=== PATIENT | male | born 1965 | race Hispanic/Latino ===

== ENCOUNTER 2023-09-02 11:42 | Inpatient (IN) | payer OTHER, SELFPAY ==
--- NOTE | 2023-09-02 12:24 | RAD REPORT ---
EXAM DESCRIPTION: Db Single View09/02/2023 12:08 pm CLINICAL HISTORY: Chest pain COMPARISON: none FINDINGS: The lungs appear clear of acute infiltrate. The heart is normal size IMPRESSION: No acute abnormalities displayed
[2023-09-02 12:51] LABS: Absolute Basophils 0.1 K/uL (0-0.5); Absolute Lymphocytes (CBC) 0.9 K/uL (0.7-4.9); Absolute Neutrophil 15.2 K/uL (1.8-8.0); Basophils % 0.3 % (0-1.3); Hematocrit 36.8 % (39.6-49.0); Lymphocytes % 5.1 % (15.3-44.8); MCH 29.4 pg (27.0-35.0); MCHC 32.7 g/dL (32.0-36.0); MCV 90.1 fL (80-100); MPV 7.3 fL (7.6-11.3); Monocytes % 5.7 % (3.3-12.3); Neutrophils % 88.9 % (41.7-73.7); Platelets 372 thou/uL (152-406); RBC Red Blood Cell Count 4.08 M/uL (4.33-5.43); Red Cell Distribution Width 12.5 % (12.1-15.2)
[2023-09-02 12:57] LABS: PT Prothrombin Time 12.7 SECONDS (9.5-12.5); Protime INR 1.16
[2023-09-02 13:14] LABS: ALT/SGPT 16 U/L (16-61); Albumin 3.5 g/dL (3.4-5.0); Albumin/Globulin Ratio 0.7 (1.1-1.8); Alkaline Phosphatase 98 U/L (45-117); Anion Gap 10.2 mEq/L (5.0-15.0); BUN Blood Urea Nitrogen 28 mg/dL (7-18); Bicarbonate 28 mEq/L (21-32); Bilirubin Direct 0.2 mg/dL (0-0.2); Bilirubin Indirect, Calculated 0.6 mg/dL (0.2-0.8); Bilirubin Total 0.8 mg/dL (0.2-1.0); Globulin 4.8 g/dL (2.3-3.5); Glomerular Filtration Rate 48 ml/min (=/>90); Glucose Level 191 mg/dL (74-106); Lipase 37 U/L (13-75); Magnesium 1.9 mg/dL (1.6-2.4); NT PRO-BNP 1099 pg/mL (<125); Potassium 4.2 mEq/L (3.5-5.1); Protein, Total 8.3 g/dL (6.4-8.2); Sodium Level 134 mEq/L (136-145); Troponin High Sensitivity 19.1 pg/mL (<58.9)
[2023-09-02 13:20] LABS: Blood Morphology Comment NOT SEEN (NOT SEEN); Platelet Estimate ADEQ; White Blood Cell Scan OK (OK)
[2023-09-02 13:22] LABS: AST/SGOT < 10 U/L (15-37)
[2023-09-02] MEDS ORDERED: NA CHLORIDE 0.9% 1,000 ML ONE (14:11)
[2023-09-02] MEDS ORDERED: NA CHLORIDE 0.9% 100 ML ONE (14:11)
[2023-09-02] MEDS ORDERED: FAMOTIDINE 20 MG/2 ML VIAL IV ONE (14:11)
[2023-09-02] MEDS ORDERED: PIPERACIL/TAZO 3.375 GM VIAL IV ONE (14:12)
--- NOTE | 2023-09-02 14:50 | EDPHYS ---
Physician Documentation [facility] Name: Johnnie Maldonado Age: 58 yrs Sex: Male : 1965 Arrival Date: 09/02/2023 Time: 11:42 Bed 13 Private MD: ED Physician Salvatore Doherty HPI: 09/01 14:31 This 58 yrs old Male presents to ER via EMS with complaints of Abdominal Pain. maria a 14:31 This 58 yrs old Male presents to ER via EMS with complaints of Abdominal Pain. maria a 14:31 The patient presents with abdominal pain in the upper abdomen, in the lower abdomen, maria a abdominal distention in the upper abdomen, in the lower abdomen. Onset: The symptoms/episode began/occurred 3 day(s) ago. The symptoms do not radiate. Associated signs and symptoms: Pertinent positives: dysuria, nausea. Modifying factors: The symptoms are alleviated by nothing, the symptoms are aggravated by movement, pressure. Severity of pain: At its worst the pain was moderate in the emergency department the pain is unchanged. Historical: - Allergies: 11:54 No Known Allergies; aa5 - PMHx: 11:54 Diabetes mellitus; aa5 11:55 Urinary Incontinence; aa5 - Immunization history:: Adult Immunizations unknown. - Infectious Disease History:: Denies. - Social history:: Smoking status: Patient denies any tobacco usage or history of. - Family history:: not pertinent. ROS: 14:31 Constitutional: Negative for fever, chills, and weight loss, Eyes: Negative for injury, maria a pain, redness, and discharge, ENT: Negative for injury, pain, and discharge, Neck: Negative for injury, pain, and swelling, Cardiovascular: Negative for chest pain, palpitations, and edema, Respiratory: Negative for shortness of breath, cough, wheezing, and pleuritic chest pain, Back: Negative for injury and pain, MS/Extremity: Negative for injury and deformity, Skin: Negative for injury, rash, and discoloration, Neuro: Negative for headache, weakness, numbness, tingling, and seizure, Psych: Negative for depression, anxiety, suicide ideation, homicidal ideation, and hallucinations, Allergy/Immunology: Negative for hives, rash, and allergies, Endocrine: Negative for neck swelling, polydipsia, polyuria, polyphagia, and marked weight changes, Hematologic/Lymphatic: Negative for swollen nodes, abnormal bleeding, and unusual bruising, 14:31 Abdomen/GI: Positive for abdominal pain, of the suprapubic area, right lower quadrant and left lower quadrant, 14:31 : Positive for urinary symptoms, urinary frequency, small amounts, difficulty urinating, Exam: 14:31 Constitutional: This is a well developed, well nourished patient who is awake, alert, maria a and in no acute distress. Head/Face: Normocephalic, atraumatic. Eyes: Pupils equal round and reactive to light, extra-ocular motions intact. Lids and lashes normal. Conjunctiva and sclera are non-icteric and not injected. Cornea within normal limits. Periorbital areas with no swelling, redness, or edema. ENT: Nares patent. No nasal discharge, no septal abnormalities noted. Tympanic membranes are normal and external auditory canals are clear. Oropharynx with no redness, swelling, or masses, exudates, or evidence of obstruction, uvula midline. Mucous membranes moist. Neck: Trachea midline, no thyromegaly or masses palpated, and no cervical lymphadenopathy. Supple, full range of motion without nuchal rigidity, or vertebral point tenderness. No Meningismus. Chest/axilla: Normal chest wall appearance and motion. Nontender with no deformity. No lesions are appreciated. Cardiovascular: Regular rate and rhythm with a normal S1 and S2. No gallops, murmurs, or rubs. Normal PMI, no JVD. No pulse deficits. Respiratory: Lungs have equal breath sounds bilaterally, clear to auscultation and percussion. No rales, rhonchi or wheezes noted. No increased work of breathing, no retractions or nasal flaring. Back: No spinal tenderness. No costovertebral tenderness. Full range of motion. Male : Normal genitalia with no discharge or lesions. Skin: Warm, dry with normal turgor. Normal color with no rashes, no lesions, and no evidence of cellulitis. MS/ Extremity: Pulses equal, no cyanosis. Neurovascular intact. Full, normal range of motion. Neuro: Awake and alert, GCS 15, oriented to person, place, time, and situation. Cranial nerves II-XII grossly intact. Motor strength 5/5 in all extremities. Sensory grossly intact. Cerebellar exam normal. Normal gait. Psych: Awake, alert, with orientation to person, place and time. Behavior, mood, and affect are within normal limits. Vital Signs: 11:53 BP 174 / 109; Pulse 102; Resp 19 S; Temp 99.7(O); Pulse Ox 96% on R/A; Weight 53.98 kg aa5 (R); Height 5 ft. 3 in. (R); 13:00 BP 174 / 109; Pulse 116; Resp 18; Pulse Ox 100% ; cp4 14:00 BP 188 / 109; Pulse 121; Resp 18; Pulse Ox 100% ; cp4 15:00 BP 188 / 114; Pulse 115; Resp 18; Pulse Ox 100% ; cp4 16:00 BP 184 / 109; Pulse 114; Resp 18; Pulse Ox 99% ; cp4 11:53 Body Mass Index 21.08 (53.98 kg, 160.02 cm) aa5 MDM: 11:55 Patient medically screened. maria a 14:41 Differential diagnosis: bowel obstruction, Cholelithiasis, diverticulitis, gastritis, maria a non-specific abd pain, pancreatitis, Peptic Ulcer Disease, Prostatitis, Pyelonephritis, Ureterolithiasis. Data reviewed: vital signs, nurses notes, EMS record, lab test result(s), EKG, radiologic studies, CT scan, plain films. Consideration of Admission/Observation Patient was admitted/placed on observation. Escalation of care including admission/observation considered. I considered the following discharge prescriptions or medication management in the emergency department Medications were administered in the Emergency Department. See MAR. Independent interpretation of the following test(s) in the Emergency Department EKG: See my EKG interpretation above. Test considered but Not performed: Ultrasound no abd usg. Historians other than the Patient: pt well informed. Care significantly affected by the following chronic conditions: Diabetes, urinary retention. Counseling: I had a detailed discussion with the patient and/or guardian regarding the historical points, exam findings, and any diagnostic results supporting the discharge/admit diagnosis, lab results, radiology results, the need for further work-up and treatment in the hospital. 09/01 11:57 Order name: Basic Metabolic Panel; Complete Time: 13:42 [facility] 09/01 11:57 Order name: CBC with Diff; Complete Time: 13:42 [facility] 09/01 11:57 Order name: LFT's; Complete Time: 13:42 [facility] 09/01 11:57 Order name: Magnesium; Complete Time: 13:42 [facility] 09/01 11:57 Order name: NT PRO-BNP; Complete Time: 13:42 [facility] 09/01 11:57 Order name: PT-INR; Complete Time: 13:42 [facility] 09/01 11:57 Order name: Troponin HS; Complete Time: 13:42 [facility] 09/01 11:57 Order name: Lipase; Complete Time: 13:42 [facility] 09/01 11:57 Order name: Urinalysis w/ reflexes [facility] 09/01 12:57 Order name: CBC Smear Scan; Complete Time: 13:42 [facility] 09/01 15:32 Order name: Urine Culture [facility] 09/01 15:42 Order name: Urinalysis w/ reflexes [facility] 09/01 11:57 Order name: XRAY Chest (1 view); Complete Time: 13:42 [facility] 09/01 11:57 Order name: CT Abd/Pelvis - IV Contrast Only [facility] 09/01 11:57 Order name: EKG; Complete Time: 11:57 [facility] 09/01 11:57 Order name: Cardiac monitoring; Complete Time: 12:28 [facility] 09/01 11:57 Order name: EKG - Nurse/Tech; Complete Time: 12:28 [facility] 09/01 11:57 Order name: IV Saline Lock; Complete Time: 13:48 [facility] 09/01 11:57 Order name: Labs collected and sent; Complete Time: 13:48 [facility] 09/01 11:57 Order name: O2 Per Protocol; Complete Time: 12:28 [facility] 09/01 11:57 Order name: O2 Sat Monitoring; Complete Time: 12:28 [facility] Administered Medications: 14:00 Drug: Piperacillin-Tazobactam IVPB 3.375 grams IVPB once over 60 mins; (mix in NS 100 cp4 mL) Route: IVPB; Infused Over: 60 mins; Site: left forearm; 15:10 Follow up: Response: No adverse reaction; IV Status: Completed infusion cp4 14:15 Drug: NS 0.9% IV 1000 ml IV at 1 bolus Per protocol; 1000 mL bolus Route: IV; Rate: 1 cp4 bolus; Site: left forearm; 15:09 Follow up: Response: No adverse reaction; IV Status: Completed infusion cp4 14:15 Drug: Famotidine IVP 20 mg IVP once; dilute with 10 mL 0.9% NaCl; give over 2 minutes cp4 Route: IVP; Site: left forearm; 15:22 Follow up: Response: No adverse reaction cp4 14:15 Drug: NS 0.9% IV 1000 ml IV at 125 ml/hr continuous Route: IV; Rate: 125 ml/hr; Site: cp4 left forearm; 15:24 Drug: Rocephin IV 1 grams IV at per protocol once; Given slow IV push per pharmacy cp4 instructions Route: IV; Rate: per protocol; Site: left forearm; 15:52 Follow up: Response: No adverse reaction; IV Status: Completed infusion cp4 15:24 Drug: Flomax PO 0.4 mg PO Per protocol Route: PO; cp4 15:52 Follow up: Response: No adverse reaction cp4 Disposition Summary: 09/02/23 14:50 Hospitalization Ordered Notes: Hospitalization Status: Observation maria a Provider: Abelino Taylor cha Location: Telemetry/MedSurg (observation) maria a Condition: Fair maria a Problem: new maria a Symptoms: have improved maria a Bed/Room Type: Standard [facility] Room Assignment: 208(09/02/23 16:07) aa5 Diagnosis - Abdominal pain, Generalized maria a - Other retention of urine maria a - Fever, unspecified maria a - Weakness maria a - Elevated white blood cell count maria a Forms: - Medication Reconciliation Form maria a - SBAR form maria a - Leadership Thank You Letter maria a Signatures: Dispatcher [employer] Salvatore Garcia MD MD cha Calderon, Audri, RN RN aa5 Veronica Gonzalez cp4 Corrections: (The following items were deleted from the chart) 11:57 11:57 Abdomen Pelvis W Con+CT.RAD.BRZ ordered. MARGARETAR EDAR 16:01 14:50 maria a aa5 16:07 16:01 [facility] aa5 aa5
--- NOTE | 2023-09-02 14:50 | ER ---
Nurse's Notes [facility] Name: Johnnie Maldonado Age: 58 yrs Sex: Male : 1965 Arrival Date: 09/02/2023 Time: 11:42 Bed 13 Private MD: Diagnosis: Abdominal pain, Generalized;Other retention of urine;Fever, unspecified;Weakness;Elevated white blood cell count Presentation: 09/01 11:53 Chief complaint: Patient states: abd pain, seen in [place] ER recently. [facility] aa5 reports FSBG 176. 11:53 Acuity: DONTE 3 aa5 11:53 Method Of Arrival: EMS: [facility] aa5 11:53 Coronavirus screen: At this time, the client does not indicate any symptoms associated aa5 with coronavirus-19. Ebola Screen: Patient denies travel to an Ebola-affected area in the 21 days before illness onset. Initial Sepsis Screen: Does the patient meet any 2 criteria? HR > 90 bpm. Does the patient have a suspected source of infection? No. Patient's initial sepsis screen is negative. Risk Assessment: Do you want to hurt yourself or someone else? Patient reports no desire to harm self or others. Onset of symptoms was 2023. Historical: - Allergies: 11:54 No Known Allergies; aa5 - PMHx: 11:54 Diabetes mellitus; aa5 11:55 Urinary Incontinence; aa5 - Immunization history:: Adult Immunizations unknown. - Infectious Disease History:: Denies. - Social history:: Smoking status: Patient denies any tobacco usage or history of. - Family history:: not pertinent. Screenin:00 [facility] ED Fall Risk Assessment (Adult) History of falling in the last 3 months, cp4 including since admission No falls in past 3 months (0 pts) Confusion or Disorientation No (0 pts) Intoxicated or Sedated No (0 pts) Impaired Gait No (0 pts) Mobility Assist Device Used No (0 pt) Altered Elimination No (0 pt) Score/Fall Risk Level 0 - 2 = Low Risk Oriented to surroundings, Maintained a safe environment, Assessed \T\ reinforced patient's understanding of fall precautions, Hourly rounding (assess needs \T\ fall precautionary measures) done. Abuse screen: Denies threats or abuse. Nutritional screening: No deficits noted. Tuberculosis screening: No symptoms or risk factors identified. Assessment: 14:00 General: Appears distressed, Behavior is appropriate for age, agitated, anxious. Pain: cp4 Pain currently is 10 out of 10 on a pain scale. 14:00 GI: Bowel sounds present X 4 quads. Abd is rigid in right lower quadrant and left lower cp4 quadrant. : Last void was September 01, 2023. Bladder is distended. Vital Signs: 11:53 BP 174 / 109; Pulse 102; Resp 19 S; Temp 99.7(O); Pulse Ox 96% on R/A; Weight 53.98 kg aa5 (R); Height 5 ft. 3 in. (R); 13:00 BP 174 / 109; Pulse 116; Resp 18; Pulse Ox 100% ; cp4 14:00 BP 188 / 109; Pulse 121; Resp 18; Pulse Ox 100% ; cp4 15:00 BP 188 / 114; Pulse 115; Resp 18; Pulse Ox 100% ; cp4 16:00 BP 184 / 109; Pulse 114; Resp 18; Pulse Ox 99% ; cp4 11:53 Body Mass Index 21.08 (53.98 kg, 160.02 cm) aa5 ED Course: 11:53 Patient arrived in ED. aa5 11:53 Arm band placed on Patient placed in an exam room, on a stretcher. aa5 11:55 Salvatore Doherty MD is Attending Physician. [facility] 11:56 Triage completed. aa5 11:58 Veronica Gonzalez is Primary Nurse. cp4 12:10 XRAY Chest (1 view) In Process Unspecified. EDMS 13:53 CT Abd/Pelvis - IV Contrast Only In Process Unspecified. EDMS 14:00 Placed in gown. Bed in low position. Call light in reach. Side rails up X2. Provided cp4 Education on: bladder distention and jensen catheter.. 14:00 No provider procedures requiring assistance completed. Inserted saline lock: 22 gauge cp4 in left forearm, using aseptic technique. Missed attempt(s): 20 gauge in right antecubital area. 14:00 Initial lab(s) drawn, by al, sent to lab. Urine collected: Jensen catheter specimen. cp4 Jensen cath inserted, using sterile technique, 16 Fr., by me, balloon inflated, urine specimen collected. 14:49 Abelino Taylor MD is Hospitalizing Provider. maria a 17:16 Patient admitted, IV remains in place. cp4 Administered Medications: 14:00 Drug: Piperacillin-Tazobactam IVPB 3.375 grams IVPB once over 60 mins; (mix in NS 100 cp4 mL) Route: IVPB; Infused Over: 60 mins; Site: left forearm; 15:10 Follow up: Response: No adverse reaction; IV Status: Completed infusion cp4 14:15 Drug: NS 0.9% IV 1000 ml IV at 1 bolus Per protocol; 1000 mL bolus Route: IV; Rate: 1 cp4 bolus; Site: left forearm; 15:09 Follow up: Response: No adverse reaction; IV Status: Completed infusion cp4 14:15 Drug: Famotidine IVP 20 mg IVP once; dilute with 10 mL 0.9% NaCl; give over 2 minutes cp4 Route: IVP; Site: left forearm; 15:22 Follow up: Response: No adverse reaction cp4 14:15 Drug: NS 0.9% IV 1000 ml IV at 125 ml/hr continuous Route: IV; Rate: 125 ml/hr; Site: cp4 left forearm; 15:24 Drug: Rocephin IV 1 grams IV at per protocol once; Given slow IV push per pharmacy cp4 instructions Route: IV; Rate: per protocol; Site: left forearm; 15:52 Follow up: Response: No adverse reaction; IV Status: Completed infusion cp4 15:24 Drug: Flomax PO 0.4 mg PO Per protocol Route: PO; cp4 15:52 Follow up: Response: No adverse reaction cp4 Medication: 14:00 VIS not applicable for this client. cp4 Output: 15:00 Urine: 1000ml (Jensen); Total: 1000ml. cp4 15:00 Urine: 1000ml (Jensen); Total: 2000ml. cp4 15:00 Urine: 1000ml (Jensen); Total: 3000ml. cp4 17:07 Urine: 2000ml (Jensen); Total: 5000ml. cp4 Outcome: 14:50 Decision to Hospitalize by Provider. maria a 17:16 Admitted to Med/surg accompanied by tech, via wheelchair, with chart, cp4 17:16 Condition: stable 17:16 Instructed on the need for admit, Demonstrated understanding of instructions, follow-up care, 17:17 Patient left the ED. cp4 Signatures: Dispatcher [employer] Salvatore Garcia MD MD cha Calderon, Audri, RN RN aa5 Veronica Gonzalez cp4 Corrections: (The following items were deleted from the chart) 11:56 11:53 Chief complaint: Patient states: abd pain, seen in [facility] recently. aa5 aa5
--- NOTE | 2023-09-02 15:11 | RAD REPORT ---
EXAM DESCRIPTION: CT - Abdomen Pelvis W Contrast - 09/02/2023 1:51 pm CLINICAL HISTORY: ABD PAIN COMPARISON: No comparisons TECHNIQUE: Thin cut axial CT imaging of the abdomen and pelvis was performed following intravenous a dministration of 75 mL Isovue 300. Multiplanar reformats were generated and reviewed. All CT scans are performed using dose optimization technique as appropriate and may include automated exposure control or mA/KV adjustment according to patient size. FINDINGS: No suspicious findings in the lung bases. The liver, spleen, adrenal glands, and pancreas show no suspicious findings. Gallbladder and biliary tree are also without suspicious finding. Moderate left and severe right hydroureteronephrosis. Moderately pronounced urothelial enhancement al halle the right renal pelvis and right more than left proximal ureter. Perinephric edema along the lowe r poles of both kidneys. Mildly heterogeneous enhancement of the cortex at the left lower pole. Left lower pole 4.8 x 4.7 cm cystic lesion with thin septal enhancement. Simple appearing right lower pole 1.5 cm cyst. No radiopaque calculi No dilated bowel loops or bowel wall thickening. No free air, free fluid or inflammatory stranding. N o hernia, mass or bulky lymphadenopathy. The urinary bladder is markedly distended, without focal wal l abnormalities. Healing lateral left tenth rib fracture. No other suspicious bony findings. IMPRESSION: Bilateral hydroureteronephrosis and markedly distended urinary bladder, findings which m ay relate to retrograde ureteral reflux. No evidence of obstructing calculi. Bilateral perinephric edema along the lower poles. Moderately pronounced urothelial enhancement along the right renal pelvis and right more than left proximal ureter. Subtle heterogeneous enhancement of the left lower pole renal cortex. Findings raise concern for pyelonephritis in the appropriate clini breanne setting. Other incidental findings as above.
[2023-09-02] MEDS ORDERED: TAMSULOSIN 0.4 MG SR CAP ONE (15:13)
[2023-09-02] MEDS ORDERED: CEFTRIAXONE 1000 MG/VIAL ONE (15:13)
[2023-09-02 15:29] LABS: Specific Gravity 1.009 (1.005-1.030); Sqamous Epithelial None Seen /HPF (None Seen); Urine Bacteria <20 /HPF (<20); Urine Bilirubin NEGATIVE (Negative); Urine Blood 3+ (Negative); Urine Clarity Turbid (Clear); Urine Color Colorless (Yellow); Urine Crystals Unidentified Few /HPF (None Seen); Urine Culture Reflex Order REFLEXED; Urine Glucose TRACE (Negative); Urine Ketones NEGATIVE (Negative); Urine Microscopic Reflex YN ORDER UMIC; Urine Nitrite NEGATIVE (Negative); Urine Protein NEGATIVE (Negative); Urine RBC 21-50 /HPF (None Seen); Urine Urobilinogen Normal (Normal); Urine WBC 20-50 /HPF (<5); Urine pH 7.5 (5.0-7.0)
[2023-09-02] MEDS ORDERED: METOPROLOL TARTRATE 5 MG/5 ML INJ IV PRN (16:20)
[2023-09-02] MEDS ORDERED: ONDANSETRON 4 MG/2 ML VIAL IV PRN (16:20)
--- NOTE | 2023-09-02 16:27 | P.HP ---
Certification for Inpatient With expected LOS: <2 Midnights Patient will require the following post-hospital care: None Practitioner: I am a practitioner with admitting privileges, knowledge of patient current condition, hospital course, and medical plan of care. Services: Services provided to patient in accordance with Admission requirements found in Title 42 Section 412.3 of the Code of Federal Regulations <Audrey Cheung - Last Filed: 09/02/23 19:05> Patient History Date of Service: 09/02/23 Reason for admission: urinary retention History of Present Illness: Johnnie Maldonado is a 58 year old male with Pmhx Diabetes mellitus- NIDDM, urinary incontinence/retention who presents to the ED with chief complaint of abdominal pain and not being able to urinate for three days. He reports going to the [facility] ED on Wednesday (08/22) and being discharged home with a jensen catheter and flomax. He was then in half-way on (08/25) at which time the jensen catheter was "urinated out" per patient's statement. He has been a week without the catheter and now presents with abdominal pain and bladder distention. CT abd/pelvis reports "Moderate left and severe right hydroureteronephrosis. Moderately pronounced urothelial enhancement along the right renal pelvis and right more than left proximal ureter. Perinephric edema along the lower poles of both kidneys. Mildly heterogeneous enhancement of the cortex at the left lower pole. Left lower pole 4.8 x 4.7 cm cystic lesion with thin septal enhancement. Simple appearing right lower pole 1.5 cm cyst. No radiopaque calculi. Bilateral hydroureteronephrosis and markedly distended urinary bladder, findings which may relate to retrograde ureteral reflux. No evidence of obstructing calculi. Bilateral perinephric edema along the lower poles. Moderately pronounced urothelial enhancement along the right renal pelvis and right more than left proximal ureter. Subtle heterogeneous enhancement of the left lower pole renal cortex. Findings raise concern for pyelonephritis in the appropriate clinical setting." Initial vitals: BP 174 / 109; Pulse 102; Resp 19 S; Temp 99.7(O); Pulse Ox 96% on R/A; Laboratory evaluation Na 134, K 4.2, BUN/creatinine 28/1.66, GFR 48, serum glucose 191, BNP 1099 Johnnie will be admitted to hospitalist service for further evaluation and treatment of bilateral hydroureteronephrosis and UTI. - Past Medical/Surgical History -: Diabetes mellitusNIDDM -: Urinary incontinence -: Urinary retention Past Surgical History: Reviewed- Non-Contributory - Family History Family History: Reviewed- Non-Contributory - Social History Smoking Status: Never smoker Alcohol use: No CD- Drugs: No <Audrey Cheung - Last Filed: 09/02/23 19:05> Date of Service: 09/02/23 <Abelino Taylor - Last Filed: 09/02/23 22:25> Allergies No Known Allergies Allergy (Unverified 09/02/23 16:25) Home Medications: NK [No Home Meds] 09/02/23 Review of Systems Gastrointestinal: Abdominal Pain, Distention Genitourinary: Dysuria, Retention <Audrey Cheung - Last Filed: 09/02/23 19:05> Physical Examination - Physical Exam General: Alert, Oriented x3, Mild distress HEENT: Atraumatic, Normocephalic, PERRLA Neck: Supple, 2+ carotid pulse no bruit, JVD not distended Respiratory: Clear to auscultation bilaterally, Normal air movement Cardiovascular: No edema, Normal S1 S2, Irregular heart rate/rhythm (tachycardic) Capillary refill: <2 Seconds Gastrointestinal: Hypoactive Musculoskeletal: No swelling Integumentary: No rashes Neurological: Normal speech, Normal tone Urinary: Jensen catheter - Studies Laboratory Data (last 24 hrs) 09/02/23 09/02/23 09/02/23 12:40 12:40 12:40 WBC 17.10 H Hgb 12.0 L Hct 36.8 L Plt Count 372 PT 12.7 H INR 1.16 Sodium 134 L Potassium 4.2 BUN 28 H Creatinine 1.66 H Glucose 191 H Magnesium 1.9 Total Bilirubin 0.8 AST < 10 L ALT 16 Alkaline Phosphatase 98 Lipase 37 <Audrey Cheung - Last Filed: 09/02/23 19:05> - Studies Laboratory Data (last 24 hrs) 09/02/23 09/02/23 09/02/23 12:40 12:40 12:40 WBC 17.10 H Hgb 12.0 L Hct 36.8 L Plt Count 372 PT 12.7 H INR 1.16 Sodium 134 L Potassium 4.2 BUN 28 H Creatinine 1.66 H Glucose 191 H Magnesium 1.9 Total Bilirubin 0.8 AST < 10 L ALT 16 Alkaline Phosphatase 98 Lipase 37 <Abelino Taylor - Last Filed: 09/02/23 22:25> Assessment and Plan - Plan Assessment and Plan Bilateral hydroureteronephrosis Severe urinary retention Urinary tract infection ELIEZER Leukocytosis CT abd/pelvis reports "Moderate left and severe right hydroureteronephrosis" Tamulosin Rocephin Q 12 hr zosyn given in the ED Gentle IVF Jensen catheter in place- UOP > 5000, clear urine Pain control-[place], morphine follow urine cultures Recheck BMP at 1999 BNP 1099, BUN/creatinine 28/1.66, GFR 48, WBC 17.1 Hypertensive Initial BP 174/109 Hydralazine PRN Tachycardic likely secondary to fever Continuous telemetry Temp 99.9/99.7 Diabetes Mellitus Accucheck with SSI Serum glucose 191 DVT ppx heparin Full code LOS 2 days Discharge Plan: Home Plan to discharge in: 48 Hours - Advance Directives Does patient have a Living Will: No Does patient have a Durable POA for Healthcare: No <Audrey Cheung - Last Filed: 09/02/23 19:05> - Plan Patient seen in ED with TANK CAR MECHANIC Jonatan. Agree with plan of care as noted above with following additions/corrections: Pt with leukocytosis, tachycardia, and concern for UTI; no lactate drawn unclear / unlikely sepsis. tachycardia, leukocytosis, eliezer secondary to significant urinary retention. pt already noted to have nearly 3L UOP within 3hrs of jensen placement repeat bmp in evening, monitor for post-obstructive uropathy/diuresis continue IVF pain control empiric antibiotic Pt reports long history of urinary retention, dating back to at least 2013 - saw urology for prostate biopsy unable to answer besides "i don't know" when asked about what workup/treatment has been done in the past, and when asked what is the root cause eventually does agree that he has been told he has an enlarged prostate. Prescribed medications at [facility] last week when seen for similar issue and dc'd with meds and jensen. For unclear reasons, patient removed jensen last week never followed up states he was kicked out of wherever he was living and was unable to get his meds - unable to tell me any of names f/u urine culture anticipate dc home in ~2-3 days <Abelino Taylor - Last Filed: 09/02/23 22:25>
[2023-09-02] MEDS ORDERED: MORPHINE 4 MG/ML SYR IV PRN (16:28)
[2023-09-02] MEDS: INSULIN REGULAR (HUMAN) 100 UNIT/ML SQ SCH ×2 (16:30→22:24)
[2023-09-02] MEDS: HEPARIN 5000 UNIT/ML 1 ML VIAL SQ SCH (17:00)
[2023-09-02 17:38] VITALS: BMI 21.0
[2023-09-02] MEDS: NA CHLORIDE 0.9% 1,000 ML IV SCH (17:49)
[2023-09-02] MEDS: HYDRALAZINE HCL 20 MG/ML VIAL IV PRN (18:04)
[2023-09-02] MEDS: INSULIN REGULAR (HUMAN) 100 UNIT/ML ONE (18:09)
[2023-09-02] MEDS: ACETAMINOPHEN 325 MG TABLET PO PRN (18:12)
[2023-09-02] MEDS: CEFTRIAXONE 1,000 MG in NA CHLORIDE 0.9% 50 ML IVPB SCH (20:28)
[2023-09-02 20:47] LABS: Anion Gap 8.8 mEq/L (5.0-15.0); Magnesium 1.5 mg/dL (1.6-2.4); Potassium 3.8 mEq/L (3.5-5.1)
[2023-09-03 08:16] LABS: Absolute Basophils 0.1 K/uL (0-0.5); Absolute Lymphocytes (CBC) 1.2 K/uL (0.7-4.9); Absolute Monocytes 1.2 K/uL (0.1-1.3); Absolute Neutrophil 14.1 K/uL (1.8-8.0); Basophils % 0.3 % (0-1.3); Eosinophils % 0.1 % (0-4.4); Hematocrit 28.8 % (39.6-49.0); Hemoglobin 10.1 g/dL (13.6-17.9); Lymphocytes % 7.1 % (15.3-44.8); MCH 30.9 pg (27.0-35.0); MCHC 34.9 g/dL (32.0-36.0); MCV 88.4 fL (80-100); Monocytes % 7.2 % (3.3-12.3); Neutrophils % 85.3 % (41.7-73.7); Platelets 295 thou/uL (152-406); RBC Red Blood Cell Count 3.26 M/uL (4.33-5.43); Red Cell Distribution Width 12.4 % (12.1-15.2)
[2023-09-03] MEDS: TAMSULOSIN 0.4 MG SR CAP PO SCH (08:19)
[2023-09-03 08:37] LABS: Albumin 2.4 g/dL (3.4-5.0); Albumin/Globulin Ratio 0.6 (1.1-1.8); Alkaline Phosphatase 69 U/L (45-117); Anion Gap 6.3 mEq/L (5.0-15.0); BUN Blood Urea Nitrogen 15 mg/dL (7-18); Bicarbonate 29 mEq/L (21-32); Bilirubin Total 0.7 mg/dL (0.2-1.0); Globulin 3.9 g/dL (2.3-3.5); Glomerular Filtration Rate 102 ml/min (=/>90); Glucose Level 134 mg/dL (74-106); Magnesium 1.2 mg/dL (1.6-2.4); Potassium 3.3 mEq/L (3.5-5.1); Protein, Total 6.3 g/dL (6.4-8.2); Sodium Level 132 mEq/L (136-145)
[2023-09-03 08:41] LABS: ALT/SGPT < 14 U/L (16-61); AST/SGOT < 10 U/L (15-37)
[2023-09-03] MEDS: POTASSIUM CL SA 10 MEQ TAB PO ONE (10:51)
[2023-09-03] MEDS: Magnesium Sulfate 2gm IVPB 2 G/50 ML BAG IV ONE (10:51)
--- NOTE | 2023-09-03 17:05 | P.PN ---
Date of Service: 09/03/23 Subjective Awake and feeling better this morning This afternoon became febrile and tachycardic Continue IV antibiotics and IV fluids ROS 10 point ROS as noted above, otherwise negative Physical Exam General: AAOx3, NAD HEENT: Atraumatic, Normocephalic, PERRLA Neck: Supple, 2+ carotid pulse no bruit, JVD not distended Respiratory: Clear to auscultation bilaterally, symmetric chest wall movement Cardiovascular: No edema, S1 S2 present, Irregular heart rate/rhythm (tachycardic) Capillary refill: <2 Seconds Gastrointestinal: Bowel sounds present, soft and benign on palpation Musculoskeletal: No swelling, 2+ peripheral pulses present Integumentary: No rashes Neurological: Normal speech, Normal tone Urinary: Bae catheter Vitals Reviewed Problem list Bilateral hydroureteronephrosis Severe urinary retention Urinary tract infection ELIEZER Leukocytosis Hypomagnesemia Hypokalemia Hypertensive Tachycardic likely secondary to fever Diabetes Mellitus Assessment and Plan Bilateral hydroureteronephrosis Severe urinary retention Urinary tract infection ELIEZER- resolved Leukocytosis Hypomagnesemia CT abd/pelvis reports "Moderate left and severe right hydroureteronephrosis" Tamulosin Rocephin Q12 hr zosyn given in the ED Continue Gentle IVF Bae catheter in place- UOP 850 Pain control-[place], morphine Follow urine cultures- NGTD Recheck BMP at 1999 Initial BNP 1099, BUN/creatinine 28/1.66, GFR 48, WBC 17.1 WBC 16.6-slight improvement Magnesium 1.2 Hypokalemia Potassium 3.3 Replace as needed Hypertensive Initial BP 174/109 Hydralazine PRN Tachycardic likely secondary to fever Continuous telemetry Temp 101.3 Tylenol PRN Diabetes Mellitus Accucheck with SSI Serum glucose 134 DVT ppx heparin Full code LOS 2 days Discharge Plan: Home
[2023-09-03 17:20] LABS: Magnesium 1.7 mg/dL (1.6-2.4); Potassium 4.1 mEq/L (3.5-5.1)
[2023-09-03] MEDS: NA CHLORIDE 0.9% 1,000 ML IV SCH (17:33)
[2023-09-03 19:42] LABS: Absolute Eosinophils 0.1 K/uL (0-0.5); Absolute Lymphocytes (CBC) 0.9 K/uL (0.7-4.9); Absolute Monocytes 1.3 K/uL (0.1-1.3); Absolute Neutrophil 12.4 K/uL (1.8-8.0); Basophils % 0.2 % (0-1.3); Eosinophils % 0.5 % (0-4.4); Hematocrit 27.1 % (39.6-49.0); Hemoglobin 9.5 g/dL (13.6-17.9); Lymphocytes % 6.1 % (15.3-44.8); MCH 30.9 pg (27.0-35.0); MCHC 34.9 g/dL (32.0-36.0); MCV 88.6 fL (80-100); MPV 7.2 fL (7.6-11.3); Monocytes % 8.6 % (3.3-12.3); Neutrophils % 84.6 % (41.7-73.7); Platelets 284 thou/uL (152-406); RBC Red Blood Cell Count 3.06 M/uL (4.33-5.43); Red Cell Distribution Width 12.3 % (12.1-15.2)
[2023-09-04] MEDS: HYDROCODONE/APAP 5/325 MG TAB PO PRN (00:26)
--- NOTE | 2023-09-04 07:51 | P.PN ---
Date of Service: 09/04/23 Subjective Awake in breakfast this morning Reports having no insurance or income to support follow-up visit to urology or flower buncher or picker medications medications Afebrile tonight, hemodynamically stable ROS 10 point ROS as noted above, otherwise negative Physical Exam General: AAOx3, NAD, conversing well HEENT: Atraumatic, Normocephalic, PERRLA Neck: Supple, 2+ carotid pulse no bruit, JVD not distended Respiratory: Clear to auscultation bilaterally, symmetric chest wall movement, on RA Cardiovascular: No edema, S1 S2 present, Irregular heart rate/rhythm (mild tachycardia) Capillary refill: <2 Seconds Gastrointestinal: normal active Bowel sounds, soft and benign on palpation Musculoskeletal: No swelling, 2+ peripheral pulses present Integumentary: No rashes Neurological: Normal speech, Normal tone Urinary: Jensen catheter Vitals Reviewed Problem list Bilateral hydroureteronephrosis Severe urinary retention Urinary tract infection ELIEZER Leukocytosis Hypomagnesemia Hypokalemia Hypertensive Tachycardic likely secondary to fever Diabetes Mellitus Assessment and Plan Bilateral hydroureteronephrosis Severe urinary retention Urinary tract infection ELIEZER- resolved Leukocytosis- improved Hypomagnesemia CT abd/pelvis reports "Moderate left and severe right hydroureteronephrosis" Tamulosin Rocephin Q12 hr zosyn given in the ED Continue Gentle IVF Jensen catheter in place- UOP 850 Pain control-[place], morphine Follow urine cultures- mixed pawan Initial BNP 1099, BUN/creatinine 28/1.66, GFR 48, WBC 17.1 WBC 13.3- improving will need to discharge with jensen catheter Electrolyte imbalance Hypokalemia Hypomagnesemia Hyponatremia Potassium 3.6 Magnesium 1.5- replete Sodium 131-gentle IV fluids Replace as needed Hypertensive Initial BP 174/109 stable Hydralazine PRN Tachycardic likely secondary to fever Continuous telemetry afebrile OVN Tylenol PRN Diabetes Mellitus Accucheck with SSI Serum glucose 248 Semglee added DVT ppx heparin Full code Dispo: likely dc tomorrow Discharge Plan: Home
[2023-09-04 08:36] LABS: Absolute Eosinophils 0.3 K/uL (0-0.5); Absolute Lymphocytes (CBC) 0.9 K/uL (0.7-4.9); Absolute Monocytes 0.9 K/uL (0.1-1.3); Absolute Neutrophil 11.1 K/uL (1.8-8.0); Basophils % 0.3 % (0-1.3); Eosinophils % 2.3 % (0-4.4); Hematocrit 29.8 % (39.6-49.0); MCH 30.2 pg (27.0-35.0); MCHC 33.7 g/dL (32.0-36.0); MCV 89.6 fL (80-100); MPV 7.1 fL (7.6-11.3); Monocytes % 6.7 % (3.3-12.3); Neutrophils % 83.7 % (41.7-73.7); Platelets 314 thou/uL (152-406); RBC Red Blood Cell Count 3.32 M/uL (4.33-5.43); Red Cell Distribution Width 12.4 % (12.1-15.2)
[2023-09-04 08:49] LABS: Anion Gap 6.6 mEq/L (5.0-15.0); Magnesium 1.5 mg/dL (1.6-2.4); Potassium 3.6 mEq/L (3.5-5.1)
[2023-09-04] MEDS: INSULIN GLARGINE 100 UNIT/ML SQ SCH (20:46)
[2023-09-05] MEDS: MORPHINE 2 MG/ML SYR IV PRN (03:24)
[2023-09-05 03:42] LABS: Absolute Basophils 0.1 K/uL (0-0.5); Absolute Eosinophils 0.4 K/uL (0-0.5); Absolute Lymphocytes (CBC) 0.7 K/uL (0.7-4.9); Absolute Monocytes 0.9 K/uL (0.1-1.3); Absolute Neutrophil 7.8 K/uL (1.8-8.0); Basophils % 0.7 % (0-1.3); Eosinophils % 3.9 % (0-4.4); Hematocrit 27.1 % (39.6-49.0); Hemoglobin 9.6 g/dL (13.6-17.9); Lymphocytes % 7.2 % (15.3-44.8); MCH 31.1 pg (27.0-35.0); MCHC 35.3 g/dL (32.0-36.0); MCV 88.2 fL (80-100); MPV 7.9 fL (7.6-11.3); Monocytes % 9.1 % (3.3-12.3); Neutrophils % 79.1 % (41.7-73.7); Nucleated Red Blood Cells % 0.1 % (0-0); Platelets 315 thou/uL (152-406); RBC Red Blood Cell Count 3.08 M/uL (4.33-5.43); Red Cell Distribution Width 12.4 % (12.1-15.2)
[2023-09-05 03:48] LABS: Anion Gap 5.8 mEq/L (5.0-15.0); Magnesium 1.2 mg/dL (1.6-2.4); Phosphorus 2.4 mg/dL (2.5-4.9); Potassium 3.8 mEq/L (3.5-5.1)
[2023-09-05] MEDS: Magnesium Sulfate 2gm IVPB 2 G/50 ML BAG IV ONE (04:26)
[2023-09-05] MEDS: POTASS/SODIUM PHOSPHATE 1 PKT POWD.PACK PO SCH (08:38)
[2023-09-05] MEDS: INSULIN REGULAR (HUMAN) 100 UNIT/ML SQ SCH (12:13)
--- NOTE | 2023-09-05 15:51 | P.PN ---
Date of Service: 09/05/23 Subjective Awake and feeling well No new complaints Monitoring electrolytes imbalance ROS 10 point ROS as noted above, otherwise negative Physical Exam General: No acute distress, alert and oriented x 3, comfortable HEENT: Atraumatic, Normocephalic, PERRLA Neck: Supple, 2+ carotid pulse no bruit, JVD not distended Respiratory: symmetric chest wall movement, bilaterally clear breath sounds on RA Cardiovascular: normal S1 S2 present, regular rate and rhythm Capillary refill: <2 Seconds Gastrointestinal: normal active Bowel sounds, soft and benign on palpation Musculoskeletal: No swelling, 2+ peripheral pulses present Integumentary: No rashes Neurological: Normal speech, Normal tone Urinary: Jensen catheter Vitals Reviewed Problem list Bilateral hydroureteronephrosis Severe urinary retention Urinary tract infection ELIEZER Leukocytosis Hypomagnesemia Hypokalemia Hypertensive Tachycardic likely secondary to fever Diabetes Mellitus Assessment and Plan Bilateral hydroureteronephrosis Severe urinary retention Urinary tract infection ELIEZER- resolved Leukocytosis- Resolved Hypomagnesemia CT abd/pelvis reports "Moderate left and severe right hydroureteronephrosis" Tamulosin Rocephin Q12 hr zosyn given in the ED Continue Gentle IVF Jensen catheter in place- UOP 1650 09/03 Pain control-[place], morphine Follow urine cultures- mixed pawan Initial BNP 1099, BUN/creatinine 28/1.66, GFR 48, WBC 17.1 WBC 9.9- improved will need to discharge with jensen catheter Electrolyte imbalance Hypokalemia Hypomagnesemia Hyponatremia Potassium 3.8 Magnesium 1.2- replete Sodium 131 Replace as needed Stopped IVF Hypertensive Initial BP 174/109 stable Hydralazine PRN Tachycardic likely secondary to fever Continuous telemetry afebrile OVN Tylenol PRN Diabetes Mellitus Accucheck with SSI Serum glucose 286 A1C pending Semglee added DVT ppx heparin Full code Discharge Plan: discharge in the AM
[2023-09-05] MEDS: INSULIN GLARGINE 100 UNIT/ML SQ SCH (21:52)
[2023-09-06 03:44] LABS: Absolute Eosinophils 0.3 K/uL (0-0.5); Absolute Lymphocytes (CBC) 1.2 K/uL (0.7-4.9); Absolute Monocytes 0.9 K/uL (0.1-1.3); Absolute Neutrophil 6.2 K/uL (1.8-8.0); Basophils % 0.5 % (0-1.3); Eosinophils % 3.2 % (0-4.4); Hematocrit 28.7 % (39.6-49.0); Hemoglobin 10.1 g/dL (13.6-17.9); Lymphocytes % 13.6 % (15.3-44.8); MCH 31.2 pg (27.0-35.0); MCHC 35.4 g/dL (32.0-36.0); MCV 88.2 fL (80-100); Monocytes % 10.5 % (3.3-12.3); Neutrophils % 72.2 % (41.7-73.7); Platelets 389 thou/uL (152-406); RBC Red Blood Cell Count 3.25 M/uL (4.33-5.43); Red Cell Distribution Width 12.6 % (12.1-15.2)
[2023-09-06 04:02] LABS: Anion Gap 5.8 mEq/L (5.0-15.0); Magnesium 1.5 mg/dL (1.6-2.4); Phosphorus 2.7 mg/dL (2.5-4.9); Potassium 3.8 mEq/L (3.5-5.1)
[2023-09-06] MEDS: Magnesium Sulfate 2gm IVPB 2 G/50 ML BAG IV ONE (05:18)
[2023-09-06 08:13] VITALS: BP 153/83; TEMP 97.6
[2023-09-06] MEDS: POTASSIUM CL SA 10 MEQ TAB PO ONE (08:31)
[2023-09-06 09:34] VITALS: O2SAT 96
--- NOTE | 2023-09-06 13:31 | EKG ---
Test Date: 2023-09-02 Test Time: 12:26:31 Business Leader: NADIRA MEASUREMENT RESULTS: Intervals: Rate: 111 MI: 154 QRSD: 80 QT: 330 QTc: 448 [place]: P: 89 MI: 154 QRS: 86 T: 77 INTERPRETIVE STATEMENTS: Sinus tachycardia Cannot rule out Inferior infarct, age undetermined Abnormal ECG Compared to ECG 03/08/2009 09:07:19 Myocardial infarct finding now present Sinus rhythm no longer present Electronically Signed On 09-06-23 13:20:25 CDT by Jatin Durham
--- NOTE | 2023-09-06 20:07 | P.DS ---
Admission Date: 09/03/23 Discharge Date: 09/06/23 Disposition: ROUTINE DISCHARGE Discharge Condition: GOOD Reason for Admission: urinary retention Brief History of Present Illness: Diagnosis Bilateral hydroureteronephrosis Severe urinary retention Hx of BPH Urinary tract infection ELIEZER Leukocytosis Hypomagnesemia Hypokalemia Hypertensive Tachycardic likely secondary to fever Diabetes Mellitus HPI 09/03/23 Johnnie Maldonado is a 58 year old male with Pmhx Diabetes mellitus- NIDDM, urinary incontinence/retention who presents to the ED with chief complaint of abdominal pain and not being able to urinate for three days. He reports going to the [facility] ED on Wednesday (08/22) and being discharged home with a jensen catheter and flomax. He was then in long term on (08/25) at which time the jensen catheter was "urinated out" per patient's statement. He has been a week without the catheter and now presents with abdominal pain and bladder distention. CT abd/pelvis reports "Moderate left and severe right hydroureteronephrosis. Moderately pronounced urothelial enhancement along the right renal pelvis and right more than left proximal ureter. Perinephric edema along the lower poles of both kidneys. Mildly heterogeneous enhancement of the cortex at the left lower pole. Left lower pole 4.8 x 4.7 cm cystic lesion with thin septal enhancement. Simple appearing right lower pole 1.5 cm cyst. No radiopaque calculi. Bilateral hydroureteronephrosis and markedly distended urinary bladder, findings which may relate to retrograde ureteral reflux. No evidence of obstructing calculi. Bilateral perinephric edema along the lower poles. Moderately pronounced urothelial enhancement along the right renal pelvis and right more than left proximal ureter. Subtle heterogeneous enhancement of the left lower pole renal cortex. Findings raise concern for pyelonephritis in the appropriate clinical setting." Initial vitals: BP 174 / 109; Pulse 102; Resp 19 S; Temp 99.7(O); Pulse Ox 96% on R/A; Laboratory evaluation Na 134, K 4.2, BUN/creatinine 28/1.66, GFR 48, serum glucose 191, BNP 1099 Johnnie will be admitted to hospitalist service for further evaluation and treatment of bilateral hydroureteronephrosis and UTI. Hospital Course: Johnnie Maldonado is a pleasant 58 year old male with a past medical history significant for Diabetes mellitus- NIDDM, urinary incontinence/retention who wa s admitted to the [facility] on 09/03/23 for Urinary retention. Johnnie Maldonado presented to the ED with chief complaint of severe abdominal pain and unable to urinate. His bladder was severely distended and a jensen catheter was placed with >3500 Urine output. He was diagnosed with a UTI and has tolerated IV antibiotics. His blood sugar has stablized with insulin therapy and will continue outpatient with metformin with expectations of following up with his PCP for further management. He will be discharged with a jensen catheter to allow continued drainage d/t his BPH obstruction. Jensen catheter care as described on print out. instructions given to follow up with Dr. Mendoza for continued BPH management. On 09/06/23, Johnnie was seen on morning rounds and deemed medically stable for discharge. Johnnie was discharged with instructions to schedule follow-up appointments with Dr. Mendoza and PCP. Johnnie was provided prescriptions for flomax, Keflex, and metformin. The patient was given the opportunity to ask questions and reported no further questions. Furthermore, all questions were answered to the best of my ability. A copy of this discharge summary will be sent to the above providers to facilitate continuity of care. Physical Exam General: alert and oriented x 3, NAD, comfortable HEENT: Atraumatic, Normocephalic, PERRLA Neck: Supple, 2+ carotid pulse no bruit, JVD not distended Respiratory: symmetric chest wall movement, bilaterally clear breath sounds, on Room air Cardiovascular: normal S1 S2 present, regular rate and rhythm, no murmur noted Capillary refill: <2 Seconds Gastrointestinal: normal Bowel sounds present, soft and benign on palpation Musculoskeletal: No swelling, 2+ peripheral pulses present Integumentary: No rashes Neurological: Normal speech, Normal tone Urinary: Jensen catheter Vital Signs/Physical Exam: Temp Pulse Resp BP Pulse Ox 97.6 F 76 16 153/83 H 96 09/06/23 08:00 09/06/23 08:00 09/06/23 08:00 09/06/23 08:00 09/06/23 08:00 Laboratory Data at Discharge: WBC 8.50 thou/uL (4.3-10.9) 09/06/23 02:39 Hgb 10.1 g/dL (13.6-17.9) L 09/06/23 02:39 Hct 28.7 % (39.6-49.0) L 09/06/23 02:39 Plt Count 389 thou/uL (152-406) 09/06/23 02:39 PT 12.7 SECONDS (9.5-12.5) H 09/02/23 12:40 INR 1.16 09/02/23 12:40 Sodium 134 mEq/L (136-145) L 09/06/23 02:39 Potassium 3.8 mEq/L (3.5-5.1) 09/06/23 02:39 BUN 13 mg/dL (7-18) 09/06/23 02:39 Creatinine 0.65 mg/dL (0.70-1.30) L 09/06/23 02:39 Glucose 233 mg/dL (74-106) H 09/06/23 02:39 Phosphorus 2.7 mg/dL (2.5-4.9) 09/06/23 02:39 Magnesium Cancelled 09/06/23 12:00 Total Bilirubin 0.7 mg/dL (0.2-1.0) 09/03/23 07:55 AST < 10 U/L (15-37) L 09/03/23 07:55 ALT < 14 U/L (16-61) L 09/03/23 07:55 Alkaline Phosphatase 69 U/L (45-117) D 09/03/23 07:55 Lipase 37 U/L (13-75) 09/02/23 12:40 Home Medications: Cephalexin [Keflex] 500 mg PO Q6HR 10 Days #40 cap 09/06/23 Metformin ER [Glucophage ER*] 1,000 mg PO DAILY 30 Days #30 tab.sa 09/06/23 Tamsulosin [Flomax*] 0.4 mg PO DAILY 30 Days #30 cap 09/06/23 New Medications: Cephalexin [Keflex] 500 mg PO Q6HR 10 Days #40 cap Tamsulosin [Flomax*] 0.4 mg PO DAILY 30 Days #30 cap Metformin ER [Glucophage ER*] 1,000 mg PO DAILY 30 Days #30 tab.sa Physician Discharge Instructions: Johnnie Maldonado presented to the ED with chief complaint of severe abdominal pain and unable to urinate. His bladder was severely distended and a jensen catheter was placed with >3500 Urine output. He was diagnosed with a UTI and has tolerated IV antibiotics. His blood sugar has stablized with insulin therapy and will continue outpatient with metformin with expectations of following up with his PCP for further management. He will be discharged with a jensen catheter to allow continued drainage d/t his BPH obstruction. Jensen catheter care as described on print out. 1. Please call and schedule a follow-up appointment with your PCP in 3-5 days - Please follow-up with your PCP for medication refills/adjustments 2. Please call and schedule a follow-up appointment with Dr. Mendoza in 3-5 days for jensen catheter management and prostate care 3. Continue ADA diet 4. No activity restrictions 5. Return to the ED if symptoms worsen New medications- sent to [facility] in [place] Flomax 0.4 mg PO daily x 30 days keflex 500mg PO four times daily x 10 days metformin 1000 mg PO daily x 30 days Diet: ADA Activity: Ad ismael Followup: NONE,NONE [Primary Care Provider] - Markos Mendoza [ACTIVE - CAN ADMIT] -
== END 2023-09-06 11:27 | disposition home or self-care (01) | DRG 690 ==
LOC: ER 11:42 → ERHOLD 15:29 → 2ND 17:11 → OBSVTOIN 09-03 15:05
PROVIDERS: ADMIT Hospitalist; ATTEND Hospitalist
PROC: 0T9B70Z Drainage of Bladder with Drainage Device, Via Natural or Artificial Opening (ICD-10-PCS; principal; 2023-09-03)
DX: N13.6 Pyonephrosis (principal); E87.1 Hypo-osmolality and hyponatremia; N17.9 Acute kidney failure, unspecified; E87.6 Hypokalemia; E11.9 Type 2 diabetes mellitus without complications; I10 Essential (primary) hypertension; E83.42 Hypomagnesemia; D72.829 Elevated white blood cell count, unspecified; R33.9 Retention of urine, unspecified; R00.0 Tachycardia, unspecified; Z79.84 Long term (current) use of oral hypoglycemic drugs; Z79.899 Other long term (current) drug therapy
CPT/HCPCS: 36415; 51702; 71045; 74177; 80048; 80053; 80076; 81001; 82947; 83036; 83605; 83690; 83735; 83880; 84100; 84132; 84484; 85025; 85610; 87086; 87088; 93005; 96365; 96367; 96375; 99285; G0378; J0360; J0696; J1644; J1815; J2270; J2543; J3475; J7030; Q9967

== ENCOUNTER 2023-10-11 11:23 | Emergency (ER) | payer SELFPAY ==
--- OUTSIDE RECORDS SUMMARY | 2023-10-11 11:28 | XMS REPORT | Continuity of Care Document ---
Author Name Unknown Address [address] [place] [address] [facility] Address [address] [place] [address] Care Team Providers Care Migrant Leader Name Role Phone Erik Louie Jr. Primary Care Physician + [phone] Cosme Spring DO Attending Clinician [phone] Solo CHONG, Lyubov Hilton Attending Clinician [phone] Rosalie Irizarry RN Attending Clinician [phone] Miguel CHONG, Ricky KLakishaHLakisha Attending Clinician + [phone] Umang Botello MD Attending Clinician [phone] Jerry Fields DO Attending Clinician [phone] Vimal Quiñones MD Attending Clinician [phone] Jeannette Dawn LVN Attending Clinician + [phone] PARVEZ MONROE Attending Clinician Unavailable Sergio Aponte MD Attending Clinician [phone] Bret Banda MD Attending Clinician [phone] Parvez Monroe MD Attending Clinician [phone] Lyubov Banda MD Admitting Clinician [phone] Jerry Fields DO Admitting Clinician [phone] PARVEZ MONROE Admitting Clinician Unavailable Parvez Monroe MD M Admitting Clinician Problems Condition Name Condition Details Condition Category Status Onset Date Resolution Date Last Treatment Date Treating Clinician Comments Source Elevated troponin I level Elevated troponin I level Disease Active 08-14 00:00: 00 [facility] Elevated brain natriureti c peptide (BNP) level Elevated brain natriureti c peptide (BNP) level Disease Active 08-14 00:00: 00 [facility] Essential hypertensi on Essential hypertensi on Disease Active 08-14 00:00: 00 [facility] ELIEZER (acute kidney injury) ELIEZER (acute kidney injury) Disease Active 08-14 00:00: 00 [facility] Type 2 diabetes mellitus with other specified complicati on Type 2 diabetes mellitus with other specified complicati on Disease Active 08-14 00:00: 00 [facility] Hypertensi on, unspecifie d type Hypertensi on, unspecifie d type Disease Active 08-13 00:00: 00 [facility] NSTEMI (non-ST elevated myocardial infarction ) NSTEMI (non-ST elevated myocardial infarction ) Disease Active 2022-04 00:00: 00 [facility] Allergies, Adverse Reactions, Alerts Allergy Name Allergy Type Status Severity Reaction(s) Onset Date Inactive Date Treating Clinician Comments Source NO KNOWN ALLERGIE S Drug Class Active [facility] Social History Social Habit Start Date Stop Date Quantity Comments Source [facility] 2023-08-23 00:00:00 2023-08-23 00:00:00 [facility] Alcohol intake 2023-08-22 00:00:00 2023-08-22 00:00:00 Lifetime non-drinker (finding) [facility] Tobacco use and exposure 2023-04-21 00:00:00 2023-04-21 00:00:00 Smokeless tobacco non-user [facility] Sex Assigned At 1965 00:00:00 1965 00:00:00 [facility] Smoking Status Start Date Stop Date Source Never smoked tobacco [facility] Medications Ordered Medication Name Filled Medication Name Start Date Stop Date Current Medication? Ordering Clinician Indication Dosage Frequency Signature (SIG) Comments Components Source acarbose 25 mg tablet 08-23 00:00: 00 Yes [id number] 25mg Take 1 tablet by mouth in the morning and 1 tablet at noon and 1 tablet in the evening. Take with meals. [facility] metFORMIN 500 mg 24 hr tablet 08-23 00:00: 09-23 04:59 :00 Yes [id number] 500mg Take 1 tablet by mouth in the morning and 1 tablet in the evening. Take with meals. Do all this for 30 days. [facility] amLODIPine 10 mg tablet 08-23 00:00: 00 09-23 04:59 :00 Yes [id number] 10mg Take 1 tablet by mouth in the morning for 30 days. [facility] tamsulosin 0.4 mg 24 hr capsule 08-23 00:00: 00 09-23 04:59 :00 Yes [id number] .4mg Take 1 capsule by mouth in the morning for 30 days. [facility] levoFLOXaci n 500 mg tablet 08-23 00:00: 00 08-26 04:59 :00 Yes [id number] 500mg Take 1 tablet by mouth every 24 (twenty-fo ur) hours for 2 days. [facility] cefTRIAXone (ROCEPHIN) 1,000 mg in NaCl 0.9% (NS) 100 mL MINI-BAG 08-22 19:30: 00 08-26 19:29 :00 Yes 1000mg 1,000 mg, IV Piggyback, Q24H ABX, 4 doses, First dose on 08/23/23 at 1430, Last dose on Naa 08/26/23 at 1430, Administer over 30 Minutes, 100 mL
Reas on for Anti-Infec tive: Empiric Therapy for Suspected Infection< br>Empiric Therapy Site: Urine
D uration of therapy: Once (ED) [facility] D5W IV infusion 1,000 mL 08-22 15:00: 00 08-22 16:53 :22 No 1000mL at 50 mL/hr, IV Infusion, ONCE, 1 dose, On Wed08/23/23 at 1000, Routine [facility] amLODIPine (NORVASC) tablet 5 mg 08-22 14:00: 00 Yes 5mg 5 mg, Oral, DAILY, First dose on Wed08/23/23 at 0900, Until Discontinu ed, Routine [facility] D5W 0.45% NaCl (1/2NS) IV infusion 1,000 mL 08-22 02:29: 00 08-23 17:53 :57 No 1000mL at 75 mL/hr, 1,000 mL, IV Infusion, CONTINUOUS , Starting on Wed08/22/23 at 2130, Until Wed08/24/23 at 1253, Routine [facility] D5W IV infusion 1,000 mL 08-21 21:30: 00 08-22 02:27 :22 No 1000mL at 100 mL/hr, IV Infusion, CONTINUOUS , Starting on Wed08/22/23 at 1630, Until Wed08/22/23 at 2127, Routine [facility] Sliding Scale Insulin - Lispro (HumaLOG) 08-21 21:00: 00 Yes Subcutaneo us, Q4H, First dose on Wed08/22/23 at 1600, Until Discontinu ed, Routine [facility] glucagon (GLUCAGEN DIAGNOSTIC KIT) injection 1 mg 08-21 20:17: 12 Yes 1mg 1 mg, Intramuscu lar, PRN, Starting on Wed08/22/23 at 1517, Until Discontinu ed, HAO, Blood Glucose < or = 70 mg/dL and patient is NPO, unable to swallow or has mental changes. [facility] dextrose 50 % in water (D50W) injection 25 mL 08-21 20:17: 12 Yes 25mL 25 mL, Slow IV Push, PRN, Starting on Wed08/22/23 at 1517, Until Discontinu ed, HAO, Blood Glucose < or = 70 mg/dL and patient is NPO, unable to swallow or has mental status changes. [facility] D5W IV infusion 1,000 mL 08-21 17:45: 00 08-21 20:16 :11 No 1000mL at 100 mL/hr, IV Infusion, CONTINUOUS , Starting on Wed08/22/23 at 1245, Until Wed08/22/23 at 1516, Routine [facility] tamsulosin (FLOMAX) capsule 0.4 mg 08-21 14:00: 00 Yes .4mg 0.4 mg, Oral, DAILY, First dose on Wed08/22/23 at 0900, Until Discontinu ed, Routine [facility] docusate (COLACE) capsule 100 mg 08-21 13:00: 00 Yes 100mg 100 mg, Oral, BID, First dose on Wed08/22/23 at 0800, Until Discontinu ed, Routine [facility] heparin (porcine) injection 5,000 Units 08-21 13:00: 00 Yes 5000U 5,000 Units, Subcutaneo us, Q12H, First dose on Wed08/22/23 at 0800, Until Discontinu ed, Routine [facility] D5W 0.45% NaCl (1/2NS) IV infusion 1,000 mL 08-21 06:15: 00 08-21 16:44 :38 No 1000mL at 100 mL/hr, 1,000 mL, IV Infusion, CONTINUOUS , Starting on Wed08/22/23 at 0115, Until Wed08/22/23 at 1144, Routine [facility] D5W 0.45% NaCl (1/2NS) Bolus infusion 1,000 mL 08-21 06:00: 00 08-21 06:21 :00 No 1000mL at 999 mL/hr, 1,000 mL, IV Infusion, ONCE, 1 dose, On Wed08/22/23 at 0100, Routine [facility] NaCl 0.9% (NS) bolus infusion 1,000 mL 08-21 04:15: 00 08-21 05:05 :00 No 1000mL at 999 mL/hr, 1,000 mL, IV Infusion, ONCE, 1 dose, On 08/21/23 at 2315, STAT [facility] bisacodyL (DULCOLAX) tablet 10 mg 08-21 04:02: 51 Yes 10mg 10 mg, Oral, QDAILYPRN, Starting on 08/21/23 at 2302, Until Discontinu ed, Routine, Constipati on [facility] ondansetron (ZOFRAN (PF)) injection 4 mg 08-21 04:02: 17 Yes 4mg 4 mg, Slow IV Push, Q6HPRN, Starting on 08/21/23 at 2302, Until Discontinu ed, Routine, Nausea and Vomiting (N/V) [facility] FENTanyl PF (SUBLIMAZE (PF)) injection 12.5 mcg 08-21 04:02: 09 08-22 04:01 :09 No 12.5ug 12.5 mcg, Slow IV Push, Q6HPRN, Starting on 08/21/23 at 2302, Until 08/22/23 at 2301, Routine, Pain (scale 7-10), Pain (scale 4-6) [facility] acetaminoph en (TYLENOL) tablet 650 mg 08-21 04:01: 56 Yes 650mg 650 mg, Oral, Q6HPRN, Starting on 08/21/23 at 2301, Until Discontinu ed, Routine, Pain (scale 1-3) [facility] magnesium citrate solution 296 mL 08-21 01:45: 00 08-21 01:25 :00 No 296mL 296 mL, Oral, ONCE, 1 dose, On 08/21/23 at 2045, Routine [facility] amLODIPine 5 mg tablet 08-16 00:00: 00 08-23 00:00 :00 No [id number] 5mg Take 1 tablet by mouth in the morning for 30 days. [facility] lactulose (CEPHULAC) solution 45 mL 08-15 15:45: 00 08-15 15:21 :00 No 45mL 45 mL, Oral, ONCE, 1 dose, On Wed08/16/23 at 1045, Routine [facility] amLODIPine (NORVASC) tablet 5 mg 08-15 14:00: 00 Yes 5mg 5 mg, Oral, DAILY, First dose on Wed08/16/23 at 0900, Until Discontinu ed, Routine [facility] sennosides (SENOKOT) tablet 8.6 mg 08-15 14:00: 00 Yes 8.6mg 8.6 mg, Oral, DAILY, First dose on Wed08/16/23 at 0900, Until Discontinu ed, Routine [facility] losartan (COZAAR) tablet 25 mg 08-15 14:00: 00 Yes 25mg 25 mg, Oral, DAILY, First dose (after last modificati on) on Wed08/16/23 at 0900, Until Discontinu ed, Routine [facility] docusate (COLACE) capsule 100 mg 08-15 13:00: 00 Yes 100mg 100 mg, Oral, BID, First dose on Wed08/16/23 at 0800, Until Discontinu ed, Routine [facility] lactulose (CEPHULAC) solution 30 mL 08-15 10:00: 00 08-15 09:33 :00 No 30mL 30 mL, Oral, ONCE, 1 dose, On Wed08/16/23 at 0500, Routine [facility] metFORMIN 500 mg 24 hr tablet 08-15 00:00: 00 08-23 00:00 :00 No [id number] 500mg Take 1 tablet by mouth in the morning and 1 tablet in the evening. Take with meals. Do all this for 30 days. [facility] acarbose 25 mg tablet 08-15 00:00: 00 08-23 00:00 :00 No [id number] 25mg Take 1 tablet by mouth in the morning and 1 tablet at noon and 1 tablet in the evening. Take with meals. Do all this for 30 days. [facility] pioglitazon e 15 mg tablet 08-15 00:00: 00 08-23 00:00 :00 No [id number] 15mg Take 1 tablet by mouth in the morning for 30 days. [facility] tamsulosin 0.4 mg 24 hr capsule 08-15 00:00: 00 08-23 00:00 :00 No [id number] .4mg Take 1 capsule by mouth in the morning for 30 days. [facility] losartan 25 mg tablet 08-15 00:00: 00 08-23 00:00 :00 No [id number] 25mg Take 1 tablet by mouth in the morning for 30 days. [facility] glipiZIDE (GLUCOTROL) tablet 5 mg 08-14 21:30: 00 Yes 5mg 5 mg, Oral, BIDAC, First dose on 08/15/23 at 1630, Until Discontinu ed, [facility]ine [facility] KCL (KLOR-CON M20) tablet 40 mEq 08-14 21:30: 00 08-14 21:21 :00 No 40meq 40 mEq, Oral, ONCE, 1 dose, On 08/15/23 at 1630, Routine [facility] pioglitazon e (ACTOS) tablet 7.5 mg 08-14 17:00: 00 08-15 12:47 :51 No 7.5mg 7.5 mg, Oral, DAILY, First dose on 08/15/23 at 1200, Until Discontinu ed, Routine [facility] tamsulosin (FLOMAX) capsule 0.4 mg 08-14 15:49: 00 Yes .4mg 0.4 mg, Oral, DAILY, First dose on 08/15/23 at 1100, Until Discontinu ed, Routine [facility] amLODIPine (NORVASC) tablet 10 mg 08-14 14:00: 00 08-14 15:51 :30 No 10mg 10 mg, Oral, DAILY, First dose on 08/15/23 at 0900, Until Discontinu ed, Routine [facility] heparin (porcine) injection 5,000 Units 08-14 03:00: 00 08-14 06:07 :44 No 5000U 5,000 Units, Subcutaneo us, Q8H, First dose on 08/14/23 at 2200, Until Discontinu ed, Routine [facility] Sliding Scale Insulin - Lispro (HumaLOG) 08-14 02:00: 00 08-14 18:06 :14 No Subcutaneo us, TID MEALS+HS, First dose on 08/14/23 at 2100, Until Discontinu ed, Routine [facility] glucagon (GLUCAGEN DIAGNOSTIC KIT) injection 1 mg 08-14 00:36: 37 Yes 1mg 1 mg, Intramuscu lar, PRN, Starting on 08/14/23 at 1936, Until Discontinu ed, HAO, Blood Glucose < or = 70 mg/dL and patient is NPO, unable to swallow or has mental changes. [facility] dextrose 50 % in water (D50W) injection 25 mL 08-14 00:36: 37 Yes 25mL 25 mL, Slow IV Push, PRN, Starting on 08/14/23 at 1936, Until Discontinu ed, HAO, Blood Glucose < or = 70 mg/dL and patient is NPO, unable to swallow or has mental status changes. [facility] acetaminoph en (TYLENOL) tablet 650 mg 08-14 00:36: 24 Yes 650mg 650 mg, Oral, Q6HPRN, Starting on 08/14/23 at 1936, Until Discontinu ed, Routine, Pain (scale 1-3) [facility] aspirin chewable tablet 324 mg 08-13 23:15: 00 08-13 22:56 :00 No [id number] 324mg 324 mg, Oral, ONCE, 1 dose, On 08/14/23 at 1815, HAO [facility] lidocaine 2% viscous (LIDOCAINE VISCOUS) 2 % solution 15 mL 08-13 23:00: 00 08-13 22:10 :00 No [id number] 15mL 15 mL, Oral, ONCE, 1 dose, On 08/14/23 at 1800, Routine [facility] KCL (KLOR-CON M20) tablet 20 mEq 08-13 22:30: 00 08-13 22:59 :00 No [id number] 20meq 20 mEq, Oral, ONCE, 1 dose, On 08/14/23 at 1730, [facility] metoprolol tartrate (LOPRESSOR) tablet 50 mg 08-13 22:00: 00 08-13 22:58 :00 No [id number] 50mg 50 mg, Oral, ONCE, 1 dose, On 08/14/23 at 1700, [facility] iopamidol (ISOVUE 370-500 mL) injection 80 mL 08-13 21:30: 00 08-13 21:45 :00 No [id number] 80mL 80 mL, Intravenou s, ONCE, 1 dose, On 08/14/23 at 1645, Routine [facility] acetaminoph en (TYLENOL) tablet 650 mg 08-13 21:15: 00 08-13 22:57 :00 No [id number] 650mg 650 mg, Oral, ONCE, 1 dose, On 08/14/23 at 1615, [facility] amLODIPine (NORVASC) tablet 5 mg 08-13 21:15: 00 08-13 22:58 :00 No [id number] 5mg 5 mg, Oral, ONCE, 1 dose, On 08/14/23 at 1615, [facility] NaCl 0.9% (NS) bolus infusion 1,000 mL 08-13 21:15: 00 08-13 21:50 :00 No [id number] 1000mL at 999 mL/hr, 1,000 mL, IV Infusion, ONCE, 1 dose, On 08/14/23 at 1615, [facility] insulin NPH (HUMULIN N) injection 9 Units 2022-04 2-30 14:00: 00 Yes 9U 9 Units, Subcutaneo us, QAM WITH BREAKFAST, First dose (after last modificati on) on Wed04/24/23 at 0800, Until Discontinu ed, Routine [facility] losartan 25 mg tablet 2022-04 00:00: 00 08-15 00:00 :00 No [id number] 25mg Take 1 tablet by mouth in the morning. [facility] tamsulosin (FLOMAX) 0.4 mg 24 hr capsule 2022-04 00:00: 00 08-15 00:00 :00 No [id number] .4mg Take 1 capsule by mouth in the morning. [facility] metFORMIN 500 mg tablet 2022-04 00:00: 00 05-23 05:59 :00 No [id number] Take 1 tablet by mouth 2 (two) times daily with meals for 7 days, THEN 2 tablets 2 (two) times daily with meals for 21 days. [facility] insulin lispro (human) (HumaLOG U-100) injection 3 Units 2022-04 23:00: 00 Yes 3U 3 Units, Subcutaneo us, TID MEALS, First dose (after last modificati on) on Wed04/23/23 at 1700, Until Discontinu ed, Routine [facility] insulin NPH (HUMULIN N) injection 5 Units 2022-04 23:00: 00 Yes 5U 5 Units, Subcutaneo us, QPM, First dose (after last modificati on) on Wed04/23/23 at 1700, Until Discontinu ed, Routine [facility] losartan (COZAAR) tablet 25 mg 2022-04 15:00: 00 Yes 25mg 25 mg, Oral, DAILY, First dose on Wed04/23/23 at 0900, Until Discontinu ed, Routine [facility] Potassium Bicarb-Citr ic Acid (EFFER-K) effervescen t tablet 40 mEq 2022-04 13:00: 00 04-23 13:33 :00 No 40meq 40 mEq, Oral, ONCE, 1 dose, On Wed04/23/23 at 0700, Routine [facility] ramelteon (ROZEREM) tablet 8 mg 2022-04 10:45: 00 04-23 10:51 :00 No 8mg 8 mg, Oral, ONCE NOW, 1 dose, On Wed04/23/23 at 0500, Routine [facility] Blood-Gluco se Meter (ACCU-CHEK GUIDE GLUCOSE METER) [facility] 2022-04 00:00: 00 Yes [id number] Use as directed [facility] lancets 33 gauge [facility] 2022-04 00:00: 00 Yes [id number] Use as directed [facility] blood sugar diagnostic (ACCU-CHEK GUIDE TEST STRIPS) strip 2022-04 00:00: 00 Yes [id number] Use as directed [facility] pioglitazon e 15 mg tablet 2022-04 00:00: 00 08-15 00:00 :00 No [id number] 7.5mg Take 0.5 tablets by mouth in the morning. [facility] acarbose 25 mg tablet 2022-04 00:00: 00 08-15 00:00 :00 No [id number] 25mg Take 1 tablet by mouth in the morning and 1 tablet at noon and 1 tablet in the evening. Take with meals. [facility] atorvastati n 80 mg tablet 2022-04 00:00: 00 05-24 05:59 :00 No [id number] 80mg Take 1 tablet by mouth at bedtime for 30 days. [facility] glipiZIDE 5 mg tablet 2022-04 00:00: 00 05-24 05:59 :00 No [id number] 5mg Take 1 tablet by mouth 2 (two) times daily before breakfast and dinner for 30 days. [facility] enoxaparin (LOVENOX) injection 40 mg 2022-04 15:00: 00 Yes 40mg 40 mg, Subcutaneo us, DAILY, First dose on Naa 04/22/23 at 0900, Until Discontinu ed, Routine [facility] insulin NPH (HUMULIN N) injection 8 Units 2022-04 14:00: 00 04-23 19:10 :37 No 8U 8 Units, Subcutaneo us, QAM WITH BREAKFAST, First dose on Wed04/22/23 at 0800, Until Discontinu ed, Routine [facility] insulin NPH (HUMULIN N) injection 4 Units 2022-04 23:00: 00 04-23 19:10 :37 No 4U 4 Units, Subcutaneo us, QPM, First dose on Wed04/21/23 at 1700, Until Discontinu ed, Routine [facility] insulin lispro (human) (HumaLOG U-100) injection 2 Units 2022-04 23:00: 00 04-23 19:10 :37 No 2U 2 Units, Subcutaneo us, TID MEALS, First dose (after last modificati on) on Wed04/21/23 at 1700, Until Discontinu ed, Routine [facility] NaCl 0.9% (NS) IV infusion 250 mL 2022-04 21:15: 00 04-22 20:03 :10 No [id number] 250mL at 20 mL/hr, IV Infusion, CONTINUOUS , Starting on Wed04/21/23 at 1515, Until Wed04/22/23 at 1403, Routine
To keep vein open
[facility] perflutren lipid microsphere s (DEFINITY) injection 2 mL 2022-04 21:00: 00 04-21 20:15 :00 No [id number] 2mL 2 mL, IV Push, ONCE, 1 dose, On Wed04/21/23 at 1500, Routine [facility] atropine injection 1 mg 2022-04 21:00: 00 04-21 20:44 :00 No [id number] 1mg 1 mg, Slow IV Push, ONCE, 1 dose, On Wed04/21/23 at 1500, Routine [facility] DOBUTamine (DOBUTREX) 250 mg/250 mL RTU infusion 2022-04 20:13: 51 04-22 20:03 :10 No [id number] 5ug/kg/ min 5 mcg/kg/min ?59 kg (17.7 mL/hr), IV Infusion, TITRATE, MAP Goal > or = 65 mmHg, Titrate per admin instructio ns, Starting on Wed04/21/23 at 1413
No te and document the precise time that this is 3. ac complished . Begin the count with the EKG system's DSE applicatio n program. This is time zero.&nbsp ; At 2 minutes and 30 seconds after beginning the initial dosing, acquire parasterna l long axis and parasterna l short axis view at papillary level, apical 4 chamber, 2 chamber and apical long axis view, and BP At the 3 minute interval, simultaneo usly obtain a 12 lead EKG, heart rate and 02 saturation and increase the Dobutamine infusion to 10 mcg/kg/min . At the 5 minutes and 30 second interval, acquire parasterna l long axis and parasterna l short&nbsp ;axis view at papillary level, apical 4 chamber, 2 chamber and apical long axis view and measure BP. At the 6 minute interval, simultaneo usly obtain a 12 lead EKG, heart rate and 02saturati on an d increase the Dobutamine infusion to 20 mcg/kg/min . At the 8 minutes and 30 second interval, acquire parasterna l long axis and parasterna l short&nbsp ;axis view at papillary level, apical 4 chamber, 2 chamber and apical long axis view and measure BP. At the 9 minute interval, simultaneo usly obtain a 12 lead EKG, heart rate and 02 saturation and increase the Dobutamine infusion to 30 mcg/kg/min . (see Adjunctive Therapy)&n bsp; At the 11 minutes and 30 second interval, acquire parasterna l long axis and parasterna l short&nbsp ;axis view at papillary level, apical 4 chamber, 2 chamber and apical long axis view and m easure BP. At the 12 minute interval, simultaneo usly obtain a 12 lead EKG, heart rate and 02 saturation and increase the Dobutamine infusion to 40 mcg/kg/min . (see Adjunctive Therapy&nb sp; At the 14 minutes and 30 second interval, acquire parasterna l long axis and parasterna l short&nbsp ;axis view at papillary level, apical 4 chamber, 2 chamber and apical long axis view and m easure BP. At the 15 minute interval, simultaneo usly obtain a 12 lead EKG, heart rate and 02 saturation and terminate the Dobutamine infusion. (see Adjunctive Therapy)<b r> [facility] perflutren protein-A microsphr (OPTISON) injection 3 mL 2022-04 17:15: 00 04-21 15:22 :00 No [id number] 3mL 3 mL, IV Push, ONCE, 1 dose, On Wed04/21/23 at 1115, Routine [facility] potassium chloride in water 10 mEq/100 mL RTU 10 mEq 2022-04 17:00: 00 04-21 20:59 :00 No 10meq 10 mEq, IV Piggyback, Q1H, 4 doses, First dose (after last reorder) on Wed04/21/23 at 1100, Last dose on Wed04/21/23 at 1400, Administer over 60 Minutes, 100 mL [facility] tamsulosin (FLOMAX) capsule 0.4 mg 2022-04 15:00: 00 Yes .4mg 0.4 mg, Oral, DAILY, First dose on Wed04/21/23 at 0900, Until Discontinu ed, Routine [facility] aspirin chewable tablet 81 mg 2022-04 15:00: 00 04-22 16:28 :38 No 81mg 81 mg, Oral, DAILY, First dose on Wed04/21/23 at 0900, Until Discontinu ed, Routine [facility] aspirin tablet 325 mg 2022-04 15:00: 00 04-21 06:21 :21 No 325mg 325 mg, Oral, DAILY, First dose on Wed04/21/23 at 0900, Until Discontinu ed, Routine [facility] Sliding Scale Insulin - Lispro (HumaLOG) 2022-04 14:00: 00 Yes Subcutaneo us, TID MEALS+HS, First dose on Wed04/21/23 at 0800, Until Discontinu ed, Routine [facility] magnesium sulfate in water 2 gram/50 mL (4 %) infusion 2 g 2022-04 12:30: 00 04-21 15:11 :00 No 2g 2 g, IV Piggyback, Administer over 60 Minutes, ONCE, 1 dose, On Wed04/21/23 at 0630, Routine [facility] Potassium Bicarb-Citr ic Acid (EFFER-K) effervescen t tablet 40 mEq 2022-04 12:30: 00 04-21 12:36 :00 No 40meq 40 mEq, Oral, ONCE, 1 dose, On Wed04/21/23 at 0630, Routine [facility] insulin glargine (LANTUS U-100) injection 9 Units 2022-04 07:45: 00 04-21 21:08 :08 No .15U/kg /d 9 Units (rounded from 8.745 Units = 0.15 Units/kg/d ay ?58.3 kg), Subcutaneo us, QHS, First dose (after last modificati on) on Wed04/21/23 at 0145, Until Discontinu ed, Routine [facility] atorvastati n (LIPITOR) tablet 80 mg 2022-04 06:30: 00 Yes 80mg 80 mg, Oral, QHS, First dose on Wed04/21/23 at 0030, Until Discontinu ed, Routine [facility] dextrose 50 % in water (D50W) injection 25 mL 2022-04 06:24: 50 Yes 25mL 25 mL, Slow IV Push, PRN, Starting on Wed04/21/23 at 0024, Until Discontinu ed, HAO, Blood Glucose < or = 70 mg/dL and patient is NPO, unable to swallow or has mental status changes. [facility] acetaminoph en (TYLENOL) tablet 650 mg 2022-04 05:53: 21 Yes 650mg 650 mg, Oral, Q6HPRN, Starting on Wed04/20/23 at 2353, Until Discontinu ed, Routine, Pain (scale 1-3) [facility] NaCl 0.9% (NS) bolus infusion 1,000 mL 2022-04 04:00: 00 04-21 03:45 :00 No 1000mL at 999 mL/hr, 1,000 mL, IV Infusion, ONCE, 1 dose, On Wed04/20/23 at 2200, STAT [facility] clopidogreL (PLAVIX) 300 mg tablet 300 mg 2022-04 03:30: 00 04-21 02:50 :00 No 300mg 300 mg, Oral, ONCE, 1 dose, On Wed04/20/23 at 2130, HAO [facility] HEPARIN SODIUM (PORCINE) 1,000 UNIT/ML BOLUS ACS ORDER SET 2022-04 02:45: 00 04-21 02:53 :00 No 60U/kg 3,540 Units (60 Units/kg ?59 kg), IV Push, ONCE, 1 dose, On Wed04/20/23 at 2044, HAO [facility] heparin 25,000 Units/250 mL (Premixed Bag) in 0.45 % NS 2022-04 02:42: 33 04-21 20:32 :05 No 700U/h 700 Units/hr (7 mL/hr), IV Infusion, TITRATE, Parameters in Admin. Instr., Starting on Wed04/20/23 at 2041
In itiate dosing:&nb sp; & nbsp;&nbsp ; -Patient 83 kg or under: 700 Units/hr (Calculate d dose at 12 units/kg/h r) &n bsp; &nbs p; -Patient over 83 k,000 units/hr&n bsp;DO NOT Exceed the MAXIMUM 1,000 units/hr for initiation of heparin drip.&nbsp ; CAU TION - If LMWH given in ER, AVOID bolus and start next dose/drip 12 hrs after ER dosage.&nb sp; M ust program rate using programmab le infusion pump.&nbsp ; Nevaeh ck with the ordering provider first prior to any administra tion should the patient be on existing/a dditional anticoagul ant therapy. Rang e, Dosing and Testing: &nbs p;FOR [place] ONLY &nbs p; - aPTT < 35: & nbsp;Bolus 5000 units, increase rate 300 units/hr&n bsp; - aPTT 35-44:&nbs p; Gagan tony 3000 units, increase rate 200 units/hr&n bsp; - aPTT 45-54:&nbs p; In crease rate 100 units/hr&n bsp; - aPTT 55-85:&nbs p; NO CHANGE&nbs p; - aPTT 86-95:&nbs p; De crease rate 100 units/hr&n bsp; - aPTT 96-120:&nb sp; H old 30 minutes, decrease rate 150 units/hr&n bsp; - aPTT > 120: Hold 60 minutes, decrease rate 200 units/hr&a mp;nbsp;&n bsp;Check aPTT 6 hours after initiation , then Q6H after every change, aPTT Q12H once therapeuti c levels are reached.&n bsp; &nbs p; __ &n bsp;FOR [facility] ONLY - aPTT < 40: & nbsp;Bolus 5000 units, increase rate 300 units/hr&n bsp; - aPTT 40-49:&nbs p; Gagan tony 3000 units, increase rate 200 units/hr&n bsp; - aPTT 50-59:&nbs p; In crease rate 100 units/hr&n bsp; - aPTT 60-85:&nbs p; NO CHANGE&nbs p; - aPTT 86-95:&nbs p; De crease rate 100 units/hr&n bsp; - aPTT 96-120:&nb sp; H old 30 minutes, decrease rate 150 units/hr&n bsp; - aPTT > 120: Hold 60 minutes, decrease rate 200 units/hr&n bsp; Check aPTT 6 hours after initiation , then Q6H after every change, aPTT Q12H once therapeuti c levels are reached.&n bsp; DO NOT ADJUST INITIAL BOLUS OR INITIAL INFUSION RATE.
[facility] Vital Signs Vital Name Observation Time Observation Value Comments S ource Systolic blood pressure 2023-08-24 13:02:00 150 mm[Hg] [facility] Diastolic blood pressure 2023-08-24 13:02:00 88 mm[Hg] [facility] Heart rate 2023-08-24 13:02:00 79 /min [facility] Body temperature 2023-08-24 13:02:00 36.44 Deya [facility] Respiratory rate 2023-08-24 13:02:00 14 /min [facility] Oxygen saturation in Arterial blood by Pulse oximetry 2023-08-24 13:02:00 98 /min [facility] Body weight 2023-08-24 08:43:00 58.469 kg [facility] BMI 2023-08-24 08:43:00 22.83 kg/m2 [facility] Body height 2023-08-22 04:52:00 160 cm [facility] Systolic blood pressure 2023-08-16 16:53:00 154 mm[Hg] [facility] Diastolic blood pressure 2023-08-16 16:53:00 94 mm[Hg] [facility] Heart rate 2023-08-16 16:53:00 82 /min Un[facility] Body temperature 2023-08-16 16:53:00 36.61 Deya [facility] Respiratory rate 2023-08-16 16:53:00 16 /min [facility] Oxygen saturation in Arterial blood by Pulse oximetry 2023-08-16 16:53:00 99 /min [facility] Body weight 2023-08-16 09:56:00 56.473 kg [facility] BMI 2023-08-16 09:56:00 22.05 kg/m2 [facility] Body height 2023-08-15 04:07:00 160 cm [facility] Systolic blood pressure 2023-04-23 18:11:00 141 mm[Hg] [facility] Diastolic blood pressure 2023-04-23 18:11:00 80 mm[Hg] [facility] Heart rate 2023-04-23 18:11:00 101 /min [facility] Body temperature 2023-04-23 18:11:00 35.89 Deya [facility] Respiratory rate 2023-04-23 18:11:00 18 /min [facility] Oxygen saturation in Arterial blood by Pulse oximetry 2023-04-23 18:11:00 98 /min [facility] Body weight 2023-04-22 09:57:00 57.561 kg [facility] BMI 2023-04-22 09:57:00 22.48 kg/m2 [facility] Body height 2023-04-21 20:00:00 160 cm [facility] Procedures Procedure Date / Time Performed Performing Clinician Source POCT GLUCOSE (AUTOMATED) 2023-08-24 16:13:00 Jami Banda [facility] POCT GLUCOSE (AUTOMATED) 2023-08-24 12:34:00 Jami Banda [facility] BASIC METABOLIC PANEL (NA, K, CL, CO2, GLUCOSE, BUN, CREATININE, CA) 2023-08-24 08:42:00 Jerry Fields [facility] CBC WITH DIFF 2023-08-24 08:42:00 Jerry Fields [facility] POCT GLUCOSE (AUTOMATED) 2023-08-24 05:46:00 Jami Banda [facility] BASIC METABOLIC PANEL (NA, K, CL, CO2, GLUCOSE, BUN, CREATININE, CA) 2023-08-24 01:37:00 Jerry Fields [facility] POCT GLUCOSE (AUTOMATED) 2023-08-24 01:27:00 Jami Banda [facility] POCT GLUCOSE (AUTOMATED) 2023-08-23 21:29:00 Jami Banda [facility] BASIC METABOLIC PANEL (NA, K, CL, CO2, GLUCOSE, BUN, CREATININE, CA) 2023-08-23 17:41:00 Jerry Fields [facility] POCT GLUCOSE (AUTOMATED) 2023-08-23 16:42:00 Jami Banda [facility] POCT GLUCOSE (AUTOMATED) 2023-08-23 12:36:00 Jami Banda [facility] POCT GLUCOSE (AUTOMATED) 2023-08-23 09:09:00 Jami Banda [facility] MAGNESIUM 2023-08-23 08:23:00 Jerry Fields [facility] BASIC METABOLIC PANEL (NA, K, CL, CO2, GLUCOSE, BUN, CREATININE, CA) 2023-08-23 08:23:00 Jerry Fields [facility] CBC WITH DIFF 2023-08-23 08:23:00 Jerry Fields [facility] POCT GLUCOSE (AUTOMATED) 2023-08-23 04:52:00 Jami Banda [facility] POCT GLUCOSE (AUTOMATED) 2023-08-23 00:42:00 Jami Banda [facility] BASIC METABOLIC PANEL (NA, K, CL, CO2, GLUCOSE, BUN, CREATININE, CA) 2023-08-23 00:38:00 Jerry Fields [facility] POCT GLUCOSE (AUTOMATED) 2023-08-22 21:18:00 Jami Banda [facility] URIC ACID 2023-08-22 19:21:00 Alyssa Cain [facility] PROTEIN CREAT RATIO URINE RANDOM 2023-08-22 19:21:00 Alyssa Cain [facility] CORTISOL AM 2023-08-22 19:20:00 Alyssa Cain Uni [facility] BASIC METABOLIC PANEL (NA, K, CL, CO2, GLUCOSE, BUN, CREATININE, CA) 2023-08-22 13:21:00 Lyubov Banda [facility] LACTIC ACID WHOLE BLOOD 2023-08-22 09:16:00 Loreta Banda mmad [facility] MAGNESIUM 2023-08-22 08:30:00 Lyubov Banda [facility] TROPONIN I 2023-08-22 08:30:00 Lyubov Banda [facility] CBC WITH DIFF 2023-08-22 08:30:00 [facility] 2023-08-22 08:30:00 Lyubov Banda [facility] PHOSPHORUS 2023-08-22 04:01:00 Lyubov Banda [facility] BASIC METABOLIC PANEL (NA, K, CL, CO2, GLUCOSE, BUN, CREATININE, CA) 2023-08-22 04:01:00 [place] [facility] URINALYSIS 2023-08-22 01:52:00 [place] [facility] CT ABDOMEN PELVIS WO CONTRAST 2023-08-22 01:26:17 Cosme [place] [facility] CREATINE KINASE 2023-08-22 01:24:00 Lyubov Banda [facility] LIPASE 2023-08-22 01:24:00 Cosme [place] [facility] COMP. METABOLIC PANEL (61110) 2023-08-22 01:24:00 Singer [facility] CBC WITH DIFF 2023-08-22 01:24:00 Singer [facility] POCT GLUCOSE (AUTOMATED) 2023-08-16 21:51:00 Yue Fields [facility] POCT GLUCOSE (AUTOMATED) 2023-08-16 16:54:00 Yue Fields [facility] POCT GLUCOSE (AUTOMATED) 2023-08-16 12:45:00 Yue Fields [facility] POCT GLUCOSE (AUTOMATED) 2023-08-16 02:06:00 Yue Fields [facility] POCT GLUCOSE (AUTOMATED) 2023-08-15 21:29:00 Yue Fields [facility] POCT GLUCOSE (AUTOMATED) 2023-08-15 16:39:00 Yue Fields [facility] POCT GLUCOSE (AUTOMATED) 2023-08-15 13:08:00 Yue Fields [facility] TROPONIN I 2023-08-15 10:41:00 [facility] (NA, K, CL, CO2, GLUCOSE, BUN, CREATININE, CA) 2023-08-15 10:41[facility] 2023-08-15 10:[facility]TIGEN 2023-08-15 05:32:00 Juventino [facility] TROPONIN I 2023-08-15 05:32:00 [facility]SE (AUTOMATED) 2023-08-15 04:03:00 Yue Fields [facility] URINALYSIS 2023 22:15:00 Umang Botello [facility] XR CHEST 1 VW 2023 21:46:00 Umang Botello [facility] CT ABDOMEN PELVIS W CONTRAST 2023 21:34:55 [facility] CT TRAUMA HEAD WO CONTRAST 2023 21:33:20 [facility] HB ECG ROUTINE & RHYTHM STRIP 2023 21:10:12 [facility] PHOSPHORUS 2023 20:47:00 Rosmery [facility] CREATINE KINASE 2023 20:47:00 [facility] LIP[facility] 2023 20:47:00 Rosmery [facility] MAGNESIUM 2023 20:47:00 Rosmery [facility] BETA HYDROXY-BUTYRATE 2023 20:47:00 Farida Botello [facility] TROPONIN I 2023 20:47:00 [facility] COMP. METABOLIC PANEL (26523) 2023 20:47:00 [facility] CBC WITH DIFF 2023 20:47:00 Umang Botello [facility] GLYCOSYLATED HEMOGLOBIN (A1C) 2023 20:47:00 Jerry Fields [facility] N-TERMINAL PRO-BNP 2023 20:47:00 Michael Botello [facility] ACUTE CARE VENOUS BLOOD GAS 2023 20:46:00 [facility] LACTIC ACID WHOLE BLOOD 2023 20:46:00 Kian Botello [facility] POCT GLUCOSE(AGE >30DAYS) 2023 20:26:00 [facility] POCT GLUCOSE (AUTOMATED) 2023 20:23:00 [facility] POCT GLUCOSE (AUTOMATED) 2023-04-23 18:09:00 Brien Banda [facility] POCT GLUCOSE (AUTOMATED) 2023-04-23 15:32:00 Brien Banda [facility] MAGNESIUM 2023-04-23 09:09:00 Chet Echavarria [facility] BASIC METABOLIC PANEL (NA, K, CL, CO2, GLUCOSE, BUN, CREATININE, CA) 2023-04-23 09:09:00 Chet Echavarria [facility] POCT GLUCOSE (AUTOMATED) 2023-04-23 02:56:00 Brien Banda [facility] POCT GLUCOSE (AUTOMATED) 2023-04-23 00:32:00 Solo [facility] POCT GLUCOSE (AUTOMATED) 2023-04-22 22:43:00 Solo [facility] POCT GLUCOSE (AUTOMATED) 2023-04-22 20:36:00 Solo [facility] POCT GLUCOSE (AUTOMATED) 2023-04-22 17:44:00 Solo [facility] POCT GLUCOSE (AUTOMATED) 2023-04-22 13:41:00 Solo [facility] MAGNESIUM 2023-04-22 10:37:00 Aaliyah Farnsworth [facility] BASIC METABOLIC PANEL (NA, K, CL, CO2, GLUCOSE, BUN, CREATININE, CA) 2023-04-22 10:37:00 Daja Aaliyah [facility] CBC WITH DIFF 2023-04-22 10:37:00 Daja Aaliyah [facility] POCT GLUCOSE (AUTOMATED) 2023-04-22 03:32:00 Solo [facility] POCT GLUCOSE (AUTOMATED) 2023-04-22 01:34:00 Brien Banda [facility] COMPLETE ECHOCARDIOGRAM DOBUTAMINE STRESS TEST W CONTRAST 2023-04-21 21:15:00 Jeanine Montana [facility] POCT GLUCOSE (AUTOMATED) 2023-04-21 17:36:00 Solo [facility] ACTIVATED PARTIAL THRMPLAS JERMAINE 2023-04-21 16:47:00 Sergio Aponte [facility] TRANSTHORACIC ECHO (TTE) COMPLETE W/ CONTRAST 2023-04-21 15:26:00 Kylie Fuchs [facility] TROPONIN I 2023-04-21 12:39:00 Víctor Fuchs [facility] POCT GLUCOSE (AUTOMATED) 2023-04-21 09:39:00 Banda Brienrey crocker [facility] MAGNESIUM 2023-04-21 09:10:00 Víctor Fuchs Noel [facility] BASIC METABOLIC PANEL (NA, K, CL, CO2, GLUCOSE, BUN, CREATININE, CA) 2023-04-21 09:10:00 Kylie Fuchs Noel [facility] LIPID PANEL (26618)(TOTAL CHOLESTEROL, TRIGLYCERIDES, HDL) 2023-04-21 09:10:00 Kylie Fuchs Noel [facility] CBC WITH DIFF 2023-04-21 09:10:00 Víctor Fuchs amnjyue [facility] ACTIVATED PARTIAL THRMPLAS JERMAINE 2023-04-21 09:10:00 Sergio Aponte [facility] XR CHEST 1 VW 2023-04-21 06:53:47 Víctor Fuchs nicevilleyue [facility] TROPONIN I 2023-04-21 06:32:00 Víctor Fuchs nicevilleyue [facility] IRON PANEL 2023-04-21 06:32:00 Víctor Fuchs nicevilleyue [facility] N-TERMINAL PRO-BNP 2023-04-21 06:32:00 Kylie Fuchs [facility] CRITICAL CARE 2023-04-21 02:54:15 Sergio Aponte [facility] PROTHROMBIN TIME / INR 2023-04-21 02:44:00 Enrique Aponte [facility] ACTIVATED PARTIAL THRMPLAS JERMAINE 2023-04-21 02:44:00 Sergio Aponte [facility] URINALYSIS 2023-04-21 02:33:00 Sergio Aponte [facility] PROTEIN CREAT RATIO URINE RANDOM 2023-04-21 02:33:00 Tavia Fuchsmad [facility] URINE DRUG (IMMUNOASSAY) - COMPREHENSIVE DRUG SCREEN W/O REFLEX 2023-04-21 02:33:00 Sergio Aponte [facility] PHOSPHORUS 2023-04-21 01:55:00 Víctor Fuchs [facility] FERRITIN SERUM 2023-04-21 01:55:00 Víctor Fuchs Noel [facility] TROPONIN I 2023-04-21 01:55:00 [facility] THYROID STIMULATING HORMONE 2023-04-21 01:55:00 Kylie Fuchs Noel [facility] COMP. METABOLIC PANEL (63956) 2023-04-21 01:55:00 Sergio Aponte [facility] ETHANOL 2023-04-21 01:55:00 [facility] CBC WITH DIFF 2023-04-21 01:55:00 Sergio Aponte [facility] GLYCOSYLATED HEMOGLOBIN (A1C) 2023-04-21 01:55:00 Kylie Fuchs Noel [facility] POCT GLUCOSE (AUTOMATED) 2023-04-21 01:54:00 Yue Aponte [facility] EKG-12 LEAD 2023-04-21 01:51:41 Bret Banda [facility] Encounters Start Date/Time End Date/Time Encounter Type Admission Type Attending Clinicians Care Facility Care Department Encounter ID Source 2023-08-21 19:47:00 2023-08-24 16:32:00 Hospital Encounter [place] Mohammad A. [facility] 1..840.114 350.1.13.10 4.2.7.2.686 [id number] [facility] 2023-08-20 00:00:00 2023-08-20 00:00:00 Patient Outreach Rosalie Irizarry 1..840.114 350.1.13.10 4.2.7.2.686 [id number] [facility] 2023-08-17 00:00:00 2023-08-17 00:00:00 Telephone Ricky Rivera [facility] 1..114 350.1.13.10 4.2.7.2.686 [id number] [facility] 2023 14:42:00 2023-08-16 18:40:00 Hospital Encounter Umang Botello, Vlad Vegalani [facility] 1.2840.114 350.1.13.10 4.2.7.2.686 [id number] [facility] 2023-04-27 00:00:00 2023-04-27 00:00:00 Transition of Care Jeannette DawnCj JANIS BAEZ 1.2.114 350.1.13.10 4.2.7.2.686 [id number] [facility] 2023-04-20 19:48:00 2023-04-23 19:54:00 Inpatient X [facility] [id number] [facility] 2023-04-20 19:48:00 2023-04-23 19:54:00 Hospital Encounter Sergio Aponte Rizwan Dacso, Matthew M [facility] 1.114 350.1.13.10 4.2.7.2.686 [id number] [facility] Results Test Description Test Time Test Comments Results Result Co mments Source [facility]2023-08-24 12:35:27* Test Item Value Reference Range Interpretation Comme nts POCT GLU (test code = 1958610280) 204 mg/dL 70-110 H Lab Interpretation (test cod e = 52700-3) [facility] (NA, K, CL, CO2, GLUCOSE, BUN, CREATININE, CA)2023-08-24 09:45:39* Test Item Value Reference Range Interpretation Comme nts NA (test code = 8851827502) 133 mmol/L 135-145 L K (test code = 7479431808) 3.7 mmol/L 3.5-5.0 CL (test code = 6775376804) 98 mmol/L 98-108 CO2 TOTAL (test code = 9207910151) 27 mmol/L 23-31 AGAP (test code = 5195179176) 8 2-16 BUN (test code = 3463176515) 13 mg/dL 7-23 GLUCOSE (test code = 6956675542) 188 mg/dL 70-110 H CREATININE (test code = 2160-0) 0.63 mg/dL 0.60-1.25 CALCIUM (test code = 7083661273) 9.4 mg/dL 8.6-10.6 eGFR (test code = 35788-8) 111.6 mL/min/1.73m2 CKD-EPI eGFR (2020). Assuming creatinine has been stable day-to-day for at least three months, the eGFR indicates Category G1 (>= 90 mL/min/1.73 m2) Lab Interpretation (test code = 46583-8) Abnormal [facility] [id number] 09:21:26* Test Item Value Reference Range Interpretation Comme nts WBC (test code = 6690-2) 5.88 4.20-10.70 RBC (test code = 789-8) 3.90 4.26-5.52 L HGB (test code = 718-7) 12.0 g/dL 12.2-16.4 L HCT (test code = 4544-3) 34.1 % 38.4-49.3 L MCV (test code = 787-2) 87.4 fL 81.7-95.6 MCH (test code = 785-6) 30.8 pg 26.1-32.7 MCHC (test code = 786-4) 35.2 g/dL 31.2-35.0 H RDW-SD (test code = 30863-9) 36.9 fL 38.5-51.6 L RDW-CV (test code = 788-0) 11.6 % 12.1-15.4 L PLT (test code = 777-3) 407 150-328 H MPV (test code = 09010-4) 9.5 fL 9.8-13.0 L NRBC/100 WBC (test code = 6314356459) 0.0 0.0-10.0 NRBC x10^3 (test code = 3335968112) See_Comment [Automated messa ge] The system which generated this result transmitted reference range: 10*3/?L. The reference range was not used to interpret this result as normal/abnormal. GRAN MAT (NEUT) % (test code = 770-8) 63.1 % IMM GRAN % (test code = 7239349094) 0.30 % LYMPH % (test code = 736-9) 21.1 % MONO % (test code = 5905-5) 8.3 % EOS % (test code = 713-8) 6.5 % BASO % (test code = 706-2) 0.7 % GRAN MAT x10^3(ANC) (test code = 0235339037) 3.71 10*3/uL 1.99-6.95 IMM GRAN x10^3 (test code = 4307703583) 0.00-0.06 LYMPH x10^3 (test code = 731-0) 1.24 10*3/uL 1.09-3.23 MONO x10^3 (test code = 742-7) 0.49 10*3/uL 0.36-1.02 EOS x10^3 (test code = 711-2) 0.38 10*3/uL 0.06-0.53 BASO x10^3 (test code = 704-7) 0.04 10*3/uL 0.01-0.09 Lab Interpretation (test code = 45821-9) [facility]normal [facility]2023-08-24 05:47:46* Test Item Value Reference Range Interpretation Comme nts POCT GLU (test code = 1967473368) 126 mg/dL 70-110 H Lab Interpretation (test cod e = 01314-1) Abnormal [facility] Metabolic Panel (NA, K, CL, CO2, GLUCOSE, BUN, CREATININE, CA)2023-08-24 02:27:27* Test Item Value Reference Range Interpretation Comme nts NA (test code = 4069116527) 129 mmol/L 135-145 L K (test code = 7709552306) 3.9 mmol/L 3.5-5.0 CL (test code = 5322863951) 96 mmol/L 98-108 L CO2 TOTAL (test code = 7653729345) 29 mmol/L 23-31 AGAP (test code = 1184628882) 4 2-16 BUN (test code = 4668519032) 14 mg/dL 7-23 GLUCOSE (test code = 8833242085) 185 mg/dL 70-110 H CREATININE (test code = 2160-0) 0.56 mg/dL 0.60-1.25 L CALCIUM (test code = 3181670971) 9.2 mg/dL 8.6-10.6 eGFR (test code = 90091-1) 115.7 mL/min/1.73m2 CKD-EPI eGFR (2020). Assuming creatinine has been stable day-to-day for at least three months, the eGFR indicates Category G1 (>= 90 mL/min/1.73 m2) Lab Interpretation (test code = 46006-0) Abnormal [facility] GLUCOSE (AUTOMATED)2023-08-24 01:28:28* Test Item Value Reference Range Interpretation Comme nts POCT GLU (test code = 9379750103) 210 mg/dL 70-110 H Lab Interpretation (test cod e = 50931-0) Abnormal [facility] GLUCOSE (AUTOMATED)2023-08-23 21:30:04* Test Item Value Reference Range Interpretation Comme nts POCT GLU (test code = 5729195740) 149 mg/dL 70-110 H Lab Interpretation (test cod e = 22964-7) Abnormal [facility] GLUCOSE (AUTOMATED)2023-08-23 16:45:20* Test Item Value Reference Range Interpretation Comme nts POCT GLU (test code = 0493854753) 147 mg/dL 70-110 H Lab Interpretation (test cod e = 06762-9) Abnormal [facility] GLUCOSE (AUTOMATED)2023-08-23 12:36:56* Test Item Value Reference Range Interpretation Comme nts POCT GLU (test code = 0775710620) 131 mg/dL 70-110 H Lab Interpretation (test cod e = 51668-9) Abnormal [facility] GLUCOSE (AUTOMATED)2023-08-23 09:17:23* Test Item Value Reference Range Interpretation Comme nts POCT GLU (test code = 7961999320) 154 mg/dL 70-110 H Lab Interpretation (test cod e = 49319-0) Abnormal [facility] GLUCOSE (AUTOMATED)2023-08-23 05:03:01* Test Item Value Reference Range Interpretation Comme nts POCT GLU (test code = 2013398046) 183 mg/dL 70-110 H Lab Interpretation (test cod e = 26163-1) Abnormal [facility] Metabolic Panel (NA, K, CL, CO2, GLUCOSE, BUN, CREATININE, CA)2023-08-23 01:49:58* Test Item Value Reference Range Interpretation Comme nts NA (test code = 6601551201) 132 mmol/L 135-145 L K (test code = 2836574158) 4.1 mmol/L 3.5-5.0 CL (test code = 0208918030) 101 mmol/L 98-108 CO2 TOTAL (test code = 1120388405) 28 mmol/L 23-31 AGAP (test code = 6484830915) 3 2-16 BUN (test code = 2057095176) 17 mg/dL 7-23 GLUCOSE (test code = 8373959348) 149 mg/dL 70-110 H CREATININE (test code = 2160-0) 0.97 mg/dL 0.60-1.25 CALCIUM (test code = 9464229150) 8.4 mg/dL 8.6-10.6 L eGFR (test code = 56963-3) 91.6 mL/min/1.73m2 CKD-EPI eGFR (2020). Assuming creatinine has been stable day-to-day for at least three months, the eGFR indicates Category G1 (>= 90 mL/min/1.73 m2) Lab Interpretation (test code = 98065-4) Abnormal [facility] GLUCOSE (AUTOMATED)2023-08-23 00:43:06* Test Item Value Reference Range Interpretation Comme nts POCT GLU (test code = 3335785778) 126 mg/dL 70-110 H Lab Interpretation (test cod e = 68856-5) [facility]normal [facility] [id number] 22:59:03* Test Item Value Reference Range Interpretation Comme nts IBRAHIMA AM (test code = 0458945107) 24.7 ug/dL 4.5-23.0 H GINA (test code = GINA) Biotin has been reported to cause a positive bias, interpret results relative to patient's use of biotin. Lab Interpretation (test code = 32443-4) [facility]2023-08-22 21:29:10* Test Item Value Reference Range Interpretation Comme [facility] POCT GLU (test code = 9081707456) 341 mg/dL 70-110 H Lab Interpretation (test cod e = 50047-9) [facility] [id number] 19:53:59* Test Item Value Reference Range Interpretation Comme [facility] URIC ACID (test code = 5507007630) 6.4 mg/dL 3.6-8.0 Lab Interpretation (test cod e = 01464-6) Normal [facility] (NA, K, CL, CO2, GLUCOSE, BUN, CREATININE, CA)2023-08-22 14:43:15* Test Item Value Reference Range Interpretation Comme [facility] NA (test code = 1286073950) 138 mmol/L 135-145 K (test code = 6089938480) 4.6 mmol/L 3.5-5.0 CL (test code = 7647486717) 102 mmol/L 98-108 CO2 TOTAL (test code = 5413556232) 28 mmol/L 23-31 AGAP (test code = 1756673174) 8 2-16 BUN (test code = 7452064698) 34 mg/dL 7-23 H GLUCOSE (test code = 7006238558) 224 mg/dL 70-110 H CREATININE (test code = 2160-0) 1.89 mg/dL 0.60-1.25 H CALCIUM (test code = 1163668965) 9.4 mg/dL 8.6-10.6 eGFR (test code = 65745-4) 41.1 mL/min/1.73m2 CKD-EPI eGFR (2020). Assuming creatinine has been stable day-to-day for at least three months, the eGFR indicates Category G3b (30 - 44 mL/min/1.73 m2) Lab Interpretation (test code = 95277-0) [facility] Etmmic3799-70-26 14:42:45* Test Item Value Reference Range Interpretation Comme nts CK (test code = 0855785338) 224 U/L 33-194 H Lab Interpretation (test cod e = 30628-0) Abnormal [facility]intePhosphorus Hicof1205-15-15 12:10:01* Test Item Value Reference Range Interpretation Comme nts PHOSPHORUS (test code = 7805471423) 5.8 mg/dL 2.5-5.0 H Lab Interpretation (test cod e = 38729-1) [facility]normal [facility] (NA, K, CL, CO2, GLUCOSE, BUN, CREATININE, CA)2023-08-22 04:41:19* Test Item Value Reference Range Interpretation Comme nts NA (test code = 6417403868) 124 mmol/L 135-145 L K (test code = 7541238201) 4.7 mmol/L 3.5-5.0 CL (test code = 7963662554) 93 mmol/L 98-108 L CO2 TOTAL (test code = 6766331275) 18 mmol/L 23-31 L AGAP (test code = 4103484934) 13 2-16 BUN (test code = 3351333526) 68 mg/dL 7-23 H GLUCOSE (test code = 2734936633) 116 mg/dL 70-110 H CREATININE (test code = 2160-0) 6.60 mg/dL 0.60-1.25 H CALCIUM (test code = 5577534859) 9.0 mg/dL 8.6-10.6 eGFR (test code = 38684-7) 9.2 mL/min/1.73m2 CKD-EPI eGFR (2020). Assuming creatinine has been stable day-to-day for at least three months, the eGFR indicates Category G5 (<= 14mL/min/1.73 m2) Lab Interpretation (test code = 49609-7) [facility]normal [facility]BD[facility] PELVIS WO [id number] 02:22:05Exam: CT Abdomen and Pelvis without Contrast, 08/21/2023 8:00 PM. Ordering Physician: COSME SPRING. History: Bowel obstruction suspected Stone suspected. Comparison: CT abdomen pelvis 2023. Technique: CT abdomen and pelvis was obtained without intravenous contrast.CT was performed according to ALARA (As Low As Reasonably Achievable). Technical Quality: Adequate. Findings: Lack of intravenous contrast limits evaluation of the abdomen and pelvis. LOWER CHEST:Mild bibasilar atelectasis. ABDOMEN/PELVIS:Liver: Normal.Gallbladder/biliary: Normal gallbladder. No biliary ductal dilation.Pancreas: Normal.Spleen: Normal. Adrenal glands: Normal.Kidneys and ureters: Persistent moderate bilateral hydroureteronephrosiswith significant perinephric stranding. Bilateral hypodensities which areseen to a better degree on prior reflect renal cyst. No obstructive stone.Bladder: Markedly distended urinary bladder without stones or wallthickening.Reproductive organs: Prostatomegaly. Partially imaged scrotal edema. Stomach/bowel: No bowel obstruction. No bowel wall thickening. Normalappendix. Lymph nodes: No lymphadenopathy.Peritoneum: No intraperitoneal free air. No intraperitoneal free fluid.Vessels: Atherosclerosis without aneurysm. MUSCULOSKELETAL:Bones: No acute osseous finding. Subacute/chronic left-sided rib fractures.Soft tissues: Unremarkable.[facility]. Metabolic Panel (55035) 2023-08-22 02:21:33* Test Item Value Reference Range Interpretation Comme nts NA (test code = 6437817164) 120 mmol/L 135-145 L K (test code = 6014135197) 4.8 mmol/L 3.5-5.0 CL (test code = 9685500148) 85 mmol/L 98-108 L CO2 TOTAL (test code = 3183805127) 21 mmol/L 23-31 L AGAP (test code = 7851296915) 14 2-16 BUN (test code = 4218423800) 70 mg/dL 7-23 H GLUCOSE (test code = 6027322550) 97 mg/dL 70-110 CREATININE (test code = 2160-0) 8.39 mg/dL 0.60-1.25 H TOTAL BILI (test code = 7581792938) 0.7 mg/dL 0.1-1.1 CALCIUM (test code = 1625571482) 8.8 mg/dL 8.6-10.6 T PROTEIN (test code = 9811040829) 7.2 g/dL 6.3-8.2 ALBUMIN (test code = 5603422848) 4.1 g/dL 3.5-5.0 ALK PHOS (test code = 6850644318) 95 U/L 34-122 ALTv (test code = 1742-6) 12 U/L 5-50 AST(SGOT) (test code = 9850285204) 24 U/L 13-40 eGFR (test code = 31488-2) 6.9 mL/min/1.73m2 CKD-EPI eGFR (2020). Assuming creatinine has been stable day-to-day for at least three months, the eGFR indicates Category G5 (<= 14mL/min/1.73 m2) Lab Interpretation (test code = 83143-8) Abnormal [facility]inteLipase2024-04-28 02:15:32* Test Item Value Reference Range Interpretation Comme nts LIPASE (test code = 5793740944) 758 U/L 0-220 H Lab Interpretation (test cod e = 47683-6) Abnormal [facility] PointeCbc with Erfn5046-33-28 01:58:31* Test Item Value Reference Range Interpretation Comme nts WBC (test code = 6690-2) 14.75 4.20-10.70 H RBC (test code = 789-8) 4.10 4.26-5.52 L HGB (test code = 718-7) 12.6 g/dL 12.2-16.4 HCT (test code = 4544-3) 35.3 % 38.4-49.3 L MCV (test code = 787-2) 86.1 fL 81.7-95.6 MCH (test code = 785-6) 30.7 pg 26.1-32.7 MCHC (test code = 786-4) 35.7 g/dL 31.2-35.0 H RDW-SD (test code = 35851-6) 36.0 fL 38.5-51.6 L RDW-CV (test code = 788-0) 11.5 % 12.1-15.4 L PLT (test code = 777-3) 312 150-328 MPV (test code = 04529-1) 9.4 fL 9.8-13.0 L NRBC/100 WBC (test code = 9578158518) 0.0 0.0-10.0 NRBC x10^3 (test code = 8582971980) See_Comment [Automated message] The system which generated this result transmitted reference range: 10*3/?L. The reference range was not used to interpret this result as normal/abnormal. GRAN MAT (NEUT) % (test code = 770-8) 82.7 % IMM GRAN % (test code = 5670550750) 0.50 % LYMPH % (test code = 736-9) 6.7 % MONO % (test code = 5905-5) 9.8 % EOS % (test code = 713-8) 0.2 % BASO % (test code = 706-2) 0.1 % GRAN MAT x10^3(ANC) (test code = 8860098568) 12.19 10*3/uL 1.99-6.95 H IMM GRAN x10^3 (test code = 0620854695) 0.08 10*3/uL 0.00-0.06 H LYMPH x10^3 (test code = 731-0) 0.99 10*3/uL 1.09-3.23 L MONO x10^3 (test code = 742-7) 1.44 10*3/uL 0.36-1.02 H EOS x10^3 (test code = 711-2) 0.03 10*3/uL 0.06-0.53 L BASO x10^3 (test code = 704-7) 0.01-0.09 Lab Interpretation (test code = 26993-7) Abnormal [facility] GLUCOSE (AUTOMATED)2023-08-16 22:02:57* Test Item Value Reference Range Interpretation Comme nts POCT GLU (test code = 3631362430) 112 mg/dL 70-110 H Lab Interpretation (test cod e = 88827-6) Abnormal [facility] GLUCOSE (AUTOMATED)2023-08-16 16:59:58* Test Item Value Reference Range Interpretation Comme nts POCT GLU (test code = 4477108975) 127 mg/dL 70-110 H Lab Interpretation (test cod e = 60182-3) Abnormal [facility] GLUCOSE (AUTOMATED)2023-08-16 12:48:23* Test Item Value Reference Range Interpretation Comme nts POCT GLU (test code = 7263765495) 175 mg/dL 70-110 H Lab Interpretation (test cod e = 46316-1) Abnormal [facility] GLUCOSE (AUTOMATED)2023-08-16 02:07:02* Test Item Value Reference Range Interpretation Comme nts POCT GLU (test code = 2880587427) 195 mg/dL 70-110 H Notified Provide r Lab Interpretation (test code = 93323-0) Abnormal [facility] GLUCOSE (AUTOMATED)2023-08-15 21:36:15* Test Item Value Reference Range Interpretation Comme nts POCT GLU (test code = 3833374043) 284 mg/dL 70-110 H Lab Interpretation (test cod e = 04014-5) Abnormal [facility] GLUCOSE (AUTOMATED)2023-08-15 16:56:02* Test Item Value Reference Range Interpretation Comme nts POCT GLU (test code = 3618991391) 74 mg/dL 70-110 Lab Interpretation (test cod e = 47177-2) Normal [facility] GLUCOSE (AUTOMATED)2023-08-15 13:12:34* Test Item Value Reference Range Interpretation Comme nts POCT GLU (test code = 7553272445) 258 mg/dL 70-110 H Lab Interpretation (test cod e = 01175-8) Abnormal [facility] GLUCOSE (AUTOMATED)2023-08-15 04:04:43* Test Item Value Reference Range Interpretation Comme nts POCT GLU (test code = 6913837931) 120 mg/dL 70-110 H Lab Interpretation (test cod e = 43724-9) Abnormal [facility] PointeGlycosylated Hemoglobin (A1C)2023-08-15 01:17:32* Test Item Value Reference Range Interpretation Comme nts HGB A1C (test code = 4548-4) 8.9 % 4.0-5.7 H GINA (test code = GINA) Reference RangesNormal: <5.7%Prediabetes: 5.7 - 6.4%Diabetes: > 6.5% Lab Interpretation (test code = 36090-2) [facility]normal [facility]inteBeta Ejjhbtp-Bjirepqv3843-16-21 01:00:45* Test Item Value Reference Range Interpretation Comme nts BOH (test code = 8709917072) 0.5 mmol/L GINA (test code = GINA) Normal Ranges: ? ? Nonfasting ? Less than 0.1 mmol/L ? ? Overnight Fast ? ? ? Less than 0.4 mmol/L ? ? Fasting (1-2 weeks) ?6-8 mmol/L Test developed and characteristics determined by [facility] Laboratory Services. [facility]inteCreatine Xgpmgy3835-62-75 23:07:16* Test Item Value Reference Range Interpretation Comme nts CK (test code = 6270312269) 148 U/L 33-194 Lab Interpretation (test cod e = 14365-3) Normal [facility] PointeTROPONIN [id number] 22:18:16* Test Item Value Reference Range Interpretation Comme nts TROPONIN I (test code = 4959303183) 0.081 ng/mL <=0.034 H GINA (test code = GINA) Reference (Normal) Range (defined by the 99th percentile reference limit): <= 0.034 ng/mL Note: Cardiac troponin begins to rise 3-4 hours after the onset of ischemia. Repeat in 4-6 hours if the sample was drawn within 3-4 hours of the onset of the symptom and found normal. Diagnosis of myocardial injury is made with acute changes in cTn concentrations with at least one serial sample above the 99th percentile upper reference limit (URL), taken together with the patient's clinical presentation. Biotin has been reported to cause a negative bias, interpret results relative to patient's use of biotin. Lab Interpretation (test code = 55263-8) Abnormal [facility] PointeN-TERMINAL [id number]-[id number] 22:15:55* Test Item Value Reference Range Interpretation Comme [facility] NT-proBNP (test code = 17765-9) 999 pg/mL <=125 H GINA (test code = GINA) Positive: Heart Failure Likely Lab Interpretation (test code = 23408-1) Abnormal [facility] PointeMagnesium2024-04-20 22:07:17* Test Item Value Reference Range Interpretation Comme nts MAGNESIUM (test code = 6380423860) 1.8 mg/dL 1.7-2.4 Lab Interpretation (test cod e = 33271-2) Normal [facility]inteCOMP. METABOLIC PANEL (62208)2023 22:06:57* Test Item Value Reference Range Interpretation Comme nts NA (test code = 0956983623) 130 mmol/L 135-145 L K (test code = 9594811857) 3.4 mmol/L 3.5-5.0 L CL (test code = 0404761980) 93 mmol/L 98-108 L CO2 TOTAL (test code = 4964533895) 26 mmol/L 23-31 AGAP (test code = 3335826937) 11 2-16 BUN (test code = 2695092837) 39 mg/dL 7-23 H GLUCOSE (test code = 3579857169) 142 mg/dL 70-110 H CREATININE (test code = 2160-0) 2.40 mg/dL 0.60-1.25 H TOTAL BILI (test code = 9681080285) 1.2 mg/dL 0.1-1.1 H CALCIUM (test code = 5028597016) 9.1 mg/dL 8.6-10.6 T PROTEIN (test code = 7347513047) 7.7 g/dL 6.3-8.2 ALBUMIN (test code = 0669381940) 4.2 g/dL 3.5-5.0 ALK PHOS (test code = 0721647977) 102 U/L 34-122 ALTv (test code = 1742-6) 16 U/L 5-50 AST(SGOT) (test code = 5116381783) 26 U/L 13-40 eGFR (test code = 88298-8) 30.9 mL/min/1.73m2 CKD-EPI eGFR (2020). Assuming creatinine has been stable day-to-day for at least three months, the eGFR indicates Category G3b (30 - 44 mL/min/1.73 m2) Lab Interpretation (test code = 16037-4) Abnormal [facility]intePhosphorus2024-04-20 22:06:37* Test Item Value Reference Range Interpretation Comme nts PHOSPHORUS (test code = 9508146694) 4.9 mg/dL 2.5-5.0 Lab Interpretation (test cod e = 55660-4) Normal [facility]inteLIPASE2024-04-20 22:06:17* Test Item Value Reference Range Interpretation Comme nts LIPASE (test code = 3196469046) 204 U/L 0-220 Lab Interpretation (test cod e = 75468-7) Normal [facility] PointeCBC WITH [id number] 21:54:56* Test Item Value Reference Range Interpretation Comme nts WBC (test code = 6690-2) 12.69 4.20-10.70 H RBC (test code = 789-8) 4.29 4.26-5.52 HGB (test code = 718-7) 13.4 g/dL 12.2-16.4 HCT (test code = 4544-3) 38.0 % 38.4-49.3 L MCV (test code = 787-2) 88.6 fL 81.7-95.6 MCH (test code = 785-6) 31.2 pg 26.1-32.7 MCHC (test code = 786-4) 35.3 g/dL 31.2-35.0 H RDW-SD (test code = 99998-3) 38.1 fL 38.5-51.6 L RDW-CV (test code = 788-0) 11.8 % 12.1-15.4 L PLT (test code = 777-3) 235 150-328 MPV (test code = 99989-4) 11.1 fL 9.8-13.0 NRBC/100 WBC (test code = 6280853414) 0.0 0.0-10.0 NRBC x10^3 (test code = 5740487403) See_Comment [Automated message] The system which generated this result transmitted reference range: 10*3/?L. The reference range was not used to interpret this result as normal/abnormal. GRAN MAT (NEUT) % (test code = 770-8) 80.3 % IMM GRAN % (test code = 8482338166) 0.60 % LYMPH % (test code = 736-9) 8.7 % MONO % (test code = 5905-5) 10.0 % EOS % (test code = 713-8) 0.2 % BASO % (test code = 706-2) 0.2 % GRAN MAT x10^3(ANC) (test code = 6910735478) 10.18 10*3/uL 1.99-6.95 H IMM GRAN x10^3 (test code = 5473441779) 0.07 10*3/uL 0.00-0.06 H LYMPH x10^3 (test code = 731-0) 1.11 10*3/uL 1.09-3.23 MONO x10^3 (test code = 742-7) 1.27 10*3/uL 0.36-1.02 H EOS x10^3 (test code = 711-2) 0.03 10*3/uL 0.06-0.53 L BASO x10^3 (test code = 704-7) 0.03 10*3/uL 0.01-0.09 Lab Interpretation (test code = 30869-4) Abnormal [facility] PointeXR CHEST 1 [id number] 21:49:58EXAM: XR CHEST 1 2023 4:38 PM HISTORY: 58 years-old Male with r/o infilrate . TECHNIQUE: Portable AP view of the chest. COMPARISON: 04/21/2023 FINDINGS: Lines and tubes: None. Cardiomediastinal: The cardiomediastinal silhouette is unremarkable. Lungs and pleura: The lungs are clear. No focal consolidation,pneumothorax, or pleural effusion is seen. Included osseous structures show no acuteabnormality.[facility]inteCT ABDOMEN PELVIS W [id number] 21:45:03EXAM: CT ABDOMEN AND PELVIS WITH CONTRAST HISTORY: Abdominal abscess/infection suspected COMPARISON: None. TECHNIQUE: Contiguous axial imaging was performed following administrationof intravenous contrast. Coronal and sagittal reconstructions wereobtained. FINDINGS: Visualized lung bases are clear.Coronary artery calcification is noted. Hypodensity adjacent to the falciform ligament may be focalfattyinfiltration. Subcentimeter hypodensity in the left hepatic lobe is toosmall to characterize. The gallbladder, spleen, pancreas and adrenal glandsare normal. There is a 3.5 cm cyst at the lower pole of the left kidney and a 1.5 cmcyst at the lower pole the right kidney. There is bilateral perinephric andperiureteral stranding. There is moderate hydroureteronephrosis. The prostate gland is not significantly enlarged. The bladder isprominently distended extending above the umbilicus. The aorta and iliac arteries are normal in caliber. Atherosclerotic changeis present within the internal iliac arteries. Minimal atherosclerosis ofthe aorta and its branches. There is moderate fecal materialin the colon.There is no bowel wall thickening or obstruction. Scattered diverticula inthe colon The appendix is normal. There is trace free fluid/edema in theabdomen and pelvis. No free air or drainable fluid collection. Nolymphadenopathy. Degenerative change involving the spine, sacroiliac jointsand hips ispresent.[facility] TRAUMA HEAD WO [id number] 21:38:37FULL RESULT: Examination: CT TRAUMA HEAD WO CONTRAST on 2023 4:16 PM Clinical Indication: Headache, hypertensive Comparison: None Technique: Noncontrast imaging was obtained from base to vertex.Findings: The sulci and ventricles were unremarkable. There may be subtlewhite matter microvascularischemic changes, notably in the anteriorperiventricular region, but there is no evidence for hemorrhage or otherclearly acute intracranial process.[facility] PointeLanmic Acid Whole Qldim5987-26-35 21:30:25* Test Item Value Reference Range Interpretation Comme [facility] LACTIC ACID (test code = 7455282715) 1.58 mmol/L 0.50-2.20 Lab Interpretation (test cod e = 07205-9) Normal [facility] Venous Blood Pju6273-02-06 21:30:25 * Test Item Value Reference Range Interpretation Comme nts PH (test code = 7713095322) 7.34 7.32-7.42 PCO2 NOY (test code = 6588544292) 45 41-51 PO2 NOY (test code = 6688701862) 24 25-40 L HCO3 NOY (test code = 6360923788) 24 24-28 AC VBE(BEAKER) (test code = 1689927105) -1.9 mEq/L Lab Interpretation (test cod e = 36495-8) Abnormal [facility] GLUCOSE (AUTOMATED)2023 20:26:17* Test Item Value Reference Range Interpretation Comme nts POCT GLU (test code = 0896083460) 165 mg/dL 70-110 H Lab Interpretation (test cod e = 91352-3) Abnormal [facility] GLUCOSE(AGE >30DAYS)2023 20:26:00* Test Item Value Reference Range Interpretation Comme nts POCT Glu (age>30days) (test code = 3342) 165 mg/dL 70-110 A Lab Interpretation (test cod e = 65743-1) Abnormal [facility] GLUCOSE (AUTOMATED)2023-04-23 18:15:28* Test Item Value Reference Range Interpretation Comme nts POCT GLU (test code = 2761606978) 218 mg/dL 70-110 H Lab Interpretation (test cod e = 63771-5) [facility]normal [facility]23-[facility]23 15:35:23* Test Item Value Reference Range Interpretation Comme nts POCT GLU (test code = 9999935268) 186 mg/dL 70-110 H Lab Interpretation (test cod e = 80284-6) Abnormal [facility] GLUCOSE (AUTOMATED)2023-04-23 02:57:57* Test Item Value Reference Range Interpretation Comme nts POCT GLU (test code = 0555638294) 82 mg/dL 70-110 Lab Interpretation (test cod e = 94746-4) Normal [facility] GLUCOSE (AUTOMATED)2023-04-23 00:33:51* Test Item Value Reference Range Interpretation Comme nts POCT GLU (test code = 0067827579) 181 mg/dL 70-110 H Lab Interpretation (test cod e = 22080-7) Abnormal [facility] GLUCOSE (AUTOMATED)2023-04-22 22:54:22* Test Item Value Reference Range Interpretation Comme nts POCT GLU (test code = 3031017798) 127 mg/dL 70-110 H Lab Interpretation (test cod e = 37175-3) Abnormal [facility] GLUCOSE (AUTOMATED)2023-04-22 20:37:54* Test Item Value Reference Range Interpretation Comme nts POCT GLU (test code = 9279333901) 230 mg/dL 70-110 H Lab Interpretation (test cod e = 39517-6) [facility]normal [facility]2023-04-22 17:46:23* Test Item Value Reference Range Interpretation Comme nts POCT GLU (test code = 6632871812) 144 mg/dL 70-110 H Lab Interpretation (test cod e = 87500-3) Abnormal [facility] GLUCOSE (AUTOMATED)2023-04-22 13:42:26* Test Item Value Reference Range Interpretation Comme nts POCT GLU (test code = 9397160616) 229 mg/dL 70-110 H Lab Interpretation (test cod e = 77586-6) Abnormal [facility] GLUCOSE (AUTOMATED)2023-04-22 03:33:49* Test Item Value Reference Range Interpretation Comme nts POCT GLU (test code = 7514399196) 222 mg/dL 70-110 H Lab Interpretation (test cod e = 94034-8) Abnormal [facility] GLUCOSE (AUTOMATED)2023-04-22 01:36:03* Test Item Value Reference Range Interpretation Comme nts POCT GLU (test code = 9818833731) 282 mg/dL 70-110 H Lab Interpretation (test cod e = 74264-9) [facility]normal [facility]Echocardiogram dobutamine stress test 2023-04-21 22:26:30* Test Item Value Reference Range Interpretation Comme nts Height (test code = 6060814846) 63 in Weight (test code = 7599416921) 130 lbs Systolic BP (test code = 0574827209) 122 mmHg Diastolic BP (test code = 5386961260) 81 mmHg Heart Rate (test code = 0379468853) 105 bpm BSA (test code = 9206412312) 1.[address] Depresion (mm) (test code = 8992776153) [address] Depression (mm) (test code = 6355695997) 0 mm Radiology Study observation (narrative) (test code = 83003-0) GINA (test code = GINA) Table formatting from the original result was not included. ?Stress: A pharmacological stress test was performed using dobutamine. The patient reported no symptoms during the stress test. Blood pressure demonstrated a normal response and heart rate demonstrated a normal response to stress. ?Resting?ECG: Normal sinus rhythm. Resting ECG shows no ST-segment deviation. The ECG shows normal sinus rhythm. ?Stress?ECG: No ST deviation was noted. The ECG was negative for ischemia. ?Post-stress: The post-stress echo shows appropriate increased thickness to all myocardial segments. Left ventricle cavity appears normal post-stress. The left ventricle systolic function is normal post-stress. The post-stress echo showed normal wall motion. ?Post-stress?Impression: Adequate inotropic response, adequate chronotropic response and negative stress echocardiography study for inducible ischemia. The ECG and Echo portions of the stress study are concordant with no evidence of inducible myocardial ischemia. ?Pre-Stress TTE in a seperate report. Stress ResultsProtocol: DSE Maximum Predicted HR: 165 Target HR: 140 % Maximum Predicted HR: 87 Stage Duration (mm:ss) Heart Rate (bpm) BP Dose Comment Baseline ?97 122/81 ?Definity Peak 15:00 146 117/84 40 Medication stopped due to THR achieved Recovery 4 4:00 130 126/86 ? ?Recovery 10 10:00 116 121/86 ? ?Add'l Recovery 12:50 107 125/86 ?Heart rate not back to base line Stress Duration: 15:00 Recovery Time: 22:50 Maximum Stress HR: 146 ? Study DetailsA Dobutamine stress echocardiogram was performed using 2D, color flow Doppler and spectral Doppler. 2 mL of Definity ultrasound enhancing agent used. rcResting ECGNormal sinus rhythm. Resting ECG shows no ST-segment deviation. The ECG shows normal sinus rhythm.Stress FindingsA pharmacological stress test was performed using dobutamine. The patient reported no symptoms during the stress test. Blood pressure demonstrated a normal response and heart rate demonstrated a normal response to stress.Stress ECGNo ST deviation was noted. The ECG was negative for ischemia.Echo Post StressThe post-stress echo shows appropriate increased thickness to all myocardial segments. Left ventricle cavity appears normal post-stress. The left ventricle systolic function is normal post-stress. The post-stress echo showed normal wall motion.Study ImpressionAdequate inotropic response, adequate chronotropic response and negative stress echocardiography study for inducible ischemia. The ECG and Echo portions of the stress study are concordant with no evidence of inducible myocardial ischemia.Wall Scoring BaselineScore Index: 1.00The left ventricular wall motion is normal.Wall Scoring Peak DoseScore Index: 1.00The left ventricular wall motion is globally hyperkinetic. [facility]inteTransthoracic echo (TTE)2023-04-21 18:05:03* Test Item Value Reference Range Interpretation Comme nts Height (test code = 4909734656) 63 in Weight (test code = 2541354328) 130 lbs Systolic BP (test code = 2060144259) 114 mmHg Diastolic BP (test code = 0570128852) 75 mmHg Heart Rate (test code = 1118749160) 98 bpm BSA (test code = 8932281140) 1.61 m2 LVIDD (test code = 5423783988) 4.00 cm Left Ventricular End Diastolic Volume by Teichholz Method (test code = 2298598) 70.0 mL IVS (test code = 2152911549) 1.07 cm Interventricular Septum Diastolic Thickness by 2D (test code = 1155747) 1.07 cm LVPWD (test code = 8688315747) 1.05 cm PW (test code = 1773934010) 1.05 cm 0.6-1.1 EF(Teich) (test code = 0759570525) 62.60 % LVIDS (test code = 7230370493) 2.70 cm Left Ventricular End Systolic Volume by Teichholz Method (test code = 2798631) 26.2 mL FS (test code = 7328921603) 33 % EF - 2D (test code = 78834377) 62.60 % Ao root diam (test code = 9589816885) 3.70 cm Aortic root (test code = 5192170830) 3.7 cm Ao root annulus (test code = 4266140311) 3.7 cm LA size (test code = 3294754083) 3.2 cm LVOT diameter (test code = 7331843650) 2.08 cm LVOT area (test code = 9540193065) 3.40 cm2 MV Peak E Nima (test code = 1142338916) 48.3 cm/s E wave decelartion time (test code = 9858497671) 0.15 s MV Peak A Nima (test code = 6867241700) 74.4 cm/s E/A ratio (test code = 7788551608) 0.65 ratio MV Prop V (test code = 1121839085) 21.20 cm/s LAV(MOD-sp4) (test code = 7151765691) 35.30 mL Tapse (test code = 8867950741) 1.73 cm LVOT stroke volume (test code = 7029644860) 45.20 cm3 LVOT peak nima (test code = 4805497622) 79.0 cm/s LVOT mn grad (test code = 4593048824) 1.3 mmHg AV LVOT peak gradient (test code = 9018352111) 2.50 mmHg LVOT peak VTI (test code = 2961125747) 13.2 cm LV V1 mean (test code = 5159999896) 52.90 cm/s Ao peak nima (test code = 5388041232) 83.8 cm/s AV area peak nima (test code = 7351943103) 3.2 cm2 Ao max PG (test code = 5758917765) 2.80 mm[Hg] AV peak gradient (test code = 6748176476) 2.8 mmHg LA Volume Index (BP) (test code = 6674320430) 25.9 mL/m2 LA volume (BP) (test code = 3778265031) 41.8 mL LAV(MOD-sp2) (test code = 4010649023) 40.90 mL A4C EF (test code = 7822372406) 54.40 % EF(sp4-el) (test code = 7338288679) 55.00 % SV(MOD-sp4) (test code = 4803110343) 53.10 mL SV(sp4-el) (test code = 0570226820) 55.60 mL Radiology Study observation (narrative) (test code = 51797-7) GINA (test code = GINA) ?Left?Ventricle: Left ventricle size is normal. Mild septal thickening. Ventricular mass is normal. Normal wall motion. No regional wall motion abnormalities. Normal systolic function with a visually estimated EF of 55 - 60%. There is grade 1 diastolic dysfunction. Indeterminate left ventricular filling pressure. ?Right?Ventricle: Right ventricle size is normal. Normal systolic function. ?Aorta: Mildly enlarged sinus of Valsalva (measuring 3.4-3.6 cm with indexed values of 2.1-2.2 cm/m2). ?Tricuspid?Valve: Trace transvalvular regurgitation. Insufficient tricuspid regurgitation jet to estimate RVSP . ?IVC/SVC: IVC diameter is less than or equal to 21 mm and decreases greater than 50% during inspiration; therefore the estimated right atrial pressure is normal (~0-5 mmHg). ?Pericardium: No pericardial effusion. Left VentricleLeft ventricle size is normal. Mild septal thickening. Ventricular mass is normal. Normal wall motion. No regional wall motion abnormalities. Normal systolic function with a visually estimated EF of 55 - 60%. There is grade 1 diastolic dysfunction. Indeterminate left ventricular filling pressure.Right VentricleRight ventricle size is normal. Normal systolic function.Left AtriumNot well visualized. Left atrium visually appears dilated.Right AtriumRight atrium size is normal.IVC/SVCIVC diameter is less than or equal to 21 mm and decreases greater than 50% during inspiration; therefore the estimated right atrial pressure is normal (~0-5 mmHg).Mitral ValveMitral valve structure is normal. Mild mitral annular calcification. Trace transvalvular regurgitation. No stenosis.Tricuspid ValveTricuspid valve structure is normal. Trace transvalvular regurgitation. Insufficient tricuspid regurgitation jet to estimate RVSP . No stenosis.Aortic ValveTricuspid. Trace transvalvular regurgitation. No evidence of aortic stenosis.Pulmonic ValveNot well visualized. Trace transvalvular regurgitation. No stenosis.Ascending AortaMildly enlarged sinus of Valsalva (measuring 3.4-3.6 cm with indexed values of 2.1-2.2 cm/m2).PericardiumThe pericardium is normal. No pericardial effusion.Study DetailsStudy quality was adequate. A complete echocardiogram was performed using 2D, color flow Doppler and spectral Doppler. 3 mL of Optison ultrasound enhancing agent used. Patient exhibited sinus rhythm. [facility] GLUCOSE (AUTOMATED)2023-04-21 17:48:26* Test Item Value Reference Range Interpretation Comme nts POCT GLU (test code = 5712667659) 198 mg/dL 70-110 H Lab Interpretation (test cod e = 14715-9) [facility] 1 [id number] 15:12:07EXAM: XR CHEST 1 VW HISTORY: NSTEMI COMPARISON: None. FINDINGS: Small bandlike densities in the left midlung have more the appearance ofatelectasis than pneumonia. The lungs are well expanded and clearotherwise. The heart and great vessels are normal except for calcium in thearch of the aorta.[facility] GLUCOSE (AUTOMATED)2023-04-21 09:39:57* Test Item Value Reference Range Interpretation Comme nts POCT GLU (test code = 8239365419) 243 mg/dL 70-110 H Lab Interpretation (test cod e = 47306-4) [facility]normal [facility] PointeFerritin [id number] 07:28:27* Test Item Value Reference Range Interpretation Comme nts FERRITIN (test code = 8532989458) 76.3 ng/mL 18.0-464.0 GINA (test code = GINA) Biotin has been reported to cause a negative bias, interpret results relative to patient's use of biotin. Lab Interpretation (test code = 51604-0) Normal [facility]inteGlycosylated Hemoglobin (A1C)2023-04-21 07:25:47* Test Item Value Reference Range Interpretation Comme nts HGB A1C (test code = 4548-4) 12.6 % 4.0-5.7 H GINA (test code = GINA) Reference RangesNormal: <5.7%Prediabetes: 5.7 - 6.4%Diabetes: > 6.5% Lab Interpretation (test code = 72014-7) [facility]normal [facility] PointeThyroid Stimulating Mqvmfuz7510-76-63 07:24:07 * Test Item Value Reference Range Interpretation Comme nts TSH (test code = 2297880090) 2.56 See_Comment [Automated [employer] ge] The system which generated this result transmitted reference range: 0.45 - 4.70 mIU/L. The reference range was not used to interpret this result as normal/abnormal. Lab Interpretation (test code = 28867-8) Normal [facility] PointePhosphorus2023-12-27 06:52:06* Test Item Value Reference Range Interpretation Comme nts PHOSPHORUS (test code = 2763590732) 3.2 mg/dL 2.5-5.0 Lab Interpretation (test cod e = 33087-7) Normal [facility]inteCritical [id number] 02:54:15NSergio chin MD ? ? 04/20/2023 ?8:54 PMCritical Care Performed by: Sergio Aponte [facility]ITALuthorized by: Sergio Aponte MD ?Critical care provider statement: ?Critical care time (minutes): ?45 ?Critical care time was exclusive of: ?Separately billable procedures and treating other patients and teaching time ?Critical care was necessary to treat or prevent imminent or life-threatening deterioration of the following conditions: ?Cardiac failure ?Critical care was time spent personally by me on the following activities: ?Development of treatment plan with patient or surrogate, evaluation of patient's response to treatment, examination of patient, obtaining history from patient or surrogate, ordering and performing treatments and interventions, ordering and review of laboratory studies, ordering and review of radiographic studies, pulse oximetry, re-evaluation of patient's condition and review of old charts ?Care discussed with: admitting provider ?Comments: ? Due to a high probability of clinically significant, life threatening deterioration, the patient required my highest level of preparedness to intervene emergently and I personally spent this critical care time directly and personally managing the patient. This critical care time included obtaining a history; examining the patient; pulse oximetry; ordering and review of studies; arranging urgent treatment with development of a management plan; evaluation of patient's response to treatment; frequent reassessment; and, discussions with other providers.This critical care time was performed to assess and manage the high probability of imminent, life- threatening deterioration that could result in multi-organ failure. It was exclusive of separately billable procedures and treating other patients. [facility] PointeTroponin [id number] 02:30:18* Test Item Value Reference Range Interpretation Comme nts TROPONIN I (test code = 4322021381) 0.154 ng/mL <=0.034 H GINA (test code = GINA) Reference (Normal) Range (defined by the 99th percentile reference limit): <= 0.034 ng/mL Note: Cardiac troponin begins to rise 3-4 hours after the onset of ischemia. Repeat in 4-6 hours if the sample was drawn within 3-4 hours of the onset of the symptom and found normal. Diagnosis of myocardial injury is made with acute changes in cTn concentrations with at least one serial sample above the 99th percentile upper reference limit (URL), taken together with the patient's clinical presentation. Biotin has been reported to cause a negative bias, interpret results relative to patient's use of biotin. Lab Interpretation (test code = 25848-8) Abnormal [facility] PointeETHANOL2023-12-27 02:24:46 ALCOHOL<10mg/dL04/20/2023 8:24 PM [facility]<10 Kuconsdw58-404 Toxic>100 Depression of MANUFACTURING MAINTENANCE MANAGER>400 Fatalities ReportedUnHouston Methodist Willowbrook HospitalCOMP. METABOLIC PANEL (56756)2023-04-21 02:19:15* Test Item Value Reference Range Interpretation Comme nts NA (test code = 8730004679) 129 mmol/L 135-145 L K (test code = 0365856249) 3.5 mmol/L 3.5-5.0 CL (test code = 0251268599) 94 mmol/L 98-108 L CO2 TOTAL (test code = 9363577335) 28 mmol/L 23-31 AGAP (test code = 6615534524) 7 2-16 BUN (test code = 0211988498) 26 mg/dL 7-23 H GLUCOSE (test code = 1965211463) 314 mg/dL 70-110 H CREATININE (test code = 8937012934) 0.92 mg/dL 0.60-1.25 TOTAL BILI (test code = 9820727820) 0.8 mg/dL 0.1-1.1 CALCIUM (test code = 7501415057) 8.5 mg/dL 8.6-10.6 L T PROTEIN (test code = 7573408906) 6.0 g/dL 6.3-8.2 L ALBUMIN (test code = 1128011069) 3.3 g/dL 3.5-5.0 L ALK PHOS (test code = 7468034008) 95 U/L 34-122 ALTv (test code = 1742-6) 23 U/L 5-50 AST(SGOT) (test code = 4612489365) 30 U/L 13-40 eGFR (test code = 26320-2) 98.2 mL/min/1.73m2 CKD-EPI eGFR (2020). Assuming creatinine has been stable day-to-day for at least three months, the eGFR indicates Category G1 (>= 90 mL/min/1.73 m2) Lab Interpretation (test code = 78968-7) Abnormal [facility] WITH [id number] 02:03:54* Test Item Value Reference Range Interpretation Comme nts WBC (test code = 6690-2) 11.74 See_Comment H [Automated messa ge] The system which generated this result transmitted reference range: 4.20 - 10.70 10*3/?L. The reference range was not used to interpret this result as normal/abnormal. RBC (test code = 789-8) 3.94 See_Comment L [Automated messa ge] The system which generated this result transmitted reference range: 4.26 - 5.52 10*6/?L. The reference range was not used to interpret this result as normal/abnormal. HGB (test code = 718-7) 12.3 g/dL 12.2-16.4 HCT (test code = 4544-3) 33.8 % 38.4-49.3 L MCV (test code = 787-2) 85.8 fL 81.7-95.6 MCH (test code = 785-6) 31.2 pg 26.1-32.7 MCHC (test code = 786-4) 36.4 g/dL 31.2-35.0 H RDW-SD (test code = 86755-3) 36.2 fL 38.5-51.6 L RDW-CV (test code = 788-0) 11.6 % 12.1-15.4 L PLT (test code = 777-3) 178 See_Comment [Automated [employer]] The system which generated this result transmitted reference range: 150 - 328 10*3/?L. The reference range was not used to interpret this result as normal/abnormal. MPV (test code = 78344-7) 10.9 fL 9.8-13.0 NRBC/100 WBC (test code = 9796186275) 0.0 See_Comment [Automated [employer] ssage] The system which generated this result transmitted reference range: 0.0 - 10.0 /100 WBCs. The reference range was not used to interpret this result as normal/abnormal. NRBC x10^3 (test code = 5588639740) See_Comment [Automated [employer]] The system which generated this result transmitted reference range: 10*3/?L. The reference range was not used to interpret this result as normal/abnormal. GRAN MAT (NEUT) % (test code = 770-8) 81.3 % IMM GRAN % (test code = 5392045855) 0.30 % LYMPH % (test code = 736-9) 10.5 % MONO % (test code = 5905-5) 7.6 % EOS % (test code = 713-8) 0.1 % BASO % (test code = 706-2) 0.2 % GRAN MAT x10^3(ANC) (test code = 0973454005) 9.55 10*3/uL 1.99-6.95 H IMM GRAN x10^3 (test code = 0487047850) 0.04 10*3/uL 0.00-0.06 LYMPH x10^3 (test code = 731-0) 1.23 10*3/uL 1.09-3.23 MONO x10^3 (test code = 742-7) 0.89 10*3/uL 0.36-1.02 EOS x10^3 (test code = 711-2) 0.06-0.53 L BASO x10^3 (test code = 704-7) 0.01-0.09 Lab Interpretation (test code = 27919-3) [facility]normal [facility]PO[facility] GLU[facility]SE (AUTOMATED)2023-04-21 01:55:51* Test Item Value Reference Range Interpretation Comme [facility] POCT GLU (test code = 6496965430) 408 mg/dL 70-110 H Lab Interpretation (test cod e = 54453-7) Abnormal [facility] PointeCOMPREHENSIVE METABOLIC [id number] 05:07:51* Test Item Value Reference Range Interpretation Comme [facility] GLUCOSE (test code = 2217) 224 MG/DL 70-99 H BUN (test code = 2208) 22 MG/DL 6-20 H CREATININE (test code = 2214) 0.71 MG/DL 0.80-1.40 L eGFR (2020 CKD-EPI) (test code = 18520) 109 ML/MIN/1.73 >60 CALC BUN/CREAT (test code = 2235) 31 RATIO 6-28 H SODIUM (test code = 2231) 136 MEQ/L 133-146 POTASSIUM (test code = 2228) 4.8 MEQ/L 3.5-5.4 CHLORIDE (test code = 2215) 98 MEQ/L 95-107 CARBON DIOXIDE (test code = 2206) 29 MEQ/L 19-31 CALCIUM (test code = 2209) 9.6 MG/DL 8.5-10.5 PROTEIN, TOTAL (test code = 2229) 7.4 G/DL 6.1-8.3 ALBUMIN (test code = 2201) 4.7 G/DL 3.5-5.2 CALC GLOBULIN (test code = 2240) 2.7 G/DL 1.9-3.7 CALC A/G RATIO (test code = 2234) 1.7 RATIO 1.0-2.6 BILIRUBIN, TOTAL (test code = 2207) 0.2 MG/DL See_Comment [Automated me ssage] The system which generated this result transmitted reference range: <=1.2. The reference range was not used to interpret this result as normal/abnormal. ALKALINE PHOSPHATASE (test code = 2204) 138 U/L 40-121 H AST (test code = 2218) 41 U/L 9-50 ALT (test code = 2219) 24 U/L 5-50 LIPID [id number] 05:07:51* Test Item Value Reference Range Interpretation Comme nts CHOLESTEROL (test code = 2210) 174 MG/DL <200 TRIGLYCERIDES (test code = 2232) 99 MG/DL <150 HDL CHOLESTEROL (test code = 2220) 57 MG/DL >39 CALC LDL CHOL (test code = 2237) 98 MG/DL <100 NOTE: CALCULATED LDL IS BASED ON SIMI-OLMSTEAD METHOD WHICHINCLUDES ADJUSTABLE TRIGLYCERIDE:VLDL CHOLESTEROL RATIO.THIS FACTOR VARIES BY MEASURED TRIGLYCERIDE AND NON-HDLCHOLESTEROL CONCENTRATIONS WITH INCREASED CALCULATED LDL SEENIN HIGHER TRIGLYCERIDE OR LOWER NON-HDL SPECIMENS. FOR MOREINFORMATION, SEE CLIENT ANNOUNCEMENT AT [email or web address]-[email or web address] RISK RATIO LDL/HDL (test code = 2238) 1.72 RATIO <3.55 PSA, [id number] 05:07:10* Test Item Value Reference Range Interpretation Comme [facility] PSA, TOTAL (test code = 2606) 19.70 NG/ML See_Comment H NOTE: Methodolog y is Ashley Jasmina Electrochemiluminescence Immunoassay traceable to WHO reference standard 96/760. UNLESS OTHERWISE INDICATED, ALL TESTING PERFORMED [facility] [address] [place] [address] EXTRUSION MANAGER: DUSTIN COLMENARES M.D. CLIA NUMBER [id number] [facility]. [id number] [Automated message] The system which generated this result transmitted reference range: <=4.00. The reference range was not used to interpret this result as normal/abnormal. HEMOGLOBIN [id number] 02:46:58* Test Item Value Reference Range Interpretation Comme nts HEMOGLOBIN A1c (test code = 77962) 11.0 % 4.2-5.6 H [employer] GUIDELINES FOR HGB A1C: PREDIABETES/INCREASED RISK . . . . . . . 5.7-6.4% DIAGNOSIS OF DIABETES . . . . . . . . . >=6.5% WITH CONFIRMATION OR APPROPRIATE SYMPTOMS NOTE: ASSAY MAY BE AFFECTED BY HEMOGLOBINOPATHIES (SICKLE CELL ANEMIA, S-C DISEASE, OTHERS) OR ARTIFICIALLY LOWERED BY DECREASED RED CELL SURVIVAL (HEMOLYTIC ANEMIAS, BLOOD LOSS, ETC.). CONSIDER ALTERNATE TESTING OR LABORATORY CONSULTATION. CBC W/AUTO DIFF WITH [id number] 02:32:39* Test Item Value Reference Range Interpretation Comme nts WBC (test code = 1001) 7.3 K/UL 3.5-11.0 RBC (test code = 1002) 4.32 M/UL 4.50-6.10 L HEMOGLOBIN (test code = 1003) 12.5 G/DL 13.5-17.0 L HEMATOCRIT (test code = 1004) 36.7 % 40.0-51.0 L MCV (test code = 1005) 85.0 fL 80.0-99.0 MCH (test code = 1006) 28.9 PG 25.0-33.0 MCHC (test code = 1007) 34.1 G/DL 31.0-36.0 RDW (test code = 1038) 13.2 % 11.5-15.0 NEUTROPHILS (test code = 1008) 67.5 % LYMPHOCYTES (test code = 1010) 21.3 % MONOCYTES (test code = 1011) 7.2 % EOSINOPHILS (test code = 1012) 3.0 % BASOPHILS (test code = 1013) 0.7 % IMMATURE GRANULOCYTES (test code = 1036) 0.3 % NUCLEATED RBCS (test code = 1065) 0.0 /100 WBC'S See_Comment [Automated [employer]] The system which generated this result transmitted reference range: 0.0. The reference range was not used to interpret this result as normal/abnormal. PLATELET COUNT (test code = 1015) 270 K/UL 130-400 ABSOLUTE NEUTROPHILS (test code = 1066) 4.91 K/UL 1.50-7.50 ABSOLUTE LYMPHOCYTES (test code = 1067) 1.55 K/UL 1.00-4.00 ABSOLUTE MONOCYTES (test code = 1068) 0.52 K/UL 0.20-1.00 ABSOLUTE EOSINOPHILS (test code = 1040) 0.22 K/UL 0.00-0.50 ABSOLUTE BASOPHILS (test code = 1069) 0.05 K/UL 0.00-0.20 ABS IMMATURE GRANULOCYTES (test code = 1020) 0.02 K/UL 0.00-0.10 ABS NUCLEATED RBCS (test code = 78459) 0.00 K/UL 0.00-0.11 Consult Notes Date/Time Note Provider Source 2023-08-23 11:10:50 [id number]:10:50Associated Order(s): CONSULT ADULT PHYSICAL THERAPY Patient agreeable to working with physical therapy. Patient met semi reclined in bed.Recommend nursing staff utilize Min A to safely assist patient with mobility out of the bed or chair.PHYSICAL THERAPY EVALUATIONConsult received, chart reviewed and evaluation complete this date. Patient is referred to PT for evaluation and treatment. Patient is a 58 year old male who presents to hospital for ELIEZER (acute kidney injury) [N17.9] .Discharge Recommendations:Therapy Needs and Potential:Patient demonstrates good potential to improve and meet therapy goals with further physical therapy services.Challenges to Home Transition:increased risk of fallsdecreased safety awarenessEquipment recommendations:rolling walkerCurrent Functional Status and/or Treatment:AM-PAC 6 Clicks (Raw Score 0=Dependent, 24=Independent; Low function Raw Score 0= Dependent, 32=Independent):Raw Score - Basic Mobility : 17T-Scale Score - Basic Mobility : 39.67Bed Mobility:Rolling: SupervisionCued on hand and feet placementDizziness NoTransfers:Sit to stand: Supervision using rolling Walker.Stand to sit: Supervision using rolling Walker.Verbal cueing provided for correct hand placement and correct use of ADCued on hand and feet placementDizziness NoAmbulation:Assisted patient with ambulation as follows: 24 feet using rolling Walker. and Minimal Assistance.Cued on proper hand and feet placementDizziness NoTherapeutic exercise:patient/caregiver verbalizes understanding of instructions.After session, patient semi reclined in bed. Call button provided. Patient nurse was notified on patient's current condition.PLAN OF CARE:While in the hospital, PT will follow patient at least 2 times per week,once or twice a day, per patient's tolerance and needs.See below for complete details.Admit Date: 08/21/2023Hospital Diagnosis:ELIEZER (acute kidney injury) [N17.9]PT Diagnosis: Difficulty walking and WeaknessWeight Bearing Precaution: NAGeneral Precautions: General, Fall,Bae catheterBracing/Cast present or required:N/APMH:Past Medical History:Diagnosis DateHTN (hypertension)Uncontrolled diabetes mellitus with hyperglycemiaPSH: History reviewed. No pertinent surgical history.Prior Living Situation: Per patient he lives at his friends.DME: No devicePrior level of Mobility: community ambulationSuspected ischemic or hemorraghic stroke:NoSubjective: Patient agreed to participate with PT. Patient reported that his bae hurts.Nurse was notified.Patient/Family Goals: To get better and go home.Patient/Family verbalizes understanding of condition: YesPAIN:Pain when bae is moved.COMMUNICATIONPrimary Language: EnglishAble to Verbalize needs: YesVision:good; no issues reported Hearing:good; no issues reportedORIENTATION/COGNITION:Oriente d to: person and placeAwake: Yes Alert: Yes Dizzy: NoFollows Commands: Yes1-Step Yes Multi-Step YesInconsistent: NoNEUROLOGICALLight Touch: within functional limits bilateral LEHeel to raygoza: NTTone: NormalBALANCE:Sitting: Static: Good Dynamic: GoodStanding: Static: Good Dynamic: Fair+RANGE OF MOTION: within functional limits bilateral LE,STRENGTH: 4-/5 (G-), bilateral LEENDURANCE: NTSKIN INTEGRITY: intactPROBLEM LIST: Decline in bed mobility, Decline in gait, Decline in transfers, Decreased strength, Decreased balance, and Safety awareness deficitsASSESSMENT: Patient is a 58 year old male seen secondary to the above listed diagnosis. Patient would benefit from continued PT to address the above listed deficits to maximize independence and safety with functional mobility.Rehabilitation Potential: goodGoals: The following goals are to maximize independence and safety with functional mobility to eventually return to prior living situation and prior functional status.Upon discharge, patient and/or family will demonstrate the followin. Sit to supine: IndependentSupine to sit: IndependentScooting to edge of bed: Independent2. Sit to stand: Independent using rolling Walker.Stand to sit: Independent using rolling Walker.3. Independent with ambulation, Feet: 150 using least assistive device.Treatment Plan: Gait training, Therapeutic exercise, Transfer training, Bed mobility training, and Safety education, patient/caregiver educationPATIENT EDUCATION: Patient provided with preferred teaching of verbal information on role of PT, plan of care. Shows readiness to learn. Verbal instruction teaching provided. Individual is able to read and verbalizes understanding of teaching provided.Total Time Tx Codes in Minutes: 15 minTotal Treatment Time in Minutes: 20 minJesica Murphy,PTTx License: [id number] Components in Determining Evaluation LevelHistory:No personal factors or comorbidities: No (12212)1-2 personal factors and/or comorbidities: Yes (58339)3 or more personal factors and/ or comorbidities: No (28995)Examination of Body System(s)Addressing 1-2 elements: Yes (74574)Addressing a total of 3 or more elements: No (97482)Addressing a total of 4 or more elements: No (67846)Clinical PresentationStable: Yes (14917)Evolving: No (42471)Unstable: No (81352)Clinical Decision Making (Complexity)Low: No (51338)Moderate: Yes (61359)High: No (23371) 78997-9Ijqlpqc drbaQO6999-68-59P95:45:58Consult noteTXT1.2.840.467251.1.13.104.2.7.2. 386187|[id number] for patient ivok71321-3Prrclut noteLNNARRATIVEFormatted C-CDA narrative [id number] G Castro PT[address] Ye[id number] WPUDGBUPUMZQVNLKSGHRZ0376-44-42A99:45 :581.2.840.993807.1.72.3.15|1.2.840.1 [id number] 7 Jesica Murphy PT [facility] 2023-08-15 10:01:34 7150-74-98V48:01:34Associated Order(s): CONSULT CARDIOLOGY [facility] Cardiology Consult NotePatient: Saturnino Shelley of : 1965MRN: [id number] of service: [facility] Physician: Erik Garcia COMPLAINT:Chief ComplaintPatient presents withNauseaHypertensionHISTORY OF PRESENT ILLNESS:Saturnino Maldonado is a 58 year old male presented to the ER for evaluation for elevated blood pressure, fatigue.History from patient.Patient seen and examined in the room.Pertinent cardiac related history reviewed from chartPresented to the ED secondary to elevated blood pressure and fatigue that started hours prior to arrival. Additional symptoms: nausea, generalized weakness, intermittent abdominal pain, constipation (had to do self disimpaction 4 days ago), malaise, urinary frequency.Due to the increased urinary frequency and hesitancy, he came to the ED.Cardiology consulted due to mildly elevated troponins.No history of exertional chest pain. No chest pain at rest. No PND or orthopnea. No pedal edema. No exertional palpitations or palpitations at rest. No syncopal attacks.PMH of HTN, DM, noncompliance (could not afford medications)PAST MEDICAL HISTORYPast Medical History:Diagnosis DateHTN (hypertension)Uncontrolled diabetes mellitus with hyperglycemiaHistory reviewed. No pertinent surgical history.Family HistoryProblem Relation Age of OnsetNo Significant Medical Problems MotherMI (myocardial infarction) FatherSOCIAL HISTORYSocial HistorySocioeconomic HistoryMarital status: SingleTobacco UseSmoking status: NeverPassive exposure: NeverSmokeless tobacco: NeverSubstance and Sexual ActivityAlcohol use: NeverDrug use: NeverSocial Determinants of HealthFinancial Resource Strain: Low Risk (04/21/2023)Overall Financial Resource Strain (CARDIA)Difficulty of Paying Living Expenses: Not hard at allFood Insecurity: No Food Insecurity (04/21/2023)Hunger Vital SignWorried About Running Out of Food in the Last Year: Never trueRan Out of Food in the Last Year: Never trueTransportation Needs: No Transportation Needs (04/21/2023)PRAPARE - TransportationLack of Transportation (Medical): NoLack of Transportation (Non-Medical): NoPhysical Activity: Sufficiently Active (04/21/2023)Exercise Vital SignDays of Exercise per Week: 7 daysMinutes of Exercise per Session: 30 minSocial Connections: Unknown (04/21/2023)Social Connection and Isolation Panel [NHANES]Frequency of Communication with Friends and Family: More than three times a weekMarital Status: Never marriedHousing Stability: High Risk (04/21/2023)Housing Stability Vital SignUnable to Pay for Housing in the Last Year: NoNumber of Places Lived in the Last Year: 1Unstable Housing in the Last Year: YesALLERGIESNo Known AllergiesMEDICATIONSCurrent Discharge Medication ListSTOP taking these medicationsacarbose 25 mg tablet Comments:Reason for Stopping:blood sugar diagnostic (ACCU-CHEK GUIDE TEST STRIPS) strip Comments:Reason for Stopping:Blood-Glucose Meter (ACCU-CHEK GUIDE GLUCOSE METER) Misc Comments:Reason for Stopping:lancets 33 gauge Misc Comments:Reason for Stopping:Current Facility-Administered Medications:amLODIPine (NORVASC) tablet 10 mg, 10 mg, Oral, DAILY, Jesica Prasad MD, 10 mg at 08/15/23 0938acetaminophen (TYLENOL) tablet 650 mg, 650 mg, Oral, Q6HPRN, Jerry Fields, DOdextrose 50 % in water (D50W) injection 25 mL, 25 mL, Slow IV Push, PRN, Jerry Fields, DOglucagon (GLUCAGEN DIAGNOSTIC KIT) injection 1 mg, 1 mg, Intramuscular, PRN, Jerry Fields, DOSliding Scale Insulin - Lispro (HumaLOG), , Subcutaneous, TID MEALS+HS, Jerry Fields, DO, 4 Units at 08/15/23 0938REVIEW OF SYSTEMS:Comprehensive 10-system review was conducted and were negative except for what's noted in the HPI. The following systems were reviewed: Constitutional, cardiovascular, respiratory, gastrointestinal, genitourinary, musculoskeletal, neurologic, psychiatric, endocrinological, and hematological.PHYSICAL EXAMINATION:Vitals:08/14/23 2302 08/14/23 2307 08/15/23 0257 08/15/23 0713BP: (!) 152/88 118/75 129/78Pulse: 81 84 80Resp: 18 20 16Temp: 36.5 ?C (97.7 ?F) 36.9 ?C (98.5 ?F) 36.2 ?C (97.1 ?F)TempSrc: Temporal ArterySpO2: 99% 97% 95%Weight: 54 kg (119 lb) 54 kg (119 lb) 56 kg (123 lb 6.4 oz)Height: 1.6 m (5' 3")General: no apparent distressHEENT: normocephalic atraumaticNeck: supple, no lymphadenopathy, no bruits, no JVDLungs: clear to auscultation bilaterally. No wheezes or rhonchi. No increased work of breathing.Cardio: Regular rate and rhythm, S1&S2 normal, no murmurs, rubs or gallopsAbdomen: soft; non-tender; non-distended; normoactive bowel sounds.: not examinedRectal: not examinedExtremities: no clubbing, cyanosis, or edema.Skin: no rashes, no visible lesions.Neuro: no gross focal deficitsLABS - Reviewed pertinent labs as below:CBC BMP PT/INRWBC (10*3/?L)Date Value08/15/2023 8.84NA (mmol/L)Date Value08/15/2023 134 (L)No results found for: "PT"PLT (10*3/?L)Date Value08/15/2023 211K (mmol/L)Date Value08/15/2023 3.2 (L)INR (no units)Date Value04/20/2023 1.0HGB (g/dL)Date Value08/15/2023 12.2BUN (mg/dL)Date Value08/15/2023 23HCT (%)Date Value08/15/2023 34.0 (L)CREATININE (mg/dL)Date Value08/15/2023 0.88LIPID PROFILEGLUCOSE (mg/dL)Date Value08/15/2023 90CHOL (mg/dL)Date Value04/21/2023 112 (L)TSH LDL CHOL (mg/dL)Date Value04/21/2023 50TSH (mIU/L)Date Value04/20/2023 2.56CARDIAC ENZYMES HDL (mg/dL)Date Value04/21/2023 49CK (U/L)Date Value2023 148TRIG (mg/dL)Date Value04/21/2023 64LFTs No results found for: "CKMB"AST(SGOT) (U/L)Date Value2023 26TROPONIN I (ng/mL)Date Value08/15/2023 0.059 (H)ALTv (U/L)Date Value2023 16No results found for: "BNP"LDL CHOL (mg/dL)Date Value04/21/2023 50Recent LabsTROPNI 0.059*Recent Labs0TRIG 64LDL CHOL (mg/dL)Date Value04/21/2023 50NT-proBNP (pg/mL)Date Value2023 999 (H)ASSESSMENT/PLANPrincipal Problem:Hypertension, unspecified typeActive Problems:Elevated troponin I levelElevated brain natriuretic peptide (BNP) levelEssential hypertensionAKI (acute kidney injury)Type 2 diabetes mellitus with other specified complicationElevated troponins: Likely type II AR in the setting of underlying ELIEZER/elevated blood pressureStable troponins noted.Recommend aspirin 81 daily.Recommend telemetry monitoring.DSE 04/21/2023 images reviewed shows negative for inducible ischemia by EKG. Echocardiogram shows no inducible ischemia.Echocardiogram dated 04/21/2023 images reviewed shows preserved LV systolic function, no significant valve normalities noted.Recent Labs2404TROPNI 0.063* 0.059*Elevated NT BNP: In the setting of uncontrolled hypertension/ELIEZER.No clinical signs of volume overload noted.Will avoid diuretics.NT-proBNP (pg/mL)Date Value2023 999 (H)Acute renal failure: Rx as per primary team.Hypertension: Presented with elevated blood pressure. Currently blood pressure well-controlled.Continue with amlodipine 5 mg daily.Dyslipidemia: Recommended goal LDL less than 70.LDL CHOL (mg/dL)Date Value04/21/2023 50T2DM: Uncontrolled: Rx/workup as per primary team.Last Two A1C Results (UTMB/LC, POCT, QUEST)Recent Labs08/13/2414HGBA1C 12.6* 8.9*My diagnostic impression and treatment plans were discussed at length with the patient. Ample opportunity was offered and encouraged to ask questions during this visit and patient appreciated the answers given by me and kaykaysed statisfcation in the answers given.Thank you for allowing us to participate in the care of Saturnino Maldonado.If you have any questions or concerns please feel free to call our office at [phone]. I would be happy to be of further assistance for Saturnino Maldonado wellbeing.Voice recognition software has been used to create portions of this document. An attempt to proofread has been made to minimize errors. Please do not hesitate to call with any questions.Nerissa Ronquillo Professor, Division of CardiologyUnHouston Methodist [facility] 13[address]-0Zuqpfeo wvveXX8547-75-95B59:32:50Consult [id number]. [id number] for patient [id number] noteLNNARRATIVEFormatted C-CDA narrative text[address] Y[id number] AEUHONEJSXSVNCJYBUKIY9879-85-45Q33:32 :501.2.840.979639.1.72.3.15|1.2.840.1 [id number] [facility] 2023-04-21 08:46:48 2142-91-23N54:46:48Associated Order(s): CONSULT ENDOCRINOLOGY Endocrinology Consult NoteConsultation requested by: Service: William Lemus for Consultation: DiabetesDate of Service: 04/21/23HPI57 year old male with a PMH of HTN, T2DM, Fmhx premature CAD who presented with complaints of polyuria and weakness at [facility] ER. Patient transferred to [place] for further work up.Endocrinology consulted for diabetes managementDiabetes Type and year diagnosed: 2011, type 2Diabetes complications: noneHx of DM regimen: no meds for 3 yearsCompliance: -BG monitoring? -Hypoglycemia hx: noHypoglycemia unawareness? noSymptoms of hyperglycemia: polyuriaLiving situation and support: homeless, lives with different relativesDiabetes doctor: [place], has not seen for few yearsFamily hx of diabetes: noHX of glucocorticoid use: noHX of transfusions or EPO in last 6 months: noPAST MEDICAL HISTORYPast Medical History:Diagnosis DateHTN (hypertension)Uncontrolled diabetes mellitus with hyperglycemiaHistory reviewed. No pertinent surgical history.Family HistoryProblem Relation Age of OnsetNo Significant Medical Problems MotherMI (myocardial infarction) FatherSocial HistoryTobacco UseSmoking status: NeverPassive exposure: NeverSmokeless tobacco: NeverSubstance Use TopicsAlcohol use: NeverDrug use: NeverALLERGIESPatient has no known allergies.REVIEW OF SYSTEMSConstitutional: Negative for appetite change, fatigue and unexpected weight change.HENT: Negative for trouble swallowing.Eyes: Negative for visual disturbance.Respiratory: Negative for chest tightness and shortness of breath.Cardiovascular: Negative for CP, palpitations and leg swelling.Gastrointestinal: Negative for abd pain, constipation, diarrhea, nausea and vomiting.Genitourinary: +for difficulty urinating.Musculoskeletal: Negative.Skin: Negative for rash.Neurological: Negative for tremors and numbness.Psychiatric/Behavioral: Negative for sleep disturbance.Endocrine: + for polydipsia, polyphagia and polyuria. Negative for heat/cold intolerance.PHYSICALEXAMBP 114/75 (BP Location: Left arm, Patient Position: Supine) | Pulse 98 | Temp 36.3 ?C (97.4 ?F) | Resp 18 | Ht 1.6 m (5' 3") | Wt 58.3 kg (128 lb 9 oz) | SpO2 99% | BMI 22.77 kg/m?General: Patient in no apparent distressHEENT: no icterusNeck: no thyroid enlargementLungs: no accessory muscle use, clear to auscultationCardiovascular: RRRAbdomen: soft, non tenderNeuro: AAOx3, no tremors, no focal deficitsPsych: coperativeFoot exam: Sensation in feet grossly intact, DP pulses are 2+ bilaterally, no lesions, no ulcers, skin is warm, small healed ulcers on the dorsal aspect, + onychomycosis.LABORATORYRecent Labs12/TSH 2.56Recent LabsHGBA1C 12.6*BMPRecent Labs04/21/2303NA 129* 130*K 3.5 3.2*CA 8.5* 8.3*CL 94* 100BUN 26* 21CREAT 0.92 0.63GLU 314* 226*TCO2 28 26ALB 3.3* --Lab ResultsComponent Value Date/TimeGLU 226 (H) 04/21/2023 03:10 AMGLU 314 (H) 04/20/2023 07:55 PMPOC GLU 243 (H) 04/21/2023 03:39 AMPOC GLU 408 (H) 04/20/2023 07:54 PMHOSPITAL MEDICATIONSScheduled meds:aspirin, 81 mg, DAILYatorvastatin, 80 mg, QHSinsulin glargine, 0.15 Units/kg/day, QHSinsulin lispro (human), 0.15 Units/kg/day, TIDACmagnesium sulfate in water, 2 g, ONCEpotassium chloride in water, 10 mEq, N5Zsbrvzua lispro (human), , TID MEALS+HStamsulosin, 0.4 mg, DAILYIV meds:heparin 25,000 Units/250 mL IV infusion for ACS, Last Rate: 800 Units/hr (04/21/23 0350)PRN meds:dextrose 50 % in water (D50W), 25 mL, PRNdextrose 50 % in water (D50W), 25 mL, PRNglucagon, 1 mg, PRNglucagon, 1 mg, PRNacetaminophen, 650 mg, N5DRVEslmqcnf 1000 unit/mL, 3,000 Units, FOR REBOLUSINGheparin 25,000 Units/250 mL IV infusion for ACS, 700 Units/hr, TITRATEASSESSMENT and PLANProblem List:DM type 2, A1c 12.6, not on insulin at homeStress hyperglycemiaNSTEMIHTNUrinary retentionComments: 57 year old male with a PMH of HTN, T2DM, Fmhx premature CAD who presented with complaints of polyuria and weakness at [facility] ER. Patient transferred to [place] for further work up.Endocrinology consulted for diabetes managementBG & Insulin Data:BG trend: 226 - 418 mg/dLTDD of insulin: 4,5 unitsScheduled Insulin: 18 unitsDiet: Npo for Julio start with 0.3 u/kg/day since he is insulin naive, 17 unitsNew TDD: 17 units60% basal and 40% bolusThiago do 20% increase when changing to NPH since he does not have insuranceRECOMMENDATIONS:NPH 8 units in Am and 4 units in PM- Give half dose if patient NPO or if BG 80 - 120 mg/dL.- Hold dose if BG <80 mg/dL.Lispro 2 units TID meals, to be changed to regular insulin at discharge- Give half dose if patient eats less than half meal OR if BG 80 - 120 mg/dL.- HOLD DOSE if NPO or BG < 80 mg/dL. Please give at end of meal if not sure if patient will eat.Sliding scale, SSI 1:50 - Give lispro sliding scale Qtid meals Hs; may give even if NPO.Blood sugar 170 to 220, give 1 unit.Blood sugar 221 to 270, give 2 units.Blood sugar 271 to 300, give 3 units.Blood sugar greater than 300, give 4 units, recheck in 3 hours and cover again with sliding scale.Discharge planning: Currently patient is not safe to be discharged, until the below is done-Talked to RN, he will start educating insulin administration-Since he is self pay, need NPH and Regular insulin to [facility] ([employer] [facility])-Need insulin vials, syringe needles, glucometer, test strips, lancets-Need meds to bed before discharge-Please contact Endocrine before discharge- Case discussed with Dr. Cabrera..Austin Amaro. Endocrinology Fellow, PGY 5 ssociated attestation - Rita Cabrera MD - 04/22/2023 2:11 PM CST Endocrinology Faculty Attestation:I evaluated this patient's progress on 04/21/[address] Amaro note as written and revised. I actively participated in the decision-making process. Please see the resident's note for additional details that includes pertinent addendums I made directly in the note during revision.Nerissa Aldridge ProfessorDivision of Yrtuzwwlqvrok18210-3Antmlof [id number], Reba1.2.840.721073.1.13.104.2.7.2.836 579ClcuikemvNrueNQ2862-49-17W08:11:24 Consult [id number].2. [id number] for patient cczr79849-1Tvbmext noteLNNARRATIVEFormatted C-CDA narrative textIM-ENDOCRINOLOGY,DIABETES & METABOLISMIM-ENDOCRINOLOGY,DIABETES & METABOLISM[address] Md[id number] PHGAZGWNVLXJIEPOQAABN1994-34-83S51:11 :241.2.840.118064.1.72.3.15|1.2.840.1 [id number] IM-ENDOCRINOLOGY,D IABETES & METABOLISM [facility] History and Physical Notes Date/Time Note Provider Source 2023-08-21 22:53:53 2410-58-02Y64:53:53 [facility] Hospitalist Admission H&PDate of Service: 4CHIEF COMPLAINT: Postobstructive renal failureHISTORY OF PRESENT ILLNESSSaturnino Maldonado is a 58 year old male who presents with postobstructive renal failure. Patient was recently in the hospital few days ago with acute renal insufficiency. Patient was found to have bladder retention. Patient had a Bae catheter placed at that time and renal function improved. Patient was discharged on Flomax. Patient states that Bae catheter was removed prior to discharge. Since discharge he has voided but not a significant amount. He has noticed that his abdomen has become more distended and he was clinically feeling like he had a few days ago. He was staying with a friend but his friend is leaving so he had to move out. He is currently homeless. Patient came into the emergency room and patient's GFR was less than 10. Patient was found to have bladder retention once again with obstructive uropathy. Bae catheter was placed and patient immediately had 2 L of urine output. Patient had an additional 2 L of urine output in his Bae catheter was clamped. Patient was given 2 L of IV fluid boluses. Patient was also found to have hyponatremia. Patient will be admitted to the hospital for close monitoring of urine output and renal function. Nephrology will be consulted. Patient was given the application for [employer] on last admission and will need to get this filled so he can see urology. Continue with Flomax at this time.PAST MEDICAL HISTORYPast Medical History:Diagnosis DateHTN (hypertension)Uncontrolled diabetes mellitus with hyperglycemiaBladder retentionPAST SURGICAL HISTORYCircumcision in [facility] CenterLLERGIESNo Known AllergiesMEDICATIONSCurrent home medication list reviewed:Patient's MedicationsSTART taking these medicationsNo medications on fileCONTINUE taking these medications which have NOT CHANGEDACARBOSE 25 MG TABLET Take 1 tablet by mouth in the morning and 1 tablet at noon and 1 tablet in the evening. Take with meals. Do all this for 30 days.AMLODIPINE 5 MG TABLET Take 1 tablet by mouth in the morning for 30 days.BLOOD SUGAR DIAGNOSTIC (ACCU-CHEK GUIDE TEST STRIPS) STRIP Use as directedBLOOD-GLUCOSE METER (ACCU-CHEK GUIDE GLUCOSE METER) MISC Use as directedLANCETS 33 GAUGE MISC Use as directedLOSARTAN 25 MG TABLET Take 1 tablet by mouth in the morning for 30 days.METFORMIN 500 MG 24 HR TABLET Take 1 tablet by mouth in the morning and 1 tablet in the evening. Take with meals. Do all this for 30 days.PIOGLITAZONE 15 MG TABLET Take 1 tablet by mouth in the morning for 30 days.TAMSULOSIN 0.4 MG 24 HR CAPSULE Take 1 capsule by mouth in the morning for 30 days.START taking Modified Medications as PrescribedNo medications on fileSTOP taking these medicationsNo medications on fileFAMILY HISTORYFamily HistoryProblem Relation Age of OnsetNo Significant Medical Problems MotherMI (myocardial infarction) FatherSOCIAL HISTORYSocial HistorySocioeconomic HistoryMarital status: SingleTobacco UseSmoking status: NeverPassive exposure: NeverSmokeless tobacco: NeverSubstance and Sexual ActivityAlcohol use: NeverDrug use: NeverSocial Determinants of HealthFinancial Resource Strain: Low Risk (08/16/2023)Overall Financial Resource Strain (CARDIA)Difficulty of Paying Living Expenses: Not very hardFood Insecurity: No Food Insecurity (08/16/2023)Hunger Vital SignWorried About Running Out of Food in the Last Year: Never trueRan Out of Food in the Last Year: Never trueTransportation Needs: No Transportation Needs (08/16/2023)PRAPARE - TransportationLack of Transportation (Medical): NoLack of Transportation (Non-Medical): NoPhysical Activity: Sufficiently Active (08/16/2023)Exercise Vital SignDays of Exercise per Week: 6 daysMinutes of Exercise per Session: 30 minSocial Connections: Unknown (08/16/2023)Social Connection and Isolation Panel [NHANES]Frequency of Communication with Friends and Family: More than three times a weekMarital Status: Never marriedHousing Stability: Low Risk (08/16/2023)Housing Stability Vital SignUnable to Pay for Housing in the Last Year: NoNumber of Places Lived in the Last Year: 1Unstable Housing in the Last Year: NoREVIEW OF UNYXSWW64 systems negative except per HPIPHYSICAL EXAMINATIONBP (!) 176/98 | Pulse 104 | Temp 36.7 ?C (98 ?F) (Oral) | Resp 17 | Ht 1.6 m (5' 3") | Wt 54 kg (119 lb) | SpO2 99% | BMI 21.08 kg/m?General: No acute distressHEENT: Normal oral mucosa, anicteric sclerae, NCATCardiovascular: RRRLungs: Symmetric expansion, clear bilaterallyAbdomen: Soft, slightly distended and nontender.Musculoskeletal: No synovitis, normal muscle massGenitourinary: NormalSkin: No rash, no skin lesionsExtremities: No clubbing, no cyanosis, no lower extremity edemaNeuro: AAOx3, no focal deficitsPsych: Normal affectLABS - reviewed pertinent labs as below:CBC BMP PT/INRWBC (10*3/?L)Date Value08/21/2023 14.75 (H)NA (mmol/L)Date Value08/21/2023 120 (L)No results found for: "PT"RBC (10*6/?L)Date Value08/21/2023 4.10 (L)K (mmol/L)Date Value08/21/2023 4.8INR (no units)Date Value04/20/2023 1.0PLT (10*3/?L)Date Value08/21/2023 312CALCIUM (mg/dL)Date Value08/21/2023 8.8HGB (g/dL)Date Value08/21/2023 12.6CL (mmol/L)Date Value08/21/2023 85 (L)aPTTHCT (%)Date Value08/21/2023 35.3 (L)BUN (mg/dL)Date Value08/21/2023 70 (H)APTT Patient (Seconds)Date Value04/21/2023 66 (H)CREATININE (mg/dL)Date Value08/21/2023 8.39 (H)IMAGING - reviewed, pertinent results as below:Hospital Encounter on 08/21/23CT ABDOMEN PELVIS WO CONTRASTNarrativeExam: CT Abdomen and Pelvis without Contrast, 08/21/2023 8:00 PM.Ordering Physician: COSME SPRING.History: Bowel obstruction suspected Stone suspected.Comparison: CT abdomen pelvis 2023.Technique: CT abdomen and pelvis was obtained without intravenous contrast.CT was performed according to ALARA (As Low As Reasonably Achievable).Technical Quality: Adequate.Findings:Lack of intravenous contrast limits evaluation of the abdomen and pelvis.LOWER CHEST:Mild bibasilar atelectasis.ABDOMEN/PELVIS:Liver: Normal.Gallbladder/biliary: Normal gallbladder. No biliary ductal dilation.Pancreas: Normal.Spleen: Normal.Adrenal glands: Normal.Kidneys and ureters: Persistent moderate bilateral hydroureteronephrosiswith significant perinephric stranding. Bilateral hypodensities which areseen to a better degree on prior reflect renal cyst. No obstructive stone.Bladder: Markedly distended urinary bladder without stones or wallthickening.Reproductive organs: Prostatomegaly. Partially imaged scrotal edema.Stomach/bowel: No bowel obstruction. No bowel wall thickening. Normalappendix.Lymph nodes: No lymphadenopathy.Peritoneum: No intraperitoneal free air. No intraperitoneal free fluid.Vessels: Atherosclerosis without aneurysm.MUSCULOSKELETAL:Bones: No acute osseous finding. Subacute/chronic left-sided rib fractures.Soft tissues: Unremarkable.ImpressionImpression:1. Markedly distended urinary bladder with moderate bilateralhydroureteronephrosis suggestive of bladder outlet obstruction. Overall, nosignificant change from prior CT.2. No obstructive stone.3. No bowel obstruction.RL: [id number] of Report ASSESSMENT:1. Obstructive uropathy2. Acute renal insufficiency3. Hyponatremia4. UTI5. Elevated lipase6. Recent admission with elevated troponin with renal insufficiencyPLAN:1. Obstructive uropathy with acute renal insufficiency; patient also with a urinary tract infection. Patient will continue with IV hydration, and will monitor renal function closely. Monitor urine output closely and try to continue with hydration try and closely match patient's urine output. Continue monitoring sodium level closely. Patient with acute hyponatremia as a week ago it was within normal limits. Nephrology has been consulted as well.2. UTI; continue with IV antibiotics3. Elevated lipase level; continue to monitor4. During last admission a week ago patient had elevated troponin; echo from 2022 was reviewed. Cardiology has also seen the patient. No aggressive measures at this time.DVT prophylaxis: enoxaparinStress ulcer prophylaxis: pantoprazoleCode status: FULLAdvanced Care Planning (Z71.89)Above assessment and plan discussed at length with patient, patient expressed full understanding. Questions and concerned addressed.Surrogate decision maker: NOLevel of care expected after discharge: HOMETime spent: 3 minutes discussing the advanced care planSmoking Cessation: (Z71.6)Tobacco user?: NOPatient will require observationTexas REHAB SPECIALIST [place] [address]-9Szjndye and physical nngdOD8393-43-14D97:14:43History and physical [id number] 04614|[id number] for patient sqzz62740-6Hjdupbo and physical noteLNNARRATIVEFormatted C-CDA narrative textUT[address] He[id number] HSWSIVNUBWXGCSWANGLM4550-07-96O79:14:4 31.2.840.436041.1.72.3.15|1.2.840.1143 [id number] [facility] 2023 22:58:21 4218-41-52S28:58:21 [facility] ADMIT H&PDate of Service: 4CHIEF COMPLAINT: elevated blood pressure, fatigueSubjectiveHistory of Present Hgyoqzh40 yo male with pmh of HTN, DM, noncompliance (could not afford medications) who presents to the ED secondary to elevated blood pressure and fatigue that started hours prior to arrival. Additional symptoms: nausea, generalized weakness, intermittent abdominal pain, constipation (had to do self disimpaction 4 days ago), malaise, urinary frequency. Due to the increased urinary frequency and hesitancy, he came to the ED.PAST MEDICAL HISTORYPast Medical History:Diagnosis DateHTN (hypertension)Uncontrolled diabetes mellitus with hyperglycemiaPast Surgical [id number] Right Humerus RepairLeft eye surgeryFamily HistoryProblem Relation Age of OnsetNo Significant Medical Problems MotherMI (myocardial infarction) FatherALLERGIESNo Known AllergiesMEDICATIONSNo current facility-administered medications on file prior to encounter.Current Outpatient Medications on File Prior to EncounterMedication Sig Dispense Refillacarbose 25 mg tablet Take 1 tablet by mouth in the morning and 1 tablet at noon and 1 tablet in the evening. Take with meals. 90 tablet 0blood sugar diagnostic (ACCU-CHEK GUIDE TEST STRIPS) strip Use as directed 100 Each 0Blood-Glucose Meter (ACCU-CHEK GUIDE GLUCOSE METER) Misc Use as directed 1 Each 0lancets 33 gauge Misc Use as directed 100 Each 0I attest that the foregoing medication list in the medical record is true, accurate and complete to the best of my knowledge.SOCIAL HISTORYSocial HistorySocioeconomic HistoryMarital status: SingleTobacco UseSmoking status: NeverPassive exposure: NeverSmokeless tobacco: NeverSubstance and Sexual ActivityAlcohol use: NeverDrug use: NeverSocial Determinants of HealthFinancial Resource Strain: Low Risk (04/21/2023)Overall Financial Resource Strain (CARDIA)Difficulty of Paying Living Expenses: Not hard at allFood Insecurity: No Food Insecurity (04/21/2023)Hunger Vital SignWorried About Running Out of Food in the Last Year: Never trueRan Out of Food in the Last Year: Never trueTransportation Needs: No Transportation Needs (04/21/2023)PRAPARE - TransportationLack of Transportation (Medical): NoLack of Transportation (Non-Medical): NoPhysical Activity: Sufficiently Active (04/21/2023)Exercise Vital SignDays of Exercise per Week: 7 daysMinutes of Exercise per Session: 30 minSocial Connections: Unknown (04/21/2023)Social Connection and Isolation Panel [NHANES]Frequency of Communication with Friends and Family: More than three times a weekMarital Status: Never marriedHousing Stability: High Risk (04/21/2023)Housing Stability Vital SignUnable to Pay for Housing in the Last Year: NoNumber of Places Lived in the Last Year: 1Unstable Housing in the Last Year: YesREVIEW OF SYSTEMSReview of SystemsConstitutional: Positive for fatigue. Negative for activity change, appetite change, chills, diaphoresis, fever and unexpected weight change.HENT: Negative.Eyes: Negative.Respiratory: Negative.Breasts: Negative.Cardiovascular: Negative.Gastrointestinal: Positive for abdominal pain and nausea. Negative for abdominal distention, anal bleeding, blood in stool, constipation, diarrhea, rectal pain and vomiting.Genitourinary: Positive for urgency and frequency (increased). Negative for bladder incontinence, dysuria, hematuria, flank pain, discharge, penile swelling, scrotal swelling, enuresis, difficulty urinating, genital sores, penile pain, testicular pain and nocturia.Musculoskeletal: Negative.Skin: Negative.Neurological: Positive for weakness. Negative for dizziness, tremors, seizures, syncope, facial asymmetry, speech difficulty, light-headedness, numbness and headaches.Psychiatric/Behavioral: Negative.Endocrine: Endocrine negativeObjectivePHYSICAL EXAMINATIONVitals:08/14/23 1800 08/14/23 2200 08/14/23 2302 08/14/23 2307BP: (!) 173/109 133/87 (!) 152/88Pulse: 107 80 81Resp: 12 21 18Temp: 36.5 ?C (97.7 ?F)TempSrc:SpO2: 100% 98% 99%Weight: 54 kg (119 lb) 54 kg (119 lb)Height: 1.6 m (5' 3")Physical ExamVitals and nursing note reviewed.Constitutional:General: He is not in acute distress.Appearance: Normal appearance. He is not ill-appearing, toxic-appearing or diaphoretic.HENT:Head: Normocephalic and atraumatic.Right Ear: External ear normal.Left Ear: External ear normal.Nose: Nose normal. No congestion.Mouth/Throat:Mouth: Mucous membranes are moist.Pharynx: No oropharyngeal exudate or posterior oropharyngeal erythema.Eyes:General: No scleral icterus.Extraocular Movements: Extraocular movements intact.Conjunctiva/sclera: Conjunctivae normal.Pupils: Pupils are equal, round, and reactive to light.Cardiovascular:Rate and Rhythm: Normal rate and regular rhythm.Heart sounds: No murmur heard.No friction rub. No gallop.Pulmonary:Effort: Pulmonary effort is normal. No respiratory distress.Breath sounds: Normal breath sounds. No wheezing or rales.Chest:Chest wall: No tenderness.Abdominal:General: Abdomen is flat. Bowel sounds are normal. There is no distension.Palpations: Abdomen is soft.Tenderness: There is no abdominal tenderness. There is no guarding.Musculoskeletal:General: Normal range of motion.Cervical back: Normal range of motion and neck supple.Right lower leg: No edema.Left lower leg: No edema.Skin:General: Skin is warm and dry.Neurological:Mental Status: He is alert.Psychiatric:Mood and Affect: Mood normal.Behavior: Behavior normal.Thought Content: Thought content normal.Judgment: Judgment normal.LABS/IMAGING - reviewedFULL RESULT:Examination: CT TRAUMA HEAD WO CONTRAST on 2023 4:16 PMClinical Indication: Headache, hypertensiveComparison: NoneTechnique: Noncontrast imaging was obtained from base to vertex.Findings: The sulci and ventricles were unremarkable. There may be subtlewhite matter microvascular ischemic changes, notably in the anteriorperiventricular region, but there is no evidence for hemorrhage or otherclearly acute intracranial process.IMPRESSIONNo acute intracranial lesion. EX AM: CT ABDOMEN AND PELVIS WITH CONTRASTHISTORY: Abdominal abscess/infection suspectedCOMPARISON: None.TECHNIQUE: Contiguous axial imaging was performed following administrationof intravenous contrast. Coronal and sagittal reconstructions wereobtained.FINDINGS:Visualized lung bases are clear. Coronary artery calcification is noted.Hypodensity adjacent to the falciform ligament may be focal fattyinfiltration. Subcentimeter hypodensity in the left hepatic lobe is toosmall to characterize. The gallbladder, spleen, pancreas and adrenal glandsare normal.There is a 3.5 cm cyst at the lower pole of the left kidney and a 1.5 cmcyst at the lower pole the right kidney. There is bilateral perinephric andperiureteral stranding. There is moderate hydroureteronephrosis.The prostate gland is not significantly enlarged. The bladder isprominently distended extending above the umbilicus.The aorta and iliac arteries are normal in caliber. Atherosclerotic changeis present within the internal iliac arteries. Minimal atherosclerosis ofthe aorta and its branches. There is moderate fecal material in the colon.There is no bowel wall thickening or obstruction. Scattered diverticula inthe colon The appendix is normal. There is trace free fluid/edema in theabdomen and pelvis. No free air or drainable fluid collection. Nolymphadenopathy.Degenerative change involving the spine, sacroiliac joints and hips ispresent.IMPRESSIONFindings suggest bladder outlet obstruction/urinary retention with moderatehydroureteronephrosis with perinephric and periureteral stranding,prostatomegaly, and prominently distended bladder extending above theumbilicus.Assessment & PlanOscar Joel is a 58 year old male with PMH as listed above, admitted to the hospital with:Hypertensive urgency:-- Will continue with amlodipineAcute renal failure: post-obstructive cause-- s/p foleyUrinary obstruction: s/p bae. Noted to have an enlarged prostate-- PSA is pendingNSTEMI-- Will continue to trend troponin levelHypokalemia:-- Will replace potassium supplementProphylaxis: DVT- Contraindicated: Cranial/GI Bleeding or other Hemorrhage presentCode Status: Presumed Full Code 69617-8Wqsnosg and physical ackvGZ8950-23-92B62:25:09History and physical noteTXT1.2.840.074182.1.13.104.2.7.2.7 29697|[id number] for patient qikr64493-7Vmpzlcq and physical noteLNNARRATIVEFormatted C-CDA narrative textEMCARE EMERGENCY PHYSICIAN STAFFEMCARE EMERGENCY PHYSICIAN STAFF[address] Sq[id number] OWOOMEBFCEFNPJTJOCHP9366-90-48Y03:25:0 91.2.840.200638.1.72.3.15|1.2.840.1143 50.1.13.104.2.7.2.727879_[id number] [facility] 2023-04-21 00:39:12 3114-21-73C25:39:12 MCAWHITE Admit H&PPCP: Erik Willoughby of Service: 3CHIEF COMPLAINT: PolyuriaHISTORY OF PRESENT ILLNESSSaturnino Maldonado is a 57 year old male with a PMH of HTN, T2DM, Fmhx premature CAD who presented with complaints of polyuria and weakness at [facility] ER. Patient transferred to [place] for further work up.Patient reports that his uncle told him to go to ER as his nephew has lupus and he can't stay like this in his uncle house. He is currently houseless, lives with at times with different family members and friends. Last time he was able to see PCP was 3 years ago. He reports that he has not been able to take care of himself as he doesn't have job or financial means. He reports polyuria which is chronic, and urinary accidents. He reports that when he is not able to find bathroom, he relieve himself, sometimes on bed and sometimes while walking. He denies any fever, chills, cough, SOB, Chest pain, abdominal pain, N/V/C/D, dysuria. At baseline, he walks about 12 miles/day. He denies tobacco, alcohol or drug use. Family history significant for AR in father in his 40s. Currently not taking any medications.In the ED, he was tachycardiac, labs significant for troponin 0.154, WBC 11.74, Glucose 408. EKG wit sinus tach without TWI or REINALDO.Past medical history: has a past medical history of HTN (hypertension) and Uncontrolled diabetes mellitus with hyperglycemia.Past surgical history: has no past surgical history on file.Social history: reports that he does not have a smoking history on file. He has never used smokeless tobacco. He reports that he does not drink alcohol and does not use drugs.Family history: family history includes AR (myocardial infarction) in his father; No Significant Medical Problems in his mother.Allergies: No Known AllergiesMEDICATIONSNo current facility-administered medications on file prior to encounter.No current outpatient medications on file prior to encounter.REVIEW OF SYSTEMSSee HPIPHYSICAL EXAMINATIONVitals:04/20/23 2030 04/20/23 2100 04/20/23 2130 04/20/23 2328BP: 139/90 107/89 115/79 116/80BP Location: Left armPatient Position: SupinePulse: 107 111 117 99Resp: 18 14 15 18Temp: 36.9 ?C (98.4 ?F) 36.7 ?C (98 ?F)TempSrc: Temporal ArterySpO2: 98% 97% 98% 98%Weight: 58.3 kg (128 lb 9 oz)Height: 1.6 m (5' 3")General: alert and oriented, no apparent distress, tangential on exam, suspect intellectual disabilityHEENT: white sclera, eye movements grossly intact, hearing is normalNeck: supple, no massesLungs: clear to auscultation in all sutton bilaterally, unlabored breathingCardio: tachycardiac, no murmurs or rubs, no carotid bruitAbdomen: soft, non-tender, no masses palpated, positive bowel soundsExtremities: no clubbing, cyanosis, or edemaSkin: no rashes or lesions, good turgorNeuro: grossly intactLABS - reviewedIMAGING - reviewed, pertinent results as below:No results found for this visit on 04/20/23.EKG: see mediaCHART REVIEWED: Limited historyNo previous cardiac workupASSESSMENT/PLANOscar Joel is a 57 year old male with PMH as listed above, admitted to the hospital with:NSTEMI (type I vs II)HTNFmhx premature CADPatient with cardiac risk factor (HTN, uncontrolled T2DM, Fmhx of premature CAD) presenting with polyuria incidentally found to have elevated troponin. EKG without REINALDO or TWI. Currently chest pain free. Patient started on heparin, received ASA and Plavix load. Patient will need CM to help with resources.Plan:- Ad[facility] to [facility]- Trend Troponin to peak- Heparin gtt- Asa 81 mg po daily- start Lipitor 80 mg po QHS- CXR- TTE, primary team to consider additional cardiac studies- Consider EP consult for ICD placement if HFrEF- Cardiac diet, EKG qAM and PRN chest pain, Telemetry, O2 per protocol, Electrolytes: Keep K >4, Mg>2- Admit labs: Phos, A1c, NT-proBNP, Iron panel/ Ferritin, fasting Lipid panel in AM- NPO past midnight for possible procedureUncontrolled T2DM with hyperglycemiaPolyuria with urinary retention?BPHPatient haven't seen physician in 3 years and off meds. A1c 12.6. Endo consulted. Urinary retention chronic with overflow incontinence. Patient able to urinate, 300 ml voided but ~500 PVR, RN tried straight cath but failed due to significant pain. Patient currently not amendable, shared decision to wait till morning as he feel that he can urinate more, if PVR continues to be > 300, plan for coude bae placement. Reported BPH per patient, with weak stream and inability to completely void.- Weight base Basal, bolus insulin with SSI- Endo consult for diabetic education- Repeat PVR in am, if >300, plan for bae placement, if failed, consult urology help for coude placement.- Start FlomaxPain ControlledTylenolProphylaxis: DVT- heparinStress Ulcer: no indication for prophylaxisCode Status: addressed: Full Vladimir Fuchs DOInternal Medicine DepartmentSAINT ELIZABETH FORT THOM[facility] Catrachito Alvarez Team ssociated attestation - Bret Banda MD - 04/21/2023 2:47 PM CST I reviewed patient's chart, vitals, lab work, current medications and other diagnostic studies. I saw and examined the patient today and agree with the detailed note. I actively participated in the decision-making process.Nerissa Ronquillo ProfessorDivision of Ybstomrrlz25976-0Uptnebz and physical [id number], Rizwan1.2.840.180704.1.13.104.2.7.2.83 5996JqelBpktzmOM6386-39-55Q06:47:54His tory and physical noteTXT1.2.840.260474.1.13.104.2.7.2.7 75818|[id number] for patient itau38044-7Ukdckjn and physical noteLNNARRATIVEFormatted C-CDA narrative text[address] Qy[id number] GNWLLAJPNLYMFVURHNQP2750-88-58X99:47:5 41.2.840.843929.1.72.3.15|1.2.840.1143 50.1.13.104.2.7.2.727879_[id number] [facility] Notes Date/Time Note Provider Source 2023-08-24 16:07:54 4804-06-41A76:07:54Formatting of this no te might be different from the original.Problem: PainGoal: Control of pain at or below patient's documented comfort goal08/24/2023 1607 by Kalina Georges RNOutcome: Resolved08/24/2023 1313 by Kalina Georges RNOutcome: Adequate for dischargeGoal: Reduction in pain sensation08/24/2023 1607 by Kalina Georges RNOutcome: Resolved08/24/2023 1313 by Kalina Georges RNOutcome: Adequate for dischargeProblem: Activity IntoleranceGoal: Improved activity tolerance08/24/2023 1607 by Kalina Georges RNOutcome: Resolved08/24/2023 1313 by Kalina Georges RNOutcome: Adequate for dischargeProblem: Discharge PlanningGoal: Adequate for discharge08/24/2023 1607 by Kalina Georges RNOutcome: Resolved08/24/2023 1313 by Kalina Georges RNOutcome: Adequate for dischargeGoal: Effective communication08/24/2023 1607 by Kalina Georges RNOutcome: Resolved08/24/2023 1313 by Kalina Georges RNOutcome: Adequate for dischargeProblem: Glucose Control - Initiated in Adult CCGoal: Glucose level within specified parameters08/24/2023 1607 by Kalina Georges RNOutcome: Resolved08/24/2023 1313 by Kalina Georges RNOutcome: Adequate for dischargeProblem: Nutrition DeficitGoal: Adequate nutritional intake08/24/2023 1607 by Kalina Georges RNOutcome: Resolved08/24/2023 1313 by Kalina Georges RNOutcome: Adequate for dischargeProblem: Venous Thromboembolism, (actual or risk of)Goal: Absence of venous thromboembolism (Risk)08/24/2023 1607 by Kalina Georges RNOutcome: Resolved08/24/2023 1313 by Kalina Georges RNOutcome: Adequate for dischargeProblem: Falls, Risk ofGoal: Absence of falls08/24/2023 1607 by Kalina Georges RNOutcome: Resolved08/24/2023 1313 by Kalina Georges RNOutcome: Adequate for discharge 15414-9Gnxq of care tapdUC7337-61-25X83:08:02Plan of care noteTXT1.2.840.781920.1.13.104.2.7.2.889381|20 [id number] for patient gioh12861-7RguzUXPHOAQIXKYMvvuvlsja C-CDA narrative [id number] Georges RN[address] Bd[id number] ESGDXNRWOHRI3842-17-27Q09:08:021.2.840.007720. 1.72.3.15|1.2.840.921087.1.13.104.2.7.2.424997 _[id number] Kalina Georges RN [facility] 2023-08-24 13:14:04 7067-41-47O36:14:04Formatting of this no te might be different from the original.Problem: PainGoal: Control of pain at or below patient's documented comfort goalOutcome: Adequate for dischargeGoal: Reduction in pain sensationOutcome: Adequate for dischargeProblem: Activity IntoleranceGoal: Improved activity toleranceOutcome: Adequate for dischargeProblem: Discharge PlanningGoal: Adequate for dischargeOutcome: Adequate for dischargeGoal: Effective communicationOutcome: Adequate for dischargeProblem: Fluid Volume - ImbalancedGoal: Absence of signs and symptoms of imbalanced fluid volumeOutcome: Adequate for dischargeProblem: Glucose Control - Initiated in Adult CCGoal: Glucose level within specified parametersOutcome: Adequate for dischargeProblem: Nutrition DeficitGoal: Adequate nutritional intakeOutcome: Adequate for dischargeProblem: Venous Thromboembolism, (actual or risk of)Goal: Absence of venous thromboembolism (Risk)Outcome: Adequate for dischargeProblem: Falls, Risk ofGoal: Absence of fallsOutcome: Adequate for discharge 52925-2Ykpb of care gjteTN9580-61-45Q27:14:16Plan of care noteTXT1.2.840.693834.1.13.104.2.7.2.884490|20 [id number] for patient jgdh31652-2WxodLQNYHEJNMQOVvrdwbuff C-CDA narrative text[address] [id number] BARNESAJEYABCZAVDX4186-66-27E75:14:161.2.840.800898. 1.72.3.15|1.2.840.152996.1.13.104.2.7.2.419476 _[id number] [facility] 2023-08-23 07:12:12 1196-72-09D66:12:12Formatting of this no te might be different from the original.Problem: PainGoal: Control of pain at or below patient's documented comfort goalOutcome: Progressing as expectedGoal: Reduction in pain sensationOutcome: Progressing as expectedProblem: Activity IntoleranceGoal: Improved activity toleranceOutcome: Progressing as expectedProblem: Discharge PlanningGoal: Adequate for dischargeOutcome: Progressing as expectedGoal: Effective communicationOutcome: Progressing as expectedProblem: Fluid Volume - ImbalancedGoal: Absence of signs and symptoms of imbalanced fluid volumeOutcome: Progressing as expectedProblem: Glucose Control - Initiated in Adult CCGoal: Glucose level within specified parametersOutcome: Progressing as expectedProblem: Nutrition DeficitGoal: Adequate nutritional intakeOutcome: Progressing as expectedProblem: Venous Thromboembolism, (actual or risk of)Goal: Absence of venous thromboembolism (Risk)Outcome: Progressing as expectedProblem: Falls, Risk ofGoal: Absence of fallsOutcome: Progressing as expected 39939-0Rzyg of care bbhwKF8864-49-27Y94:12:15Plan of care noteTXT1.2.840.661851.1.13.104.2.7.2.746630|20 [id number] for patient brut71059-5UqxfPUYRCQWGYNBHecrcgwqs C-CDA narrative [id number] G Cantu RNUTMBUT[address] Rodriguez [id number] TINOCOCACEZRZCLRYB2442-72-46G61:12:151.2.840.677173. 1.72.3.15|1.2.840.619227.1.13.104.2.7.2.273881 _[id number] Abi Lowery RN [facility] 2023-08-22 22:07:54 7696-78-00C02:07:54Formatting of this no te might be different from the original.Problem: PainGoal: Control of pain at or below patient's documented comfort goalOutcome: Progressing as expectedGoal: Reduction in pain sensationOutcome: Progressing as expectedProblem: Activity IntoleranceGoal: Improved activity toleranceOutcome: Progressing as expectedProblem: Discharge PlanningGoal: Adequate for dischargeOutcome: Progressing as expectedGoal: Effective communicationOutcome: Progressing as expectedProblem: Fluid Volume - ImbalancedGoal: Absence of signs and symptoms of imbalanced fluid volumeOutcome: Progressing as expectedProblem: Glucose Control - Initiated in Adult CCGoal: Glucose level within specified parametersOutcome: Progressing as expectedProblem: Nutrition DeficitGoal: Adequate nutritional intakeOutcome: Progressing as expectedProblem: Venous Thromboembolism, (actual or risk of)Goal: Absence of venous thromboembolism (Risk)Outcome: Progressing as expectedProblem: Falls, Risk ofGoal: Absence of fallsOutcome: Progressing as expected 46104-3Mqbj of care nlnkFL3178-57-61P46:08:05Plan of care noteTXT1.2.840.844093.1.13.104.2.7.2.672695|20 [id number] for patient gwle87948-7GycnFUAAYYKWNLILfrvygoyn C-CDA narrative [id number] Sweeney RNUT[address] [id number] TINOCOSIZJCYOOKNDB7694-00-89N01:08:051.2.840.188270. 1.72.3.15|1.2.840.366686.1.13.104.2.7.2.615431 _[id number] Tammy Sweeney RN [facility] 2023-08-22 08:41:53 6540-33-93Z40:41:53Formatting of this no te might be different from the original.Problem: PainGoal: Control of pain at or below patient's documented comfort goalOutcome: Progressing as expectedGoal: Reduction in pain sensationOutcome: Progressing as expectedProblem: Activity IntoleranceGoal: Improved activity toleranceOutcome: Progressing as expectedProblem: Discharge PlanningGoal: Adequate for dischargeOutcome: Progressing as expectedGoal: Effective communicationOutcome: Progressing as expectedProblem: Fluid Volume - ImbalancedGoal: Absence of signs and symptoms of imbalanced fluid volumeOutcome: Progressing as expectedProblem: Glucose Control - Initiated in Adult CCGoal: Glucose level within specified parametersOutcome: Progressing as expectedProblem: Nutrition DeficitGoal: Adequate nutritional intakeOutcome: Progressing as expected 56013-5Wdkc of care ogdmDZ8084-95-94E27:42:03Plan of care noteTXT1.2.840.715947.1.13.104.2.7.2.437558|20 [id number] for patient laga15132-1LfiaWFYLZQKOLIBUtqggcotp C-CDA narrative [id number] A Webb RNUT[address] Fj[id number] AGHWVTAFTUZZ0758-53-55L07:42:031.2.840.720303. 1.72.3.15|1.2.840.757238.1.13.104.2.7.2.345474 _[id number] Mihaela Lopez RN [facility] 2023-08-22 03:26:01 8605-14-44F78:26:01Formatting of this no te might be different from the original.Problem: PainGoal: Control of pain at or below patient's documented comfort goalOutcome: Progressing as expectedGoal: Reduction in pain sensationOutcome: Progressing as expectedProblem: Activity IntoleranceGoal: Improved activity toleranceOutcome: Progressing as expectedProblem: Discharge PlanningGoal: Adequate for dischargeOutcome: Progressing as expectedGoal: Effective communicationOutcome: Progressing as expectedProblem: Fluid Volume - ImbalancedGoal: Absence of signs and symptoms of imbalanced fluid volumeOutcome: Progressing as expectedProblem: Glucose Control - Initiated in Adult CCGoal: Glucose level within specified parametersOutcome: Progressing as expectedProblem: Nutrition DeficitGoal: Adequate nutritional intakeOutcome: Progressing as expected 58218-3Wpjy of care gdeuOZ3602-77-33I06:26:03Plan of care noteTXT1.2.840.726150.1.13.104.2.7.2.374501|20 [id number] for patient oguq48242-2VvkqKACGFXODKSJPipzurtls C-CDA narrative [id number] S Bland RNUT[address] [id number] EPHRATA COMMUNITY HOSPITALRWZUSZKDFEOT6779-03-22A09:26:031.2.840.132523. 1.72.3.15|1.2.840.198474.1.13.104.2.7.2.999728 _[id number] Angeline Claudio RN [facility] 2023-08-21 23:32:26 1741-03-66V91:32:26Formatting of this no te might be different from the original.Patient admitted to [facility] 2101 for diagnosis of ELIEZER, urinary obstructionPatient agrees to admission, discussed plan of care with patient and family.Patient is awake, alert, oriented, resp reg unlabored, color appropriate for race, PIV intactNo adverse reaction to medications administered while in EDBelongings with patient to unitReport to Xu VILLAGRAN 86732-5Vwbbcvzhk department UhvuNX1683-19-25P23:33:05Emerrivendell behavioral health services department NoteTXT1.2.840.109642.1.13.104.2.7.2.179226|20 [id number] for patient ebco49167-2GrlsROXYJLCKDYFXeuoxdkbv C-CDA narrative [id number] E Linkes RN[id number] RITOSHEQKKOR5908-96-49E77:33:051.2.840.209112. 1.72.3.15|1.2.840.003576.1.13.104.2.7.2.964710 _[id number] Chela Reyes [facility] 2023-08-21 19:43:36 7692-50-81W08:43:36Formatting of this no te might be different from the original.Pt C/O RLQ pain that started yesterday, pt states last BM 08/16/2023. Pt denies any urinary, nausea or vomiting 89[address]-1Rachijvcy department Triage mmxxTW3913-87-37B55:45:01[facility] Triage noteTXT1.2.840.454412.1.13.104.2.7.2.740713|20 [id number] for patient xikl14161-1Cgirtliwr department NoteLNNARRATIVEFormatted C-CDA narrative [id number] J Hoot RN[address] [id number] OETDNNKCWGUW3389-06-54M38:45:011.2.840.053388. 1.72.3.15|1.2.840.733989.1.13.104.2.7.2.653316 _[id number] Sydney Duff RN [facility] - Health 2023-08-21 19:39:00 8710-85-12G53:39:00Formatting of this no te is different from the original.[facility] Emergency Department NotePatient Name: Saturnino Shelley of : 1965 58 year old maleTreatment Room: [place] [id number] Record Number: [id number] Care Physician: Erik Louie JrPatient Escorted by: Self [9]Mode of Arrival: EMS - [place] [46]EMS Treatment Prior to ED Arrival:CIGARETTE EXAMINER treatment: NoneTravel and Exposure Screening:SymptomsDoes patient have any of these symptoms?: (not recorded)Exposure ScreeningHas patient had contact with someone with a communicable disease in the last month?: (not recorded)Diseases exposed to:: (not recorded)Is Patient ?: (not recorded)Exposure Date: (not recorded)Chief Complaint:Chief ComplaintPatient presents withAbdominal PainHistory of Present Illness:58-year-old male presenting for evaluation of abdominal pain. Additionally believes that he has constipation. He states that he has not been able to urinate today. Denies fever. Has hypertension and diabetes. Recent admission has not been able to fill his prescriptions secondary to lack of funding. He was placed on the indigent care program as well as given Toradol prescription benefits. He states that he only has 12 stents to his name secondary to not being able to get a [facility] identification card over the last 4 years. He states this is secondary to not having the appropriate information every time he goes down there.Past Medical History/Immunizations:Past Medical History:Diagnosis DateHTN (hypertension)Uncontrolled diabetes mellitus with hyperglycemiaTetanus received in last 5 years: UnknownAllergies:No Known AllergiesPast Social History:Tobacco UseNever smoked or used smokeless tobacco.Passive Exposure: NeverAlcohol UseNever.Drug UseNever.Past Surgical History:No past surgical history on file.Review of Systems:Review of SystemsConstitutional: Negative for activity change, appetite change, chills, diaphoresis and fever.HENT: Negative for sore throat and voice change.Eyes: Negative for pain and visual disturbance.Respiratory: Negative for cough, chest tightness and shortness of breath.Cardiovascular: Negative for chest pain and leg swelling.Gastrointestinal: Positive for abdominal pain. Negative for blood in stool, constipation and diarrhea.Genitourinary: Positive for difficulty urinating. Negative for dysuria and urgency.Musculoskeletal: Negative for back pain.Skin: Negative for color change, rash and wound.Neurological: Negative for dizziness and headaches.Hematological: Does not bruise/bleed easily.Physical Exam:ED Triage Vitals [08/21/235]Weight 54 kg (119 lb)Actual or estimatedHeight 1.6 m (5' 3")BP (!) 167/99Pulse 94Resp 18Temp 36.7 ?C (98 ?F)Temp source OralSpO2 100 %Measured on Room airPhysical ExamVitals and nursing note reviewed.Constitutional:Appearance: He is well-developed.HENT:Head: Normocephalic and atraumatic.Eyes:General: No scleral icterus.Conjunctiva/sclera: Conjunctivae normal.Pupils: Pupils are equal, round, and reactive to light.Neck:Vascular: No JVD.Cardiovascular:Rate and Rhythm: Normal rate and regular rhythm.Heart sounds: Normal heart sounds.Pulmonary:Effort: Pulmonary effort is normal.Breath sounds: Normal breath sounds. No stridor.Abdominal:General: Bowel sounds are normal.Palpations: Abdomen is soft.Musculoskeletal:General: Normal range of motion.Cervical back: Normal range of motion and neck supple.Skin:General: Skin is warm and dry.Neurological:Mental Status: He is alert and oriented to person, place, and time.Psychiatric:Behavior: Behavior normal.Thought Content: Thought content normal.Radiology:CT ABDOMEN PELVIS WO CONTRASTFinal ResultExam: CT Abdomen and Pelvis without Contrast, 08/21/2023 8:00 PM.Ordering Physician: COSME SPRING.History: Bowel obstruction suspected Stone suspected.Comparison: CT abdomen pelvis 2023.Technique: CT abdomen and pelvis was obtained without intravenouscontrast.CT was performed according to ALARA (As Low As Reasonably Achievable).Technical Quality: Adequate.Findings:Lack of intravenous contrast limits evaluation of the abdomen and pelvis.LOWER CHEST:Mild bibasilar atelectasis.ABDOMEN/PELVIS:Liver: Normal.Gallbladder/biliary: Normal gallbladder. No biliary ductal dilation.Pancreas: Normal.Spleen: Normal.Adrenal glands: Normal.Kidneys and ureters: Persistent moderate bilateral hydroureteronephrosiswith significant perinephric stranding. Bilateral hypodensities which areseen to a better degree on prior reflect renal cyst. No obstructive stone.Bladder: Markedly distended urinary bladder without stones or wallthickening.Reproductive organs: Prostatomegaly. Partially imaged scrotal edema.Stomach/bowel: No bowel obstruction. No bowel wall thickening. Normalappendix.Lymph nodes: No lymphadenopathy.Peritoneum: No intraperitoneal free air. No intraperitoneal free fluid.Vessels: Atherosclerosis without aneurysm.MUSCULOSKELETAL:Bones: No acute osseous finding. Subacute/chronic left-sided ribfractures.Soft tissues: Unremarkable.IMPRESSIONImpression:1. Markedly distended urinary bladder with moderate bilateralhydroureteronephrosis suggestive of bladder outlet obstruction. Overall,nosignificant change from prior CT.2. No obstructive stone.3. No bowel obstruction.RL: 6526End of Report Lab Results:Lab ResultsCBC WITH DIFF - AbnormalResult Value Ref RangeWBC 14.75 (*) 4.20 - 10.70 10*3/?LRBC 4.10 (*) 4.26 - 5.52 10*6/?LHGB 12.6 12.2 - 16.4 g/dLHCT 35.3 (*) 38.4 - 49.3 %MCV 86.1 81.7 - 95.6 fLMCH 30.7 26.1 - 32.7 pgMCHC 35.7 (*) 31.2 - 35.0 g/dLRDW-SD 36.0 (*) 38.5 - 51.6 fLRDW-CV 11.5 (*) 12.1 - 15.4 %PLT 312 150 - 328 10*3/?LMPV 9.4 (*) 9.8 - 13.0 fLNRBC/100 WBC 0.0 0.0 - 10.0 /100 WBCsNRBC x10^3 <0.01 10*3/?LGRAN MAT (NEUT) % 82.7 %IMM GRAN % 0.50 %LYMPH % 6.7 %MONO % 9.8 %EOS % 0.2 %BASO % 0.1 %GRAN MAT x10^3(ANC) 12.19 (*) 1.99 - 6.95 10*3/uLIMM GRAN x10^3 0.08 (*) 0.00 - 0.06 10*3/uLLYMPH x10^3 0.99 (*) 1.09 - 3.23 10*3/uLMONO x10^3 1.44 (*) 0.36 - 1.02 10*3/uLEOS x10^3 0.03 (*) 0.06 - 0.53 10*3/uLBASO x10^3 <0.03 0.01 - 0.09 10*3/uLCOMP. METABOLIC PANEL (71101) - AbnormalNA 120 (*) 135 - 145 mmol/LK 4.8 3.5 - 5.0 mmol/LCL 85 (*) 98 - 108 mmol/LCO2 TOTAL 21 (*) 23 - 31 mmol/LAGAP 14 2 - 16BUN 70 (*) 7 - 23 mg/dLGLUCOSE 97 70 - 110 mg/dLCREATININE 8.39 (*) 0.60 - 1.25 mg/dLTOTAL BILI 0.7 0.1 - 1.1 mg/dLCALCIUM 8.8 8.6 - 10.6 mg/Maulik PROTEIN 7.2 6.3 - 8.2 g/dLALBUMIN 4.1 3.5 - 5.0 g/dLALK PHOS 95 34 - 122 U/LALTv 12 5 - 50 U/LAST(SGOT) 24 13 - 40 U/LeGFR 6.9 mL/min/1.26w9KOCNMP - AbnormalLIPASE 758 (*) 0 - 220 U/LURINALYSIS - AbnormalAPPEARANCE Hazy (*) ClearCOLOR Yellow YellowPH 5.0 4.8 - 8.0SP GRAVITY 1.004 1.003 - 1.030GLU U QUAL Normal NormalBLOOD 2+ (*) NegativeKETONES Negative NegativePROTEIN Negative NegativeUROBILIN Normal NormalBILIRUBIN Negative NegativeNITRITE Negative NegativeLEUK MANAS 250/uL (*) NegativeRBC/HPF 1 0 - 3 HPFWBC/HPF 31 (*) 0 - 5 HPFBACTERIA Few (*) NegativeSQ EPITH <1 HPFWBC CLUMPS 4 (*) <=1 HPFBASIC METABOLIC PANEL (NA, K, CL, CO2, GLUCOSE, BUN, CREATININE, CA)EKG:If EKG completed, see Procedure Note.Orders and Treatments:Orders Placed This EncounterProceduresCT ABDOMEN PELVIS WO CONTRASTCbc with DiffComp. Metabolic Panel (66013)LipaseUrinalysisBasic Metabolic Panel (NA, K, CL, CO2, GLUCOSE, BUN, CREATININE, CA)Orders Placed This EncounterMedicationsmagnesium citrate solution 296 mLFirst Provider Eval:ED EventsDate/Time Event User Kekjzmdn98/27/241949 Medical Screening Begins COSME SPRING --08/21/231949 First Provider Evaluation COSME SPRING --AdmissionCareGuideline: Urologic Disease, InpatientBased on the indications selected for the patient, the bed status of Inpatient was determined to be METThe following indications were selected as present at the time of evaluation of the patient:- Acute urinary retention requiring inpatient care, as indicated by 1 or more of the following:- Acute kidney injury (stage 2) with significant clinical findings, as indicated by ALL of the following:- Acute kidney injury (stage 2), as indicated by 1 or more of the following:- Rise in creatinine to 2 times its baseline value or higher- Reduction of more than 50% in estimated glomerular filtration rate from baseline eGFR - Adult CalculatoreGFR - Pediatric Calculator- Urine output less than 0.5 mL/kg/hr for 12 hours despite adequate volume status- Significant clinical findings, as indicated by 1 or more of the following:- Clinically significant electrolyte abnormality that is severe (eg, hyperkalemia with severe ECG findings) or persists despite appropriate treatmentAdmissionCare documentation entered by: Cosme Football [employer], 27th edition, Copyright ? 2022 [facility] [employer] All Rights Reserved.1908-86-50V98:26:32-05:00ED COURSEED Course as of 08/21/232254Sat Aug 20 CREATININE(!): 8.39 [PS]2224 NA(!): 120 [PS]222 WBC x10^3(!): 14.75 [PS]222 WBC/HPF(!): 31 [PS]2224 LEUK MANAS(!): 250/uL [PS]ED Course User Index[PS] Cosme Spring, DODiagnosis/Impression as of 08/21/23 2255Constipation, unspecified constipation typeAcute urinary retentionHyponatremiaAKI (acute kidney injury)Obstructive uropathyProcedures:ProceduresMDM:Medical Decision Detqci39-tmwy-wso male with obstructive uropathy secondary to urinary retention. Multiple metabolic derangements secondary to his urinary retention. Bae placed and greater than 2 L of output. Patient will need to be admitted for further evaluation and management as well as metabolic trending. Patient stable for admission. Discussed with hospitalist Dr. Banda.Problems Addressed:Acute urinary retention: acute illness or injuryAKI (acute kidney injury): acute illness or injuryHyponatremia: acute illness or injury that poses a threat to life or bodily functionsObstructive uropathy: acute illness or injury with systemic symptomsAmount and/or Complexity of Data ReviewedLabs: ordered. Decision-making details documented in ED Course.Radiology: ordered.RiskOTC drugs.Flowsheet Documentation:Scoring Tools:No data recordedDisposition/Condition:ED DispositionNoneDischarge Medications:Patient's MedicationsSTART taking these medicationsNo medications on fileCONTINUE taking these medications which have NOT CHANGEDACARBOSE 25 MG TABLET Take 1 tablet by mouth in the morning and 1 tablet at noon and 1 tablet in the evening. Take with meals. Do all this for 30 days.AMLODIPINE 5 MG TABLET Take 1 tablet by mouth in the morning for 30 days.BLOOD SUGAR DIAGNOSTIC (ACCU-CHEK GUIDE TEST STRIPS) STRIP Use as directedBLOOD-GLUCOSE METER (ACCU-CHEK GUIDE GLUCOSE METER) MISC Use as directedLANCETS 33 GAUGE MISC Use as directedLOSARTAN 25 MG TABLET Take 1 tablet by mouth in the morning for 30 days.METFORMIN 500 MG 24 HR TABLET Take 1 tablet by mouth in the morning and 1 tablet in the evening. Take with meals. Do all this for 30 days.PIOGLITAZONE 15 MG TABLET Take 1 tablet by mouth in the morning for 30 days.TAMSULOSIN 0.4 MG 24 HR CAPSULE Take 1 capsule by mouth in the morning for 30 days.START taking Modified Medications as PrescribedNo medications on fileSTOP taking these medicationsNo medications on fileFollow-up:Electronically signed by:Cosme Spring DO08/21/23 2255 47292-5Dfrfwumod Emergency department VnkiNJ1119-40-61N29:55:31Physician Emergency department NoteTXT1.2.840.241259.1.13.104.2.7.2.222122|20 [id number] for patient woet44388-7Lpttgkcks department NoteLNNARRATIVEFormatted C-CDA narrative text[address] Gy[id number] NCMBJTPIBRUB8934-43-26V35:55:311.2.840.236142. 1.72.3.15|1.2.840.220995.1.13.104.2.7.2.061803 _[id number] [facility] 2023-08-21 19:39:00 7404-28-58E90:39:00Formatting of this no te might be different from the original.AdmissionCareGuideline: Urologic Disease, InpatientBased on the indications selected for the patient, the bed status of Inpatient was determined to be METThe following indications were selected as present at the time of evaluation of the patient:- Acute urinary retention requiring inpatient care, as indicated by 1 or more of the following:- Acute kidney injury (stage 2) with significant clinical findings, as indicated by ALL of the following:- Acute kidney injury (stage 2), as indicated by 1 or more of the following:- Rise in creatinine to 2 times its baseline value or higher- Reduction of more than 50% in estimated glomerular filtration rate from baseline eGFR - Adult CalculatoreGFR - Pediatric Calculator- Urine output less than 0.5 mL/kg/hr for 12 hours despite adequate volume status- Significant clinical findings, as indicated by 1 or more of the following:- Clinically significant electrolyte abnormality that is severe (eg, hyperkalemia with severe ECG findings) or persists despite appropriate treatmentAdmissionCare documentation entered by: Cosme ClearMyMailS[facility] [employer], edition, Copyright ? 2022 [facility] [employer]* [facility] All Rights Reserved.8770-52-61A44:26:32-05:00Electronical ly signed by Cosme Spring DO at 08/21/2023 10:26 PM [id number] Admission Criteria1.2.840.694746.1.13.104.2.7.4.487424.5 6839878-24-52I47:26:33EC Admission CriteriaTXT1.2.840.246104.1.13.104.2.7.2.91435 9|[id number] for patient syqh21339-0VhvzFPORCGKSUDXZcdghuevm C-CDA narrative Synacor[address] [id number] BARNESWIRXJFTXJURS3326-55-04O38:26:331.2.840.674155. 1.72.3.15|1.2.840.819514.1.13.104.2.7.2.212049 _[id number] [facility] 2023-08-17 08:32:29 1943-39-46W60:32:29Formatting of this no te might be different from the original.----- Message from Yary Renner sent at 08/17/2023 8:24 AM CDT -----Regarding: RE: Follow up apptPatients brother answered the line and stated his brother doesn't have a phone at this time and will try and call us back to schedule this appt. Thank you Dr Rivera.----- Message -----From: Ricky Rivera MDSent: 08/16/2023 8:23 PM CDTTo: [facility] PssSubject: Follow up apptNeeds follow up with one of us in 3-4 weeks. 97434-2Htrpsbipm encounter RkbySP8319-09-81S19:32:29Telephone encounter NoteTXT1.2.840.165107.1.13.104.2.7.2.041873|20 [id number] for patient uzmx27309-7JacmLEUIILCDCXVDcpuopssj C-CDA narrative Synacor[id number] TINOCOODVLGARGABCI4340-49-25P85:32:291.2.840.808397. 1.72.3.15|1.2.840.950687.1.13.104.2.7.2.646180 _[id number] [facility] 2023-08-16 17:56:55 5039-73-30Z35:56:55Summary: discharge transportation Discharge paperwork provided, patient stated he does not have a ride.Transportation was arranged with voucher.Discharge location: [address] [place] [address]Aotdsmz verbalized understanding. 98895-6Duonp RecvYU4376-49-85C96:58:12Nurse NoteTXT1.2.840.761119.1.13.104.2.7.2.625418|20 [id number] for patient yvxy74275-7Iguhj NoteLNNARRATIVEFormatted C-CDA narrative [id number] Hernandez RNUT[id number] TINOCOWIOVREETINPU4741-68-21X67:58:121.2.840.595712. 1.72.3.15|1.2.840.591138.1.13.104.2.7.2.171128 _[id number] Hilary Quinones RN [facility] 2023-08-16 17:19:16 5507-15-52D31:19:16Formatting of this no te might be different from the original.Problem: PainGoal: Control of pain at or below patient's documented comfort goalOutcome: ResolvedGoal: Reduction in pain sensationOutcome: ResolvedProblem: Skin integrity Impaired (Risk or Actual)Goal: Prevention of new skin breakdownOutcome: ResolvedProblem: Venous Thromboembolism, (actual or risk of)Goal: Absence of venous thromboembolism (Risk)Outcome: Resolved 42511-4Ejbo of care grtjZC6508-27-16E34:19:21Plan of care noteTXT1.2.840.225562.1.13.104.2.7.2.756782|20 [id number] for patient xbly18087-5DfjjEFKKQKSLZHTFzbtolbnl C-CDA narrative [id number] TINOCOZYHZYKAVDZCE2194-83-61E33:19:211.2.840.700981. 1.72.3.15|1.2.840.341043.1.13.104.2.7.2.002818 _[id number] [facility] 2023-08-16 10:33:18 3225-55-66E69:33:18Summary: foleyFormatt ing of this note might be different from the original.Bae discontinued without complications. Patient given lactulose PO. Patient notified to notify nurse and to leave urine/stool before flushing for nursing staff to assess. Patient verbalized understanding. 97712-3Orndm KrxkCU0414-82-71B18:34:47Nurse NoteTXT1.2.840.470133.1.13.104.2.7.2.017516|20 [id number] for patient mzkw15027-0Qyiyn NoteLNNARRATIVEFormatted C-CDA narrative [id number] TINOCORBHXGNBVRHYC1594-21-55E13:34:471.2.840.607728. 1.72.3.15|1.2.840.930110.1.13.104.2.7.2.416558 _[id number] [facility] 2023-08-16 00:51:24 3521-24-76B13:51:24Formatting of this no te might be different from the original.Problem: PainGoal: Control of pain at or below patient's documented comfort goalOutcome: Progressing as expectedGoal: Reduction in pain sensationOutcome: Progressing as expectedProblem: Skin integrity Impaired (Risk or Actual)Goal: Prevention of new skin breakdownOutcome: Progressing as expectedProblem: Venous Thromboembolism, (actual or risk of)Goal: Absence of venous thromboembolism (Risk)Outcome: Progressing as expected 67161-3Jnqd of care vrfhDG8982-88-76B60:51:26Plan of care noteTXT1.2.840.262042.1.13.104.2.7.2.528140|20 [id number] for patient fdqd37343-7PjfdYTQGGEAVHRGQqqqujwql C-CDA narrative textUT[address] RjdoEx[id number] PQZMIJWMFPHH9082-09-28N59:51:261.2.840.758182. 1.72.3.15|1.2.840.361416.1.13.104.2.7.2.775427 _[id number] [facility] 2023-08-15 19:27:06 6372-96-39Y41:27:06Formatting of this no te might be different from the original.Problem: PainGoal: Control of pain at or below patient's documented comfort goalOutcome: Progressing as expectedGoal: Reduction in pain sensationOutcome: Progressing as expectedProblem: Skin integrity Impaired (Risk or Actual)Goal: Prevention of new skin breakdownOutcome: Progressing as expectedProblem: Venous Thromboembolism, (actual or risk of)Goal: Absence of venous thromboembolism (Risk)Outcome: Progressing as expected 85593-2Simi of care mutvUI3169-32-02X65:27:11Plan of care noteTXT1.2.840.253145.1.13.104.2.7.2.529125|20 [id number] for patient wqcj09443-2OxktEQVJUBETRYQXjpthhaam C-CDA narrative [id number] Elizabeth VILLAGRAN[id number] TINOCOBAGVLULDBSKW3021-62-20J62:27:111.2.840.847656. 1.72.3.15|1.2.840.931530.1.13.104.2.7.2.420572 _[id number] Libia Johnson RN [facility] 2023 23:43:36 7128-67-99H22:43:36Formatting of this no te might be different from the original.Problem: PainGoal: Control of pain at or below patient's documented comfort goalOutcome: Progressing as expectedGoal: Reduction in pain sensationOutcome: Progressing as expectedProblem: Skin integrity Impaired (Risk or Actual)Goal: Prevention of new skin breakdownOutcome: Progressing as expectedProblem: Venous Thromboembolism, (actual or risk of)Goal: Absence of venous thromboembolism (Risk)Outcome: Progressing as expected 30144-7Enfc of care ndqrPM1927-43-89A82:43:45Plan of care noteTXT1.2.840.090304.1.13.104.2.7.2.745953|20 [id number] for patient esxo94518-2OornEWTAEHKRAFHKooixarco C-CDA narrative text[address] [id number] TINOCOYKAQRMEBJVVM3481-92-63H71:43:451.2.840.130381. 1.72.3.15|1.2.840.901319.1.13.104.2.7.2.403424 _[id number] [facility] 2023 23:01:15 6099-69-93X25:01:15Formatting of this no te might be different from the original.Patient admitted to [facility] for diagnosis of Hypertension, elevated troponin, urine retention, ELIEZER, hypokalemia.Patient agrees to admission, discussed plan of care with patient and family.Patient is awake, alert, oriented, resp reg unlabored, color appropriate for race, PIV intactNo adverse reaction to medications administered while in EDBelongings with patient to unitReport to [facility] [place] [address]-9Efuuzukvi department LfltEH3095-71-59Q93:04:23[facility] department NoteTXT1.2.840.500510.1.13.104.2.7.2.646810|20 [id number] for patient zogb31149-9RtzbBJRMUJIDIRYKugqhnsyo C-CDA narrative [id number] E Tyler RNUT74 Pope StreetZp[id number] LQZHPBLRTPIE0982-42-64S06:04:231.2.840.124247. 1.72.3.15|1.2.840.548194.1.13.104.2.7.2.866367 _[id number] Josi Miller RN [facility] 2023 18:56:57 5142-38-53Q66:56:57Formatting of this no te might be different from the original.Handoff report given to Josi VILLAGRAN 64985-9Tweacgiti department HpjbSU1378-43-93M82:57:07[facility] department NoteTXT1.2.840.882144.1.13.104.2.7.2.692607|20 [id number] for patient ufrc39857-4YykgIXMEQOUXFLSWljutmwaa C-CDA narrative [id number] E Leoncio LY[id number] FREGOSOPIAZWOMTGCKR4440-63-36J37:57:071.2.840.201470. 1.72.3.15|1.2.840.058198.1.13.104.2.7.2.841395 _[id number] Nunu Mayer Leoncio VILLAGRAN [facility] 2023 14:42:29 3634-55-20I91:42:29Formatting of this no te might be different from the original.Has been out of diabetic, BP meds since April. States he can't "afford it". Struggling with constipation for "several days". He called EMS today for excessive fatigue and worsening hypertension. He is A&Ox4 and able to ambulate. 38957-3Qvrknknsy department Triage kuekME2960-85-54Q12:44:03[facility] Triage noteTXT1.2.840.732634.1.13.104.2.7.2.234500|20 [id number] for patient qujg87104-0Ewfplsjmz department NoteLNNARRATIVEFormatted C-CDA narrative [id number] Fief RN[address] [id number] AMWGTMVNCSPE4860-19-49M61:44:031.2.840.839014. 1.72.3.15|1.2.840.685919.1.13.104.2.7.2.282837 _[id number] Alba Hernandez RN [facility] 2023 14:38:00 2360-23-14O71:38:00Associated Order(s): EKG-12 Lead ROUTINE ONCEPre-Procedure Diagnose(s): Hypertension, unspecified typePost-Procedure Diagnose(s): Hypertension, unspecified type; Elevated troponin I level; Urine retention [facility] Emergency Department NotePatient Name: Saturnino Shelley of : 1965 58 year old maleTreatment Room: [address] Record Number: [id number] Care Physician: Erik Louie JrPatient Escorted by: Self [9]Mode of Arrival: EMS - [place] [46]EMS Treatment Prior to ED Arrival:Travel and Exposure Screening:SymptomsDoes patient have any of these symptoms?: (not recorded)Exposure ScreeningHas patient had contact with someone with a communicable disease in the last month?: (not recorded)Diseases exposed to:: (not recorded)Is Patient ?: (not recorded)Exposure Date: (not recorded)Chief Complaint:Chief ComplaintPatient presents withNauseaHypertensionHistory of Present Illness:58 year old male with hx of DM, HTN, currently noncompliant with meds due to financial issues comes in with feelings of shakiness, generalized weakness, abdominal pain, constipation, and generalized feeling of unwell. Denies any fever no nausea vomiting. Denies smoking drinking or drugs. Does not check his blood sugar at home, patient is currently homeless. 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 No pertinent surgical history.Review of Systems:Review of SystemsConstitutional: Positive for fatigue. Negative for fever.HENT: Negative.Eyes: Negative.Respiratory: Negative.Cardiovascular: Negative.Gastrointestinal: Positive for abdominal pain, constipation and nausea. Negative for diarrhea and vomiting.Genitourinary: Negative.Musculoskeletal: Negative.Skin: Negative.Neurological: Positive for weakness. Negative for dizziness, syncope, speech difficulty and numbness.Psychiatric/Behavioral: Negative for confusion.All other systems reviewed and are negative.Physical Exam:ED Triage Vitals [08/14/23 1444]Weight 57.2 kg (126 lb)Actual or estimated Estimated by patient/family reportHeight 1.6 m (5' 3")BP (!) 187/115Pulse 93Resp 14Temp 36.2 ?C (97.2 ?F)Temp source OralSpO2 99 %Measured on Room airPhysical ExamVitals and nursing note reviewed.Constitutional:General: He is not in acute distress.Appearance: He is not ill-appearing or toxic-appearing.Comments: Appears mildly uncomfortable but nontoxic, oriented x 3, alert and interactiveHENT:Head: Normocephalic and atraumatic.Right Ear: External ear normal.Left Ear: External ear normal.Nose: Nose normal.Mouth/Throat:Mouth: Mucous membranes are dry.Pharynx: Oropharynx is clear.Comments: Mildly dry mucous membranesEyes:General: No scleral icterus.Extraocular Movements: Extraocular movements intact.Comments: CN II to XII intact, no facial asymmetryCardiovascular:Rate and Rhythm: Normal rate and regular rhythm.Heart sounds: Normal heart sounds.Pulmonary:Breath sounds: Normal breath sounds.Abdominal:Palpations: Abdomen is soft.Tenderness: There is abdominal tenderness. There is no right CVA tenderness or left CVA tenderness.Comments: Diffuse lower abdominal discomfort to palpation no guarding or reboundMusculoskeletal:General: Normal range of motion.Cervical back: Normal range of motion. No rigidity or tenderness.Right lower leg: No edema.Left lower leg: No edema.Skin:General: Skin is warm.Capillary Refill: Capillary refill takes less than 2 seconds.Neurological:General: No focal deficit present.Mental Status: He is alert and oriented to person, place, and time.Psychiatric:Thought Content: Thought content normal.Radiology:No orders to displayLab Results:Lab Results - No data to displayEKG:If EKG completed, see Procedure Note.Orders and Treatments:No orders of the defined types were placed in this encounter.No orders of the defined types were placed in this encounter.First Provider Eval:ED EventsDate/Time Event User Deewqncf53/20/24 6625 Medical Screening Begins UMANG BOTELLO MD --08/14/23 1504 First Provider Evaluation UMANG BOTELLO MD --ED COURSEED Course as of 08/14/23 184at Aug 13 Discussed all the results with the patient, understands my recommendation for observation for ELIEZER, dehydration, urine retention, hypertensive urgency and elevated troponin. Patient understands and agrees with plan [CD]183 URINALYSIS(!)No UTI [CD]181 CK: 148No Rhabdo [CD]172 AGAP: 11DKA less likely [CD]172 WBC x10^3(!): 12.69Assessing for infection [CD]1724 K(!): 3.4Replaced with PO postassium [CD]172 TROPONIN I(!): 0.081Aspirin given [CD]172 CREATININE(!): 2.40Was .63 - 3 months ago [CD]1722 IMPRESSIONNo acute cardiopulmonary abnormality.[CD]1652 IMPRESSIONFindings suggest bladder outlet obstruction/urinary retention with moderatehydroureteronephrosis with perinephric and periureteral stranding,prostatomegaly, and prominently distended bladder extending above theumbilicus.Bae ordered [CD]1648 CXR interpreted by myself no acute cardiopulmonary pathology [CD]1647 LACTIC ACID WHOLE BLOOD: 1.58Severe systemic infection less likely [CD]1647 PH NOY: 7.34No acidosis [CD]1529 POCT GLU(!): 165 [CD]1457 58 year old male with hx of DM, HTN, currently noncompliant with meds due to financial issues comes in with feelings of shakiness, generalized weakness, abdominal pain, constipation, and generalized feeling of unwell. Denies any fever no nausea vomiting. Denies smoking drinking or drugs. Does not check his blood sugar at home, patient is currently homeless. Denies chest pain or shortness of breath, denies UTI symptomsDifferential includes but not limited to dehydration, ELIEZER, electrolyte abnormality, intra-abdominal infection, UTI, DKA, hyperglycemia, hypertensive urgency, hypertension, intracranial hemorrhage, less likely infectionPlan is symptom control, labs, x-rays, CT scan monitor and reassessment. Patient understands and agrees with plan [CD]ED Course User Index[CD] Umang Botello MDDiagnosis/Impression as of 04/20/24 1841Hypertension, unspecified typeElevated troponin I levelUrine retentionAKI (acute kidney injury)HypokalemiaProcedures:EKG-12 Lead ROUTINE ONCEDate/Time: 2023 5:55 PMPerformed by: Umang Botello MDAuthorized by: Umang Botello MDECG interpreted by ED Physician in the absence of a photographer news: yesPrevious ECG:Previous ECG: Compared to currentSimilarity: No changeComparison ECG info: 04/20/23Interpretation:Interpretation: abnormalRate:ECG rate: 101ECG rate assessment: tachycardicRhythm:Rhythm: sinus tachycardiaEctopy:Ectopy: noneQRS:QRS axis: NormalQRS intervals: NormalQRS conduction: normalST segments:ST segments: NormalT waves:T waves: normalQ waves:Abnormal Q-waves: presentQ waves: II, III and aVFMDM:Medical Decision MakingSee ED course for MDMProblems Addressed:ELIEZER (acute kidney injury): complicated acute illness or injuryElevated troponin I level: acute illness or injuryHypertension, unspecified type: chronic illness or injuryHypokalemia: acute illness or injuryUrine retention: complicated acute illness or injuryAmount and/or Complexity of Data ReviewedExternal Data Reviewed: ECG and notes.Labs: ordered. Decision-making details documented in ED Course.Radiology: ordered and independent interpretation performed. Decision-making details documented in ED Course.ECG/medicine tests: ordered and independent interpretation performed. Decision-making details documented in ED Course.Details: See procedure noteRiskOTC drugs.Prescription drug management.Decision regarding hospitalization.Diagnosis or treatment significantly limited by social determinants of health.Risk Details: Financial, homelessFlowsheet Documentation:Scoring Tools:No data recordedDisposition/Condition:ED DispositionNoneDischarge Medications:Patient's MedicationsSTART taking these medicationsNo medications on fileCONTINUE taking these medications which have NOT CHANGEDACARBOSE 25 MG TABLET Take 1 tablet by mouth in the morning and 1 tablet at noon and 1 tablet in the evening. Take with meals.BLOOD SUGAR DIAGNOSTIC (ACCU-CHEK GUIDE TEST STRIPS) STRIP Use as directedBLOOD-GLUCOSE METER (ACCU-CHEK GUIDE GLUCOSE METER) MISC Use as directedLANCETS 33 GAUGE MISC Use as directedSTART taking Modified Medications as PrescribedNo medications on fileSTOP taking these medicationsNo medications on fileFollow-up:Electronically signed by:Umang Botello MD08/14/231851 06526-1Nzbvwpzjj Emergency department LjmfWH0192-18-39R36:52:17Physician Emergency department NoteTXT1.2.840.610024.1.13.104.2.7.2.700445|20 [id number] for patient vbam84668-8Xvcrnvvai department NoteLNNARRATIVEFormatted C-CDA narrative text[address]SuabDivimatciWtufrwwesZKXM7163825898XLHZYSTAIJ RWZIYRASFTZW7178-95-17E84:52:171.2.840.892935. 1.72.3.15|1.2.840.243692.1.13.104.2.7.2.027045 _[id number] [facility] 2023 14:38:00 2870-05-22X92:38:00Formatting of this no te might be different from the original.AdmissionCareGuideline: Renal Failure (Acute), ObservationBased on the indications selected for the patient, the bed status of Observation was determined to be METThe following indications were selected as present at the time of evaluation of the patient:- Acute kidney injury (eg, rise in serum creatinine, reduction in estimated glomerular filtration rate from baseline)- Clinical concern necessitating monitoring or treatment beyond emergency department care, as indicated by 1 or more of the following:- Vital sign findings not as expected for chronic patient condition or baseline (eg, intentionally low blood pressure in heart failure)- Stability of renal function not clear (eg, concern that serum creatinine has not plateaued, and will rise over serial assessments)AdmissionCare documentation entered by: Umang ConteCornerstone Special[facility] [employer], 27th edition, Copyright ? 2022 [facility] [employer]* [facility] All Rights Reserved.1714-44-35V90:45:18-05:00Electronical ly signed by Umang Botello MD at 2023 6:45 PM [id number] Admission Criteria1.2.840.489175.1.13.104.2.7.4.483817.5 0911255-97-69O12:45:20EC Admission CriteriaTXT1.2.840.492268.1.13.104.2.7.2.21463 9|1004846415YQFfzffwvej for patient cbai69630-5TwsxNICVOISCSRLAvqjiyojn C-CDA narrative text[address] Rk[id number] GZWPYZWUBIMA6288-79-03R63:45:201.2.840.582241. 1.72.3.15|1.2.840.625214.1.13.104.2.7.2.133998 _[id number] [facility] 2023 14:38:00 0313-27-42Y83:38:00Formatting of this no te might be different from the original.AdmissionCareGuideline: Renal Failure (Acute) - INPT, InpatientBased on the indications selected for the patient, the bed status of Inpatient was determined to be METThe following indications were selected as present at the time of evaluation of the patient:- Acute renal failure (stage 3 acute kidney injury), as indicated by 1 or more of the following:- Rise in creatinine to 3 times its baseline value or higher- Acute kidney injury (eg, rise in serum creatinine, reduction in estimated glomerular filtration rate from baseline) requiring inpatient care, as indicated by 1 or more of the following:- Severe hypertension (SBP greater than 180 mm Hg or DBP greater than 120 mm Hg in adults or greater than the 95th percentile for age, gender, and height plus 30 mm Hg in pediatric patients)AdmissionCare documentation entered by: Umang HernandezEssentia Health [employer], 27 edition, Copyright ? 2022 [facility] [employer]* [facility] All Rights Reserved.0348-21-68M12:00:25-05:00Electronical ly signed by Umang Botello MD at 2023 7:00 PM [id number] Admission Criteria1.2.840.665950.1.13.104.2.7.4.256894.5 8602393-01-50Z46:00:26EC Admission CriteriaTXT1.2.840.041180.1.13.104.2.7.2.91497 9|[id number] for patient iyob87233-4NbojHLVPJTDHATHUxcyecvkq C-CDA narrative text[address] Mu[id number] QKEUQVCSZWRF7561-92-58H44:00:261.2.840.161913. 1.72.3.15|1.2.840.611824.1.13.104.2.7.2.986139 _[id number] [facility] 2023-04-27 15:56:14 6096-40-48I32:56:14Formatting of this no te might be different from the original.TRANSITIONAL CARE MANAGEMENT ASSESSMENT04/27/2023Saturnino MaldonadoUaazrty741265HVmvvr Ramirez is a 57 year old /White male was admitted on 04/20/[address] He was discharged on 04/23/23 with discharge disposition of HR- Routine Discharge.Admitting Physician: Parvez Monroe MDischarge Diagnosis: NSTEMI (non-ST elevated myocardial infarction) [I21.4]Niece is going to give message to pt. Aware of f/u appt. At [place]. He voiced he had a ride to her. If he needs anything she will pass my message to him. She hears from him if he needs something or to check in.No linked episodesTCM Rjz-lcap-tb-face outreach documentation:Future Appointments: 65124-9Apmscfvpj encounter PuebRW7093-23-08L69:58:59Telephone encounter NoteTXT1.2.840.030970.1.13.104.2.7.2.483331|19 [id number] for patient syek97450-2BojoBANIHANZBJDKyziukscw C-CDA narrative [id number] Rivas [address] [id number] TINOCOLVQSSGITNPDB3984-39-44N39:58:591.2.840.589545. 1.72.3.15|1.2.840.215683.1.13.104.2.7.2.882076 _[id number] Jeannette Dawn [facility] 2023-04-23 18:39:42 1908-58-50D25:39:42Formatting of this no te might be different from the original.Patient refuses to take taxi voucher which takes him directly to [facility] stating, "My brother is on his way to pick me up. I don't want to upset him as it is anymore." When asked if his brother is going to take him to [facility], patient stated, "I don't know. That will be between me and my brother." Transportation in room, wheeled patient downstairs to [facility]. 66513-2Klyyn PzxkLZ2917-30-08L84:42:34Nurse NoteTXT1.2.840.036669.1.13.104.2.7.2.738379|19 [id number] for patient daeb56948-6JfbzWJKIGDQSQGLJlzdsmtki C-CDA narrative [id number] Feliciano RN[address] [id number] SPFYVCOXOMRV4402-17-65O99:42:341.2.840.140064. 1.72.3.15|1.2.840.402810.1.13.104.2.7.2.982759 _[id number] Meme Sparks RN [facility] 2023-04-23 17:33:42 5039-37-15G79:33:42Formatting of this no te might be different from the original.Problem: Glucose controlGoal: Glucose level within specified bwcjlogmgz56/29/20231732 by Valentino Whiting, RNOutcome: Adequate for dybabcgnq90/29/2023 173 by Valentino Whiting, RNOutcome: Adequate for uirxlbluc56/29/2023 105 by Valentino Whiting, RNOutcome: Progressing as expectedProblem: Discharge PlanningGoal: Adequate for detgviqik15/29/2023 173 by Valentino Whiting, RNOutcome: Adequate for eouvckoni10/29/2023 173 by Valentino Whiting, RNOutcome: Adequate for ykzjayxzm56/29/2023 105 by Valentino Whiting, RNOutcome: Progressing as expectedGoal: Adequate to move to next level of care04/23/20231732 by Valentino Whiting, RNOutcome: Adequate for lpzhusoac72/29/2023 173 by Valentino Whiting RNOutcome: Adequate for /29/2023 105 by Valentino Whiting, RNOutcome: Progressing as expectedProblem: PainGoal: Control of pain at or below patient's documented comfort goal04/23/20231732 by Valentino Whiting, RNOutcome: Adequate for rgiahkoto90/29/2023 173 by Valentino Whiting, RNOutcome: Adequate for /29/2023 105 by Valentino Whiting, RNOutcome: Progressing as expectedGoal: Reduction in pain lwuwltpvn99/29/20231732 by Valentino Whiting, RNOutcome: Adequate for pswazlsdp55/29/2023 173 by Valentino Whiting, RNOutcome: Adequate for ewsyetdva18/29/2023 105 by Valentino Whiting, RNOutcome: Progressing as expectedProblem: Tissue Perfusion, Cardiopulmonary - AlteredGoal: Circulatory function within specified yieunaunva71/29/20231732 by Valentino Whiting, RNOutcome: Adequate for gcswicuiv67/29/2023 1732 by Valentino Whiting, RNOutcome: Adequate for snlkanjgc88/29/2023 1051 by Valentino Whiting RNOutcome: Progressing as expectedProblem: Mental Status - ImpairedGoal: Able to achieve maximum level of cognitive xkrlcpz9104/23/2023 173 by Valentino Whiting RNOutcome: Adequate for vpdkajpum08/29/2023 173 by Valentino Whiting RNOutcome: Adequate for tvxndhrce83/29/2023 1051 by Valentino Whiting RNOutcome: Progressing as expected 89770-6Irut of care jxjkON2553-85-30B94:33:50Plan of care noteTXT1.2.840.905557.1.13.104.2.7.2.783327|19 [id number] for patient lcxq11972-4KkmgFVGYUCCFXJNMxihxtmgx C-CDA narrative fcqe148323123Dupvxq C Eaves RN[address] [id number] VIPIUFEKWOVG3728-80-78H52:33:501.2.840.433347. 1.72.3.15|1.2.840.835155.1.13.104.2.7.2.694013 _[id number] Valentino Whiting [facility] 2023-04-23 17:33:03 4885-85-91Y51:33:03Formatting of this no te might be different from the original.Problem: Glucose controlGoal: Glucose level within specified pwavlxrttr18/29/2023 173 by Valentino Whiting RNOutcome: Adequate for jnbpotcny20/29/2023 1051 by Valentino Whiting RNOutcome: Progressing as expectedProblem: Discharge PlanningGoal: Adequate for ybunujkze08/29/2023 173 by Valentino Whiting RNOutcome: Adequate for xbgakzdhr47/29/2023 1051 by Valentino Whiting RNOutcome: Progressing as expectedGoal: Adequate to move to next level of care04/23/2023 1732 by Eaves, Valentino C, RNOutcome: Adequate for /29/2023 1051 by Valentino Whiting RNOutcome: Progressing as expectedProblem: PainGoal: Control of pain at or below patient's documented comfort goal04/23/2023 1732 by Valentino Whiting RNOutcome: Adequate for /29/2023 1051 by Valentino Whiting RNOutcome: Progressing as expectedGoal: Reduction in pain cvaqhbhcd61/29/2023 1732 by Valentino Whiting RNOutcome: Adequate for epdksbamw45/29/2023 1051 by Valentino Whiting RNOutcome: Progressing as expectedProblem: Tissue Perfusion, Cardiopulmonary - AlteredGoal: Circulatory function within specified cowunbkgmb49/29/2023 1732 by Valentino Whiting RNOutcome: Adequate for ggtebonxe93/29/2023 1051 by Valentino Whiting RNOutcome: Progressing as expectedProblem: Mental Status - ImpairedGoal: Able to achieve maximum level of cognitive hzrjvja8704/23/2023 1732 by Valentino Whiting RNOutcome: Adequate for tbpuyumlz53/29/2023 1051 by Valentino Whiting RNOutcome: Progressing as expected 09420-4Cdhi of care phuqAQ8597-86-58J82:33:13Plan of care noteTXT1.2.840.356525.1.13.104.2.7.2.243546|19 [id number] for patient evoj09355-5ToddMSEWJVHXQNWNglnwrtfs C-CDA narrative text[address] Ia[id number] MIILJTQPJISI7747-97-01U49:33:131.2.840.774525. 1.72.3.15|1.2.840.192902.1.13.104.2.7.2.636834 _[id number] [facility] 2023-04-23 10:51:50 5499-63-42M91:51:50Formatting of this no te might be different from the original.Problem: Glucose controlGoal: Glucose level within specified parametersOutcome: Progressing as expectedProblem: Discharge PlanningGoal: Adequate for dischargeOutcome: Progressing as expectedGoal: Adequate to move to next level of careOutcome: Progressing as expectedProblem: PainGoal: Control of pain at or below patient's documented comfort goalOutcome: Progressing as expectedGoal: Reduction in pain sensationOutcome: Progressing as expectedProblem: Tissue Perfusion, Cardiopulmonary - AlteredGoal: Circulatory function within specified parametersOutcome: Progressing as expectedProblem: Mental Status - ImpairedGoal: Able to achieve maximum level of cognitive abilityOutcome: Progressing as expected 22427-3Jjkp of care lpmrYC2246-39-09G95:52:01Plan of care noteTXT1.2.840.754204.1.13.104.2.7.2.762122|19 [id number] for patient ooeh84077-2XefsBDURJZOOQTPWyrdsfngp C-CDA narrative text[address] PxfjWwuvwmtnrMqqzpebgjRLSG8310316311PFDVFTTNAM TMTINHGQEAGV6566-24-28K86:52:011.2.840.393889. 1.72.3.15|1.2.840.842310.1.13.104.2.7.2.348962 _[id number] [facility] 2023-04-23 00:56:44 9998-20-00F86:56:44Formatting of this no te might be different from the original.Problem: Mental Status - ImpairedGoal: Able to achieve maximum level of cognitive abilityOutcome: Progressing as expected 42482-5Bydd of care rojgIE9684-53-58L55:56:51Plan of care noteTXT1.2.840.842688.1.13.104.2.7.2.536152|19 [id number] for patient bhju88947-5XonzGEBOTMLKEGIQtcnlrtwc C-CDA narrative text[id number] BARNESTRSSRAYWNBXY1577-27-72L83:56:511.2.840.230935. 1.72.3.15|1.2.840.964753.1.13.104.2.7.2.571019 _[id number] [facility] 2023-04-23 00:52:07 8743-97-35O18:52:07Formatting of this no te might be different from the original.Problem: Glucose controlGoal: Glucose level within specified parametersOutcome: Progressing as expectedProblem: Discharge PlanningGoal: Adequate for dischargeOutcome: Progressing as expectedGoal: Adequate to move to next level of careOutcome: Progressing as expectedProblem: PainGoal: Control of pain at or below patient's documented comfort goalOutcome: Progressing as expectedGoal: Reduction in pain sensationOutcome: Progressing as expectedProblem: Tissue Perfusion, Cardiopulmonary - AlteredGoal: Circulatory function within specified parametersOutcome: Progressing as expected 16921-2Jlsp of care ywheKM1138-14-70R20:52:10Plan of care noteTXT1.2.840.135404.1.13.104.2.7.2.596746|19 [id number] for patient cnam64309-3UngqYXADBORPKPHByijqkeuk C-CDA narrative [id number] BARNESQMYGWYXVTYER0575-47-11K74:52:101.2.840.498002. 1.72.3.15|1.2.840.311598.1.13.104.2.7.2.019174 _[id number] [facility] 2023-04-22 08:03:00 4206-92-52I93:03:00Formatting of this no te might be different from the original.Problem: Glucose controlGoal: Glucose level within specified parametersOutcome: Progressing as expectedProblem: Discharge PlanningGoal: Adequate for dischargeOutcome: Progressing as expectedGoal: Adequate to move to next level of careOutcome: Progressing as expectedProblem: PainGoal: Control of pain at or below patient's documented comfort goalOutcome: Progressing as expectedGoal: Reduction in pain sensationOutcome: Progressing as expectedProblem: Tissue Perfusion, Cardiopulmonary - AlteredGoal: Circulatory function within specified parametersOutcome: Progressing as expected 73452-6Dmyo of care grujAI6467-43-31B83:25:35Plan of care noteTXT1.2.840.374453.1.13.104.2.7.2.845805|19 76442889CWWecqdzegk for patient wmhw25448-4YnsuNEVESCOCACVPheveswma C-CDA narrative textUT[address] RiztZjssnjcarHyjgtufnqMGJG3447385981JIWNVQLNED QSRVSKDUSEVZ7281-45-14X57:25:351.2.840.838590. 1.72.3.15|1.2.840.489035.1.13.104.2.7.2.343323 _[id number] [facility] 2023-04-20 23:38:56 4353-03-52Y89:38:56Formatting of this no te might be different from the original.Problem: Glucose controlGoal: Glucose level within specified parametersOutcome: Progressing as expectedProblem: Discharge PlanningGoal: Adequate for dischargeOutcome: Progressing as expectedGoal: Adequate to move to next level of careOutcome: Progressing as expectedProblem: PainGoal: Control of pain at or below patient's documented comfort goalOutcome: Progressing as expectedGoal: Reduction in pain sensationOutcome: Progressing as expectedProblem: Tissue Perfusion, Cardiopulmonary - AlteredGoal: Circulatory function within specified parametersOutcome: Progressing as expected 14175-9Bhrh of care elkbIG7584-46-89M00:38:59Plan of care noteTXT1.2.840.634942.1.13.104.2.7.2.436038|19 [id number] for patient ueyl58866-5XezdIQJIXYBEUPNYhlpydizi C-CDA narrative textUT[address] [id number] XKPCMXIREATT1742-93-35Q49:38:591.2.840.264823. 1.72.3.15|1.2.840.809593.1.13.104.2.7.2.374267 _[id number] [facility] 2023-04-20 21:49:51 8328-30-49P38:49:51Formatting of this no te might be different from the original.Patient admitted to [facility] ROOM 923 for diagnosis of WEAKNESS, NSTEMI, HYPERGLYCEMIAPatient agrees to admission, discussed plan of care with patient.Patient is awake, alert, oriented, resp reg unlabored, color appropriate for race, PIV intactNo adverse reaction to medications administered while in EDBelongings with patient to unitReport to MARIE RNREPORT GIVEN TO [facility], PT LOADED TO BE TRANSFERRED. HEPARIN INFUSING AT 700 UNITS/ HOUR. 77229-6Pblnshchy department RgegDY3190-21-70A66:51:39Emergen department NoteTXT1.2.840.879009.1.13.104.2.7.2.380295|19 [id number] for patient jubz73689-6AgqpELOOZOPNIHRMqqkmgpya C-CDA narrative [id number] Vargas RNUT[id number] SWQFQEIEJRCQ2074-99-71C82:51:391.2.840.320972. 1.72.3.15|1.2.840.552329.1.13.104.2.7.2.743685 _[id number] Jaelyn Vargas RN [facility] 2023-04-20 21:38:11 7921-82-30U12:38:11Formatting of this no te might be different from the original.Report called to [facility], spoke with Marie VILLAGRAN.Pt awaiting EMS transfer. 80794-6Garkcuuco department RcwwRF6753-12-25E39:38:44Emerrivendell behavioral health services department NoteTXT1.2.840.945808.1.13.104.2.7.2.454718|19 [id number] for patient srqz57323-4PumiZVZZQUZPOKHOddbdflpt C-CDA narrative text[id number] KBEVFUWHCPKZ8048-66-66O57:38:441.2.840.655536. 1.72.3.15|1.2.840.585492.1.13.104.2.7.2.888768 _[id number] [facility] [facility] 2023-04-20 20:59:06 1085-46-56D23:59:06Formatting of this no te might be different from the original.[facility] E[facility] 45 MIN per [place] 70419-5Yhgjzpsbv department DyouXK4508-86-84R06:04:08[facility] [id number]|19 [id number] for patient mmmw15336-6SfpmZSCFACHAKMOIvcvtvjmm C-CDA narrative [id number] [place] [address] Wo[id number] YMWCCCKOWDKN3708-97-29N83:04:081.2.840.901581. 1.72.3.15|1.2.840.230873.1.13.104.2.7.2.609020 _[id number] Yoon Shukla Magan [facility] 2023-04-20 20:54:15 1928-12-30M33:54:15Associated Order(s): Critical Care Critical CarePerformed by: Sergio Aponte MDAuthorized by: Sergio Aponte [facility] OKLAHOMA CITYritical care provider statement:Critical care time (minutes): 45Critical care time was exclusive of: Separately billable procedures and treating other patients and teaching timeCritical care was necessary to treat or prevent imminent or life-threatening deterioration of the following conditions: Cardiac failureCritical care was time spent personally by me on the following activities: Development of treatment plan with patient or surrogate, evaluation of patient's response to treatment, examination of patient, obtaining history from patient or surrogate, ordering and performing treatments and interventions, ordering and review of laboratory studies, ordering and review of radiographic studies, pulse oximetry, re-evaluation of patient's condition and review of old chartsCare discussed with: admitting providerComments:Due to a high probability of clinically significant, life threatening deterioration, the patient required my highest level of preparedness to intervene emergently and I personally spent this critical care time directly and personally managing the patient. This critical care time included obtaining a history; examining the patient; pulse oximetry; ordering and review of studies; arranging urgent treatment with development of a management plan; evaluation of patient's response to treatment; frequent reassessment; and, discussions with other providers.This critical care time was performed to assess and manage the high probability of imminent, life-threatening deterioration that could result in multi-organ failure. It was exclusive of separately billable procedures and treating other patients. 31269-3Phzzscjzu department ImygGS1660-34-35R05:54:15[facility] NoteTXT1.2.840.877149.1.13.104.2.7.2.610899|19 [id number] for patient uqsr93235-4WkraKHWMCUQPPIGXkrqnokgb C-CDA narrative Synacor[address] Stewart [id number] TINOCONDOOJGNDZCPG6723-05-15U71:54:151.2.840.936340. 1.72.3.15|1.2.840.133641.1.13.104.2.7.2.849765 _[id number] [facility] 2023-04-20 20:00:00 3703-89-66X45:00:00Formatting of this no te might be different from the original.Patient aware of UA sample needed. Unable to provide sample at this moment. Urinal at bedside. Call light within reach. 55409-8Vgwmxrwld department LkamUK8330-44-59J30:03:40[facility] NoteTXT1.2.840.334273.1.13.104.2.7.2.470604|19 [id number] for patient otzz62822-4QxboLXZKGCFYHCSNycrmdtwc C-CDA narrative Syn[facility] [id number] LIONWSQNVMDKWTHP7589-11-30Q76:03:401.2.840.754566. 1.72.3.15|1.2.840.919176.1.13.104.2.7.2.894962 _[id number] [facility] 2023-04-20 19:50:08 3778-10-69X70:50:08Formatting of this no te might be different from the original.Patient arrived to ED via [facility] c/o "not feeling well." FSBG 386 [employer]. Per patient he was diagnosed with DM five years ago and stopped taking home meds-Metformin about three years ago. Patient c/o of being weak and increased UOP. Patient was nauseous CIGARETTE EXAMINER but has resolved since. 21823-2Uvmlimrci department Triage hkplKS9931-72-99E32:52:56[facility] Triage noteTXT1.2.840.159991.1.13.104.2.7.2.505034|19 [id number] for patient ixrr50912-7Lncygspfo department NoteLNNARRATIVEFormatted C-CDA narrative [address] Ff[id number] MRFWQMYYFZII6440-37-68G24:52:561.2.840.081262. 1.72.3.15|1.2.840.381011.1.13.104.2.7.2.586780 _[id number] [facility] 2023-04-20 19:43:00 2733-50-78W28:43:00Formatting of this no te is different from the original.[facility] Shel[facility] of : 1965 57 year oldMRN: [id number] Room:Room/bed info not foundPrimary Care Physician: No primary care provider on file.Pre- HospitalPatient Escorted by: Self [9]Mode of Arrival: EMS - [facility] [43]EMS Treatment Prior to ED Arrival:CIGARETTE EXAMINER treatment: Saline lock;IVFED EventsDate/Time Event User Okfqijht03/26/231943 Medical Screening Begins SERGIO APONTE MD --04/20/231943 First Provider Evaluation SERGIO APONTE MD --Chief ComplaintChief ComplaintPatient presents withHigh Blood SugarED Triage Megan Dc RN 04/20/2023 19:52Patient arrived to ED via [facility] c/o "not feeling well." FSBG 386 [employer]ER. Per patient he was diagnosed with DM five years ago and stopped taking home meds-Metformin about three years ago. Patient c/o of being weak and increased UOP. Patient was nauseous CIGARETTE EXAMINER but has resolved since.HPIHistory provided by: PatientWeaknessLocation: GeneralizedSeverity: ModerateOnset quality: GradualTiming: ConstantChronicity: NewRelieved by: NothingWorsened by: NothingAssociated symptoms: no abdominal pain, no chest pain, no cough, no fatigue, no fever, no headaches, no nausea, no shortness of breath, no vomiting and no wheezingPast Medical History / ImmunizationsPast Medical History:Diagnosis DateHTN (hypertension)Uncontrolled diabetes mellitus with hyperglycemiaTetanus received in last 5 years: UnknownPast Surgical HistoryHistory reviewed. No pertinent surgical history.AllergiesNo Known AllergiesSocial HistoryTobacco UseSmokeless Tobacco: Never used smokeless tobacco.Alcohol UseNever.Drug UseNever.Review of SystemsReview of SystemsConstitutional: Negative. Negative for chills, fatigue, fever and unexpected weight change.HENT: Negative.Eyes: Negative. Negative for discharge and itching.Respiratory: Negative. Negative for cough, chest tightness, shortness of breath and wheezing.Cardiovascular: Negative. Negative for chest pain and palpitations.Gastrointestinal: Negative. Negative for abdominal distention, abdominal pain, nausea and vomiting.Genitourinary: Negative. Negative for dysuria, urgency, frequency and flank pain.Musculoskeletal: Negative.Skin: Negative. Negative for color change, pallor and wound.Neurological: Negative for dizziness, syncope, light-headedness and headaches.Psychiatric/Behavioral: Negative. Negative for agitation and behavioral problems.All other systems reviewed and are negative.Endocrine: Endocrine negativePhysical ExamED Triage Vitals [04/20/231952]Weight 59 kg (130 lb)Actual or estimated Estimated by patient/family reportHeight 1.6 m (5' 3")BP 106/69Pulse 102Resp 23Temp 37.3 ?C (99.1 ?F)Temp source OralSpO2 99 %Measured on Room airPhysical ExamVitals reviewed.Constitutional:Appearance: He is well-developed.HENT:Head: Normocephalic and atraumatic.Nose: Nose normal.Eyes:Conjunctiva/sclera: Conjunctivae normal.Neck:Trachea: No tracheal deviation.Cardiovascular:Rate and Rhythm: Normal rate and regular rhythm.Heart sounds: Normal heart sounds. No murmur heard.No friction rub.Pulmonary:Effort: Pulmonary effort is normal. No respiratory distress.Breath sounds: Normal breath sounds. No stridor. No wheezing or rales.Abdominal:General: Bowel sounds are normal. There is no distension.Palpations: Abdomen is soft.Tenderness: There is no abdominal tenderness. There is no guarding or rebound.Musculoskeletal:General: Normal range of motion.Cervical back: Normal range of motion and neck supple.Skin:General: Skin is warm and dry.Neurological:Mental Status: He is alert and oriented to person, place, and time.Cranial Nerves: No cranial nerve deficit.Sensory: No sensory deficit.Psychiatric:Behavior: Behavior normal.LabsLab ResultsCBC WITH DIFF - AbnormalResult Value Ref RangeWBC 11.74 (*) 4.20 - 10.70 10*3/?LRBC 3.94 (*) 4.26 - 5.52 10*6/?LHGB 12.3 12.2 - 16.4 g/dLHCT 33.8 (*) 38.4 - 49.3 %MCV 85.8 81.7 - 95.6 fLMCH 31.2 26.1 - 32.7 pgMCHC 36.4 (*) 31.2 - 35.0 g/dLRDW-SD 36.2 (*) 38.5 - 51.6 fLRDW-CV 11.6 (*) 12.1 - 15.4 %PLT 178 150 - 328 10*3/?LMPV 10.9 9.8 - 13.0 fLNRBC/100 WBC 0.0 0.0 - 10.0 /100 WBCsNRBC x10^3 <0.01 10*3/?LGRAN MAT (NEUT) % 81.3 %IMM GRAN % 0.30 %LYMPH % 10.5 %MONO % 7.6 %EOS % 0.1 %BASO % 0.2 %GRAN MAT x10^3(ANC) 9.55 (*) 1.99 - 6.95 10*3/uLIMM GRAN x10^3 0.04 0.00 - 0.06 10*3/uLLYMPH x10^3 1.23 1.09 - 3.23 10*3/uLMONO x10^3 0.89 0.36 - 1.02 10*3/uLEOS x10^3 <0.03 (*) 0.06 - 0.53 10*3/uLBASO x10^3 <0.03 0.01 - 0.09 10*3/uLCOMP. METABOLIC PANEL (15186) - AbnormalNA 129 (*) 135 - 145 mmol/LK 3.5 3.5 - 5.0 mmol/LCL 94 (*) 98 - 108 mmol/LCO2 TOTAL 28 23 - 31 mmol/LAGAP 7 2 - 16BUN 26 (*) 7 - 23 mg/dLGLUCOSE 314 (*) 70 - 110 mg/dLCREATININE 0.92 0.60 - 1.25 mg/dLTOTAL BILI 0.8 0.1 - 1.1 mg/dLCALCIUM 8.5 (*) 8.6 - 10.6 mg/Maulik PROTEIN 6.0 (*) 6.3 - 8.2 g/dLALBUMIN 3.3 (*) 3.5 - 5.0 g/dLALK PHOS 95 34 - 122 U/LALTv 23 5 - 50 U/LAST(SGOT) 30 13 - 40 U/LeGFR 98.2 mL/min/1.03o9VZBLOZOSLX - AbnormalAPPEARANCE Clear ClearCOLOR Yellow YellowPH 6.0 4.8 - 8.0SP GRAVITY 1.013 1.003 - 1.030GLU U QUAL 500 mg/dL (*) NormalBLOOD Negative NegativeKETONES 5 mg/dL (*) NegativePROTEIN 30 mg/dL (*) NegativeUROBILIN Normal NormalBILIRUBIN Negative NegativeNITRITE Negative NegativeLEUK MANAS Negative NegativeRBC/HPF <1 0 - 3 HPFWBC/HPF 1 0 - 5 HPFBACTERIA Negative NegativePOCT GLUCOSE (AUTOMATED) - AbnormalPOCT GLU 408 (*) 70 - 110 mg/dLTROPONIN I - AbnormalTROPONIN I 0.154 (*) <=0.034 ng/mLURINE DRUG (IMMUNOASSAY) - COMPREHENSIVE DRUG SCREEN W/O REFLEX - NormalAMPHET Negative NegativeBARB U Negative NegativeBENZO U Negative NegativeCocaine Metabolite Negative NegativeMETHADONE Negative NegativeOPIATES Negative NegativePCP Negative NegativeTHC Negative NegativePROTHROMBIN TIME / INR - NormalPROTIME PATIENT 13.0 12.0 - 14.7 SecondsINR 1.0ACTIVATED PARTIAL THRMPLAS JERMAINE - NormalAPTT Patient 31 23 - 38 SecondsETHANOLALCOHOL <10 mg/dLImagingNo orders to displayOrders and TreatmentsOrders Placed This EncounterProceduresCritical CareXR CHEST 1 VWCBC WITH DIFFCOMP. METABOLIC PANEL (13298)URINALYSISURINE DRUG (IMMUNOASSAY) - COMPREHENSIVE DRUG SCREEN W/O REFLEXETHANOLPOCT GLUCOSE (AUTOMATED)Troponin IProthrombin Time / INRaPTTaPTT (for use with Heparin Infusion)Ferritin SerumIron PanelTroponin IThyroid Stimulating HormoneGlycosylated Hemoglobin (A1C)PhosphorusCbc with DiffBasic Metabolic Panel (NA, K, CL, CO2, GLUCOSE, BUN, CREATININE, CA)MagnesiumLipid Panel (22482)(Total Cholesterol, Triglycerides, HDL)O2 Per ProtocolOrders Placed This EncounterMedicationsDISCONTD: aspirin tablet 325 mgHEPARIN SODIUM (PORCINE) 1,000 UNIT/ML BOLUS ACS ORDER SETheparin (1,000 unit/mL, 10 mL vial) for Rebolusingheparin 25,000 Units/250 mL (Premixed Bag) in 0.45 % NSclopidogreL (PLAVIX) 300 mg tablet 300 mgNaCl 0.9% (NS) bolus infusion 1,000 mLacetaminophen (TYLENOL) tablet 650 mgaspirin tablet 325 mgatorvastatin (LIPITOR) tablet 80 mgProceduresEKGTime 1951Sinus tachAxis normalIntervals normalNo acute ischemiaNotes & MDMPatient was evaluated for an emergency medical condition related to High Blood SugarDDXHyperglycemiaDehydrationSubstance useDiagnosis/Impression as of 04/21/23 0024WeaknessNSTEMI (non-ST elevated myocardial infarction)HyperglycemiaMedical Decision MakingProblems Addressed:Hyperglycemia: acute illness or injuryNSTEMI (non-ST elevated myocardial infarction): acute illness or injuryWeakness: acute illness or injuryAmount and/or Complexity of Data ReviewedLabs: ordered. Decision-making details documented in ED Course.Radiology: ordered and independent interpretation performed. Decision-making details documented in ED Course.ECG/medicine tests: ordered and independent interpretation performed. Decision-making details documented in ED Course.RiskPrescription drug management.Limitations to patient care and compliance: none.Assessment/Summary:The patient is a 57-year-old male with a history of diabetes who has been noncompliant with the medication presents with generalized weakness. He has no other symptoms. Workup demonstrates that he is having a silent AR. He has elevated troponin of 0.154. Please note he does not have any chest pain or shortness of breath. EKG does not demonstrate a STEMI. He was started on heparin, Plavix, and aspirin. The patient may require cardiac catheterization. The patient was transferred to [place] for further evaluation.History, physical exam findings, results of visit, differential diagnosis, medication regimens and plan of future care have been considered. Additional MDM may be found in the ED course. Differential diagnosis considered and final disposition made based on information gathered during evaluation and may not be completely ruled out or specifically listed. Vital signs were rechecked before final disposition.DiagnosisFinal diagnoses:[R53.1] Weakness (Primary)[I21.4] NSTEMI (non-ST elevated myocardial infarction)[R73.9] HyperglycemiaDisposition & Follow UpED DispositionED DispositionTransfer - [facility] to IP/ObsCondition--Comment--There are no discharge medications for this patient.Sergio Aponte Jr. MDClinical Electrical Line Worker [facility] Emergency DepartmentDragon Dictation Software is used frequently and may produce errors. Promptly contact for obvious discrepancies.Sergio Aponte MD04/21/23 0025 23435-8Tpmjrgpkq Emergency department ScwjMJ0902-95-92Y73:25:46[facility] Emergency department NoteTXT1.2.840.[id number]|19 [id number] for patient lqyt57998-0Aynqrywro department NoteLNNARRATIVEFormatted C-CDA narrative textEMCARE EMERGENCY PHYSICIAN STAFFEMCARE EMERGENCY PHYSICIAN STAFFUT[address] Ts[id number] ECUAQSDPJCFR5956-86-69G14:25:461.2.840.291521. 1.72.3.15|1.2.840.823269.1.13.104.2.7.2.505762 _[id number] [facility] EMERGENCY PHYSICIAN STAFF [facility]
--- NOTE | 2023-10-11 11:39 | ER ---
Nurse's Notes [facility] Name: Johnnie Maldonado Age: 58 yrs Sex: Male : 1965 Arrival Date: 10/11/2023 Time: 11:23 Bed 12 Private MD: Diagnosis: Other retention of urine Presentation: 10/10 11:32 Chief complaint: Patient states: "I was in here a few weeks ago and I got a catheter aa5 and I was hoping I can get it out today". 11:32 Coronavirus screen: At this time, the client does not indicate any symptoms associated aa5 with coronavirus-19. Ebola Screen: Patient denies travel to an Ebola-affected area in the 21 days before illness onset. Initial Sepsis Screen: Does the patient meet any 2 criteria? No. Patient's initial sepsis screen is negative. Does the patient have a suspected source of infection? No. Patient's initial sepsis screen is negative. Risk Assessment: Do you want to hurt yourself or someone else? Patient reports no desire to harm self or others. Onset of symptoms was October 11, 2023. 11:32 Method Of Arrival: Ambulatory aa5 11:32 Acuity: DONTE 4 aa5 Historical: - Allergies: 11:35 No Known Allergies; aa5 - PMHx: 11:34 diabetes mellitus; Urinary incontinence; aa5 - Immunization history:: Adult Immunizations unknown. - Infectious Disease History:: Denies. - Social history:: Smoking status: Patient denies any tobacco usage or history of. Screenin:40 [facility] ED Fall Risk Assessment (Adult) History of falling in the last 3 months, aa5 including since admission No falls in past 3 months (0 pts) Confusion or Disorientation No (0 pts) Intoxicated or Sedated No (0 pts) Impaired Gait No (0 pts) Mobility Assist Device Used No (0 pt) Altered Elimination No (0 pt) Score/Fall Risk Level 0 - 2 = Low Risk Oriented to surroundings, Maintained a safe environment, Educated pt \\T\\ family on fall prevention, incl call for assistance when getting out of bed. Abuse screen: Denies threats or abuse. Nutritional screening: No deficits noted. Tuberculosis screening: No symptoms or risk factors identified. Assessment: 11:32 General: Appears comfortable, Behavior is calm, cooperative. Pain: Denies pain. Neuro: aa5 Level of Consciousness is awake, alert, obeys commands, Oriented to person, place, time, situation. Cardiovascular: Patient's skin is warm and dry. Respiratory: Airway is patent Respiratory effort is even, unlabored, Respiratory pattern is regular, symmetrical. GI: No signs and/or symptoms were reported involving the gastrointestinal system. Patient currently denies abdominal pain, diarrhea, nausea, vomiting. : Bae in place to gravity drainage. EENT: No signs and/or symptoms were reported regarding the EENT system. Derm: Skin is pink, warm \\T\\ dry. Musculoskeletal: Range of motion: intact in all extremities. Vital Signs: 11:32 BP 126 / 88; Pulse 87; Resp 18 S; Temp 97.5(TE); Pulse Ox 98% on R/A; Weight 54.43 kg aa5 (R); Height 5 ft. 3 in. (R); 11:32 Body Mass Index 21.26 (54.43 kg, 160.02 cm) aa5 ED Course: 11:25 Patient arrived in ED. mr 11:25 Adolfo Ford MD is Attending Physician. ec2 11:32 Arm band placed on. aa5 11:32 Patient has correct armband on for positive identification. Bed in low position. Call aa5 light in reach. Side rails up X 1. 11:34 Triage completed. aa5 11:39 Markos Mendoza MD is Referral Physician. ec2 11:39 Idalmis Fisher, TYSHAWN is Primary Nurse. aa5 11:39 Bae cath removed intact, balloon deflated. aa5 11:44 Provided Education on: follow up with urology . as6 11:44 No provider procedures requiring assistance completed. Patient did not have IV access as6 during this emergency room visit. Administered Medications: No medications were administered Medication: 11:40 VIS not applicable for this client. aa5 Outcome: 11:39 Discharge ordered by . ec2 11:44 Discharged to home ambulatory, as6 11:44 Condition: stable 11:44 Discharge instructions given to patient, Instructed on discharge instructions, follow up and referral plans. Demonstrated understanding of instructions, follow-up care, 11:44 Patient left the ED. as6 Signatures: Rosalie Renner, Reg Reg mr Idalmis Fisher, RN RN aa5 Avi Lowe RN RN as6 Adolfo Ford MD MD ec2 Corrections: (The following items were deleted from the chart) 11:35 11:34 Arm band placed on aa5 aa5
--- NOTE | 2023-10-11 11:40 | EDPHYS ---
Physician Documentation [facility] Name: Johnnie Maldonado Age: 58 yrs Sex: Male : 1965 Arrival Date: 10/11/2023 Time: 11:23 Bed 12 Private MD: ED Physician Adolfo Ford HPI: 10/10 11:36 This 58 yrs old Male presents to ER via Ambulatory with complaints of Problem ec2 With Urinary Catheter. 11:36 Patient arrives today for evaluation of a Jensen catheter. States that he was recently ec2 hospitalized, had a Jensen catheter in place, instructed to follow-up with urology to have this removed however he has been unable to and cannot follow-up with urology. Reports no issues with the catheter otherwise. Denies any fevers or chills, no nausea or vomiting. Denies abdominal pain. Reports catheters been draining adequately.. Historical: - Allergies: 11:35 No Known Allergies; aa5 - PMHx: 11:34 diabetes mellitus; Urinary incontinence; aa5 - Immunization history:: Adult Immunizations unknown. - Infectious Disease History:: Denies. - Social history:: Smoking status: Patient denies any tobacco usage or history of. ROS: 11:36 Constitutional: as per hpi ec2 Exam: 11:36 Constitutional: GEN: NAD Head: atraumatic Eyes: EOMI Ears: External ears are ec2 normal. CV: regular rate LUNGS: no respiratory distress ABD: non-distended SKIN: no evidence of rashes MSK: no evidence of trauma NEURO: moves all extremities equally Vital Signs: 11:32 BP 126 / 88; Pulse 87; Resp 18 S; Temp 97.5(TE); Pulse Ox 98% on R/A; Weight 54.43 kg aa5 (R); Height 5 ft. 3 in. (R); 11:32 Body Mass Index 21.26 (54.43 kg, 160.02 cm) aa5 MDM: 11:35 Patient medically screened. ec2 11:36 Data reviewed: vital signs. ED course: Patient arrives today for evaluation of his ec2 Jensen catheter. Examination remarkable well-appearing nontoxic in which was otherwise in no acute distress. I discussed the risk and benefits of removal of the Jensen catheter, including return of patient's urinary retention. I instructed him there is a high likelihood that he becomes obstructed again and needs another catheter. He expressed understanding, I agree that we can trial removal of the catheter. I instructed him this would best be done with urology however we can trial this in the ED. . 10/10 11:36 Order name: Alma. Order: remove jensen catheter; Complete Time: 11:38 ec2 Administered Medications: No medications were administered Disposition Summary: 10/11/23 11:39 Discharge Ordered Notes: Location: Home ec2 Condition: Stable ec2 Diagnosis - Other retention of urine ec2 Followup: ec2 - With: Private Physician - When: - Reason: Re-evaluation by your physician Followup: ec2 - With: Markos Mendoza MD - When: - Reason: Recheck today's complaints Forms: - Medication Reconciliation Form ec2 - Antibiotic Education ec2 - Prescription Opioid Use ec2 - Patient Portal Instructions ec2 - Leadership Thank You Letter ec2 Signatures: Idalmis Fisher RN RN aa5 Adolfo Ford MD MD ec2
[2023-10-11 11:53] VITALS: BP 126/88; TEMP 97.5; O2SAT 98
== END 2023-10-11 11:44 | disposition home or self-care (01) ==
LOC: ER 11:23
DX: R33.8 Other retention of urine (principal)
CPT/HCPCS: 99282

== ENCOUNTER 2023-10-14 10:04 | Inpatient (IN) | payer MEDICAID, SELFPAY ==
--- OUTSIDE RECORDS SUMMARY | 2023-10-14 10:11 | XMS REPORT | Continuity of Care Document ---
Author Name Unknown Address [address] [facility] [address] [place] [address] [facility] thconnect Address [address] [facility]. [address] [place] [address] Care Team Providers Care Vice President Process Name Role Phone Erik Louie Jr. Primary Care Physician + [phone] Cosme Cardona DO Attending Clinician [phone] Solo CHONG, Lyubov Hilton Attending Clinician [phone] Rosalie Irizarry RN Attending Clinician [phone] Miguel CHONG, Ricky K.H. Attending Clinician + [phone] Umang Reynaga MD Attending Clinician [phone] Jerry Fields DO Attending Clinician [phone] Vimal Quiñones MD Attending Clinician [phone] Jeannette Dawn LVN Attending Clinician + [phone] PARVEZ MONROE Attending Clinician Unavailable Sergio Aponte MD Attending Clinician [phone] Bret Banda MD Attending Clinician [phone] Parvez Monroe MD Attending Clinician [phone] Solo CHONG, Lyubov Hilton Admitting Clinician [phone] Jerry Fields DO Admitting Clinician [phone] PARVEZ MONROE Admitting Clinician Unavailable Parvez Monroe MD Admitting Clinician Problems Condition Name Condition Details Condition Category Status Onset Date Resolution Date Last Treatment Date Treating Clinician Comments Source Elevated troponin I level Elevated troponin I level Disease Active 08-14 00:00: 00 [facility] Elevated brain natriureti c peptide (BNP) level Elevated brain natriureti c peptide (BNP) level Disease Active 08-14 00:00: 00 [facility] Essential hypertensi on Essential hypertensi on Disease Active 08-14 00:00: 00 [facility] ELIEZER (acute kidney injury) ELIEZER (acute kidney injury) Disease Active 08-14 00:00: 00 [facility] Type 2 diabetes mellitus with other specified complicati on Type 2 diabetes mellitus with other specified complicati on Disease Active 08-14 00:00: 00 [facility] Hypertensi on, unspecifie d type Hypertensi on, unspecifie d type Disease Active 08-13 00:00: 00 [facility] NSTEMI (non-ST elevated myocardial infarction ) NSTEMI (non-ST elevated myocardial infarction ) Disease Active 2022-04 00:00: 00 [facility] Allergies, Adverse Reactions, Alerts Allergy Name Allergy Type Status Severity Reaction(s) Onset Date Inactive Date Treating Clinician Comments Source NO KNOWN ALLERGIE S Drug Class Active [facility] Social History Social Habit Start Date Stop Date Quantity Comments [facility] 2023-08-23 00:00:00 2023-08-23 00:00:00 [facility] Alcohol intake 2023-08-22 00:00:00 2023-08-22 00:00:00 Lifetime non-drinker (finding) [facility] Tobacco use and exposure 2023-04-21 00:00:00 2023-04-21 00:00:00 Smokeless tobacco non-user [facility] Sex Assigned At 1965 00:00:00 1965 00:00:00 [facility] Smoking Status Start Date Stop Date Source Never smoked tobacco [facility] Medications Ordered Medication Name Filled Medication Name Start Date Stop Date Current Medication? Ordering Clinician Indication Dosage Frequency Signature (SIG) Comments Components Source acarbose 25 mg tablet 08-23 00:00: 00 Yes [id number] 25mg Take 1 tablet by mouth in the morning and 1 tablet at noon and 1 tablet in the evening. Take with meals. [facility] metFORMIN 500 mg 24 hr tablet 08-23 00:00: 09-23 04:59 :00 Yes [id number] 500mg Take 1 tablet by mouth in the morning and 1 tablet in the evening. Take with meals. Do all this for 30 days. [facility] amLODIPine 10 mg tablet 08-23 00:00: 09-23 04:59 :00 Yes [id number] 10mg Take 1 tablet by mouth in the morning for 30 days. [facility] tamsulosin 0.4 mg 24 hr capsule 08-23 00:00: 00 09-23 04:59 :00 Yes [id number] .4mg Take 1 capsule by mouth in the morning for 30 days. [facility] levoFLOXaci n 500 mg tablet 08-23 00:00: 00 08-26 04:59 :00 Yes [id number] 500mg Take 1 tablet by mouth every 24 (twenty-fo ur) hours for 2 days. [facility] cefTRIAXone (ROCEPHIN) 1,000 mg in NaCl 0.9% [...] Urine
D uration of therapy: Once (ED) [facility] D5W IV infusion 1,000 mL 08-22 15:00: 00 08-22 16:53 :22 No 1000mL at 50 mL/hr, IV Infusion, ONCE, 1 dose, On Wed08/23/23 at 1000, Routine [facility] amLODIPine (NORVASC) tablet 5 mg 08-22 14:00: 00 Yes 5mg 5 mg, Oral, DAILY, First dose on Wed08/23/23 at 0900, Until Discontinu ed, Routine [facility] D5W 0.45% NaCl (1/2NS) IV infusion 1,000 mL 08-22 02:29: 00 08-23 17:53 :57 No 1000mL at 75 mL/hr, 1,000 mL, IV Infusion, CONTINUOUS , Starting on Wed08/22/23 at 2130, Until Wed08/24/23 at 1253, Routine [facility] D5W IV infusion 1,000 mL 08-21 21:30: 00 08-22 02:27 :22 No 1000mL at 100 mL/hr, IV Infusion, CONTINUOUS , Starting on Wed08/22/23 at 1630, Until Wed08/22/23 at 2127, Routine [facility] Sliding Scale Insulin - Lispro (HumaLOG) 08-21 21:00: 00 Yes Subcutaneo us, Q4H, First dose on Wed08/22/23 at 1600, Until Discontinu ed, Routine [facility] glucagon (GLUCAGEN DIAGNOSTIC KIT) injection 1 mg 08-21 20:17: 12 Yes 1mg 1 mg, Intramuscu lar, PRN, Starting on Wed08/22/23 at 1517, Until Discontinu ed, HAO, Blood Glucose < or = 70 mg/dL and patient is NPO, unable to swallow or has mental changes. [facility] dextrose 50 % in water (D50W) injection 25 mL 08-21 20:17: 12 Yes 25mL 25 mL, Slow IV Push, PRN, Starting on Wed08/22/23 at 1517, Until Discontinu ed, HAO, Blood Glucose < or = 70 mg/dL and patient is NPO, unable to swallow or has mental status changes. [facility] D5W IV infusion 1,000 mL 08-21 17:45: 00 08-21 20:16 :11 No 1000mL at 100 mL/hr, IV Infusion, CONTINUOUS , Starting on Wed08/22/23 at 1245, Until Wed08/22/23 at 1516, Routine [facility] tamsulosin (FLOMAX) capsule 0.4 mg 08-21 14:00: 00 Yes .4mg 0.4 mg, Oral, DAILY, First dose on Wed08/22/23 at 0900, Until Discontinu ed, Routine [facility] docusate (COLACE) capsule 100 mg 08-21 13:00: 00 Yes 100mg 100 mg, Oral, BID, First dose on Wed08/22/23 at 0800, Until Discontinu ed, Routine [facility] heparin (porcine) injection 5,000 Units 08-21 13:00: 00 Yes 5000U 5,000 Units, Subcutaneo us, Q12H, First dose on Wed08/22/23 at 0800, Until Discontinu ed, Routine [facility] D5W 0.45% NaCl (1/2NS) IV infusion 1,000 mL 08-21 06:15: 00 08-21 16:44 :38 No 1000mL at 100 mL/hr, 1,000 mL, IV Infusion, CONTINUOUS , Starting on Wed08/22/23 at 0115, Until Wed08/22/23 at 1144, Routine [facility] D5W 0.45% NaCl (1/2NS) Bolus infusion 1,000 mL 08-21 06:00: 00 08-21 06:21 :00 No 1000mL at 999 mL/hr, 1,000 mL, IV Infusion, ONCE, 1 dose, On Wed08/22/23 at 0100, Routine [facility] NaCl 0.9% (NS) bolus infusion 1,000 mL 08-21 04:15: 00 08-21 05:05 :00 No 1000mL at 999 mL/hr, 1,000 mL, IV Infusion, ONCE, 1 dose, On 08/21/23 at 2315, STAT [facility] bisacodyL (DULCOLAX) tablet 10 mg 08-21 04:02: 51 Yes 10mg 10 mg, Oral, QDAILYPRN, Starting on 08/21/23 at 2302, Until Discontinu ed, Routine, Constipati on [facility] ondansetron (ZOFRAN (PF)) injection 4 mg 08-21 04:02: 17 Yes 4mg 4 mg, Slow IV Push, Q6HPRN, Starting on 08/21/23 at 2302, Until Discontinu ed, Routine, Nausea and Vomiting (N/V) [facility] FENTanyl PF (SUBLIMAZE (PF)) injection 12.5 mcg 08-21 04:02: 09 08-22 04:01 :09 No 12.5ug 12.5 mcg, Slow IV Push, Q6HPRN, Starting on 08/21/23 at 2302, Until 08/22/23 at 2301, Routine, Pain (scale 7-10), Pain (scale 4-6) [facility] acetaminoph en (TYLENOL) tablet 650 mg 08-21 04:01: 56 Yes 650mg 650 mg, Oral, Q6HPRN, Starting on 08/21/23 at 2301, Until Discontinu ed, Routine, Pain (scale 1-3) [facility] magnesium citrate solution 296 mL 08-21 01:45: 00 08-21 01:25 :00 No 296mL 296 mL, Oral, ONCE, 1 dose, On 08/21/23 at 2045, Routine [facility] amLODIPine 5 mg tablet 08-16 00:00: 00 08-23 00:00 :00 No [id number] 5mg Take 1 tablet by mouth in the morning for 30 days. [facility] lactulose (CEPHULAC) solution 45 mL 08-15 15:45: 00 08-15 15:21 :00 No 45mL 45 mL, Oral, ONCE, 1 dose, On Wed08/16/23 at 1045, Routine [facility] amLODIPine (NORVASC) tablet 5 mg 08-15 14:00: 00 Yes 5mg 5 mg, Oral, DAILY, First dose on Wed08/16/23 at 0900, Until Discontinu ed, Routine [facility] sennosides (SENOKOT) tablet 8.6 mg 08-15 14:00: 00 Yes 8.6mg 8.6 mg, Oral, DAILY, First dose on Wed08/16/23 at 0900, Until Discontinu ed, Routine [facility] losartan (COZAAR) tablet 25 mg 08-15 14:00: 00 Yes 25mg 25 mg, Oral, DAILY, First dose (after last modificati on) on Wed08/16/23 at 0900, Until Discontinu ed, Routine [facility] docusate (COLACE) capsule 100 mg 08-15 13:00: 00 Yes 100mg 100 mg, Oral, BID, First dose on Wed08/16/23 at 0800, Until Discontinu ed, Routine [facility] lactulose (CEPHULAC) solution 30 mL 08-15 10:00: 00 08-15 09:33 :00 No 30mL 30 mL, Oral, ONCE, 1 dose, On Wed08/16/23 at 0500, Routine [facility] metFORMIN 500 mg 24 hr tablet 08-15 00:00: 00 08-23 00:00 :00 No [id number] 500mg Take 1 tablet by mouth in the morning and 1 tablet in the evening. Take with meals. Do all this for 30 days. [facility] acarbose 25 mg tablet 08-15 00:00: 00 08-23 00:00 :00 No [id number] 25mg Take 1 tablet by mouth in the morning and 1 tablet at noon and 1 tablet in the evening. Take with meals. Do all this for 30 days. [facility] pioglitazon e 15 mg tablet 08-15 00:00: 00 08-23 00:00 :00 No [id number] 15mg Take 1 tablet by mouth in the morning for 30 days. [facility] tamsulosin 0.4 mg 24 hr capsule 08-15 00:00: 00 08-23 00:00 :00 No [id number] .4mg Take 1 capsule by mouth in the morning for 30 days. [facility] losartan 25 mg tablet 08-15 00:00: 00 08-23 00:00 :00 No [id number] 25mg Take 1 tablet by mouth in the morning for 30 days. [facility] glipiZIDE (GLUCOTROL) tablet 5 mg 08-14 21:30: 00 Yes 5mg 5 mg, Oral, BIDAC, First dose on 08/15/23 at 1630, Until Discontinu ed, Routine [facility] KCL (KLOR-CON M20) tablet 40 mEq 08-14 21:30: 00 08-14 21:21 :00 No 40meq 40 mEq, Oral, ONCE, 1 dose, On 08/15/23 at 1630, Routine [facility] pioglitazon e (ACTOS) tablet 7.5 mg 08-14 17:00: 00 08-15 12:47 :51 No 7.5mg 7.5 mg, Oral, DAILY, First dose on 08/15/23 at 1200, Until Discontinu ed, Routine [facility] tamsulosin (FLOMAX) capsule 0.4 mg 08-14 15:49: 00 Yes .4mg 0.4 mg, Oral, DAILY, First dose on 08/15/23 at 1100, Until Discontinu ed, Routine [facility] amLODIPine (NORVASC) tablet 10 mg 08-14 14:00: 00 08-14 15:51 :30 No 10mg 10 mg, Oral, DAILY, First dose on 08/15/23 at 0900, Until Discontinu ed, Routine [facility] heparin (porcine) injection 5,000 Units 08-14 03:00: 00 08-14 06:07 :44 No 5000U 5,000 Units, Subcutaneo us, Q8H, First dose on 08/14/23 at 2200, Until Discontinu ed, Routine [facility] Sliding Scale Insulin - Lispro (HumaLOG) 08-14 02:00: 00 08-14 18:06 :14 No Subcutaneo us, TID MEALS+HS, First dose on 08/14/23 at 2100, Until Discontinu ed, Routine [facility] glucagon (GLUCAGEN DIAGNOSTIC KIT) injection 1 mg 08-14 00:36: 37 Yes 1mg 1 mg, Intramuscu lar, PRN, Starting on 08/14/23 at 1936, Until Discontinu ed, HAO, Blood Glucose < or = 70 mg/dL and patient is NPO, unable to swallow or has mental changes. [facility] dextrose 50 % in water (D50W) injection 25 mL 08-14 00:36: 37 Yes 25mL 25 mL, Slow IV Push, PRN, Starting on 08/14/23 at 1936, Until Discontinu ed, HAO, Blood Glucose < or = 70 mg/dL and patient is NPO, unable to swallow or has mental status changes. [facility] acetaminoph en (TYLENOL) tablet 650 mg 08-14 00:36: 24 Yes 650mg 650 mg, Oral, Q6HPRN, Starting on 08/14/23 at 1936, Until Discontinu ed, Routine, Pain (scale 1-3) [facility] aspirin chewable tablet 324 mg 08-13 23:15: 00 08-13 22:56 :00 No [id number] 324mg 324 mg, Oral, ONCE, 1 dose, On 08/14/23 at 1815, HAO [facility] lidocaine 2% viscous (LIDOCAINE VISCOUS) 2 % solution 15 mL 08-13 23:00: 00 08-13 22:10 :00 No [id number] 15mL 15 mL, Oral, ONCE, 1 dose, On 08/14/23 at 1800, Routine [facility] KCL (KLOR-CON M20) tablet 20 mEq 08-13 22:30: 00 08-13 22:59 :00 No [id number] 20meq 20 mEq, Oral, ONCE, 1 dose, On 08/14/23 at 1730, [facility] metoprolol tartrate (LOPRESSOR) tablet 50 mg 08-13 22:00: 00 08-13 22:58 :00 No [id number] 50mg 50 mg, Oral, ONCE, 1 dose, On 08/14/23 at 1700, [facility] iopamidol (ISOVUE 370-500 mL) injection 80 mL 08-13 21:30: 00 08-13 21:45 :00 No [id number] 80mL 80 mL, Intravenou s, ONCE, 1 dose, On 08/14/23 at 1645, Routine [facility] acetaminoph en (TYLENOL) tablet 650 mg 08-13 21:15: 00 08-13 22:57 :00 No [id number] 650mg 650 mg, Oral, ONCE, 1 dose, On 08/14/23 at 1615, [facility] amLODIPine (NORVASC) tablet 5 mg 08-13 21:15: 00 08-13 22:58 :00 No [id number] 5mg 5 mg, Oral, ONCE, 1 dose, On 08/14/23 at 1615, [facility] NaCl 0.9% (NS) bolus infusion 1,000 mL 08-13 21:15: 00 08-13 21:50 :00 No [id number] 1000mL at 999 mL/hr, 1,000 mL, IV Infusion, ONCE, 1 dose, On 08/14/23 at 1615, [facility] insulin NPH (HUMULIN N) injection 9 Units 2022-04 14:00: 00 Yes 9U 9 Units, Subcutaneo us, QAM WITH BREAKFAST, First dose (after last modificati on) on Wed04/24/23 at 0800, Until Discontinu ed, Routine [facility] losartan 25 mg tablet 2022-04 00:00: 00 08-15 00:00 :00 No [id number] 25mg Take 1 tablet by mouth in the morning. [facility] tamsulosin (FLOMAX) 0.4 mg 24 hr capsule 2022-04 00:00: 00 08-15 00:00 :00 No [id number] .4mg Take 1 capsule by mouth in the morning. [facility] metFORMIN 500 mg tablet 2022-04 00:00: 00 05-23 05:59 :00 No [id number] Take 1 tablet by mouth 2 (two) times daily with meals for 7 days, THEN 2 tablets 2 (two) times daily with meals for 21 days. [facility] insulin lispro (human) (HumaLOG U-100) injection 3 Units 2022-04 23:00: 00 Yes 3U 3 Units, Subcutaneo us, TID MEALS, First dose (after last modificati on) on Wed04/23/23 at 1700, Until Discontinu ed, Routine [facility] insulin NPH (HUMULIN N) injection 5 Units 2022-04 23:00: 00 Yes 5U 5 Units, Subcutaneo us, QPM, First dose (after last modificati on) on Wed04/23/23 at 1700, Until Discontinu ed, Routine [facility] losartan (COZAAR) tablet 25 mg 2022-04 15:00: 00 Yes 25mg 25 mg, Oral, DAILY, First dose on Wed04/23/23 at 0900, Until Discontinu ed, Routine [facility] Potassium Bicarb-Citr ic Acid (EFFER-K) effervescen t tablet 40 mEq 2022-04 13:00: 00 04-23 13:33 :00 No 40meq 40 mEq, Oral, ONCE, 1 dose, On Wed04/23/23 at 0700, Routine [facility] ramelteon (ROZEREM) tablet 8 mg 2022-04 10:45: 00 04-23 10:51 :00 No 8mg 8 mg, Oral, ONCE NOW, 1 dose, On Wed04/23/23 at 0500, Routine [facility] Blood-Gluco se Meter (ACCU-CHEK GUIDE GLUCOSE METER) [facility] 2022-04 00:00: 00 Yes [id number] Use as directed [facility] lancets 33 gauge [facility] 2022-04 00:00: 00 Yes [id number] Use as directed [facility] blood sugar diagnostic (ACCU-CHEK GUIDE TEST STRIPS) strip 2022-04 00:00: 00 Yes [id number] Use as directed [facility] pioglitazon e 15 mg tablet 2022-04 00:00: 00 08-15 00:00 :00 No [id number] 7.5mg Take 0.5 tablets by mouth in the morning. [facility] acarbose 25 mg tablet 2022-04 00:00: 00 08-15 00:00 :00 No [id number] 25mg Take 1 tablet by mouth in the morning and 1 tablet at noon and 1 tablet in the evening. Take with meals. [facility] atorvastati n 80 mg tablet 2022-04 00:00: 00 05-24 05:59 :00 No [id number] 80mg Take 1 tablet by mouth at bedtime for 30 days. [facility] glipiZIDE 5 mg tablet 2022-04 00:00: 00 05-24 05:59 :00 No [id number] 5mg Take 1 tablet by mouth 2 (two) times daily before breakfast and dinner for 30 days. [facility] enoxaparin (LOVENOX) injection 40 mg 2022-04 15:00: 00 Yes 40mg 40 mg, Subcutaneo us, DAILY, First dose on Wed04/22/23 at 0900, Until Discontinu ed, Routine [facility] insulin NPH (HUMULIN N) injection 8 Units 2022-04 14:00: 00 04-23 19:10 :37 No 8U 8 Units, Subcutaneo us, QAM WITH BREAKFAST, First dose on Wed04/22/23 at 0800, Until Discontinu ed, Routine [facility] insulin NPH (HUMULIN N) injection 4 Units 2022-04 23:00: 00 04-23 19:10 :37 No 4U 4 Units, Subcutaneo us, QPM, First dose on Wed04/21/23 at 1700, Until Discontinu ed, [facility] lispro (human) (HumaLOG U-100) injection 2 Units 2022-04 23:00: 00 04-23 19:10 :37 No 2U 2 Units, Subcutaneo us, TID MEALS, First dose (after last modificati on) on Wed04/21/23 at 1700, Until Discontinu ed, Routine [facility] NaCl 0.9% (NS) IV infusion 250 mL 2022-04 21:15: 00 04-22 20:03 :10 No [id number] 250mL at 20 mL/hr, IV Infusion, CONTINUOUS , Starting on Wed04/21/23 at 1515, Until Wed04/22/23 at 1403, Routine
To keep vein open
[facility] perflutren lipid microsphere s (DEFINITY) injection 2 mL 2022-04 21:00: 00 04-21 20:15 :00 No [id number] 2mL 2 mL, IV Push, ONCE, 1 dose, On Wed04/21/23 at 1500, Routine [facility] atropine injection 1 mg 2022-04 21:00: 00 04-21 20:44 :00 No [id number] 1mg 1 mg, Slow IV Push, ONCE, 1 dose, On Wed04/21/23 at 1500, Routine [facility] DOBUTamine (DOBUTREX) 250 mg/250 mL RTU infusion 2022-04 20:13: 51 04-22 20:03 :10 No [id number] 5ug/kg/ min 5 mcg/kg/min ?59 kg (17.7 [...] the Dobutamine infusion. (see Adjunctive Therapy)<b r> [facility] perflutren protein-A microsphr (OPTISON) injection 3 mL 2022-04 17:15: 00 04-21 15:22 :00 No [id number] 3mL 3 mL, IV Push, ONCE, 1 dose, On Wed04/21/23 at 1115, Routine [facility] potassium chloride in water 10 mEq/100 mL RTU 10 mEq 2022-04 17:00: 00 04-21 20:59 :00 No 10meq 10 mEq, IV Piggyback, Q1H, 4 doses, First dose (after last reorder) on Wed04/21/23 at 1100, Last dose on Wed04/21/23 at 1400, Administer over 60 Minutes, 100 mL [facility] tamsulosin (FLOMAX) capsule 0.4 mg 2022-04 15:00: 00 Yes .4mg 0.4 mg, Oral, DAILY, First dose on Wed04/21/23 at 0900, Until Discontinu ed, Routine [facility] aspirin chewable tablet 81 mg 2022-04 15:00: 00 04-22 16:28 :38 No 81mg 81 mg, Oral, DAILY, First dose on Wed04/21/23 at 0900, Until Discontinu ed, Routine [facility] aspirin tablet 325 mg 2022-04 15:00: 00 04-21 06:21 :21 No 325mg 325 mg, Oral, DAILY, First dose on Wed04/21/23 at 0900, Until Discontinu ed, Routine [facility] Sliding Scale Insulin - Lispro (HumaLOG) 2022-04 14:00: 00 Yes Subcutaneo us, TID MEALS+HS, First dose on Wed04/21/23 at 0800, Until Discontinu ed, Routine [facility] magnesium sulfate in water 2 gram/50 mL (4 %) infusion 2 g 2022-04 12:30: 00 04-21 15:11 :00 No 2g 2 g, IV Piggyback, Administer over 60 Minutes, ONCE, 1 dose, On Wed04/21/23 at 0630, Routine [facility] Potassium Bicarb-Citr ic Acid (EFFER-K) effervescen t tablet 40 mEq 2022-04 12:30: 00 04-21 12:36 :00 No 40meq 40 mEq, Oral, ONCE, 1 dose, On Wed04/21/23 at 0630, Routine [facility] glargine (LANTUS U-100) injection 9 Units 2022-04 07:45: 00 04-21 21:08 :08 No .15U/kg /d 9 Units (rounded from 8.745 Units = 0.15 Units/kg/d ay ?58.3 kg), Subcutaneo us, QHS, First dose (after last modificati on) on Wed04/21/23 at 0145, Until Discontinu ed, Routine [facility] atorvastati n (LIPITOR) tablet 80 mg 2022-04 06:30: 00 Yes 80mg 80 mg, Oral, QHS, First dose on Wed04/21/23 at 0030, Until Discontinu ed, Routine [facility] dextrose 50 % in water (D50W) injection 25 mL 2022-04 06:24: 50 Yes 25mL 25 mL, Slow IV Push, PRN, Starting on Wed04/21/23 at 0024, Until Discontinu ed, HAO, Blood Glucose < or = 70 mg/dL and patient is NPO, unable to swallow or has mental status changes. [facility] acetaminoph en (TYLENOL) tablet 650 mg 2022-04 05:53: 21 Yes 650mg 650 mg, Oral, Q6HPRN, Starting on Wed04/20/23 at 2353, Until Discontinu ed, Routine, Pain (scale 1-3) [facility] NaCl 0.9% (NS) bolus infusion 1,000 mL 2022-04 04:00: 00 04-21 03:45 :00 No 1000mL at 999 mL/hr, 1,000 mL, IV Infusion, ONCE, 1 dose, On Wed04/20/23 at 2200, STAT [facility] clopidogreL (PLAVIX) 300 mg tablet 300 mg 2022-04 03:30: 00 04-21 02:50 :00 No 300mg 300 mg, Oral, ONCE, 1 dose, On Wed04/20/23 at 2130, HAO [facility] HEPARIN SODIUM (PORCINE) 1,000 UNIT/ML BOLUS ACS ORDER SET 2022-04 02:45: 00 04-21 02:53 :00 No 60U/kg 3,540 Units (60 Units/kg ?59 kg), IV Push, ONCE, 1 dose, On Wed04/20/23 at 2044, HAO [facility] heparin 25,000 Units/250 mL (Premixed Bag) in [...] Rang e, Dosing and Testing: &nbs p;FOR [facility], [facility], AND [facility] ONLY &nbs p; - aPTT < [...] units/hr&n bsp; - aPTT 40-49:&nbs p; Gagan otny 3000 units, increase rate 200 units/hr&n bsp; [...] ADJUST INITIAL BOLUS OR INITIAL INFUSION RATE.
[facility] Vital Signs Vital Name Observation Time Observation Value Comments S ource Systolic blood pressure 2023-08-24 13:02:00 150 mm[Hg] [facility] Diastolic blood pressure 2023-08-24 13:02:00 88 mm[Hg] [facility] Heart rate 2023-08-24 13:02:00 79 /min [facility] Body temperature 2023-08-24 13:02:00 36.44 Deya [facility] Respiratory rate 2023-08-24 13:02:00 14 /min [facility] Oxygen saturation in Arterial blood by Pulse oximetry 2023-08-24 13:02:00 98 /min [facility] Body weight 2023-08-24 08:43:00 58.469 kg [facility] BMI 2023-08-24 08:43:00 22.83 kg/m2 [facility] Body height 2023-08-22 04:52:00 160 cm [facility] Systolic blood pressure 2023-08-16 16:53:00 154 mm[Hg] [facility] Diastolic blood pressure 2023-08-16 16:53:00 94 mm[Hg] [facility] Heart rate 2023-08-16 16:53:00 82 /min [facility] Body temperature 2023-08-16 16:53:00 36.61 Deya [facility] Respiratory rate 2023-08-16 16:53:00 16 /min [facility] Oxygen saturation in Arterial blood by Pulse oximetry 2023-08-16 16:53:00 99 /min [facility] Body weight 2023-08-16 09:56:00 56.473 kg [facility] BMI 2023-08-16 09:56:00 22.05 kg/m2 [facility] Body height 2023-08-15 04:07:00 160 cm [facility] Systolic blood pressure 2023-04-23 18:11:00 141 mm[Hg] [facility] Diastolic blood pressure 2023-04-23 18:11:00 80 mm[Hg] [facility] Heart rate 2023-04-23 18:11:00 101 /min [facility] Body temperature 2023-04-23 18:11:00 35.89 Deya [facility] Respiratory rate 2023-04-23 18:11:00 18 /min [facility] Oxygen saturation in Arterial blood by Pulse oximetry 2023-04-23 18:11:00 98 /min [facility] Body weight 2023-04-22 09:57:00 57.561 kg [facility] BMI 2023-04-22 09:57:00 22.48 kg/m2 [facility] Body height 2023-04-21 20:00:00 160 cm [facility] Procedures Procedure Date / Time Performed Performing Clinician Source POCT GLUCOSE (AUTOMATED) 2023-08-24 16:13:00 Jami Banda [facility] POCT GLUCOSE (AUTOMATED) 2023-08-24 12:34:00 Jami Banda [facility] BASIC METABOLIC PANEL (NA, K, CL, CO2, GLUCOSE, BUN, CREATININE, CA) 2023-08-24 08:42:00 Jerry Fields [facility] CBC WITH DIFF 2023-08-24 08:42:00 Jerry Fields [facility] POCT GLUCOSE (AUTOMATED) 2023-08-24 05:46:00 Jami Banda [facility] BASIC METABOLIC PANEL (NA, K, CL, CO2, GLUCOSE, BUN, CREATININE, CA) 2023-08-24 01:37:00 Jerry Fields [facility] POCT GLUCOSE (AUTOMATED) 2023-08-24 01:27:00 Jami Banda [facility] POCT GLUCOSE (AUTOMATED) 2023-08-23 21:29:00 Jami Banda [facility] BASIC METABOLIC PANEL (NA, K, CL, CO2, GLUCOSE, BUN, CREATININE, CA) 2023-08-23 17:41:00 Jerry Fields [facility] POCT GLUCOSE (AUTOMATED) 2023-08-23 16:42:00 Jami Banda [facility] POCT GLUCOSE (AUTOMATED) 2023-08-23 12:36:00 Jami Banda [facility] POCT GLUCOSE (AUTOMATED) 2023-08-23 09:09:00 Jami Banda [facility] MAGNESIUM 2023-08-23 08:23:00 Jerry Fields [facility] BASIC METABOLIC PANEL (NA, K, CL, CO2, GLUCOSE, BUN, CREATININE, CA) 2023-08-23 08:23:00 Jerry Fields [facility] CBC WITH DIFF 2023-08-23 08:23:00 Jerry Fields [facility] POCT GLUCOSE (AUTOMATED) 2023-08-23 04:52:00 Jami Banda [facility] POCT GLUCOSE (AUTOMATED) 2023-08-23 00:42:00 Jami Banda [facility] BASIC METABOLIC PANEL (NA, K, CL, CO2, GLUCOSE, BUN, CREATININE, CA) 2023-08-23 00:38:00 Jerry Fields [facility] POCT GLUCOSE (AUTOMATED) 2023-08-22 21:18:00 Jami Banda [facility] URIC ACID 2023-08-22 19:21:00 Alyssa Cain [facility] PROTEIN CREAT RATIO URINE RANDOM 2023-08-22 19:21:00 Alyssa Cain [facility] CORTISOL AM 2023-08-22 19:20:00 Alyssa Cain [facility] BASIC METABOLIC PANEL (NA, K, CL, CO2, GLUCOSE, BUN, CREATININE, CA) 2023-08-22 13:21:00 Lyubov Banda [facility] LACTIC ACID WHOLE BLOOD 2023-08-22 09:16:00 Loreta Banda mmad [facility] MAGNESIUM 2023-08-22 08:30:00 Lyubov Banda [facility] TROPONIN I 2023-08-22 08:30:00 Lyubov Banda [facility] CBC WITH DIFF 2023-08-22 08:30:00 [facility]MIN[facility] PRO-BNP 2023-08-22 08:30:00 Lyubov Banda [facility] PHOSPHORUS 2023-08-22 04:01:00 Lyubov Banda [facility] BASIC METABOLIC PANEL (NA, K, CL, CO2, GLUCOSE, BUN, CREATININE, CA) 2023-08-22 04:01:00 Cosme Cardona [facility] URINALYSIS 2023-08-22 01:52:00 Cosme [facility] CT ABDOMEN PELVIS WO CONTRAST 2023-08-22 01:26:17 Cosme Cardona [facility] CREATINE KINASE 2023-08-22 01:24:00 Lyubov Banda [facility] LIPASE 2023-08-22 01:24:00 [facility]. METABOLIC PANEL ([id number]) 2023-08-22 01:24:00 [facility] CBC WITH DIFF 2023-08-22 01:24:00 Singer [facility] POCT GLUCOSE (AUTOMATED) 2023-08-16 21:51:00 Yue Fields [facility] POCT GLUCOSE (AUTOMATED) 2023-08-16 16:54:00 Yue Fields [facility] POCT GLUCOSE (AUTOMATED) 2023-08-16 12:45:00 Yue Fields [facility] POCT GLUCOSE (AUTOMATED) 2023-08-16 02:06:00 Yue Fields [facility] POCT GLUCOSE (AUTOMATED) 2023-08-15 21:29:00 Yue Fields [facility] POCT GLUCOSE (AUTOMATED) 2023-08-15 16:39:00 Yue Fields [facility] POCT GLUCOSE (AUTOMATED) 2023-08-15 13:08:00 Yue Fields [facility] TROPONIN I 2023-08-15 10:41:00 Juventino [facility] BASIC METABOLIC PANEL (NA, K, CL, CO2, GLUCOSE, BUN, CREATININE, CA) 2023-08-15 10:41:00 Shanice [facility] CBC WITH DIFF 2023-08-15 10:41:[address] [facility] PROSTATIC SPECIFIC ANTIGEN 2023-08-15 05:32:00 [facility] 2023-08-15 05:32:00 [facility] 2023-08-15 04:03:00 Yue Fields [facility] URINALYSIS 2023 22:15:00 Umang Reynaga [facility] XR CHEST 1 VW 2023 21:46:00 Umang Reynaga [facility] CT ABDOMEN PELVIS W CONTRAST 2023 21:34:[address] [facility] CT TRAUMA HEAD WO CONTRAST 2023 21:33:20 Rosmery [facility] HB ECG ROUTINE & RHYTHM STRIP 2023 21:10:12 Rosmery [facility] PHOSPHORUS 2023 20:47:00 Rosmery [facility] CREATINE KINASE 2023 20:47:00 [facility]ang [facility] LIPASE 2023 20:47:00 Rosmery [facility] MAGNESIUM 2023 20:47:00 Rosmery [facility] BETA HYDROXY-BUTYRATE 2023 20:47:00 Farida Reynaga [facility] TROPONIN I 2023 20:47:00 [facility] COMP. METABOLIC PANEL ([id number]) 2023 20:47:00 Rosmery [facility] CBC WITH DIFF 2023 20:47:00 Umang Reynaga [facility] GLYCOSYLATED HEMOGLOBIN (A1C) 2023 20:47:00 Jerry Fields [facility] N-TERMINAL PRO-BNP 2023 20:47:00 Michael Reynaga [facility] ACUTE CARE VENOUS BLOOD GAS 2023 20:46:00 Rosmery [facility] LACTIC ACID WHOLE BLOOD 2023 20:46:00 Kina Reynaga [facility] POCT GLUCOSE(AGE >30DAYS) 2023 20:26:00 Rosmery [facility] POCT GLUCOSE (AUTOMATED) 2023 20:23:00 Rosmery [facility] POCT GLUCOSE (AUTOMATED) 2023-04-23 18:09:00 Brien Banda [facility] POCT GLUCOSE (AUTOMATED) 2023-04-23 15:32:00 Brien Banda [facility] MAGNESIUM 2023-04-23 09:09:00 Loghin, [facility] BASIC METABOLIC PANEL (NA, K, CL, CO2, GLUCOSE, BUN, CREATININE, CA) 2023-04-23 09:09:00 Chet Echavarria [facility] POCT GLUCOSE (AUTOMATED) 2023-04-23 02:56:00 Brien Banda [facility] POCT GLUCOSE (AUTOMATED) 2023-04-23 00:32:00 Solo [facility] POCT GLUCOSE (AUTOMATED) 2023-04-22 22:43:00 Solo [facility] POCT GLUCOSE (AUTOMATED) 2023-04-22 20:36:00 Solo [facility] POCT GLUCOSE (AUTOMATED) 2023-04-22 17:44:00 Solo [facility] POCT GLUCOSE (AUTOMATED) 2023-04-22 13:41:00 Solo [facility] MAGNESIUM 2023-04-22 10:37:00 Daja Aaliyah [facility] BASIC METABOLIC PANEL (NA, K, CL, CO2, GLUCOSE, BUN, CREATININE, CA) 2023-04-22 10:37:00 Daja Aaliyah [facility] CBC WITH DIFF 2023-04-22 10:37:00 Daja Aaliyah [facility] POCT GLUCOSE (AUTOMATED) 2023-04-22 03:32:00 Solo [facility] POCT GLUCOSE (AUTOMATED) 2023-04-22 01:34:00 Solo [facility] COMPLETE ECHOCARDIOGRAM DOBUTAMINE STRESS TEST W CONTRAST 2023-04-21 21:15:00 Jeanine Montana [facility] POCT GLUCOSE (AUTOMATED) 2023-04-21 17:36:00 Solo [facility] ACTIVATED PARTIAL THRMPLAS JERMAINE 2023-04-21 16:47:00 Sergio Aponte [facility] TRANSTHORACIC ECHO (TTE) COMPLETE W/ CONTRAST 2023-04-21 15:26:00 Kylie Fuchs [facility] TROPONIN I 2023-04-21 12:39:00 Víctor Fuchs Noel [facility] POCT GLUCOSE (AUTOMATED) 2023-04-21 09:39:00 Brien Banda [facility] MAGNESIUM 2023-04-21 09:10:00 Víctor Fuchs Noel [facility] BASIC METABOLIC PANEL (NA, K, CL, CO2, GLUCOSE, BUN, CREATININE, CA) 2023-04-21 09:10:00 Kylie Fuchs Noel [facility] LIPID PANEL ([id number])(TOTAL CHOLESTEROL, TRIGLYCERIDES, HDL) 2023-04-21 09:10:00 Kylie Fuchs Noel [facility] CBC WITH DIFF 2023-04-21 09:10:00 Víctor Fuchs [facility] ACTIVATED PARTIAL THRMPLAS JERMAINE 2023-04-21 09:10:00 Sergio Aponte [facility] XR CHEST 1 VW 2023-04-21 06:53:47 Víctor Fuchs haleyue [facility] TROPONIN I 2023-04-21 06:32:00 Víctor Fuchs haleyue Noel [facility] IRON PANEL 2023-04-21 06:32:00 Víctor Fuchs haleyue [facility] N-TERMINAL PRO-BNP 2023-04-21 06:32:00 Kylie Fuchs Noel [facility] CRITICAL CARE 2023-04-21 02:54:15 Sergio Aponte [facility] PROTHROMBIN TIME / INR 2023-04-21 02:44:00 Enrique Aponte [facility] ACTIVATED PARTIAL THRMPLAS JERMAINE 2023-04-21 02:44:00 Sergio Aponte [facility] URINALYSIS 2023-04-21 02:33:00 Sergio Aponte [facility] PROTEIN CREAT RATIO URINE RANDOM 2023-04-21 02:33:00 Tavia Fuchsmad Noel [facility] URINE DRUG (IMMUNOASSAY) - COMPREHENSIVE DRUG SCREEN W/O REFLEX 2023-04-21 02:33:00 Sergio Aponte [facility] PHOSPHORUS 2023-04-21 01:55:00 Víctor Fuchs Noel [facility] FERRITIN SERUM 2023-04-21 01:55:00 Víctor Fuchs Noel [facility] TROPONIN I 2023-04-21 01:55:00 [facility] THYROID STIMULATING HORMONE 2023-04-21 01:55:00 Kylie Fuchs Noel [facility] COMP. METABOLIC PANEL ([id number]) 2023-04-21 01:55:00 Sergio Aponte [facility] ETHANOL 2023-04-21 01:55:00 [facility] CBC WITH DIFF 2023-04-21 01:55:00 Sergio Aponte [facility] GLYCOSYLATED HEMOGLOBIN (A1C) 2023-04-21 01:55:00 Kylie Fuchs [facility] POCT GLUCOSE (AUTOMATED) 2023-04-21 01:54:00 Yue Aponte [facility] EKG-12 LEAD 2023-04-21 01:51:41 [facility] Start Date/Time End Date/Time Encounter Type Admission Type Attending Clinicians Care Facility Care Department Encounter ID Source 2023-08-21 19:47:00 2023-08-24 16:32:00 Hospital Encounter Cosme Cardona Mohammad [facility]. [facility] 1..840.114 350.1.13.10 4.2.7.2.686 [id number] [facility] 2023-08-20 00:00:00 2023-08-20 00:00:00 Patient Outreach Rosalie Irizarry [id number] 350.1.13.10 4.2.7.2.686 [id number] [facility] 2023-08-17 00:00:00 2023-08-17 00:00:[address] [facility] [id number] 350.1.13.10 4.2.7.2.686 [id number] [facility] 2023 14:42:00 2023-08-16 18:40:00 Hospital Encounter Umang Reynaga [place], Jelani [facility] [id number] 350.1.13.10 4.2.7.2.686 [id number] [facility] 2023-04-27 00:00:00 2023-04-27 00:00:00 Transition of Care Jeannette Dawn JANIS BAEZ [id number] 350.1.13.10 4.2.7.2.686 [id number] [facility] 2023-04-20 19:48:00 2023-04-23 19:54:00 Inpatient X PARVEZ MON[facility] [id number] [facility] 2023-04-20 19:48:00 2023-04-23 19:54:00 Hospital Encounter Sergio Aponte Rizwan Dacso, Matthew M [facility] [id number] [id number] 4.2.7.2.686 [id number] [facility] Results Test Description Test Time Test Comments Results Result Co mments Source [facility] 12:35:27* Test Item Value Reference Range Interpretation Comme nts POCT GLU (test code = 1129041858) 204 mg/dL 70-110 H Lab Interpretation (test cod e = 58520-2) Abnormal [facility] (NA, K, CL, CO2, GLUCOSE, BUN, CREATININE, CA)2023-08-24 09:45:39* Test Item Value Reference Range Interpretation Comme nts NA (test code = 0158625410) 133 mmol/L 135-145 L K (test code = 3010117854) 3.7 mmol/L 3.5-5.0 CL (test code = 1604465731) 98 mmol/L 98-108 CO2 TOTAL (test code = 0947529534) 27 mmol/L 23-31 AGAP (test code = 7626011548) 8 2-16 BUN (test code = 1941698505) 13 mg/dL 7-23 GLUCOSE (test code = 2735153435) 188 mg/dL 70-110 H CREATININE (test code = 2160-0) 0.63 mg/dL 0.60-1.25 CALCIUM (test code = 1169360458) 9.4 mg/dL 8.6-10.6 eGFR (test code = 61462-5) 111.6 mL/min/1.73m2 CKD-EPI eGFR (2020). Assuming creatinine has been stable day-to-day for at least three months, the eGFR indicates Category G1 (>= 90 mL/min/1.73 m2) Lab Interpretation (test code = 24681-9) Abnormal [facility] with [id number] 09:21:26* Test Item Value Reference Range Interpretation [...] g/dL 31.2-35.0 H RDW-SD (test code = 82281-9) 36.9 fL 38.5-51.6 L RDW-CV (test code = 788-0) 11.6 % 12.1-15.4 L PLT (test code = 777-3) 407 150-328 H MPV (test code = 15424-8) 9.5 fL 9.8-13.0 L NRBC/100 WBC (test code = 1932174373) 0.0 0.0-10.0 NRBC x10^3 (test code = 1766931756) See_Comment [Automated messa ge] The system which generated this result transmitted reference range: 10*3/?L. The reference range was not used to interpret this result as normal/abnormal. GRAN MAT (NEUT) % (test code = 770-8) 63.1 % IMM GRAN % (test code = 0709858115) 0.30 % LYMPH % (test code = 736-9) 21.1 % MONO % (test code = 5905-5) 8.3 % EOS % (test code = 713-8) 6.5 % BASO % (test code = 706-2) 0.7 % GRAN MAT x10^3(ANC) (test code = 4876440991) 3.71 10*3/uL 1.99-6.95 IMM GRAN x10^3 (test code = 4577644098) 0.00-0.06 LYMPH x10^3 (test code = 731-0) 1.24 10*3/uL 1.09-3.23 MONO x10^3 (test code = 742-7) 0.49 10*3/uL 0.36-1.02 EOS x10^3 (test code = 711-2) 0.38 10*3/uL 0.06-0.53 BASO x10^3 (test code = 704-7) 0.04 10*3/uL 0.01-0.09 Lab Interpretation (test code = 08358-1) Abnormal [facility]2023-08-24 05:47:46* Test Item Value Reference Range Interpretation Comme nts POCT GLU (test code = 7531053864) 126 mg/dL 70-110 H Lab Interpretation (test cod e = 31433-1) Abnormal [facility] Metabolic Panel (NA, K, CL, CO2, GLUCOSE, BUN, CREATININE, CA)2023-08-24 02:27:27* Test Item Value Reference Range Interpretation Comme nts NA (test code = 9328606510) 129 mmol/L 135-145 L K (test code = 5155179013) 3.9 mmol/L 3.5-5.0 CL (test code = 9432565773) 96 mmol/L 98-108 L CO2 TOTAL (test code = 2782550443) 29 mmol/L 23-31 AGAP (test code = 0624474529) 4 2-16 BUN (test code = 4264823160) 14 mg/dL 7-23 GLUCOSE (test code = 9065196610) 185 mg/dL 70-110 H CREATININE (test code = 2160-0) 0.56 mg/dL 0.60-1.25 L CALCIUM (test code = 2178421900) 9.2 mg/dL 8.6-10.6 eGFR (test code = 74678-5) 115.7 mL/min/1.73m2 CKD-EPI eGFR (2020). Assuming creatinine has been stable day-to-day for at least three months, the eGFR indicates Category G1 (>= 90 mL/min/1.73 m2) Lab Interpretation (test code = 67813-7) Abnormal [facility] GLUCOSE (AUTOMATED)2023-08-24 01:28:28* Test Item Value Reference Range Interpretation Comme nts POCT GLU (test code = 4935573791) 210 mg/dL 70-110 H Lab Interpretation (test cod e = 48452-3) Abnormal [facility] GLUCOSE (AUTOMATED)2023-08-23 21:30:04* Test Item Value Reference Range Interpretation Comme nts POCT GLU (test code = 7981420770) 149 mg/dL 70-110 H Lab Interpretation (test cod e = 05949-5) Abnormal [facility] GLUCOSE (AUTOMATED)2023-08-23 16:45:20* Test Item Value Reference Range Interpretation Comme nts POCT GLU (test code = 5229059596) 147 mg/dL 70-110 H Lab Interpretation (test cod e = 83643-1) Abnormal [facility] GLUCOSE (AUTOMATED)2023-08-23 12:36:56* Test Item Value Reference Range Interpretation Comme nts POCT GLU (test code = 7594465749) 131 mg/dL 70-110 H Lab Interpretation (test cod e = 45518-7) Abnormal [facility] GLUCOSE (AUTOMATED)2023-08-23 09:17:23* Test Item Value Reference Range Interpretation Comme nts POCT GLU (test code = 6939642969) 154 mg/dL 70-110 H Lab Interpretation (test cod e = 17781-3) Abnormal [facility] GLUCOSE (AUTOMATED)2023-08-23 05:03:01* Test Item Value Reference Range Interpretation Comme nts POCT GLU (test code = 4598966942) 183 mg/dL 70-110 H Lab Interpretation (test cod e = 80715-8) Abnormal [facility] Metabolic Panel (NA, K, CL, CO2, GLUCOSE, BUN, CREATININE, CA)2023-08-23 01:49:58* Test Item Value Reference Range Interpretation Comme nts NA (test code = 7005323470) 132 mmol/L 135-145 L K (test code = 8130834948) 4.1 mmol/L 3.5-5.0 CL (test code = 0469885143) 101 mmol/L 98-108 CO2 TOTAL (test code = 6108590914) 28 mmol/L 23-31 AGAP (test code = 3686013621) 3 2-16 BUN (test code = 0014949216) 17 mg/dL 7-23 GLUCOSE (test code = 6251972807) 149 mg/dL 70-110 H CREATININE (test code = 2160-0) 0.97 mg/dL 0.60-1.25 CALCIUM (test code = 8287342534) 8.4 mg/dL 8.6-10.6 L eGFR (test code = 65636-6) 91.6 mL/min/1.73m2 CKD-EPI eGFR (2020). Assuming creatinine has been stable day-to-day for at least three months, the eGFR indicates Category G1 (>= 90 mL/min/1.73 m2) Lab Interpretation (test code = 08117-9) Abnormal [facility] GLUCOSE (AUTOMATED)2023-08-23 00:43:06* Test Item Value Reference Range Interpretation Comme nts POCT GLU (test code = 5761555151) 126 mg/dL 70-110 H Lab Interpretation (test cod e = 89125-8) Abnormal [facility] [id number] 22:59:03* Test Item Value Reference Range Interpretation Comme nts IBRAHIMA AM (test code = 2291269053) 24.7 ug/dL 4.5-23.0 H GINA (test code = GINA) Biotin has been reported to cause a positive bias, interpret results relative to patient's use of biotin. Lab Interpretation (test code = 58032-4) Abnormal [facility])2023-08-22 21:29:10* Test Item Value Reference Range Interpretation Comme [facility] POCT GLU (test code = 2583828958) 341 mg/dL 70-110 H Lab Interpretation (test cod e = 70573-9) Abnormal [facility] Northwest[facility]ric [id number] 19:53:59* Test Item Value Reference Range Interpretation Comme [facility] URIC ACID (test code = 4382020729) 6.4 mg/dL 3.6-8.0 Lab Interpretation (test cod e = 56814-4) Normal [facility] Metabolic Panel (NA, K, CL, CO2, GLUCOSE, BUN, CREATININE, CA)2023-08-22 14:43:15* Test Item Value Reference Range Interpretation Comme nts NA (test code = 0496665341) 138 mmol/L 135-145 K (test code = 7381664383) 4.6 mmol/L 3.5-5.0 CL (test code = 9034777542) 102 mmol/L 98-108 CO2 TOTAL (test code = 5408615605) 28 mmol/L 23-31 AGAP (test code = 8454752705) 8 2-16 BUN (test code = 7018360197) 34 mg/dL 7-23 H GLUCOSE (test code = 4990665233) 224 mg/dL 70-110 H CREATININE (test code = 2160-0) 1.89 mg/dL 0.60-1.25 H CALCIUM (test code = 3769758563) 9.4 mg/dL 8.6-10.6 eGFR (test code = 47618-2) 41.1 mL/min/1.73m2 CKD-EPI eGFR (2020). Assuming creatinine has been stable day-to-day for at least three months, the eGFR indicates Category G3b (30 - 44 mL/min/1.73 m2) Lab Interpretation (test code = 22688-0) Abnormal [facility] Northwest[facility] [id number] 14:42:45* Test Item Value Reference Range Interpretation Comme nts CK (test code = 7970096537) 224 U/L 33-194 H Lab Interpretation (test cod e = 77564-3) Abnormal [facility] NorthwestPhosphorus [id number] 12:10:01* Test Item Value Reference Range Interpretation Comme nts PHOSPHORUS (test code = 6660283087) 5.8 mg/dL 2.5-5.0 H Lab Interpretation (test cod e = 39548-8) Abnormal [facility] Met[facility] (NA, K, CL, CO2, GLUCOSE, BUN, CREATININE, CA)2023-08-22 04:41:19* Test Item Value Reference Range Interpretation Comme nts NA (test code = 9344736090) 124 mmol/L 135-145 L K (test code = 2255560305) 4.7 mmol/L 3.5-5.0 CL (test code = 0146142925) 93 mmol/L 98-108 L CO2 TOTAL (test code = 7602040445) 18 mmol/L 23-31 L AGAP (test code = 5387111981) 13 2-16 BUN (test code = 4933598437) 68 mg/dL 7-23 H GLUCOSE (test code = 0529067430) 116 mg/dL 70-110 H CREATININE (test code = 2160-0) 6.60 mg/dL 0.60-1.25 H CALCIUM (test code = 6365123518) 9.0 mg/dL 8.6-10.6 eGFR (test code = 20600-6) 9.2 mL/min/1.73m2 CKD-EPI eGFR (2020). Assuming creatinine has been stable day-to-day for at least three months, the eGFR indicates Category G5 (<= 14mL/min/1.73 m2) Lab Interpretation (test code = 90564-9) Abnormal [facility] WO [id number] 02:22:05Exam: CT Abdomen and Pelvis without Contrast, 08/21/2023 8:00 PM. Ordering Physician: COSME CARDONA. History: Bowel obstruction suspected Stone suspected. Comparison: [...] osseous finding. Subacute/chronic left-sided rib fractures.Soft tissues: Unremarkable.[facility]. Metabolic Panel (90720) 2023-08-22 02:21:33* Test Item Value Reference Range Interpretation Comme nts NA (test code = 9251509055) 120 mmol/L 135-145 L K (test code = 8311481930) 4.8 mmol/L 3.5-5.0 CL (test code = 3565804908) 85 mmol/L 98-108 L CO2 TOTAL (test code = 8203217243) 21 mmol/L 23-31 L AGAP (test code = 9060171449) 14 2-16 BUN (test code = 8904359823) 70 mg/dL 7-23 H GLUCOSE (test code = 2131879367) 97 mg/dL 70-110 CREATININE (test code = 2160-0) 8.39 mg/dL 0.60-1.25 H TOTAL BILI (test code = 4065873218) 0.7 mg/dL 0.1-1.1 CALCIUM (test code = 6155818858) 8.8 mg/dL 8.6-10.6 T PROTEIN (test code = 3458334633) 7.2 g/dL 6.3-8.2 ALBUMIN (test code = 3009658601) 4.1 g/dL 3.5-5.0 ALK PHOS (test code = 0069590768) 95 U/L 34-122 ALTv (test code = 1742-6) 12 U/L 5-50 AST(SGOT) (test code = 7476170495) 24 U/L 13-40 eGFR (test code = 75882-7) 6.9 mL/min/1.73m2 CKD-EPI eGFR (2020). Assuming creatinine has been stable day-to-day for at least three months, the eGFR indicates Category G5 (<= 14mL/min/1.73 m2) Lab Interpretation (test code = 83675-8) [facility]32* Test Item Value Reference Range Interpretation Comme nts LIPASE (test code = 5078794059) 758 U/L 0-220 H Lab Interpretation (test cod e = 39940-3) Abnormal General acute hospital[facility] with [facility]6921-83-54 01:58:31* Test Item Value Reference Range Interpretation [...] g/dL 31.2-35.0 H RDW-SD (test code = 53998-2) 36.0 fL 38.5-51.6 L RDW-CV (test code = 788-0) 11.5 % 12.1-15.4 L PLT (test code = 777-3) 312 150-328 MPV (test code = 55011-6) 9.4 fL 9.8-13.0 L NRBC/100 WBC (test code = 8775324509) 0.0 0.0-10.0 NRBC x10^3 (test code = 9731114463) See_Comment [Automated message] The system which generated this result transmitted reference range: 10*3/?L. The reference range was not used to interpret this result as normal/abnormal. GRAN MAT (NEUT) % (test code = 770-8) 82.7 % IMM GRAN % (test code = 2212090484) 0.50 % LYMPH % (test code = 736-9) 6.7 % MONO % (test code = 5905-5) 9.8 % EOS % (test code = 713-8) 0.2 % BASO % (test code = 706-2) 0.1 % GRAN MAT x10^3(ANC) (test code = 7168342006) 12.19 10*3/uL 1.99-6.95 H IMM GRAN x10^3 (test code = 7732982149) 0.08 10*3/uL 0.00-0.06 H LYMPH x10^3 (test code = 731-0) 0.99 10*3/uL 1.09-3.23 L MONO x10^3 (test code = 742-7) 1.44 10*3/uL 0.36-1.02 H EOS x10^3 (test code = 711-2) 0.03 10*3/uL 0.06-0.53 L BASO x10^3 (test code = 704-7) 0.01-0.09 Lab Interpretation (test code = 46874-4) Abnormal [facility] GLUCOSE (AUTOMATED)2023-08-16 22:02:57* Test Item Value Reference Range Interpretation Comme nts POCT GLU (test code = 8608292583) 112 mg/dL 70-110 H Lab Interpretation (test cod e = 71409-1) Abnormal [facility] GLUCOSE (AUTOMATED)2023-08-16 16:59:58* Test Item Value Reference Range Interpretation Comme nts POCT GLU (test code = 6797187425) 127 mg/dL 70-110 H Lab Interpretation (test cod e = 39220-3) Abnormal [facility] GLUCOSE (AUTOMATED)2023-08-16 12:48:23* Test Item Value Reference Range Interpretation Comme nts POCT GLU (test code = 9651954262) 175 mg/dL 70-110 H Lab Interpretation (test cod e = 91994-2) Abnormal [facility] GLUCOSE (AUTOMATED)2023-08-16 02:07:02* Test Item Value Reference Range Interpretation Comme nts POCT GLU (test code = 2078798857) 195 mg/dL 70-110 H Notified Provide r Lab Interpretation (test code = 04272-4) Abnormal [facility] GLUCOSE (AUTOMATED)2023-08-15 21:36:15* Test Item Value Reference Range Interpretation Comme nts POCT GLU (test code = 0271065815) 284 mg/dL 70-110 H Lab Interpretation (test cod e = 76913-4) Abnormal [facility] GLUCOSE (AUTOMATED)2023-08-15 16:56:02* Test Item Value Reference Range Interpretation Comme nts POCT GLU (test code = 5557915488) 74 mg/dL 70-110 Lab Interpretation (test cod e = 16489-0) Normal [facility] GLUCOSE (AUTOMATED)2023-08-15 13:12:34* Test Item Value Reference Range Interpretation Comme nts POCT GLU (test code = 6665950120) 258 mg/dL 70-110 H Lab Interpretation (test cod e = 47468-9) Abnormal [facility] GLUCOSE (AUTOMATED)2023-08-15 04:04:43* Test Item Value Reference Range Interpretation Comme nts POCT GLU (test code = 1560047305) 120 mg/dL 70-110 H Lab Interpretation (test cod e = 68213-1) [facility] NorthwestGlycosylated Hemoglobin (A1C)2023-08-15 01:17:32* Test Item Value Reference Range Interpretation Comme nts HGB A1C (test code = 4548-4) 8.9 % 4.0-5.7 H GINA (test code = GINA) Reference RangesNormal: <5.7%Prediabetes: 5.7 - 6.4%Diabetes: > 6.5% Lab Interpretation (test code = 34900-5) [facility]normal [facility] NorthwestBeta Jzlzjlk-Exwkfipr3738-94-21 01:00:45* Test Item Value Reference Range Interpretation Comme nts BOH (test code = 8577006385) 0.5 mmol/L GINA (test code = GINA) Normal Ranges: ? ? Nonfasting ? Less than 0.1 mmol/L ? ? Overnight Fast ? ? ? Less than 0.4 mmol/L ? ? Fasting (1-2 weeks) ?6-8 mmol/L Test developed and characteristics determined by [facility] Laboratory Services. [facility] NorthwestCreatine Zrecdo2710-62-04 23:07:16* Test Item Value Reference Range Interpretation Comme nts CK (test code = 7074164334) 148 U/L 33-194 Lab Interpretation (test cod e = 55239-4) Normal [facility] NorthwestTROPONIN [id number] 22:18:16* Test Item Value Reference Range Interpretation Comme nts TROPONIN I (test code = 0060387128) 0.081 ng/mL <=0.034 H GINA (test code [...] of biotin. Lab Interpretation (test code = 22286-0) Abnormal [facility] NorthwestN-TERMINAL VER-[id number] 22:15:55* Test Item Value Reference Range Interpretation Comme [facility] NT-proBNP (test code = 30736-9) 999 pg/mL <=125 H GINA (test code = GINA) Positive: Heart Failure Likely Lab Interpretation (test code = 98248-7) Abnormal [facility] NorthwestMagnesium2024-04-20 22:07:17* Test Item Value Reference Range Interpretation Comme nts MAGNESIUM (test code = 5270274745) 1.8 mg/dL 1.7-2.4 Lab Interpretation (test cod e = 43104-6) Normal [facility] NorthwestCOMP. METABOLIC PANEL (01699)2023 22:06:57* Test Item Value Reference Range Interpretation Comme nts NA (test code = 2420394615) 130 mmol/L 135-145 L K (test code = 6259078382) 3.4 mmol/L 3.5-5.0 L CL (test code = 5795898340) 93 mmol/L 98-108 L CO2 TOTAL (test code = 9764505705) 26 mmol/L 23-31 AGAP (test code = 1341557787) 11 2-16 BUN (test code = 9525129034) 39 mg/dL 7-23 H GLUCOSE (test code = 9218809081) 142 mg/dL 70-110 H CREATININE (test code = 2160-0) 2.40 mg/dL 0.60-1.25 H TOTAL BILI (test code = 4940024263) 1.2 mg/dL 0.1-1.1 H CALCIUM (test code = 8644299996) 9.1 mg/dL 8.6-10.6 T PROTEIN (test code = 6780970935) 7.7 g/dL 6.3-8.2 ALBUMIN (test code = 3253275144) 4.2 g/dL 3.5-5.0 ALK PHOS (test code = 8025160482) 102 U/L 34-122 ALTv (test code = 1742-6) 16 U/L 5-50 AST(SGOT) (test code = 1461706743) 26 U/L 13-40 eGFR (test code = 75391-1) 30.9 mL/min/1.73m2 CKD-EPI eGFR (2020). Assuming creatinine has been stable day-to-day for at least three months, the eGFR indicates Category G3b (30 - 44 mL/min/1.73 m2) Lab Interpretation (test code = 22319-0) Abnormal [facility] NorthwestPhosphorus2024-04-20 22:06:37* Test Item Value Reference Range Interpretation Comme nts PHOSPHORUS (test code = 1456675890) 4.9 mg/dL 2.5-5.0 Lab Interpretation (test cod e = 77019-5) Normal [facility] NorthwestLIPASE2024-04-20 22:06:17* Test Item Value Reference Range Interpretation Comme nts LIPASE (test code = 2319058704) 204 U/L 0-220 Lab Interpretation (test cod e = 92970-7) Normal [facility] WITH [id number] 21:54:56* Test Item Value Reference Range Interpretation [...] g/dL 31.2-35.0 H RDW-SD (test code = 53247-9) 38.1 fL 38.5-51.6 L RDW-CV (test code = 788-0) 11.8 % 12.1-15.4 L PLT (test code = 777-3) 235 150-328 MPV (test code = 93092-1) 11.1 fL 9.8-13.0 NRBC/100 WBC (test code = 1729349978) 0.0 0.0-10.0 NRBC x10^3 (test code = 4400562325) See_Comment [Automated message] The system which generated this result transmitted reference range: 10*3/?L. The reference range was not used to interpret this result as normal/abnormal. GRAN MAT (NEUT) % (test code = 770-8) 80.3 % IMM GRAN % (test code = 9264315158) 0.60 % LYMPH % (test code = 736-9) 8.7 % MONO % (test code = 5905-5) 10.0 % EOS % (test code = 713-8) 0.2 % BASO % (test code = 706-2) 0.2 % GRAN MAT x10^3(ANC) (test code = 5995790951) 10.18 10*3/uL 1.99-6.95 H IMM GRAN x10^3 (test code = 9966258293) 0.07 10*3/uL 0.00-0.06 H LYMPH x10^3 (test code = 731-0) 1.11 10*3/uL 1.09-3.23 MONO x10^3 (test code = 742-7) 1.27 10*3/uL 0.36-1.02 H EOS x10^3 (test code = 711-2) 0.03 10*3/uL 0.06-0.53 L BASO x10^3 (test code = 704-7) 0.03 10*3/uL 0.01-0.09 Lab Interpretation (test code = 00898-1) Abnormal [facility] NorthwestXR CHEST 1 [id number] 21:49:58EXAM: XR CHEST 1 2023 4:38 PM HISTORY: 58 years-old Male with r/o infilrate . TECHNIQUE: Portable AP view of the chest. COMPARISON: 04/21/2023 FINDINGS: Lines and tubes: None. Cardiomediastinal: The cardiomediastinal silhouette is unremarkable. Lungs and pleura: The lungs are clear. No focal consolidation,pneumothorax, or pleural effusion is seen. Included osseous structures show no acuteabnormality.[facility] NorthwestCT ABDOMEN PELVIS W [id number] 21:45:03EXAM: CT ABDOMEN AND PELVIS WITH CONTRAST [...] change involving the spine, sacroiliac jointsand hips ispresent.[facility] NorthwestCT TRAUMA HEAD WO [id number] 21:38:37FULL RESULT: Examination: CT TRAUMA HEAD WO CONTRAST on 2023 4:16 PM Clinical Indication: Headache, hypertensive Comparison: None Technique: Noncontrast imaging was obtained from base to vertex.Findings: The sulci and ventricles were unremarkable. There may be subtlewhite matter microvascularischemic changes, notably in the anteriorperiventricular region, but there is no evidence for hemorrhage or otherclearly acute intracranial process.[facility] NorthwestLaiaic Acid Whole Rnbbu9750-46-79 21:30:25* Test Item Value Reference Range Interpretation Comme [facility] LACTIC ACID (test code = 9865075438) 1.58 mmol/L 0.50-2.20 Lab Interpretation (test cod e = 54558-5) Normal [facility] Care Venous Blood [id number] 21:30:25 * Test Item Value Reference Range Interpretation Comme nts PH (test code = 8237904816) 7.34 7.32-7.42 PCO2 NOY (test code = 9151063596) 45 41-51 PO2 NOY (test code = 8251705673) 24 25-40 L HCO3 NOY (test code = 0167520574) 24 24-28 AC VBE(BEAKER) (test code = 3311147521) -1.9 mEq/L Lab Interpretation (test cod e = 64884-7) Abnormal [facility] GLUCOSE (AUTOMATED)2023 20:26:17* Test Item Value Reference Range Interpretation Comme nts POCT GLU (test code = 5597867407) 165 mg/dL 70-110 H Lab Interpretation (test cod e = 82291-1) Abnormal [facility] GLUCOSE(AGE >30DAYS)2023 20:26:00* Test Item Value Reference Range Interpretation Comme nts POCT Glu (age>30days) (test code = 3342) 165 mg/dL 70-110 A Lab Interpretation (test cod e = 49662-5) [facility] 18:15:28* Test Item Value Reference Range Interpretation Comme nts POCT GLU (test code = 5187738486) 218 mg/dL 70-110 H Lab Interpretation (test cod e = 64022-5) [facility] 15:35:23* Test Item Value Reference Range Interpretation Comme nts POCT GLU (test code = 3509507795) 186 mg/dL 70-110 H Lab Interpretation (test cod e = 17099-8) [facility]23 02:57:57* Test Item Value Reference Range Interpretation Comme nts POCT GLU (test code = 3998196097) 82 mg/dL 70-110 Lab Interpretation (test cod e = 44107-2) Normal [facility] GLUCOSE (AUTOMATED)2023-04-23 00:33:51* Test Item Value Reference Range Interpretation Comme nts POCT GLU (test code = 1824665874) 181 mg/dL 70-110 H Lab Interpretation (test cod e = 43474-5) [facility]23-04-22 22:54:22* Test Item Value Reference Range Interpretation Comme nts POCT GLU (test code = 8326042196) 127 mg/dL 70-110 H Lab Interpretation (test cod e = 20306-8) [facility]23-04-22 20:37:54* Test Item Value Reference Range Interpretation Comme nts POCT GLU (test code = 7673880672) 230 mg/dL 70-110 H Lab Interpretation (test cod e = 42783-0) [facility]2023-04-22 17:46:23* Test Item Value Reference Range Interpretation Comme nts POCT GLU (test code = 0631108492) 144 mg/dL 70-110 H Lab Interpretation (test cod e = 71597-4) [facility]23-[facility]-22 13:42:26* Test Item Value Reference Range Interpretation Comme nts POCT GLU (test code = 6839807721) 229 mg/dL 70-110 H Lab Interpretation (test cod e = 36778-4) Abnormal [facility] GLUCOSE (AUTOMATED)2023-04-22 03:33:49* Test Item Value Reference Range Interpretation Lianet garcía POCT GLU (test code = 9875598309) 222 mg/dL 70-110 H Lab Interpretation (test cod e = 42836-8) Abnormal [facility] GLUCOSE (AUTOMATED)2023-04-22 01:36:03* Test Item Value Reference Range Interpretation Lianet garcía POCT GLU (test code = 6142679473) 282 mg/dL 70-110 H Lab Interpretation (test cod e = 76374-4) Abnormal [facility] NorthwestEchocardiogram dobutamine stress test 2023-04-21 22:26:30* Test Item Value Reference Range Interpretation Lianet garcía Height (test code = 0376399585) 63 in Weight (test code = 4984165052) 130 lbs Systolic BP (test code = 0554641138) 122 mmHg Diastolic BP (test code = 6315493205) 81 mmHg Heart Rate (test code = 9080717390) 105 bpm BSA (test code = 7201454899) 1.[address] Depresion (mm) (test code = 3258359683) [address] Depression (mm) (test code = 2402252043) 0 mm Radiology Study observation (narrative) (test code = 29404-8) GINA (test code = GINA) Table formatting [...] left ventricular wall motion is globally hyperkinetic. [facility] NorthwestTransthoracic echo (TTE)2023-04-21 18:05:03* Test Item Value Reference Range Interpretation Comme nts Height (test code = 5990498634) 63 in Weight (test code = 1159778141) 130 lbs Systolic BP (test code = 5584691403) 114 mmHg Diastolic BP (test code = 1614335412) 75 mmHg Heart Rate (test code = 9245946910) 98 bpm BSA (test code = 9059566532) 1.61 m2 LVIDD (test code = 7322561596) 4.00 cm Left Ventricular End Diastolic Volume by Teichholz Method (test code = 1981755) 70.0 mL IVS (test code = 6257675481) 1.07 cm Interventricular Septum Diastolic Thickness by 2D (test code = 5656738) 1.07 cm LVPWD (test code = 6516847398) 1.05 cm PW (test code = 2499913901) 1.05 cm 0.6-1.1 EF(Teich) (test code = 2218819220) 62.60 % LVIDS (test code = 4809103557) 2.70 cm Left Ventricular End Systolic Volume by Teichholz Method (test code = 5132040) 26.2 mL FS (test code = 2128997949) 33 % EF - 2D (test code = 03415984) 62.60 % Ao root diam (test code = 1017349586) 3.70 cm Aortic root (test code = 4180642257) 3.7 cm Ao root annulus (test code = 8293065951) 3.7 cm LA size (test code = 3157275458) 3.2 cm LVOT diameter (test code = 9487490686) 2.08 cm LVOT area (test code = 9836195713) 3.40 cm2 MV Peak E Nima (test code = 4922138260) 48.3 cm/s E wave decelartion time (test code = 0568547884) 0.15 s MV Peak A Nima (test code = 7516396939) 74.4 cm/s E/A ratio (test code = 6060676923) 0.65 ratio MV Prop V (test code = 2911815678) 21.20 cm/s LAV(MOD-sp4) (test code = 1336491476) 35.30 mL Tapse (test code = 4824890583) 1.73 cm LVOT stroke volume (test code = 7124796468) 45.20 cm3 LVOT peak nima (test code = 5669449724) 79.0 cm/s LVOT mn grad (test code = 1175430782) 1.3 mmHg AV LVOT peak gradient (test code = 9630100974) 2.50 mmHg LVOT peak VTI (test code = 9922483095) 13.2 cm LV V1 mean (test code = 4996147185) 52.90 cm/s Ao peak nima (test code = 3416781021) 83.8 cm/s AV area peak nima (test code = 6466391576) 3.2 cm2 Ao max PG (test code = 8390061251) 2.80 mm[Hg] AV peak gradient (test code = 4426498268) 2.8 mmHg LA Volume Index (BP) (test code = 6072126504) 25.9 mL/m2 LA volume (BP) (test code = 2951920394) 41.8 mL LAV(MOD-sp2) (test code = 4471372367) 40.90 mL A4C EF (test code = 9223999448) 54.40 % EF(sp4-el) (test code = 2647649920) 55.00 % SV(MOD-sp4) (test code = 8690114290) 53.10 mL SV(sp4-el) (test code = 5762355656) 55.60 mL Radiology Study observation (narrative) (test code = 43530-8) GINA (test code = GINA) ?Left?Ventricle: Left [...] enhancing agent used. Patient exhibited sinus rhythm. [facility] GLUCOSE (AUTOMATED)2023-04-21 17:48:26* Test Item Value Reference Range Interpretation Comme nts POCT GLU (test code = 2155702450) 198 mg/dL 70-110 H Lab Interpretation (test cod e = 74638-9) [facility]normal [facility] NorthwestXR CHEST 1 [id number] 15:12:07EXAM: XR CHEST 1 VW HISTORY: NSTEMI COMPARISON: None. FINDINGS: Small bandlike densities in the left midlung have more the appearance ofatelectasis than pneumonia. The lungs are well expanded and clearotherwise. The heart and great vessels are normal except for calcium in thearch of the aorta.[facility] GLUCOSE (AUTOMATED)2023-04-21 09:39:57* Test Item Value Reference Range Interpretation Comme nts POCT GLU (test code = 7833641223) 243 mg/dL 70-110 H Lab Interpretation (test cod e = 03837-1) Abnormal [facility] NorthwestFerritin Dtsit9508-09-35 07:28:27* Test Item Value Reference Range Interpretation Comme nts FERRITIN (test code = 4005781522) 76.3 ng/mL 18.0-464.0 GINA (test code = GINA) Biotin has been reported to cause a negative bias, interpret results relative to patient's use of biotin. Lab Interpretation (test code = 00911-9) Normal [facility] NorthwestGlycosylated Hemoglobin (A1C)2023-04-21 07:25:47* Test Item Value Reference Range Interpretation Comme nts HGB A1C (test code = 4548-4) 12.6 % 4.0-5.7 H GINA (test code = GINA) Reference RangesNormal: <5.7%Prediabetes: 5.7 - 6.4%Diabetes: > 6.5% Lab Interpretation (test code = 86344-7) Abnormal [facility] NorthwestThyroid Stimulating Xnhmlat5039-39-82 07:24:07 * Test Item Value Reference Range Interpretation Comme nts TSH (test code = 6693545424) 2.56 See_Comment [Automated messa ge] The system which generated this result transmitted reference range: 0.45 - 4.70 mIU/L. The reference range was not used to interpret this result as normal/abnormal. Lab Interpretation (test code = 44375-2) Normal [facility] NorthwestPhosphorus2023-12-27 06:52:06* Test Item Value Reference Range Interpretation Comme nts PHOSPHORUS (test code = 0601667427) 3.2 mg/dL 2.5-5.0 Lab Interpretation (test cod e = 12350-6) Normal [facility] NorthwestCritical Nmwe6343-89-58 02:54:15NSergio chin MD ? ? 04/20/2023 ?8:54 PMCritical Care Performed by: Sergio Aponte MDAuthorized by: Sergio Aponte MD ?Critical care provider [...] separately billable procedures and treating other patients. [facility] NorthwestTrhendersonville medical centerdian [id number] 02:30:18* Test Item Value Reference Range Interpretation Comme nts TROPONIN I (test code = 1730804112) 0.154 ng/mL <=0.034 H GINA (test code [...] of biotin. Lab Interpretation (test code = 84154-5) Abnormal [facility] NorthwestETHANOL2023-12-27 02:24:46 ALCOHOL<10mg/dL04/20/2023 8:24 PM [facility]<10 Lqnzhprq97-302 Toxic>100 Depression of KIER TENDER>400 Fatalities ReportedUnCHRISTUS [facility] – Medical CenterCOMP. METABOLIC PANEL (53726)2023-04-21 02:19:15* Test Item Value Reference Range Interpretation Comme nts NA (test code = 4714475682) 129 mmol/L 135-145 L K (test code = 2355791147) 3.5 mmol/L 3.5-5.0 CL (test code = 2357046647) 94 mmol/L 98-108 L CO2 TOTAL (test code = 0392693500) 28 mmol/L 23-31 AGAP (test code = 0257797795) 7 2-16 BUN (test code = 8103179957) 26 mg/dL 7-23 H GLUCOSE (test code = 1367096424) 314 mg/dL 70-110 H CREATININE (test code = 6627124031) 0.92 mg/dL 0.60-1.25 TOTAL BILI (test code = 2103316856) 0.8 mg/dL 0.1-1.1 CALCIUM (test code = 8391189373) 8.5 mg/dL 8.6-10.6 L T PROTEIN (test code = 3255884276) 6.0 g/dL 6.3-8.2 L ALBUMIN (test code = 3014632691) 3.3 g/dL 3.5-5.0 L ALK PHOS (test code = 8659330679) 95 U/L 34-122 ALTv (test code = 1742-6) 23 U/L 5-50 AST(SGOT) (test code = 8090320486) 30 U/L 13-40 eGFR (test code = 25314-5) 98.2 mL/min/1.73m2 CKD-EPI eGFR (2020). Assuming creatinine has been stable day-to-day for at least three months, the eGFR indicates Category G1 (>= 90 mL/min/1.73 m2) Lab Interpretation (test code = 94466-8) Abnormal [facility] WITH [id number] 02:03:54* Test Item Value Reference Range Interpretation [...] g/dL 31.2-35.0 H RDW-SD (test code = 12474-7) 36.2 fL 38.5-51.6 L RDW-CV (test code = 788-0) 11.6 % 12.1-15.4 L PLT (test code = 777-3) 178 See_Comment [Automated Writer's Bloqa ge] The system which generated this result transmitted reference range: 150 - 328 10*3/?L. The reference range was not used to interpret this result as normal/abnormal. MPV (test code = 34993-3) 10.9 fL 9.8-13.0 NRBC/100 WBC (test code = 9116664779) 0.0 See_Comment [Automated Dedi[employer] ssage] The system which generated this result transmitted reference range: 0.0 - 10.0 /100 WBCs. The reference range was not used to interpret this result as normal/abnormal. NRBC x10^3 (test code = 2205593950) See_Comment [Automated Writer's Bloqa ge] The system which generated this result transmitted reference range: 10*3/?L. The reference range was not used to interpret this result as normal/abnormal. GRAN MAT (NEUT) % (test code = 770-8) 81.3 % IMM GRAN % (test code = 0271588218) 0.30 % LYMPH % (test code = 736-9) 10.5 % MONO % (test code = 5905-5) 7.6 % EOS % (test code = 713-8) 0.1 % BASO % (test code = 706-2) 0.2 % GRAN MAT x10^3(ANC) (test code = 9606724080) 9.55 10*3/uL 1.99-6.95 H IMM GRAN x10^3 (test code = 4631310210) 0.04 10*3/uL 0.00-0.06 LYMPH x10^3 (test code = 731-0) 1.23 10*3/uL 1.09-3.23 MONO x10^3 (test code = 742-7) 0.89 10*3/uL 0.36-1.02 EOS x10^3 (test code = 711-2) 0.06-0.53 L BASO x10^3 (test code = 704-7) 0.01-0.09 Lab Interpretation (test code = 78181-5) Abnormal [facility] NorthwestPOCT GLUCOSE (AUTOMATED)2023-04-21 01:55:51* Test Item Value Reference Range Interpretation Comme [facility] POCT GLU (test code = 2321848863) 408 mg/dL 70-110 H Lab Interpretation (test cod e = 53790-3) Abnormal [facility] NorthwestCOMPREHENSIVE METABOLIC [id number] 05:07:51* Test Item Value Reference Range Interpretation Comme [facility] GLUCOSE (test code = 2217) 224 MG/DL 70-99 H BUN (test code = 2208) 22 MG/DL 6-20 H CREATININE (test code = 2214) 0.71 MG/DL 0.80-1.40 L eGFR (2020 CKD-EPI) (test code = 42086) 109 ML/MIN/1.73 >60 CALC BUN/CREAT (test code [...] code = 2219) 24 U/L 5-50 LIPID [id number] 05:07:51* Test Item Value Reference Range Interpretation [...] SPECIMENS. FOR MOREINFORMATION, SEE CLIENT ANNOUNCEMENT AT [email or web address] [email or web address] RATIO LDL/HDL (test code = 2238) 1.72 RATIO <3.55 PSA, [id number] 05:07:10* Test Item Value Reference Range Interpretation Comme nts PSA, TOTAL (test code = 2606) 19.70 NG/ML See_Comment H NOTE: Methodolog y is Ashley Jasmina Electrochemiluminescence Immunoassay traceable to WHO reference standard 96/760. UNLESS OTHERWISE INDICATED, ALL TESTING PERFORMED [facility] CENTERLINTalento al [facility] [address] [place] [address] CREDIT CHARGE AUTHORIZER: DUSTIN COLMENARES M.D. CLIA NUMBER [id number] [place]. [id number] [Automated message] The system which generated this result transmitted reference range: <=4.00. The reference range was not used to interpret this result as normal/abnormal. HEMOGLOBIN [id number] 02:46:58* Test Item Value Reference Range Interpretation Comme nts HEMOGLOBIN A1c (test code = 98272) 11.0 % 4.2-5.6 H [employer] GUIDELINES FOR HGB A1C: [...] OR LABORATORY CONSULTATION. CBC W/AUTO DIFF WITH TNKYUPDPM8585-05-80 02:32:39* Test Item Value Reference Range Interpretation [...] = 1065) 0.0 /100 WBC'S See_Comment [Automated messa ge] The system which [...] 0.00-0.10 ABS NUCLEATED RBCS (test code = 79092) 0.00 K/UL 0.00-0.11 Consult Notes Date/Time Note Provider Source 2023-08-23 11:10:50 6634-79-33S52:10:50Associated Order(s): CONSULT ADULT PHYSICAL THERAPY Patient agreeable [...] and WeaknessWeight Bearing Precaution: NAGeneral Precautions: General, Fall,Jensen catheterBracing/Cast present or required:N/APMH:Past Medical History:Diagnosis DateHTN (hypertension)Uncontrolled diabetes mellitus with hyperglycemiaPSH: History reviewed. No pertinent surgical history.Prior Living Situation: Per patient he lives at his friends.DME: No devicePrior level of Mobility: community ambulationSuspected ischemic or hemorraghic stroke:NoSubjective: Patient agreed to participate with PT. Patient reported that his jensen hurts.Nurse was notified.Patient/Family Goals: To get better and go home.Patient/Family verbalizes understanding of condition: YesPAIN:Pain when jensen is moved.COMMUNICATIONPrimary Language: EnglishAble to Verbalize needs: [...] Time in Minutes: 20 minJesica Murphy,PTTx License: [id number] Components in Determining Evaluation LevelHistory:No personal factors or comorbidities: No (11338)1-2 personal factors and/or comorbidities: Yes (86531)3 or more personal factors and/ or comorbidities: No (50441)Examination of Body System(s)Addressing 1-2 elements: Yes (29123)Addressing a total of 3 or more elements: No (61817)Addressing a total of 4 or more elements: No (39534)Clinical PresentationStable: Yes (68954)Evolving: No (01553)Unstable: No (98210)Clinical Decision Making (Complexity)Low: No (22490)Moderate: Yes (11315)High: No (80559) 81381-0Hdhljcv wlwsSW6093-25-32G29:45:58Consult noteTXT1.2.840.449985.1.13.104.2.7.2. 728381|[id number] for patient rvdv03999-7Agdxtve noteLNNARRATIVEFormatted C-CDA narrative [id number] G Castro PT[address] MiubTisfpzxubOddpuiiygXAMY9535674998H ZTLGFWDDEIDDPUUPRIFRB5665-67-36M20:45 :581.2.840.263325.1.72.3.15|1.2.840.1 65466.1.13.104.2.7.2.727879_[id number] 7 Jesica Murphy PT [facility] 2023-08-15 10:01:34 5076-24-02D58:01:34Associated Order(s): CONSULT CARDIOLOGY [facility] Cardiology Consult NotePatient: Saturnino Shelley of : 1965MRN: [id number] of service: 4[facility] Care Physician: Erik Garcia COMPLAINT:Chief ComplaintPatient [...] 25 mL, Slow IV Push, PRN, Jerry Fields DOglucagon (GLUCAGEN DIAGNOSTIC KIT) injection 1 mg, [...] other specified complicationElevated troponins: 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 Ample opportunity was offered and encouraged to ask questions during this visit and patient appreciated the answers given by me and verbzalised statisfcation in the answers given.Thank you for allowing us to participate in the care of Saturnino Maldonado.If you have any questions or concerns please feel free to call our office at [phone]. I would be happy to be of further assistance for Saturnino Maldonado wellbeing.Voice recognition software has been used to create portions of this document. An attempt to proofread has been made to minimize errors. Please do not hesitate to call with any questions.Nerissa Ronquillo Professor, Division of CardiologyCorp[facility]i [facility] 29794-8Rbitnsy hhuxYY8902-81-48U66:32:50Consult noteTXT1.2.840.922770.1.13.104.2.7.2. 051895|[id number] for patient ahvk34960-0Jmshuht noteLNNARRATIVEFormatted C-CDA narrative text[address] WwmxVcmomesnhCrfezxssaGLLI4100041901H DRCVWSHTLSRCUXQLRJYNE5495-58-14I88:32 :501.2.840.981515.1.72.3.15|1.2.840.1 33095.1.13.104.2.7.2.727879_[id number] 9 [facility] 2023-04-21 08:46:48 6609-84-73G36:46:48Associated Order(s): CONSULT ENDOCRINOLOGY Endocrinology Consult NoteConsultation requested by: Service: William Lemus for Consultation: DiabetesDate of Service: 04/21/23HPI57 year old male with a PMH of HTN, T2DM, Fmhx premature CAD who presented with complaints of polyuria and weakness at [facility] ER. Patient transferred to [facility] for further work up.Endocrinology consulted for diabetes managementDiabetes Type and year diagnosed: 2011, type 2Diabetes complications: noneHx of DM regimen: no meds for 3 yearsCompliance: -BG monitoring? -Hypoglycemia hx: noHypoglycemia unawareness? noSymptoms of hyperglycemia: polyuriaLiving situation and support: homeless, lives with different relativesDiabetes doctor: [place] in [place], has not seen for few yearsFamily hx [...] ulcers on the dorsal aspect, + onychomycosis.LABORATORYRecent Labs12/26/065472PFY 2.56Recent LabsHGBA1C 12.6*BMPRecent Labs04/21/2303NA 129* 130*K 3.5 [...] g, ONCEpotassium chloride in water, 10 mEq, M7Ozbioyjm lispro (human), , TID MEALS+HStamsulosin, 0.4 mg, DAILYIV meds:heparin 25,000 Units/250 mL IV infusion for ACS, Last Rate: 800 Units/hr (04/21/23 0350)PRN meds:dextrose 50 % in water (D50W), 25 mL, PRNdextrose 50 % in water (D50W), 25 mL, PRNglucagon, 1 mg, PRNglucagon, 1 mg, PRNacetaminophen, 650 mg, F0NGICutcfzyw 1000 unit/mL, 3,000 Units, FOR REBOLUSINGheparin 25,000 Units/250 mL IV infusion for ACS, 700 Units/hr, TITRATEASSESSMENT and PLANProblem List:DM type 2, A1c 12.6, not on insulin at homeStress hyperglycemiaNSTEMIHTNUrinary retentionComments: 57 year old male with a PMH of HTN, T2DM, Fmhx premature CAD who presented with complaints of polyuria and weakness at [facility] ER. Patient transferred to [facility] for further work up.Endocrinology consulted for diabetes [...] pay, need NPH and Regular insulin to [facility] ([employer])-Need insulin vials, syringe needles, [...] I made directly in the note during revision.Rita Cabrera MDAabbie ProfessorDivision of Ftgwayrrkpozf88497-5Txuwkvv [id number], Reba1.2.840.171639.1.13.104.2.7.2.836 186DjqzurtjnKyxhDT6303-78-36H21:11:24 Consult noteTXT1.2.840.238918.1.13.104.2.7.2. 146288|[id number] for patient qodq74710-5Ttfthsk noteLNNARRATIVEFormatted C-CDA narrative textIM-ENDOCRINOLOGY,DIABETES & METABOLISMIM-ENDOCRINOLOGY,DIABETES & METABOLISMKAISER PERMANENT[facility] - [address] FqiiVkjtqpbaoFyeoshdepEVCN2655712475U NRFHRABSXJIDGUXPEYBGY8864-05-53W13:11 :241.2.840.599368.1.72.3.15|1.2.840.1 48683.1.13.104.2.7.2.727879_[id number] 0 IM-ENDOCRINOLOGY,D IABETES & METABOLISM [facility] - [facility] History and Physical Notes Date/Time Note Provider Source 2023-08-21 22:53:53 5892-84-30K25:53:53 [facility] Hospitalist Admission H&PDate of Service: 4CHIEF COMPLAINT: Postobstructive renal failureHISTORY OF PRESENT ILLNESSSaturnino Maldonado is a 58 year old male who presents with postobstructive renal failure. Patient was recently in the hospital few days ago with acute renal insufficiency. Patient was found to have bladder retention. Patient had a Jensen catheter placed at that time and renal function improved. Patient was discharged on Flomax. Patient states that Jensen catheter was removed prior to discharge. Since [...] bladder retention once again with obstructive uropathy. Jensen catheter was placed and patient immediately had 2 L of urine output. Patient had an additional 2 L of urine output in his Jensen catheter was clamped. Patient was given 2 L of IV fluid boluses. Patient was also found to have hyponatremia. Patient will be admitted to the hospital for close monitoring of urine output and renal function. Nephrology will be consulted. Patient was given the application for [facility] on last admission and will need to get this filled so he can see urology. Continue with Flomax at this time.PAST MEDICAL HISTORYPast Medical History:Diagnosis DateHTN (hypertension)Uncontrolled diabetes mellitus with hyperglycemiaBladder retentionPAST SURGICAL HISTORYCircumcision in [facility] CenterLLERGIESNo Known AllergiesMEDICATIONSCurrent home medication list [...] Year: 1Unstable Housing in the Last Year: [employer]10 systems negative except per HPIPHYSICAL EXAMINATIONBP (!) [...] without Contrast, 08/21/2023 8:00 PM.Ordering Physician: COSME CARDONA.History: Bowel obstruction suspected Stone suspected.Comparison: CT abdomen [...] Cessation: (Z71.6)Tobacco user?: NOPatient will require observationTexas COMPUTATIONAL SCIENCES PROFESSOR [place] [address]-1Qwevsdz and physical tevwNU7386-22-26I27:14:43History and physical noteTXT1.2.840.533539.1.13.104.2.7.2.7 22650|[id number] for patient njoi33807-0Klufnpb and physical noteLNNARRATIVEFormatted C-CDA narrative textUT32 [address] StreetAikeZckykvsuzOkkwarlhhXFUN1260180778GD HDJMFNLPXCLVRDXNZMRS0221-55-23J28:14:4 31.2.840.645651.1.72.3.15|1.2.840.1143 50.1.13.104.2.7.2.727879_[id number] [facility] 2023 22:58:21 0591-95-77V95:58:21 MEDICINE MEGADC ADMIT H&PDate of Service: 4CHIEF COMPLAINT: elevated blood pressure, fatigueSubjectiveHistory of Present Sweernk17 yo male with pmh of HTN, DM, [...] DateHTN (hypertension)Uncontrolled diabetes mellitus with hyperglycemiaPast Surgical Snksjlr0315 Right Humerus RepairLeft eye surgeryFamily HistoryProblem Relation [...] failure: post-obstructive cause-- s/p foleyUrinary obstruction: s/p jensen. Noted to have an enlarged prostate-- PSA is pendingNSTEMI-- Will continue to trend troponin levelHypokalemia:-- Will replace potassium supplementProphylaxis: DVT- Contraindicated: Cranial/GI Bleeding or other Hemorrhage presentCode Status: Presumed Full Code 36368-0Duihyhs and physical xlpbFZ2463-95-29U39:25:09History and physical noteTXT1.2.840.370827.1.13.104.2.7.2.7 10292|[id number] for patient zjyp02977-3Nglzneb and physical noteLNNARRATIVEFormatted C-CDA narrative textEMCARE EMERGENCY PHYSICIAN STAFFEMCARE EMERGENCY PHYSICIAN STAFF[address] [id number] MCKECGKRXDOBLLJMTZER1567-04-90T76:25:0 91.2.840.173484.1.72.3.15|1.2.840.1143 50.1.13.104.2.7.2.727879_[id number] [facility] EM[facility] PH[facility]IC[facility] STAFF [facility] 2023-04-21 00:39:12 9323-24-79F98:39:12 MCAWHITE Admit H&PPCP: Erik Willoughby of Service: 3CHIEF COMPLAINT: PolyuriaHISTORY OF PRESENT ILLNESSOscgabino Maldonado is a 57 year old male with a PMH of HTN, T2DM, Fmhx premature CAD who presented with complaints of polyuria and weakness at [facility] ER. Patient transferred to [facility] for further work up.Patient reports that his [...] or drug use. Family history significant for KS in father in his 40s. Currently not [...] not use drugs.Family history: family history includes KS (myocardial infarction) in his father; No Significant [...] CM to help with resources.Plan:- [facility] to [facility]- Trend Troponin to peak- Heparin gtt- [...] to be > 300, plan for coude jensen placement. Reported BPH per patient, with weak stream and inability to completely void.- Weight base Basal, bolus insulin with SSI- Endo consult for diabetic education- Repeat PVR in am, if >300, plan for jensen placement, if failed, consult urology help for coude placement.- Start FlomaxPain ControlledTylenolProphylaxis: DVT- heparinStress Ulcer: no indication for prophylaxisCode Status: addressed: Full Vladimir Fuchs DOInternal Medicine DepartmentY Catrachito Alvarez Team ssociated attestation - Bret Banda MD - 04/21/2023 2:47 PM CST I reviewed patient's chart, vitals, lab work, current medications and other diagnostic studies. I saw and examined the patient today and agree with the detailed note. I actively participated in the decision-making process.Nerissa Ronquillo ProfessorDivision of Tajjlbwcvx65965-4Tpgedjv and physical cmcyUQ5753022Quoz, Rizwan1.2.840.456460.1.13.104.2.7.2.83 8053PpskXgfsjkYB4837-78-73H66:47:54His tory and physical noteTXT1.2.840.858780.1.13.104.2.7.2.7 78573|3211171600OWCyxystaxe for patient fqlg34240-8Oefvrmk and physical noteLNNARRATIVEFormatted C-CDA narrative text[address] IcucMqnvhzwztYsdpsetwyIBYU6367602966HQ JGSSCDHQCCFEAWWDKCSO0734-50-27C67:47:5 41.2.840.080872.1.72.3.15|1.2.840.1143 50.1.13.104.2.7.2.727879_[id number] [facility] Notes Date/Time Note Provider Source 2023-08-24 16:07:54 6626-11-74R57:07:54Formatting of this no te might be different from the original.Problem: PainGoal: Control of pain at or below patient's documented comfort goal08/24/2023 1607 by Kalina Georges RNOutcome: Resolved08/24/2023 1313 by Kalina Georges RNOutcome: Adequate for dischargeGoal: Reduction in pain sensation08/24/2023 1607 by Kalina Georges RNOutcome: Resolved08/24/2023 1313 by Wierzbicki, Kalina J, RNOutcome: Adequate for dischargeProblem: Activity IntoleranceGoal: Improved [...] by Kalina Georges RNOutcome: Adequate for discharge 96534-7Gkhj of care zlzgFU3560-42-06D23:08:02Plan of care noteTXT1.2.840.130285.1.13.104.2.7.2.492340|20 85174672QRHzcvlzxgy for patient svyq62132-4UyhdHJKBANGXXFFNfhbfpvfr C-CDA narrative mgmy971406021OxxyrKalina Georges RN[address] PxeuJmpgfazfzPkztblfgsAUGT5668643804ZPMOOJMMYT XAFJOZXRPTBF1712-26-63E62:08:021.2.840.804226. 1.72.3.15|1.2.840.396877.1.13.104.2.7.2.672024 _[id number] Kalina Georges RN [facility] 2023-08-24 13:14:04 2352-80-05X05:14:04Formatting of this no te might be different [...] ofGoal: Absence of fallsOutcome: Adequate for discharge 02515-2Tiou of care qeyvFH6034-16-18F86:14:16Plan of care noteTXT1.2.840.272350.1.13.104.2.7.2.202911|20 11128252QISmspzxyxz for patient fqve82079-6CjuuRUEBULRJWPZTyazzlnai C-CDA narrative textUT[address] MryxOqoibobjzDgqguyvtzMKCY1129787935LOVJQQMPLI RSQBBOVONACD3025-87-18G36:14:161.2.840.742936. 1.72.3.15|1.2.840.417050.1.13.104.2.7.2.446040 _[id number] [facility] 2023-08-23 07:12:12 9429-89-32I34:12:12Formatting of this no te might be different [...] ofGoal: Absence of fallsOutcome: Progressing as expected 71223-3Qoof of care gvajNG3716-19-34Q30:12:15Plan of care noteTXT1.2.840.175095.1.13.104.2.7.2.284111|20 76973384REPixgagkwd for patient fxml66176-1BsjhTAPPEKYQAQNDckoxyzav C-CDA narrative nxdg965591079Vctocdp G Cantu RNUT[address] [id number] TINOCOFRWGJYINAQLJ1643-18-39C21:12:151.2.840.151326. 1.72.3.15|1.2.840.855229.1.13.104.2.7.2.555139 _[id number] Abi Dominic Beverley [facility] 2023-08-22 22:07:54 0506-31-18A81:07:54Formatting of this no te might be different [...] ofGoal: Absence of fallsOutcome: Progressing as expected 18553-0Stil of care fcsmDA9241-15-03G34:08:05Plan of care noteTXT1.2.840.043380.1.13.104.2.7.2.742625|20 89527571GTKiooxqtaz for patient sufb52720-4TcruTJJWMCVEQQLLoxyrfbxl C-CDA narrative ayla193185343FltyvqzvTammy Sweeney RN[address]TXTX7755577555USMOHINDER TINOCOBVCTJGRJJHIB5597-62-32Y75:08:051.2.840.221309. 1.72.3.15|1.2.840.053342.1.13.104.2.7.2.722877 _[id number] Tammy Sweeney RN [facility] 2023-08-22 08:41:53 7427-51-94W01:41:53Formatting of this no te might be different [...] DeficitGoal: Adequate nutritional intakeOutcome: Progressing as expected 54753-4Roup of care wqxuYC7181-78-66A38:42:03Plan of care noteTXT1.2.840.636250.1.13.104.2.7.2.860022|20 34553701QNQyefqqrpt for patient knxx05859-3VemnKZQGNCNZWQQXztmawquj C-CDA narrative owto023647863Nnejwt A Webb RN[address] SluuRglonhamtFwgojslhoPBOP9255387774KYFRQWUSJU EFDDFFAJQXMD3127-60-78Z97:42:031.2.840.565347. 1.72.3.15|1.2.840.899034.1.13.104.2.7.2.544363 _[id number] Mihaela Lopez RN [facility] 2023-08-22 03:26:01 5306-18-05Y75:26:01Formatting of this no te might be different [...] DeficitGoal: Adequate nutritional intakeOutcome: Progressing as expected 73000-8Seju of care wnmpIY5271-50-75I36:26:03Plan of care noteTXT1.2.840.423397.1.13.104.2.7.2.612176|20 34452563CZYtjwaqoni for patient cuaw87951-4SenkXRFXCNYHCZTVfmsydlse C-CDA narrative reda169654070Suu S Bland RNUT[address] StreetPzdfXuflqqxsaIvsnbuaswWLWY0016002964YXFIRNOSPP JAZERVRZPDDM6556-66-16Z82:26:031.2.840.880109. 1.72.3.15|1.2.840.004919.1.13.104.2.7.2.909975 _[id number] Angeline Claudio RN [facility] 2023-08-21 23:32:26 7473-61-19U93:32:26Formatting of this no te might be different from the original.Patient admitted to [facility] 2101 for diagnosis of ELIEZER, urinary obstructionPatient agrees to admission, discussed plan of care with patient and family.Patient is awake, alert, oriented, resp reg unlabored, color appropriate for race, PIV intactNo adverse reaction to medications administered while in EDBelongings [place] [address]-0Fylqtpnnx department SpufLE2369-74-51N56:33:05[facility] NoteTXT1.2.840.078453.1.13.104.2.7.2.561784|20 22790909LFRaztefcre for patient gkhf72232-9PiriUHLUKZVUYZAAdalxwuia C-CDA narrative rchb460223522Cgnf E Linkes RN[id number] RFELMJZCWUUH1168-45-55Y72:33:051.2.840.016823. 1.72.3.15|1.2.840.131767.1.13.104.2.7.2.017614 _[id number] Chela Reyes [facility] 2023-08-21 19:43:36 7190-15-52J56:43:36Formatting of this no te might be different from the original.Pt C/O RLQ pain that started yesterday, pt states last BM 08/16/2023. Pt denies any urinary, nausea or vomiting 14399-8Cbycpvppe department Triage ugzfOE6446-23-59P99:45:01[facility] Triage noteTXT1.2.840.690388.1.13.104.2.7.2.463359|20 17212572XNCrnaktkes for patient gvvo61503-7Iscozeogv department NoteLNNARRATIVEFormatted C-CDA narrative tsgg943928146Plmijq J Hoot RN[id number] IMREKQHFWOTX8452-92-23B26:45:011.2.840.494699. 1.72.3.15|1.2.840.558947.1.13.104.2.7.2.636079 _[id number] Sydney Duff RN [facility] - [facility] 2023-08-21 19:39:00 2062-84-56Q30:39:00Formatting of this no te is different from the original.[facility] Emergency Department NotePatient Name: Saturnino Shelley of : 1965 58 year old maleTreatment Room: [facility]/WL5Yyvzbaf Record Number: [id number] Care Physician: Erik Louie JrPatient Escorted by: Self [9]Mode of Arrival: EMS - [place] [46]EMS Treatment Prior to ED Arrival:DATA ENTRY OPERATOR treatment: NoneTravel and Exposure Screening:SymptomsDoes patient have [...] to not being able to get a [place] identification card over the last 4 years. [...] without Contrast, 08/21/2023 8:00 PM.Ordering Physician: COSME CARDONA.History: Bowel obstruction suspected Stone suspected.Comparison: CT abdomen [...] <0.03 0.01 - 0.09 10*3/uLCOMP. METABOLIC PANEL (58390) - AbnormalNA 120 (*) 135 - 145 [...] U/LAST(SGOT) 24 13 - 40 U/LeGFR 6.9 mL/min/1.28n3IPMZBK - AbnormalLIPASE 758 (*) 0 - 220 [...] PELVIS WO CONTRASTCbc with DiffComp. Metabolic Panel (94831)LipaseUrinalysisBasic Metabolic Panel (NA, K, CL, CO2, GLUCOSE, BUN, CREATININE, CA)Orders Placed This EncounterMedicationsmagnesium citrate solution 296 mLFirst Provider Eval:ED EventsDate/Time Event User Zrkeuajy11/27/241949 Medical Screening Begins COSME CARDONA --08/21/231949 First Provider Evaluation COSME CARDONA --AdmissionCareGuideline: Urologic Disease, InpatientBased on the indications [...] despite appropriate treatmentAdmissionCare documentation entered by: Cosme [employer] [facility] [email or web address], 27th edition, Copyright ? 2022 [facility] [employer] [facility] All Rights Reserved.5913-99-66X52:26:32-05:00ED COURSEED Course as of 08/21/235Sat Aug [id number] CREATININE(!): 8.39 [PS]222 NA(!): 120 [PS]2225 WBC x10^3(!): 14.75 [PS]2225 WBC/HPF(!): 31 [PS]2225 LEUK AMNAS(!): 250/uL [PS]ED Course User Index[PS] Cosme Cardona, DODiagnosis/Impression as of 08/21/23 2255Constipation, unspecified constipation typeAcute urinary retentionHyponatremiaAKI (acute kidney injury)Obstructive uropathyProcedures:ProceduresMDM:Medical Decision Mlbjnd64-fimw-qwj male with obstructive uropathy secondary to urinary retention. Multiple metabolic derangements secondary to his urinary retention. Jensen placed and greater than 2 L of [...] these medicationsNo medications on fileFollow-up:Electronically signed by:Cosme Cardona DO08/21/23 1782 59875-8Dbowsodmk Emergency department UntqFE5642-36-55H11:55:31Physician Emergency department NoteTXT1.2.840.989100.1.13.104.2.7.2.343288|20 81746671VXPsrnpaikc for patient nnhf98544-1Bdsrsxhll department NoteLNNARRATIVEFormatted C-CDA narrative textUT[address] QpfpXdcbsuawcDhxndgfrsPGEC7285237898TZQUOMAZFF PTQPAITSQQAC6194-87-37R01:55:311.2.840.371488. 1.72.3.15|1.2.840.564953.1.13.104.2.7.2.074359 _[id number] [facility] 2023-08-21 19:39:00 8637-34-06C45:39:00Formatting of this no te might be different [...] despite appropriate treatmentAdmissionCare documentation entered by: Cosme [facility] [email or web address], edition, Copyright ? 2022 [facility] [employer] [facility] All Rights Reserved.7661-94-12V60:26:32-05:00Electronical ly signed by Cosme Cardona DO at 08/21/2023 10:26 PM [id number] Admission Criteria1.2.840.106220.1.13.104.2.7.4.385035.5 8028334-56-07F90:26:33EC Admission CriteriaTXT1.2.840.282428.1.13.104.2.7.2.39188 9|5266104912KSAzanaosbe for patient tiqp46755-5ZgbwKPDIMNYYBWHGzceeeggq C-CDA narrative Mill[address] WaknBsigdswvlZrevasjvjLQJO7659610867VXVELSYLJB GDBKBQPBHMZH7008-50-32C22:26:331.2.840.307819. 1.72.3.15|1.2.840.833741.1.13.104.2.7.2.323075 _[id number] [facility] 2023-08-17 08:32:29 1969-59-70I35:32:29Formatting of this no te might be different [...] with one of us in 3-4 weeks. 78495-9Menbokvzd encounter LvsqZZ7646-62-80W61:32:29Telephone encounter NoteTXT1.2.840.130760.1.13.104.2.7.2.523015|20 65446002UMOxgzfvpki for patient rzdn45097-5SlhvQPODDZKENPBKyprpwdoa C-CDA narrative text[id number] TINOCOCLKLVNPFHHYF3684-93-21D50:32:291.2.840.500653. 1.72.3.15|1.2.840.129886.1.13.104.2.7.2.742283 _[id number] [facility] 2023-08-16 17:56:55 0421-62-54S64:56:55Summary: discharge transportation Discharge paperwork provided, patient stated he does not have a ride.Transportation was arranged with voucher.Discharge location: [address] [place], [place] [address]atient verbalized understanding. 87382-1Kadoi IwwkVD3753-32-87H22:58:12Nurse NoteTXT1.2.840.257944.1.13.104.2.7.2.582056|20 08897023VUHbklgazeb for patient njvc74020-2Yrdeb NoteLNNARRATIVEFormatted C-CDA narrative egxy374652406Ubgaywb Hernandez RNUT[address] [id number] TINOCOZQPZUULGIQUK8679-51-12S22:58:121.2.840.757130. 1.72.3.15|1.2.840.753263.1.13.104.2.7.2.552649 _[id number] Hilary Quinones RN [facility] 2023-08-16 17:19:16 3901-46-89F73:19:16Formatting of this no te might be different from the original.Problem: PainGoal: Control of pain at or below patient's documented comfort goalOutcome: ResolvedGoal: Reduction in pain sensationOutcome: ResolvedProblem: Skin integrity Impaired (Risk or Actual)Goal: Prevention of new skin breakdownOutcome: ResolvedProblem: Venous Thromboembolism, (actual or risk of)Goal: Absence of venous thromboembolism (Risk)Outcome: Resolved 01711-7Nteg of care ingvKB1293-86-30B58:19:21Plan of care noteTXT1.2.840.123078.1.13.104.2.7.2.496553|20 45774285DCAcshyqcmd for patient uybe21776-0AleyYDQOCFSAVPUMuruvxttz C-CDA narrative Millican[id number] FREGOSOZAGHJBNJUVSA2297-37-95K57:19:211.2.840.628509. 1.72.3.15|1.2.840.887237.1.13.104.2.7.2.557003 _[id number] [facility] 2023-08-16 10:33:18 1736-68-64A64:33:18Summary: foleyFormatt ing of this note might be different from the original.Jensen discontinued without complications. Patient given lactulose PO. Patient notified to notify nurse and to leave urine/stool before flushing for nursing staff to assess. Patient verbalized understanding. 70004-1Jbujb BygcVW1634-17-83F25:34:47Nurse NoteTXT1.2.840.283441.1.13.104.2.7.2.061400|20 86387061JOMidjcdpnx for patient lrzt05348-0Mnaem NoteLNNARRATIVEFormatted C-CDA narrative [id number] FREGOSOYTVNBHMFTXPF5458-65-98Y29:34:471.2.840.141664. 1.72.3.15|1.2.840.912717.1.13.104.2.7.2.389186 _[id number] [facility] 2023-08-16 00:51:24 3558-08-04L15:51:24Formatting of this no te might be different from the original.Problem: PainGoal: Control of pain at or below patient's documented comfort goalOutcome: Progressing as expectedGoal: Reduction in pain sensationOutcome: Progressing as expectedProblem: Skin integrity Impaired (Risk or Actual)Goal: Prevention of new skin breakdownOutcome: Progressing as expectedProblem: Venous Thromboembolism, (actual or risk of)Goal: Absence of venous thromboembolism (Risk)Outcome: Progressing as expected 51176-2Cbjs of care anebQY4966-43-44C38:51:26Plan of care noteTXT1.2.840.483298.1.13.104.2.7.2.574913|20 [id number] for patient nkft45441-0WxogOPTXPPHFNEHYwkpxjime C-CDA narrative [address] Kkq[id number] CQSYTGLGRECP9031-41-10H16:51:261.2.840.933341. 1.72.3.15|1.2.840.747027.1.13.104.2.7.2.557713 _[id number] [facility] 2023-08-15 19:27:06 3092-12-67Q30:27:06Formatting of this no te might be different from the original.Problem: PainGoal: Control of pain at or below patient's documented comfort goalOutcome: Progressing as expectedGoal: Reduction in pain sensationOutcome: Progressing as expectedProblem: Skin integrity Impaired (Risk or Actual)Goal: Prevention of new skin breakdownOutcome: Progressing as expectedProblem: Venous Thromboembolism, (actual or risk of)Goal: Absence of venous thromboembolism (Risk)Outcome: Progressing as expected 12229-3Ufmc of care goorWG0501-04-72V50:27:11Plan of care noteTXT1.2.840.382034.1.13.104.2.7.2.376008|20 [id number] for patient zref05949-0SwzxKTVQHAMNOARTvxuoicym C-CDA narrative khnp307127177Uddpqkbqa Landin RNUT[address] [id number] TINOCOVKWYSUJALWOG2904-41-90X94:27:111.2.840.453459. 1.72.3.15|1.2.840.631128.1.13.104.2.7.2.181656 _[id number] Libia Johnson RN [facility] 2023 23:43:36 8727-85-40B05:43:36Formatting of this no te might be different from the original.Problem: PainGoal: Control of pain at or below patient's documented comfort goalOutcome: Progressing as expectedGoal: Reduction in pain sensationOutcome: Progressing as expectedProblem: Skin integrity Impaired (Risk or Actual)Goal: Prevention of new skin breakdownOutcome: Progressing as expectedProblem: Venous Thromboembolism, (actual or risk of)Goal: Absence of venous thromboembolism (Risk)Outcome: Progressing as expected 05178-4Qywb of care bbegGM8612-16-98Z11:43:45Plan of care noteTXT1.2.840.088112.1.13.104.2.7.2.990331|20 85293458NQBclnnbksh for patient sgld26079-9PraeSMSXZLHHRUYQgxlvqphd C-CDA narrative text[id number] FREGOSOCZPZEXRJFRQL0243-48-30W47:43:451.2.840.364087. 1.72.3.15|1.2.840.710042.1.13.104.2.7.2.322573 _[id number] [facility] 2023 23:01:15 7499-49-32W26:01:15Formatting of this no te might be different from the original.Patient admitted to [facility] for diagnosis of Hypertension, elevated troponin, urine retention, ELIEZER, hypokalemia.Patient agrees to admission, discussed plan of care with patient and family.Patient is awake, alert, oriented, resp reg unlabored, color appropriate for race, PIV intactNo adverse reaction to medications administered while in EDBelongings with patient to unitReport to [facility] [place] [address]-5Fdcneyoob department WmjiZV2635-27-43Z72:04:23[facility] department NoteTXT1.2.840.082648.1.13.104.2.7.2.238032|20 [id number] for patient syxq15064-0QodsHUTOBVSKWATEynzvodbw C-CDA narrative rjjv938642913Pydmieo E Tyler RN[address] FmqoR[id number] KRXZGFZXPYFI3640-00-96T17:04:231.2.840.287699. 1.72.3.15|1.2.840.585270.1.13.104.2.7.2.753806 _[id number] Josi Miller RN [facility] 2023 18:56:57 5004-82-15Z74:56:57Formatting of this no te might be different from the original.Handoff report given to Josi VILLAGRAN [address]74-9Fimfvaeof[address] [place] [address] CodaBH2933-89-82H36:57:07[facility] NoteTXT1.2.840.118615.1.13.104.2.7.2.167795|20 47374062AEObrjldbhf for patient qkyk90042-7UetsPLWSAWPSMCMKhspqsecd C-CDA narrative lshk817511020Vjfvc E Leoncio VILLAGRAN[id number] BARNESHAYVUVHERTYB2383-32-22A71:57:071.2.840.096231. 1.72.3.15|1.2.840.054286.1.13.104.2.7.2.285836 _[id number] Nunu Mayer Leoncio VILLAGRAN [facility] 2023 14:42:29 3363-91-79H13:42:29Formatting of this no te might be different from the original.Has been out of diabetic, BP meds since April. States he can't "afford it". Struggling with constipation for "several days". He called EMS today for excessive fatigue and worsening hypertension. He is A&Ox4 and able to ambulate. 26928-7Scptlikbc department Triage wcdmCF2877-25-29T27:44:03[facility] Triage noteTXT1.2.840.259228.1.13.104.2.7.2.091785|20 [id number] for patient yhmg08203-0Lywqvzzum department NoteLNNARRATIVEFormatted C-CDA narrative [id number] Fief RN[id number] TINOCOAWMGUITPGEFP8098-72-69U46:44:031.2.840.239746. 1.72.3.15|1.2.840.826438.1.13.104.2.7.2.227697 _[id number] Alba Hernandez RN [facility] 2023 14:38:00 1936-01-07Q05:38:00Associated Order(s): EKG-12 Lead ROUTINE ONCEPre-Procedure Diagnose(s): Hypertension, unspecified typePost-Procedure Diagnose(s): Hypertension, unspecified type; Elevated troponin I level; Urine retention [facility] Emergency Department NotePatient Name: Saturnino Shelley of : 1965 58 year old maleTreatment Room: LA6/HM1Xpyvemg Record Number: [id number] Care Physician: Erik Louie JrPatient Escorted by: Self [9]Mode of Arrival: EMS - [place] [46]EMS Treatment Prior to ED Arrival:Travel and [...] symptomsHistory provided by: Patient and medical recordsLanguage sports management professor used: NoPast Medical History/Immunizations:Past Medical History:Diagnosis DateHTN [...] this encounter.First Provider Eval:ED EventsDate/Time Event User Tidjimtw70/20/24 8370 Medical Screening Begins UMANG REYNAGA MD --08/14/23 1457 First Provider Evaluation UMANG REYNAGA MD --ED COURSEED Course as of 08/14/23 1841Sat Aug 13 Discussed all the results with the patient, understands my recommendation for observation for ELIEZER, dehydration, urine retention, hypertensive urgency and elevated troponin. Patient understands and agrees with plan [CD]1835 URINALYSIS(!)No UTI [CD]181 CK: 148No Rhabdo [CD]1725 AGAP: 11DKA less likely [CD]172 WBC x10^3(!): 12.69Assessing for infection [CD]172 K(!): 3.4Replaced with PO postassium [CD]172 TROPONIN I(!): 0.081Aspirin given [CD]172 CREATININE(!): 2.40Was .63 - 3 months ago [CD]1722 IMPRESSIONNo acute cardiopulmonary abnormality.[CD]1652 IMPRESSIONFindings suggest bladder outlet obstruction/urinary retention with moderatehydroureteronephrosis with perinephric and periureteral stranding,prostatomegaly, and prominently distended bladder extending above theumbilicus.Jensen ordered [CD]1648 CXR interpreted by myself no [...] with plan [CD]ED Course User Index[CD] Umang Reynaga MDDiagnosis/Impression as of 08/14/23 1841Hypertension, unspecified typeElevated troponin I levelUrine retentionAKI (acute kidney injury)HypokalemiaProcedures:EKG-12 Lead ROUTINE ONCEDate/Time: 2023 5:55 PMPerformed by: Umang Reynaga MDAuthorized by: Umang Reynaga MDECG interpreted by ED Physician in the absence of a home extension agent: yesPrevious ECG:Previous ECG: Compared to currentSimilarity: No [...] these medicationsNo medications on fileFollow-up:Electronically signed by:Umang Reynaga MD08/14/231851 69910-5Wfcnznjga Emergency department BauyPZ4523-59-46Q65:52:17Physician Emergency department NoteTXT1.2.840.513256.1.13.104.2.7.2.221849|20 [id number] for patient yqet58000-5Erwmicwnv department NoteLNNARRATIVEFormatted C-CDA narrative textUT[address] BkwbW[id number] HQERHDCRZCPO0810-05-79M00:52:171.2.840.283777. 1.72.3.15|1.2.840.684318.1.13.104.2.7.2.521436 _[id number] [facility] 2023 14:38:00 5101-73-95R43:38:00Formatting of this no te might be different [...] over serial assessments)AdmissionCare documentation entered by: Umang [facility] [email or web address], 27th edition, Copyright ? 2022 [facility] [employer] All Rights Reserved.4958-33-47M20:45:18-05:00Electronical ly signed by Umang Reynaga MD at 2023 6:45 PM [id number] Admission Criteria1.2.840.923928.1.13.104.2.7.4.777148.5 7323446-77-38Z92:45:20EC Admission CriteriaTXT1.2.840.792705.1.13.104.2.7.2.71145 9|[id number] for patient xbzj62851-8DwolHJYBINZCATFXlgxvuezg C-CDA narrative textUT[address] FkrlEkgwemaojKahaxqnobQTWJ3776502051YCTVYGLNCW BUHNQFOARLSH8901-46-34B07:45:201.2.840.501449. 1.72.3.15|1.2.840.363833.1.13.104.2.7.2.784683 _[id number] [facility] 2023 14:38:00 9242-12-12B26:38:00Formatting of this no te might be different [...] in pediatric patients)AdmissionCare documentation entered by: Umang [facility]Still[facility] [email or web address], edition, Copyright ? 2022 [facility] [employer] [facility] All Rights Reserved.8817-08-84V24:00:25-05:00Electronical ly signed by Umang Reynaga MD at 2023 7:00 PM [id number] Admission Criteria1.2.840.033987.1.13.104.2.7.4.386879.5 7785505-61-66W67:00:26EC Admission CriteriaTXT1.2.840.346027.1.13.104.2.7.2.67553 9|[id number] for patient surc34482-2TsoyEZPHGWBYPMHRbfrxfwfb C-CDA narrative textUT[address] AymtXopqqoeenWhynqvyboNNFN0807044011YHRHNRZTFQ DMEQSXHUDMKY2881-48-69C93:00:261.2.840.568628. 1.72.3.15|1.2.840.953823.1.13.104.2.7.2.921396 _[id number] [facility] 2023-04-27 15:56:14 8454-87-29S15:56:14Formatting of this no te might be different from the original.TRANSITIONAL CARE MANAGEMENT ASSESSMENT04/27/2023Saturnino MaldonadoBvxpdmh510820BQmuqh Ramirez is a 57 year old /White male was admitted on 04/20/[address] He was discharged on 04/23/23 with [...] something or to check in.No linked episodesTCM Ubp-bfsy-dr-face outreach documentation:Future Appointments: 62533-3Bvykavniw encounter UxprMR9903-95-02H71:58:59Telephone encounter NoteTXT1.2.840.157029.1.13.104.2.7.2.635748|19 52852770YOUvyloumwz for patient ezji23867-7PfdfVZIPRXBNLQBMuzwpeexg C-CDA narrative uamf073152119Wopqfshliq Rivas [id number] TINOCOOFHHVBPYUJIW4860-99-09U93:58:591.2.840.057496. 1.72.3.15|1.2.840.032771.1.13.104.2.7.2.556688 _[id number] Jeannette Dawn [facility] 2023-04-23 18:39:42 5158-93-77U40:39:42Formatting of this no te might be different from the original.Patient refuses to take taxi voucher which takes him directly to [employer] stating, "My brother is on his way to pick me up. I don't want to upset him as it is anymore." When asked if his brother is going to take him to [place], patient stated, "I don't know. That will be between me and my brother." Transportation in room, wheeled patient [facility]. 65059-0Mbkwn VsbeZH2175-43-80N05:42:34Nurse NoteTXT1.2.840.351679.1.13.104.2.7.2.477838|19 85674206OVHqkxojsmm for patient fnct49722-8UjjkUMEONGLGRGRZwwdgxoub C-CDA narrative yduy666619481Rbmjt Feliciano RN[id number] FREGOSOIDWEFKWWOJWE6625-90-72C11:42:341.2.840.634524. 1.72.3.15|1.2.840.219194.1.13.104.2.7.2.213458 _[id number] Meme Sparks RN [facility] 2023-04-23 17:33:42 2690-07-22U62:33:42Formatting of this no te might be different from the original.Problem: Glucose controlGoal: Glucose level within specified iiwvholheo95/29/2023 173 by Valentino Whiting, RNOutcome: Adequate for /29/2023 1732 by Valentino Whiting, RNOutcome: Adequate for sbyaifpcz22/29/2023 105 by Valentino Whiting, RNOutcome: Progressing as expectedProblem: Discharge PlanningGoal: Adequate for wqopllzez04/29/2023 173 by Valentino Whiting RNOutcome: Adequate for zzcodclez53/29/2023 173 by Valentino Whiting, RNOutcome: Adequate for iwnizwvxk84/29/2023 105 by Valentino Whiting, RNOutcome: Progressing as expectedGoal: Adequate to move to next level of care04/23/2023 173 by Valentino Whiting, RNOutcome: Adequate for nyxzixqlr48/29/2023 173 by Valentino Whiting RNOutcome: Adequate for evrvzdhug73/29/2023 1051 by Valentino Whiting, RNOutcome: Progressing as expectedProblem: PainGoal: Control of pain at or below patient's documented comfort goal04/23/20231732 by Valentino Whiting, RNOutcome: Adequate for zocgqvllj03/29/2023 173 by Valentino Whiting RNOutcome: Adequate for /29/2023 105 by Valentino Whiting, RNOutcome: Progressing as expectedGoal: Reduction in pain halkdwjod03/29/20231732 by Valentino Whiting, RNOutcome: Adequate for ktakdkosv37/29/2023 1732 by Valentino Whiting RNOutcome: Adequate for /29/2023 1051 by Valentino Whiting, RNOutcome: Progressing as expectedProblem: Tissue Perfusion, Cardiopulmonary - AlteredGoal: Circulatory function within specified cbtegctwag50/29/2023 173 by Valentino Whiting, RNOutcome: Adequate for paghwxycp03/29/2023 1732 by Valentino Whiting, RNOutcome: Adequate for slswtxcje04/29/2023 1051 by Valentino Whiting RNOutcome: Progressing as expectedProblem: Mental Status - ImpairedGoal: Able to achieve maximum level of cognitive gvrtmfl1104/23/2023 1733 by Valentino Whiting RNOutcome: Adequate for zfuuugwre27/29/2023 1732 by Valentino Whiting RNOutcome: Adequate for tchkuboop09/29/2023 1051 by Valentino Whiting RNOutcome: Progressing as expected 71757-3Ifep of care gpfqKT3428-60-78R27:33:50Plan of care noteTXT1.2.840.069081.1.13.104.2.7.2.672835|19 95106242ZYHsikgewuz for patient okvb70194-8JrezIBFRQAYMWZUOtwbfoahv C-CDA narrative qxkw413990464Ihxudg C Eaves RN[address] StreetThvyGzvagozquInircaaieBVIN7954813839ZJECFNSXWO LKEBDJAXOJHR1556-08-39H35:33:501.2.840.989113. 1.72.3.15|1.2.840.686202.1.13.104.2.7.2.969776 _[id number] Valentino Whiting [facility] 2023-04-23 17:33:03 5857-34-90F43:33:03Formatting of this no te might be different from the original.Problem: Glucose controlGoal: Glucose level within specified dprvzpjnuv52/29/2023 1732 by Valentino Whiting RNOutcome: Adequate for dwzfjloqi75/29/2023 1051 by Valentino Whiting RNOutcome: Progressing as expectedProblem: Discharge PlanningGoal: Adequate for /29/2023 1732 by Valentino Whiting RNOutcome: Adequate for surxyhltx89/29/2023 1051 by Valentino Whiting RNOutcome: Progressing as expectedGoal: Adequate to move to next level of care04/23/2023 1732 by Valentino Whiting RNOutcome: Adequate for iwhiubcpw15/29/2023 1051 by Valentino Whiting RNOutcome: Progressing as expectedProblem: PainGoal: Control of pain at or below patient's documented comfort goal04/23/2023 1732 by Valentino Whiting RNOutcome: Adequate for huaujkgst92/29/2023 1051 by Valentino Whiting RNOutcome: Progressing as expectedGoal: Reduction in pain pfoktdiov19/29/2023 1732 by Valentino Whiting RNOutcome: Adequate for lhpaicapj08/29/2023 1051 by Valentino Whiting RNOutcome: Progressing as expectedProblem: Tissue Perfusion, Cardiopulmonary - AlteredGoal: Circulatory function within specified ukltbixybz50/29/2023 1732 by Valentino Whiting RNOutcome: Adequate for biipylojg03/29/2023 1051 by Valentino Whiting RNOutcome: Progressing as expectedProblem: Mental Status - ImpairedGoal: Able to achieve maximum level of cognitive awgnbzl9804/23/2023 1732 by Valentino Whiting RNOutcome: Adequate for ulcqbdzwd78/29/2023 1051 by Valentino Whiting RNOutcome: Progressing as expected 17636-1Hhye of care rjdjJZ7636-91-90Z79:33:13Plan of care noteTXT1.2.840.880799.1.13.104.2.7.2.924009|19 06472698JUFdrmeumjy for patient jdbg70769-8OrydBKDKOHYKUZSCpupszxlp C-CDA narrative text[address] Mv[id number] HMVLSTRYWHDM7837-91-03M87:33:131.2.840.598209. 1.72.3.15|1.2.840.212885.1.13.104.2.7.2.622860 _[id number] [facility] 2023-04-23 10:51:50 8045-60-21E69:51:50Formatting of this no te might be different [...] level of cognitive abilityOutcome: Progressing as expected 03087-7Qphl of care pdkmRF3795-89-99O34:52:01Plan of care noteTXT1.2.840.776633.1.13.104.2.7.2.530163|19 24304254ZJZbbyxmgdw for patient jesg62045-6EyzhLKPXXEJLENMRznssjaow C-CDA narrative [address] YgvnLqtommakcFbnsegjteRPKC7790424008EOPJFYZVUO NJHTGVYDOFLC0348-43-51T44:52:011.2.840.031674. 1.72.3.15|1.2.840.457298.1.13.104.2.7.2.425930 _[id number] [facility] 2023-04-23 00:56:44 8378-33-64D25:56:44Formatting of this no te might be different from the original.Problem: Mental Status - ImpairedGoal: Able to achieve maximum level of cognitive abilityOutcome: Progressing as expected 57000-4Psto of care eqvoQB1776-04-88G53:56:51Plan of care noteTXT1.2.840.557302.1.13.104.2.7.2.660641|19 22464537YJFamcqrpfm for patient vgkc33052-7VftvXNHHSEIVYMURhobocyrg C-CDA narrative text[id number] BARNESLZFEOKAQVXWB2045-29-71H72:56:511.2.840.516955. 1.72.3.15|1.2.840.265688.1.13.104.2.7.2.210366 _[id number] [facility] 2023-04-23 00:52:07 2607-30-36B77:52:07Formatting of this no te might be different [...] function within specified parametersOutcome: Progressing as expected 82733-2Ywrt of care xidkLR3763-56-42S42:52:10Plan of care noteTXT1.2.840.229478.1.13.104.2.7.2.660533|19 38277437RUTimwnizsu for patient lcct72672-4ViztKEDDAOMRQIUPdgrjeyji C-CDA narrative [id number] TINOCOBZFBOZDPWKXI3833-05-27T73:52:101.2.840.199101. 1.72.3.15|1.2.840.299779.1.13.104.2.7.2.944030 _[id number] [facility] 2023-04-22 08:03:00 7915-30-39B53:03:00Formatting of this no te might be different [...] function within specified parametersOutcome: Progressing as expected 72961-8Ryci of care zwnfLK1084-77-37P25:25:35Plan of care noteTXT1.2.840.031102.1.13.104.2.7.2.945375|19 36616490XPGyeinavex for patient havx75197-0OethPLGBPPDYBLFOapqdvqfd C-CDA narrative text[address] EwjhPvraygpuaMykrbtkpmOIPK1684579600BLLLSDQCSH NRLTPCILWFBM0213-94-60I86:25:351.2.840.663687. 1.72.3.15|1.2.840.845516.1.13.104.2.7.2.057338 _[id number] [facility] 2023-04-20 23:38:56 3083-51-86A43:38:56Formatting of this no te might be different [...] function within specified parametersOutcome: Progressing as expected 15993-6Xapf of care mhppGW4806-81-32D42:38:59Plan of care noteTXT1.2.840.168574.1.13.104.2.7.2.083851|19 89999246AWGviqvitvn for patient tagv04978-3LvohIJQYHMCGLLVWjhzhjkst C-CDA narrative text[id number] YNOEKZZBSTZV3992-23-33J34:38:591.2.840.492217. 1.72.3.15|1.2.840.993649.1.13.104.2.7.2.631101 _[id number] [facility] 2023-04-20 21:49:51 0188-42-83V86:49:51Formatting of this no te might be different from the original.Patient admitted to [facility] ROOM 923 for diagnosis of WEAKNESS, NSTEMI, HYPERGLYCEMIAPatient agrees to admission, discussed plan of care with patient.Patient is awake, alert, oriented, resp reg unlabored, color appropriate for race, PIV intactNo adverse reaction to medications administered while in EDBelongings with patient to unitReport to MARIE RNREPORT GIVEN TO [facility], PT LOADED TO BE TRANSFERRED. HEPARIN INFUSING AT 700 UNITS/ HOUR. 70902-4Tqzcsbxhi department JsjiQW4147-95-45S21:51:39Emergency department NoteTXT1.2.840.044114.1.13.104.2.7.2.882417|19 56951033VEAghebvvgu for patient jwwb39329-5MwnbEZJVECEJPGYTzkcqtqlr C-CDA narrative vwcy001245164NiteaJaelyn Vargas RNUT[id number] IDVURJKEBPPI2171-61-04Q62:51:391.2.840.074214. 1.72.3.15|1.2.840.627280.1.13.104.2.7.2.605775 _[id number] Jaelyn Vargas RN [facility] 2023-04-20 21:38:11 5350-99-40U80:38:11Formatting of this no te might be different from the original.Report called to [facility], spoke with Marie VILLAGRAN.Pt awaiting EMS transfer. 88025-1Swrkkztte department KkmoDN0519-56-91J22:38:44[facility] NoteTXT1.2.840.792007.1.13.104.2.7.2.070530|19 34291640CUZmozvnykv for patient gkps82475-6LzuqMFHPXBJXNHHLgtxflmpr C-CDA narrative text[address] Dag[id number] CUJGVBGJBLCP8446-86-37T30:38:441.2.840.136607. 1.72.3.15|1.2.840.660863.1.13.104.2.7.2.936985 _[id number] [facility] 2023-04-20 20:59:06 8958-00-54Y09:59:06Formatting of this no te might be different from the original.[facility] ETA 45 MIN per Bree 01116-7Wbwwfukmh department HfsgSX7283-66-79C80:04:08[facility] NoteTXT1.2.840.023185.1.13.104.2.7.2.603755|19 20507924KPPntsutqse for patient zffa93007-0JbkxMFWBARJJZGBPzotrfuok C-CDA narrative ectq105462142Jvaqi S [place] [address] UxarChoficdheXhozdkzyaYZIK6383444550WISIEZOUAB UEGCFWZBYQBD0478-74-97M04:04:081.2.840.152015. 1.72.3.15|1.2.840.770241.1.13.104.2.7.2.154875 _[id number] Yoon Shukla Carrero [facility] 2023-04-20 20:54:15 8009-02-18N09:54:15Associated Order(s): Critical Care Critical CarePerformed by: Sergio Aponte MDAuthorized by: Sergio Aponte [facility]MANritical care provider statement:Critical care time (minutes): 45Critical [...] separately billable procedures and treating other patients. 49539-3Fqtpqbqph department RrnnQM4119-94-35V39:54:15[facility] NoteTXT1.2.840.214292.1.13.104.2.7.2.049289|19 12421254NVLxtomiszf for patient aefz76330-5ZasiAPLPOXMZBKMOyzuxalbf C-CDA narrative [id number] DMDZWEHYJXQL4780-70-75P47:54:151.2.840.786908. 1.72.3.15|1.2.840.160158.1.13.104.2.7.2.053833 _[id number] [facility] 2023-04-20 20:00:00 0645-84-13C72:00:00Formatting of this no te might be different from the original.Patient aware of UA sample needed. Unable to provide sample at this moment. Urinal at bedside. Call light within reach. 55604-0Nehazdngd department HrddZW3437-83-67Q99:03:40[facility] NoteTXT1.2.840.603454.1.13.104.2.7.2.560991|19 32340188RPVnxlcvqzm for patient gihb19857-1UjjdODKTSETVLCSRgtrmeesj C-CDA narrative [id number] KRHTEZSYXLBR6094-83-57F32:03:401.2.840.265761. 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 Per patient he was diagnosed with DM five years ago and stopped taking home meds-Metformin about three years ago. Patient c/o of being weak and increased UOP. Patient was nauseous DATA ENTRY OPERATOR but has resolved since. 07159-5Ywvgcxzrk department Triage [id number]:52:56[facility] Triage [id number]|19 [id number] for patient [id number] department NoteLNNARRATIVEFormatted C-CDA narrative [address] Oo[id number] AHGGGCAPVAIS9807-44-78H96:52:561.2.840.461678. 1.72.3.15|1.2.84[id number] _[id number] [facility] 2023-04-20 19:43:00 [id number]:43:00Formatting of this no te is different from the original.[facility] Name[facility] Saturnino Shelley of : 1965 57 year oldMRN: [id number] Room:Room/bed info not foundPrimary Care Physician: No primary care provider on file.Pre- HospitalPatient Escorted by: Self [9]Mode of Arrival: EMS - [facility] [43]EMS Treatment Prior to ED Arrival:DATA ENTRY OPERATOR treatment: Saline lock;IVFED EventsDate/Time Event User Cjzqjgnz28/26/231943 Medical Screening Begins SERGIO APONTE MD --04/20/231943 First Provider Evaluation SERGIO APONTE MD --Chief ComplaintChief ComplaintPatient presents withHigh Blood SugarED Triage Megan Dc RN 04/20/2023 19:52Patient arrived to ED via [facility] c/o "not feeling well." 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 Per patient he was diagnosed with DM five years ago and stopped taking home meds-Metformin about three years ago. Patient c/o of being weak and increased UOP. Patient was nauseous DATA ENTRY OPERATOR but has resolved since.HPIHistory provided by: LeanneWealexanessLocation: GeneralizedSeverity: ModerateOnset quality: GradualTiming: ConstantChronicity: NewRelieved by: [...] <0.03 0.01 - 0.09 10*3/uLCOMP. METABOLIC PANEL (58548) - AbnormalNA 129 (*) 135 - 145 [...] U/LAST(SGOT) 30 13 - 40 U/LeGFR 98.2 mL/min/1.49b8RYEEJMMLPL - AbnormalAPPEARANCE Clear ClearCOLOR Yellow YellowPH 6.0 [...] CHEST 1 VWCBC WITH DIFFCOMP. 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 He has elevated troponin of 0.154. Please note he does not have any chest pain or shortness of breath. EKG does not demonstrate a STEMI. He was started on heparin, Plavix, and aspirin. The patient may require cardiac catheterization. The patient was transferred to [facility] for further evaluation.History, physical exam findings, results [...] medications for this patient.Sergio Aponte Jr. MDClinical Turret Lathe Tender [facility] Emergency DepartmentDragon Dictation Software is used frequently and may produce errors. Promptly contact for obvious discrepancies.Sergio Aponte MD04/21/23 0025 [id number] Emergency department [id number] Emergency department [id number] for patient [id number] department NoteLNNARRATIVEFormatted C-CDA narrative textEMCARE EMERGENCY PHYSICIAN STAFFEMCARE EMERGENCY PHYSICIAN STAFFUT[address] [id number] [id number] _[id number] [facility] EMERGENCY PHYSICIAN STAFF [facility]
[2023-10-14 10:50] LABS: Absolute Lymphocytes (CBC) 0.3 K/uL (0.7-4.9); Absolute Monocytes 0.6 K/uL (0.1-1.3); Absolute Neutrophil 18.3 K/uL (1.8-8.0); Basophils % 0.2 % (0-1.3); Hemoglobin 11.1 g/dL (13.6-17.9); Lymphocytes % 1.8 % (15.3-44.8); MCH 29.5 pg (27.0-35.0); MCHC 33.7 g/dL (32.0-36.0); MCV 87.5 fL (80-100); MPV 8.1 fL (7.6-11.3); Monocytes % 2.9 % (3.3-12.3); Neutrophils % 95.1 % (41.7-73.7); Platelets 211 thou/uL (152-406); RBC Red Blood Cell Count 3.78 M/uL (4.33-5.43); Red Cell Distribution Width 13.8 % (12.1-15.2)
[2023-10-14 11:09] LABS: Albumin 2.8 g/dL (3.4-5.0); Albumin/Globulin Ratio 0.7 (1.1-1.8); Anion Gap 16.1 mEq/L (5.0-15.0); Bilirubin Total 0.5 mg/dL (0.2-1.0); Globulin 4.2 g/dL (2.3-3.5); Potassium 4.1 mEq/L (3.5-5.1)
[2023-10-14] MEDS ORDERED: NA CHLORIDE 0.9% 500 ML ONE ×2 (11:16→12:04)
[2023-10-14] MEDS ORDERED: TAMSULOSIN 0.4 MG SR CAP ONE (11:16)
[2023-10-14] MEDS ORDERED: CEFTRIAXONE 1000 MG/VIAL ONE (11:16)
[2023-10-14 11:25] LABS: Sqamous Epithelial None Seen /HPF (None Seen); Urine Bacteria <20 /HPF (<20); Urine Bilirubin NEGATIVE (Negative); Urine Blood 2+ (Negative); Urine Clarity Extremely Turbid (Clear); Urine Color Light-Orange (Yellow); Urine Culture Reflex Order REFLEXED; Urine Glucose 4+ (Negative); Urine Ketones NEGATIVE (Negative); Urine Microscopic Reflex YN ORDER UMIC; Urine Nitrite NEGATIVE (Negative); Urine Protein 1+ (Negative); Urine RBC 21-50 /HPF (None Seen); Urine Urobilinogen Normal (Normal); Urine WBC >50 /HPF (<5)
[2023-10-14 11:34] LABS: Band Neutrophils 18 % (0-1); Blood Morphology Comment NOT SEEN (NOT SEEN); Differential Total Cells Count 100; Dohle Bodies PRESENT; Lymphocytes 1 % (15-42); Metamyelocytes 1 % (0-0); Monocytes 0 % (0-10); Platelet Estimate ADEQ; Segmented Neutrophils 80 % (40-80); Toxic Granulation 1+
[2023-10-14] MEDS ORDERED: CEFDINIR 300 MG CAP PO ONE (12:03)
[2023-10-14] MEDS ORDERED: CIPROFLOXACIN HCL 500 MG TAB ONE (12:03)
--- NOTE | 2023-10-14 12:39 | RAD REPORT ---
EXAM DESCRIPTION: CT - Stone Protocol - 10/14/2023 12:19 pm CLINICAL HISTORY: FLANK PAIN COMPARISON: Abdomen Pelvis W Contrast dated 09/02/2023 TECHNIQUE: Thin cut axial CT imaging of the abdomen and pelvis was performed without IV contrast. Mu ltiplanar reformats were generated and reviewed. All CT scans are performed using dose optimization technique as appropriate and may include automated exposure control or mA/KV adjustment according to patient size. FINDINGS: No suspicious findings in the lung bases. Mild left basilar atelectatic changes. The liver, spleen, adrenal glands, and pancreas show no suspicious findings. Gallbladder and biliary tree are also without suspicious finding. Interval improvement of the left lower pole parenchymal fluid collection, with a residual triangular focus of hypoattenuation measures 2.8 x 1.5 cm. A subcapsular element of collection is adjacent to th is, measuring 3.1 cm in greatest axial dimension and 12 mm in thickness. Mtip-oj-bmlvcviv bilateral h ydronephrosis and hydroureter again seen. Mild perinephric fluid again seen more apparent on the righ t with some left periureteric fat stranding and improvement of right proximal periureteric fluid and fat stranding. No other suspicious parenchymal findings within limits of noncontrast technique. No ev idence of radiopaque calculi. No dilated bowel loops or bowel wall thickening. No free air, free fluid or inflammatory stranding. N o hernia, mass or bulky lymphadenopathy. The urinary bladder is markedly distended with Bae cathete r placed. No suspicious bony findings. IMPRESSION: Interval decrease in size of the left lower pole renal parenchymal collection with a res idual triangular probable collection measuring 2.8 x 1.5 cm, and an adjacent subcapsular element of c ollection measuring 3.1 x 1.2 cm. Improvement of right proximal periureteric fat stranding. Persistent bilateral perinephric edema with some left periureteric fat stranding seen. Findings favor interval improvement of pyelonephritis, al though evaluation is limited given absence of the benefit of intravenous contrast.
--- NOTE | 2023-10-14 13:02 | EDPHYS ---
Physician Documentation [facility] Name: Johnnie Maldonado Age: 58 yrs Sex: Male : 1965 Arrival Date: 10/14/2023 Time: 10:04 Bed 16 Private MD: ED Physician Salvatore Doherty HPI: 10/13 10:35 This 58 yrs old Male presents to ER via EMS with complaints of Abdominal Pain. maria a 10:35 The patient presents with urinary symptoms, dribbling of urine, hesitancy to initiate maria a urine stream, retention, unable to void. Onset: The symptoms/episode began/occurred 2 day(s) ago. Modifying factors: The symptoms are alleviated by nothing, the symptoms are aggravated by nothing. Associated signs and symptoms: The patient has no apparent associated signs or symptoms. Severity of symptoms: At their worst the symptoms were moderate, severe, in the emergency department the symptoms are unchanged. The patient has experienced similar episodes in the past, a few times. Historical: - Allergies: 10:10 No Known Allergies; mb9 - Home Meds: 10:10 None [Active]; mb9 - PMHx: 10:10 diabetes mellitus; Urinary incontinence; Hypertensive disorder; raynaud's; mb9 - PSHx: 10:10 None; mb9 - Immunization history:: Adult Immunizations up to date. - Infectious Disease History:: Denies. - Social history:: Smoking status: Patient denies any tobacco usage or history of. ROS: 10:35 Constitutional: Negative for fever, chills, and weight loss, Eyes: Negative for injury, maria a pain, redness, and discharge, ENT: Negative for injury, pain, and discharge, Neck: Negative for injury, pain, and swelling, Cardiovascular: Negative for chest pain, palpitations, and edema, Respiratory: Negative for shortness of breath, cough, wheezing, and pleuritic chest pain, Back: Negative for injury and pain, MS/Extremity: Negative for injury and deformity, Skin: Negative for injury, rash, and discoloration, Neuro: Negative for headache, weakness, numbness, tingling, and seizure, Psych: Negative for depression, anxiety, suicide ideation, homicidal ideation, and hallucinations, Allergy/Immunology: Negative for hives, rash, and allergies, Endocrine: Negative for neck swelling, polydipsia, polyuria, polyphagia, and marked weight changes, Hematologic/Lymphatic: Negative for swollen nodes, abnormal bleeding, and unusual bruising, 10:35 Abdomen/GI: Positive for abdominal pain, of the suprapubic area, Exam: 10:35 Constitutional: This is a well developed, well nourished patient who is awake, alert, maria a and in no acute distress. Head/Face: Normocephalic, atraumatic. Eyes: Pupils equal round and reactive to light, extra-ocular motions intact. Lids and lashes normal. Conjunctiva and sclera are non-icteric and not injected. Cornea within normal limits. Periorbital areas with no swelling, redness, or edema. ENT: Nares patent. No nasal discharge, no septal abnormalities noted. Tympanic membranes are normal and external auditory canals are clear. Oropharynx with no redness, swelling, or masses, exudates, or evidence of obstruction, uvula midline. Mucous membranes moist. Neck: Trachea midline, no thyromegaly or masses palpated, and no cervical lymphadenopathy. Supple, full range of motion without nuchal rigidity, or vertebral point tenderness. No Meningismus. Chest/axilla: Normal chest wall appearance and motion. Nontender with no deformity. No lesions are appreciated. Cardiovascular: Regular rate and rhythm with a normal S1 and S2. No gallops, murmurs, or rubs. Normal PMI, no JVD. No pulse deficits. Respiratory: Lungs have equal breath sounds bilaterally, clear to auscultation and percussion. No rales, rhonchi or wheezes noted. No increased work of breathing, no retractions or nasal flaring. Back: No spinal tenderness. No costovertebral tenderness. Full range of motion. Skin: Warm, dry with normal turgor. Normal color with no rashes, no lesions, and no evidence of cellulitis. MS/ Extremity: Pulses equal, no cyanosis. Neurovascular intact. Full, normal range of motion. Neuro: Awake and alert, GCS 15, oriented to person, place, time, and situation. Cranial nerves II-XII grossly intact. Motor strength 5/5 in all extremities. Sensory grossly intact. Cerebellar exam normal. Normal gait. Psych: Awake, alert, with orientation to person, place and time. Behavior, mood, and affect are within normal limits. 10:35 Abdomen/GI: Inspection: distension, that is moderate, in the suprapubic area, Bowel sounds: normal, Palpation: moderate abdominal tenderness, in the suprapubic area, Liver: no appreciated palpable abnormalities, Hernia: not appreciated, 10:35 : CVA tenderness, is absent, Male external genitalia: normal, Bladder: distension, that is severe, Rectal exam: is not applicable, 13:47 ECG was reviewed by the Attending Physician. [facility] Vital Signs: 10:08 BP 104 / 65; Pulse 125; Resp 16; Temp 98.2; Pulse Ox 98% on R/A; Weight 57.15 kg; mb9 Height 5 ft. 3 in. ; Pain 0/10; 11:53 BP 124 / 83; Pulse 125; Resp 18; Temp 99.9(O); Pulse Ox 100% ; mb9 13:52 BP 111 / 76 LA Supine (auto/reg); Pulse 138 MON; Resp 23 S; Temp 99(O); Pulse Ox 95% on le1 R/A; 17:00 BP 108 / 58; Pulse 115; Resp 18; Pulse Ox 100% on R/A; mb9 10:08 Body Mass Index 22.32 (57.15 kg, 160.02 cm) mb9 13:52 Sinus tachycardia le1 10:08 Pain Scale: Adult mb9 MDM: 10:09 Patient medically screened. maria a 13:02 Differential diagnosis: nonspecific abdominal pain, UTI, urinary retention, maria a prostatitis, urethritis. Data reviewed: vital signs, nurses notes, EMS record, lab test result(s), radiologic studies, CT scan. Consideration of Admission/Observation Patient was admitted/placed on observation. Escalation of care including admission/observation considered. I considered the following discharge prescriptions or medication management in the emergency department Medications were administered in the Emergency Department. See MAR. Independent interpretation of the following test(s) in the Emergency Department CT Scan: My interpretation is ct stone. Test considered but Not performed: Ultrasound no renal usg. Historians other than the Patient: EMS: ems well informed. Care significantly affected by the following chronic conditions: Diabetes, Hypertension. Counseling: I had a detailed discussion with the patient and/or guardian regarding the historical points, exam findings, and any diagnostic results supporting the discharge/admit diagnosis, lab results, radiology results, the need for further work-up and treatment in the hospital. 10/13 10:34 Order name: CBC with Diff; Complete Time: 11:48 maria a 10/13 10:34 Order name: Comprehensive Metabolic Panel; Complete Time: 11:22 maria a 10/13 10:34 Order name: Urinalysis w/ reflexes; Complete Time: 11:48 maria a 10/13 10:55 Order name: Manual Differential; Complete Time: 11:48 EDMS 10/13 11:31 Order name: Urine Culture EDMS 10/13 13:23 Order name: Lactate w/ 2H reflex if indic.; Complete Time: 17:21 EDMS 10/13 13:23 Order name: Blood Culture EDMS 10/13 13:27 Order name: PSA Screen; Complete Time: 17:21 EDMS 10/13 14:10 Order name: Acute Hepatitis Panel; Complete Time: 17:21 EDMS 10/13 14:10 Order name: HIV Ag/Ab Combo; Complete Time: 17:21 EDMS 10/13 14:10 Order name: NT PRO-BNP; Complete Time: 17:21 EDMS 10/13 14:10 Order name: UR SODIUM EDMS 10/13 14:10 Order name: Urinalysis w/ reflexes EDMS 10/13 14:10 Order name: Urine Drug Screen; Complete Time: 17:21 EDMS 10/13 14:10 Order name: CBC with Automated Diff EDMS 10/13 14:10 Order name: CBC with Automated Diff EDMS 10/13 14:10 Order name: CBC with Automated Diff EDMS 10/13 14:10 Order name: CBC with Automated Diff EDMS 10/13 14:10 Order name: CBC with Automated Diff EDMS 10/13 14:10 Order name: Comprehensive Metabolic Panel EDMS 10/13 14:10 Order name: Comprehensive Metabolic Panel EDMS 10/13 14:10 Order name: Comprehensive Metabolic Panel EDMS 10/13 14:10 Order name: Comprehensive Metabolic Panel EDMS 10/13 14:10 Order name: Comprehensive Metabolic Panel EDMS 10/13 14:10 Order name: Lipid Profile EDMS 10/13 14:10 Order name: Lipid Profile EDMS 10/13 14:10 Order name: Magnesium EDMS 10/13 14:10 Order name: Magnesium EDMS 10/13 14:10 Order name: Magnesium EDMS 10/13 14:10 Order name: Magnesium EDMS 10/13 14:10 Order name: Magnesium EDMS 10/13 14:10 Order name: Phosphorus EDMS 10/13 14:10 Order name: Phosphorus EDMS 10/13 14:10 Order name: Phosphorus EDMS 10/13 14:10 Order name: Phosphorus EDMS 10/13 14:10 Order name: Phosphorus EDMS 10/13 17:19 Order name: Ghost Lactate-NO COLLECT Timer; Complete Time: 17:21 EDMS 10/13 17:21 Order name: Glucose, Ancillary Testing EDAL 10/13 11:52 Order name: CT Stone Protocol; Complete Time: 12:[address] [facility] 10/13 13:21 Order name: Lumbar Spine Wo Con EDAL 10/13 17:01 Order name: MRI; Complete Time: 17:21 EDAL 10/13 13:09 Order name: EKG; Complete Time: 13:[address] [facility] 10/13 10:34 Order name: Bae: note pvr; Complete Time: 11:[address] [facility] 10/13 10:34 Order name: Bae Leg Bag; Complete Time: 11:[address] [facility] 10/13 11:52 Order name: PO challenge; Complete Time: 11:[address] [facility] 10/13 13:09 Order name: EKG - Nurse/Tech; Complete Time: 13:[address] [facility] EC:47 Rate is 145 beats/min. Rhythm is regular. QRS [place] is Normal. OR interval is normal. maria a QRS interval is normal. QT interval is normal. No Q waves. T waves are Normal. No ST changes noted. Clinical impression: Sinus tachycardia and No evidence of ischemia. Interpreted by me. Reviewed by me. Administered Medications: 11:25 Drug: NS 0.9% IV 500 ml IV at bolus once Route: IV; Rate: bolus; Site: right [facility] antecubital; 13:49 Follow up: Response: No adverse reaction; IV Status: Completed infusion; IV Intake: le1 500ml 11:25 Drug: Rocephin IV 1 grams IV at per protocol once; Given slow IV push per pharmacy [facility] instructions Route: IV; Rate: per protocol; Site: right antecubital; 13:48 Follow up: Response: No adverse reaction le1 13:49 Follow up: Response: No adverse reaction; IV Status: Completed infusion le1 11:25 Drug: Flomax PO 0.4 mg PO once Route: PO; [facility] 13:47 Follow up: Response: No adverse reaction le1 12:11 Drug: Cefdinir PO 300 mg PO once Route: PO; le1 13:46 Follow up: Response: No adverse reaction le1 12:12 Drug: NS 0.9% IV 500 ml IV at bolus once Route: IV; Rate: bolus; Site: right le1 antecubital; 13:47 Follow up: Response: No adverse reaction; IV Intake: 500ml le1 13:49 Follow up: Response: No adverse reaction; IV Status: Completed infusion le1 12:12 Drug: Ciprofloxacin PO 500 mg PO once Route: PO; le1 13:46 Follow up: Response: No adverse reaction le1 13:30 Drug: morphine IVP or IV 2 mg IVP once over 4 mins Route: IVP; Infused Over: 4 mins; le1 Site: right antecubital; 13:45 Follow up: Response: No adverse reaction; Pain is decreased le1 13:30 Drug: morphine IVP or IV 2 mg IVP once over 4 mins Route: IVP; Infused Over: 4 mins; le1 Site: right antecubital; 13:46 Follow up: Response: No adverse reaction; Pain is decreased le1 13:30 Drug: Ondansetron IVP 4 mg IVP once; over 2 minutes Route: IVP; Site: right antecubital;le1 13:45 Follow up: Response: No adverse reaction; Nausea is decreased le1 13:30 Drug: Acetaminophen PO 1000 mg PO once Route: PO; le1 13:45 Follow up: Response: No adverse reaction; Pain is decreased le1 13:46 Drug: NS 0.9% IV 1000 ml IV at 1 bolus Per protocol; 1000 mL bolus Route: IV; Rate: 1 le1 bolus; Site: right antecubital; 18:14 Follow up: Response: No adverse reaction; IV Status: Completed infusion mb9 Disposition Summary: 10/14/23 13:02 Hospitalization Ordered Notes: Hospitalization Status: Inpatient Admission maria a Provider: Juwan Abarca maria a Condition: Fair(10/14/23 13:02) maria a Problem: new(10/14/23 13:02) maria a Symptoms: have improved(10/14/23 13:02) maria a Bed/Room Type: Standard maria a Location: Telemetry/MedSurg (Inpatient)(10/14/23 16:54) em1 Room Assignment: 413(10/14/23 17:28) em1 Diagnosis - Pyelonephritis acute maria a - Other retention of urine - 1000 cc(10/14/23 13:02) maria a - Acute kidney failure, unspecified - on chronic(10/14/23 13:02) maria a - Elevated white blood cell count(10/14/23 13:02) maria a - Type 2 diabetes mellitus with hyperglycemia maria a - Fever, unspecified maria a - Tachycardia, unspecified maria a Forms: - Medication Reconciliation Form maria a - SBAR form maria a - Leadership Thank You Letter maria a Signatures: Dispatcher [employer] EDMS Salvatore Doherty MD MD cha Martinez, Jaun em1 Idalmis Fisher, RN RN aa5 Rosalie Astudillo, RN RN mb9 Shanel El RN RN le1 Corrections: (The following items were deleted from the chart) 13:00 12:59 Home maria a maria a 13:00 12:59 new maria a maria a 13:00 12:59 have improved maria a maria a 13:00 12:59 Stable maria a maria a 13:00 12:59 Other retention of urine - BPH, PVR 1000 maria a maria a 13:00 12:59 Acute kidney failure, unspecified - ON CHRONIC maria a maria a 13:00 12:59 UTI/ Urinary tract infection, site not specified maria a maria a 13:00 12:59 Elevated white blood cell count maria a maria a 13:42 13:36 Hemoglobin A1c ordered. EDAL EDAL 14:19 13:02 Telemetry/MedSurg (Inpatient) maria a em1 14:19 13:02 maria a em1 16:54 14:19 [facility] ER HOLD em1 em1 16:54 14:19 ERHOLD- em1 em1 17:28 16:54 417 em1 em1
--- NOTE | 2023-10-14 13:02 | ER ---
Nurse's Notes [facility] Name: Johnnie Maldonado Age: 58 yrs Sex: Male : 1965 Arrival Date: 10/14/2023 Time: 10:04 Bed 16 Private MD: Diagnosis: Pyelonephritis acute;Other retention of urine-1000 cc;Acute kidney failure, unspecified-on chronic;Elevated white blood cell count;Type 2 diabetes mellitus with hyperglycemia;Fever, unspecified;Tachycardia, unspecified Presentation: 10/13 10:08 Chief complaint: EMS states: "toned out for difficulty urinating since catheter removed mb9 on Wednesday. Pt states lower abdominal hurts.". Coronavirus screen: Vaccine status: Patient reports receiving the 2nd dose of the covid vaccine. Ebola Screen: No symptoms or risks identified at this time. Initial Sepsis Screen: Does the patient meet any 2 criteria? HR > 90 bpm. Does the patient have a suspected source of infection? No. Patient's initial sepsis screen is negative. Risk Assessment: Do you want to hurt yourself or someone else? Patient reports no desire to harm self or others. Onset of symptoms was 2023. 10:08 Method Of Arrival: EMS: [facility] mb9 10:08 Acuity: DONTE 3 mb9 Triage Assessment: 10:08 General: Appears in no apparent distress. Behavior is calm, cooperative. Pain: mb9 Complains of pain in abdomen Pain does not radiate. Pain currently is 8 out of 10 on a pain scale. EENT: No signs and/or symptoms were reported regarding the EENT system. Neuro: Millan Agitation-Sedation Scale (RASS): 0 - Alert and Calm Level of Consciousness is awake, alert, obeys commands, Oriented to person, place, time, situation, Appropriate for age. Cardiovascular: Patient's skin is warm and dry. Rhythm is sinus tachycardia. Respiratory: Airway is patent Respiratory effort is even, unlabored, Respiratory pattern is regular, symmetrical. GI: Abdomen is round distended. : Reports incontinence. 10:08 Derm: Skin is pink, warm \\T\\ dry. Musculoskeletal: Range of motion: intact in all mb9 extremities. Historical: - Allergies: 10:10 No Known Allergies; mb9 - Home Meds: 10:10 None [Active]; mb9 - PMHx: 10:10 diabetes mellitus; Urinary incontinence; Hypertensive disorder; raynaud's; mb9 - PSHx: 10:10 None; mb9 - Immunization history:: Adult Immunizations up to date. - Infectious Disease History:: Denies. - Social history:: Smoking status: Patient denies any tobacco usage or history of. Screenin:13 [facility] ED Fall Risk Assessment (Adult) History of falling in the last 3 months, mb9 including since admission No falls in past 3 months (0 pts) Confusion or Disorientation No (0 pts) Intoxicated or Sedated No (0 pts) Impaired Gait No (0 pts) Mobility Assist Device Used No (0 pt) Altered Elimination Yes (1 pt) Score/Fall Risk Level 0 - 2 = Low Risk Oriented to surroundings, Maintained a safe environment, Educated pt \\T\\ family on fall prevention, incl call for assistance when getting out of bed. Abuse screen: Denies threats or abuse. Nutritional screening: No deficits noted. Tuberculosis screening: No symptoms or risk factors identified. Assessment: 10:13 Reassessment: see triage assessment. mb9 12:00 Reassessment: No changes from previously documented assessment. Patient and/or family mb9 updated on plan of care and expected duration. Pain level reassessed. Patient is alert, oriented x 3, equal unlabored respirations, skin warm/dry/pink. 14:00 Reassessment: No changes from previously documented assessment. Patient and/or family mb9 updated on plan of care and expected duration. Pain level reassessed. Patient is alert, oriented x 3, equal unlabored respirations, skin warm/dry/pink. 15:30 Reassessment: No changes from previously documented assessment. Patient and/or family mb9 updated on plan of care and expected duration. Pain level reassessed. Patient is alert, oriented x 3, equal unlabored respirations, skin warm/dry/pink. 17:00 Reassessment: No changes from previously documented assessment. Patient and/or family mb9 updated on plan of care and expected duration. Pain level reassessed. Patient is alert, oriented x 3, equal unlabored respirations, skin warm/dry/pink. 17:10 Reassessment: see [facility] for further charting. mb9 Vital Signs: 10:08 BP 104 / 65; Pulse 125; Resp 16; Temp 98.2; Pulse Ox 98% on R/A; Weight 57.15 kg; mb9 Height 5 ft. 3 in. ; Pain 0/10; 11:53 BP 124 / 83; Pulse 125; Resp 18; Temp 99.9(O); Pulse Ox 100% ; mb9 13:52 BP 111 / 76 LA Supine (auto/reg); Pulse 138 MON; Resp 23 S; Temp 99(O); Pulse Ox 95% on le1 R/A; 17:00 BP 108 / 58; Pulse 115; Resp 18; Pulse Ox 100% on R/A; mb9 10:08 Body Mass Index 22.32 (57.15 kg, 160.02 cm) mb9 13:52 Sinus tachycardia le1 10:08 Pain Scale: Adult mb9 ED Course: 10:08 Patient arrived in ED. mb9 10:09 Salvatore Doherty MD is Attending Physician. [facility] 10:10 Triage completed. mb9 10:10 Arm band placed on. mb9 10:12 Placed in gown. Bed in low position. Call light in reach. Side rails up X 1. Provided mb9 Education on: press call light if needing anything. Client placed on continuous cardiac and pulse oximetry monitoring. NIBP monitoring applied. 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 Door closed. Noise minimized. Warm blanket given. Pillow given. 10:22 Rosalie Astudillo, TYSHAWN is Primary Nurse. mb9 10:43 Initial lab(s) drawn, by me, sent to lab. Inserted saline lock: 20 gauge in right le1 antecubital area, using aseptic technique. Blood collected. 11:00 Bae cath inserted, using sterile technique, 12 Fr., by ms, balloon inflated, to le1 gravity drainage, urine specimen collected. returned cloudy urine. Patient tolerated well. 11:26 Urinalysis w/ reflexes Sent. mb9 11:26 Urine collected: Bae catheter specimen, cloudy. mb9 11:26 No provider procedures requiring assistance completed. mb9 12:[address] via stretcher. le1 12:21 CT Stone Protocol In Process Unspecified. EDMS 12:31 Primary Nurse role handed off by Rosalie Astudillo, TYSHAWN le1 12:31 Shanel El RN is Primary Nurse. le1 12:59 Markos Mendoza MD is Referral Physician. maria a 13:01 Juwan Abarca MD is Hospitalizing Provider. maria a 13:51 EKG done, by ED staff, reviewed by Salvatore Doherty MD. le1 18:15 Patient admitted, IV remains in place. mb9 Administered Medications: 11:25 Drug: NS 0.9% IV 500 ml IV at bolus once Route: IV; Rate: bolus; Site: right mb9 antecubital; 13:49 Follow up: Response: No adverse reaction; IV Status: Completed infusion; IV Intake: le1 500ml 11:25 Drug: Rocephin IV 1 grams IV at per protocol once; Given slow IV push per pharmacy mb9 instructions Route: IV; Rate: per protocol; Site: right antecubital; 13:48 Follow up: Response: No adverse reaction le1 13:49 Follow up: Response: No adverse reaction; IV Status: Completed infusion le1 11:25 Drug: Flomax PO 0.4 mg PO once Route: PO; mb9 13:47 Follow up: Response: No adverse reaction le1 12:11 Drug: Cefdinir PO 300 mg PO once Route: PO; le1 13:46 Follow up: Response: No adverse reaction le1 12:12 Drug: NS 0.9% IV 500 ml IV at bolus once Route: IV; Rate: bolus; Site: right le1 antecubital; 13:47 Follow up: Response: No adverse reaction; IV Intake: 500ml le1 13:49 Follow up: Response: No adverse reaction; IV Status: Completed infusion le1 12:12 Drug: Ciprofloxacin PO 500 mg PO once Route: PO; le1 13:46 Follow up: Response: No adverse reaction le1 13:30 Drug: morphine IVP or IV 2 mg IVP once over 4 mins Route: IVP; Infused Over: 4 mins; le1 Site: right antecubital; 13:45 Follow up: Response: No adverse reaction; Pain is decreased le1 13:30 Drug: morphine IVP or IV 2 mg IVP once over 4 mins Route: IVP; Infused Over: 4 mins; le1 Site: right antecubital; 13:46 Follow up: Response: No adverse reaction; Pain is decreased le1 13:30 Drug: Ondansetron IVP 4 mg IVP once; over 2 minutes Route: IVP; Site: right antecubital;le1 13:45 Follow up: Response: No adverse reaction; Nausea is decreased le1 13:30 Drug: Acetaminophen PO 1000 mg PO once Route: PO; le1 13:45 Follow up: Response: No adverse reaction; Pain is decreased le1 13:46 Drug: NS 0.9% IV 1000 ml IV at 1 bolus Per protocol; 1000 mL bolus Route: IV; Rate: 1 le1 bolus; Site: right antecubital; 18:14 Follow up: Response: No adverse reaction; IV Status: Completed infusion mb9 Medication: 10:13 VIS not applicable for this client. mb9 Intake: 13:47 IV: 500ml; Total: 500ml. le1 13:49 IV: 500ml; Total: 1000ml. le1 Output: 11:26 Urine: 1000ml (Bae); Total: 1000ml. mb9 13:20 Urine: 4575ml (Bae); Total: 5575ml. le1 Outcome: 12:59 Discharge ordered by . maria a 13:02 Decision to Hospitalize by Provider. maria a 18:15 Admitted to Tele accompanied by [facility], via stretcher, room 417, mb9 18:15 Condition: stable 18:15 Instructed on the need for admit, 18:16 Patient left the ED. mb9 Signatures: Dispatcher [employer] EDMS Salvatore Doherty MD MD cha Breneman, Mary Beth, RN RN mb9 Shanel El, RN RN le1 Corrections: (The following items were deleted from the chart) 10:22 10:08 BP 104 / 65; Pulse 125bpm; Resp 16bpm; Pulse Ox 98% RA; 57.15 kg; Height 5 ft. 3 mb9 in.; BMI: 22.3; Pain 0/10, Adult; mb9 11:26 10:08 GI: Abdomen is flat, non-distended, mb9 mb9 11:59 11:25 NS 0.9% IV 500 ml IV at bolus in right antecubital mb9 mb9 13:49 13:47 Response: No adverse reaction le1 le1 13:49 13:48 Response: No adverse reaction; IV Intake: 500ml le1 le1 17:19 11:53 BP 124 / 83; Pulse 125bpm; Resp 18bpm; Pulse Ox 100%; le1 mb9
[2023-10-14] MEDS ORDERED: ONDANSETRON 4 MG/2 ML VIAL ONE (13:16)
[2023-10-14] MEDS ORDERED: NA CHLORIDE 0.9% 1,000 ML ONE ×2 (13:17→16:58)
[2023-10-14] MEDS ORDERED: ACETAMINOPHEN 500 MG TAB ONE (13:17)
[2023-10-14] MEDS ORDERED: MORPHINE 4 MG/ML SYR ONE (13:17)
--- NOTE | 2023-10-14 13:17 | P.HP ---
Certification for Inpatient Patient admitted to: Inpatient With expected LOS: >2 Midnights <Jacqueline Hunt - Last Filed: 10/14/23 14:21> Patient History Date of Service: 10/14/23 Reason for admission: post obs renal failure, pyelonephritis History of Present Illness: Mr. Maldonado is a 58-year-old with a past medical history of [id number] diabetes, recurrent urinary retention, and noncompliance. He is currently homeless. He was apparently seen at another facility and a Jensen was placed last week. 3 days ago he removed the Jensen but has been unable to void since. He arrived in the emergency department with a complaint of abdominal pain. A Jensen was placed, with 1000 output, he was given 800 of ibuprofen, 7.5 mg Eden, and 1 L bolus; however, he did not feel significantly better so lab work and a CT stone protocol was performed. Laboratory evaluation reveals WBC 19.2 with a 95.1% neutrophils with 18% bands, H/H11.1/33, platelets 211. Sodium 127, potassium 4.1, chloride 94, glucose 235, BUN 54, creatinine 2.52 with a GFR of 29, liver enzymes within normal limits, urine shows extremely turbid appearance with 4+ glucose, 2+ blood, 1+ protein, 500 urine esterase, greater than 50 urine white blood cells, 21-50 urine red blood cells, less than 20 urine bacteria. Imaging, comparing to 09/02/2023 study, shows impression: "interval decrease in the size of the left lower pole renal parenchymal collection with a residual triangular probable collection measuring 2.8 x 1.5 cm, and an adjacent subcapsular element of collection measuring 3.1 x 1.2 cm. Improvement of right proximal periureteric fat stranding. Persistent bilateral perinephric edema with some left periureteric fat stranding seen. Findings favor interval improvement of pyelonephritis, although evaluation is limited given the absence of the benefit of intravenous contrast." Mr. Maldonado will be admitted for further evaluation and treatment with consultation to urology and nephrology. Home medications list reviewed: Yes - Past Medical/Surgical History Has patient received pneumonia vaccine in the past: No Diabetic: Yes -: Diabetes mellitusNIDDM -: Urinary incontinence -: Urinary retention Psychosocial/ Personal History: Pt has been seen at this facility and a nearby facility for the same recurrent issue but is non compliant, removes jensen and does not follow up with specialists as recommended. Currently homeless - Social History Smoking Status: Never smoker Alcohol use: No CD- Drugs: No Caffeine use: Yes Place of Residence: Home <Anneliese Huntlamin Finney - Last Filed: 10/14/23 14:21> Date of Service: 10/14/23 <Juwan Abarca - Last Filed: 10/14/23 15:42> Allergies No Known Allergies Allergy (Unverified 09/02/23 16:25) Home Medications: Cephalexin [Keflex] 500 mg PO Q6HR 10 Days #40 cap 09/06/23 Metformin ER [Glucophage ER*] 1,000 mg PO DAILY 30 Days #30 tab.sa 09/06/23 Tamsulosin [Flomax*] 0.4 mg PO DAILY 30 Days #30 cap 09/06/23 Review of Systems 10-point ROS is otherwise unremarkable Genitourinary: As per HPI <Jacqueline Hunt - Last Filed: 10/14/23 14:21> Physical Examination - Studies Laboratory Data (last 24 hrs) 10/14/23 10/14/23 10:40 10:40 WBC 19.20 H Hgb 11.1 L Hct 33.0 L Plt Count 211 Sodium 127 L Potassium 4.1 BUN 54 H Creatinine 2.52 H Glucose 235 H Total Bilirubin 0.5 AST 25 ALT 18 Alkaline Phosphatase 82 <Jacqueline Hunt - Last Filed: 10/14/23 14:21> - Studies Laboratory Data (last 24 hrs) 10/14/23 10/14/23 10:40 10:40 WBC 19.20 H Hgb 11.1 L Hct 33.0 L Plt Count 211 Sodium 127 L Potassium 4.1 BUN 54 H Creatinine 2.52 H Glucose 235 H Total Bilirubin 0.5 AST 25 ALT 18 Alkaline Phosphatase 82 <Juwan Abarca - Last Filed: 10/14/23 15:42> Assessment and Plan - Plan Urinary retention PSA MRI Lumbar spine r/o cauda equina Consult Dr. Reji Jensen I&O no NSAIDS renal diet Pyelonephritis with acute renal failure Blood cultures urine cultures lactate Cefepime 1gm IV BID (pending sensitivities) unable to r/o spinal epi abscess 2nd to creatinine level (will obtain MRI lumbar spine as above) monitor and trend WBC gentle hydration consult Dr. Noriega HTN monitor and trend home meds as appropriate ECHO DM fsbs monitoring with SSI hemoglobin A1c drawn 09/05/23 - greater than 8 Noncompliance recurrent issue, pt removes jensen, does not follow up states he sees Dr. Louie currently homeless HIV, UDS vre/gi prophylaxis scds protonix code status full - Advance Directives Does patient have a Living Will: No Does patient have a Durable POA for Healthcare: No - Code Status/Comfort Care Code Status Assessed: Yes (Full) <Jacqueline Hunt - Last Filed: 10/14/23 14:21> - Plan Pt seen and examined. I agree with the note by the BED TEACHER. Pt is a 58 yo male with past medical history of DM II, Urinary incontinence, Raynauds and htn who pre sents with abd pain and urinary symptoms ( dribbling, hesitancy and retention of urine). The symptoms progressively worsened and p t came to the ER for evaluation. On admission, lab studies show WBC 19.2, hgb 11.1, Na 127, Cr 2.52, BUN 54,CT abd shows evidence of bilateral pyelonephritis. At bedside, pt complains of fecal incontinence. A/P: Acute Pyelonephritis: Will continue cefepime and f/u urine cx. Hyponatremia: Na is 127. Will continue IVF and trend NA level. DM II: Continue accuchek, SSI and ADA diet. Urinary retention: Will place jensen catheter and continue Flomax. Fecal incontinence: Will f/u MRI of lumbar spine. ELIEZER: cr is 2.52. Will continue IVF, avoid nephrotoxins and monitor renal function. Will continue home med for other chronic medical problems. DVT ppx: SCD Code: full <Juwan Abarca - Last Filed: 10/14/23 15:42>
[2023-10-14] MEDS: NA CHLORIDE 0.9% 1,000 ML IV SCH ×2 (14:00→22:11)
[2023-10-14 15:07] LABS: Barbiturates NEGATIVE (NEGATIVE); Benzodiazepines NEGATIVE (NEGATIVE); Cocaine NEGATIVE (NEGATIVE); METHAMPHETAM NEGATIVE (NEGATIVE); Methadone NEGATIVE (NEGATIVE); Opiates NEGATIVE (NEGATIVE); Phencyclidine NEGATIVE (NEGATIVE); THC Cannibis NEGATIVE (NEGATIVE)
[2023-10-14 16:09] LABS: HBsAG Nonreactive Report Report; Hepatitis B Core IgM Nonreactive (Nonreactive); Hepatitis B surface AG Interp. Nonreactive (Nonreactive); Hepatitis C Virus Ab Nonreactive (Nonreactive)
[2023-10-14] MEDS: INSULIN REGULAR (HUMAN) 100 UNIT/ML SQ SCH (16:30)
[2023-10-14 16:52] VITALS: BMI 22.1
--- NOTE | 2023-10-14 17:00 | RAD REPORT ---
EXAM DESCRIPTION: MRI - Lumbar Spine Wo Con- 10/14/2023 4:49 pm CLINICAL HISTORY: URINARY RETENTION, CUADA EQUINA Radiculopathy COMPARISON: Stone Protocol dated 10/14/2023 FINDINGS: Vertebral body heights are within normal limits. No aggressive marrow pattern is observed. No fracture is suspected. The conus medullaris terminates at a normal level. No thickening of the cauda equina or clumping of n erve roots seen. L1-2 level: No significant findings. L2-3 level: Mild to moderate posterior disc bulge with mild central canal narrowing. Mild exit forami nal narrowing. L3-4 level: Mild posterior disc bulge with a small annular fissure. Mild central canal narrowing. L4-5 level: Posterior disc bulge with a 4 mm central disc protrusion with large posterior annular tea r. Mild bilateral facet hypertrophy. L5-S1 level: No significant findings. Moderate hydronephrosis bilaterally, partially visualized. IMPRESSION: Mild to moderate mid lumbar spondylosis, most severe at L4-5 as detailed.
[2023-10-14 17:20] LABS: Sqamous Epithelial None Seen /HPF (None Seen); Urine Bacteria <20 /HPF (<20); Urine Bilirubin NEGATIVE (Negative); Urine Blood 2+ (Negative); Urine Clarity Extremely Turbid (Clear); Urine Color Light-Orange (Yellow); Urine Crystals Unidentified Few /HPF (None Seen); Urine Culture Reflex Order REFLEXED; Urine Glucose 4+ (Over) (Negative); Urine Ketones NEGATIVE (Negative); Urine Microscopic Reflex YN ORDER UMIC; Urine Nitrite NEGATIVE (Negative); Urine Protein 1+ (Negative); Urine RBC 21-50 /HPF (None Seen); Urine Urobilinogen Normal (Normal); Urine WBC >50 /HPF (<5); Urine WBC Clump Many /HPF (None Seen)
[2023-10-14] MEDS: NA CHLORIDE 0.9% 1,000 ML IV ONE (20:38)
[2023-10-14] MEDS: TAMSULOSIN 0.4 MG SR CAP PO SCH (20:57)
[2023-10-14] MEDS: CEFEPIME 1 GM in NA CHLORIDE 0.9% 100 ML IV SCH (20:57)
--- NOTE | 2023-10-14 21:04 | P.CNS ---
Date of Consult: 10/14/23 Chief Complaint: post obs renal failure, pyelonephritis History of Present Illness: 58-year-old gentleman with NIDDM 2, who is reportedly homeless, was seen in an emergency department over 2 weeks ago with inability to void and had a urethral Jensen catheter placed. He was apparently given Flomax, which he said he took until he ran out of the medication. On the day he ran out of the Flomax, he came into our emergency department requesting to have the catheter removed. Apparently this occurred 3 days ago, and he was unable to void with a good stream, only dribbling. He also had significant obstructive urinary symptoms. He denied any dysuria, gross hematuria, or history of urinary tract infection. In the emergency department, a urethral Jensen catheter was replaced with 1 L of urine output. He was given ibuprofen and narcotic pain medication as well as a 1 L bolus however he did not improve so a CT scan was performed. I saw the patient at bedside who seemingly reluctantly verified the information above and provided additional details as described. He describes prior history of urinary retention. He acknowledged having financial difficulty and ability to purchase the Flomax medication. Past medical history and surgical history as above No known drug allergies Social history: Never smoker Examination: Patient seemingly uncomfortable appearing but in no acute distress complaining of back pain No dyspnea or sign of respiratory distress Poorly communicative, lying with his arms over his forehead and slow to respond to questions 12 Welsh urethral Jensen catheter in place draining clear yellow urine. 10/14/2023 WBC 19.2, hemoglobin 11.1, platelets 211, sodium 127, creatinine 2.52 with EGFR 29, glucose 235, anion gap 16.1 UA micro 1+ leukocyte Estrace, negative nitrites, greater than 50 WBCs per hpf, 21-50 RBCs per hpf My review of the CT scan performed 10/14/2023: Moderate bilateral hydronephrosis with parenchymal hypoattenuation areas in the left kidney as well as some perinephric fluid around the left kidney. Massive bladder distention noted with significantly enlarged prostate. CT stone protocol radiologist impression: Interval decrease in size of the left lower pole renal parenchymal collection with a residual triangular probable collection measuring 2.8 x 1.5 cm, and an adjacent subcapsular element of collection measuring 3.1 x 1.2 cm. Improvement of right proximal periureteric fat stranding. Persistent bilateral perinephric edema with some left periureteric fat stranding seen. Favor interval improvement of pyelonephritis although evaluation limited given the absence of intravenous contrast Assessment and recommendation: 58-year-old homeless gentleman with NIDDM 2 with BPH with obstructive LUTS complicated by acute urinary retention requiring Jensen catheter placement, failed voiding trial despite use of Flomax 0.4 mg daily, now with bilateral hydronephrosis, hypotension, tachycardia, and hyponatremia, potentially secondary to postobstructive diuresis, with hypoattenuating patches of his kidneys suspicious for pyelonephritis/nephric abscess in the setting of leukocytosis and ELIEZER. -I gave the nurses a verbal order to bolus the patient 1 L NS over 1 hour stat, then continue with 100 cc/h NS IV fluid replacement. I cautioned on the potential for postobstructive diuresis, where patient diurese his large quantities of urine despite relatively less fluid intake, which may explain his hypotension and tachycardia. -Given the potential for pyelonephritis and a nephric abscess, in the setting of prior Jensen catheterization for 10 days where the catheter was removed and voiding trial given, likely without antimicrobials being provided, he is at high risk of complicating infection and sepsis, which potentially explains his leukocytosis. -Recommend cultures of his urine, if not have been sent, and if patient becomes febrile at all (T>/=100.4), obtain blood cultures. -After urine cultures taken, initiate antimicrobial therapy targeting nosocomial organisms, given his multiple ER presentations. He likely would benefit from cefepime or Zosyn as initial therapy pending cultures. -If patient fails to clinically improve over the course of the next 3 to 5 days, recommend repeat anatomic imaging via CT scan to assess for progression of a nephric abscess. -If clinical improvement noted, recommend repeat renal ultrasound after 4 or 5 days to ensure resolution of the hydronephrosis. -Patient will require outpatient urologic follow-up. -Social work consultation to assist patient with financially obtaining an extended course of tamsulosin/Flomax 0.8 mg daily (2 capsules a day) -Social work also to assist with patient financially being eligible for outpatient urologic follow-up where cystoscopic evaluation will be required at minimum, in addition to other diagnostic testing like PSA and potentially a transrectal ultrasonography. Allergies No Known Allergies Allergy (Unverified 09/02/23 16:25) Home medications list reviewed: Yes Home Medications: Cephalexin [Keflex] 500 mg PO Q6HR 10 Days #40 cap 09/06/23 Metformin ER [Glucophage ER*] 1,000 mg PO DAILY 30 Days #30 tab.sa 09/06/23 Tamsulosin [Flomax*] 0.4 mg PO DAILY 30 Days #30 cap 09/06/23 - Past Medical/Surgical History Diabetic: Yes -: Diabetes mellitusNIDDM -: Urinary incontinence -: Urinary retention Psychosocial/ Personal History: Pt has been seen at this facility and a nearby facility for the same recurrent issue but is non compliant, removes jensen and does not follow up with specialists as recommended. Currently homeless - Social History Alcohol use: No CD- Drugs: No Caffeine use: Yes Place of Residence: Home Physical Examination Temp Pulse Resp BP Pulse Ox 99 F 115 H 18 108/58 L 10/14/23 13:52 10/14/23 17:00 10/14/23 17:00 10/14/23 17:00 Laboratory Data (last 24 hrs) 10/14/23 10/14/23 10:40 10:40 WBC 19.20 H Hgb 11.1 L Hct 33.0 L Plt Count 211 Sodium 127 L Potassium 4.1 BUN 54 H Creatinine 2.52 H Glucose 235 H Total Bilirubin 0.5 AST 25 ALT 18 Alkaline Phosphatase 82 - Problems (1) Acute urinary retention Current Visit: Yes Status: Acute (2) BPH loc w urin obs/LUTS Current Visit: Yes Status: Acute (3) Hypotension Current Visit: Yes Status: Acute Qualifiers: Hypotension type: hypotension due to hypovolemia Qualified Code(s): E86.1 - Hypovolemia (4) Tachycardia Current Visit: Yes Status: Acute (5) Postobstructive diuresis Current Visit: Yes Status: Acute (6) Hyponatremia Current Visit: Yes Status: Acute (7) Pyelonephritis Current Visit: Yes Status: Acute (8) ELIEZER (acute kidney injury) Current Visit: Yes Status: Acute (9) Bilateral hydronephrosis Current Visit: Yes Status: Acute Conclusions/Impression: see A&P in HPI Critical Care: No Time Spent Managing Pts care (In Minutes): 45
[2023-10-14 21:42] LABS: PT Prothrombin Time 14.6 SECONDS (9.4-12.5); PTT, Activated Partial Thromb 35.2 SECONDS (24.3-36.9); Protime INR 1.34
[2023-10-14 22:00] LABS: Albumin/Globulin Ratio 0.6 (1.1-1.8); Bilirubin Direct 0.3 mg/dL (0-0.2); Bilirubin Indirect, Calculated 0.2 mg/dL (0.2-0.8); Bilirubin Total 0.5 mg/dL (0.2-1.0); Globulin 3.3 g/dL (2.3-3.5); Protein, Total 5.3 g/dL (6.4-8.2)
[2023-10-15] MEDS: Oxycodone HCl/Acetaminophen 5/325 MG TAB PO PRN (05:23)
[2023-10-15 06:19] LABS: Absolute Eosinophils 0.1 K/uL (0-0.5); Absolute Lymphocytes (CBC) 0.3 K/uL (0.7-4.9); Absolute Monocytes 0.3 K/uL (0.1-1.3); Absolute Neutrophil 12.7 K/uL (1.8-8.0); Basophils % 0.1 % (0-1.3); Eosinophils % 0.9 % (0-4.4); Hematocrit 27.9 % (39.6-49.0); Hemoglobin 9.5 g/dL (13.6-17.9); Lymphocytes % 2.1 % (15.3-44.8); MCV 88.2 fL (80-100); MPV 8.7 fL (7.6-11.3); Monocytes % 2.5 % (3.3-12.3); Neutrophils % 94.4 % (41.7-73.7); Platelets 128 thou/uL (152-406); RBC Red Blood Cell Count 3.17 M/uL (4.33-5.43); Red Cell Distribution Width 13.9 % (12.1-15.2)
[2023-10-15 06:51] LABS: Albumin 2.1 g/dL (3.4-5.0); Albumin/Globulin Ratio 0.6 (1.1-1.8); Anion Gap 12.2 mEq/L (5.0-15.0); Bilirubin Total 0.9 mg/dL (0.2-1.0); Globulin 3.7 g/dL (2.3-3.5); Magnesium 1.4 mg/dL (1.6-2.4); Phosphorus 3.8 mg/dL (2.5-4.9); Potassium 4.2 mEq/L (3.5-5.1); Protein, Total 5.8 g/dL (6.4-8.2)
--- NOTE | 2023-10-15 10:32 | P.PN ---
Subjective Date of Service: 10/15/23 Chief Complaint: post obs renal failure, pyelonephritis Subjective: Improving (less tachycardia, lactate trending down, pt is nauseated) <Jacqueline Hunt - Last Filed: 10/15/23 10:27> Date of Service: 10/15/23 <Juwan Abarca - Last Filed: 10/15/23 14:00> Review of Systems 10-point ROS is otherwise unremarkable General: Weakness, Malaise Gastrointestinal: Nausea Genitourinary: As per HPI Integumentary: Unremarkable <Jacqueline Hunt - Last Filed: 10/15/23 10:27> Physical Examination - Vital Signs Temperature: 97.6 F Blood Pressure: 119/83 Pulse: 104 Respirations: 18 Pulse Ox (%): 94 - Physical Exam General: Alert, Oriented x3, Other (nausea, heaving on assessment) HEENT: Atraumatic Neck: Supple Respiratory: Normal air movement Cardiovascular: Normal pulses, Regular rate/rhythm, Other (HR down to about 100bpm) Capillary refill: <2 Seconds Gastrointestinal: Soft and benign Musculoskeletal: No clubbing, No swelling Integumentary: No breakdown Neurological: Normal tone Lymphatics: No axilla or inguinal lymphadenopathy Urinary: Jensen catheter, Other (draining clear yellow urine) External genitalia: Deferred Rectal: Deferred - Studies Laboratory Data (last 24 hrs) 10/14/23 10/14/23 10:40 10:40 WBC 19.20 H Hgb 11.1 L Hct 33.0 L Plt Count 211 Sodium 127 L Potassium 4.1 BUN 54 H Creatinine 2.52 H Glucose 235 H Total Bilirubin 0.5 AST 25 ALT 18 Alkaline Phosphatase 82 <Jacqueline Hunt - Last Filed: 10/15/23 10:27> Assessment And Plan - Plan Urinary retention PSA MRI Lumbar spine r/o cauda equina Dr. Mendoza following Jensen I&O no NSAIDS renal diet 10/14 creatinine improving minimally Pyelonephritis with acute renal failure Blood cultures urine cultures lactate 10/14 trending down Cefepime 1gm IV BID (pending sensitivities) unable to r/o spinal epi abscess 2nd to creatinine level (will obtain MRI lumbar spine as above) monitor and trend WBC gentle hydration consult Dr. Noriega HTN monitor and trend home meds as appropriate ECHO DM fsbs monitoring with SSI hemoglobin A1c drawn 09/05/23 - greater than 8 Noncompliance recurrent issue, pt removes jensen, does not follow up states he sees Dr. Louie currently homeless HIV, UDS vre/gi prophylaxis scds protonix code status full <Jacqueline Hunt - Last Filed: 10/15/23 10:27> - Plan Pt seen and examined. I agree with the note by the FASHION DESIGNER. Continue iv cefepime. MRI lumbar spine shows spondylosis of the L4 - %. No mass or abscess. CT abd shows improvement of the pyelonephritis. <Juwan Abarca - Last Filed: 10/15/23 14:00>
--- NOTE | 2023-10-15 11:10 | P.CNS ---
Date of Consult: 10/15/23 Reason for Consult: ELIEZER, acute pyelonephritis, hydro Requesting Physician: Jacqueline Hunt Chief Complaint: post obs renal failure, pyelonephritis History of Present Illness: Mr. Maldonado is a [id number] old with a past medical history of aqw-orboucl-wpzwjrzty diabetes, recurrent urinary retention, and lack of OP care. He has had a hx of recent jensen placement and removal and had been unable to void since. He arrived in the emergency department with a complaint of abdominal pain. A Jensen was placed. Laboratory evaluation revealed leukocytosis and imaging revealed b/l hydro and evidence of pyelonephritis, renal abscess. He feels a bit better this AM, he denies current abd pain or back pain, he has had some nausea. Allergies No Known Allergies Allergy (Unverified 09/02/23 16:25) Home Medications: Cephalexin [Keflex] 500 mg PO Q6HR 10 Days #40 cap 09/06/23 Metformin ER [Glucophage ER*] 1,000 mg PO DAILY 30 Days #30 tab.sa 09/06/23 Tamsulosin [Flomax*] 0.4 mg PO DAILY 30 Days #30 cap 09/06/23 - Past Medical/Surgical History Diabetic: Yes -: Diabetes mellitusNIDDM -: Urinary incontinence -: Urinary retention Psychosocial/ Personal History: Pt has been seen at this facility and a nearby facility for the same recurrent issue but is non compliant, removes jensen and does not follow up with specialists as recommended. Currently homeless - Social History Alcohol use: No CD- Drugs: No Caffeine use: Yes Place of Residence: Home Review of Systems General: Fever, Weakness, Malaise Gastrointestinal: Nausea, Abdominal Pain Genitourinary: As per HPI Physical Examination Temp Pulse Resp BP Pulse Ox 97.6 F 104 H 18 119/83 94 10/15/23 10:35 10/15/23 10:35 10/15/23 10:35 10/15/23 10:35 10/15/23 10:35 General: In no apparent distress, Cooperative HEENT: Atraumatic, Normocephalic Neck: Supple Respiratory: Clear to auscultation bilaterally, Normal air movement Cardiovascular: No edema, Other (Mild tachy) Gastrointestinal: Soft and benign, Non-distended, No guarding Musculoskeletal: No swelling, No contractures Integumentary: No rashes Neurological: Normal speech, Normal tone Urinary: Jensen catheter Laboratory Data (last 24 hrs) 10/14/23 10:40 Sodium 127 L Potassium 4.1 BUN 54 H Creatinine 2.52 H Glucose 235 H Total Bilirubin 0.5 AST 25 ALT 18 Alkaline Phosphatase 82 Conclusions/Impression: A/P) 1. Stage II ELIEZER, recurrent, in the setting of obstructive uropathy, b/l hydro, acute pyelonephritis/renal abscess, other. 2. Cr level lower post hydration, cont isotonic IVF, avoid any NSAIDs 3. B/l hydro 2nd to presumed bladder neck obstruction, maintain jensen, monitor post obstructive diuresis and adjust IVF accordingly. 4. Complicated UTI, acute pyelonephritis, renal abscess. Temp curve improved, WBC lower, LA improved, cont IV Abx, will need extended course. F/u final cultures 5. Hyponatremia, mild metab acidosis -IVF changed to 1/2 NS + bicarb added to prevent further hyperchloremic metab acidosis from developing. Na level rising
--- NOTE | 2023-10-15 12:34 | EKG ---
Test Date: 2023-10-14 Test Time: 13:35:31 Home Service Advisor: MB MEASUREMENT RESULTS: Intervals: Rate: 145 WA: 158 QRSD: 80 QT: 288 QTc: 447 [place]: P: 42 WA: 158 QRS: 83 T: -4 INTERPRETIVE STATEMENTS: Sinus tachycardia Otherwise normal ECG Compared to ECG 09/02/2023 12:26:31 Myocardial infarct finding no longer present Electronically Signed On 10-15-23 12:32:02 CDT by Jatin Durham
[2023-10-15] MEDS: NACHLORIDE 0.45% 1,000 ML with NA BICARB 8.4% 75 MEQ IV SCH (12:46)
[2023-10-15] MEDS: Magnesium Sulfate 2gm IVPB 2 G/50 ML BAG IV ONE (12:48)
--- NOTE | 2023-10-15 13:48 | ECHO ---
HEIGHT: 5 ft 3 in WEIGHT: 125 lb 0 oz DATE OF STUDY: 10/15/[address]: Jacqueline Hunt STORAGE CENTER MANAGER-BC 2-DIMENSIONAL: YES M.MODE: YES DOPPLER: YES COLOR FLOW: YES TDS: PORTABLE: YES DEFINITY: BUBBLE STUDY: DIAGNOSIS: TACHYCARDIA, SEPSIS, MURMUR CARDIAC HISTORY: CATHERIZATION: YES SURGERY: NO PROSTHETIC VALVE: NO PACEMAKER: NO MEASUREMENTS (cm) DIASTOLIC (NORMALS) SYSTOLIC (NORMALS) IVSd 0.9 (0.6-1.2) LA Diam 2.8 (1.9-4.0) LVEF 50% LVIDd 4.2 (3.5-5.7) LVIDs 2.8 (2.0-3.5) %FS 33% LVPWd 1.9 (0.6-1.2) Ao Diam 2.8 (2.0-3.7) 2 DIMENSIONAL ASSESSMENT: RIGHT ATRIUM: NORMAL LEFT ATRIUM: NORMAL RIGHT VENTRICLE: NORMAL LEFT VENTRICLE: NORMAL TRICUSPID VALVE: TRACE TRICUSPID REGURGITATION MITRAL VALVE: TRACE MITRAL REGURGITATION PULMONIC VALVE: NORMAL AORTIC VALVE: NORMAL PERICARDIAL EFFUSION: NONE AORTIC ROOT: NORMAL LEFT VENTRICULAR WALL MOTION: NORMAL DOPPLER/COLOR FLOW: SEE BELOW COMMENTS: 1. LOW NORMAL LEFT VENTRICULAR EJECTION FRACTION - 50% 2. TRACE MITRAL REGURGITATION 3. TRACE TRICUSPID REGURGITATION TECHNOLOGIST: SP VAUGHN
[2023-10-16 06:39] LABS: Absolute Eosinophils 0.1 K/uL (0-0.5); Absolute Lymphocytes (CBC) 0.3 K/uL (0.7-4.9); Absolute Monocytes 0.4 K/uL (0.1-1.3); Absolute Neutrophil 10.8 K/uL (1.8-8.0); Eosinophils % 0.7 % (0-4.4); Hematocrit 28.3 % (39.6-49.0); Hemoglobin 9.8 g/dL (13.6-17.9); Lymphocytes % 2.6 % (15.3-44.8); MCH 30.3 pg (27.0-35.0); MCHC 34.6 g/dL (32.0-36.0); MCV 87.4 fL (80-100); MPV 8.8 fL (7.6-11.3); Monocytes % 3.7 % (3.3-12.3); Platelets 102 thou/uL (152-406); RBC Red Blood Cell Count 3.23 M/uL (4.33-5.43); Red Cell Distribution Width 13.8 % (12.1-15.2)
[2023-10-16 06:48] LABS: Albumin 1.7 g/dL (3.4-5.0); Albumin/Globulin Ratio 0.5 (1.1-1.8); Bilirubin Total 0.6 mg/dL (0.2-1.0); Globulin 3.6 g/dL (2.3-3.5); Magnesium 1.8 mg/dL (1.6-2.4); Phosphorus 2.4 mg/dL (2.5-4.9); Protein, Total 5.3 g/dL (6.4-8.2)
[2023-10-16] MEDS: POTASSIUM PHOS 30 MM in NA CHLORIDE 0.9% 500 ML IV ONE (09:33)
--- NOTE | 2023-10-16 11:25 | P.PN ---
Subjective Date of Service: 10/16/23 Chief Complaint: post obs renal failure, pyelonephritis Subjective: Improving (no vomiting, continued hicoughs. No c/o) <Jacqueline Hunt - Last Filed: 10/16/23 11:21> Date of Service: 10/16/23 <GuillerminapbwilmerCarltoncosta C - Last Filed: 10/16/23 13:09> Review of Systems 10-point ROS is otherwise unremarkable General: As per HPI Gastrointestinal: As per HPI Genitourinary: As per HPI <Jacqueline Hunt - Last Filed: 10/16/23 11:21> Physical Examination - Vital Signs Temperature: 97.5 F Blood Pressure: 107/65 Pulse: 113 Respirations: 22 Pulse Ox (%): 93 - Physical Exam General: Alert, In no apparent distress, Oriented x3 HEENT: Atraumatic, Normocephalic Neck: Supple Respiratory: Clear to auscultation bilaterally, Normal air movement Cardiovascular: Normal pulses, Regular rate/rhythm, Normal S1 S2 Capillary refill: <2 Seconds Gastrointestinal: Soft and benign Musculoskeletal: No clubbing Integumentary: No rashes Neurological: Normal speech, Normal tone, Normal affect Lymphatics: No axilla or inguinal lymphadenopathy Urinary: Jensen catheter External genitalia: Deferred Rectal: Deferred - Studies Microbiology Data (last 24 hrs): 10/14/23 11:08 Clean Catch Urine [place] Count - Final >100,000 CFU/ML. 10/14/23 11:08 Clean Catch Urine - Final Escherichia Coli <Jacqueline Hunt - Last Filed: 10/16/23 11:21> - Studies Microbiology Data (last 24 hrs): 10/14/23 11:08 Clean Catch Urine [place] Count - Final >100,000 CFU/ML. 10/14/23 11:08 Clean Catch Urine - Final Escherichia Coli <GuillerminaJuwan davis C - Last Filed: 10/16/23 13:09> Assessment And Plan - Plan Urinary retention PSA - 59.4 MRI Lumbar spine r/o cauda equina Dr. Mendoza following Jensen I&O no NSAIDS renal diet 10/14 creatinine improving minimally 10/15 creatinine 1.46 from 2.13 yest Pyelonephritis with acute renal failure/renal abcess Blood cultures urine cultures lactate 10/14 trending down Cefepime 1gm IV BID (pending sensitivities) unable to r/o spinal epi abscess 2nd to creatinine level (will obtain MRI lumbar spine as above) monitor and trend WBC gentle hydration consult Dr. Noriega HTN monitor and trend home meds as appropriate ECHO DM fsbs monitoring with SSI hemoglobin A1c drawn 09/05/23 - greater than 8 Noncompliance recurrent issue, pt removes jensen, does not follow up states he sees Dr. Louie currently homeless HIV, UDS negative vre/gi prophylaxis scds protonix code status full <Jacqueline Hunt - Last Filed: 10/16/23 11:21> - Plan Pt seen and examined. I agree with the note by the SOLAR SALES REP. Continue iv abx. ELIEZER is improving with IVF. Dr. Rogers is following. Continue home meds for DM and Htn. Pt was encouraged to be compliant. <Juwan Abarca - Last Filed: 10/16/23 13:09>
[2023-10-16] MEDS: NA CHLORIDE 0.9% 1,000 ML IV SCH (15:00)
--- NOTE | 2023-10-16 16:23 | PN ---
Date of Progress Note: 10/16/2023 Subjective: The patient is seen and examined at bedside. He is doing okay. Denies any complaint, u rinating well. Objective: Vital Signs: Reviewed and are stable. General: He appears in no acute distress. Lungs: Clear to auscultation. Abdomen: Soft and nontender. Extremities: Shows no evidence of edema. Laboratory Data: Showing sodium of 130, potassium of 3, BUN of 35, and creatinine of 1.46. CBC show ing WBC count of 11.6, improving. Hemoglobin, hematocrit, and platelet counts are low at 102. Current Medications: Include cefepime 1 g every 12 hours. Magnesium replacement. Potassium, phosph orus replacement. 1/2 NS with bicarbonate replacement. Impression: 1.Acute renal failure secondary to obstructive uropathy. Currently with improving renal function. 2.Hypokalemia, hyponatremia, and hypophosphatemia. The patient is currently being repleted. I will change IV fluids to normal saline and continue the potassium supplementation and follow up closely. Overall, patient has obstructive uropathy and we will continue Bae catheter drainage and further m anagement per Urology. VV/MODL Voice ID: [id number] Report ID: [id number]
[2023-10-16 17:58] LABS: Magnesium 1.8 mg/dL (1.6-2.4); Phosphorus 3.1 mg/dL (2.5-4.9); Potassium 3.7 mEq/L (3.5-5.1)
[2023-10-17] MEDS: PROMETHAZINE 25 MG TABLET PO PRN (00:57)
[2023-10-17 06:07] LABS: Absolute Eosinophils 0.1 K/uL (0-0.5); Absolute Lymphocytes (CBC) 0.5 K/uL (0.7-4.9); Absolute Monocytes 0.7 K/uL (0.1-1.3); Absolute Neutrophil 8.2 K/uL (1.8-8.0); Basophils % 0.1 % (0-1.3); Eosinophils % 0.9 % (0-4.4); Hemoglobin 10.8 g/dL (13.6-17.9); Lymphocytes % 5.5 % (15.3-44.8); MCH 30.2 pg (27.0-35.0); MCHC 34.7 g/dL (32.0-36.0); MCV 87.2 fL (80-100); MPV 8.4 fL (7.6-11.3); Monocytes % 7.2 % (3.3-12.3); Neutrophils % 86.3 % (41.7-73.7); Nucleated Red Blood Cells % 0.1 % (0-0); Platelets 100 thou/uL (152-406); RBC Red Blood Cell Count 3.56 M/uL (4.33-5.43); Red Cell Distribution Width 14.5 % (12.1-15.2)
--- NOTE | 2023-10-17 08:16 | P.PN ---
Subjective Date of Service: 10/17/23 Chief Complaint: post obs renal failure, pyelonephritis Subjective: Improving (sleeping in no distress at the time of assessment) <Jacqueline Hunt - Last Filed: 10/17/23 08:12> Date of Service: 10/17/23 <Galen Abarcacharlene Langston - Last Filed: 10/17/23 13:06> Review of Systems 10-point ROS is otherwise unremarkable Genitourinary: As per HPI <Jacqueline Hunt - Last Filed: 10/17/23 08:12> Physical Examination - Vital Signs Temperature: 97.2 F Blood Pressure: 145/78 Pulse: 98 Respirations: 18 Pulse Ox (%): 96 - Physical Exam General: In no apparent distress HEENT: Atraumatic, Normocephalic Neck: Supple Respiratory: Normal air movement Cardiovascular: Regular rate/rhythm Capillary refill: <2 Seconds Gastrointestinal: Soft and benign Musculoskeletal: No clubbing Integumentary: No rashes Neurological: Normal tone Lymphatics: No axilla or inguinal lymphadenopathy Urinary: Jensen catheter, Other (1100ml clear yellow in bag) External genitalia: Deferred Rectal: Deferred - Studies Microbiology Data (last 24 hrs): 10/14/23 11:08 Clean Catch Urine [place] Count - Final >100,000 CFU/ML. 10/14/23 11:08 Clean Catch Urine - Final Escherichia Coli <Jacqueline Hunt - Last Filed: 10/17/23 08:12> - Studies Microbiology Data (last 24 hrs): 10/14/23 11:08 Clean Catch Urine [place] Count - Final >100,000 CFU/ML. 10/14/23 11:08 Clean Catch Urine - Final Escherichia Coli <GuillerminapbCarlton guillencosta Langston - Last Filed: 10/17/23 13:06> Assessment And Plan - Plan Urinary retention PSA - 59.4 MRI Lumbar spine r/o cauda equina - multiple areas of disc pathology, no cauda equina Dr. Mendoza following Jensen I&O no NSAIDS renal diet 10/14 creatinine improving minimally 10/15 creatinine 1.46 from 2.13 yest 10/16 creatinine pending this am (potassium normalized) Pyelonephritis with acute renal failure/renal abcess Blood cultures + E. coli urine cultures + E. coli lactate 10/14 trending down Cefepime 1gm IV BID sensitive E. coli unable to r/o spinal epi abscess 2nd to creatinine level (will obtain MRI lumbar spine as above) monitor and trend WBC gentle hydration consult Dr. Noriega HTN monitor and trend home meds as appropriate ECHO DM fsbs monitoring with SSI hemoglobin A1c drawn 09/05/23 - greater than 8 Noncompliance recurrent issue, pt removes jensen, does not follow up states he sees Dr. Louie currently homeless HIV, UDS negative vre/gi prophylaxis scds protonix code status full <Jacqueline Hunt - Last Filed: 10/17/23 08:12> - Plan Pt seen and examined. I agree with the note by the SHINGLE CARRIER. Continue iv abx. ELIEZER is improving with IVF. Cr is 1.26. Dr. Mendoza is following. Continue home meds for DM and Htn. Pt was encouraged to be compliant. <Juwan Abarca - Last Filed: 10/17/23 13:06>
[2023-10-17 08:35] LABS: Albumin 1.7 g/dL (3.4-5.0); Albumin/Globulin Ratio 0.4 (1.1-1.8); Anion Gap 17.2 mEq/L (5.0-15.0); Bilirubin Total 0.7 mg/dL (0.2-1.0); Globulin 3.9 g/dL (2.3-3.5); Magnesium 1.7 mg/dL (1.6-2.4); Phosphorus 2.3 mg/dL (2.5-4.9); Potassium 3.2 mEq/L (3.5-5.1); Protein, Total 5.6 g/dL (6.4-8.2)
[2023-10-17] MEDS: POTASSIUM CL SA 10 MEQ TAB PO ONE (09:57)
[2023-10-17] MEDS: Mupirocin NASAL 2 APPL/1 GM TUBE NAS SCH (09:57)
[2023-10-17] MEDS: POTASS/SODIUM PHOSPHATE 1 PKT POWD.PACK PO SCH (09:57)
[2023-10-17] MEDS: MAGNESIUM SULFATE 1 gm IVPB 1 GM/100 ML BAG IV ONE (09:57)
--- NOTE | 2023-10-17 12:50 | RAD REPORT ---
EXAM DESCRIPTION: RAD - Chest Single View - 10/17/2023 12:43 pm CLINICAL HISTORY: PICC line insertion COMPARISON: <Comparisons> FINDINGS: Lines: Right subclavian approach PICC with tip overlying the superior cavoatrial junction. Lungs: Worsened aeration of the lung bases bilaterally. Patchy opacities are present. Pleural: Both left costophrenic angle. Cardiac: The heart size is within normal limits. Mediastinum: Within normal limits. Bones: No acute fractures. Other: None IMPRESSION: 1. PICC tip in satisfactory position overlying the superior cavoatrial junction. 2. Worsened aeration of the lung bases which may represent a combination of pleural fluid, atelectasi s, and/or pneumonia/pneumonitis.
--- NOTE | 2023-10-17 18:08 | PN ---
Date of Progress Note: 10/17/2023 Subjective: The patient was seen and examined at bedside. He is doing okay. Denies any complaints. Objective: Vital Signs: Reviewed and are stable. General: He appears in no acute distress. Lungs: Clear to auscultation. : Bae catheter in place. Laboratory Data: Showing creatinine improving to 1.26, potassium of 3.2. CBC showing stable hemoglo bin, hematocrit, and platelet count. Urine cultures are showing evidence of ESBL E coli, which is se nsitive to Levaquin. Current Medications: Reviewed. Impression: 1.Acute renal failure secondary to obstructive etiology, improving at this time. Continue Bae dra justice. 2.Urinary tract infection secondary to obstruction. The patient is on cefepime can possibly be swit ched over to p.o. Levaquin once more stable. 3.Hypokalemia. Continue replacement per protocol. Plan: Overall, patient is clinically doing better in terms of his renal status. Continue Bae cath eter drainage and follow up with Dr. Mendoza. VV/MODL Voice ID: [id number] Report ID: [id number]
[2023-10-18 06:17] LABS: Absolute Eosinophils 0.1 K/uL (0-0.5); Absolute Lymphocytes (CBC) 0.7 K/uL (0.7-4.9); Absolute Monocytes 1.4 K/uL (0.1-1.3); Absolute Neutrophil 10.5 K/uL (1.8-8.0); Basophils % 0.3 % (0-1.3); Eosinophils % 1.1 % (0-4.4); Hematocrit 29.7 % (39.6-49.0); Hemoglobin 10.2 g/dL (13.6-17.9); Lymphocytes % 5.5 % (15.3-44.8); MCH 30.2 pg (27.0-35.0); MCHC 34.5 g/dL (32.0-36.0); MCV 87.4 fL (80-100); MPV 8.9 fL (7.6-11.3); Monocytes % 10.6 % (3.3-12.3); Neutrophils % 82.5 % (41.7-73.7); Platelets 92 thou/uL (152-406); Red Cell Distribution Width 14.2 % (12.1-15.2)
[2023-10-18 06:34] LABS: Albumin 1.7 g/dL (3.4-5.0); Albumin/Globulin Ratio 0.5 (1.1-1.8); Anion Gap 8.3 mEq/L (5.0-15.0); Bilirubin Total 0.8 mg/dL (0.2-1.0); Globulin 3.7 g/dL (2.3-3.5); Magnesium 1.6 mg/dL (1.6-2.4); Phosphorus 2.1 mg/dL (2.5-4.9); Potassium 3.3 mEq/L (3.5-5.1); Protein, Total 5.4 g/dL (6.4-8.2)
[2023-10-18 08:06] LABS: Anisocytosis 2+; Blood Morphology Comment NOTED (NOT SEEN); Hypochromasia 2+; Platelet Estimate DECR; White Blood Cell Scan OK (OK)
--- NOTE | 2023-10-18 08:36 | P.PN ---
Date of Service: 10/18/23 Subjective no acute complaints, jensen to BSD Review of Systems 10-point ROS is otherwise unremarkable Physical Examination - Vital Signs reviewed - Physical Exam General: In no apparent distress HEENT: Atraumatic, Normocephalic Respiratory: Normal air movement Cardiovascular: Regular rate/rhythm Gastrointestinal: Soft and benign Musculoskeletal: No clubbing Neurological: Normal tone Urinary: Jensen BSD ssessment And Plan - Plan Urinary retention Obstructive uropathy PSA - 59.4 MRI Lumbar spine r/o cauda equina - multiple areas of disc pathology, no cauda equina Dr. Mendoza, Flomax, no NSAIDS Jensen to bsd- to remain after discharge I&O renal diet 10/14 creatinine improving minimally 10/15 creatinine 1.46 from 2.13 yest 10/16 creatinine pending this am (potassium normalized) Pyelonephritis with acute renal failure/renal abcess Leukocytosis improving Blood cultures + E. coli IV Cefepime 1gm IV Q12 urine cultures + E. coli lactate 10/14 trending down Cefepime 1gm IV BID sensitive E. coli unable to r/o spinal epi abscess 2nd to creatinine level (will obtain MRI lumbar spine as above) monitor and trend WBC gentle hydration consult Dr. Noriega Hypokalemia Hyponatremia Trend electrolytes replace. HTN monitor and trend home meds as appropriate Anemia of chronic disease Trend H&H DM fsbs monitoring with SSI hemoglobin A1c drawn 09/05/23 - greater than 8 Noncompliance recurrent issue, pt removes jensen, does not follow up states he sees Dr. Louie currently homeless HIV, UDS negative vre/gi prophylaxis scds protonix code status full
[2023-10-18] MEDS: POTASSIUM 25 MEQ EFFERV TAB PO ONE (09:01)
[2023-10-18] MEDS: MAGNESIUM SULFATE 1 gm IVPB 1 GM/100 ML BAG IV ONE (09:01)
[2023-10-18] MEDS: POTASS/SODIUM PHOSPHATE 1 PKT POWD.PACK PO SCH (09:02)
[2023-10-18] MEDS ORDERED: METOPROLOL TARTRATE 5 MG/5 ML INJ IV PRN (13:43)
--- NOTE | 2023-10-18 21:08 | P.PN ---
Date of Service: 10/18/23 Vital Signs Temp Pulse Resp BP Pulse Ox 98.6 F 97 H 15 142/84 H 95 10/18/23 16:00 10/18/23 16:00 10/18/23 17:43 10/18/23 16:00 10/18/23 17:43 Medications Cefepime HCl 1 gm/ Sodium (Chloride) 100 mls @ 200 mls/hr IV Q12HR [facility]; Protocol Last Admin: 10/18/23 08:01 Dose: 100 mls Sodium Chloride (Ns 1000 Ml Ivbag) 1,000 mls @ 50 mls/hr IV .Q20H [facility] Last Admin: 10/18/23 09:00 Dose: 1,000 mls Insulin Human Regular (Insulin Regular (Human) 100 Unit/Ml) 0 unit SQ ACHS [facility]; Protocol Last Admin: 10/18/23 16:44 Dose: 3 unit Metoprolol Tartrate (Metoprolol Tartrate 5 Mg/5 Ml Inj) 5 mg IV Q6H PRN PRN Reason: Goal to achieve SBP in comment Mupirocin (Mupirocin Nasal 2 Appl/1 Gm Tube) 1 appl [place] BID [facility] Stop: 10/21/23 21:01 Last Admin: 10/18/23 08:01 Dose: 1 appl Oxycodone/Acetaminophen (Oxycodone Hcl/Acetaminophen 5/325 Mg Tab) 1 tab PO Q6H PRN PRN Reason: Pain scale 5-7 (Moderate) Last Admin: 10/18/23 16:43 Dose: 1 tab Promethazine HCl (Promethazine 25 Mg Tablet) 25 mg PO Q6HP PRN PRN Reason: NAUSEA / VOMITING Last Admin: 10/17/23 00:57 Dose: 25 mg Tamsulosin HCl (Tamsulosin 0.4 Mg Sr Cap) 0.4 mg PO BEDTIME [facility] Last Admin: 10/17/23 20:58 Dose: 0.4 mg Microbiology Results 10/14/23 11:08 Clean Catch Urine [place] Count - Final >100,000 CFU/ML. 10/14/23 11:08 Clean Catch Urine - Final Escherichia Coli Assessment/ Plan: Nephrology No dyspnea No chest pain Back pain No acute events overnight Vitals, medications, blood work and imaging reviewed in the chart NAD. MMM. NCAT. Normal Respiratory Effort. S1S2. ND Abd. No C/C/E. No rash. AAO. Normal speech. Jensen light Stage II ELIEZER likely due to obstructive uropathy CKD II with Proteinuria -No NSAIDs -Continue jensen Hyponatremia -Encourage nutrition -Continue IVF with NS Hypokalemia -Replete as ordered Hypophosphatemia -Encourage nutrition DM II with CKD -RISS Hypoalbuminemia -Encourage nutrition Anemia in chronic illness Thrombocytopenia -Monitor H&H Enlarged Prostate with Obstruction Elevated PSA -Continue Jensen Acute E.coli Cystitis with Hematuria -Follow up cx -Continue Abx
--- NOTE | 2023-10-19 11:16 | P.PN ---
Date of Service: 10/19/23 Subjective No events overnight, homeless Pending discharge placement Review of Systems 10-point ROS is otherwise unremarkable Physical Examination - Vital Signs reviewed - Physical Exam General: Oriented x 3, afebrile Respiratory:equal unlabored Cardiovascular: Regular rate/rhythm, Gastrointestinal: Soft and benign Musculoskeletal: No clubbing Neurological: Normal tone Urinary: Jensen BSD ssessment And Plan - Plan Urinary retention Obstructive uropathy PSA - 59.4 MRI Lumbar spine r/o cauda equina - multiple areas of disc pathology, no cauda equina Dr. Mendoza, Flomax, no NSAIDS Jensen to bsd- to remain after discharge I&O renal diet reurrent urinary retention Pyelonephritis with acute renal failure/renal abcess Leukocytosis improving Blood cultures + E. coli IV Cefepime 1gm IV Q12 urine cultures + E. coli lactate 10/14 trending down Cefepime 1gm IV BID sensitive E. coli unable to r/o spinal epi abscess 2nd to creatinine level (will obtain MRI lumbar spine as above) monitor and trend WBC gentle hydration consult Dr. Noriega following Hypokalemia Hyponatremia Trend electrolytes replace. HTN monitor and trend home meds as appropriate Anemia of chronic disease Trend H&H HIV DM uncontrolled fsbs monitoring with SSI hemoglobin A1c drawn 09/05/23 - greater than 8 Noncompliance recurrent issue, pt removes jensen, does not follow up states he sees Dr. Louie currently homeless HIV, UDS negative vre/gi prophylaxis scds protonix code status full Dispo, pending discharge pending bed availability at [facility] [email or web address]
--- NOTE | 2023-10-19 19:36 | P.PN ---
Date of Service: 10/19/23 Vital Signs Temp Pulse Resp BP Pulse Ox 99 F 91 H 16 156/86 H 96 10/19/23 16:00 10/19/23 16:00 10/19/23 16:00 10/19/23 16:00 10/19/23 16:00 Medications Cefepime HCl 1 gm/ Sodium (Chloride) 100 mls @ 200 mls/hr IV Q12HR [facility]; Protocol Last Admin: 10/19/23 09:15 Dose: 100 mls Sodium Chloride (Ns 1000 Ml Ivbag) 1,000 mls @ 50 mls/hr IV .Q20H [facility] Last Admin: 10/19/23 05:21 Dose: 1,000 mls Insulin Human Regular (Insulin Regular (Human) 100 Unit/Ml) 0 unit SQ ACHS [facility]; Protocol Last Admin: 10/19/23 16:30 Dose: 7 unit Metoprolol Tartrate (Metoprolol Tartrate 5 Mg/5 Ml Inj) 5 mg IV Q6H PRN PRN Reason: Goal to achieve SBP in comment Mupirocin (Mupirocin Nasal 2 Appl/1 Gm Tube) 1 appl [place] BID [facility] Stop: 10/21/23 21:01 Last Admin: 10/19/23 09:16 Dose: 1 appl Oxycodone/Acetaminophen (Oxycodone Hcl/Acetaminophen 5/325 Mg Tab) 1 tab PO Q6H PRN PRN Reason: Pain scale 5-7 (Moderate) Last Admin: 10/18/23 16:43 Dose: 1 tab Promethazine HCl (Promethazine 25 Mg Tablet) 25 mg PO Q6HP PRN PRN Reason: NAUSEA / VOMITING Last Admin: 10/17/23 00:57 Dose: 25 mg Tamsulosin HCl (Tamsulosin 0.4 Mg Sr Cap) 0.4 mg PO BEDTIME [facility] Last Admin: 10/18/23 21:03 Dose: 0.4 mg Microbiology Results 10/14/23 11:08 Clean Catch Urine [place] Count - Final >100,000 CFU/ML. 10/14/23 11:08 Clean Catch Urine - Final Escherichia Coli Assessment/ Plan: Nephrology No dyspnea No chest pain No acute events overnight Vitals, medications, blood work and imaging reviewed in the chart NAD. MMM. NCAT. Normal Respiratory Effort. S1S2. ND Abd. No C/C/E. No rash. AAO. Normal speech. Jensen light Stage II ELIEZER likely due to obstructive uropathy CKD II with Proteinuria -No NSAIDs -Continue jensen Hyponatremia -Encourage nutrition -Continue IVF with NS Hypokalemia -Replete as ordered Hypophosphatemia -Encourage nutrition -Replete prn HTN with CKD -Start Metoprolol DM II with CKD -RISS Hypoalbuminemia -Encourage nutrition Anemia in chronic illness Thrombocytopenia -Monitor H&H Enlarged Prostate with Obstruction Elevated PSA -Continue Jensen Acute E.coli Cystitis with Hematuria -Follow up cx -Continue Abx
[2023-10-20] MEDS: METOPROLOL TAR 25 MG TAB PO SCH (06:00)
--- NOTE | 2023-10-20 09:30 | P.PN ---
Date of Service: 10/20/23 Subjective Afebrile tolerating diet homeless Pending discharge placement Review of Systems 10-point ROS is otherwise unremarkable Physical Examination - Vital Signs reviewed - Physical Exam General: Oriented x 3, no acute distress Respiratory:equal unlabored, Cardiovascular: Regular rate/rhythm, Gastrointestinal: Positive bowel sound Neurological: Oriented x 3, Urinary: Jensen BSD ssessment And Plan - Plan Urinary retention Obstructive uropathy PSA - 59.4 MRI Lumbar spine r/o cauda equina - multiple areas of disc pathology, no cauda equina Dr. Mendoza, Flomax, no NSAIDS Jensen to bsd- to remain after discharge I&O renal diet reurrent urinary retention acute on chronic Pyelonephritis with acute renal failure/renal abcess Leukocytosis improving Blood cultures + E. coli IV Cefepime 1gm IV Q12 urine cultures + E. coli lactate 10/14 trending down Cefepime 1gm IV BID sensitive E. coli unable to r/o spinal epi abscess 2nd to creatinine level (will obtain MRI lumbar spine as above) monitor and trend WBC gentle hydration consult Dr. Noriega following Hypokalemia Hyponatremia Trend electrolytes replace. HTN monitor and trend home meds as appropriate Anemia of chronic disease Trend H&H HIV DM uncontrolled fsbs monitoring with SSI hemoglobin A1c drawn 09/05/23 - greater than 8 Resume home meds Noncompliance History of HIV recurrent issue, pt removes jensen, does not follow up states he sees Dr. Louie currently homeless UDS negative vre/gi prophylaxis scds protonix code status full Dispo, pending discharge pending bed availability at [facility] [employer]
--- NOTE | 2023-10-20 21:14 | P.PN ---
Date of Service: 10/20/23 Vital Signs Temp Pulse Resp BP Pulse Ox 97.0 F 88 17 177/88 H 96 10/20/23 20:00 10/20/23 20:00 10/20/23 20:00 10/20/23 20:00 10/20/23 20:00 Medications Cefepime HCl 1 gm/ Sodium (Chloride) 100 mls @ 200 mls/hr IV Q12HR COUNT INCLUDES THE [facility]; Protocol Last Admin: 10/20/23 09:09 Dose: 100 mls Sodium Chloride (Ns 1000 Ml Ivbag) 1,000 mls @ 50 mls/hr IV .Q20H COUNT INCLUDES THE [facility] Last Admin: 10/20/23 09:21 Dose: 1,000 mls Insulin Human Regular (Insulin Regular (Human) 100 Unit/Ml) 0 unit SQ ACHS COUNT INCLUDES THE [facility]; Protocol Last Admin: 10/20/23 19:39 Dose: 7 unit Metoprolol Tartrate (Metoprolol Tartrate 5 Mg/5 Ml Inj) 5 mg IV Q6H PRN PRN Reason: Goal to achieve SBP in comment Metoprolol Tartrate (Metoprolol Tar 25 Mg Tab) 25 mg PO BID 6AM 6PM COUNT INCLUDES THE [facility] Last Admin: 10/20/23 19:37 Dose: 25 mg Mupirocin (Mupirocin Nasal 2 Appl/1 Gm Tube) 1 appl [place] BID COUNT INCLUDES THE [facility] Stop: 10/21/23 21:01 Last Admin: 10/20/23 09:19 Dose: 1 appl Oxycodone/Acetaminophen (Oxycodone Hcl/Acetaminophen 5/325 Mg Tab) 1 tab PO Q6H PRN PRN Reason: Pain scale 5-7 (Moderate) Last Admin: 10/18/23 16:43 Dose: 1 tab Promethazine HCl (Promethazine 25 Mg Tablet) 25 mg PO Q6HP PRN PRN Reason: NAUSEA / VOMITING Last Admin: 10/17/23 00:57 Dose: 25 mg Tamsulosin HCl (Tamsulosin 0.4 Mg Sr Cap) 0.4 mg PO BEDTIME COUNT INCLUDES THE [facility] Last Admin: 10/19/23 20:57 Dose: 0.4 mg Microbiology Results 10/14/23 11:08 Clean Catch Urine [place] Count - Final >100,000 CFU/ML. 10/14/23 11:08 Clean Catch Urine - Final Escherichia Coli Assessment/ Plan: Nephrology No dyspnea No chest pain No acute events overnight Vitals, medications, blood work and imaging reviewed in the chart NAD. MMM. NCAT. Normal Respiratory Effort. S1S2. ND Abd. No C/C/E. No rash. AAO. Normal speech. Jensen light Stage II ELIEZER likely due to obstructive uropathy CKD II with Proteinuria -No NSAIDs -Continue jensen Hyponatremia -Encourage nutrition -Continue IVF with NS Hypokalemia -Replete as ordered Hypophosphatemia -Encourage nutrition -Replete prn HTN with CKD -Increase Metoprolol 50mg BID DM II with CKD -RISS Hypoalbuminemia -Encourage nutrition Anemia in chronic illness Thrombocytopenia -Monitor H&H Enlarged Prostate with Obstruction Elevated PSA -Continue Jensen Acute E.coli Cystitis with Hematuria -Follow up cx -Continue Abx
[2023-10-21] MEDS: METOPROLOL TAR 25 MG TAB PO SCH (06:21)
[2023-10-21 06:30] VITALS: O2SAT 97
[2023-10-21 09:23] LABS: Hematocrit 27.8 % (39.6-49.0); Hemoglobin 9.4 g/dL (13.6-17.9); MCH 29.8 pg (27.0-35.0); MCHC 33.8 g/dL (32.0-36.0); MCV 88.2 fL (80-100); Platelets 309 thou/uL (152-406); RBC Red Blood Cell Count 3.16 M/uL (4.33-5.43); Red Cell Distribution Width 13.8 % (12.1-15.2)
[2023-10-21 09:50] LABS: Anion Gap 5.9 mEq/L (5.0-15.0); Potassium 3.9 mEq/L (3.5-5.1)
[2023-10-21 11:23] VITALS: BP 163/77; TEMP 96.9
--- NOTE | 2023-10-21 16:01 | P.DS ---
Admission Date: 10/14/23 Discharge Date: 10/21/23 Disposition: ROUTINE DISCHARGE Discharge Condition: GOOD Reason for Admission: post obs renal failure, pyelonephritis Brief History of Present Illness: Mr. Maldonado is a 58-year-old with a past medical history of [id number] diabetes, recurrent urinary retention, and noncompliance. He is currently homeless. He was apparently seen at another facility and a Bae was placed last week. 3 days ago he removed the Bae but has been unable to void since. General: Alert, In no apparent distress, Oriented x3 HEENT: Atraumatic, Normocephalic, PERRLA Neck: Supple, 2+ carotid pulse no bruit, JVD not distended Respiratory: Clear to auscultation bilaterally, Normal air movement Cardiovascular: No edema, Normal pulses, Regular rate/rhythm, Capillary refill: <2 Seconds Gastrointestinal: Hypoactive, Soft and benign, Non-distended Musculoskeletal: No clubbing, No swelling Integumentary: No rashes, No breakdown, No significant lesion Neurological: Normal speech, Sensation intact Lymphatics: No axilla or inguinal lymphadenopathy Hospital Course: Mr. Maldonado is a 58-year-old with a past medical history of [id number] diabetes, recurrent urinary retention, and noncompliance. Was noted to have urinary retention, Condition improved with insertion of Bae catheter, antispasmodics. IV antibiotics. Patient tolerating diet, stable for discharge to home with follow-up appointment with primary care physician. Needs to follow-up with urology after discharge. PROBLEM: Urinary retention evaluated by urology, placement of indwelling catheter. Will discharge with catheter. But the, Bae catheter placed will need to discharge home Bae catheter Pyelonephritis, with acute renal failure treated with IV fluids, IV antibiotics. Homeless, was evaluated by social work nurse, Noncompliance, Diabetes, discharged home with Glucophage Acute renal failure improved with IV hydration Hyponatremia improved with IV fluid Continue home medicines as previously prescribed GOAL: Clear understanding of disease process INSTRUCTIONS: Physician Discharge Instructions: -Follow-up with PCP in 1 to 2 weeks -Please call Dr. Banda at [phone] if any questions regarding hospital stay -Please call nursing station at [phone] if any nursing or medication questions -Return to the emergency room if symptoms worsen Diet: ADA, low sodium Activity: Fall precautions Vital Signs/Physical Exam: Temp Pulse Resp BP Pulse Ox 96.9 F 76 19 163/77 H 95 10/21/23 12:00 10/21/23 12:00 10/21/23 12:00 10/21/23 12:00 10/21/23 12:00 Laboratory Data at Discharge: WBC 17.40 thou/uL (4.3-10.9) H 10/21/23 09:05 Hgb 9.4 g/dL (13.6-17.9) L 10/21/23 09:05 Hct 27.8 % (39.6-49.0) L 10/21/23 09:05 Plt Count 309 thou/uL (152-406) 10/21/23 09:05 PT 14.6 SECONDS (9.4-12.5) H 10/14/23 21:14 INR 1.34 10/14/23 21:14 APTT 35.2 SECONDS (24.3-36.9) 10/14/23 21:14 Sodium 133 mEq/L (136-145) L 10/21/23 09:05 Potassium 3.9 mEq/L (3.5-5.1) 10/21/23 09:05 BUN 20 mg/dL (7-18) H 10/21/23 09:05 Creatinine 1.24 mg/dL (0.70-1.30) 10/21/23 09:05 Glucose 302 mg/dL (74-106) H 10/21/23 09:05 Phosphorus 2.1 mg/dL (2.5-4.9) L 10/18/23 05:20 Magnesium 1.6 mg/dL (1.6-2.4) 10/18/23 05:20 Total Bilirubin 0.8 mg/dL (0.2-1.0) 10/18/23 05:20 AST 16 U/L (15-37) 10/18/23 05:20 ALT 19 U/L (16-61) 10/18/23 05:20 Alkaline Phosphatase 135 U/L (45-117) H 10/18/23 05:20 Triglycerides 107 mg/dL (<150) 10/15/23 05:25 Cholesterol 67 mg/dL (<200) 10/15/23 05:25 HDL Cholesterol 13 mg/dL (40-60) L 10/15/23 05:25 Cholesterol/HDL Ratio 5.15 10/15/23 05:25 Lipase 13 U/L (13-75) 10/14/23 21:14 Home Medications: Metformin ER [Glucophage ER*] 1,000 mg PO DAILY 30 Days #30 tab.sa 10/21/23 Tamsulosin [Flomax*] 0.4 mg PO DAILY 30 Days #30 cap 10/21/23 New Medications: Tamsulosin [Flomax*] 0.4 mg PO DAILY 30 Days #30 cap Metformin ER [Glucophage ER*] 1,000 mg PO DAILY 30 Days #30 tab.sa Physician Discharge Instructions: -DC IV and DC home -Follow-up with PCP in 1 to 2 weeks -Please call Dr. Banda at [phone] if any questions regarding hospital stay -Please call nursing station at [phone] if any nursing or medication questions -Return to the emergency room if symptoms worsen Diet: AHA Activity: Fall precautions Followup: NONE,NONE [Primary Care Provider] - Markos Mendoza [ACTIVE - CAN ADMIT] - Time spent managing pt's care (in minutes): 55
--- NOTE | 2023-10-21 20:50 | P.PN ---
Date of Service: 10/21/23 Vital Signs Temp Pulse Resp BP Pulse Ox 96.9 F 76 19 163/77 H 95 10/21/23 12:00 10/21/23 12:00 10/21/23 12:00 10/21/23 12:00 10/21/23 12:00 Microbiology Results 10/14/23 11:08 Clean Catch Urine [place] Count - Final >100,000 CFU/ML. 10/14/23 11:08 Clean Catch Urine - Final Escherichia Coli Assessment/ Plan: Nephrology No dyspnea No chest pain No acute events overnight Vitals, medications, blood work and imaging reviewed in the chart NAD. MMM. NCAT. Normal Respiratory Effort. S1S2. ND Abd. No C/C/E. No rash. AAO. Normal speech. Jensen light Stage II ELIEZER likely due to obstructive uropathy CKD II with Proteinuria -No NSAIDs -Continue jensen Hyponatremia -Encourage nutrition -Continue IVF with NS Hypokalemia -Replete as ordered Hypophosphatemia -Encourage nutrition -Replete prn HTN with CKD -Increase Metoprolol 50mg BID DM II with CKD -RISS Hypoalbuminemia -Encourage nutrition Anemia in chronic illness Thrombocytopenia -Monitor H&H Enlarged Prostate with Obstruction Elevated PSA -Continue Jensen Acute E.coli Cystitis with Hematuria -Follow up cx -Continue Abx
== END 2023-10-21 13:30 | disposition home or self-care (01) | DRG 871 ==
LOC: ER 10:04 → ERHOLD 14:04 → 4TH 17:19
PROVIDERS: ADMIT Hospitalist; ATTEND Hospitalist
PROC: 0T9B70Z Drainage of Bladder with Drainage Device, Via Natural or Artificial Opening (ICD-10-PCS; 2023-10-14)
PROC: 02HV33Z Insertion of Infusion Device into Superior Vena Cava, Percutaneous Approach (ICD-10-PCS; principal; 2023-10-17)
DX: A41.51 Sepsis due to Escherichia coli [E. coli] (principal); J96.01 Acute respiratory failure with hypoxia; N15.1 Renal and perinephric abscess; N17.9 Acute kidney failure, unspecified; E87.20 Acidosis, unspecified; N10 Acute pyelonephritis; Z59.00 Homelessness unspecified; E87.1 Hypo-osmolality and hyponatremia; N13.8 Other obstructive and reflux uropathy; Z16.12 Extended spectrum beta lactamase (ESBL) resistance; R65.20 Severe sepsis without septic shock; E86.1 Hypovolemia; E87.6 Hypokalemia; I12.9 Hypertensive chronic kidney disease with stage 1 through stage 4 chronic kidney disease, or unspecified chronic kidney disease; N18.2 Chronic kidney disease, stage 2 (mild); E11.22 Type 2 diabetes mellitus with diabetic chronic kidney disease; E11.65 Type 2 diabetes mellitus with hyperglycemia; D63.1 Anemia in chronic kidney disease; D63.8 Anemia in other chronic diseases classified elsewhere; D69.6 Thrombocytopenia, unspecified; E83.39 Other disorders of phosphorus metabolism; E88.09 Other disorders of plasma-protein metabolism, not elsewhere classified; N40.1 Benign prostatic hyperplasia with lower urinary tract symptoms; R33.8 Other retention of urine; R31.9 Hematuria, unspecified; R15.9 Full incontinence of feces; Z21 Asymptomatic human immunodeficiency virus [HIV] infection status; Z79.84 Long term (current) use of oral hypoglycemic drugs; Z79.899 Other long term (current) drug therapy; Z91.199 Patient's noncompliance with other medical treatment and regimen due to unspecified reason
CPT/HCPCS: 36415; 51702; 71045; 72148; 74176; 76377; 80048; 80053; 80061; 80074; 80076; 80307; 81001; 82947; 83605; 83690; 83735; 83880; 84100; 84132; 84300; 85025; 85027; 85610; 85730; 87040; 87077; 87086; 87088; 87186; 87205; 87389; 93005; 93306; 96361; 96365; 96366; 96375; 99285; G0103; J0692; J0696; J2405; J3475; J7030; J7040; Q0169

== ENCOUNTER 2023-10-26 23:34 | Emergency (ER) | payer SELFPAY ==
--- OUTSIDE RECORDS SUMMARY | 2023-10-26 23:40 | XMS REPORT | Continuity of Care Document ---
Author Name Unknown Address [address] [facility] [address] [place] [address] [facility] thconnect Address [address] [facility] [place] [address] Care Team Providers Care Roll Table Operator Name Role Phone Erik Louie Jr. Primary Care Physician + [phone] Cosme Spring DO Attending Clinician [phone] Solo CHONG, Lyubov Hilton Attending Clinician [phone] Rosalie Irizarry RN Attending Clinician [phone] Miguel CHONG, Ricky K.H. Attending Clinician + [phone] Umang Botello MD Attending Clinician [phone] Jerry Fields DO Attending Clinician [phone] Vimal Quiñones MD Attending Clinician [phone] Jeannette Dawn LVN Attending Clinician + [phone] PARVEZ MONROE Attending Clinician Unavailable Sergio Aponte MD Attending Clinician [phone] Bret Banda MD Attending Clinician [phone] Parvez Monroe MD Attending Clinician [phone] Solo CHONG, Lyubov Hilton Admitting Clinician [phone] Jerry Fields DO Admitting Clinician [phone] PARVEZ MONROE Admitting Clinician Unavailable Parvez Monroe MD Admitting Clinician Problems Condition Name Condition Details Condition Category Status Onset Date Resolution Date Last Treatment Date Treating Clinician Comments Source Elevated troponin I level Elevated troponin I level Disease Active 08-14 00:00: 00 [facility] Elevated brain natriureti c peptide (BNP) level Elevated brain natriureti c peptide (BNP) level Disease Active 08-14 00:00: 00 [facility] Essential hypertensi on Essential hypertensi on Disease Active 08-14 00:00: 00 [facility] ELIEZER (acute kidney injury) ELIEZER (acute kidney injury) Disease Active 08-14 00:00: 00 [facility] Type 2 diabetes mellitus with other specified complicati on Type 2 diabetes mellitus with other specified complicati on Disease Active 08-14 00:00: 00 [facility] Hypertensi on, unspecifie d type Hypertensi on, unspecifie d type Disease Active 08-13 00:00: 00 [facility] NSTEMI (non-ST elevated myocardial infarction ) NSTEMI (non-ST elevated myocardial infarction ) Disease Active 2022-04 00:00: 00 [facility] Allergies, Adverse Reactions, Alerts Allergy Name Allergy Type Status Severity Reaction(s) Onset Date Inactive Date Treating Clinician Comments Source NO KNOWN ALLERGIE S Drug Class Active [facility] Social History Social Habit Start Date Stop Date Quantity Comments Source [facility] 2023-08-23 00:00:00 2023-08-23 00:00:00 [facility] Alcohol intake 2023-08-22 00:00:00 2023-08-22 00:00:00 Lifetime non-drinker (finding) [facility] Tobacco use and exposure 2023-04-21 00:00:00 2023-04-21 00:00:00 Smokeless tobacco non-user [facility] Sex Assigned At 1965 00:00:00 1965 00:00:00 [facility] Smoking Status Start Date Stop Date Source Never smoked tobacco [facility] Medications Ordered Medication Name Filled Medication Name Start Date Stop Date Current Medication? Ordering Clinician Indication Dosage Frequency Signature (SIG) Comments Components Source acarbose 25 mg tablet 08-23 00:00: 00 Yes [id number] 25mg Take 1 tablet by mouth in the morning and 1 tablet at noon and 1 tablet in the evening. Take with meals. [facility] metFORMIN 500 mg 24 hr tablet 08-23 00:00: 09-23 04:59 :00 Yes [id number] 500mg Take 1 tablet by mouth in the morning and 1 tablet in the evening. Take with meals. Do all this for 30 days. [facility] amLODIPine 10 mg tablet 08-23 00:00: 09-23 04:59 :00 Yes [id number] 10mg Take 1 tablet by mouth in the morning for 30 days. [facility] tamsulosin 0.4 mg 24 hr capsule 08-23 00:00: 00 09-23 04:59 :00 Yes [id number] .4mg Take 1 capsule by mouth in the morning for 30 days. [facility] levoFLOXaci n 500 mg tablet 08-23 00:00: 00 08-26 04:59 :00 Yes [id number] 500mg Take 1 tablet by mouth every 24 (twenty-fo ur) hours for 2 days. [facility] cefTRIAXone (ROCEPHIN) 1,000 mg in NaCl [...] Urine
D uration of therapy: Once (ED) [facility] D5W IV infusion 1,000 mL 08-22 15:00: 00 08-22 16:53 :22 No 1000mL at 50 mL/hr, IV Infusion, ONCE, 1 dose, On Wed08/23/23 at 1000, Routine [facility] amLODIPine (NORVASC) tablet 5 mg 08-22 14:00: 00 Yes 5mg 5 mg, Oral, DAILY, First dose on Wed08/23/23 at 0900, Until Discontinu ed, Routine [facility] D5W 0.45% NaCl (1/2NS) IV infusion 1,000 mL 08-22 02:29: 00 08-23 17:53 :57 No 1000mL at 75 mL/hr, 1,000 mL, IV Infusion, CONTINUOUS , Starting on Wed08/22/23 at 2130, Until Wed08/24/23 at 1253, Routine [facility] D5W IV infusion 1,000 mL 08-21 21:30: 00 08-22 02:27 :22 No 1000mL at 100 mL/hr, IV Infusion, CONTINUOUS , Starting on Wed08/22/23 at 1630, Until Wed08/22/23 at 2127, Routine [facility] Sliding Scale Insulin - Lispro (HumaLOG) 08-21 21:00: 00 Yes Subcutaneo us, Q4H, First dose on Wed08/22/23 at 1600, Until Discontinu ed, Routine [facility] glucagon (GLUCAGEN DIAGNOSTIC KIT) injection 1 mg 08-21 20:17: 12 Yes 1mg 1 mg, Intramuscu lar, PRN, Starting on Wed08/22/23 at 1517, Until Discontinu ed, HAO, Blood Glucose < or = 70 mg/dL and patient is NPO, unable to swallow or has mental changes. [facility] dextrose 50 % in water (D50W) injection 25 mL 08-21 20:17: 12 Yes 25mL 25 mL, Slow IV Push, PRN, Starting on Wed08/22/23 at 1517, Until Discontinu ed, HAO, Blood Glucose < or = 70 mg/dL and patient is NPO, unable to swallow or has mental status changes. [facility] D5W IV infusion 1,000 mL 08-21 17:45: 00 08-21 20:16 :11 No 1000mL at 100 mL/hr, IV Infusion, CONTINUOUS , Starting on Wed08/22/23 at 1245, Until Wed08/22/23 at 1516, Routine [facility] tamsulosin (FLOMAX) capsule 0.4 mg 08-21 14:00: 00 Yes .4mg 0.4 mg, Oral, DAILY, First dose on Wed08/22/23 at 0900, Until Discontinu ed, Routine [facility] docusate (COLACE) capsule 100 mg 08-21 13:00: 00 Yes 100mg 100 mg, Oral, BID, First dose on Wed08/22/23 at 0800, Until Discontinu ed, Routine [facility] heparin (porcine) injection 5,000 Units 08-21 13:00: 00 Yes 5000U 5,000 Units, Subcutaneo us, Q12H, First dose on Wed08/22/23 at 0800, Until Discontinu ed, Routine [facility] D5W 0.45% NaCl (1/2NS) IV infusion 1,000 mL 08-21 06:15: 00 08-21 16:44 :38 No 1000mL at 100 mL/hr, 1,000 mL, IV Infusion, CONTINUOUS , Starting on Wed08/22/23 at 0115, Until Wed08/22/23 at 1144, Routine [facility] D5W 0.45% NaCl (1/2NS) Bolus infusion 1,000 mL 08-21 06:00: 00 08-21 06:21 :00 No 1000mL at 999 mL/hr, 1,000 mL, IV Infusion, ONCE, 1 dose, On Wed08/22/23 at 0100, Routine [facility] NaCl 0.9% (NS) bolus infusion 1,000 mL 08-21 04:15: 00 08-21 05:05 :00 No 1000mL at 999 mL/hr, 1,000 mL, IV Infusion, ONCE, 1 dose, On 08/21/23 at 2315, STAT [facility] bisacodyL (DULCOLAX) tablet 10 mg 08-21 04:02: 51 Yes 10mg 10 mg, Oral, QDAILYPRN, Starting on 08/21/23 at 2302, Until Discontinu ed, Routine, Constipati on [facility] ondansetron (ZOFRAN (PF)) injection 4 mg 08-21 04:02: 17 Yes 4mg 4 mg, Slow IV Push, Q6HPRN, Starting on 08/21/23 at 2302, Until Discontinu ed, Routine, Nausea and Vomiting (N/V) [facility] FENTanyl PF (SUBLIMAZE (PF)) injection 12.5 mcg 08-21 04:02: 09 08-22 04:01 :09 No 12.5ug 12.5 mcg, Slow IV Push, Q6HPRN, Starting on 08/21/23 at 2302, Until 08/22/23 at 2301, Routine, Pain (scale 7-10), Pain (scale 4-6) [facility] acetaminoph en (TYLENOL) tablet 650 mg 08-21 04:01: 56 Yes 650mg 650 mg, Oral, Q6HPRN, Starting on 08/21/23 at 2301, Until Discontinu ed, Routine, Pain (scale 1-3) [facility] magnesium citrate solution 296 mL 08-21 01:45: 00 08-21 01:25 :00 No 296mL 296 mL, Oral, ONCE, 1 dose, On 08/21/23 at 2045, Routine [facility] amLODIPine 5 mg tablet 08-16 00:00: 00 08-23 00:00 :00 No [id number] 5mg Take 1 tablet by mouth in the morning for 30 days. [facility] lactulose (CEPHULAC) solution 45 mL 08-15 15:45: 00 08-15 15:21 :00 No 45mL 45 mL, Oral, ONCE, 1 dose, On Wed08/16/23 at 1045, Routine [facility] amLODIPine (NORVASC) tablet 5 mg 08-15 14:00: 00 Yes 5mg 5 mg, Oral, DAILY, First dose on Wed08/16/23 at 0900, Until Discontinu ed, Routine [facility] sennosides (SENOKOT) tablet 8.6 mg 08-15 14:00: 00 Yes 8.6mg 8.6 mg, Oral, DAILY, First dose on Wed08/16/23 at 0900, Until Discontinu ed, Routine [facility] losartan (COZAAR) tablet 25 mg 08-15 14:00: 00 Yes 25mg 25 mg, Oral, DAILY, First dose (after last modificati on) on Wed08/16/23 at 0900, Until Discontinu ed, Routine [facility] docusate (COLACE) capsule 100 mg 08-15 13:00: 00 Yes 100mg 100 mg, Oral, BID, First dose on Wed08/16/23 at 0800, Until Discontinu ed, Routine [facility] lactulose (CEPHULAC) solution 30 mL 08-15 10:00: 00 08-15 09:33 :00 No 30mL 30 mL, Oral, ONCE, 1 dose, On Wed08/16/23 at 0500, Routine [facility] metFORMIN 500 mg 24 hr tablet 08-15 00:00: 00 08-23 00:00 :00 No [id number] 500mg Take 1 tablet by mouth in the morning and 1 tablet in the evening. Take with meals. Do all this for 30 days. [facility] acarbose 25 mg tablet 08-15 00:00: 00 08-23 00:00 :00 No [id number] 25mg Take 1 tablet by mouth in the morning and 1 tablet at noon and 1 tablet in the evening. Take with meals. Do all this for 30 days. [facility] pioglitazon e 15 mg tablet 08-15 00:00: 00 08-23 00:00 :00 No [id number] 15mg Take 1 tablet by mouth in the morning for 30 days. [facility] tamsulosin 0.4 mg 24 hr capsule 08-15 00:00: 00 08-23 00:00 :00 No [id number] .4mg Take 1 capsule by mouth in the morning for 30 days. [facility] losartan 25 mg tablet 08-15 00:00: 00 08-23 00:00 :00 No [id number] 25mg Take 1 tablet by mouth in the morning for 30 days. [facility] glipiZIDE (GLUCOTROL) tablet 5 mg 08-14 21:30: 00 Yes 5mg 5 mg, Oral, BIDAC, First dose on 08/15/23 at 1630, Until Discontinu ed, Routine [facility] KCL (KLOR-CON M20) tablet 40 mEq 08-14 21:30: 00 08-14 21:21 :00 No 40meq 40 mEq, Oral, ONCE, 1 dose, On 08/15/23 at 1630, Routine [facility] pioglitazon e (ACTOS) tablet 7.5 mg 08-14 17:00: 00 08-15 12:47 :51 No 7.5mg 7.5 mg, Oral, DAILY, First dose on 08/15/23 at 1200, Until Discontinu ed, Routine [facility] tamsulosin (FLOMAX) capsule 0.4 mg 08-14 15:49: 00 Yes .4mg 0.4 mg, Oral, DAILY, First dose on 08/15/23 at 1100, Until Discontinu ed, Routine [facility] amLODIPine (NORVASC) tablet 10 mg 08-14 14:00: 00 08-14 15:51 :30 No 10mg 10 mg, Oral, DAILY, First dose on 08/15/23 at 0900, Until Discontinu ed, Routine [facility] heparin (porcine) injection 5,000 Units 08-14 03:00: 00 08-14 06:07 :44 No 5000U 5,000 Units, Subcutaneo us, Q8H, First dose on 08/14/23 at 2200, Until Discontinu ed, Routine [facility] Sliding Scale Insulin - Lispro (HumaLOG) 08-14 02:00: 00 08-14 18:06 :14 No Subcutaneo us, TID MEALS+HS, First dose on 08/14/23 at 2100, Until Discontinu ed, Routine [facility] glucagon (GLUCAGEN DIAGNOSTIC KIT) injection 1 mg 08-14 00:36: 37 Yes 1mg 1 mg, Intramuscu lar, PRN, Starting on 08/14/23 at 1936, Until Discontinu ed, HAO, Blood Glucose < or = 70 mg/dL and patient is NPO, unable to swallow or has mental changes. [facility] dextrose 50 % in water (D50W) injection 25 mL 08-14 00:36: 37 Yes 25mL 25 mL, Slow IV Push, PRN, Starting on 08/14/23 at 1936, Until Discontinu ed, HAO, Blood Glucose < or = 70 mg/dL and patient is NPO, unable to swallow or has mental status changes. [facility] acetaminoph en (TYLENOL) tablet 650 mg 08-14 00:36: 24 Yes 650mg 650 mg, Oral, Q6HPRN, Starting on 08/14/23 at 1936, Until Discontinu ed, Routine, Pain (scale 1-3) [facility] aspirin chewable tablet 324 mg 08-13 23:15: 00 08-13 22:56 :00 No [id number] 324mg 324 mg, Oral, ONCE, 1 dose, On 08/14/23 at 1815, HAO [facility] lidocaine 2% viscous (LIDOCAINE VISCOUS) 2 % solution 15 mL 08-13 23:00: 00 08-13 22:10 :00 No [id number] 15mL 15 mL, Oral, ONCE, 1 dose, On 08/14/23 at 1800, Routine [facility] KCL (KLOR-CON M20) tablet 20 mEq 08-13 22:30: 00 08-13 22:59 :00 No [id number] 20meq 20 mEq, Oral, ONCE, 1 dose, On 08/14/23 at 1730, [facility] metoprolol tartrate (LOPRESSOR) tablet 50 mg 08-13 22:00: 00 08-13 22:58 :00 No [id number] 50mg 50 mg, Oral, ONCE, 1 dose, On 08/14/23 at 1700, [facility] iopamidol (ISOVUE 370-500 mL) injection 80 mL 08-13 21:30: 00 08-13 21:45 :00 No [id number] 80mL 80 mL, Intravenou s, ONCE, 1 dose, On 08/14/23 at 1645, Routine [facility] acetaminoph en (TYLENOL) tablet 650 mg 08-13 21:15: 00 08-13 22:57 :00 No [id number] 650mg 650 mg, Oral, ONCE, 1 dose, On 08/14/23 at 1615, [facility] amLODIPine (NORVASC) tablet 5 mg 08-13 21:15: 00 08-13 22:58 :00 No [id number] 5mg 5 mg, Oral, ONCE, 1 dose, On 08/14/23 at 1615, [facility] NaCl 0.9% (NS) bolus infusion 1,000 mL 08-13 21:15: 00 08-13 21:50 :00 No [id number] 1000mL at 999 mL/hr, 1,000 mL, IV Infusion, ONCE, 1 dose, On 08/14/23 at 1615, [facility] insulin NPH (HUMULIN N) injection 9 Units 2022-04 14:00: 00 Yes 9U 9 Units, Subcutaneo us, QAM WITH BREAKFAST, First dose (after last modificati on) on Wed04/24/23 at 0800, Until Discontinu ed, Routine [facility] losartan 25 mg tablet 2022-04 00:00: 00 08-15 00:00 :00 No [id number] 25mg Take 1 tablet by mouth in the morning. [facility] tamsulosin (FLOMAX) 0.4 mg 24 hr capsule 2022-04 00:00: 00 08-15 00:00 :00 No [id number] .4mg Take 1 capsule by mouth in the morning. [facility] metFORMIN 500 mg tablet 2022-04 00:00: 00 05-23 05:59 :00 No [id number] Take 1 tablet by mouth 2 (two) times daily with meals for 7 days, THEN 2 tablets 2 (two) times daily with meals for 21 days. [facility] insulin lispro (human) (HumaLOG U-100) injection 3 Units 2022-04 23:00: 00 Yes 3U 3 Units, Subcutaneo us, TID MEALS, First dose (after last modificati on) on Wed04/23/23 at 1700, Until Discontinu ed, Routine [facility] insulin NPH (HUMULIN N) injection 5 Units 2022-04 23:00: 00 Yes 5U 5 Units, Subcutaneo us, QPM, First dose (after last modificati on) on Wed04/23/23 at 1700, Until Discontinu ed, Routine [facility] losartan (COZAAR) tablet 25 mg 2022-04 15:00: 00 Yes 25mg 25 mg, Oral, DAILY, First dose on Wed04/23/23 at 0900, Until Discontinu ed, Routine [facility] Potassium Bicarb-Citr ic Acid (EFFER-K) effervescen t tablet 40 mEq 2022-04 13:00: 00 04-23 13:33 :00 No 40meq 40 mEq, Oral, ONCE, 1 dose, On Wed04/23/23 at 0700, Routine [facility] ramelteon (ROZEREM) tablet 8 mg 2022-04 10:45: 00 04-23 10:51 :00 No 8mg 8 mg, Oral, ONCE NOW, 1 dose, On Wed04/23/23 at 0500, Routine [facility] Blood-Gluco se Meter (ACCU-CHEK GUIDE GLUCOSE METER) [facility] [place] 00:00: 00 Yes [id number] Use as directed [facility] lancets 33 gauge [facility] [place]-04 00:00: 00 Yes [id number] Use as directed [facility] blood sugar diagnostic (ACCU-CHEK GUIDE TEST STRIPS) strip 2022-04 00:00: 00 Yes [id number] Use as directed [facility] pioglitazon e 15 mg tablet 2022-04 00:00: 00 08-15 00:00 :00 No [id number] 7.5mg Take 0.5 tablets by mouth in the morning. [facility] acarbose 25 mg tablet 2022-04 00:00: 00 08-15 00:00 :00 No [id number] 25mg Take 1 tablet by mouth in the morning and 1 tablet at noon and 1 tablet in the evening. Take with meals. [facility] atorvastati n 80 mg tablet 2022-04 00:00: 00 05-24 05:59 :00 No [id number] 80mg Take 1 tablet by mouth at bedtime for 30 days. [facility] glipiZIDE 5 mg tablet 2022-04 00:00: 00 05-24 05:59 :00 No [id number] 5mg Take 1 tablet by mouth 2 (two) times daily before breakfast and dinner for 30 days. [facility] enoxaparin (LOVENOX) injection 40 mg 2022-04 15:00: 00 Yes 40mg 40 mg, Subcutaneo us, DAILY, First dose on Wed04/22/23 at 0900, Until Discontinu ed, Routine [facility] insulin NPH (HUMULIN N) injection 8 Units 2022-04 14:00: 00 04-23 19:10 :37 No 8U 8 Units, Subcutaneo us, QAM WITH BREAKFAST, First dose on Wed04/22/23 at 0800, Until Discontinu ed, Routine [facility] insulin NPH (HUMULIN N) injection 4 Units 2022-04 23:00: 00 04-23 19:10 :37 No 4U 4 Units, Subcutaneo us, QPM, First dose on Wed04/21/23 at 1700, Until Discontinu ed, [facility] lispro (human[facility] (HumaLOG U-100) injection 2 Units 2022-04 23:00: 00 04-23 19:10 :37 No 2U 2 Units, Subcutaneo us, TID MEALS, First dose (after last modificati on) on Wed04/21/23 at 1700, Until Discontinu ed, Routine [facility] NaCl 0.9% (NS) IV infusion 250 mL 2022-04 21:15: 00 04-22 20:03 :10 No [id number] 250mL at 20 mL/hr, IV Infusion, CONTINUOUS , Starting on Wed04/21/23 at 1515, Until Wed04/22/23 at 1403, Routine
To keep vein open
[facility] perflutren lipid microsphere s (DEFINITY) injection 2 mL 2022-04 21:00: 00 04-21 20:15 :00 No [id number] 2mL 2 mL, IV Push, ONCE, 1 dose, On Wed04/21/23 at 1500, Routine [facility] atropine injection 1 mg 2022-04 21:00: 00 04-21 20:44 :00 No [id number] 1mg 1 mg, Slow IV Push, ONCE, 1 dose, On Wed04/21/23 at 1500, Routine [facility] DOBUTamine (DOBUTREX) 250 mg/250 mL RTU infusion 2022-04 20:13: 51 04-22 20:03 :10 No [id number] 5ug/kg/ min 5 mcg/kg/min ?59 kg (17.7 [...] the Dobutamine infusion. (see Adjunctive Therapy)<b r> [facility] perflutren protein-A microsphr (OPTISON) injection 3 mL 2022-04 17:15: 00 04-21 15:22 :00 No [id number] 3mL 3 mL, IV Push, ONCE, 1 dose, On Wed04/21/23 at 1115, Routine [facility] potassium chloride in water 10 mEq/100 mL RTU 10 mEq 2022-04 17:00: 00 04-21 20:59 :00 No 10meq 10 mEq, IV Piggyback, Q1H, 4 doses, First dose (after last reorder) on Wed04/21/23 at 1100, Last dose on Wed04/21/23 at 1400, Administer over 60 Minutes, 100 mL [facility] tamsulosin (FLOMAX) capsule 0.4 mg 2022-04 15:00: 00 Yes .4mg 0.4 mg, Oral, DAILY, First dose on Wed04/21/23 at 0900, Until Discontinu ed, Routine [facility] aspirin chewable tablet 81 mg 2022-04 15:00: 00 04-22 16:28 :38 No 81mg 81 mg, Oral, DAILY, First dose on Wed04/21/23 at 0900, Until Discontinu ed, Routine [facility] aspirin tablet 325 mg 2022-04 15:00: 00 04-21 06:21 :21 No 325mg 325 mg, Oral, DAILY, First dose on Wed04/21/23 at 0900, Until Discontinu ed, Routine [facility] Sliding Scale Insulin - Lispro (HumaLOG) 2022-04 14:00: 00 Yes Subcutaneo us, TID MEALS+HS, First dose on Wed04/21/23 at 0800, Until Discontinu ed, Routine [facility] magnesium sulfate in water 2 gram/50 mL (4 %) infusion 2 g 2022-04 12:30: 00 04-21 15:11 :00 No 2g 2 g, IV Piggyback, Administer over 60 Minutes, ONCE, 1 dose, On Wed04/21/23 at 0630, Routine [facility] Potassium Bicarb-Citr ic Acid (EFFER-K) effervescen t tablet 40 mEq 2022-04 12:30: 00 04-21 12:36 :00 No 40meq 40 mEq, Oral, ONCE, 1 dose, On Wed04/21/23 at 0630, [facility] glargine (LANTUS U-100) injection 9 Units 2022-04 07:45: 00 04-21 21:08 :08 No .15U/kg /d 9 Units (rounded from 8.745 Units = 0.15 Units/kg/d ay ?58.3 kg), Subcutaneo us, QHS, First dose (after last modificati on) on Wed04/21/23 at 0145, Until Discontinu ed, Routine [facility] atorvastati n (LIPITOR) tablet 80 mg 2022-04 06:30: 00 Yes 80mg 80 mg, Oral, QHS, First dose on Wed04/21/23 at 0030, Until Discontinu ed, Routine [facility] dextrose 50 % in water (D50W) injection 25 mL 2022-04 06:24: 50 Yes 25mL 25 mL, Slow IV Push, PRN, Starting on Wed04/21/23 at 0024, Until Discontinu ed, HAO, Blood Glucose < or = 70 mg/dL and patient is NPO, unable to swallow or has mental status changes. [facility] acetaminoph en (TYLENOL) tablet 650 mg 2022-04 05:53: 21 Yes 650mg 650 mg, Oral, Q6HPRN, Starting on Wed04/20/23 at 2353, Until Discontinu ed, Routine, Pain (scale 1-3) [facility] NaCl 0.9% (NS) bolus infusion 1,000 mL 2022-04 04:00: 00 04-21 03:45 :00 No 1000mL at 999 mL/hr, 1,000 mL, IV Infusion, ONCE, 1 dose, On Wed04/20/23 at 2200, STAT [facility] clopidogreL (PLAVIX) 300 mg tablet 300 mg 2022-04 03:30: 00 04-21 02:50 :00 No 300mg 300 mg, Oral, ONCE, 1 dose, On Wed04/20/23 at 2130, HAO [facility] HEPARIN SODIUM (PORCINE) 1,000 UNIT/ML BOLUS ACS ORDER SET 2022-04 02:45: 00 04-21 02:53 :00 No 60U/kg 3,540 Units (60 Units/kg ?59 kg), IV Push, ONCE, 1 dose, On Wed04/20/23 at 2044, HAO [facility] heparin 25,000 Units/250 mL (Premixed Bag) [...] INITIAL BOLUS OR INITIAL INFUSION RATE.
[facility] Vital Signs Vital Name Observation Time Observation Value Comments S ource Systolic blood pressure 2023-08-24 13:02:00 150 mm[Hg] [facility] Diastolic blood pressure 2023-08-24 13:02:00 88 mm[Hg] [facility] Heart rate 2023-08-24 13:02:00 79 /min [facility] Body temperature 2023-08-24 13:02:00 36.44 Deya [facility] Respiratory rate 2023-08-24 13:02:00 14 /min [facility] Oxygen saturation in Arterial blood by Pulse oximetry 2023-08-24 13:02:00 98 /min [facility] Body weight 2023-08-24 08:43:00 58.469 kg [facility] BMI 2023-08-24 08:43:00 22.83 kg/m2 [facility] Body height 2023-08-22 04:52:00 160 cm [facility] Systolic blood pressure 2023-08-16 16:53:00 154 mm[Hg] [facility] Diastolic blood pressure 2023-08-16 16:53:00 94 mm[Hg] [facility] Heart rate 2023-08-16 16:53:00 82 /min [facility] Body temperature 2023-08-16 16:53:00 36.61 Deya [facility] Respiratory rate 2023-08-16 16:53:00 16 /min [facility] Oxygen saturation in Arterial blood by Pulse oximetry 2023-08-16 16:53:00 99 /min [facility] Body weight 2023-08-16 09:56:00 56.473 kg [facility] BMI 2023-08-16 09:56:00 22.05 kg/m2 [facility] Body height 2023-08-15 04:07:00 160 cm [facility] Systolic blood pressure 2023-04-23 18:11:00 141 mm[Hg] [facility] Diastolic blood pressure 2023-04-23 18:11:00 80 mm[Hg] [facility] Heart rate 2023-04-23 18:11:00 101 /min [facility] Body temperature 2023-04-23 18:11:00 35.89 Deya [facility] Respiratory rate 2023-04-23 18:11:00 18 /min [facility] Oxygen saturation in Arterial blood by Pulse oximetry 2023-04-23 18:11:00 98 /min [facility] Body weight 2023-04-22 09:57:00 57.561 kg [facility] BMI 2023-04-22 09:57:00 22.48 kg/m2 [facility] Body height 2023-04-21 20:00:00 160 cm [facility] Procedures Procedure Date / Time Performed Performing Clinician Source POCT GLUCOSE (AUTOMATED) 2023-08-24 16:13:00 Jami Banda [facility] POCT GLUCOSE (AUTOMATED) 2023-08-24 12:34:00 Jami Banda [facility] BASIC METABOLIC PANEL (NA, K, CL, CO2, GLUCOSE, BUN, CREATININE, CA) 2023-08-24 08:42:00 Jerry Fields [facility] [facility] WITH DIFF 2023-08-24 08:42:00 Jerry Fields [facility] POCT GLUCOSE (AUTOMATED) 2023-08-24 05:46:00 Jami Banda [facility] BASIC METABOLIC PANEL (NA, K, CL, CO2, GLUCOSE, BUN, CREATININE, CA) 2023-08-24 01:37:00 Jerry Fields [facility] POCT GLUCOSE (AUTOMATED) 2023-08-24 01:27:00 Jami Banda [facility] POCT GLUCOSE (AUTOMATED) 2023-08-23 21:29:00 Jami Banda [facility] BASIC METABOLIC PANEL (NA, K, CL, CO2, GLUCOSE, BUN, CREATININE, CA) 2023-08-23 17:41:00 Jerry Fields [facility] POCT GLUCOSE (AUTOMATED) 2023-08-23 16:42:00 Jami Banda [facility] POCT GLUCOSE (AUTOMATED) 2023-08-23 12:36:00 Jami Banda [facility] POCT GLUCOSE (AUTOMATED) 2023-08-23 09:09:00 Jami Banda [facility] MAGNESIUM 2023-08-23 08:23:00 Jerry Fields [facility] BASIC METABOLIC PANEL (NA, K, CL, CO2, GLUCOSE, BUN, CREATININE, CA) 2023-08-23 08:23:00 Jerry Fields [facility] CBC WITH DIFF 2023-08-23 08:23:00 Jerry Fields [facility] POCT GLUCOSE (AUTOMATED) 2023-08-23 04:52:00 Jami Banda [facility] POCT GLUCOSE (AUTOMATED) 2023-08-23 00:42:00 Jami Banda [facility] BASIC METABOLIC PANEL (NA, K, CL, CO2, GLUCOSE, BUN, CREATININE, CA) 2023-08-23 00:38:00 Jerry Fields [facility] POCT GLUCOSE (AUTOMATED) 2023-08-22 21:18:00 Jami Banda [facility] URIC ACID 2023-08-22 19:21:00 Alyssa Cain [facility] PROTEIN CREAT RATIO URINE RANDOM 2023-08-22 19:21:00 Alyssa Cain [facility] CORTISOL AM 2023-08-22 19:20:00 Alyssa Cain [facility] BASIC METABOLIC PANEL (NA, K, CL, CO2, GLUCOSE, BUN, CREATININE, CA) 2023-08-22 13:21:00 Lyubov Banda [facility] LACTIC ACID WHOLE BLOOD 2023-08-22 09:16:00 Loreta Banda mmad [facility] MAGNESIUM 2023-08-22 08:30:00 Lyubov Banda [facility] TROPONIN I 2023-08-22 08:30:00 Lyubov Banda [facility] CBC WITH DIFF 2023-08-22 08:30:00 [facility] 2023-08-22 08:30:00 Lyubov Banda [facility] PHOSPHORUS 2023-08-22 04:01:00 Lyubov Banda [facility] BASIC METABOLIC PANEL (NA, K, CL, CO2, GLUCOSE, BUN, CREATININE, CA) 2023-08-22 04:01:00 Cosme Spring [facility] URINALYSIS 2023-08-22 01:52:00 Cosme Spring [facility] CT ABDOMEN PELVIS WO CONTRAST 2023-08-22 01:26:17 Cosme Spring [facility] CREATINE KINASE 2023-08-22 01:24:00 Lyubov Banda [facility] LIPASE 2023-08-22 01:24:00 [facility] METABOLIC PANEL ([id number]) 2023-08-22 01:24:00 Singer [facility] CBC WITH DIFF 2023-08-22 01:24:00 Singer [facility] POCT GLUCOSE (AUTOMATED) 2023-08-16 21:51:00 Yue Fields [facility] POCT GLUCOSE (AUTOMATED) 2023-08-16 16:54:00 Yue Fields [facility] POCT GLUCOSE (AUTOMATED) 2023-08-16 12:45:00 Yue Fields [facility] POCT GLUCOSE (AUTOMATED) 2023-08-16 02:06:00 Yue Fields [facility] POCT GLUCOSE (AUTOMATED) 2023-08-15 21:29:00 Yue Fields [facility] POCT GLUCOSE (AUTOMATED) 2023-08-15 16:39:00 Yue Fields [facility] POCT GLUCOSE (AUTOMATED) 2023-08-15 13:08:00 Yue Fields [facility] TROPONIN I 2023-08-15 10:41:00 Juventino [facility] BASIC METABOLIC PANEL (NA, K, CL, CO2, GLUCOSE, BUN, CREATININE, CA) 2023-08-15 10:41:00 Shanice [facility] CBC WITH DIFF 2023-08-15 10:41:00 Juventino [facility] PROSTATIC SPECIFIC ANTIGEN 2023-08-15 05:32[facility]23-08-15 05:32[facility]00 [facility]ATED[facility] 2023-08-15 04:03:00 Yue Fields [facility] URINALYSIS 2023 22:15:00 Umang Botello [facility] XR CHEST 1 VW 2023 21:46:00 Umang Botello [facility] CT ABDOMEN PELVIS W CONTRAST 2023 21:34:55 [facility] CT TRAUMA HEAD WO CONTRAST 2023 21:33:20 [facility] HB ECG ROUTINE & RHYTHM STRIP 2023 21:10:12 [facility] PHOSPHORUS 2023 20:47:00 [facility] CREATINE KINASE 2023 20:47:00 [facility] LIP[facility] 2023 20:47:00 [facility] MAGNESIUM 2023 20:47:00 [facility] BETA HYDROXY-BUTYRATE 2023 20:47:00 Farida Botello [facility] TROPONIN I 2023 20:47:00 [facility] COMP. METABOLIC PANEL ([id number]) 2023 20:47:00 [facility] CBC WITH DIFF 2023 20:47:00 Umang Botello [facility] GLYCOSYLATED HEMOGLOBIN (A1C) 2023 20:47:00 Jerry Fields [facility] N-TERMINAL PRO-BNP 2023 20:47:00 Michael Botello [facility] ACUTE CARE VENOUS BLOOD GAS 2023 20:46:00 [facility] LACTIC ACID WHOLE BLOOD 2023 20:46:00 Kian Botello [facility] POCT GLUCOSE(AGE >30DAYS) 2023 20:26:00 [facility] POCT GLUCOSE (AUTOMATED) 2023 20:23:00 [facility] POCT GLUCOSE (AUTOMATED) 2023-04-23 18:09:00 Brien Banda [facility] POCT GLUCOSE (AUTOMATED) 2023-04-23 15:32:00 Brien Banda [facility] MAGNESIUM 2023-04-23 09:09:00 Loghin, Chet Univer [facility] BASIC METABOLIC PANEL (NA, K, CL, CO2, GLUCOSE, BUN, CREATININE, CA) 2023-04-23 09:09:00 Chet Echavarria [facility] POCT GLUCOSE (AUTOMATED) 2023-04-23 02:56:00 Brien Banda [facility] POCT GLUCOSE (AUTOMATED) 2023-04-23 00:32:00 Solo [facility] POCT GLUCOSE (AUTOMATED) 2023-04-22 22:43:00 Solo [facility] POCT GLUCOSE (AUTOMATED) 2023-04-22 20:36:00 Solo [facility] POCT GLUCOSE (AUTOMATED) 2023-04-22 17:44:00 Solo [facility] POCT GLUCOSE (AUTOMATED) 2023-04-22 13:41:00 Solo [facility] MAGNESIUM 2023-04-22 10:37:00 Daja Aaliyah [facility] BASIC METABOLIC PANEL (NA, K, CL, CO2, GLUCOSE, BUN, CREATININE, CA) 2023-04-22 10:37:00 Daja Aaliyah [facility] CBC WITH DIFF 2023-04-22 10:37:00 Daja Aaliyah [facility] POCT GLUCOSE (AUTOMATED) 2023-04-22 03:32:00 Solo [facility] POCT GLUCOSE (AUTOMATED) 2023-04-22 01:34:00 Solo [facility] COMPLETE ECHOCARDIOGRAM DOBUTAMINE STRESS TEST W CONTRAST 2023-04-21 21:15:00 Jeanine Montana [facility] POCT GLUCOSE (AUTOMATED) 2023-04-21 17:36:00 Solo [facility] ACTIVATED PARTIAL THRMPLAS JERMAINE 2023-04-21 16:47:00 Sergio Aponte [facility] TRANSTHORACIC ECHO (TTE) COMPLETE W/ CONTRAST 2023-04-21 15:26:00 Kylie Fuchs [facility] TROPONIN I 2023-04-21 12:39:00 Víctor Fuchs Noel [facility] POCT GLUCOSE (AUTOMATED) 2023-04-21 09:39:00 Brein Banda [facility] MAGNESIUM 2023-04-21 09:10:00 Víctor Fuchs Noel [facility] BASIC METABOLIC PANEL (NA, K, CL, CO2, GLUCOSE, BUN, CREATININE, CA) 2023-04-21 09:10:00 Kylie Fuchs Noel [facility] LIPID PANEL ([id number])(TOTAL CHOLESTEROL, TRIGLYCERIDES, HDL) 2023-04-21 09:10:00 Kylie Fuchs Noel [facility] CBC WITH DIFF 2023-04-21 09:10:00 Víctor Fuchs [facility] ACTIVATED PARTIAL THRMPLAS JERMAINE 2023-04-21 09:10:00 Sergio Aponte [facility] XR CHEST 1 VW 2023-04-21 06:53:47 Víctor Fuchs reddingyue [facility] TROPONIN I 2023-04-21 06:32:00 Víctor Fuchs reddingyue Noel [facility] IRON PANEL 2023-04-21 06:32:00 Víctor Fuchs reddingyue [facility] N-TERMINAL PRO-BNP 2023-04-21 06:32:00 Kylie Fuchs Noel [facility] CRITICAL CARE 2023-04-21 02:54:15 Sergio Aponte [facility] PROTHROMBIN TIME / INR 2023-04-21 02:44:00 Enrique Aponte [facility] ACTIVATED PARTIAL THRMPLAS JERMAINE 2023-04-21 02:44:00 Sergio Aponte [facility] URINALYSIS 2023-04-21 02:33:00 Sergio Aponte [facility] PROTEIN CREAT RATIO URINE RANDOM 2023-04-21 02:33:00 Tavia Fuchsmad Noel [facility] URINE DRUG (IMMUNOASSAY) - COMPREHENSIVE DRUG SCREEN W/O REFLEX 2023-04-21 02:33:00 Sergio Aponet [facility] PHOSPHORUS 2023-04-21 01:55:00 Víctor Fuchs Noel [facility] FERRITIN SERUM 2023-04-21 01:55:00 Víctor Fuchs Noel [facility] TROPONIN I 2023-04-21 01:55:00 [facility] THYROID STIMULATING HORMONE 2023-04-21 01:55:00 Kylie Fuchs Noel [facility] COMP. METABOLIC PANEL ([id number]) 2023-04-21 01:55:00 Sergio Aponte [facility] ETHANOL 2023-04-21 01:55:00 [facility] CBC WITH DIFF 2023-04-21 01:55:00 Sergio Aponte [facility] GLYCOSYLATED HEMOGLOBIN (A1C) 2023-04-21 01:55:00 Kylie Fuchs [facility] POCT GLUCOSE (AUTOMATED) 2023-04-21 01:54:00 Yue Aponte [facility] EKG-12 LEAD 2023-04-21 01:51:41 [facility] Start Date/Time End Date/Time Encounter Type Admission Type Attending Clinicians Care Facility Care Department Encounter ID Source 2023-08-21 19:47:00 2023-08-24 16:32:00 Hospital Encounter Cosme Spring Mohammad A. [facility] 1..840.114 350.1.13.10 4.2.7.2.686 [id number] [facility] 2023-08-20 00:00:00 2023-08-20 00:00:00 Patient Outreach Rosalie Irizarry [id number] 350.1.13.10 4.2.7.2.686 [id number] [facility] 2023-08-17 00:00:00 2023-08-17 00:00:00 Telephone Ricky Rivera [facility] 1.2840.114 350.1.13.10 4.2.7.2.686 [id number] [facility] 2023 14:42:00 2023-08-16 18:40:00 Hospital Encounter Umang Botello [place], Jelani [facility] [id number] 350.1.13.10 4.2.7.2.686 [id number] [facility] 2023-04-27 00:00:00 2023-04-27 00:00:00 Transition of Care Jeannette Dawn JANIS BAEZ 1.2840.114 350.1.13.10 4.2.7.2.686 [id number] [facility] 2023-04-20 19:48:00 2023-04-23 19:54:00 Inpatient X PARVEZ [facility] [id number] [facility] 2023-04-20 19:48:00 2023-04-23 19:54:00 Hospital Encounter Sergio Aponte Rizwan Dacso, Matthew M [facility] 1.2840.114 350.1.13.10 4.2.7.2.686 [id number] [facility] Results Test Description Test Time Test Comments Results Result Co mments Source [facility]24 12:35:27* Test Item Value Reference Range Interpretation Comme nts POCT GLU (test code = 3563254755) 204 mg/dL 70-110 H Lab Interpretation (test cod e = 28282-5) [facility] (NA, K, CL, CO2, GLUCOSE, BUN, CREATININE, CA)2023-08-24 09:45:39* Test Item Value Reference Range Interpretation Comme nts NA (test code = 6921868396) 133 mmol/L 135-145 L K (test code = 4333990780) 3.7 mmol/L 3.5-5.0 CL (test code = 8785923538) 98 mmol/L 98-108 CO2 TOTAL (test code = 9946725178) 27 mmol/L 23-31 AGAP (test code = 9069306784) 8 2-16 BUN (test code = 0425189188) 13 mg/dL 7-23 GLUCOSE (test code = 3453642167) 188 mg/dL 70-110 H CREATININE (test code = 2160-0) 0.63 mg/dL 0.60-1.25 CALCIUM (test code = 2700036820) 9.4 mg/dL 8.6-10.6 eGFR (test code = 77606-3) 111.6 mL/min/1.73m2 CKD-EPI eGFR (2020). Assuming creatinine has been stable day-to-day for at least three months, the eGFR indicates Category G1 (>= 90 mL/min/1.73 m2) Lab Interpretation (test code = 10788-6) Abnormal [facility] with [id number] 09:21:26* Test Item Value Reference Range Interpretation [...] g/dL 31.2-35.0 H RDW-SD (test code = 08746-7) 36.9 fL 38.5-51.6 L RDW-CV (test code = 788-0) 11.6 % 12.1-15.4 L PLT (test code = 777-3) 407 150-328 H MPV (test code = 41381-2) 9.5 fL 9.8-13.0 L NRBC/100 WBC (test code = 0059148506) 0.0 0.0-10.0 NRBC x10^3 (test code = 4975058227) See_Comment [Automated messa ge] The system which generated this result transmitted reference range: 10*3/?L. The reference range was not used to interpret this result as normal/abnormal. GRAN MAT (NEUT) % (test code = 770-8) 63.1 % IMM GRAN % (test code = 3291845500) 0.30 % LYMPH % (test code = 736-9) 21.1 % MONO % (test code = 5905-5) 8.3 % EOS % (test code = 713-8) 6.5 % BASO % (test code = 706-2) 0.7 % GRAN MAT x10^3(ANC) (test code = 5570179239) 3.71 10*3/uL 1.99-6.95 IMM GRAN x10^3 (test code = 6553168226) 0.00-0.06 LYMPH x10^3 (test code = 731-0) 1.24 10*3/uL 1.09-3.23 MONO x10^3 (test code = 742-7) 0.49 10*3/uL 0.36-1.02 EOS x10^3 (test code = 711-2) 0.38 10*3/uL 0.06-0.53 BASO x10^3 (test code = 704-7) 0.04 10*3/uL 0.01-0.09 Lab Interpretation (test code = 08096-1) [facility]2023-08-24 05:47:46* Test Item Value Reference Range Interpretation Comme nts POCT GLU (test code = 1970422758) 126 mg/dL 70-110 H Lab Interpretation (test cod e = 17359-0) Abnormal [facility] Metabolic Panel (NA, K, CL, CO2, GLUCOSE, BUN, CREATININE, CA)2023-08-24 02:27:27* Test Item Value Reference Range Interpretation Comme nts NA (test code = 3133298250) 129 mmol/L 135-145 L K (test code = 7291126089) 3.9 mmol/L 3.5-5.0 CL (test code = 2748982084) 96 mmol/L 98-108 L CO2 TOTAL (test code = 9893570412) 29 mmol/L 23-31 AGAP (test code = 8565635838) 4 2-16 BUN (test code = 5660158022) 14 mg/dL 7-23 GLUCOSE (test code = 3170439891) 185 mg/dL 70-110 H CREATININE (test code = 2160-0) 0.56 mg/dL 0.60-1.25 L CALCIUM (test code = 9608186313) 9.2 mg/dL 8.6-10.6 eGFR (test code = 98463-2) 115.7 mL/min/1.73m2 CKD-EPI eGFR (2020). Assuming creatinine has been stable day-to-day for at least three months, the eGFR indicates Category G1 (>= 90 mL/min/1.73 m2) Lab Interpretation (test code = 61583-9) Abnormal [facility] GLUCOSE (AUTOMATED)2023-08-24 01:28:28* Test Item Value Reference Range Interpretation Comme nts POCT GLU (test code = 4100010464) 210 mg/dL 70-110 H Lab Interpretation (test cod e = 27988-2) Abnormal [facility] GLUCOSE (AUTOMATED)2023-08-23 21:30:04* Test Item Value Reference Range Interpretation Comme nts POCT GLU (test code = 4574950225) 149 mg/dL 70-110 H Lab Interpretation (test cod e = 32354-4) Abnormal [facility] GLUCOSE (AUTOMATED)2023-08-23 16:45:20* Test Item Value Reference Range Interpretation Comme nts POCT GLU (test code = 8337595054) 147 mg/dL 70-110 H Lab Interpretation (test cod e = 21305-0) Abnormal [facility] GLUCOSE (AUTOMATED)2023-08-23 12:36:56* Test Item Value Reference Range Interpretation Comme nts POCT GLU (test code = 4515615729) 131 mg/dL 70-110 H Lab Interpretation (test cod e = 07359-2) Abnormal [facility] GLUCOSE (AUTOMATED)2023-08-23 09:17:23* Test Item Value Reference Range Interpretation Comme nts POCT GLU (test code = 4915829831) 154 mg/dL 70-110 H Lab Interpretation (test cod e = 18744-8) Abnormal [facility] GLUCOSE (AUTOMATED)2023-08-23 05:03:01* Test Item Value Reference Range Interpretation Comme nts POCT GLU (test code = 4244988349) 183 mg/dL 70-110 H Lab Interpretation (test cod e = 61430-2) Abnormal [facility] Metabolic Panel (NA, K, CL, CO2, GLUCOSE, BUN, CREATININE, CA)2023-08-23 01:49:58* Test Item Value Reference Range Interpretation Comme nts NA (test code = 1426305989) 132 mmol/L 135-145 L K (test code = 8631188909) 4.1 mmol/L 3.5-5.0 CL (test code = 7773773973) 101 mmol/L 98-108 CO2 TOTAL (test code = 6851749065) 28 mmol/L 23-31 AGAP (test code = 8459320364) 3 2-16 BUN (test code = 4557046555) 17 mg/dL 7-23 GLUCOSE (test code = 4976071961) 149 mg/dL 70-110 H CREATININE (test code = 2160-0) 0.97 mg/dL 0.60-1.25 CALCIUM (test code = 9684058562) 8.4 mg/dL 8.6-10.6 L eGFR (test code = 12094-2) 91.6 mL/min/1.73m2 CKD-EPI eGFR (2020). Assuming creatinine has been stable day-to-day for at least three months, the eGFR indicates Category G1 (>= 90 mL/min/1.73 m2) Lab Interpretation (test code = 30276-2) Abnormal [facility] GLUCOSE (AUTOMATED)2023-08-23 00:43:06* Test Item Value Reference Range Interpretation Comme nts POCT GLU (test code = 6354789128) 126 mg/dL 70-110 H Lab Interpretation (test cod e = 31873-8) Abnormal [facility] [id number] 22:59:03* Test Item Value Reference Range Interpretation Comme nts IBRAHIMA AM (test code = 6225076975) 24.7 ug/dL 4.5-23.0 H GINA (test code = GINA) Biotin has been reported to cause a positive bias, interpret results relative to patient's use of biotin. Lab Interpretation (test code = 64700-9) [facility]normal [facility])2023-08-22 21:29:10* Test Item Value Reference Range Interpretation Comme [facility] POCT GLU (test code = 2229283857) 341 mg/dL 70-110 H Lab Interpretation (test cod e = 71775-3) Abnormal [facility] Hospital[facility] [id number] 19:53:59* Test Item Value Reference Range Interpretation Comme [facility] URIC ACID (test code = 6607711370) 6.4 mg/dL 3.6-8.0 Lab Interpretation (test cod e = 28613-6) Normal [facility] Metabolic Panel (NA, K, CL, CO2, GLUCOSE, BUN, CREATININE, CA)2023-08-22 14:43:15* Test Item Value Reference Range Interpretation Comme nts NA (test code = 9088879785) 138 mmol/L 135-145 K (test code = 3014962221) 4.6 mmol/L 3.5-5.0 CL (test code = 9158362215) 102 mmol/L 98-108 CO2 TOTAL (test code = 2208272685) 28 mmol/L 23-31 AGAP (test code = 3995522066) 8 2-16 BUN (test code = 9350903429) 34 mg/dL 7-23 H GLUCOSE (test code = 6069819188) 224 mg/dL 70-110 H CREATININE (test code = 2160-0) 1.89 mg/dL 0.60-1.25 H CALCIUM (test code = 8686207252) 9.4 mg/dL 8.6-10.6 eGFR (test code = 83248-6) 41.1 mL/min/1.73m2 CKD-EPI eGFR (2020). Assuming creatinine has been stable day-to-day for at least three months, the eGFR indicates Category G3b (30 - 44 mL/min/1.73 m2) Lab Interpretation (test code = 66470-5) Abnormal [facility] [id number] 14:42:45* Test Item Value Reference Range Interpretation Comme nts CK (test code = 2574203326) 224 U/L 33-194 H Lab Interpretation (test cod e = 50756-0) Abnormal [facility] Hospital[facility] [id number] 12:10:01* Test Item Value Reference Range Interpretation Comme nts PHOSPHORUS (test code = 9344122060) 5.8 mg/dL 2.5-5.0 H Lab Interpretation (test cod e = 42633-6) Abnormal [facility] Hospital[facility] Metabolic Panel (NA, K, CL, CO2, GLUCOSE, BUN, CREATININE, CA)2023-08-22 04:41:19* Test Item Value Reference Range Interpretation Comme nts NA (test code = 3903901770) 124 mmol/L 135-145 L K (test code = 8996587633) 4.7 mmol/L 3.5-5.0 CL (test code = 0946686937) 93 mmol/L 98-108 L CO2 TOTAL (test code = 9196545665) 18 mmol/L 23-31 L AGAP (test code = 8213669468) 13 2-16 BUN (test code = 0599515998) 68 mg/dL 7-23 H GLUCOSE (test code = 6923263402) 116 mg/dL 70-110 H CREATININE (test code = 2160-0) 6.60 mg/dL 0.60-1.25 H CALCIUM (test code = 1599270637) 9.0 mg/dL 8.6-10.6 eGFR (test code = 05962-3) 9.2 mL/min/1.73m2 CKD-EPI eGFR (2020). Assuming creatinine has been stable day-to-day for at least three months, the eGFR indicates Category G5 (<= 14mL/min/1.73 m2) Lab Interpretation (test code = 15395-2) [facility] WO [id number] 02:22:05Exam: CT Abdomen and Pelvis without Contrast, [...] osseous finding. Subacute/chronic left-sided rib fractures.Soft tissues: Unremarkable.[facility]. Metabolic Panel (81107) 2023-08-22 02:21:33* Test Item Value Reference Range Interpretation Comme nts NA (test code = 5665378031) 120 mmol/L 135-145 L K (test code = 0467815306) 4.8 mmol/L 3.5-5.0 CL (test code = 8302354273) 85 mmol/L 98-108 L CO2 TOTAL (test code = 4318672031) 21 mmol/L 23-31 L AGAP (test code = 5671586378) 14 2-16 BUN (test code = 3005612179) 70 mg/dL 7-23 H GLUCOSE (test code = 7693215940) 97 mg/dL 70-110 CREATININE (test code = 2160-0) 8.39 mg/dL 0.60-1.25 H TOTAL BILI (test code = 3945172246) 0.7 mg/dL 0.1-1.1 CALCIUM (test code = 4866524484) 8.8 mg/dL 8.6-10.6 T PROTEIN (test code = 0964936388) 7.2 g/dL 6.3-8.2 ALBUMIN (test code = 5159909294) 4.1 g/dL 3.5-5.0 ALK PHOS (test code = 3676767063) 95 U/L 34-122 ALTv (test code = 1742-6) 12 U/L 5-50 AST(SGOT) (test code = 0319643050) 24 U/L 13-40 eGFR (test code = 58676-1) 6.9 mL/min/1.73m2 CKD-EPI eGFR (2020). Assuming creatinine has been stable day-to-day for at least three months, the eGFR indicates Category G5 (<= 14mL/min/1.73 m2) Lab Interpretation (test code = 36595-8) Abnormal [facility]2024-[facility]-28 02:15:32* Test Item Value Reference Range Interpretation Comme nts LIPASE (test code = 7683139358) 758 U/L 0-220 H Lab Interpretation (test cod e = 73698-1) [facility] [id number] 01:58:31* Test Item Value Reference Range Interpretation [...] g/dL 31.2-35.0 H RDW-SD (test code = 84717-9) 36.0 fL 38.5-51.6 L RDW-CV (test code = 788-0) 11.5 % 12.1-15.4 L PLT (test code = 777-3) 312 150-328 MPV (test code = 85208-4) 9.4 fL 9.8-13.0 L NRBC/100 WBC (test code = 0667531208) 0.0 0.0-10.0 NRBC x10^3 (test code = 2312017543) See_Comment [Automated message] The system which generated this result transmitted reference range: 10*3/?L. The reference range was not used to interpret this result as normal/abnormal. GRAN MAT (NEUT) % (test code = 770-8) 82.7 % IMM GRAN % (test code = 2769441576) 0.50 % LYMPH % (test code = 736-9) 6.7 % MONO % (test code = 5905-5) 9.8 % EOS % (test code = 713-8) 0.2 % BASO % (test code = 706-2) 0.1 % GRAN MAT x10^3(ANC) (test code = 1626814809) 12.19 10*3/uL 1.99-6.95 H IMM GRAN x10^3 (test code = 9376463225) 0.08 10*3/uL 0.00-0.06 H LYMPH x10^3 (test code = 731-0) 0.99 10*3/uL 1.09-3.23 L MONO x10^3 (test code = 742-7) 1.44 10*3/uL 0.36-1.02 H EOS x10^3 (test code = 711-2) 0.03 10*3/uL 0.06-0.53 L BASO x10^3 (test code = 704-7) 0.01-0.09 Lab Interpretation (test code = 82251-5) Abnormal [facility] GLUCOSE (AUTOMATED)2023-08-16 22:02:57* Test Item Value Reference Range Interpretation Comme nts POCT GLU (test code = 1138669565) 112 mg/dL 70-110 H Lab Interpretation (test cod e = 50282-3) Abnormal [facility] GLUCOSE (AUTOMATED)2023-08-16 16:59:58* Test Item Value Reference Range Interpretation Comme nts POCT GLU (test code = 4990295428) 127 mg/dL 70-110 H Lab Interpretation (test cod e = 39556-1) Abnormal [facility] GLUCOSE (AUTOMATED)2023-08-16 12:48:23* Test Item Value Reference Range Interpretation Comme nts POCT GLU (test code = 7728456292) 175 mg/dL 70-110 H Lab Interpretation (test cod e = 50368-4) Abnormal [facility] GLUCOSE (AUTOMATED)2023-08-16 02:07:02* Test Item Value Reference Range Interpretation Comme nts POCT GLU (test code = 9692133683) 195 mg/dL 70-110 H Notified Provide r Lab Interpretation (test code = 38048-9) Abnormal [facility] GLUCOSE (AUTOMATED)2023-08-15 21:36:15* Test Item Value Reference Range Interpretation Comme nts POCT GLU (test code = 0313442300) 284 mg/dL 70-110 H Lab Interpretation (test cod e = 81507-5) Abnormal [facility] GLUCOSE (AUTOMATED)2023-08-15 16:56:02* Test Item Value Reference Range Interpretation Comme nts POCT GLU (test code = 6974745224) 74 mg/dL 70-110 Lab Interpretation (test cod e = 65974-4) Normal [facility] GLUCOSE (AUTOMATED)2023-08-15 13:12:34* Test Item Value Reference Range Interpretation Comme nts POCT GLU (test code = 7249058422) 258 mg/dL 70-110 H Lab Interpretation (test cod e = 03551-0) Abnormal [facility] GLUCOSE (AUTOMATED)2023-08-15 04:04:43* Test Item Value Reference Range Interpretation Comme nts POCT GLU (test code = 1171360641) 120 mg/dL 70-110 H Lab Interpretation (test cod e = 06091-7) [facility]normal [facility] HospitalGlycosylated Hemoglobin (A1C)2023-08-15 01:17:32* Test Item Value Reference Range Interpretation Comme nts HGB A1C (test code = 4548-4) 8.9 % 4.0-5.7 H GINA (test code = GINA) Reference RangesNormal: <5.7%Prediabetes: 5.7 - 6.4%Diabetes: > 6.5% Lab Interpretation (test code = 42935-8) Abnormal [facility] HospitalBeta Lskdzal-Avmzrzwk9643-32-21 01:00:45* Test Item Value Reference Range Interpretation Comme nts BOH (test code = 2641675276) 0.5 mmol/L GINA (test code = GINA) Normal Ranges: ? ? Nonfasting ? Less than 0.1 mmol/L ? ? Overnight Fast ? ? ? Less than 0.4 mmol/L ? ? Fasting (1-2 weeks) ?6-8 mmol/L Test developed and characteristics determined by [facility] Laboratory Services. [facility] HospitalCreatine Vzyvoh2358-67-77 23:07:16* Test Item Value Reference Range Interpretation Comme nts CK (test code = 5864690963) 148 U/L 33-194 Lab Interpretation (test cod e = 49072-4) Normal [facility] HospitalTROPONIN [id number] 22:18:16* Test Item Value Reference Range Interpretation Comme nts TROPONIN I (test code = 5296008503) 0.081 ng/mL <=0.034 H GINA (test code [...] of biotin. Lab Interpretation (test code = 79047-1) Abnormal [facility] HospitalN-TERMINAL MIT-UHY1546-11-20 22:15:55* Test Item Value Reference Range Interpretation Comme [facility] NT-proBNP (test code = 64488-7) 999 pg/mL <=125 H GINA (test code = GINA) Positive: Heart Failure Likely Lab Interpretation (test code = 91177-5) Abnormal [facility] HospitalMagnesium2024-04-20 22:07:17* Test Item Value Reference Range Interpretation Comme nts MAGNESIUM (test code = 4101878094) 1.8 mg/dL 1.7-2.4 Lab Interpretation (test cod e = 07292-3) Normal [facility] HospitalCOMP. METABOLIC PANEL (53396)2023 22:06:57* Test Item Value Reference Range Interpretation Comme nts NA (test code = 5172032903) 130 mmol/L 135-145 L K (test code = 6932326855) 3.4 mmol/L 3.5-5.0 L CL (test code = 9658479630) 93 mmol/L 98-108 L CO2 TOTAL (test code = 3721761236) 26 mmol/L 23-31 AGAP (test code = 4587352754) 11 2-16 BUN (test code = 5269775934) 39 mg/dL 7-23 H GLUCOSE (test code = 4040485971) 142 mg/dL 70-110 H CREATININE (test code = 2160-0) 2.40 mg/dL 0.60-1.25 H TOTAL BILI (test code = 0025212105) 1.2 mg/dL 0.1-1.1 H CALCIUM (test code = 9841999476) 9.1 mg/dL 8.6-10.6 T PROTEIN (test code = 4152644331) 7.7 g/dL 6.3-8.2 ALBUMIN (test code = 1810734616) 4.2 g/dL 3.5-5.0 ALK PHOS (test code = 5549549634) 102 U/L 34-122 ALTv (test code = 1742-6) 16 U/L 5-50 AST(SGOT) (test code = 9060648075) 26 U/L 13-40 eGFR (test code = 14526-9) 30.9 mL/min/1.73m2 CKD-EPI eGFR (2020). Assuming creatinine has been stable day-to-day for at least three months, the eGFR indicates Category G3b (30 - 44 mL/min/1.73 m2) Lab Interpretation (test code = 80938-6) Abnormal [facility] HospitalPhosphorus2024-04-20 22:06:37* Test Item Value Reference Range Interpretation Comme nts PHOSPHORUS (test code = 5174803625) 4.9 mg/dL 2.5-5.0 Lab Interpretation (test cod e = 05812-5) Normal [facility] HospitalLIPASE2024-04-20 22:06:17* Test Item Value Reference Range Interpretation Comme nts LIPASE (test code = 3665777865) 204 U/L 0-220 Lab Interpretation (test cod e = 83678-6) Normal [facility] WITH LQJQ0982-03-29 21:54:56* Test Item Value Reference Range Interpretation [...] g/dL 31.2-35.0 H RDW-SD (test code = 11313-0) 38.1 fL 38.5-51.6 L RDW-CV (test code = 788-0) 11.8 % 12.1-15.4 L PLT (test code = 777-3) 235 150-328 MPV (test code = 68665-9) 11.1 fL 9.8-13.0 NRBC/100 WBC (test code = 8052037502) 0.0 0.0-10.0 NRBC x10^3 (test code = 7189498733) See_Comment [Automated message] The system which generated this result transmitted reference range: 10*3/?L. The reference range was not used to interpret this result as normal/abnormal. GRAN MAT (NEUT) % (test code = 770-8) 80.3 % IMM GRAN % (test code = 6737577369) 0.60 % LYMPH % (test code = 736-9) 8.7 % MONO % (test code = 5905-5) 10.0 % EOS % (test code = 713-8) 0.2 % BASO % (test code = 706-2) 0.2 % GRAN MAT x10^3(ANC) (test code = 6804960050) 10.18 10*3/uL 1.99-6.95 H IMM GRAN x10^3 (test code = 4671553619) 0.07 10*3/uL 0.00-0.06 H LYMPH x10^3 (test code = 731-0) 1.11 10*3/uL 1.09-3.23 MONO x10^3 (test code = 742-7) 1.27 10*3/uL 0.36-1.02 H EOS x10^3 (test code = 711-2) 0.03 10*3/uL 0.06-0.53 L BASO x10^3 (test code = 704-7) 0.03 10*3/uL 0.01-0.09 Lab Interpretation (test code = 65690-4) Abnormal [facility] HospitalXR CHEST 1 [id number] 21:49:58EXAM: XR CHEST 1 2023 4:38 PM HISTORY: 58 years-old Male with r/o infilrate . TECHNIQUE: Portable AP view of the chest. COMPARISON: 04/21/2023 FINDINGS: Lines and tubes: None. Cardiomediastinal: The cardiomediastinal silhouette is unremarkable. Lungs and pleura: The lungs are clear. No focal consolidation,pneumothorax, or pleural effusion is seen. Included osseous structures show no acuteabnormality.[facility] HospitalCT ABDOMEN PELVIS W PBBLZEOJ4730-63-40 21:45:03EXAM: CT ABDOMEN AND PELVIS WITH CONTRAST [...] change involving the spine, sacroiliac jointsand hips ispresent.[facility] HospitalCT TRAUMA HEAD WO JVXSFPZW7552-78-64 21:38:37FULL RESULT: Examination: CT TRAUMA HEAD WO CONTRAST on 2023 4:16 PM Clinical Indication: Headache, hypertensive Comparison: None Technique: Noncontrast imaging was obtained from base to vertex.Findings: The sulci and ventricles were unremarkable. There may be subtlewhite matter microvascularischemic changes, notably in the anteriorperiventricular region, but there is no evidence for hemorrhage or otherclearly acute intracranial process.[facility] HospitalLaokic Acid Whole Qysqp6555-77-47 21:30:25* Test Item Value Reference Range Interpretation Comme [facility] LACTIC ACID (test code = 2034965027) 1.58 mmol/L 0.50-2.20 Lab Interpretation (test cod e = 52848-8) Normal [facility] Care Venous Blood Pxz0971-84-31 21:30:25 * Test Item Value Reference Range Interpretation Comme nts PH (test code = 9186607789) 7.34 7.32-7.42 PCO2 NOY (test code = 9949424200) 45 41-51 PO2 NOY (test code = 5306342087) 24 25-40 L HCO3 NOY (test code = 0183110546) 24 24-28 AC VBE(BEAKER) (test code = 3215952657) -1.9 mEq/L Lab Interpretation (test cod e = 33127-8) Abnormal [facility] GLUCOSE (AUTOMATED)2023 20:26:17* Test Item Value Reference Range Interpretation Comme nts POCT GLU (test code = 7684679071) 165 mg/dL 70-110 H Lab Interpretation (test cod e = 36656-6) Abnormal [facility] GLUCOSE(AGE >30DAYS)2023 20:26:00* Test Item Value Reference Range Interpretation Comme nts POCT Glu (age>30days) (test code = 3342) 165 mg/dL 70-110 A Lab Interpretation (test cod e = 01132-7) [facility] 18:15:28* Test Item Value Reference Range Interpretation Comme nts POCT GLU (test code = 3741404303) 218 mg/dL 70-110 H Lab Interpretation (test cod e = 38260-5) [facility]23 15:35:23* Test Item Value Reference Range Interpretation Comme nts POCT GLU (test code = 1083035828) 186 mg/dL 70-110 H Lab Interpretation (test cod e = 51351-1) [facility]2023-04-23 02:57:57* Test Item Value Reference Range Interpretation Comme nts POCT GLU (test code = 2858613911) 82 mg/dL 70-110 Lab Interpretation (test cod e = 62884-3) Normal [facility] GLUCOSE (AUTOMATED)2023-04-23 00:33:51* Test Item Value Reference Range Interpretation Comme nts POCT GLU (test code = 8532948755) 181 mg/dL 70-110 H Lab Interpretation (test cod e = 42277-9) [facility]2023-04-22 22:54:22* Test Item Value Reference Range Interpretation Comme nts POCT GLU (test code = 2359301505) 127 mg/dL 70-110 H Lab Interpretation (test cod e = 48992-8) [facility]2023-04-22 20:37:54* Test Item Value Reference Range Interpretation Comme nts POCT GLU (test code = 2697343459) 230 mg/dL 70-110 H Lab Interpretation (test cod e = 00390-3) [facility]2023-04-22 17:46:23* Test Item Value Reference Range Interpretation Comme nts POCT GLU (test code = 0995852025) 144 mg/dL 70-110 H Lab Interpretation (test cod e = 97305-2) [facility]2023-04-22 13:42:26* Test Item Value Reference Range Interpretation Comme nts POCT GLU (test code = 4288631180) 229 mg/dL 70-110 H Lab Interpretation (test cod e = 20730-8) Abnormal [facility] GLUCOSE (AUTOMATED)2023-04-22 03:33:49* Test Item Value Reference Range Interpretation Lianet garcía POCT GLU (test code = 5679451235) 222 mg/dL 70-110 H Lab Interpretation (test cod e = 44894-5) Abnormal [facility] GLUCOSE (AUTOMATED)2023-04-22 01:36:03* Test Item Value Reference Range Interpretation Lianet garcía POCT GLU (test code = 5237302288) 282 mg/dL 70-110 H Lab Interpretation (test cod e = 10040-6) Abnormal [facility] HospitalEchocardiogram dobutamine stress test 2023-04-21 22:26:30* Test Item Value Reference Range Interpretation Lianet garcía Height (test code = 2114943897) 63 in Weight (test code = 4619956682) 130 lbs Systolic BP (test code = 7114750841) 122 mmHg Diastolic BP (test code = 3573390855) 81 mmHg Heart Rate (test code = 2405034480) 105 bpm BSA (test code = 5044558217) 1.[address] Depresion (mm) (test code = 5494044533) [address] Depression (mm) (test code = 3983438175) 0 mm Radiology Study observation (narrative) (test code = 91111-2) GINA (test code = GINA) Table formatting [...] left ventricular wall motion is globally hyperkinetic. [facility] HospitalTransthoracic echo (TTE)2023-04-21 18:05:03* Test Item Value Reference Range Interpretation Comme nts Height (test code = 3565473419) 63 in Weight (test code = 5789059709) 130 lbs Systolic BP (test code = 0222768859) 114 mmHg Diastolic BP (test code = 0966774968) 75 mmHg Heart Rate (test code = 9909224499) 98 bpm BSA (test code = 8094553180) 1.61 m2 LVIDD (test code = 2873708903) 4.00 cm Left Ventricular End Diastolic Volume by Teichholz Method (test code = 8475212) 70.0 mL IVS (test code = 8444395146) 1.07 cm Interventricular Septum Diastolic Thickness by 2D (test code = 8330202) 1.07 cm LVPWD (test code = 7770686214) 1.05 cm PW (test code = 4120408435) 1.05 cm 0.6-1.1 EF(Teich) (test code = 0204743305) 62.60 % LVIDS (test code = 6099389716) 2.70 cm Left Ventricular End Systolic Volume by Teichholz Method (test code = 5180137) 26.2 mL FS (test code = 1614897211) 33 % EF - 2D (test code = 86494738) 62.60 % Ao root diam (test code = 9210328849) 3.70 cm Aortic root (test code = 3121170979) 3.7 cm Ao root annulus (test code = 6685771558) 3.7 cm LA size (test code = 0098057669) 3.2 cm LVOT diameter (test code = 9343972579) 2.08 cm LVOT area (test code = 2251938838) 3.40 cm2 MV Peak E Nima (test code = 2467842573) 48.3 cm/s E wave decelartion time (test code = 0703863687) 0.15 s MV Peak A Nima (test code = 7933230902) 74.4 cm/s E/A ratio (test code = 7785420477) 0.65 ratio MV Prop V (test code = 4032342477) 21.20 cm/s LAV(MOD-sp4) (test code = 6540521743) 35.30 mL Tapse (test code = 9411560723) 1.73 cm LVOT stroke volume (test code = 4755276285) 45.20 cm3 LVOT peak nima (test code = 4754492007) 79.0 cm/s LVOT mn grad (test code = 9355520674) 1.3 mmHg AV LVOT peak gradient (test code = 4471471869) 2.50 mmHg LVOT peak VTI (test code = 0972963208) 13.2 cm LV V1 mean (test code = 0375838156) 52.90 cm/s Ao peak nima (test code = 5451868658) 83.8 cm/s AV area peak nima (test code = 9549974180) 3.2 cm2 Ao max PG (test code = 1306556228) 2.80 mm[Hg] AV peak gradient (test code = 0773028911) 2.8 mmHg LA Volume Index (BP) (test code = 6932040011) 25.9 mL/m2 LA volume (BP) (test code = 5842098813) 41.8 mL LAV(MOD-sp2) (test code = 0509431949) 40.90 mL A4C EF (test code = 2411526745) 54.40 % EF(sp4-el) (test code = 2925466749) 55.00 % SV(MOD-sp4) (test code = 7793867245) 53.10 mL SV(sp4-el) (test code = 7266647641) 55.60 mL Radiology Study observation (narrative) (test code = 47447-5) GINA (test code = GINA) ?Left?Ventricle: Left [...] enhancing agent used. Patient exhibited sinus rhythm. [facility] GLUCOSE (AUTOMATED)2023-04-21 17:48:26* Test Item Value Reference Range Interpretation Comme nts POCT GLU (test code = 1454408372) 198 mg/dL 70-110 H Lab Interpretation (test cod e = 58777-0) Abnormal [facility] HospitalXR CHEST 1 [id number] 15:12:07EXAM: XR CHEST 1 VW HISTORY: NSTEMI COMPARISON: None. FINDINGS: Small bandlike densities in the left midlung have more the appearance ofatelectasis than pneumonia. The lungs are well expanded and clearotherwise. The heart and great vessels are normal except for calcium in thearch of the aorta.[facility] GLUCOSE (AUTOMATED)2023-04-21 09:39:57* Test Item Value Reference Range Interpretation Comme nts POCT GLU (test code = 8759445853) 243 mg/dL 70-110 H Lab Interpretation (test cod e = 75918-8) Abnormal [facility] HospitalFerritin Yjxyt6758-52-34 07:28:27* Test Item Value Reference Range Interpretation Comme nts FERRITIN (test code = 4786023088) 76.3 ng/mL 18.0-464.0 GINA (test code = GINA) Biotin has been reported to cause a negative bias, interpret results relative to patient's use of biotin. Lab Interpretation (test code = 24004-8) Normal [facility] HospitalGlycosylated Hemoglobin (A1C)2023-04-21 07:25:47* Test Item Value Reference Range Interpretation Comme nts HGB A1C (test code = 4548-4) 12.6 % 4.0-5.7 H GINA (test code = GINA) Reference RangesNormal: <5.7%Prediabetes: 5.7 - 6.4%Diabetes: > 6.5% Lab Interpretation (test code = 74233-1) Abnormal [facility] HospitalThyroid Stimulating Kkbvxwv8939-48-20 07:24:07 * Test Item Value Reference Range Interpretation Comme nts TSH (test code = 7219812855) 2.56 See_Comment [Automated messa ge] The system which generated this result transmitted reference range: 0.45 - 4.70 mIU/L. The reference range was not used to interpret this result as normal/abnormal. Lab Interpretation (test code = 23921-2) Normal [facility] HospitalPhosphorus2023-12-27 06:52:06* Test Item Value Reference Range Interpretation Comme nts PHOSPHORUS (test code = 9622125398) 3.2 mg/dL 2.5-5.0 Lab Interpretation (test cod e = 24632-5) Normal [facility] HospitalCritical Vjxr4503-23-67 02:54:15NSergio chin MD ? ? 04/20/2023 ?8:54 [...] separately billable procedures and treating other patients. [facility] HospitalTrvanderbilt rehabilitation hospitaldian [id number] 02:30:18* Test Item Value Reference Range Interpretation Comme nts TROPONIN I (test code = 0710787953) 0.154 ng/mL <=0.034 H GINA (test code [...] of biotin. Lab Interpretation (test code = 17666-0) Abnormal [facility] HospitalETHANOL2023-12-27 02:24:46 ALCOHOL<10mg/dL04/20/2023 8:24 PM [facility]<10 Krzirhlj69-637 Toxic>100 Depression of COLORECTAL SURGEON>400 Fatalities ReportedUnCovenant Children's HospitalCOMP. METABOLIC PANEL (46172)2023-04-21 02:19:15* Test Item Value Reference Range Interpretation Comme nts NA (test code = 7252321521) 129 mmol/L 135-145 L K (test code = 2518012526) 3.5 mmol/L 3.5-5.0 CL (test code = 8629002351) 94 mmol/L 98-108 L CO2 TOTAL (test code = 8412915509) 28 mmol/L 23-31 AGAP (test code = 6107274376) 7 2-16 BUN (test code = 3613775241) 26 mg/dL 7-23 H GLUCOSE (test code = 8587632076) 314 mg/dL 70-110 H CREATININE (test code = 7113558745) 0.92 mg/dL 0.60-1.25 TOTAL BILI (test code = 3543271229) 0.8 mg/dL 0.1-1.1 CALCIUM (test code = 7973805482) 8.5 mg/dL 8.6-10.6 L T PROTEIN (test code = 7569458133) 6.0 g/dL 6.3-8.2 L ALBUMIN (test code = 6901519479) 3.3 g/dL 3.5-5.0 L ALK PHOS (test code = 8082076516) 95 U/L 34-122 ALTv (test code = 1742-6) 23 U/L 5-50 AST(SGOT) (test code = 6940956443) 30 U/L 13-40 eGFR (test code = 53657-8) 98.2 mL/min/1.73m2 CKD-EPI eGFR (2020). Assuming creatinine has been stable day-to-day for at least three months, the eGFR indicates Category G1 (>= 90 mL/min/1.73 m2) Lab Interpretation (test code = 34607-0) Abnormal [facility] WITH [id number] 02:03:54* Test Item Value Reference Range Interpretation [...] g/dL 31.2-35.0 H RDW-SD (test code = 42063-5) 36.2 fL 38.5-51.6 L RDW-CV (test code = 788-0) 11.6 % 12.1-15.4 L PLT (test code = 777-3) 178 See_Comment [Automated [employer] ge] The system which generated this result transmitted reference range: 150 - 328 10*3/?L. The reference range was not used to interpret this result as normal/abnormal. MPV (test code = 37870-3) 10.9 fL 9.8-13.0 NRBC/100 WBC (test code = 1222038538) 0.0 See_Comment [Automated [employer] ssage] The system which generated this result transmitted reference range: 0.0 - 10.0 /100 WBCs. The reference range was not used to interpret this result as normal/abnormal. NRBC x10^3 (test code = 5170320440) See_Comment [Automated [employer] ge] The system which generated this result transmitted reference range: 10*3/?L. The reference range was not used to interpret this result as normal/abnormal. GRAN MAT (NEUT) % (test code = 770-8) 81.3 % IMM GRAN % (test code = 0523539736) 0.30 % LYMPH % (test code = 736-9) 10.5 % MONO % (test code = 5905-5) 7.6 % EOS % (test code = 713-8) 0.1 % BASO % (test code = 706-2) 0.2 % GRAN MAT x10^3(ANC) (test code = 1367357837) 9.55 10*3/uL 1.99-6.95 H IMM GRAN x10^3 (test code = 8207832467) 0.04 10*3/uL 0.00-0.06 LYMPH x10^3 (test code = 731-0) 1.23 10*3/uL 1.09-3.23 MONO x10^3 (test code = 742-7) 0.89 10*3/uL 0.36-1.02 EOS x10^3 (test code = 711-2) 0.06-0.53 L BASO x10^3 (test code = 704-7) 0.01-0.09 Lab Interpretation (test code = 43332-5) Abnormal [facility] HospitalPOCT GLUCOSE (AUTOMATED)2023-04-21 01:55:51* Test Item Value Reference Range Interpretation Comme [facility] POCT GLU (test code = 6894535590) 408 mg/dL 70-110 H Lab Interpretation (test cod e = 57653-2) Abnormal [facility] HospitalCOMPREHENSIVE METABOLIC WDDZE8208-85-09 05:07:51* Test Item Value Reference Range Interpretation Comme [facility] GLUCOSE (test code = 2217) 224 MG/DL 70-99 H BUN (test code = 2208) 22 MG/DL 6-20 H CREATININE (test code = 2214) 0.71 MG/DL 0.80-1.40 L eGFR (2020 CKD-EPI) (test code = 16944) 109 ML/MIN/1.73 >60 CALC BUN/CREAT (test code [...] code = 2219) 24 U/L 5-50 LIPID BIBPI4704-37-64 05:07:51* Test Item Value Reference Range Interpretation [...] SPECIMENS. FOR MOREINFORMATION, SEE CLIENT ANNOUNCEMENT AT [email or web address] RISK RATIO LDL/HDL (test code = 2238) 1.72 RATIO <3.55 PSA, BISPM6778-36-00 05:07:10* Test Item Value Reference Range Interpretation Comme nts PSA, TOTAL (test code = 2606) 19.70 NG/ML See_Comment H NOTE: Methodolog y is Ashley Jasmina Electrochemiluminescence Immunoassay traceable to WHO reference standard 96/760. UNLESS OTHERWISE INDICATED, ALL TESTING PERFORMED [facility] [address] [place] [address] [employer] PROFESSOR: DUSTIN COLMENARES M.D. CLIA NUMBER [id number] [place]. [id number] [Automated message] The system which generated this result transmitted reference range: <=4.00. The reference range was not used to interpret this result as normal/abnormal. HEMOGLOBIN R5s1747-18-83 02:46:58* Test Item Value Reference Range Interpretation Comme nts HEMOGLOBIN A1c (test code = 74259) 11.0 % 4.2-5.6 H [employer] GUIDELINES FOR HGB A1C: [...] OR LABORATORY CONSULTATION. CBC W/AUTO DIFF WITH DZKTSHUJV8468-44-78 02:32:39* Test Item Value Reference Range Interpretation [...] 0.00-0.10 ABS NUCLEATED RBCS (test code = 06328) 0.00 K/UL 0.00-0.11 Consult Notes Date/Time Note Provider Source 2023-08-23 11:10:50 9460-71-76Z86:10:50Associated Order(s): CONSULT ADULT PHYSICAL THERAPY Patient agreeable [...] Time in Minutes: 20 minJesica Murphy,PTTx License: [id number] Components in Determining Evaluation LevelHistory:No personal factors or comorbidities: No (94266)1-2 personal factors and/or comorbidities: Yes (37735)3 or more personal factors and/ or comorbidities: No (32473)Examination of Body System(s)Addressing 1-2 elements: Yes (66039)Addressing a total of 3 or more elements: No (40923)Addressing a total of 4 or more elements: No (24439)Clinical PresentationStable: Yes (05986)Evolving: No (96769)Unstable: No (14817)Clinical Decision Making (Complexity)Low: No (58507)Moderate: Yes (18444)High: No (30454) 47026-2Cxazztw jcmnRL0990-02-67P65:45:58Consult noteTXT1.2.840.775778.1.13.104.2.7.2. 642056|[id number] for patient awzv46286-1Wayybkw noteLNNARRATIVEFormatted C-CDA narrative [id number] G Castro [address] La[id number] NXUJRJNJFSLSDBFKIPTCK8088-17-68X06:45 :581.2.840.385505.1.72.3.15|1.2.840.1 58804.1.13.104.2.7.2.727879_208594730 7 Jesica Murphy PT [facility] 2023-08-15 10:01:34 7078-52-98Q89:01:34Associated Order(s): CONSULT CARDIOLOGY [facility] Cardiology Consult NotePatient: Saturnino Shelley of : 1965MRN: [id number] [facility] 4[facility] Physician: Erik Garcia COMPLAINT:Chief ComplaintPatient [...] other specified complicationElevated troponins: Likely type II IN in the setting of underlying ELIEZER/elevated blood [...] feel free to call our office at [phone]. I would be happy to be of further assistance for Saturnino Maldonado wellbeing.Voice recognition software has been used to create portions of this document. An attempt to proofread has been made to minimize errors. Please do not hesitate to call with any questions.Nerissa Ronquillo Professor, Division of CardiologyResolute Health Hospital 71786-2Gubvmgq hdnrDP0506-64-78M13:32:50Consult noteTXT1.2.840.379330.1.13.104.2.7.2. 426896|[id number] for patient cwao91752-5Orunmco noteLNNARRATIVEFormatted C-CDA narrative text[address] Lul[id number] WNGXZFDCUEGJMTNSFQTNH4325-35-58H10:32 :501.2.840.889086.1.72.3.15|1.2.840.1 91184.1.13.104.2.7.2.727879_[id number] 9 [facility] 2023-04-21 08:46:48 1092-77-83R08:46:48Associated Order(s): CONSULT ENDOCRINOLOGY Endocrinology Consult NoteConsultation requested by: Service: William Lemus for Consultation: DiabetesDate of Service: 04/21/23HPI57 year old male with a PMH of HTN, T2DM, Fmhx premature CAD who presented with complaints of polyuria and weakness at [facility] ER. Patient transferred to [place] for further work up.Endocrinology consulted for diabetes managementDiabetes Type and year diagnosed: 2011, type 2Diabetes complications: noneHx of DM regimen: no meds for 3 yearsCompliance: -BG monitoring? -Hypoglycemia hx: noHypoglycemia unawareness? noSymptoms of hyperglycemia: polyuriaLiving situation and support: homeless, lives with different relativesDiabetes doctor: PCP in [place], has not seen for few yearsFamily hx [...] ulcers on the dorsal aspect, + onychomycosis.LABORATORYRecent Labs12/26/834815CKC 2.56Recent LabsHGBA1C 12.6*BMPRecent Labs04/21/2303NA 129* 130*K 3.5 [...] g, ONCEpotassium chloride in water, 10 mEq, [id number] lispro (human), , TID MEALS+HStamsulosin, 0.4 mg, DAILYIV meds:heparin 25,000 Units/250 mL IV infusion for ACS, Last Rate: 800 Units/hr (04/21/23 0350)PRN meds:dextrose 50 % in water (D50W), 25 mL, PRNdextrose 50 % in water (D50W), 25 mL, PRNglucagon, 1 mg, PRNglucagon, 1 mg, PRNacetaminophen, 650 mg, [id number] 1000 unit/mL, 3,000 Units, FOR REBOLUSINGheparin 25,000 Units/250 mL IV infusion for ACS, 700 Units/hr, TITRATEASSESSMENT and PLANProblem List:DM type 2, A1c 12.6, not on insulin at homeStress hyperglycemiaNSTEMIHTNUrinary retentionComments: 57 year old male with a PMH of HTN, T2DM, Fmhx premature CAD who presented with complaints of polyuria and weakness at [facility] ER. Patient transferred to [place] for further work up.Endocrinology consulted for diabetes [...] pay, need NPH and Regular insulin to [facility] ([employer] [facility])-Need insulin vials, syringe needles, [...] note during revision.Rita Cabrera MDAabbie ProfessorDivision of Drncjspaqikzc67655-9Meewoyv oqrtRH3925213Ezheozfzu, Reba1.2.840.066165.1.13.104.2.7.2.836 329LybbeikdcMypfWH2392-88-26P27:11:24 Consult noteTXT1.2.840.171903.1.13.104.2.7.2. 379881|[id number] for patient zqvx19807-7Npheyde noteLNNARRATIVEFormatted C-CDA narrative textIM-ENDOCRINOLOGY,DIABETES & METABOLISMIM-ENDOCRINOLOGY,DIABETES & METABOLISM[facility] - [address] Fo[id number] ZMXXVBJKIFXPCUDJEMUFF3637-55-78S32:11 :241.2.840.520875.1.72.3.15|1.2.840.1 37368.1.13.104.2.7.2.727879_[id number] IM-ENDOCRINOLOGY,D IABETES & METABOLISM [facility] [place] History and Physical Notes Date/Time Note Provider Source 2023-08-21 22:53:53 2028-57-48A17:53:53 [facility] Hospitalist Admission H&PDate of Service: 4CHIEF COMPLAINT: [...] consulted. Patient was given the application for Distra on last admission and will need to get this filled so he can see urology. Continue with Flomax at this time.PAST MEDICAL HISTORYPast Medical History:Diagnosis DateHTN (hypertension)Uncontrolled diabetes mellitus with hyperglycemiaBladder retentionPAST SURGICAL HISTORYCircumcision in [facility] CenterLLERGIESNo Known AllergiesMEDICATIONSCurrent home medication list reviewed:Patient's [...] Year: 1Unstable Housing in the Last Year: Hyperoptic10 systems negative except per HPIPHYSICAL EXAMINATIONBP (!) [...] Cessation: (Z71.6)Tobacco user?: NOPatient will require observationTexas ALARM OPERATOR [place] [address]-1Gkqukpj and physical egmnHA1507-92-70I14:14:43History and physical noteTXT1.2.840.676938.1.13.104.2.7.2.7 91324|[id number] for patient rtnp06030-8Sssynwi and physical noteLNNARRATIVEFormatted C-CDA narrative textUT08 Weaver StreetMnawWclkgdtjmUgvsqhdviLZXA6486903712AW CNBQKFPBQIWQWRSIXZVB9452-90-00T00:14:4 31.2.840.415689.1.72.3.15|1.2.840.1143 50.1.13.104.2.7.2.727879_[id number] [facility] 2023 22:58:21 8346-26-45M96:58:21 MEDICINE MEGADC ADMIT H&PDate of Service: 4CHIEF COMPLAINT: elevated blood pressure, fatigueSubjectiveHistory of Present Bzyunzx75 yo male with pmh of HTN, DM, [...] DateHTN (hypertension)Uncontrolled diabetes mellitus with hyperglycemiaPast Surgical Yjgtqys1862 Right Humerus RepairLeft eye surgeryFamily HistoryProblem Relation [...] other Hemorrhage presentCode Status: Presumed Full Code 01354-5Ninnkwb and physical xnaaJX0863-56-95A25:25:09History and physical noteTXT1.2.840.484043.1.13.104.2.7.2.7 91405|[id number] for patient tgbs27368-8Ygpqmvw and physical noteLNNARRATIVEFormatted C-CDA narrative textEMCARE EMERGENCY PHYSICIAN STAFFEMCARE EMERGENCY PHYSICIAN STAFF[address] [id number] NYWBTWNAQXTTYJLCCIVG4394-98-69H46:25:0 91.2.840.713506.1.72.3.15|1.2.840.1143 50.1.13.104.2.7.2.727879_[id number] [facility] STAFF [facility] 2023-04-21 00:39:12 1541-04-66S20:39:12 MCAWHITE Admit H&PPCP: Erik Willoughby of Service: 3CHIEF COMPLAINT: PolyuriaHISTORY OF PRESENT ILLNESSOscgabino Maldonado is a 57 year old male with a PMH of HTN, T2DM, Fmhx premature CAD who presented with complaints of polyuria and weakness at [facility] ER. Patient transferred to [place] for further work up.Patient reports that his [...] or drug use. Family history significant for IN in father in his 40s. Currently not [...] not use drugs.Family history: family history includes IN (myocardial infarction) in his father; No Significant [...] CM to help with resources.Plan:- [facility]mit to [facility]- Trend Troponin to peak- Heparin gtt- Asa [...] in the decision-making process.Nerissa Ronquillo ProfessorDivision of Abcjudowbt85168-4Ofvkbtc and physical ozuzZT1108457Srkc, Rizwan1.2.840.078034.1.13.104.2.7.2.83 7951HqjlWcijlvJW4546-00-19L00:47:54His tory and physical noteTXT1.2.840.649431.1.13.104.2.7.2.7 87751|1107592046VVHmwgwsndv for patient ryhj37684-0Jbdckzv and physical noteLNNARRATIVEFormatted C-CDA narrative textUT[address] NirvQzwjkkwccLpeyerdchYFSZ2430058399XE FLAGGJEQREBJBJGDJXEQ5359-27-12C87:47:5 41.2.840.296785.1.72.3.15|1.2.840.1143 50.1.13.104.2.7.2.727879_[id number] [facility] Notes Date/Time Note Provider Source 2023-08-24 16:07:54 9117-29-15J31:07:54Formatting of this no te might be different [...] by Kalina Georges RNOutcome: Adequate for discharge 23724-2Etru of care glujOC1723-88-90V09:08:02Plan of care noteTXT1.2.840.099287.1.13.104.2.7.2.295266|20 64336080OUOlxfqpywy for patient dqma77797-1XpmoMGEUDHIIOVNUpgptaouw C-CDA narrative ckoc407721441EabnkKalina Georges RN[address] OwioLsgcjhbuoGojqfozvbLDNF9154898796XOXHYTIMHC EDGYJUQWDHDE6957-83-90Y24:08:021.2.840.555202. 1.72.3.15|1.2.840.973609.1.13.104.2.7.2.873905 _[id number] Kalina Georges RN [facility] 2023-08-24 13:14:04 8555-81-34F12:14:04Formatting of this no te might be different [...] ofGoal: Absence of fallsOutcome: Adequate for discharge 21340-4Kqfs of care roizVZ6449-81-60N11:14:16Plan of care noteTXT1.2.840.296707.1.13.104.2.7.2.230380|20 65752827QXBexvdfmia for patient mqmw57088-5VznpGXQUPKWYDRVSlxomnqyt C-CDA narrative textUT[address] PstkJibzarogiIynjiawvzRSJQ2412460137RPFXOCBORB MEQLTQIRGDZI8955-02-72O83:14:161.2.840.279511. 1.72.3.15|1.2.840.641432.1.13.104.2.7.2.022168 _[id number] [facility] 2023-08-23 07:12:12 8597-77-66X02:12:12Formatting of this no te might be different [...] ofGoal: Absence of fallsOutcome: Progressing as expected 49211-1Zrgu of care jqmcWH2214-83-81E17:12:15Plan of care noteTXT1.2.840.102676.1.13.104.2.7.2.362087|20 32400698XJEzmmgkpji for patient ambx49495-4DkxiWFGPWFJFDQDVlhfefmke C-CDA narrative ozcb214996004Knomwty G Cantu RNUT[address] [id number] TINOCOMREQGMOFTQWM2399-11-60D10:12:151.2.840.340484. 1.72.3.15|1.2.840.447103.1.13.104.2.7.2.428742 _[id number] Abi Dominic Beverley [facility] 2023-08-22 22:07:54 8658-39-54Y62:07:54Formatting of this no te might be different [...] ofGoal: Absence of fallsOutcome: Progressing as expected 56401-5Rrie of care grczGC4658-84-54F43:08:05Plan of care noteTXT1.2.840.723559.1.13.104.2.7.2.572903|20 13739414JTIovrfhizj for patient sgwi61417-1UrasYRVHXQRDWEGCvwtuewwc C-CDA narrative vxoa913469819KxgajbgaTammy Sweeney RN[id number] TINOCOBLDWSZONAYND3133-12-19K38:08:051.2.840.301785. 1.72.3.15|1.2.840.569485.1.13.104.2.7.2.392719 _[id number] Tammy Sweeney RN [facility] 2023-08-22 08:41:53 0592-63-35G40:41:53Formatting of this no te might be different [...] DeficitGoal: Adequate nutritional intakeOutcome: Progressing as expected 74282-4Bvwz of care bgdeNY1981-50-84I35:42:03Plan of care noteTXT1.2.840.102576.1.13.104.2.7.2.741737|20 25655467STWrwvbrvbf for patient hkhd07420-5FrblPMGPROUFNMJJlbnxznis C-CDA narrative lgzf256194811Vaihcz A Webb RN[address] AevzEmsljkatxQkpsbnshrGIZL6499303325SGVSDOASIP FDPFJIFANFDN1963-62-69C15:42:031.2.840.334960. 1.72.3.15|1.2.840.304152.1.13.104.2.7.2.731242 _[id number] Mihaela Lopez RN [facility] 2023-08-22 03:26:01 2320-49-06R11:26:01Formatting of this no te might be different [...] DeficitGoal: Adequate nutritional intakeOutcome: Progressing as expected 81604-2Vjpc of care einwMN8188-40-15L05:26:03Plan of care noteTXT1.2.840.682160.1.13.104.2.7.2.766464|20 71317118MPOlpcyxozl for patient nsbp08271-9SgieGCDOYVVZROQQdjwpupvw C-CDA narrative lxoe382344707Rmv S Bland RNUT[address] StreetCskfAriwfxrosFgiiviefwTOJV0856781615DOENEGHCTR YIMXYSOQZWNA7585-40-54H71:26:031.2.840.596900. 1.72.3.15|1.2.840.361315.1.13.104.2.7.2.936696 _[id number] Angeline Claudio RN [facility] 2023-08-21 23:32:26 7935-00-48F65:32:26Formatting of this no te might be different from the original.Patient admitted to [facility] for diagnosis of ELIEZER, urinary obstructionPatient agrees to admission, discussed plan of care with patient and family.Patient is awake, alert, oriented, resp reg unlabored, color appropriate for race, PIV intactNo adverse reaction to medications administered while in EDBelongings [place] [address]-6Chmkskpwr department EtocXM4538-44-86T76:33:05[facility] department NoteTXT1.2.840.961430.1.13.104.2.7.2.125326|20 79029037OBNdjpcevuq for patient ibbd88886-6GlrfOAMNSSYGMQFQfpaipvnu C-CDA narrative gltk905825582Avgy E Linkes RN[id number] EIDFDCINBQWF8209-21-18F35:33:051.2.840.887218. 1.72.3.15|1.2.840.551423.1.13.104.2.7.2.045184 _[id number] Chela Reyes [facility] 2023-08-21 19:43:36 6724-39-71U85:43:36Formatting of this no te might be different from the original.Pt C/O RLQ pain that started yesterday, pt states last BM 08/16/2023. Pt denies any urinary, nausea or vomiting 80081-2Tjrwamfie department Triage zeshXJ7206-87-03D18:45:01[facility] Triage noteTXT1.2.840.166875.1.13.104.2.7.2.654059|20 25060886FKNvthmrouw for patient qusn67697-2Buadbrthk department NoteLNNARRATIVEFormatted C-CDA narrative elhr170580875Zpjhan J Hoot RN[id number] CBBOYATZTBSU3902-05-97X28:45:011.2.840.258035. 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 METABOLIC PANEL (33121) - AbnormalNA 120 (*) 135 - 145 [...] U/LAST(SGOT) 24 13 - 40 U/LeGFR 6.9 mL/min/1.30e5VXLFXF - AbnormalLIPASE 758 (*) 0 - 220 [...] PELVIS WO CONTRASTCbc with DiffComp. Metabolic Panel (78856)LipaseUrinalysisBasic Metabolic Panel (NA, K, CL, CO2, GLUCOSE, BUN, CREATININE, CA)Orders Placed This EncounterMedicationsmagnesium citrate solution 296 mLFirst Provider Eval:ED EventsDate/Time Event User Aswbtnaq78/27/241949 Medical Screening Begins COSME SPRING --08/21/231949 First [...] despite appropriate treatmentAdmissionCare documentation entered by: Cosme IntelliworksOU [facility] [place] [employer] Class[employer], 27th edition, Copyright ? 2022 [facility] [employer] [facility] All Rights Reserved.2397-11-17E31:26:32-05:00ED COURSEED Course as of 08/21/235Sat Aug [id number] CREATININE(!): 8.39 [PS]222 NA(!): 120 [PS]2225 WBC x10^3(!): 14.75 [PS]2225 WBC/HPF(!): 31 [PS]2225 LEUK MANAS(!): 250/uL [PS]ED Course User Index[PS] Cosme Spring, DODiagnosis/Impression as of 08/21/23 2255Constipation, unspecified constipation typeAcute urinary retentionHyponatremiaAKI (acute kidney injury)Obstructive uropathyProcedures:ProceduresMDM:Medical Decision Pgzlqv59-dafz-aya male with obstructive uropathy secondary to urinary [...] medications on fileFollow-up:Electronically signed by:Cosme Spring DO08/21/23 4823 31946-0Rtqmcnuee Emergency department VtlgBV7761-09-51Y81:55:31Physician Emergency department NoteTXT1.2.840.946002.1.13.104.2.7.2.899021|20 65048387JGPalrxygnd for patient icxv82398-3Uxdmomrxb department NoteLNNARRATIVEFormatted C-CDA narrative textUT[address] XcybQnrigibfwUrojrfdsiDCGQ0928126387ONEUCWGOXR EJCCARJWHHGK0806-33-04M97:55:311.2.840.031291. 1.72.3.15|1.2.840.961940.1.13.104.2.7.2.763495 _[id number] [facility] 2023-08-21 19:39:00 4395-24-72P65:39:00Formatting of this no te might be different [...] despite appropriate treatmentAdmissionCare documentation entered by: Cosme HuffmanOU [facility] [place] [employer] Class[employer], edition, Copyright ? 2022 [facility] [employer] [facility] All Rights Reserved.8523-61-00Z93:26:32-05:00Electronical ly signed by Cosme Spring DO at 08/21/2023 10:26 PM [id number] Admission Criteria1.2.840.823042.1.13.104.2.7.4.974900.5 1722073-01-72R85:26:33EC Admission CriteriaTXT1.2.840.231753.1.13.104.2.7.2.35741 9|2477344421MESbpjvbgoq for patient xmrl33367-7HakxVKFNNHRNADMUzxotdqer C-CDA narrative Rise Art[address] FnuvTtiiruygtSwuuxcmkhHTKL7425269733GQRVWRBSAP RIMUVOIMSSNM3915-92-89C30:26:331.2.840.674328. 1.72.3.15|1.2.840.287190.1.13.104.2.7.2.957478 _[id number] [facility] 2023-08-17 08:32:29 3167-78-95W09:32:29Formatting of this no te might be different [...] with one of us in 3-4 weeks. 23381-0Izyifivry encounter KctiLW5222-72-68E54:32:29Telephone encounter NoteTXT1.2.840.587486.1.13.104.2.7.2.883764|20 73976614WFOiqapqvai for patient qcji74283-4IqmvOCCBEHSTUZERyelzxuyq C-CDA narrative text[address] [id number] TINOCOICLFJEMYKTQY4887-54-23N23:32:291.2.840.078525. 1.72.3.15|1.2.840.684996.1.13.104.2.7.2.153052 _[id number] [facility] 2023-08-16 17:56:55 6732-20-55A22:56:55Summary: discharge transportation Discharge paperwork provided, patient stated he does not have a ride.Transportation was arranged with voucher.Discharge location: [address] [place], [place] [address]atient verbalized understanding. 29658-2Bwxvs IyokHU8413-36-08H29:58:12Nurse NoteTXT1.2.840.141237.1.13.104.2.7.2.696658|20 57616148VZIprlgcyub for patient myqz59586-0Wfkjm NoteLNNARRATIVEFormatted C-CDA narrative zxzz282569814Avggxiv Hernandez RNUT[id number] TINOCOUWJHSSPTEQVS6077-61-38H91:58:121.2.840.901331. 1.72.3.15|1.2.840.800320.1.13.104.2.7.2.528167 _[id number] Hilary Quinones RN [facility] 2023-08-16 17:19:16 8112-70-28H51:19:16Formatting of this no te might be different from the original.Problem: PainGoal: Control of pain at or below patient's documented comfort goalOutcome: ResolvedGoal: Reduction in pain sensationOutcome: ResolvedProblem: Skin integrity Impaired (Risk or Actual)Goal: Prevention of new skin breakdownOutcome: ResolvedProblem: Venous Thromboembolism, (actual or risk of)Goal: Absence of venous thromboembolism (Risk)Outcome: Resolved 09664-2Zolj of care xslvOR5673-62-87X79:19:21Plan of care noteTXT1.2.840.199180.1.13.104.2.7.2.510749|20 20873735OMUjjbvoikv for patient eavt92163-4NfddNHMUWYBRTXHDhqatcjhm C-CDA narrative Rise Art[address] [id number] FREGOSODQUINFHXBQQT6304-51-91R59:19:211.2.840.190520. 1.72.3.15|1.2.840.503426.1.13.104.2.7.2.565531 _[id number] [facility] 2023-08-16 10:33:18 0861-18-84Y36:33:18Summary: foleyFormatt ing of this note might be different from the original.Bae discontinued without complications. Patient given lactulose PO. Patient notified to notify nurse and to leave urine/stool before flushing for nursing staff to assess. Patient verbalized understanding. 59448-3Gnunh WzorTX2986-37-33H20:34:47Nurse NoteTXT1.2.840.102554.1.13.104.2.7.2.482419|20 95662992PLVyflxbogg for patient iicf09441-2Vuxqn NoteLNNARRATIVEFormatted C-CDA narrative Rise Art[address] [id number] FREGOSOZEMIQEPMXEDH5985-45-75H03:34:471.2.840.431491. 1.72.3.15|1.2.840.528567.1.13.104.2.7.2.751779 _[id number] [facility] 2023-08-16 00:51:24 0627-62-71J86:51:24Formatting of this no te might be different from the original.Problem: PainGoal: Control of pain at or below patient's documented comfort goalOutcome: Progressing as expectedGoal: Reduction in pain sensationOutcome: Progressing as expectedProblem: Skin integrity Impaired (Risk or Actual)Goal: Prevention of new skin breakdownOutcome: Progressing as expectedProblem: Venous Thromboembolism, (actual or risk of)Goal: Absence of venous thromboembolism (Risk)Outcome: Progressing as expected 56411-2Sbkp of care lfqbWZ0888-14-78O38:51:26Plan of care noteTXT1.2.840.090272.1.13.104.2.7.2.363753|20 83402891QWFuvawujip for patient bzui14988-5KodzZVFFKWYIMFFYqncsyudy C-CDA narrative textUT[address] JbwbZtwrhsucbFekfrwllkVUED1443030787OIUNSEPQQD MVKFFIFTQEVL7450-90-97R34:51:261.2.840.770631. 1.72.3.15|1.2.840.188829.1.13.104.2.7.2.436978 _[id number] [facility] 2023-08-15 19:27:06 1454-18-85V40:27:06Formatting of this no te might be different from the original.Problem: PainGoal: Control of pain at or below patient's documented comfort goalOutcome: Progressing as expectedGoal: Reduction in pain sensationOutcome: Progressing as expectedProblem: Skin integrity Impaired (Risk or Actual)Goal: Prevention of new skin breakdownOutcome: Progressing as expectedProblem: Venous Thromboembolism, (actual or risk of)Goal: Absence of venous thromboembolism (Risk)Outcome: Progressing as expected 98937-8Ldrg of care ubmqXF2824-65-70M13:27:11Plan of care noteTXT1.2.840.087022.1.13.104.2.7.2.392317|20 22696328BLCztnnappg for patient hsxb43080-9OycoBNAZNLNWGHOFpymtbfzl C-CDA narrative bbah536880303Cseipnfwv Landin RNUT[address] [id number] TINOCOKNZKIMCGFKIR3252-12-18W94:27:111.2.840.771230. 1.72.3.15|1.2.840.131837.1.13.104.2.7.2.502366 _[id number] Libia Johnson RN [facility] 2023 23:43:36 7663-68-40K38:43:36Formatting of this no te might be different from the original.Problem: PainGoal: Control of pain at or below patient's documented comfort goalOutcome: Progressing as expectedGoal: Reduction in pain sensationOutcome: Progressing as expectedProblem: Skin integrity Impaired (Risk or Actual)Goal: Prevention of new skin breakdownOutcome: Progressing as expectedProblem: Venous Thromboembolism, (actual or risk of)Goal: Absence of venous thromboembolism (Risk)Outcome: Progressing as expected 10288-0Ooqv of care vqhzMJ9410-17-83D77:43:45Plan of care noteTXT1.2.840.652648.1.13.104.2.7.2.010104|20 94375600CTLadnfyfcs for patient tueh04650-4ClqhXKXGNRQAXTKPxcjuokpz C-CDA narrative text[id number] FREGOSOEZJTGPAZBMTD4347-48-19Z09:43:451.2.840.088383. 1.72.3.15|1.2.840.152913.1.13.104.2.7.2.880771 _[id number] [facility] 2023 23:01:15 3970-67-28J38:01:15Formatting of this no te might be different from the original.Patient admitted to [facility] for diagnosis of Hypertension, elevated troponin, urine retention, ELIEZER, hypokalemia.Patient agrees to admission, discussed plan of care with patient and family.Patient is awake, alert, oriented, resp reg unlabored, color appropriate for race, PIV intactNo adverse reaction to medications administered while in EDBelongings with patient to unitReport to [facility] [place] [address]-6Wnfzcmete department SbehWJ6527-83-88O75:04:23[facility] department NoteTXT1.2.840.374963.1.13.104.2.7.2.863393|20 62653017YJIpyzkabte for patient qjra61752-6VmdkZHINFZTIZLSLoeciazno C-CDA narrative sbdw897731432Mrllims E Tyler RN[address] TonmZgefggwfaQblxlzrepPWUR8333384292UJXHZYVYFJ EGSDVQMKAHIO4804-78-93C97:04:231.2.840.413600. 1.72.3.15|1.2.840.839101.1.13.104.2.7.2.750481 _[id number] Josi Miller RN [facility] 2023 18:56:57 3021-38-23O91:56:57Formatting of this no te might be different from the original.Handoff report given to Josi VILLAGRAN [address]1212-2Ifeuwvxog[address] [place] [address] PrsnBI9151-24-85B56:57:07[facility] NoteTXT1.2.840.083200.1.13.104.2.7.2.976729|20 59435057LBEamokrqbo for patient uobt94643-0NsvvTKTGAVIKIREXcddxjtrs C-CDA narrative usoj889415321Gqkgr E Leoncio VILLAGRAN[id number] BARNESXEIRAIRWFNTP5710-03-74V30:57:071.2.840.478616. 1.72.3.15|1.2.840.063464.1.13.104.2.7.2.721624 _[id number] Nunu Mayer Leoncio VILLAGRAN [facility] 2023 14:42:29 5597-12-29Y78:42:29Formatting of this no te might be different from the original.Has been out of diabetic, BP meds since April. States he can't "afford it". Struggling with constipation for "several days". He called EMS today for excessive fatigue and worsening hypertension. He is A&Ox4 and able to ambulate. 62740-0Bzfpkniax department Triage kuhcAS1447-87-56D57:44:03[facility] department Triage noteTXT1.2.840.953048.1.13.104.2.7.2.205768|20 09460702XHMrwjqblib for patient mdzu72681-6Fhzmagaqw department NoteLNNARRATIVEFormatted C-CDA narrative ytta313897254Oolkpkd Fief RN[id number] TINOCOOJEKEROEVAGP2556-19-37T13:44:031.2.840.543308. 1.72.3.15|1.2.840.517591.1.13.104.2.7.2.224140 _[id number] Alba Hernandez RN [facility] 2023 14:38:00 8614-38-65V83:38:00Associated Order(s): EKG-12 Lead ROUTINE ONCEPre-Procedure Diagnose(s): Hypertension, unspecified typePost-Procedure Diagnose(s): Hypertension, unspecified type; Elevated troponin I level; Urine retention [facility] Emergency Department NotePatient Name: Saturnino Shelley of : 1965 58 year old maleTreatment Room: CO6/BE5[place] Record Number: [id number] Care Physician: Erik Louie JrPatient Escorted by: Self [9]Mode of Arrival: EMS - [place] [46]EMS Treatment Prior to ED Arrival:Travel and [...] symptomsHistory provided by: Patient and medical recordsLanguage real estate operations manager used: NoPast Medical History/Immunizations:Past Medical History:Diagnosis DateHTN [...] this encounter.First Provider Eval:ED EventsDate/Time Event User Nsygtbxt79/20/24 0373 Medical Screening Begins UMANG BOTELLO MD --08/14/23 1457 First Provider Evaluation UMANG BOTELLO MD --ED [...] User Index[CD] Umang Botello MDDiagnosis/Impression as of 08/14/23 1841Hypertension, unspecified typeElevated troponin I levelUrine retentionAKI (acute kidney injury)HypokalemiaProcedures:EKG-12 Lead ROUTINE ONCEDate/Time: 2023 5:55 PMPerformed by: Umang Botello MDAuthorized by: Umang Botello MDECG interpreted by ED Physician in the absence of a directional driller: yesPrevious ECG:Previous ECG: Compared to currentSimilarity: No [...] medications on fileFollow-up:Electronically signed by:Umang Botello MD08/14/231851 29651-9Cvftrtiov Emergency department FzeuIW2345-30-26T31:52:17Physician Emergency department NoteTXT1.2.840.916118.1.13.104.2.7.2.288398|20 [id number] for patient beef63573-5Swljmswai department NoteLNNARRATIVEFormatted C-CDA narrative textUT[address] Yn[id number] WOGCRGZVSLDO7514-77-50Z40:52:171.2.840.974720. 1.72.3.15|1.2.840.741342.1.13.104.2.7.2.449198 _[id number] [facility] 2023 14:38:00 4346-62-32S77:38:00Formatting of this no te might be different [...] over serial assessments)AdmissionCare documentation entered by: Umang [facility] [employer] [employer], 27th edition, Copyright ? 2022 [facility] [employer] All Rights Reserved.9886-13-64B49:45:18-05:00Electronical ly signed by Umang Botello MD at 2023 6:45 PM [id number] Admission Criteria1.2.840.579920.1.13.104.2.7.4.012633.5 3041770-77-51H91:45:20EC Admission CriteriaTXT1.2.840.765675.1.13.104.2.7.2.32474 9|[id number] for patient gfte79991-5JdphEWKLAVXRVKYXapgghyaj C-CDA narrative textUT[address] Kt[id number] CMCVLQDDRCHC6105-01-19J85:45:201.2.840.432735. 1.72.3.15|1.2.840.855016.1.13.104.2.7.2.487510 _[id number] [facility] 2023 14:38:00 7040-08-23D20:38:00Formatting of this no te might be different [...] in pediatric patients)AdmissionCare documentation entered by: Umang [facility] [employer], edition, Copyright ? 2022 [facility] [employer] [facility] All Rights Reserved.4121-85-69V60:00:25-05:00Electronical ly signed by Umang Botello MD at 2023 7:00 PM [id number] Admission Criteria1.2.840.886260.1.13.104.2.7.4.808542.5 0023751-04-87D15:00:26EC Admission CriteriaTXT1.2.840.125919.1.13.104.2.7.2.67162 9|[id number] for patient cldk03289-7HgqfCUILNZLPHBVYlfiiskhb C-CDA narrative textUT[address] Rjui[id number] LXEADTBJOPMB3556-50-32Z30:00:261.2.840.868629. 1.72.3.15|1.2.840.907736.1.13.104.2.7.2.481177 _[id number] [facility] 2023-04-27 15:56:14 2983-43-65G59:56:14Formatting of this no te might be different from the original.TRANSITIONAL CARE MANAGEMENT ASSESSMENT04/27/2023Saturnino MaldonadoFozbzih974760CZssld Ramirez is a 57 year old /White male was admitted on 04/20/[address] He was discharged on 04/23/23 with [...] something or to check in.No linked episodesTCM Wbw-dgyt-wf-face outreach documentation:Future Appointments: 42672-1Ricubzrus encounter TijnOX7453-70-07J26:58:59Telephone encounter NoteTXT1.2.840.156858.1.13.104.2.7.2.939653|19 [id number] for patient zsae54713-8SwoyXYBRFZQZZYKYlklixmdm C-CDA narrative [id number] Rivas [id number] TINOCOLKVBPZUPBLRG8704-11-30I01:58:591.2.840.706650. 1.72.3.15|1.2.840.741891.1.13.104.2.7.2.276744 _[id number] Jeannette Dawn [facility] 2023-04-23 18:39:42 1514-24-87N12:39:42Formatting of this no te might be different from the original.Patient refuses to take taxi voucher which takes him directly to [employer] stating, "My brother is on his way to pick me up. I don't want to upset him as it is anymore." When asked if his brother is going to take him to [employer], patient stated, "I don't know. That will be between me and my brother." Transportation in room, wheeled patient downstairs to [facility]. 71745-1Xreog HoyoRF2029-79-22K61:42:34Nurse NoteTXT1.2.840.068934.1.13.104.2.7.2.400611|19 [id number] for patient larw16291-7CvjgBZFMUXVYSIEVvadxcthg C-CDA narrative [id number] Feliciano RN[id number] FREGOSOKBSUURNLFHIQ9039-65-26T13:42:341.2.840.184275. 1.72.3.15|1.2.840.280430.1.13.104.2.7.2.975321 _[id number] Meme Sparks RN [facility] 2023-04-23 17:33:42 1993-54-59W75:33:42Formatting of this no te might be different from the original.Problem: Glucose controlGoal: Glucose level within specified cgwsxrlavb53/29/2023 173 by Valentino Whiting, RNOutcome: Adequate for roujcncjk34/29/2023 1732 by Valentino Whiting, RNOutcome: Adequate for bmaluxedp14/29/2023 105 by Valentino Whiting, RNOutcome: Progressing as expectedProblem: Discharge PlanningGoal: Adequate for uknmddedi32/29/2023 173 by Valentino Whiting RNOutcome: Adequate for banucgyke37/29/2023 173 by Valentino Whiting, RNOutcome: Adequate for rmdxavtpg80/29/2023 105 by Valentino Whiting, RNOutcome: Progressing as expectedGoal: Adequate to move to next level of care04/23/2023 173 by Valentino Whiting, RNOutcome: Adequate for rmbstpdyc37/29/2023 173 by Valentino Whiting RNOutcome: Adequate for vuxtsjkxm53/29/2023 1051 by Valentino Whiting, RNOutcome: Progressing as expectedProblem: PainGoal: Control of pain at or below patient's documented comfort goal04/23/20231732 by Valentino Whiting, RNOutcome: Adequate for djjvvygea91/29/2023 173 by Valentino Whiting RNOutcome: Adequate for yzvelwlfe90/29/2023 105 by Valentino Whiting, RNOutcome: Progressing as expectedGoal: Reduction in pain irbqivpid06/29/20231732 by Valentino Whiting, RNOutcome: Adequate for flowrfltb62/29/2023 1732 by Valentino Whiting RNOutcome: Adequate for jppujsknk35/29/2023 1051 by Valentino Whiting, RNOutcome: Progressing as expectedProblem: Tissue Perfusion, Cardiopulmonary - AlteredGoal: Circulatory function within specified vyphqhdxlx27/29/2023 173 by Valentino Whiting, RNOutcome: Adequate for dwlruzubi38/29/2023 1732 by Valentino Whiting, RNOutcome: Adequate for jiasajbfd08/29/2023 1051 by Valentino Whiting RNOutcome: Progressing as expectedProblem: Mental Status - ImpairedGoal: Able to achieve maximum level of cognitive bzfaqgx1804/23/2023 1733 by Valentino Whiting RNOutcome: Adequate for wuigptuwl58/29/2023 1732 by Valentino Whiting RNOutcome: Adequate for upjuhxmxn95/29/2023 1051 by Valentino Whiting RNOutcome: Progressing as expected 60832-5Xawf of care fiirYE1240-08-18H02:33:50Plan of care noteTXT1.2.840.754099.1.13.104.2.7.2.514671|19 [id number] for patient ugfi60044-2YdnpKZDGZRHWSSGAzgggxjth C-CDA narrative ccrk969096337Lblmgl C Eaves RN[address] StreetNbijGcfxzhvgjAnwolgjtrZMOX9532386751XWNHQNSTWP ITTTUJRMFQSJ6081-85-87D32:33:501.2.840.793579. 1.72.3.15|1.2.840.049566.1.13.104.2.7.2.210255 _[id number] Valentino Whiting [facility] 2023-04-23 17:33:03 9353-00-59K94:33:03Formatting of this no te might be different from the original.Problem: Glucose controlGoal: Glucose level within specified zgdxkdzhij12/29/2023 1732 by Valentino Whiting RNOutcome: Adequate for rwsxuqzpa21/29/2023 1051 by Valentino Whiting RNOutcome: Progressing as expectedProblem: Discharge PlanningGoal: Adequate for avkvrfgzl84/29/2023 1732 by Valentino Whiting RNOutcome: Adequate for qeekoktls95/29/2023 1051 by Valentino Whiting RNOutcome: Progressing as expectedGoal: Adequate to move to next level of care04/23/2023 1732 by Valentino Whiting RNOutcome: Adequate for crkuhqklw70/29/2023 1051 by Valentino Whiting RNOutcome: Progressing as expectedProblem: PainGoal: Control of pain at or below patient's documented comfort goal04/23/2023 1732 by Valentino Whiting RNOutcome: Adequate for adrkxbbjy64/29/2023 1051 by Valentino Whiting RNOutcome: Progressing as expectedGoal: Reduction in pain gjjuadjsu99/29/2023 1732 by Valentino Whiting RNOutcome: Adequate for vszinoxnc43/29/2023 1051 by Valentino Whiting RNOutcome: Progressing as expectedProblem: Tissue Perfusion, Cardiopulmonary - AlteredGoal: Circulatory function within specified giringnozn64/29/2023 1732 by Valentino Whiting RNOutcome: Adequate for sukfsyfxt13/29/2023 1051 by Valentino Whiting RNOutcome: Progressing as expectedProblem: Mental Status - ImpairedGoal: Able to achieve maximum level of cognitive sytnbnq3404/23/2023 1732 by Valentino Whiting RNOutcome: Adequate for yzcitaing77/29/2023 1051 by Valentino Whiting RNOutcome: Progressing as expected 16804-4Ybjh of care flpdMI8870-69-92E35:33:13Plan of care noteTXT1.2.840.455478.1.13.104.2.7.2.618023|19 [id number] for patient vpml11733-6ImqzPULLKPEVEASYkioyphsu C-CDA narrative text[address] Oc[id number] CYIIWLLHOLHC3634-03-77Z02:33:131.2.840.961626. 1.72.3.15|1.2.840.338071.1.13.104.2.7.2.078307 _[id number] [facility] 2023-04-23 10:51:50 8799-22-56V93:51:50Formatting of this no te might be different [...] level of cognitive abilityOutcome: Progressing as expected 06390-8Oepd of care fhpfLZ3851-18-79T47:52:01Plan of care noteTXT1.2.840.317896.1.13.104.2.7.2.080579|19 [id number] for patient hocd51650-8UkphZYUWQQQLNVGJsstpwxvt C-CDA narrative [address] WqiwKuqmixfupJemigawelEUNJ2274392786EBDGRHTPGP BTOKIOWVEXXG3486-07-49A43:52:011.2.840.778448. 1.72.3.15|1.2.840.799106.1.13.104.2.7.2.399684 _[id number] [facility] 2023-04-23 00:56:44 1839-44-55E50:56:44Formatting of this no te might be different from the original.Problem: Mental Status - ImpairedGoal: Able to achieve maximum level of cognitive abilityOutcome: Progressing as expected 95098-6Ckmt of care czcnEK5885-89-19H49:56:51Plan of care noteTXT1.2.840.262881.1.13.104.2.7.2.603382|19 95213996KZPiqnmautg for patient akqj13398-6CmhiUCYESKCCPESMpytshhni C-CDA narrative text[id number] BARNESZEKMIOPPSWKT2450-90-48B84:56:511.2.840.852199. 1.72.3.15|1.2.840.001144.1.13.104.2.7.2.089712 _[id number] [facility] 2023-04-23 00:52:07 5681-77-57M12:52:07Formatting of this no te might be different [...] function within specified parametersOutcome: Progressing as expected 11693-5Mbmw of care eibuSY1081-19-96E20:52:10Plan of care noteTXT1.2.840.703209.1.13.104.2.7.2.924911|19 51145761YJWyqmlcfho for patient zalh26155-8EuzsXBJHGVHSHOKSspuoboyp C-CDA narrative [id number] TINOCOCJGKJBICZRBY2151-78-39P68:52:101.2.840.955698. 1.72.3.15|1.2.840.154828.1.13.104.2.7.2.033570 _[id number] [facility] 2023-04-22 08:03:00 4603-87-39M30:03:00Formatting of this no te might be different [...] function within specified parametersOutcome: Progressing as expected 06896-6Qhux of care qkubNZ6853-74-51O93:25:35Plan of care noteTXT1.2.840.750611.1.13.104.2.7.2.491713|19 76076807FURkavandcy for patient typo96328-4CpnfNLERFQLLFBGArynvrdul C-CDA narrative text[address] Rrl[id number] DIFOSXTBQMYK6378-64-54K07:25:351.2.840.930365. 1.72.3.15|1.2.840.440586.1.13.104.2.7.2.754233 _[id number] [facility] 2023-04-20 23:38:56 5908-56-20G66:38:56Formatting of this no te might be different [...] function within specified parametersOutcome: Progressing as expected 45355-7Bgwf of care fhwiMF0888-96-77R97:38:59Plan of care noteTXT1.2.840.937540.1.13.104.2.7.2.773825|19 74202352BVMjegcxoim for patient wnsq57556-7RsyaYNIQWESYJASXtuxxkfad C-CDA narrative text[id number] ZTILZALTNRKS8699-48-96K99:38:591.2.840.417629. 1.72.3.15|1.2.840.530715.1.13.104.2.7.2.628107 _[id number] [facility] 2023-04-20 21:49:51 5137-55-72A79:49:51Formatting of this no te might be different from the original.Patient admitted to [facility] ROOM 923 for diagnosis of WEAKNESS, NSTEMI, HYPERGLYCEMIAPatient agrees to admission, discussed plan of care with patient.Patient is awake, alert, oriented, resp reg unlabored, color appropriate for race, PIV intactNo adverse reaction to medications administered while in EDBelongings with patient to unitReport to MARIE RNREPORT GIVEN TO MEDIC [facility], PT LOADED TO BE TRANSFERRED. HEPARIN INFUSING AT 700 UNITS/ HOUR. 50446-8Pupnujknv department QypiOA3496-41-98T86:51:39Emergency department NoteTXT1.2.840.970102.1.13.104.2.7.2.728564|19 [id number] for patient gswt60706-6BjglZXLMCBUZWSGZqajozrfj C-CDA narrative [id number] Vargas RNUT[id number] HHMMATDHTQXX1305-17-95A45:51:391.2.840.276334. 1.72.3.15|1.2.840.635382.1.13.104.2.7.2.092259 _[id number] Jaelyn Vargas RN [facility] 2023-04-20 21:38:11 8948-56-77Z62:38:11Formatting of this no te might be different from the original.Report called to [facility], spoke with Marie VILLAGRAN.Pt awaiting EMS transfer. 47370-2Eboftwvwo department SkwkAH6419-89-05Y81:38:44[facility] department NoteTXT1.2.840.982113.1.13.104.2.7.2.793067|19 [id number] for patient mmfj37645-9KynvRYHANEJHMRLFdapwmirh C-CDA narrative textUT[address] Ghk[id number] SLPULZLENJFA1886-01-11P97:38:441.2.840.285878. 1.72.3.15|1.2.840.968997.1.13.104.2.7.2.634847 _[id number] [facility] 2023-04-20 20:59:06 7767-27-53B30:59:06Formatting of this no te might be different from the original.[facility] ETA 45 MIN per Bree 19156-9Vdpzjzrjs department XtjdRX3342-73-63M34:04:08Emer[facility] department NoteTXT1.2.840.000097.1.13.104.2.7.2.296350|19 [id number] for patient tyyg98171-2AeubRHVITFEFDXNYdcjtncpg C-CDA narrative yqec125815845Sqcux [place] [address] VpnyJgqbrevcsChtnbkksrCAEF2256836130EULBDMBOCS SRTINNZTNSYI0630-90-18N36:04:081.2.840.716405. 1.72.3.15|1.2.840.796829.1.13.104.2.7.2.909089 _[id number] Yoon Shukla Carrero Counts include 234 beds at the [facility] 2023-04-20 20:54:15 2955-67-84O17:54:15Associated Order(s): Critical Care Critical CarePerformed by: Sergio Aponte MDAuthorized by: Sergio Aponte [facility] provider statement:Critical care time (minutes): 45Critical [...] separately billable procedures and treating other patients. 61246-5Kjvwqswfn department DvdwZU9036-43-23C02:54:15[facility] NoteTXT1.2.840.561469.1.13.104.2.7.2.279838|19 [id number] for patient tdrr08652-3McocIKBPVLUODXIWzcyytjsr C-CDA narrative [id number] CXSTQJNRXFTP6100-93-94F87:54:151.2.840.409292. 1.72.3.15|1.2.840.242641.1.13.104.2.7.2.277734 _[id number] [facility] 2023-04-20 20:00:00 7504-27-93C86:00:00Formatting of this no te might be different from the original.Patient aware of UA sample needed. Unable to provide sample at this moment. Urinal at bedside. Call light within reach. 65051-4Xudxtipcd department EcfvKI9096-30-77A84:03:40[facility] NoteTXT1.2.840.002659.1.13.104.2.7.2.488111|19 [id number] for patient ktwh74529-5FnqzWLIVDJCCMNMWqrmnxpzt C-CDA narrative [id number] NCSDQUUOXTSR3808-30-99G01:03:401.2.840.334418. 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 Per patient he was diagnosed with DM five years ago and stopped taking home meds-Metformin about three years ago. Patient c/o of being weak and increased UOP. Patient was nauseous GIS PROFESSOR but has resolved since. 27262-4Zvlmmigpm department Triage sayqRO6374-83-03W01:52:56[facility] Triage noteTXT1.2.840.323170.1.13.104.2.7.2.549214|19 [id number] for patient gzum59922-3Hpcwqolek department NoteLNNARRATIVEFormatted C-CDA narrative [address] Yu[id number] GEJWLVUURSDW2611-60-97B80:52:561.2.840.935128. 1.72.3.15|1.2.840.305399.1.13.104.2.7.2.419066 _[id number] [facility] 2023-04-20 19:43:00 1577-53-56B60:43:00Formatting of this no te is different from the original.EMERGENCY DEPARTMENT [facility] Name: Saturnino Shelley of : 1965 57 year oldMRN: [id number] Room:Room/bed info not foundPrimary Care Physician: No primary care provider on file.Pre- HospitalPatient Escorted by: Self [9]Mode of Arrival: EMS - [facility] ([facility]) [43]EMS Treatment Prior to ED Arrival:GIS PROFESSOR treatment: Saline lock;IVFED EventsDate/Time Event User Gxlrchbk74/26/231943 Medical Screening Begins SERGIO APONTE MD --04/20/231943 First Provider Evaluation SERGIO APONTE MD --Chief ComplaintChief ComplaintPatient presents withHigh Blood SugarED Triage Megan Dc RN 04/20/2023 19:52Patient arrived to ED via [facility] c/o "not feeling well." 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 Per patient he was diagnosed with DM five years ago and stopped taking home meds-Metformin about three years ago. Patient c/o of being weak and increased UOP. Patient was nauseous GIS PROFESSOR but has resolved since.HPIHistory provided by: LeanneWealexanessLocation: [...] <0.03 0.01 - 0.09 10*3/uLCOMP. METABOLIC PANEL (51483) - AbnormalNA 129 (*) 135 - 145 [...] U/LAST(SGOT) 30 13 - 40 U/LeGFR 98.2 mL/min/1.71i6YAEZOBERCZ - AbnormalAPPEARANCE Clear ClearCOLOR Yellow YellowPH 6.0 [...] CHEST 1 VWCBC WITH DIFFCOMP. METABOLIC PANEL (80351)URINALYSISURINE DRUG (IMMUNOASSAY) - COMPREHENSIVE DRUG SCREEN W/O REFLEXETHANOLPOCT GLUCOSE (AUTOMATED)Troponin IProthrombin Time / INRaPTTaPTT (for use with Heparin Infusion)Ferritin SerumIron PanelTroponin IThyroid Stimulating HormoneGlycosylated Hemoglobin (A1C)PhosphorusCbc with DiffBasic Metabolic Panel (NA, K, CL, CO2, GLUCOSE, BUN, CREATININE, CA)MagnesiumLipid Panel (74048)(Total Cholesterol, Triglycerides, HDL)O2 Per ProtocolOrders Placed This [...] demonstrates that he is having a silent IN. He has elevated troponin of 0.154. Please note he does not have any chest pain or shortness of breath. EKG does not demonstrate a STEMI. He was started on heparin, Plavix, and aspirin. The patient may require cardiac catheterization. The patient was transferred to [place] for further evaluation.History, physical exam findings, results [...] medications for this patient.Sergio Aponte Jr. MDClinical Pre Sales Network Engineer [facility] Emergency DepartmentDragon Dictation Software is used frequently and may produce errors. Promptly contact for obvious discrepancies.Sergio Aponte MD04/21/23 0025 11291-3Dezsufuna Emergency department FpdqAB9166-20-28S82:25:46Physician Emergency department NoteTXT1.2.840.581164.1.13.104.2.7.2.281245|19 [id number] for patient yosh37107-8Vkmetojpe department NoteLNNARRATIVEFormatted C-CDA narrative textEMCARE EMERGENCY PHYSICIAN STAFFEMCARE EMERGENCY PHYSICIAN STAFFUT[address] Us[id number] ZFQEFNKRCLQM2413-15-07Y85:25:461.2.840.931048. 1.72.3.15|1.2.840.472220.1.13.104.2.7.2.209367 _[id number] [facility] EMERGENCY PHYSICIAN STAFF [facility]
--- NOTE | 2023-10-27 00:55 | ER ---
Nurse's Notes [facility] Name: Johnnie Maldonado Age: 58 yrs Sex: Male : 1965 Arrival Date: 10/26/2023 Time: 23:34 Bed 16 Private MD: Diagnosis: Mechanical complication of urinary (indwelling) catheter Presentation: 10/26 00:07 Chief complaint: EMS states: Pt is homeless and he cut his Bae bag off. Pt has no kd3 other complaints. Coronavirus screen: unknown. Ebola Screen: No symptoms or risks identified at this time. Initial Sepsis Screen: Does the patient meet any 2 criteria? No. Patient's initial sepsis screen is negative. Does the patient have a suspected source of infection? No. Patient's initial sepsis screen is negative. Risk Assessment: Do you want to hurt yourself or someone else? Patient reports no desire to harm self or others. Onset of symptoms was October 27, 2023. 00:07 Method Of Arrival: EMS: [facility] kd3 00:07 Acuity: DONTE 4 kd3 Triage Assessment: 00:08 General: Appears in no apparent distress. Behavior is calm, cooperative. Pain: Denies kd3 pain. Historical: - PMHx: 00:08 diabetes mellitus; Hypertensive disorder; raynaud's; Urinary incontinence; kd3 - Immunization history:: Adult Immunizations up to date. - Infectious Disease History:: Denies. - Social history:: Smoking status: unknown. Screenin:32 [facility] ED Fall Risk Assessment (Adult) History of falling in the last 3 months, kd3 including since admission No falls in past 3 months (0 pts) Confusion or Disorientation No (0 pts) Intoxicated or Sedated No (0 pts) Impaired Gait No (0 pts) Mobility Assist Device Used No (0 pt) Altered Elimination No (0 pt) Score/Fall Risk Level 0 - 2 = Low Risk Oriented to surroundings. Abuse screen: Denies threats or abuse. Denies injuries from another. Nutritional screening: No deficits noted. Tuberculosis screening: No symptoms or risk factors identified. Assessment: 00:30 General: Appears in no apparent distress. Behavior is calm, cooperative, PT cleaned of kd3 incontinence. Bae leg bag attached. Pt provided with a dry, clean brief, paper scrub pants, and socks. PT provided a meal and oral fluids. Pt has no further requests at this time. . Pain: Denies pain. Neuro: Level of Consciousness is awake, alert, obeys commands, Oriented to person, place, time, situation. Cardiovascular: Patient's skin is warm and dry. Respiratory: Airway is patent Trachea midline Respiratory effort is even, unlabored, Respiratory pattern is regular, symmetrical. 01:10 General: PT discharged with his belongings. . kd3 Vital Signs: 00:29 BP 141 / 79; Pulse 79; Resp 19; Temp 98.2(O); Pulse Ox 98% on R/A; kd3 ED Course: 10/25 23:56 Patient arrived in ED. 10/26 00:00 Salvatore Camp PA is PHCP. cp 00:00 Kolby Parham MD is Attending Physician. cp 00:06 Radha Fernandez, TYSHAWN is Primary Nurse. kd3 00:08 Triage completed. kd3 00:08 Arm band placed on right wrist. kd3 01:09 Patient has correct armband on for positive identification. Provided Education on: kd3 Bae care . 01:09 No provider procedures requiring assistance completed. Patient did not have IV access kd3 during this emergency room visit. Administered Medications: No medications were administered Medication: 00:32 VIS not applicable for this client. kd3 Outcome: 00:54 Discharge ordered by . cp 01:09 Discharged to home ambulatory, kd3 01:09 Condition: stable 01:09 Discharge instructions given to patient, Instructed on discharge instructions, follow up and referral plans. Demonstrated understanding of instructions, follow-up care, 01:10 Patient left the ED. kd3 Signatures: Nory Grove, RN RN Salvatore Camp PA PA cp Doucette, Kyli, TYSHAWN RN kd3
--- NOTE | 2023-10-27 00:55 | EDPHYS ---
Physician Documentation [facility] Name: Johnnie Maldonado Age: 58 yrs Sex: Male : 1965 Arrival Date: 10/26/2023 Time: 23:34 Bed 16 Private MD: ED Physician Kolby Parham HPI: 10/26 00:20 This 58 yrs old Male presents to ER via EMS with complaints of Replacement of cp Jensen Catheter Bag. 00:20 The patient presents with Patient reports he was having difficulty draining bag of cp Jensen catheter so he cut bag of of catheter and presents to ED requesting replacement of large bag with a smaller bag. Historical: - PMHx: 00:08 diabetes mellitus; Hypertensive disorder; raynaud's; Urinary incontinence; kd3 - Immunization history:: Adult Immunizations up to date. - Infectious Disease History:: Denies. - Social history:: Smoking status: unknown. ROS: 00:25 Constitutional: HX per HPI cp Exam: 00:30 Constitutional: The patient appears in no acute distress, alert, awake, comfortable, cp non-toxic, well developed, well nourished, 00:30 Abdomen/GI: Inspection: abdomen appears normal, Palpation: abdomen is soft and cp non-tender, in all quadrants, 00:30 : jensen in place with bag missing, Vital Signs: 00:29 BP 141 / 79; Pulse 79; Resp 19; Temp 98.2(O); Pulse Ox 98% on R/A; kd3 MDM: 00:00 Patient medically screened. cp 00:53 Data reviewed: vital signs, nurses notes, and as a result, I will discharge patient. cp 00:53 Counseling: I had a detailed discussion with the patient and/or guardian regarding the cp historical points, exam findings, and any diagnostic results supporting the discharge/admit diagnosis, to return to the emergency department if symptoms worsen or persist or if there are any questions or concerns that arise at home. 10/26 00:04 Order name: Jensen Leg Bag; Complete Time: 00:29 cp Administered Medications: No medications were administered Disposition: 20:50 Co-signature as Attending Physician, Kolby Parham MD I agree with the assessment sp4 and plan of care. I reviewed the patient's care provided by the Advanced Practice Provider and agree with the diagnosis and treatment plan. Disposition Summary: 10/27/23 00:54 Discharge Ordered Notes: Location: Home cp Problem: new cp Symptoms: have improved cp Condition: Stable cp Diagnosis - Mechanical complication of urinary (indwelling) catheter cp Followup: cp - With: Private Physician - When: 2 - 3 days - Reason: Worsening of condition Discharge Instructions: - Discharge Summary Sheet cp - Indwelling Urinary Catheter Care, Adult cp Forms: - Medication Reconciliation Form cp - Antibiotic Education cp - Prescription Opioid Use cp - Patient Portal Instructions cp - Leadership Thank You Letter cp Signatures: Salvatore Camp PA PA cp Doucette, Kyli, RN RN kd3 Kolby Parham MD MD sp4
[2023-10-27 01:58] VITALS: BP 141/79; TEMP 98.2; O2SAT 98
== END 2023-10-27 01:10 | disposition home or self-care (01) ==
LOC: ER 23:34
DX: T83.098A Other mechanical complication of other urinary catheter, initial encounter (principal)
CPT/HCPCS: 99283

== ENCOUNTER 2023-11-30 17:32 | Emergency (ER) | payer SELFPAY ==
--- OUTSIDE RECORDS SUMMARY | 2023-11-30 17:37 | XMS REPORT | Continuity of Care Document ---
Author Name Unknown Address [address] [facility] [address] [place] [address] [facility] thconnect Address [address] 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 Primary Care Physician + [phone] Cosme Cardona DO Attending Clinician [phone] Solo CHONG, Lyubov Hilton Attending Clinician [phone] Rosalie Irizarry RN Attending Clinician [phone] Miguel CHONG, Ricky K.H. Attending Clinician + [phone] Umang Reynaga MD Attending Clinician [phone] Jerry Fields DO Attending Clinician [phone] Vimal Quiñones MD Attending Clinician [phone] Jeannette Dawn LVN Attending Clinician + [phone] PARVEZ MONROE Attending Clinician Unavailable Sergio Aponte MD Attending Clinician [phone] Bret Banda MD Attending Clinician [phone] Parvez Monroe MD Attending Clinician [phone] Solo CHONG, Lyubov Hilton Admitting Clinician [phone] Jerry Fields DO Admitting Clinician [phone] PARVEZ MONROE Admitting Clinician Unavailable Parvez Monroe MD Admitting Clinician Problems Condition Name Condition Details Condition Category Status Onset Date Resolution Date Last Treatment Date Treating Clinician Comments Source Elevated troponin I level Elevated troponin I level Disease Active 08-14 00:00: 00 [facility] Elevated brain natriureti c peptide (BNP) level Elevated brain natriureti c peptide (BNP) level Disease Active 08-14 00:00: 00 [facility] Essential hypertensi on Essential hypertensi on Disease Active 08-14 00:00: 00 [facility] ELIEZER (acute kidney injury) ELIEZER (acute kidney injury) Disease Active 08-14 00:00: 00 [facility] Type 2 diabetes mellitus with other specified complicati on Type 2 diabetes mellitus with other specified complicati on Disease Active 08-14 00:00: 00 [facility] Hypertensi on, unspecifie d type Hypertensi on, unspecifie d type Disease Active 08-13 00:00: 00 [facility] NSTEMI (non-ST elevated myocardial infarction ) NSTEMI (non-ST elevated myocardial infarction ) Disease Active 2022-04 00:00: 00 [facility] Allergies, Adverse Reactions, Alerts Allergy Name Allergy Type Status Severity Reaction(s) Onset Date Inactive Date Treating Clinician Comments Source NO KNOWN ALLERGIE S Drug Class Active [facility] Social History Social Habit Start Date Stop Date Quantity Comments Source [facility] function 2023-08-23 00:00:00 2023-08-23 00:00:00 [facility] Alcohol intake 2023-08-22 00:00:00 2023-08-22 00:00:00 Lifetime non-drinker (finding) [facility] Tobacco use and exposure 2023-04-21 00:00:00 2023-04-21 00:00:00 Smokeless tobacco non-user [facility] Sex Assigned At 1965 00:00:00 1965 00:00:00 [facility] Smoking Status Start Date Stop Date Source Never smoked tobacco [facility] Medications Ordered Medication Name Filled Medication Name Start Date Stop Date Current Medication? Ordering Clinician Indication Dosage Frequency Signature (SIG) Comments Components Source acarbose 25 mg tablet 08-23 00:00: 00 Yes [id number] 25mg Take 1 tablet by mouth in the morning and 1 tablet at noon and 1 tablet in the evening. Take with meals. [facility] metFORMIN 500 mg 24 hr tablet 08-23 00:00: 09-23 04:59 :00 No [id number] 500mg Take 1 tablet by mouth in the morning and 1 tablet in the evening. Take with meals. Do all this for 30 days. [facility] amLODIPine 10 mg tablet 08-23 00:00: 09-23 04:59 :00 No [id number] 10mg Take 1 tablet by mouth in the morning for 30 days. [facility] tamsulosin 0.4 mg 24 hr capsule 08-23 00:00: 09-23 04:59 :00 No [id number] .4mg Take 1 capsule by mouth in the morning for 30 days. [facility] levoFLOXaci n 500 mg tablet 08-23 00:00: 00 08-26 04:59 :00 No [id number] 500mg Take 1 tablet by mouth every 24 (twenty-fo ur) hours for 2 days. [facility] cefTRIAXone (ROCEPHIN) 1,000 mg in NaCl 0.9% (NS) 100 mL MINI-BAG 08-22 19:30: 00 08-26 19:29 :00 No 1000mg 1,000 mg, IV Piggyback, Q24H ABX, 4 doses, First dose on 08/23/23 at 1430, Last dose on Naa 08/26/23 at 1430, Administer over 30 Minutes, 100 mL
Reas on for Anti-Infec tive: Empiric Therapy for Suspected Infection< br>Empiric Therapy Site: Urine
D uration of therapy: Once (ED) [facility] D5W IV infusion 1,000 mL 08-22 15:00: 00 08-22 16:53 :22 No 1000mL at 50 mL/hr, IV Infusion, ONCE, 1 dose, On Wed08/23/23 at 1000, Routine [facility] amLODIPine (NORVASC) tablet 5 mg 08-22 14:00: 00 Yes 5mg 5 mg, Oral, DAILY, First dose on Wed08/23/23 at 0900, Until Discontinu ed, Routine [facility] D5W 0.45% NaCl (1/2NS) IV infusion 1,000 mL 08-22 02:29: 00 08-23 17:53 :57 No 1000mL at 75 mL/hr, 1,000 mL, IV Infusion, CONTINUOUS , Starting on Wed08/22/23 at 2130, Until Wed08/24/23 at 1253, Routine [facility] D5W IV infusion 1,000 mL 08-21 21:30: 00 08-22 02:27 :22 No 1000mL at 100 mL/hr, IV Infusion, CONTINUOUS , Starting on Wed08/22/23 at 1630, Until Wed08/22/23 at 2127, Routine [facility] Sliding Scale Insulin - Lispro (HumaLOG) 08-21 21:00: 00 Yes Subcutaneo us, Q4H, First dose on Wed08/22/23 at 1600, Until Discontinu ed, Routine [facility] glucagon (GLUCAGEN DIAGNOSTIC KIT) injection 1 mg 08-21 20:17: 12 Yes 1mg 1 mg, Intramuscu lar, PRN, Starting on Wed08/22/23 at 1517, Until Discontinu ed, HAO, Blood Glucose < or = 70 mg/dL and patient is NPO, unable to swallow or has mental changes. [facility] dextrose 50 % in water (D50W) injection 25 mL 08-21 20:17: 12 Yes 25mL 25 mL, Slow IV Push, PRN, Starting on Wed08/22/23 at 1517, Until Discontinu ed, HAO, Blood Glucose < or = 70 mg/dL and patient is NPO, unable to swallow or has mental status changes. [facility] D5W IV infusion 1,000 mL 08-21 17:45: 00 08-21 20:16 :11 No 1000mL at 100 mL/hr, IV Infusion, CONTINUOUS , Starting on Wed08/22/23 at 1245, Until Wed08/22/23 at 1516, Routine [facility] tamsulosin (FLOMAX) capsule 0.4 mg 08-21 14:00: 00 Yes .4mg 0.4 mg, Oral, DAILY, First dose on Wed08/22/23 at 0900, Until Discontinu ed, Routine [facility] docusate (COLACE) capsule 100 mg 08-21 13:00: 00 Yes 100mg 100 mg, Oral, BID, First dose on Wed08/22/23 at 0800, Until Discontinu ed, Routine [facility] heparin (porcine) injection 5,000 Units 08-21 13:00: 00 Yes 5000U 5,000 Units, Subcutaneo us, Q12H, First dose on Wed08/22/23 at 0800, Until Discontinu ed, Routine [facility] D5W 0.45% NaCl (1/2NS) IV infusion 1,000 mL 08-21 06:15: 00 08-21 16:44 :38 No 1000mL at 100 mL/hr, 1,000 mL, IV Infusion, CONTINUOUS , Starting on Wed08/22/23 at 0115, Until Wed08/22/23 at 1144, Routine [facility] D5W 0.45% NaCl (1/2NS) Bolus infusion 1,000 mL 08-21 06:00: 00 08-21 06:21 :00 No 1000mL at 999 mL/hr, 1,000 mL, IV Infusion, ONCE, 1 dose, On Wed08/22/23 at 0100, Routine [facility] NaCl 0.9% (NS) bolus infusion 1,000 mL 08-21 04:15: 00 08-21 05:05 :00 No 1000mL at 999 mL/hr, 1,000 mL, IV Infusion, ONCE, 1 dose, On 08/21/23 at 2315, STAT [facility] bisacodyL (DULCOLAX) tablet 10 mg 08-21 04:02: 51 Yes 10mg 10 mg, Oral, QDAILYPRN, Starting on 08/21/23 at 2302, Until Discontinu ed, Routine, Constipati on [facility] ondansetron (ZOFRAN (PF)) injection 4 mg 08-21 04:02: 17 Yes 4mg 4 mg, Slow IV Push, Q6HPRN, Starting on 08/21/23 at 2302, Until Discontinu ed, Routine, Nausea and Vomiting (N/V) [facility] FENTanyl PF (SUBLIMAZE (PF)) injection 12.5 mcg 08-21 04:02: 09 08-22 04:01 :09 No 12.5ug 12.5 mcg, Slow IV Push, Q6HPRN, Starting on 08/21/23 at 2302, Until 08/22/23 at 2301, Routine, Pain (scale 7-10), Pain (scale 4-6) [facility] acetaminoph en (TYLENOL) tablet 650 mg 08-21 04:01: 56 Yes 650mg 650 mg, Oral, Q6HPRN, Starting on 08/21/23 at 2301, Until Discontinu ed, Routine, Pain (scale 1-3) [facility] magnesium citrate solution 296 mL 08-21 01:45: 00 08-21 01:25 :00 No 296mL 296 mL, Oral, ONCE, 1 dose, On 08/21/23 at 2045, Routine [facility] amLODIPine 5 mg tablet 08-16 00:00: 00 08-23 00:00 :00 No [id number] 5mg Take 1 tablet by mouth in the morning for 30 days. [facility] lactulose (CEPHULAC) solution 45 mL 08-15 15:45: 00 08-15 15:21 :00 No 45mL 45 mL, Oral, ONCE, 1 dose, On Wed08/16/23 at 1045, Routine [facility] amLODIPine (NORVASC) tablet 5 mg 08-15 14:00: 00 Yes 5mg 5 mg, Oral, DAILY, First dose on Wed08/16/23 at 0900, Until Discontinu ed, Routine [facility] sennosides (SENOKOT) tablet 8.6 mg 08-15 14:00: 00 Yes 8.6mg 8.6 mg, Oral, DAILY, First dose on Wed08/16/23 at 0900, Until Discontinu ed, Routine [facility] losartan (COZAAR) tablet 25 mg 08-15 14:00: 00 Yes 25mg 25 mg, Oral, DAILY, First dose (after last modificati on) on Wed08/16/23 at 0900, Until Discontinu ed, Routine [facility] docusate (COLACE) capsule 100 mg 08-15 13:00: 00 Yes 100mg 100 mg, Oral, BID, First dose on Wed08/16/23 at 0800, Until Discontinu ed, Routine [facility] lactulose (CEPHULAC) solution 30 mL 08-15 10:00: 00 08-15 09:33 :00 No 30mL 30 mL, Oral, ONCE, 1 dose, On Wed08/16/23 at 0500, Routine [facility] metFORMIN 500 mg 24 hr tablet 08-15 00:00: 00 08-23 00:00 :00 No [id number] 500mg Take 1 tablet by mouth in the morning and 1 tablet in the evening. Take with meals. Do all this for 30 days. [facility] acarbose 25 mg tablet 08-15 00:00: 00 08-23 00:00 :00 No [id number] 25mg Take 1 tablet by mouth in the morning and 1 tablet at noon and 1 tablet in the evening. Take with meals. Do all this for 30 days. [facility] pioglitazon e 15 mg tablet 08-15 00:00: 00 08-23 00:00 :00 No [id number] 15mg Take 1 tablet by mouth in the morning for 30 days. [facility] tamsulosin 0.4 mg 24 hr capsule 08-15 00:00: 00 08-23 00:00 :00 No [id number] .4mg Take 1 capsule by mouth in the morning for 30 days. [facility] losartan 25 mg tablet 08-15 00:00: 00 08-23 00:00 :00 No [id number] 25mg Take 1 tablet by mouth in the morning for 30 days. [facility] glipiZIDE (GLUCOTROL) tablet 5 mg 08-14 21:30: 00 Yes 5mg 5 mg, Oral, BIDAC, First dose on 08/15/23 at 1630, Until Discontinu ed, Routine [facility] KCL (KLOR-CON M20) tablet 40 mEq 08-14 21:30: 00 08-14 21:21 :00 No 40meq 40 mEq, Oral, ONCE, 1 dose, On 08/15/23 at 1630, Routine [facility] pioglitazon e (ACTOS) tablet 7.5 mg 08-14 17:00: 00 08-15 12:47 :51 No 7.5mg 7.5 mg, Oral, DAILY, First dose on 08/15/23 at 1200, Until Discontinu ed, Routine [facility] tamsulosin (FLOMAX) capsule 0.4 mg 08-14 15:49: 00 Yes .4mg 0.4 mg, Oral, DAILY, First dose on 08/15/23 at 1100, Until Discontinu ed, Routine [facility] amLODIPine (NORVASC) tablet 10 mg 08-14 14:00: 00 08-14 15:51 :30 No 10mg 10 mg, Oral, DAILY, First dose on 08/15/23 at 0900, Until Discontinu ed, Routine [facility] heparin (porcine) injection 5,000 Units 08-14 03:00: 00 08-14 06:07 :44 No 5000U 5,000 Units, Subcutaneo us, Q8H, First dose on 08/14/23 at 2200, Until Discontinu ed, Routine [facility] Sliding Scale Insulin - Lispro (HumaLOG) 08-14 02:00: 00 08-14 18:06 :14 No Subcutaneo us, TID MEALS+HS, First dose on 08/14/23 at 2100, Until Discontinu ed, Routine [facility] glucagon (GLUCAGEN DIAGNOSTIC KIT) injection 1 mg 08-14 00:36: 37 Yes 1mg 1 mg, Intramuscu lar, PRN, Starting on 08/14/23 at 1936, Until Discontinu ed, HAO, Blood Glucose < or = 70 mg/dL and patient is NPO, unable to swallow or has mental changes. [facility] dextrose 50 % in water (D50W) injection 25 mL 08-14 00:36: 37 Yes 25mL 25 mL, Slow IV Push, PRN, Starting on 08/14/23 at 1936, Until Discontinu ed, HAO, Blood Glucose < or = 70 mg/dL and patient is NPO, unable to swallow or has mental status changes. [facility] acetaminoph en (TYLENOL) tablet 650 mg 08-14 00:36: 24 Yes 650mg 650 mg, Oral, Q6HPRN, Starting on 08/14/23 at 1936, Until Discontinu ed, Routine, Pain (scale 1-3) [facility] aspirin chewable tablet 324 mg 08-13 23:15: 00 08-13 22:56 :00 No [id number] 324mg 324 mg, Oral, ONCE, 1 dose, On 08/14/23 at 1815, HAO [facility] lidocaine 2% viscous (LIDOCAINE VISCOUS) 2 % solution 15 mL 08-13 23:00: 00 08-13 22:10 :00 No [id number] 15mL 15 mL, Oral, ONCE, 1 dose, On 08/14/23 at 1800, Routine [facility] KCL (KLOR-CON M20) tablet 20 mEq 08-13 22:30: 00 08-13 22:59 :00 No [id number] 20meq 20 mEq, Oral, ONCE, 1 dose, On 08/14/23 at 1730, [facility] metoprolol tartrate (LOPRESSOR) tablet 50 mg 08-13 22:00: 00 08-13 22:58 :00 No [id number] 50mg 50 mg, Oral, ONCE, 1 dose, On 08/14/23 at 1700, [facility] iopamidol (ISOVUE 370-500 mL) injection 80 mL 08-13 21:30: 00 08-13 21:45 :00 No [id number] 80mL 80 mL, Intravenou s, ONCE, 1 dose, On 08/14/23 at 1645, Routine [facility] acetaminoph en (TYLENOL) tablet 650 mg 08-13 21:15: 00 08-13 22:57 :00 No [id number] 650mg 650 mg, Oral, ONCE, 1 dose, On 08/14/23 at 1615, [facility] amLODIPine (NORVASC) tablet 5 mg 08-13 21:15: 00 08-13 22:58 :00 No [id number] 5mg 5 mg, Oral, ONCE, 1 dose, On 08/14/23 at 1615, [facility] NaCl 0.9% (NS) bolus infusion 1,000 mL 08-13 21:15: 00 08-13 21:50 :00 No [id number] 1000mL at 999 mL/hr, 1,000 mL, IV Infusion, ONCE, 1 dose, On 08/14/23 at 1615, [facility] insulin NPH (HUMULIN N) injection 9 Units 2022-04 14:00: 00 Yes 9U 9 Units, Subcutaneo us, QAM WITH BREAKFAST, First dose (after last modificati on) on Wed04/24/23 at 0800, Until Discontinu ed, Routine [facility] losartan 25 mg tablet 2022-04 00:00: 00 08-15 00:00 :00 No [id number] 25mg Take 1 tablet by mouth in the morning. [facility] tamsulosin (FLOMAX) 0.4 mg 24 hr capsule 2022-04 00:00: 00 08-15 00:00 :00 No [id number] .4mg Take 1 capsule by mouth in the morning. [facility] metFORMIN 500 mg tablet 2022-04 00:00: 00 05-23 05:59 :00 No [id number] Take 1 tablet by mouth 2 (two) times daily with meals for 7 days, THEN 2 tablets 2 (two) times daily with meals for 21 days. [facility] insulin lispro (human) (HumaLOG U-100) injection 3 Units 2022-04 23:00: 00 Yes 3U 3 Units, Subcutaneo us, TID MEALS, First dose (after last modificati on) on Wed04/23/23 at 1700, Until Discontinu ed, Routine [facility] insulin NPH (HUMULIN N) injection 5 Units 2022-04 23:00: 00 Yes 5U 5 Units, Subcutaneo us, QPM, First dose (after last modificati on) on Wed04/23/23 at 1700, Until Discontinu ed, Routine [facility] losartan (COZAAR) tablet 25 mg 2022-04 15:00: 00 Yes 25mg 25 mg, Oral, DAILY, First dose on Wed04/23/23 at 0900, Until Discontinu ed, Routine [facility] Potassium Bicarb-Citr ic Acid (EFFER-K) effervescen t tablet 40 mEq 2022-04 13:00: 00 04-23 13:33 :00 No 40meq 40 mEq, Oral, ONCE, 1 dose, On Wed04/23/23 at 0700, Routine [facility] ramelteon (ROZEREM) tablet 8 mg 2022-04 10:45: 00 04-23 10:51 :00 No 8mg 8 mg, Oral, ONCE NOW, 1 dose, On Wed04/23/23 at 0500, Routine [facility] Blood-Gluco se Meter (ACCU-CHEK GUIDE GLUCOSE METER) [facility] 2022-04 00:00: 00 Yes [id number] Use as directed [facility] lancets 33 gauge [facility] 2022-04 00:00: 00 Yes [id number] Use as directed [facility] blood sugar diagnostic (ACCU-CHEK GUIDE TEST STRIPS) strip 2022-04 00:00: 00 Yes [id number] Use as directed [facility] pioglitazon e 15 mg tablet 2022-04 00:00: 00 08-15 00:00 :00 No [id number] 7.5mg Take 0.5 tablets by mouth in the morning. [facility] acarbose 25 mg tablet 2022-04 00:00: 00 08-15 00:00 :00 No [id number] 25mg Take 1 tablet by mouth in the morning and 1 tablet at noon and 1 tablet in the evening. Take with meals. [facility] atorvastati n 80 mg tablet 2022-04 00:00: 00 05-24 05:59 :00 No [id number] 80mg Take 1 tablet by mouth at bedtime for 30 days. [facility] glipiZIDE 5 mg tablet 2022-04 00:00: 00 05-24 05:59 :00 No [id number] 5mg Take 1 tablet by mouth 2 (two) times daily before breakfast and dinner for 30 days. [facility] enoxaparin (LOVENOX) injection 40 mg 2022-04 15:00: 00 Yes 40mg 40 mg, Subcutaneo us, DAILY, First dose on Wed04/22/23 at 0900, Until Discontinu ed, Routine [facility] insulin NPH (HUMULIN N) injection 8 Units 2022-04 14:00: 00 04-23 19:10 :37 No 8U 8 Units, Subcutaneo us, QAM WITH BREAKFAST, First dose on Wed04/22/23 at 0800, Until Discontinu ed, Routine [facility] insulin NPH (HUMULIN N) injection 4 Units 2022-04 23:00: 00 04-23 19:10 :37 No 4U 4 Units, Subcutaneo us, QPM, First dose on Wed04/21/23 at 1700, Until Discontinu ed, [facility] lispro (human[facility] (HumaLOG U-100) injection 2 Units 2022-04 23:00: 00 04-23 19:10 :37 No 2U 2 Units, Subcutaneo us, TID MEALS, First dose (after last modificati on) on Wed04/21/23 at 1700, Until Discontinu ed, Routine [facility] NaCl 0.9% (NS) IV infusion 250 mL 2022-04 21:15: 00 04-22 20:03 :10 No [id number] 250mL at 20 mL/hr, IV Infusion, CONTINUOUS , Starting on Wed04/21/23 at 1515, Until Wed04/22/23 at 1403, Routine
To keep vein open
[facility] perflutren lipid microsphere s (DEFINITY) injection 2 mL 2022-04 21:00: 00 04-21 20:15 :00 No [id number] 2mL 2 mL, IV Push, ONCE, 1 dose, On Wed04/21/23 at 1500, Routine [facility] atropine injection 1 mg 2022-04 21:00: 00 04-21 20:44 :00 No [id number] 1mg 1 mg, Slow IV Push, ONCE, 1 dose, On Wed04/21/23 at 1500, Routine [facility] DOBUTamine (DOBUTREX) 250 mg/250 mL RTU infusion 2022-04 20:13: 51 04-22 20:03 :10 No [id number] 5ug/kg/ min 5 mcg/kg/min ?59 kg (17.7 [...] the Dobutamine infusion. (see Adjunctive Therapy)<b r> [facility] perflutren protein-A microsphr (OPTISON) injection 3 mL 2022-04 17:15: 00 04-21 15:22 :00 No [id number] 3mL 3 mL, IV Push, ONCE, 1 dose, On Wed04/21/23 at 1115, Routine [facility] potassium chloride in water 10 mEq/100 mL RTU 10 mEq 2022-04 17:00: 00 04-21 20:59 :00 No 10meq 10 mEq, IV Piggyback, Q1H, 4 doses, First dose (after last reorder) on Wed04/21/23 at 1100, Last dose on Wed04/21/23 at 1400, Administer over 60 Minutes, 100 mL [facility] tamsulosin (FLOMAX) capsule 0.4 mg 2022-04 15:00: 00 Yes .4mg 0.4 mg, Oral, DAILY, First dose on Wed04/21/23 at 0900, Until Discontinu ed, Routine [facility] aspirin chewable tablet 81 mg 2022-04 15:00: 00 04-22 16:28 :38 No 81mg 81 mg, Oral, DAILY, First dose on Wed04/21/23 at 0900, Until Discontinu ed, Routine [facility] aspirin tablet 325 mg 2022-04 15:00: 00 04-21 06:21 :21 No 325mg 325 mg, Oral, DAILY, First dose on Wed04/21/23 at 0900, Until Discontinu ed, Routine [facility] Sliding Scale Insulin - Lispro (HumaLOG) 2022-04 14:00: 00 Yes Subcutaneo us, TID MEALS+HS, First dose on Wed04/21/23 at 0800, Until Discontinu ed, Routine [facility] magnesium sulfate in water 2 gram/50 mL (4 %) infusion 2 g 2022-04 12:30: 00 04-21 15:11 :00 No 2g 2 g, IV Piggyback, Administer over 60 Minutes, ONCE, 1 dose, On Wed04/21/23 at 0630, Routine [facility] Potassium Bicarb-Citr ic Acid (EFFER-K) effervescen t tablet 40 mEq 2022-04 12:30: 00 04-21 12:36 :00 No 40meq 40 mEq, Oral, ONCE, 1 dose, On Wed04/21/23 at 0630, [facility] glargine (LANTUS U-100) injection 9 Units 2022-04 07:45: 00 04-21 21:08 :08 No .15U/kg /d 9 Units (rounded from 8.745 Units = 0.15 Units/kg/d ay ?58.3 kg), Subcutaneo us, QHS, First dose (after last modificati on) on Wed04/21/23 at 0145, Until Discontinu ed, Routine [facility] atorvastati n (LIPITOR) tablet 80 mg 2022-04 06:30: 00 Yes 80mg 80 mg, Oral, QHS, First dose on Wed04/21/23 at 0030, Until Discontinu ed, Routine [facility] dextrose 50 % in water (D50W) injection 25 mL 2022-04 06:24: 50 Yes 25mL 25 mL, Slow IV Push, PRN, Starting on Wed04/21/23 at 0024, Until Discontinu ed, HAO, Blood Glucose < or = 70 mg/dL and patient is NPO, unable to swallow or has mental status changes. [facility] acetaminoph en (TYLENOL) tablet 650 mg 2022-04 05:53: 21 Yes 650mg 650 mg, Oral, Q6HPRN, Starting on Wed04/20/23 at 2353, Until Discontinu ed, Routine, Pain (scale 1-3) [facility] NaCl 0.9% (NS) bolus infusion 1,000 mL 2022-04 04:00: 00 04-21 03:45 :00 No 1000mL at 999 mL/hr, 1,000 mL, IV Infusion, ONCE, 1 dose, On Wed04/20/23 at 2200, STAT [facility] clopidogreL (PLAVIX) 300 mg tablet 300 mg 2022-04 03:30: 00 04-21 02:50 :00 No 300mg 300 mg, Oral, ONCE, 1 dose, On Wed04/20/23 at 2130, HAO [facility] HEPARIN SODIUM (PORCINE) 1,000 UNIT/ML BOLUS ACS ORDER SET 2022-04 02:45: 00 04-21 02:53 :00 No 60U/kg 3,540 Units (60 Units/kg ?59 kg), IV Push, ONCE, 1 dose, On Wed04/20/23 at 2044, HAO [facility] heparin 25,000 Units/250 mL (Premixed Bag) [...] INITIAL BOLUS OR INITIAL INFUSION RATE.
[facility] Vital Signs Vital Name Observation Time Observation Value Comments S ource Systolic blood pressure 2023-08-24 13:02:00 150 mm[Hg] [facility] Diastolic blood pressure 2023-08-24 13:02:00 88 mm[Hg] [facility] Heart rate 2023-08-24 13:02:00 79 /min [facility] Body temperature 2023-08-24 13:02:00 36.44 Deya [facility] Respiratory rate 2023-08-24 13:02:00 14 /min [facility] Oxygen saturation in Arterial blood by Pulse oximetry 2023-08-24 13:02:00 98 /min [facility] Body weight 2023-08-24 08:43:00 58.469 kg [facility] BMI 2023-08-24 08:43:00 22.83 kg/m2 [facility] Body height 2023-08-22 04:52:00 160 cm [facility] Systolic blood pressure 2023-08-16 16:53:00 154 mm[Hg] [facility] Diastolic blood pressure 2023-08-16 16:53:00 94 mm[Hg] [facility] Heart rate 2023-08-16 16:53:00 82 /min [facility] Body temperature 2023-08-16 16:53:00 36.61 Deya [facility] Respiratory rate 2023-08-16 16:53:00 16 /min [facility] Oxygen saturation in Arterial blood by Pulse oximetry 2023-08-16 16:53:00 99 /min [facility] Body weight 2023-08-16 09:56:00 56.473 kg [facility] BMI 2023-08-16 09:56:00 22.05 kg/m2 [facility] Body height 2023-08-15 04:07:00 160 cm [facility] Systolic blood pressure 2023-04-23 18:11:00 141 mm[Hg] [facility] Diastolic blood pressure 2023-04-23 18:11:00 80 mm[Hg] [facility] Heart rate 2023-04-23 18:11:00 101 /min [facility] Body temperature 2023-04-23 18:11:00 35.89 Deya [facility] Respiratory rate 2023-04-23 18:11:00 18 /min [facility] Oxygen saturation in Arterial blood by Pulse oximetry 2023-04-23 18:11:00 98 /min [facility] Body weight 2023-04-22 09:57:00 57.561 kg [facility] BMI 2023-04-22 09:57:00 22.48 kg/m2 [facility] Body height 2023-04-21 20:00:00 160 cm [facility] Procedures Procedure Date / Time Performed Performing Clinician Source POCT GLUCOSE (AUTOMATED) 2023-08-24 16:13:00 Jami Banda [facility] POCT GLUCOSE (AUTOMATED) 2023-08-24 12:34:00 Jami Banda [facility] BASIC METABOLIC PANEL (NA, K, CL, CO2, GLUCOSE, BUN, CREATININE, CA) 2023-08-24 08:42:00 Jerry Fields [facility] CBC WITH DIFF 2023-08-24 08:42:00 Jerry Fields [facility] POCT GLUCOSE (AUTOMATED) 2023-08-24 05:46:00 Jami Banda [facility] BASIC METABOLIC PANEL (NA, K, CL, CO2, GLUCOSE, BUN, CREATININE, CA) 2023-08-24 01:37:00 Jerry Fields [facility] POCT GLUCOSE (AUTOMATED) 2023-08-24 01:27:00 Jami Banda [facility] POCT GLUCOSE (AUTOMATED) 2023-08-23 21:29:00 Jami Banda [facility] BASIC METABOLIC PANEL (NA, K, CL, CO2, GLUCOSE, BUN, CREATININE, CA) 2023-08-23 17:41:00 Jerry Fields [facility] POCT GLUCOSE (AUTOMATED) 2023-08-23 16:42:00 Jami Banda [facility] POCT GLUCOSE (AUTOMATED) 2023-08-23 12:36:00 Jami Banda [facility] POCT GLUCOSE (AUTOMATED) 2023-08-23 09:09:00 Jami Banda [facility] MAGNESIUM 2023-08-23 08:23:00 Jerry Fields [facility] BASIC METABOLIC PANEL (NA, K, CL, CO2, GLUCOSE, BUN, CREATININE, CA) 2023-08-23 08:23:00 Jerry Fields [facility] CBC WITH DIFF 2023-08-23 08:23:00 Jerry Fields [facility] POCT GLUCOSE (AUTOMATED) 2023-08-23 04:52:00 Jami Banda [facility] POCT GLUCOSE (AUTOMATED) 2023-08-23 00:42:00 Jami Banda [facility] BASIC METABOLIC PANEL (NA, K, CL, CO2, GLUCOSE, BUN, CREATININE, CA) 2023-08-23 00:38:00 Jerry Fields [facility] POCT GLUCOSE (AUTOMATED) 2023-08-22 21:18:00 Jami Banda [facility] URIC ACID 2023-08-22 19:21:00 Alyssa Cain [facility] PROTEIN CREAT RATIO URINE RANDOM 2023-08-22 19:21:00 Alyssa Cain [facility] CORTISOL AM 2023-08-22 19:20:00 Alyssa Cain [facility] BASIC METABOLIC PANEL (NA, K, CL, CO2, GLUCOSE, BUN, CREATININE, CA) 2023-08-22 13:21:00 Lyubov Banda [facility] LACTIC ACID WHOLE BLOOD 2023-08-22 09:16:00 Loreta Banda mmad [facility] MAGNESIUM 2023-08-22 08:30:00 Lyubov Banda [facility] TROPONIN I 2023-08-22 08:30:00 Lyubov Banda [facility] CBC WITH DIFF 2023-08-22 08:30:00 [facility] PRO-BNP 2023-08-22 08:30:00 Lyubov Banda [facility] PHOSPHORUS 2023-08-22 04:01:00 Lyubov Banda [facility] BASIC METABOLIC PANEL (NA, K, CL, CO2, GLUCOSE, BUN, CREATININE, CA) 2023-08-22 04:01:00 Cosme Cardona [facility] URINALYSIS 2023-08-22 01:52:00 Cosme Cardona [facility] CT ABDOMEN PELVIS WO CONTRAST 2023-08-22 01:26:17 Cosme Cardona [facility] CREATINE KINASE 2023-08-22 01:24:00 Lyubov Banda [facility] LIPASE 2023-08-22 01:24:00 [facility]. METABOLIC PANEL ([id number]) 2023-08-22 01:24:00 Singer [facility] CBC WITH DIFF 2023-08-22 01:24:00 Singer [facility] POCT GLUCOSE (AUTOMATED) 2023-08-16 21:51:00 Yue Fields [facility] POCT GLUCOSE (AUTOMATED) 2023-08-16 16:54:00 Yue Fields [facility] POCT GLUCOSE (AUTOMATED) 2023-08-16 12:45:00 Yue Fields [facility] POCT GLUCOSE (AUTOMATED) 2023-08-16 02:06:00 Yue Fields [facility] POCT GLUCOSE (AUTOMATED) 2023-08-15 21:29:00 Yue Fields [facility] POCT GLUCOSE (AUTOMATED) 2023-08-15 16:39:00 Yue Fields [facility] POCT GLUCOSE (AUTOMATED) 2023-08-15 13:08:00 Yue Fields [facility] TROPONIN I 2023-08-15 10:41:[address] [facility] BASIC METABOLIC PANEL (NA, K, CL, CO2, GLUCOSE, BUN, CREATININE, CA) 2023-08-15 10:41:00 Shanice [facility] CBC WITH DIFF 2023-08-15 10:41:00 Juventino [facility] PROSTATIC SPECIFIC ANTIGEN 2023-08-15 05:32:00 [facility]-08-15 05:32[facility]00 [facility] 2023-08-15 04:03:00 Yue Fields [facility] URINALYSIS 2023 22:15:00 Umang Reynaga [facility] XR CHEST 1 VW 2023 21:46:00 Umang Reynaga [facility] CT ABDOMEN PELVIS W CONTRAST 2023 21:34:[address] [facility] CT TRAUMA HEAD WO CONTRAST 2023 21:33:[address] [facility] HB ECG ROUTINE & RHYTHM STRIP 2023 21:10:[address] [facility] PHOSPHORUS 2023 20:47:00 Rosmery [facility] CREATINE KINASE 2023 20:47:00 [facility]IP[facility] 2023 20:47:00 Rosmery [facility] MAGNESIUM 2023 20:47:00 Rosmery [facility] BETA HYDROXY-BUTYRATE 2023 20:47:00 Farida Reynaga [facility] TROPONIN I 2023 20:47:00 [facility] COMP. METABOLIC PANEL ([id number]) 2023 20:47:[address] [facility] CBC WITH DIFF 2023 20:47:00 Umang Reynaga [facility] GLYCOSYLATED HEMOGLOBIN (A1C) 2023 20:47:00 Jerry Fields [facility] N-TERMINAL PRO-BNP 2023 20:47:00 Michael Reynaga [facility] ACUTE CARE VENOUS BLOOD GAS 2023 20:46:[address] [facility] LACTIC ACID WHOLE BLOOD 2023 20:46:00 Kian Reynaga [facility] POCT GLUCOSE(AGE >30DAYS) 2023 20:26:[address] [facility] POCT GLUCOSE (AUTOMATED) 2023 20:23:[address] [facility] POCT GLUCOSE (AUTOMATED) 2023-04-23 18:09:00 Brien Banda [facility] POCT GLUCOSE (AUTOMATED) 2023-04-23 15:32:00 Brien Banda [facility] MAGNESIUM 2023-04-23 09:09:00 Loghin, Chet Un[facility] BASIC METABOLIC PANEL (NA, K, CL, CO2, GLUCOSE, BUN, CREATININE, CA) 2023-04-23 09:09:00 Chet Echavarria [facility] POCT GLUCOSE (AUTOMATED) 2023-04-23 02:56:[address] [facility] POCT GLUCOSE (AUTOMATED) 2023-04-23 00:32:00 [facility] POCT GLUCOSE (AUTOMATED) 2023-04-22 22:43:00 Solo [facility] POCT GLUCOSE (AUTOMATED) 2023-04-22 20:36:00 Solo [facility] POCT GLUCOSE (AUTOMATED) 2023-04-22 17:44:00 Solo [facility] POCT GLUCOSE (AUTOMATED) 2023-04-22 13:41:00 Solo [facility] MAGNESIUM 2023-04-22 10:37:00 Daja Aaliyah [facility] BASIC METABOLIC PANEL (NA, K, CL, CO2, GLUCOSE, BUN, CREATININE, CA) 2023-04-22 10:37:00 Daja Aaliyah [facility] CBC WITH DIFF 2023-04-22 10:37:00 Daja Aaliyah [facility] POCT GLUCOSE (AUTOMATED) 2023-04-22 03:32:00 Solo [facility] POCT GLUCOSE (AUTOMATED) 2023-04-22 01:34:00 Solo [facility] COMPLETE ECHOCARDIOGRAM DOBUTAMINE STRESS TEST W CONTRAST 2023-04-21 21:15:00 Jeanine Montana [facility] POCT GLUCOSE (AUTOMATED) 2023-04-21 17:36:00 Solo [facility] ACTIVATED PARTIAL THRMPLAS JERMAINE 2023-04-21 16:47:00 Sergio Aponte [facility] TRANSTHORACIC ECHO (TTE) COMPLETE W/ CONTRAST 2023-04-21 15:26:00 Kylie Fuchs [facility] TROPONIN I 2023-04-21 12:39:00 Víctor Fuchs Noel [facility] POCT GLUCOSE (AUTOMATED) 2023-04-21 09:39:00 Brien Banda [facility] MAGNESIUM 2023-04-21 09:10:00 Víctor Fuchs Noel [facility] BASIC METABOLIC PANEL (NA, K, CL, CO2, GLUCOSE, BUN, CREATININE, CA) 2023-04-21 09:10:00 Kylie Fuchs Noel [facility] LIPID PANEL ([id number])(TOTAL CHOLESTEROL, TRIGLYCERIDES, HDL) 2023-04-21 09:10:00 Kylie Fuchs Noel [facility] CBC WITH DIFF 2023-04-21 09:10:00 Víctor Fuchs [facility] ACTIVATED PARTIAL THRMPLAS JERMAINE 2023-04-21 09:10:00 Sergio Aponte [facility] XR CHEST 1 VW 2023-04-21 06:53:47 [place]íctor [place]uchs [place] [facility] TROPONIN I 2023-04-21 06:32:00 Víctor Fuchs [place] Noel [facility] IRON PANEL 2023-04-21 06:32:00 Víctor Fuchs [place] [facility] N-TERMINAL PRO-BNP 2023-04-21 06:32:00 Kylie Fuchs Noel [facility] CRITICAL CARE 2023-04-21 02:54:15 Sergio Aponte [facility] PROTHROMBIN TIME / INR 2023-04-21 02:44:00 Enrique Aponte [facility] ACTIVATED PARTIAL THRMPLAS JERMAINE 2023-04-21 02:44:00 Sergio Aponte [facility] URINALYSIS 2023-04-21 02:33:00 Sergio Aponte [facility] PROTEIN CREAT RATIO URINE RANDOM 2023-04-21 02:33:00 Tavia Fuchsmad Noel [facility] URINE DRUG (IMMUNOASSAY) - COMPREHENSIVE DRUG SCREEN W/O REFLEX 2023-04-21 02:33:00 Sergio Aponte [facility] PHOSPHORUS 2023-04-21 01:55:00 Víctor Fuchs Noel [facility] FERRITIN SERUM 2023-04-21 01:55:00 Víctor Fuchs Noel [facility] TROPONIN I 2023-04-21 01:55:00 [facility] THYROID STIMULATING HORMONE 2023-04-21 01:55:00 Kylie Fuchs Noel [facility] COMP. METABOLIC PANEL ([id number]) 2023-04-21 01:55:00 Sergio Aponte [facility] ETHANOL 2023-04-21 01:55:00 [facility] CBC WITH DIFF 2023-04-21 01:55:00 Sergio Aponte [facility] GLYCOSYLATED HEMOGLOBIN (A1C) 2023-04-21 01:55:00 Kylie Fuchs [facility] POCT GLUCOSE (AUTOMATED) 2023-04-21 01:54:00 Yue Aponte [facility] EKG-12 LEAD 2023-04-21 01:51:41 [facility] Start Date/Time End Date/Time Encounter Type Admission Type Attending Clinicians Care Facility Care Department Encounter ID Source 2023-08-21 19:47:00 2023-08-24 16:32:00 Hospital Encounter Cosme Cardona [facility] 1..840.114 350.1.13.10 4.2.7.2.686 [id number] [facility] 2023-08-20 00:00:00 2023-08-20 00:00:00 Patient Outreach Rosalie Irizarry [id number] 350.1.13.10 4.2.7.2.686 [id number] [facility] 2023-08-17 00:00:00 2023-08-17 00:00:00 Telephone Ricky Rivera [facility] [id number] 350.1.13.10 4.2.7.2.686 [id number] [facility] 2023 14:42:00 2023-08-16 18:40:00 Hospital Encounter Umang Reynaga David Oville, Jelani [facility] [id number] 350.1.13.10 4.2.7.2.686 [id number] [facility] 2023-04-27 00:00:00 2023-04-27 00:00:00 Transition of Care Jeannette Dawn JANIS BAEZ 1.2840.114 350.1.13.10 4.2.7.2.686 [id number] [facility] 2023-04-20 19:48:00 2023-04-23 19:54:00 Inpatient X [facility] [id number] [facility] 2023-04-20 19:48:00 2023-04-23 19:54:00 Hospital Encounter Sergio Aponte Rizwan Dacso, Matthew M [facility] [id number] 350.1.13.10 4.2.7.2.686 [id number] [facility] Results Test Description Test Time Test Comments Results Result Co mments Source [facility] 12:35:27* Test Item Value Reference Range Interpretation Comme nts POCT GLU (test code = 5464804279) 204 mg/dL 70-110 H Lab Interpretation (test cod e = 52727-6) [facility]normal [facility] (NA, K, CL, CO2, GLUCOSE, BUN, CREATININE, CA)2023-08-24 09:45:39* Test Item Value Reference Range Interpretation Comme nts NA (test code = 3107154690) 133 mmol/L 135-145 L K (test code = 5299040577) 3.7 mmol/L 3.5-5.0 CL (test code = 9873597285) 98 mmol/L 98-108 CO2 TOTAL (test code = 0480340480) 27 mmol/L 23-31 AGAP (test code = 5910695042) 8 2-16 BUN (test code = 6095627053) 13 mg/dL 7-23 GLUCOSE (test code = 5574615416) 188 mg/dL 70-110 H CREATININE (test code = 2160-0) 0.63 mg/dL 0.60-1.25 CALCIUM (test code = 6685592712) 9.4 mg/dL 8.6-10.6 eGFR (test code = 15790-9) 111.6 mL/min/1.73m2 CKD-EPI eGFR (2020). Assuming creatinine has been stable day-to-day for at least three months, the eGFR indicates Category G1 (>= 90 mL/min/1.73 m2) Lab Interpretation (test code = 50282-7) Abnormal [facility] with [id number] 09:21:26* Test Item Value Reference Range Interpretation [...] g/dL 31.2-35.0 H RDW-SD (test code = 00618-6) 36.9 fL 38.5-51.6 L RDW-CV (test code = 788-0) 11.6 % 12.1-15.4 L PLT (test code = 777-3) 407 150-328 H MPV (test code = 26808-2) 9.5 fL 9.8-13.0 L NRBC/100 WBC (test code = 0464719150) 0.0 0.0-10.0 NRBC x10^3 (test code = 9836449638) See_Comment [Automated messa ge] The system which generated this result transmitted reference range: 10*3/?L. The reference range was not used to interpret this result as normal/abnormal. GRAN MAT (NEUT) % (test code = 770-8) 63.1 % IMM GRAN % (test code = 1953196767) 0.30 % LYMPH % (test code = 736-9) 21.1 % MONO % (test code = 5905-5) 8.3 % EOS % (test code = 713-8) 6.5 % BASO % (test code = 706-2) 0.7 % GRAN MAT x10^3(ANC) (test code = 9786299951) 3.71 10*3/uL 1.99-6.95 IMM GRAN x10^3 (test code = 6971445698) 0.00-0.06 LYMPH x10^3 (test code = 731-0) 1.24 10*3/uL 1.09-3.23 MONO x10^3 (test code = 742-7) 0.49 10*3/uL 0.36-1.02 EOS x10^3 (test code = 711-2) 0.38 10*3/uL 0.06-0.53 BASO x10^3 (test code = 704-7) 0.04 10*3/uL 0.01-0.09 Lab Interpretation (test code = 17621-1) [facility]2023-08-24 05:47:46* Test Item Value Reference Range Interpretation Comme nts POCT GLU (test code = 3251388171) 126 mg/dL 70-110 H Lab Interpretation (test cod e = 68669-0) Abnormal [facility] Metabolic Panel (NA, K, CL, CO2, GLUCOSE, BUN, CREATININE, CA)2023-08-24 02:27:27* Test Item Value Reference Range Interpretation Comme nts NA (test code = 9436025981) 129 mmol/L 135-145 L K (test code = 7401676105) 3.9 mmol/L 3.5-5.0 CL (test code = 8847480568) 96 mmol/L 98-108 L CO2 TOTAL (test code = 4454769450) 29 mmol/L 23-31 AGAP (test code = 7221329871) 4 2-16 BUN (test code = 5654827980) 14 mg/dL 7-23 GLUCOSE (test code = 6385753461) 185 mg/dL 70-110 H CREATININE (test code = 2160-0) 0.56 mg/dL 0.60-1.25 L CALCIUM (test code = 3843782855) 9.2 mg/dL 8.6-10.6 eGFR (test code = 52055-6) 115.7 mL/min/1.73m2 CKD-EPI eGFR (2020). Assuming creatinine has been stable day-to-day for at least three months, the eGFR indicates Category G1 (>= 90 mL/min/1.73 m2) Lab Interpretation (test code = 35764-0) Abnormal [facility] GLUCOSE (AUTOMATED)2023-08-24 01:28:28* Test Item Value Reference Range Interpretation Comme nts POCT GLU (test code = 8086782336) 210 mg/dL 70-110 H Lab Interpretation (test cod e = 05736-5) Abnormal [facility] GLUCOSE (AUTOMATED)2023-08-23 21:30:04* Test Item Value Reference Range Interpretation Comme nts POCT GLU (test code = 7938173651) 149 mg/dL 70-110 H Lab Interpretation (test cod e = 32640-0) Abnormal [facility] GLUCOSE (AUTOMATED)2023-08-23 16:45:20* Test Item Value Reference Range Interpretation Comme nts POCT GLU (test code = 2427308205) 147 mg/dL 70-110 H Lab Interpretation (test cod e = 04047-1) Abnormal [facility] GLUCOSE (AUTOMATED)2023-08-23 12:36:56* Test Item Value Reference Range Interpretation Comme nts POCT GLU (test code = 0567663466) 131 mg/dL 70-110 H Lab Interpretation (test cod e = 30766-2) Abnormal [facility] GLUCOSE (AUTOMATED)2023-08-23 09:17:23* Test Item Value Reference Range Interpretation Comme nts POCT GLU (test code = 3629761782) 154 mg/dL 70-110 H Lab Interpretation (test cod e = 93974-9) Abnormal [facility] GLUCOSE (AUTOMATED)2023-08-23 05:03:01* Test Item Value Reference Range Interpretation Comme nts POCT GLU (test code = 3477207918) 183 mg/dL 70-110 H Lab Interpretation (test cod e = 31981-6) Abnormal [facility] Metabolic Panel (NA, K, CL, CO2, GLUCOSE, BUN, CREATININE, CA)2023-08-23 01:49:58* Test Item Value Reference Range Interpretation Comme nts NA (test code = 5517525492) 132 mmol/L 135-145 L K (test code = 3456465634) 4.1 mmol/L 3.5-5.0 CL (test code = 3353997451) 101 mmol/L 98-108 CO2 TOTAL (test code = 7337891502) 28 mmol/L 23-31 AGAP (test code = 0766684547) 3 2-16 BUN (test code = 1201148341) 17 mg/dL 7-23 GLUCOSE (test code = 9540543396) 149 mg/dL 70-110 H CREATININE (test code = 2160-0) 0.97 mg/dL 0.60-1.25 CALCIUM (test code = 9282944899) 8.4 mg/dL 8.6-10.6 L eGFR (test code = 35268-5) 91.6 mL/min/1.73m2 CKD-EPI eGFR (2020). Assuming creatinine has been stable day-to-day for at least three months, the eGFR indicates Category G1 (>= 90 mL/min/1.73 m2) Lab Interpretation (test code = 41820-4) Abnormal [facility] GLUCOSE (AUTOMATED)2023-08-23 00:43:06* Test Item Value Reference Range Interpretation Comme nts POCT GLU (test code = 5291845342) 126 mg/dL 70-110 H Lab Interpretation (test cod e = 54584-6) [facility]normal [facility] [id number] 22:59:03* Test Item Value Reference Range Interpretation Comme nts IBRAHIMA AM (test code = 7926360232) 24.7 ug/dL 4.5-23.0 H GINA (test code = GINA) Biotin has been reported to cause a positive bias, interpret results relative to patient's use of biotin. Lab Interpretation (test code = 98249-2) [facility]normal [facility]2023-08-22 21:29:10* Test Item Value Reference Range Interpretation Comme [facility] POCT GLU (test code = 7569869015) 341 mg/dL 70-110 H Lab Interpretation (test cod e = 90167-8) Abnormal [facility] Dallas[facility] [id number] 19:53:59* Test Item Value Reference Range Interpretation Comme [facility] URIC ACID (test code = 7038406825) 6.4 mg/dL 3.6-8.0 Lab Interpretation (test cod e = 12856-6) Normal [facility] Metabolic Panel (NA, K, CL, CO2, GLUCOSE, BUN, CREATININE, CA)2023-08-22 14:43:15* Test Item Value Reference Range Interpretation Comme nts NA (test code = 1885052118) 138 mmol/L 135-145 K (test code = 3507812201) 4.6 mmol/L 3.5-5.0 CL (test code = 3856800772) 102 mmol/L 98-108 CO2 TOTAL (test code = 3804087356) 28 mmol/L 23-31 AGAP (test code = 8200353864) 8 2-16 BUN (test code = 9949752266) 34 mg/dL 7-23 H GLUCOSE (test code = 6793638388) 224 mg/dL 70-110 H CREATININE (test code = 2160-0) 1.89 mg/dL 0.60-1.25 H CALCIUM (test code = 1785932230) 9.4 mg/dL 8.6-10.6 eGFR (test code = 05725-6) 41.1 mL/min/1.73m2 CKD-EPI eGFR (2020). Assuming creatinine has been stable day-to-day for at least three months, the eGFR indicates Category G3b (30 - 44 mL/min/1.73 m2) Lab Interpretation (test code = 18091-6) [facility]normal [facility] [id number] 14:42:45* Test Item Value Reference Range Interpretation Comme nts CK (test code = 0203766576) 224 U/L 33-194 H Lab Interpretation (test cod e = 58060-2) Abnormal [facility] Dallas[facility] [id number] 12:10:01* Test Item Value Reference Range Interpretation Comme nts PHOSPHORUS (test code = 0679095511) 5.8 mg/dL 2.5-5.0 H Lab Interpretation (test cod e = 96907-0) Abnormal [facility] Metabolic Panel (NA, K, CL, CO2, GLUCOSE, BUN, CREATININE, CA)2023-08-22 04:41:19* Test Item Value Reference Range Interpretation Comme nts NA (test code = 6139941159) 124 mmol/L 135-145 L K (test code = 8349650149) 4.7 mmol/L 3.5-5.0 CL (test code = 0605350013) 93 mmol/L 98-108 L CO2 TOTAL (test code = 8644917183) 18 mmol/L 23-31 L AGAP (test code = 4682439762) 13 2-16 BUN (test code = 0327198717) 68 mg/dL 7-23 H GLUCOSE (test code = 8476750594) 116 mg/dL 70-110 H CREATININE (test code = 2160-0) 6.60 mg/dL 0.60-1.25 H CALCIUM (test code = 1535014661) 9.0 mg/dL 8.6-10.6 eGFR (test code = 98002-6) 9.2 mL/min/1.73m2 CKD-EPI eGFR (2020). Assuming creatinine has been stable day-to-day for at least three months, the eGFR indicates Category G5 (<= 14mL/min/1.73 m2) Lab Interpretation (test code = 83085-2) [facility]normal [facility] WO [id number] 02:22:05Exam: CT Abdomen and Pelvis without Contrast, [...] osseous finding. Subacute/chronic left-sided rib fractures.Soft tissues: Unremarkable.[facility]. Metabolic Panel (40676) 2023-08-22 02:21:33* Test Item Value Reference Range Interpretation Comme nts NA (test code = 2815438695) 120 mmol/L 135-145 L K (test code = 5250722370) 4.8 mmol/L 3.5-5.0 CL (test code = 5533251498) 85 mmol/L 98-108 L CO2 TOTAL (test code = 7084124173) 21 mmol/L 23-31 L AGAP (test code = 5762054243) 14 2-16 BUN (test code = 8644335308) 70 mg/dL 7-23 H GLUCOSE (test code = 1318492989) 97 mg/dL 70-110 CREATININE (test code = 2160-0) 8.39 mg/dL 0.60-1.25 H TOTAL BILI (test code = 9738242982) 0.7 mg/dL 0.1-1.1 CALCIUM (test code = 6167567621) 8.8 mg/dL 8.6-10.6 T PROTEIN (test code = 2936641500) 7.2 g/dL 6.3-8.2 ALBUMIN (test code = 5943460820) 4.1 g/dL 3.5-5.0 ALK PHOS (test code = 1005966559) 95 U/L 34-122 ALTv (test code = 1742-6) 12 U/L 5-50 AST(SGOT) (test code = 6986890269) 24 U/L 13-40 eGFR (test code = 60878-8) 6.9 mL/min/1.73m2 CKD-EPI eGFR (2020). Assuming creatinine has been stable day-to-day for at least three months, the eGFR indicates Category G5 (<= 14mL/min/1.73 m2) Lab Interpretation (test code = 57368-8) [facility] Test Item Value Reference Range Interpretation Comme nts LIPASE (test code = 5541997561) 758 U/L 0-220 H Lab Interpretation (test cod e = 81845-6) [id number] 01:58:31* Test Item Value Reference Range Interpretation [...] g/dL 31.2-35.0 H RDW-SD (test code = 77367-2) 36.0 fL 38.5-51.6 L RDW-CV (test code = 788-0) 11.5 % 12.1-15.4 L PLT (test code = 777-3) 312 150-328 MPV (test code = 09108-6) 9.4 fL 9.8-13.0 L NRBC/100 WBC (test code = 4866409862) 0.0 0.0-10.0 NRBC x10^3 (test code = 4795769134) See_Comment [Automated message] The system which generated this result transmitted reference range: 10*3/?L. The reference range was not used to interpret this result as normal/abnormal. GRAN MAT (NEUT) % (test code = 770-8) 82.7 % IMM GRAN % (test code = 9221318803) 0.50 % LYMPH % (test code = 736-9) 6.7 % MONO % (test code = 5905-5) 9.8 % EOS % (test code = 713-8) 0.2 % BASO % (test code = 706-2) 0.1 % GRAN MAT x10^3(ANC) (test code = 3707069115) 12.19 10*3/uL 1.99-6.95 H IMM GRAN x10^3 (test code = 4732609860) 0.08 10*3/uL 0.00-0.06 H LYMPH x10^3 (test code = 731-0) 0.99 10*3/uL 1.09-3.23 L MONO x10^3 (test code = 742-7) 1.44 10*3/uL 0.36-1.02 H EOS x10^3 (test code = 711-2) 0.03 10*3/uL 0.06-0.53 L BASO x10^3 (test code = 704-7) 0.01-0.09 Lab Interpretation (test code = 92651-5) Abnormal [facility] GLUCOSE (AUTOMATED)2023-08-16 22:02:57* Test Item Value Reference Range Interpretation Comme nts POCT GLU (test code = 8748546090) 112 mg/dL 70-110 H Lab Interpretation (test cod e = 12158-5) Abnormal [facility] GLUCOSE (AUTOMATED)2023-08-16 16:59:58* Test Item Value Reference Range Interpretation Comme nts POCT GLU (test code = 4774090959) 127 mg/dL 70-110 H Lab Interpretation (test cod e = 78080-1) Abnormal [facility] GLUCOSE (AUTOMATED)2023-08-16 12:48:23* Test Item Value Reference Range Interpretation Comme nts POCT GLU (test code = 8625401981) 175 mg/dL 70-110 H Lab Interpretation (test cod e = 70147-0) Abnormal [facility] GLUCOSE (AUTOMATED)2023-08-16 02:07:02* Test Item Value Reference Range Interpretation Comme nts POCT GLU (test code = 0977341126) 195 mg/dL 70-110 H Notified Provide r Lab Interpretation (test code = 46224-7) Abnormal [facility] GLUCOSE (AUTOMATED)2023-08-15 21:36:15* Test Item Value Reference Range Interpretation Comme nts POCT GLU (test code = 3347833766) 284 mg/dL 70-110 H Lab Interpretation (test cod e = 58250-2) Abnormal [facility] GLUCOSE (AUTOMATED)2023-08-15 16:56:02* Test Item Value Reference Range Interpretation Comme nts POCT GLU (test code = 1470688602) 74 mg/dL 70-110 Lab Interpretation (test cod e = 07167-8) Normal [facility] GLUCOSE (AUTOMATED)2023-08-15 13:12:34* Test Item Value Reference Range Interpretation Comme nts POCT GLU (test code = 1457331347) 258 mg/dL 70-110 H Lab Interpretation (test cod e = 64487-6) Abnormal [facility] GLUCOSE (AUTOMATED)2023-08-15 04:04:43* Test Item Value Reference Range Interpretation Comme nts POCT GLU (test code = 9043432709) 120 mg/dL 70-110 H Lab Interpretation (test cod e = 54524-3) [facility] Hem[facility] (A1C)2023-08-15 01:17:32* Test Item Value Reference Range Interpretation Comme nts HGB A1C (test code = 4548-4) 8.9 % 4.0-5.7 H GINA (test code = GINA) Reference RangesNormal: <5.7%Prediabetes: 5.7 - 6.4%Diabetes: > 6.5% Lab Interpretation (test code = 06432-3) [facility]normal [facility] DallasBeta Ohieymv-Fmyrpjct2750-88-21 01:00:45* Test Item Value Reference Range Interpretation Comme nts BOH (test code = 4267185287) 0.5 mmol/L GINA (test code = GINA) Normal Ranges: ? ? Nonfasting ? Less than 0.1 mmol/L ? ? Overnight Fast ? ? ? Less than 0.4 mmol/L ? ? Fasting (1-2 weeks) ?6-8 mmol/L Test developed and characteristics determined by [facility] Laboratory Services. [facility] DallasCreatine Iilkef3486-87-27 23:07:16* Test Item Value Reference Range Interpretation Comme nts CK (test code = 1675557836) 148 U/L 33-194 Lab Interpretation (test cod e = 31767-2) Normal [facility] DallasTROPONIN [id number] 22:18:16* Test Item Value Reference Range Interpretation Comme nts TROPONIN I (test code = 5942937508) 0.081 ng/mL <=0.034 H GINA (test code [...] of biotin. Lab Interpretation (test code = 05006-7) Abnormal [facility] DallasN-TERMINAL TTT-[id number] 22:15:55* Test Item Value Reference Range Interpretation Comme [facility] NT-proBNP (test code = 37631-2) 999 pg/mL <=125 H GINA (test code = GINA) Positive: Heart Failure Likely Lab Interpretation (test code = 62650-6) Abnormal [facility] DallasMagnesium2024-04-20 22:07:17* Test Item Value Reference Range Interpretation Comme nts MAGNESIUM (test code = 1962481846) 1.8 mg/dL 1.7-2.4 Lab Interpretation (test cod e = 31091-0) Normal [facility] DallasCOMP. METABOLIC PANEL (11486)2023 22:06:57* Test Item Value Reference Range Interpretation Comme nts NA (test code = 4248597307) 130 mmol/L 135-145 L K (test code = 0178951078) 3.4 mmol/L 3.5-5.0 L CL (test code = 9585735978) 93 mmol/L 98-108 L CO2 TOTAL (test code = 6776120652) 26 mmol/L 23-31 AGAP (test code = 7186478477) 11 2-16 BUN (test code = 6793235205) 39 mg/dL 7-23 H GLUCOSE (test code = 4944632989) 142 mg/dL 70-110 H CREATININE (test code = 2160-0) 2.40 mg/dL 0.60-1.25 H TOTAL BILI (test code = 3162225100) 1.2 mg/dL 0.1-1.1 H CALCIUM (test code = 5760063127) 9.1 mg/dL 8.6-10.6 T PROTEIN (test code = 2331805346) 7.7 g/dL 6.3-8.2 ALBUMIN (test code = 6711519325) 4.2 g/dL 3.5-5.0 ALK PHOS (test code = 0009049415) 102 U/L 34-122 ALTv (test code = 1742-6) 16 U/L 5-50 AST(SGOT) (test code = 1055735642) 26 U/L 13-40 eGFR (test code = 24926-0) 30.9 mL/min/1.73m2 CKD-EPI eGFR (2020). Assuming creatinine has been stable day-to-day for at least three months, the eGFR indicates Category G3b (30 - 44 mL/min/1.73 m2) Lab Interpretation (test code = 06323-0) [facility]normal [facility] DallasPhosphorus2024-04-20 22:06:37* Test Item Value Reference Range Interpretation Comme nts PHOSPHORUS (test code = 8527385385) 4.9 mg/dL 2.5-5.0 Lab Interpretation (test cod e = 53433-4) Normal [facility] DallasLIPASE2024-04-20 22:06:17* Test Item Value Reference Range Interpretation Comme nts LIPASE (test code = 0655579202) 204 U/L 0-220 Lab Interpretation (test cod e = 02230-4) Normal [facility] WITH [id number] 21:54:56* Test Item Value Reference Range Interpretation [...] g/dL 31.2-35.0 H RDW-SD (test code = 97051-8) 38.1 fL 38.5-51.6 L RDW-CV (test code = 788-0) 11.8 % 12.1-15.4 L PLT (test code = 777-3) 235 150-328 MPV (test code = 40486-2) 11.1 fL 9.8-13.0 NRBC/100 WBC (test code = 6012053277) 0.0 0.0-10.0 NRBC x10^3 (test code = 0372945176) See_Comment [Automated message] The system which generated this result transmitted reference range: 10*3/?L. The reference range was not used to interpret this result as normal/abnormal. GRAN MAT (NEUT) % (test code = 770-8) 80.3 % IMM GRAN % (test code = 5788484882) 0.60 % LYMPH % (test code = 736-9) 8.7 % MONO % (test code = 5905-5) 10.0 % EOS % (test code = 713-8) 0.2 % BASO % (test code = 706-2) 0.2 % GRAN MAT x10^3(ANC) (test code = 7887510962) 10.18 10*3/uL 1.99-6.95 H IMM GRAN x10^3 (test code = 9462116501) 0.07 10*3/uL 0.00-0.06 H LYMPH x10^3 (test code = 731-0) 1.11 10*3/uL 1.09-3.23 MONO x10^3 (test code = 742-7) 1.27 10*3/uL 0.36-1.02 H EOS x10^3 (test code = 711-2) 0.03 10*3/uL 0.06-0.53 L BASO x10^3 (test code = 704-7) 0.03 10*3/uL 0.01-0.09 Lab Interpretation (test code = 46683-0) Abnormal [facility] DallasXR CHEST 1 [id number] 21:49:58EXAM: XR CHEST 1 2023 4:38 PM HISTORY: 58 years-old Male with r/o infilrate . TECHNIQUE: Portable AP view of the chest. COMPARISON: 04/21/2023 FINDINGS: Lines and tubes: None. Cardiomediastinal: The cardiomediastinal silhouette is unremarkable. Lungs and pleura: The lungs are clear. No focal consolidation,pneumothorax, or pleural effusion is seen. Included osseous structures show no acuteabnormality.[facility] DallasCT ABDOMEN PELVIS W [id number] 21:45:03EXAM: CT ABDOMEN AND PELVIS WITH CONTRAST [...] change involving the spine, sacroiliac jointsand hips ispresent.[facility] DallasCT TRAUMA HEAD WO [id number] 21:38:37FULL RESULT: Examination: CT TRAUMA HEAD WO CONTRAST on 2023 4:16 PM Clinical Indication: Headache, hypertensive Comparison: None Technique: Noncontrast imaging was obtained from base to vertex.Findings: The sulci and ventricles were unremarkable. There may be subtlewhite matter microvascularischemic changes, notably in the anteriorperiventricular region, but there is no evidence for hemorrhage or otherclearly acute intracranial process.[facility] DallasLamdic Acid Whole Kvnie0145-52-46 21:30:25* Test Item Value Reference Range Interpretation Comme [facility] LACTIC ACID (test code = 9019715993) 1.58 mmol/L 0.50-2.20 Lab Interpretation (test cod e = 92538-0) Normal [facility] Care Venous Blood [id number] 21:30:25 * Test Item Value Reference Range Interpretation Comme nts PH (test code = 4662808305) 7.34 7.32-7.42 PCO2 NOY (test code = 0360550962) 45 41-51 PO2 NOY (test code = 6625268994) 24 25-40 L HCO3 NOY (test code = 2172134992) 24 24-28 AC VBE(BEAKER) (test code = 7151110696) -1.9 mEq/L Lab Interpretation (test cod e = 99678-1) Abnormal [facility] GLUCOSE (AUTOMATED)2023 20:26:17* Test Item Value Reference Range Interpretation Comme nts POCT GLU (test code = 2989748811) 165 mg/dL 70-110 H Lab Interpretation (test cod e = 25883-8) Abnormal [facility] GLUCOSE(AGE >30DAYS)2023 20:26:00* Test Item Value Reference Range Interpretation Comme nts POCT Glu (age>30days) (test code = 3342) 165 mg/dL 70-110 A Lab Interpretation (test cod e = 15614-1) [facility] 18:15:28* Test Item Value Reference Range Interpretation Comme nts POCT GLU (test code = 4158927250) 218 mg/dL 70-110 H Lab Interpretation (test cod e = 25283-3) [facility]23 15:35:23* Test Item Value Reference Range Interpretation Comme nts POCT GLU (test code = 7460672482) 186 mg/dL 70-110 H Lab Interpretation (test cod e = 68873-4) [facility]23 02:57:57* Test Item Value Reference Range Interpretation Comme nts POCT GLU (test code = 0868767835) 82 mg/dL 70-110 Lab Interpretation (test cod e = 76576-6) Normal [facility] GLUCOSE (AUTOMATED)2023-04-23 00:33:51* Test Item Value Reference Range Interpretation Comme nts POCT GLU (test code = 0818866071) 181 mg/dL 70-110 H Lab Interpretation (test cod e = 28899-0) [facility]23-[facility]-22 22:54:22* Test Item Value Reference Range Interpretation Comme nts POCT GLU (test code = 5921688541) 127 mg/dL 70-110 H Lab Interpretation (test cod e = 46550-9) [facility]23-[facility]-22 20:37:54* Test Item Value Reference Range Interpretation Comme nts POCT GLU (test code = 8062747699) 230 mg/dL 70-110 H Lab Interpretation (test cod e = 99557-9) [facility]23-04-22 17:46:23* Test Item Value Reference Range Interpretation Comme nts POCT GLU (test code = 6666801242) 144 mg/dL 70-110 H Lab Interpretation (test cod e = 20927-4) [facility]23-[facility]22 13:42:26* Test Item Value Reference Range Interpretation Comme nts POCT GLU (test code = 4091964856) 229 mg/dL 70-110 H Lab Interpretation (test cod e = 39031-3) Abnormal [facility] GLUCOSE (AUTOMATED)2023-04-22 03:33:49* Test Item Value Reference Range Interpretation Lianet garcía POCT GLU (test code = 5275106119) 222 mg/dL 70-110 H Lab Interpretation (test cod e = 10306-5) Abnormal [facility] GLUCOSE (AUTOMATED)2023-04-22 01:36:03* Test Item Value Reference Range Interpretation Lianet garcía POCT GLU (test code = 0994608064) 282 mg/dL 70-110 H Lab Interpretation (test cod e = 40451-3) [facility]normal [facility] DallasEchocardiogram dobutamine stress test 2023-04-21 22:26:30* Test Item Value Reference Range Interpretation Lianet garcía Height (test code = 0145706083) 63 in Weight (test code = 1981571536) 130 lbs Systolic BP (test code = 4235726042) 122 mmHg Diastolic BP (test code = 1022753796) 81 mmHg Heart Rate (test code = 2312728123) 105 bpm BSA (test code = 9477422643) 1.[address] Depresion (mm) (test code = 2124784641) [address] Depression (mm) (test code = 9781029340) 0 mm Radiology Study observation (narrative) (test code = 01182-9) GINA (test code = GINA) Table formatting [...] left ventricular wall motion is globally hyperkinetic. [facility] DallasTransthoracic echo (TTE)2023-04-21 18:05:03* Test Item Value Reference Range Interpretation Comme nts Height (test code = 2835073456) 63 in Weight (test code = 5824805861) 130 lbs Systolic BP (test code = 1616357446) 114 mmHg Diastolic BP (test code = 8524348871) 75 mmHg Heart Rate (test code = 6480704327) 98 bpm BSA (test code = 4278773722) 1.61 m2 LVIDD (test code = 3305376831) 4.00 cm Left Ventricular End Diastolic Volume by Teichholz Method (test code = 9311138) 70.0 mL IVS (test code = 4120149966) 1.07 cm Interventricular Septum Diastolic Thickness by 2D (test code = 6854963) 1.07 cm LVPWD (test code = 9206364390) 1.05 cm PW (test code = 4132015174) 1.05 cm 0.6-1.1 EF(Teich) (test code = 3873194091) 62.60 % LVIDS (test code = 6370809004) 2.70 cm Left Ventricular End Systolic Volume by Teichholz Method (test code = 3064613) 26.2 mL FS (test code = 3446920083) 33 % EF - 2D (test code = 91549961) 62.60 % Ao root diam (test code = 3665658385) 3.70 cm Aortic root (test code = 9125688607) 3.7 cm Ao root annulus (test code = 8100089737) 3.7 cm LA size (test code = 7386517973) 3.2 cm LVOT diameter (test code = 7603401893) 2.08 cm LVOT area (test code = 9361315199) 3.40 cm2 MV Peak E Nima (test code = 3698838977) 48.3 cm/s E wave decelartion time (test code = 8203396080) 0.15 s MV Peak A Nima (test code = 0894867390) 74.4 cm/s E/A ratio (test code = 6752134385) 0.65 ratio MV Prop V (test code = 7691683565) 21.20 cm/s LAV(MOD-sp4) (test code = 2285476889) 35.30 mL Tapse (test code = 6346421971) 1.73 cm LVOT stroke volume (test code = 6192054814) 45.20 cm3 LVOT peak nima (test code = 1199812374) 79.0 cm/s LVOT mn grad (test code = 7778508665) 1.3 mmHg AV LVOT peak gradient (test code = 0123216137) 2.50 mmHg LVOT peak VTI (test code = 8048766481) 13.2 cm LV V1 mean (test code = 9029913246) 52.90 cm/s Ao peak nima (test code = 9260230187) 83.8 cm/s AV area peak nima (test code = 2998978680) 3.2 cm2 Ao max PG (test code = 6322435371) 2.80 mm[Hg] AV peak gradient (test code = 3813811456) 2.8 mmHg LA Volume Index (BP) (test code = 7940121270) 25.9 mL/m2 LA volume (BP) (test code = 8005176027) 41.8 mL LAV(MOD-sp2) (test code = 1481016071) 40.90 mL A4C EF (test code = 6981324423) 54.40 % EF(sp4-el) (test code = 4052868997) 55.00 % SV(MOD-sp4) (test code = 9157261359) 53.10 mL SV(sp4-el) (test code = 3304559182) 55.60 mL Radiology Study observation (narrative) (test code = 96858-9) GINA (test code = GINA) ?Left?Ventricle: Left [...] enhancing agent used. Patient exhibited sinus rhythm. [facility] GLUCOSE (AUTOMATED)2023-04-21 17:48:26* Test Item Value Reference Range Interpretation Comme nts POCT GLU (test code = 6031188641) 198 mg/dL 70-110 H Lab Interpretation (test cod e = 08868-2) [facility]normal [facility] CHEST 1 [id number] 15:12:07EXAM: XR CHEST 1 VW HISTORY: NSTEMI COMPARISON: None. FINDINGS: Small bandlike densities in the left midlung have more the appearance ofatelectasis than pneumonia. The lungs are well expanded and clearotherwise. The heart and great vessels are normal except for calcium in thearch of the aorta.[facility] GLUCOSE (AUTOMATED)2023-04-21 09:39:57* Test Item Value Reference Range Interpretation Comme nts POCT GLU (test code = 1587677298) 243 mg/dL 70-110 H Lab Interpretation (test cod e = 52003-4) Abnormal [facility] DallasFerritin [id number] 07:28:27* Test Item Value Reference Range Interpretation Comme nts FERRITIN (test code = 8255306350) 76.3 ng/mL 18.0-464.0 GINA (test code = GINA) Biotin has been reported to cause a negative bias, interpret results relative to patient's use of biotin. Lab Interpretation (test code = 59480-8) Normal [facility] DallasGlycosylated Hemoglobin (A1C)2023-04-21 07:25:47* Test Item Value Reference Range Interpretation Comme nts HGB A1C (test code = 4548-4) 12.6 % 4.0-5.7 H GINA (test code = GINA) Reference RangesNormal: <5.7%Prediabetes: 5.7 - 6.4%Diabetes: > 6.5% Lab Interpretation (test code = 78029-9) Abnormal [facility] DallasThyroid Stimulating Yvluzfd0574-07-26 07:24:07 * Test Item Value Reference Range Interpretation Comme nts TSH (test code = 7621597037) 2.56 See_Comment [Automated messa ge] The system which generated this result transmitted reference range: 0.45 - 4.70 mIU/L. The reference range was not used to interpret this result as normal/abnormal. Lab Interpretation (test code = 86598-9) Normal [facility] DallasPhosphorus2023-12-27 06:52:06* Test Item Value Reference Range Interpretation Comme nts PHOSPHORUS (test code = 2399255606) 3.2 mg/dL 2.5-5.0 Lab Interpretation (test cod e = 93202-5) Normal [facility] DallasCritical Hswu5484-78-12 02:54:15NSergio chin MD ? ? 04/20/2023 ?8:54 [...] separately billable procedures and treating other patients. [facility] DallasTrblount memorial hospitaldian [id number] 02:30:18* Test Item Value Reference Range Interpretation Comme nts TROPONIN I (test code = 1922867206) 0.154 ng/mL <=0.034 H GINA (test code [...] of biotin. Lab Interpretation (test code = 50190-5) Abnormal [facility] DallasETHANOL2023-12-27 02:24:46 ALCOHOL<10mg/dL04/20/2023 8:24 PM [facility]10 Cjjaeyjd53-393 Toxic>100 Depression of [employer]LE[employer] COACH>400 Fatalities ReportedUnEnnis Regional Medical CenterCOMP. METABOLIC PANEL (40182)2023-04-21 02:19:15* Test Item Value Reference Range Interpretation Comme nts NA (test code = 3230284838) 129 mmol/L 135-145 L K (test code = 2736847747) 3.5 mmol/L 3.5-5.0 CL (test code = 9517488889) 94 mmol/L 98-108 L CO2 TOTAL (test code = 8401607242) 28 mmol/L 23-31 AGAP (test code = 0114990167) 7 2-16 BUN (test code = 7503276806) 26 mg/dL 7-23 H GLUCOSE (test code = 1473637440) 314 mg/dL 70-110 H CREATININE (test code = 0448714125) 0.92 mg/dL 0.60-1.25 TOTAL BILI (test code = 8835797952) 0.8 mg/dL 0.1-1.1 CALCIUM (test code = 1927852827) 8.5 mg/dL 8.6-10.6 L T PROTEIN (test code = 5091113108) 6.0 g/dL 6.3-8.2 L ALBUMIN (test code = 7209531803) 3.3 g/dL 3.5-5.0 L ALK PHOS (test code = 9600039945) 95 U/L 34-122 ALTv (test code = 1742-6) 23 U/L 5-50 AST(SGOT) (test code = 3353343033) 30 U/L 13-40 eGFR (test code = 45771-1) 98.2 mL/min/1.73m2 CKD-EPI eGFR (2020). Assuming creatinine has been stable day-to-day for at least three months, the eGFR indicates Category G1 (>= 90 mL/min/1.73 m2) Lab Interpretation (test code = 76007-2) Abnormal [facility] WITH [id number] 02:03:54* Test Item Value Reference Range Interpretation [...] g/dL 31.2-35.0 H RDW-SD (test code = 12144-3) 36.2 fL 38.5-51.6 L RDW-CV (test code = 788-0) 11.6 % 12.1-15.4 L PLT (test code = 777-3) 178 See_Comment [Automated [employer] ge] The system which generated this result transmitted reference range: 150 - 328 10*3/?L. The reference range was not used to interpret this result as normal/abnormal. MPV (test code = 35686-1) 10.9 fL 9.8-13.0 NRBC/100 WBC (test code = 5906754202) 0.0 See_Comment [Automated [employer] ssage] The system which generated this result transmitted reference range: 0.0 - 10.0 /100 WBCs. The reference range was not used to interpret this result as normal/abnormal. NRBC x10^3 (test code = 1109748952) See_Comment [Automated [employer] ge] The system which generated this result transmitted reference range: 10*3/?L. The reference range was not used to interpret this result as normal/abnormal. GRAN MAT (NEUT) % (test code = 770-8) 81.3 % IMM GRAN % (test code = 0071551371) 0.30 % LYMPH % (test code = 736-9) 10.5 % MONO % (test code = 5905-5) 7.6 % EOS % (test code = 713-8) 0.1 % BASO % (test code = 706-2) 0.2 % GRAN MAT x10^3(ANC) (test code = 2735508993) 9.55 10*3/uL 1.99-6.95 H IMM GRAN x10^3 (test code = 9526055801) 0.04 10*3/uL 0.00-0.06 LYMPH x10^3 (test code = 731-0) 1.23 10*3/uL 1.09-3.23 MONO x10^3 (test code = 742-7) 0.89 10*3/uL 0.36-1.02 EOS x10^3 (test code = 711-2) 0.06-0.53 L BASO x10^3 (test code = 704-7) 0.01-0.09 Lab Interpretation (test code = 11954-7) [facility]normal [facility] DallasPO[facility]2023-04-21 01:55:51* Test Item Value Reference Range Interpretation Comme [facility] POCT GLU (test code = 6684090513) 408 mg/dL 70-110 H Lab Interpretation (test cod e = 42395-6) Abnormal [facility] DallasCOMPREHENSIVE METABOLIC [id number] 05:07:51* Test Item Value Reference Range Interpretation Comme [facility] GLUCOSE (test code = 2217) 224 MG/DL 70-99 H BUN (test code = 2208) 22 MG/DL 6-20 H CREATININE (test code = 2214) 0.71 MG/DL 0.80-1.40 L eGFR (2020 CKD-EPI) (test code = 61759) 109 ML/MIN/1.73 >60 CALC BUN/CREAT (test code [...] code = 2219) 24 U/L 5-50 LIPID [id number] 05:07:51* Test Item Value Reference Range Interpretation [...] SPECIMENS. FOR MOREINFORMATION, SEE CLIENT ANNOUNCEMENT AT [email or web address] [email or web address] RATIO LDL/HDL (test code = 2238) 1.72 RATIO <3.55 PSA, [id number] 05:07:10* Test Item Value Reference Range Interpretation Comme nts PSA, TOTAL (test code = 2606) 19.70 NG/ML See_Comment H NOTE: Methodolog y is Ashley Jasmina Electrochemiluminescence Immunoassay traceable to WHO reference standard 96/760. UNLESS OTHERWISE INDICATED, ALL TESTING PERFORMED [facility] [address] [place] [address] LOTTERIES AGENT: DUSTIN COLMENARES M.D. CLIA NUMBER [id number] [place]. [id number] [Automated message] The system which generated this result transmitted reference range: <=4.00. The reference range was not used to interpret this result as normal/abnormal. HEMOGLOBIN [id number] 02:46:58* Test Item Value Reference Range Interpretation Comme nts HEMOGLOBIN A1c (test code = 72673) 11.0 % 4.2-5.6 H [employer] GUIDELINES FOR HGB A1C: [...] OR LABORATORY CONSULTATION. CBC W/AUTO DIFF WITH [id number] 02:32:39* Test Item Value Reference Range Interpretation [...] 0.00-0.10 ABS NUCLEATED RBCS (test code = 58578) 0.00 K/UL 0.00-0.11 Consult Notes Date/Time Note Provider Source 2023-08-23 11:10:50 Associated Order(s): CONSULT ADULT PHYSICAL THERAPY Patient agreeable to working with physical therapy. Patient met semi reclined in bed. Recommend nursing staff utilize Min A to safely assist patient with mobility out of the bed or chair. PHYSICAL THERAPY EVALUATION Consult received, chart reviewed and evaluation complete this date. Patient is referred to PT for evaluation and treatment. Patient is a 58 year old male who presents to hospital for ELIEZER (acute kidney injury) [N17.9] . Discharge Recommendations: Therapy Needs and Potential: Patient demonstrates good potential to improve and meet therapy goals with further physical therapy services. Challenges to Home Transition: increased risk of falls decreased safety awareness Equipment recommendations: rolling walker Current Functional Status and/or Treatment: AM-PAC 6 Clicks (Raw Score 0=Dependent, 24=Independent; Low function Raw Score 0= Dependent, 32=Independent): Raw Score - Basic Mobility : 17 T-Scale Score - Basic Mobility : 39.67 Bed Mobility: Rolling: Supervision Cued on hand and feet placement Dizziness No Transfers: Sit to stand: Supervision using rolling Walker. Stand to sit: Supervision using rolling Walker. Verbal cueing provided for correct hand placement and correct use of AD Cued on hand and feet placement Dizziness No Ambulation: Assisted patient with ambulation as follows: 24 feet using rolling Walker. and Minimal Assistance. Cued on proper hand and feet placement Dizziness No Therapeutic exercise: patient/caregiver verbalizes understanding of instructions. After session, patient semi reclined in bed. Call button provided. Patient nurse was notified on patient's current condition. PLAN OF CARE: While in the hospital, PT will follow patient at least 2 times per week,once or twice a day, per patient's tolerance and needs. See below for complete details. Admit Date: 08/21/2023 Hospital Diagnosis:ELIEZER (acute kidney injury) [N17.9] PT Diagnosis: Difficulty walking and Weakness Weight Bearing Precaution: NA General Precautions: General, Fall,Jensen catheter Bracing/Cast present or required:N/A PMH: Past Medical History: Diagnosis Date HTN (hypertension) Uncontrolled diabetes mellitus with hyperglycemia PSH: History reviewed. No pertinent surgical history. Prior Living Situation: Per patient he lives at his friends. DME: No device Prior level of Mobility: community ambulation Suspected ischemic or hemorraghic stroke:No Subjective: Patient agreed to participate with PT. Patient reported that his jensen hurts.Nurse was notified. Patient/Family Goals: To get better and go home. Patient/Family verbalizes understanding of condition: Yes PAIN: Pain when jensen is moved. COMMUNICATION Primary Language: Bruneian Able to Verbalize needs: Yes Vision:good; no issues reported Hearing:good; no issues reported ORIENTATION/COGNITION: Oriented to: person and place Awake: Yes Alert: Yes Dizzy: No Follows Commands: Yes 1-Step Yes Multi-Step Yes Inconsistent: No NEUROLOGICAL Light Touch: within functional limits bilateral LE Heel to raygoza: NT Tone: Normal BALANCE: Sitting: Static: Good Dynamic: Good Standing: Static: Good Dynamic: Fair+ RANGE OF MOTION: within functional limits bilateral LE, STRENGTH: 4-/5 (G-), bilateral LE ENDURANCE: NT SKIN INTEGRITY: intact PROBLEM LIST: Decline in bed mobility, Decline in gait, Decline in transfers, Decreased strength, Decreased balance, and Safety awareness deficits ASSESSMENT: Patient is a 58 year old male seen secondary to the above listed diagnosis. Patient would benefit from continued PT to address the above listed deficits to maximize independence and safety with functional mobility. Rehabilitation Potential: good Goals: The following goals are to maximize independence and safety with functional mobility to eventually return to prior living situation and prior functional status. Upon discharge, patient and/or family will demonstrate the followin. Sit to supine: Independent Supine to sit: Independent Scooting to edge of bed: Independent 2. Sit to stand: Independent using rolling Walker. Stand to sit: Independent using rolling Walker. 3. Independent with ambulation, Feet: 150 using least assistive device. Treatment Plan: Gait training, Therapeutic exercise, Transfer training, Bed mobility training, and Safety education, patient/caregiver education PATIENT EDUCATION: Patient provided with preferred teaching of verbal information on role of PT, plan of care. Shows readiness to learn. Verbal instruction teaching provided. Individual is able to read and verbalizes understanding of teaching provided. Total Time Tx Codes in Minutes: 15 min Total Treatment Time in Minutes: 20 min Jesica Murphy,PT Tx License: [id number] Required Components in Determining Evaluation Level History: No personal factors or comorbidities: No (06554) 1-2 personal factors and/or comorbidities: Yes (53965) 3 or more personal factors and/ or comorbidities: No (67004) Examination of Body System(s) Addressing 1-2 elements: Yes (98368) Addressing a total of 3 or more elements: No (76100) Addressing a total of 4 or more elements: No (30304) Clinical Presentation Stable: Yes (36626) Evolving: No (60244) Unstable: No (45211) Clinical Decision Making (Complexity) Low: No (98297) Moderate: Yes (22325) High: No (87240) Jesica Murphy PT [facility] [id number] 2023-08-15 10:01:34 Associated Order(s): CONSULT CARDIOLOGY [facility] Cardiology Consult Note Patient: Saturnino Maldonado Date of : 1965 Date of service: 08/15/2023 Primary Care Physician: Erik Louie Jr CHIEF COMPLAINT: Chief Complaint Patient presents with Nausea Hypertension HISTORY OF PRESENT ILLNESS: Saturnino Maldonado is a 58 year old male presented to the ER for evaluation for elevated blood pressure, fatigue. History from patient. Patient seen and examined in the room. Pertinent cardiac related history reviewed from chart Presented to the ED secondary to elevated blood pressure and fatigue that started hours prior to arrival. Additional symptoms: nausea, generalized weakness, intermittent abdominal pain, constipation (had to do self disimpaction 4 days ago), malaise, urinary frequency. Due to the increased urinary frequency and hesitancy, he came to the ED. Cardiology consulted due to mildly elevated troponins. No history of exertional chest pain. No chest pain at rest. No PND or orthopnea. No pedal edema. No exertional palpitations or palpitations at rest. No syncopal attacks. PMH of HTN, DM, noncompliance (could not afford medications) PAST MEDICAL HISTORY Past Medical History: Diagnosis Date HTN (hypertension) Uncontrolled diabetes mellitus with hyperglycemia History reviewed. No pertinent surgical history. Family History Problem Relation Age of Onset No Significant Medical Problems Mother [place] (myocardial infarction) Father SOCIAL HISTORY Social History Socioeconomic History Marital status: Single Tobacco Use Smoking status: Never Passive exposure: Never Smokeless tobacco: Never Substance and Sexual Activity Alcohol use: Never Drug use: Never Social Determinants of Health Financial Resource Strain: Low Risk (04/21/2023) Overall Financial Resource Strain (CARDIA) Difficulty of Paying Living Expenses: Not hard at all Food Insecurity: No Food Insecurity (04/21/2023) Hunger Vital Sign Worried About Running Out of Food in the Last Year: Never true Ran Out of Food in the Last Year: Never true Transportation Needs: No Transportation Needs (04/21/2023) PRAPARE - Transportation Lack of Transportation (Medical): No Lack of Transportation (Non-Medical): No Physical Activity: Sufficiently Active (04/21/2023) Exercise Vital Sign Days of Exercise per Week: 7 days Minutes of Exercise per Session: 30 min Social Connections: Unknown (04/21/2023) Social Connection and Isolation Panel [NHANES] Frequency of Communication with Friends and Family: More than three times a week Marital Status: Never Housing Stability: High Risk (04/21/2023) Housing Stability Vital Sign Unable to Pay for Housing in the Last Year: No Number of Places Lived in the Last Year: 1 Unstable Housing in the Last Year: Yes ALLERGIES No Known Allergies MEDICATIONS Current Discharge Medication List STOP taking these medications acarbose 25 mg tablet Comments: Reason for Stopping: blood sugar diagnostic (ACCU-CHEK GUIDE TEST STRIPS) strip Comments: Reason for Stopping: Blood-Glucose Meter (ACCU-CHEK GUIDE GLUCOSE METER) Misc Comments: Reason for Stopping: lancets 33 gauge Misc Comments: Reason for Stopping: Current Facility-Administered Medications: amLODIPine (NORVASC) tablet 10 mg, 10 mg, Oral, DAILY, Jesica Prasad MD, 10 mg at 08/15/23 0938 acetaminophen (TYLENOL) tablet 650 mg, 650 mg, Oral, Q6HPRN, Jerry Fields, dextrose 50 % in water (D50W) injection 25 mL, 25 mL, Slow IV Push, PRN, Jerry Fields DO glucagon (GLUCAGEN DIAGNOSTIC KIT) injection 1 mg, 1 mg, Intramuscular, PRN, Jerry Fields DO Sliding Scale Insulin - Lispro (HumaLOG), , Subcutaneous, TID MEALS+HS, Jerry Fields, , 4 Units at 08/15/23 0938 REVIEW OF SYSTEMS: Comprehensive 10-system review was conducted and were negative except for what's noted in the HPI. The following systems were reviewed: Constitutional, cardiovascular, respiratory, gastrointestinal, genitourinary, musculoskeletal, neurologic, psychiatric, endocrinological, and hematological. PHYSICAL EXAMINATION: Vitals: 08/14/23 2302 08/14/23 2307 08/15/23 0257 08/15/23 0713 BP: (!) 152/88 118/75 129/78 Pulse: 81 84 80 Resp: 18 16 Temp: 36.5 ?C (97.7 ?F) 36.9 ?C (98.5 ?F) 36.2 ?C (97.1 ?F) TempSrc: Temporal Artery SpO2: 99% 97% 95% Weight: 54 kg (119 lb) 54 kg (119 lb) 56 kg (123 lb 6.4 oz) Height: 1.6 m (5' 3") General: no apparent distress HEENT: normocephalic atraumatic Neck: supple, no lymphadenopathy, no bruits, no JVD Lungs: clear to auscultation bilaterally. No wheezes or rhonchi. No increased work of breathing. Cardio: Regular rate and rhythm, S1&S2 normal, no murmurs, rubs or gallops Abdomen: soft; non-tender; non-distended; normoactive bowel sounds. : not examined Rectal: not examined Extremities: no clubbing, cyanosis, or edema. Skin: no rashes, no visible lesions. Neuro: no gross focal deficits LABS - Reviewed pertinent labs as below: CBC BMP PT/INR WBC (10*3/?L) Date Value 08/15/2023 8.84 NA (mmol/L) Date Value 08/15/2023 134 (L) No results found for: "PT" PLT (10*3/?L) Date Value 08/15/2023 211 K (mmol/L) Date Value 08/15/2023 3.2 (L) INR (no units) Date Value 04/20/2023 1.0 HGB (g/dL) Date Value 08/15/2023 12.2 BUN (mg/dL) Date Value 08/15/2023 23 HCT (%) Date Value 08/15/2023 34.0 (L) CREATININE (mg/dL) Date Value 08/15/2023 0.88 LIPID PROFILE GLUCOSE (mg/dL) Date Value 08/15/2023 90 CHOL (mg/dL) Date Value 04/21/2023 112 (L) TSH LDL CHOL (mg/dL) Date Value 04/21/2023 50 TSH (mIU/L) Date Value 04/20/2023 2.56 CARDIAC ENZYMES HDL (mg/dL) Date Value 04/21/2023 49 CK (U/L) Date Value 2023 148 TRIG (mg/dL) Date Value 04/21/2023 64 LFTs No results found for: "CKMB" AST(SGOT) (U/L) Date Value 2023 26 TROPONIN I (ng/mL) Date Value 08/15/2023 0.059 (H) ALTv (U/L) Date Value 2023 16 No results found for: "BNP" LDL CHOL (mg/dL) Date Value 04/21/2023 50 Recent Labs 08/15/23 0541 TROPNI 0.059* Recent Labs 04/21/23 0310 TRIG 64 LDL CHOL (mg/dL) Date Value 04/21/2023 50 NT-proBNP (pg/mL) Date Value 2023 999 (H) ASSESSMENT/PLAN Principal Problem: Hypertension, unspecified type Active Problems: Elevated troponin I level Elevated brain natriuretic peptide (BNP) level Essential hypertension ELIEZER (acute kidney injury) Type 2 diabetes mellitus with other specified complication Elevated troponins: Likely type II MT in the setting of underlying ELIEZER/elevated blood pressure Stable troponins noted. Recommend aspirin 81 daily. Recommend telemetry monitoring. DSE 04/21/2023 images reviewed shows negative for inducible ischemia by EKG. Echocardiogram shows no inducible ischemia. Echocardiogram dated 04/21/2023 images reviewed shows preserved LV systolic function, no significant valve normalities noted. Recent Labs 08/15/23 0032 08/15/23 0541 TROPNI 0.063* 0.059* Elevated NT BNP: In the setting of uncontrolled hypertension/ELIEZER. No clinical signs of volume overload noted. Will avoid diuretics. NT-proBNP (pg/mL) Date Value 2023 999 (H) Acute renal failure: Rx as per primary team. Hypertension: Presented with elevated blood pressure. Currently blood pressure well-controlled. Continue with amlodipine 5 mg daily. Dyslipidemia: Recommended goal LDL less than 70. LDL CHOL (mg/dL) Date Value 04/21/2023 50 T2DM: Uncontrolled: Rx/workup as per primary team. Last Two A1C Results ([facility], [facility], [facility]) Recent Labs 04/20/23195408/14/23 1547 HGBA1C 12.6* 8.9* My diagnostic impression and treatment plans were discussed at length with the patient. Ample opportunity was offered and encouraged to ask questions during this visit and patient appreciated the answers given by me and verbzalised statisfcation in the answers given. Thank you for allowing us to participate in the care of Saturnino Maldonado. If you have any questions or concerns please feel free to call our office at [phone]. I would be happy to be of further assistance for Saturnino Maldonado wellbeing. Voice recognition software has been used to create portions of this document. An attempt to proofread has been made to minimize errors. Please do not hesitate to call with any questions. Benja Rivera MD Microstrategy Architect, Division of Cardiology [facility] 2023-04-21 08:46:48 Associated Order(s): CONSULT ENDOCRINOLOGY Endocrinology Consult Note Consultation requested by: Service: White team Reason for Consultation: Diabetes Date of Service: 04/21/23 HPI 57 year old male with a PMH of HTN, T2DM, Fmhx premature CAD who presented with complaints of polyuria and weakness at [facility] ER. Patient transferred to [place] for further work up. Endocrinology consulted for diabetes management Diabetes Type and year diagnosed: 2011, type 2 Diabetes complications: none Hx of DM regimen: no meds for 3 years Compliance: - BG monitoring? - Hypoglycemia hx: no Hypoglycemia unawareness? no Symptoms of hyperglycemia: polyuria Living situation and support: homeless, lives with different relatives Diabetes doctor: PCP in [place], has not seen for few years Family hx of diabetes: no HX of glucocorticoid use: no HX of transfusions or EPO in last 6 months: no PAST MEDICAL HISTORY Past Medical History: Diagnosis Date HTN (hypertension) Uncontrolled diabetes mellitus with hyperglycemia History reviewed. No pertinent surgical history. Family History Problem Relation Age of Onset No Significant Medical Problems Mother [place] (myocardial infarction) Father Social History Tobacco Use Smoking status: Never Passive exposure: Never Smokeless tobacco: Never Substance Use Topics Alcohol use: Never Drug use: Never ALLERGIES Patient has no known allergies. REVIEW OF SYSTEMS Constitutional: Negative for appetite change, fatigue and unexpected weight change. HENT: Negative for trouble swallowing. Eyes: Negative for visual disturbance. Respiratory: Negative for chest tightness and shortness of breath. Cardiovascular: Negative for CP, palpitations and leg swelling. Gastrointestinal: Negative for abd pain, constipation, diarrhea, nausea and vomiting. Genitourinary: +for difficulty urinating. Musculoskeletal: Negative. Skin: Negative for rash. Neurological: Negative for tremors and numbness. Psychiatric/Behavioral: Negative for sleep disturbance. Endocrine: + for polydipsia, polyphagia and polyuria. Negative for heat/cold intolerance. PHYSICALEXAM BP 114/75 (BP Location: Left arm, Patient Position: Supine) | Pulse 98 | Temp 36.3 ?C (97.4 ?F) | Resp 18 | Ht 1.6 m (5' 3") | Wt 58.3 kg (128 lb 9 oz) | SpO2 99% | BMI 22.77 kg/m? General: Patient in no apparent distress HEENT: no icterus Neck: no thyroid enlargement Lungs: no accessory muscle use, clear to auscultation Cardiovascular: RRR Abdomen: soft, non tender Neuro: AAOx3, no tremors, no focal deficits Psych: coperative Foot exam: Sensation in feet grossly intact, DP pulses are 2+ bilaterally, no lesions, no ulcers, skin is warm, small healed ulcers on the dorsal aspect, + onychomycosis. LABORATORY Recent Labs 04/20/231954 TSH 2.56 Recent Labs 04/20/231954 HGBA1C 12.6* BMP Recent Labs 04/20/23195404/21/23 0310 NA 129* 130* K 3.5 3.2* CA 8.5* 8.3* CL 94* 100 BUN 26* 21 CREAT 0.92 0.63 GLU 314* 226* TCO2 28 26 ALB 3.3* -- Lab Results Component Value Date/Time GLU 226 (H) 04/21/2023 03:10 AM GLU 314 (H) 04/20/2023 07:55 PM POC GLU 243 (H) 04/21/2023 03:39 AM POC GLU 408 (H) 04/20/2023 07:54 PM HOSPITAL MEDICATIONS Scheduled meds:aspirin, 81 mg, DAILY atorvastatin, 80 mg, QHS insulin glargine, 0.15 Units/kg/day, QHS insulin lispro (human), 0.15 Units/kg/day, TIDAC magnesium sulfate in water, 2 g, ONCE potassium chloride in water, 10 mEq, Q1H insulin lispro (human), , TID MEALS+HS tamsulosin, 0.4 mg, DAILY IV meds:heparin 25,000 Units/250 mL IV infusion for ACS, Last Rate: 800 Units/hr (04/21/23 0350) PRN meds:dextrose 50 % in water (D50W), 25 mL, PRN dextrose 50 % in water (D50W), 25 mL, PRN glucagon, 1 mg, PRN glucagon, 1 mg, PRN acetaminophen, 650 mg, Q6HPRN heparin 1000 unit/mL, 3,000 Units, FOR REBOLUSING heparin 25,000 Units/250 mL IV infusion for ACS, 700 Units/hr, TITRATE ASSESSMENT and PLAN Problem List: DM type 2, A1c 12.6, not on insulin at home Stress hyperglycemia NSTEMI HTN Urinary retention Comments: 57 year old male with a PMH of HTN, T2DM, Fmhx premature CAD who presented with complaints of polyuria and weakness at [facility] ER. Patient transferred to [place] for further work up. Endocrinology consulted for diabetes management BG & Insulin Data: BG trend: 226 - 418 mg/dL TDD of insulin: 4,5 units Scheduled Insulin: 18 units Diet: Npo for Cath Will start with 0.3 u/kg/day since he is insulin naive, 17 units New TDD: 17 units 60% basal and 40% bolus Will do 20% increase when changing to NPH since he does not have insurance RECOMMENDATIONS: NPH 8 units in Am and 4 units in PM - Give half dose if patient NPO or if BG 80 - 120 mg/dL. - Hold dose if BG <80 mg/dL. Lispro 2 units TID meals, to be changed to regular insulin at discharge - Give half dose if patient eats less than half meal OR if BG 80 - 120 mg/dL. - HOLD DOSE if NPO or BG < 80 mg/dL. Please give at end of meal if not sure if patient will eat. Sliding scale, SSI 1:50 - Give lispro sliding scale Qtid meals Hs; may give even if NPO. Blood sugar 170 to 220, give 1 unit. Blood sugar 221 to 270, give 2 units. Blood sugar 271 to 300, give 3 units. Blood sugar greater than 300, give 4 units, recheck in 3 hours and cover again with sliding scale. Discharge planning: Currently patient is not safe to be discharged, until the below is done -Talked to RN, he will start educating insulin administration -Since he is self pay, need NPH and Regular insulin to Dash ([employer] brand) -Need insulin vials, syringe needles, glucometer, test strips, lancets -Need meds to bed before discharge -Please contact Endocrine before discharge - Case discussed with Dr. Cabrera.. Austin Amaro. Endocrinology Fellow, PGY 5 GN ENGINEERING MANAGER Associated attestation - Rita Cabrera MD - 04/22/2023 2:11 PM DESIGN ENGINEERING MANAGER Endocrinology Faculty Attestation: I evaluated this patient's progress on 04/21/[address] Amaro note as written and revised. I actively participated in the decision-making process. Please see the resident's note for additional details that includes pertinent addendums I made directly in the note during revision. Rita Cabrera MD Microstrategy Architect Division of Endocrinology IM-ENDOCRINOLOGY,DIABET ES & METABOLISM [facility] - Health History and Physical Notes Date/Time Note Provider Source 2023-08-21 22:53:53 [facility] Hospitalist Admission H&P Date of Service: 08/21/2023 CHIEF COMPLAINT: Postobstructive renal failure HISTORY OF PRESENT ILLNESS Saturnino Maldonado is a 58 year old male [...] consulted. Patient was given the application for [employer] on last admission and will need to get this filled so he can see urology. Continue with Flomax at this time. PAST MEDICAL HISTORY Past Medical History: Diagnosis Date HTN (hypertension) Uncontrolled diabetes mellitus with hyperglycemia Bladder retention PAST SURGICAL HISTORY Circumcision in 2013 ALLERGIES No Known Allergies MEDICATIONS Current home medication list reviewed: Patient's Medications START taking these medications No medications on file CONTINUE taking these medications which have NOT CHANGED ACARBOSE 25 MG TABLET Take 1 tablet by mouth in the morning and 1 tablet at noon and 1 tablet in the evening. Take with meals. Do all this for 30 days. AMLODIPINE 5 MG TABLET Take 1 tablet by mouth in the morning for 30 days. BLOOD SUGAR DIAGNOSTIC (ACCU-CHEK GUIDE TEST STRIPS) STRIP Use as directed BLOOD-GLUCOSE METER (ACCU-CHEK GUIDE GLUCOSE METER) MISC Use as directed LANCETS 33 GAUGE MISC Use as directed LOSARTAN 25 MG TABLET Take 1 tablet by mouth in the morning for 30 days. METFORMIN 500 MG 24 HR TABLET Take 1 tablet by mouth in the morning and 1 tablet in the evening. Take with meals. Do all this for 30 days. PIOGLITAZONE 15 MG TABLET Take 1 tablet by mouth in the morning for 30 days. TAMSULOSIN 0.4 MG 24 HR CAPSULE Take 1 capsule by mouth in the morning for 30 days. START taking Modified Medications as Prescribed No medications on file STOP taking these medications No medications on file FAMILY HISTORY Family History Problem Relation Age of Onset No Significant Medical Problems Mother [place] (myocardial infarction) Father SOCIAL HISTORY Social History Socioeconomic History Marital status: Single Tobacco Use Smoking status: Never Passive exposure: Never Smokeless tobacco: Never Substance and Sexual Activity Alcohol use: Never Drug use: Never Social Determinants of Health Financial Resource Strain: Low Risk (08/16/2023) Overall Financial Resource Strain (CARDIA) Difficulty of Paying Living Expenses: Not very hard Food Insecurity: No Food Insecurity (08/16/2023) Hunger Vital Sign Worried About Running Out of Food in the Last Year: Never true Ran Out of Food in the Last Year: Never true Transportation Needs: No Transportation Needs (08/16/2023) PRAPARE - Transportation Lack of Transportation (Medical): No Lack of Transportation (Non-Medical): No Physical Activity: Sufficiently Active (08/16/2023) Exercise Vital Sign Days of Exercise per Week: 6 days Minutes of Exercise per Session: 30 min Social Connections: Unknown (08/16/2023) Social Connection and Isolation Panel [NHANES] Frequency of Communication with Friends and Family: More than three times a week Marital Status: Never Housing Stability: Low Risk (08/16/2023) Housing Stability Vital Sign Unable to Pay for Housing in the Last Year: No Number of Places Lived in the Last Year: 1 Unstable Housing in the Last Year: No REVIEW OF SYSTEMS 10 systems negative except per HPI PHYSICAL EXAMINATION BP (!) 176/98 | Pulse 104 | Temp 36.7 ?C (98 ?F) (Oral) | Resp 17 | Ht 1.6 m (5' 3") | Wt 54 kg (119 lb) | SpO2 99% | BMI 21.08 kg/m? General: No acute distress HEENT: Normal oral mucosa, anicteric sclerae, NCAT Cardiovascular: RRR Lungs: Symmetric expansion, clear bilaterally Abdomen: Soft, slightly distended and nontender. Musculoskeletal: No synovitis, normal muscle mass Genitourinary: Normal Skin: No rash, no skin lesions Extremities: No clubbing, no cyanosis, no lower extremity edema Neuro: AAOx3, no focal deficits Psych: Normal affect LABS - reviewed pertinent labs as below: CBC BMP PT/INR WBC (10*3/?L) Date Value 08/21/2023 14.75 (H) NA (mmol/L) Date Value 08/21/2023 120 (L) No results found for: "PT" RBC (10*6/?L) Date Value 08/21/2023 4.10 (L) K (mmol/L) Date Value 08/21/2023 4.8 INR (no units) Date Value 04/20/2023 1.0 PLT (10*3/?L) Date Value 08/21/2023 312 CALCIUM (mg/dL) Date Value 08/21/2023 8.8 HGB (g/dL) Date Value 08/21/2023 12.6 CL (mmol/L) Date Value 08/21/2023 85 (L) aPTT HCT (%) Date Value 08/21/2023 35.3 (L) BUN (mg/dL) Date Value 08/21/2023 70 (H) APTT Patient (Seconds) Date Value 04/21/2023 66 (H) CREATININE (mg/dL) Date Value 08/21/2023 8.39 (H) IMAGING - reviewed, pertinent results as below: Hospital Encounter on 08/21/23 CT ABDOMEN PELVIS WO CONTRAST Narrative Exam: CT Abdomen and Pelvis without Contrast, 08/21/2023 8:00 PM. Ordering Physician: COSME CARDONA. History: Bowel obstruction suspected Stone suspected. Comparison: CT abdomen pelvis 2023. Technique: CT abdomen and pelvis was obtained without intravenous contrast. CT was performed according to ALARA (As Low As Reasonably Achievable). Technical Quality: Adequate. Findings: Lack of intravenous contrast limits evaluation of the abdomen and pelvis. LOWER CHEST: Mild bibasilar atelectasis. ABDOMEN/PELVIS: Liver: Normal. Gallbladder/biliary: Normal gallbladder. No biliary ductal dilation. Pancreas: Normal. Spleen: Normal. Adrenal glands: Normal. Kidneys and ureters: Persistent moderate bilateral hydroureteronephrosis with significant perinephric stranding. Bilateral hypodensities which are seen to a better degree on prior reflect renal cyst. No obstructive stone. Bladder: Markedly distended urinary bladder without stones or wall thickening. Reproductive organs: Prostatomegaly. Partially imaged scrotal edema. Stomach/bowel: No bowel obstruction. No bowel wall thickening. Normal appendix. Lymph nodes: No lymphadenopathy. Peritoneum: No intraperitoneal free air. No intraperitoneal free fluid. Vessels: Atherosclerosis without aneurysm. MUSCULOSKELETAL: Bones: No acute osseous finding. Subacute/chronic left-sided rib fractures. Soft tissues: Unremarkable. Impression Impression: 1. Markedly distended urinary bladder with moderate bilateral hydroureteronephrosis suggestive of bladder outlet obstruction. Overall, no significant change from prior CT. 2. No obstructive stone. 3. No bowel obstruction. RL: [id number] End of Report SSMENT: 1. Obstructive uropathy 2. Acute renal insufficiency 3. Hyponatremia 4. UTI 5. Elevated lipase 6. Recent admission with elevated troponin with renal insufficiency PLAN: 1. Obstructive uropathy with acute renal insufficiency; patient [...] normal limits. Nephrology has been consulted as well. 2. UTI; continue with IV antibiotics 3. Elevated lipase level; continue to monitor 4. During last admission a week ago patient had elevated troponin; echo from 2022 was reviewed. Cardiology has also seen the patient. No aggressive measures at this time. DVT prophylaxis: enoxaparin Stress ulcer prophylaxis: pantoprazole Code status: FULL Advanced Care Planning (Z71.89) Above assessment and plan discussed at length with patient, patient expressed full understanding. Questions and concerned addressed. Surrogate decision maker: NO Level of care expected after discharge: HOME Time spent: 3 minutes discussing the advanced care plan Smoking Cessation: (Z71.6) Tobacco user?: NO Patient will require observation [place] NIGHTCLUB MANAGER was verified during stay Lyubov Banda MD [facility] 2023 22:58:21 [facility] ADMIT H&P Date of Service: 2023 CHIEF COMPLAINT: elevated blood pressure, fatigue Subjective History of Present Illness 58 yo male with pmh of HTN, DM, noncompliance (could not afford medications) who presents to the ED secondary to elevated blood pressure and fatigue that started hours prior to arrival. Additional symptoms: nausea, generalized weakness, intermittent abdominal pain, constipation (had to do self disimpaction 4 days ago), malaise, urinary frequency. Due to the increased urinary frequency and hesitancy, he came to the ED. PAST MEDICAL HISTORY Past Medical History: Diagnosis Date HTN (hypertension) Uncontrolled diabetes mellitus with hyperglycemia Past Surgical History 2003 Right Humerus Repair Left eye surgery Family History Problem Relation Age of Onset No Significant Medical Problems Mother MT (myocardial infarction) Father ALLERGIES No Known Allergies MEDICATIONS No current facility-administered medications on file prior to encounter. Current Outpatient Medications on File Prior to Encounter Medication Sig Dispense Refill acarbose 25 mg tablet Take 1 tablet by mouth in the morning and 1 tablet at noon and 1 tablet in the evening. Take with meals. 90 tablet 0 blood sugar diagnostic (ACCU-CHEK GUIDE TEST STRIPS) strip Use as directed 100 Each 0 Blood-Glucose Meter (ACCU-CHEK GUIDE GLUCOSE METER) Misc Use as directed 1 Each 0 lancets 33 gauge Misc Use as directed 100 Each 0 I attest that the foregoing medication list in the medical record is true, accurate and complete to the best of my knowledge. SOCIAL HISTORY Social History Socioeconomic History Marital status: Single Tobacco Use Smoking status: Never Passive exposure: Never Smokeless tobacco: Never Substance and Sexual Activity Alcohol use: Never Drug use: Never Social Determinants of Health Financial Resource Strain: Low Risk (04/21/2023) Overall Financial Resource Strain (CARDIA) Difficulty of Paying Living Expenses: Not hard at all Food Insecurity: No Food Insecurity (04/21/2023) Hunger Vital Sign Worried About Running Out of Food in the Last Year: Never true Ran Out of Food in the Last Year: Never true Transportation Needs: No Transportation Needs (04/21/2023) PRAPARE - Transportation Lack of Transportation (Medical): No Lack of Transportation (Non-Medical): No Physical Activity: Sufficiently Active (04/21/2023) Exercise Vital Sign Days of Exercise per Week: 7 days Minutes of Exercise per Session: 30 min Social Connections: Unknown (04/21/2023) Social Connection and Isolation Panel [NHANES] Frequency of Communication with Friends and Family: More than three times a week Marital Status: Never Housing Stability: High Risk (04/21/2023) Housing Stability Vital Sign Unable to Pay for Housing in the Last Year: No Number of Places Lived in the Last Year: 1 Unstable Housing in the Last Year: Yes REVIEW OF SYSTEMS Review of Systems Constitutional: Positive for fatigue. Negative for activity change, appetite change, chills, diaphoresis, fever and unexpected weight change. HENT: Negative. Eyes: Negative. Respiratory: Negative. Breasts: Negative. Cardiovascular: Negative. Gastrointestinal: Positive for abdominal pain and nausea. Negative for abdominal distention, anal bleeding, blood in stool, constipation, diarrhea, rectal pain and vomiting. Genitourinary: Positive for urgency and frequency (increased). Negative for bladder incontinence, dysuria, hematuria, flank pain, discharge, penile swelling, scrotal swelling, enuresis, difficulty urinating, genital sores, penile pain, testicular pain and nocturia. Musculoskeletal: Negative. Skin: Negative. Neurological: Positive for weakness. Negative for dizziness, tremors, seizures, syncope, facial asymmetry, speech difficulty, light-headedness, numbness and headaches. Psychiatric/Behavioral: Negative. Endocrine: Endocrine negative Objective PHYSICAL EXAMINATION Vitals: 08/14/23 1800 08/14/23 2200 08/14/23 2302 08/14/23 2307 BP: (!) 173/109 133/87 (!) 152/88 Pulse: 107 80 81 Resp: 12 21 18 Temp: 36.5 ?C (97.7 ?F) TempSrc: SpO2: 100% 98% 99% Weight: 54 kg (119 lb) 54 kg (119 lb) Height: 1.6 m (5' 3") Physical Exam Vitals and nursing note reviewed. Constitutional: General: He is not in acute distress. Appearance: Normal appearance. He is not ill-appearing, toxic-appearing or diaphoretic. HENT: Head: Normocephalic and atraumatic. Right Ear: External ear normal. Left Ear: External ear normal. Nose: Nose normal. No congestion. Mouth/Throat: Mouth: Mucous membranes are moist. Pharynx: No oropharyngeal exudate or posterior oropharyngeal erythema. Eyes: General: No scleral icterus. Extraocular Movements: Extraocular movements intact. Conjunctiva/sclera: Conjunctivae normal. Pupils: Pupils are equal, round, and reactive to light. Cardiovascular: Rate and Rhythm: Normal rate and regular rhythm. Heart sounds: No murmur heard. No friction rub. No gallop. Pulmonary: Effort: Pulmonary effort is normal. No respiratory distress. Breath sounds: Normal breath sounds. No wheezing or rales. Chest: Chest wall: No tenderness. Abdominal: General: Abdomen is flat. Bowel sounds are normal. There is no distension. Palpations: Abdomen is soft. Tenderness: There is no abdominal tenderness. There is no guarding. Musculoskeletal: General: Normal range of motion. Cervical back: Normal range of motion and neck supple. Right lower leg: No edema. Left lower leg: No edema. Skin: General: Skin is warm and dry. Neurological: Mental Status: He is alert. Psychiatric: Mood and Affect: Mood normal. Behavior: Behavior normal. Thought Content: Thought content normal. Judgment: Judgment normal. LABS/IMAGING - reviewed FULL RESULT: Examination: CT TRAUMA HEAD WO CONTRAST on 2023 4:16 PM Clinical Indication: Headache, hypertensive Comparison: None Technique: Noncontrast imaging was obtained from base to vertex. Findings: The sulci and ventricles were unremarkable. There may be subtle white matter microvascular ischemic changes, notably in the anterior periventricular region, but there is no evidence for hemorrhage or other clearly acute intracranial process. IMPRESSION No acute intracranial lesion. --- EXAM: CT ABDOMEN AND PELVIS WITH CONTRAST HISTORY: Abdominal abscess/infection suspected COMPARISON: None. TECHNIQUE: Contiguous axial imaging was performed following administration of intravenous contrast. Coronal and sagittal reconstructions were obtained. FINDINGS: Visualized lung bases are clear. Coronary artery calcification is noted. Hypodensity adjacent to the falciform ligament may be focal fatty infiltration. Subcentimeter hypodensity in the left hepatic lobe is too small to characterize. The gallbladder, spleen, pancreas and adrenal glands are normal. There is a 3.5 cm cyst at the lower pole of the left kidney and a 1.5 cm cyst at the lower pole the right kidney. There is bilateral perinephric and periureteral stranding. There is moderate hydroureteronephrosis. The prostate gland is not significantly enlarged. The bladder is prominently distended extending above the umbilicus. The aorta and iliac arteries are normal in caliber. Atherosclerotic change is present within the internal iliac arteries. Minimal atherosclerosis of the aorta and its branches. There is moderate fecal material in the colon. There is no bowel wall thickening or obstruction. Scattered diverticula in the colon The appendix is normal. There is trace free fluid/edema in the abdomen and pelvis. No free air or drainable fluid collection. No lymphadenopathy. Degenerative change involving the spine, sacroiliac joints and hips is present. IMPRESSION Findings suggest bladder outlet obstruction/urinary retention with moderate hydroureteronephrosis with perinephric and periureteral stranding, prostatomegaly, and prominently distended bladder extending above the umbilicus. Assessment & Plan Saturnino Maldonado is a 58 year old male with PMH as listed above, admitted to the hospital with: Hypertensive urgency: -- Will continue with amlodipine Acute renal failure: post-obstructive cause -- s/p jensen Urinary obstruction: s/p jensen. Noted to have an enlarged prostate -- PSA is pending NSTEMI -- Will continue to trend troponin level Hypokalemia: -- Will replace potassium supplement Prophylaxis: DVT- Contraindicated: Cranial/GI Bleeding or other Hemorrhage present Code Status: Presumed Full Code T [facility] EMERGENCY PHYSICIAN STAFF [facility] 2023-04-21 00:39:12 [facility] Admit H&P PCP: Erik Louie Jr Date of Service: 04/20/2023 CHIEF COMPLAINT: Polyuria HISTORY OF PRESENT ILLNESS Saturnino Maldonado is a 57 year old male with a PMH of HTN, T2DM, Fmhx premature CAD who presented with complaints of polyuria and weakness at [facility] ER. Patient transferred to [place] for further work up. Patient reports that his uncle told him to [...] or drug use. Family history significant for MT in father in his 40s. Currently not taking any medications. In the ED, he was tachycardiac, labs significant for troponin 0.154, WBC 11.74, Glucose 408. EKG wit sinus tach without TWI or REINALDO. Past medical history: has a past medical history of HTN (hypertension) and Uncontrolled diabetes mellitus with hyperglycemia. Past surgical history: has no past surgical history on file. Social history: reports that he does not have a smoking history on file. He has never used smokeless tobacco. He reports that he does not drink alcohol and does not use drugs. Family history: family history includes MT (myocardial infarction) in his father; No Significant Medical Problems in his mother. Allergies: No Known Allergies MEDICATIONS No current facility-administered medications on file prior to encounter. No current outpatient medications on file prior to encounter. REVIEW OF SYSTEMS See HPI PHYSICAL EXAMINATION Vitals: 04/20/23 2030 04/20/23 2100 04/20/23 2130 04/20/23 2328 BP: 139/90 107/89 115/79 116/80 BP Location: Left arm Patient Position: Supine Pulse: 107 111 117 99 Resp: 18 14 15 18 Temp: 36.9 ?C (98.4 ?F) 36.7 ?C (98 ?F) TempSrc: Temporal Artery SpO2: 98% 97% 98% 98% Weight: 58.3 kg (128 lb 9 oz) Height: 1.6 m (5' 3") General: alert and oriented, no apparent distress, tangential on exam, suspect intellectual disability HEENT: white sclera, eye movements grossly intact, hearing is normal Neck: supple, no masses Lungs: clear to auscultation in all sutton bilaterally, unlabored breathing Cardio: tachycardiac, no murmurs or rubs, no carotid bruit Abdomen: soft, non-tender, no masses palpated, positive bowel sounds Extremities: no clubbing, cyanosis, or edema Skin: no rashes or lesions, good turgor Neuro: grossly intact LABS - reviewed IMAGING - reviewed, pertinent results as below: No results found for this visit on 04/20/23. EKG: see media CHART REVIEWED: Limited history No previous cardiac workup ASSESSMENT/PLAN Saturnino Maldonado is a 57 year old male with PMH as listed above, admitted to the hospital with: NSTEMI (type I vs II) HTN Fmhx premature CAD Patient with cardiac risk factor (HTN, uncontrolled T2DM, Fmhx of premature CAD) presenting with polyuria incidentally found to have elevated troponin. EKG without REINALDO or TWI. Currently chest pain free. Patient started on heparin, received ASA and Plavix load. Patient will need CM to help with resources. Plan: - Admit to [facility] - Trend Troponin to peak - Heparin gtt - Asa 81 mg po daily - start Lipitor 80 mg po QHS - CXR - TTE, primary team to consider additional cardiac studies - Consider EP consult for ICD placement if HFrEF - Cardiac diet, EKG qAM and PRN chest pain, Telemetry, O2 per protocol, Electrolytes: Keep K >4, Mg>2 - Admit labs: Phos, A1c, NT-proBNP, Iron panel/ Ferritin, fasting Lipid panel in AM - NPO past midnight for possible procedure Uncontrolled T2DM with hyperglycemia Polyuria with urinary retention ?BPH Patient haven't seen physician in 3 years and [...] with weak stream and inability to completely void. - Weight base Basal, bolus insulin with SSI - Endo consult for diabetic education - Repeat PVR in am, if >300, plan for jensen placement, if failed, consult urology help for coude placement. - Start Flomax Pain ControlledTylenol Prophylaxis: DVT- heparin Stress Ulcer: no indication for prophylaxis Code Status: addressed: Full Code Kylie Fuchs DO Internal Medicine Department PGY 2, [place] Team GN ENGINEERING MANAGER Associated attestation - Bret Banda MD - 04/21/2023 2:47 PM DESIGN ENGINEERING MANAGER I reviewed patient's chart, vitals, lab work, current medications and other diagnostic studies. I saw and examined the patient today and agree with the detailed note. I actively participated in the decision-making process. Bret Banda MD Microstrategy Architect Division of Cardiology [facility] Notes Date/Time Note Provider Source 2023-08-24 16:07:54 Problem: Pain Goal: Control of pain at or below patient's documented comfort goal 08/24/2023 1607 by Kalina Georges RN Outcome: Resolved 08/24/2023 1313 by Kalina Georges RN Outcome: Adequate for discharge Goal: Reduction in pain sensation 08/24/2023 1607 by Kalina Georges RN Outcome: Resolved 08/24/2023 1313 by Kalina Georges RN Outcome: Adequate for discharge Problem: Activity Intolerance Goal: Improved activity tolerance 08/24/2023 1607 by Kalina Georges RN Outcome: Resolved 08/24/2023 1313 by Kalina Georges RN Outcome: Adequate for discharge Problem: Discharge Planning Goal: Adequate for discharge 08/24/2023 1607 by Kalina Georges RN Outcome: Resolved 08/24/2023 1313 by Kalina Georges RN Outcome: Adequate for discharge Goal: Effective communication 08/24/2023 1607 by Kalina Georges RN Outcome: Resolved 08/24/2023 1313 by Kalina Georges RN Outcome: Adequate for discharge Problem: Glucose Control - Initiated in Adult CC Goal: Glucose level within specified parameters 08/24/2023 1607 by Kalina Georges RN Outcome: Resolved 08/24/2023 1313 by Kalina Georges RN Outcome: Adequate for discharge Problem: Nutrition Deficit Goal: Adequate nutritional intake 08/24/2023 1607 by Kalina Georges RN Outcome: Resolved 08/24/2023 1313 by Kalina Georges RN Outcome: Adequate for discharge Problem: Venous Thromboembolism, (actual or risk of) Goal: Absence of venous thromboembolism (Risk) 08/24/2023 1607 by Kalina Georges RN Outcome: Resolved 08/24/2023 1313 by Kalina Georges RN Outcome: Adequate for discharge Problem: Falls, Risk of Goal: Absence of falls 08/24/2023 1607 by Kalina Georges RN Outcome: Resolved 08/24/2023 1313 by Kalina Georges RN Outcome: Adequate for discharge Kalina Georges RN [facility] 2023-08-24 13:14:04 Problem: Pain Goal: Control of pain at or below patient's documented comfort goal Outcome: Adequate for discharge Goal: Reduction in pain sensation Outcome: Adequate for discharge Problem: Activity Intolerance Goal: Improved activity tolerance Outcome: Adequate for discharge Problem: Discharge Planning Goal: Adequate for discharge Outcome: Adequate for discharge Goal: Effective communication Outcome: Adequate for discharge Problem: Fluid Volume - Imbalanced Goal: Absence of signs and symptoms of imbalanced fluid volume Outcome: Adequate for discharge Problem: Glucose Control - Initiated in Adult CC Goal: Glucose level within specified parameters Outcome: Adequate for discharge Problem: Nutrition Deficit Goal: Adequate nutritional intake Outcome: Adequate for discharge Problem: Venous Thromboembolism, (actual or risk of) Goal: Absence of venous thromboembolism (Risk) Outcome: Adequate for discharge Problem: Falls, Risk of Goal: Absence of falls Outcome: Adequate for discharge [facility] 2023-08-23 07:12:12 Problem: Pain Goal: Control of pain at or below patient's documented comfort goal Outcome: Progressing as expected Goal: Reduction in pain sensation Outcome: Progressing as expected Problem: Activity Intolerance Goal: Improved activity tolerance Outcome: Progressing as expected Problem: Discharge Planning Goal: Adequate for discharge Outcome: Progressing as expected Goal: Effective communication Outcome: Progressing as expected Problem: Fluid Volume - Imbalanced Goal: Absence of signs and symptoms of imbalanced fluid volume Outcome: Progressing as expected Problem: Glucose Control - Initiated in Adult CC Goal: Glucose level within specified parameters Outcome: Progressing as expected Problem: Nutrition Deficit Goal: Adequate nutritional intake Outcome: Progressing as expected Problem: Venous Thromboembolism, (actual or risk of) Goal: Absence of venous thromboembolism (Risk) Outcome: Progressing as expected Problem: Falls, Risk of Goal: Absence of falls Outcome: Progressing as expected Abi Lowery RN [facility] 2023-08-22 22:07:54 Problem: Pain Goal: Control of pain at or below patient's documented comfort goal Outcome: Progressing as expected Goal: Reduction in pain sensation Outcome: Progressing as expected Problem: Activity Intolerance Goal: Improved activity tolerance Outcome: Progressing as expected Problem: Discharge Planning Goal: Adequate for discharge Outcome: Progressing as expected Goal: Effective communication Outcome: Progressing as expected Problem: Fluid Volume - Imbalanced Goal: Absence of signs and symptoms of imbalanced fluid volume Outcome: Progressing as expected Problem: Glucose Control - Initiated in Adult CC Goal: Glucose level within specified parameters Outcome: Progressing as expected Problem: Nutrition Deficit Goal: Adequate nutritional intake Outcome: Progressing as expected Problem: Venous Thromboembolism, (actual or risk of) Goal: Absence of venous thromboembolism (Risk) Outcome: Progressing as expected Problem: Falls, Risk of Goal: Absence of falls Outcome: Progressing as expected Tammy Sweeney RN [facility] 2023-08-22 08:41:53 Problem: Pain Goal: Control of pain at or below patient's documented comfort goal Outcome: Progressing as expected Goal: Reduction in pain sensation Outcome: Progressing as expected Problem: Activity Intolerance Goal: Improved activity tolerance Outcome: Progressing as expected Problem: Discharge Planning Goal: Adequate for discharge Outcome: Progressing as expected Goal: Effective communication Outcome: Progressing as expected Problem: Fluid Volume - Imbalanced Goal: Absence of signs and symptoms of imbalanced fluid volume Outcome: Progressing as expected Problem: Glucose Control - Initiated in Adult CC Goal: Glucose level within specified parameters Outcome: Progressing as expected Problem: Nutrition Deficit Goal: Adequate nutritional intake Outcome: Progressing as expected Mihaela Lopez RN [facility] 2023-08-22 03:26:01 Problem: Pain Goal: Control of pain at or below patient's documented comfort goal Outcome: Progressing as expected Goal: Reduction in pain sensation Outcome: Progressing as expected Problem: Activity Intolerance Goal: Improved activity tolerance Outcome: Progressing as expected Problem: Discharge Planning Goal: Adequate for discharge Outcome: Progressing as expected Goal: Effective communication Outcome: Progressing as expected Problem: Fluid Volume - Imbalanced Goal: Absence of signs and symptoms of imbalanced fluid volume Outcome: Progressing as expected Problem: Glucose Control - Initiated in Adult CC Goal: Glucose level within specified parameters Outcome: Progressing as expected Problem: Nutrition Deficit Goal: Adequate nutritional intake Outcome: Progressing as expected Angeline Claudio RN [facility] 2023-08-21 23:32:26 Patient admitted to [facility] 2101 for diagnosis of ELIEZER, urinary obstruction Patient agrees to admission, discussed plan of care with patient and family. Patient is awake, alert, oriented, resp reg unlabored, color appropriate for race, PIV intact No adverse reaction to medications administered while in ED Belongings with patient to unit Report to Xu VILLAGRAN Chela Reyes RN [facility] 2023-08-21 19:43:36 Pt C/O RLQ pain that started yesterday, pt states last BM 08/16/2023. Pt denies any urinary, nausea or vomiting Sydney Duff RN [facility] 2023-08-21 19:39:00 [facility] Emergency Department Note Patient Name: Saturnino Maldonado Date of : 1965 58 year old male Treatment Room: IL7/IL7 Primary Care Physician: Erik Louie Jr Patient Escorted by: Self [9] Mode of Arrival: EMS - [place] [[id number]] EMS Treatment Prior to ED Arrival: [employer] treatment: None Travel and Exposure Screening: Symptoms Does patient have any of these symptoms?: (not recorded) Exposure Screening Has patient had contact with someone with a communicable disease in the last month?: (not recorded) Diseases exposed to:: (not recorded) Is Patient ?: (not recorded) Exposure Date: (not recorded) Chief Complaint: Chief Complaint Patient presents with Abdominal Pain History of Present Illness: 58-year-old male presenting for evaluation of abdominal pain. [...] to not being able to get a [employer] identification card over the last 4 years. He states this is secondary to not having the appropriate information every time he goes down there. Past Medical History/Immunizations: Past Medical History: Diagnosis Date HTN (hypertension) Uncontrolled diabetes mellitus with hyperglycemia Tetanus received in last 5 years: Unknown Allergies: No Known Allergies Past Social History: Tobacco Use Never smoked or used smokeless tobacco. Passive Exposure: Never Alcohol Use Never. Drug Use Never. Past Surgical History: No past surgical history on file. Review of Systems: Review of Systems Constitutional: Negative for activity change, appetite change, chills, diaphoresis and fever. HENT: Negative for sore throat and voice change. Eyes: Negative for pain and visual disturbance. Respiratory: Negative for cough, chest tightness and shortness of breath. Cardiovascular: Negative for chest pain and leg swelling. Gastrointestinal: Positive for abdominal pain. Negative for blood in stool, constipation and diarrhea. Genitourinary: Positive for difficulty urinating. Negative for dysuria and urgency. Musculoskeletal: Negative for back pain. Skin: Negative for color change, rash and wound. Neurological: Negative for dizziness and headaches. Hematological: Does not bruise/bleed easily. Physical Exam: ED Triage Vitals [04/27/24 1945] Weight 54 kg (119 lb) Actual or estimated Height 1.6 m (5' 3") BP (!) 167/99 Pulse 94 Resp 18 Temp 36.7 ?C (98 ?F) Temp source Oral SpO2 100 % Measured on Room air Physical Exam Vitals and nursing note reviewed. Constitutional: Appearance: He is well-developed. HENT: Head: Normocephalic and atraumatic. Eyes: General: No scleral icterus. Conjunctiva/sclera: Conjunctivae normal. Pupils: Pupils are equal, round, and reactive to light. Neck: Vascular: No JVD. Cardiovascular: Rate and Rhythm: Normal rate and regular rhythm. Heart sounds: Normal heart sounds. Pulmonary: Effort: Pulmonary effort is normal. Breath sounds: Normal breath sounds. No stridor. Abdominal: General: Bowel sounds are normal. Palpations: Abdomen is soft. Musculoskeletal: General: Normal range of motion. Cervical back: Normal range of motion and neck supple. Skin: General: Skin is warm and dry. Neurological: Mental Status: He is alert and oriented to person, place, and time. Psychiatric: Behavior: Behavior normal. Thought Content: Thought content normal. Radiology: CT ABDOMEN PELVIS WO CONTRAST Final Result Exam: CT Abdomen and Pelvis without Contrast, 08/21/2023 8:00 PM. Ordering Physician: COSME CARDONA. History: Bowel obstruction suspected Stone suspected. Comparison: CT abdomen pelvis 2023. Technique: CT abdomen and pelvis was obtained without intravenous contrast. CT was performed according to ALARA (As Low As Reasonably Achievable). Technical Quality: Adequate. Findings: Lack of intravenous contrast limits evaluation of the abdomen and pelvis. LOWER CHEST: Mild bibasilar atelectasis. ABDOMEN/PELVIS: Liver: Normal. Gallbladder/biliary: Normal gallbladder. No biliary ductal dilation. Pancreas: Normal. Spleen: Normal. Adrenal glands: Normal. Kidneys and ureters: Persistent moderate bilateral hydroureteronephrosis with significant perinephric stranding. Bilateral hypodensities which are seen to a better degree on prior reflect renal cyst. No obstructive stone. Bladder: Markedly distended urinary bladder without stones or wall thickening. Reproductive organs: Prostatomegaly. Partially imaged scrotal edema. Stomach/bowel: No bowel obstruction. No bowel wall thickening. Normal appendix. Lymph nodes: No lymphadenopathy. Peritoneum: No intraperitoneal free air. No intraperitoneal free fluid. Vessels: Atherosclerosis without aneurysm. MUSCULOSKELETAL: Bones: No acute osseous finding. Subacute/chronic left-sided rib fractures. Soft tissues: Unremarkable. IMPRESSION Impression: 1. Markedly distended urinary bladder with moderate bilateral hydroureteronephrosis suggestive of bladder outlet obstruction. Overall, no significant change from prior CT. 2. No obstructive stone. 3. No bowel obstruction. RL: [id number] End of Report Lab Results: Lab Results CBC WITH DIFF - Abnormal Result Value Ref Range WBC 14.75 (*) 4.20 - 10.70 10*3/?L RBC 4.10 (*) 4.26 - 5.52 10*6/?L HGB 12.6 12.2 - 16.4 g/dL HCT 35.3 (*) 38.4 - 49.3 % MCV 86.1 81.7 - 95.6 fL MCH 30.7 26.1 - 32.7 pg MCHC 35.7 (*) 31.2 - 35.0 g/dL RDW-SD 36.0 (*) 38.5 - 51.6 fL RDW-CV 11.5 (*) 12.1 - 15.4 % PLT 312 150 - 328 10*3/?L MPV 9.4 (*) 9.8 - 13.0 fL NRBC/100 WBC 0.0 0.0 - 10.0 /100 WBCs NRBC x10 3 <0.01 10*3/?L GRAN MAT (NEUT) % 82.7 % IMM GRAN % 0.50 % LYMPH % 6.7 % MONO % 9.8 % EOS % 0.2 % BASO % 0.1 % GRAN MAT x10 3 (ANC) 12.19 (*) 1.99 - 6.95 10*3/uL IMM GRAN x10 3 0.08 (*) 0.00 - 0.06 10*3/uL LYMPH x10 3 0.99 (*) 1.09 - 3.23 10*3/uL MONO x10 3 1.44 (*) 0.36 - 1.02 10*3/uL EOS x10 3 0.03 (*) 0.06 - 0.53 10*3/uL BASO x10 3 <0.03 0.01 - 0.09 10*3/uL COMP. METABOLIC PANEL (81716) - Abnormal NA 120 (*) 135 - 145 mmol/L K 4.8 3.5 - 5.0 mmol/L CL 85 (*) 98 - 108 mmol/L CO2 TOTAL 21 (*) 23 - 31 mmol/L AGAP 14 2 - 16 BUN 70 (*) 7 - 23 mg/dL GLUCOSE 97 70 - 110 mg/dL CREATININE 8.39 (*) 0.60 - 1.25 mg/dL TOTAL BILI 0.7 0.1 - 1.1 mg/dL CALCIUM 8.8 8.6 - 10.6 mg/dL T PROTEIN 7.2 6.3 - 8.2 g/dL ALBUMIN 4.1 3.5 - 5.0 g/dL ALK PHOS 95 34 - 122 U/L ALTv 12 5 - 50 U/L AST(SGOT) 24 13 - 40 U/L eGFR 6.9 mL/min/1.73m2 LIPASE - Abnormal LIPASE 758 (*) 0 - 220 U/L URINALYSIS - Abnormal APPEARANCE Hazy (*) Clear COLOR Yellow Yellow PH 5.0 4.8 - 8.0 SP GRAVITY 1.004 1.003 - 1.030 GLU U QUAL Normal Normal BLOOD 2+ (*) Negative KETONES Negative Negative PROTEIN Negative Negative UROBILIN Normal Normal BILIRUBIN Negative Negative NITRITE Negative Negative LEUK MANAS 250/uL (*) Negative RBC/HPF 1 0 - 3 HPF WBC/HPF 31 (*) 0 - 5 HPF BACTERIA Few (*) Negative SQ EPITH <1 HPF WBC CLUMPS 4 (*) <=1 HPF BASIC METABOLIC PANEL (NA, K, CL, CO2, GLUCOSE, BUN, CREATININE, CA) EKG: If EKG completed, see Procedure Note. Orders and Treatments: Orders Placed This Encounter Procedures CT ABDOMEN PELVIS WO CONTRAST Cbc with Diff Comp. Metabolic Panel (85271) Lipase Urinalysis Basic Metabolic Panel (NA, K, CL, CO2, GLUCOSE, BUN, CREATININE, CA) Orders Placed This Encounter Medications magnesium citrate solution 296 mL First Provider Eval: ED Events Date/Time Event User Comments 08/21/231949 Medical Screening Begins COSME CARDONA -- 08/21/231949 First Provider Evaluation COSME CARDONA -- AdmissionCare Guideline: Urologic Disease, Inpatient Based on the indications selected for the patient, the bed status of Inpatient was determined to be MET The following indications were selected as present at the time of evaluation of the patient: - Acute urinary retention requiring inpatient care, as indicated by 1 or more of the following: - Acute kidney injury (stage 2) with significant clinical findings, as indicated by ALL of the following: - Acute kidney injury (stage 2), as indicated by 1 or more of the following: - Rise in creatinine to 2 times its baseline value or higher - Reduction of more than 50% in estimated glomerular filtration rate from baseline eGFR - Adult CalculatoreGFR - Pediatric Calculator - Urine output less than 0.5 mL/kg/hr for 12 hours despite adequate volume status - Significant clinical findings, as indicated by 1 or more of the following: - Clinically significant electrolyte abnormality that is severe (eg, hyperkalemia with severe ECG findings) or persists despite appropriate treatment AdmissionCare documentation entered by: Cosme Cardona [facility] [employer], 27th edition, Copyright ? 2022 [facility] [employer] [facility] All Rights Reserved. [id number]:00 ED COURSE ED Course as of 08/21/23 2255 Sat Aug 21, 20232224 CREATININE(!): 8.39 [PS] 2225 NA(!): 120 [PS] 2225 WBC x10 3 (!): 14.75 [PS] 2225 WBC/HPF(!): 31 [PS] 2225 LEUK MANAS(!): 250/uL [PS] ED Course User Index [PS] Cosme Cardona DO Diagnosis/Impression as of 08/21/232254 Constipation, unspecified constipation type Acute urinary retention Hyponatremia ELIEZER (acute kidney injury) Obstructive uropathy Procedures: Procedures MDM: Medical Decision Making 58-year-old male with obstructive uropathy secondary to urinary retention. Multiple metabolic derangements secondary to his urinary retention. Jensen placed and greater than 2 L of output. Patient will need to be admitted for further evaluation and management as well as metabolic trending. Patient stable for admission. Discussed with hospitalist Dr. Banda. Problems Addressed: Acute urinary retention: acute illness or injury ELIEZER (acute kidney injury): acute illness or injury Hyponatremia: acute illness or injury that poses a threat to life or bodily functions Obstructive uropathy: acute illness or injury with systemic symptoms Amount and/or Complexity of Data Reviewed Labs: ordered. Decision-making details documented in ED Course. Radiology: ordered. Risk OTC drugs. Flowsheet Documentation: Scoring Tools: No data recorded Disposition/Condition: ED Disposition None Discharge Medications: Patient's Medications START taking these medications No medications on file CONTINUE taking these medications which have NOT CHANGED ACARBOSE 25 MG TABLET Take 1 tablet by mouth in the morning and 1 tablet at noon and 1 tablet in the evening. Take with meals. Do all this for 30 days. AMLODIPINE 5 MG TABLET Take 1 tablet by mouth in the morning for 30 days. BLOOD SUGAR DIAGNOSTIC (ACCU-CHEK GUIDE TEST STRIPS) STRIP Use as directed BLOOD-GLUCOSE METER (ACCU-CHEK GUIDE GLUCOSE METER) MISC Use as directed LANCETS 33 GAUGE MISC Use as directed LOSARTAN 25 MG TABLET Take 1 tablet by mouth in the morning for 30 days. METFORMIN 500 MG 24 HR TABLET Take 1 tablet by mouth in the morning and 1 tablet in the evening. Take with meals. Do all this for 30 days. PIOGLITAZONE 15 MG TABLET Take 1 tablet by mouth in the morning for 30 days. TAMSULOSIN 0.4 MG 24 HR CAPSULE Take 1 capsule by mouth in the morning for 30 days. START taking Modified Medications as Prescribed No medications on file STOP taking these medications No medications on file Follow-up: Electronically signed by: Cosme Cardona DO 08/21/23 0199 [facility] 2023-08-21 19:39:00 AdmissionCare Guideline: Urologic Disease, Inpatient Based on the indications selected for the patient, the bed status of Inpatient was determined to be MET The following indications were selected as present at the time of evaluation of the patient: - Acute urinary retention requiring inpatient care, as indicated by 1 or more of the following: - Acute kidney injury (stage 2) with significant clinical findings, as indicated by ALL of the following: - Acute kidney injury (stage 2), as indicated by 1 or more of the following: - Rise in creatinine to 2 times its baseline value or higher - Reduction of more than 50% in estimated glomerular filtration rate from baseline eGFR - Adult CalculatoreGFR - Pediatric Calculator - Urine output less than 0.5 mL/kg/hr for 12 hours despite adequate volume status - Significant clinical findings, as indicated by 1 or more of the following: - Clinically significant electrolyte abnormality that is severe (eg, hyperkalemia with severe ECG findings) or persists despite appropriate treatment AdmissionCare documentation entered by: Cosme Cardona [facility], 27th edition, Copyright ? 2022 [facility] All Rights Reserved. [id number]:00 [facility] 2023-08-17 08:32:29 ----- Message from Yary Renner sent at 08/17/2023 8:24 AM CDT ----- Regarding: RE: Follow up appt Patients brother answered the line and stated his brother doesn't have a phone at this time and will try and call us back to schedule this appt. Thank you Dr Rivera. ----- Message ----- From: Ricky Rivera MD Sent: 08/16/2023 8:23 PM CDT To: [facility] Subject: Follow up appt Needs follow up with one of us in 3-4 weeks. [facility] 2023-08-16 17:56:55 Summary: discharge transportation Discharge paperwork provided, patient stated he does not have a ride. Transportation was arranged with voucher. Discharge location: [address] [place] [address] Patient verbalized understanding. Hilary Quinones RN [facility] 2023-08-16 17:19:16 Problem: Pain Goal: Control of pain at or below patient's documented comfort goal Outcome: Resolved Goal: Reduction in pain sensation Outcome: Resolved Problem: Skin integrity Impaired (Risk or Actual) Goal: Prevention of new skin breakdown Outcome: Resolved Problem: Venous Thromboembolism, (actual or risk of) Goal: Absence of venous thromboembolism (Risk) Outcome: Resolved [facility] 2023-08-16 10:33:18 Summary: jensen Jensen discontinued without complications. Patient given lactulose PO. Patient notified to notify nurse and to leave urine/stool before flushing for nursing staff to assess. Patient verbalized understanding. [facility] 2023-08-16 00:51:24 Problem: Pain Goal: Control of pain at or below patient's documented comfort goal Outcome: Progressing as expected Goal: Reduction in pain sensation Outcome: Progressing as expected Problem: Skin integrity Impaired (Risk or Actual) Goal: Prevention of new skin breakdown Outcome: Progressing as expected Problem: Venous Thromboembolism, (actual or risk of) Goal: Absence of venous thromboembolism (Risk) Outcome: Progressing as expected [facility] 2023-08-15 19:27:06 Problem: Pain Goal: Control of pain at or below patient's documented comfort goal Outcome: Progressing as expected Goal: Reduction in pain sensation Outcome: Progressing as expected Problem: Skin integrity Impaired (Risk or Actual) Goal: Prevention of new skin breakdown Outcome: Progressing as expected Problem: Venous Thromboembolism, (actual or risk of) Goal: Absence of venous thromboembolism (Risk) Outcome: Progressing as expected [facility] Libia Johnson RN [facility] 2023 23:43:36 Problem: Pain Goal: Control of pain at or below patient's documented comfort goal Outcome: Progressing as expected Goal: Reduction in pain sensation Outcome: Progressing as expected Problem: Skin integrity Impaired (Risk or Actual) Goal: Prevention of new skin breakdown Outcome: Progressing as expected Problem: Venous Thromboembolism, (actual or risk of) Goal: Absence of venous thromboembolism (Risk) Outcome: Progressing as expected [facility] 2023 23:01:15 Patient admitted to [facility] for diagnosis of Hypertension, elevated troponin, urine retention, ELIEZER, hypokalemia. Patient agrees to admission, discussed plan of care with patient and family. Patient is awake, alert, oriented, resp reg unlabored, color appropriate for race, PIV intact No adverse reaction to medications administered while in ED Belongings with patient to unit Report to [facility] RN Josi Miller RN [facility] 2023 18:56:57 Handoff report given to Josi VILLAGRAN Nunu Fang RN [facility] 2023 14:42:29 Has been out of diabetic, BP meds since April. States he can't "afford it". Struggling with constipation for "several days". He called EMS today for excessive fatigue and worsening hypertension. He is A&Ox4 and able to ambulate. Alba Hernandez RN [facility] 2023 14:38:00 Associated Order(s): EKG-12 Lead ROUTINE ONCE Pre-Procedure Diagnose(s): Hypertension, unspecified type Post-Procedure Diagnose(s): Hypertension, unspecified type; Elevated troponin I level; Urine retention [facility] Emergency Department Note Patient Name: Saturnino Maldonado Date of : 1965 58 year old male Treatment Room: TX6/TX6 Primary Care Physician: Erik Louie Jr Patient Escorted by: Self [9] Mode of Arrival: EMS - [place] [46] EMS Treatment Prior to ED Arrival: Travel and Exposure Screening: Symptoms Does patient have any of these symptoms?: (not recorded) Exposure Screening Has patient had contact with someone with a communicable disease in the last month?: (not recorded) Diseases exposed to:: (not recorded) Is Patient ?: (not recorded) Exposure Date: (not recorded) Chief Complaint: Chief Complaint Patient presents with Nausea Hypertension History of Present Illness: 58 year old male with hx of [...] pain or shortness of breath, denies UTI symptoms History provided by: Patient and medical records supervisor paper products used: No Past Medical History/Immunizations: Past Medical History: Diagnosis Date HTN (hypertension) Uncontrolled diabetes mellitus with hyperglycemia Allergies: No Known Allergies Past Social History: Tobacco Use Never smoked or used smokeless tobacco. Passive Exposure: Never Alcohol Use Never. Drug Use Never. Past Surgical History: History reviewed. No pertinent surgical history. Review of Systems: Review of Systems Constitutional: Positive for fatigue. Negative for fever. HENT: Negative. Eyes: Negative. Respiratory: Negative. Cardiovascular: Negative. Gastrointestinal: Positive for abdominal pain, constipation and nausea. Negative for diarrhea and vomiting. Genitourinary: Negative. Musculoskeletal: Negative. Skin: Negative. Neurological: Positive for weakness. Negative for dizziness, syncope, speech difficulty and numbness. Psychiatric/Behavioral: Negative for confusion. All other systems reviewed and are negative. Physical Exam: ED Triage Vitals [08/14/23 1444] Weight 57.2 kg (126 lb) Actual or estimated Estimated by patient/family report Height 1.6 m (5' 3") BP (!) 187/115 Pulse 93 Resp 14 Temp 36.2 ?C (97.2 ?F) Temp source Oral SpO2 99 % Measured on Room air Physical Exam Vitals and nursing note reviewed. Constitutional: General: He is not in acute distress. Appearance: He is not ill-appearing or toxic-appearing. Comments: Appears mildly uncomfortable but nontoxic, oriented x 3, alert and interactive HENT: Head: Normocephalic and atraumatic. Right Ear: External ear normal. Left Ear: External ear normal. Nose: Nose normal. Mouth/Throat: Mouth: Mucous membranes are dry. Pharynx: Oropharynx is clear. Comments: Mildly dry mucous membranes Eyes: General: No scleral icterus. Extraocular Movements: Extraocular movements intact. Comments: CN II to XII intact, no facial asymmetry Cardiovascular: Rate and Rhythm: Normal rate and regular rhythm. Heart sounds: Normal heart sounds. Pulmonary: Breath sounds: Normal breath sounds. Abdominal: Palpations: Abdomen is soft. Tenderness: There is abdominal tenderness. There is no right CVA tenderness or left CVA tenderness. Comments: Diffuse lower abdominal discomfort to palpation no guarding or rebound Musculoskeletal: General: Normal range of motion. Cervical back: Normal range of motion. No rigidity or tenderness. Right lower leg: No edema. Left lower leg: No edema. Skin: General: Skin is warm. Capillary Refill: Capillary refill takes less than 2 seconds. Neurological: General: No focal deficit present. Mental Status: He is alert and oriented to person, place, and time. Psychiatric: Thought Content: Thought content normal. Radiology: No orders to display Lab Results: Lab Results - No data to display EKG: If EKG completed, see Procedure Note. Orders and Treatments: No orders of the defined types were placed in this encounter. No orders of the defined types were placed in this encounter. First Provider Eval: ED Events Date/Time Event User Comments 08/14/23 1457 Medical Screening Begins UMANG REYNAGA MD -- 08/14/231456 First Provider Evaluation UMANG REYNAGA MD -- ED COURSE ED Course as of 08/14/23 1841 Sat 2023 184 Discussed all the results with the patient, understands my recommendation for observation for ELIEZER, dehydration, urine retention, hypertensive urgency and elevated troponin. Patient understands and agrees with plan [CD] 183 URINALYSIS(!) No UTI [CD] 181 CK: 148 No Rhabdo [CD] 1725 AGAP: 11 DKA less likely [CD] 1725 WBC x10 3 (!): 12.69 Assessing for infection [CD] 1724 K(!): 3.4 Replaced with PO postassium [CD] 1724 TROPONIN I(!): 0.081 Aspirin given [CD] 172 CREATININE(!): 2.40 Was .63 - 3 months ago [CD] 1722 IMPRESSION No acute cardiopulmonary abnormality. [CD] 1652 IMPRESSION Findings suggest bladder outlet obstruction/urinary retention with moderate hydroureteronephrosis with perinephric and periureteral stranding, prostatomegaly, and prominently distended bladder extending above the umbilicus. Jensen ordered [CD] 1648 CXR interpreted by myself no acute cardiopulmonary pathology [CD] 1647 LACTIC ACID WHOLE BLOOD: 1.58 Severe systemic infection less likely [CD] 1647 PH NOY: 7.34 No acidosis [CD] 1529 POCT GLU(!): 165 [CD] 1457 58 year old male with hx of [...] pain or shortness of breath, denies UTI symptoms Differential includes but not limited to dehydration, ELIEZER, electrolyte abnormality, intra-abdominal infection, UTI, DKA, hyperglycemia, hypertensive urgency, hypertension, intracranial hemorrhage, less likely infection Plan is symptom control, labs, x-rays, CT scan monitor and reassessment. Patient understands and agrees with plan [CD] ED Course User Index [CD] Umang Reynaga MD Diagnosis/Impression as of 08/14/23 1841 Hypertension, unspecified type Elevated troponin I level Urine retention ELIEZER (acute kidney injury) Hypokalemia Procedures: EKG-12 Lead ROUTINE ONCE Date/Time: 2023 5:55 PM Performed by: Umang Reynaga MD Authorized by: Umang Reynaga MD ECG interpreted by ED Physician in the absence of a director [employer]: yes Previous ECG: Previous ECG: Compared to current Similarity: No change Comparison ECG info: 04/20/23 Interpretation: Interpretation: abnormal Rate: ECG rate: 101 ECG rate assessment: tachycardic Rhythm: Rhythm: sinus tachycardia Ectopy: Ectopy: none QRS: QRS axis: Normal QRS intervals: Normal QRS conduction: normal ST segments: ST segments: Normal T waves: T waves: normal Q waves: Abnormal Q-waves: present Q waves: II, III and aVF MDM: Medical Decision Making See ED course for MDM Problems Addressed: ELIEZER (acute kidney injury): complicated acute illness or injury Elevated troponin I level: acute illness or injury Hypertension, unspecified type: chronic illness or injury Hypokalemia: acute illness or injury Urine retention: complicated acute illness or injury Amount and/or Complexity of Data Reviewed External Data Reviewed: ECG and notes. Labs: ordered. Decision-making details documented in ED Course. Radiology: ordered and independent interpretation performed. Decision-making details documented in ED Course. ECG/medicine tests: ordered and independent interpretation performed. Decision-making details documented in ED Course. Details: See procedure note Risk OTC drugs. Prescription drug management. Decision regarding hospitalization. Diagnosis or treatment significantly limited by social determinants of health. Risk Details: Financial, homeless Flowsheet Documentation: Scoring Tools: No data recorded Disposition/Condition: ED Disposition None Discharge Medications: Patient's Medications START taking these medications No medications on file CONTINUE taking these medications which have NOT CHANGED ACARBOSE 25 MG TABLET Take 1 tablet by mouth in the morning and 1 tablet at noon and 1 tablet in the evening. Take with meals. BLOOD SUGAR DIAGNOSTIC (ACCU-CHEK GUIDE TEST STRIPS) STRIP Use as directed BLOOD-GLUCOSE METER (ACCU-CHEK GUIDE GLUCOSE METER) MISC Use as directed LANCETS 33 GAUGE MISC Use as directed START taking Modified Medications as Prescribed No medications on file STOP taking these medications No medications on file Follow-up: Electronically signed by: Umang Reynaga MD 08/14/231851 [facility] 2023 14:38:00 AdmissionCare Guideline: Renal Failure (Acute), Observation Based on the indications selected for the patient, the bed status of Observation was determined to be MET The following indications were selected as present at the time of evaluation of the patient: - Acute kidney injury (eg, rise in serum creatinine, reduction in estimated glomerular filtration rate from baseline) - Clinical concern necessitating monitoring or treatment beyond emergency department care, as indicated by 1 or more of the following: - Vital sign findings not as expected for chronic patient condition or baseline (eg, intentionally low blood pressure in heart failure) - Stability of renal function not clear (eg, concern that serum creatinine has not plateaued, and will rise over serial assessments) AdmissionCare documentation entered by: [facility] [employer], edition, Copyright ? 2022 [employer] All Rights Reserved. [id number]:18-05:00 [facility] [employer] 2023 14:38:00 AdmissionCare Guideline: Renal Failure (Acute) - INPT, Inpatient Based on the indications selected for the patient, the bed status of Inpatient was determined to be MET The following indications were selected as present at the time of evaluation of the patient: - Acute renal failure (stage 3 acute kidney injury), as indicated by 1 or more of the following: - Rise in creatinine to 3 times its baseline value or higher - Acute kidney injury (eg, rise in serum creatinine, reduction in estimated glomerular filtration rate from baseline) requiring inpatient care, as indicated by 1 or more of the following: - Severe hypertension (SBP greater than 180 mm Hg or DBP greater than 120 mm Hg in adults or greater than the 95th percentile for age, gender, and height plus 30 mm Hg in pediatric patients) AdmissionCare documentation entered by: Umang Reynaga [employer], edition, Copyright ? 2022 [employer] All Rights Reserved. [id number]:00:25-05:00 [facility] [employer] 2023-04-27 15:56:14 TRANSITIONAL CARE MANAGEMENT ASSESSMENT 04/27/2023 Saturnino Maldonado [id number] Saturnino Maldonado is a 57 year old /White male was admitted on 04/20/[address]. He was discharged on 04/23/23 with discharge disposition of HR- Routine Discharge. Admitting Physician: Parvez Monroe Discharge Diagnosis: NSTEMI (non-ST elevated myocardial infarction) [I21.4] Niece is going to give message to pt. Aware of f/u appt. At [place]. He voiced he had a ride to her. If he needs anything she will pass my message to him. She hears from him if he needs something or to check in. No linked episodes TCM [id number] outreach documentation: Future Appointments: GN ENGINEERING MANAGER Jeannette Dawn LVN [facility] 2023-04-23 18:39:42 Patient refuses to take taxi voucher which takes him directly to [place] stating, "My brother is on his way to pick me up. I don't want to upset him as it is anymore." When asked if his brother is going to take him to [place], patient stated, "I don't know. That will be between me and my brother." Transportation in room, wheeled patient downstairs to [facility]. A Sparks RN [facility] 2023-04-23 17:33:42 Problem: Glucose control Goal: Glucose level within specified parameters 04/23/2023 173 by Valentino Whiting RN Outcome: Adequate for discharge 04/23/2023 1732 by Valentino Whiting RN Outcome: Adequate for discharge 04/23/2023 1051 by Valentino Whiting, TYSHAWN Outcome: Progressing as expected Problem: Discharge Planning Goal: Adequate for discharge 04/23/2023 1733 by Valentino Whiting RN Outcome: Adequate for discharge 04/23/2023 1732 by Valentino Whiting RN Outcome: Adequate for discharge 04/23/2023 1051 by Valentino Whiting, RN Outcome: Progressing as expected Goal: Adequate to move to next level of care 04/23/2023 1733 by Valentino Whiting, RN Outcome: Adequate for discharge 04/23/2023 1732 by Valentino Whiting, RN Outcome: Adequate for discharge 04/23/2023 1051 by Valentino Whiting, RN Outcome: Progressing as expected Problem: Pain Goal: Control of pain at or below patient's documented comfort goal 04/23/2023 1733 by Valentino Whiting RN Outcome: Adequate for discharge 04/23/2023 1732 by Valentino Whiting RN Outcome: Adequate for discharge 04/23/2023 1051 by Valentino Whiting RN Outcome: Progressing as expected Goal: Reduction in pain sensation 04/23/2023 173 by Valentino Whiting, RN Outcome: Adequate for discharge 04/23/2023 1732 by Valentino Whiting, RN Outcome: Adequate for discharge 04/23/2023 1051 by Valentino Whiting, RN Outcome: Progressing as expected Problem: Tissue Perfusion, Cardiopulmonary - Altered Goal: Circulatory function within specified parameters 04/23/2023 173 by Valentino Whiting RN Outcome: Adequate for discharge 04/23/2023 173 by Valentino Whiting RN Outcome: Adequate for discharge 04/23/2023 1051 by Valentino Whiting, RN Outcome: Progressing as expected Problem: Mental Status - Impaired Goal: Able to achieve maximum level of cognitive ability 04/23/2023 173 by Valentino Whiting RN Outcome: Adequate for discharge 04/23/2023 173 by Valentino Whiting RN Outcome: Adequate for discharge 04/23/2023 105 by Valentino Whiting RN Outcome: Progressing as expected A Whiting RN [facility] 2023-04-23 17:33:03 Problem: Glucose control Goal: Glucose level within specified parameters 04/23/2023 1732 by Valentino Whiting RN Outcome: Adequate for discharge 04/23/2023 1051 by Valentino Whiting, RN Outcome: Progressing as expected Problem: Discharge Planning Goal: Adequate for discharge 04/23/2023 1732 by Valentino Whiting RN Outcome: Adequate for discharge 04/23/2023 1051 by Valentino Whiting, RN Outcome: Progressing as expected Goal: Adequate to move to next level of care 04/23/2023 1732 by Valentino Whiting, RN Outcome: Adequate for discharge 04/23/2023 1051 by Eaves, Valentino C, RN Outcome: Progressing as expected Problem: Pain Goal: Control of pain at or below patient's documented comfort goal 04/23/2023 1732 by Valentino Whiting RN Outcome: Adequate for discharge 04/23/2023 1051 by Valentino Whiting RN Outcome: Progressing as expected Goal: Reduction in pain sensation 04/23/2023 1732 by Valentino Whiting RN Outcome: Adequate for discharge 04/23/2023 1051 by Valentino Whiting RN Outcome: Progressing as expected Problem: Tissue Perfusion, Cardiopulmonary - Altered Goal: Circulatory function within specified parameters 04/23/2023 1732 by Valentino Whiting RN Outcome: Adequate for discharge 04/23/2023 1051 by Valentino Whiting RN Outcome: Progressing as expected Problem: Mental Status - Impaired Goal: Able to achieve maximum level of cognitive ability 04/23/2023 1732 by Valentino Whiting RN Outcome: Adequate for discharge 04/23/2023 1051 by Valentino Whiting RN Outcome: Progressing as expected [facility] 2023-04-23 10:51:50 Problem: Glucose control Goal: Glucose level within specified parameters Outcome: Progressing as expected Problem: Discharge Planning Goal: Adequate for discharge Outcome: Progressing as expected Goal: Adequate to move to next level of care Outcome: Progressing as expected Problem: Pain Goal: Control of pain at or below patient's documented comfort goal Outcome: Progressing as expected Goal: Reduction in pain sensation Outcome: Progressing as expected Problem: Tissue Perfusion, Cardiopulmonary - Altered Goal: Circulatory function within specified parameters Outcome: Progressing as expected Problem: Mental Status - Impaired Goal: Able to achieve maximum level of cognitive ability Outcome: Progressing as expected [facility] 2023-04-23 00:56:44 Problem: Mental Status - Impaired Goal: Able to achieve maximum level of cognitive ability Outcome: Progressing as expected [facility] 2023-04-23 00:52:07 Problem: Glucose control Goal: Glucose level within specified parameters Outcome: Progressing as expected Problem: Discharge Planning Goal: Adequate for discharge Outcome: Progressing as expected Goal: Adequate to move to next level of care Outcome: Progressing as expected Problem: Pain Goal: Control of pain at or below patient's documented comfort goal Outcome: Progressing as expected Goal: Reduction in pain sensation Outcome: Progressing as expected Problem: Tissue Perfusion, Cardiopulmonary - Altered Goal: Circulatory function within specified parameters Outcome: Progressing as expected [facility] 2023-04-22 08:03:00 Problem: Glucose control Goal: Glucose level within specified parameters Outcome: Progressing as expected Problem: Discharge Planning Goal: Adequate for discharge Outcome: Progressing as expected Goal: Adequate to move to next level of care Outcome: Progressing as expected Problem: Pain Goal: Control of pain at or below patient's documented comfort goal Outcome: Progressing as expected Goal: Reduction in pain sensation Outcome: Progressing as expected Problem: Tissue Perfusion, Cardiopulmonary - Altered Goal: Circulatory function within specified parameters Outcome: Progressing as expected [facility] 2023-04-20 23:38:56 Problem: Glucose control Goal: Glucose level within specified parameters Outcome: Progressing as expected Problem: Discharge Planning Goal: Adequate for discharge Outcome: Progressing as expected Goal: Adequate to move to next level of care Outcome: Progressing as expected Problem: Pain Goal: Control of pain at or below patient's documented comfort goal Outcome: Progressing as expected Goal: Reduction in pain sensation Outcome: Progressing as expected Problem: Tissue Perfusion, Cardiopulmonary - Altered Goal: Circulatory function within specified parameters Outcome: Progressing as expected [facility] 2023-04-20 21:49:[address] [facility] 923 for diagnosis of WEAKNESS, NSTEMI, HYPERGLYCEMIA Patient agrees to admission, discussed plan of care with patient. Patient is awake, alert, oriented, resp reg unlabored, color appropriate for race, PIV intact No adverse reaction to medications administered while in ED Belongings with patient to unit Report to MARIE VILLAGRAN REPORT GIVEN TO MEDIC FOR [facility], PT LOADED TO BE TRANSFERRED. [facility]PARIN INFUSING AT 700 UNITS/ HOUR. GN ENGINEERING MANAGER Jaelyn Vargas RN [facility] 2023-04-20 21:38:11 Report called to [facility], spoke with Marie VILLAGRAN. Pt awaiting EMS transfer. GN ENGINEERING MANAGER [facility] 2023-04-20 20:59:06 [facility] ETA 45 MIN per Chen A Carrero PCT [facility] 2023-04-20 20:54:15 Associated Order(s): Critical Care Critical Care Performed by: Sergio Aponte MD Authorized by: Sergio Aponte MD Critical care provider statement: Critical care time (minutes): 45 Critical care time was exclusive of: Separately billable procedures and treating other patients and teaching time Critical care was necessary to treat or prevent imminent or life-threatening deterioration of the following conditions: Cardiac failure Critical care was time spent personally by me on the following activities: Development of treatment plan with patient or surrogate, evaluation of patient's response to treatment, examination of patient, obtaining history from patient or surrogate, ordering and performing treatments and interventions, ordering and review of laboratory studies, ordering and review of radiographic studies, pulse oximetry, re-evaluation of patient's condition and review of old charts Care discussed with: admitting provider Comments: Due to a high probability of clinically [...] treatment; frequent reassessment; and, discussions with other providers. This critical care time was performed to assess and manage the high probability of imminent, life-threatening deterioration that could result in multi-organ failure. It was exclusive of separately billable procedures and treating other patients. [facility] 2023-04-20 20:00:00 Patient aware of UA sample needed. Unable to provide sample at this moment. Urinal at bedside. Call light within reach. [facility] 2023-04-20 19:50:08 Patient arrived to ED via [facility] c/o "not feeling well." [facility] [employer]. Per patient he was diagnosed with DM five years ago and stopped taking home meds-Metformin about three years ago. Patient c/o of being weak and increased UOP. Patient was nauseous [employer] but has resolved since. [facility] 2023-04-20 19:43:00 EMERGENCY DEPARTMENT ENCOUNTER [facility] Patient Name: Saturnino Maldonado Date of : 1965 57 year old Exam Room:Room/bed info not found Primary Care Physician: No primary care provider on file. Pre- Hospital Patient Escorted by: Self [9] Mode of Arrival: EMS - [facility] ([facility]) [43] EMS Treatment Prior to ED Arrival: [employer] treatment: Saline lock;IVF ED Events Date/Time Event User Comments 04/20/231943 Medical Screening Begins SERGIO APONTE MD -- 04/20/231943 First Provider Evaluation SERGIO APONTE MD -- Chief Complaint Chief Complaint Patient presents with High Blood Sugar ED Triage Notes Megan Madrigal RN 04/20/2023 19:52 Patient arrived to ED via [facility] c/o "not feeling well." [facility] [employer]. Per patient he was diagnosed with DM five years ago and stopped taking home meds-Metformin about three years ago. Patient c/o of being weak and increased UOP. Patient was nauseous [employer] but has resolved since. HPI History provided by: Patient Weakness Location: Generalized Severity: Moderate Onset quality: Gradual Timing: Constant Chronicity: New Relieved by: Nothing Worsened by: Nothing Associated symptoms: no abdominal pain, no chest pain, no cough, no fatigue, no fever, no headaches, no nausea, no shortness of breath, no vomiting and no wheezing Past Medical History / Immunizations Past Medical History: Diagnosis Date HTN (hypertension) Uncontrolled diabetes mellitus with hyperglycemia Tetanus received in last 5 years: Unknown Past Surgical History History reviewed. No pertinent surgical history. Allergies No Known Allergies Social History Tobacco Use Smokeless Tobacco: Never used smokeless tobacco. Alcohol Use Never. Drug Use Never. Review of Systems Review of Systems Constitutional: Negative. Negative for chills, fatigue, fever and unexpected weight change. HENT: Negative. Eyes: Negative. Negative for discharge and itching. Respiratory: Negative. Negative for cough, chest tightness, shortness of breath and wheezing. Cardiovascular: Negative. Negative for chest pain and palpitations. Gastrointestinal: Negative. Negative for abdominal distention, abdominal pain, nausea and vomiting. Genitourinary: Negative. Negative for dysuria, urgency, frequency and flank pain. Musculoskeletal: Negative. Skin: Negative. Negative for color change, pallor and wound. Neurological: Negative for dizziness, syncope, light-headedness and headaches. Psychiatric/Behavioral: Negative. Negative for agitation and behavioral problems. All other systems reviewed and are negative. Endocrine: Endocrine negative Physical Exam ED Triage Vitals [04/20/231952] Weight 59 kg (130 lb) Actual or estimated Estimated by patient/family report Height 1.6 m (5' 3") BP 106/69 Pulse 102 Resp 23 Temp 37.3 ?C (99.1 ?F) Temp source Oral SpO2 99 % Measured on Room air Physical Exam Vitals reviewed. Constitutional: Appearance: He is well-developed. HENT: Head: Normocephalic and atraumatic. Nose: Nose normal. Eyes: Conjunctiva/sclera: Conjunctivae normal. Neck: Trachea: No tracheal deviation. Cardiovascular: Rate and Rhythm: Normal rate and regular rhythm. Heart sounds: Normal heart sounds. No murmur heard. No friction rub. Pulmonary: Effort: Pulmonary effort is normal. No respiratory distress. Breath sounds: Normal breath sounds. No stridor. No wheezing or rales. Abdominal: General: Bowel sounds are normal. There is no distension. Palpations: Abdomen is soft. Tenderness: There is no abdominal tenderness. There is no guarding or rebound. Musculoskeletal: General: Normal range of motion. Cervical back: Normal range of motion and neck supple. Skin: General: Skin is warm and dry. Neurological: Mental Status: He is alert and oriented to person, place, and time. Cranial Nerves: No cranial nerve deficit. Sensory: No sensory deficit. Psychiatric: Behavior: Behavior normal. Labs Lab Results CBC WITH DIFF - Abnormal Result Value Ref Range WBC 11.74 (*) 4.20 - 10.70 10*3/?L RBC 3.94 (*) 4.26 - 5.52 10*6/?L HGB 12.3 12.2 - 16.4 g/dL HCT 33.8 (*) 38.4 - 49.3 % MCV 85.8 81.7 - 95.6 fL MCH 31.2 26.1 - 32.7 pg MCHC 36.4 (*) 31.2 - 35.0 g/dL RDW-SD 36.2 (*) 38.5 - 51.6 fL RDW-CV 11.6 (*) 12.1 - 15.4 % PLT 178 150 - 328 10*3/?L MPV 10.9 9.8 - 13.0 fL NRBC/100 WBC 0.0 0.0 - 10.0 /100 WBCs NRBC x10 3 <0.01 10*3/?L GRAN MAT (NEUT) % 81.3 % IMM GRAN % 0.30 % LYMPH % 10.5 % MONO % 7.6 % EOS % 0.1 % BASO % 0.2 % GRAN MAT x10 3 (ANC) 9.55 (*) 1.99 - 6.95 10*3/uL IMM GRAN x10 3 0.04 0.00 - 0.06 10*3/uL LYMPH x10 3 1.23 1.09 - 3.23 10*3/uL MONO x10 3 0.89 0.36 - 1.02 10*3/uL EOS x10 3 <0.03 (*) 0.06 - 0.53 10*3/uL BASO x10 3 <0.03 0.01 - 0.09 10*3/uL COMP. METABOLIC PANEL (89372) - Abnormal NA 129 (*) 135 - 145 mmol/L K 3.5 3.5 - 5.0 mmol/L CL 94 (*) 98 - 108 mmol/L CO2 TOTAL 28 23 - 31 mmol/L AGAP 7 2 - 16 BUN 26 (*) 7 - 23 mg/dL GLUCOSE 314 (*) 70 - 110 mg/dL CREATININE 0.92 0.60 - 1.25 mg/dL TOTAL BILI 0.8 0.1 - 1.1 mg/dL CALCIUM 8.5 (*) 8.6 - 10.6 mg/dL T PROTEIN 6.0 (*) 6.3 - 8.2 g/dL ALBUMIN 3.3 (*) 3.5 - 5.0 g/dL ALK PHOS 95 34 - 122 U/L ALTv 23 5 - 50 U/L AST(SGOT) 30 13 - 40 U/L eGFR 98.2 mL/min/1.73m2 URINALYSIS - Abnormal APPEARANCE Clear Clear COLOR Yellow Yellow PH 6.0 4.8 - 8.0 SP GRAVITY 1.013 1.003 - 1.030 GLU U QUAL 500 mg/dL (*) Normal BLOOD Negative Negative KETONES 5 mg/dL (*) Negative PROTEIN 30 mg/dL (*) Negative UROBILIN Normal Normal BILIRUBIN Negative Negative NITRITE Negative Negative LEUK MANAS Negative Negative RBC/HPF <1 0 - 3 HPF WBC/HPF 1 0 - 5 HPF BACTERIA Negative Negative POCT GLUCOSE (AUTOMATED) - Abnormal POCT GLU 408 (*) 70 - 110 mg/dL TROPONIN I - Abnormal TROPONIN I 0.154 (*) <=0.034 ng/mL URINE DRUG (IMMUNOASSAY) - COMPREHENSIVE DRUG SCREEN W/O REFLEX - Normal AMPHET Negative Negative NAM U Negative Negative BENZO U Negative Negative Cocaine Metabolite Negative Negative METHADONE Negative Negative OPIATES Negative Negative PCP Negative Negative THC Negative Negative PROTHROMBIN TIME / INR - Normal PROTIME PATIENT 13.0 12.0 - 14.7 Seconds INR 1.0 ACTIVATED PARTIAL THRMPLAS JERMAINE - Normal APTT Patient 31 23 - 38 Seconds ETHANOL ALCOHOL <10 mg/dL Imaging No orders to display Orders and Treatments Orders Placed This Encounter Procedures Critical Care XR CHEST 1 VW CBC WITH DIFF COMP. METABOLIC PANEL (49305) URINALYSIS URINE DRUG (IMMUNOASSAY) - COMPREHENSIVE DRUG SCREEN W/O REFLEX ETHANOL POCT GLUCOSE (AUTOMATED) Troponin I Prothrombin Time / INR aPTT aPTT (for use with Heparin Infusion) Ferritin Serum Iron Panel Troponin I Thyroid Stimulating Hormone Glycosylated Hemoglobin (A1C) Phosphorus Cbc with Diff Basic Metabolic Panel (NA, K, CL, CO2, GLUCOSE, BUN, CREATININE, CA) Magnesium Lipid Panel (25261)(Total Cholesterol, Triglycerides, HDL) O2 Per Protocol Orders Placed This Encounter Medications DISCONTD: aspirin tablet 325 mg HEPARIN SODIUM (PORCINE) 1,000 UNIT/ML BOLUS ACS ORDER SET heparin (1,000 unit/mL, 10 mL vial) for Rebolusing heparin 25,000 Units/250 mL (Premixed Bag) in 0.45 % NS clopidogreL (PLAVIX) 300 mg tablet 300 mg NaCl 0.9% (NS) bolus infusion 1,000 mL acetaminophen (TYLENOL) tablet 650 mg aspirin tablet 325 mg atorvastatin (LIPITOR) tablet 80 mg Procedures EKG Time 1950 Sinus tach [place] normal Intervals normal No acute ischemia Notes & MDM Patient was evaluated for an emergency medical condition related to High Blood Sugar DDX Hyperglycemia Dehydration Substance use Diagnosis/Impression as of 04/21/23 0024 Weakness NSTEMI (non-ST elevated myocardial infarction) Hyperglycemia Medical Decision Making Problems Addressed: Hyperglycemia: acute illness or injury NSTEMI (non-ST elevated myocardial infarction): acute illness or injury Weakness: acute illness or injury Amount and/or Complexity of Data Reviewed Labs: ordered. Decision-making details documented in ED Course. Radiology: ordered and independent interpretation performed. Decision-making details documented in ED Course. ECG/medicine tests: ordered and independent interpretation performed. Decision-making details documented in ED Course. Risk Prescription drug management. Limitations to patient care and compliance: none. Assessment/Summary: The patient is a 57-year-old male with a history of diabetes who has been noncompliant with the medication presents with generalized weakness. He has no other symptoms. Workup demonstrates that he is having a silent MT. He has elevated troponin of 0.154. Please note he does not have any chest pain or shortness of breath. EKG does not demonstrate a STEMI. He was started on heparin, Plavix, and aspirin. The patient may require cardiac catheterization. The patient was transferred to [facility] for further evaluation. History, physical exam findings, results of visit, differential diagnosis, medication regimens and plan of future care have been considered. Additional MDM may be found in the ED course. Differential diagnosis considered and final disposition made based on information gathered during evaluation and may not be completely ruled out or specifically listed. Vital signs were rechecked before final disposition. Diagnosis Final diagnoses: [R53.1] Weakness (Primary) [I21.4] NSTEMI (non-ST elevated myocardial infarction) [R73.9] Hyperglycemia Disposition & Follow Up ED Disposition ED Disposition Transfer - [facility] to IP/Obs Condition -- Comment -- There are no discharge medications for this patient. Sergio Aponte Jr., MD Clinical Microstrategy Architect [facility] Emergency Department [employer] Dictation Software is used frequently and may produce errors. Promptly contact for obvious discrepancies. Sergio Aponte MD 04/21/23 0025 [facility] EMERGENCY PHYSICIAN STAFF [facility]
--- NOTE | 2023-11-30 19:32 | EDPHYS ---
Physician Documentation [facility] Name: Johnnie Maldonado Age: 58 yrs Sex: Male : 1965 Arrival Date: 11/30/2023 Time: 17:32 Bed 25 Private MD: ED Physician Salvatore Doherty HPI: 11/29 20:49 This 58 yrs old Male presents to ER via Ambulatory with complaints of Problem kb With Urinary Catheter. 20:49 Patient is a 58-year-old male who presents for leaking leg bag. States he had this kb Bae in for a couple of weeks and has had no problems with it, it is draining well but the bag itself has been leaking. Presents to have bag changed out.. Historical: - Allergies: 18:34 No Known Allergies; nj1 - PMHx: 18:34 diabetes mellitus; Hypertensive disorder; raynaud's; Urinary incontinence; nj1 - Immunization history:: Client reports receiving the 2nd dose of the Covid vaccine. - Infectious Disease History:: Denies. - Social history:: Smoking status: Patient denies any tobacco usage or history of. ROS: 20:49 Constitutional: As per HPI kb Exam: 20:49 Constitutional: This is a well developed, well nourished patient who is awake, alert, kb and in no acute distress. Head/Face: Normocephalic, atraumatic. ENT: Moist Mucous membranes Cardiovascular: Regular rate Respiratory: Respirations even and unlabored. No increased work of breathing. Talking in full sentences Abdomen/GI: Soft, non-tender. No distention Skin: Warm, dry with normal turgor. Normal color. MS/ Extremity: Pulses equal, no cyanosis. Neurovascular intact. Full, normal range of motion. Neuro: Awake and alert, GCS 15, oriented to person, place, time, and situation. Moves all extremities. Normal gait. Vital Signs: 18:32 BP 186 / 99; Pulse 88; Resp 18; Temp 97.6(O); Pulse Ox 100% on R/A; Weight 54.43 kg; nj1 Height 5 ft. 3 in. ; 20:19 BP 172 / 82; Pulse 86; Resp 17; Pulse Ox 100% ; vc1 18:32 Body Mass Index 21.26 (54.43 kg, 160.02 cm) nj1 MDM: 17:42 Patient medically screened. kb 20:49 Differential diagnosis: Malfunction of urinary catheter. Data reviewed: vital signs, kb nurses notes. Counseling: I had a detailed discussion with the patient and/or guardian regarding the historical points, exam findings, and any diagnostic results supporting the discharge/admit diagnosis, the need for outpatient follow up, a family practitioner, to return to the emergency department if symptoms worsen or persist or if there are any questions or concerns that arise at home. 11/29 18:37 Order name: [place]. Order: change out leg bag; Complete Time: 20:03 kb Administered Medications: No medications were administered Disposition Summary: 11/30/23 19:32 Discharge Ordered Notes: Location: Home kb Condition: Stable kb Diagnosis - Other mechanical complication of urinary (indwelling) catheter kb Followup: kb - With: Emergency Department - When: As needed - Reason: Worsening of condition Followup: kb - With: Private Physician - When: 2 - 3 days - Reason: Recheck today's complaints, Continuance of care, Re-evaluation by your physician Discharge Instructions: - Discharge Summary Sheet kb - Indwelling Urinary Catheter Care, Adult, [id number] kb Forms: - Medication Reconciliation Form kb - Antibiotic Education kb - Prescription Opioid Use kb - Patient Portal Instructions kb - Leadership Thank You Letter kb Signatures: Jaky Browne FNP-C FNP-Ckb Jaco, Norma, RN RN nj1
--- NOTE | 2023-11-30 19:32 | ER ---
Nurse's Notes [facility] Name: Johnnie Maldonado Age: 58 yrs Sex: Male : 1965 Arrival Date: 11/30/2023 Time: 17:32 Bed 25 Private MD: Diagnosis: Other mechanical complication of urinary (indwelling) catheter Presentation: 11/29 18:32 Chief complaint: Patient states: Urinary catheter bag is leaking on the bottom. [facility] Coronavirus screen: Vaccine status: Patient reports receiving the 2nd dose of the covid vaccine. Ebola Screen: Patient denies travel to an Ebola-affected area in the 21 days before illness onset. Initial Sepsis Screen: Does the patient meet any 2 criteria? No. Patient's initial sepsis screen is negative. Does the patient have a suspected source of infection? No. Patient's initial sepsis screen is negative. Risk Assessment: Do you want to hurt yourself or someone else? Patient reports no desire to harm self or others. Onset of symptoms. 18:32 Method Of Arrival: Ambulatory [facility] 18:32 Acuity: DONTE 5 [facility] Triage Assessment: 20:15 General: Appears in no apparent distress. comfortable, Behavior is calm, cooperative, vc1 appropriate for age. Pain: Denies pain. EENT: No deficits noted. No signs and/or symptoms were reported regarding the EENT system. Neuro: Level of Consciousness is awake, alert, obeys commands. Cardiovascular: No deficits noted. Respiratory: Airway is patent Respiratory effort is even, unlabored, Respiratory pattern is regular, symmetrical, Breath sounds are clear bilaterally. GI: No deficits noted. No signs and/or symptoms were reported involving the gastrointestinal system. : No deficits noted. No signs and/or symptoms were reported regarding the genitourinary system. Derm: Skin is intact, is healthy with good turgor, Skin is dry, Skin is normal, Skin temperature is warm. Musculoskeletal: No deficits noted. No signs and/or symptoms reported regarding the musculoskeletal system. Historical: - Allergies: 18:34 No Known Allergies; nj1 - PMHx: 18:34 diabetes mellitus; Hypertensive disorder; raynaud's; Urinary incontinence; nj1 - Immunization history:: Client reports receiving the 2nd dose of the Covid vaccine. - Infectious Disease History:: Denies. - Social history:: Smoking status: Patient denies any tobacco usage or history of. Screenin:13 [facility] ED Fall Risk Assessment (Adult) History of falling in the last 3 months, vc1 including since admission No falls in past 3 months (0 pts) Confusion or Disorientation No (0 pts) Intoxicated or Sedated No (0 pts) Impaired Gait No (0 pts) Mobility Assist Device Used No (0 pt) Altered Elimination No (0 pt) Score/Fall Risk Level 0 - 2 = Low Risk Oriented to surroundings, Maintained a safe environment, Educated pt \T\ family on fall prevention, incl call for assistance when getting out of bed. Abuse screen: Denies threats or abuse. Nutritional screening: No deficits noted. Tuberculosis screening: No symptoms or risk factors identified. Vital Signs: 18:32 BP 186 / 99; Pulse 88; Resp 18; Temp 97.6(O); Pulse Ox 100% on R/A; Weight 54.43 kg; nj1 Height 5 ft. 3 in. ; 20:19 BP 172 / 82; Pulse 86; Resp 17; Pulse Ox 100% ; vc1 18:32 Body Mass Index 21.26 (54.43 kg, 160.02 cm) nj1 ED Course: 17:36 Patient arrived in ED. mg5 17:42 [facility] kb 17:42 Salvatore Doherty MD is Attending Physician. kb 18:34 Triage completed. nj1 18:35 Arm band placed on right wrist. nj1 20:05 replaced catheter leg bag. vk 20:13 Patient has correct armband on for positive identification. Bed in low position. Call vc1 light in reach. Provided Education on: extension tubing and leg bag. Pulse ox on. NIBP on. 20:18 No provider procedures requiring assistance completed. Patient did not have IV access vc1 during this emergency room visit. Administered Medications: No medications were administered Medication: 20:14 VIS not applicable for this client. vc1 Outcome: 19:32 Discharge ordered by . kb 20:18 Discharged to home ambulatory, vc1 20:18 Condition: good 20:18 Discharge instructions given to patient, Instructed on discharge instructions, follow up and referral plans. urine leg bag Demonstrated understanding of instructions, follow-up care, leg bag 20:19 Patient left the ED. vc1 Signatures: Jaky Browne FNP-C FNP-Ckb Pati Mayers, RN RN vc1 Brianda Camara RN RN nj1 [facility] Deidra Blackman
[2023-12-01 07:18] VITALS: TEMP 97.6; O2SAT 100
[2023-12-01 07:20] VITALS: BP 172/82
== END 2023-11-30 20:19 | disposition home or self-care (01) ==
LOC: ER 17:32
DX: T83.098A Other mechanical complication of other urinary catheter, initial encounter (principal)
CPT/HCPCS: 99283

== ENCOUNTER 2023-12-28 20:14 | Inpatient (IN) | payer SELFPAY ==
--- OUTSIDE RECORDS SUMMARY | 2023-12-28 20:20 | XMS REPORT | Continuity of Care Document ---
Author Name Unknown Address [address] [facility] [address] [place] [address] [facility] thconnect Address [address] [facility]. [address] [place] [address] Care Team Providers Care Mental Health Advanced Practice Nurse Name Role Phone Erik Louie Jr. Primary Care Physician + [phone] Cosme Cardona DO Attending Clinician [phone] Solo CHONG, Lyubov Hilton Attending Clinician [phone] Rosalie Irizarry RN Attending Clinician [phone] Miguel CHONG, Ricky K.H. Attending Clinician + [phone] Umang Reynaga MD Attending Clinician [phone] Jerry Fields DO Attending Clinician [phone] Vimal Quiñones MD Attending Clinician [phone] Jeannette Dawn LVN Attending Clinician + [phone] PARVEZ MONROE Attending Clinician Unavailable Sergio Aponte MD Attending Clinician [phone] Bret Banda MD Attending Clinician [phone] Parvez Monroe MD Attending Clinician [phone] Solo CHONG, Lyubov Hilton Admitting Clinician [phone] Jerry Fields DO Admitting Clinician [phone] PARVEZ MONROE Admitting Clinician Unavailable Parvez Monroe MD Admitting Clinician Problems Condition Name Condition Details Condition Category Status Onset Date Resolution Date Last Treatment Date Treating Clinician Comments Source Elevated troponin I level Elevated troponin I level Disease Active 08-14 00:00: 00 [facility] Elevated brain natriureti c peptide (BNP) level Elevated brain natriureti c peptide (BNP) level Disease Active 08-14 00:00: 00 [facility] Essential hypertensi on Essential hypertensi on Disease Active 08-14 00:00: 00 [facility] ELIEZER (acute kidney injury) ELIEZER (acute kidney injury) Disease Active 08-14 00:00: 00 [facility] Type 2 diabetes mellitus with other specified complicati on Type 2 diabetes mellitus with other specified complicati on Disease Active 08-14 00:00: 00 [facility] Hypertensi on, unspecifie d type Hypertensi on, unspecifie d type Disease Active 08-13 00:00: 00 [facility] NSTEMI (non-ST elevated myocardial infarction ) NSTEMI (non-ST elevated myocardial infarction ) Disease Active 2022-04 00:00: 00 [facility] Allergies, Adverse Reactions, Alerts Allergy Name Allergy Type Status Severity Reaction(s) Onset Date Inactive Date Treating Clinician Comments Source NO KNOWN ALLERGIE S Drug Class Active [facility] Social History Social Habit Start Date Stop Date Quantity Comments Source [facility] of Social function 2023-08-23 00:00:00 2023-08-23 00:00:00 [facility] Alcohol intake 2023-08-22 00:00:00 2023-08-22 00:00:00 Lifetime non-drinker (finding) [facility] Tobacco use and exposure 2023-04-21 00:00:00 2023-04-21 00:00:00 Smokeless tobacco non-user [facility] Sex Assigned At 1965 00:00:00 1965 00:00:00 [facility] Smoking Status Start Date Stop Date Source Never smoked tobacco [facility] Medications Ordered Medication Name Filled Medication Name Start Date Stop Date Current Medication? Ordering Clinician Indication Dosage Frequency Signature (SIG) Comments Components Source acarbose 25 mg tablet 08-23 00:00: 00 Yes [id number] 25mg Take 1 tablet by mouth in the morning and 1 tablet at noon and 1 tablet in the evening. Take with meals. [facility] metFORMIN 500 mg 24 hr tablet 08-23 00:00: 09-23 04:59 :00 No [id number] 500mg Take 1 tablet by mouth in the morning and 1 tablet in the evening. Take with meals. Do all this for 30 days. [facility] amLODIPine 10 mg tablet 08-23 00:00: 09-23 04:59 :00 No [id number] 10mg Take 1 tablet by mouth in the morning for 30 days. [facility] tamsulosin 0.4 mg 24 hr capsule 08-23 00:00: 09-23 04:59 :00 No [id number] .4mg Take 1 capsule by mouth in the morning for 30 days. [facility] levoFLOXaci n 500 mg tablet 08-23 00:00: 00 08-26 04:59 :00 No [id number] 500mg Take 1 tablet by mouth every 24 (twenty-fo ur) hours for 2 days. [facility] cefTRIAXone (ROCEPHIN) 1,000 mg in [...] Urine
D uration of therapy: Once (ED) [facility] D5W IV infusion 1,000 mL 08-22 15:00: 00 08-22 16:53 :22 No 1000mL at 50 mL/hr, IV Infusion, ONCE, 1 dose, On Wed08/23/23 at 1000, Routine [facility] amLODIPine (NORVASC) tablet 5 mg 08-22 14:00: 00 Yes 5mg 5 mg, Oral, DAILY, First dose on Wed08/23/23 at 0900, Until Discontinu ed, Routine [facility] D5W 0.45% NaCl (1/2NS) IV infusion 1,000 mL 08-22 02:29: 00 08-23 17:53 :57 No 1000mL at 75 mL/hr, 1,000 mL, IV Infusion, CONTINUOUS , Starting on Wed08/22/23 at 2130, Until Wed08/24/23 at 1253, Routine [facility] D5W IV infusion 1,000 mL 08-21 21:30: 00 08-22 02:27 :22 No 1000mL at 100 mL/hr, IV Infusion, CONTINUOUS , Starting on Wed08/22/23 at 1630, Until Wed08/22/23 at 2127, Routine [facility] Sliding Scale Insulin - Lispro (HumaLOG) 08-21 21:00: 00 Yes Subcutaneo us, Q4H, First dose on Wed08/22/23 at 1600, Until Discontinu ed, Routine [facility] glucagon (GLUCAGEN DIAGNOSTIC KIT) injection 1 mg 08-21 20:17: 12 Yes 1mg 1 mg, Intramuscu lar, PRN, Starting on Wed08/22/23 at 1517, Until Discontinu ed, HAO, Blood Glucose < or = 70 mg/dL and patient is NPO, unable to swallow or has mental changes. [facility] dextrose 50 % in water (D50W) injection 25 mL 08-21 20:17: 12 Yes 25mL 25 mL, Slow IV Push, PRN, Starting on Wed08/22/23 at 1517, Until Discontinu ed, HAO, Blood Glucose < or = 70 mg/dL and patient is NPO, unable to swallow or has mental status changes. [facility] D5W IV infusion 1,000 mL 08-21 17:45: 00 08-21 20:16 :11 No 1000mL at 100 mL/hr, IV Infusion, CONTINUOUS , Starting on Wed08/22/23 at 1245, Until Wed08/22/23 at 1516, Routine [facility] tamsulosin (FLOMAX) capsule 0.4 mg 08-21 14:00: 00 Yes .4mg 0.4 mg, Oral, DAILY, First dose on Wed08/22/23 at 0900, Until Discontinu ed, Routine [facility] docusate (COLACE) capsule 100 mg 08-21 13:00: 00 Yes 100mg 100 mg, Oral, BID, First dose on Wed08/22/23 at 0800, Until Discontinu ed, Routine [facility] heparin (porcine) injection 5,000 Units 08-21 13:00: 00 Yes 5000U 5,000 Units, Subcutaneo us, Q12H, First dose on Wed08/22/23 at 0800, Until Discontinu ed, Routine [facility] D5W 0.45% NaCl (1/2NS) IV infusion 1,000 mL 08-21 06:15: 00 08-21 16:44 :38 No 1000mL at 100 mL/hr, 1,000 mL, IV Infusion, CONTINUOUS , Starting on Wed08/22/23 at 0115, Until Wed08/22/23 at 1144, Routine [facility] D5W 0.45% NaCl (1/2NS) Bolus infusion 1,000 mL 08-21 06:00: 00 08-21 06:21 :00 No 1000mL at 999 mL/hr, 1,000 mL, IV Infusion, ONCE, 1 dose, On Wed08/22/23 at 0100, Routine [facility] NaCl 0.9% (NS) bolus infusion 1,000 mL 08-21 04:15: 00 08-21 05:05 :00 No 1000mL at 999 mL/hr, 1,000 mL, IV Infusion, ONCE, 1 dose, On 08/21/23 at 2315, STAT [facility] bisacodyL (DULCOLAX) tablet 10 mg 08-21 04:02: 51 Yes 10mg 10 mg, Oral, QDAILYPRN, Starting on 08/21/23 at 2302, Until Discontinu ed, Routine, Constipati on [facility] ondansetron (ZOFRAN (PF)) injection 4 mg 08-21 04:02: 17 Yes 4mg 4 mg, Slow IV Push, Q6HPRN, Starting on 08/21/23 at 2302, Until Discontinu ed, Routine, Nausea and Vomiting (N/V) [facility] FENTanyl PF (SUBLIMAZE (PF)) injection 12.5 mcg 08-21 04:02: 09 08-22 04:01 :09 No 12.5ug 12.5 mcg, Slow IV Push, Q6HPRN, Starting on 08/21/23 at 2302, Until 08/22/23 at 2301, Routine, Pain (scale 7-10), Pain (scale 4-6) [facility] acetaminoph en (TYLENOL) tablet 650 mg 08-21 04:01: 56 Yes 650mg 650 mg, Oral, Q6HPRN, Starting on 08/21/23 at 2301, Until Discontinu ed, Routine, Pain (scale 1-3) [facility] magnesium citrate solution 296 mL 08-21 01:45: 00 08-21 01:25 :00 No 296mL 296 mL, Oral, ONCE, 1 dose, On 08/21/23 at 2045, Routine [facility] amLODIPine 5 mg tablet 08-16 00:00: 00 08-23 00:00 :00 No [id number] 5mg Take 1 tablet by mouth in the morning for 30 days. [facility] lactulose (CEPHULAC) solution 45 mL 08-15 15:45: 00 08-15 15:21 :00 No 45mL 45 mL, Oral, ONCE, 1 dose, On Wed08/16/23 at 1045, Routine [facility] amLODIPine (NORVASC) tablet 5 mg 08-15 14:00: 00 Yes 5mg 5 mg, Oral, DAILY, First dose on Wed08/16/23 at 0900, Until Discontinu ed, Routine [facility] sennosides (SENOKOT) tablet 8.6 mg 08-15 14:00: 00 Yes 8.6mg 8.6 mg, Oral, DAILY, First dose on Wed08/16/23 at 0900, Until Discontinu ed, Routine [facility] losartan (COZAAR) tablet 25 mg 08-15 14:00: 00 Yes 25mg 25 mg, Oral, DAILY, First dose (after last modificati on) on Wed08/16/23 at 0900, Until Discontinu ed, Routine [facility] docusate (COLACE) capsule 100 mg 08-15 13:00: 00 Yes 100mg 100 mg, Oral, BID, First dose on Wed08/16/23 at 0800, Until Discontinu ed, Routine [facility] lactulose (CEPHULAC) solution 30 mL 08-15 10:00: 00 08-15 09:33 :00 No 30mL 30 mL, Oral, ONCE, 1 dose, On Wed08/16/23 at 0500, Routine [facility] metFORMIN 500 mg 24 hr tablet 08-15 00:00: 00 08-23 00:00 :00 No [id number] 500mg Take 1 tablet by mouth in the morning and 1 tablet in the evening. Take with meals. Do all this for 30 days. [facility] acarbose 25 mg tablet 08-15 00:00: 00 08-23 00:00 :00 No [id number] 25mg Take 1 tablet by mouth in the morning and 1 tablet at noon and 1 tablet in the evening. Take with meals. Do all this for 30 days. [facility] pioglitazon e 15 mg tablet 08-15 00:00: 00 08-23 00:00 :00 No [id number] 15mg Take 1 tablet by mouth in the morning for 30 days. [facility] tamsulosin 0.4 mg 24 hr capsule 08-15 00:00: 00 08-23 00:00 :00 No [id number] .4mg Take 1 capsule by mouth in the morning for 30 days. [facility] losartan 25 mg tablet 08-15 00:00: 00 08-23 00:00 :00 No [id number] 25mg Take 1 tablet by mouth in the morning for 30 days. [facility] glipiZIDE (GLUCOTROL) tablet 5 mg 08-14 21:30: 00 Yes 5mg 5 mg, Oral, BIDAC, First dose on 08/15/23 at 1630, Until Discontinu ed, Routine [facility] KCL (KLOR-CON M20) tablet 40 mEq 08-14 21:30: 00 08-14 21:21 :00 No 40meq 40 mEq, Oral, ONCE, 1 dose, On 08/15/23 at 1630, Routine [facility] pioglitazon e (ACTOS) tablet 7.5 mg 08-14 17:00: 00 08-15 12:47 :51 No 7.5mg 7.5 mg, Oral, DAILY, First dose on 08/15/23 at 1200, Until Discontinu ed, Routine [facility] tamsulosin (FLOMAX) capsule 0.4 mg 08-14 15:49: 00 Yes .4mg 0.4 mg, Oral, DAILY, First dose on 08/15/23 at 1100, Until Discontinu ed, Routine [facility] amLODIPine (NORVASC) tablet 10 mg 08-14 14:00: 00 08-14 15:51 :30 No 10mg 10 mg, Oral, DAILY, First dose on 08/15/23 at 0900, Until Discontinu ed, Routine [facility] heparin (porcine) injection 5,000 Units 08-14 03:00: 00 08-14 06:07 :44 No 5000U 5,000 Units, Subcutaneo us, Q8H, First dose on 08/14/23 at 2200, Until Discontinu ed, Routine [facility] Sliding Scale Insulin - Lispro (HumaLOG) 08-14 02:00: 00 08-14 18:06 :14 No Subcutaneo us, TID MEALS+HS, First dose on 08/14/23 at 2100, Until Discontinu ed, Routine [facility] glucagon (GLUCAGEN DIAGNOSTIC KIT) injection 1 mg 08-14 00:36: 37 Yes 1mg 1 mg, Intramuscu lar, PRN, Starting on 08/14/23 at 1936, Until Discontinu ed, HAO, Blood Glucose < or = 70 mg/dL and patient is NPO, unable to swallow or has mental changes. [facility] dextrose 50 % in water (D50W) injection 25 mL 08-14 00:36: 37 Yes 25mL 25 mL, Slow IV Push, PRN, Starting on 08/14/23 at 1936, Until Discontinu ed, HAO, Blood Glucose < or = 70 mg/dL and patient is NPO, unable to swallow or has mental status changes. [facility] acetaminoph en (TYLENOL) tablet 650 mg 08-14 00:36: 24 Yes 650mg 650 mg, Oral, Q6HPRN, Starting on 08/14/23 at 1936, Until Discontinu ed, Routine, Pain (scale 1-3) [facility] aspirin chewable tablet 324 mg 08-13 23:15: 00 08-13 22:56 :00 No [id number] 324mg 324 mg, Oral, ONCE, 1 dose, On 08/14/23 at 1815, HAO [facility] lidocaine 2% viscous (LIDOCAINE VISCOUS) 2 % solution 15 mL 08-13 23:00: 00 08-13 22:10 :00 No [id number] 15mL 15 mL, Oral, ONCE, 1 dose, On 08/14/23 at 1800, Routine [facility] KCL (KLOR-CON M20) tablet 20 mEq 08-13 22:30: 00 08-13 22:59 :00 No [id number] 20meq 20 mEq, Oral, ONCE, 1 dose, On 08/14/23 at 1730, [facility] metoprolol tartrate (LOPRESSOR) tablet 50 mg 08-13 22:00: 00 08-13 22:58 :00 No [id number] 50mg 50 mg, Oral, ONCE, 1 dose, On 08/14/23 at 1700, [facility] iopamidol (ISOVUE 370-500 mL) injection 80 mL 08-13 21:30: 00 08-13 21:45 :00 No [id number] 80mL 80 mL, Intravenou s, ONCE, 1 dose, On 08/14/23 at 1645, Routine [facility] acetaminoph en (TYLENOL) tablet 650 mg 08-13 21:15: 00 08-13 22:57 :00 No [id number] 650mg 650 mg, Oral, ONCE, 1 dose, On 08/14/23 at 1615, [facility] amLODIPine (NORVASC) tablet 5 mg 08-13 21:15: 00 08-13 22:58 :00 No [id number] 5mg 5 mg, Oral, ONCE, 1 dose, On 08/14/23 at 1615, [facility] NaCl 0.9% (NS) bolus infusion 1,000 mL 08-13 21:15: 00 08-13 21:50 :00 No [id number] 1000mL at 999 mL/hr, 1,000 mL, IV Infusion, ONCE, 1 dose, On 08/14/23 at 1615, [facility] insulin NPH (HUMULIN N) injection 9 Units 2022-04 14:00: 00 Yes 9U 9 Units, Subcutaneo us, QAM WITH BREAKFAST, First dose (after last modificati on) on Wed04/24/23 at 0800, Until Discontinu ed, Routine [facility] losartan 25 mg tablet 2022-04 00:00: 00 08-15 00:00 :00 No [id number] 25mg Take 1 tablet by mouth in the morning. [facility] tamsulosin (FLOMAX) 0.4 mg 24 hr capsule 2022-04 00:00: 00 08-15 00:00 :00 No [id number] .4mg Take 1 capsule by mouth in the morning. [facility] metFORMIN 500 mg tablet 2022-04 00:00: 00 05-23 05:59 :00 No [id number] Take 1 tablet by mouth 2 (two) times daily with meals for 7 days, THEN 2 tablets 2 (two) times daily with meals for 21 days. [facility] insulin lispro (human) (HumaLOG U-100) injection 3 Units 2022-04 23:00: 00 Yes 3U 3 Units, Subcutaneo us, TID MEALS, First dose (after last modificati on) on Wed04/23/23 at 1700, Until Discontinu ed, Routine [facility] insulin NPH (HUMULIN N) injection 5 Units 2022-04 23:00: 00 Yes 5U 5 Units, Subcutaneo us, QPM, First dose (after last modificati on) on Wed04/23/23 at 1700, Until Discontinu ed, Routine [facility] losartan (COZAAR) tablet 25 mg 2022-04 15:00: 00 Yes 25mg 25 mg, Oral, DAILY, First dose on Wed04/23/23 at 0900, Until Discontinu ed, Routine [facility] Potassium Bicarb-Citr ic Acid (EFFER-K) effervescen t tablet 40 mEq 2022-04 13:00: 00 04-23 13:33 :00 No 40meq 40 mEq, Oral, ONCE, 1 dose, On Wed04/23/23 at 0700, Routine [facility] ramelteon (ROZEREM) tablet 8 mg 2022-04 10:45: 00 04-23 10:51 :00 No 8mg 8 mg, Oral, ONCE NOW, 1 dose, On Wed04/23/23 at 0500, Routine [facility] Blood-Gluco se Meter (ACCU-CHEK GUIDE GLUCOSE METER) [facility] 2022-04 00:00: 00 Yes [id number] Use as directed [facility] lancets 33 gauge [facility] 2022-04 00:00: 00 Yes [id number] Use as directed [facility] blood sugar diagnostic (ACCU-CHEK GUIDE TEST STRIPS) strip 2022-04 00:00: 00 Yes [id number] Use as directed [facility] pioglitazon e 15 mg tablet 2022-04 00:00: 00 08-15 00:00 :00 No [id number] 7.5mg Take 0.5 tablets by mouth in the morning. [facility] acarbose 25 mg tablet 2022-04 00:00: 00 08-15 00:00 :00 No [id number] 25mg Take 1 tablet by mouth in the morning and 1 tablet at noon and 1 tablet in the evening. Take with meals. [facility] atorvastati n 80 mg tablet 2022-04 00:00: 00 05-24 05:59 :00 No [id number] 80mg Take 1 tablet by mouth at bedtime for 30 days. [facility] glipiZIDE 5 mg tablet 2022-04 00:00: 00 05-24 05:59 :00 No [id number] 5mg Take 1 tablet by mouth 2 (two) times daily before breakfast and dinner for 30 days. [facility] enoxaparin (LOVENOX) injection 40 mg 2022-04 15:00: 00 Yes 40mg 40 mg, Subcutaneo us, DAILY, First dose on Wed04/22/23 at 0900, Until Discontinu ed, Routine [facility] insulin NPH (HUMULIN N) injection 8 Units 2022-04 14:00: 00 04-23 19:10 :37 No 8U 8 Units, Subcutaneo us, QAM WITH BREAKFAST, First dose on Wed04/22/23 at 0800, Until Discontinu ed, Routine [facility] insulin NPH (HUMULIN N) injection 4 Units 2022-04 23:00: 00 04-23 19:10 :37 No 4U 4 Units, Subcutaneo us, QPM, First dose on Wed04/21/23 at 1700, Until Discontinu ed, [facility]ine [facility] lispro (human) (HumaLOG U-100) injection 2 Units 2022-04 23:00: 00 04-23 19:10 :37 No 2U 2 Units, Subcutaneo us, TID MEALS, First dose (after last modificati on) on Wed04/21/23 at 1700, Until Discontinu ed, Routine [facility] NaCl 0.9% (NS) IV infusion 250 mL 2022-04 21:15: 00 04-22 20:03 :10 No [id number] 250mL at 20 mL/hr, IV Infusion, CONTINUOUS , Starting on Wed04/21/23 at 1515, Until Wed04/22/23 at 1403, Routine
To keep vein open
[facility] perflutren lipid microsphere s (DEFINITY) injection 2 mL 2022-04 21:00: 00 04-21 20:15 :00 No [id number] 2mL 2 mL, IV Push, ONCE, 1 dose, On Wed04/21/23 at 1500, Routine [facility] atropine injection 1 mg 2022-04 21:00: 00 04-21 20:44 :00 No [id number] 1mg 1 mg, Slow IV Push, ONCE, 1 dose, On Wed04/21/23 at 1500, Routine [facility] DOBUTamine (DOBUTREX) 250 mg/250 mL RTU infusion 2022-04 20:13: 51 04-22 20:03 :10 No [id number] 5ug/kg/ min 5 mcg/kg/min ?59 kg (17.7 [...] the Dobutamine infusion. (see Adjunctive Therapy)<b r> [facility] perflutren protein-A microsphr (OPTISON) injection 3 mL 2022-04 17:15: 00 04-21 15:22 :00 No [id number] 3mL 3 mL, IV Push, ONCE, 1 dose, On Wed04/21/23 at 1115, Routine [facility] potassium chloride in water 10 mEq/100 mL RTU 10 mEq 2022-04 17:00: 00 04-21 20:59 :00 No 10meq 10 mEq, IV Piggyback, Q1H, 4 doses, First dose (after last reorder) on Wed04/21/23 at 1100, Last dose on Wed04/21/23 at 1400, Administer over 60 Minutes, 100 mL [facility] tamsulosin (FLOMAX) capsule 0.4 mg 2022-04 15:00: 00 Yes .4mg 0.4 mg, Oral, DAILY, First dose on Wed04/21/23 at 0900, Until Discontinu ed, Routine [facility] aspirin chewable tablet 81 mg 2022-04 15:00: 00 04-22 16:28 :38 No 81mg 81 mg, Oral, DAILY, First dose on Wed04/21/23 at 0900, Until Discontinu ed, Routine [facility] aspirin tablet 325 mg 2022-04 15:00: 00 04-21 06:21 :21 No 325mg 325 mg, Oral, DAILY, First dose on Wed04/21/23 at 0900, Until Discontinu ed, Routine [facility] Sliding Scale Insulin - Lispro (HumaLOG) 2022-04 14:00: 00 Yes Subcutaneo us, TID MEALS+HS, First dose on Wed04/21/23 at 0800, Until Discontinu ed, Routine [facility] magnesium sulfate in water 2 gram/50 mL (4 %) infusion 2 g 2022-04 12:30: 00 04-21 15:11 :00 No 2g 2 g, IV Piggyback, Administer over 60 Minutes, ONCE, 1 dose, On Wed04/21/23 at 0630, Routine [facility] Potassium Bicarb-Citr ic Acid (EFFER-K) effervescen t tablet 40 mEq 2022-04 12:30: 00 04-21 12:36 :00 No 40meq 40 mEq, Oral, ONCE, 1 dose, On Wed04/21/23 at 0630, [facility]ine [facility] insulin glargine (LANTUS U-100) injection 9 Units 2022-04 07:45: 00 04-21 21:08 :08 No .15U/kg /d 9 Units (rounded from 8.745 Units = 0.15 Units/kg/d ay ?58.3 kg), Subcutaneo us, QHS, First dose (after last modificati on) on Wed04/21/23 at 0145, Until Discontinu ed, Routine [facility] atorvastati n (LIPITOR) tablet 80 mg 2022-04 06:30: 00 Yes 80mg 80 mg, Oral, QHS, First dose on Wed04/21/23 at 0030, Until Discontinu ed, Routine [facility] dextrose 50 % in water (D50W) injection 25 mL 2022-04 06:24: 50 Yes 25mL 25 mL, Slow IV Push, PRN, Starting on Wed04/21/23 at 0024, Until Discontinu ed, HAO, Blood Glucose < or = 70 mg/dL and patient is NPO, unable to swallow or has mental status changes. [facility] acetaminoph en (TYLENOL) tablet 650 mg 2022-04 05:53: 21 Yes 650mg 650 mg, Oral, Q6HPRN, Starting on Wed04/20/23 at 2353, Until Discontinu ed, Routine, Pain (scale 1-3) [facility] NaCl 0.9% (NS) bolus infusion 1,000 mL 2022-04 04:00: 00 04-21 03:45 :00 No 1000mL at 999 mL/hr, 1,000 mL, IV Infusion, ONCE, 1 dose, On Wed04/20/23 at 2200, STAT [facility] clopidogreL (PLAVIX) 300 mg tablet 300 mg 2022-04 03:30: 00 04-21 02:50 :00 No 300mg 300 mg, Oral, ONCE, 1 dose, On Wed04/20/23 at 2130, HAO [facility] HEPARIN SODIUM (PORCINE) 1,000 UNIT/ML BOLUS ACS ORDER SET 2022-04 02:45: 00 04-21 02:53 :00 No 60U/kg 3,540 Units (60 Units/kg ?59 kg), IV Push, ONCE, 1 dose, On Wed04/20/23 at 2044, HAO [facility] heparin 25,000 Units/250 mL (Premixed [...] INITIAL BOLUS OR INITIAL INFUSION RATE.
[facility] Vital Signs Vital Name Observation Time Observation Value Comments S ource Systolic blood pressure 2023-08-24 13:02:00 150 mm[Hg] [facility] Diastolic blood pressure 2023-08-24 13:02:00 88 mm[Hg] [facility] Heart rate 2023-08-24 13:02:00 79 /min [facility] Body temperature 2023-08-24 13:02:00 36.44 Deya [facility] Respiratory rate 2023-08-24 13:02:00 14 /min [facility] Oxygen saturation in Arterial blood by Pulse oximetry 2023-08-24 13:02:00 98 /min [facility] Body weight 2023-08-24 08:43:00 58.469 kg [facility] BMI 2023-08-24 08:43:00 22.83 kg/m2 [facility] Body height 2023-08-22 04:52:00 160 cm [facility] Systolic blood pressure 2023-08-16 16:53:00 154 mm[Hg] [facility] Diastolic blood pressure 2023-08-16 16:53:00 94 mm[Hg] [facility] Heart rate 2023-08-16 16:53:00 82 /min [facility] Body temperature 2023-08-16 16:53:00 36.61 Deya [facility] Respiratory rate 2023-08-16 16:53:00 16 /min [facility] Oxygen saturation in Arterial blood by Pulse oximetry 2023-08-16 16:53:00 99 /min [facility] Body weight 2023-08-16 09:56:00 56.473 kg [facility] BMI 2023-08-16 09:56:00 22.05 kg/m2 [facility] Body height 2023-08-15 04:07:00 160 cm [facility] Systolic blood pressure 2023-04-23 18:11:00 141 mm[Hg] [facility] Diastolic blood pressure 2023-04-23 18:11:00 80 mm[Hg] [facility] Heart rate 2023-04-23 18:11:00 101 /min [facility] Body temperature 2023-04-23 18:11:00 35.89 Deya [facility] Respiratory rate 2023-04-23 18:11:00 18 /min [facility] Oxygen saturation in Arterial blood by Pulse oximetry 2023-04-23 18:11:00 98 /min [facility] Body weight 2023-04-22 09:57:00 57.561 kg [facility] BMI 2023-04-22 09:57:00 22.48 kg/m2 [facility] Body height 2023-04-21 20:00:00 160 cm [facility] Procedures Procedure Date / Time Performed Performing Clinician Source POCT GLUCOSE (AUTOMATED) 2023-08-24 16:13:00 Jami Banda [facility] POCT GLUCOSE (AUTOMATED) 2023-08-24 12:34:00 Jami Banda [facility] BASIC METABOLIC PANEL (NA, K, CL, CO2, GLUCOSE, BUN, CREATININE, CA) 2023-08-24 08:42:00 Jerry Fields [facility] CBC WITH DIFF 2023-08-24 08:42:00 Jerry Fields [facility] POCT GLUCOSE (AUTOMATED) 2023-08-24 05:46:00 Jami Banda [facility] BASIC METABOLIC PANEL (NA, K, CL, CO2, GLUCOSE, BUN, CREATININE, CA) 2023-08-24 01:37:00 Jerry Fields [facility] POCT GLUCOSE (AUTOMATED) 2023-08-24 01:27:00 Jami Banda [facility] POCT GLUCOSE (AUTOMATED) 2023-08-23 21:29:00 Jami Banda [facility] BASIC METABOLIC PANEL (NA, K, CL, CO2, GLUCOSE, BUN, CREATININE, CA) 2023-08-23 17:41:00 Jerry Fields [facility] POCT GLUCOSE (AUTOMATED) 2023-08-23 16:42:00 Jami Banda [facility] POCT GLUCOSE (AUTOMATED) 2023-08-23 12:36:00 Jami Banda [facility] POCT GLUCOSE (AUTOMATED) 2023-08-23 09:09:00 Jami Banda [facility] MAGNESIUM 2023-08-23 08:23:00 Jerry Fields [facility] BASIC METABOLIC PANEL (NA, K, CL, CO2, GLUCOSE, BUN, CREATININE, CA) 2023-08-23 08:23:00 Jerry Fields [facility] CBC WITH DIFF 2023-08-23 08:23:00 Jerry Fields [facility] POCT GLUCOSE (AUTOMATED) 2023-08-23 04:52:00 Jami Banda [facility] POCT GLUCOSE (AUTOMATED) 2023-08-23 00:42:00 Jami Banda [facility] BASIC METABOLIC PANEL (NA, K, CL, CO2, GLUCOSE, BUN, CREATININE, CA) 2023-08-23 00:38:00 Jerry Fields [facility] POCT GLUCOSE (AUTOMATED) 2023-08-22 21:18:00 Jami Banda [facility] URIC ACID 2023-08-22 19:21:00 Alyssa Cain [facility] PROTEIN CREAT RATIO URINE RANDOM 2023-08-22 19:21:00 Alyssa Cain [facility] CORTISOL AM 2023-08-22 19:20:00 Alyssa Cain [facility] BASIC METABOLIC PANEL (NA, K, CL, CO2, GLUCOSE, BUN, CREATININE, CA) 2023-08-22 13:21:00 Lyubov Banda [facility] LACTIC ACID WHOLE BLOOD 2023-08-22 09:16:00 Loreta Banda mmad [facility] MAGNESIUM 2023-08-22 08:30:00 Lyubov Banda [facility] TROPONIN I 2023-08-22 08:30:00 Lyubov Banda [facility] CBC WITH DIFF 2023-08-22 08:30:00 Lyubov [facility] N-TERMINAL PRO-BNP 2023-08-22 08:30:00 Lyubov Banda [facility] PHOSPHORUS 2023-08-22 04:01:00 Lyubov Banda [facility] BASIC METABOLIC PANEL (NA, K, CL, CO2, GLUCOSE, BUN, CREATININE, CA) 2023-08-22 04:01:00 Cosme Cardona [facility] URINALYSIS 2023-08-22 01:52:00 Cosme Cardona [facility] CT ABDOMEN PELVIS WO CONTRAST 2023-08-22 01:26:17 Cosme Cardona [facility] CREATINE KINASE 2023-08-22 01:24:00 Lyubov Banda [facility] LIPASE 2023-08-22 01:24:00 [facility] COMP. METABOLIC PANEL ([id number]) 2023-08-22 01:24:[address] [facility] CBC WITH DIFF 2023-08-22 01:24:00 Singer [facility] POCT GLUCOSE (AUTOMATED) 2023-08-16 21:51:00 Yue Fields [facility] POCT GLUCOSE (AUTOMATED) 2023-08-16 16:54:00 Yue Fields [facility] POCT GLUCOSE (AUTOMATED) 2023-08-16 12:45:00 Yue Fields [facility] POCT GLUCOSE (AUTOMATED) 2023-08-16 02:06:00 Yue Fields [facility] POCT GLUCOSE (AUTOMATED) 2023-08-15 21:29:00 Yue Fields [facility] POCT GLUCOSE (AUTOMATED) 2023-08-15 16:39:00 Yue Fields [facility] POCT GLUCOSE (AUTOMATED) 2023-08-15 13:08:00 Yue Fields [facility] TROPONIN I 2023-08-15 10:41:00 Juventino [facility] BASIC METABOLIC PANEL (NA, K, CL, CO2, GLUCOSE, BUN, CREATININE, CA) 2023-08-15 10:41:00 [facility] CBC WITH DIFF 2023-08-15 10:41:[address] [facility] PROSTATIC SPECIFIC ANTIGEN 2023-08-15 05:32:00 [facility]23-08-15 05:32:00 [facility] (AUTOMATED) 2023-08-15 04:03:00 Yue Fields [facility] URINALYSIS 2023 22:15:00 Umang Reynaga [facility] XR CHEST 1 VW 2023 21:46:00 Umang Reynaga [facility] CT ABDOMEN PELVIS W CONTRAST 2023 21:34:55 Rosmery [facility] CT TRAUMA HEAD WO CONTRAST 2023 21:33:20 Rosmery [facility] HB ECG ROUTINE & RHYTHM STRIP 2023 21:10:12 Rosmery [facility] PHOSPHORUS 2023 20:47:[address] [facility] CREATINE KINASE 2023 20:47:00 Umang Reynaga [facility] LIPASE 2023 20:47:[address] [facility] MAGNESIUM 2023 20:47:[address] [facility] BETA HYDROXY-BUTYRATE 2023 20:47:00 Farida Reynaga [facility] TROPONIN I 2023 20:47:00 [facility] COMP. METABOLIC PANEL ([id number]) 2023 20:47:00 Rosmery [facility] CBC WITH DIFF 2023 20:47:00 Umang Reynaga [facility] GLYCOSYLATED HEMOGLOBIN (A1C) 2023 20:47:00 Jerry Fields [facility] N-TERMINAL PRO-BNP 2023 20:47:00 Michael Reynaga [facility] ACUTE CARE VENOUS BLOOD GAS 2023 20:46:00 Rosmery [facility] LACTIC ACID WHOLE BLOOD 2023 20:46:00 Kian Reynaga [facility] POCT GLUCOSE(AGE >30DAYS) 2023 20:26:00 Rosmery [facility] POCT GLUCOSE (AUTOMATED) 2023 20:23:00 Rosmery [facility] POCT GLUCOSE (AUTOMATED) 2023-04-23 18:09:00 Brien Banda [facility] POCT GLUCOSE (AUTOMATED) 2023-04-23 15:32:00 Brien Banda [facility] MAGNESIUM 2023-04-23 09:09:00 Loghin, Chet Univer [facility] BASIC METABOLIC PANEL (NA, K, CL, CO2, GLUCOSE, BUN, CREATININE, CA) 2023-04-23 09:09:00 Chet Echavarria [facility] POCT GLUCOSE (AUTOMATED) 2023-04-23 02:56:00 Brien Banda [facility] POCT GLUCOSE (AUTOMATED) 2023-04-23 00:32:00 Solo [facility] POCT GLUCOSE (AUTOMATED) 2023-04-22 22:43:00 Solo [facility] POCT GLUCOSE (AUTOMATED) 2023-04-22 20:36:00 Solo [facility] POCT GLUCOSE (AUTOMATED) 2023-04-22 17:44:00 Solo [facility] POCT GLUCOSE (AUTOMATED) 2023-04-22 13:41:00 Solo [facility] MAGNESIUM 2023-04-22 10:37:00 Daja Aaliyah [facility] BASIC METABOLIC PANEL (NA, K, CL, CO2, GLUCOSE, BUN, CREATININE, CA) 2023-04-22 10:37:00 Daja Aaliyah [facility] CBC WITH DIFF 2023-04-22 10:37:00 Daja Aaliyah [facility] POCT GLUCOSE (AUTOMATED) 2023-04-22 03:32:00 Solo [facility] POCT GLUCOSE (AUTOMATED) 2023-04-22 01:34:00 Solo [facility] COMPLETE ECHOCARDIOGRAM DOBUTAMINE STRESS TEST W CONTRAST 2023-04-21 21:15:00 Jeanine Montana [facility] POCT GLUCOSE (AUTOMATED) 2023-04-21 17:36:00 Solo [facility] ACTIVATED PARTIAL THRMPLAS JERMAINE 2023-04-21 16:47:00 Sergio Aponet [facility] TRANSTHORACIC ECHO (TTE) COMPLETE W/ CONTRAST 2023-04-21 15:26:00 Kylie Fuchs [facility] TROPONIN I 2023-04-21 12:39:00 Víctor Fuchs Noel [facility] POCT GLUCOSE (AUTOMATED) 2023-04-21 09:39:00 Brien Banda [facility] MAGNESIUM 2023-04-21 09:10:00 Víctor Fuchs Noel [facility] BASIC METABOLIC PANEL (NA, K, CL, CO2, GLUCOSE, BUN, CREATININE, CA) 2023-04-21 09:10:00 Kylie Fuchs Noel [facility] LIPID PANEL ([id number])(TOTAL CHOLESTEROL, TRIGLYCERIDES, HDL) 2023-04-21 09:10:00 Kylie Fuchs Noel [facility] CBC WITH DIFF 2023-04-21 09:10:00 Víctor Fuchs [facility] ACTIVATED PARTIAL THRMPLAS JERMAINE 2023-04-21 09:10:00 Sergio Aponte [facility] XR CHEST 1 VW 2023-04-21 06:53:47 Víctor Fuchs [place] [facility] TROPONIN I 2023-04-21 06:32:00 Víctor Fuchs [place] Noel [facility] IRON PANEL 2023-04-21 06:32:00 Víctor Fuchs [place] [facility] N-TERMINAL PRO-BNP 2023-04-21 06:32:00 Kylie Fuchs Noel [facility] CRITICAL CARE 2023-04-21 02:54:15 Sergio Aponte [facility] PROTHROMBIN TIME / INR 2023-04-21 02:44:00 Enrique Aponte [facility] ACTIVATED PARTIAL THRMPLAS JERMAINE 2023-04-21 02:44:00 Sergio Aponte [facility] URINALYSIS 2023-04-21 02:33:00 Sergio Aponte [facility] PROTEIN CREAT RATIO URINE RANDOM 2023-04-21 02:33:00 Tavia Fuchsmad Noel [facility] URINE DRUG (IMMUNOASSAY) - COMPREHENSIVE DRUG SCREEN W/O REFLEX 2023-04-21 02:33:00 Sergio Aponte [facility] PHOSPHORUS 2023-04-21 01:55:00 Víctor Fuchs Noel [facility] FERRITIN SERUM 2023-04-21 01:55:00 Víctor Fuchs Noel [facility] TROPONIN I 2023-04-21 01:55:00 [facility] THYROID STIMULATING HORMONE 2023-04-21 01:55:00 Kylie Fuchs Noel [facility] COMP. METABOLIC PANEL ([id number]) 2023-04-21 01:55:00 Sergio Aponte [facility] ETHANOL 2023-04-21 01:55:00 [facility] CBC WITH DIFF 2023-04-21 01:55:00 Sergio Aponte [facility] GLYCOSYLATED HEMOGLOBIN (A1C) 2023-04-21 01:55:00 Kylie Fuchs [facility] POCT GLUCOSE (AUTOMATED) 2023-04-21 01:54:00 Yue Aponte [facility] EKG-12 LEAD 2023-04-21 01:51:41 [facility] Start Date/Time End Date/Time Encounter Type Admission Type Attending Clinicians Care Facility Care Department Encounter ID Source 2023-08-21 19:47:00 2023-08-24 16:32:00 Hospital Encounter Cosme Cardona Mohammad [facility]. [facility] 1..840.114 350.1.13.10 4.2.7.2.686 [id number] [facility] 2023-08-20 00:00:00 2023-08-20 00:00:00 Patient Outreach Rosalie Irizarry [id number] 350.1.13.10 4.2.7.2.686 [id number] [facility] 2023-08-17 00:00:00 2023-08-17 00:00:00 Telephone Ricky Rivera [facility] [id number] 350.1.13.10 4.2.7.2.686 [id number] [facility] 2023 14:42:00 2023-08-16 18:40:00 Hospital Encounter Umang Reynaga David Oville, Jelani [facility] [id number] 350.1.13.10 4.2.7.2.686 [id number] [facility] 2023-04-27 00:00:00 2023-04-27 00:00:00 Transition of Care Jeannette Dawn JANIS BAEZ [id number] 350.1.13.10 4.2.7.2.686 [id number] [facility] 2023-04-20 19:48:00 2023-04-23 19:54:00 Inpatient X PARVEZ MONROE [facility] [id number] [facility] 2023-04-20 19:48:00 2023-04-23 19:54:00 Hospital Encounter Sergio Aponte Rizwan Dacso, Matthew M [facility] [id number] 350.1.13.10 4.2.7.2.686 [id number] [facility] Results Test Description Test Time Test Comments Results Result Co mments Source [facility]-08-24 12:35:27* Test Item Value Reference Range Interpretation Comme nts POCT GLU (test code = 3558174669) 204 mg/dL 70-110 H Lab Interpretation (test cod e = 50203-1) [facility] (NA, K, CL, CO2, GLUCOSE, BUN, CREATININE, CA)2023-08-24 09:45:39* Test Item Value Reference Range Interpretation Comme nts NA (test code = 8492049755) 133 mmol/L 135-145 L K (test code = 9358705770) 3.7 mmol/L 3.5-5.0 CL (test code = 7023175864) 98 mmol/L 98-108 CO2 TOTAL (test code = 7166586520) 27 mmol/L 23-31 AGAP (test code = 8263363902) 8 2-16 BUN (test code = 8242289298) 13 mg/dL 7-23 GLUCOSE (test code = 5023381443) 188 mg/dL 70-110 H CREATININE (test code = 2160-0) 0.63 mg/dL 0.60-1.25 CALCIUM (test code = 7110951945) 9.4 mg/dL 8.6-10.6 eGFR (test code = 65460-4) 111.6 mL/min/1.73m2 CKD-EPI eGFR (2020). Assuming creatinine has been stable day-to-day for at least three months, the eGFR indicates Category G1 (>= 90 mL/min/1.73 m2) Lab Interpretation (test code = 33849-7) Abnormal [facility] with [id number] 09:21:26* Test Item Value Reference Range Interpretation [...] g/dL 31.2-35.0 H RDW-SD (test code = 40578-0) 36.9 fL 38.5-51.6 L RDW-CV (test code = 788-0) 11.6 % 12.1-15.4 L PLT (test code = 777-3) 407 150-328 H MPV (test code = 83886-8) 9.5 fL 9.8-13.0 L NRBC/100 WBC (test code = 9233770278) 0.0 0.0-10.0 NRBC x10^3 (test code = 8195989476) See_Comment [Automated messa ge] The system which generated this result transmitted reference range: 10*3/?L. The reference range was not used to interpret this result as normal/abnormal. GRAN MAT (NEUT) % (test code = 770-8) 63.1 % IMM GRAN % (test code = 5785643102) 0.30 % LYMPH % (test code = 736-9) 21.1 % MONO % (test code = 5905-5) 8.3 % EOS % (test code = 713-8) 6.5 % BASO % (test code = 706-2) 0.7 % GRAN MAT x10^3(ANC) (test code = 2793647184) 3.71 10*3/uL 1.99-6.95 IMM GRAN x10^3 (test code = 0858253813) 0.00-0.06 LYMPH x10^3 (test code = 731-0) 1.24 10*3/uL 1.09-3.23 MONO x10^3 (test code = 742-7) 0.49 10*3/uL 0.36-1.02 EOS x10^3 (test code = 711-2) 0.38 10*3/uL 0.06-0.53 BASO x10^3 (test code = 704-7) 0.04 10*3/uL 0.01-0.09 Lab Interpretation (test code = 27720-1) [facility]2023-08-24 05:47:46* Test Item Value Reference Range Interpretation Comme nts POCT GLU (test code = 0153069051) 126 mg/dL 70-110 H Lab Interpretation (test cod e = 35922-5) Abnormal [facility] Metabolic Panel (NA, K, CL, CO2, GLUCOSE, BUN, CREATININE, CA)2023-08-24 02:27:27* Test Item Value Reference Range Interpretation Comme nts NA (test code = 2178271033) 129 mmol/L 135-145 L K (test code = 7505014567) 3.9 mmol/L 3.5-5.0 CL (test code = 7509402781) 96 mmol/L 98-108 L CO2 TOTAL (test code = 3632601798) 29 mmol/L 23-31 AGAP (test code = 1933984033) 4 2-16 BUN (test code = 2984889306) 14 mg/dL 7-23 GLUCOSE (test code = 2224416657) 185 mg/dL 70-110 H CREATININE (test code = 2160-0) 0.56 mg/dL 0.60-1.25 L CALCIUM (test code = 8822962187) 9.2 mg/dL 8.6-10.6 eGFR (test code = 68542-7) 115.7 mL/min/1.73m2 CKD-EPI eGFR (2020). Assuming creatinine has been stable day-to-day for at least three months, the eGFR indicates Category G1 (>= 90 mL/min/1.73 m2) Lab Interpretation (test code = 40840-7) Abnormal [facility] GLUCOSE (AUTOMATED)2023-08-24 01:28:28* Test Item Value Reference Range Interpretation Comme nts POCT GLU (test code = 6525930568) 210 mg/dL 70-110 H Lab Interpretation (test cod e = 16519-7) Abnormal [facility] GLUCOSE (AUTOMATED)2023-08-23 21:30:04* Test Item Value Reference Range Interpretation Comme nts POCT GLU (test code = 4679876500) 149 mg/dL 70-110 H Lab Interpretation (test cod e = 45797-6) Abnormal [facility] GLUCOSE (AUTOMATED)2023-08-23 16:45:20* Test Item Value Reference Range Interpretation Comme nts POCT GLU (test code = 7077929666) 147 mg/dL 70-110 H Lab Interpretation (test cod e = 10924-4) Abnormal [facility] GLUCOSE (AUTOMATED)2023-08-23 12:36:56* Test Item Value Reference Range Interpretation Comme nts POCT GLU (test code = 2179535203) 131 mg/dL 70-110 H Lab Interpretation (test cod e = 60812-4) Abnormal [facility] GLUCOSE (AUTOMATED)2023-08-23 09:17:23* Test Item Value Reference Range Interpretation Comme nts POCT GLU (test code = 0355673052) 154 mg/dL 70-110 H Lab Interpretation (test cod e = 71221-0) Abnormal [facility] GLUCOSE (AUTOMATED)2023-08-23 05:03:01* Test Item Value Reference Range Interpretation Comme nts POCT GLU (test code = 1106822625) 183 mg/dL 70-110 H Lab Interpretation (test cod e = 29302-3) Abnormal [facility] Metabolic Panel (NA, K, CL, CO2, GLUCOSE, BUN, CREATININE, CA)2023-08-23 01:49:58* Test Item Value Reference Range Interpretation Comme nts NA (test code = 8766529328) 132 mmol/L 135-145 L K (test code = 3897425597) 4.1 mmol/L 3.5-5.0 CL (test code = 9405759105) 101 mmol/L 98-108 CO2 TOTAL (test code = 9166911928) 28 mmol/L 23-31 AGAP (test code = 6644905178) 3 2-16 BUN (test code = 9521035833) 17 mg/dL 7-23 GLUCOSE (test code = 9942454632) 149 mg/dL 70-110 H CREATININE (test code = 2160-0) 0.97 mg/dL 0.60-1.25 CALCIUM (test code = 9645439718) 8.4 mg/dL 8.6-10.6 L eGFR (test code = 70753-5) 91.6 mL/min/1.73m2 CKD-EPI eGFR (2020). Assuming creatinine has been stable day-to-day for at least three months, the eGFR indicates Category G1 (>= 90 mL/min/1.73 m2) Lab Interpretation (test code = 09818-4) Abnormal [facility] GLUCOSE (AUTOMATED)2023-08-23 00:43:06* Test Item Value Reference Range Interpretation Comme nts POCT GLU (test code = 9352010751) 126 mg/dL 70-110 H Lab Interpretation (test cod e = 49957-8) [facility]normal [facility] Antonio[facility]ort[facility] [id number] 22:59:03* Test Item Value Reference Range Interpretation Comme nts IBRAHIMA AM (test code = 8690958264) 24.7 ug/dL 4.5-23.0 H GINA (test code = GINA) Biotin has been reported to cause a positive bias, interpret results relative to patient's use of biotin. Lab Interpretation (test code = 88914-1) [facility])2023-08-22 21:29:10* Test Item Value Reference Range Interpretation Comme [facility] POCT GLU (test code = 7526860920) 341 mg/dL 70-110 H Lab Interpretation (test cod e = 90410-4) Abnormal [facility] Antonio[facility]ric Afmo5230-03-29 19:53:59* Test Item Value Reference Range Interpretation Comme [facility] URIC ACID (test code = 2310757134) 6.4 mg/dL 3.6-8.0 Lab Interpretation (test cod e = 52809-7) Normal [facility] Metabolic Panel (NA, K, CL, CO2, GLUCOSE, BUN, CREATININE, CA)2023-08-22 14:43:15* Test Item Value Reference Range Interpretation Comme nts NA (test code = 5008318905) 138 mmol/L 135-145 K (test code = 0328464739) 4.6 mmol/L 3.5-5.0 CL (test code = 6034043999) 102 mmol/L 98-108 CO2 TOTAL (test code = 7578302540) 28 mmol/L 23-31 AGAP (test code = 7772624327) 8 2-16 BUN (test code = 6795274217) 34 mg/dL 7-23 H GLUCOSE (test code = 8742098278) 224 mg/dL 70-110 H CREATININE (test code = 2160-0) 1.89 mg/dL 0.60-1.25 H CALCIUM (test code = 0120668522) 9.4 mg/dL 8.6-10.6 eGFR (test code = 32791-0) 41.1 mL/min/1.73m2 CKD-EPI eGFR (2020). Assuming creatinine has been stable day-to-day for at least three months, the eGFR indicates Category G3b (30 - 44 mL/min/1.73 m2) Lab Interpretation (test code = 59234-3) [facility] [id number] 14:42:45* Test Item Value Reference Range Interpretation Comme nts CK (test code = 0493877287) 224 U/L 33-194 H Lab Interpretation (test cod e = 68967-6) Abnormal [facility] Antonio[facility]osphorus [id number] 12:10:01* Test Item Value Reference Range Interpretation Comme nts PHOSPHORUS (test code = 1837668796) 5.8 mg/dL 2.5-5.0 H Lab Interpretation (test cod e = 45337-0) [facility]normal [facility] Met[facility] (NA, K, CL, CO2, GLUCOSE, BUN, CREATININE, CA)2023-08-22 04:41:19* Test Item Value Reference Range Interpretation Comme nts NA (test code = 7370552985) 124 mmol/L 135-145 L K (test code = 7592209895) 4.7 mmol/L 3.5-5.0 CL (test code = 5277483747) 93 mmol/L 98-108 L CO2 TOTAL (test code = 4800450314) 18 mmol/L 23-31 L AGAP (test code = 6305538456) 13 2-16 BUN (test code = 8343257537) 68 mg/dL 7-23 H GLUCOSE (test code = 3554495601) 116 mg/dL 70-110 H CREATININE (test code = 2160-0) 6.60 mg/dL 0.60-1.25 H CALCIUM (test code = 6862363549) 9.0 mg/dL 8.6-10.6 eGFR (test code = 23117-0) 9.2 mL/min/1.73m2 CKD-EPI eGFR (2020). Assuming creatinine has been stable day-to-day for at least three months, the eGFR indicates Category G5 (<= 14mL/min/1.73 m2) Lab Interpretation (test code = 84671-5) [facility] P[facility] WO [id number] 02:22:05Exam: CT Abdomen and Pelvis without Contrast, [...] osseous finding. Subacute/chronic left-sided rib fractures.Soft tissues: Unremarkable.[facility]. Metabolic Panel (43907) 2023-08-22 02:21:33* Test Item Value Reference Range Interpretation Comme nts NA (test code = 8763399477) 120 mmol/L 135-145 L K (test code = 6126348438) 4.8 mmol/L 3.5-5.0 CL (test code = 5502892234) 85 mmol/L 98-108 L CO2 TOTAL (test code = 6741700693) 21 mmol/L 23-31 L AGAP (test code = 8830339132) 14 2-16 BUN (test code = 7003919269) 70 mg/dL 7-23 H GLUCOSE (test code = 9318637823) 97 mg/dL 70-110 CREATININE (test code = 2160-0) 8.39 mg/dL 0.60-1.25 H TOTAL BILI (test code = 6678980801) 0.7 mg/dL 0.1-1.1 CALCIUM (test code = 9239135398) 8.8 mg/dL 8.6-10.6 T PROTEIN (test code = 1086252330) 7.2 g/dL 6.3-8.2 ALBUMIN (test code = 2197885583) 4.1 g/dL 3.5-5.0 ALK PHOS (test code = 7887818218) 95 U/L 34-122 ALTv (test code = 1742-6) 12 U/L 5-50 AST(SGOT) (test code = 3782106168) 24 U/L 13-40 eGFR (test code = 10495-0) 6.9 mL/min/1.73m2 CKD-EPI eGFR (2020). Assuming creatinine has been stable day-to-day for at least three months, the eGFR indicates Category G5 (<= 14mL/min/1.73 m2) Lab Interpretation (test code = 57419-3) [facility] Test Item Value Reference Range Interpretation Comme nts LIPASE (test code = 6413239227) 758 U/L 0-220 H Lab Interpretation (test cod e = 61677-7) [facility]-27 01:58:31* Test Item Value Reference Range Interpretation [...] g/dL 31.2-35.0 H RDW-SD (test code = 00940-1) 36.0 fL 38.5-51.6 L RDW-CV (test code = 788-0) 11.5 % 12.1-15.4 L PLT (test code = 777-3) 312 150-328 MPV (test code = 99868-6) 9.4 fL 9.8-13.0 L NRBC/100 WBC (test code = 8674166880) 0.0 0.0-10.0 NRBC x10^3 (test code = 3768381693) See_Comment [Automated message] The system which generated this result transmitted reference range: 10*3/?L. The reference range was not used to interpret this result as normal/abnormal. GRAN MAT (NEUT) % (test code = 770-8) 82.7 % IMM GRAN % (test code = 1052001186) 0.50 % LYMPH % (test code = 736-9) 6.7 % MONO % (test code = 5905-5) 9.8 % EOS % (test code = 713-8) 0.2 % BASO % (test code = 706-2) 0.1 % GRAN MAT x10^3(ANC) (test code = 0128135965) 12.19 10*3/uL 1.99-6.95 H IMM GRAN x10^3 (test code = 9070111754) 0.08 10*3/uL 0.00-0.06 H LYMPH x10^3 (test code = 731-0) 0.99 10*3/uL 1.09-3.23 L MONO x10^3 (test code = 742-7) 1.44 10*3/uL 0.36-1.02 H EOS x10^3 (test code = 711-2) 0.03 10*3/uL 0.06-0.53 L BASO x10^3 (test code = 704-7) 0.01-0.09 Lab Interpretation (test code = 61265-2) Abnormal [facility] GLUCOSE (AUTOMATED)2023-08-16 22:02:57* Test Item Value Reference Range Interpretation Comme nts POCT GLU (test code = 0096943406) 112 mg/dL 70-110 H Lab Interpretation (test cod e = 15112-6) Abnormal [facility] GLUCOSE (AUTOMATED)2023-08-16 16:59:58* Test Item Value Reference Range Interpretation Comme nts POCT GLU (test code = 3101545170) 127 mg/dL 70-110 H Lab Interpretation (test cod e = 45678-1) Abnormal [facility] GLUCOSE (AUTOMATED)2023-08-16 12:48:23* Test Item Value Reference Range Interpretation Comme nts POCT GLU (test code = 3507272580) 175 mg/dL 70-110 H Lab Interpretation (test cod e = 43539-7) Abnormal [facility] GLUCOSE (AUTOMATED)2023-08-16 02:07:02* Test Item Value Reference Range Interpretation Comme nts POCT GLU (test code = 1602150245) 195 mg/dL 70-110 H Notified Provide r Lab Interpretation (test code = 23530-1) Abnormal [facility] GLUCOSE (AUTOMATED)2023-08-15 21:36:15* Test Item Value Reference Range Interpretation Comme nts POCT GLU (test code = 2018880683) 284 mg/dL 70-110 H Lab Interpretation (test cod e = 41960-8) Abnormal [facility] GLUCOSE (AUTOMATED)2023-08-15 16:56:02* Test Item Value Reference Range Interpretation Comme nts POCT GLU (test code = 7403000107) 74 mg/dL 70-110 Lab Interpretation (test cod e = 33083-2) Normal [facility] GLUCOSE (AUTOMATED)2023-08-15 13:12:34* Test Item Value Reference Range Interpretation Comme nts POCT GLU (test code = 4175213282) 258 mg/dL 70-110 H Lab Interpretation (test cod e = 10948-1) Abnormal [facility] GLUCOSE (AUTOMATED)2023-08-15 04:04:43* Test Item Value Reference Range Interpretation Comme nts POCT GLU (test code = 7450510404) 120 mg/dL 70-110 H Lab Interpretation (test cod e = 40533-5) [facility] Antonio[facility]cosylated Hemoglobin (A1C)2023-08-15 01:17:32* Test Item Value Reference Range Interpretation Comme nts HGB A1C (test code = 4548-4) 8.9 % 4.0-5.7 H GINA (test code = GINA) Reference RangesNormal: <5.7%Prediabetes: 5.7 - 6.4%Diabetes: > 6.5% Lab Interpretation (test code = 88003-3) Abnormal [facility] AntonioBeta Fiytezq-Wokqftrt4838-82-21 01:00:45* Test Item Value Reference Range Interpretation Comme nts BOH (test code = 0221523253) 0.5 mmol/L GINA (test code = GINA) Normal Ranges: ? ? Nonfasting ? Less than 0.1 mmol/L ? ? Overnight Fast ? ? ? Less than 0.4 mmol/L ? ? Fasting (1-2 weeks) ?6-8 mmol/L Test developed and characteristics determined by [facility] Laboratory Services. [facility] AntonioCreatine Znxenb2355-95-75 23:07:16* Test Item Value Reference Range Interpretation Comme nts CK (test code = 8354387729) 148 U/L 33-194 Lab Interpretation (test cod e = 88090-2) Normal [facility] AntonioTROPONIN [id number] 22:18:16* Test Item Value Reference Range Interpretation Comme nts TROPONIN I (test code = 8818055170) 0.081 ng/mL <=0.034 H GINA (test code [...] of biotin. Lab Interpretation (test code = 13467-3) Abnormal [facility] AntonioN-TERMINAL CBD-[id number] 22:15:55* Test Item Value Reference Range Interpretation Comme [facility] NT-proBNP (test code = 94762-6) 999 pg/mL <=125 H GINA (test code = GINA) Positive: Heart Failure Likely Lab Interpretation (test code = 35525-9) Abnormal [facility] AntonioMagnesium2024-04-20 22:07:17* Test Item Value Reference Range Interpretation Comme nts MAGNESIUM (test code = 2924695707) 1.8 mg/dL 1.7-2.4 Lab Interpretation (test cod e = 04668-9) Normal [facility] AntonioCOMP. METABOLIC PANEL (57158)2023 22:06:57* Test Item Value Reference Range Interpretation Comme nts NA (test code = 0634308715) 130 mmol/L 135-145 L K (test code = 2913357842) 3.4 mmol/L 3.5-5.0 L CL (test code = 8344312305) 93 mmol/L 98-108 L CO2 TOTAL (test code = 2082724660) 26 mmol/L 23-31 AGAP (test code = 0288243121) 11 2-16 BUN (test code = 3614394607) 39 mg/dL 7-23 H GLUCOSE (test code = 2956336572) 142 mg/dL 70-110 H CREATININE (test code = 2160-0) 2.40 mg/dL 0.60-1.25 H TOTAL BILI (test code = 7975208197) 1.2 mg/dL 0.1-1.1 H CALCIUM (test code = 7730055824) 9.1 mg/dL 8.6-10.6 T PROTEIN (test code = 5360835921) 7.7 g/dL 6.3-8.2 ALBUMIN (test code = 0021648400) 4.2 g/dL 3.5-5.0 ALK PHOS (test code = 0396766786) 102 U/L 34-122 ALTv (test code = 1742-6) 16 U/L 5-50 AST(SGOT) (test code = 3886588389) 26 U/L 13-40 eGFR (test code = 32730-2) 30.9 mL/min/1.73m2 CKD-EPI eGFR (2020). Assuming creatinine has been stable day-to-day for at least three months, the eGFR indicates Category G3b (30 - 44 mL/min/1.73 m2) Lab Interpretation (test code = 64966-0) Abnormal [facility] AntonioPhosphorus2024-04-20 22:06:37* Test Item Value Reference Range Interpretation Comme nts PHOSPHORUS (test code = 6256002929) 4.9 mg/dL 2.5-5.0 Lab Interpretation (test cod e = 49845-3) Normal [facility] AntonioLIPASE2024-04-20 22:06:17* Test Item Value Reference Range Interpretation Comme nts LIPASE (test code = 1595373128) 204 U/L 0-220 Lab Interpretation (test cod e = 84069-3) Normal [facility] WITH [id number] 21:54:56* Test Item Value Reference Range Interpretation [...] g/dL 31.2-35.0 H RDW-SD (test code = 31013-2) 38.1 fL 38.5-51.6 L RDW-CV (test code = 788-0) 11.8 % 12.1-15.4 L PLT (test code = 777-3) 235 150-328 MPV (test code = 59038-7) 11.1 fL 9.8-13.0 NRBC/100 WBC (test code = 4970629759) 0.0 0.0-10.0 NRBC x10^3 (test code = 0714061877) See_Comment [Automated message] The system which generated this result transmitted reference range: 10*3/?L. The reference range was not used to interpret this result as normal/abnormal. GRAN MAT (NEUT) % (test code = 770-8) 80.3 % IMM GRAN % (test code = 1945754029) 0.60 % LYMPH % (test code = 736-9) 8.7 % MONO % (test code = 5905-5) 10.0 % EOS % (test code = 713-8) 0.2 % BASO % (test code = 706-2) 0.2 % GRAN MAT x10^3(ANC) (test code = 5404476342) 10.18 10*3/uL 1.99-6.95 H IMM GRAN x10^3 (test code = 5043244686) 0.07 10*3/uL 0.00-0.06 H LYMPH x10^3 (test code = 731-0) 1.11 10*3/uL 1.09-3.23 MONO x10^3 (test code = 742-7) 1.27 10*3/uL 0.36-1.02 H EOS x10^3 (test code = 711-2) 0.03 10*3/uL 0.06-0.53 L BASO x10^3 (test code = 704-7) 0.03 10*3/uL 0.01-0.09 Lab Interpretation (test code = 05110-9) Abnormal [facility] AntonioXR CHEST 1 [id number] 21:49:58EXAM: XR CHEST 1 2023 4:38 PM HISTORY: 58 years-old Male with r/o infilrate . TECHNIQUE: Portable AP view of the chest. COMPARISON: 04/21/2023 FINDINGS: Lines and tubes: None. Cardiomediastinal: The cardiomediastinal silhouette is unremarkable. Lungs and pleura: The lungs are clear. No focal consolidation,pneumothorax, or pleural effusion is seen. Included osseous structures show no acuteabnormality.[facility] AntonioCT ABDOMEN PELVIS W [id number] 21:45:03EXAM: CT ABDOMEN AND PELVIS WITH CONTRAST [...] change involving the spine, sacroiliac jointsand hips ispresent.[facility] AntonioCT TRAUMA HEAD WO [id number] 21:38:37FULL RESULT: Examination: CT TRAUMA HEAD WO CONTRAST on 2023 4:16 PM Clinical Indication: Headache, hypertensive Comparison: None Technique: Noncontrast imaging was obtained from base to vertex.Findings: The sulci and ventricles were unremarkable. There may be subtlewhite matter microvascularischemic changes, notably in the anteriorperiventricular region, but there is no evidence for hemorrhage or otherclearly acute intracranial process.[facility] AntonioLamdic Acid Whole Vfjsu1792-87-11 21:30:25* Test Item Value Reference Range Interpretation Comme [facility] LACTIC ACID (test code = 9673983836) 1.58 mmol/L 0.50-2.20 Lab Interpretation (test cod e = 55195-7) Normal [facility] Care Venous Blood [id number] 21:30:25 * Test Item Value Reference Range Interpretation Comme nts PH (test code = 9331235876) 7.34 7.32-7.42 PCO2 NOY (test code = 2770198240) 45 41-51 PO2 NOY (test code = 7869798618) 24 25-40 L HCO3 NOY (test code = 7576318046) 24 24-28 AC VBE(BEAKER) (test code = 7218843348) -1.9 mEq/L Lab Interpretation (test cod e = 73300-6) Abnormal [facility] GLUCOSE (AUTOMATED)2023 20:26:17* Test Item Value Reference Range Interpretation Comme nts POCT GLU (test code = 7691785537) 165 mg/dL 70-110 H Lab Interpretation (test cod e = 86009-8) Abnormal [facility] GLUCOSE(AGE >30DAYS)2023 20:26:00* Test Item Value Reference Range Interpretation Comme nts POCT Glu (age>30days) (test code = 3342) 165 mg/dL 70-110 A Lab Interpretation (test cod e = 01166-6) [facility] 18:15:28* Test Item Value Reference Range Interpretation Comme nts POCT GLU (test code = 4369001051) 218 mg/dL 70-110 H Lab Interpretation (test cod e = 21073-9) [facility]normal [facility]23 15:35:23* Test Item Value Reference Range Interpretation Comme nts POCT GLU (test code = 5446716656) 186 mg/dL 70-110 H Lab Interpretation (test cod e = 10026-5) [facility]2023-04-23 02:57:57* Test Item Value Reference Range Interpretation Comme nts POCT GLU (test code = 7227199632) 82 mg/dL 70-110 Lab Interpretation (test cod e = 28251-3) Normal [facility] GLUCOSE (AUTOMATED)2023-04-23 00:33:51* Test Item Value Reference Range Interpretation Comme nts POCT GLU (test code = 7904773414) 181 mg/dL 70-110 H Lab Interpretation (test cod e = 47830-5) [facility]2023-04-22 22:54:22* Test Item Value Reference Range Interpretation Comme nts POCT GLU (test code = 7620176903) 127 mg/dL 70-110 H Lab Interpretation (test cod e = 15850-7) [facility]normal [facility]2023-04-22 20:37:54* Test Item Value Reference Range Interpretation Comme nts POCT GLU (test code = 7843697499) 230 mg/dL 70-110 H Lab Interpretation (test cod e = 74592-0) [facility]normal [facility]2023-04-22 17:46:23* Test Item Value Reference Range Interpretation Comme nts POCT GLU (test code = 8416817167) 144 mg/dL 70-110 H Lab Interpretation (test cod e = 65623-4) [facility]normal [facility]2023-04-22 13:42:26* Test Item Value Reference Range Interpretation Comme nts POCT GLU (test code = 3015586591) 229 mg/dL 70-110 H Lab Interpretation (test cod e = 30255-8) Abnormal [facility] GLUCOSE (AUTOMATED)2023-04-22 03:33:49* Test Item Value Reference Range Interpretation Lianet garcía POCT GLU (test code = 1607337681) 222 mg/dL 70-110 H Lab Interpretation (test cod e = 68011-9) Abnormal [facility] GLUCOSE (AUTOMATED)2023-04-22 01:36:03* Test Item Value Reference Range Interpretation Lianet garcía POCT GLU (test code = 2592723845) 282 mg/dL 70-110 H Lab Interpretation (test cod e = 59018-6) Abnormal [facility] AntonioEchocardiogram dobutamine stress test 2023-04-21 22:26:30* Test Item Value Reference Range Interpretation Lianet garcía Height (test code = 5490517505) 63 in Weight (test code = 5001160073) 130 lbs Systolic BP (test code = 9378624478) 122 mmHg Diastolic BP (test code = 1431811221) 81 mmHg Heart Rate (test code = 9782096766) 105 bpm BSA (test code = 3170233707) 1.[address] Depresion (mm) (test code = 2026354427) [address] Depression (mm) (test code = 7107253092) 0 mm Radiology Study observation (narrative) (test code = 49107-4) GINA (test code = GINA) Table formatting [...] left ventricular wall motion is globally hyperkinetic. [facility] AntonioTransthoracic echo (TTE)2023-04-21 18:05:03* Test Item Value Reference Range Interpretation Comme nts Height (test code = 3296279858) 63 in Weight (test code = 1668608060) 130 lbs Systolic BP (test code = 5632746342) 114 mmHg Diastolic BP (test code = 8102785821) 75 mmHg Heart Rate (test code = 5943065779) 98 bpm BSA (test code = 1996988436) 1.61 m2 LVIDD (test code = 8449990811) 4.00 cm Left Ventricular End Diastolic Volume by Teichholz Method (test code = 1190778) 70.0 mL IVS (test code = 5107958387) 1.07 cm Interventricular Septum Diastolic Thickness by 2D (test code = 1538977) 1.07 cm LVPWD (test code = 3987218937) 1.05 cm PW (test code = 5924112572) 1.05 cm 0.6-1.1 EF(Teich) (test code = 3588414292) 62.60 % LVIDS (test code = 2957065154) 2.70 cm Left Ventricular End Systolic Volume by Teichholz Method (test code = 9106561) 26.2 mL FS (test code = 8402435963) 33 % EF - 2D (test code = 76883326) 62.60 % Ao root diam (test code = 6368047721) 3.70 cm Aortic root (test code = 9601063240) 3.7 cm Ao root annulus (test code = 1532026751) 3.7 cm LA size (test code = 4538039615) 3.2 cm LVOT diameter (test code = 9412930563) 2.08 cm LVOT area (test code = 5288591434) 3.40 cm2 MV Peak E Nima (test code = 0068562971) 48.3 cm/s E wave decelartion time (test code = 9371669691) 0.15 s MV Peak A Nima (test code = 8577792456) 74.4 cm/s E/A ratio (test code = 8700455223) 0.65 ratio MV Prop V (test code = 1922524431) 21.20 cm/s LAV(MOD-sp4) (test code = 5404708952) 35.30 mL Tapse (test code = 6921981211) 1.73 cm LVOT stroke volume (test code = 4799907708) 45.20 cm3 LVOT peak nima (test code = 5619856066) 79.0 cm/s LVOT mn grad (test code = 9883514670) 1.3 mmHg AV LVOT peak gradient (test code = 5698537148) 2.50 mmHg LVOT peak VTI (test code = 1062776370) 13.2 cm LV V1 mean (test code = 1747864181) 52.90 cm/s Ao peak nima (test code = 1182348661) 83.8 cm/s AV area peak nima (test code = 8218873668) 3.2 cm2 Ao max PG (test code = 5363924389) 2.80 mm[Hg] AV peak gradient (test code = 4633125981) 2.8 mmHg LA Volume Index (BP) (test code = 0456300834) 25.9 mL/m2 LA volume (BP) (test code = 3104271342) 41.8 mL LAV(MOD-sp2) (test code = 7686002157) 40.90 mL A4C EF (test code = 3954518734) 54.40 % EF(sp4-el) (test code = 3196190900) 55.00 % SV(MOD-sp4) (test code = 9213195477) 53.10 mL SV(sp4-el) (test code = 0283853232) 55.60 mL Radiology Study observation (narrative) (test code = 34663-2) GINA (test code = GINA) ?Left?Ventricle: Left [...] enhancing agent used. Patient exhibited sinus rhythm. [facility] GLUCOSE (AUTOMATED)2023-04-21 17:48:26* Test Item Value Reference Range Interpretation Comme nts POCT GLU (test code = 6102817306) 198 mg/dL 70-110 H Lab Interpretation (test cod e = 63669-2) Abnormal [facility] AntonioXR CHEST 1 [id number] 15:12:07EXAM: XR CHEST 1 VW HISTORY: NSTEMI COMPARISON: None. FINDINGS: Small bandlike densities in the left midlung have more the appearance ofatelectasis than pneumonia. The lungs are well expanded and clearotherwise. The heart and great vessels are normal except for calcium in thearch of the aorta.[facility] GLUCOSE (AUTOMATED)2023-04-21 09:39:57* Test Item Value Reference Range Interpretation Comme nts POCT GLU (test code = 2685944431) 243 mg/dL 70-110 H Lab Interpretation (test cod e = 64812-9) Abnormal [facility] AntonioFerritin Ynczp1535-20-31 07:28:27* Test Item Value Reference Range Interpretation Comme nts FERRITIN (test code = 1392634182) 76.3 ng/mL 18.0-464.0 GINA (test code = GINA) Biotin has been reported to cause a negative bias, interpret results relative to patient's use of biotin. Lab Interpretation (test code = 45851-4) Normal [facility] AntonioGlycosylated Hemoglobin (A1C)2023-04-21 07:25:47* Test Item Value Reference Range Interpretation Comme nts HGB A1C (test code = 4548-4) 12.6 % 4.0-5.7 H GINA (test code = GINA) Reference RangesNormal: <5.7%Prediabetes: 5.7 - 6.4%Diabetes: > 6.5% Lab Interpretation (test code = 03254-9) Abnormal [facility] AntonioThyroid Stimulating Jqzfnpo6884-39-79 07:24:07 * Test Item Value Reference Range Interpretation Comme nts TSH (test code = 2900704718) 2.56 See_Comment [Automated messa ge] The system which generated this result transmitted reference range: 0.45 - 4.70 mIU/L. The reference range was not used to interpret this result as normal/abnormal. Lab Interpretation (test code = 73419-5) Normal [facility] AntonioPhosphorus2023-12-27 06:52:06* Test Item Value Reference Range Interpretation Comme nts PHOSPHORUS (test code = 3058076147) 3.2 mg/dL 2.5-5.0 Lab Interpretation (test cod e = 29230-0) Normal [facility] AntonioCritical Pxbm8144-46-48 02:54:15NSergio chin MD ? ? 04/20/2023 ?8:54 [...] separately billable procedures and treating other patients. [facility] AntonioTrjefferson memorial hospitaldian [id number] 02:30:18* Test Item Value Reference Range Interpretation Comme nts TROPONIN I (test code = 7763622295) 0.154 ng/mL <=0.034 H GINA (test code [...] of biotin. Lab Interpretation (test code = 28727-9) Abnormal [facility] AntonioETHANOL2023-12-27 02:24:46 ALCOHOL<10mg/dL04/20/2023 8:24 PM [facility]10 Havhvgdc09-002 Toxic>100 Depression of SPA CONCIERGE>400 Fatalities ReportedUnUnited Memorial Medical CenterCOMP. METABOLIC PANEL (16929)2023-04-21 02:19:15* Test Item Value Reference Range Interpretation Comme nts NA (test code = 1696246196) 129 mmol/L 135-145 L K (test code = 4555589738) 3.5 mmol/L 3.5-5.0 CL (test code = 7016786520) 94 mmol/L 98-108 L CO2 TOTAL (test code = 9227857637) 28 mmol/L 23-31 AGAP (test code = 7629776740) 7 2-16 BUN (test code = 3809435633) 26 mg/dL 7-23 H GLUCOSE (test code = 9121891492) 314 mg/dL 70-110 H CREATININE (test code = 4979573012) 0.92 mg/dL 0.60-1.25 TOTAL BILI (test code = 9025723058) 0.8 mg/dL 0.1-1.1 CALCIUM (test code = 4257005101) 8.5 mg/dL 8.6-10.6 L T PROTEIN (test code = 2293196068) 6.0 g/dL 6.3-8.2 L ALBUMIN (test code = 0058783599) 3.3 g/dL 3.5-5.0 L ALK PHOS (test code = 1819151689) 95 U/L 34-122 ALTv (test code = 1742-6) 23 U/L 5-50 AST(SGOT) (test code = 9182408661) 30 U/L 13-40 eGFR (test code = 13932-5) 98.2 mL/min/1.73m2 CKD-EPI eGFR (2020). Assuming creatinine has been stable day-to-day for at least three months, the eGFR indicates Category G1 (>= 90 mL/min/1.73 m2) Lab Interpretation (test code = 10503-4) Abnormal [facility] WITH [id number] 02:03:54* Test Item Value Reference Range Interpretation [...] g/dL 31.2-35.0 H RDW-SD (test code = 89125-3) 36.2 fL 38.5-51.6 L RDW-CV (test code = 788-0) 11.6 % 12.1-15.4 L PLT (test code = 777-3) 178 See_Comment [Automated [employer] ge] The system which generated this result transmitted reference range: 150 - 328 10*3/?L. The reference range was not used to interpret this result as normal/abnormal. MPV (test code = 47232-6) 10.9 fL 9.8-13.0 NRBC/100 WBC (test code = 0288098123) 0.0 See_Comment [Automated [employer] ssage] The system which generated this result transmitted reference range: 0.0 - 10.0 /100 WBCs. The reference range was not used to interpret this result as normal/abnormal. NRBC x10^3 (test code = 8655407889) See_Comment [Automated [employer] ge] The system which generated this result transmitted reference range: 10*3/?L. The reference range was not used to interpret this result as normal/abnormal. GRAN MAT (NEUT) % (test code = 770-8) 81.3 % IMM GRAN % (test code = 1909368817) 0.30 % LYMPH % (test code = 736-9) 10.5 % MONO % (test code = 5905-5) 7.6 % EOS % (test code = 713-8) 0.1 % BASO % (test code = 706-2) 0.2 % GRAN MAT x10^3(ANC) (test code = 4528402372) 9.55 10*3/uL 1.99-6.95 H IMM GRAN x10^3 (test code = 8353430003) 0.04 10*3/uL 0.00-0.06 LYMPH x10^3 (test code = 731-0) 1.23 10*3/uL 1.09-3.23 MONO x10^3 (test code = 742-7) 0.89 10*3/uL 0.36-1.02 EOS x10^3 (test code = 711-2) 0.06-0.53 L BASO x10^3 (test code = 704-7) 0.01-0.09 Lab Interpretation (test code = 15155-3) Abnormal [facility] AntonioPOCT GLUCOSE (AUTOMATED)2023-04-21 01:55:51* Test Item Value Reference Range Interpretation Comme [facility] POCT GLU (test code = 1600771360) 408 mg/dL 70-110 H Lab Interpretation (test cod e = 20214-3) Abnormal [facility] AntonioCOMPREHENSIVE METABOLIC [id number] 05:07:51* Test Item Value Reference Range Interpretation Comme [facility] GLUCOSE (test code = 2217) 224 MG/DL 70-99 H BUN (test code = 2208) 22 MG/DL 6-20 H CREATININE (test code = 2214) 0.71 MG/DL 0.80-1.40 L eGFR (2020 CKD-EPI) (test code = 56037) 109 ML/MIN/1.73 >60 CALC BUN/CREAT (test code [...] code = 2219) 24 U/L 5-50 LIPID [id number] 05:07:51* Test Item Value Reference Range Interpretation [...] SPECIMENS. FOR MOREINFORMATION, SEE CLIENT ANNOUNCEMENT AT [email or web address]-C RISK RATIO LDL/HDL (test code = 2238) 1.72 RATIO <3.55 PSA, [id number] 05:07:10* Test Item Value Reference Range Interpretation Comme nts PSA, TOTAL (test code = 2606) 19.70 NG/ML See_Comment H NOTE: Methodolog y is Ashley Jasmina Electrochemiluminescence Immunoassay traceable to WHO reference standard 96/760. UNLESS OTHERWISE INDICATED, ALL TESTING PERFORMED [facility]ALLINP[facility] [address] [place] [address] ELECTRO MECHANICAL ENGINEER: DUSTIN COLMENARES M.D. CLIA NUMBER [id number] [place]. [id number] [Automated message] The system which generated this result transmitted reference range: <=4.00. The reference range was not used to interpret this result as normal/abnormal. HEMOGLOBIN [id number] 02:46:58* Test Item Value Reference Range Interpretation Comme nts HEMOGLOBIN A1c (test code = 47740) 11.0 % 4.2-5.6 H [employer] GUIDELINES FOR HGB A1C: [...] OR LABORATORY CONSULTATION. CBC W/AUTO DIFF WITH [id number] 02:32:39* Test Item Value Reference Range Interpretation [...] 0.00-0.10 ABS NUCLEATED RBCS (test code = 51979) 0.00 K/UL 0.00-0.11 Consult Notes Date/Time Note [...] when jensen is moved. COMMUNICATION Primary Language: Icelandic Able to Verbalize needs: Yes Vision:good; no [...] Minutes: 20 min Jesica Murphy,PT Tx License: [id number] Required Components in Determining Evaluation Level History: No personal factors or comorbidities: No (93216) 1-2 personal factors and/or comorbidities: Yes (93535) 3 or more personal factors and/ or comorbidities: No (74578) Examination of Body System(s) Addressing 1-2 elements: Yes (87724) Addressing a total of 3 or more elements: No (46992) Addressing a total of 4 or more elements: No (28997) Clinical Presentation Stable: Yes (24540) Evolving: No (36564) Unstable: No (84768) Clinical Decision Making (Complexity) Low: No (14456) Moderate: Yes (24547) High: No (68711) Jesica Murphy PT [facility] [employer] 2023-08-15 10:01:34 Associated Order(s): CONSULT CARDIOLOGY [facility] Cardiology Consult Note Patient: Saturnino Maldonado [...] of Onset No Significant Medical Problems Mother MA (myocardial infarction) Father SOCIAL HISTORY Social History [...] specified complication Elevated troponins: Likely type II MA in the setting of underlying ELIEZER/elevated blood [...] per primary team. Last Two A1C Results ([facility]/LC, POCT, [facility]) Recent Labs 04/20/23195408/14/23 1547 [...] feel free to call our office at [phone]. I would be happy to be of further assistance for Saturnino Maldonado wellbeing. Voice recognition software has been used to create portions of this document. An attempt to proofread has been made to minimize errors. Please do not hesitate to call with any questions. Benja Rivera MD [employer], Division of Cardiology [facility] 2023-04-21 08:46:48 Associated Order(s): CONSULT ENDOCRINOLOGY Endocrinology Consult Note Consultation requested by: Service: White team Reason for Consultation: Diabetes Date of Service: 04/21/23 HPI 57 year old male with a PMH of HTN, T2DM, Fmhx premature CAD who presented with complaints of polyuria and weakness at [facility] ER. Patient transferred to [place] for further work up. Endocrinology consulted for diabetes management Diabetes Type and year diagnosed: 2011, type 2 Diabetes complications: none Hx of DM regimen: no meds for 3 years Compliance: - BG monitoring? - Hypoglycemia hx: no Hypoglycemia unawareness? no Symptoms of hyperglycemia: polyuria Living situation and support: homeless, lives with different relatives Diabetes doctor: PCP in [place], has not seen for few years Family hx of diabetes: no HX of glucocorticoid use: no HX of transfusions or EPO in last 6 months: no PAST MEDICAL HISTORY Past Medical History: Diagnosis Date HTN (hypertension) Uncontrolled diabetes mellitus with hyperglycemia History reviewed. No pertinent surgical history. Family History Problem Relation Age of Onset No Significant Medical Problems Mother MA (myocardial infarction) Father Social History Tobacco Use [...] with complaints of polyuria and weakness at [facility] ER. Patient transferred to [place] for further work up. Endocrinology consulted for [...] Cabrera.. Austin Amaro. Endocrinology Fellow, PGY 5 T DESK ADMINISTRATOR Associated attestation - Rita Cabrera MD - 04/22/2023 2:11 PM FRONT DESK ADMINISTRATOR Endocrinology Faculty Attestation: I evaluated this patient's progress on 04/21/[address] Amaro note as written and revised. I actively participated in the decision-making process. Please see the resident's note for additional details that includes pertinent addendums I made directly in the note during revision. Rita Cabrera MD Solid Surface Fabricator Division of Endocrinology IM-ENDOCRINOLOGY,DIABET ES & METABOLISM [facility] - Health History and Physical Notes Date/Time Note Provider Source 2023-08-21 22:53:53 [facility] Hospitalist Admission H&P Date of Service: [...] consulted. Patient was given the application for [employer] on last admission and will need to [...] of Onset No Significant Medical Problems Mother MA (myocardial infarction) Father SOCIAL HISTORY Social History [...] Tobacco user?: NO Patient will require observation [employer] was verified during stay Lyubov Banda MD [facility] 2023 22:58:21 MEDICINE [facility] ADMIT H&P Date of Service: [...] of Onset No Significant Medical Problems Mother MA (myocardial infarction) Father ALLERGIES No Known Allergies [...] present Code Status: Presumed Full Code T [facility] EMERGENCY PHYSICIAN STAFF [facility] 2023-04-21 00:39:12 [facility] Admit H&P PCP: Erik Louie Jr Date of Service: 04/20/2023 CHIEF COMPLAINT: Polyuria HISTORY OF PRESENT ILLNESS Saturnino Maldonado is a 57 year old male with a PMH of HTN, T2DM, Fmhx premature CAD who presented with complaints of polyuria and weakness at [facility] ER. Patient transferred to [place] for further work up. Patient reports that [...] or drug use. Family history significant for MA in father in his 40s. Currently not [...] use drugs. Family history: family history includes MA (myocardial infarction) in his father; No Significant [...] help with resources. Plan: - Admit to [facility] - Trend Troponin to peak - Heparin [...] Internal Medicine Department PGY 2, [place] Team T DESK ADMINISTRATOR Associated attestation - Bret Banda MD - 04/21/2023 2:47 PM FRONT DESK ADMINISTRATOR I reviewed patient's chart, vitals, lab work, current medications and other diagnostic studies. I saw and examined the patient today and agree with the detailed note. I actively participated in the decision-making process. Bret Banda MD Solid Surface Fabricator Division of Cardiology [facility] Notes Date/Time Note Provider Source 2023-08-24 [...] Outcome: Adequate for discharge Kalina Georges RN [facility] 2023-08-24 13:14:04 Problem: Pain Goal: Control of [...] Absence of falls Outcome: Adequate for discharge [facility] 2023-08-23 07:12:12 Problem: Pain Goal: Control of [...] Outcome: Progressing as expected Abi Lowery RN [facility] 2023-08-22 22:07:54 Problem: Pain Goal: Control of [...] Outcome: Progressing as expected Tammy Sweeney RN [facility] 2023-08-22 08:41:53 Problem: Pain Goal: Control of [...] Outcome: Progressing as expected Mihaela Lopez RN [facility] 2023-08-22 03:26:01 Problem: Pain Goal: Control of [...] Outcome: Progressing as expected Angeline Claudio RN [facility] 2023-08-21 23:32:26 Patient admitted to [facility] for diagnosis of ELIEZER, urinary obstruction Patient agrees to admission, discussed plan of care with patient and family. Patient is awake, alert, oriented, resp reg unlabored, color appropriate for race, PIV intact No adverse reaction to medications administered while in ED Belongings with patient to unit Report to Xu VILLAGRAN Chela Reyes RN [facility] 2023-08-21 19:43:36 Pt C/O RLQ pain that started yesterday, pt states last BM 08/16/2023. 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 [...] 0.01 - 0.09 10*3/uL COMP. METABOLIC PANEL (43274) - Abnormal NA 120 (*) 135 - [...] CONTRAST Cbc with Diff Comp. Metabolic Panel (76607) Lipase Urinalysis Basic Metabolic Panel (NA, K, [...] treatment AdmissionCare documentation entered by: Cosme Cardona [facility] [employer], 27th edition, Copyright ? 2022 [facility] [employer] [facility] All Rights Reserved. [id number]:26:32-05:00 ED COURSE ED Course as of 08/21/23 [...] Electronically signed by: Cosme Cardona DO 08/21/23 5648 [facility] 2023-08-21 19:39:00 AdmissionCare Guideline: Urologic Disease, Inpatient [...] treatment AdmissionCare documentation entered by: Cosme Cardona [facility], 27th edition, Copyright ? [address] [facility] [address] All Rights Reserved. [id number]:26:32-05:00 [facility] 2023-08-17 08:32:29 ----- Message from Yary Renner [...] with one of us in 3-4 weeks. [facility] 2023-08-16 17:56:55 Summary: discharge transportation Discharge paperwork provided, patient stated he does not have a ride. Transportation was arranged with voucher. Discharge location: [address] [place] [address] Patient verbalized understanding. Hilary Quinones RN [facility] 2023-08-16 17:19:16 Problem: Pain Goal: Control of pain at or below patient's documented comfort goal Outcome: Resolved Goal: Reduction in pain sensation Outcome: Resolved Problem: Skin integrity Impaired (Risk or Actual) Goal: Prevention of new skin breakdown Outcome: Resolved Problem: Venous Thromboembolism, (actual or risk of) Goal: Absence of venous thromboembolism (Risk) Outcome: Resolved [facility] 2023-08-16 10:33:18 Summary: jensen Jensen discontinued without complications. Patient given lactulose PO. Patient notified to notify nurse and to leave urine/stool before flushing for nursing staff to assess. Patient verbalized understanding. [facility] 2023-08-16 00:51:24 Problem: Pain Goal: Control of pain at or below patient's documented comfort goal Outcome: Progressing as expected Goal: Reduction in pain sensation Outcome: Progressing as expected Problem: Skin integrity Impaired (Risk or Actual) Goal: Prevention of new skin breakdown Outcome: Progressing as expected Problem: Venous Thromboembolism, (actual or risk of) Goal: Absence of venous thromboembolism (Risk) Outcome: Progressing as expected [facility] 2023-08-15 19:27:06 Problem: Pain Goal: Control of pain at or below patient's documented comfort goal Outcome: Progressing as expected Goal: Reduction in pain sensation Outcome: Progressing as expected Problem: Skin integrity Impaired (Risk or Actual) Goal: Prevention of new skin breakdown Outcome: Progressing as expected Problem: Venous Thromboembolism, (actual or risk of) Goal: Absence of venous thromboembolism (Risk) Outcome: Progressing as expected [facility] Libia Johnson RN [facility] 2023 23:43:36 Problem: Pain Goal: Control of pain at or below patient's documented comfort goal Outcome: Progressing as expected Goal: Reduction in pain sensation Outcome: Progressing as expected Problem: Skin integrity Impaired (Risk or Actual) Goal: Prevention of new skin breakdown Outcome: Progressing as expected Problem: Venous Thromboembolism, (actual or risk of) Goal: Absence of venous thromboembolism (Risk) Outcome: Progressing as expected [facility] 2023 23:01:15 Patient admitted to [facility] for diagnosis of Hypertension, elevated troponin, urine retention, ELIEZER, hypokalemia. Patient agrees to admission, discussed plan of care with patient and family. Patient is awake, alert, oriented, resp reg unlabored, color appropriate for race, PIV intact No adverse reaction to medications administered while in ED Belongings with patient to unit Report to [facility] RN Josi Miller RN [facility] 2023 18:56:57 Handoff report given to Josi VILLAGRAN Nunu Fang RN [facility] 2023 14:42:29 Has been out of diabetic, BP meds since April. States he can't "afford it". Struggling with constipation for "several days". He called EMS today for excessive fatigue and worsening hypertension. He is A&Ox4 and able to ambulate. Alba Hernandez RN [facility] 2023 14:38:00 Associated Order(s): EKG-12 Lead ROUTINE ONCE Pre-Procedure Diagnose(s): Hypertension, unspecified type Post-Procedure Diagnose(s): Hypertension, unspecified type; Elevated troponin I level; Urine retention [facility] Emergency Department Note Patient Name: Saturnino Maldonado Date of : 1965 58 year old male Treatment Room: TX6/TX6 Primary Care Physician: Erik Louie Jr Patient Escorted by: Self [9] Mode of Arrival: EMS - [place] [46] EMS Treatment Prior to ED Arrival: [...] History provided by: Patient and medical records contract analyst used: No Past Medical History/Immunizations: Past Medical [...] ED Physician in the absence of a bereavement counselor: yes Previous ECG: Previous ECG: Compared to [...] Electronically signed by: Umang Reynaga MD 08/14/231851 [facility] 2023 14:38:00 AdmissionCare Guideline: Renal Failure (Acute), [...] serial assessments) AdmissionCare documentation [facility] by: [facility] [employer] edition, Copyright ? 2022 [employer] All Rights Reserved. [id number]:45:18-05:00 [facility] [employer] 2023 14:38:00 AdmissionCare Guideline: Renal Failure (Acute) [...] patients) AdmissionCare documentation entered by: Umang Reynaga [employer] edition, Copyright ? 2022 [employer] All Rights Reserved. [id number]:00:25-05:00 [facility] [employer] 2023-04-27 15:56:14 TRANSITIONAL CARE MANAGEMENT ASSESSMENT 04/27/2023 Saturnino Maldonado [id number] Saturnino Maldonado is a 57 year old /White male was admitted on 04/20/[address] He was discharged on 04/23/23 with [...] to check in. No linked episodes TCM Ryj-rddy-jd-face outreach documentation: Future Appointments: T DESK ADMINISTRATOR Jeannette Dawn LVN [facility] 2023-04-23 18:39:42 Patient refuses to take taxi voucher which takes him directly to [facility] stating, "My brother is on his way to pick me up. I don't want to upset him as it is anymore." When asked if his brother is going to take him to [facility], patient stated, "I don't know. That will be between me and my brother." Transportation in room, wheeled patient downstairs to [facility]. A Sparks RN [facility] 2023-04-23 17:33:42 Problem: Glucose control Goal: Glucose [...] Outcome: Progressing as expected A Whiting RN [facility] 2023-04-23 17:33:03 Problem: Glucose control Goal: Glucose [...] Valentino Whiting RN Outcome: Progressing as expected [facility] 2023-04-23 10:51:50 Problem: Glucose control Goal: Glucose [...] of cognitive ability Outcome: Progressing as expected [facility] 2023-04-23 00:56:44 Problem: Mental Status - Impaired Goal: Able to achieve maximum level of cognitive ability Outcome: Progressing as expected [facility] 2023-04-23 00:52:07 Problem: Glucose control Goal: Glucose [...] within specified parameters Outcome: Progressing as expected [facility] 2023-04-22 08:03:00 Problem: Glucose control Goal: Glucose [...] within specified parameters Outcome: Progressing as expected [facility] 2023-04-20 23:38:56 Problem: Glucose control Goal: Glucose [...] within specified parameters Outcome: Progressing as expected [facility] 2023-04-20 21:49:51 Patient admitted to [facility] for diagnosis of WEAKNESS, NSTEMI, HYPERGLYCEMIA Patient agrees to admission, discussed plan of care with patient. Patient is awake, alert, oriented, resp reg unlabored, color appropriate for race, PIV intact No adverse reaction to medications administered while in ED Belongings with patient to unit Report to MARIE VILLAGRAN REPORT GIVEN TO MEDIC FOR [facility], PT LOADED TO BE TRANSFERRED. HEPARIN INFUSING AT 700 UNITS/ HOUR. T DESK ADMINISTRATOR Jaelyn Vargas RN [facility] 2023-04-20 21:38:11 Report called to [facility], spoke with Marie VILLAGRAN. Pt awaiting EMS transfer. T DESK ADMINISTRATOR [facility] 2023-04-20 20:59:06 [facility] ETA 45 MIN per Chen A Carrero PCT [facility] 2023-04-20 20:54:15 Associated Order(s): Critical Care Critical [...] separately billable procedures and treating other patients. [facility] 2023-04-20 20:00:00 Patient aware of UA sample needed. Unable to provide sample at this moment. Urinal at bedside. Call light within reach. 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 Per patient he was diagnosed with DM five years ago and stopped taking home meds-Metformin about three years ago. Patient c/o of being weak and increased UOP. Patient was nauseous BAKED AND GRAPHITE INSPECTOR but has resolved since. [facility] 2023-04-20 19:43:00 EMERGENCY DEPARTMENT ENCOUNTER [facility] Patient Name: Saturnino Maldonado Date of : 1965 57 year old Exam Room:Room/bed info not found Primary Care Physician: No primary care provider on file. 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 Per patient he was diagnosed with DM five years ago and stopped taking home meds-Metformin about three years ago. Patient c/o of being weak and increased UOP. Patient was nauseous BAKED AND GRAPHITE INSPECTOR but has resolved since. HPI History provided [...] 0.01 - 0.09 10*3/uL COMP. METABOLIC PANEL (27123) - Abnormal NA 129 (*) 135 - [...] VW CBC WITH DIFF COMP. METABOLIC PANEL (16641) URINALYSIS URINE DRUG (IMMUNOASSAY) - COMPREHENSIVE DRUG SCREEN W/O REFLEX ETHANOL POCT GLUCOSE (AUTOMATED) Troponin I Prothrombin Time / INR aPTT aPTT (for use with Heparin Infusion) Ferritin Serum Iron Panel Troponin I Thyroid Stimulating Hormone Glycosylated Hemoglobin (A1C) Phosphorus Cbc with Diff Basic Metabolic Panel (NA, K, CL, CO2, GLUCOSE, BUN, CREATININE, CA) Magnesium Lipid Panel (60060)(Total Cholesterol, Triglycerides, HDL) O2 Per Protocol Orders [...] mg Procedures EKG Time 1950 Sinus tach [place] normal Intervals normal No acute ischemia Notes [...] demonstrates that he is having a silent MA. He has elevated troponin of 0.154. Please note he does not have any chest pain or shortness of breath. EKG does not demonstrate a STEMI. He was started on heparin, Plavix, and aspirin. The patient may require cardiac catheterization. The patient was transferred to [place] for further evaluation. History, physical exam findings, [...] this patient. Sergio Aponte Jr., MD Clinical Solid Surface Fabricator [facility] Emergency Department [employer] is used frequently and may produce errors. Promptly contact for obvious discrepancies. Sergio Aponte MD 04/21/23 0025 [facility] [employer] EMERGENCY PHYSICIAN STAFF [facility]
[2023-12-28 21:01] LABS: Absolute Eosinophils 0.3 K/uL (0-0.5); Absolute Lymphocytes (CBC) 2.1 K/uL (0.7-4.9); Absolute Monocytes 0.6 K/uL (0.1-1.3); Absolute Neutrophil 5.2 K/uL (1.8-8.0); Basophils % 0.6 % (0-1.3); Eosinophils % 3.1 % (0-4.4); Hematocrit 31.9 % (39.6-49.0); Hemoglobin 10.6 g/dL (13.6-17.9); Lymphocytes % 25.9 % (15.3-44.8); MCH 27.9 pg (27.0-35.0); MCHC 33.2 g/dL (32.0-36.0); MPV 7.3 fL (7.6-11.3); Monocytes % 6.8 % (3.3-12.3); Neutrophils % 63.6 % (41.7-73.7); Platelets 476 thou/uL (152-406); Red Cell Distribution Width 15.2 % (12.1-15.2)
--- NOTE | 2023-12-28 21:06 | RAD REPORT ---
EXAM DESCRIPTION: RAD - Chest Single View - 12/28/2023 8:49 pm CLINICAL HISTORY: CHEST PAIN Chest pain. COMPARISON: <Comparisons> FINDINGS: Portable technique limits examination quality. The lungs are grossly clear. The heart is normal in size. No displaced fractures. IMPRESSION: No acute intrathoracic process suspected.
[2023-12-28 21:19] LABS: AST/SGOT 11 U/L (15-37); Albumin 3.2 g/dL (3.4-5.0); Albumin/Globulin Ratio 0.7 (1.1-1.8); Alkaline Phosphatase 95 U/L (45-117); Anion Gap 10.7 mEq/L (5.0-15.0); BUN Blood Urea Nitrogen 28 mg/dL (7-18); Bicarbonate 27 mEq/L (21-32); Bilirubin Total 0.5 mg/dL (0.2-1.0); Globulin 4.8 g/dL (2.3-3.5); Glomerular Filtration Rate 57 ml/min (=/>90); Glucose Level 108 mg/dL (74-106); Magnesium 1.9 mg/dL (1.6-2.4); NT PRO-BNP 580 pg/mL (<125); Potassium 3.7 mEq/L (3.5-5.1); Sodium Level 136 mEq/L (136-145); Troponin High Sensitivity 7.3 pg/mL (<58.9)
[2023-12-28 21:20] LABS: ALT/SGPT < 14 U/L (16-61); Bilirubin Direct < 0.2 mg/dL (0-0.2); Bilirubin Indirect, Calculated 0.3 mg/dL (0.2-0.8)
[2023-12-28 21:28] LABS: PT Prothrombin Time 11.6 SECONDS (9.4-12.5); Protime INR 1.04
[2023-12-28] MEDS ORDERED: VANCOMYCIN 1 GM/VIAL ONE (21:30)
[2023-12-28] MEDS ORDERED: NA CHLORIDE 0.9% 250 ML ONE (21:30)
[2023-12-28] MEDS ORDERED: CLINDAMYCIN 900MG/D5W 900 MG/50 ML IVPB IV ONE (21:30)
[2023-12-28 22:18] LABS: Sqamous Epithelial None Seen /HPF (None Seen); Urine Bacteria <20 /HPF (<20); Urine Bilirubin NEGATIVE (Negative); Urine Blood 1+ (Negative); Urine Clarity Extremely Turbid (Clear); Urine Color Yellow (Yellow); Urine Crystals Unidentified Few /HPF (None Seen); Urine Culture Reflex Order REFLEXED; Urine Glucose NEGATIVE (Negative); Urine Ketones NEGATIVE (Negative); Urine Microscopic Reflex YN ORDER UMIC; Urine Mucus Slight /HPF (None Seen); Urine Nitrite NEGATIVE (Negative); Urine Protein 1+ (Negative); Urine RBC 21-50 /HPF (None Seen); Urine Urobilinogen Normal (Normal); Urine WBC >50 /HPF (<5)
--- NOTE | 2023-12-28 22:28 | ER ---
Nurse's Notes [facility] Name: Johnnie Maldonado Age: 58 yrs Sex: Male : 1965 Arrival Date: 12/28/2023 Time: 20:14 Bed 6 Private MD: Diagnosis: Cutaneous abscess of other sites-UPPER LIP , FACIAL;Other mechanical complication of urinary (indwelling) catheter;Homelessness Presentation: 12/27 20:22 Chief complaint: EMS states: C/o jensen catheter turning red and he doesn't recall the pc2 tubing being that color so he was concerned about blood although urine in bag is clear yellow. Also c/o of oozing above his mustache after shaving 1 week ago and numbness in right hand hx of arm surgery in 2003. Coronavirus screen: At this time, the client does not indicate any symptoms associated with coronavirus-19. Ebola Screen: No symptoms or risks identified at this time. Initial Sepsis Screen: Does the patient meet any 2 criteria? No. Patient's initial sepsis screen is negative. Initial Sepsis Screen: Does the patient have a suspected source of infection? No. Patient's initial sepsis screen is negative. Risk Assessment: Do you want to hurt yourself or someone else? Patient reports no desire to harm self or others. Onset of symptoms is unknown. 20:22 Method Of Arrival: EMS: [facility] pc2 20:22 Acuity: DONTE 3 pc2 Triage Assessment: 20:29 General: Appears in no apparent distress. uncomfortable, slender, unkempt, Behavior is pc2 calm, cooperative, appropriate for age. Pain: Denies pain. EENT: No signs and/or symptoms were reported regarding the EENT system. Neuro: Level of Consciousness is awake, alert, obeys commands, Oriented to person, place, time, situation. Cardiovascular: Patient's skin is warm and dry. Respiratory: Airway is patent Respiratory effort is even, unlabored, Respiratory pattern is regular, symmetrical. GI: No signs and/or symptoms were reported involving the gastrointestinal system. : Jensen in place 18Fr Reports catheter color change. Derm: Skin small laceration to top lip above mustache. slow oozing blood. denies thinners.. reports happened shaving mustache 1 week ago. Musculoskeletal: Range of motion: intact in all extremities, Reports numbness in right hand. Historical: - PMHx: 20:27 diabetes mellitus; Hypertensive disorder; raynaud's; Urinary incontinence; pc2 - PSHx: 20:28 right arm; pc2 - Immunization history:: Adult Immunizations unknown. - Infectious Disease History:: Denies. - Social history:: Smoking status: unknown. Screenin:32 [facility] ED Fall Risk Assessment (Adult) History of falling in the last 3 months, pc2 including since admission No falls in past 3 months (0 pts) Confusion or Disorientation No (0 pts) Intoxicated or Sedated No (0 pts) Impaired Gait No (0 pts) Mobility Assist Device Used No (0 pt) Altered Elimination No (0 pt) Score/Fall Risk Level 0 - 2 = Low Risk Oriented to surroundings, Hourly rounding (assess needs \T\ fall precautionary measures) done. Abuse screen: Denies threats or abuse. Denies injuries from another. Nutritional screening: No deficits noted. Tuberculosis screening: No symptoms or risk factors identified. Assessment: 20:32 Reassessment: see triage. pc2 22:14 General: Appears in no apparent distress. comfortable, Behavior is calm, cooperative, bm8 appropriate for age. Pain: Complains of pain in mouth and right hand Pain currently is 4 out of 10 on a pain scale. Neuro: No deficits noted. Level of Consciousness is awake, alert, obeys commands, Oriented to person, place, time, situation, Appropriate for age. Cardiovascular: Denies chest pain, Capillary refill < 3 seconds in bilateral fingers toes Patient's skin is warm and dry. Respiratory: Airway is patent Respiratory effort is even, unlabored, Respiratory pattern is regular, symmetrical, Breath sounds are clear bilaterally. GI: No signs and/or symptoms were reported involving the gastrointestinal system. : Jensen in place to gravity drainage. EENT: No signs and/or symptoms were reported regarding the EENT system. Derm: Abscess located on mouth is dime sized, Reports burning, itching, pain. Musculoskeletal: No signs and/or symptoms reported regarding the musculoskeletal system. 12/28 01:18 Reassessment: Patient appears in no apparent distress at this time. No changes from bm8 previously documented assessment. Patient and/or family updated on plan of care and expected duration. Pain level reassessed. Patient is alert, oriented x 3, equal unlabored respirations, skin warm/dry/pink. Patient states feeling better. Patient states symptoms have improved. Vital Signs: 12/27 20:22 BP 150 / 99; Pulse 89; Resp 16; Temp 97.2; Pulse Ox 99% on R/A; Weight 52.16 kg; Height pc2 5 ft. 3 in. ; 21:15 BP 145 / 76; Pulse 83; Resp 18; Pulse Ox 99% on R/A; pc2 22:14 BP 155 / 95; Pulse 82; Resp 17; Temp 97.2; Pulse Ox 100% ; Pain 4/10; bm8 12/28 01:18 BP 131 / 94; Pulse 80; Resp 17; Temp 97.2; Pulse Ox 100% ; Pain 0/10; bm8 01:56 BP 139 / 80; Pulse 69; Resp 17; Temp 97.8; Pulse Ox 99% ; Pain 0/10; bm8 12/27 20:22 Body Mass Index 20.37 (52.16 kg, 160.02 cm) pc2 22:14 Pain Scale: Adult bm8 12/28 01:18 Pain Scale: Adult bm8 01:56 Pain Scale: Adult bm8 Lester Coma Score: 12/27 22:14 Eye Response: spontaneous(4). Motor Response: obeys commands(6). Verbal Response: bm8 oriented(5). Total: 15. 12/28 01:18 Eye Response: spontaneous(4). Motor Response: obeys commands(6). Verbal Response: bm8 oriented(5). Total: 15. 01:56 Eye Response: spontaneous(4). Motor Response: obeys commands(6). Verbal Response: bm8 oriented(5). Total: 15. ED Course: 12/27 20:16 Patient arrived in ED. rv1 20:20 Lucille Lozano, RN is Primary Nurse. pc2 20:26 Salvatore Doherty MD is Attending Physician. maria a 20:27 Triage completed. pc2 20:32 Arm band placed on right wrist. pc2 20:32 No provider procedures requiring assistance completed. pc2 20:33 Patient has correct armband on for positive identification. Placed in gown. Bed in low pc2 position. Call light in reach. Side rails up X2. Provided Education on: POC and time frame. Pulse ox on. NIBP on. 20:40 Inserted saline lock: 20 gauge in right antecubital area, using aseptic technique. pc2 Blood collected. Flushed with 10 mL NS. 20:43 EKG done. pc2 20:46 Basic Metabolic Panel Sent. pc2 20:46 CBC with Diff Sent. pc2 20:46 LFT's Sent. pc2 20:46 Magnesium Sent. pc2 20:46 NT PRO-BNP Sent. pc2 20:46 PT-INR Sent. pc2 20:46 Troponin HS Sent. pc2 20:47 X-ray(s) taken. pc2 20:51 XRAY Chest (1 view) In Process Unspecified. EDMS 22:17 Jensen cath. bm8 22:17 Initial lab(s) drawn, by me, sent to lab. Urine collected: Jensen catheter specimen, bm8 cloudy, veronique colored, Amount Returned: 600mL Wound culture swab sent to lab. Jensen cath inserted, using sterile technique, 18 Fr., by pa, balloon inflated, to gravity drainage, urine specimen collected. returned bloody urine. Patient tolerated well. Patient maintains SpO2 saturation greater than 95% on room air. 22:27 Anamaria Ricks MD is Hospitalizing Provider. [facility] 12/28 01:18 Patient admitted, IV remains in place. bm8 Administered Medications: 12/27 21:50 Drug: Clindamycin IVPB 900 mg IVPB once over 30 mins; (mix in 50 mL) Route: IVPB; pc2 Infused Over: 30 mins; Site: right antecubital; 12/28 01:19 Follow up: Response: No adverse reaction; IV Status: Completed infusion; IV Intake: [id number] 12/27 21:50 Drug: vancoMYCIN IVPB 1 grams IVPB once over 2 hrs Route: IVPB; Infused Over: 2 hrs; pc2 Site: right antecubital; 12/28 01:19 Follow up: Response: No adverse reaction; IV Status: Completed infusion; IV Intake: bm8 250ml Medication: 12/27 20:32 VIS not applicable for this client. pc2 Intake: 12/28 01:19 IV: 250ml; Total: 250ml. bm8 01:19 IV: 50ml; Total: 300ml. bm8 Outcome: 12/27 22:28 Decision to Hospitalize by Provider. [facility] 12/28 02:31 Admitted to Tele accompanied by nurse, via wheelchair, room 410, with chart, bm8 Condition: stable Instructed on the need for admit, Demonstrated understanding of instructions, follow-up care, medications, 02:32 Patient left the ED. bm8 Signatures: Dispatcher [employer] EDSalvatore Mora MD MD cha Villegas, Rebecca rv1 Socrates Gonzalez, RN RN bm8 Lucille Lozano, RN RN pc2 Corrections: (The following items were deleted from the chart) 12/27 20:29 20:27 PSHx: right arm (Urinary incontinence); pc2 pc2
--- NOTE | 2023-12-28 22:28 | EDPHYS ---
Physician Documentation [facility] Name: Johnnie Maldonado Age: 58 yrs Sex: Male : 1965 Arrival Date: 12/28/2023 Time: 20:14 Bed 6 Private MD: MARGARET Physician Salvatore Doherty HPI: 12/27 21:10 This 58 yrs old Male presents to ER via EMS with complaints of Problem With maria a Urinary Catheter, Numbness Of Hand, Skin Problem. Historical: - PMHx: 20:27 diabetes mellitus; Hypertensive disorder; raynaud's; Urinary incontinence; pc2 - PSHx: 20:28 right arm; pc2 - Immunization history:: Adult Immunizations unknown. - Infectious Disease History:: Denies. - Social history:: Smoking status: unknown. ROS: 21:10 Constitutional: Negative for fever, chills, and weight loss, Eyes: Negative for injury, maria a pain, redness, and discharge, Neck: Negative for injury, pain, and swelling, Cardiovascular: Negative for chest pain, palpitations, and edema, Respiratory: Negative for shortness of breath, cough, wheezing, and pleuritic chest pain, Abdomen/GI: Negative for abdominal pain, nausea, vomiting, diarrhea, and constipation, Back: Negative for injury and pain, MS/Extremity: Negative for injury and deformity, Neuro: Negative for headache, weakness, numbness, tingling, and seizure, Psych: Negative for depression, anxiety, suicide ideation, homicidal ideation, and hallucinations, Allergy/Immunology: Negative for hives, rash, and allergies, Endocrine: Negative for neck swelling, polydipsia, polyuria, polyphagia, and marked weight changes, Hematologic/Lymphatic: Negative for swollen nodes, abnormal bleeding, and unusual bruising, 21:10 ENT: Positive for of the mouth, Exam: 21:10 Constitutional: This is a well developed, well nourished patient who is awake, alert, maria a and in no acute distress. Eyes: Pupils equal round and reactive to light, extra-ocular motions intact. Lids and lashes normal. Conjunctiva and sclera are non-icteric and not injected. Cornea within normal limits. Periorbital areas with no swelling, redness, or edema. ENT: Nares patent. No nasal discharge, no septal abnormalities noted. Tympanic membranes are normal and external auditory canals are clear. Oropharynx with no redness, swelling, or masses, exudates, or evidence of obstruction, uvula midline. Mucous membranes moist. Neck: Trachea midline, no thyromegaly or masses palpated, and no cervical lymphadenopathy. Supple, full range of motion without nuchal rigidity, or vertebral point tenderness. No Meningismus. Chest/axilla: Normal chest wall appearance and motion. Nontender with no deformity. No lesions are appreciated. Cardiovascular: Regular rate and rhythm with a normal S1 and S2. No gallops, murmurs, or rubs. Normal PMI, no JVD. No pulse deficits. Respiratory: Lungs have equal breath sounds bilaterally, clear to auscultation and percussion. No rales, rhonchi or wheezes noted. No increased work of breathing, no retractions or nasal flaring. Abdomen/GI: Soft, non-tender, with normal bowel sounds. No distension or tympany. No guarding or rebound. No evidence of tenderness throughout. Back: No spinal tenderness. No costovertebral tenderness. Full range of motion. Skin: Warm, dry with normal turgor. Normal color with no rashes, no lesions, and no evidence of cellulitis. MS/ Extremity: Pulses equal, no cyanosis. Neurovascular intact. Full, normal range of motion. Neuro: Awake and alert, GCS 15, oriented to person, place, time, and situation. Cranial nerves II-XII grossly intact. Motor strength 5/5 in all extremities. Sensory grossly intact. Cerebellar exam normal. Normal gait. Psych: Awake, alert, with orientation to person, place and time. Behavior, mood, and affect are within normal limits. 21:10 Head/face: Noted is erythema, that is moderate, swelling, that is moderate, of the mouth, tenderness, 21:10 Skin: abscess, that is moderate sized, with drainage, with induration, with surrounding cellulitis, cellulitis, that is mild, induration, that is moderate is noted, 21:15 ECG was reviewed by the Attending Physician. maria a Vital Signs: 20:22 BP 150 / 99; Pulse 89; Resp 16; Temp 97.2; Pulse Ox 99% on R/A; Weight 52.16 kg; Height pc2 5 ft. 3 in. ; 21:15 BP 145 / 76; Pulse 83; Resp 18; Pulse Ox 99% on R/A; pc2 22:14 BP 155 / 95; Pulse 82; Resp 17; Temp 97.2; Pulse Ox 100% ; Pain 4/10; bm8 12/28 01:18 BP 131 / 94; Pulse 80; Resp 17; Temp 97.2; Pulse Ox 100% ; Pain 0/10; bm8 01:56 BP 139 / 80; Pulse 69; Resp 17; Temp 97.8; Pulse Ox 99% ; Pain 0/10; bm8 12/27 20:22 Body Mass Index 20.37 (52.16 kg, 160.02 cm) pc2 22:14 Pain Scale: Adult bm8 12/28 01:18 Pain Scale: Adult bm8 01:56 Pain Scale: Adult bm8 Mosby Coma Score: 12/27 22:14 Eye Response: spontaneous(4). Motor Response: obeys commands(6). Verbal Response: bm8 oriented(5). Total: 15. 12/28 01:18 Eye Response: spontaneous(4). Motor Response: obeys commands(6). Verbal Response: bm8 oriented(5). Total: 15. 01:56 Eye Response: spontaneous(4). Motor Response: obeys commands(6). Verbal Response: bm8 oriented(5). Total: 15. MDM: 12/27 20:26 Patient medically screened. [facility] 21:12 Differential diagnosis: abscess, cellulitis, insect bite, UTI, urinary retention, Bae maria a catheter problem. Data reviewed: vital signs, nurses notes, lab test result(s), EKG, radiologic studies, plain films. Consideration of Admission/Observation Patient was admitted/placed on observation. Escalation of care including admission/observation considered. I considered the following discharge prescriptions or medication management in the emergency department Medications were administered in the Emergency Department. See MAR. Independent interpretation of the following test(s) in the Emergency Department EKG: See my EKG interpretation above. Test considered but Not performed: CT: no ct max/face. Care significantly affected by the following chronic conditions: Diabetes, Hypertension, raynauds, urinary incontinence. 12/27 20:26 Order name: Basic Metabolic Panel; Complete Time: 22:18 [facility] 12/27 20:26 Order name: CBC with Diff; Complete Time: 21:08 [facility] 12/27 20:26 Order name: LFT's; Complete Time: 22:18 [facility] 12/27 20:26 Order name: Magnesium; Complete Time: 22:18 [facility] 12/27 20:26 Order name: NT PRO-BNP; Complete Time: 22:18 [facility] 12/27 20:26 Order name: PT-INR; Complete Time: 22:18 [facility] 12/27 20:26 Order name: Troponin HS; Complete Time: 22:18 [facility] 12/27 21:09 Order name: Wound Culture [facility] 12/27 21:09 Order name: Urinalysis w/ reflexes [facility] 12/27 22:25 Order name: Urine Culture [facility] 12/28 01:32 Order name: Urinalysis w/ reflexes [facility] 12/28 01:32 Order name: CBC with Automated Diff [facility] 12/28 01:32 Order name: CBC with Automated Diff [facility] 12/28 01:32 Order name: Comprehensive Metabolic Panel [facility] 12/28 01:32 Order name: Comprehensive Metabolic Panel [facility] 12/27 20:26 Order name: XRAY Chest (1 view); Complete Time: 21:08 [facility] 12/27 20:26 Order name: Cardiac monitoring; Complete Time: 20:46 [facility] 12/27 20:26 Order name: EKG - Nurse/Tech; Complete Time: 20:45 [facility] 12/27 20:26 Order name: IV Saline Lock; Complete Time: 20:46 [facility] 12/27 20:26 Order name: Labs collected and sent; Complete Time: 20:46 [facility] 12/27 20:26 Order name: O2 Per Protocol; Complete Time: 20:46 [facility] 12/27 20:26 Order name: O2 Sat Monitoring; Complete Time: 20:46 [facility] 12/27 21:09 Order name: Bae; Complete Time: 22:19 [facility] EC:15 Rate is 88 beats/min. Rhythm is regular. QRS Mcclellan is Normal. OH interval is normal. QRS maria a interval is normal. QT interval is normal. No Q waves. Clinical impression: NSR w/ Non-specific ST/T Changes and No evidence of ischemia. Interpreted by me. Reviewed by me. Administered Medications: 21:50 Drug: Clindamycin IVPB 900 mg IVPB once over 30 mins; (mix in 50 mL) Route: IVPB; pc2 Infused Over: 30 mins; Site: right antecubital; 12/28 01:19 Follow up: Response: No adverse reaction; IV Status: Completed infusion; IV Intake: [id number] 12/27 21:50 Drug: vancoMYCIN IVPB 1 grams IVPB once over 2 hrs Route: IVPB; Infused Over: 2 hrs; pc2 Site: right antecubital; 12/28 01:19 Follow up: Response: No adverse reaction; IV Status: Completed infusion; IV Intake: bm8 250ml Disposition Summary: 12/28/23 22:28 Hospitalization Ordered Notes: Hospitalization Status: Observation maria a Provider: Anamaria Ricks cha Location: Telemetry/MedSurg (observation) maria a Condition: Stable maria a Problem: new maria a Symptoms: have improved maria a Bed/Room Type: Standard maria a Room Assignment: 410(12/29/23 01:51) rv1 Diagnosis - Cutaneous abscess of other sites - UPPER LIP , FACIAL maria a - Other mechanical complication of urinary (indwelling) catheter maria a - Homelessness maria a Forms: - Medication Reconciliation Form maria a - SBAR form maria a - Leadership Thank You Letter maria a Signatures: Dispatcher [employer] EDMS Salvatore Doherty MD MD cha Villegas, Rebecca rv1 Lucille Lozano, RN RN pc2 Socrates Gonzalez RN bm8 Corrections: (The following items were deleted from the chart) 12/27 20:29 20:27 PSHx: right arm (Urinary incontinence); pc2 pc2 21:10 21:10 Wound Culture+BA.LAB.BRZ ordered. EDMS EDMS 21:10 21:10 Urinalysis+U.LAB.BRZ ordered. EDMS EDMS 12/28 01:51 12/27 22:28 maria a rv1
--- NOTE | 2023-12-28 23:40 | P.HP ---
Certification for Inpatient With expected LOS: >2 Midnights Practitioner: I am a practitioner with admitting privileges, knowledge of patient current condition, hospital course, and medical plan of care. Services: Services provided to patient in accordance with Admission requirements found in Title 42 Section 412.3 of the Code of Federal Regulations Patient History Date of Service: 12/29/23 Reason for admission: lip abscess History of Present Illness: 58-year-old male with history of diabetes, hypertension, Raynaud's, history of urinary incontinence with Jensen presents with multiple complaints including lip abscess. Patient has multiple social issues including homelessness. He reports that Jensen was placed 1 month ago. Had a recent hospitalization. Reports that lip abscess has been more prominent in the last 1 week. In the ER IV antibiotics were given including vancomycin, clindamycin. Labs were ordered. ENT was messaged. Jensen catheter was replaced. Admission is being recommended for IV antibiotics, ENT consultation and [employer]. Allergies No Known Allergies Allergy (Verified 12/29/23 03:32) Home Medications: NK [No Home Meds] 12/29/23 - Past Medical/Surgical History Diabetic: Yes -: Diabetes mellitusNIDDM -: Urinary incontinence -: Urinary retention Psychosocial/ Personal History: Pt has been seen at this facility and a nearby facility for the same recurrent issue but is non compliant, removes jensen and does not follow up with specialists as recommended. Currently homeless - Social History Alcohol use: No CD- Drugs: No Caffeine use: Yes Physical Examination - Physical Exam General: Oriented x3 HEENT: Atraumatic Neck: Supple Respiratory: Clear to auscultation bilaterally, Normal air movement Cardiovascular: Regular rate/rhythm, Normal S1 S2 Gastrointestinal: Normal bowel sounds Musculoskeletal: No clubbing Integumentary: Other (Superior lip swelling erythema) - Studies Laboratory Data (last 24 hrs) 12/28/23 12/28/23 12/28/23 20:45 20:45 20:45 WBC 8.20 Hgb 10.6 L Hct 31.9 L Plt Count 476 H PT 11.6 INR 1.04 Sodium 136 Potassium 3.7 BUN 28 H Creatinine 1.45 H Glucose 108 H Magnesium 1.9 Total Bilirubin 0.5 AST 11 L ALT < 14 L Alkaline Phosphatase 95 Assessment and Plan - Problems (Diagnosis) (1) Lip abscess Current Visit: Yes Status: Acute (2) ELIEZER (acute kidney injury) Current Visit: No Status: Acute (3) Acute urinary retention Current Visit: No Status: Acute - Plan 58-year-old male with history of diabetes presents with complaints of swollen lip. Lip abscess Diabetes Urinary retention Chronic kidney disease Plan: Admit to MedSurg Continue IV antibiotics Follow-up cultures ENT was messaged in ER Fingerstick blood sugars, sliding scale insulin Home medication reconciliation Serial labs Avoid nephrotoxic medications as much as possible DVT: SCDs Code: Full - Advance Directives Does patient have a Living Will: No Does patient have a Durable POA for Healthcare: No
[2023-12-29] MEDS ORDERED: ACETAMINOPHEN 500 MG TAB PO PRN (01:26)
[2023-12-29] MEDS ORDERED: D10W 125 ML IV PRN (01:31)
[2023-12-29] MEDS ORDERED: GLUCAGON 1 MG/VIAL IM PRN (01:31)
[2023-12-29] MEDS ORDERED: VANCOMYCIN 1 GM in NA CHLORIDE 0.9% 250 ML IVPB SCH ×2 (01:34→21:00)
[2023-12-29 03:35] VITALS: BMI 20.3
[2023-12-29] MEDS: INSULIN REGULAR (HUMAN) 100 UNIT/ML SQ SCH (07:52)
[2023-12-29] MEDS: CLINDAMYCIN 600MG/D5W 50 ML IV SCH (07:52)
--- NOTE | 2023-12-29 08:51 | P.PN ---
Date of Service: 12/29/23 ENT Consultation Please see dictated H&P for details. Impression: 1. Upper lip abscess. Plan: 1. After lengthy discussion, patient is refusing I&D at this time. 2. Would recommend continuing IV antibiotics as prescribed. 3. NPO after midnight tonight, in the case that he changes his mind. 4. If he decides to undergo I&D with packing, he prefers general sedation and will need consent signed.
[2023-12-29] MEDS ORDERED: CLINDAMYCIN INJ 600 MG in NA CHLORIDE 0.9% 50 ML IV SCH (09:00)
--- NOTE | 2023-12-29 09:21 | CON ---
Date of Consultation: 12/29/2023 Referring Physicians: Dr. Ricks and Dr. Doherty. History Of Present Illness: The patient is a 58-year-old male with history of diabetes, hypertension , Raynaud's syndrome, and history of urinary incontinence with Bae, who presents to the hospital wi th multiple medical complaints. Upon examination, the patient has a large abscess involving the uppe r lip and I was consulted for further evaluation. He reports swelling and pain that started approxim ately 1 week ago involving the upper lip after shaving and an ulcer formed in the midline lip at the philtrum and he states that a scab formed, but he was also able to express drainage from this area. He denies bleeding or prior abscess in this area. No other ENT complaints today. Past Medical History: As mentioned. Allergies: NO KNOWN DRUG ALLERGIES. Current Medications: None. Social History: Denies alcohol, tobacco, or illicit drugs. Review of Systems: Head: Negative for headache, head trauma. Eyes: Negative for drainage, blurred or double vision. Ears: Negative for hearing loss, otorrhea, or otalgia. Nose: Positive for rhinorrhea. Negative for bleeding or congestion. Oral Cavity: Positive for upper lip swelling and pain and nonhealing sore. Neck: Negative for neck mass or enlarged thyroid. Physical Examination: Vital Signs: Stable. The patient is awake, alert, and oriented to person, place, time. Head: Atraumatic, normocephalic. Eyes: PERRLA/EOMI. Ears: Deferred. Nose: Moist intranasal mucosa. Midline septum. Oral Cavity: Approximately 1 to 2 cm mid upper lip abscess with central ulceration. The area is ten mark to palpation. No evidence of exudate expressed from the wound. Neck: Supple. Trachea midline. Laboratory Data: Reviewed. The patient's white blood cell count is normal. Diagnosis: Upper lip abscess. Recommendations: 1.I recommended incision and drainage with packing of the upper lip abscess, but the patient is curr ently declining due to the fact that he would have to change out the packing every 2 to 3 days and he states he is unable to do so. He also does not have much family support to help him. He prefers ot herwise to continue antibiotics as prescribed. 2.The patient is to be n.p.o. after midnight in the case that he changes his mind, and I will be hap py to add him on for tomorrow for I and D of upper lip abscess if needed. 3.We will follow as needed. ZOE/NICKOLAS Voice ID: [id number] Report ID: [id number]
[2023-12-29] MEDS ORDERED: PNEUMOCOCCAL VACCINE 0.5 ML IMVAC ONE (12:00)
--- NOTE | 2023-12-29 12:07 | EKG ---
Test Date: 2023-12-28 Test Time: 20:43:18 Bagger Meat: KYLIE MEASUREMENT RESULTS: Intervals: Rate: 88 WI: 160 QRSD: 98 QT: 376 QTc: 454 [place]: P: 56 WI: 160 QRS: 65 T: 24 INTERPRETIVE STATEMENTS: Sinus rhythm with frequent premature ventricular complexes Inferior infarct, age undetermined Abnormal ECG Compared to ECG 10/14/2023 13:35:31 Ventricular premature complex(es) now present Myocardial infarct finding now present Sinus tachycardia no longer present Electronically Signed On 12-29-23 12:06:12 CDT by Dennis Tavarez
[2023-12-29] MEDS: HYDRALAZINE HCL 20 MG/ML VIAL IV PRN (17:07)
--- NOTE | 2023-12-29 17:36 | P.PN ---
Subjective Date of Service: 12/29/23 Chief Complaint: lip abscess Patient denies any new complaint. No recorded fever. Physical Examination - Vital Signs Temperature: 97.1 F Blood Pressure: 198/101 Pulse: 75 Respirations: 12 Pulse Ox (%): 100 - Studies Laboratory Data (last 24 hrs) 12/28/23 12/28/23 12/28/23 20:45 20:45 20:45 WBC 8.20 Hgb 10.6 L Hct 31.9 L Plt Count 476 H PT 11.6 INR 1.04 Sodium 136 Potassium 3.7 BUN 28 H Creatinine 1.45 H Glucose 108 H Magnesium 1.9 Total Bilirubin 0.5 AST 11 L ALT < 14 L Alkaline Phosphatase 95 Microbiology Data (last 24 hrs): 12/28/23 21:48 Wound - Abscess Gram Stain - Final Assessment And Plan - Plan Physical examination General: Alert and oriented x3, NAD, HEENT: Conjunctiva not pale, anicteric sclera, swollen/nodule on upper lip Neck: Supple, no elevated JVD Heart: Heart sounds 1 and 2 normal, regular rhythm, normal rate, no pedal edema Lungs: Clear to auscultation bilaterally, adequate breath sounds bilaterally, no rhonchi or crackles. Abdomen: Soft, nondistended, nontender, normal bowel sounds. Extremities: No tenderness, no deformity Skin: Normal skin turgor, no rash, no nodules or ulcers. Neuro: No focal motor deficit. Normal speech. Psychiatry: Normal mood, no agitation. Diagnosis Lip abscess Urinary retention ELIEZER Type 2 diabetes Plan: Lip abscess Continue current antibiotics. ENT Dr. Villarreal input appreciated. Dr. Villarreal is planning on I&D in a.m. Analgesics as needed. ELIEZER IV hydration Monitor renal function. History of urinary retention Indwelling catheter related UTI Patient has an indwelling Bae catheter And Levaquin to cover UTI. Follow urine culture. DM type II Insulin sliding scale Check hemoglobin A1c Chronic anemia Stable Monitor CBC DVT prophylaxis: Heparin SQ Advanced directive: Full code
[2023-12-29] MEDS: Levofloxacin 750mg IV 750 MG/150 ML BAG IV SCH (18:02)
[2023-12-30] MEDS: HEPARIN 5000 UNIT/ML 1 ML VIAL SQ SCH (00:59)
[2023-12-30 06:06] LABS: Absolute Eosinophils 0.2 K/uL (0-0.5); Absolute Monocytes 0.6 K/uL (0.1-1.3); Absolute Neutrophil 4.6 K/uL (1.8-8.0); Basophils % 0.6 % (0-1.3); Eosinophils % 3.1 % (0-4.4); Hematocrit 32.7 % (39.6-49.0); Hemoglobin 10.8 g/dL (13.6-17.9); Lymphocytes % 26.6 % (15.3-44.8); MCH 27.7 pg (27.0-35.0); MCHC 32.9 g/dL (32.0-36.0); MCV 84.1 fL (80-100); MPV 7.4 fL (7.6-11.3); Monocytes % 8.2 % (3.3-12.3); Neutrophils % 61.5 % (41.7-73.7); Platelets 464 thou/uL (152-406); RBC Red Blood Cell Count 3.89 M/uL (4.33-5.43); Red Cell Distribution Width 15.5 % (12.1-15.2)
[2023-12-30 06:22] LABS: Albumin 3.2 g/dL (3.4-5.0); Albumin/Globulin Ratio 0.7 (1.1-1.8); Alkaline Phosphatase 102 U/L (45-117); Anion Gap 10.8 mEq/L (5.0-15.0); BUN Blood Urea Nitrogen 29 mg/dL (7-18); Bicarbonate 25 mEq/L (21-32); Bilirubin Total 0.3 mg/dL (0.2-1.0); Globulin 4.9 g/dL (2.3-3.5); Glomerular Filtration Rate 75 ml/min (=/>90); Glucose Level 156 mg/dL (74-106); Potassium 3.8 mEq/L (3.5-5.1); Protein, Total 8.1 g/dL (6.4-8.2); Sodium Level 137 mEq/L (136-145)
[2023-12-30 06:25] LABS: ALT/SGPT < 14 U/L (16-61); AST/SGOT < 10 U/L (15-37)
[2023-12-30] MEDS: BUPIVACAINE 0.25% PF 10 ML VIAL ONE (07:15)
[2023-12-30] MEDS ORDERED: MIDAZOLAM HCL 2 MG/2 ML INJ ONE (07:26)
[2023-12-30] MEDS ORDERED: LIDOCAINE 2% MPF 5 ML VIAL ONE (07:26)
[2023-12-30] MEDS ORDERED: ONDANSETRON 4 MG/2 ML VIAL ONE (07:26)
[2023-12-30] MEDS ORDERED: propofoL 200 MG/20 ML VIAL IV ONE (07:26)
[2023-12-30] MEDS ORDERED: FENTANYL CITR 100 MCG/2 ML ONE (07:26)
[2023-12-30] MEDS: NA CHLORIDE 0.9% 1,000 ML ONE (08:37)
[2023-12-30] MEDS ORDERED: dexAMETHasone 4 MG/ML VIAL ONE (08:46)
[2023-12-30] MEDS ORDERED: EPHEDRINE SULF 50 MG/ML VIAL ONE (08:47)
[2023-12-30] MEDS: LIDOCAINE HCL/EPINEPHRINE 20 ML MDV ONE (09:01)
--- NOTE | 2023-12-30 17:18 | P.PN ---
Subjective Date of Service: 12/30/23 Chief Complaint: lip abscess Status post I&D of upper lip abscess Patient has no new complaint. He is tolerating his diet. Physical Examination - Vital Signs Temperature: 98.0 F Blood Pressure: 121/97 Pulse: 120 Respirations: 16 Pulse Ox (%): 98 - Studies Microbiology Data (last 24 hrs): 12/28/23 21:48 Wound - Abscess Gram Stain - Final Assessment And Plan - Plan Physical examination General: Alert and oriented x3, NAD, HEENT: Upper lip I&D wound dressed. Heart: Heart sounds 1 and 2 normal, regular rhythm, normal rate, no pedal edema Lungs: Clear to auscultation bilaterally, adequate breath sounds bilaterally, no rhonchi or crackles. Abdomen: Soft, nondistended, nontender, normal bowel sounds. Extremities: No tenderness, no deformity Skin: Normal skin turgor, no rash, no nodules or ulcers. Neuro: No focal motor deficit. Normal speech. Psychiatry: Normal mood, no agitation. Diagnosis Lip abscess Urinary retention ELIEZER Type 2 diabetes Plan: Lip abscess Status post I&D of lip abscess by Dr. Villarreal. Continue IV Levaquin and clindamycin ENT Dr. Villarreal input appreciated. Analgesics as needed. ELIEZER Resolved with IV hydration. Monitor renal function. History of urinary retention Indwelling catheter related UTI Patient has an indwelling Bae catheter Urine culture is growing gram-negative rods. Continue Levaquin. Follow urine culture. DM type II Insulin sliding scale Hemoglobin A1c is 9.0 Metformin on discharge. Chronic anemia Stable Monitor CBC DVT prophylaxis: Heparin SQ Advanced directive: Full code
[2023-12-30 23:23] VITALS: O2SAT 97
--- NOTE | 2023-12-31 08:57 | P.DS ---
Admission Date: 12/29/23 Discharge Date: 12/31/23 Disposition: ROUTINE DISCHARGE Discharge Condition: GOOD Reason for Admission: lip abscess Brief History of Present Illness: 58-year-old male with history of diabetes, hypertension, Raynaud's, history of urinary incontinence with Bae presented with multiple complaints including lip abscess. Patient has multiple social issues including homelessness. He reports that Bae was placed 1 month ago. He reported that lip abscess got worse since 1 week ago. In the ER IV antibiotics were given including vancomycin, clindamycin. Labs were ordered. ENT was was contacted, Bae catheter was replaced and patient admitted for further management. Hospital Course: Patient was admitted to the medical floor and the following medical problems addressed: Diagnosis Lip abscess Urinary retention ELIEZER Type 2 diabetes Plan: Lip abscess Status post I&D of lip abscess by ENT Dr. Villarreal. Patient treated IV Levaquin and clindamycin Patient discharged with oral Levaquin and doxycycline Analgesics as needed. ELIEZER Resolved with IV hydration. History of urinary retention Indwelling catheter related UTI Patient has an indwelling Bae catheter Urine culture grew GNR Patient treated with Levaquin DM type II Managed with insulin sliding scale during the hospital stay Hemoglobin A1c is 9.0 Metformin on discharge. Chronic anemia Stable Vital Signs/Physical Exam: Temp Pulse Resp BP Pulse Ox 96.5 F L 103 H 16 161/92 H 98 12/31/23 04:00 12/31/23 04:00 12/31/23 04:00 12/31/23 04:00 12/31/23 04:00 Laboratory Data at Discharge: WBC 7.50 thou/uL (4.3-10.9) 12/30/23 05:43 Hgb 10.8 g/dL (13.6-17.9) L 12/30/23 05:43 Hct 32.7 % (39.6-49.0) L 12/30/23 05:43 Plt Count 464 thou/uL (152-406) H 12/30/23 05:43 PT 11.6 SECONDS (9.4-12.5) 12/28/23 20:45 INR 1.04 12/28/23 20:45 Sodium 137 mEq/L (136-145) 12/30/23 05:43 Potassium 3.8 mEq/L (3.5-5.1) 12/30/23 05:43 BUN 29 mg/dL (7-18) H 12/30/23 05:43 Creatinine 1.14 mg/dL (0.70-1.30) 12/30/23 05:43 Glucose 156 mg/dL (74-106) H 12/30/23 05:43 Magnesium 1.9 mg/dL (1.6-2.4) 12/28/23 20:45 Total Bilirubin 0.3 mg/dL (0.2-1.0) 12/30/23 05:43 AST < 10 U/L (15-37) L 12/30/23 05:43 ALT < 14 U/L (16-61) L 12/30/23 05:43 Alkaline Phosphatase 102 U/L (45-117) 12/30/23 05:43 Home Medications: Codeine/APAP [Tylenol W/Codeine #3 tab] 1 tab PO Q6HP PRN #15 tab 12/31/23 Doxycycline Hyclate [Vibramycin] 100 mg PO BID #28 cap 12/31/23 Metformin HCl 500 mg PO BID #60 tab 12/31/23 levoFLOXacin [Levaquin] 750 mg PO DAILY #7 tab 12/31/23 New Medications: Codeine/APAP [Tylenol W/Codeine #3 tab] 1 tab PO Q6HP PRN #15 tab PRN Reason: Pain levoFLOXacin [Levaquin] 750 mg PO DAILY #7 tab Metformin HCl 500 mg PO BID #60 tab Doxycycline Hyclate [Vibramycin] 100 mg PO BID #28 cap Diet: ADA Activity: Ad ismael Followup: Jackie Villarreal, [ACTIVE - CAN ADMIT] - 1-2 Weeks NONE,NONE [Primary Care Provider] -
[2023-12-31 09:33] VITALS: BP 151/97; TEMP 98.1
--- NOTE | 2023-12-31 21:51 | OP ---
Date of Procedure: 12/30/2023 Surgeon: BEL MELGAR Preoperative Diagnosis: Upper lip abscess. Postoperative Diagnoses: 1. Upper lip cellulitis. 2. Neoplasm of uncertain behavior, upper lip. Procedure: Incision and drainage of upper lip cellulitis and biopsy of upper lip neoplasm of uncertain behavior. Anesthesia: General endotracheal anesthesia was administered. I also infiltrated approximately 10 mL of 1% lidocaine with 1:100,000 epinephrine at the incision site. Estimated Blood Loss: None. Specimens: Upper lip specimen sent to Pathology for evaluation. Findings: Diffuse upper lip swelling with scabbed eschar, possibly ulcerative neoplasm involving the central upper lip. No purulent exudate drained from the site. Complications: None. Disposition: Stable. The patient tolerated the procedure well. Indication For Procedure: The patient is a 58-year-old male who was admitted for multiple medical problems, but upon examination had diffuse upper lip swelling after shaving. He was placed on IV antibiotics and I was consulted and I suspected an upper lip abscess. Thus, these were indications to bring the patient to the operative suite for the above-mentioned procedure. He understood, all questions were answered. Risks versus benefits and complications were explained in detail and a consent form was signed which was placed in the chart. Description Of Procedure: The patient was transferred from the preoperative holding area to the operative suite by Department of Anesthesia, placed on the operating table supine and sedated in a normal fashion. I infiltrated approximately 10 mL of 1% lidocaine with 1:100,000 epinephrine at the upper lip incision site. The patient was then sterilely prepped and draped. An elliptical incision was made around the ulcerative scab noted in the central upper lip with a #15 blade scalpel. I then dissected down to the orbicularis oculi muscle and I visualized diffuse swelling, but no abscess pocket. I opened up the area with a long hemostat and I did not detect any purulence. The wound was irrigated. Skin specimen measuring 0.6 x 0.6 cm was handed off the field for pathology evaluation. Once the wound was irrigated, I applied bacitracin ointment and a bandage. The patient tolerated the procedure well. He will be discharged home on antibiotic analgesic medication and will follow up in 1-2 weeks or sooner if needed. ZOE/NICKOLAS Voice ID: [id number] Report ID: [id number]
== END 2023-12-31 10:22 | disposition home or self-care (01) | DRG 147 ==
LOC: ER 20:14 → ERHOLD 12-29 01:26 → 4TH 12-29 02:17
PROVIDERS: ADMIT Internal Medicine; ATTEND Internal Medicine
PROC: 0T9B70Z Drainage of Bladder with Drainage Device, Via Natural or Artificial Opening (ICD-10-PCS; principal; 2023-12-29)
DX: D37.01 Neoplasm of uncertain behavior of lip (principal); N17.9 Acute kidney failure, unspecified; T83.518A Infection and inflammatory reaction due to other urinary catheter, initial encounter; N39.0 Urinary tract infection, site not specified; Z59.00 Homelessness unspecified; K13.0 Diseases of lips; I12.9 Hypertensive chronic kidney disease with stage 1 through stage 4 chronic kidney disease, or unspecified chronic kidney disease; N18.9 Chronic kidney disease, unspecified; E11.22 Type 2 diabetes mellitus with diabetic chronic kidney disease; D63.1 Anemia in chronic kidney disease; R33.9 Retention of urine, unspecified; Z79.84 Long term (current) use of oral hypoglycemic drugs; Z79.899 Other long term (current) drug therapy; Z91.199 Patient's noncompliance with other medical treatment and regimen due to unspecified reason; Y84.8 Other medical procedures as the cause of abnormal reaction of the patient, or of later complication, without mention of misadventure at the time of the procedure
CPT/HCPCS: 36415; 51702; 71045; 80048; 80053; 80076; 81001; 82947; 83036; 83735; 83880; 84484; 85025; 85610; 87070; 87077; 87086; 87088; 87186; 87205; 88305; 93005; 96365; 96366; 96368; 99285; J0360; J1100; J1644; J2001; J2250; J2405; J2704; J3010; J7030; J7050

== ENCOUNTER 2024-01-02 16:53 | Emergency (ER) | payer SELFPAY ==
--- OUTSIDE RECORDS SUMMARY | 2024-01-02 17:00 | XMS REPORT | Continuity of Care Document ---
Author Name Unknown Address [address] [facility] [address] [place] [address] [facility] thconnect Address [address] [facility]. [address] [place] [address] Care Team Providers Care [employer] Installer Name Role Phone Erik Louie Jr. Primary Care Physician + [phone] Cosme Cardona DO Attending Clinician [phone] Solo CHONG, Lyubov Hilton Attending Clinician [phone] Rosalie Irizarry RN Attending Clinician [phone] Miguel CHONG, Ricky K.H. Attending Clinician + [phone] Umang Reynaga MD Attending Clinician [phone] Jerry Fields DO Attending Clinician [phone] Vimal Quiñones MD Attending Clinician [phone] Jeannette Dawn LVN Attending Clinician + [phone] PARVEZ MONROE Attending Clinician Unavailable Sergio Aponte MD Attending Clinician [phone] Bret Banda MD Attending Clinician [phone] Parvez Monroe MD Attending Clinician [phone] Solo CHONG, Lyubov Hilton Admitting Clinician [phone] Jerry Fields DO Admitting Clinician [phone] PARVEZ MONROE Admitting Clinician Unavailable Parvez Monroe MD Admitting Clinician Problems Condition Name Condition Details Condition Category Status Onset Date Resolution Date Last Treatment Date Treating Clinician Comments Source Elevated troponin I level Elevated troponin I level Disease Active 08-14 00:00: 00 [facility] Elevated brain natriureti c peptide (BNP) level Elevated brain natriureti c peptide (BNP) level Disease Active 08-14 00:00: 00 [facility] Essential hypertensi on Essential hypertensi on Disease Active 08-14 00:00: 00 [facility] ELIEZER (acute kidney injury) ELIEZER (acute kidney injury) Disease Active 08-14 00:00: 00 [facility] Type 2 diabetes mellitus with other specified complicati on Type 2 diabetes mellitus with other specified complicati on Disease Active 08-14 00:00: 00 [facility] Hypertensi on, unspecifie d type Hypertensi on, unspecifie d type Disease Active 08-13 00:00: 00 [facility] NSTEMI (non-ST elevated myocardial infarction ) NSTEMI (non-ST elevated myocardial infarction ) Disease Active 2022-04 00:00: 00 [facility] Allergies, Adverse Reactions, Alerts Allergy Name Allergy Type Status Severity Reaction(s) Onset Date Inactive Date Treating Clinician Comments Source NO KNOWN ALLERGIE S Drug Class Active [facility] Social History Social Habit Start Date Stop Date Quantity Comments Source [facility] function 2023-08-23 00:00:00 2023-08-23 00:00:00 [facility] Alcohol intake 2023-08-22 00:00:00 2023-08-22 00:00:00 Lifetime non-drinker (finding) [facility] Tobacco use and exposure 2023-04-21 00:00:00 2023-04-21 00:00:00 Smokeless tobacco non-user [facility] Sex Assigned At 1965 00:00:00 1965 00:00:00 [facility] Smoking Status Start Date Stop Date Source Never smoked tobacco [facility] Medications Ordered Medication Name Filled Medication Name Start Date Stop Date Current Medication? Ordering Clinician Indication Dosage Frequency Signature (SIG) Comments Components Source acarbose 25 mg tablet 08-23 00:00: 00 Yes [id number] 25mg Take 1 tablet by mouth in the morning and 1 tablet at noon and 1 tablet in the evening. Take with meals. [facility] metFORMIN 500 mg 24 hr tablet 08-23 00:00: 09-23 04:59 :00 No [id number] 500mg Take 1 tablet by mouth in the morning and 1 tablet in the evening. Take with meals. Do all this for 30 days. [facility] amLODIPine 10 mg tablet 08-23 00:00: 09-23 04:59 :00 No [id number] 10mg Take 1 tablet by mouth in the morning for 30 days. [facility] tamsulosin 0.4 mg 24 hr capsule 08-23 00:00: 09-23 04:59 :00 No [id number] .4mg Take 1 capsule by mouth in the morning for 30 days. [facility] levoFLOXaci n 500 mg tablet 08-23 00:00: 00 08-26 04:59 :00 No [id number] 500mg Take 1 tablet by mouth every 24 (twenty-fo ur) hours for 2 days. [facility] cefTRIAXone (ROCEPHIN) 1,000 mg in NaCl [...] Urine
D uration of therapy: Once (ED) [facility] D5W IV infusion 1,000 mL 08-22 15:00: 00 08-22 16:53 :22 No 1000mL at 50 mL/hr, IV Infusion, ONCE, 1 dose, On Wed08/23/23 at 1000, Routine [facility] amLODIPine (NORVASC) tablet 5 mg 08-22 14:00: 00 Yes 5mg 5 mg, Oral, DAILY, First dose on Wed08/23/23 at 0900, Until Discontinu ed, Routine [facility] D5W 0.45% NaCl (1/2NS) IV infusion 1,000 mL 08-22 02:29: 00 08-23 17:53 :57 No 1000mL at 75 mL/hr, 1,000 mL, IV Infusion, CONTINUOUS , Starting on Wed08/22/23 at 2130, Until Wed08/24/23 at 1253, Routine [facility] D5W IV infusion 1,000 mL 08-21 21:30: 00 08-22 02:27 :22 No 1000mL at 100 mL/hr, IV Infusion, CONTINUOUS , Starting on Wed08/22/23 at 1630, Until Wed08/22/23 at 2127, Routine [facility] Sliding Scale Insulin - Lispro (HumaLOG) 08-21 21:00: 00 Yes Subcutaneo us, Q4H, First dose on Wed08/22/23 at 1600, Until Discontinu ed, Routine [facility] glucagon (GLUCAGEN DIAGNOSTIC KIT) injection 1 mg 08-21 20:17: 12 Yes 1mg 1 mg, Intramuscu lar, PRN, Starting on Wed08/22/23 at 1517, Until Discontinu ed, HAO, Blood Glucose < or = 70 mg/dL and patient is NPO, unable to swallow or has mental changes. [facility] dextrose 50 % in water (D50W) injection 25 mL 08-21 20:17: 12 Yes 25mL 25 mL, Slow IV Push, PRN, Starting on Wed08/22/23 at 1517, Until Discontinu ed, HAO, Blood Glucose < or = 70 mg/dL and patient is NPO, unable to swallow or has mental status changes. [facility] D5W IV infusion 1,000 mL 08-21 17:45: 00 08-21 20:16 :11 No 1000mL at 100 mL/hr, IV Infusion, CONTINUOUS , Starting on Wed08/22/23 at 1245, Until Wed08/22/23 at 1516, Routine [facility] tamsulosin (FLOMAX) capsule 0.4 mg 08-21 14:00: 00 Yes .4mg 0.4 mg, Oral, DAILY, First dose on Wed08/22/23 at 0900, Until Discontinu ed, Routine [facility] docusate (COLACE) capsule 100 mg 08-21 13:00: 00 Yes 100mg 100 mg, Oral, BID, First dose on Wed08/22/23 at 0800, Until Discontinu ed, Routine [facility] heparin (porcine) injection 5,000 Units 08-21 13:00: 00 Yes 5000U 5,000 Units, Subcutaneo us, Q12H, First dose on Wed08/22/23 at 0800, Until Discontinu ed, Routine [facility] D5W 0.45% NaCl (1/2NS) IV infusion 1,000 mL 08-21 06:15: 00 08-21 16:44 :38 No 1000mL at 100 mL/hr, 1,000 mL, IV Infusion, CONTINUOUS , Starting on Wed08/22/23 at 0115, Until Wed08/22/23 at 1144, Routine [facility] D5W 0.45% NaCl (1/2NS) Bolus infusion 1,000 mL 08-21 06:00: 00 08-21 06:21 :00 No 1000mL at 999 mL/hr, 1,000 mL, IV Infusion, ONCE, 1 dose, On Wed08/22/23 at 0100, Routine [facility] NaCl 0.9% (NS) bolus infusion 1,000 mL 08-21 04:15: 00 08-21 05:05 :00 No 1000mL at 999 mL/hr, 1,000 mL, IV Infusion, ONCE, 1 dose, On 08/21/23 at 2315, STAT [facility] bisacodyL (DULCOLAX) tablet 10 mg 08-21 04:02: 51 Yes 10mg 10 mg, Oral, QDAILYPRN, Starting on 08/21/23 at 2302, Until Discontinu ed, Routine, Constipati on [facility] ondansetron (ZOFRAN (PF)) injection 4 mg 08-21 04:02: 17 Yes 4mg 4 mg, Slow IV Push, Q6HPRN, Starting on 08/21/23 at 2302, Until Discontinu ed, Routine, Nausea and Vomiting (N/V) [facility] FENTanyl PF (SUBLIMAZE (PF)) injection 12.5 mcg 08-21 04:02: 09 08-22 04:01 :09 No 12.5ug 12.5 mcg, Slow IV Push, Q6HPRN, Starting on 08/21/23 at 2302, Until 08/22/23 at 2301, Routine, Pain (scale 7-10), Pain (scale 4-6) [facility] acetaminoph en (TYLENOL) tablet 650 mg 08-21 04:01: 56 Yes 650mg 650 mg, Oral, Q6HPRN, Starting on 08/21/23 at 2301, Until Discontinu ed, Routine, Pain (scale 1-3) [facility] magnesium citrate solution 296 mL 08-21 01:45: 00 08-21 01:25 :00 No 296mL 296 mL, Oral, ONCE, 1 dose, On 08/21/23 at 2045, Routine [facility] amLODIPine 5 mg tablet 08-16 00:00: 00 08-23 00:00 :00 No [id number] 5mg Take 1 tablet by mouth in the morning for 30 days. [facility] lactulose (CEPHULAC) solution 45 mL 08-15 15:45: 00 08-15 15:21 :00 No 45mL 45 mL, Oral, ONCE, 1 dose, On Wed08/16/23 at 1045, Routine [facility] amLODIPine (NORVASC) tablet 5 mg 08-15 14:00: 00 Yes 5mg 5 mg, Oral, DAILY, First dose on Wed08/16/23 at 0900, Until Discontinu ed, Routine [facility] sennosides (SENOKOT) tablet 8.6 mg 08-15 14:00: 00 Yes 8.6mg 8.6 mg, Oral, DAILY, First dose on Wed08/16/23 at 0900, Until Discontinu ed, Routine [facility] losartan (COZAAR) tablet 25 mg 08-15 14:00: 00 Yes 25mg 25 mg, Oral, DAILY, First dose (after last modificati on) on Wed08/16/23 at 0900, Until Discontinu ed, Routine [facility] docusate (COLACE) capsule 100 mg 08-15 13:00: 00 Yes 100mg 100 mg, Oral, BID, First dose on Wed08/16/23 at 0800, Until Discontinu ed, Routine [facility] lactulose (CEPHULAC) solution 30 mL 08-15 10:00: 00 08-15 09:33 :00 No 30mL 30 mL, Oral, ONCE, 1 dose, On Wed08/16/23 at 0500, Routine [facility] metFORMIN 500 mg 24 hr tablet 08-15 00:00: 00 08-23 00:00 :00 No [id number] 500mg Take 1 tablet by mouth in the morning and 1 tablet in the evening. Take with meals. Do all this for 30 days. [facility] acarbose 25 mg tablet 08-15 00:00: 00 08-23 00:00 :00 No [id number] 25mg Take 1 tablet by mouth in the morning and 1 tablet at noon and 1 tablet in the evening. Take with meals. Do all this for 30 days. [facility] pioglitazon e 15 mg tablet 08-15 00:00: 00 08-23 00:00 :00 No [id number] 15mg Take 1 tablet by mouth in the morning for 30 days. [facility] tamsulosin 0.4 mg 24 hr capsule 08-15 00:00: 00 08-23 00:00 :00 No [id number] .4mg Take 1 capsule by mouth in the morning for 30 days. [facility] losartan 25 mg tablet 08-15 00:00: 00 08-23 00:00 :00 No [id number] 25mg Take 1 tablet by mouth in the morning for 30 days. [facility] glipiZIDE (GLUCOTROL) tablet 5 mg 08-14 21:30: 00 Yes 5mg 5 mg, Oral, BIDAC, First dose on 08/15/23 at 1630, Until Discontinu ed, Routine [facility] KCL (KLOR-CON M20) tablet 40 mEq 08-14 21:30: 00 08-14 21:21 :00 No 40meq 40 mEq, Oral, ONCE, 1 dose, On 08/15/23 at 1630, Routine [facility] pioglitazon e (ACTOS) tablet 7.5 mg 08-14 17:00: 00 08-15 12:47 :51 No 7.5mg 7.5 mg, Oral, DAILY, First dose on 08/15/23 at 1200, Until Discontinu ed, Routine [facility] tamsulosin (FLOMAX) capsule 0.4 mg 08-14 15:49: 00 Yes .4mg 0.4 mg, Oral, DAILY, First dose on 08/15/23 at 1100, Until Discontinu ed, Routine [facility] amLODIPine (NORVASC) tablet 10 mg 08-14 14:00: 00 08-14 15:51 :30 No 10mg 10 mg, Oral, DAILY, First dose on 08/15/23 at 0900, Until Discontinu ed, Routine [facility] heparin (porcine) injection 5,000 Units 08-14 03:00: 00 08-14 06:07 :44 No 5000U 5,000 Units, Subcutaneo us, Q8H, First dose on 08/14/23 at 2200, Until Discontinu ed, Routine [facility] Sliding Scale Insulin - Lispro (HumaLOG) 08-14 02:00: 00 08-14 18:06 :14 No Subcutaneo us, TID MEALS+HS, First dose on 08/14/23 at 2100, Until Discontinu ed, Routine [facility] glucagon (GLUCAGEN DIAGNOSTIC KIT) injection 1 mg 08-14 00:36: 37 Yes 1mg 1 mg, Intramuscu lar, PRN, Starting on 08/14/23 at 1936, Until Discontinu ed, HAO, Blood Glucose < or = 70 mg/dL and patient is NPO, unable to swallow or has mental changes. [facility] dextrose 50 % in water (D50W) injection 25 mL 08-14 00:36: 37 Yes 25mL 25 mL, Slow IV Push, PRN, Starting on 08/14/23 at 1936, Until Discontinu ed, HAO, Blood Glucose < or = 70 mg/dL and patient is NPO, unable to swallow or has mental status changes. [facility] acetaminoph en (TYLENOL) tablet 650 mg 08-14 00:36: 24 Yes 650mg 650 mg, Oral, Q6HPRN, Starting on 08/14/23 at 1936, Until Discontinu ed, Routine, Pain (scale 1-3) [facility] aspirin chewable tablet 324 mg 08-13 23:15: 00 08-13 22:56 :00 No [id number] 324mg 324 mg, Oral, ONCE, 1 dose, On 08/14/23 at 1815, HAO [facility] lidocaine 2% viscous (LIDOCAINE VISCOUS) 2 % solution 15 mL 08-13 23:00: 00 08-13 22:10 :00 No [id number] 15mL 15 mL, Oral, ONCE, 1 dose, On 08/14/23 at 1800, Routine [facility] KCL (KLOR-CON M20) tablet 20 mEq 08-13 22:30: 00 08-13 22:59 :00 No [id number] 20meq 20 mEq, Oral, ONCE, 1 dose, On 08/14/23 at 1730, [facility] metoprolol tartrate (LOPRESSOR) tablet 50 mg 08-13 22:00: 00 08-13 22:58 :00 No [id number] 50mg 50 mg, Oral, ONCE, 1 dose, On 08/14/23 at 1700, [facility] iopamidol (ISOVUE 370-500 mL) injection 80 mL 08-13 21:30: 00 08-13 21:45 :00 No [id number] 80mL 80 mL, Intravenou s, ONCE, 1 dose, On 08/14/23 at 1645, Routine [facility] acetaminoph en (TYLENOL) tablet 650 mg 08-13 21:15: 00 08-13 22:57 :00 No [id number] 650mg 650 mg, Oral, ONCE, 1 dose, On 08/14/23 at 1615, [facility] amLODIPine (NORVASC) tablet 5 mg 08-13 21:15: 00 08-13 22:58 :00 No [id number] 5mg 5 mg, Oral, ONCE, 1 dose, On 08/14/23 at 1615, [facility] NaCl 0.9% (NS) bolus infusion 1,000 mL 08-13 21:15: 00 08-13 21:50 :00 No [id number] 1000mL at 999 mL/hr, 1,000 mL, IV Infusion, ONCE, 1 dose, On 08/14/23 at 1615, [facility] insulin NPH (HUMULIN N) injection 9 Units 2022-04 14:00: 00 Yes 9U 9 Units, Subcutaneo us, QAM WITH BREAKFAST, First dose (after last modificati on) on Wed04/24/23 at 0800, Until Discontinu ed, Routine [facility] losartan 25 mg tablet 2022-04 00:00: 00 08-15 00:00 :00 No [id number] 25mg Take 1 tablet by mouth in the morning. [facility] tamsulosin (FLOMAX) 0.4 mg 24 hr capsule 2022-04 00:00: 00 08-15 00:00 :00 No [id number] .4mg Take 1 capsule by mouth in the morning. [facility] metFORMIN 500 mg tablet 2022-04 00:00: 00 05-23 05:59 :00 No [id number] Take 1 tablet by mouth 2 (two) times daily with meals for 7 days, THEN 2 tablets 2 (two) times daily with meals for 21 days. [facility] insulin lispro (human) (HumaLOG U-100) injection 3 Units 2022-04 23:00: 00 Yes 3U 3 Units, Subcutaneo us, TID MEALS, First dose (after last modificati on) on Wed04/23/23 at 1700, Until Discontinu ed, Routine [facility] insulin NPH (HUMULIN N) injection 5 Units 2022-04 23:00: 00 Yes 5U 5 Units, Subcutaneo us, QPM, First dose (after last modificati on) on Wed04/23/23 at 1700, Until Discontinu ed, Routine [facility] losartan (COZAAR) tablet 25 mg 2022-04 15:00: 00 Yes 25mg 25 mg, Oral, DAILY, First dose on Wed04/23/23 at 0900, Until Discontinu ed, Routine [facility] Potassium Bicarb-Citr ic Acid (EFFER-K) effervescen t tablet 40 mEq 2022-04 13:00: 00 04-23 13:33 :00 No 40meq 40 mEq, Oral, ONCE, 1 dose, On Wed04/23/23 at 0700, Routine [facility] ramelteon (ROZEREM) tablet 8 mg 2022-04 10:45: 00 04-23 10:51 :00 No 8mg 8 mg, Oral, ONCE NOW, 1 dose, On Wed04/23/23 at 0500, Routine [facility] Blood-Gluco se Meter (ACCU-CHEK GUIDE GLUCOSE METER) [facility] 2022-04 00:00: 00 Yes [id number] Use as directed [facility] lancets 33 gauge [facility] 2022-04 00:00: 00 Yes [id number] Use as directed [facility] blood sugar diagnostic (ACCU-CHEK GUIDE TEST STRIPS) strip 2022-04 00:00: 00 Yes [id number] Use as directed [facility] pioglitazon e 15 mg tablet 2022-04 00:00: 00 08-15 00:00 :00 No [id number] 7.5mg Take 0.5 tablets by mouth in the morning. [facility] acarbose 25 mg tablet 2022-04 00:00: 00 08-15 00:00 :00 No [id number] 25mg Take 1 tablet by mouth in the morning and 1 tablet at noon and 1 tablet in the evening. Take with meals. [facility] atorvastati n 80 mg tablet 2022-04 00:00: 00 05-24 05:59 :00 No [id number] 80mg Take 1 tablet by mouth at bedtime for 30 days. [facility] glipiZIDE 5 mg tablet 2022-04 00:00: 00 05-24 05:59 :00 No [id number] 5mg Take 1 tablet by mouth 2 (two) times daily before breakfast and dinner for 30 days. [facility] enoxaparin (LOVENOX) injection 40 mg 2022-04 15:00: 00 Yes 40mg 40 mg, Subcutaneo us, DAILY, First dose on Wed04/22/23 at 0900, Until Discontinu ed, Routine [facility] insulin NPH (HUMULIN N) injection 8 Units 2022-04 14:00: 00 04-23 19:10 :37 No 8U 8 Units, Subcutaneo us, QAM WITH BREAKFAST, First dose on Wed04/22/23 at 0800, Until Discontinu ed, Routine [facility] insulin NPH (HUMULIN N) injection 4 Units 2022-04 23:00: 00 04-23 19:10 :37 No 4U 4 Units, Subcutaneo us, QPM, First dose on Wed04/21/23 at 1700, Until Discontinu ed, [facility] lispro (human) (HumaLOG U-100) injection 2 Units 2022-04 23:00: 00 04-23 19:10 :37 No 2U 2 Units, Subcutaneo us, TID MEALS, First dose (after last modificati on) on Wed04/21/23 at 1700, Until Discontinu ed, Routine [facility] NaCl 0.9% (NS) IV infusion 250 mL 2022-04 21:15: 00 04-22 20:03 :10 No [id number] 250mL at 20 mL/hr, IV Infusion, CONTINUOUS , Starting on Wed04/21/23 at 1515, Until Wed04/22/23 at 1403, Routine
To keep vein open
[facility] perflutren lipid microsphere s (DEFINITY) injection 2 mL 2022-04 21:00: 00 04-21 20:15 :00 No [id number] 2mL 2 mL, IV Push, ONCE, 1 dose, On Wed04/21/23 at 1500, Routine [facility] atropine injection 1 mg 2022-04 21:00: 00 04-21 20:44 :00 No [id number] 1mg 1 mg, Slow IV Push, ONCE, 1 dose, On Wed04/21/23 at 1500, Routine [facility] DOBUTamine (DOBUTREX) 250 mg/250 mL RTU infusion 2022-04 20:13: 51 04-22 20:03 :10 No [id number] 5ug/kg/ min 5 mcg/kg/min ?59 kg (17.7 [...] the Dobutamine infusion. (see Adjunctive Therapy)<b r> [facility] perflutren protein-A microsphr (OPTISON) injection 3 mL 2022-04 17:15: 00 04-21 15:22 :00 No [id number] 3mL 3 mL, IV Push, ONCE, 1 dose, On Wed04/21/23 at 1115, Routine [facility] potassium chloride in water 10 mEq/100 mL RTU 10 mEq 2022-04 17:00: 00 04-21 20:59 :00 No 10meq 10 mEq, IV Piggyback, Q1H, 4 doses, First dose (after last reorder) on Wed04/21/23 at 1100, Last dose on Wed04/21/23 at 1400, Administer over 60 Minutes, 100 mL [facility] tamsulosin (FLOMAX) capsule 0.4 mg 2022-04 15:00: 00 Yes .4mg 0.4 mg, Oral, DAILY, First dose on Wed04/21/23 at 0900, Until Discontinu ed, Routine [facility] aspirin chewable tablet 81 mg 2022-04 15:00: 00 04-22 16:28 :38 No 81mg 81 mg, Oral, DAILY, First dose on Wed04/21/23 at 0900, Until Discontinu ed, Routine [facility] aspirin tablet 325 mg 2022-04 15:00: 00 04-21 06:21 :21 No 325mg 325 mg, Oral, DAILY, First dose on Wed04/21/23 at 0900, Until Discontinu ed, Routine [facility] Sliding Scale Insulin - Lispro (HumaLOG) 2022-04 14:00: 00 Yes Subcutaneo us, TID MEALS+HS, First dose on Wed04/21/23 at 0800, Until Discontinu ed, Routine [facility] magnesium sulfate in water 2 gram/50 mL (4 %) infusion 2 g 2022-04 12:30: 00 04-21 15:11 :00 No 2g 2 g, IV Piggyback, Administer over 60 Minutes, ONCE, 1 dose, On Wed04/21/23 at 0630, Routine [facility] Potassium Bicarb-Citr ic Acid (EFFER-K) effervescen t tablet 40 mEq 2022-04 12:30: 00 04-21 12:36 :00 No 40meq 40 mEq, Oral, ONCE, 1 dose, On Wed04/21/23 at 0630, Routine [facility] insulin glargine (LANTUS U-100) injection 9 Units 2022-04 07:45: 00 04-21 21:08 :08 No .15U/kg /d 9 Units (rounded from 8.745 Units = 0.15 Units/kg/d ay ?58.3 kg), Subcutaneo us, QHS, First dose (after last modificati on) on Wed04/21/23 at 0145, Until Discontinu ed, Routine [facility] atorvastati n (LIPITOR) tablet 80 mg 2022-04 06:30: 00 Yes 80mg 80 mg, Oral, QHS, First dose on Wed04/21/23 at 0030, Until Discontinu ed, Routine [facility] dextrose 50 % in water (D50W) injection 25 mL 2022-04 06:24: 50 Yes 25mL 25 mL, Slow IV Push, PRN, Starting on Wed04/21/23 at 0024, Until Discontinu ed, HAO, Blood Glucose < or = 70 mg/dL and patient is NPO, unable to swallow or has mental status changes. [facility] acetaminoph en (TYLENOL) tablet 650 mg 2022-04 05:53: 21 Yes 650mg 650 mg, Oral, Q6HPRN, Starting on Wed04/20/23 at 2353, Until Discontinu ed, Routine, Pain (scale 1-3) [facility] NaCl 0.9% (NS) bolus infusion 1,000 mL 2022-04 04:00: 00 04-21 03:45 :00 No 1000mL at 999 mL/hr, 1,000 mL, IV Infusion, ONCE, 1 dose, On Wed04/20/23 at 2200, STAT [facility] clopidogreL (PLAVIX) 300 mg tablet 300 mg 2022-04 03:30: 00 04-21 02:50 :00 No 300mg 300 mg, Oral, ONCE, 1 dose, On Wed04/20/23 at 2130, HAO [facility] HEPARIN SODIUM (PORCINE) 1,000 UNIT/ML BOLUS ACS ORDER SET 2022-04 02:45: 00 04-21 02:53 :00 No 60U/kg 3,540 Units (60 Units/kg ?59 kg), IV Push, ONCE, 1 dose, On Wed04/20/23 at 2044, HAO [facility] heparin 25,000 Units/250 mL (Premixed Bag) [...] INITIAL BOLUS OR INITIAL INFUSION RATE.
[facility] Vital Signs Vital Name Observation Time Observation Value Comments S ource Systolic blood pressure 2023-08-24 13:02:00 150 mm[Hg] [facility] Diastolic blood pressure 2023-08-24 13:02:00 88 mm[Hg] [facility] Heart rate 2023-08-24 13:02:00 79 /min [facility] Body temperature 2023-08-24 13:02:00 36.44 Deya [facility] Respiratory rate 2023-08-24 13:02:00 14 /min [facility] Oxygen saturation in Arterial blood by Pulse oximetry 2023-08-24 13:02:00 98 /min [facility] Body weight 2023-08-24 08:43:00 58.469 kg [facility] BMI 2023-08-24 08:43:00 22.83 kg/m2 [facility] Body height 2023-08-22 04:52:00 160 cm [facility] Systolic blood pressure 2023-08-16 16:53:00 154 mm[Hg] [facility] Diastolic blood pressure 2023-08-16 16:53:00 94 mm[Hg] [facility] Heart rate 2023-08-16 16:53:00 82 /min [facility] Body temperature 2023-08-16 16:53:00 36.61 Deya [facility] Respiratory rate 2023-08-16 16:53:00 16 /min [facility] Oxygen saturation in Arterial blood by Pulse oximetry 2023-08-16 16:53:00 99 /min [facility] Body weight 2023-08-16 09:56:00 56.473 kg [facility] BMI 2023-08-16 09:56:00 22.05 kg/m2 [facility] Body height 2023-08-15 04:07:00 160 cm [facility] Systolic blood pressure 2023-04-23 18:11:00 141 mm[Hg] [facility] Diastolic blood pressure 2023-04-23 18:11:00 80 mm[Hg] [facility] Heart rate 2023-04-23 18:11:00 101 /min [facility] Body temperature 2023-04-23 18:11:00 35.89 Deya [facility] Respiratory rate 2023-04-23 18:11:00 18 /min [facility] Oxygen saturation in Arterial blood by Pulse oximetry 2023-04-23 18:11:00 98 /min [facility] Body weight 2023-04-22 09:57:00 57.561 kg [facility] BMI 2023-04-22 09:57:00 22.48 kg/m2 [facility] Body height 2023-04-21 20:00:00 160 cm [facility] Procedures Procedure Date / Time Performed Performing Clinician Source POCT GLUCOSE (AUTOMATED) 2023-08-24 16:13:00 Jami Banda [facility] POCT GLUCOSE (AUTOMATED) 2023-08-24 12:34:00 [facility] Banda [facility] [facility] BASIC METABOLIC PANEL (NA, K, CL, CO2, GLUCOSE, BUN, CREATININE, CA) 2023-08-24 08:42:00 Jerry Fields [facility] CBC WITH DIFF 2023-08-24 08:42:00 Jerry Fields [facility] POCT GLUCOSE (AUTOMATED) 2023-08-24 05:46:00 Jami Banda [facility] BASIC METABOLIC PANEL (NA, K, CL, CO2, GLUCOSE, BUN, CREATININE, CA) 2023-08-24 01:37:00 Jerry Fields [facility] POCT GLUCOSE (AUTOMATED) 2023-08-24 01:27:00 Jami Banda [facility] POCT GLUCOSE (AUTOMATED) 2023-08-23 21:29:00 Jami Banda [facility] BASIC METABOLIC PANEL (NA, K, CL, CO2, GLUCOSE, BUN, CREATININE, CA) 2023-08-23 17:41:00 Jerry Fields [facility] POCT GLUCOSE (AUTOMATED) 2023-08-23 16:42:00 Jami Banda [facility] POCT GLUCOSE (AUTOMATED) 2023-08-23 12:36:00 Jami Banda [facility] POCT GLUCOSE (AUTOMATED) 2023-08-23 09:09:00 Jami Banda [facility] MAGNESIUM 2023-08-23 08:23:00 Jerry Fields [facility] BASIC METABOLIC PANEL (NA, K, CL, CO2, GLUCOSE, BUN, CREATININE, CA) 2023-08-23 08:23:00 Jerry Fields [facility] CBC WITH DIFF 2023-08-23 08:23:00 Jerry Fields [facility] POCT GLUCOSE (AUTOMATED) 2023-08-23 04:52:00 Jami Banda [facility] POCT GLUCOSE (AUTOMATED) 2023-08-23 00:42:00 Jami Banda [facility] BASIC METABOLIC PANEL (NA, K, CL, CO2, GLUCOSE, BUN, CREATININE, CA) 2023-08-23 00:38:00 Jerry Fields [facility] POCT GLUCOSE (AUTOMATED) 2023-08-22 21:18:00 Jami Banda [facility] URIC ACID 2023-08-22 19:21:00 Alyssa Cain [facility] PROTEIN CREAT RATIO URINE RANDOM 2023-08-22 19:21:00 Alyssa Cain [facility] CORTISOL AM 2023-08-22 19:20:00 Alyssa Cain [facility] BASIC METABOLIC PANEL (NA, K, CL, CO2, GLUCOSE, BUN, CREATININE, CA) 2023-08-22 13:21:00 Lyubov Banda [facility] LACTIC ACID WHOLE BLOOD 2023-08-22 09:16:00 Loreta Banda mmad [facility] MAGNESIUM 2023-08-22 08:30:00 Lyubov Banda [facility] TROPONIN I 2023-08-22 08:30:00 Lyubov Banda [facility] CBC WITH DIFF 2023-08-22 08:30:00 [facility]-BNP 2023-08-22 08:30:00 Lyubov Banda [facility] PHOSPHORUS 2023-08-22 04:01:00 Lyubov Banda [facility] BASIC METABOLIC PANEL (NA, K, CL, CO2, GLUCOSE, BUN, CREATININE, CA) 2023-08-22 04:01:00 Cosme Cardona [facility] URINALYSIS 2023-08-22 01:52:00 Cosme Cardona [facility] CT ABDOMEN PELVIS WO CONTRAST 2023-08-22 01:26:17 Cosme Cardona [facility] CREATINE KINASE 2023-08-22 01:24:00 Lyubov Banda [facility] LIPASE 2023-08-22 01:24[facility]00 [facility]OLIC PAN[facility] ([id number]) 2023-08-22 01:24:00 Singer [facility] CBC WITH DIFF 2023-08-22 01:24:00 Singer [facility] POCT GLUCOSE (AUTOMATED) 2023-08-16 21:51:00 Yue Fields [facility] POCT GLUCOSE (AUTOMATED) 2023-08-16 16:54:00 Yue Fields [facility] POCT GLUCOSE (AUTOMATED) 2023-08-16 12:45:00 Yue Fields [facility] POCT GLUCOSE (AUTOMATED) 2023-08-16 02:06:00 Yue Fields [facility] POCT GLUCOSE (AUTOMATED) 2023-08-15 21:29:00 Yue Fields [facility] POCT GLUCOSE (AUTOMATED) 2023-08-15 16:39:00 Yue Fields [facility] POCT GLUCOSE (AUTOMATED) 2023-08-15 13:08:00 Yue Fields [facility] TROPONIN I 2023-08-15 10:41:00 Juventino [facility] BASIC METABOLIC PANEL (NA, K, CL, CO2, GLUCOSE, BUN, CREATININE, CA) 2023-08-15 10:41:00 Shanice [facility] CBC WITH DIFF 2023-08-15 10:41:00 Juventino [facility] PROSTATIC SPECIFIC ANTIGEN 2023-08-15 05:32[facility]15 05:32[facility] 2023-08-15 04:03:00 Yue Fields [facility] URINALYSIS 2023 22:15:00 Umang Reynaga [facility] XR CHEST 1 VW 2023 21:46:00 Umang Reynaga [facility] CT ABDOMEN PELVIS W CONTRAST 2023 21:34:55 [address] [facility] CT TRAUMA HEAD WO CONTRAST 2023 21:33:20 Rosmery [facility] HB ECG ROUTINE & RHYTHM STRIP 2023 21:10:12 Rosmery [facility] PHOSPHORUS 2023 20:47:00 Rosmery [facility] CREATINE KINASE 2023 20:47:00 [facility] LIPASE 2023 20:47:00 Rosmery [facility] MAGNESIUM 2023 20:47:00 Rosmery [facility] BETA HYDROXY-BUTYRATE 2023 20:47:00 Farida Reynaga [facility] TROPONIN I 2023 20:47:00 [facility] COMP. METABOLIC PANEL ([id number]) 2023 20:47:00 Rosmery [facility] CBC WITH DIFF 2023 20:47:00 Umang Reynaga [facility] GLYCOSYLATED HEMOGLOBIN (A1C) 2023 20:47:00 Jerry Fields [facility] N-TERMINAL PRO-BNP 2023 20:47:00 Michael Reynaga [facility] ACUTE CARE VENOUS BLOOD GAS 2023 20:46:00 Rosmery [facility] LACTIC ACID WHOLE BLOOD 2023 20:46:00 Kian Reynaga [facility] POCT GLUCOSE(AGE >30DAYS) 2023 20:26:00 Rosmery [facility] POCT GLUCOSE (AUTOMATED) 2023 20:23:00 Rosmery [facility] POCT GLUCOSE (AUTOMATED) 2023-04-23 18:09:00 Brien Banda [facility] POCT GLUCOSE (AUTOMATED) 2023-04-23 15:32:00 Brien Banda [facility] MAGNESIUM 2023-04-23 09:09:00 Loghin, Chet Univer [facility] BASIC METABOLIC PANEL (NA, K, CL, CO2, GLUCOSE, BUN, CREATININE, CA) 2023-04-23 09:09:00 Chet Echavarria [facility] POCT GLUCOSE (AUTOMATED) 2023-04-23 02:56:00 Brien Banda [facility] POCT GLUCOSE (AUTOMATED) 2023-04-23 00:32:00 Solo [facility] POCT GLUCOSE (AUTOMATED) 2023-04-22 22:43:00 Solo [facility] POCT GLUCOSE (AUTOMATED) 2023-04-22 20:36:00 Solo [facility] POCT GLUCOSE (AUTOMATED) 2023-04-22 17:44:00 Solo [facility] POCT GLUCOSE (AUTOMATED) 2023-04-22 13:41:00 Solo [facility] MAGNESIUM 2023-04-22 10:37:00 Daja Aaliyah [facility] BASIC METABOLIC PANEL (NA, K, CL, CO2, GLUCOSE, BUN, CREATININE, CA) 2023-04-22 10:37:00 Daja Aaliyah [facility] CBC WITH DIFF 2023-04-22 10:37:00 Daja Aaliyah [facility] POCT GLUCOSE (AUTOMATED) 2023-04-22 03:32:00 Solo [facility] POCT GLUCOSE (AUTOMATED) 2023-04-22 01:34:00 Solo [facility] COMPLETE ECHOCARDIOGRAM DOBUTAMINE STRESS TEST W CONTRAST 2023-04-21 21:15:00 Jeanine Montana [facility] POCT GLUCOSE (AUTOMATED) 2023-04-21 17:36:00 Solo [facility] ACTIVATED PARTIAL THRMPLAS JERMAINE 2023-04-21 16:47:00 Sergio Aponte [facility] TRANSTHORACIC ECHO (TTE) COMPLETE W/ CONTRAST 2023-04-21 15:26:00 Kylie Fuchs [facility] TROPONIN I 2023-04-21 12:39:00 Víctor Fuchs Noel [facility] POCT GLUCOSE (AUTOMATED) 2023-04-21 09:39:00 Brien Banda [facility] MAGNESIUM 2023-04-21 09:10:00 Víctor Fuchs Noel [facility] BASIC METABOLIC PANEL (NA, K, CL, CO2, GLUCOSE, BUN, CREATININE, CA) 2023-04-21 09:10:00 Kylie Fuchs Noel [facility] LIPID PANEL ([id number])(TOTAL CHOLESTEROL, TRIGLYCERIDES, HDL) 2023-04-21 09:10:00 Kylie Fuchs Noel [facility] CBC WITH DIFF 2023-04-21 09:10:00 Víctor Fuchs [facility] ACTIVATED PARTIAL THRMPLAS JERMAINE 2023-04-21 09:10:00 Sergio Aponte [facility] XR CHEST 1 VW 2023-04-21 06:53:47 Víctor Fuchs [place] TROPONIN I 2023-04-21 06:32:00 Víctor Fuchs [place]el [facility] IRON PANEL 2023-04-21 06:32:00 V[place]ctor [place]uchs [place] [facility] N-TERMINAL PRO-BNP 2023-04-21 06:32:00 Kylie Fuchs Noel [facility] CRITICAL CARE 2023-04-21 02:54:15 Sergio Aponte [facility] PROTHROMBIN TIME / INR 2023-04-21 02:44:00 Enrique Aponte [facility] ACTIVATED PARTIAL THRMPLAS JERMAINE 2023-04-21 02:44:00 Sergio Aponte [facility] URINALYSIS 2023-04-21 02:33:00 Sergio Aponte [facility] PROTEIN CREAT RATIO URINE RANDOM 2023-04-21 02:33:00 Tavia Fuchsmad Noel [facility] URINE DRUG (IMMUNOASSAY) - COMPREHENSIVE DRUG SCREEN W/O REFLEX 2023-04-21 02:33:00 Sergio Aponte [facility] PHOSPHORUS 2023-04-21 01:55:00 Víctor Fuchs Noel [facility] FERRITIN SERUM 2023-04-21 01:55:00 Víctor Fuchs Noel [facility] TROPONIN I 2023-04-21 01:55:00 [facility] THYROID STIMULATING HORMONE 2023-04-21 01:55:00 Kylie Fuchs Noel [facility] COMP. METABOLIC PANEL ([id number]) 2023-04-21 01:55:00 Sergio Aponte [facility] ETHANOL 2023-04-21 01:55:00 [facility] CBC WITH DIFF 2023-04-21 01:55:00 Sergio Aponte [facility] GLYCOSYLATED HEMOGLOBIN (A1C) 2023-04-21 01:55:00 Kylie Fuchs [facility] POCT GLUCOSE (AUTOMATED) 2023-04-21 01:54:00 Yue Aponte [facility] EKG-12 LEAD 2023-04-21 01:51[facility] Start Date/Time End Date/Time Encounter Type Admission Type Attending Clinicians Care Facility Care Department Encounter ID Source 2023-08-21 19:47:00 2023-08-24 16:32:00 Hospital Encounter Cosme Cardona [facility] 1..840.114 350.1.13.10 4.2.7.2.686 [id number] [facility] 2023-08-20 00:00:00 2023-08-20 00:00:00 Patient Outreach Rosalie Irizarry [id number] 350.1.13.10 4.2.7.2.686 [id number] [facility] 2023-08-17 00:00:00 2023-08-17 00:00:00 Telephone Ricky Rivera [facility] 1.2840.114 350.1.13.10 4.2.7.2.686 [id number] [facility] 2023 14:42:00 2023-08-16 18:40:00 Hospital Encounter Umang Reynaga David [place], Jelani [facility] [id number] 350.1.13.10 4.2.7.2.686 [id number] [facility] 2023-04-27 00:00:00 2023-04-27 00:00:00 Transition of Care Jeannette Dawn JANIS BAEZ 1.2840.114 350.1.13.10 4.2.7.2.686 [id number] [facility] 2023-04-20 19:48:00 2023-04-23 19:54:00 Inpatient X PARVEZ [facility]E [facility] [id number] [facility] 2023-04-20 19:48:00 2023-04-23 19:54:00 Hospital Encounter Sergio Aponte Rizwan Dacso, Matthew M [facility] [id number] 350.1.13.10 4.2.7.2.686 [id number] [facility] Results Test Description Test Time Test Comments Results Result Co mments Source [facility]-08-24 12:35:27* Test Item Value Reference Range Interpretation Comme nts POCT GLU (test code = 5245623708) 204 mg/dL 70-110 H Lab Interpretation (test cod e = 97524-5) [facility] (NA, K, CL, CO2, GLUCOSE, BUN, CREATININE, CA)2023-08-24 09:45:39* Test Item Value Reference Range Interpretation Comme nts NA (test code = 9275459536) 133 mmol/L 135-145 L K (test code = 6010573039) 3.7 mmol/L 3.5-5.0 CL (test code = 9709154465) 98 mmol/L 98-108 CO2 TOTAL (test code = 0351750702) 27 mmol/L 23-31 AGAP (test code = 8531998667) 8 2-16 BUN (test code = 2178067016) 13 mg/dL 7-23 GLUCOSE (test code = 3406608948) 188 mg/dL 70-110 H CREATININE (test code = 2160-0) 0.63 mg/dL 0.60-1.25 CALCIUM (test code = 2280047266) 9.4 mg/dL 8.6-10.6 eGFR (test code = 03481-8) 111.6 mL/min/1.73m2 CKD-EPI eGFR (2020). Assuming creatinine has been stable day-to-day for at least three months, the eGFR indicates Category G1 (>= 90 mL/min/1.73 m2) Lab Interpretation (test code = 25765-4) Abnormal [facility] with [id number] 09:21:26* Test Item Value Reference Range Interpretation [...] g/dL 31.2-35.0 H RDW-SD (test code = 74543-6) 36.9 fL 38.5-51.6 L RDW-CV (test code = 788-0) 11.6 % 12.1-15.4 L PLT (test code = 777-3) 407 150-328 H MPV (test code = 52260-2) 9.5 fL 9.8-13.0 L NRBC/100 WBC (test code = 7516762859) 0.0 0.0-10.0 NRBC x10^3 (test code = 7787724880) See_Comment [Automated messa ge] The system which generated this result transmitted reference range: 10*3/?L. The reference range was not used to interpret this result as normal/abnormal. GRAN MAT (NEUT) % (test code = 770-8) 63.1 % IMM GRAN % (test code = 1206926879) 0.30 % LYMPH % (test code = 736-9) 21.1 % MONO % (test code = 5905-5) 8.3 % EOS % (test code = 713-8) 6.5 % BASO % (test code = 706-2) 0.7 % GRAN MAT x10^3(ANC) (test code = 3327083529) 3.71 10*3/uL 1.99-6.95 IMM GRAN x10^3 (test code = 1367349406) 0.00-0.06 LYMPH x10^3 (test code = 731-0) 1.24 10*3/uL 1.09-3.23 MONO x10^3 (test code = 742-7) 0.49 10*3/uL 0.36-1.02 EOS x10^3 (test code = 711-2) 0.38 10*3/uL 0.06-0.53 BASO x10^3 (test code = 704-7) 0.04 10*3/uL 0.01-0.09 Lab Interpretation (test code = 03394-5) [facility]normal [facility])2023-08-24 05:47:46* Test Item Value Reference Range Interpretation Comme nts POCT GLU (test code = 7541312596) 126 mg/dL 70-110 H Lab Interpretation (test cod e = 52530-0) Abnormal [facility] Metabolic Panel (NA, K, CL, CO2, GLUCOSE, BUN, CREATININE, CA)2023-08-24 02:27:27* Test Item Value Reference Range Interpretation Comme nts NA (test code = 7758604625) 129 mmol/L 135-145 L K (test code = 9981037444) 3.9 mmol/L 3.5-5.0 CL (test code = 0100588994) 96 mmol/L 98-108 L CO2 TOTAL (test code = 8244410061) 29 mmol/L 23-31 AGAP (test code = 4823306274) 4 2-16 BUN (test code = 0141401361) 14 mg/dL 7-23 GLUCOSE (test code = 6122100297) 185 mg/dL 70-110 H CREATININE (test code = 2160-0) 0.56 mg/dL 0.60-1.25 L CALCIUM (test code = 0438753829) 9.2 mg/dL 8.6-10.6 eGFR (test code = 54681-5) 115.7 mL/min/1.73m2 CKD-EPI eGFR (2020). Assuming creatinine has been stable day-to-day for at least three months, the eGFR indicates Category G1 (>= 90 mL/min/1.73 m2) Lab Interpretation (test code = 61745-6) Abnormal [facility] GLUCOSE (AUTOMATED)2023-08-24 01:28:28* Test Item Value Reference Range Interpretation Comme nts POCT GLU (test code = 3509843350) 210 mg/dL 70-110 H Lab Interpretation (test cod e = 77414-5) Abnormal [facility] GLUCOSE (AUTOMATED)2023-08-23 21:30:04* Test Item Value Reference Range Interpretation Comme nts POCT GLU (test code = 7020738768) 149 mg/dL 70-110 H Lab Interpretation (test cod e = 88717-4) Abnormal [facility] GLUCOSE (AUTOMATED)2023-08-23 16:45:20* Test Item Value Reference Range Interpretation Comme nts POCT GLU (test code = 6332544618) 147 mg/dL 70-110 H Lab Interpretation (test cod e = 95899-7) Abnormal [facility] GLUCOSE (AUTOMATED)2023-08-23 12:36:56* Test Item Value Reference Range Interpretation Comme nts POCT GLU (test code = 4520928054) 131 mg/dL 70-110 H Lab Interpretation (test cod e = 58305-1) Abnormal [facility] GLUCOSE (AUTOMATED)2023-08-23 09:17:23* Test Item Value Reference Range Interpretation Comme nts POCT GLU (test code = 3007928018) 154 mg/dL 70-110 H Lab Interpretation (test cod e = 79442-8) Abnormal [facility] GLUCOSE (AUTOMATED)2023-08-23 05:03:01* Test Item Value Reference Range Interpretation Comme nts POCT GLU (test code = 9447550483) 183 mg/dL 70-110 H Lab Interpretation (test cod e = 95207-0) Abnormal [facility] Metabolic Panel (NA, K, CL, CO2, GLUCOSE, BUN, CREATININE, CA)2023-08-23 01:49:58* Test Item Value Reference Range Interpretation Comme nts NA (test code = 5845696115) 132 mmol/L 135-145 L K (test code = 4954762222) 4.1 mmol/L 3.5-5.0 CL (test code = 1937199364) 101 mmol/L 98-108 CO2 TOTAL (test code = 4849694846) 28 mmol/L 23-31 AGAP (test code = 5924171513) 3 2-16 BUN (test code = 8915780018) 17 mg/dL 7-23 GLUCOSE (test code = 0029167437) 149 mg/dL 70-110 H CREATININE (test code = 2160-0) 0.97 mg/dL 0.60-1.25 CALCIUM (test code = 9851578782) 8.4 mg/dL 8.6-10.6 L eGFR (test code = 87232-3) 91.6 mL/min/1.73m2 CKD-EPI eGFR (2020). Assuming creatinine has been stable day-to-day for at least three months, the eGFR indicates Category G1 (>= 90 mL/min/1.73 m2) Lab Interpretation (test code = 37887-8) Abnormal [facility] GLUCOSE (AUTOMATED)2023-08-23 00:43:06* Test Item Value Reference Range Interpretation Comme nts POCT GLU (test code = 9011702450) 126 mg/dL 70-110 H Lab Interpretation (test cod e = 41567-3) Abnormal [facility] Hospital[facility]ort[facility] [id number] 22:59:03* Test Item Value Reference Range Interpretation Comme nts IBRAHIMA AM (test code = 4480632409) 24.7 ug/dL 4.5-23.0 H GINA (test code = GINA) Biotin has been reported to cause a positive bias, interpret results relative to patient's use of biotin. Lab Interpretation (test code = 79264-7) [facility]ATED)2023-08-22 21:29:10* Test Item Value Reference Range Interpretation Comme [facility] POCT GLU (test code = 3495929856) 341 mg/dL 70-110 H Lab Interpretation (test cod e = 04362-0) Abnormal [facility] Hospital[facility]ric [id number] 19:53:59* Test Item Value Reference Range Interpretation Comme [facility] URIC ACID (test code = 6923161677) 6.4 mg/dL 3.6-8.0 Lab Interpretation (test cod e = 55736-7) Normal [facility] Metabolic Panel (NA, K, CL, CO2, GLUCOSE, BUN, CREATININE, CA)2023-08-22 14:43:15* Test Item Value Reference Range Interpretation Comme nts NA (test code = 1359445720) 138 mmol/L 135-145 K (test code = 9951900189) 4.6 mmol/L 3.5-5.0 CL (test code = 1649836974) 102 mmol/L 98-108 CO2 TOTAL (test code = 2764380516) 28 mmol/L 23-31 AGAP (test code = 8076536368) 8 2-16 BUN (test code = 2768364699) 34 mg/dL 7-23 H GLUCOSE (test code = 1325895516) 224 mg/dL 70-110 H CREATININE (test code = 2160-0) 1.89 mg/dL 0.60-1.25 H CALCIUM (test code = 2256030964) 9.4 mg/dL 8.6-10.6 eGFR (test code = 76140-7) 41.1 mL/min/1.73m2 CKD-EPI eGFR (2020). Assuming creatinine has been stable day-to-day for at least three months, the eGFR indicates Category G3b (30 - 44 mL/min/1.73 m2) Lab Interpretation (test code = 03079-8) Abnormal [facility] Hospital[facility]ine [id number] 14:42:45* Test Item Value Reference Range Interpretation Comme nts CK (test code = 4535964113) 224 U/L 33-194 H Lab Interpretation (test cod e = 24411-1) Abnormal [facility] HospitalPhosphorus [id number] 12:10:01* Test Item Value Reference Range Interpretation Comme nts PHOSPHORUS (test code = 4591840210) 5.8 mg/dL 2.5-5.0 H Lab Interpretation (test cod e = 97611-3) Abnormal [facility] Hospital[facility] Metabolic Panel (NA, K, CL, CO2, GLUCOSE, BUN, CREATININE, CA)2023-08-22 04:41:19* Test Item Value Reference Range Interpretation Comme nts NA (test code = 4943580857) 124 mmol/L 135-145 L K (test code = 8264774083) 4.7 mmol/L 3.5-5.0 CL (test code = 3969548631) 93 mmol/L 98-108 L CO2 TOTAL (test code = 6349826683) 18 mmol/L 23-31 L AGAP (test code = 0401450213) 13 2-16 BUN (test code = 9934447380) 68 mg/dL 7-23 H GLUCOSE (test code = 0170964236) 116 mg/dL 70-110 H CREATININE (test code = 2160-0) 6.60 mg/dL 0.60-1.25 H CALCIUM (test code = 8240911652) 9.0 mg/dL 8.6-10.6 eGFR (test code = 58168-5) 9.2 mL/min/1.73m2 CKD-EPI eGFR (2020). Assuming creatinine has been stable day-to-day for at least three months, the eGFR indicates Category G5 (<= 14mL/min/1.73 m2) Lab Interpretation (test code = 34492-5) [facility] WO [id number] 02:22:05Exam: CT Abdomen and Pelvis without Contrast, [...] osseous finding. Subacute/chronic left-sided rib fractures.Soft tissues: Unremarkable.[facility]. Metabolic Panel (57499) 2023-08-22 02:21:33* Test Item Value Reference Range Interpretation Comme nts NA (test code = 4553219911) 120 mmol/L 135-145 L K (test code = 4989049795) 4.8 mmol/L 3.5-5.0 CL (test code = 6702658611) 85 mmol/L 98-108 L CO2 TOTAL (test code = 1358286492) 21 mmol/L 23-31 L AGAP (test code = 5017499276) 14 2-16 BUN (test code = 0776898933) 70 mg/dL 7-23 H GLUCOSE (test code = 7810955614) 97 mg/dL 70-110 CREATININE (test code = 2160-0) 8.39 mg/dL 0.60-1.25 H TOTAL BILI (test code = 4948257892) 0.7 mg/dL 0.1-1.1 CALCIUM (test code = 6480273015) 8.8 mg/dL 8.6-10.6 T PROTEIN (test code = 6042512528) 7.2 g/dL 6.3-8.2 ALBUMIN (test code = 0785321568) 4.1 g/dL 3.5-5.0 ALK PHOS (test code = 2104640671) 95 U/L 34-122 ALTv (test code = 1742-6) 12 U/L 5-50 AST(SGOT) (test code = 1367392940) 24 U/L 13-40 eGFR (test code = 53157-8) 6.9 mL/min/1.73m2 CKD-EPI eGFR (2020). Assuming creatinine has been stable day-to-day for at least three months, the eGFR indicates Category G5 (<= 14mL/min/1.73 m2) Lab Interpretation (test code = 27061-5) Abnormal [facility] Hospital[facility]2024-04-28 02:15:32* Test Item Value Reference Range Interpretation Comme nts LIPASE (test code = 1899917435) 758 U/L 0-220 H Lab Interpretation (test cod e = 89036-3) [facility] [id number] 01:58:31* Test Item Value Reference Range Interpretation [...] g/dL 31.2-35.0 H RDW-SD (test code = 57353-6) 36.0 fL 38.5-51.6 L RDW-CV (test code = 788-0) 11.5 % 12.1-15.4 L PLT (test code = 777-3) 312 150-328 MPV (test code = 93098-8) 9.4 fL 9.8-13.0 L NRBC/100 WBC (test code = 8457020404) 0.0 0.0-10.0 NRBC x10^3 (test code = 1219872383) See_Comment [Automated message] The system which generated this result transmitted reference range: 10*3/?L. The reference range was not used to interpret this result as normal/abnormal. GRAN MAT (NEUT) % (test code = 770-8) 82.7 % IMM GRAN % (test code = 8158038184) 0.50 % LYMPH % (test code = 736-9) 6.7 % MONO % (test code = 5905-5) 9.8 % EOS % (test code = 713-8) 0.2 % BASO % (test code = 706-2) 0.1 % GRAN MAT x10^3(ANC) (test code = 3347911797) 12.19 10*3/uL 1.99-6.95 H IMM GRAN x10^3 (test code = 7285315024) 0.08 10*3/uL 0.00-0.06 H LYMPH x10^3 (test code = 731-0) 0.99 10*3/uL 1.09-3.23 L MONO x10^3 (test code = 742-7) 1.44 10*3/uL 0.36-1.02 H EOS x10^3 (test code = 711-2) 0.03 10*3/uL 0.06-0.53 L BASO x10^3 (test code = 704-7) 0.01-0.09 Lab Interpretation (test code = 75797-9) Abnormal [facility] GLUCOSE (AUTOMATED)2023-08-16 22:02:57* Test Item Value Reference Range Interpretation Comme nts POCT GLU (test code = 6844393843) 112 mg/dL 70-110 H Lab Interpretation (test cod e = 57057-5) Abnormal [facility] GLUCOSE (AUTOMATED)2023-08-16 16:59:58* Test Item Value Reference Range Interpretation Comme nts POCT GLU (test code = 4788201515) 127 mg/dL 70-110 H Lab Interpretation (test cod e = 92506-9) Abnormal [facility] GLUCOSE (AUTOMATED)2023-08-16 12:48:23* Test Item Value Reference Range Interpretation Comme nts POCT GLU (test code = 4930082507) 175 mg/dL 70-110 H Lab Interpretation (test cod e = 52930-9) Abnormal [facility] GLUCOSE (AUTOMATED)2023-08-16 02:07:02* Test Item Value Reference Range Interpretation Comme nts POCT GLU (test code = 7199860408) 195 mg/dL 70-110 H Notified Provide r Lab Interpretation (test code = 24725-8) Abnormal [facility] GLUCOSE (AUTOMATED)2023-08-15 21:36:15* Test Item Value Reference Range Interpretation Comme nts POCT GLU (test code = 0811061625) 284 mg/dL 70-110 H Lab Interpretation (test cod e = 79523-7) Abnormal [facility] GLUCOSE (AUTOMATED)2023-08-15 16:56:02* Test Item Value Reference Range Interpretation Comme nts POCT GLU (test code = 7294569139) 74 mg/dL 70-110 Lab Interpretation (test cod e = 67600-7) Normal [facility] GLUCOSE (AUTOMATED)2023-08-15 13:12:34* Test Item Value Reference Range Interpretation Comme nts POCT GLU (test code = 5805760015) 258 mg/dL 70-110 H Lab Interpretation (test cod e = 26233-9) Abnormal [facility] GLUCOSE (AUTOMATED)2023-08-15 04:04:43* Test Item Value Reference Range Interpretation Comme nts POCT GLU (test code = 4140098286) 120 mg/dL 70-110 H Lab Interpretation (test cod e = 24972-9) [facility]normal [facility] Hospital[facility]cosylated Hemoglobin (A1C)2023-08-15 01:17:32* Test Item Value Reference Range Interpretation Comme nts HGB A1C (test code = 4548-4) 8.9 % 4.0-5.7 H GINA (test code = GINA) Reference RangesNormal: <5.7%Prediabetes: 5.7 - 6.4%Diabetes: > 6.5% Lab Interpretation (test code = 60263-2) Abnormal [facility] HospitalBeta Qyqspxb-[id number] 01:00:45* Test Item Value Reference Range Interpretation Comme nts BOH (test code = 3885068737) 0.5 mmol/L GINA (test code = GINA) Normal Ranges: ? ? Nonfasting ? Less than 0.1 mmol/L ? ? Overnight Fast ? ? ? Less than 0.4 mmol/L ? ? Fasting (1-2 weeks) ?6-8 mmol/L Test developed and characteristics determined by [facility] Laboratory Services. [facility] HospitalCreatine [id number] 23:07:16* Test Item Value Reference Range Interpretation Comme nts CK (test code = 4744086060) 148 U/L 33-194 Lab Interpretation (test cod e = 14824-5) Normal [facility] HospitalTROPONIN [id number] 22:18:16* Test Item Value Reference Range Interpretation Comme nts TROPONIN I (test code = 8765993708) 0.081 ng/mL <=0.034 H GINA (test code [...] of biotin. Lab Interpretation (test code = 53409-2) Abnormal [facility] HospitalN-TERMINAL [id number] 22:15:55* Test Item Value Reference Range Interpretation Comme [facility] NT-proBNP (test code = 92528-8) 999 pg/mL <=125 H GINA (test code = GINA) Positive: Heart Failure Likely Lab Interpretation (test code = 50370-3) Abnormal [facility] HospitalMagnesium2024-04-20 22:07:17* Test Item Value Reference Range Interpretation Comme nts MAGNESIUM (test code = 1092113072) 1.8 mg/dL 1.7-2.4 Lab Interpretation (test cod e = 25603-5) Normal [facility] HospitalCOMP. METABOLIC PANEL (68219)2023 22:06:57* Test Item Value Reference Range Interpretation Comme nts NA (test code = 8923267116) 130 mmol/L 135-145 L K (test code = 4181086288) 3.4 mmol/L 3.5-5.0 L CL (test code = 0428511462) 93 mmol/L 98-108 L CO2 TOTAL (test code = 9150636247) 26 mmol/L 23-31 AGAP (test code = 5538128272) 11 2-16 BUN (test code = 8900267592) 39 mg/dL 7-23 H GLUCOSE (test code = 4800149164) 142 mg/dL 70-110 H CREATININE (test code = 2160-0) 2.40 mg/dL 0.60-1.25 H TOTAL BILI (test code = 9089161347) 1.2 mg/dL 0.1-1.1 H CALCIUM (test code = 1131905317) 9.1 mg/dL 8.6-10.6 T PROTEIN (test code = 4484245707) 7.7 g/dL 6.3-8.2 ALBUMIN (test code = 1665469769) 4.2 g/dL 3.5-5.0 ALK PHOS (test code = 0313715202) 102 U/L 34-122 ALTv (test code = 1742-6) 16 U/L 5-50 AST(SGOT) (test code = 7833947689) 26 U/L 13-40 eGFR (test code = 70451-0) 30.9 mL/min/1.73m2 CKD-EPI eGFR (2020). Assuming creatinine has been stable day-to-day for at least three months, the eGFR indicates Category G3b (30 - 44 mL/min/1.73 m2) Lab Interpretation (test code = 22125-4) Abnormal [facility] HospitalPhosphorus2024-04-20 22:06:37* Test Item Value Reference Range Interpretation Comme nts PHOSPHORUS (test code = 8268174279) 4.9 mg/dL 2.5-5.0 Lab Interpretation (test cod e = 59148-0) Normal [facility] HospitalLIPASE2024-04-20 22:06:17* Test Item Value Reference Range Interpretation Comme nts LIPASE (test code = 7277623897) 204 U/L 0-220 Lab Interpretation (test cod e = 78120-9) Normal [facility] WITH [id number] 21:54:56* Test Item Value Reference Range Interpretation [...] g/dL 31.2-35.0 H RDW-SD (test code = 25920-6) 38.1 fL 38.5-51.6 L RDW-CV (test code = 788-0) 11.8 % 12.1-15.4 L PLT (test code = 777-3) 235 150-328 MPV (test code = 55427-4) 11.1 fL 9.8-13.0 NRBC/100 WBC (test code = 3945271098) 0.0 0.0-10.0 NRBC x10^3 (test code = 6490948778) See_Comment [Automated message] The system which generated this result transmitted reference range: 10*3/?L. The reference range was not used to interpret this result as normal/abnormal. GRAN MAT (NEUT) % (test code = 770-8) 80.3 % IMM GRAN % (test code = 4193606857) 0.60 % LYMPH % (test code = 736-9) 8.7 % MONO % (test code = 5905-5) 10.0 % EOS % (test code = 713-8) 0.2 % BASO % (test code = 706-2) 0.2 % GRAN MAT x10^3(ANC) (test code = 3619205826) 10.18 10*3/uL 1.99-6.95 H IMM GRAN x10^3 (test code = 3705308399) 0.07 10*3/uL 0.00-0.06 H LYMPH x10^3 (test code = 731-0) 1.11 10*3/uL 1.09-3.23 MONO x10^3 (test code = 742-7) 1.27 10*3/uL 0.36-1.02 H EOS x10^3 (test code = 711-2) 0.03 10*3/uL 0.06-0.53 L BASO x10^3 (test code = 704-7) 0.03 10*3/uL 0.01-0.09 Lab Interpretation (test code = 71463-9) Abnormal [facility] HospitalXR CHEST 1 [id number] 21:49:58EXAM: XR CHEST 1 2023 4:38 PM HISTORY: 58 years-old Male with r/o infilrate . TECHNIQUE: Portable AP view of the chest. COMPARISON: 04/21/2023 FINDINGS: Lines and tubes: None. Cardiomediastinal: The cardiomediastinal silhouette is unremarkable. Lungs and pleura: The lungs are clear. No focal consolidation,pneumothorax, or pleural effusion is seen. Included osseous structures show no acuteabnormality.[facility] HospitalCT ABDOMEN PELVIS W [id number] 21:45:03EXAM: CT ABDOMEN AND PELVIS WITH CONTRAST [...] change involving the spine, sacroiliac jointsand hips ispresent.[facility] HospitalCT TRAUMA HEAD WO [id number] 21:38:37FULL RESULT: Examination: CT TRAUMA HEAD WO CONTRAST on 2023 4:16 PM Clinical Indication: Headache, hypertensive Comparison: None Technique: Noncontrast imaging was obtained from base to vertex.Findings: The sulci and ventricles were unremarkable. There may be subtlewhite matter microvascularischemic changes, notably in the anteriorperiventricular region, but there is no evidence for hemorrhage or otherclearly acute intracranial process.[facility] HospitalLamoic Acid Whole [id number] 21:30:25* Test Item Value Reference Range Interpretation Comme [facility] LACTIC ACID (test code = 8526132496) 1.58 mmol/L 0.50-2.20 Lab Interpretation (test cod e = 21684-4) Normal [facility] Care Venous Blood [id number] 21:30:25 * Test Item Value Reference Range Interpretation Comme nts PH (test code = 7145505795) 7.34 7.32-7.42 PCO2 NOY (test code = 6960822947) 45 41-51 PO2 NOY (test code = 8280355927) 24 25-40 L HCO3 NOY (test code = 5364056593) 24 24-28 AC VBE(BEAKER) (test code = 6304177906) -1.9 mEq/L Lab Interpretation (test cod e = 08098-5) Abnormal [facility] GLUCOSE (AUTOMATED)2023 20:26:17* Test Item Value Reference Range Interpretation Comme nts POCT GLU (test code = 8790607643) 165 mg/dL 70-110 H Lab Interpretation (test cod e = 86572-5) Abnormal [facility] GLUCOSE(AGE >30DAYS)2023 20:26:00* Test Item Value Reference Range Interpretation Comme nts POCT Glu (age>30days) (test code = 3342) 165 mg/dL 70-110 A Lab Interpretation (test cod e = 03755-5) [facility] 18:15:28* Test Item Value Reference Range Interpretation Comme nts POCT GLU (test code = 0230558446) 218 mg/dL 70-110 H Lab Interpretation (test cod e = 90877-4) [facility]-23 15:35:23* Test Item Value Reference Range Interpretation Comme nts POCT GLU (test code = 2111434854) 186 mg/dL 70-110 H Lab Interpretation (test cod e = 89293-7) [facility]2023-04-23 02:57:57* Test Item Value Reference Range Interpretation Comme nts POCT GLU (test code = 4352479242) 82 mg/dL 70-110 Lab Interpretation (test cod e = 26962-5) Normal [facility] GLUCOSE (AUTOMATED)2023-04-23 00:33:51* Test Item Value Reference Range Interpretation Comme nts POCT GLU (test code = 4398200397) 181 mg/dL 70-110 H Lab Interpretation (test cod e = 52269-7) [facility]2023-04-22 22:54:22* Test Item Value Reference Range Interpretation Comme nts POCT GLU (test code = 8987573542) 127 mg/dL 70-110 H Lab Interpretation (test cod e = 76313-3) [facility]2023-04-22 20:37:54* Test Item Value Reference Range Interpretation Comme nts POCT GLU (test code = 0783815710) 230 mg/dL 70-110 H Lab Interpretation (test cod e = 64049-9) [facility]2023-04-22 17:46:23* Test Item Value Reference Range Interpretation Comme nts POCT GLU (test code = 0567448881) 144 mg/dL 70-110 H Lab Interpretation (test cod e = 99206-5) [facility]2023-04-22 13:42:26* Test Item Value Reference Range Interpretation Comme nts POCT GLU (test code = 0568747543) 229 mg/dL 70-110 H Lab Interpretation (test cod e = 14003-0) Abnormal [facility] GLUCOSE (AUTOMATED)2023-04-22 03:33:49* Test Item Value Reference Range Interpretation Lianet garcía POCT GLU (test code = 9258645172) 222 mg/dL 70-110 H Lab Interpretation (test cod e = 89820-1) Abnormal [facility] GLUCOSE (AUTOMATED)2023-04-22 01:36:03* Test Item Value Reference Range Interpretation Lianet garcía POCT GLU (test code = 6025582601) 282 mg/dL 70-110 H Lab Interpretation (test cod e = 21524-6) Abnormal [facility] HospitalEchocardiogram dobutamine stress test 2023-04-21 22:26:30* Test Item Value Reference Range Interpretation Lianet garcía Height (test code = 6767374632) 63 in Weight (test code = 9756089662) 130 lbs Systolic BP (test code = 0896103270) 122 mmHg Diastolic BP (test code = 6893088472) 81 mmHg Heart Rate (test code = 0803102330) 105 bpm BSA (test code = 3584092407) 1.[address] Depresion (mm) (test code = 7995110204) [address] Depression (mm) (test code = 7086731810) 0 mm Radiology Study observation (narrative) (test code = 69704-8) GINA (test code = GINA) Table formatting [...] left ventricular wall motion is globally hyperkinetic. [facility] HospitalTransthoracic echo (TTE)2023-04-21 18:05:03* Test Item Value Reference Range Interpretation Comme nts Height (test code = 5134748413) 63 in Weight (test code = 1761266581) 130 lbs Systolic BP (test code = 9953500073) 114 mmHg Diastolic BP (test code = 7982633422) 75 mmHg Heart Rate (test code = 4165949266) 98 bpm BSA (test code = 8898395926) 1.61 m2 LVIDD (test code = 5180356646) 4.00 cm Left Ventricular End Diastolic Volume by Teichholz Method (test code = 4034284) 70.0 mL IVS (test code = 7538066168) 1.07 cm Interventricular Septum Diastolic Thickness by 2D (test code = 6244869) 1.07 cm LVPWD (test code = 4086815404) 1.05 cm PW (test code = 8634893512) 1.05 cm 0.6-1.1 EF(Teich) (test code = 0370553067) 62.60 % LVIDS (test code = 4991353462) 2.70 cm Left Ventricular End Systolic Volume by Teichholz Method (test code = 7427746) 26.2 mL FS (test code = 9976064815) 33 % EF - 2D (test code = 60925271) 62.60 % Ao root diam (test code = 4345870007) 3.70 cm Aortic root (test code = 8837403900) 3.7 cm Ao root annulus (test code = 5768196382) 3.7 cm LA size (test code = 0876583111) 3.2 cm LVOT diameter (test code = 3099355617) 2.08 cm LVOT area (test code = 6503168322) 3.40 cm2 MV Peak E Nima (test code = 7834689126) 48.3 cm/s E wave decelartion time (test code = 4659706424) 0.15 s MV Peak A Nima (test code = 0915210313) 74.4 cm/s E/A ratio (test code = 6009347985) 0.65 ratio MV Prop V (test code = 3857506931) 21.20 cm/s LAV(MOD-sp4) (test code = 0725359609) 35.30 mL Tapse (test code = 4194945397) 1.73 cm LVOT stroke volume (test code = 1753335695) 45.20 cm3 LVOT peak inma (test code = 7706953652) 79.0 cm/s LVOT mn grad (test code = 7502729769) 1.3 mmHg AV LVOT peak gradient (test code = 2145076094) 2.50 mmHg LVOT peak VTI (test code = 6126150054) 13.2 cm LV V1 mean (test code = 0715496206) 52.90 cm/s Ao peak nima (test code = 1961448112) 83.8 cm/s AV area peak nima (test code = 1656381059) 3.2 cm2 Ao max PG (test code = 0748839083) 2.80 mm[Hg] AV peak gradient (test code = 3230958146) 2.8 mmHg LA Volume Index (BP) (test code = 1714612817) 25.9 mL/m2 LA volume (BP) (test code = 3073172099) 41.8 mL LAV(MOD-sp2) (test code = 8529362231) 40.90 mL A4C EF (test code = 1763111537) 54.40 % EF(sp4-el) (test code = 5678197392) 55.00 % SV(MOD-sp4) (test code = 5768542289) 53.10 mL SV(sp4-el) (test code = 3816538675) 55.60 mL Radiology Study observation (narrative) (test code = 34976-1) GINA (test code = GINA) ?Left?Ventricle: Left [...] enhancing agent used. Patient exhibited sinus rhythm. [facility] GLUCOSE (AUTOMATED)2023-04-21 17:48:26* Test Item Value Reference Range Interpretation Comme nts POCT GLU (test code = 6881723541) 198 mg/dL 70-110 H Lab Interpretation (test cod e = 64034-0) Abnormal [facility] HospitalXR CHEST 1 [id number] 15:12:07EXAM: XR CHEST 1 VW HISTORY: NSTEMI COMPARISON: None. FINDINGS: Small bandlike densities in the left midlung have more the appearance ofatelectasis than pneumonia. The lungs are well expanded and clearotherwise. The heart and great vessels are normal except for calcium in thearch of the aorta.[facility] GLUCOSE (AUTOMATED)2023-04-21 09:39:57* Test Item Value Reference Range Interpretation Comme nts POCT GLU (test code = 1989617258) 243 mg/dL 70-110 H Lab Interpretation (test cod e = 37878-8) Abnormal [facility] HospitalFerritin [id number] 07:28:27* Test Item Value Reference Range Interpretation Comme nts FERRITIN (test code = 1308416008) 76.3 ng/mL 18.0-464.0 GINA (test code = GINA) Biotin has been reported to cause a negative bias, interpret results relative to patient's use of biotin. Lab Interpretation (test code = 83661-6) Normal [facility] HospitalGlycosylated Hemoglobin (A1C)2023-04-21 07:25:47* Test Item Value Reference Range Interpretation Comme nts HGB A1C (test code = 4548-4) 12.6 % 4.0-5.7 H GINA (test code = GINA) Reference RangesNormal: <5.7%Prediabetes: 5.7 - 6.4%Diabetes: > 6.5% Lab Interpretation (test code = 09343-4) Abnormal [facility] HospitalThyroid Stimulating Mghfxxp9328-08-07 07:24:07 * Test Item Value Reference Range Interpretation Comme nts TSH (test code = 2396541699) 2.56 See_Comment [Automated messa ge] The system which generated this result transmitted reference range: 0.45 - 4.70 mIU/L. The reference range was not used to interpret this result as normal/abnormal. Lab Interpretation (test code = 19032-6) Normal [facility] HospitalPhosphorus2023-12-27 06:52:06* Test Item Value Reference Range Interpretation Comme nts PHOSPHORUS (test code = 9506561443) 3.2 mg/dL 2.5-5.0 Lab Interpretation (test cod e = 73743-5) Normal [facility] HospitalCritical Cjru4803-80-20 02:54:15NSergio chin MD ? ? 04/20/2023 ?8:54 [...] separately billable procedures and treating other patients. [facility] HospitalTrsaint thomas ruther[facility] hospitaldian [id number] 02:30:18* Test Item Value Reference Range Interpretation Comme nts TROPONIN I (test code = 4638951978) 0.154 ng/mL <=0.034 H GINA (test code [...] of biotin. Lab Interpretation (test code = 88438-2) Abnormal [facility] HospitalETHANOL2023-12-27 02:24:46 ALCOHOL<10mg/dL04/20/2023 8:24 PM [facility]10 Qppqlmpi15-208 Toxic>100 Depression of PHYSICAL THERAPIST CLINIC DIRECTOR>400 Fatalities ReportedUnWise Health Surgical Hospital at ParkwayCOMP. METABOLIC PANEL (43064)2023-04-21 02:19:15* Test Item Value Reference Range Interpretation Comme nts NA (test code = 9659163490) 129 mmol/L 135-145 L K (test code = 7804839758) 3.5 mmol/L 3.5-5.0 CL (test code = 1773294574) 94 mmol/L 98-108 L CO2 TOTAL (test code = 3484898454) 28 mmol/L 23-31 AGAP (test code = 1936733407) 7 2-16 BUN (test code = 7635818289) 26 mg/dL 7-23 H GLUCOSE (test code = 9016789421) 314 mg/dL 70-110 H CREATININE (test code = 1821247447) 0.92 mg/dL 0.60-1.25 TOTAL BILI (test code = 4933316611) 0.8 mg/dL 0.1-1.1 CALCIUM (test code = 1806563942) 8.5 mg/dL 8.6-10.6 L T PROTEIN (test code = 0359586111) 6.0 g/dL 6.3-8.2 L ALBUMIN (test code = 3813777192) 3.3 g/dL 3.5-5.0 L ALK PHOS (test code = 0841452702) 95 U/L 34-122 ALTv (test code = 1742-6) 23 U/L 5-50 AST(SGOT) (test code = 6878411317) 30 U/L 13-40 eGFR (test code = 65710-2) 98.2 mL/min/1.73m2 CKD-EPI eGFR (2020). Assuming creatinine has been stable day-to-day for at least three months, the eGFR indicates Category G1 (>= 90 mL/min/1.73 m2) Lab Interpretation (test code = 15376-3) Abnormal [facility] WITH [id number] 02:03:54* Test Item Value Reference Range Interpretation [...] g/dL 31.2-35.0 H RDW-SD (test code = 38743-2) 36.2 fL 38.5-51.6 L RDW-CV (test code = 788-0) 11.6 % 12.1-15.4 L PLT (test code = 777-3) 178 See_Comment [Automated [employer]a ge] The system which generated this result transmitted reference range: 150 - 328 10*3/?L. The reference range was not used to interpret this result as normal/abnormal. MPV (test code = 60004-9) 10.9 fL 9.8-13.0 NRBC/100 WBC (test code = 3879764685) 0.0 See_Comment [Automated [employer] ssage] The system which generated this result transmitted reference range: 0.0 - 10.0 /100 WBCs. The reference range was not used to interpret this result as normal/abnormal. NRBC x10^3 (test code = 7039696673) See_Comment [Automated [employer] ge] The system which generated this result transmitted reference range: 10*3/?L. The reference range was not used to interpret this result as normal/abnormal. GRAN MAT (NEUT) % (test code = 770-8) 81.3 % IMM GRAN % (test code = 1464020462) 0.30 % LYMPH % (test code = 736-9) 10.5 % MONO % (test code = 5905-5) 7.6 % EOS % (test code = 713-8) 0.1 % BASO % (test code = 706-2) 0.2 % GRAN MAT x10^3(ANC) (test code = 4903405917) 9.55 10*3/uL 1.99-6.95 H IMM GRAN x10^3 (test code = 2128227188) 0.04 10*3/uL 0.00-0.06 LYMPH x10^3 (test code = 731-0) 1.23 10*3/uL 1.09-3.23 MONO x10^3 (test code = 742-7) 0.89 10*3/uL 0.36-1.02 EOS x10^3 (test code = 711-2) 0.06-0.53 L BASO x10^3 (test code = 704-7) 0.01-0.09 Lab Interpretation (test code = 23751-8) Abnormal [facility] HospitalPOCT GLUCOSE (AUTOMATED)2023-04-21 01:55:51* Test Item Value Reference Range Interpretation Comme [facility] POCT GLU (test code = 6377796074) 408 mg/dL 70-110 H Lab Interpretation (test cod e = 99148-6) Abnormal [facility] HospitalCOMPREHENSIVE METABOLIC [id number] 05:07:51* Test Item Value Reference Range Interpretation Comme [facility] GLUCOSE (test code = 2217) 224 MG/DL 70-99 H BUN (test code = 2208) 22 MG/DL 6-20 H CREATININE (test code = 2214) 0.71 MG/DL 0.80-1.40 L eGFR (2020 CKD-EPI) (test code = 22758) 109 ML/MIN/1.73 >60 CALC BUN/CREAT (test code [...] code = 2219) 24 U/L 5-50 LIPID [id number] 05:07:51* Test Item Value Reference Range Interpretation [...] SPECIMENS. FOR MOREINFORMATION, SEE CLIENT ANNOUNCEMENT AT [email or web address] RISK RATIO LDL/HDL (test code = 2238) 1.72 RATIO <3.55 PSA, [id number] 05:07:10* Test Item Value Reference Range Interpretation Comme nts PSA, TOTAL (test code = 2606) 19.70 NG/ML See_Comment H NOTE: Methodolog y is Ashley Jasmina Electrochemiluminescence Immunoassay traceable to WHO reference standard 96/760. UNLESS OTHERWISE INDICATED, ALL TESTING PERFORMED [facility] [address] [place] [address] LEAD TECHNICIAN: DUSTIN COLMENARES M.D. CLIA NUMBER [id number] [place]. [id number] [Automated message] The system which generated this result transmitted reference range: <=4.00. The reference range was not used to interpret this result as normal/abnormal. HEMOGLOBIN [id number] 02:46:58* Test Item Value Reference Range Interpretation Comme nts HEMOGLOBIN A1c (test code = 10123) 11.0 % 4.2-5.6 H [employer] GUIDELINES FOR HGB A1C: [...] OR LABORATORY CONSULTATION. CBC W/AUTO DIFF WITH [id number] 02:32:39* Test Item Value Reference Range Interpretation [...] 0.00-0.10 ABS NUCLEATED RBCS (test code = 34898) 0.00 K/UL 0.00-0.11 Consult Notes Date/Time Note [...] when jensen is moved. COMMUNICATION Primary Language: [place] Able to Verbalize needs: Yes Vision:good; no [...] Minutes: 20 min Jesica Murphy,PT [place] License: [id number] Required Components in Determining Evaluation Level History: No personal factors or comorbidities: No (67686) 1-2 personal factors and/or comorbidities: Yes (85126) 3 or more personal factors and/ or comorbidities: No (28236) Examination of Body System(s) Addressing 1-2 elements: Yes (46646) Addressing a total of 3 or more elements: No (71996) Addressing a total of 4 or more elements: No (42689) Clinical Presentation Stable: Yes (05365) Evolving: No (92453) Unstable: No (32747) Clinical Decision Making (Complexity) Low: No (19965) Moderate: Yes (33232) High: No (74891) Jesica Murphy PT [facility] 3 Four 5 Group 2023-08-15 10:01:34 Associated Order(s): CONSULT CARDIOLOGY [facility] Cardiology Consult Note Patient: Saturnino Maldonado [...] of Onset No Significant Medical Problems Mother NM (myocardial infarction) Father SOCIAL HISTORY Social History [...] specified complication Elevated troponins: Likely type II NM in the setting of underlying ELIEZER/elevated blood [...] per primary team. Last Two A1C Results ([facility]/LC, POCT, [facility]) Recent Labs 04/20/23195408/14/23 1547 [...] feel free to call our office at [phone]. I would be happy to be of further assistance for Saturnino Maldonado wellbeing. Voice recognition software has been used to create portions of this document. An attempt to proofread has been made to minimize errors. Please do not hesitate to call with any questions. Benja Rivera MD Diesel Truck Crane Operator, Division of Cardiology [facility] 2023-04-21 08:46:48 Associated Order(s): CONSULT ENDOCRINOLOGY Endocrinology Consult Note Consultation requested by: Service: White team Reason for Consultation: Diabetes Date of Service: 04/21/23 HPI 57 year old male with a PMH of HTN, T2DM, Fmhx premature CAD who presented with complaints of polyuria and weakness at [facility] ER. Patient transferred to [place] for further work up. Endocrinology consulted for diabetes management Diabetes Type and year diagnosed: 2011, type 2 Diabetes complications: none Hx of DM regimen: no meds for 3 years Compliance: - BG monitoring? - Hypoglycemia hx: no Hypoglycemia unawareness? no Symptoms of hyperglycemia: polyuria Living situation and support: homeless, lives with different relatives Diabetes doctor: PCP in [place], has not seen for few years Family hx of diabetes: no HX of glucocorticoid use: no HX of transfusions or EPO in last 6 months: no PAST MEDICAL HISTORY Past Medical History: Diagnosis Date HTN (hypertension) Uncontrolled diabetes mellitus with hyperglycemia History reviewed. No pertinent surgical history. Family History Problem Relation Age of Onset No Significant Medical Problems Mother NM (myocardial infarction) Father Social History Tobacco Use [...] with complaints of polyuria and weakness at [facility] ER. Patient transferred to [facility] for further work up. Endocrinology consulted for [...] Cabrera.. Austin Amaro. Endocrinology Fellow, PGY 5 UNTING SOFTWARE SPECIALIST Associated attestation - Rita Cabrera MD - 04/22/2023 2:11 PM ACCOUNTING SOFTWARE SPECIALIST Endocrinology Faculty Attestation: I evaluated this patient's progress on 04/21/[address] Amaro note as written and revised. I actively participated in the decision-making process. Please see the resident's note for additional details that includes pertinent addendums I made directly in the note during revision. Rita Cabrera MD Diesel Truck Crane Operator Division of Endocrinology IM-ENDOCRINOLOGY,DIABET ES & METABOLISM [facility] [facility] - Health History and Physical Notes Date/Time Note Provider Source 2023-08-21 22:53:53 [facility] Hospitalist Admission H&P Date of Service: 08/21/2023 [...] consulted. Patient was given the application for MOLI on last admission and will need to [...] of Onset No Significant Medical Problems Mother NM (myocardial infarction) Father SOCIAL HISTORY Social History [...] Tobacco user?: NO Patient will require observation [place] DIESEL ENGINE INSPECTOR was verified during stay Lyubov Banda MD [facility] 2023 22:58:21 MEDICINE [facility] ADMIT H&P Date of Service: 2023 [...] of Onset No Significant Medical Problems Mother NM (myocardial infarction) Father ALLERGIES No Known Allergies [...] present Code Status: Presumed Full Code T [facility] EMERGENCY PHYSICIAN STAFF [facility] 2023-04-21 00:39:12 [facility] Admit H&P PCP: Erik Louie Jr Date of Service: 04/20/2023 CHIEF COMPLAINT: Polyuria HISTORY OF PRESENT ILLNESS Saturnino Maldonado is a 57 year old male with a PMH of HTN, T2DM, Fmhx premature CAD who presented with complaints of polyuria and weakness at [facility] ER. Patient transferred to [facility] for further work up. Patient reports that [...] or drug use. Family history significant for NM in father in his 40s. Currently not [...] use drugs. Family history: family history includes NM (myocardial infarction) in his father; No Significant [...] help with resources. Plan: - Admit to [facility] - Trend Troponin to peak [...] Internal Medicine Department PGY 2, [place] Team UNTING SOFTWARE SPECIALIST Associated attestation - Bret Banda MD - 04/21/2023 2:47 PM ACCOUNTING SOFTWARE SPECIALIST I reviewed patient's chart, vitals, lab work, current medications and other diagnostic studies. I saw and examined the patient today and agree with the detailed note. I actively participated in the decision-making process. Bret Banda MD Diesel Truck Crane Operator Division of Cardiology [facility] Notes Date/Time Note Provider Source 2023-08-24 [...] Outcome: Adequate for discharge Kalina Georges RN [facility] 2023-08-24 13:14:04 Problem: Pain Goal: Control [...] Absence of falls Outcome: Adequate for discharge [facility] 2023-08-23 07:12:12 Problem: Pain Goal: Control [...] Outcome: Progressing as expected Abi Lowery RN [facility] 2023-08-22 22:07:54 Problem: Pain Goal: Control [...] Outcome: Progressing as expected Tammy Sweeney RN [facility] 2023-08-22 08:41:53 Problem: Pain Goal: Control [...] Outcome: Progressing as expected Mihaela Lopez RN [facility] 2023-08-22 03:26:01 Problem: Pain Goal: Control [...] Outcome: Progressing as expected Angeline Claudio RN [facility] 2023-08-21 23:32:26 Patient admitted to [facility] for diagnosis of ELIEZER, urinary obstruction Patient agrees to admission, discussed plan of care with patient and family. Patient is awake, alert, oriented, resp reg unlabored, color appropriate for race, PIV intact No adverse reaction to medications administered while in ED Belongings with patient to unit Report to Xu VILLAGRAN Chela Reyes RN [facility] 2023-08-21 19:43:36 Pt C/O RLQ pain that started yesterday, pt states last BM 08/16/2023. Pt denies any urinary, nausea or vomiting Sydney Duff RN [facility] 2023-08-21 19:39:00 [facility] Emergency Department Note Patient Name: Saturnino Maldonado Date of : 1965 58 year old male Treatment Room: WY7/WY7 Primary Care Physician: Erik Louie Jr Patient Escorted by: Self [9] Mode of Arrival: EMS - [facility] [46] EMS Treatment Prior to ED Arrival: SENIOR IOS SOFTWARE ENGINEER treatment: None Travel and Exposure Screening: Symptoms [...] to not being able to get a [place] identification card over the last 4 years. [...] 0.01 - 0.09 10*3/uL COMP. METABOLIC PANEL (74866) - Abnormal NA 120 (*) 135 - [...] CONTRAST Cbc with Diff Comp. Metabolic Panel (83591) Lipase Urinalysis Basic Metabolic Panel (NA, K, [...] treatment AdmissionCare documentation entered by: Cosme Cardona [facility] 3 Four 5 Group, 27th edition, Copyright ? 2022 [facility] [employer] [facility] All Rights Reserved. [id number]:26:32-05:00 ED COURSE ED Course as of 08/21/23 [...] Electronically signed by: Cosme Cardona DO 08/21/23 5787 [facility] 2023-08-21 19:39:00 AdmissionCare Guideline: Urologic Disease, Inpatient [...] treatment AdmissionCare documentation entered by: Cosme Cardona [facility], 27th edition, Copyright ? 2022 [facility] All Rights Reserved. [id number]:26:32-05:00 [facility] 2023-08-17 08:32:29 ----- Message from Yary [...] with one of us in 3-4 weeks. [facility] 2023-08-16 17:56:55 Summary: discharge transportation Discharge paperwork provided, patient stated he does not have a ride. Transportation was arranged with voucher. Discharge location: [address] [place] [address] Patient verbalized understanding. Hilary Quinones RN [facility] 2023-08-16 17:19:16 Problem: Pain Goal: Control of pain at or below patient's documented comfort goal Outcome: Resolved Goal: Reduction in pain sensation Outcome: Resolved Problem: Skin integrity Impaired (Risk or Actual) Goal: Prevention of new skin breakdown Outcome: Resolved Problem: Venous Thromboembolism, (actual or risk of) Goal: Absence of venous thromboembolism (Risk) Outcome: Resolved [facility] 2023-08-16 10:33:18 Summary: jensen Jensen discontinued without complications. Patient given lactulose PO. Patient notified to notify nurse and to leave urine/stool before flushing for nursing staff to assess. Patient verbalized understanding. [facility] 2023-08-16 00:51:24 Problem: Pain Goal: Control of pain at or below patient's documented comfort goal Outcome: Progressing as expected Goal: Reduction in pain sensation Outcome: Progressing as expected Problem: Skin integrity Impaired (Risk or Actual) Goal: Prevention of new skin breakdown Outcome: Progressing as expected Problem: Venous Thromboembolism, (actual or risk of) Goal: Absence of venous thromboembolism (Risk) Outcome: Progressing as expected [facility] 2023-08-15 19:27:06 Problem: Pain Goal: Control of pain at or below patient's documented comfort goal Outcome: Progressing as expected Goal: Reduction in pain sensation Outcome: Progressing as expected Problem: Skin integrity Impaired (Risk or Actual) Goal: Prevention of new skin breakdown Outcome: Progressing as expected Problem: Venous Thromboembolism, (actual or risk of) Goal: Absence of venous thromboembolism (Risk) Outcome: Progressing as expected [facility] Libia Johnson RN [facility] 2023 23:43:36 Problem: Pain Goal: Control of pain at or below patient's documented comfort goal Outcome: Progressing as expected Goal: Reduction in pain sensation Outcome: Progressing as expected Problem: Skin integrity Impaired (Risk or Actual) Goal: Prevention of new skin breakdown Outcome: Progressing as expected Problem: Venous Thromboembolism, (actual or risk of) Goal: Absence of venous thromboembolism (Risk) Outcome: Progressing as expected [facility] 2023 23:01:15 Patient admitted to [facility] for diagnosis of Hypertension, elevated troponin, urine retention, ELIEZER, hypokalemia. Patient agrees to admission, discussed plan of care with patient and family. Patient is awake, alert, oriented, resp reg unlabored, color appropriate for race, PIV intact No adverse reaction to medications administered while in ED Belongings with patient to unit Report to [facility] RN Josi Miller RN [facility] 2023 18:56:57 Handoff report given to Josi VILLAGRAN Nunu Fang RN [facility] 2023 14:42:29 Has been out of diabetic, BP meds since April. States he can't "afford it". Struggling with constipation for "several days". He called EMS today for excessive fatigue and worsening hypertension. He is A&Ox4 and able to ambulate. Alba Hernandez RN [facility] 2023 14:38:00 Associated Order(s): EKG-12 Lead ROUTINE ONCE Pre-Procedure Diagnose(s): Hypertension, unspecified type Post-Procedure Diagnose(s): Hypertension, unspecified type; Elevated troponin I level; Urine retention [facility] Emergency Department Note Patient Name: Saturnino Maldonado Date of : 1965 58 year old male Treatment Room: TX6/TX6 Primary Care Physician: Erik Louie Jr Patient Escorted by: Self [9] Mode of Arrival: EMS - [facility] [46] EMS Treatment Prior to ED Arrival: [...] History provided by: Patient and medical records interpreter and translator used: No Past Medical History/Immunizations: Past Medical [...] ED Physician in the absence of a biometrics technician: yes Previous ECG: Previous ECG: Compared to [...] Electronically signed by: Umang Reynaga MD 08/14/231851 [facility] 2023 14:38:00 AdmissionCare Guideline: Renal Failure (Acute), [...] serial assessments) AdmissionCare documentation entered by: [facility] [employer], edition, Copyright ? 2022 [employer] All Rights Reserved. [id number]:45:18-05:00 [facility] [employer] 2023 14:38:00 AdmissionCare Guideline: Renal Failure (Acute) [...] patients) AdmissionCare documentation entered by: Umang Reynaga [employer], edition, Copyright ? 2022 [employer] All Rights Reserved. [id number]:00:25-05:00 [facility] [employer] 2023-04-27 15:56:14 TRANSITIONAL CARE MANAGEMENT ASSESSMENT 04/27/2023 Saturnino Maldonado [id number] Saturnino Maldonado is a 57 year old /White male was admitted on 04/20/[address] He was discharged on 04/23/23 with [...] to check in. No linked episodes TCM Mdq-fqqb-kv-face outreach documentation: Future Appointments: UNTING SOFTWARE SPECIALIST Jeannette Dawn LVN [facility] 2023-04-23 18:39:42 Patient refuses to take taxi voucher which takes him directly to [employer] stating, "My brother is on his way to pick me up. I don't want to upset him as it is anymore." When asked if his brother is going to take him to [employer], patient stated, "I don't know. That will be between me and my brother." Transportation in room, wheeled patient downstairs to [facility]. A Sparks RN [facility] 2023-04-23 17:33:42 Problem: Glucose control Goal: [...] Outcome: Progressing as expected A Whiting RN [facility] 2023-04-23 17:33:03 Problem: Glucose control Goal: [...] Valentino Whiting RN Outcome: Progressing as expected [facility] 2023-04-23 10:51:50 Problem: Glucose control Goal: Glucose [...] of cognitive ability Outcome: Progressing as expected [facility] 2023-04-23 00:56:44 Problem: Mental Status - Impaired Goal: Able to achieve maximum level of cognitive ability Outcome: Progressing as expected [facility] 2023-04-23 00:52:07 Problem: Glucose control Goal: Glucose [...] within specified parameters Outcome: Progressing as expected [facility] 2023-04-22 08:03:00 Problem: Glucose control Goal: Glucose [...] within specified parameters Outcome: Progressing as expected [facility] 2023-04-20 23:38:56 Problem: Glucose control Goal: Glucose [...] within specified parameters Outcome: Progressing as expected [facility] 2023-04-20 21:49:51 Patient admitted to [facility] for diagnosis of WEAKNESS, NSTEMI, HYPERGLYCEMIA Patient agrees to admission, discussed plan of care with patient. Patient is awake, alert, oriented, resp reg unlabored, color appropriate for race, PIV intact No adverse reaction to medications administered while in ED Belongings with patient to unit Report to MARIE VILLAGRAN REPORT GIVEN TO MEDIC FOR [facility], PT LOADED TO BE TRANSFERRED. HEPARIN INFUSING AT 700 UNITS/ HOUR. UNTING SOFTWARE SPECIALIST Jaelyn Vargas RN [facility] 2023-04-20 21:38:11 Report called to [facility], spoke with Marie VILLAGRAN. Pt awaiting EMS transfer. UNTING SOFTWARE SPECIALIST [facility] 2023-04-20 20:59:06 [facility] ETA 45 MIN per Chen A Carrero PCT [facility] 2023-04-20 20:54:15 Associated Order(s): Critical Care [...] separately billable procedures and treating other patients. [facility] 2023-04-20 20:00:00 Patient aware of UA sample needed. Unable to provide sample at this moment. Urinal at bedside. Call light within reach. [facility] 2023-04-20 19:50:08 Patient arrived to ED via [facility] c/o "not feeling well." FSBG 386 SENIOR IOS SOFTWARE ENGINEER. Per patient he was diagnosed with DM five years ago and stopped taking home meds-Metformin about three years ago. Patient c/o of being weak and increased UOP. Patient was nauseous SENIOR IOS SOFTWARE ENGINEER but has resolved since. [facility] 2023-04-20 19:43:00 EMERGENCY DEPARTMENT ENCOUNTER [facility] Patient Name: Saturnino Maldonado Date of : 1965 57 year old Exam Room:Room/bed info not found Primary Care Physician: No primary care provider on file. Pre- Hospital Patient Escorted by: Self [9] Mode of Arrival: EMS - [facility] [43] EMS Treatment Prior to ED Arrival: SENIOR IOS SOFTWARE ENGINEER treatment: Saline lock;IVF ED Events Date/Time Event User Comments 04/20/231943 Medical Screening Begins SERGIO APONTE MD -- 04/20/231943 First Provider Evaluation SERGIO APONTE MD -- Chief Complaint Chief Complaint Patient presents with High Blood Sugar ED Triage Notes Megan Madrigal RN 04/20/2023 19:52 Patient arrived to ED via [facility] c/o "not feeling well." FSBG 386 SENIOR IOS SOFTWARE ENGINEER. Per patient he was diagnosed with DM five years ago and stopped taking home meds-Metformin about three years ago. Patient c/o of being weak and increased UOP. Patient was nauseous SENIOR IOS SOFTWARE ENGINEER but has resolved since. HPI History provided [...] 0.01 - 0.09 10*3/uL COMP. METABOLIC PANEL (33587) - Abnormal NA 129 (*) 135 - [...] VW CBC WITH DIFF COMP. METABOLIC PANEL (50466) URINALYSIS URINE DRUG (IMMUNOASSAY) - COMPREHENSIVE DRUG SCREEN W/O REFLEX ETHANOL POCT GLUCOSE (AUTOMATED) Troponin I Prothrombin Time / INR aPTT aPTT (for use with Heparin Infusion) Ferritin Serum Iron Panel Troponin I Thyroid Stimulating Hormone Glycosylated Hemoglobin (A1C) Phosphorus Cbc with Diff Basic Metabolic Panel (NA, K, CL, CO2, GLUCOSE, BUN, CREATININE, CA) Magnesium Lipid Panel (39162)(Total Cholesterol, Triglycerides, HDL) O2 Per Protocol Orders [...] mg Procedures EKG Time 1950 Sinus tach [place] normal Intervals normal No acute ischemia Notes [...] demonstrates that he is having a silent NM. He has elevated troponin of 0.154. Please note he does not have any chest pain or shortness of breath. EKG does not demonstrate a STEMI. He was started on heparin, Plavix, and aspirin. The patient may require cardiac catheterization. The patient was transferred to [facility] for further evaluation. History, physical exam findings, [...] this patient. Sergio Aponte Jr., MD Clinical Diesel Truck Crane Operator [facility] Emergency Department [employer] is used frequently and may produce errors. Promptly contact for obvious discrepancies. Sergio Aponte MD 04/21/23 0025 [facility] EMERGENCY PHYSICIAN STAFF [facility]
[2024-01-02 19:44] LABS: Specific Gravity 1.005 (1.005-1.030); Sqamous Epithelial None Seen /HPF (None Seen); Urine Bacteria <20 /HPF (<20); Urine Bilirubin NEGATIVE (Negative); Urine Blood 1+ (Negative); Urine Clarity Clear (Clear); Urine Color Colorless (Yellow); Urine Culture Reflex Order NOT NEEDED; Urine Glucose 4+ (Over) (Negative); Urine Ketones NEGATIVE (Negative); Urine Micro Reflex YN NO BILL MICROSCOPIC; Urine Nitrite NEGATIVE (Negative); Urine Protein TRACE (Negative); Urine Urobilinogen Normal (Normal)
--- NOTE | 2024-01-02 19:46 | EDPHYS ---
Physician Documentation [facility] Name: Johnnie Maldonado Age: 58 yrs Sex: Male : 1965 Arrival Date: 01/02/2024 Time: 16:53 Bed 17 Private MD: ED Physician Fernando Schafer HPI: 01/01 17:23 This 58 yrs old Male presents to ER via Ambulatory with complaints of Problem sb4 With Urinary Catheter. 17:23 patient is here requesting to have his jensen catheter removed. he denies any issues sb4 with it, he is just tired of it and wants it out. he states he has it because occasionally has urinary incontinence. Historical: - Allergies: 17:13 No Known Allergies; tm6 - PMHx: 17:13 diabetes mellitus; Hypertensive disorder; raynaud's; Urinary incontinence; tm6 - PSHx: 17:13 right arm; tm6 - Immunization history:: Client reports receiving the 2nd dose of the Covid vaccine. - Infectious Disease History:: Denies. - Social history:: Smoking status: Patient denies any tobacco usage or history of. Patient/guardian denies using alcohol. ROS: 17:24 Constitutional: Negative for fever, chills, and weight loss, sb4 17:24 All other systems are negative, Exam: 17:24 Constitutional: This is a well developed, well nourished patient who is awake, alert, sb4 and in no acute distress. Head/Face: Normocephalic, atraumatic. Eyes: Extra-ocular motions intact. Periorbital areas with no swelling, redness, or edema. ENT: Mucous membranes moist. Skin: Warm, dry with normal turgor. Normal color with no rashes, no lesions, and no evidence of cellulitis. 17:24 : a jensen is noted, urine is clear, Vital Signs: 17:12 BP 141 / 98; Pulse 110; Resp 19; Temp 98.5(O); Pulse Ox 99% on R/A; Weight 52.16 kg; tm6 Height 5 ft. 3 in. ; Pain 0/10; 19:15 BP 177 / 109; Pulse 105; Resp 17; Temp 98.5; Pulse Ox 99% ; Pain 0/10; bm8 17:12 Body Mass Index 20.37 (52.16 kg, 160.02 cm) tm6 17:12 Pain Scale: Adult tm6 19:15 Pain Scale: Adult bm8 Lester Coma Score: 19:15 Eye Response: spontaneous(4). Motor Response: obeys commands(6). Verbal Response: bm8 oriented(5). Total: 15. MDM: 17:08 Patient medically screened. sb4 17:24 Data reviewed: vital signs, nurses notes, lab test result(s), and as a result, I will sb4 discharge patient. Care significantly affected by the following Social Determinants of Health: Poor access to healthcare and/or lack of insurance, Poor access to transportation, Inadequate housing. 01/01 17:22 Order name: UAM: post catheter removal; Complete Time: 19:46 sb4 01/01 17:22 Order name: Misc. Order: remove jensen catheter; Complete Time: 17:39 sb4 Administered Medications: No medications were administered Disposition: 19:11 Co-signature as Attending Physician, Fernando Schafer MD I reviewed the patient's care rt provided by the Advanced Practice Provider and agree with the diagnosis and treatment plan. Disposition Summary: 01/02/24 19:46 Discharge Ordered Notes: Location: Home sb4 Problem: new sb4 Symptoms: have improved sb4 Condition: Stable sb4 Diagnosis - Encounter for removal of urinary catheter sb4 - Essential (primary) hypertension sb4 Followup: sb4 - With: Emergency Department - When: As needed - Reason: Trouble breathing, Worsening of condition Discharge Instructions: - Discharge Summary Sheet sb4 - Hypertension, Adult, [id number]-[id number] sb4 - Acute Urinary Retention, Male, [id number] sb4 Forms: - Patient Portal Instructions sb4 - Leadership Thank You Letter sb4 Signatures: Dispatcher [employer] Rivka Fierro PA-C PA-C sb4 Fernando Schafer MD MD rt Alma Andersen RN RN tm6 Corrections: (The following items were deleted from the chart) 17:25 17:23 patient is here requesting to have his jensen catheter removed. he denies any sb4 issues with it, he is just tired of it and wants it out. he states he has it because occasionally has urinary retention. sb4
--- NOTE | 2024-01-02 19:46 | ER ---
Nurse's Notes [facility] Name: Johnnie Maldonado Age: 58 yrs Sex: Male : 1965 Arrival Date: 01/02/2024 Time: 16:53 Bed 17 Private MD: Diagnosis: Encounter for removal of urinary catheter;Essential (primary) hypertension Presentation: 01/01 17:12 Chief complaint: Patient states: I'm supposed to get my catheter out tomorrow, but I tm6 wanted to see if I could get it out today. Coronavirus screen: Vaccine status: Patient reports receiving the 2nd dose of the covid vaccine. Ebola Screen: Patient negative for fever greater than or equal to 101.5 degrees Fahrenheit, and additional compatible Ebola Virus Disease symptoms Patient denies exposure to infectious person. Patient denies travel to an Ebola-affected area in the 21 days before illness onset. No symptoms or risks identified at this time. Initial Sepsis Screen: Does the patient meet any 2 criteria? HR > 90 bpm. Does the patient have a suspected source of infection? No. Patient's initial sepsis screen is negative. Risk Assessment: Do you want to hurt yourself or someone else? Patient reports no desire to harm self or others. Onset of symptoms is unknown. 17:12 Method Of Arrival: Ambulatory tm6 17:12 Acuity: DONTE 4 tm6 Triage Assessment: 17:13 General: Appears in no apparent distress. Behavior is calm, cooperative. Pain: Denies tm6 pain. EENT: No signs and/or symptoms were reported regarding the EENT system. Neuro: Level of Consciousness is awake, alert, obeys commands, Oriented to person, place, time, situation. Cardiovascular: Patient's skin is warm and dry. Respiratory: Airway is patent Respiratory effort is even, unlabored, Respiratory pattern is regular, symmetrical. GI: No signs and/or symptoms were reported involving the gastrointestinal system. Abdomen is flat, non-distended. : Reports would like to have his catheter removed today instead of tomorrow. Derm: No signs and/or symptoms reported regarding the dermatologic system. Musculoskeletal: No signs and/or symptoms reported regarding the musculoskeletal system. Historical: - Allergies: 17:13 No Known Allergies; tm6 - PMHx: 17:13 diabetes mellitus; Hypertensive disorder; raynaud's; Urinary incontinence; tm6 - PSHx: 17:13 right arm; tm6 - Immunization history:: Client reports receiving the 2nd dose of the Covid vaccine. - Infectious Disease History:: Denies. - Social history:: Smoking status: Patient denies any tobacco usage or history of. Patient/guardian denies using alcohol. Screenin:15 [facility] ED Fall Risk Assessment (Adult) History of falling in the last 3 months, bm8 including since admission No falls in past 3 months (0 pts) Confusion or Disorientation No (0 pts) Intoxicated or Sedated No (0 pts) Impaired Gait No (0 pts) Mobility Assist Device Used No (0 pt) Altered Elimination No (0 pt) Score/Fall Risk Level 0 - 2 = Low Risk Oriented to surroundings, Maintained a safe environment, Educated pt \T\ family on fall prevention, incl call for assistance when getting out of bed, Assessed \T\ reinforced patient's understanding of fall precautions, Hourly rounding (assess needs \T\ fall precautionary measures) done, Used ambulatory aids as needed (educated on \T\ assisted with), Used gait belt as appropriate. Abuse screen: Denies threats or abuse. Nutritional screening: No deficits noted. Tuberculosis screening: No symptoms or risk factors identified. Assessment: 19:15 Reassessment: Patient appears in no apparent distress at this time. Patient and/or bm8 family updated on plan of care and expected duration. Pain level reassessed. Patient is alert, oriented x 3, equal unlabored respirations, skin warm/dry/pink. General: Appears in no apparent distress. comfortable, Behavior is calm, cooperative, appropriate for age. Pain: Denies pain. Cardiovascular: No deficits noted. Denies chest pain, Capillary refill < 3 seconds Patient's skin is warm and dry. Respiratory: Airway is patent Respiratory effort is even, unlabored, Respiratory pattern is regular, symmetrical, Breath sounds are clear bilaterally. : Urine is clear, Reports pt urinated at shift change approx 350ml output. Vital Signs: 17:12 BP 141 / 98; Pulse 110; Resp 19; Temp 98.5(O); Pulse Ox 99% on R/A; Weight 52.16 kg; tm6 Height 5 ft. 3 in. ; Pain 0/10; 19:15 BP 177 / 109; Pulse 105; Resp 17; Temp 98.5; Pulse Ox 99% ; Pain 0/10; bm8 17:12 Body Mass Index 20.37 (52.16 kg, 160.02 cm) tm6 17:12 Pain Scale: Adult tm6 19:15 Pain Scale: Adult bm8 Lester Coma Score: 19:15 Eye Response: spontaneous(4). Motor Response: obeys commands(6). Verbal Response: bm8 oriented(5). Total: 15. ED Course: 16:55 Patient arrived in ED. ra3 17:01 Rivka Morales PA-C is PHCP. sb4 17:01 Fernando Schaefr MD is Attending Physician. sb4 17:13 Triage completed. tm6 17:13 Arm band placed on left wrist. tm6 19:15 Socrates Gonzalez, RN is Primary Nurse. bm8 19:15 Patient has correct armband on for positive identification. Bed in low position. Call bm8 light in reach. Side rails up X 1. Client placed on continuous cardiac and pulse oximetry monitoring. NIBP monitoring applied. Pulse ox on. NIBP on. Notified Nurse Practitioner and/or Physician Overnight Associate of vital signs. Door closed. Noise minimized. Pillow given. Verbal reassurance given. Head of bed elevated. 19:26 No provider procedures requiring assistance completed. bm8 19:56 Patient did not have IV access during this emergency room visit. bm8 19:57 Provided Education on: post er care. bm8 Administered Medications: No medications were administered Medication: 19:15 VIS not applicable for this client. bm8 Outcome: 19:46 Discharge ordered by . sb4 19:57 Discharged to home ambulatory, bm8 19:57 Condition: stable 19:57 Discharge instructions given to patient, Instructed on discharge instructions, follow up and referral plans. safety practices, Demonstrated understanding of instructions, follow-up care, medications, 19:57 Patient left the ED. bm8 Signatures: Rivka Morales PA-C PA-C sb4 Alma Andersen RN RN 6 Jordana Julian ra3 Socrates Gonzalez, RN RN bm8
[2024-01-02 20:02] VITALS: TEMP 98.5; O2SAT 99
[2024-01-02 20:03] VITALS: BP 177/109
== END 2024-01-02 19:57 | disposition home or self-care (01) ==
LOC: ER 16:53
DX: R32 Unspecified urinary incontinence (principal); E11.9 Type 2 diabetes mellitus without complications; I10 Essential (primary) hypertension; I73.00 Raynaud's syndrome without gangrene; Z46.6 Encounter for fitting and adjustment of urinary device
CPT/HCPCS: 81001; 99283

== ENCOUNTER 2024-01-30 18:58 | Emergency (ER) | payer SELFPAY ==
--- OUTSIDE RECORDS SUMMARY | 2024-01-30 19:05 | XMS REPORT | Continuity of Care Document ---
Author Name Unknown Address [address] [place] [address] [facility] Address [address] [place] [address] Care Team Providers Care Spindraw Operator Name Role Phone Erik Louie Jr. Primary Care Physician + [phone] Cosme Cardona DO Attending Clinician [phone] Solo CHONG, Lyubov Hilton Attending Clinician [phone] Rosalie Irizarry RN Attending Clinician [phone] Miguel CHONG, Ricky KLakishaH. Attending Clinician [phone] Umang Reynaga MD Attending Clinician [phone] Jerry Fields DO Attending Clinician [phone] Vimal Quiñones MD Attending Clinician [phone] Jeannette Dawn LVN Attending Clinician + [phone] PARVEZ MONROE Attending Clinician Unavailable Sergio Aponte MD Attending Clinician [phone] Bret Banda MD Attending Clinician [phone] Parvez Monroe MD Attending Clinician [phone] Solo CHONG, Lyubov Hliton Admitting Clinician [phone] Jerry Fields DO Admitting Clinician [phone] PARVEZ MONROE Admitting Clinician Unavailable Parvez Monroe MD Admitting Clinician Problems Condition Name Condition Details Condition Category Status Onset Date Resolution Date Last Treatment Date Treating Clinician Comments Source Elevated troponin I level Elevated troponin I level Disease Active 08-14 00:00: 00 [facility] Elevated brain natriureti c peptide (BNP) level Elevated brain natriureti c peptide (BNP) level Disease Active 08-14 00:00: 00 [facility] Essential hypertensi on Essential hypertensi on Disease Active 08-14 00:00: 00 [facility] ELIEZER (acute kidney injury) ELIEZER (acute kidney injury) Disease Active 08-14 00:00: 00 [facility] Type 2 diabetes mellitus with other specified complicati on Type 2 diabetes mellitus with other specified complicati on Disease Active 08-14 00:00: 00 [facility] Hypertensi on, unspecifie d type Hypertensi on, unspecifie d type Disease Active 08-13 00:00: 00 [facility] NSTEMI (non-ST elevated myocardial infarction ) NSTEMI (non-ST elevated myocardial infarction ) Disease Active 2022-04 00:00: 00 [facility] Allergies, Adverse Reactions, Alerts Allergy Name Allergy Type Status Severity Reaction(s) Onset Date Inactive Date Treating Clinician Comments Source NO KNOWN ALLERGIE S Drug Class Active [facility] Social History Social Habit Start Date Stop Date Quantity Comments Source [facility] function 2023-08-23 00:00:00 2023-08-23 00:00:00 [facility] Alcohol intake 2023-08-22 00:00:00 2023-08-22 00:00:00 Lifetime non-drinker (finding) [facility] Tobacco use and exposure 2023-04-21 00:00:00 2023-04-21 00:00:00 Smokeless tobacco non-user [facility] Sex Assigned At 1965 00:00:00 1965 00:00:00 [facility] Smoking Status Start Date Stop Date Source Never smoked tobacco [facility] Medications Ordered Medication Name Filled Medication Name Start Date Stop Date Current Medication? Ordering Clinician Indication Dosage Frequency Signature (SIG) Comments Components Source acarbose 25 mg tablet 08-23 00:00: 00 Yes [id number] 25mg Take 1 tablet by mouth in the morning and 1 tablet at noon and 1 tablet in the evening. Take with meals. [facility] metFORMIN 500 mg 24 hr tablet 08-23 00:00: 09-23 04:59 :00 No [id number] 500mg Take 1 tablet by mouth in the morning and 1 tablet in the evening. Take with meals. Do all this for 30 days. [facility] amLODIPine 10 mg tablet 08-23 00:00: 09-23 04:59 :00 No [id number] 10mg Take 1 tablet by mouth in the morning for 30 days. [facility] tamsulosin 0.4 mg 24 hr capsule 08-23 00:00: 09-23 04:59 :00 No [id number] .4mg Take 1 capsule by mouth in the morning for 30 days. [facility] levoFLOXaci n 500 mg tablet 08-23 00:00: 00 08-26 04:59 :00 No [id number] 500mg Take 1 tablet by mouth every 24 (twenty-fo ur) hours for 2 days. [facility] cefTRIAXone (ROCEPHIN) 1,000 mg in [...] Urine
D uration of therapy: Once (ED) [facility] D5W IV infusion 1,000 mL 08-22 15:00: 00 08-22 16:53 :22 No 1000mL at 50 mL/hr, IV Infusion, ONCE, 1 dose, On Wed08/23/23 at 1000, Routine [facility] amLODIPine (NORVASC) tablet 5 mg 08-22 14:00: 00 Yes 5mg 5 mg, Oral, DAILY, First dose on Wed08/23/23 at 0900, Until Discontinu ed, Routine [facility] D5W 0.45% NaCl (1/2NS) IV infusion 1,000 mL 08-22 02:29: 00 08-23 17:53 :57 No 1000mL at 75 mL/hr, 1,000 mL, IV Infusion, CONTINUOUS , Starting on Wed08/22/23 at 2130, Until Wed08/24/23 at 1253, Routine [facility] D5W IV infusion 1,000 mL 08-21 21:30: 00 08-22 02:27 :22 No 1000mL at 100 mL/hr, IV Infusion, CONTINUOUS , Starting on Wed08/22/23 at 1630, Until Wed08/22/23 at 2127, Routine [facility] Sliding Scale Insulin - Lispro (HumaLOG) 08-21 21:00: 00 Yes Subcutaneo us, Q4H, First dose on Wed08/22/23 at 1600, Until Discontinu ed, Routine [facility] glucagon (GLUCAGEN DIAGNOSTIC KIT) injection 1 mg 08-21 20:17: 12 Yes 1mg 1 mg, Intramuscu lar, PRN, Starting on Wed08/22/23 at 1517, Until Discontinu ed, HAO, Blood Glucose < or = 70 mg/dL and patient is NPO, unable to swallow or has mental changes. [facility] dextrose 50 % in water (D50W) injection 25 mL 08-21 20:17: 12 Yes 25mL 25 mL, Slow IV Push, PRN, Starting on Wed08/22/23 at 1517, Until Discontinu ed, HAO, Blood Glucose < or = 70 mg/dL and patient is NPO, unable to swallow or has mental status changes. [facility] D5W IV infusion 1,000 mL 08-21 17:45: 00 08-21 20:16 :11 No 1000mL at 100 mL/hr, IV Infusion, CONTINUOUS , Starting on Wed08/22/23 at 1245, Until Wed08/22/23 at 1516, Routine [facility] tamsulosin (FLOMAX) capsule 0.4 mg 08-21 14:00: 00 Yes .4mg 0.4 mg, Oral, DAILY, First dose on Wed08/22/23 at 0900, Until Discontinu ed, Routine [facility] docusate (COLACE) capsule 100 mg 08-21 13:00: 00 Yes 100mg 100 mg, Oral, BID, First dose on Wed08/22/23 at 0800, Until Discontinu ed, Routine [facility] heparin (porcine) injection 5,000 Units 08-21 13:00: 00 Yes 5000U 5,000 Units, Subcutaneo us, Q12H, First dose on Wed08/22/23 at 0800, Until Discontinu ed, Routine [facility] D5W 0.45% NaCl (1/2NS) IV infusion 1,000 mL 08-21 06:15: 00 08-21 16:44 :38 No 1000mL at 100 mL/hr, 1,000 mL, IV Infusion, CONTINUOUS , Starting on Wed08/22/23 at 0115, Until Wed08/22/23 at 1144, Routine [facility] D5W 0.45% NaCl (1/2NS) Bolus infusion 1,000 mL 08-21 06:00: 00 08-21 06:21 :00 No 1000mL at 999 mL/hr, 1,000 mL, IV Infusion, ONCE, 1 dose, On Wed08/22/23 at 0100, Routine [facility] NaCl 0.9% (NS) bolus infusion 1,000 mL 08-21 04:15: 00 08-21 05:05 :00 No 1000mL at 999 mL/hr, 1,000 mL, IV Infusion, ONCE, 1 dose, On 08/21/23 at 2315, STAT [facility] bisacodyL (DULCOLAX) tablet 10 mg 08-21 04:02: 51 Yes 10mg 10 mg, Oral, QDAILYPRN, Starting on 08/21/23 at 2302, Until Discontinu ed, Routine, Constipati on [facility] ondansetron (ZOFRAN (PF)) injection 4 mg 08-21 04:02: 17 Yes 4mg 4 mg, Slow IV Push, Q6HPRN, Starting on 08/21/23 at 2302, Until Discontinu ed, Routine, Nausea and Vomiting (N/V) [facility] FENTanyl PF (SUBLIMAZE (PF)) injection 12.5 mcg 08-21 04:02: 09 08-22 04:01 :09 No 12.5ug 12.5 mcg, Slow IV Push, Q6HPRN, Starting on 08/21/23 at 2302, Until 08/22/23 at 2301, Routine, Pain (scale 7-10), Pain (scale 4-6) [facility] acetaminoph en (TYLENOL) tablet 650 mg 08-21 04:01: 56 Yes 650mg 650 mg, Oral, Q6HPRN, Starting on 08/21/23 at 2301, Until Discontinu ed, Routine, Pain (scale 1-3) [facility] magnesium citrate solution 296 mL 08-21 01:45: 00 08-21 01:25 :00 No 296mL 296 mL, Oral, ONCE, 1 dose, On 08/21/23 at 2045, Routine [facility] amLODIPine 5 mg tablet 08-16 00:00: 00 08-23 00:00 :00 No [id number] 5mg Take 1 tablet by mouth in the morning for 30 days. [facility] lactulose (CEPHULAC) solution 45 mL 08-15 15:45: 00 08-15 15:21 :00 No 45mL 45 mL, Oral, ONCE, 1 dose, On Wed08/16/23 at 1045, Routine [facility] amLODIPine (NORVASC) tablet 5 mg 08-15 14:00: 00 Yes 5mg 5 mg, Oral, DAILY, First dose on Wed08/16/23 at 0900, Until Discontinu ed, Routine [facility] sennosides (SENOKOT) tablet 8.6 mg 08-15 14:00: 00 Yes 8.6mg 8.6 mg, Oral, DAILY, First dose on Wed08/16/23 at 0900, Until Discontinu ed, Routine [facility] losartan (COZAAR) tablet 25 mg 08-15 14:00: 00 Yes 25mg 25 mg, Oral, DAILY, First dose (after last modificati on) on Wed08/16/23 at 0900, Until Discontinu ed, Routine [facility] docusate (COLACE) capsule 100 mg 08-15 13:00: 00 Yes 100mg 100 mg, Oral, BID, First dose on Wed08/16/23 at 0800, Until Discontinu ed, Routine [facility] lactulose (CEPHULAC) solution 30 mL 08-15 10:00: 00 08-15 09:33 :00 No 30mL 30 mL, Oral, ONCE, 1 dose, On Wed08/16/23 at 0500, Routine [facility] metFORMIN 500 mg 24 hr tablet 08-15 00:00: 00 08-23 00:00 :00 No [id number] 500mg Take 1 tablet by mouth in the morning and 1 tablet in the evening. Take with meals. Do all this for 30 days. [facility] acarbose 25 mg tablet 08-15 00:00: 00 08-23 00:00 :00 No [id number] 25mg Take 1 tablet by mouth in the morning and 1 tablet at noon and 1 tablet in the evening. Take with meals. Do all this for 30 days. [facility] pioglitazon e 15 mg tablet 08-15 00:00: 00 08-23 00:00 :00 No [id number] 15mg Take 1 tablet by mouth in the morning for 30 days. [facility] tamsulosin 0.4 mg 24 hr capsule 08-15 00:00: 00 08-23 00:00 :00 No [id number] .4mg Take 1 capsule by mouth in the morning for 30 days. [facility] losartan 25 mg tablet 08-15 00:00: 00 08-23 00:00 :00 No [id number] 25mg Take 1 tablet by mouth in the morning for 30 days. [facility] glipiZIDE (GLUCOTROL) tablet 5 mg 08-14 21:30: 00 Yes 5mg 5 mg, Oral, BIDAC, First dose on 08/15/23 at 1630, Until Discontinu ed, Routine [facility] KCL (KLOR-CON M20) tablet 40 mEq 08-14 21:30: 00 08-14 21:21 :00 No 40meq 40 mEq, Oral, ONCE, 1 dose, On 08/15/23 at 1630, Routine [facility] pioglitazon e (ACTOS) tablet 7.5 mg 08-14 17:00: 00 08-15 12:47 :51 No 7.5mg 7.5 mg, Oral, DAILY, First dose on 08/15/23 at 1200, Until Discontinu ed, Routine [facility] tamsulosin (FLOMAX) capsule 0.4 mg 08-14 15:49: 00 Yes .4mg 0.4 mg, Oral, DAILY, First dose on 08/15/23 at 1100, Until Discontinu ed, Routine [facility] amLODIPine (NORVASC) tablet 10 mg 08-14 14:00: 00 08-14 15:51 :30 No 10mg 10 mg, Oral, DAILY, First dose on 08/15/23 at 0900, Until Discontinu ed, Routine [facility] heparin (porcine) injection 5,000 Units 08-14 03:00: 00 08-14 06:07 :44 No 5000U 5,000 Units, Subcutaneo us, Q8H, First dose on 08/14/23 at 2200, Until Discontinu ed, Routine [facility] Sliding Scale Insulin - Lispro (HumaLOG) 08-14 02:00: 00 08-14 18:06 :14 No Subcutaneo us, TID MEALS+HS, First dose on 08/14/23 at 2100, Until Discontinu ed, Routine [facility] glucagon (GLUCAGEN DIAGNOSTIC KIT) injection 1 mg 08-14 00:36: 37 Yes 1mg 1 mg, Intramuscu lar, PRN, Starting on 08/14/23 at 1936, Until Discontinu ed, HAO, Blood Glucose < or = 70 mg/dL and patient is NPO, unable to swallow or has mental changes. [facility] dextrose 50 % in water (D50W) injection 25 mL 08-14 00:36: 37 Yes 25mL 25 mL, Slow IV Push, PRN, Starting on 08/14/23 at 1936, Until Discontinu ed, HAO, Blood Glucose < or = 70 mg/dL and patient is NPO, unable to swallow or has mental status changes. [facility] acetaminoph en (TYLENOL) tablet 650 mg 08-14 00:36: 24 Yes 650mg 650 mg, Oral, Q6HPRN, Starting on 08/14/23 at 1936, Until Discontinu ed, Routine, Pain (scale 1-3) [facility] aspirin chewable tablet 324 mg 08-13 23:15: 00 08-13 22:56 :00 No [id number] 324mg 324 mg, Oral, ONCE, 1 dose, On 08/14/23 at 1815, HAO [facility] lidocaine 2% viscous (LIDOCAINE VISCOUS) 2 % solution 15 mL 08-13 23:00: 00 08-13 22:10 :00 No [id number] 15mL 15 mL, Oral, ONCE, 1 dose, On 08/14/23 at 1800, Routine [facility] KCL (KLOR-CON M20) tablet 20 mEq 08-13 22:30: 00 08-13 22:59 :00 No [id number] 20meq 20 mEq, Oral, ONCE, 1 dose, On 08/14/23 at 1730, [facility] metoprolol tartrate (LOPRESSOR) tablet 50 mg 08-13 22:00: 00 08-13 22:58 :00 No [id number] 50mg 50 mg, Oral, ONCE, 1 dose, On 08/14/23 at 1700, [facility] iopamidol (ISOVUE 370-500 mL) injection 80 mL 08-13 21:30: 00 08-13 21:45 :00 No [id number] 80mL 80 mL, Intravenou s, ONCE, 1 dose, On 08/14/23 at 1645, Routine [facility] acetaminoph en (TYLENOL) tablet 650 mg 08-13 21:15: 00 08-13 22:57 :00 No [id number] 650mg 650 mg, Oral, ONCE, 1 dose, On 08/14/23 at 1615, [facility] amLODIPine (NORVASC) tablet 5 mg 08-13 21:15: 00 08-13 22:58 :00 No [id number] 5mg 5 mg, Oral, ONCE, 1 dose, On 08/14/23 at 1615, [facility] NaCl 0.9% (NS) bolus infusion 1,000 mL 08-13 21:15: 00 08-13 21:50 :00 No [id number] 1000mL at 999 mL/hr, 1,000 mL, IV Infusion, ONCE, 1 dose, On 08/14/23 at 1615, [facility] insulin NPH (HUMULIN N) injection 9 Units 2022-04 2-30 14:00: 00 Yes 9U 9 Units, Subcutaneo us, QAM WITH BREAKFAST, First dose (after last modificati on) on Wed04/24/23 at 0800, Until Discontinu ed, Routine [facility] losartan 25 mg tablet 2022-04 00:00: 00 08-15 00:00 :00 No [id number] 25mg Take 1 tablet by mouth in the morning. [facility] tamsulosin (FLOMAX) 0.4 mg 24 hr capsule 2022-04 00:00: 00 08-15 00:00 :00 No [id number] .4mg Take 1 capsule by mouth in the morning. [facility] metFORMIN 500 mg tablet 2022-04 00:00: 00 05-23 05:59 :00 No [id number] Take 1 tablet by mouth 2 (two) times daily with meals for 7 days, THEN 2 tablets 2 (two) times daily with meals for 21 days. [facility] insulin lispro (human) (HumaLOG U-100) injection 3 Units 2022-04 23:00: 00 Yes 3U 3 Units, Subcutaneo us, TID MEALS, First dose (after last modificati on) on Wed04/23/23 at 1700, Until Discontinu ed, Routine [facility] insulin NPH (HUMULIN N) injection 5 Units 2022-04 23:00: 00 Yes 5U 5 Units, Subcutaneo us, QPM, First dose (after last modificati on) on Wed04/23/23 at 1700, Until Discontinu ed, Routine [facility] losartan (COZAAR) tablet 25 mg 2022-04 15:00: 00 Yes 25mg 25 mg, Oral, DAILY, First dose on Wed04/23/23 at 0900, Until Discontinu ed, Routine [facility] Potassium Bicarb-Citr ic Acid (EFFER-K) effervescen t tablet 40 mEq 2022-04 13:00: 00 04-23 13:33 :00 No 40meq 40 mEq, Oral, ONCE, 1 dose, On Wed04/23/23 at 0700, Routine [facility] ramelteon (ROZEREM) tablet 8 mg 2022-04 10:45: 00 04-23 10:51 :00 No 8mg 8 mg, Oral, ONCE NOW, 1 dose, On Wed04/23/23 at 0500, Routine [facility] Blood-Gluco se Meter (ACCU-CHEK GUIDE GLUCOSE METER) [facility] 2022-04 00:00: 00 Yes [id number] Use as directed [facility] lancets 33 gauge [facility] 2022-04 00:00: 00 Yes [id number] Use as directed [facility] blood sugar diagnostic (ACCU-CHEK GUIDE TEST STRIPS) strip 2022-04 00:00: 00 Yes [id number] Use as directed [facility] pioglitazon e 15 mg tablet 2022-04 00:00: 00 08-15 00:00 :00 No [id number] 7.5mg Take 0.5 tablets by mouth in the morning. [facility] acarbose 25 mg tablet 2022-04 00:00: 00 08-15 00:00 :00 No [id number] 25mg Take 1 tablet by mouth in the morning and 1 tablet at noon and 1 tablet in the evening. Take with meals. [facility] atorvastati n 80 mg tablet 2022-04 00:00: 00 05-24 05:59 :00 No [id number] 80mg Take 1 tablet by mouth at bedtime for 30 days. [facility] glipiZIDE 5 mg tablet 2022-04 00:00: 00 05-24 05:59 :00 No [id number] 5mg Take 1 tablet by mouth 2 (two) times daily before breakfast and dinner for 30 days. [facility] enoxaparin (LOVENOX) injection 40 mg 2022-04 15:00: 00 Yes 40mg 40 mg, Subcutaneo us, DAILY, First dose on Wed04/22/23 at 0900, Until Discontinu ed, Routine [facility] insulin NPH (HUMULIN N) injection 8 Units 2022-04 14:00: 00 04-23 19:10 :37 No 8U 8 Units, Subcutaneo us, QAM WITH BREAKFAST, First dose on Wed04/22/23 at 0800, Until Discontinu ed, Routine [facility] insulin NPH (HUMULIN N) injection 4 Units 2022-04 23:00: 00 04-23 19:10 :37 No 4U 4 Units, Subcutaneo us, QPM, First dose on Wed04/21/23 at 1700, Until Discontinu ed, Routine [facility] insulin lispro (human) (HumaLOG U-100) injection 2 Units 2022-04 23:00: 00 04-23 19:10 :37 No 2U 2 Units, Subcutaneo us, TID MEALS, First dose (after last modificati on) on Wed04/21/23 at 1700, Until Discontinu ed, Routine [facility] NaCl 0.9% (NS) IV infusion 250 mL 2022-04 21:15: 00 04-22 20:03 :10 No [id number] 250mL at 20 mL/hr, IV Infusion, CONTINUOUS , Starting on Wed04/21/23 at 1515, Until Wed04/22/23 at 1403, Routine
To keep vein open
[facility] perflutren lipid microsphere s (DEFINITY) injection 2 mL 2022-04 21:00: 00 04-21 20:15 :00 No [id number] 2mL 2 mL, IV Push, ONCE, 1 dose, On Wed04/21/23 at 1500, Routine [facility] atropine injection 1 mg 2022-04 21:00: 00 04-21 20:44 :00 No [id number] 1mg 1 mg, Slow IV Push, ONCE, 1 dose, On Wed04/21/23 at 1500, Routine [facility] DOBUTamine (DOBUTREX) 250 mg/250 mL RTU infusion 2022-04 20:13: 51 04-22 20:03 :10 No [id number] 5ug/kg/ min 5 mcg/kg/min ?59 kg (17.7 [...] the Dobutamine infusion. (see Adjunctive Therapy)<b r> [facility] perflutren protein-A microsphr (OPTISON) injection 3 mL 2022-04 17:15: 00 04-21 15:22 :00 No [id number] 3mL 3 mL, IV Push, ONCE, 1 dose, On Wed04/21/23 at 1115, Routine [facility] potassium chloride in water 10 mEq/100 mL RTU 10 mEq 2022-04 17:00: 00 04-21 20:59 :00 No 10meq 10 mEq, IV Piggyback, Q1H, 4 doses, First dose (after last reorder) on Wed04/21/23 at 1100, Last dose on Wed04/21/23 at 1400, Administer over 60 Minutes, 100 mL [facility] tamsulosin (FLOMAX) capsule 0.4 mg 2022-04 15:00: 00 Yes .4mg 0.4 mg, Oral, DAILY, First dose on Wed04/21/23 at 0900, Until Discontinu ed, Routine [facility] aspirin chewable tablet 81 mg 2022-04 15:00: 00 04-22 16:28 :38 No 81mg 81 mg, Oral, DAILY, First dose on Wed04/21/23 at 0900, Until Discontinu ed, Routine [facility] aspirin tablet 325 mg 2022-04 15:00: 00 04-21 06:21 :21 No 325mg 325 mg, Oral, DAILY, First dose on Wed04/21/23 at 0900, Until Discontinu ed, Routine [facility] Sliding Scale Insulin - Lispro (HumaLOG) 2022-04 14:00: 00 Yes Subcutaneo us, TID MEALS+HS, First dose on Wed04/21/23 at 0800, Until Discontinu ed, Routine [facility] magnesium sulfate in water 2 gram/50 mL (4 %) infusion 2 g 2022-04 12:30: 00 04-21 15:11 :00 No 2g 2 g, IV Piggyback, Administer over 60 Minutes, ONCE, 1 dose, On Wed04/21/23 at 0630, Routine [facility] Potassium Bicarb-Citr ic Acid (EFFER-K) effervescen t tablet 40 mEq 2022-04 12:30: 00 04-21 12:36 :00 No 40meq 40 mEq, Oral, ONCE, 1 dose, On Wed04/21/23 at 0630, Routine [facility] insulin glargine (LANTUS U-100) injection 9 Units 2022-04 07:45: 00 04-21 21:08 :08 No .15U/kg /d 9 Units (rounded from 8.745 Units = 0.15 Units/kg/d ay ?58.3 kg), Subcutaneo us, QHS, First dose (after last modificati on) on Wed04/21/23 at 0145, Until Discontinu ed, Routine [facility] atorvastati n (LIPITOR) tablet 80 mg 2022-04 06:30: 00 Yes 80mg 80 mg, Oral, QHS, First dose on Wed04/21/23 at 0030, Until Discontinu ed, Routine [facility] dextrose 50 % in water (D50W) injection 25 mL 2022-04 06:24: 50 Yes 25mL 25 mL, Slow IV Push, PRN, Starting on Wed04/21/23 at 0024, Until Discontinu ed, HAO, Blood Glucose < or = 70 mg/dL and patient is NPO, unable to swallow or has mental status changes. [facility] acetaminoph en (TYLENOL) tablet 650 mg 2022-04 05:53: 21 Yes 650mg 650 mg, Oral, Q6HPRN, Starting on Wed04/20/23 at 2353, Until Discontinu ed, Routine, Pain (scale 1-3) [facility] NaCl 0.9% (NS) bolus infusion 1,000 mL 2022-04 04:00: 00 04-21 03:45 :00 No 1000mL at 999 mL/hr, 1,000 mL, IV Infusion, ONCE, 1 dose, On Wed04/20/23 at 2200, STAT [facility] clopidogreL (PLAVIX) 300 mg tablet 300 mg 2022-04 03:30: 00 04-21 02:50 :00 No 300mg 300 mg, Oral, ONCE, 1 dose, On Wed04/20/23 at 2130, HAO [facility] HEPARIN SODIUM (PORCINE) 1,000 UNIT/ML BOLUS ACS ORDER SET 2022-04 02:45: 00 04-21 02:53 :00 No 60U/kg 3,540 Units (60 Units/kg ?59 kg), IV Push, ONCE, 1 dose, On Wed04/20/23 at 2044, HAO [facility] heparin 25,000 Units/250 mL (Premixed [...] Rang e, Dosing and Testing: &nbs p;FOR PRATT, [facility], AND [facility] ONLY &nbs p; - aPTT < 35: [...] ADJUST INITIAL BOLUS OR INITIAL INFUSION RATE.
[facility] Vital Signs Vital Name Observation Time Observation Value Comments S ource Systolic blood pressure 2023-08-24 13:02:00 150 mm[Hg] [facility] Diastolic blood pressure 2023-08-24 13:02:00 88 mm[Hg] [facility] Heart rate 2023-08-24 13:02:00 79 /min [facility] Body temperature 2023-08-24 13:02:00 36.44 Deya [facility] Respiratory rate 2023-08-24 13:02:00 14 /min [facility] Oxygen saturation in Arterial blood by Pulse oximetry 2023-08-24 13:02:00 98 /min [facility] Body weight 2023-08-24 08:43:00 58.469 kg [facility] BMI 2023-08-24 08:43:00 22.83 kg/m2 [facility] Body height 2023-08-22 04:52:00 160 cm [facility] Systolic blood pressure 2023-08-16 16:53:00 154 mm[Hg] [facility] Diastolic blood pressure 2023-08-16 16:53:00 94 mm[Hg] [facility] Heart rate 2023-08-16 16:53:00 82 /min [facility] Body temperature 2023-08-16 16:53:00 36.61 Deya [facility] Respiratory rate 2023-08-16 16:53:00 16 /min [facility] Oxygen saturation in Arterial blood by Pulse oximetry 2023-08-16 16:53:00 99 /min [facility] Body weight 2023-08-16 09:56:00 56.473 kg [facility] BMI 2023-08-16 09:56:00 22.05 kg/m2 [facility] Body height 2023-08-15 04:07:00 160 cm [facility] Systolic blood pressure 2023-04-23 18:11:00 141 mm[Hg] [facility] Diastolic blood pressure 2023-04-23 18:11:00 80 mm[Hg] [facility] Heart rate 2023-04-23 18:11:00 101 /min [facility] Body temperature 2023-04-23 18:11:00 35.89 Deya [facility] Respiratory rate 2023-04-23 18:11:00 18 /min [facility] Oxygen saturation in Arterial blood by Pulse oximetry 2023-04-23 18:11:00 98 /min [facility] Body weight 2023-04-22 09:57:00 57.561 kg [facility] BMI 2023-04-22 09:57:00 22.48 kg/m2 [facility] Body height 2023-04-21 20:00:00 160 cm [facility] Procedures Procedure Date / Time Performed Performing Clinician Source POCT GLUCOSE (AUTOMATED) 2023-08-24 16:13:00 Jami Banda [facility] POCT GLUCOSE (AUTOMATED) 2023-08-24 12:34:00 Jami Banda [facility] BASIC METABOLIC PANEL (NA, K, CL, CO2, GLUCOSE, BUN, CREATININE, CA) 2023-08-24 08:42:00 Jerry Fields [facility] CBC WITH DIFF 2023-08-24 08:42:00 Jerry Fields [facility] POCT GLUCOSE (AUTOMATED) 2023-08-24 05:46:00 Jami Banda [facility] BASIC METABOLIC PANEL (NA, K, CL, CO2, GLUCOSE, BUN, CREATININE, CA) 2023-08-24 01:37:00 Jerry Fields [facility] POCT GLUCOSE (AUTOMATED) 2023-08-24 01:27:00 Jami Banda [facility] POCT GLUCOSE (AUTOMATED) 2023-08-23 21:29:00 Jami Banda [facility] BASIC METABOLIC PANEL (NA, K, CL, CO2, GLUCOSE, BUN, CREATININE, CA) 2023-08-23 17:41:00 Jerry Fields [facility] POCT GLUCOSE (AUTOMATED) 2023-08-23 16:42:00 Jami Banda [facility] POCT GLUCOSE (AUTOMATED) 2023-08-23 12:36:00 Jami Banda [facility] POCT GLUCOSE (AUTOMATED) 2023-08-23 09:09:00 Jami Banda [facility] MAGNESIUM 2023-08-23 08:23:00 Jerry Fields [facility] BASIC METABOLIC PANEL (NA, K, CL, CO2, GLUCOSE, BUN, CREATININE, CA) 2023-08-23 08:23:00 Jerry Fields [facility] CBC WITH DIFF 2023-08-23 08:23:00 Jerry Fields [facility] POCT GLUCOSE (AUTOMATED) 2023-08-23 04:52:00 Jami Banda [facility] POCT GLUCOSE (AUTOMATED) 2023-08-23 00:42:00 Jami Banda [facility] BASIC METABOLIC PANEL (NA, K, CL, CO2, GLUCOSE, BUN, CREATININE, CA) 2023-08-23 00:38:00 Jerry Fields [facility] POCT GLUCOSE (AUTOMATED) 2023-08-22 21:18:00 Jami Banda [facility] URIC ACID 2023-08-22 19:21:00 Alyssa Cain [facility] PROTEIN CREAT RATIO URINE RANDOM 2023-08-22 19:21:00 Alyssa Cain [facility] CORTISOL AM 2023-08-22 19:20:00 Alyssa Cain [facility] BASIC METABOLIC PANEL (NA, K, CL, CO2, GLUCOSE, BUN, CREATININE, CA) 2023-08-22 13:21:00 Lyubov Banda [facility] LACTIC ACID WHOLE BLOOD 2023-08-22 09:16:00 Loreta Banda mmad [facility] MAGNESIUM 2023-08-22 08:30:00 Lyubov Banda [facility] TROPONIN I 2023-08-22 08:30:00 Lyubov Banda [facility] CBC WITH DIFF 2023-08-22 08:30:00 [facility] 2023-08-22 08:30:00 Lyubov Banda [facility] PHOSPHORUS 2023-08-22 04:01:00 Lyubov Banda [facility] BASIC METABOLIC PANEL (NA, K, CL, CO2, GLUCOSE, BUN, CREATININE, CA) 2023-08-22 04:01:00 Cosme Cardona [facility] URINALYSIS 2023-08-22 01:52:00 Cosme Cardona [facility] CT ABDOMEN PELVIS WO CONTRAST 2023-08-22 01:26:17 Cosme Cardona [facility] CREATINE KINASE 2023-08-22 01:24:00 Lyubov Banda [facility] LIPASE 2023-08-22 01:24:00 [facility] COMP. METABOLIC PANEL ([id number]) 2023-08-22 01:24:00 Singer [facility] CBC WITH DIFF 2023-08-22 01:24:00 Cardona, [facility] POCT GLUCOSE (AUTOMATED) 2023-08-16 21:51:[address] [facility] POCT GLUCOSE (AUTOMATED) 2023-08-16 16:54:[address] [facility] POCT GLUCOSE (AUTOMATED) 2023-08-16 12:45:[address] [facility] POCT GLUCOSE (AUTOMATED) 2023-08-16 02:06:[address] [facility] POCT GLUCOSE (AUTOMATED) 2023-08-15 21:29:[address] [facility] POCT GLUCOSE (AUTOMATED) 2023-08-15 16:39:[address] [facility] POCT GLUCOSE (AUTOMATED) 2023-08-15 13:08:[address] [facility] TROPONIN I 2023-08-15 10:41:00 [facility] (NA, K, CL, CO2, GLUCOSE, BUN, CREATININE, CA) 2023-08-15 10:41:00 [facility] 2023-08-15 10:41:00 [facility] PROSTATIC SPECIFIC ANTIGEN 2023-08-15 05:32:00 [facility] TROPONIN I 2023-08-15 05:32:00 [facility] PO[facility] ([facility]OMATED) 2023-08-15 04:03:[address] [facility] URINALYSIS 2023 22:15:00 Umang Reynaga [facility] XR CHEST 1 VW 2023 21:46:00 Umang Reynaga [facility] CT ABDOMEN PELVIS W CONTRAST 2023 21:34:[address] [facility] [address] TRAUMA HEAD WO CONTRAST 2023 21:33:20 Umang Reynaga [facility] HB ECG ROUTINE & RHYTHM STRIP 2023 21:10:12 Rosmery [facility] PHOSPHORUS 2023 20:47:00 Rosmery [facility] CREATINE KINASE 2023 20:47:00 Umang [facility] LIPASE 2023 20:47:00 Rosmery [facility] MAGNESIUM 2023 20:47:00 Rosmery [facility] BETA HYDROXY-BUTYRATE 2023 20:47:00 Farida Reynaga [facility] TROPONIN I 2023 20:47:00 [facility] COMP. METABOLIC PANEL ([id number]) 2023 20:47:00 Rosmery [facility] CBC WITH DIFF 2023 20:47:00 Umang Reynaga [facility] GLYCOSYLATED HEMOGLOBIN (A1C) 2023 20:47:00 Jerry Fields [facility] N-TERMINAL PRO-BNP 2023 20:47:00 Michael Reynaga [facility] ACUTE CARE VENOUS BLOOD GAS 2023 20:46:00 Rosmery [facility] LACTIC ACID WHOLE BLOOD 2023 20:46:00 Kian Reynaga [facility] POCT GLUCOSE(AGE >30DAYS) 2023 20:26:00 Rosmery [facility] POCT GLUCOSE (AUTOMATED) 2023 20:23:00 Rosmery [facility] POCT GLUCOSE (AUTOMATED) 2023-04-23 18:09:00 Brien Banda [facility] POCT GLUCOSE (AUTOMATED) 2023-04-23 15:32:00 Brien Banda [facility] MAGNESIUM 2023-04-23 09:09:00 Chet Echavarria [facility] BASIC METABOLIC PANEL (NA, K, CL, CO2, GLUCOSE, BUN, CREATININE, CA) 2023-04-23 09:09:00 Chet Echavarria [facility] POCT GLUCOSE (AUTOMATED) 2023-04-23 02:56:00 Brine Banda [facility] POCT GLUCOSE (AUTOMATED) 2023-04-23 00:32:00 [facility] 2023-04-22 22:43:00 Solo [facility] POCT GLUCOSE (AUTOMATED) 2023-04-22 20:36:00 Solo [facility] POCT GLUCOSE (AUTOMATED) 2023-04-22 17:44:00 Solo [facility] POCT GLUCOSE (AUTOMATED) 2023-04-22 13:41:00 Solo [facility] MAGNESIUM 2023-04-22 10:37:00 Aaliyah Farnsworth [facility] BASIC METABOLIC PANEL (NA, K, CL, CO2, GLUCOSE, BUN, CREATININE, CA) 2023-04-22 10:37:00 Aaliyah Farnsworth [facility] CBC WITH DIFF 2023-04-22 10:37:00 Aaliyah Farnsworth [facility] POCT GLUCOSE (AUTOMATED) 2023-04-22 03:32:00 Solo [facility] POCT GLUCOSE (AUTOMATED) 2023-04-22 01:34:00 Brien Banda [facility] COMPLETE ECHOCARDIOGRAM DOBUTAMINE STRESS TEST W CONTRAST 2023-04-21 21:15:00 Jeanine Montana [facility] POCT GLUCOSE (AUTOMATED) 2023-04-21 17:36:00 Solo [facility] ACTIVATED PARTIAL THRMPLAS JERMAINE 2023-04-21 16:47:00 Sergio Aponte [facility] TRANSTHORACIC ECHO (TTE) COMPLETE W/ CONTRAST 2023-04-21 15:26:00 Kylie Fuchs [facility] TROPONIN I 2023-04-21 12:39:00 Víctor Fuchs Noel [facility] POCT GLUCOSE (AUTOMATED) 2023-04-21 09:39:00 Banda Brienrey crocker [facility] MAGNESIUM 2023-04-21 09:10:00 Víctor Fuchs Noel [facility] BASIC METABOLIC PANEL (NA, K, CL, CO2, GLUCOSE, BUN, CREATININE, CA) 2023-04-21 09:10:00 Denzel Fuchshammad [facility] LIPID PANEL ([id number])(TOTAL CHOLESTEROL, TRIGLYCERIDES, HDL) 2023-04-21 09:10:00 Denzel Fuchshammad Noel [facility] CBC WITH DIFF 2023-04-21 09:10:00 Víctor Fuchs denveryue [facility] ACTIVATED PARTIAL THRMPLAS JERMAINE 2023-04-21 09:10:00 Sergio Aponte [facility] XR CHEST 1 VW 2023-04-21 06:53:47 Víctor Fuchs denveryue [facility] TROPONIN I 2023-04-21 06:32:00 Víctor Fuchs denveryue [facility] IRON PANEL 2023-04-21 06:32:00 Víctor Fuchs denveryue [facility] N-TERMINAL PRO-BNP 2023-04-21 06:32:00 Tavia Fuchsmad [facility] CRITICAL CARE 2023-04-21 02:54:15 Sergio Aponte [facility] PROTHROMBIN TIME / INR 2023-04-21 02:44:00 Enrique Aponte [facility] ACTIVATED PARTIAL THRMPLAS JERMAINE 2023-04-21 02:44:00 Sergio Aponte [facility] URINALYSIS 2023-04-21 02:33:00 [facility]AT RATIO URINE RANDOM 2023-04-21 02:33:00 Denzel Fuchshammad [facility] URINE DRUG (IMMUNOASSAY) - COMPREHENSIVE DRUG SCREEN W/O REFLEX 2023-04-21 02:33:00 Sergio Aponte [facility] PHOSPHORUS 2023-04-21 01:55:00 Víctor Fuchs [facility] FERRITIN SERUM 2023-04-21 01:55:00 Víctor Fuchs Noel [facility] TROPONIN I 2023-04-21 01:55:00 [facility] THYROID STIMULATING HORMONE 2023-04-21 01:55:00 Kylie Fuchs Noel [facility] COMP. METABOLIC PANEL (91992) 2023-04-21 01:55:00 Sergio Aponte [facility] ETHANOL 2023-04-21 01:55:00 [facility] CBC WITH DIFF 2023-04-21 01:55:00 Sergio Aponte [facility] GLYCOSYLATED HEMOGLOBIN (A1C) 2023-04-21 01:55:00 Kylie Fuchs [facility] POCT GLUCOSE (AUTOMATED) 2023-04-21 01:54:00 Yue Aponte [facility] EKG-12 LEAD 2023-04-21 01:51:41 Bret Banda [facility] Encounters Start Date/Time End Date/Time Encounter Type Admission Type Attending Clinicians Care Facility Care Department Encounter ID Source 2023-08-21 19:47:00 2023-08-24 16:32:00 Hospital Encounter Cosme Cardona [facility] 1..840.114 350.1.13.10 4.2.7.2.686 [id number] [facility] 2023-08-20 00:00:00 2023-08-20 00:00:00 Patient Outreach Rosalie Irizarry [id number] 350.1.13.10 4.2.7.2.686 [id number] [facility] 2023-08-17 00:00:00 2023-08-17 00:00:00 Telephone Ricky Rivera [facility] 1.2840.114 350.1.13.10 4.2.7.2.686 [id number] [facility] 2023 14:42:00 2023-08-16 18:40:00 Hospital Encounter RosmeryUmang David [place], Jelani [facility] [id number] 350.1.13.10 4.2.7.2.686 [id number] [facility] 2023-04-27 00:00:00 2023-04-27 00:00:00 Transition of Care Dawn Jeannette SHEARCj JANIS BAEZ 1.2840.114 350.1.13.10 4.2.7.2.686 [id number] [facility] 2023-04-20 19:48:00 2023-04-23 19:54:00 Inpatient X PARVEZ MONROE [facility] [id number] [facility] 2023-04-20 19:48:00 2023-04-23 19:54:00 Hospital Encounter Sergio Aponte, Parvez Sears [facility] [id number] 350.1.13.10 4.2.7.2.686 [id number] [facility] Results Test Description Test Time Test Comments Results Result Co mments Source [facility]24 12:35:27* Test Item Value Reference Range Interpretation Comme nts POCT GLU (test code = 0047580317) 204 mg/dL 70-110 H Lab Interpretation (test cod e = 25297-9) Abnormal [facility] (NA, K, CL, CO2, GLUCOSE, BUN, CREATININE, CA)2023-08-24 09:45:39* Test Item Value Reference Range Interpretation Comme nts NA (test code = 2566379223) 133 mmol/L 135-145 L K (test code = 5979455864) 3.7 mmol/L 3.5-5.0 CL (test code = 9902328236) 98 mmol/L 98-108 CO2 TOTAL (test code = 0460668525) 27 mmol/L 23-31 AGAP (test code = 2740562587) 8 2-16 BUN (test code = 6210758253) 13 mg/dL 7-23 GLUCOSE (test code = 3960623369) 188 mg/dL 70-110 H CREATININE (test code = 2160-0) 0.63 mg/dL 0.60-1.25 CALCIUM (test code = 9776087785) 9.4 mg/dL 8.6-10.6 eGFR (test code = 07071-8) 111.6 mL/min/1.73m2 CKD-EPI eGFR (2020). Assuming creatinine has been stable day-to-day for at least three months, the eGFR indicates Category G1 (>= 90 mL/min/1.73 m2) Lab Interpretation (test code = 69694-2) Abnormal [facility] with [id number] 09:21:26* Test Item Value Reference Range Interpretation [...] g/dL 31.2-35.0 H RDW-SD (test code = 39916-2) 36.9 fL 38.5-51.6 L RDW-CV (test code = 788-0) 11.6 % 12.1-15.4 L PLT (test code = 777-3) 407 150-328 H MPV (test code = 80908-1) 9.5 fL 9.8-13.0 L NRBC/100 WBC (test code = 7442131922) 0.0 0.0-10.0 NRBC x10^3 (test code = 7708155612) See_Comment [Automated messa ge] The system which generated this result transmitted reference range: 10*3/?L. The reference range was not used to interpret this result as normal/abnormal. GRAN MAT (NEUT) % (test code = 770-8) 63.1 % IMM GRAN % (test code = 6568272979) 0.30 % LYMPH % (test code = 736-9) 21.1 % MONO % (test code = 5905-5) 8.3 % EOS % (test code = 713-8) 6.5 % BASO % (test code = 706-2) 0.7 % GRAN MAT x10^3(ANC) (test code = 1890636828) 3.71 10*3/uL 1.99-6.95 IMM GRAN x10^3 (test code = 1216266115) 0.00-0.06 LYMPH x10^3 (test code = 731-0) 1.24 10*3/uL 1.09-3.23 MONO x10^3 (test code = 742-7) 0.49 10*3/uL 0.36-1.02 EOS x10^3 (test code = 711-2) 0.38 10*3/uL 0.06-0.53 BASO x10^3 (test code = 704-7) 0.04 10*3/uL 0.01-0.09 Lab Interpretation (test code = 30747-4) Abnormal [facility])2023-08-24 05:47:46* Test Item Value Reference Range Interpretation Comme nts POCT GLU (test code = 4823574175) 126 mg/dL 70-110 H Lab Interpretation (test cod e = 92337-1) Abnormal [facility] Metabolic Panel (NA, K, CL, CO2, GLUCOSE, BUN, CREATININE, CA)2023-08-24 02:27:27* Test Item Value Reference Range Interpretation Comme nts NA (test code = 9625042697) 129 mmol/L 135-145 L K (test code = 5930128143) 3.9 mmol/L 3.5-5.0 CL (test code = 2313793500) 96 mmol/L 98-108 L CO2 TOTAL (test code = 4993261780) 29 mmol/L 23-31 AGAP (test code = 4581994237) 4 2-16 BUN (test code = 3582312063) 14 mg/dL 7-23 GLUCOSE (test code = 5810556457) 185 mg/dL 70-110 H CREATININE (test code = 2160-0) 0.56 mg/dL 0.60-1.25 L CALCIUM (test code = 8139748503) 9.2 mg/dL 8.6-10.6 eGFR (test code = 09342-7) 115.7 mL/min/1.73m2 CKD-EPI eGFR (2020). Assuming creatinine has been stable day-to-day for at least three months, the eGFR indicates Category G1 (>= 90 mL/min/1.73 m2) Lab Interpretation (test code = 90925-1) Abnormal [facility] GLUCOSE (AUTOMATED)2023-08-24 01:28:28* Test Item Value Reference Range Interpretation Comme nts POCT GLU (test code = 8518649783) 210 mg/dL 70-110 H Lab Interpretation (test cod e = 25918-3) Abnormal [facility] GLUCOSE (AUTOMATED)2023-08-23 21:30:04* Test Item Value Reference Range Interpretation Comme nts POCT GLU (test code = 7014788829) 149 mg/dL 70-110 H Lab Interpretation (test cod e = 09745-7) Abnormal [facility] GLUCOSE (AUTOMATED)2023-08-23 16:45:20* Test Item Value Reference Range Interpretation Comme nts POCT GLU (test code = 0818458530) 147 mg/dL 70-110 H Lab Interpretation (test cod e = 04552-2) Abnormal [facility] GLUCOSE (AUTOMATED)2023-08-23 12:36:56* Test Item Value Reference Range Interpretation Comme nts POCT GLU (test code = 3187785342) 131 mg/dL 70-110 H Lab Interpretation (test cod e = 82536-7) Abnormal [facility] GLUCOSE (AUTOMATED)2023-08-23 09:17:23* Test Item Value Reference Range Interpretation Comme nts POCT GLU (test code = 3860028051) 154 mg/dL 70-110 H Lab Interpretation (test cod e = 94130-9) Abnormal [facility] GLUCOSE (AUTOMATED)2023-08-23 05:03:01* Test Item Value Reference Range Interpretation Comme nts POCT GLU (test code = 7188457366) 183 mg/dL 70-110 H Lab Interpretation (test cod e = 10163-2) Abnormal [facility] Metabolic Panel (NA, K, CL, CO2, GLUCOSE, BUN, CREATININE, CA)2023-08-23 01:49:58* Test Item Value Reference Range Interpretation Comme nts NA (test code = 9600117846) 132 mmol/L 135-145 L K (test code = 2158850917) 4.1 mmol/L 3.5-5.0 CL (test code = 4517655485) 101 mmol/L 98-108 CO2 TOTAL (test code = 5919924347) 28 mmol/L 23-31 AGAP (test code = 5747459204) 3 2-16 BUN (test code = 0743151889) 17 mg/dL 7-23 GLUCOSE (test code = 4071530585) 149 mg/dL 70-110 H CREATININE (test code = 2160-0) 0.97 mg/dL 0.60-1.25 CALCIUM (test code = 7559390903) 8.4 mg/dL 8.6-10.6 L eGFR (test code = 73981-0) 91.6 mL/min/1.73m2 CKD-EPI eGFR (2020). Assuming creatinine has been stable day-to-day for at least three months, the eGFR indicates Category G1 (>= 90 mL/min/1.73 m2) Lab Interpretation (test code = 56982-1) Abnormal [facility] GLUCOSE (AUTOMATED)2023-08-23 00:43:06* Test Item Value Reference Range Interpretation Comme nts POCT GLU (test code = 1193213082) 126 mg/dL 70-110 H Lab Interpretation (test cod e = 93374-2) Abnormal [facility] CenterCortisol [id number] 22:59:03* Test Item Value Reference Range Interpretation Comme nts IBRAHIMA AM (test code = 4322546586) 24.7 ug/dL 4.5-23.0 H GINA (test code = GINA) Biotin has been reported to cause a positive bias, interpret results relative to patient's use of biotin. Lab Interpretation (test code = 45006-4) Abnormal [facility]2023-08-22 21:29:10* Test Item Value Reference Range Interpretation Comme [facility] POCT GLU (test code = 9124448780) 341 mg/dL 70-110 H Lab Interpretation (test cod e = 90702-4) Abnormal [facility] CenterUric [id number] 19:53:59* Test Item Value Reference Range Interpretation Comme nts URIC ACID (test code = 0634056342) 6.4 mg/dL 3.6-8.0 Lab Interpretation (test cod e = 73916-9) Normal [facility] (NA, K, CL, CO2, GLUCOSE, BUN, CREATININE, CA)2023-08-22 14:43:15* Test Item Value Reference Range Interpretation Comme nts NA (test code = 5824328712) 138 mmol/L 135-145 K (test code = 6984608258) 4.6 mmol/L 3.5-5.0 CL (test code = 3936319756) 102 mmol/L 98-108 CO2 TOTAL (test code = 1987506222) 28 mmol/L 23-31 AGAP (test code = 5706836765) 8 2-16 BUN (test code = 7039625260) 34 mg/dL 7-23 H GLUCOSE (test code = 9610155799) 224 mg/dL 70-110 H CREATININE (test code = 2160-0) 1.89 mg/dL 0.60-1.25 H CALCIUM (test code = 0664894101) 9.4 mg/dL 8.6-10.6 eGFR (test code = 95334-8) 41.1 mL/min/1.73m2 CKD-EPI eGFR (2020). Assuming creatinine has been stable day-to-day for at least three months, the eGFR indicates Category G3b (30 - 44 mL/min/1.73 m2) Lab Interpretation (test code = 81879-5) Abnormal [facility] CenterCreatine [id number] 14:42:45* Test Item Value Reference Range Interpretation Comme nts CK (test code = 7927188895) 224 U/L 33-194 H Lab Interpretation (test cod e = 40618-3) Abnormal [facility] CenterPhosphorus [id number] 12:10:01* Test Item Value Reference Range Interpretation Comme nts PHOSPHORUS (test code = 5528286828) 5.8 mg/dL 2.5-5.0 H Lab Interpretation (test cod e = 54699-6) Abnormal [facility] Met[facility] (NA, K, CL, CO2, GLUCOSE, BUN, CREATININE, CA)2023-08-22 04:41:19* Test Item Value Reference Range Interpretation Comme nts NA (test code = 2634703580) 124 mmol/L 135-145 L K (test code = 7162005740) 4.7 mmol/L 3.5-5.0 CL (test code = 2466949197) 93 mmol/L 98-108 L CO2 TOTAL (test code = 7050858225) 18 mmol/L 23-31 L AGAP (test code = 0034907546) 13 2-16 BUN (test code = 9007736937) 68 mg/dL 7-23 H GLUCOSE (test code = 9001254764) 116 mg/dL 70-110 H CREATININE (test code = 2160-0) 6.60 mg/dL 0.60-1.25 H CALCIUM (test code = 1259174741) 9.0 mg/dL 8.6-10.6 eGFR (test code = 30053-0) 9.2 mL/min/1.73m2 CKD-EPI eGFR (2020). Assuming creatinine has been stable day-to-day for at least three months, the eGFR indicates Category G5 (<= 14mL/min/1.73 m2) Lab Interpretation (test code = 00009-6) Abnormal [facility] PEL[facility] WO [id number] 02:22:05Exam: CT Abdomen and Pelvis without Contrast, [...] osseous finding. Subacute/chronic left-sided rib fractures.Soft tissues: Unremarkable.[facility]. Metabolic Panel (36163) 2023-08-22 02:21:33* Test Item Value Reference Range Interpretation Comme nts NA (test code = 6886188815) 120 mmol/L 135-145 L K (test code = 6269906997) 4.8 mmol/L 3.5-5.0 CL (test code = 5715808412) 85 mmol/L 98-108 L CO2 TOTAL (test code = 5135545825) 21 mmol/L 23-31 L AGAP (test code = 0519892023) 14 2-16 BUN (test code = 4941361618) 70 mg/dL 7-23 H GLUCOSE (test code = 0527905438) 97 mg/dL 70-110 CREATININE (test code = 2160-0) 8.39 mg/dL 0.60-1.25 H TOTAL BILI (test code = 6880007888) 0.7 mg/dL 0.1-1.1 CALCIUM (test code = 0370599747) 8.8 mg/dL 8.6-10.6 T PROTEIN (test code = 1843723904) 7.2 g/dL 6.3-8.2 ALBUMIN (test code = 0640956328) 4.1 g/dL 3.5-5.0 ALK PHOS (test code = 9707459764) 95 U/L 34-122 ALTv (test code = 1742-6) 12 U/L 5-50 AST(SGOT) (test code = 9064307379) 24 U/L 13-40 eGFR (test code = 46333-6) 6.9 mL/min/1.73m2 CKD-EPI eGFR (2020). Assuming creatinine has been stable day-to-day for at least three months, the eGFR indicates Category G5 (<= 14mL/min/1.73 m2) Lab Interpretation (test code = 32279-9) Abnormal [facility] Center[facility]ase2024-04-28 02:15:32* Test Item Value Reference Range Interpretation Comme nts LIPASE (test code = 0468427417) 758 U/L 0-220 H Lab Interpretation (test cod e = 00709-6) Abnormal [facility] CenterCbc with Vuia2708-27-30 01:58:31* Test Item Value Reference Range Interpretation [...] g/dL 31.2-35.0 H RDW-SD (test code = 45045-1) 36.0 fL 38.5-51.6 L RDW-CV (test code = 788-0) 11.5 % 12.1-15.4 L PLT (test code = 777-3) 312 150-328 MPV (test code = 01987-9) 9.4 fL 9.8-13.0 L NRBC/100 WBC (test code = 7146521720) 0.0 0.0-10.0 NRBC x10^3 (test code = 6474533241) See_Comment [Automated message] The system which generated this result transmitted reference range: 10*3/?L. The reference range was not used to interpret this result as normal/abnormal. GRAN MAT (NEUT) % (test code = 770-8) 82.7 % IMM GRAN % (test code = 0386192754) 0.50 % LYMPH % (test code = 736-9) 6.7 % MONO % (test code = 5905-5) 9.8 % EOS % (test code = 713-8) 0.2 % BASO % (test code = 706-2) 0.1 % GRAN MAT x10^3(ANC) (test code = 7025846398) 12.19 10*3/uL 1.99-6.95 H IMM GRAN x10^3 (test code = 5243314567) 0.08 10*3/uL 0.00-0.06 H LYMPH x10^3 (test code = 731-0) 0.99 10*3/uL 1.09-3.23 L MONO x10^3 (test code = 742-7) 1.44 10*3/uL 0.36-1.02 H EOS x10^3 (test code = 711-2) 0.03 10*3/uL 0.06-0.53 L BASO x10^3 (test code = 704-7) 0.01-0.09 Lab Interpretation (test code = 18563-9) Abnormal [facility] GLUCOSE (AUTOMATED)2023-08-16 22:02:57* Test Item Value Reference Range Interpretation Comme nts POCT GLU (test code = 0290159343) 112 mg/dL 70-110 H Lab Interpretation (test cod e = 97674-6) Abnormal [facility] GLUCOSE (AUTOMATED)2023-08-16 16:59:58* Test Item Value Reference Range Interpretation Comme nts POCT GLU (test code = 8982586029) 127 mg/dL 70-110 H Lab Interpretation (test cod e = 18835-0) Abnormal [facility] GLUCOSE (AUTOMATED)2023-08-16 12:48:23* Test Item Value Reference Range Interpretation Comme nts POCT GLU (test code = 7487702856) 175 mg/dL 70-110 H Lab Interpretation (test cod e = 03640-5) Abnormal [facility] GLUCOSE (AUTOMATED)2023-08-16 02:07:02* Test Item Value Reference Range Interpretation Comme nts POCT GLU (test code = 2634681591) 195 mg/dL 70-110 H Notified Provide r Lab Interpretation (test code = 14899-2) Abnormal [facility] GLUCOSE (AUTOMATED)2023-08-15 21:36:15* Test Item Value Reference Range Interpretation Comme nts POCT GLU (test code = 5258753592) 284 mg/dL 70-110 H Lab Interpretation (test cod e = 60309-1) Abnormal [facility] GLUCOSE (AUTOMATED)2023-08-15 16:56:02* Test Item Value Reference Range Interpretation Comme nts POCT GLU (test code = 7685065528) 74 mg/dL 70-110 Lab Interpretation (test cod e = 22467-0) Normal [facility] GLUCOSE (AUTOMATED)2023-08-15 13:12:34* Test Item Value Reference Range Interpretation Comme nts POCT GLU (test code = 7706131086) 258 mg/dL 70-110 H Lab Interpretation (test cod e = 46644-6) Abnormal [facility] GLUCOSE (AUTOMATED)2023-08-15 04:04:43* Test Item Value Reference Range Interpretation Comme nts POCT GLU (test code = 9226857214) 120 mg/dL 70-110 H Lab Interpretation (test cod e = 79786-8) [facility]normal [facility] CenterGlycosylated Hemoglobin (A1C)2023-08-15 01:17:32* Test Item Value Reference Range Interpretation Comme nts HGB A1C (test code = 4548-4) 8.9 % 4.0-5.7 H GINA (test code = GINA) Reference RangesNormal: <5.7%Prediabetes: 5.7 - 6.4%Diabetes: > 6.5% Lab Interpretation (test code = 39375-6) Abnormal [facility] CenterBeta Fcxensj-Numlmbiw2066-92-21 01:00:45* Test Item Value Reference Range Interpretation Comme nts BOH (test code = 0223999073) 0.5 mmol/L GINA (test code = GINA) Normal Ranges: ? ? Nonfasting ? Less than 0.1 mmol/L ? ? Overnight Fast ? ? ? Less than 0.4 mmol/L ? ? Fasting (1-2 weeks) ?6-8 mmol/L Test developed and characteristics determined by [facility] Laboratory Services. [facility] CenterCreatine Ebvnid8276-63-62 23:07:16* Test Item Value Reference Range Interpretation Comme nts CK (test code = 2356973690) 148 U/L 33-194 Lab Interpretation (test cod e = 06770-5) Normal [facility] CenterTROPONIN [id number] 22:18:16* Test Item Value Reference Range Interpretation Comme nts TROPONIN I (test code = 2708134528) 0.081 ng/mL <=0.034 H GINA (test code [...] of biotin. Lab Interpretation (test code = 49996-6) Abnormal [facility] CenterN-TERMINAL NGP-[id number] 22:15:55* Test Item Value Reference Range Interpretation Comme [facility] NT-proBNP (test code = 80748-6) 999 pg/mL <=125 H GINA (test code = GINA) Positive: Heart Failure Likely Lab Interpretation (test code = 89937-9) Abnormal [facility] CenterMagnesium2024-04-20 22:07:17* Test Item Value Reference Range Interpretation Comme nts MAGNESIUM (test code = 7360508113) 1.8 mg/dL 1.7-2.4 Lab Interpretation (test cod e = 04904-9) Normal [facility] CenterCOMP. METABOLIC PANEL (73076)2023 22:06:57* Test Item Value Reference Range Interpretation Comme nts NA (test code = 2679520352) 130 mmol/L 135-145 L K (test code = 5045401607) 3.4 mmol/L 3.5-5.0 L CL (test code = 8451724967) 93 mmol/L 98-108 L CO2 TOTAL (test code = 9284652621) 26 mmol/L 23-31 AGAP (test code = 4135135649) 11 2-16 BUN (test code = 0598548251) 39 mg/dL 7-23 H GLUCOSE (test code = 8969063692) 142 mg/dL 70-110 H CREATININE (test code = 2160-0) 2.40 mg/dL 0.60-1.25 H TOTAL BILI (test code = 8113081301) 1.2 mg/dL 0.1-1.1 H CALCIUM (test code = 5367031457) 9.1 mg/dL 8.6-10.6 T PROTEIN (test code = 3310098184) 7.7 g/dL 6.3-8.2 ALBUMIN (test code = 6738957718) 4.2 g/dL 3.5-5.0 ALK PHOS (test code = 2448062450) 102 U/L 34-122 ALTv (test code = 1742-6) 16 U/L 5-50 AST(SGOT) (test code = 0968080229) 26 U/L 13-40 eGFR (test code = 83246-9) 30.9 mL/min/1.73m2 CKD-EPI eGFR (2020). Assuming creatinine has been stable day-to-day for at least three months, the eGFR indicates Category G3b (30 - 44 mL/min/1.73 m2) Lab Interpretation (test code = 44254-4) Abnormal [facility] CenterPhosphorus2024-04-20 22:06:37* Test Item Value Reference Range Interpretation Comme nts PHOSPHORUS (test code = 5960307395) 4.9 mg/dL 2.5-5.0 Lab Interpretation (test cod e = 59914-7) Normal [facility] CenterLIPASE2024-04-20 22:06:17* Test Item Value Reference Range Interpretation Comme nts LIPASE (test code = 9567636795) 204 U/L 0-220 Lab Interpretation (test cod e = 91051-4) Normal [facility] CenterCB WITH [id number] 21:54:56* Test Item Value Reference Range Interpretation [...] g/dL 31.2-35.0 H RDW-SD (test code = 59100-9) 38.1 fL 38.5-51.6 L RDW-CV (test code = 788-0) 11.8 % 12.1-15.4 L PLT (test code = 777-3) 235 150-328 MPV (test code = 84055-9) 11.1 fL 9.8-13.0 NRBC/100 WBC (test code = 4058190566) 0.0 0.0-10.0 NRBC x10^3 (test code = 8831319307) See_Comment [Automated message] The system which generated this result transmitted reference range: 10*3/?L. The reference range was not used to interpret this result as normal/abnormal. GRAN MAT (NEUT) % (test code = 770-8) 80.3 % IMM GRAN % (test code = 6737936408) 0.60 % LYMPH % (test code = 736-9) 8.7 % MONO % (test code = 5905-5) 10.0 % EOS % (test code = 713-8) 0.2 % BASO % (test code = 706-2) 0.2 % GRAN MAT x10^3(ANC) (test code = 4384879468) 10.18 10*3/uL 1.99-6.95 H IMM GRAN x10^3 (test code = 4372555502) 0.07 10*3/uL 0.00-0.06 H LYMPH x10^3 (test code = 731-0) 1.11 10*3/uL 1.09-3.23 MONO x10^3 (test code = 742-7) 1.27 10*3/uL 0.36-1.02 H EOS x10^3 (test code = 711-2) 0.03 10*3/uL 0.06-0.53 L BASO x10^3 (test code = 704-7) 0.03 10*3/uL 0.01-0.09 Lab Interpretation (test code = 03956-0) Abnormal [facility] CenterXR CHEST 1 [id number] 21:49:58EXAM: XR CHEST 1 2023 4:38 PM HISTORY: 58 years-old Male with r/o infilrate . TECHNIQUE: Portable AP view of the chest. COMPARISON: 04/21/2023 FINDINGS: Lines and tubes: None. Cardiomediastinal: The cardiomediastinal silhouette is unremarkable. Lungs and pleura: The lungs are clear. No focal consolidation,pneumothorax, or pleural effusion is seen. Included osseous structures show no acuteabnormality.[facility] CenterCT ABDOMEN PELVIS W [id number] 21:45:03EXAM: CT ABDOMEN AND PELVIS WITH CONTRAST [...] change involving the spine, sacroiliac jointsand hips ispresent.[facility] CenterCT TRAUMA HEAD WO [id number] 21:38:37FULL RESULT: Examination: CT TRAUMA HEAD WO CONTRAST on 2023 4:16 PM Clinical Indication: Headache, hypertensive Comparison: None Technique: Noncontrast imaging was obtained from base to vertex.Findings: The sulci and ventricles were unremarkable. There may be subtlewhite matter microvascularischemic changes, notably in the anteriorperiventricular region, but there is no evidence for hemorrhage or otherclearly acute intracranial process.[facility] CenterLatnic Acid Whole Oultj1661-52-60 21:30:25* Test Item Value Reference Range Interpretation Comme [facility] LACTIC ACID (test code = 8423436416) 1.58 mmol/L 0.50-2.20 Lab Interpretation (test cod e = 73045-5) Normal [facility] Care Venous Blood [id number] 21:30:25 * Test Item Value Reference Range Interpretation Comme nts PH (test code = 4070726056) 7.34 7.32-7.42 PCO2 NOY (test code = 5239534255) 45 41-51 PO2 NOY (test code = 8899056732) 24 25-40 L HCO3 NOY (test code = 5468342140) 24 24-28 AC VBE(BEAKER) (test code = 9432887162) -1.9 mEq/L Lab Interpretation (test cod e = 01591-3) Abnormal [facility] GLUCOSE (AUTOMATED)2023 20:26:17* Test Item Value Reference Range Interpretation Comme nts POCT GLU (test code = 2923804285) 165 mg/dL 70-110 H Lab Interpretation (test cod e = 39259-8) Abnormal [facility] GLUCOSE(AGE >30DAYS)2023 20:26:00* Test Item Value Reference Range Interpretation Comme nts POCT Glu (age>30days) (test code = 3342) 165 mg/dL 70-110 A Lab Interpretation (test cod e = 28853-6) [facility]23 18:15:28* Test Item Value Reference Range Interpretation Comme nts POCT GLU (test code = 2324855747) 218 mg/dL 70-110 H Lab Interpretation (test cod e = 11725-8) Abnormal [facility] [place] [place] [facility]PO[facility] GLUCOSE (AUTOMATED)2023-04-23 15:35:23* Test Item Value Reference Range Interpretation Comme nts POCT GLU (test code = 3000681146) 186 mg/dL 70-110 H Lab Interpretation (test cod e = 05713-3) [facility]2023-04-23 02:57:57* Test Item Value Reference Range Interpretation Comme nts POCT GLU (test code = 9795410311) 82 mg/dL 70-110 Lab Interpretation (test cod e = 73305-5) Normal [facility] GLUCOSE (AUTOMATED)2023-04-23 00:33:51* Test Item Value Reference Range Interpretation Comme nts POCT GLU (test code = 4356457241) 181 mg/dL 70-110 H Lab Interpretation (test cod e = 75829-2) Abnormal [facility] GLUCOSE (AUTOMATED)2023-04-22 22:54:22* Test Item Value Reference Range Interpretation Comme nts POCT GLU (test code = 9386552132) 127 mg/dL 70-110 H Lab Interpretation (test cod e = 01476-9) [facility]2023-04-22 20:37:54* Test Item Value Reference Range Interpretation Comme nts POCT GLU (test code = 0671491043) 230 mg/dL 70-110 H Lab Interpretation (test cod e = 45182-7) [facility]2023-04-22 17:46:23* Test Item Value Reference Range Interpretation Comme nts POCT GLU (test code = 3591550213) 144 mg/dL 70-110 H Lab Interpretation (test cod e = 00046-0) [facility]2023-04-22 13:42:26* Test Item Value Reference Range Interpretation Comme nts POCT GLU (test code = 1862760806) 229 mg/dL 70-110 H Lab Interpretation (test cod e = 42181-2) Abnormal [facility] GLUCOSE (AUTOMATED)2023-04-22 03:33:49* Test Item Value Reference Range Interpretation Comme nts POCT GLU (test code = 8429104980) 222 mg/dL 70-110 H Lab Interpretation (test cod e = 43142-8) Abnormal [facility] GLUCOSE (AUTOMATED)2023-04-22 01:36:03* Test Item Value Reference Range Interpretation Comme nts POCT GLU (test code = 5301467265) 282 mg/dL 70-110 H Lab Interpretation (test cod e = 82959-5) Abnormal [facility] CenterEchocardiogram dobutamine stress test 2023-04-21 22:26:30* Test Item Value Reference Range Interpretation Comme nts Height (test code = 8458657519) 63 in Weight (test code = 6190913012) 130 lbs Systolic BP (test code = 2848450189) 122 mmHg Diastolic BP (test code = 8713137085) 81 mmHg Heart Rate (test code = 2030605080) 105 bpm BSA (test code = 2849487934) 1.[address] Depresion (mm) (test code = 1171471101) [address] Depression (mm) (test code = 2175906645) 0 mm Radiology Study observation (narrative) (test code = 53834-1) GINA (test code = GINA) Table formatting [...] left ventricular wall motion is globally hyperkinetic. [facility] CenterTransthoracic echo (TTE)2023-04-21 18:05:03* Test Item Value Reference Range Interpretation Comme nts Height (test code = 2525825843) 63 in Weight (test code = 8941951336) 130 lbs Systolic BP (test code = 0538587220) 114 mmHg Diastolic BP (test code = 7778724660) 75 mmHg Heart Rate (test code = 4417455701) 98 bpm BSA (test code = 8605315372) 1.61 m2 LVIDD (test code = 9267372484) 4.00 cm Left Ventricular End Diastolic Volume by Teichholz Method (test code = 6955021) 70.0 mL IVS (test code = 9309998374) 1.07 cm Interventricular Septum Diastolic Thickness by 2D (test code = 8380505) 1.07 cm LVPWD (test code = 9284080267) 1.05 cm PW (test code = 5490043108) 1.05 cm 0.6-1.1 EF(Teich) (test code = 6367587353) 62.60 % LVIDS (test code = 7794553464) 2.70 cm Left Ventricular End Systolic Volume by Teichholz Method (test code = 3106634) 26.2 mL FS (test code = 9043257369) 33 % EF - 2D (test code = 18700659) 62.60 % Ao root diam (test code = 3934753876) 3.70 cm Aortic root (test code = 6855171915) 3.7 cm Ao root annulus (test code = 5596847013) 3.7 cm LA size (test code = 5327517143) 3.2 cm LVOT diameter (test code = 8007569359) 2.08 cm LVOT area (test code = 9548309107) 3.40 cm2 MV Peak E Nima (test code = 5770968936) 48.3 cm/s E wave decelartion time (test code = 8191993891) 0.15 s MV Peak A Nima (test code = 8610229318) 74.4 cm/s E/A ratio (test code = 3376726660) 0.65 ratio MV Prop V (test code = 6626270404) 21.20 cm/s LAV(MOD-sp4) (test code = 6361773507) 35.30 mL Tapse (test code = 6275107160) 1.73 cm LVOT stroke volume (test code = 5090093567) 45.20 cm3 LVOT peak nima (test code = 8728276072) 79.0 cm/s LVOT mn grad (test code = 0822165801) 1.3 mmHg AV LVOT peak gradient (test code = 4025401949) 2.50 mmHg LVOT peak VTI (test code = 6878322931) 13.2 cm LV V1 mean (test code = 1375225154) 52.90 cm/s Ao peak nima (test code = 8544994189) 83.8 cm/s AV area peak nima (test code = 8622657745) 3.2 cm2 Ao max PG (test code = 7713600375) 2.80 mm[Hg] AV peak gradient (test code = 7308192026) 2.8 mmHg LA Volume Index (BP) (test code = 1203946299) 25.9 mL/m2 LA volume (BP) (test code = 3130482415) 41.8 mL LAV(MOD-sp2) (test code = 9771176823) 40.90 mL A4C EF (test code = 0145566334) 54.40 % EF(sp4-el) (test code = 2180047933) 55.00 % SV(MOD-sp4) (test code = 9832229168) 53.10 mL SV(sp4-el) (test code = 3797672517) 55.60 mL Radiology Study observation (narrative) (test code = 96483-7) GINA (test code = GINA) ?Left?Ventricle: Left [...] enhancing agent used. Patient exhibited sinus rhythm. [facility] GLUCOSE (AUTOMATED)2023-04-21 17:48:26* Test Item Value Reference Range Interpretation Comme nts POCT GLU (test code = 5411189485) 198 mg/dL 70-110 H Lab Interpretation (test cod e = 80242-6) Abnormal [facility] CenterXR CHEST 1 [id number] 15:12:07EXAM: XR CHEST 1 VW HISTORY: NSTEMI COMPARISON: None. FINDINGS: Small bandlike densities in the left midlung have more the appearance ofatelectasis than pneumonia. The lungs are well expanded and clearotherwise. The heart and great vessels are normal except for calcium in thearch of the aorta.[facility] GLUCOSE (AUTOMATED)2023-04-21 09:39:57* Test Item Value Reference Range Interpretation Comme nts POCT GLU (test code = 8014911129) 243 mg/dL 70-110 H Lab Interpretation (test cod e = 16617-2) Abnormal [facility] CenterFerritin Gzzjv0886-20-21 07:28:27* Test Item Value Reference Range Interpretation Comme nts FERRITIN (test code = 9647196077) 76.3 ng/mL 18.0-464.0 GINA (test code = GINA) Biotin has been reported to cause a negative bias, interpret results relative to patient's use of biotin. Lab Interpretation (test code = 88352-5) Normal [facility] CenterGlycosylated Hemoglobin (A1C)2023-04-21 07:25:47* Test Item Value Reference Range Interpretation Comme nts HGB A1C (test code = 4548-4) 12.6 % 4.0-5.7 H GINA (test code = GINA) Reference RangesNormal: <5.7%Prediabetes: 5.7 - 6.4%Diabetes: > 6.5% Lab Interpretation (test code = 15601-2) Abnormal [facility] CenterThyroid Stimulating Ctyjwam6353-10-39 07:24:07 * Test Item Value Reference Range Interpretation Comme nts TSH (test code = 5921220203) 2.56 See_Comment [Automated messa ge] The system which generated this result transmitted reference range: 0.45 - 4.70 mIU/L. The reference range was not used to interpret this result as normal/abnormal. Lab Interpretation (test code = 95169-3) Normal [facility] CenterPhosphorus2023-12-27 06:52:06* Test Item Value Reference Range Interpretation Comme nts PHOSPHORUS (test code = 4472915437) 3.2 mg/dL 2.5-5.0 Lab Interpretation (test cod e = 57421-9) Normal [facility] CenterCritical Xvqd9739-43-78 02:54:15NSergio chin MD ? ? 04/20/2023 ?8:54 PMCritical Care Performed by: Sergio Aponte, MDAuthorized by: Sergio Aponte MD ?Critical care [...] separately billable procedures and treating other patients. [facility] CenterTrmilady [id number] 02:30:18* Test Item Value Reference Range Interpretation Comme nts TROPONIN I (test code = 2030659204) 0.154 ng/mL <=0.034 H GINA (test code [...] of biotin. Lab Interpretation (test code = 91417-4) Abnormal [facility] CenterETHANOL2023-12-27 02:24:46 ALCOHOL<10mg/dL04/20/2023 8:24 PM [facility]10 Lkieogfs57-003 Toxic>100 Depression of CRITICAL CARE PARAMEDIC>400 Fatalities ReportedUnResolute Health HospitalCOMP. METABOLIC PANEL (62906)2023-04-21 02:19:15* Test Item Value Reference Range Interpretation Comme nts NA (test code = 1542961249) 129 mmol/L 135-145 L K (test code = 1684973232) 3.5 mmol/L 3.5-5.0 CL (test code = 5379697102) 94 mmol/L 98-108 L CO2 TOTAL (test code = 9138193350) 28 mmol/L 23-31 AGAP (test code = 2396748966) 7 2-16 BUN (test code = 5333859486) 26 mg/dL 7-23 H GLUCOSE (test code = 9870877698) 314 mg/dL 70-110 H CREATININE (test code = 3105620753) 0.92 mg/dL 0.60-1.25 TOTAL BILI (test code = 4447695570) 0.8 mg/dL 0.1-1.1 CALCIUM (test code = 3661256360) 8.5 mg/dL 8.6-10.6 L T PROTEIN (test code = 4822384616) 6.0 g/dL 6.3-8.2 L ALBUMIN (test code = 0904467021) 3.3 g/dL 3.5-5.0 L ALK PHOS (test code = 4085214168) 95 U/L 34-122 ALTv (test code = 1742-6) 23 U/L 5-50 AST(SGOT) (test code = 0109042744) 30 U/L 13-40 eGFR (test code = 03531-1) 98.2 mL/min/1.73m2 CKD-EPI eGFR (2020). Assuming creatinine has been stable day-to-day for at least three months, the eGFR indicates Category G1 (>= 90 mL/min/1.73 m2) Lab Interpretation (test code = 65850-0) Abnormal [facility] WITH [id number] 02:03:54* Test Item Value Reference Range Interpretation [...] g/dL 31.2-35.0 H RDW-SD (test code = 33507-8) 36.2 fL 38.5-51.6 L RDW-CV (test code = 788-0) 11.6 % 12.1-15.4 L PLT (test code = 777-3) 178 See_Comment [Automated Envivioa ge] The system which generated this result transmitted reference range: 150 - 328 10*3/?L. The reference range was not used to interpret this result as normal/abnormal. MPV (test code = 48880-3) 10.9 fL 9.8-13.0 NRBC/100 WBC (test code = 4996115983) 0.0 See_Comment [Automated Network Game Interaction ssage] The system which generated this result transmitted reference range: 0.0 - 10.0 /100 WBCs. The reference range was not used to interpret this result as normal/abnormal. NRBC x10^3 (test code = 7418942347) See_Comment [Automated Envivioa PokitDok] The system which generated this result transmitted reference range: 10*3/?L. The reference range was not used to interpret this result as normal/abnormal. GRAN MAT (NEUT) % (test code = 770-8) 81.3 % IMM GRAN % (test code = 7370472057) 0.30 % LYMPH % (test code = 736-9) 10.5 % MONO % (test code = 5905-5) 7.6 % EOS % (test code = 713-8) 0.1 % BASO % (test code = 706-2) 0.2 % GRAN MAT x10^3(ANC) (test code = 2686423731) 9.55 10*3/uL 1.99-6.95 H IMM GRAN x10^3 (test code = 7249269092) 0.04 10*3/uL 0.00-0.06 LYMPH x10^3 (test code = 731-0) 1.23 10*3/uL 1.09-3.23 MONO x10^3 (test code = 742-7) 0.89 10*3/uL 0.36-1.02 EOS x10^3 (test code = 711-2) 0.06-0.53 L BASO x10^3 (test code = 704-7) 0.01-0.09 Lab Interpretation (test code = 80445-0) Abnormal [facility] CenterPOCT GLUCOSE (AUTOMATED)2023-04-21 01:55:51* Test Item Value Reference Range Interpretation Comme [facility] POCT GLU (test code = 8103098851) 408 mg/dL 70-110 H Lab Interpretation (test cod e = 91452-8) Abnormal [facility] CenterCOMPREHENSIVE METABOLIC ILCOG3324-07-23 05:07:51* Test Item Value Reference Range Interpretation Comme [facility] GLUCOSE (test code = 2217) 224 MG/DL 70-99 H BUN (test code = 8) 22 MG/DL 6-20 H CREATININE (test code = 2214) 0.71 MG/DL 0.80-1.40 L eGFR (2020 CKD-EPI) (test code = 80125) 109 ML/MIN/1.73 >60 CALC BUN/CREAT (test code [...] RATIO 1.0-2.6 BILIRUBIN, TOTAL (test code = 7) 0.2 MG/DL See_Comment [Automated me ssage] The system which generated this result transmitted reference range: <=1.2. The reference range was not used to interpret this result as normal/abnormal. ALKALINE PHOSPHATASE (test code = 2204) 138 U/L 40-121 H AST (test code = 2218) 41 U/L 9-50 ALT (test code = 2219) 24 U/L 5-50 LIPID [id number] 05:07:51* Test Item Value Reference Range Interpretation [...] SPECIMENS. FOR MOREINFORMATION, SEE CLIENT ANNOUNCEMENT AT [email or web address] RISK RATIO LDL/HDL (test code = 2238) 1.72 RATIO <3.55 PSA, [id number] 05:07:10* Test Item Value Reference Range Interpretation Comme nts PSA, TOTAL (test code = 2606) 19.70 NG/ML See_Comment H NOTE: Methodolog y is Ashley Jasmina Electrochemiluminescence Immunoassay traceable to WHO reference standard 96/760. UNLESS OTHERWISE INDICATED, ALL TESTING PERFORMED [facility] [address] [place] [address] DECORATING INSTRUCTOR: DUSTIN COLMENARES M.D. CLIA NUMBER [id number] [place]. [id number] [Automated message] The system which generated this result transmitted reference range: <=4.00. The reference range was not used to interpret this result as normal/abnormal. HEMOGLOBIN [id number] 02:46:58* Test Item Value Reference Range Interpretation Comme nts HEMOGLOBIN A1c (test code = 97915) 11.0 % 4.2-5.6 H [employer] GUIDELINES FOR HGB A1C: [...] OR LABORATORY CONSULTATION. CBC W/AUTO DIFF WITH [id number] 02:32:39* Test Item Value Reference Range Interpretation [...] = 1065) 0.0 /100 WBC'S See_Comment [Automated Envivioa ge] The system which generated this result [...] 0.00-0.10 ABS NUCLEATED RBCS (test code = 31071) 0.00 K/UL 0.00-0.11 Consult Notes Date/Time Note [...] when jensen is moved. COMMUNICATION Primary Language: Welsh Able to Verbalize needs: Yes Vision:good; no [...] Minutes: 20 min Jesica Murphy,PT Tx License: [id number] Required Components in Determining Evaluation Level History: No personal factors or comorbidities: No (70237) 1-2 personal factors and/or comorbidities: Yes (21289) 3 or more personal factors and/ or comorbidities: No (98911) Examination of Body System(s) Addressing 1-2 elements: Yes (81365) Addressing a total of 3 or more elements: No (28608) Addressing a total of 4 or more elements: No (31095) Clinical Presentation Stable: Yes (33664) Evolving: No (91498) Unstable: No (51696) Clinical Decision Making (Complexity) Low: No (93687) Moderate: Yes (44799) High: No (46805) Jesica Murphy PT [facility] [employer] 2023-08-15 10:01:34 Associated Order(s): CONSULT CARDIOLOGY [facility] Cardiology Consult Note Patient: Saturnino Maldonado Date [...] of Onset No Significant Medical Problems Mother BETSY (myocardial infarction) Father SOCIAL HISTORY Social History [...] 650 mg, 650 mg, Oral, Q6HPRN, Jerry Fields DO dextrose 50 % in water (D50W) injection 25 mL, 25 mL, Slow IV Push, PRN, Jerry Fields DO glucagon (GLUCAGEN DIAGNOSTIC KIT) injection 1 mg, 1 mg, Intramuscular, PRN, Jerry Fields DO Sliding Scale Insulin - Lispro (HumaLOG), , Subcutaneous, TID MEALS+HS, Jerry Fields DO, 4 Units at 08/15/23 0938 REVIEW OF SYSTEMS: Comprehensive 10-system review was conducted and were negative except for what's noted in the HPI. The following systems were reviewed: Constitutional, cardiovascular, respiratory, gastrointestinal, genitourinary, musculoskeletal, neurologic, psychiatric, endocrinological, and hematological. PHYSICAL EXAMINATION: Vitals: 08/14/23 2302 08/14/23 2307 08/15/23 0257 08/15/23 0713 BP: (!) 152/88 118/75 129/78 Pulse: 81 84 80 Resp: 18 20 16 Temp: 36.5 ?C (97.7 ?F) 36.9 [...] specified complication Elevated troponins: Likely type II IN in the [...] per primary team. Last Two [facility]1C Results [facility] [facility]) Recent Labs 04/20/23195408/14/23 1547 HGBA1C [...] feel free to call our office at [phone]. I would be happy to be of further assistance for Saturnino Maldonado wellbeing. Voice recognition software has been used to create portions of this document. An attempt to proofread has been made to minimize errors. Please do not hesitate to call with any questions. Benja Rivera MD Application Development Liaison, Division of Cardiology [facility] 2023-04-21 08:46:48 Associated Order(s): CONSULT ENDOCRINOLOGY Endocrinology Consult Note Consultation requested by: Service: White team Reason for Consultation: Diabetes Date of Service: 04/21/23 HPI 57 year old male with a PMH of HTN, T2DM, Fmhx premature CAD who presented with complaints of polyuria and weakness at [facility] ER. Patient transferred to [place] for further work up. Endocrinology consulted for diabetes management Diabetes Type and year diagnosed: 2011, type 2 Diabetes complications: none Hx of DM regimen: no meds for 3 years Compliance: - BG monitoring? - Hypoglycemia hx: no Hypoglycemia unawareness? no Symptoms of hyperglycemia: polyuria Living situation and support: homeless, lives with different relatives Diabetes doctor: PCP in [place], has not seen for few years Family hx of diabetes: no HX of glucocorticoid use: no HX of transfusions or EPO in last 6 months: no PAST MEDICAL HISTORY Past Medical History: Diagnosis Date HTN (hypertension) Uncontrolled diabetes mellitus with hyperglycemia History reviewed. No pertinent surgical history. Family History Problem Relation Age of Onset No Significant Medical Problems Mother [place] (myocardial infarction) Father Social History Tobacco Use [...] complaints of polyuria and weakness at [facility] ER. Patient transferred to [place] for further work up. Endocrinology consulted for [...] pay, need NPH and Regular insulin to [place] ([employer]) -Need insulin vials, syringe needles, glucometer, test strips, lancets -Need meds to bed before discharge -Please contact Endocrine before discharge - Case discussed with Dr. Cabrera.. Austin Amaro. Endocrinology Fellow, PGY 5 GATION SYSTEM INSTALLER Associated attestation - Rita Cabrera MD - 04/22/2023 2:11 PM IRRIGATION SYSTEM INSTALLER Endocrinology Faculty Attestation: I evaluated this patient's progress on 04/21/[address] Amaro note as written and revised. I actively participated in the decision-making process. Please see the resident's note for additional details that includes pertinent addendums I made directly in the note during revision. Rita Cabrera MD Application Development Liaison Division of Endocrinology IM-ENDOCRINOLOGY,DIABET ES & METABOLISM [facility] - Health History and Physical Notes Date/Time Note Provider Source 2023-08-21 22:53:[address] [facility] Hospitalist Admission H&P Date of Service: 08/21/2023 [...] consulted. 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 was verified during stay Lyubov Banda MD [facility] 2023 22:58:21 MEDICINE [facility] ADMIT H&P Date of Service: 2023 CHIEF [...] of Onset No Significant Medical Problems Mother [place] (myocardial infarction) Father ALLERGIES No Known Allergies [...] present Code Status: Presumed Full Code T [facility] EMERGENCY PHYSICIAN STAFF [facility] 2023-04-21 00:39:12 [facility] Admit H&P PCP: Erik Louie Jr Date of Service: 04/20/2023 CHIEF COMPLAINT: Polyuria HISTORY OF PRESENT ILLNESS Saturnino Maldonado is a 57 year old male with a PMH of HTN, T2DM, Fmhx premature CAD who presented with complaints of polyuria and weakness at [facility] ER. Patient transferred to [place] for further work up. Patient reports that [...] use drugs. Family history: family history includes [place] (myocardial infarction) [...] help with resources. Plan: - Admit to [facility] - Trend Troponin to peak - [...] Internal Medicine Department PGY 2, [place] Team GATION SYSTEM INSTALLER Associated attestation - Bret Banda MD - 04/21/2023 2:47 PM IRRIGATION SYSTEM INSTALLER I reviewed patient's chart, vitals, lab work, current medications and other diagnostic studies. I saw and examined the patient today and agree with the detailed note. I actively participated in the decision-making process. Bret Banda MD Application Development Liaison Division of Cardiology [facility] Notes Date/Time Note Provider Source 2023-08-24 16:07:54 [...] Absence of falls 08/24/2023 1607 by Kalina eGorges RN Outcome: Resolved 08/24/2023 1313 by Kalina Georges RN Outcome: Adequate for discharge Kalina Georges RN [facility] 2023-08-24 13:14:04 Problem: Pain Goal: Control of [...] Absence of falls Outcome: Adequate for discharge [facility] 2023-08-23 07:12:12 Problem: Pain Goal: Control of [...] Outcome: Progressing as expected Abi Lowery RN [facility] 2023-08-22 22:07:54 Problem: Pain Goal: Control of [...] Outcome: Progressing as expected Tammy Sweeney RN [facility] 2023-08-22 08:41:53 Problem: Pain Goal: Control of [...] Outcome: Progressing as expected Mihaela Lopez RN [facility] 2023-08-22 03:26:01 Problem: Pain Goal: Control of [...] Outcome: Progressing as expected Angeline Claudio RN [facility] 2023-08-21 23:32:26 Patient admitted to [facility] 2101 for diagnosis of ELIEZER, urinary obstruction Patient agrees to admission, discussed plan of care with patient and family. Patient is awake, alert, oriented, resp reg unlabored, color appropriate for race, PIV intact No adverse reaction to medications administered while in ED Belongings with patient to unit Report to Xu VILLAGRAN Chela Reyes RN [facility] 2023-08-21 19:43:36 Pt C/O RLQ pain that started yesterday, pt states last BM 08/16/2023. Pt denies any urinary, nausea or vomiting Sydney Duff RN [facility] 2023-08-21 19:39:[address] 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 [...] bruise/bleed easily. Physical Exam: ED Triage Vitals [08/21/231944] Weight 54 kg (119 lb) Actual or [...] 0.01 - 0.09 10*3/uL COMP. METABOLIC PANEL (71301) - Abnormal NA 120 (*) 135 - [...] CONTRAST Cbc with Diff Comp. Metabolic Panel (02395) Lipase Urinalysis Basic Metabolic Panel (NA, K, [...] treatment AdmissionCare documentation entered by: Cosme Cardona [facility] [employer], 27 edition, Copyright ? 2022 [employer] All Rights Reserved. [id number]:26:32-05:00 ED COURSE ED Course as of 08/21/23 [...] Electronically signed by: Cosme Cardona DO 08/21/23 7298 [facility] 2023-08-21 19:39:00 AdmissionCare Guideline: Urologic Disease, [...] treatment AdmissionCare documentation entered by: Cosme Cardona [facility], 27th edition, Copyright ? 2022 [facility] [employer] [facility] All Rights Reserved. [id number]:26:32-05:00 [facility] 2023-08-17 08:32:29 ----- Message from Yary Renner [...] with one of us in 3-4 weeks. [facility] 2023-08-16 17:56:55 Summary: discharge transportation Discharge paperwork provided, patient stated he does not have a ride. Transportation was arranged with voucher. Discharge location: [address] [place] [address] Patient verbalized understanding. Hilary Quinones RN [facility] 2023-08-16 17:19:16 Problem: Pain Goal: Control of pain at or below patient's documented comfort goal Outcome: Resolved Goal: Reduction in pain sensation Outcome: Resolved Problem: Skin integrity Impaired (Risk or Actual) Goal: Prevention of new skin breakdown Outcome: Resolved Problem: Venous Thromboembolism, (actual or risk of) Goal: Absence of venous thromboembolism (Risk) Outcome: Resolved [facility] 2023-08-16 10:33:18 Summary: jensen Jensen discontinued without complications. Patient given lactulose PO. Patient notified to notify nurse and to leave urine/stool before flushing for nursing staff to assess. Patient verbalized understanding. [facility] 2023-08-16 00:51:24 Problem: Pain Goal: Control of pain at or below patient's documented comfort goal Outcome: Progressing as expected Goal: Reduction in pain sensation Outcome: Progressing as expected Problem: Skin integrity Impaired (Risk or Actual) Goal: Prevention of new skin breakdown Outcome: Progressing as expected Problem: Venous Thromboembolism, (actual or risk of) Goal: Absence of venous thromboembolism (Risk) Outcome: Progressing as expected [facility] 2023-08-15 19:27:06 Problem: Pain Goal: Control of pain at or below patient's documented comfort goal Outcome: Progressing as expected Goal: Reduction in pain sensation Outcome: Progressing as expected Problem: Skin integrity Impaired (Risk or Actual) Goal: Prevention of new skin breakdown Outcome: Progressing as expected Problem: Venous Thromboembolism, (actual or risk of) Goal: Absence of venous thromboembolism (Risk) Outcome: Progressing as expected [facility] Libia Johnson RN [facility] 2023 23:43:36 Problem: Pain Goal: Control of pain at or below patient's documented comfort goal Outcome: Progressing as expected Goal: Reduction in pain sensation Outcome: Progressing as expected Problem: Skin integrity Impaired (Risk or Actual) Goal: Prevention of new skin breakdown Outcome: Progressing as expected Problem: Venous Thromboembolism, (actual or risk of) Goal: Absence of venous thromboembolism (Risk) Outcome: Progressing as expected [facility] 2023 23:01:15 Patient admitted to [facility] for diagnosis of Hypertension, elevated troponin, urine retention, ELIEZER, hypokalemia. Patient agrees to admission, discussed plan of care with patient and family. Patient is awake, alert, oriented, resp reg unlabored, color appropriate for race, PIV intact No adverse reaction to medications administered while in ED Belongings with patient to unit Report to [facility] RN Josi Miller RN [facility] 2023 18:56:57 Handoff report given to Josi VILLAGRAN Nunu Fang RN [facility] 2023 14:42:29 Has been out of diabetic, BP meds since April. States he can't "afford it". Struggling with constipation for "several days". He called EMS today for excessive fatigue and worsening hypertension. He is A&Ox4 and able to ambulate. Alba Hernandez RN [facility] 2023 14:38:00 Associated Order(s): EKG-12 Lead ROUTINE ONCE Pre-Procedure Diagnose(s): Hypertension, unspecified type Post-Procedure Diagnose(s): Hypertension, unspecified type; Elevated troponin I level; Urine retention [facility] Emergency Department Note Patient Name: Saturnino Maldonado Date of : 1965 58 year old male Treatment Room: TX6/TX6 Primary Care Physician: Erik Louie Jr Patient Escorted by: Self [9] Mode of Arrival: EMS - [place] [46] EMS Treatment Prior to ED Arrival: [...] History provided by: Patient and medical records diabetes territory manager used: No Past Medical History/Immunizations: Past Medical [...] ED Events Date/Time Event User Comments 08/14/23 145 Medical Screening Begins UMANG REYNAGA MD -- 08/14/231456 First Provider Evaluation UMANG REYNAGA MD -- ED COURSE ED Course as of 08/14/23 1841 Sat 2023 1841 Discussed all the results with the patient, understands my recommendation for observation for ELIEZER, dehydration, urine retention, hypertensive urgency and elevated troponin. Patient understands and agrees with plan [CD] 1835 URINALYSIS(!) No UTI [CD] 181 CK: 148 [...] ONCE Date/Time: 2023 5:55 PM Performed by: Umnag Reynaga MD Authorized by: Umang Reynaga MD ECG interpreted by ED Physician in the absence of a tailer off: yes Previous ECG: Previous ECG: Compared to [...] Electronically signed by: Umang Reynaga MD 08/14/231851 [facility] 2023 14:38:00 AdmissionCare Guideline: Renal Failure [...] serial assessments) AdmissionCare documentation [facility] by: [facility] [employer], edition, Copyright ? 2022 [employer] All Rights Reserved. [id number]:45:18-05:[address] [facility] [employer] 2023 14:38:00 AdmissionCare Guideline: Renal Failure (Acute) [...] pediatric patients) AdmissionCare documentation entered by: [facility] [employer], edition, Copyright ? 2022 [employer] All Rights Reserved. [id number]:00:25-05:[address] [facility] [employer] 2023-04-27 15:56:14 TRANSITIONAL CARE MANAGEMENT ASSESSMENT 04/27/2023 Saturnino Maldonado [id number] Saturnino Maldonado is a 57 year old /White male was admitted on 04/20/[address] He was discharged on 04/23/23 with [...] to check in. 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 I don't want to upset him as it is anymore." When asked if his brother is going to take him to [place], patient stated, "I don't know. That will be between me and my brother." Transportation in room, wheeled patient downstairs to [facility]. A Sparks RN [facility] 2023-04-23 17:33:42 Problem: Glucose control Goal: Glucose level within specified parameters 04/23/20231732 by Valentino Whiting RN Outcome: Adequate for [...] level of care 04/23/2023 1733 by Valentino Whiting RN Outcome: Adequate for discharge 04/23/2023 1732 by Valentino Whiting, RN Outcome: Adequate for discharge 04/23/2023 1051 by Valentino Whiting, RN Outcome: Progressing as expected Problem: Pain Goal: Control of pain at or below patient's documented comfort goal 04/23/2023 1733 by Valentino Whiting, RN Outcome: [...] within specified parameters 04/23/2023 173 by Valentino Whiting, RN Outcome: Adequate for discharge 04/23/2023 173 by Valentino Whiting RN Outcome: Adequate for discharge 04/23/2023 105 by Valentino Whiting, RN Outcome: Progressing as expected Problem: Mental Status - Impaired Goal: Able to achieve maximum level of cognitive ability 04/23/2023 173 by Valentino Whiting RN Outcome: Adequate for discharge 04/23/2023 173 by Valentino Whiting RN Outcome: Adequate for discharge 04/23/2023 105 by Valentino Whiting RN Outcome: Progressing as expected A Whiting RN [facility] 2023-04-23 17:33:03 Problem: Glucose control Goal: Glucose level within specified parameters 04/23/2023 1732 by Valentino Whiting, RN Outcome: [...] Valentino Whiting RN Outcome: Progressing as expected [facility] [employer] 2023-04-23 10:51:50 Problem: Glucose control Goal: Glucose [...] of cognitive ability Outcome: Progressing as expected [facility] [employer] 2023-04-23 00:56:44 Problem: Mental Status - Impaired Goal: Able to achieve maximum level of cognitive ability Outcome: Progressing as expected [facility] 2023-04-23 00:52:07 Problem: Glucose control Goal: [...] within specified parameters Outcome: Progressing as expected [facility] 2023-04-22 08:03:00 Problem: Glucose control Goal: [...] within specified parameters Outcome: Progressing as expected [facility] 2023-04-20 23:38:56 Problem: Glucose control Goal: [...] within specified parameters Outcome: Progressing as expected [facility] 2023-04-20 21:49:51 Patient admitted to [facility] 923 for diagnosis of WEAKNESS, NSTEMI, HYPERGLYCEMIA Patient agrees to admission, discussed plan of care with patient. Patient is awake, alert, oriented, resp reg unlabored, color appropriate for race, PIV intact No adverse reaction to medications administered while in ED Belongings with patient to unit Report to MARIE VILLAGRAN REPORT GIVEN TO MEDIC FOR [facility], PT LOADED TO BE TRANSFERRED. HEPARIN INFUSING AT 700 UNITS/ HOUR. GATION SYSTEM INSTALLER Jaelyn Vargas RN [facility] 2023-04-20 21:38:11 Report called to [facility] [place], spoke with Marie VILLAGRAN. Pt awaiting EMS transfer. GATION SYSTEM INSTALLER [facility] 2023-04-20 20:59:06 [facility] ETA 45 MIN per Chen A Carrero PCT [facility] 2023-04-20 20:54:15 Associated Order(s): Critical Care Critical [...] separately billable procedures and treating other patients. [facility] 2023-04-20 20:00:00 Patient aware of UA sample needed. Unable to provide sample at this moment. Urinal at bedside. Call light within reach. 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 Per patient he was diagnosed with DM five years ago and stopped taking home meds-Metformin about three years ago. Patient c/o of being weak and increased UOP. Patient was nauseous GAS METER READER but has resolved since. [facility] 2023-04-20 19:43:00 EMERGENCY DEPARTMENT ENCOUNTER [facility] Patient Name: Saturnino Maldonado Date of : 1965 57 year old Exam Room:Room/bed info not found Primary Care Physician: No primary care provider on file. 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 Per patient he was diagnosed with DM five years ago and stopped taking home meds-Metformin about three years ago. Patient c/o of being weak and increased UOP. Patient was nauseous GAS METER READER but has resolved since. HPI History provided [...] 0.01 - 0.09 10*3/uL COMP. METABOLIC PANEL (39774) - Abnormal NA 129 (*) 135 - [...] VW CBC WITH DIFF COMP. METABOLIC PANEL (07167) URINALYSIS URINE DRUG (IMMUNOASSAY) - COMPREHENSIVE DRUG SCREEN W/O REFLEX ETHANOL POCT GLUCOSE (AUTOMATED) Troponin I Prothrombin Time / INR aPTT aPTT (for use with Heparin Infusion) Ferritin Serum Iron Panel Troponin I Thyroid Stimulating Hormone Glycosylated Hemoglobin (A1C) Phosphorus Cbc with Diff Basic Metabolic Panel (NA, K, CL, CO2, GLUCOSE, BUN, CREATININE, CA) Magnesium Lipid Panel (46928)(Total Cholesterol, Triglycerides, HDL) O2 Per Protocol Orders [...] (LIPITOR) tablet 80 mg Procedures EKG Time 195 Sinus tach [place] normal Intervals normal No acute ischemia Notes [...] cardiac catheterization. The patient was transferred to [place] for further evaluation. History, physical exam findings, [...] this patient. Sergio Aponte Jr., MD Clinical Application Development Liaison [facility] Emergency Department [employer] is used frequently and may produce errors. Promptly contact for obvious discrepancies. Sergio Aponte MD 04/21/23 0025 [facility]
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
[2024-01-30] MEDS ORDERED: ERYTHROMYCIN 3.5GM OPTH OINT ONE (19:34)
[2024-01-30 19:58] VITALS: TEMP 97.8; O2SAT 98
[2024-01-30 20:00] VITALS: BP 163/92
== END 2024-01-30 19:47 | disposition home or self-care (01) ==
LOC: ER 18:58
DX: S05.01XA Injury of conjunctiva and corneal abrasion without foreign body, right eye, initial encounter (principal)
CPT/HCPCS: 99283

== ENCOUNTER 2024-03-06 05:26 | Emergency (ER) | payer SELFPAY ==
--- OUTSIDE RECORDS SUMMARY | 2024-03-06 05:31 | XMS REPORT | Continuity of Care Document ---
Author Name Unknown Address [address] [facility] [address] [place] [address] [facility] Address [address] [facility] 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 Primary Care Physician + [phone] Cosme Cardona DO Attending Clinician [phone] Solo CHONG, Lyubov Hilton Attending Clinician [phone] Rosalie Irizarry RN Attending Clinician [phone] Miguel CHONG, Ricky KLakishaH. Attending Clinician [phone] Umang Reynaga MD Attending Clinician [phone] Jerry Fields DO Attending Clinician [phone] Vimal Quiñones MD Attending Clinician [phone] Jeannette Dawn LVN Attending Clinician + [phone] PARVEZ MONROE Attending Clinician Unavailable Sergio Aponte MD Attending Clinician [phone] Bret Banda MD Attending Clinician [phone] Parvez Monroe MD Attending Clinician [phone] Solo CHONG, Lyubov Hilton Admitting Clinician [phone] Jerry Fields DO Admitting Clinician [phone] PARVEZ MONROE Admitting Clinician Unavailable Parvez Monroe MD Admitting Clinician Problems Condition Name Condition Details Condition Category Status Onset Date Resolution Date Last Treatment Date Treating Clinician Comments Source Elevated troponin I level Elevated troponin I level Disease Active 08-14 00:00: 00 [facility] Elevated brain natriureti c peptide (BNP) level Elevated brain natriureti c peptide (BNP) level Disease Active 08-14 00:00: 00 [facility] Essential hypertensi on Essential hypertensi on Disease Active 08-14 00:00: 00 [facility] ELIEZER (acute kidney injury) ELIEZER (acute kidney injury) Disease Active 08-14 00:00: 00 [facility] Type 2 diabetes mellitus with other specified complicati on Type 2 diabetes mellitus with other specified complicati on Disease Active 08-14 00:00: 00 [facility] Hypertensi on, unspecifie d type Hypertensi on, unspecifie d type Disease Active 08-13 00:00: 00 [facility] NSTEMI (non-ST elevated myocardial infarction ) NSTEMI (non-ST elevated myocardial infarction ) Disease Active 2022-04 00:00: 00 [facility] Allergies, Adverse Reactions, Alerts Allergy Name Allergy Type Status Severity Reaction(s) Onset Date Inactive Date Treating Clinician Comments Source NO KNOWN ALLERGIE S Drug Class Active [facility] Social History Social Habit Start Date Stop Date Quantity Comments [facility] 2023-08-23 00:00:00 2023-08-23 00:00:00 [facility] Alcohol intake 2023-08-22 00:00:00 2023-08-22 00:00:00 Lifetime non-drinker (finding) [facility] Tobacco use and exposure 2023-04-21 00:00:00 2023-04-21 00:00:00 Smokeless tobacco non-user [facility] Sex Assigned At 1965 00:00:00 1965 00:00:00 [facility] Smoking Status Start Date Stop Date Source Never smoked tobacco [facility] Medications Ordered Medication Name Filled Medication Name Start Date Stop Date Current Medication? Ordering Clinician Indication Dosage Frequency Signature (SIG) Comments Components Source acarbose 25 mg tablet 08-23 00:00: 00 Yes [id number] 25mg Take 1 tablet by mouth in the morning and 1 tablet at noon and 1 tablet in the evening. Take with meals. [facility] metFORMIN 500 mg 24 hr tablet 08-23 00:00: 09-23 04:59 :00 No [id number] 500mg Take 1 tablet by mouth in the morning and 1 tablet in the evening. Take with meals. Do all this for 30 days. [facility] amLODIPine 10 mg tablet 08-23 00:00: 09-23 04:59 :00 No [id number] 10mg Take 1 tablet by mouth in the morning for 30 days. [facility] tamsulosin 0.4 mg 24 hr capsule 08-23 00:00: 09-23 04:59 :00 No [id number] .4mg Take 1 capsule by mouth in the morning for 30 days. [facility] levoFLOXaci n 500 mg tablet 08-23 00:00: 00 08-26 04:59 :00 No [id number] 500mg Take 1 tablet by mouth every 24 (twenty-fo ur) hours for 2 days. [facility] cefTRIAXone (ROCEPHIN) 1,000 mg in NaCl [...] Urine
D uration of therapy: Once (ED) [facility] D5W IV infusion 1,000 mL 08-22 15:00: 00 08-22 16:53 :22 No 1000mL at 50 mL/hr, IV Infusion, ONCE, 1 dose, On Wed08/23/23 at 1000, Routine [facility] amLODIPine (NORVASC) tablet 5 mg 08-22 14:00: 00 Yes 5mg 5 mg, Oral, DAILY, First dose on Wed08/23/23 at 0900, Until Discontinu ed, Routine [facility] D5W 0.45% NaCl (1/2NS) IV infusion 1,000 mL 08-22 02:29: 00 08-23 17:53 :57 No 1000mL at 75 mL/hr, 1,000 mL, IV Infusion, CONTINUOUS , Starting on Wed08/22/23 at 2130, Until Wed08/24/23 at 1253, Routine [facility] D5W IV infusion 1,000 mL 08-21 21:30: 00 08-22 02:27 :22 No 1000mL at 100 mL/hr, IV Infusion, CONTINUOUS , Starting on Wed08/22/23 at 1630, Until Wed08/22/23 at 2127, Routine [facility] Sliding Scale Insulin - Lispro (HumaLOG) 08-21 21:00: 00 Yes Subcutaneo us, Q4H, First dose on Wed08/22/23 at 1600, Until Discontinu ed, Routine [facility] glucagon (GLUCAGEN DIAGNOSTIC KIT) injection 1 mg 08-21 20:17: 12 Yes 1mg 1 mg, Intramuscu lar, PRN, Starting on Wed08/22/23 at 1517, Until Discontinu ed, HAO, Blood Glucose < or = 70 mg/dL and patient is NPO, unable to swallow or has mental changes. [facility] dextrose 50 % in water (D50W) injection 25 mL 08-21 20:17: 12 Yes 25mL 25 mL, Slow IV Push, PRN, Starting on Wed08/22/23 at 1517, Until Discontinu ed, HAO, Blood Glucose < or = 70 mg/dL and patient is NPO, unable to swallow or has mental status changes. [facility] D5W IV infusion 1,000 mL 08-21 17:45: 00 08-21 20:16 :11 No 1000mL at 100 mL/hr, IV Infusion, CONTINUOUS , Starting on Wed08/22/23 at 1245, Until Wed08/22/23 at 1516, Routine [facility] tamsulosin (FLOMAX) capsule 0.4 mg 08-21 14:00: 00 Yes .4mg 0.4 mg, Oral, DAILY, First dose on Wed08/22/23 at 0900, Until Discontinu ed, Routine [facility] docusate (COLACE) capsule 100 mg 08-21 13:00: 00 Yes 100mg 100 mg, Oral, BID, First dose on Wed08/22/23 at 0800, Until Discontinu ed, Routine [facility] heparin (porcine) injection 5,000 Units 08-21 13:00: 00 Yes 5000U 5,000 Units, Subcutaneo us, Q12H, First dose on Wed08/22/23 at 0800, Until Discontinu ed, Routine [facility] D5W 0.45% NaCl (1/2NS) IV infusion 1,000 mL 08-21 06:15: 00 08-21 16:44 :38 No 1000mL at 100 mL/hr, 1,000 mL, IV Infusion, CONTINUOUS , Starting on Wed08/22/23 at 0115, Until Wed08/22/23 at 1144, Routine [facility] D5W 0.45% NaCl (1/2NS) Bolus infusion 1,000 mL 08-21 06:00: 00 08-21 06:21 :00 No 1000mL at 999 mL/hr, 1,000 mL, IV Infusion, ONCE, 1 dose, On Wed08/22/23 at 0100, Routine [facility] NaCl 0.9% (NS) bolus infusion 1,000 mL 08-21 04:15: 00 08-21 05:05 :00 No 1000mL at 999 mL/hr, 1,000 mL, IV Infusion, ONCE, 1 dose, On 08/21/23 at 2315, STAT [facility] bisacodyL (DULCOLAX) tablet 10 mg 08-21 04:02: 51 Yes 10mg 10 mg, Oral, QDAILYPRN, Starting on 08/21/23 at 2302, Until Discontinu ed, Routine, Constipati on [facility] ondansetron (ZOFRAN (PF)) injection 4 mg 08-21 04:02: 17 Yes 4mg 4 mg, Slow IV Push, Q6HPRN, Starting on 08/21/23 at 2302, Until Discontinu ed, Routine, Nausea and Vomiting (N/V) [facility] FENTanyl PF (SUBLIMAZE (PF)) injection 12.5 mcg 08-21 04:02: 09 08-22 04:01 :09 No 12.5ug 12.5 mcg, Slow IV Push, Q6HPRN, Starting on 08/21/23 at 2302, Until 08/22/23 at 2301, Routine, Pain (scale 7-10), Pain (scale 4-6) [facility] acetaminoph en (TYLENOL) tablet 650 mg 08-21 04:01: 56 Yes 650mg 650 mg, Oral, Q6HPRN, Starting on 08/21/23 at 2301, Until Discontinu ed, Routine, Pain (scale 1-3) [facility] magnesium citrate solution 296 mL 08-21 01:45: 00 08-21 01:25 :00 No 296mL 296 mL, Oral, ONCE, 1 dose, On 08/21/23 at 2045, Routine [facility] amLODIPine 5 mg tablet 08-16 00:00: 00 08-23 00:00 :00 No [id number] 5mg Take 1 tablet by mouth in the morning for 30 days. [facility] lactulose (CEPHULAC) solution 45 mL 08-15 15:45: 00 08-15 15:21 :00 No 45mL 45 mL, Oral, ONCE, 1 dose, On Wed08/16/23 at 1045, Routine [facility] amLODIPine (NORVASC) tablet 5 mg 08-15 14:00: 00 Yes 5mg 5 mg, Oral, DAILY, First dose on Wed08/16/23 at 0900, Until Discontinu ed, Routine [facility] sennosides (SENOKOT) tablet 8.6 mg 08-15 14:00: 00 Yes 8.6mg 8.6 mg, Oral, DAILY, First dose on Wed08/16/23 at 0900, Until Discontinu ed, Routine [facility] losartan (COZAAR) tablet 25 mg 08-15 14:00: 00 Yes 25mg 25 mg, Oral, DAILY, First dose (after last modificati on) on Wed08/16/23 at 0900, Until Discontinu ed, Routine [facility] docusate (COLACE) capsule 100 mg 08-15 13:00: 00 Yes 100mg 100 mg, Oral, BID, First dose on Wed08/16/23 at 0800, Until Discontinu ed, Routine [facility] lactulose (CEPHULAC) solution 30 mL 08-15 10:00: 00 08-15 09:33 :00 No 30mL 30 mL, Oral, ONCE, 1 dose, On Wed08/16/23 at 0500, Routine [facility] metFORMIN 500 mg 24 hr tablet 08-15 00:00: 00 08-23 00:00 :00 No [id number] 500mg Take 1 tablet by mouth in the morning and 1 tablet in the evening. Take with meals. Do all this for 30 days. [facility] acarbose 25 mg tablet 08-15 00:00: 00 08-23 00:00 :00 No [id number] 25mg Take 1 tablet by mouth in the morning and 1 tablet at noon and 1 tablet in the evening. Take with meals. Do all this for 30 days. [facility] pioglitazon e 15 mg tablet 08-15 00:00: 00 08-23 00:00 :00 No [id number] 15mg Take 1 tablet by mouth in the morning for 30 days. [facility] tamsulosin 0.4 mg 24 hr capsule 08-15 00:00: 00 08-23 00:00 :00 No [id number] .4mg Take 1 capsule by mouth in the morning for 30 days. [facility] losartan 25 mg tablet 08-15 00:00: 00 08-23 00:00 :00 No [id number] 25mg Take 1 tablet by mouth in the morning for 30 days. [facility] glipiZIDE (GLUCOTROL) tablet 5 mg 08-14 21:30: 00 Yes 5mg 5 mg, Oral, BIDAC, First dose on 08/15/23 at 1630, Until Discontinu ed, Routine [facility] KCL (KLOR-CON M20) tablet 40 mEq 08-14 21:30: 00 08-14 21:21 :00 No 40meq 40 mEq, Oral, ONCE, 1 dose, On 08/15/23 at 1630, Routine [facility] pioglitazon e (ACTOS) tablet 7.5 mg 08-14 17:00: 00 08-15 12:47 :51 No 7.5mg 7.5 mg, Oral, DAILY, First dose on 08/15/23 at 1200, Until Discontinu ed, Routine [facility] tamsulosin (FLOMAX) capsule 0.4 mg 08-14 15:49: 00 Yes .4mg 0.4 mg, Oral, DAILY, First dose on 08/15/23 at 1100, Until Discontinu ed, Routine [facility] amLODIPine (NORVASC) tablet 10 mg 08-14 14:00: 00 08-14 15:51 :30 No 10mg 10 mg, Oral, DAILY, First dose on 08/15/23 at 0900, Until Discontinu ed, Routine [facility] heparin (porcine) injection 5,000 Units 08-14 03:00: 00 08-14 06:07 :44 No 5000U 5,000 Units, Subcutaneo us, Q8H, First dose on 08/14/23 at 2200, Until Discontinu ed, Routine [facility] Sliding Scale Insulin - Lispro (HumaLOG) 08-14 02:00: 00 08-14 18:06 :14 No Subcutaneo us, TID MEALS+HS, First dose on 08/14/23 at 2100, Until Discontinu ed, Routine [facility] glucagon (GLUCAGEN DIAGNOSTIC KIT) injection 1 mg 08-14 00:36: 37 Yes 1mg 1 mg, Intramuscu lar, PRN, Starting on 08/14/23 at 1936, Until Discontinu ed, HAO, Blood Glucose < or = 70 mg/dL and patient is NPO, unable to swallow or has mental changes. [facility] dextrose 50 % in water (D50W) injection 25 mL 08-14 00:36: 37 Yes 25mL 25 mL, Slow IV Push, PRN, Starting on 08/14/23 at 1936, Until Discontinu ed, HAO, Blood Glucose < or = 70 mg/dL and patient is NPO, unable to swallow or has mental status changes. [facility] acetaminoph en (TYLENOL) tablet 650 mg 08-14 00:36: 24 Yes 650mg 650 mg, Oral, Q6HPRN, Starting on 08/14/23 at 1936, Until Discontinu ed, Routine, Pain (scale 1-3) [facility] aspirin chewable tablet 324 mg 08-13 23:15: 00 08-13 22:56 :00 No [id number] 324mg 324 mg, Oral, ONCE, 1 dose, On 08/14/23 at 1815, HAO [facility] lidocaine 2% viscous (LIDOCAINE VISCOUS) 2 % solution 15 mL 08-13 23:00: 00 08-13 22:10 :00 No [id number] 15mL 15 mL, Oral, ONCE, 1 dose, On 08/14/23 at 1800, Routine [facility] KCL (KLOR-CON M20) tablet 20 mEq 08-13 22:30: 00 08-13 22:59 :00 No [id number] 20meq 20 mEq, Oral, ONCE, 1 dose, On 08/14/23 at 1730, [facility] metoprolol tartrate (LOPRESSOR) tablet 50 mg 08-13 22:00: 00 08-13 22:58 :00 No [id number] 50mg 50 mg, Oral, ONCE, 1 dose, On 08/14/23 at 1700, [facility] iopamidol (ISOVUE 370-500 mL) injection 80 mL 08-13 21:30: 00 08-13 21:45 :00 No [id number] 80mL 80 mL, Intravenou s, ONCE, 1 dose, On 08/14/23 at 1645, Routine [facility] acetaminoph en (TYLENOL) tablet 650 mg 08-13 21:15: 00 08-13 22:57 :00 No [id number] 650mg 650 mg, Oral, ONCE, 1 dose, On 08/14/23 at 1615, [facility] amLODIPine (NORVASC) tablet 5 mg 08-13 21:15: 00 08-13 22:58 :00 No [id number] 5mg 5 mg, Oral, ONCE, 1 dose, On 08/14/23 at 1615, [facility] NaCl 0.9% (NS) bolus infusion 1,000 mL 08-13 21:15: 00 08-13 21:50 :00 No [id number] 1000mL at 999 mL/hr, 1,000 mL, IV Infusion, ONCE, 1 dose, On 08/14/23 at 1615, [facility] insulin NPH (HUMULIN N) injection 9 Units 2022-04 2-30 14:00: 00 Yes 9U 9 Units, Subcutaneo us, QAM WITH BREAKFAST, First dose (after last modificati on) on Wed04/24/23 at 0800, Until Discontinu ed, Routine [facility] losartan 25 mg tablet 2022-04 00:00: 00 08-15 00:00 :00 No [id number] 25mg Take 1 tablet by mouth in the morning. [facility] tamsulosin (FLOMAX) 0.4 mg 24 hr capsule 2022-04 00:00: 00 08-15 00:00 :00 No [id number] .4mg Take 1 capsule by mouth in the morning. [facility] metFORMIN 500 mg tablet 2022-04 00:00: 00 05-23 05:59 :00 No [id number] Take 1 tablet by mouth 2 (two) times daily with meals for 7 days, THEN 2 tablets 2 (two) times daily with meals for 21 days. [facility] insulin lispro (human) (HumaLOG U-100) injection 3 Units 2022-04 23:00: 00 Yes 3U 3 Units, Subcutaneo us, TID MEALS, First dose (after last modificati on) on Wed04/23/23 at 1700, Until Discontinu ed, Routine [facility] insulin NPH (HUMULIN N) injection 5 Units 2022-04 23:00: 00 Yes 5U 5 Units, Subcutaneo us, QPM, First dose (after last modificati on) on Wed04/23/23 at 1700, Until Discontinu ed, Routine [facility] losartan (COZAAR) tablet 25 mg 2022-04 15:00: 00 Yes 25mg 25 mg, Oral, DAILY, First dose on Wed04/23/23 at 0900, Until Discontinu ed, Routine [facility] Potassium Bicarb-Citr ic Acid (EFFER-K) effervescen t tablet 40 mEq 2022-04 13:00: 00 04-23 13:33 :00 No 40meq 40 mEq, Oral, ONCE, 1 dose, On Wed04/23/23 at 0700, Routine [facility] ramelteon (ROZEREM) tablet 8 mg 2022-04 10:45: 00 04-23 10:51 :00 No 8mg 8 mg, Oral, ONCE NOW, 1 dose, On Wed04/23/23 at 0500, Routine [facility] Blood-Gluco se Meter (ACCU-CHEK GUIDE GLUCOSE METER) [facility] 2022-04 00:00: 00 Yes [id number] Use as directed [facility] lancets 33 gauge [facility] 2022-04 00:00: 00 Yes [id number] Use as directed [facility] blood sugar diagnostic (ACCU-CHEK GUIDE TEST STRIPS) strip 2022-04 00:00: 00 Yes [id number] Use as directed [facility] pioglitazon e 15 mg tablet 2022-04 00:00: 00 08-15 00:00 :00 No [id number] 7.5mg Take 0.5 tablets by mouth in the morning. [facility] acarbose 25 mg tablet 2022-04 00:00: 00 08-15 00:00 :00 No [id number] 25mg Take 1 tablet by mouth in the morning and 1 tablet at noon and 1 tablet in the evening. Take with meals. [facility] atorvastati n 80 mg tablet 2022-04 00:00: 00 05-24 05:59 :00 No [id number] 80mg Take 1 tablet by mouth at bedtime for 30 days. [facility] glipiZIDE 5 mg tablet 2022-04 00:00: 00 05-24 05:59 :00 No [id number] 5mg Take 1 tablet by mouth 2 (two) times daily before breakfast and dinner for 30 days. [facility] enoxaparin (LOVENOX) injection 40 mg 2022-04 15:00: 00 Yes 40mg 40 mg, Subcutaneo us, DAILY, First dose on Wed04/22/23 at 0900, Until Discontinu ed, Routine [facility] insulin NPH (HUMULIN N) injection 8 Units 2022-04 14:00: 00 04-23 19:10 :37 No 8U 8 Units, Subcutaneo us, QAM WITH BREAKFAST, First dose on Wed04/22/23 at 0800, Until Discontinu ed, Routine [facility] insulin NPH (HUMULIN N) injection 4 Units 2022-04 23:00: 00 04-23 19:10 :37 No 4U 4 Units, Subcutaneo us, QPM, First dose on Wed04/21/23 at 1700, Until Discontinu ed, [facility] lispro (human) (HumaLOG U-100) injection 2 Units 2022-04 23:00: 00 04-23 19:10 :37 No 2U 2 Units, Subcutaneo us, TID MEALS, First dose (after last modificati on) on Wed04/21/23 at 1700, Until Discontinu ed, Routine [facility] NaCl 0.9% (NS) IV infusion 250 mL 2022-04 21:15: 00 04-22 20:03 :10 No [id number] 250mL at 20 mL/hr, IV Infusion, CONTINUOUS , Starting on Wed04/21/23 at 1515, Until Wed04/22/23 at 1403, Routine
To keep vein open
[facility] perflutren lipid microsphere s (DEFINITY) injection 2 mL 2022-04 21:00: 00 04-21 20:15 :00 No [id number] 2mL 2 mL, IV Push, ONCE, 1 dose, On Wed04/21/23 at 1500, Routine [facility] atropine injection 1 mg 2022-04 21:00: 00 04-21 20:44 :00 No [id number] 1mg 1 mg, Slow IV Push, ONCE, 1 dose, On Wed04/21/23 at 1500, [facility] DOBUTamine (DOBUTREX) 250 mg/250 mL RTU infusion 2022-04 20:13: 51 04-22 20:03 :10 No [id number] 5ug/kg/ min 5 mcg/kg/min ?59 kg (17.7 [...] the Dobutamine infusion. (see Adjunctive Therapy)<b r> [facility] perflutren protein-A microsphr (OPTISON) injection 3 mL 2022-04 17:15: 00 04-21 15:22 :00 No [id number] 3mL 3 mL, IV Push, ONCE, 1 dose, On Wed04/21/23 at 1115, Routine [facility] potassium chloride in water 10 mEq/100 mL RTU 10 mEq 2022-04 17:00: 00 04-21 20:59 :00 No 10meq 10 mEq, IV Piggyback, Q1H, 4 doses, First dose (after last reorder) on Wed04/21/23 at 1100, Last dose on Wed04/21/23 at 1400, Administer over 60 Minutes, 100 mL [facility] tamsulosin (FLOMAX) capsule 0.4 mg 2022-04 15:00: 00 Yes .4mg 0.4 mg, Oral, DAILY, First dose on Wed04/21/23 at 0900, Until Discontinu ed, Routine [facility] aspirin chewable tablet 81 mg 2022-04 15:00: 00 04-22 16:28 :38 No 81mg 81 mg, Oral, DAILY, First dose on Wed04/21/23 at 0900, Until Discontinu ed, Routine [facility] aspirin tablet 325 mg 2022-04 15:00: 00 04-21 06:21 :21 No 325mg 325 mg, Oral, DAILY, First dose on Wed04/21/23 at 0900, Until Discontinu ed, Routine [facility] Sliding Scale Insulin - Lispro (HumaLOG) 2022-04 14:00: 00 Yes Subcutaneo us, TID MEALS+HS, First dose on Wed04/21/23 at 0800, Until Discontinu ed, Routine [facility] magnesium sulfate in water 2 gram/50 mL (4 %) infusion 2 g 2022-04 12:30: 00 04-21 15:11 :00 No 2g 2 g, IV Piggyback, Administer over 60 Minutes, ONCE, 1 dose, On Wed04/21/23 at 0630, Routine [facility] Potassium Bicarb-Citr ic Acid (EFFER-K) effervescen t tablet 40 mEq 2022-04 12:30: 00 04-21 12:36 :00 No 40meq 40 mEq, Oral, ONCE, 1 dose, On Wed04/21/23 at 0630, Routine [facility] insulin glargine (LANTUS U-100) injection 9 Units 2022-04 07:45: 00 04-21 21:08 :08 No .15U/kg /d 9 Units (rounded from 8.745 Units = 0.15 Units/kg/d ay ?58.3 kg), Subcutaneo us, QHS, First dose (after last modificati on) on Wed04/21/23 at 0145, Until Discontinu ed, Routine [facility] atorvastati n (LIPITOR) tablet 80 mg 2022-04 06:30: 00 Yes 80mg 80 mg, Oral, QHS, First dose on Wed04/21/23 at 0030, Until Discontinu ed, Routine [facility] dextrose 50 % in water (D50W) injection 25 mL 2022-04 06:24: 50 Yes 25mL 25 mL, Slow IV Push, PRN, Starting on Wed04/21/23 at 0024, Until Discontinu ed, HAO, Blood Glucose < or = 70 mg/dL and patient is NPO, unable to swallow or has mental status changes. [facility] acetaminoph en (TYLENOL) tablet 650 mg 2022-04 05:53: 21 Yes 650mg 650 mg, Oral, Q6HPRN, Starting on Wed04/20/23 at 2353, Until Discontinu ed, Routine, Pain (scale 1-3) [facility] NaCl 0.9% (NS) bolus infusion 1,000 mL 2022-04 04:00: 00 04-21 03:45 :00 No 1000mL at 999 mL/hr, 1,000 mL, IV Infusion, ONCE, 1 dose, On Wed04/20/23 at 2200, STAT [facility] clopidogreL (PLAVIX) 300 mg tablet 300 mg 2022-04 03:30: 00 04-21 02:50 :00 No 300mg 300 mg, Oral, ONCE, 1 dose, On Wed04/20/23 at 2130, HAO [facility] HEPARIN SODIUM (PORCINE) 1,000 UNIT/ML BOLUS ACS ORDER SET 2022-04 02:45: 00 04-21 02:53 :00 No 60U/kg 3,540 Units (60 Units/kg ?59 kg), IV Push, ONCE, 1 dose, On Wed04/20/23 at 2044, HAO [facility] heparin 25,000 Units/250 mL (Premixed Bag) [...] Rang e, Dosing and Testing: &nbs p;FOR [facility], [facility], AND [facility] ONLY &nbs p; - aPTT < 35: [...] ADJUST INITIAL BOLUS OR INITIAL INFUSION RATE.
[facility] Vital Signs Vital Name Observation Time Observation Value Comments S ource Systolic blood pressure 2023-08-24 13:02:00 150 mm[Hg] [facility] Diastolic blood pressure 2023-08-24 13:02:00 88 mm[Hg] [facility] Heart rate 2023-08-24 13:02:00 79 /min [facility] Body temperature 2023-08-24 13:02:00 36.44 Deya [facility] Respiratory rate 2023-08-24 13:02:00 14 /min [facility] Oxygen saturation in Arterial blood by Pulse oximetry 2023-08-24 13:02:00 98 /min [facility] Body weight 2023-08-24 08:43:00 58.469 kg [facility] BMI 2023-08-24 08:43:00 22.83 kg/m2 [facility] Body height 2023-08-22 04:52:00 160 cm [facility] Systolic blood pressure 2023-08-16 16:53:00 154 mm[Hg] [facility] Diastolic blood pressure 2023-08-16 16:53:00 94 mm[Hg] [facility] Heart rate 2023-08-16 16:53:00 82 /min [facility] Body temperature 2023-08-16 16:53:00 36.61 Deya [facility] Respiratory rate 2023-08-16 16:53:00 16 /min [facility] Oxygen saturation in Arterial blood by Pulse oximetry 2023-08-16 16:53:00 99 /min [facility] Body weight 2023-08-16 09:56:00 56.473 kg [facility] BMI 2023-08-16 09:56:00 22.05 kg/m2 [facility] Body height 2023-08-15 04:07:00 160 cm [facility] Systolic blood pressure 2023-04-23 18:11:00 141 mm[Hg] [facility] Diastolic blood pressure 2023-04-23 18:11:00 80 mm[Hg] [facility] Heart rate 2023-04-23 18:11:00 101 /min [facility] Body temperature 2023-04-23 18:11:00 35.89 Deya [facility] Respiratory rate 2023-04-23 18:11:00 18 /min [facility] Oxygen saturation in Arterial blood by Pulse oximetry 2023-04-23 18:11:00 98 /min [facility] Body weight 2023-04-22 09:57:00 57.561 kg [facility] BMI 2023-04-22 09:57:00 22.48 kg/m2 [facility] Body height 2023-04-21 20:00:00 160 cm [facility] Procedures Procedure Date / Time Performed Performing Clinician Source POCT GLUCOSE (AUTOMATED) 2023-08-24 16:13:00 Jami Banda [facility] POCT GLUCOSE (AUTOMATED) 2023-08-24 12:34:00 Jami Banda [facility] BASIC METABOLIC PANEL (NA, K, CL, CO2, GLUCOSE, BUN, CREATININE, CA) 2023-08-24 08:42:00 Jerry Fields [facility] CBC WITH DIFF 2023-08-24 08:42:00 Jerry Fields [facility] POCT GLUCOSE (AUTOMATED) 2023-08-24 05:46:00 Jami Banda [facility] BASIC METABOLIC PANEL (NA, K, CL, CO2, GLUCOSE, BUN, CREATININE, CA) 2023-08-24 01:37:00 Jerry Fields [facility] POCT GLUCOSE (AUTOMATED) 2023-08-24 01:27:00 Jami Banda [facility] POCT GLUCOSE (AUTOMATED) 2023-08-23 21:29:00 Jami Banda [facility] BASIC METABOLIC PANEL (NA, K, CL, CO2, GLUCOSE, BUN, CREATININE, CA) 2023-08-23 17:41:00 Jerry Fields [facility] POCT GLUCOSE (AUTOMATED) 2023-08-23 16:42:00 Jami Banda [facility] POCT GLUCOSE (AUTOMATED) 2023-08-23 12:36:00 Jami Banda [facility] POCT GLUCOSE (AUTOMATED) 2023-08-23 09:09:00 Jami Banda [facility] MAGNESIUM 2023-08-23 08:23:00 Jerry Fields [facility] BASIC METABOLIC PANEL (NA, K, CL, CO2, GLUCOSE, BUN, CREATININE, CA) 2023-08-23 08:23:00 Jerry Fields [facility] CBC WITH DIFF 2023-08-23 08:23:00 Jerry Fields [facility] POCT GLUCOSE (AUTOMATED) 2023-08-23 04:52:00 Jami Banda [facility] POCT GLUCOSE (AUTOMATED) 2023-08-23 00:42:00 Jami Banda [facility] BASIC METABOLIC PANEL (NA, K, CL, CO2, GLUCOSE, BUN, CREATININE, CA) 2023-08-23 00:38:00 Jerry Fields [facility] POCT GLUCOSE (AUTOMATED) 2023-08-22 21:18:00 Jami Banda [facility] URIC ACID 2023-08-22 19:21:00 Alyssa Cain [facility] PROTEIN CREAT RATIO URINE RANDOM 2023-08-22 19:21:00 Alyssa Cain [facility] CORTISOL AM 2023-08-22 19:20:00 Alyssa Cain [facility] BASIC METABOLIC PANEL (NA, K, CL, CO2, GLUCOSE, BUN, CREATININE, CA) 2023-08-22 13:21:00 Lyubov Banda [facility] LACTIC ACID WHOLE BLOOD 2023-08-22 09:16:00 Loreta Banda mmad [facility] MAGNESIUM 2023-08-22 08:30:00 Lyubov Banda [facility] TROPONIN I 2023-08-22 08:30:00 Lyubov Banda [facility] CBC WITH DIFF 2023-08-22 08:30:00 [facility] 2023-08-22 08:30:00 Lyubov Banda [facility] PHOSPHORUS 2023-08-22 04:01:00 Lyubov Banda [facility] BASIC METABOLIC PANEL (NA, K, CL, CO2, GLUCOSE, BUN, CREATININE, CA) 2023-08-22 04:01:00 Cosme Cardona [facility] URINALYSIS 2023-08-22 01:52:00 Cosme Cardona [facility] CT ABDOMEN PELVIS WO CONTRAST 2023-08-22 01:26:17 Cosme Cardona [facility] CREATINE KINASE 2023-08-22 01:24:00 Lyubov Banda [facility] LIPASE 2023-08-22 01:24:00 [facility] COMP. METABOLIC PANEL ([id number]) 2023-08-22 01:24:00 Singer [facility] CBC WITH DIFF 2023-08-22 01:24:00 Cardona, [facility] POCT GLUCOSE (AUTOMATED) 2023-08-16 21:51:00 Yue Fields [facility] POCT GLUCOSE (AUTOMATED) 2023-08-16 16:54:00 Yue Fields [facility] POCT GLUCOSE (AUTOMATED) 2023-08-16 12:45:00 Yue Fields [facility] POCT GLUCOSE (AUTOMATED) 2023-08-16 02:06:00 Yue Fields [facility] POCT GLUCOSE (AUTOMATED) 2023-08-15 21:29:00 Yue Fields [facility] POCT GLUCOSE (AUTOMATED) 2023-08-15 16:39:00 Yue Fields [facility] POCT GLUCOSE (AUTOMATED) 2023-08-15 13:08:00 Yue Fields [facility] TROPONIN I 2023-08-15 10:41:00 [facility]OLIC PANEL (NA, K, CL, CO2, GLUCOSE, BUN, CREATININE, CA) 2023-08-15 10:41:00 [facility] 2023-08-15 10:41:00 [facility] PROSTATIC SPECIFIC ANTIGEN 2023-08-15 05:32:00 [facility] TROPONIN I 2023-08-15 05:32:00 [facility] POCT GLUCOSE (AUTOMATED) 2023-08-15 04:03:00 Yue Fields [facility] URINALYSIS 2023 22:15:00 Umang Reynaga [facility] XR CHEST 1 VW 2023 21:46:00 Umang Reynaga [facility] CT ABDOMEN PELVIS W CONTRAST 2023 21:34:[address] [facility] [address] TRAUMA HEAD WO CONTRAST 2023 21:33:20 Umang Reynaga [facility] HB ECG ROUTINE & RHYTHM STRIP 2023 21:10:12 [facility] PHOSPHORUS 2023 20:47:00 Rosmery [facility] CREATINE KINASE 2023 20:47:00 [facility]IP[facility] 2023 20:47:00 Rosmery [facility] MAGNESIUM 2023 20:47:00 Rosmery [facility] BETA HYDROXY-BUTYRATE 2023 20:47:00 Farida Reynaga [facility] TROPONIN I 2023 20:47:00 [facility] COMP. METABOLIC PANEL (77581) 2023 20:47:00 [facility] CBC WITH DIFF 2023 20:47:00 Umang Reynaga [facility] GLYCOSYLATED HEMOGLOBIN (A1C) 2023 20:47:00 Jerry Fields [facility] N-TERMINAL PRO-BNP 2023 20:47:00 Michael Reynaga [facility] ACUTE CARE VENOUS BLOOD GAS 2023 20:46:00 [facility] LACTIC ACID WHOLE BLOOD 2023 20:46:00 Kian Reynaga [facility] POCT GLUCOSE(AGE >30DAYS) 2023 20:26:00 [facility] POCT GLUCOSE (AUTOMATED) 2023 20:23:00 [facility] POCT GLUCOSE (AUTOMATED) 2023-04-23 18:09:00 Brien Banda [facility] POCT GLUCOSE (AUTOMATED) 2023-04-23 15:32:00 Brien Banda [facility] MAGNESIUM 2023-04-23 09:09:00 Chet Echavarria [facility] BASIC METABOLIC PANEL (NA, K, CL, CO2, GLUCOSE, BUN, CREATININE, CA) 2023-04-23 09:09:00 Chet Echavarria [facility] POCT GLUCOSE (AUTOMATED) 2023-04-23 02:56:00 Brien Banda [facility] POCT GLUCOSE (AUTOMATED) 2023-04-23 00:32:00 [facility] 2023-04-22 22:43:00 Solo [facility] POCT GLUCOSE (AUTOMATED) 2023-04-22 20:36:00 Solo [facility] POCT GLUCOSE (AUTOMATED) 2023-04-22 17:44:00 Solo [facility] POCT GLUCOSE (AUTOMATED) 2023-04-22 13:41:00 Solo [facility] MAGNESIUM 2023-04-22 10:37:00 Aaliyah Farnsworth [facility] BASIC METABOLIC PANEL (NA, K, CL, CO2, GLUCOSE, BUN, CREATININE, CA) 2023-04-22 10:37:00 Aaliyah Farnsworth [facility] CBC WITH DIFF 2023-04-22 10:37:00 Aaliyah Farnsworth [facility] POCT GLUCOSE (AUTOMATED) 2023-04-22 03:32:00 Solo [facility] POCT GLUCOSE (AUTOMATED) 2023-04-22 01:34:00 Brien Banda [facility] COMPLETE ECHOCARDIOGRAM DOBUTAMINE STRESS TEST W CONTRAST 2023-04-21 21:15:00 Jeanine Montana [facility] POCT GLUCOSE (AUTOMATED) 2023-04-21 17:36:00 Solo [facility] ACTIVATED PARTIAL THRMPLAS JERMAINE 2023-04-21 16:47:00 Sergio Aponte [facility] TRANSTHORACIC ECHO (TTE) COMPLETE W/ CONTRAST 2023-04-21 15:26:00 Kylie Fuchs [facility] TROPONIN I 2023-04-21 12:39:00 Víctor Fuchs Noel [facility] POCT GLUCOSE (AUTOMATED) 2023-04-21 09:39:00 Banda Brienrey crocker [facility] MAGNESIUM 2023-04-21 09:10:00 Víctor Fuchs Noel [facility] BASIC METABOLIC PANEL (NA, K, CL, CO2, GLUCOSE, BUN, CREATININE, CA) 2023-04-21 09:10:00 Denzel Fuchshammad [facility] LIPID PANEL (47113)(TOTAL CHOLESTEROL, TRIGLYCERIDES, HDL) 2023-04-21 09:10:00 Denzel Fuchshammad Noel [facility] CBC WITH DIFF 2023-04-21 09:10:00 V[facility]ctor [facility]uchs [facility] ACTIVATED PARTIAL THRMPLAS JERMAINE 2023-04-21 09:10:00 Sergio Aponte [facility] XR CHEST 1 VW 2023-04-21 06:53:47 V[facility]ctor Fuchs [facility] TROPONIN I 2023-04-21 06:32:00 V[facility]ctor Fuchs [facility] IRON PANEL 2023-04-21 06:32:00 Víctor Fuchs [facility] N-TERMINAL PRO-BNP 2023-04-21 06:32:00 Tavia Fuchsmad [facility] CRITICAL CARE 2023-04-21 02:54:15 Sergio Aponte [facility] PROTHROMBIN TIME / INR 2023-04-21 02:44:00 Enrique Aponte [facility] ACTIVATED PARTIAL THRMPLAS JERMAINE 2023-04-21 02:44:00 Sergio Aponte [facility] URINALYSIS 2023-04-21 02:33:00 [facility] CREAT RATIO URINE RANDOM 2023-04-21 02:33:00 Denzel Fuchshammad [facility] URINE DRUG (IMMUNOASSAY) - COMPREHENSIVE DRUG SCREEN W/O REFLEX 2023-04-21 02:33:00 Sergio Aponte [facility] PHOSPHORUS 2023-04-21 01:55:00 Víctor Fuchs [facility] FERRITIN SERUM 2023-04-21 01:55:00 Víctor Fuchs Noel [facility] TROPONIN I 2023-04-21 01:55:00 [facility] THYROID STIMULATING HORMONE 2023-04-21 01:55:00 Kylie Fuchs Noel [facility] COMP. METABOLIC PANEL (36435) 2023-04-21 01:55:00 Sergio Aponte [facility] ETHANOL 2023-04-21 01:55:00 Sergio [facility]onte [facility] CBC WITH DIFF 2023-04-21 01:55:00 Sergio Aponte [facility] GLYCOSYLATED HEMOGLOBIN (A1C) 2023-04-21 01:55:00 Kylie Fuchs [facility] POCT GLUCOSE (AUTOMATED) 2023-04-21 01:54:00 Yue Aponte [facility] EKG-12 LEAD 2023-04-21 01:51:41 Bret Banda [facility] Encounters Start Date/Time End Date/Time Encounter Type Admission Type Attending Clinicians Care Facility Care Department Encounter ID Source 2023-08-21 19:47:00 2023-08-24 16:32:00 Hospital Encounter Cosme Cardona [facility]ammad [facility]. [facility] 1..840.114 350.1.13.10 4.2.7.2.686 [id number] [facility] 2023-08-20 00:00:00 2023-08-20 00:00:00 Patient Outreach Rosalie Irizarry [id number] 350.1.13.10 4.2.7.2.686 [id number] [facility] 2023-08-17 00:00:00 2023-08-17 00:00:00 Telephone Ricky Rivera [facility] [id number] 350.1.13.10 4.2.7.2.686 [id number] [facility] 2023 14:42:00 2023-08-16 18:40:00 Hospital Encounter RosmeryUmang David Oville, Jelani [facility] [id number] 350.1.13.10 4.2.7.2.686 [id number] [facility] 2023-04-27 00:00:00 2023-04-27 00:00:00 Transition of Care Dawn Jeannette SHEARCj JANIS BAEZ 1.2840.114 350.1.13.10 4.2.7.2.686 [id number] [facility] 2023-04-20 19:48:00 2023-04-23 19:54:00 Inpatient X PARVEZ [facility] [id number] [facility] 2023-04-20 19:48:00 2023-04-23 19:54:00 Hospital Encounter Sergio Aponte, Parvez Sears [facility] [id number] 350.1.13.10 4.2.7.2.686 [id number] [facility] Results Test Description Test Time Test Comments Results Result Co mments Source [facility] 12:35:27* Test Item Value Reference Range Interpretation Comme nts POCT GLU (test code = 7941112460) 204 mg/dL 70-110 H Lab Interpretation (test cod e = 08768-4) [facility] (NA, K, CL, CO2, GLUCOSE, BUN, CREATININE, CA)2023-08-24 09:45:39* Test Item Value Reference Range Interpretation Comme nts NA (test code = 1528230855) 133 mmol/L 135-145 L K (test code = 5868625369) 3.7 mmol/L 3.5-5.0 CL (test code = 9949349250) 98 mmol/L 98-108 CO2 TOTAL (test code = 2375541210) 27 mmol/L 23-31 AGAP (test code = 6813144439) 8 2-16 BUN (test code = 9813038051) 13 mg/dL 7-23 GLUCOSE (test code = 9911200482) 188 mg/dL 70-110 H CREATININE (test code = 2160-0) 0.63 mg/dL 0.60-1.25 CALCIUM (test code = 7928005487) 9.4 mg/dL 8.6-10.6 eGFR (test code = 37465-7) 111.6 mL/min/1.73m2 CKD-EPI eGFR (2020). Assuming creatinine has been stable day-to-day for at least three months, the eGFR indicates Category G1 (>= 90 mL/min/1.73 m2) Lab Interpretation (test code = 80967-8) Abnormal [facility] [id number] 09:21:26* Test Item Value Reference Range Interpretation [...] g/dL 31.2-35.0 H RDW-SD (test code = 44341-9) 36.9 fL 38.5-51.6 L RDW-CV (test code = 788-0) 11.6 % 12.1-15.4 L PLT (test code = 777-3) 407 150-328 H MPV (test code = 25352-5) 9.5 fL 9.8-13.0 L NRBC/100 WBC (test code = 4765167260) 0.0 0.0-10.0 NRBC x10^3 (test code = 3742084532) See_Comment [Automated messa ge] The system which generated this result transmitted reference range: 10*3/?L. The reference range was not used to interpret this result as normal/abnormal. GRAN MAT (NEUT) % (test code = 770-8) 63.1 % IMM GRAN % (test code = 4028387020) 0.30 % LYMPH % (test code = 736-9) 21.1 % MONO % (test code = 5905-5) 8.3 % EOS % (test code = 713-8) 6.5 % BASO % (test code = 706-2) 0.7 % GRAN MAT x10^3(ANC) (test code = 8004249041) 3.71 10*3/uL 1.99-6.95 IMM GRAN x10^3 (test code = 9471890461) 0.00-0.06 LYMPH x10^3 (test code = 731-0) 1.24 10*3/uL 1.09-3.23 MONO x10^3 (test code = 742-7) 0.49 10*3/uL 0.36-1.02 EOS x10^3 (test code = 711-2) 0.38 10*3/uL 0.06-0.53 BASO x10^3 (test code = 704-7) 0.04 10*3/uL 0.01-0.09 Lab Interpretation (test code = 55619-5) [facility]normal [facility]2023-08-24 05:47:46* Test Item Value Reference Range Interpretation Comme nts POCT GLU (test code = 3810376666) 126 mg/dL 70-110 H Lab Interpretation (test cod e = 88941-0) Abnormal [facility] Metabolic Panel (NA, K, CL, CO2, GLUCOSE, BUN, CREATININE, CA)2023-08-24 02:27:27* Test Item Value Reference Range Interpretation Comme nts NA (test code = 0145419013) 129 mmol/L 135-145 L K (test code = 5138495652) 3.9 mmol/L 3.5-5.0 CL (test code = 7548114190) 96 mmol/L 98-108 L CO2 TOTAL (test code = 2593011898) 29 mmol/L 23-31 AGAP (test code = 4051734537) 4 2-16 BUN (test code = 1228850771) 14 mg/dL 7-23 GLUCOSE (test code = 0440041054) 185 mg/dL 70-110 H CREATININE (test code = 2160-0) 0.56 mg/dL 0.60-1.25 L CALCIUM (test code = 2323523419) 9.2 mg/dL 8.6-10.6 eGFR (test code = 87616-2) 115.7 mL/min/1.73m2 CKD-EPI eGFR (2020). Assuming creatinine has been stable day-to-day for at least three months, the eGFR indicates Category G1 (>= 90 mL/min/1.73 m2) Lab Interpretation (test code = 18926-6) Abnormal [facility] GLUCOSE (AUTOMATED)2023-08-24 01:28:28* Test Item Value Reference Range Interpretation Comme nts POCT GLU (test code = 1292546446) 210 mg/dL 70-110 H Lab Interpretation (test cod e = 63638-0) Abnormal [facility] GLUCOSE (AUTOMATED)2023-08-23 21:30:04* Test Item Value Reference Range Interpretation Comme nts POCT GLU (test code = 9780430898) 149 mg/dL 70-110 H Lab Interpretation (test cod e = 10550-6) Abnormal [facility] GLUCOSE (AUTOMATED)2023-08-23 16:45:20* Test Item Value Reference Range Interpretation Comme nts POCT GLU (test code = 8196066854) 147 mg/dL 70-110 H Lab Interpretation (test cod e = 44975-3) Abnormal [facility] GLUCOSE (AUTOMATED)2023-08-23 12:36:56* Test Item Value Reference Range Interpretation Comme nts POCT GLU (test code = 8581198578) 131 mg/dL 70-110 H Lab Interpretation (test cod e = 68382-9) Abnormal [facility] GLUCOSE (AUTOMATED)2023-08-23 09:17:23* Test Item Value Reference Range Interpretation Comme nts POCT GLU (test code = 9838926737) 154 mg/dL 70-110 H Lab Interpretation (test cod e = 44064-5) Abnormal [facility] GLUCOSE (AUTOMATED)2023-08-23 05:03:01* Test Item Value Reference Range Interpretation Comme nts POCT GLU (test code = 1028935374) 183 mg/dL 70-110 H Lab Interpretation (test cod e = 73989-5) Abnormal [facility] Metabolic Panel (NA, K, CL, CO2, GLUCOSE, BUN, CREATININE, CA)2023-08-23 01:49:58* Test Item Value Reference Range Interpretation Comme nts NA (test code = 9510011463) 132 mmol/L 135-145 L K (test code = 5105662156) 4.1 mmol/L 3.5-5.0 CL (test code = 8741526383) 101 mmol/L 98-108 CO2 TOTAL (test code = 0123072983) 28 mmol/L 23-31 AGAP (test code = 8778918681) 3 2-16 BUN (test code = 5293162119) 17 mg/dL 7-23 GLUCOSE (test code = 4897307036) 149 mg/dL 70-110 H CREATININE (test code = 2160-0) 0.97 mg/dL 0.60-1.25 CALCIUM (test code = 4078273588) 8.4 mg/dL 8.6-10.6 L eGFR (test code = 51843-3) 91.6 mL/min/1.73m2 CKD-EPI eGFR (2020). Assuming creatinine has been stable day-to-day for at least three months, the eGFR indicates Category G1 (>= 90 mL/min/1.73 m2) Lab Interpretation (test code = 06136-3) Abnormal [facility] GLUCOSE (AUTOMATED)2023-08-23 00:43:06* Test Item Value Reference Range Interpretation Comme nts POCT GLU (test code = 0191052674) 126 mg/dL 70-110 H Lab Interpretation (test cod e = 33973-8) Abnormal [facility]ort[facility] [id number] 22:59:03* Test Item Value Reference Range Interpretation Comme nts IBRAHIMA AM (test code = 0823598652) 24.7 ug/dL 4.5-23.0 H GINA (test code = GINA) Biotin has been reported to cause a positive bias, interpret results relative to patient's use of biotin. Lab Interpretation (test code = 89950-9) [facility]normal [facility]2023-08-22 21:29:10* Test Item Value Reference Range Interpretation Comme [facility] POCT GLU (test code = 8732145909) 341 mg/dL 70-110 H Lab Interpretation (test cod e = 98466-5) Abnormal [facility]roe[facility]ric [id number] 19:53:59* Test Item Value Reference Range Interpretation Comme nts URIC ACID (test code = 4411930651) 6.4 mg/dL 3.6-8.0 Lab Interpretation (test cod e = 99709-0) Normal [facility] (NA, K, CL, CO2, GLUCOSE, BUN, CREATININE, CA)2023-08-22 14:43:15* Test Item Value Reference Range Interpretation Comme nts NA (test code = 7338281125) 138 mmol/L 135-145 K (test code = 9814134196) 4.6 mmol/L 3.5-5.0 CL (test code = 8707272698) 102 mmol/L 98-108 CO2 TOTAL (test code = 2725246595) 28 mmol/L 23-31 AGAP (test code = 0039255772) 8 2-16 BUN (test code = 3416689983) 34 mg/dL 7-23 H GLUCOSE (test code = 7557045239) 224 mg/dL 70-110 H CREATININE (test code = 2160-0) 1.89 mg/dL 0.60-1.25 H CALCIUM (test code = 7408177718) 9.4 mg/dL 8.6-10.6 eGFR (test code = 63491-8) 41.1 mL/min/1.73m2 CKD-EPI eGFR (2020). Assuming creatinine has been stable day-to-day for at least three months, the eGFR indicates Category G3b (30 - 44 mL/min/1.73 m2) Lab Interpretation (test code = 93859-6) Abnormal [facility] [id number] 14:42:45* Test Item Value Reference Range Interpretation Comme nts CK (test code = 0953430120) 224 U/L 33-194 H Lab Interpretation (test cod e = 88845-9) Abnormal [facility]roePhosphorus [id number] 12:10:01* Test Item Value Reference Range Interpretation Comme nts PHOSPHORUS (test code = 2427572220) 5.8 mg/dL 2.5-5.0 H Lab Interpretation (test cod e = 10318-6) Abnormal [facility] Met[facility] (NA, K, CL, CO2, GLUCOSE, BUN, CREATININE, CA)2023-08-22 04:41:19* Test Item Value Reference Range Interpretation Comme nts NA (test code = 5064520157) 124 mmol/L 135-145 L K (test code = 4505681179) 4.7 mmol/L 3.5-5.0 CL (test code = 8140257398) 93 mmol/L 98-108 L CO2 TOTAL (test code = 3046876999) 18 mmol/L 23-31 L AGAP (test code = 2879548596) 13 2-16 BUN (test code = 7759859042) 68 mg/dL 7-23 H GLUCOSE (test code = 0429872897) 116 mg/dL 70-110 H CREATININE (test code = 2160-0) 6.60 mg/dL 0.60-1.25 H CALCIUM (test code = 8594183257) 9.0 mg/dL 8.6-10.6 eGFR (test code = 24244-6) 9.2 mL/min/1.73m2 CKD-EPI eGFR (2020). Assuming creatinine has been stable day-to-day for at least three months, the eGFR indicates Category G5 (<= 14mL/min/1.73 m2) Lab Interpretation (test code = 23650-9) Abnormal [facility] PELVIS WO [id number] 02:22:05Exam: CT Abdomen and Pelvis without Contrast, [...] osseous finding. Subacute/chronic left-sided rib fractures.Soft tissues: Unremarkable.[facility]. Metabolic Panel (06540) 2023-08-22 02:21:33* Test Item Value Reference Range Interpretation Comme nts NA (test code = 0036474112) 120 mmol/L 135-145 L K (test code = 0488217348) 4.8 mmol/L 3.5-5.0 CL (test code = 0916122259) 85 mmol/L 98-108 L CO2 TOTAL (test code = 2666557391) 21 mmol/L 23-31 L AGAP (test code = 4917691617) 14 2-16 BUN (test code = 3374651013) 70 mg/dL 7-23 H GLUCOSE (test code = 4387592461) 97 mg/dL 70-110 CREATININE (test code = 2160-0) 8.39 mg/dL 0.60-1.25 H TOTAL BILI (test code = 4116162366) 0.7 mg/dL 0.1-1.1 CALCIUM (test code = 4033041199) 8.8 mg/dL 8.6-10.6 T PROTEIN (test code = 3356103551) 7.2 g/dL 6.3-8.2 ALBUMIN (test code = 0548715725) 4.1 g/dL 3.5-5.0 ALK PHOS (test code = 9735768540) 95 U/L 34-122 ALTv (test code = 1742-6) 12 U/L 5-50 AST(SGOT) (test code = 4568432489) 24 U/L 13-40 eGFR (test code = 17576-4) 6.9 mL/min/1.73m2 CKD-EPI eGFR (2020). Assuming creatinine has been stable day-to-day for at least three months, the eGFR indicates Category G5 (<= 14mL/min/1.73 m2) Lab Interpretation (test code = 13004-2) Abnormal [facility]2024-04-28 02:15:32* Test Item Value Reference Range Interpretation Comme nts LIPASE (test code = 2403381530) 758 U/L 0-220 H Lab Interpretation (test cod e = 68783-6) Abnormal [facility] with [id number] 01:58:31* Test Item Value Reference Range Interpretation [...] g/dL 31.2-35.0 H RDW-SD (test code = 75088-5) 36.0 fL 38.5-51.6 L RDW-CV (test code = 788-0) 11.5 % 12.1-15.4 L PLT (test code = 777-3) 312 150-328 MPV (test code = 39896-8) 9.4 fL 9.8-13.0 L NRBC/100 WBC (test code = 9453970035) 0.0 0.0-10.0 NRBC x10^3 (test code = 9706895996) See_Comment [Automated message] The system which generated this result transmitted reference range: 10*3/?L. The reference range was not used to interpret this result as normal/abnormal. GRAN MAT (NEUT) % (test code = 770-8) 82.7 % IMM GRAN % (test code = 3282293651) 0.50 % LYMPH % (test code = 736-9) 6.7 % MONO % (test code = 5905-5) 9.8 % EOS % (test code = 713-8) 0.2 % BASO % (test code = 706-2) 0.1 % GRAN MAT x10^3(ANC) (test code = 9121497591) 12.19 10*3/uL 1.99-6.95 H IMM GRAN x10^3 (test code = 5995227884) 0.08 10*3/uL 0.00-0.06 H LYMPH x10^3 (test code = 731-0) 0.99 10*3/uL 1.09-3.23 L MONO x10^3 (test code = 742-7) 1.44 10*3/uL 0.36-1.02 H EOS x10^3 (test code = 711-2) 0.03 10*3/uL 0.06-0.53 L BASO x10^3 (test code = 704-7) 0.01-0.09 Lab Interpretation (test code = 92969-5) Abnormal [facility] GLUCOSE (AUTOMATED)2023-08-16 22:02:57* Test Item Value Reference Range Interpretation Comme nts POCT GLU (test code = 5152478832) 112 mg/dL 70-110 H Lab Interpretation (test cod e = 16002-6) Abnormal [facility] GLUCOSE (AUTOMATED)2023-08-16 16:59:58* Test Item Value Reference Range Interpretation Comme nts POCT GLU (test code = 9813547890) 127 mg/dL 70-110 H Lab Interpretation (test cod e = 05240-1) Abnormal [facility] GLUCOSE (AUTOMATED)2023-08-16 12:48:23* Test Item Value Reference Range Interpretation Comme nts POCT GLU (test code = 6042762973) 175 mg/dL 70-110 H Lab Interpretation (test cod e = 40803-6) Abnormal [facility] GLUCOSE (AUTOMATED)2023-08-16 02:07:02* Test Item Value Reference Range Interpretation Comme nts POCT GLU (test code = [id number]) 195 mg/dL 70-110 H Notified Provide r Lab Interpretation (test code = 33170-8) Abnormal [facility] GLUCOSE (AUTOMATED)2023-08-15 21:36:15* Test Item Value Reference Range Interpretation Comme nts POCT GLU (test code = 9819831017) 284 mg/dL 70-110 H Lab Interpretation (test cod e = 46548-2) Abnormal [facility] GLUCOSE (AUTOMATED)2023-08-15 16:56:02* Test Item Value Reference Range Interpretation Comme nts POCT GLU (test code = 3280380180) 74 mg/dL 70-110 Lab Interpretation (test cod e = 36893-9) Normal [facility] GLUCOSE (AUTOMATED)2023-08-15 13:12:34* Test Item Value Reference Range Interpretation Comme nts POCT GLU (test code = 7872082308) 258 mg/dL 70-110 H Lab Interpretation (test cod e = 08828-2) Abnormal [facility] GLUCOSE (AUTOMATED)2023-08-15 04:04:43* Test Item Value Reference Range Interpretation Comme nts POCT GLU (test code = 7990079244) 120 mg/dL 70-110 H Lab Interpretation (test cod e = 34453-0) [facility]normal [facility]cosylated Hemoglobin (A1C)2023-08-15 01:17:32* Test Item Value Reference Range Interpretation Comme nts HGB A1C (test code = 4548-4) 8.9 % 4.0-5.7 H GINA (test code = GINA) Reference RangesNormal: <5.7%Prediabetes: 5.7 - 6.4%Diabetes: > 6.5% Lab Interpretation (test code = 97153-9) Abnormal [facility]roeBeta Ctbvsht-[id number] 01:00:45* Test Item Value Reference Range Interpretation Comme nts BOH (test code = 2701279273) 0.5 mmol/L GINA (test code = GINA) Normal Ranges: ? ? Nonfasting ? Less than 0.1 mmol/L ? ? Overnight Fast ? ? ? Less than 0.4 mmol/L ? ? Fasting (1-2 weeks) ?6-8 mmol/L Test developed and characteristics determined by [facility] Laboratory Services. [facility] ConroeCreatine [id number] 23:07:16* Test Item Value Reference Range Interpretation Comme nts CK (test code = 7708354394) 148 U/L 33-194 Lab Interpretation (test cod e = 21457-9) Normal [facility]roeTROPONIN [id number] 22:18:16* Test Item Value Reference Range Interpretation Comme nts TROPONIN I (test code = 5451139688) 0.081 ng/mL <=0.034 H GINA (test code [...] of biotin. Lab Interpretation (test code = 04457-7) Abnormal [facility] ConroeN-TERMINAL [id number] 22:15:55* Test Item Value Reference Range Interpretation Comme [facility] NT-proBNP (test code = 80206-5) 999 pg/mL <=125 H GINA (test code = GINA) Positive: Heart Failure Likely Lab Interpretation (test code = 59908-5) Abnormal [facility] ConroeMagnesium2024-04-20 22:07:17* Test Item Value Reference Range Interpretation Comme nts MAGNESIUM (test code = 6000111583) 1.8 mg/dL 1.7-2.4 Lab Interpretation (test cod e = 14432-9) Normal [facility] ConroeCOMP. METABOLIC PANEL (51664)2023 22:06:57* Test Item Value Reference Range Interpretation Comme nts NA (test code = 9047668403) 130 mmol/L 135-145 L K (test code = 1359771157) 3.4 mmol/L 3.5-5.0 L CL (test code = 3116926622) 93 mmol/L 98-108 L CO2 TOTAL (test code = 8359448899) 26 mmol/L 23-31 AGAP (test code = 7753674350) 11 2-16 BUN (test code = 3068499093) 39 mg/dL 7-23 H GLUCOSE (test code = 8437567524) 142 mg/dL 70-110 H CREATININE (test code = 2160-0) 2.40 mg/dL 0.60-1.25 H TOTAL BILI (test code = 3284434897) 1.2 mg/dL 0.1-1.1 H CALCIUM (test code = 0572409441) 9.1 mg/dL 8.6-10.6 T PROTEIN (test code = 0912792881) 7.7 g/dL 6.3-8.2 ALBUMIN (test code = 6133582390) 4.2 g/dL 3.5-5.0 ALK PHOS (test code = 2736661730) 102 U/L 34-122 ALTv (test code = 1742-6) 16 U/L 5-50 AST(SGOT) (test code = 4726248168) 26 U/L 13-40 eGFR (test code = 01657-9) 30.9 mL/min/1.73m2 CKD-EPI eGFR (2020). Assuming creatinine has been stable day-to-day for at least three months, the eGFR indicates Category G3b (30 - 44 mL/min/1.73 m2) Lab Interpretation (test code = 75920-4) Abnormal [facility]roePhosphorus2024-04-20 22:06:37* Test Item Value Reference Range Interpretation Comme nts PHOSPHORUS (test code = 8424445338) 4.9 mg/dL 2.5-5.0 Lab Interpretation (test cod e = 61082-9) Normal [facility]roeLIPASE2024-04-20 22:06:17* Test Item Value Reference Range Interpretation Comme nts LIPASE (test code = 3090739537) 204 U/L 0-220 Lab Interpretation (test cod e = 14603-2) Normal [facility] ConroeCB WITH [id number] 21:54:56* Test Item Value Reference Range Interpretation [...] g/dL 31.2-35.0 H RDW-SD (test code = 98851-6) 38.1 fL 38.5-51.6 L RDW-CV (test code = 788-0) 11.8 % 12.1-15.4 L PLT (test code = 777-3) 235 150-328 MPV (test code = 85502-6) 11.1 fL 9.8-13.0 NRBC/100 WBC (test code = 1351070660) 0.0 0.0-10.0 NRBC x10^3 (test code = 5724687817) See_Comment [Automated message] The system which generated this result transmitted reference range: 10*3/?L. The reference range was not used to interpret this result as normal/abnormal. GRAN MAT (NEUT) % (test code = 770-8) 80.3 % IMM GRAN % (test code = 8780423635) 0.60 % LYMPH % (test code = 736-9) 8.7 % MONO % (test code = 5905-5) 10.0 % EOS % (test code = 713-8) 0.2 % BASO % (test code = 706-2) 0.2 % GRAN MAT x10^3(ANC) (test code = 1056832703) 10.18 10*3/uL 1.99-6.95 H IMM GRAN x10^3 (test code = 3851821655) 0.07 10*3/uL 0.00-0.06 H LYMPH x10^3 (test code = 731-0) 1.11 10*3/uL 1.09-3.23 MONO x10^3 (test code = 742-7) 1.27 10*3/uL 0.36-1.02 H EOS x10^3 (test code = 711-2) 0.03 10*3/uL 0.06-0.53 L BASO x10^3 (test code = 704-7) 0.03 10*3/uL 0.01-0.09 Lab Interpretation (test code = 97772-4) Abnormal [facility]roeXR CHEST 1 [id number] 21:49:58EXAM: XR CHEST 1 2023 4:38 PM HISTORY: 58 years-old Male with r/o infilrate . TECHNIQUE: Portable AP view of the chest. COMPARISON: 04/21/2023 FINDINGS: Lines and tubes: None. Cardiomediastinal: The cardiomediastinal silhouette is unremarkable. Lungs and pleura: The lungs are clear. No focal consolidation,pneumothorax, or pleural effusion is seen. Included osseous structures show no acuteabnormality.[facility] ConroeCT ABDOMEN PELVIS W [id number] 21:45:03EXAM: CT ABDOMEN AND PELVIS WITH CONTRAST [...] change involving the spine, sacroiliac jointsand hips ispresent.[facility] ConroeCT TRAUMA HEAD WO [id number] 21:38:37FULL RESULT: Examination: CT TRAUMA HEAD WO CONTRAST on 2023 4:16 PM Clinical Indication: Headache, hypertensive Comparison: None Technique: Noncontrast imaging was obtained from base to vertex.Findings: The sulci and ventricles were unremarkable. There may be subtlewhite matter microvascularischemic changes, notably in the anteriorperiventricular region, but there is no evidence for hemorrhage or otherclearly acute intracranial process.[facility] ConroeLadeic Acid Whole [id number] 21:30:25* Test Item Value Reference Range Interpretation Comme [facility] LACTIC ACID (test code = 4191196057) 1.58 mmol/L 0.50-2.20 Lab Interpretation (test cod e = 18142-3) Normal [facility] Venous Blood [id number] 21:30:25 * Test Item Value Reference Range Interpretation Comme nts PH (test code = 7150512353) 7.34 7.32-7.42 PCO2 NOY (test code = 7659565877) 45 41-51 PO2 NOY (test code = 0083906205) 24 25-40 L HCO3 NOY (test code = 5751529832) 24 24-28 AC VBE(BEAKER) (test code = 6663899467) -1.9 mEq/L Lab Interpretation (test cod e = 74981-2) Abnormal [facility] GLUCOSE (AUTOMATED)2023 20:26:17* Test Item Value Reference Range Interpretation Comme nts POCT GLU (test code = 0625974924) 165 mg/dL 70-110 H Lab Interpretation (test cod e = 89530-5) Abnormal [facility] GLUCOSE(AGE >30DAYS)2023 20:26:00* Test Item Value Reference Range Interpretation Comme nts POCT Glu (age>30days) (test code = 3342) 165 mg/dL 70-110 A Lab Interpretation (test cod e = 79358-9) Abnormal [facility]23 18:15:28* Test Item Value Reference Range Interpretation Comme nts POCT GLU (test code = 6062903632) 218 mg/dL 70-110 H Lab Interpretation (test cod e = 93053-2) [facility]23 15:35:23* Test Item Value Reference Range Interpretation Comme nts POCT GLU (test code = 6651434582) 186 mg/dL 70-110 H Lab Interpretation (test cod e = 99152-6) Abnormal [facility]2023-04-23 02:57:57* Test Item Value Reference Range Interpretation Comme nts POCT GLU (test code = 1741410525) 82 mg/dL 70-110 Lab Interpretation (test cod e = 09056-2) Normal [facility] GLUCOSE (AUTOMATED)2023-04-23 00:33:51* Test Item Value Reference Range Interpretation Comme nts POCT GLU (test code = 8051019877) 181 mg/dL 70-110 H Lab Interpretation (test cod e = 23687-4) Abnormal [facility] GLUCOSE (AUTOMATED)2023-04-22 22:54:22* Test Item Value Reference Range Interpretation Comme nts POCT GLU (test code = 7622444602) 127 mg/dL 70-110 H Lab Interpretation (test cod e = 85697-6) Abnormal [facility]2023-04-22 20:37:54* Test Item Value Reference Range Interpretation Comme nts POCT GLU (test code = 3158445909) 230 mg/dL 70-110 H Lab Interpretation (test cod e = 54414-7) Abnormal [facility]2023-04-22 17:46:23* Test Item Value Reference Range Interpretation Comme nts POCT GLU (test code = 3633563203) 144 mg/dL 70-110 H Lab Interpretation (test cod e = 39357-9) Abnormal [facility]2023-04-22 13:42:26* Test Item Value Reference Range Interpretation Comme nts POCT GLU (test code = 2426031833) 229 mg/dL 70-110 H Lab Interpretation (test cod e = 46682-1) Abnormal [facility] GLUCOSE (AUTOMATED)2023-04-22 03:33:49* Test Item Value Reference Range Interpretation Comme nts POCT GLU (test code = 4458756964) 222 mg/dL 70-110 H Lab Interpretation (test cod e = 37041-8) Abnormal [facility] GLUCOSE (AUTOMATED)2023-04-22 01:36:03* Test Item Value Reference Range Interpretation Comme nts POCT GLU (test code = 5296463969) 282 mg/dL 70-110 H Lab Interpretation (test cod e = 77086-5) Abnormal [facility] ConroeEchocardiogram dobutamine stress test 2023-04-21 22:26:30* Test Item Value Reference Range Interpretation Comme nts Height (test code = 1470257223) 63 in Weight (test code = 4267999300) 130 lbs Systolic BP (test code = 5732064378) 122 mmHg Diastolic BP (test code = 4249023827) 81 mmHg Heart Rate (test code = 6550432540) 105 bpm BSA (test code = 5751209559) 1.[address] Depresion (mm) (test code = 5264151427) [address] Depression (mm) (test code = 6121121250) 0 mm Radiology Study observation (narrative) (test code = 56696-1) GINA (test code = GINA) Table formatting [...] left ventricular wall motion is globally hyperkinetic. [facility]roeTransthoracic echo (TTE)2023-04-21 18:05:03* Test Item Value Reference Range Interpretation Comme nts Height (test code = 2884471641) 63 in Weight (test code = 1212999935) 130 lbs Systolic BP (test code = 0135356603) 114 mmHg Diastolic BP (test code = 3396314254) 75 mmHg Heart Rate (test code = 0447965192) 98 bpm BSA (test code = 2968328597) 1.61 m2 LVIDD (test code = 2922911553) 4.00 cm Left Ventricular End Diastolic Volume by Teichholz Method (test code = 2973133) 70.0 mL IVS (test code = 2286645742) 1.07 cm Interventricular Septum Diastolic Thickness by 2D (test code = 3556265) 1.07 cm LVPWD (test code = 7781480929) 1.05 cm PW (test code = 8430461853) 1.05 cm 0.6-1.1 EF(Teich) (test code = 1265402752) 62.60 % LVIDS (test code = 4621887182) 2.70 cm Left Ventricular End Systolic Volume by Teichholz Method (test code = 8333161) 26.2 mL FS (test code = 7972069655) 33 % EF - 2D (test code = 18224801) 62.60 % Ao root diam (test code = 9599579123) 3.70 cm Aortic root (test code = 2218839287) 3.7 cm Ao root annulus (test code = 7356752740) 3.7 cm LA size (test code = 4434556011) 3.2 cm LVOT diameter (test code = 4871802686) 2.08 cm LVOT area (test code = 1092304058) 3.40 cm2 MV Peak E Nima (test code = 3459646473) 48.3 cm/s E wave decelartion time (test code = 0441508024) 0.15 s MV Peak A Nima (test code = 9186251172) 74.4 cm/s E/A ratio (test code = 2604397816) 0.65 ratio MV Prop V (test code = 0353990423) 21.20 cm/s LAV(MOD-sp4) (test code = 6745043014) 35.30 mL Tapse (test code = 6280547511) 1.73 cm LVOT stroke volume (test code = 4135494239) 45.20 cm3 LVOT peak nima (test code = 2157456588) 79.0 cm/s LVOT mn grad (test code = 0874847973) 1.3 mmHg AV LVOT peak gradient (test code = 2986571324) 2.50 mmHg LVOT peak VTI (test code = 6999155800) 13.2 cm LV V1 mean (test code = 0930684554) 52.90 cm/s Ao peak nima (test code = 1751564516) 83.8 cm/s AV area peak nmia (test code = 4158997242) 3.2 cm2 Ao max PG (test code = 7468939793) 2.80 mm[Hg] AV peak gradient (test code = 2117487733) 2.8 mmHg LA Volume Index (BP) (test code = 3479591183) 25.9 mL/m2 LA volume (BP) (test code = 2776472484) 41.8 mL LAV(MOD-sp2) (test code = 0521468311) 40.90 mL A4C EF (test code = 0830466931) 54.40 % EF(sp4-el) (test code = 0775772749) 55.00 % SV(MOD-sp4) (test code = 2200286114) 53.10 mL SV(sp4-el) (test code = 4576856081) 55.60 mL Radiology Study observation (narrative) (test code = 63659-1) GINA (test code = GINA) ?Left?Ventricle: Left [...] enhancing agent used. Patient exhibited sinus rhythm. [facility] GLUCOSE (AUTOMATED)2023-04-21 17:48:26* Test Item Value Reference Range Interpretation Comme nts POCT GLU (test code = 6496008536) 198 mg/dL 70-110 H Lab Interpretation (test cod e = 09389-8) Abnormal [facility]XR CHEST 1 [id number] 15:12:07EXAM: XR CHEST 1 VW HISTORY: NSTEMI COMPARISON: None. FINDINGS: Small bandlike densities in the left midlung have more the appearance ofatelectasis than pneumonia. The lungs are well expanded and clearotherwise. The heart and great vessels are normal except for calcium in thearch of the aorta.[facility] GLUCOSE (AUTOMATED)2023-04-21 09:39:57* Test Item Value Reference Range Interpretation Comme nts POCT GLU (test code = 3926011616) 243 mg/dL 70-110 H Lab Interpretation (test cod e = 17261-8) Abnormal [facility] ConroeFerritin [id number] 07:28:27* Test Item Value Reference Range Interpretation Comme nts FERRITIN (test code = 5272418294) 76.3 ng/mL 18.0-464.0 GINA (test code = GINA) Biotin has been reported to cause a negative bias, interpret results relative to patient's use of biotin. Lab Interpretation (test code = 86014-3) Normal [facility] ConroeGlycosylated Hemoglobin (A1C)2023-04-21 07:25:47* Test Item Value Reference Range Interpretation Comme nts HGB A1C (test code = 4548-4) 12.6 % 4.0-5.7 H GINA (test code = GINA) Reference RangesNormal: <5.7%Prediabetes: 5.7 - 6.4%Diabetes: > 6.5% Lab Interpretation (test code = 90702-7) Abnormal [facility] ConroeThyroid Stimulating [id number] 07:24:07 * Test Item Value Reference Range Interpretation Comme nts TSH (test code = 3122723451) 2.56 See_Comment [Automated messa ge] The system which generated this result transmitted reference range: 0.45 - 4.70 mIU/L. The reference range was not used to interpret this result as normal/abnormal. Lab Interpretation (test code = 42851-3) Normal [facility]roePhosphorus2023-12-27 06:52:06* Test Item Value Reference Range Interpretation Comme nts PHOSPHORUS (test code = 7044084042) 3.2 mg/dL 2.5-5.0 Lab Interpretation (test cod e = 48024-3) Normal [facility] ConroeCritical [id number] 02:54:15NSergio chin MD ? ? 04/20/2023 ?8:54 [...] separately billable procedures and treating other patients. [facility] ConroeTrmilady [id number] 02:30:18* Test Item Value Reference Range Interpretation Comme nts TROPONIN I (test code = 0747869314) 0.154 ng/mL <=0.034 H GINA (test code [...] of biotin. Lab Interpretation (test code = 73577-8) Abnormal [facility] ConroeETHANOL2023-12-27 02:24:46 ALCOHOL<10mg/dL04/20/2023 8:24 PM [facility]<10 Vunyerai69-641 Toxic>100 Depression of PROFILE SAW SETUP OPERATOR>400 Fatalities ReportedUnHCA [facility] Healthcare MainlandCOMP. METABOLIC PANEL (16122)2023-04-21 02:19:15* Test Item Value Reference Range Interpretation Comme nts NA (test code = 6554403065) 129 mmol/L 135-145 L K (test code = 0189796989) 3.5 mmol/L 3.5-5.0 CL (test code = 7932823239) 94 mmol/L 98-108 L CO2 TOTAL (test code = 6937897045) 28 mmol/L 23-31 AGAP (test code = 6740799711) 7 2-16 BUN (test code = 1688601749) 26 mg/dL 7-23 H GLUCOSE (test code = 0735057950) 314 mg/dL 70-110 H CREATININE (test code = 0539638800) 0.92 mg/dL 0.60-1.25 TOTAL BILI (test code = 6947414880) 0.8 mg/dL 0.1-1.1 CALCIUM (test code = 8888525675) 8.5 mg/dL 8.6-10.6 L T PROTEIN (test code = 1865059706) 6.0 g/dL 6.3-8.2 L ALBUMIN (test code = 0317745199) 3.3 g/dL 3.5-5.0 L ALK PHOS (test code = 6192916255) 95 U/L 34-122 ALTv (test code = 1742-6) 23 U/L 5-50 AST(SGOT) (test code = 3990478851) 30 U/L 13-40 eGFR (test code = 42072-0) 98.2 mL/min/1.73m2 CKD-EPI eGFR (2020). Assuming creatinine has been stable day-to-day for at least three months, the eGFR indicates Category G1 (>= 90 mL/min/1.73 m2) Lab Interpretation (test code = 66967-7) Abnormal [facility] WITH [id number] 02:03:54* Test Item Value Reference Range Interpretation [...] g/dL 31.2-35.0 H RDW-SD (test code = 49538-0) 36.2 fL 38.5-51.6 L RDW-CV (test code = 788-0) 11.6 % 12.1-15.4 L PLT (test code = 777-3) 178 See_Comment [Automated Cell-A-Spota ge] The system which generated this result transmitted reference range: 150 - 328 10*3/?L. The reference range was not used to interpret this result as normal/abnormal. MPV (test code = 94173-1) 10.9 fL 9.8-13.0 NRBC/100 WBC (test code = 8242475277) 0.0 See_Comment [Automated Webcollage ssage] The system which generated this result transmitted reference range: 0.0 - 10.0 /100 WBCs. The reference range was not used to interpret this result as normal/abnormal. NRBC x10^3 (test code = 0855792556) See_Comment [Automated Cell-A-Spota [employer]] The system which generated this result transmitted reference range: 10*3/?L. The reference range was not used to interpret this result as normal/abnormal. GRAN MAT (NEUT) % (test code = 770-8) 81.3 % IMM GRAN % (test code = 5884950139) 0.30 % LYMPH % (test code = 736-9) 10.5 % MONO % (test code = 5905-5) 7.6 % EOS % (test code = 713-8) 0.1 % BASO % (test code = 706-2) 0.2 % GRAN MAT x10^3(ANC) (test code = 6398758664) 9.55 10*3/uL 1.99-6.95 H IMM GRAN x10^3 (test code = 5869946468) 0.04 10*3/uL 0.00-0.06 LYMPH x10^3 (test code = 731-0) 1.23 10*3/uL 1.09-3.23 MONO x10^3 (test code = 742-7) 0.89 10*3/uL 0.36-1.02 EOS x10^3 (test code = 711-2) 0.06-0.53 L BASO x10^3 (test code = 704-7) 0.01-0.09 Lab Interpretation (test code = 59313-4) Abnormal [facility]roePOCT GLUCOSE (AUTOMATED)2023-04-21 01:55:51* Test Item Value Reference Range Interpretation Comme [facility] POCT GLU (test code = 9816242631) 408 mg/dL 70-110 H Lab Interpretation (test cod e = 63013-3) Abnormal [facility] ConroeCOMPREHENSIVE METABOLIC [id number] 05:07:51* Test Item Value Reference Range Interpretation Comme [facility] GLUCOSE (test code = 2217) 224 MG/DL 70-99 H BUN (test code = 8) 22 MG/DL 6-20 H CREATININE (test code = 2214) 0.71 MG/DL 0.80-1.40 L eGFR (2020 CKD-EPI) (test code = 65732) 109 ML/MIN/1.73 >60 CALC BUN/CREAT (test code [...] code = 2219) 24 U/L 5-50 LIPID [id number] 05:07:51* Test Item Value Reference Range Interpretation [...] SPECIMENS. FOR MOREINFORMATION, SEE CLIENT ANNOUNCEMENT AT [email or web address] [email or web address] RATIO LDL/HDL (test code = 2238) 1.72 RATIO <3.55 PSA, [id number] 05:07:10* Test Item Value Reference Range Interpretation Comme nts PSA, TOTAL (test code = 2606) 19.70 NG/ML See_Comment H NOTE: Methodolog y is Ashley Jasmina Electrochemiluminescence Immunoassay traceable to WHO reference standard 96/760. UNLESS OTHERWISE INDICATED, ALL TESTING PERFORMED [facility] [address] [place] [address] MANAGER OF APPLICATION DEVELOPMENT: DUSTIN COLMENARES M.D. CLIA NUMBER [id number] [place]. [id number] [Automated message] The system which generated this result transmitted reference range: <=4.00. The reference range was not used to interpret this result as normal/abnormal. HEMOGLOBIN [id number] 02:46:58* Test Item Value Reference Range Interpretation Comme nts HEMOGLOBIN A1c (test code = 61782) 11.0 % 4.2-5.6 H [employer] GUIDELINES FOR HGB A1C: [...] OR LABORATORY CONSULTATION. CBC W/AUTO DIFF WITH [id number] 02:32:39* Test Item Value Reference Range Interpretation [...] = 1065) 0.0 /100 WBC'S See_Comment [Automated Cell-A-Spota ge] The system which generated this result [...] 0.00-0.10 ABS NUCLEATED RBCS (test code = 98071) 0.00 K/UL 0.00-0.11 Consult Notes Date/Time Note [...] when jensen is moved. COMMUNICATION Primary Language: Finnish Able to Verbalize needs: Yes Vision:good; no [...] Minutes: 20 min Jesica Murphy,PT [place] License: [id number] Required Components in Determining Evaluation Level History: No personal factors or comorbidities: No (77940) 1-2 personal factors and/or comorbidities: Yes (10978) 3 or more personal factors and/ or comorbidities: No (24178) Examination of Body System(s) Addressing 1-2 elements: Yes (57346) Addressing a total of 3 or more elements: No (40489) Addressing a total of 4 or more elements: No (69431) Clinical Presentation Stable: Yes (71288) Evolving: No (87813) Unstable: No (66269) Clinical Decision Making (Complexity) Low: No (52784) Moderate: Yes (25207) High: No (36910) Jesica Murphy PT [facility] [employer] 2023-08-15 10:01:34 Associated Order(s): CONSULT CARDIOLOGY [facility] Cardiology Consult Note Patient: Saturnino Maldonado [...] specified complication Elevated troponins: Likely type II CO in the setting of underlying ELIEZER/elevated blood [...] per primary team. Last Two A1C Results ([facility]/LC, POCT, [facility]) Recent Labs 04/20/23195408/14/23 1547 [...] feel free to call our office at [phone]. I would be happy to be of further assistance for Saturnino Maldonado wellbeing. Voice recognition software has been used to create portions of this document. An attempt to proofread has been made to minimize errors. Please do not hesitate to call with any questions. Benja Rivera MD Dough Machine Operator, Division of Cardiology [facility] 2023-04-21 08:46:48 Associated Order(s): CONSULT ENDOCRINOLOGY Endocrinology Consult Note Consultation requested by: Service: White team Reason for Consultation: Diabetes Date of Service: 04/21/23 HPI 57 year old male with a PMH of HTN, T2DM, Fmhx premature CAD who presented with complaints of polyuria and weakness at [facility] ER. Patient transferred to [place] for further work up. Endocrinology consulted for diabetes management Diabetes Type and year diagnosed: 2011, type 2 Diabetes complications: none Hx of DM regimen: no meds for 3 years Compliance: - BG monitoring? - Hypoglycemia hx: no Hypoglycemia unawareness? no Symptoms of hyperglycemia: polyuria Living situation and support: homeless, lives with different relatives Diabetes doctor: PCP in [place], has not seen for few years Family hx of diabetes: no HX of glucocorticoid use: no HX of transfusions or EPO in last 6 months: no PAST MEDICAL HISTORY Past Medical History: Diagnosis Date HTN (hypertension) Uncontrolled diabetes mellitus with hyperglycemia History reviewed. No pertinent surgical history. Family History Problem Relation Age of Onset No Significant Medical Problems Mother CO (myocardial infarction) Father Social History Tobacco Use [...] with complaints of polyuria and weakness at [facility] ER. Patient transferred to [place] for further work up. Endocrinology consulted for [...] Cabrera.. Austin Amaro. Endocrinology Fellow, PGY 5 CARRIER MAINTENANCE INSPECTOR Associated attestation - Rita Cabrera MD - 04/22/2023 2:11 PM AIR CARRIER MAINTENANCE INSPECTOR Endocrinology Faculty Attestation: I evaluated this patient's progress on 04/21/[address] Amaro note as written and revised. I actively participated in the decision-making process. Please see the resident's note for additional details that includes pertinent addendums I made directly in the note during revision. Rita Cabrera MD Dough Machine Operator Division of Endocrinology IM-ENDOCRINOLOGY,DIABET ES & METABOLISM [facility] - Health History and Physical Notes Date/Time Note Provider Source 2023-08-21 22:53:53 [facility] Hospitalist Admission H&P Date of Service: [...] consulted. 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 Lyubov Banda MD [facility] 2023 22:58:21 MEDICINE [facility] ADMIT H&P Date of Service: 2023 CHIEF [...] of Onset No Significant Medical Problems Mother CO (myocardial infarction) Father ALLERGIES No Known Allergies [...] Full Code T [facility] EMERGENCY PHYSICIAN STAFF [facility] 2023-04-21 00:39:12 [facility] Admit H&P PCP: Erik Louie Jr Date of Service: 04/20/2023 CHIEF COMPLAINT: Polyuria HISTORY OF PRESENT ILLNESS Saturnino Maldonado is a 57 year old male with a PMH of HTN, T2DM, Fmhx premature CAD who presented with complaints of polyuria and weakness at [facility] ER. Patient transferred to [place] for further work up. Patient reports that [...] or drug use. Family history significant for CO in father in his 40s. Currently not [...] use drugs. Family history: family history includes CO (myocardial infarction) in his father; No Significant [...] help with resources. Plan: - Admit to [facility] - Trend Troponin to peak [...] Internal Medicine Department PGY 2, [place] Team CARRIER MAINTENANCE INSPECTOR Associated attestation - Bret Banda MD - 04/21/2023 2:47 PM AIR CARRIER MAINTENANCE INSPECTOR I reviewed patient's chart, vitals, lab work, current medications and other diagnostic studies. I saw and examined the patient today and agree with the detailed note. I actively participated in the decision-making process. Bret Banda MD Dough Machine Operator Division of Cardiology [facility] Notes Date/Time Note Provider Source 2023-08-24 [...] Outcome: Adequate for discharge Kalina Georges RN [facility] 2023-08-24 13:14:04 Problem: Pain Goal: Control [...] Absence of falls Outcome: Adequate for discharge [facility] 2023-08-23 07:12:12 Problem: Pain Goal: Control [...] Outcome: Progressing as expected Abi Lowery RN [facility] 2023-08-22 22:07:54 Problem: Pain Goal: Control [...] Outcome: Progressing as expected Tammy Sweeney RN [facility] 2023-08-22 08:41:53 Problem: Pain Goal: Control [...] Outcome: Progressing as expected Mihaela Lopez RN [facility] 2023-08-22 03:26:01 Problem: Pain Goal: Control [...] Outcome: Progressing as expected Angeline Claudio RN [facility] 2023-08-21 23:32:26 Patient admitted to [facility] for diagnosis of ELIEZER, urinary obstruction Patient agrees to admission, discussed plan of care with patient and family. Patient is awake, alert, oriented, resp reg unlabored, color appropriate for race, PIV intact No adverse reaction to medications administered while in ED Belongings with patient to unit Report to Xu VILLAGRAN Chela Reyes RN [facility] 2023-08-21 19:43:36 Pt C/O RLQ pain that started yesterday, pt states last BM 08/16/2023. 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 [...] 0.01 - 0.09 10*3/uL COMP. METABOLIC PANEL (80614) - Abnormal NA 120 (*) 135 - [...] CONTRAST Cbc with Diff Comp. Metabolic Panel (94138) Lipase Urinalysis Basic Metabolic Panel (NA, K, [...] treatment AdmissionCare documentation entered by: Cosme Cardona [facility] [employer], 27 edition, Copyright ? 2022 [employer] All Rights Reserved. [id number]:26:32-05:00 ED COURSE ED Course as of 08/21/23 [...] Electronically signed by: Cosme Cardona DO 08/21/23 2509 [facility] 2023-08-21 19:39:00 AdmissionCare Guideline: Urologic Disease, Inpatient [...] treatment AdmissionCare documentation entered by: Cosme Cardona [facility], 27th edition, Copyright ? 2022 [facility] [employer] [facility] All Rights Reserved. [id number]:26:32-05:00 [facility] 2023-08-17 08:32:29 ----- Message from Yary [...] with one of us in 3-4 weeks. [facility] 2023-08-16 17:56:55 Summary: discharge transportation Discharge paperwork provided, patient stated he does not have a ride. Transportation was arranged with voucher. Discharge location: [address] [place] [address] Patient verbalized understanding. Hilary Quinones RN [facility] 2023-08-16 17:19:16 Problem: Pain Goal: Control of pain at or below patient's documented comfort goal Outcome: Resolved Goal: Reduction in pain sensation Outcome: Resolved Problem: Skin integrity Impaired (Risk or Actual) Goal: Prevention of new skin breakdown Outcome: Resolved Problem: Venous Thromboembolism, (actual or risk of) Goal: Absence of venous thromboembolism (Risk) Outcome: Resolved [facility] 2023-08-16 10:33:18 Summary: jensen Jensen discontinued without complications. Patient given lactulose PO. Patient notified to notify nurse and to leave urine/stool before flushing for nursing staff to assess. Patient verbalized understanding. [facility] 2023-08-16 00:51:24 Problem: Pain Goal: Control of pain at or below patient's documented comfort goal Outcome: Progressing as expected Goal: Reduction in pain sensation Outcome: Progressing as expected Problem: Skin integrity Impaired (Risk or Actual) Goal: Prevention of new skin breakdown Outcome: Progressing as expected Problem: Venous Thromboembolism, (actual or risk of) Goal: Absence of venous thromboembolism (Risk) Outcome: Progressing as expected [facility] 2023-08-15 19:27:06 Problem: Pain Goal: Control of pain at or below patient's documented comfort goal Outcome: Progressing as expected Goal: Reduction in pain sensation Outcome: Progressing as expected Problem: Skin integrity Impaired (Risk or Actual) Goal: Prevention of new skin breakdown Outcome: Progressing as expected Problem: Venous Thromboembolism, (actual or risk of) Goal: Absence of venous thromboembolism (Risk) Outcome: Progressing as expected [facility] Libia Johnson RN [facility] 2023 23:43:36 Problem: Pain Goal: Control of pain at or below patient's documented comfort goal Outcome: Progressing as expected Goal: Reduction in pain sensation Outcome: Progressing as expected Problem: Skin integrity Impaired (Risk or Actual) Goal: Prevention of new skin breakdown Outcome: Progressing as expected Problem: Venous Thromboembolism, (actual or risk of) Goal: Absence of venous thromboembolism (Risk) Outcome: Progressing as expected [facility] 2023 23:01:15 Patient admitted to [facility] for diagnosis of Hypertension, elevated troponin, urine retention, ELIEZER, hypokalemia. Patient agrees to admission, discussed plan of care with patient and family. Patient is awake, alert, oriented, resp reg unlabored, color appropriate for race, PIV intact No adverse reaction to medications administered while in ED Belongings with patient to unit Report to [facility] RN Josi Miller RN [facility] 2023 18:56:57 Handoff report given to Josi VILLAGRAN Nunu Fang RN [facility] 2023 14:42:29 Has been out of diabetic, BP meds since April. States he can't "afford it". Struggling with constipation for "several days". He called EMS today for excessive fatigue and worsening hypertension. He is A&Ox4 and able to ambulate. Alba Hernandez RN [facility] 2023 14:38:00 Associated Order(s): EKG-12 Lead ROUTINE ONCE Pre-Procedure Diagnose(s): Hypertension, unspecified type Post-Procedure Diagnose(s): Hypertension, unspecified type; Elevated troponin I level; Urine retention [facility] Emergency Department Note Patient Name: Saturnino Maldonado Date of : 1965 58 year old male Treatment Room: TX6/TX6 Primary Care Physician: Erik Louie Jr Patient Escorted by: Self [9] Mode of Arrival: EMS - Bee [46] EMS Treatment Prior to ED Arrival: [...] History provided by: Patient and medical records translator/interpreter used: No Past Medical History/Immunizations: Past Medical [...] ED Physician in the absence of a coffee grower: yes Previous ECG: Previous ECG: Compared to [...] Electronically signed by: Umang Reynaga MD 08/14/231851 [facility] 2023 14:38:00 AdmissionCare Guideline: Renal Failure (Acute), [...] serial assessments) AdmissionCare documentation entered by: [facility] [employer], edition, Copyright ? 2022 [employer] All Rights Reserved. [id number]:45:18-05:00 [facility] [employer] 2023 14:38:00 AdmissionCare Guideline: Renal Failure (Acute) [...] pediatric patients) AdmissionCare documentation entered by: [facility]ang [facility] [employer], edition, Copyright ? 2022 [employer] All Rights Reserved. [id number]:00:25-05:00 [facility] [employer] 2023-04-27 15:56:14 TRANSITIONAL CARE MANAGEMENT ASSESSMENT 04/27/2023 Saturnino Maldonado [id number] Saturnino Maldonado is a 57 year old /White male was admitted on 04/20/[address] He was discharged on 04/23/23 with [...] to check in. No linked episodes TCM [id number]-fd-face outreach documentation: Future Appointments: CARRIER MAINTENANCE INSPECTOR Jeannette Dawn LVN [facility] 2023-04-23 18:39:42 Patient refuses to take taxi voucher which takes him directly to [facility] stating, "My brother is on his way to pick me up. I don't want to upset him as it is anymore." When asked if his brother is going to take him to [facility], patient stated, "I don't know. That will be between me and my brother." Transportation in room, wheeled patient downstairs to [facility]. A Sparks RN [facility] 2023-04-23 17:33:42 Problem: Glucose control Goal: [...] level of care 04/23/2023 1733 by Valentino Whiitng RN Outcome: Adequate for discharge 04/23/2023 1732 [...] Outcome: Progressing as expected A Whiting RN [facility] 2023-04-23 17:33:03 Problem: Glucose control Goal: [...] Valentino Whiting RN Outcome: Progressing as expected [facility] [employer] 2023-04-23 10:51:50 Problem: Glucose control Goal: Glucose [...] of cognitive ability Outcome: Progressing as expected [facility] [employer] 2023-04-23 00:56:44 Problem: Mental Status - Impaired Goal: Able to achieve maximum level of cognitive ability Outcome: Progressing as expected [facility] 2023-04-23 00:52:07 Problem: Glucose control [...] within specified parameters Outcome: Progressing as expected [facility] 2023-04-22 08:03:00 Problem: Glucose control [...] within specified parameters Outcome: Progressing as expected [facility] 2023-04-20 23:38:56 Problem: Glucose control [...] within specified parameters Outcome: Progressing as expected [facility] 2023-04-20 21:49:51 Patient admitted to [facility] for diagnosis of WEAKNESS, NSTEMI, HYPERGLYCEMIA Patient agrees to admission, discussed plan of care with patient. Patient is awake, alert, oriented, resp reg unlabored, color appropriate for race, PIV intact No adverse reaction to medications administered while in ED Belongings with patient to unit Report to MARIE VILLAGRAN REPORT GIVEN TO MEDIC FOR [facility], PT LOADED TO BE TRANSFERRED. HEPARIN INFUSING AT 700 UNITS/ HOUR. CARRIER MAINTENANCE INSPECTOR Jaelyn Vargas RN [facility] 2023-04-20 21:38:11 Report called to [facility] [place], spoke with Marie VILLAGRAN. Pt awaiting EMS transfer. CARRIER MAINTENANCE INSPECTOR [facility] 2023-04-20 20:59:06 [facility] ETA 45 MIN per Chen A Carrero PCT [facility] 2023-04-20 20:54:15 Associated Order(s): Critical Care [...] separately billable procedures and treating other patients. [facility] 2023-04-20 20:00:00 Patient aware of UA sample needed. Unable to provide sample at this moment. Urinal at bedside. Call light within reach. 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 Per patient he was diagnosed with DM five years ago and stopped taking home meds-Metformin about three years ago. Patient c/o of being weak and increased UOP. Patient was nauseous SCRAP DROP ENGINEER but has resolved since. [facility] 2023-04-20 19:43:00 EMERGENCY DEPARTMENT ENCOUNTER [facility] Patient Name: Saturnino Maldonado Date of : 1965 57 year old Exam Room:Room/bed info not found Primary Care Physician: No primary care provider on file. 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 Per patient he was diagnosed with DM five years ago and stopped taking home meds-Metformin about three years ago. Patient c/o of being weak and increased UOP. Patient was nauseous SCRAP DROP ENGINEER but has resolved since. HPI History [...] 0.01 - 0.09 10*3/uL COMP. METABOLIC PANEL (03616) - Abnormal NA 129 (*) 135 - [...] VW CBC WITH DIFF COMP. METABOLIC PANEL (87178) URINALYSIS URINE DRUG (IMMUNOASSAY) - COMPREHENSIVE DRUG SCREEN W/O REFLEX ETHANOL POCT GLUCOSE (AUTOMATED) Troponin I Prothrombin Time / INR aPTT aPTT (for use with Heparin Infusion) Ferritin Serum Iron Panel Troponin I Thyroid Stimulating Hormone Glycosylated Hemoglobin (A1C) Phosphorus Cbc with Diff Basic Metabolic Panel (NA, K, CL, CO2, GLUCOSE, BUN, CREATININE, CA) Magnesium Lipid Panel (70011)(Total Cholesterol, Triglycerides, HDL) O2 Per Protocol Orders [...] mg Procedures EKG Time 195 Sinus tach [place] normal Intervals normal No acute ischemia Notes [...] demonstrates that he is having a silent CO. He has elevated troponin of 0.154. Please note he does not have any chest pain or shortness of breath. EKG does not demonstrate a STEMI. He was started on heparin, Plavix, and aspirin. The patient may require cardiac catheterization. The patient was transferred to [facility] for further evaluation. History, physical exam findings, [...] this patient. Sergio Aponte Jr., MD Clinical Dough Machine Operator [facility] Emergency Department [employer] Dictation Software is used frequently and may produce errors. Promptly contact for obvious discrepancies. Sergio Aponte MD 04/21/23 0025 [facility]
--- NOTE | 2024-03-06 06:21 | ER ---
Nurse's Notes [facility] Name: Johnnie Maldonado Age: 58 yrs Sex: Male : 1965 Arrival Date: 03/06/2024 Time: 05:26 Bed 17 Private MD: Diagnosis: Cellulitis of abdominal wall Presentation: 03/06 05:45 Chief complaint: Patient states: patient complains of a bite on his abdomen from kj2 unknown insect. Coronavirus screen: Client denies travel out of the [place] in the last 14 days. Ebola Screen: No symptoms or risks identified at this time. Risk Assessment: Do you want to hurt yourself or someone else? Patient reports no desire to harm self or others. Onset of symptoms was February 29, 2024. 05:45 Method Of Arrival: Ambulatory [facility] 05:45 Acuity: DONTE 3 kj2 06:36 Initial Sepsis Screen: Does the patient meet any 2 criteria? No. Patient's initial 2 sepsis screen is negative. Does the patient have a suspected source of infection? No. Patient's initial sepsis screen is negative. Triage Assessment: 05:45 Bite description: bite sustained to abdomen by unknown insect. General: Appears in no kj2 apparent distress. Behavior is calm, cooperative. Pain: Denies pain. 06:35 Bite description: unknown insect. kj2 06:37 Bite description: animal information:. Bite description:. kj2 06:38 Bite description: animal information: vaccination(s) is not applicable. kj2 Historical: - Allergies: 06:00 No Known Allergies; kj2 - PMHx: 06:03 diabetes mellitus; Hypertensive disorder; raynaud's; Urinary incontinence; kj2 - PSHx: 06:03 right arm; kj2 - Immunization history:: Adult Immunizations unknown. - Infectious Disease History:: Denies. - Social history:: Smoking status: Patient denies any tobacco usage or history of. - Family history:: not pertinent. - Hospitalizations: : No recent hospitalization is reported. Screenin:45 [facility] ED Fall Risk Assessment (Adult) History of falling in the last 3 months, kj2 including since admission No falls in past 3 months (0 pts) Confusion or Disorientation No (0 pts) Intoxicated or Sedated No (0 pts) Impaired Gait No (0 pts) Mobility Assist Device Used No (0 pt) Altered Elimination No (0 pt) Score/Fall Risk Level 0 - 2 = Low Risk Maintained a safe environment, Hourly rounding (assess needs \T\ fall precautionary measures) done. Abuse screen: Denies threats or abuse. Denies injuries from another. Nutritional screening: No deficits noted. Tuberculosis screening: No symptoms or risk factors identified. Assessment: 05:45 General: see triage assessment. kj2 06:38 Derm: Skin is intact, Skin is red. kj2 Vital Signs: 05:45 BP 150 / 94; Pulse 80; Resp 18; Temp 98.4; Pulse Ox 100% on R/A; kj2 06:01 Weight 52.16 kg; Height 5 ft. 3 in. ; Pain 0/10; kj2 06:33 BP 145 / 84; Pulse 80; Resp 18; Temp 98.2; Pulse Ox 100% on R/A; kj2 06:01 Body Mass Index 20.37 (52.16 kg, 160.02 cm) kj2 06:01 Pain Scale: Adult kj2 ED Course: 05:32 Patient arrived in ED. gm2 05:37 Julius Taylor MD is Attending Physician. rn 05:45 Patient has correct armband on for positive identification. Call light in reach. kj2 Provided Education on: call light. 05:45 Arm band placed on Patient placed in an exam room, on a stretcher. kj2 05:57 Glendy Olivares RN is Primary Nurse. kj2 06:00 Triage completed. kj2 06:36 No provider procedures requiring assistance completed. kj2 06:37 Patient did not have IV access during this emergency room visit. kj2 Administered Medications: 06:12 Drug: Clindamycin PO 300 mg PO once Route: PO; kj2 06:34 Follow up: Response: No adverse reaction; Medication administered at discharge. kj2 Medication: 05:45 VIS not applicable for this client. kj2 Outcome: 06:20 Discharge ordered by . rn 06:36 Discharged to home ambulatory, kj2 06:36 Condition: stable 06:36 Discharge instructions given to patient, Instructed on discharge instructions, medication usage, Demonstrated understanding of instructions, follow-up care, medications, Prescriptions given X 1, 06:38 Patient left the ED. kj2 Signatures: Julius Taylor MD MD rn Mitchell, Ginger 2 Marshall, Glendy, RN RN kj2
--- NOTE | 2024-03-06 06:21 | EDPHYS ---
Physician Documentation [facility] Name: Johnnie Maldonado Age: 58 yrs Sex: Male : 1965 Arrival Date: 03/06/2024 Time: 05:26 Bed 17 Private MD: ED Physician Julius Taylor HPI: 03/06 06:17 This 58 yrs old Male presents to ER via Ambulatory with complaints of Insect rn Bite. 06:17 the patient presents with a swollen area of the abdomen. Onset: The symptoms/episode rn began/occurred 1 week(s) ago. Associated signs and symptoms: Pertinent positives: erythema, Pertinent negatives: fever. Modifying factors: the symptoms are alleviated by nothing, the symptoms are aggravated by touching. Severity of symptoms: At their worst the symptoms were mild, in the emergency department the symptoms are unchanged. Patient reports unsure if had insect bite to abdominal wall. Has been there for a week, not getting worse but not improving either. Mild redness that is approximately 1 to 2 cm in size. No drainage.. Historical: - Allergies: 06:00 No Known Allergies; kj2 - PMHx: 06:03 diabetes mellitus; Hypertensive disorder; raynaud's; Urinary incontinence; kj2 - PSHx: 06:03 right arm; kj2 - Immunization history:: Adult Immunizations unknown. - Infectious Disease History:: Denies. - Social history:: Smoking status: Patient denies any tobacco usage or history of. - Family history:: not pertinent. - Hospitalizations: : No recent hospitalization is reported. ROS: 06:17 Constitutional: Negative for fever, chills, and weight loss, Abdomen/GI: Negative for rn abdominal pain, nausea, vomiting, diarrhea, and constipation, Skin: Positive for swollen area possible bite to abdomen Exam: 06:17 Constitutional: This is a well developed, well nourished patient who is awake, alert, rn and in no acute distress. Cardiovascular: Regular rate and rhythm. No pulse deficits. Skin: 2 cm area of induration, no fluctuance to anterior abdominal wall a few inches above umbilicus. Is mobile, no evidence of abscess. Is superficial induration. No necrosis noted Vital Signs: 05:45 BP 150 / 94; Pulse 80; Resp 18; Temp 98.4; Pulse Ox 100% on R/A; kj2 06:01 Weight 52.16 kg; Height 5 ft. 3 in. ; Pain 0/10; kj2 06:33 BP 145 / 84; Pulse 80; Resp 18; Temp 98.2; Pulse Ox 100% on R/A; kj2 06:01 Body Mass Index 20.37 (52.16 kg, 160.02 cm) kj2 06:01 Pain Scale: Adult kj2 MDM: 05:37 Medical Screening Exam initiated rn 06:17 Differential diagnosis: cellulitis, insect bite, Phlegmon. Data reviewed: vital signs, rn nurses notes, and as a result, I will discharge patient. Counseling: I had a detailed discussion with the patient and/or guardian regarding the historical points, exam findings, and any diagnostic results supporting the discharge/admit diagnosis, the need for outpatient follow up, to return to the emergency department if symptoms worsen or persist or if there are any questions or concerns that arise at home. Special discussion: I discussed with the patient/guardian in detail that at this point there is no indication for admission to the hospital. It is understood, however, that if the symptoms persist or worsen the patient needs to return immediately for re-evaluation. ED course: No fluctuance, is small and superficial, mobile, possible phlegmon/insect bite/local cellulitis. Will discharge home with antibiotics and return precautions.. Administered Medications: 06:12 Drug: Clindamycin PO 300 mg PO once Route: PO; kj2 06:34 Follow up: Response: No adverse reaction; Medication administered at discharge. kj2 Disposition Summary: 03/06/24 06:20 Discharge Ordered Notes: Location: Home rn Problem: new rn Symptoms: have improved rn Condition: Stable rn Diagnosis - Cellulitis of abdominal wall rn Followup: rn - With: Private Physician - When: As needed - Reason: Recheck today's complaints, Re-evaluation by your physician Discharge Instructions: - Discharge Summary Sheet rn - Cellulitis, Adult rn Forms: - Medication Reconciliation Form rn - Antibiotic rn diabetes - Prescription Opioid Use rn - Patient Portal Instructions rn - Leadership Thank You Letter rn Prescriptions: - Clindamycin HCl 300 mg Oral Capsule - take 1 capsule ORAL route every 6 hours for 10 days; 40 capsule; Refills: 0, rn Product Selection Permitted Signatures: Julius Taylor MD MD rn Jordan, Krystal, RN RN kj2
[2024-03-06 06:43] VITALS: O2SAT 100
[2024-03-06 06:45] VITALS: BP 145/84; TEMP 98.2
== END 2024-03-06 06:38 | disposition home or self-care (01) ==
LOC: ER 05:26 → SUATTDRO 05:26 → ER 06:38
PROVIDERS: ATTEND Emergency Medicine
DX: L03.311 Cellulitis of abdominal wall (principal)
CPT/HCPCS: 99283

== ENCOUNTER 2024-03-15 10:00 | Inpatient (IN) | payer SELFPAY ==
--- OUTSIDE RECORDS SUMMARY | 2024-03-15 10:06 | XMS REPORT | Continuity of Care Document ---
Author Name Unknown Address [address] [facility] [address] [place] [address] [facility] thconnect Address [address] [facility] [address] [place] [address] Care Team Providers Care Director Business Travel Name Role Phone Erik Louie Jr. Primary Care Physician + [phone] Cosme Cardona DO Attending Clinician [phone] Solo CHONG, Lyubov Hilton Attending Clinician [phone] Rosalie Irizarry RN Attending Clinician [phone] Miguel CHONG, Ricky K.H. Attending Clinician + [phone] Umang Reynaga MD Attending Clinician [phone] Jerry Fields DO Attending Clinician [phone] Vimal Quiñones MD Attending Clinician [phone] Jeannette Dawn LVN Attending Clinician + [phone] PARVEZ MONROE Attending Clinician Unavailable Sergio Aponte MD Attending Clinician [phone] Bret Banda MD Attending Clinician [phone] Parvez Monroe MD Attending Clinician [phone] Solo CHONG, Lyubov Hilton Admitting Clinician +[phone] Jerry Fields DO Admitting Clinician [phone] PARVEZ MONROE Admitting Clinician Unavailable Parvez Monroe MD Admitting Clinician Problems Condition Name Condition Details Condition Category Status Onset Date Resolution Date Last Treatment Date Treating Clinician Comments Source Elevated troponin I level Elevated troponin I level Disease Active 08-14 00:00: 00 [facility] Elevated brain natriureti c peptide (BNP) level Elevated brain natriureti c peptide (BNP) level Disease Active 08-14 00:00: 00 [facility] Essential hypertensi on Essential hypertensi on Disease Active 08-14 00:00: 00 [facility] ELIEZER (acute kidney injury) ELIEZER (acute kidney injury) Disease Active 08-14 00:00: 00 [facility] Type 2 diabetes mellitus with other specified complicati on Type 2 diabetes mellitus with other specified complicati on Disease Active 08-14 00:00: 00 [facility] Hypertensi on, unspecifie d type Hypertensi on, unspecifie d type Disease Active 08-13 00:00: 00 [facility] NSTEMI (non-ST elevated myocardial infarction ) NSTEMI (non-ST elevated myocardial infarction ) Disease Active 2022-04 00:00: 00 [facility] Allergies, Adverse Reactions, Alerts Allergy Name Allergy Type Status Severity Reaction(s) Onset Date Inactive Date Treating Clinician Comments Source NO KNOWN ALLERGIE S Drug Class Active [facility] Social History Social Habit Start Date Stop Date Quantity Comments [facility] function 2023-08-23 00:00:00 2023-08-23 00:00:00 [facility] Alcohol intake 2023-08-22 00:00:00 2023-08-22 00:00:00 Lifetime non-drinker (finding) [facility] Tobacco use and exposure 2023-04-21 00:00:00 2023-04-21 00:00:00 Smokeless tobacco non-user [facility] Sex Assigned At 1965 00:00:00 1965 00:00:00 [facility] Smoking Status Start Date Stop Date Source Never smoked tobacco [facility] Medications Ordered Medication Name Filled Medication Name Start Date Stop Date Current Medication? Ordering Clinician Indication Dosage Frequency Signature (SIG) Comments Components Source acarbose 25 mg tablet 08-23 00:00: 00 Yes [id number] 25mg Take 1 tablet by mouth in the morning and 1 tablet at noon and 1 tablet in the evening. Take with meals. [facility] metFORMIN 500 mg 24 hr tablet 08-23 00:00: 09-23 04:59 :00 No [id number] 500mg Take 1 tablet by mouth in the morning and 1 tablet in the evening. Take with meals. Do all this for 30 days. [facility] amLODIPine 10 mg tablet 08-23 00:00: 09-23 04:59 :00 No [id number] 10mg Take 1 tablet by mouth in the morning for 30 days. [facility] tamsulosin 0.4 mg 24 hr capsule 08-23 00:00: 09-23 04:59 :00 No [id number] .4mg Take 1 capsule by mouth in the morning for 30 days. [facility] levoFLOXaci n 500 mg tablet 08-23 00:00: 00 08-26 04:59 :00 No [id number] 500mg Take 1 tablet by mouth every 24 (twenty-fo ur) hours for 2 days. [facility] cefTRIAXone (ROCEPHIN) 1,000 mg in NaCl [...] Urine
D uration of therapy: Once (ED) [facility] D5W IV infusion 1,000 mL 08-22 15:00: 00 08-22 16:53 :22 No 1000mL at 50 mL/hr, IV Infusion, ONCE, 1 dose, On Wed08/23/23 at 1000, Routine [facility] amLODIPine (NORVASC) tablet 5 mg 08-22 14:00: 00 Yes 5mg 5 mg, Oral, DAILY, First dose on Wed08/23/23 at 0900, Until Discontinu ed, Routine [facility] D5W 0.45% NaCl (1/2NS) IV infusion 1,000 mL 08-22 02:29: 00 08-23 17:53 :57 No 1000mL at 75 mL/hr, 1,000 mL, IV Infusion, CONTINUOUS , Starting on Wed08/22/23 at 2130, Until Wed08/24/23 at 1253, Routine [facility] D5W IV infusion 1,000 mL 08-21 21:30: 00 08-22 02:27 :22 No 1000mL at 100 mL/hr, IV Infusion, CONTINUOUS , Starting on Wed08/22/23 at 1630, Until Wed08/22/23 at 2127, Routine [facility] Sliding Scale Insulin - Lispro (HumaLOG) 08-21 21:00: 00 Yes Subcutaneo us, Q4H, First dose on Wed08/22/23 at 1600, Until Discontinu ed, Routine [facility] glucagon (GLUCAGEN DIAGNOSTIC KIT) injection 1 mg 08-21 20:17: 12 Yes 1mg 1 mg, Intramuscu lar, PRN, Starting on Wed08/22/23 at 1517, Until Discontinu ed, HAO, Blood Glucose < or = 70 mg/dL and patient is NPO, unable to swallow or has mental changes. [facility] dextrose 50 % in water (D50W) injection 25 mL 08-21 20:17: 12 Yes 25mL 25 mL, Slow IV Push, PRN, Starting on Wed08/22/23 at 1517, Until Discontinu ed, HAO, Blood Glucose < or = 70 mg/dL and patient is NPO, unable to swallow or has mental status changes. [facility] D5W IV infusion 1,000 mL 08-21 17:45: 00 08-21 20:16 :11 No 1000mL at 100 mL/hr, IV Infusion, CONTINUOUS , Starting on Wed08/22/23 at 1245, Until Wed08/22/23 at 1516, Routine [facility] tamsulosin (FLOMAX) capsule 0.4 mg 08-21 14:00: 00 Yes .4mg 0.4 mg, Oral, DAILY, First dose on Wed08/22/23 at 0900, Until Discontinu ed, Routine [facility] docusate (COLACE) capsule 100 mg 08-21 13:00: 00 Yes 100mg 100 mg, Oral, BID, First dose on Wed08/22/23 at 0800, Until Discontinu ed, Routine [facility] heparin (porcine) injection 5,000 Units 08-21 13:00: 00 Yes 5000U 5,000 Units, Subcutaneo us, Q12H, First dose on Wed08/22/23 at 0800, Until Discontinu ed, Routine [facility] D5W 0.45% NaCl (1/2NS) IV infusion 1,000 mL 08-21 06:15: 00 08-21 16:44 :38 No 1000mL at 100 mL/hr, 1,000 mL, IV Infusion, CONTINUOUS , Starting on Wed08/22/23 at 0115, Until Wed08/22/23 at 1144, Routine [facility] D5W 0.45% NaCl (1/2NS) Bolus infusion 1,000 mL 08-21 06:00: 00 08-21 06:21 :00 No 1000mL at 999 mL/hr, 1,000 mL, IV Infusion, ONCE, 1 dose, On Wed08/22/23 at 0100, Routine [facility] NaCl 0.9% (NS) bolus infusion 1,000 mL 08-21 04:15: 00 08-21 05:05 :00 No 1000mL at 999 mL/hr, 1,000 mL, IV Infusion, ONCE, 1 dose, On 08/21/23 at 2315, STAT [facility] bisacodyL (DULCOLAX) tablet 10 mg 08-21 04:02: 51 Yes 10mg 10 mg, Oral, QDAILYPRN, Starting on 08/21/23 at 2302, Until Discontinu ed, Routine, Constipati on [facility] ondansetron (ZOFRAN (PF)) injection 4 mg 08-21 04:02: 17 Yes 4mg 4 mg, Slow IV Push, Q6HPRN, Starting on 08/21/23 at 2302, Until Discontinu ed, Routine, Nausea and Vomiting (N/V) [facility] FENTanyl PF (SUBLIMAZE (PF)) injection 12.5 mcg 08-21 04:02: 09 08-22 04:01 :09 No 12.5ug 12.5 mcg, Slow IV Push, Q6HPRN, Starting on 08/21/23 at 2302, Until 08/22/23 at 2301, Routine, Pain (scale 7-10), Pain (scale 4-6) [facility] acetaminoph en (TYLENOL) tablet 650 mg 08-21 04:01: 56 Yes 650mg 650 mg, Oral, Q6HPRN, Starting on 08/21/23 at 2301, Until Discontinu ed, Routine, Pain (scale 1-3) [facility] magnesium citrate solution 296 mL 08-21 01:45: 00 08-21 01:25 :00 No 296mL 296 mL, Oral, ONCE, 1 dose, On 08/21/23 at 2045, Routine [facility] amLODIPine 5 mg tablet 08-16 00:00: 00 08-23 00:00 :00 No [id number] 5mg Take 1 tablet by mouth in the morning for 30 days. [facility] lactulose (CEPHULAC) solution 45 mL 08-15 15:45: 00 08-15 15:21 :00 No 45mL 45 mL, Oral, ONCE, 1 dose, On Wed08/16/23 at 1045, Routine [facility] amLODIPine (NORVASC) tablet 5 mg 08-15 14:00: 00 Yes 5mg 5 mg, Oral, DAILY, First dose on Wed08/16/23 at 0900, Until Discontinu ed, Routine [facility] sennosides (SENOKOT) tablet 8.6 mg 08-15 14:00: 00 Yes 8.6mg 8.6 mg, Oral, DAILY, First dose on Wed08/16/23 at 0900, Until Discontinu ed, Routine [facility] losartan (COZAAR) tablet 25 mg 08-15 14:00: 00 Yes 25mg 25 mg, Oral, DAILY, First dose (after last modificati on) on Wed08/16/23 at 0900, Until Discontinu ed, Routine [facility] docusate (COLACE) capsule 100 mg 08-15 13:00: 00 Yes 100mg 100 mg, Oral, BID, First dose on Wed08/16/23 at 0800, Until Discontinu ed, Routine [facility] lactulose (CEPHULAC) solution 30 mL 08-15 10:00: 00 08-15 09:33 :00 No 30mL 30 mL, Oral, ONCE, 1 dose, On Wed08/16/23 at 0500, Routine [facility] metFORMIN 500 mg 24 hr tablet 08-15 00:00: 00 08-23 00:00 :00 No [id number] 500mg Take 1 tablet by mouth in the morning and 1 tablet in the evening. Take with meals. Do all this for 30 days. [facility] acarbose 25 mg tablet 08-15 00:00: 00 08-23 00:00 :00 No [id number] 25mg Take 1 tablet by mouth in the morning and 1 tablet at noon and 1 tablet in the evening. Take with meals. Do all this for 30 days. [facility] pioglitazon e 15 mg tablet 08-15 00:00: 00 08-23 00:00 :00 No [id number] 15mg Take 1 tablet by mouth in the morning for 30 days. [facility] tamsulosin 0.4 mg 24 hr capsule 08-15 00:00: 00 08-23 00:00 :00 No [id number] .4mg Take 1 capsule by mouth in the morning for 30 days. [facility] losartan 25 mg tablet 08-15 00:00: 00 08-23 00:00 :00 No [id number] 25mg Take 1 tablet by mouth in the morning for 30 days. [facility] glipiZIDE (GLUCOTROL) tablet 5 mg 08-14 21:30: 00 Yes 5mg 5 mg, Oral, BIDAC, First dose on 08/15/23 at 1630, Until Discontinu ed, Routine [facility] KCL (KLOR-CON M20) tablet 40 mEq 08-14 21:30: 00 08-14 21:21 :00 No 40meq 40 mEq, Oral, ONCE, 1 dose, On 08/15/23 at 1630, Routine [facility] pioglitazon e (ACTOS) tablet 7.5 mg 08-14 17:00: 00 08-15 12:47 :51 No 7.5mg 7.5 mg, Oral, DAILY, First dose on 08/15/23 at 1200, Until Discontinu ed, Routine [facility] tamsulosin (FLOMAX) capsule 0.4 mg 08-14 15:49: 00 Yes .4mg 0.4 mg, Oral, DAILY, First dose on 08/15/23 at 1100, Until Discontinu ed, Routine [facility] amLODIPine (NORVASC) tablet 10 mg 08-14 14:00: 00 08-14 15:51 :30 No 10mg 10 mg, Oral, DAILY, First dose on 08/15/23 at 0900, Until Discontinu ed, Routine [facility] heparin (porcine) injection 5,000 Units 08-14 03:00: 00 08-14 06:07 :44 No 5000U 5,000 Units, Subcutaneo us, Q8H, First dose on 08/14/23 at 2200, Until Discontinu ed, Routine [facility] Sliding Scale Insulin - Lispro (HumaLOG) 08-14 02:00: 00 08-14 18:06 :14 No Subcutaneo us, TID MEALS+HS, First dose on 08/14/23 at 2100, Until Discontinu ed, Routine [facility] glucagon (GLUCAGEN DIAGNOSTIC KIT) injection 1 mg 08-14 00:36: 37 Yes 1mg 1 mg, Intramuscu lar, PRN, Starting on 08/14/23 at 1936, Until Discontinu ed, HAO, Blood Glucose < or = 70 mg/dL and patient is NPO, unable to swallow or has mental changes. [facility] dextrose 50 % in water (D50W) injection 25 mL 08-14 00:36: 37 Yes 25mL 25 mL, Slow IV Push, PRN, Starting on 08/14/23 at 1936, Until Discontinu ed, HAO, Blood Glucose < or = 70 mg/dL and patient is NPO, unable to swallow or has mental status changes. [facility] acetaminoph en (TYLENOL) tablet 650 mg 08-14 00:36: 24 Yes 650mg 650 mg, Oral, Q6HPRN, Starting on 08/14/23 at 1936, Until Discontinu ed, Routine, Pain (scale 1-3) [facility] aspirin chewable tablet 324 mg 08-13 23:15: 00 08-13 22:56 :00 No [id number] 324mg 324 mg, Oral, ONCE, 1 dose, On 08/14/23 at 1815, HAO [facility] lidocaine 2% viscous (LIDOCAINE VISCOUS) 2 % solution 15 mL 08-13 23:00: 00 08-13 22:10 :00 No [id number] 15mL 15 mL, Oral, ONCE, 1 dose, On 08/14/23 at 1800, Routine [facility] KCL (KLOR-CON M20) tablet 20 mEq 08-13 22:30: 00 08-13 22:59 :00 No [id number] 20meq 20 mEq, Oral, ONCE, 1 dose, On 08/14/23 at 1730, [facility] metoprolol tartrate (LOPRESSOR) tablet 50 mg 08-13 22:00: 00 08-13 22:58 :00 No [id number] 50mg 50 mg, Oral, ONCE, 1 dose, On 08/14/23 at 1700, [facility] iopamidol (ISOVUE 370-500 mL) injection 80 mL 08-13 21:30: 00 08-13 21:45 :00 No [id number] 80mL 80 mL, Intravenou s, ONCE, 1 dose, On 08/14/23 at 1645, Routine [facility] acetaminoph en (TYLENOL) tablet 650 mg 08-13 21:15: 00 08-13 22:57 :00 No [id number] 650mg 650 mg, Oral, ONCE, 1 dose, On 08/14/23 at 1615, [facility] amLODIPine (NORVASC) tablet 5 mg 08-13 21:15: 00 08-13 22:58 :00 No [id number] 5mg 5 mg, Oral, ONCE, 1 dose, On 08/14/23 at 1615, [facility] NaCl 0.9% (NS) bolus infusion 1,000 mL 08-13 21:15: 00 08-13 21:50 :00 No [id number] 1000mL at 999 mL/hr, 1,000 mL, IV Infusion, ONCE, 1 dose, On 08/14/23 at 1615, [facility] insulin NPH (HUMULIN N) injection 9 Units 2022-04 14:00: 00 Yes 9U 9 Units, Subcutaneo us, QAM WITH BREAKFAST, First dose (after last modificati on) on Wed04/24/23 at 0800, Until Discontinu ed, Routine [facility] losartan 25 mg tablet 2022-04 00:00: 00 08-15 00:00 :00 No [id number] 25mg Take 1 tablet by mouth in the morning. [facility] tamsulosin (FLOMAX) 0.4 mg 24 hr capsule 2022-04 00:00: 00 08-15 00:00 :00 No [id number] .4mg Take 1 capsule by mouth in the morning. [facility] metFORMIN 500 mg tablet 2022-04 00:00: 00 05-23 05:59 :00 No [id number] Take 1 tablet by mouth 2 (two) times daily with meals for 7 days, THEN 2 tablets 2 (two) times daily with meals for 21 days. [facility] insulin lispro (human) (HumaLOG U-100) injection 3 Units 2022-04 23:00: 00 Yes 3U 3 Units, Subcutaneo us, TID MEALS, First dose (after last modificati on) on Wed04/23/23 at 1700, Until Discontinu ed, Routine [facility] insulin NPH (HUMULIN N) injection 5 Units 2022-04 23:00: 00 Yes 5U 5 Units, Subcutaneo us, QPM, First dose (after last modificati on) on Wed04/23/23 at 1700, Until Discontinu ed, Routine [facility] losartan (COZAAR) tablet 25 mg 2022-04 15:00: 00 Yes 25mg 25 mg, Oral, DAILY, First dose on Wed04/23/23 at 0900, Until Discontinu ed, Routine [facility] Potassium Bicarb-Citr ic Acid (EFFER-K) effervescen t tablet 40 mEq 2022-04 13:00: 00 04-23 13:33 :00 No 40meq 40 mEq, Oral, ONCE, 1 dose, On Wed04/23/23 at 0700, Routine [facility] ramelteon (ROZEREM) tablet 8 mg 2022-04 10:45: 00 04-23 10:51 :00 No 8mg 8 mg, Oral, ONCE NOW, 1 dose, On Wed04/23/23 at 0500, Routine [facility] Blood-Gluco se Meter (ACCU-CHEK GUIDE GLUCOSE METER) [facility] 2022-04 00:00: 00 Yes [id number] Use as directed [facility] lancets 33 gauge [facility] 2022-04 00:00: 00 Yes [id number] Use as directed [facility] blood sugar diagnostic (ACCU-CHEK GUIDE TEST STRIPS) strip 2022-04 00:00: 00 Yes [id number] Use as directed [facility] pioglitazon e 15 mg tablet 2022-04 00:00: 00 08-15 00:00 :00 No [id number] 7.5mg Take 0.5 tablets by mouth in the morning. [facility] acarbose 25 mg tablet 2022-04 00:00: 00 08-15 00:00 :00 No [id number] 25mg Take 1 tablet by mouth in the morning and 1 tablet at noon and 1 tablet in the evening. Take with meals. [facility] atorvastati n 80 mg tablet 2022-04 00:00: 00 05-24 05:59 :00 No [id number] 80mg Take 1 tablet by mouth at bedtime for 30 days. [facility] glipiZIDE 5 mg tablet 2022-04 00:00: 00 05-24 05:59 :00 No [id number] 5mg Take 1 tablet by mouth 2 (two) times daily before breakfast and dinner for 30 days. [facility] enoxaparin (LOVENOX) injection 40 mg 2022-04 15:00: 00 Yes 40mg 40 mg, Subcutaneo us, DAILY, First dose on Wed04/22/23 at 0900, Until Discontinu ed, Routine [facility] insulin NPH (HUMULIN N) injection 8 Units 2022-04 14:00: 00 04-23 19:10 :37 No 8U 8 Units, Subcutaneo us, QAM WITH BREAKFAST, First dose on Wed04/22/23 at 0800, Until Discontinu ed, Routine [facility] insulin NPH (HUMULIN N) injection 4 Units 2022-04 23:00: 00 04-23 19:10 :37 No 4U 4 Units, Subcutaneo us, QPM, First dose on Wed04/21/23 at 1700, Until Discontinu ed, [facility] lis[facility] (human[facility] (HumaLOG U-100) injection 2 Units 2022-04 23:00: 00 04-23 19:10 :37 No 2U 2 Units, Subcutaneo us, TID MEALS, First dose (after last modificati on) on Wed04/21/23 at 1700, Until Discontinu ed, Routine [facility] NaCl 0.9% (NS) IV infusion 250 mL 2022-04 21:15: 00 04-22 20:03 :10 No [id number] 250mL at 20 mL/hr, IV Infusion, CONTINUOUS , Starting on Wed04/21/23 at 1515, Until Wed04/22/23 at 1403, Routine
To keep vein open
[facility] perflutren lipid microsphere s (DEFINITY) injection 2 mL 2022-04 21:00: 00 04-21 20:15 :00 No [id number] 2mL 2 mL, IV Push, ONCE, 1 dose, On Wed04/21/23 at 1500, Routine [facility] atropine injection 1 mg 2022-04 21:00: 00 04-21 20:44 :00 No [id number] 1mg 1 mg, Slow IV Push, ONCE, 1 dose, On Wed04/21/23 at 1500, Routine [facility] DOBUTamine (DOBUTREX) 250 mg/250 mL RTU infusion 2022-04 20:13: 51 04-22 20:03 :10 No [id number] 5ug/kg/ min 5 mcg/kg/min ?59 kg (17.7 [...] the Dobutamine infusion. (see Adjunctive Therapy)<b r> [facility] perflutren protein-A microsphr (OPTISON) injection 3 mL 2022-04 17:15: 00 04-21 15:22 :00 No [id number] 3mL 3 mL, IV Push, ONCE, 1 dose, On Wed04/21/23 at 1115, Routine [facility] potassium chloride in water 10 mEq/100 mL RTU 10 mEq 2022-04 17:00: 00 04-21 20:59 :00 No 10meq 10 mEq, IV Piggyback, Q1H, 4 doses, First dose (after last reorder) on Wed04/21/23 at 1100, Last dose on Wed04/21/23 at 1400, Administer over 60 Minutes, 100 mL [facility] tamsulosin (FLOMAX) capsule 0.4 mg 2022-04 15:00: 00 Yes .4mg 0.4 mg, Oral, DAILY, First dose on Wed04/21/23 at 0900, Until Discontinu ed, Routine [facility] aspirin chewable tablet 81 mg 2022-04 15:00: 00 04-22 16:28 :38 No 81mg 81 mg, Oral, DAILY, First dose on Wed04/21/23 at 0900, Until Discontinu ed, Routine [facility] aspirin tablet 325 mg 2022-04 15:00: 00 04-21 06:21 :21 No 325mg 325 mg, Oral, DAILY, First dose on Wed04/21/23 at 0900, Until Discontinu ed, Routine [facility] Sliding Scale Insulin - Lispro (HumaLOG) 2022-04 14:00: 00 Yes Subcutaneo us, TID MEALS+HS, First dose on Wed04/21/23 at 0800, Until Discontinu ed, Routine [facility] magnesium sulfate in water 2 gram/50 mL (4 %) infusion 2 g 2022-04 12:30: 00 04-21 15:11 :00 No 2g 2 g, IV Piggyback, Administer over 60 Minutes, ONCE, 1 dose, On Wed04/21/23 at 0630, Routine [facility] Potassium Bicarb-Citr ic Acid (EFFER-K) effervescen t tablet 40 mEq 2022-04 12:30: 00 04-21 12:36 :00 No 40meq 40 mEq, Oral, ONCE, 1 dose, On Wed04/21/23 at 0630, [facility] glargine (LANTUS U-100) injection 9 Units 2022-04 07:45: 00 04-21 21:08 :08 No .15U/kg /d 9 Units (rounded from 8.745 Units = 0.15 Units/kg/d ay ?58.3 kg), Subcutaneo us, QHS, First dose (after last modificati on) on Wed04/21/23 at 0145, Until Discontinu ed, Routine [facility] atorvastati n (LIPITOR) tablet 80 mg 2022-04 06:30: 00 Yes 80mg 80 mg, Oral, QHS, First dose on Wed04/21/23 at 0030, Until Discontinu ed, Routine [facility] dextrose 50 % in water (D50W) injection 25 mL 2022-04 06:24: 50 Yes 25mL 25 mL, Slow IV Push, PRN, Starting on Wed04/21/23 at 0024, Until Discontinu ed, HAO, Blood Glucose < or = 70 mg/dL and patient is NPO, unable to swallow or has mental status changes. [facility] acetaminoph en (TYLENOL) tablet 650 mg 2022-04 05:53: 21 Yes 650mg 650 mg, Oral, Q6HPRN, Starting on Wed04/20/23 at 2353, Until Discontinu ed, Routine, Pain (scale 1-3) [facility] NaCl 0.9% (NS) bolus infusion 1,000 mL 2022-04 04:00: 00 04-21 03:45 :00 No 1000mL at 999 mL/hr, 1,000 mL, IV Infusion, ONCE, 1 dose, On Wed04/20/23 at 2200, STAT [facility] clopidogreL (PLAVIX) 300 mg tablet 300 mg 2022-04 03:30: 00 04-21 02:50 :00 No 300mg 300 mg, Oral, ONCE, 1 dose, On Wed04/20/23 at 2130, HAO [facility] HEPARIN SODIUM (PORCINE) 1,000 UNIT/ML BOLUS ACS ORDER SET 2022-04 02:45: 00 04-21 02:53 :00 No 60U/kg 3,540 Units (60 Units/kg ?59 kg), IV Push, ONCE, 1 dose, On Wed04/20/23 at 2044, HAO [facility] heparin 25,000 Units/250 mL (Premixed Bag) [...] INITIAL BOLUS OR INITIAL INFUSION RATE.
[facility] Vital Signs Vital Name Observation Time Observation Value Comments S ource Systolic blood pressure 2023-08-24 13:02:00 150 mm[Hg] [facility] Diastolic blood pressure 2023-08-24 13:02:00 88 mm[Hg] [facility] Heart rate 2023-08-24 13:02:00 79 /min [facility] Body temperature 2023-08-24 13:02:[address] [facility] Respiratory rate 2023-08-24 13:02:00 14 /min [facility] Oxygen saturation in Arterial blood by Pulse oximetry 2023-08-24 13:02:00 98 /min [facility] Body weight 2023-08-24 08:43:00 58.469 kg [facility] BMI 2023-08-24 08:43:00 22.83 kg/m2 [facility] Body height 2023-08-22 04:52:00 160 cm [facility] Systolic blood pressure 2023-08-16 16:53:00 154 mm[Hg] [facility] Diastolic blood pressure 2023-08-16 16:53:00 94 mm[Hg] [facility] Heart rate 2023-08-16 16:53:00 82 /min [facility] Body temperature 2023-08-16 16:53:[address] [facility] Respiratory rate 2023-08-16 16:53:00 16 /min [facility] Oxygen saturation in Arterial blood by Pulse oximetry 2023-08-16 16:53:00 99 /min [facility] Body weight 2023-08-16 09:56:00 56.473 kg [facility] BMI 2023-08-16 09:56:00 22.05 kg/m2 [facility] Body height 2023-08-15 04:07:00 160 cm [facility] Systolic blood pressure 2023-04-23 18:11:00 141 mm[Hg] [facility] Diastolic blood pressure 2023-04-23 18:11:00 80 mm[Hg] [facility] Heart rate 2023-04-23 18:11:00 101 /min [facility] Body temperature 2023-04-23 18:11:[address] [facility] Respiratory rate 2023-04-23 18:11:00 18 /min [facility] Oxygen saturation in Arterial blood by Pulse oximetry 2023-04-23 18:11:00 98 /min [facility] Body weight 2023-04-22 09:57:00 57.561 kg [facility] BMI 2023-04-22 09:57:00 22.48 kg/m2 [facility] Body height 2023-04-21 20:00:00 160 cm [facility] Procedures Procedure Date / Time Performed Performing Clinician Source POCT GLUCOSE (AUTOMATED) 2023-08-24 16:13:[address] [facility] POCT GLUCOSE (AUTOMATED) 2023-08-24 12:34:[address] [facility] BASIC METABOLIC PANEL (NA, K, CL, CO2, GLUCOSE, BUN, CREATININE, CA) 2023-08-24 08:42:[address] [facility] CBC WITH DIFF 2023-08-24 08:42:00 Jerry Fields [facility] POCT GLUCOSE (AUTOMATED) 2023-08-24 05:46:[address] [facility] BASIC METABOLIC PANEL (NA, K, CL, CO2, GLUCOSE, BUN, CREATININE, CA) 2023-08-24 01:37:[address] [facility] POCT GLUCOSE (AUTOMATED) 2023-08-24 01:27:[address] [facility] POCT GLUCOSE (AUTOMATED) 2023-08-23 21:29:[address] [facility] BASIC METABOLIC PANEL (NA, K, CL, CO2, GLUCOSE, BUN, CREATININE, CA) 2023-08-23 17:41:[address] [facility] POCT GLUCOSE (AUTOMATED) 2023-08-23 16:42:[address] [facility] POCT GLUCOSE (AUTOMATED) 2023-08-23 12:36:[address] [facility] POCT GLUCOSE (AUTOMATED) 2023-08-23 09:09:[address] [facility] MAGNESIUM 2023-08-23 08:23:00 Jerry Fields [facility] BASIC METABOLIC PANEL (NA, K, CL, CO2, GLUCOSE, BUN, CREATININE, CA) 2023-08-23 08:23:[address] [facility] CBC WITH DIFF 2023-08-23 08:23:00 Jerry Fields [facility] POCT GLUCOSE (AUTOMATED) 2023-08-23 04:52:[address] [facility] POCT GLUCOSE (AUTOMATED) 2023-08-23 00:42:[address] [facility] BASIC METABOLIC PANEL (NA, K, CL, CO2, GLUCOSE, BUN, CREATININE, CA) 2023-08-23 00:38:[address] [facility] POCT GLUCOSE (AUTOMATED) 2023-08-22 21:18:[address] [facility] URIC ACID 2023-08-22 19:21:00 Alyssa Cain [facility] PROTEIN CREAT RATIO URINE RANDOM 2023-08-22 19:21:[address] [facility] CORTISOL AM 2023-08-22 19:20:[address] [facility] BASIC METABOLIC PANEL (NA, K, CL, CO2, GLUCOSE, BUN, CREATININE, CA) 2023-08-22 13:21:[address] [facility] LACTIC ACID WHOLE BLOOD 2023-08-22 09:16:[address] [facility] MAGNESIUM 2023-08-22 08:30:[address] [facility] TROPONIN I 2023-08-22 08:30:[address] [facility] CBC WITH DIFF 2023-08-22 08:30:00 [facility]-BNP 2023-08-22 08:30:[address] [facility] PHOSPHORUS 2023-08-22 04:01:[address] [facility] BASIC METABOLIC PANEL (NA, K, CL, CO2, GLUCOSE, BUN, CREATININE, CA) 2023-08-22 04:01:[address] [facility] URINALYSIS 2023-08-22 01:52:00 Cosme Cardona [facility] CT ABDOMEN PELVIS WO CONTRAST 2023-08-22 01:26:[address] [facility] CREATINE KINASE 2023-08-22 01:24:[address] [facility] LIPASE 2023-08-22 01:24:00 [facility] COMP. METABOLIC PANEL (53130) 2023-08-22 01:24:00 Singer [facility] CBC WITH DIFF 2023-08-22 01:24:00 Singer [facility] POCT GLUCOSE (AUTOMATED) 2023-08-16 21:51:00 Yue Fields [facility] POCT GLUCOSE (AUTOMATED) 2023-08-16 16:54:00 Yue Fields [facility] POCT GLUCOSE (AUTOMATED) 2023-08-16 12:45:00 Yue Fields [facility] POCT GLUCOSE (AUTOMATED) 2023-08-16 02:06:00 Yue Fields [facility] POCT GLUCOSE (AUTOMATED) 2023-08-15 21:29:00 Yue Fields [facility] POCT GLUCOSE (AUTOMATED) 2023-08-15 16:39:00 Yue Fields [facility] POCT GLUCOSE (AUTOMATED) 2023-08-15 13:08:00 Yue Fields [facility] TROPONIN I 2023-08-15 10:41:00 Juventino [facility] BASIC METABOLIC PANEL (NA, K, CL, CO2, GLUCOSE, BUN, CREATININE, CA) 2023-08-15 10:41:00 [facility] CBC WITH DIFF 2023-08-15 10:41:00 Juventino [facility] PROSTATIC SPECIFIC ANTIGEN 2023-08-15 05:32:[address] [facility]23-08-15 05:32[facility]00 [facility] 2023-08-15 04:03:00 Yue Fields [facility] URINALYSIS 2023 22:15:00 Umang Reynaga [facility] XR CHEST 1 VW 2023 21:46:[address] [facility] CT ABDOMEN PELVIS W CONTRAST 2023 21:34:55 Rosmery [facility] CT TRAUMA HEAD WO CONTRAST 2023 21:33:20 Rosmery [facility] HB ECG ROUTINE & RHYTHM STRIP 2023 21:10:12 Rosmery [facility] PHOSPHORUS 2023 20:47:00 Rosmery [facility] CREATINE KINASE 2023 20:47:00 [facility]ang [facility] LIP[facility] 2023 20:47:00 Rosmery [facility] MAGNESIUM 2023 20:47:00 Rosmery [facility] BETA HYDROXY-BUTYRATE 2023 20:47:[address] [facility] TROPONIN I 2023 20:47:00 [facility] COMP. METABOLIC PANEL (19641) 2023 20:47:00 Rosmery [facility] CBC WITH DIFF 2023 20:47:[address] [facility] GLYCOSYLATED HEMOGLOBIN (A1C) 2023 20:47:[address] [facility] N-TERMINAL PRO-BNP 2023 20:47:[address] [facility] ACUTE CARE VENOUS BLOOD GAS 2023 20:46:00 Rosmery [facility] LACTIC ACID WHOLE BLOOD 2023 20:46:[address] [facility] POCT GLUCOSE(AGE >30DAYS) 2023 20:26:00 Rosmery [facility] POCT GLUCOSE (AUTOMATED) 2023 20:23:00 Rosmery [facility] POCT GLUCOSE (AUTOMATED) 2023-04-23 18:09:[address] [facility] POCT GLUCOSE (AUTOMATED) 2023-04-23 15:32:[address] [facility] MAGNESIUM 2023-04-23 09:09:00 Loghin, [facility]t [facility] BASIC METABOLIC PANEL (NA, K, CL, CO2, GLUCOSE, BUN, CREATININE, CA) 2023-04-23 09:09:[address] [facility] POCT GLUCOSE (AUTOMATED) 2023-04-23 02:56:00 Brien Banda [facility] POCT GLUCOSE (AUTOMATED) 2023-04-23 00:32:00 [facility] POCT GLUCOSE (AUTOMATED) 2023-04-22 22:43:00 Solo [facility] POCT GLUCOSE (AUTOMATED) 2023-04-22 20:36:00 Solo [facility] POCT GLUCOSE (AUTOMATED) 2023-04-22 17:44:00 [facility] POCT GLUCOSE (AUTOMATED) 2023-04-22 13:41:00 Solo [facility] MAGNESIUM 2023-04-22 10:37:[address] [facility] BASIC METABOLIC PANEL (NA, K, CL, CO2, GLUCOSE, BUN, CREATININE, CA) 2023-04-22 10:37:[address] [facility] CBC WITH DIFF 2023-04-22 10:37:[address] [facility] POCT GLUCOSE (AUTOMATED) 2023-04-22 03:32:00 [facility] POCT GLUCOSE (AUTOMATED) 2023-04-22 01:34:00 [facility] COMPLETE ECHOCARDIOGRAM DOBUTAMINE STRESS TEST W CONTRAST 2023-04-21 21:15:[address] [facility] POCT GLUCOSE (AUTOMATED) 2023-04-21 17:36:00 [facility] ACTIVATED PARTIAL THRMPLAS JERMAINE 2023-04-21 16:47:[address] [facility] TRANSTHORACIC ECHO (TTE) COMPLETE W/ CONTRAST 2023-04-21 15:26:[address] [facility] TROPONIN I 2023-04-21 12:39:[address] Fuchs Noel [facility] POCT GLUCOSE (AUTOMATED) 2023-04-21 09:39:[address] [facility] MAGNESIUM 2023-04-21 09:10:[address] [facility] BASIC METABOLIC PANEL (NA, K, CL, CO2, GLUCOSE, BUN, CREATININE, CA) 2023-04-21 09:10:[address] [facility] LIPID PANEL (02044)(TOTAL CHOLESTEROL, TRIGLYCERIDES, HDL) 2023-04-21 09:10:[address] [facility] CBC WITH DIFF 2023-04-21 09:10:00 Víctor Fuchs [facility] ACTIVATED PARTIAL THRMPLAS JERMAINE 2023-04-21 09:10:[address] [facility] XR CHEST 1 VW 2023-04-21 06:53:47 Víctor Fuchs bentonyue [facility] TROPONIN I 2023-04-21 06:32:00 Víctor Fuchs bentonyue Noel [facility] IRON PANEL 2023-04-21 06:32:00 Víctor Fuchs bentonyue [facility] N-TERMINAL PRO-BNP 2023-04-21 06:32:[address] [facility] CRITICAL CARE 2023-04-21 02:54:15 Sergio Aponte [facility] PROTHROMBIN TIME / INR 2023-04-21 02:44:[address] [facility] ACTIVATED PARTIAL THRMPLAS JERMAINE 2023-04-21 02:44:[address] [facility] URINALYSIS 2023-04-21 02:33:00 Sergio Aponte [facility] PROTEIN CREAT RATIO URINE RANDOM 2023-04-21 02:33:[address] [facility] URINE DRUG (IMMUNOASSAY) - COMPREHENSIVE DRUG SCREEN W/O REFLEX 2023-04-21 02:33:[address] [facility] PHOSPHORUS 2023-04-21 01:55:[address] [facility] FERRITIN SERUM 2023-04-21 01:55:[address] [facility] TROPONIN I 2023-04-21 01:55:00 [facility] THYROID STIMULATING HORMONE 2023-04-21 01:55:[address] [facility] COMP. METABOLIC PANEL (25005) 2023-04-21 01:55:[address] [facility] ETHANOL 2023-04-21 01:55:00 [facility] CBC WITH DIFF 2023-04-21 01:55:00 Sergio Aponte [facility] GLYCOSYLATED HEMOGLOBIN (A1C) 2023-04-21 01:55:00 Kylie Fuchs [facility] POCT GLUCOSE (AUTOMATED) 2023-04-21 01:54:[address] [facility] EKG-12 LEAD 2023-04-21 01:51:41 [facility] Start Date/Time End Date/Time Encounter Type Admission Type Attending Clinicians Care Facility Care Department Encounter ID Source 2023-08-21 19:47:00 2023-08-24 16:32:00 Hospital Encounter Cosme Cardona [facility] 1..840.114 350.1.13.10 4.2.7.2.686 [id number] [facility] 2023-08-20 00:00:00 2023-08-20 00:00:00 Patient Outreach Rosalie Irizarry [id number] 350.1.13.10 4.2.7.2.686 [id number] [facility] 2023-08-17 00:00:00 2023-08-17 00:00:00 Telephone Ricky Rivera [facility] 1.2840.114 350.1.13.10 4.2.7.2.686 [id number] [facility] 2023 14:42:00 2023-08-16 18:40:00 Hospital Encounter Umang Reynaga [place], Jelani [facility] [id number] 350.1.13.10 4.2.7.2.686 [id number] [facility] 2023-04-27 00:00:00 2023-04-27 00:00:00 Transition of Care Jeannette Dawn JANIS BAEZ 1.2840.114 350.1.13.10 4.2.7.2.686 [id number] [facility] 2023-04-20 19:48:00 2023-04-23 19:54:00 Inpatient X PAR[facility] [id number] [facility] 2023-04-20 19:48:00 2023-04-23 19:54:00 Hospital Encounter Sergio Aponte Rizwan Dacso, Matthew M [facility] [id number] 350.1.13.10 4.2.7.2.686 [id number] [facility] Results Test Description Test Time Test Comments Results Result Co mments Source [facility]2023-08-24 12:35:27* Test Item Value Reference Range Interpretation Comme nts POCT GLU (test code = 6697779250) 204 mg/dL 70-110 H Lab Interpretation (test cod e = 27045-5) Abnormal [facility] (NA, K, CL, CO2, GLUCOSE, BUN, CREATININE, CA)2023-08-24 09:45:39* Test Item Value Reference Range Interpretation Comme nts NA (test code = 6906798123) 133 mmol/L 135-145 L K (test code = 7049518378) 3.7 mmol/L 3.5-5.0 CL (test code = 1741713049) 98 mmol/L 98-108 CO2 TOTAL (test code = 4883019317) 27 mmol/L 23-31 AGAP (test code = 3682163575) 8 2-16 BUN (test code = 9106648089) 13 mg/dL 7-23 GLUCOSE (test code = 1881816811) 188 mg/dL 70-110 H CREATININE (test code = 2160-0) 0.63 mg/dL 0.60-1.25 CALCIUM (test code = 5120240315) 9.4 mg/dL 8.6-10.6 eGFR (test code = 05485-5) 111.6 mL/min/1.73m2 CKD-EPI eGFR (2020). Assuming creatinine has been stable day-to-day for at least three months, the eGFR indicates Category G1 (>= 90 mL/min/1.73 m2) Lab Interpretation (test code = 39644-5) Abnormal [facility] with [id number] 09:21:26* Test Item Value Reference Range Interpretation [...] g/dL 31.2-35.0 H RDW-SD (test code = 77324-0) 36.9 fL 38.5-51.6 L RDW-CV (test code = 788-0) 11.6 % 12.1-15.4 L PLT (test code = 777-3) 407 150-328 H MPV (test code = 00540-5) 9.5 fL 9.8-13.0 L NRBC/100 WBC (test code = 3961240153) 0.0 0.0-10.0 NRBC x10^3 (test code = 4497404120) See_Comment [Automated messa ge] The system which generated this result transmitted reference range: 10*3/?L. The reference range was not used to interpret this result as normal/abnormal. GRAN MAT (NEUT) % (test code = 770-8) 63.1 % IMM GRAN % (test code = 7777566409) 0.30 % LYMPH % (test code = 736-9) 21.1 % MONO % (test code = 5905-5) 8.3 % EOS % (test code = 713-8) 6.5 % BASO % (test code = 706-2) 0.7 % GRAN MAT x10^3(ANC) (test code = 0148577962) 3.71 10*3/uL 1.99-6.95 IMM GRAN x10^3 (test code = 1204677435) 0.00-0.06 LYMPH x10^3 (test code = 731-0) 1.24 10*3/uL 1.09-3.23 MONO x10^3 (test code = 742-7) 0.49 10*3/uL 0.36-1.02 EOS x10^3 (test code = 711-2) 0.38 10*3/uL 0.06-0.53 BASO x10^3 (test code = 704-7) 0.04 10*3/uL 0.01-0.09 Lab Interpretation (test code = 61248-1) Abnormal [facility]2023-08-24 05:47:46* Test Item Value Reference Range Interpretation Comme nts POCT GLU (test code = 2340242391) 126 mg/dL 70-110 H Lab Interpretation (test cod e = 96692-8) Abnormal [facility] Metabolic Panel (NA, K, CL, CO2, GLUCOSE, BUN, CREATININE, CA)2023-08-24 02:27:27* Test Item Value Reference Range Interpretation Comme nts NA (test code = 6345497847) 129 mmol/L 135-145 L K (test code = 3540893838) 3.9 mmol/L 3.5-5.0 CL (test code = 3425535209) 96 mmol/L 98-108 L CO2 TOTAL (test code = 5002257299) 29 mmol/L 23-31 AGAP (test code = 6309218283) 4 2-16 BUN (test code = 8424477394) 14 mg/dL 7-23 GLUCOSE (test code = 9475123157) 185 mg/dL 70-110 H CREATININE (test code = 2160-0) 0.56 mg/dL 0.60-1.25 L CALCIUM (test code = 0758777628) 9.2 mg/dL 8.6-10.6 eGFR (test code = 43486-8) 115.7 mL/min/1.73m2 CKD-EPI eGFR (2020). Assuming creatinine has been stable day-to-day for at least three months, the eGFR indicates Category G1 (>= 90 mL/min/1.73 m2) Lab Interpretation (test code = 73774-2) Abnormal [facility] GLUCOSE (AUTOMATED)2023-08-24 01:28:28* Test Item Value Reference Range Interpretation Comme nts POCT GLU (test code = 4831640277) 210 mg/dL 70-110 H Lab Interpretation (test cod e = 99785-4) Abnormal [facility] GLUCOSE (AUTOMATED)2023-08-23 21:30:04* Test Item Value Reference Range Interpretation Comme nts POCT GLU (test code = 6685804861) 149 mg/dL 70-110 H Lab Interpretation (test cod e = 23651-5) Abnormal [facility] GLUCOSE (AUTOMATED)2023-08-23 16:45:20* Test Item Value Reference Range Interpretation Comme nts POCT GLU (test code = 3815550195) 147 mg/dL 70-110 H Lab Interpretation (test cod e = 06108-1) Abnormal [facility] GLUCOSE (AUTOMATED)2023-08-23 12:36:56* Test Item Value Reference Range Interpretation Comme nts POCT GLU (test code = 1289404847) 131 mg/dL 70-110 H Lab Interpretation (test cod e = 24378-2) Abnormal [facility] GLUCOSE (AUTOMATED)2023-08-23 09:17:23* Test Item Value Reference Range Interpretation Comme nts POCT GLU (test code = 3523192864) 154 mg/dL 70-110 H Lab Interpretation (test cod e = 66518-0) Abnormal [facility] GLUCOSE (AUTOMATED)2023-08-23 05:03:01* Test Item Value Reference Range Interpretation Comme nts POCT GLU (test code = 6296549848) 183 mg/dL 70-110 H Lab Interpretation (test cod e = 58889-6) Abnormal [facility] Metabolic Panel (NA, K, CL, CO2, GLUCOSE, BUN, CREATININE, CA)2023-08-23 01:49:58* Test Item Value Reference Range Interpretation Comme nts NA (test code = 1490795788) 132 mmol/L 135-145 L K (test code = 6020736285) 4.1 mmol/L 3.5-5.0 CL (test code = 5197374193) 101 mmol/L 98-108 CO2 TOTAL (test code = 5580197924) 28 mmol/L 23-31 AGAP (test code = 6054778750) 3 2-16 BUN (test code = 8425612068) 17 mg/dL 7-23 GLUCOSE (test code = 8363779146) 149 mg/dL 70-110 H CREATININE (test code = 2160-0) 0.97 mg/dL 0.60-1.25 CALCIUM (test code = 8520045652) 8.4 mg/dL 8.6-10.6 L eGFR (test code = 06843-5) 91.6 mL/min/1.73m2 CKD-EPI eGFR (2020). Assuming creatinine has been stable day-to-day for at least three months, the eGFR indicates Category G1 (>= 90 mL/min/1.73 m2) Lab Interpretation (test code = 20595-5) Abnormal [facility] GLUCOSE (AUTOMATED)2023-08-23 00:43:06* Test Item Value Reference Range Interpretation Comme nts POCT GLU (test code = 9164472193) 126 mg/dL 70-110 H Lab Interpretation (test cod e = 19751-6) [facility]normal [facility] [id number] 22:59:03* Test Item Value Reference Range Interpretation Comme nts IBRAHIMA AM (test code = 1881787741) 24.7 ug/dL 4.5-23.0 H GINA (test code = GINA) Biotin has been reported to cause a positive bias, interpret results relative to patient's use of biotin. Lab Interpretation (test code = 09893-2) Abnormal [facility]2023-08-22 21:29:10* Test Item Value Reference Range Interpretation Comme [facility] POCT GLU (test code = 3182814592) 341 mg/dL 70-110 H Lab Interpretation (test cod e = 58249-2) Abnormal [facility] Center[facility]ric [id number] 19:53:59* Test Item Value Reference Range Interpretation Comme [facility] URIC ACID (test code = 7530692501) 6.4 mg/dL 3.6-8.0 Lab Interpretation (test cod e = 70829-8) Normal [facility] Metabolic Panel (NA, K, CL, CO2, GLUCOSE, BUN, CREATININE, CA)2023-08-22 14:43:15* Test Item Value Reference Range Interpretation Comme nts NA (test code = 7026650670) 138 mmol/L 135-145 K (test code = 0083025250) 4.6 mmol/L 3.5-5.0 CL (test code = 2588106830) 102 mmol/L 98-108 CO2 TOTAL (test code = 5783320316) 28 mmol/L 23-31 AGAP (test code = 8396998963) 8 2-16 BUN (test code = 1622728060) 34 mg/dL 7-23 H GLUCOSE (test code = 5217764073) 224 mg/dL 70-110 H CREATININE (test code = 2160-0) 1.89 mg/dL 0.60-1.25 H CALCIUM (test code = 8126224102) 9.4 mg/dL 8.6-10.6 eGFR (test code = 32940-2) 41.1 mL/min/1.73m2 CKD-EPI eGFR (2020). Assuming creatinine has been stable day-to-day for at least three months, the eGFR indicates Category G3b (30 - 44 mL/min/1.73 m2) Lab Interpretation (test code = 73110-5) Abnormal [facility] Center[facility]ine [id number] 14:42:45* Test Item Value Reference Range Interpretation Comme nts CK (test code = 0773364587) 224 U/L 33-194 H Lab Interpretation (test cod e = 20729-8) Abnormal [facility] CenterPhosphorus [id number] 12:10:01* Test Item Value Reference Range Interpretation Comme nts PHOSPHORUS (test code = 1004917145) 5.8 mg/dL 2.5-5.0 H Lab Interpretation (test cod e = 13269-0) Abnormal [facility] Met[facility] (NA, K, CL, CO2, GLUCOSE, BUN, CREATININE, CA)2023-08-22 04:41:19* Test Item Value Reference Range Interpretation Comme nts NA (test code = 2387522738) 124 mmol/L 135-145 L K (test code = 2203335847) 4.7 mmol/L 3.5-5.0 CL (test code = 1468980979) 93 mmol/L 98-108 L CO2 TOTAL (test code = 9778294713) 18 mmol/L 23-31 L AGAP (test code = 4671180019) 13 2-16 BUN (test code = 7956559639) 68 mg/dL 7-23 H GLUCOSE (test code = 5747097909) 116 mg/dL 70-110 H CREATININE (test code = 2160-0) 6.60 mg/dL 0.60-1.25 H CALCIUM (test code = 3169943733) 9.0 mg/dL 8.6-10.6 eGFR (test code = 12653-4) 9.2 mL/min/1.73m2 CKD-EPI eGFR (2020). Assuming creatinine has been stable day-to-day for at least three months, the eGFR indicates Category G5 (<= 14mL/min/1.73 m2) Lab Interpretation (test code = 21385-6) Abnormal [facility] P[facility] WO [id number] 02:22:05Exam: CT Abdomen and Pelvis without Contrast, [...] osseous finding. Subacute/chronic left-sided rib fractures.Soft tissues: Unremarkable.[facility]. Metabolic Panel (95172) 2023-08-22 02:21:33* Test Item Value Reference Range Interpretation Comme nts NA (test code = 5620489439) 120 mmol/L 135-145 L K (test code = 3233065869) 4.8 mmol/L 3.5-5.0 CL (test code = 0025708226) 85 mmol/L 98-108 L CO2 TOTAL (test code = 4421616417) 21 mmol/L 23-31 L AGAP (test code = 4659907338) 14 2-16 BUN (test code = 6643343933) 70 mg/dL 7-23 H GLUCOSE (test code = 6671670493) 97 mg/dL 70-110 CREATININE (test code = 2160-0) 8.39 mg/dL 0.60-1.25 H TOTAL BILI (test code = 0849574841) 0.7 mg/dL 0.1-1.1 CALCIUM (test code = 0715386105) 8.8 mg/dL 8.6-10.6 T PROTEIN (test code = 5829878936) 7.2 g/dL 6.3-8.2 ALBUMIN (test code = 5696753428) 4.1 g/dL 3.5-5.0 ALK PHOS (test code = 7413866931) 95 U/L 34-122 ALTv (test code = 1742-6) 12 U/L 5-50 AST(SGOT) (test code = 9685364834) 24 U/L 13-40 eGFR (test code = 81433-7) 6.9 mL/min/1.73m2 CKD-EPI eGFR (2020). Assuming creatinine has been stable day-to-day for at least three months, the eGFR indicates Category G5 (<= 14mL/min/1.73 m2) Lab Interpretation (test code = 09074-0) Abnormal [facility]2024-04-28 02:15:32* Test Item Value Reference Range Interpretation Comme nts LIPASE (test code = 3600554078) 758 U/L 0-220 H Lab Interpretation (test cod e = 37816-1) [facility] [id number] 01:58:31* Test Item Value Reference Range Interpretation [...] g/dL 31.2-35.0 H RDW-SD (test code = 92983-0) 36.0 fL 38.5-51.6 L RDW-CV (test code = 788-0) 11.5 % 12.1-15.4 L PLT (test code = 777-3) 312 150-328 MPV (test code = 07353-1) 9.4 fL 9.8-13.0 L NRBC/100 WBC (test code = 1675066668) 0.0 0.0-10.0 NRBC x10^3 (test code = 3460031818) See_Comment [Automated message] The system which generated this result transmitted reference range: 10*3/?L. The reference range was not used to interpret this result as normal/abnormal. GRAN MAT (NEUT) % (test code = 770-8) 82.7 % IMM GRAN % (test code = 4789427732) 0.50 % LYMPH % (test code = 736-9) 6.7 % MONO % (test code = 5905-5) 9.8 % EOS % (test code = 713-8) 0.2 % BASO % (test code = 706-2) 0.1 % GRAN MAT x10^3(ANC) (test code = 4681664060) 12.19 10*3/uL 1.99-6.95 H IMM GRAN x10^3 (test code = 8387764863) 0.08 10*3/uL 0.00-0.06 H LYMPH x10^3 (test code = 731-0) 0.99 10*3/uL 1.09-3.23 L MONO x10^3 (test code = 742-7) 1.44 10*3/uL 0.36-1.02 H EOS x10^3 (test code = 711-2) 0.03 10*3/uL 0.06-0.53 L BASO x10^3 (test code = 704-7) 0.01-0.09 Lab Interpretation (test code = 01473-1) Abnormal [facility] GLUCOSE (AUTOMATED)2023-08-16 22:02:57* Test Item Value Reference Range Interpretation Comme nts POCT GLU (test code = 0738216871) 112 mg/dL 70-110 H Lab Interpretation (test cod e = 11426-2) Abnormal [facility] GLUCOSE (AUTOMATED)2023-08-16 16:59:58* Test Item Value Reference Range Interpretation Comme nts POCT GLU (test code = 7427031136) 127 mg/dL 70-110 H Lab Interpretation (test cod e = 92027-3) Abnormal [facility] GLUCOSE (AUTOMATED)2023-08-16 12:48:23* Test Item Value Reference Range Interpretation Comme nts POCT GLU (test code = 3707817458) 175 mg/dL 70-110 H Lab Interpretation (test cod e = 35604-1) Abnormal [facility] GLUCOSE (AUTOMATED)2023-08-16 02:07:02* Test Item Value Reference Range Interpretation Comme nts POCT GLU (test code = 4460883059) 195 mg/dL 70-110 H Notified Provide r Lab Interpretation (test code = 91481-3) Abnormal [facility] GLUCOSE (AUTOMATED)2023-08-15 21:36:15* Test Item Value Reference Range Interpretation Comme nts POCT GLU (test code = 6760415847) 284 mg/dL 70-110 H Lab Interpretation (test cod e = 94165-5) Abnormal [facility] GLUCOSE (AUTOMATED)2023-08-15 16:56:02* Test Item Value Reference Range Interpretation Comme nts POCT GLU (test code = 8129191155) 74 mg/dL 70-110 Lab Interpretation (test cod e = 86791-3) Normal [facility] GLUCOSE (AUTOMATED)2023-08-15 13:12:34* Test Item Value Reference Range Interpretation Comme nts POCT GLU (test code = 3266774610) 258 mg/dL 70-110 H Lab Interpretation (test cod e = 86233-6) Abnormal [facility] GLUCOSE (AUTOMATED)2023-08-15 04:04:43* Test Item Value Reference Range Interpretation Comme nts POCT GLU (test code = 8549856449) 120 mg/dL 70-110 H Lab Interpretation (test cod e = 49923-8) [facility]normal [facility] CenterGlycosylated Hemoglobin (A1C)2023-08-15 01:17:32* Test Item Value Reference Range Interpretation Comme nts HGB A1C (test code = 4548-4) 8.9 % 4.0-5.7 H GINA (test code = GINA) Reference RangesNormal: <5.7%Prediabetes: 5.7 - 6.4%Diabetes: > 6.5% Lab Interpretation (test code = 73993-5) Abnormal [facility] CenterBeta Jcenzsk-[id number] 01:00:45* Test Item Value Reference Range Interpretation Comme nts BOH (test code = 9156898079) 0.5 mmol/L GINA (test code = GINA) Normal Ranges: ? ? Nonfasting ? Less than 0.1 mmol/L ? ? Overnight Fast ? ? ? Less than 0.4 mmol/L ? ? Fasting (1-2 weeks) ?6-8 mmol/L Test developed and characteristics determined by [facility] Laboratory Services. [facility] CenterCreatine Jbdsxh9179-31-96 23:07:16* Test Item Value Reference Range Interpretation Comme nts CK (test code = 4225699141) 148 U/L 33-194 Lab Interpretation (test cod e = 46462-9) Normal [facility] CenterTROPONIN [id number] 22:18:16* Test Item Value Reference Range Interpretation Comme nts TROPONIN I (test code = 2656576489) 0.081 ng/mL <=0.034 H GINA (test code [...] of biotin. Lab Interpretation (test code = 56698-2) Abnormal [facility] CenterN-TERMINAL [id number] 22:15:55* Test Item Value Reference Range Interpretation Comme [facility] NT-proBNP (test code = 70576-4) 999 pg/mL <=125 H GINA (test code = GINA) Positive: Heart Failure Likely Lab Interpretation (test code = 64360-3) Abnormal [facility] CenterMagnesium2024-04-20 22:07:17* Test Item Value Reference Range Interpretation Comme nts MAGNESIUM (test code = 9475673495) 1.8 mg/dL 1.7-2.4 Lab Interpretation (test cod e = 84810-1) Normal [facility] CenterCOMP. METABOLIC PANEL (17743)2023 22:06:57* Test Item Value Reference Range Interpretation Comme nts NA (test code = 1360542038) 130 mmol/L 135-145 L K (test code = 8853197634) 3.4 mmol/L 3.5-5.0 L CL (test code = 0905388283) 93 mmol/L 98-108 L CO2 TOTAL (test code = 0979144847) 26 mmol/L 23-31 AGAP (test code = 5169408433) 11 2-16 BUN (test code = 6977346427) 39 mg/dL 7-23 H GLUCOSE (test code = 1163206872) 142 mg/dL 70-110 H CREATININE (test code = 2160-0) 2.40 mg/dL 0.60-1.25 H TOTAL BILI (test code = 4040814090) 1.2 mg/dL 0.1-1.1 H CALCIUM (test code = 4877906332) 9.1 mg/dL 8.6-10.6 T PROTEIN (test code = 9192082574) 7.7 g/dL 6.3-8.2 ALBUMIN (test code = 5448144351) 4.2 g/dL 3.5-5.0 ALK PHOS (test code = 7401807024) 102 U/L 34-122 ALTv (test code = 1742-6) 16 U/L 5-50 AST(SGOT) (test code = 9788628117) 26 U/L 13-40 eGFR (test code = 23267-3) 30.9 mL/min/1.73m2 CKD-EPI eGFR (2020). Assuming creatinine has been stable day-to-day for at least three months, the eGFR indicates Category G3b (30 - 44 mL/min/1.73 m2) Lab Interpretation (test code = 58536-6) Abnormal [facility] CenterPhosphorus2024-04-20 22:06:37* Test Item Value Reference Range Interpretation Comme nts PHOSPHORUS (test code = 9823292362) 4.9 mg/dL 2.5-5.0 Lab Interpretation (test cod e = 32448-0) Normal [facility] CenterLIPASE2024-04-20 22:06:17* Test Item Value Reference Range Interpretation Comme nts LIPASE (test code = 4541557443) 204 U/L 0-220 Lab Interpretation (test cod e = 00793-6) Normal [facility] WITH [id number] 21:54:56* Test Item Value Reference Range Interpretation [...] g/dL 31.2-35.0 H RDW-SD (test code = 64770-4) 38.1 fL 38.5-51.6 L RDW-CV (test code = 788-0) 11.8 % 12.1-15.4 L PLT (test code = 777-3) 235 150-328 MPV (test code = 01842-0) 11.1 fL 9.8-13.0 NRBC/100 WBC (test code = 1012826335) 0.0 0.0-10.0 NRBC x10^3 (test code = 6174246016) See_Comment [Automated message] The system which generated this result transmitted reference range: 10*3/?L. The reference range was not used to interpret this result as normal/abnormal. GRAN MAT (NEUT) % (test code = 770-8) 80.3 % IMM GRAN % (test code = 5744994378) 0.60 % LYMPH % (test code = 736-9) 8.7 % MONO % (test code = 5905-5) 10.0 % EOS % (test code = 713-8) 0.2 % BASO % (test code = 706-2) 0.2 % GRAN MAT x10^3(ANC) (test code = 6974225684) 10.18 10*3/uL 1.99-6.95 H IMM GRAN x10^3 (test code = 6712921653) 0.07 10*3/uL 0.00-0.06 H LYMPH x10^3 (test code = 731-0) 1.11 10*3/uL 1.09-3.23 MONO x10^3 (test code = 742-7) 1.27 10*3/uL 0.36-1.02 H EOS x10^3 (test code = 711-2) 0.03 10*3/uL 0.06-0.53 L BASO x10^3 (test code = 704-7) 0.03 10*3/uL 0.01-0.09 Lab Interpretation (test code = 56912-8) Abnormal [facility] CenterXR CHEST 1 [id number] 21:49:58EXAM: XR CHEST 1 2023 4:38 PM HISTORY: 58 years-old Male with r/o infilrate . TECHNIQUE: Portable AP view of the chest. COMPARISON: 04/21/2023 FINDINGS: Lines and tubes: None. Cardiomediastinal: The cardiomediastinal silhouette is unremarkable. Lungs and pleura: The lungs are clear. No focal consolidation,pneumothorax, or pleural effusion is seen. Included osseous structures show no acuteabnormality.[facility] CenterCT ABDOMEN PELVIS W [id number] 21:45:03EXAM: CT ABDOMEN AND PELVIS WITH CONTRAST [...] change involving the spine, sacroiliac jointsand hips ispresent.[facility] CenterCT TRAUMA HEAD WO [id number] 21:38:37FULL RESULT: Examination: CT TRAUMA HEAD WO CONTRAST on 2023 4:16 PM Clinical Indication: Headache, hypertensive Comparison: None Technique: Noncontrast imaging was obtained from base to vertex.Findings: The sulci and ventricles were unremarkable. There may be subtlewhite matter microvascularischemic changes, notably in the anteriorperiventricular region, but there is no evidence for hemorrhage or otherclearly acute intracranial process.[facility] CenterLaalic Acid Whole [id number] 21:30:25* Test Item Value Reference Range Interpretation Comme [facility] LACTIC ACID (test code = 6600256260) 1.58 mmol/L 0.50-2.20 Lab Interpretation (test cod e = 72689-3) Normal [facility] Care Venous Blood [id number] 21:30:25 * Test Item Value Reference Range Interpretation Comme nts PH (test code = 7310586874) 7.34 7.32-7.42 PCO2 NOY (test code = 9873329645) 45 41-51 PO2 NOY (test code = 9240666631) 24 25-40 L HCO3 NOY (test code = 8097856623) 24 24-28 AC VBE(BEAKER) (test code = 9853426941) -1.9 mEq/L Lab Interpretation (test cod e = 54454-2) Abnormal [facility] GLUCOSE (AUTOMATED)2023 20:26:17* Test Item Value Reference Range Interpretation Comme nts POCT GLU (test code = 6161192818) 165 mg/dL 70-110 H Lab Interpretation (test cod e = 71365-9) Abnormal [facility] GLUCOSE(AGE >30DAYS)2023 20:26:00* Test Item Value Reference Range Interpretation Comme nts POCT Glu (age>30days) (test code = 3342) 165 mg/dL 70-110 A Lab Interpretation (test cod e = 60178-8) [facility] 18:15:28* Test Item Value Reference Range Interpretation Comme nts POCT GLU (test code = 5058548329) 218 mg/dL 70-110 H Lab Interpretation (test cod e = 12569-6) [facility]2023-[facility]-23 15:35:23* Test Item Value Reference Range Interpretation Comme nts POCT GLU (test code = 6494601030) 186 mg/dL 70-110 H Lab Interpretation (test cod e = 97961-6) [facility]2023-04-23 02:57:57* Test Item Value Reference Range Interpretation Comme nts POCT GLU (test code = 0617415373) 82 mg/dL 70-110 Lab Interpretation (test cod e = 61290-6) Normal [facility] GLUCOSE (AUTOMATED)2023-04-23 00:33:51* Test Item Value Reference Range Interpretation Comme nts POCT GLU (test code = 4352012919) 181 mg/dL 70-110 H Lab Interpretation (test cod e = 70013-5) [facility]2023-04-22 22:54:22* Test Item Value Reference Range Interpretation Comme nts POCT GLU (test code = 6211272624) 127 mg/dL 70-110 H Lab Interpretation (test cod e = 25155-4) [facility]normal [facility]2023-04-22 20:37:54* Test Item Value Reference Range Interpretation Comme nts POCT GLU (test code = 8450820318) 230 mg/dL 70-110 H Lab Interpretation (test cod e = 63699-2) [facility]normal [facility]2023-04-22 17:46:23* Test Item Value Reference Range Interpretation Comme nts POCT GLU (test code = 8355143342) 144 mg/dL 70-110 H Lab Interpretation (test cod e = 53527-9) [facility]normal [facility]2023-04-22 13:42:26* Test Item Value Reference Range Interpretation Comme nts POCT GLU (test code = 6171693428) 229 mg/dL 70-110 H Lab Interpretation (test cod e = 83373-7) Abnormal [facility] GLUCOSE (AUTOMATED)2023-04-22 03:33:49* Test Item Value Reference Range Interpretation Lianet garcía POCT GLU (test code = 6752535265) 222 mg/dL 70-110 H Lab Interpretation (test cod e = 25203-6) Abnormal [facility] GLUCOSE (AUTOMATED)2023-04-22 01:36:03* Test Item Value Reference Range Interpretation Lianet garcía POCT GLU (test code = 0702320515) 282 mg/dL 70-110 H Lab Interpretation (test cod e = 11911-0) Abnormal [facility] CenterEchocardiogram dobutamine stress test 2023-04-21 22:26:30* Test Item Value Reference Range Interpretation Lianet garcía Height (test code = 2898237286) 63 in Weight (test code = 2040657686) 130 lbs Systolic BP (test code = 4161906445) 122 mmHg Diastolic BP (test code = 5169488534) 81 mmHg Heart Rate (test code = 8534557206) 105 bpm BSA (test code = 7616398653) 1.[address] Depresion (mm) (test code = 3259506530) [address] Depression (mm) (test code = 5264896431) 0 mm Radiology Study observation (narrative) (test code = 47442-6) GINA (test code = GINA) Table formatting [...] left ventricular wall motion is globally hyperkinetic. [facility] CenterTransthoracic echo (TTE)2023-04-21 18:05:03* Test Item Value Reference Range Interpretation Comme nts Height (test code = 3094730582) 63 in Weight (test code = 0955871564) 130 lbs Systolic BP (test code = 8393025583) 114 mmHg Diastolic BP (test code = 6731414369) 75 mmHg Heart Rate (test code = 0622764729) 98 bpm BSA (test code = 0875689020) 1.61 m2 LVIDD (test code = 1231088776) 4.00 cm Left Ventricular End Diastolic Volume by Teichholz Method (test code = 6645955) 70.0 mL IVS (test code = 1772686696) 1.07 cm Interventricular Septum Diastolic Thickness by 2D (test code = 8463853) 1.07 cm LVPWD (test code = 7051631103) 1.05 cm PW (test code = 4915203368) 1.05 cm 0.6-1.1 EF(Teich) (test code = 0440630274) 62.60 % LVIDS (test code = 5448043363) 2.70 cm Left Ventricular End Systolic Volume by Teichholz Method (test code = 7583640) 26.2 mL FS (test code = 8618180452) 33 % EF - 2D (test code = 85596079) 62.60 % Ao root diam (test code = 7393548947) 3.70 cm Aortic root (test code = 4777526182) 3.7 cm Ao root annulus (test code = 4054064405) 3.7 cm LA size (test code = 8221649695) 3.2 cm LVOT diameter (test code = 9553586247) 2.08 cm LVOT area (test code = 4241606490) 3.40 cm2 MV Peak E Nima (test code = 0345659731) 48.3 cm/s E wave decelartion time (test code = 0883836479) 0.15 s MV Peak A Nima (test code = 3545402420) 74.4 cm/s E/A ratio (test code = 3627606843) 0.65 ratio MV Prop V (test code = 0553530384) 21.20 cm/s LAV(MOD-sp4) (test code = 4046876154) 35.30 mL Tapse (test code = 9722833325) 1.73 cm LVOT stroke volume (test code = 0162820524) 45.20 cm3 LVOT peak nima (test code = 1956498392) 79.0 cm/s LVOT mn grad (test code = 8136102951) 1.3 mmHg AV LVOT peak gradient (test code = 0681048057) 2.50 mmHg LVOT peak VTI (test code = 7906760239) 13.2 cm LV V1 mean (test code = 8666574531) 52.90 cm/s Ao peak nima (test code = 8601171091) 83.8 cm/s AV area peak nima (test code = 3308479714) 3.2 cm2 Ao max PG (test code = 0945967915) 2.80 mm[Hg] AV peak gradient (test code = 5601168650) 2.8 mmHg LA Volume Index (BP) (test code = 1478332824) 25.9 mL/m2 LA volume (BP) (test code = 2449057718) 41.8 mL LAV(MOD-sp2) (test code = 3549431533) 40.90 mL A4C EF (test code = 8668272869) 54.40 % EF(sp4-el) (test code = 6813765593) 55.00 % SV(MOD-sp4) (test code = 7461599974) 53.10 mL SV(sp4-el) (test code = 8797099235) 55.60 mL Radiology Study observation (narrative) (test code = 23850-4) GINA (test code = GINA) ?Left?Ventricle: Left [...] agent used. Patient exhibited sinus rhythm. [facility] GLUCOSE (AUTOMATED)2023-04-21 17:48:26* Test Item Value Reference Range Interpretation Comme nts POCT GLU (test code = 1496421471) 198 mg/dL 70-110 H Lab Interpretation (test cod e = 65495-9) Abnormal [facility] CenterXR [facility] 1 [id number] 15:12:07EXAM: XR CHEST 1 VW HISTORY: NSTEMI COMPARISON: None. FINDINGS: Small bandlike densities in the left midlung have more the appearance ofatelectasis than pneumonia. The lungs are well expanded and clearotherwise. The heart and great vessels are normal except for calcium in thearch of the aorta.[facility] GLUCOSE (AUTOMATED)2023-04-21 09:39:57* Test Item Value Reference Range Interpretation Comme nts POCT GLU (test code = 8547436334) 243 mg/dL 70-110 H Lab Interpretation (test cod e = 91294-8) Abnormal [facility] CenterFerritin Kodei9405-49-04 07:28:27* Test Item Value Reference Range Interpretation Comme nts FERRITIN (test code = 7829206080) 76.3 ng/mL 18.0-464.0 GINA (test code = GINA) Biotin has been reported to cause a negative bias, interpret results relative to patient's use of biotin. Lab Interpretation (test code = 33510-5) Normal [facility] CenterGlycosylated Hemoglobin (A1C)2023-04-21 07:25:47* Test Item Value Reference Range Interpretation Comme nts HGB A1C (test code = 4548-4) 12.6 % 4.0-5.7 H GINA (test code = GINA) Reference RangesNormal: <5.7%Prediabetes: 5.7 - 6.4%Diabetes: > 6.5% Lab Interpretation (test code = 40613-8) Abnormal [facility] CenterThyroid Stimulating Htjxauu2721-38-56 07:24:07 * Test Item Value Reference Range Interpretation Comme nts TSH (test code = 8787470467) 2.56 See_Comment [Automated messa ge] The system which generated this result transmitted reference range: 0.45 - 4.70 mIU/L. The reference range was not used to interpret this result as normal/abnormal. Lab Interpretation (test code = 55268-4) Normal [facility] CenterPhosphorus2023-12-27 06:52:06* Test Item Value Reference Range Interpretation Comme nts PHOSPHORUS (test code = 1474816924) 3.2 mg/dL 2.5-5.0 Lab Interpretation (test cod e = 85295-0) Normal [facility] CenterCritical Ytod1532-18-75 02:54:15NSergio chin MD ? ? 04/20/2023 ?8:54 [...] separately billable procedures and treating other patients. [facility] CenterTrtennova healthcaredian [id number] 02:30:18* Test Item Value Reference Range Interpretation Comme nts TROPONIN I (test code = 7010921577) 0.154 ng/mL <=0.034 H GINA (test code [...] of biotin. Lab Interpretation (test code = 89898-0) Abnormal [facility] CenterETHANOL2023-12-27 02:24:46 ALCOHOL<10mg/dL04/20/2023 8:24 PM [facility]10 Cgdwxurw96-325 Toxic>100 Depression of [employer]>400 Fatalities ReportedUnGrace Medical CenterCOMP. METABOLIC PANEL (63850)2023-04-21 02:19:15* Test Item Value Reference Range Interpretation Comme nts NA (test code = 6696914338) 129 mmol/L 135-145 L K (test code = 8811120662) 3.5 mmol/L 3.5-5.0 CL (test code = 0833502471) 94 mmol/L 98-108 L CO2 TOTAL (test code = 1503118911) 28 mmol/L 23-31 AGAP (test code = 9713427381) 7 2-16 BUN (test code = 6539502216) 26 mg/dL 7-23 H GLUCOSE (test code = 9790146626) 314 mg/dL 70-110 H CREATININE (test code = 0005126837) 0.92 mg/dL 0.60-1.25 TOTAL BILI (test code = 3000632622) 0.8 mg/dL 0.1-1.1 CALCIUM (test code = 9649682337) 8.5 mg/dL 8.6-10.6 L T PROTEIN (test code = 6354194595) 6.0 g/dL 6.3-8.2 L ALBUMIN (test code = 9784413088) 3.3 g/dL 3.5-5.0 L ALK PHOS (test code = 6575691304) 95 U/L 34-122 ALTv (test code = 1742-6) 23 U/L 5-50 AST(SGOT) (test code = 0415430985) 30 U/L 13-40 eGFR (test code = 04298-6) 98.2 mL/min/1.73m2 CKD-EPI eGFR (2020). Assuming creatinine has been stable day-to-day for at least three months, the eGFR indicates Category G1 (>= 90 mL/min/1.73 m2) Lab Interpretation (test code = 92175-4) Abnormal [facility] WITH [id number] 02:03:54* Test Item Value Reference Range Interpretation [...] g/dL 31.2-35.0 H RDW-SD (test code = 22495-0) 36.2 fL 38.5-51.6 L RDW-CV (test code = 788-0) 11.6 % 12.1-15.4 L PLT (test code = 777-3) 178 See_Comment [Automated [employer] ge] The system which generated this result transmitted reference range: 150 - 328 10*3/?L. The reference range was not used to interpret this result as normal/abnormal. MPV (test code = 76201-7) 10.9 fL 9.8-13.0 NRBC/100 WBC (test code = 5025279983) 0.0 See_Comment [Automated [employer] ssage] The system which generated this result transmitted reference range: 0.0 - 10.0 /100 WBCs. The reference range was not used to interpret this result as normal/abnormal. NRBC x10^3 (test code = 0975947606) See_Comment [Automated [employer] ge] The system which generated this result transmitted reference range: 10*3/?L. The reference range was not used to interpret this result as normal/abnormal. GRAN MAT (NEUT) % (test code = 770-8) 81.3 % IMM GRAN % (test code = 0046245643) 0.30 % LYMPH % (test code = 736-9) 10.5 % MONO % (test code = 5905-5) 7.6 % EOS % (test code = 713-8) 0.1 % BASO % (test code = 706-2) 0.2 % GRAN MAT x10^3(ANC) (test code = 2914264058) 9.55 10*3/uL 1.99-6.95 H IMM GRAN x10^3 (test code = 8350561819) 0.04 10*3/uL 0.00-0.06 LYMPH x10^3 (test code = 731-0) 1.23 10*3/uL 1.09-3.23 MONO x10^3 (test code = 742-7) 0.89 10*3/uL 0.36-1.02 EOS x10^3 (test code = 711-2) 0.06-0.53 L BASO x10^3 (test code = 704-7) 0.01-0.09 Lab Interpretation (test code = 75728-4) Abnormal [facility] CenterPOCT GLUCOSE (AUTOMATED)2023-04-21 01:55:51* Test Item Value Reference Range Interpretation Comme [facility] POCT GLU (test code = 3523840927) 408 mg/dL 70-110 H Lab Interpretation (test cod e = 79853-6) Abnormal [facility] CenterCOMPREHENSIVE METABOLIC [id number] 05:07:51* Test Item Value Reference Range Interpretation Comme [facility] GLUCOSE (test code = 2217) 224 MG/DL 70-99 H BUN (test code = 2208) 22 MG/DL 6-20 H CREATININE (test code = 2214) 0.71 MG/DL 0.80-1.40 L eGFR (2020 CKD-EPI) (test code = 88041) 109 ML/MIN/1.73 >60 CALC BUN/CREAT (test code [...] code = 2219) 24 U/L 5-50 LIPID [id number] 05:07:51* Test Item Value Reference Range Interpretation [...] SPECIMENS. FOR MOREINFORMATION, SEE CLIENT ANNOUNCEMENT AT [email or web address] [email or web address] RATIO LDL/HDL (test code = 2238) 1.72 RATIO <3.55 PSA, [id number] 05:07:10* Test Item Value Reference Range Interpretation Comme nts PSA, TOTAL (test code = 2606) 19.70 NG/ML See_Comment H NOTE: Methodolog y is Ashley Jasmina Electrochemiluminescence Immunoassay traceable to WHO reference standard 96/760. UNLESS OTHERWISE INDICATED, ALL TESTING PERFORMED [facility] [address] [place] [address] LAMP MECHANIC: DUSTIN COLMENARES M.D. CLIA NUMBER [id number] [place]. [id number] [Automated message] The system which generated this result transmitted reference range: <=4.00. The reference range was not used to interpret this result as normal/abnormal. HEMOGLOBIN [id number] 02:46:58* Test Item Value Reference Range Interpretation Comme nts HEMOGLOBIN A1c (test code = 02116) 11.0 % 4.2-5.6 H [facility] [...] OR LABORATORY CONSULTATION. CBC W/AUTO DIFF WITH [id number] 02:32:39* Test Item Value Reference Range Interpretation [...] 0.00-0.10 ABS NUCLEATED RBCS (test code = 34955) 0.00 K/UL 0.00-0.11 Consult Notes Date/Time Note [...] when jensen is moved. COMMUNICATION Primary Language: Slovak Able to Verbalize needs: Yes Vision:good; no [...] Minutes: 20 min Jesica Murphy,PT Tx License: [id number] Required Components in Determining Evaluation Level History: No personal factors or comorbidities: No (62901) 1-2 personal factors and/or comorbidities: Yes (72463) 3 or more personal factors and/ or comorbidities: No (10404) Examination of Body System(s) Addressing 1-2 elements: Yes (46417) Addressing a total of 3 or more elements: No (54217) Addressing a total of 4 or more elements: No (25072) Clinical Presentation Stable: Yes (09871) Evolving: No (93149) Unstable: No (72903) Clinical Decision Making (Complexity) Low: No (91639) Moderate: Yes (18440) High: No (93167) Jesica Murphy PT [facility] [employer] 2023-08-15 10:01:34 Associated Order(s): CONSULT CARDIOLOGY [facility] Cardiology Consult Note Patient: Saturnino Shah Date of : 1965 Date of service: 08/15/2023 Primary Care Physician: Erik Louie Jr CHIEF COMPLAINT: Chief Complaint Patient presents with Nausea Hypertension HISTORY OF PRESENT ILLNESS: Saturnino Shah is a 58 year old male presented [...] of Onset No Significant Medical Problems Mother VA (myocardial infarction) Father SOCIAL HISTORY Social History [...] specified complication Elevated troponins: Likely type II VA in the setting of underlying ELIEZER/elevated blood [...] per primary team. Last Two A1C Results ([facility]/LC, POCT, [facility]) Recent Labs 04/20/23195408/14/23 1547 HGBA1C 12.6* 8.9* My diagnostic impression and treatment plans were discussed at length with the patient. Ample opportunity was offered and encouraged to ask questions during this visit and patient appreciated the answers given by me and verbzalised statisfcation in the answers given. Thank you for allowing us to participate in the care of Saturnino Shah. If you have any questions or concerns please feel free to call our office at [phone]. I would be happy to be of further assistance for Saturnino Shha wellbeing. Voice recognition software has been used to create portions of this document. An attempt to proofread has been made to minimize errors. Please do not hesitate to call with any questions. Benja Rivera MD Building Admin, Division of Cardiology [facility] 2023-04-21 08:46:48 Associated Order(s): CONSULT ENDOCRINOLOGY Endocrinology Consult Note Consultation requested by: Service: White team Reason for Consultation: Diabetes Date of Service: 04/21/23 HPI 57 year old male with a PMH of HTN, T2DM, Fmhx premature CAD who presented with complaints of polyuria and weakness at [facility] ER. Patient transferred to [place] for further work up. Endocrinology consulted for diabetes management Diabetes Type and year diagnosed: 2011, type 2 Diabetes complications: none Hx of DM regimen: no meds for 3 years Compliance: - BG monitoring? - Hypoglycemia hx: no Hypoglycemia unawareness? no Symptoms of hyperglycemia: polyuria Living situation and support: homeless, lives with different relatives Diabetes doctor: PCP in [place], has not seen for few years Family hx of diabetes: no HX of glucocorticoid use: no HX of transfusions or EPO in last 6 months: no PAST MEDICAL HISTORY Past Medical History: Diagnosis Date HTN (hypertension) Uncontrolled diabetes mellitus with hyperglycemia History reviewed. No pertinent surgical history. Family History Problem Relation Age of Onset No Significant Medical Problems Mother VA (myocardial infarction) Father Social History Tobacco Use [...] with complaints of polyuria and weakness at [facility] ER. Patient transferred to [place] for further work up. Endocrinology consulted for [...] Cabrera.. Austin Amaro. Endocrinology Fellow, PGY 5 INE INKER Associated attestation - Rita Cabrera MD - 04/22/2023 2:11 PM MACHINE INKER Endocrinology Faculty Attestation: I evaluated this patient's progress on 04/21/[address] Amaro note as written and revised. I actively participated in the decision-making process. Please see the resident's note for additional details that includes pertinent addendums I made directly in the note during revision. Rita Cabrera MD Building Admin Division of Endocrinology IM-ENDOCRINOLOGY,DIABET ES & METABOLISM [facility] - Health History and Physical Notes Date/Time Note Provider Source 2023-08-21 22:53:53 [facility] Hospitalist Admission H&P Date of Service: 08/21/2023 CHIEF COMPLAINT: Postobstructive renal failure HISTORY OF PRESENT ILLNESS Saturnino Shah is a 58 year old male who [...] consulted. Patient was given the application for [facility] on last admission and will need to [...] of Onset No Significant Medical Problems Mother VA (myocardial infarction) Father SOCIAL HISTORY Social History [...] user?: NO Patient will require observation [place] AREA REPRESENTATIVE was verified during stay Lyubov Banda MD [facility] 2023 22:58:21 MEDICINE [facility] ADMIT H&P Date of Service: 2023 CHIEF [...] of Onset No Significant Medical Problems Mother VA (myocardial infarction) Father ALLERGIES No Known Allergies [...] above the umbilicus. Assessment & Plan Saturnino Shah is a 58 year old male with [...] present Code Status: Presumed Full Code T [facility] EMERGENCY PHYSICIAN STAFF [facility] 2023-04-21 00:39:12 [facility] Admit H&P PCP: Erik Louie Jr Date of Service: 04/20/2023 CHIEF COMPLAINT: Polyuria HISTORY OF PRESENT ILLNESS Saturnino Shah is a 57 year old male with a PMH of HTN, T2DM, Fmhx premature CAD who presented with complaints of polyuria and weakness at [facility] ER. Patient transferred to [place] for further work up. Patient reports that [...] or drug use. Family history significant for VA in father in his 40s. Currently not [...] use drugs. Family history: family history includes VA (myocardial infarction) in his father; No Significant [...] history No previous cardiac workup ASSESSMENT/PLAN Saturnino Shah is a 57 year old male with [...] help with resources. Plan: - Admit to [facility] - Trend Troponin to peak - [...] Internal Medicine Department PGY 2, [place] Team INE INKER Associated attestation - Bret Banda MD - 04/21/2023 2:47 PM MACHINE INKER I reviewed patient's chart, vitals, lab work, current medications and other diagnostic studies. I saw and examined the patient today and agree with the detailed note. I actively participated in the decision-making process. Bret Banda MD Building Admin Division of Cardiology [facility] Notes Date/Time Note Provider Source [...] Outcome: Adequate for discharge Kalina Georges RN [facility] 2023-08-24 13:14:04 Problem: Pain Goal: [...] Absence of falls Outcome: Adequate for discharge [facility] 2023-08-23 07:12:12 Problem: Pain Goal: [...] Outcome: Progressing as expected Abi Lowery RN [facility] 2023-08-22 22:07:54 Problem: Pain Goal: [...] Outcome: Progressing as expected Tammy Sweeney RN [facility] 2023-08-22 08:41:53 Problem: Pain Goal: [...] Outcome: Progressing as expected Mihaela Lopez RN [facility] 2023-08-22 03:26:01 Problem: Pain Goal: [...] Outcome: Progressing as expected Angeline Claudio RN [facility] 2023-08-21 23:32:26 Patient admitted to [facility] 2101 for diagnosis of ELIEZER, urinary obstruction Patient agrees to admission, discussed plan of care with patient and family. Patient is awake, alert, oriented, resp reg unlabored, color appropriate for race, PIV intact No adverse reaction to medications administered while in ED Belongings with patient to unit Report to Xu VILLAGRAN Chela Reyes RN [facility] 2023-08-21 19:43:36 Pt C/O RLQ pain that started yesterday, pt states last BM 08/16/2023. Pt denies any urinary, nausea or vomiting Sydney Duff RN [facility] 2023-08-21 19:39:00 [facility] Emergency Department Note Patient Name: Saturnino Shah Date of : 1965 58 year old male Treatment Room: KY7/KY7 Primary Care Physician: Erik Louie Jr Patient Escorted by: Self [9] Mode of Arrival: EMS - [place] [46] EMS Treatment Prior to ED Arrival: FACTORY MANAGER treatment: None Travel and Exposure Screening: Symptoms [...] to not being able to get a [employer] identification card over the last 4 years. [...] 0.01 - 0.09 10*3/uL COMP. METABOLIC PANEL (35745) - Abnormal NA 120 (*) 135 - [...] CONTRAST Cbc with Diff Comp. Metabolic Panel (86480) Lipase Urinalysis Basic Metabolic Panel (NA, K, [...] treatment AdmissionCare documentation entered by: Cosme Cardona [facility] [employer], 27th edition, Copyright ? 2022 [facility] [employer] [facility] All Rights Reserved. [id number]:26:32-05:00 ED COURSE ED Course as of 08/21/23 [...] Electronically signed by: Cosme Cardona DO 08/21/23 2966 [facility] 2023-08-21 19:39:00 AdmissionCare Guideline: Urologic [...] treatment AdmissionCare documentation entered by: Cosme Cardona [facility], 27th edition, Copyright ? 2022 [facility] [employer] [facility] All Rights Reserved. [id number]:32-05:00 [facility] 2023-08-17 08:32:29 ----- Message from [...] with one of us in 3-4 weeks. [facility] 2023-08-16 17:56:55 Summary: discharge transportation Discharge paperwork provided, patient stated he does not have a ride. Transportation was arranged with voucher. Discharge location: [address] [place] [address] Patient verbalized understanding. Hilary Quinones RN [facility] 2023-08-16 17:19:16 Problem: Pain Goal: Control of pain at or below patient's documented comfort goal Outcome: Resolved Goal: Reduction in pain sensation Outcome: Resolved Problem: Skin integrity Impaired (Risk or Actual) Goal: Prevention of new skin breakdown Outcome: Resolved Problem: Venous Thromboembolism, (actual or risk of) Goal: Absence of venous thromboembolism (Risk) Outcome: Resolved [facility] 2023-08-16 10:33:18 Summary: jensen Jensen discontinued without complications. Patient given lactulose PO. Patient notified to notify nurse and to leave urine/stool before flushing for nursing staff to assess. Patient verbalized understanding. [facility] 2023-08-16 00:51:24 Problem: Pain Goal: [...] venous thromboembolism (Risk) Outcome: Progressing as expected [facility] 2023-08-15 19:27:06 Problem: Pain Goal: [...] venous thromboembolism (Risk) Outcome: Progressing as expected [facility] Libia Johnson RN [facility] 2023 23:43:36 Problem: Pain Goal: [...] venous thromboembolism (Risk) Outcome: Progressing as expected [facility] 2023 23:01:15 Patient admitted to [facility] for diagnosis of Hypertension, elevated troponin, urine retention, ELIEZER, hypokalemia. Patient agrees to admission, discussed plan of care with patient and family. Patient is awake, alert, oriented, resp reg unlabored, color appropriate for race, PIV intact No adverse reaction to medications administered while in ED Belongings with patient to unit Report to [facility] RN Josi Miller RN [facility] 2023 18:56:57 Handoff report given to Josi VILLAGRAN uNnu Fang RN [facility] 2023 14:42:29 Has been out of diabetic, BP meds since April. States he can't "afford it". Struggling with constipation for "several days". He called EMS today for excessive fatigue and worsening hypertension. He is A&Ox4 and able to ambulate. 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 2022 [employer] All Rights Reserved. [id number]:45:18-05:00 [facility] [employer] 2023 14:38:00 AdmissionCare Guideline: Renal Failure (Acute) [...] patients) AdmissionCare documentation entered by: Umang Reynaga [employer], edition, Copyright ? 2022 [employer] All Rights Reserved. [id number]:00:25-05:00 [facility] [employer] 2023-04-27 15:56:14 TRANSITIONAL CARE MANAGEMENT ASSESSMENT 04/27/2023 Saturnino Shah [id number] Saturnino Shah is a 57 year old /White male was admitted on 04/20/[address] He was discharged on 04/23/23 with [...] to check in. No linked episodes TCM App-jxle-ac-face outreach documentation: Future Appointments: INE INKER Jeannette Dawn LVN [facility] 2023-04-23 18:39:42 Patient refuses to take taxi voucher which takes him directly to [employer] stating, "My brother is on his way to pick me up. I don't want to upset him as it is anymore." When asked if his brother is going to take him to [employer], patient stated, "I don't know. That will be between me and my brother." Transportation in room, wheeled patient downstairs to [facility]. A Sparks RN [facility] 2023-04-23 17:33:42 Problem: Glucose control [...] Outcome: Progressing as expected A Whiting RN [facility] 2023-04-23 17:33:03 Problem: Glucose control [...] Valentino Whiting RN Outcome: Progressing as expected [facility] 2023-04-23 10:51:50 Problem: Glucose control [...] of cognitive ability Outcome: Progressing as expected [facility] 2023-04-23 00:56:44 Problem: Mental Status - Impaired Goal: Able to achieve maximum level of cognitive ability Outcome: Progressing as expected [facility] 2023-04-23 00:52:07 Problem: Glucose control [...] within specified parameters Outcome: Progressing as expected [facility] 2023-04-22 08:03:00 Problem: Glucose control [...] within specified parameters Outcome: Progressing as expected [facility] 2023-04-20 23:38:56 Problem: Glucose control [...] within specified parameters Outcome: Progressing as expected [facility] 2023-04-20 21:49:51 Patient admitted to [facility] 923 for diagnosis of WEAKNESS, NSTEMI, HYPERGLYCEMIA Patient agrees to admission, discussed plan of care with patient. Patient is awake, alert, oriented, resp reg unlabored, color appropriate for race, PIV intact No adverse reaction to medications administered while in ED Belongings with patient to unit Report to MARIE VILLAGRAN REPORT GIVEN TO MEDIC FOR [facility], PT LOADED TO BE TRANSFERRED. HEPARIN INFUSING AT 700 UNITS/ HOUR. INE INKER Jaelyn Vargas RN [facility] 2023-04-20 21:38:11 Report called to [facility], spoke with Marie VILLAGRAN. Pt awaiting EMS transfer. INE INKER [facility] 2023-04-20 20:59:06 [facility] ETA 45 MIN per Chen A Carrero PCT [facility] 2023-04-20 20:54:15 Associated Order(s): Critical [...] separately billable procedures and treating other patients. [facility] 2023-04-20 20:00:00 Patient aware of UA sample needed. Unable to provide sample at this moment. Urinal at bedside. Call light within reach. 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 Per patient he was diagnosed with DM five years ago and stopped taking home meds-Metformin about three years ago. Patient c/o of being weak and increased UOP. Patient was nauseous FACTORY MANAGER but has resolved since. [facility] 2023-04-20 19:43:00 EMERGENCY DEPARTMENT ENCOUNTER [facility] Patient Name: Saturnino Shah Date of : 1965 57 year old Exam Room:Room/bed info not found Primary Care Physician: No primary care provider on file. 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 Per patient he was diagnosed with DM five years ago and stopped taking home meds-Metformin about three years ago. Patient c/o of being weak and increased UOP. Patient was nauseous FACTORY MANAGER but has resolved since. HPI History provided [...] 0.01 - 0.09 10*3/uL COMP. METABOLIC PANEL (30829) - Abnormal NA 129 (*) 135 - [...] VW CBC WITH DIFF COMP. METABOLIC PANEL (29845) URINALYSIS URINE DRUG (IMMUNOASSAY) - COMPREHENSIVE DRUG SCREEN W/O REFLEX ETHANOL POCT GLUCOSE (AUTOMATED) Troponin I Prothrombin Time / INR aPTT aPTT (for use with Heparin Infusion) Ferritin Serum Iron Panel Troponin I Thyroid Stimulating Hormone Glycosylated Hemoglobin (A1C) Phosphorus Cbc with Diff Basic Metabolic Panel (NA, K, CL, CO2, GLUCOSE, BUN, CREATININE, CA) Magnesium Lipid Panel (46581)(Total Cholesterol, Triglycerides, HDL) O2 Per Protocol Orders [...] mg Procedures EKG Time 1950 Sinus tach [place] normal Intervals normal No acute ischemia Notes [...] demonstrates that he is having a silent VA. He has elevated troponin of 0.154. Please note he does not have any chest pain or shortness of breath. EKG does not demonstrate a STEMI. He was started on heparin, Plavix, and aspirin. The patient may require cardiac catheterization. The patient was transferred to [place] for further evaluation. History, physical exam findings, [...] this patient. Sergio Aponte Jr., MD Clinical Building Admin [facility] Emergency Department [employer] is used frequently and may produce errors. Promptly contact for obvious discrepancies. Sergio Aponte MD 04/21/23 0025 [facility] EMERGENCY PHYSICIAN STAFF [facility]
[2024-03-15 10:52] LABS: Absolute Eosinophils 0.1 K/uL (0-0.5); Absolute Lymphocytes (CBC) 0.7 K/uL (0.7-4.9); Absolute Monocytes 0.7 K/uL (0.1-1.3); Basophils % 0.2 % (0-1.3); Eosinophils % 0.9 % (0-4.4); Hematocrit 37.4 % (39.6-49.0); Hemoglobin 12.5 g/dL (13.6-17.9); MCH 29.4 pg (27.0-35.0); MCHC 33.5 g/dL (32.0-36.0); MCV 87.9 fL (80-100); MPV 7.8 fL (7.6-11.3); Monocytes % 6.2 % (3.3-12.3); Neutrophils % 85.7 % (41.7-73.7); Platelets 281 thou/uL (152-406); RBC Red Blood Cell Count 4.25 M/uL (4.33-5.43); Red Cell Distribution Width 13.9 % (12.1-15.2)
[2024-03-15 10:55] LABS: PT Prothrombin Time 10.6 SECONDS (9.4-12.5); PTT, Activated Partial Thromb 31.8 SECONDS (24.3-36.9); Protime INR 0.94
[2024-03-15 10:59] LABS: Specific Gravity 1.022 (1.005-1.030); Sqamous Epithelial None Seen /HPF (None Seen); Urine Bacteria 20-50 /HPF (<20); Urine Bilirubin NEGATIVE (Negative); Urine Blood 3+ (OVER) (Negative); Urine Clarity Extremely Turbid (Clear); Urine Color Brown (Yellow); Urine Culture Reflex Order REFLEXED; Urine Glucose 3+ (Negative); Urine Ketones NEGATIVE (Negative); Urine Microscopic Reflex YN ORDER UMIC; Urine Mucus Slight /HPF (None Seen); Urine Nitrite NEGATIVE (Negative); Urine Protein 3+ (Negative); Urine RBC >50 /HPF (None Seen); Urine Urobilinogen Normal (Normal); Urine WBC >50 /HPF (<5); Urine pH 6.5 (5.0-7.0)
[2024-03-15 11:06] LABS: Albumin 3.4 g/dL (3.4-5.0); Albumin/Globulin Ratio 0.8 (1.1-1.8); Anion Gap 8.6 mEq/L (5.0-15.0); Bilirubin Total 0.8 mg/dL (0.2-1.0); Globulin 4.4 g/dL (2.3-3.5); Potassium 3.6 mEq/L (3.5-5.1); Protein, Total 7.8 g/dL (6.4-8.2)
--- NOTE | 2024-03-15 11:18 | RAD REPORT ---
EXAMINATION: CT ABDOMEN AND PELVIS WITH CONTRAST CLINICAL INDICATION: hematuria, worsening symptoms TECHNIQUE: CT abdomen and pelvis was performed, after the administration of IV contrast, as per [facility] protocol. Axial, sagittal and coronal reconstructions were obtained. One or more of the following dose reduction techniques were used: Automated exposure control, adjustment of the mA and k V according to patient size, and iterative reconstruction. Unless otherwise specified, incidental findings do not require dedicated imaging follow-up. COMPARISON: 03/14/2024, 09/02/2023 FINDINGS: LOWER CHEST: The visualized lung bases are clear. LIVER: Normal in size and contour. No focal lesion. Grossly unremarkable gallbladder. SPLEEN: Normal size. No focal lesion. PANCREAS: No mass, ductal dilation, or korina-pancreatic fluid. ADRENALS: Normal; no mass. KIDNEYS: There is bilateral hydronephrosis and hydroureter seen on today's study. Small quantities of air are seen in the right ureter and superior calyx right kidney. Significant air is present inside the urinary bladder and in the wall of the urinary bladder compatible with emphysematous cysti tis. This appears mildly worse than yesterday's study. GASTROINTESTINAL TRACT: No evidence of free air, significant intra-abdominal free fluid, bowel obstru ction or abscess. Moderate stool is present throughout the colon. APPENDIX: Normal appendix. LYMPH NODES: No lymphadenopathy. MUSCULOSKELETAL: No acute or suspicious osseous abnormality. ADDITIONAL FINDINGS: None. 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 There is mild to moderate bi lateral hydronephrosis and hydroureter present on today's study with a small amount of air present in the right ureter and superior calyx right kidney.
[2024-03-15] MEDS ORDERED: NA CHLORIDE 0.9% 1,000 ML ONE ×2 (11:22→17:24)
[2024-03-15] MEDS ORDERED: NA CHLORIDE 0.9% 100 ML ONE (11:22)
[2024-03-15] MEDS ORDERED: CEFEPIME 1 GM/VIAL ONE (11:23)
[2024-03-15 12:31] LABS: Basophilic Stippling 1+; Blood Morphology Comment NOTED (NOT SEEN); Platelet Estimate ADEQ; White Blood Cell Scan OK (OK)
[2024-03-15] MEDS ORDERED: MORPHINE 4 MG/ML SYR ONE (12:43)
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
[2024-03-15] MEDS ORDERED: LACTULOSE 20 GM/30 ML UCUP PO PRN (15:08)
--- NOTE | 2024-03-15 15:19 | P.HP ---
Certification for Inpatient Patient admitted to: Inpatient With expected LOS: >2 Midnights Patient will require the following post-hospital care: None Practitioner: I am a practitioner with admitting privileges, knowledge of patient current condition, hospital course, and medical plan of care. Services: Services provided to patient in accordance with Admission requirements found in Title 42 Section 412.3 of the Code of Federal Regulations Patient History Date of Service: 03/16/24 Allergies No Known Allergies Allergy (Verified 12/29/23 03:32) Home Medications: Codeine/APAP [Tylenol W/Codeine #3 tab] 1 tab PO Q6HP PRN #15 tab 12/31/23 Doxycycline Hyclate [Vibramycin] 100 mg PO BID #28 cap 12/31/23 Metformin HCl 500 mg PO BID #60 tab 12/31/23 levoFLOXacin [Levaquin] 750 mg PO DAILY #7 tab 12/31/23 - Past Medical/Surgical History Diabetic: Yes -: Diabetes mellitusNIDDM -: Urinary incontinence -: Urinary retention -: right arm sx Psychosocial/ Personal History: Pt has been seen at this facility and a nearby facility for the same recurrent issue but is non compliant, removes jensen and does not follow up with specialists as recommended. Currently homeless - Family History Mother -: Cancer - Social History Smoking Status: Unknown if ever smoked Alcohol use: No CD- Drugs: No Caffeine use: Yes Place of Residence: [facility] Review of Systems 10-point ROS is otherwise unremarkable General: Fever, Chills, Weakness Eyes: Unremarkable ENT: Unremarkable Respiratory: Unremarkable Cardiovascular: Unremarkable Gastrointestinal: Constipation Genitourinary: Frequency, Retention, As per HPI Musculoskeletal: As per HPI Integumentary: Unremarkable Neurological: Unremarkable Lymphatics: Unremarkable Physical Examination - Physical Exam General: Alert, In no apparent distress, Oriented x3 HEENT: Atraumatic, Normocephalic Neck: Supple Respiratory: Clear to auscultation bilaterally, Normal air movement Cardiovascular: Normal pulses, Regular rate/rhythm, Other (Mildly tachycardic) Capillary refill: <2 Seconds Gastrointestinal: Soft and benign, Other (CT shows moderate to severe stool burden possibly impacting urinary retention causing hydronephrosis) Musculoskeletal: No clubbing, No swelling Integumentary: Other (Lipoma or cyst area to central epigastric area times months no noted infection or inflammation) Neurological: Normal speech, Normal tone, Normal affect Lymphatics: No axilla or inguinal lymphadenopathy Urinary: Jensen catheter (Jensen placed in ED for urinary retention) External genitalia: Deferred Rectal: Deferred - Studies Laboratory Data (last 24 hrs) 03/15/24 03/15/24 03/15/24 10:20 10:20 10:20 WBC 10.50 Hgb 12.5 L D Hct 37.4 L Plt Count 281 PT 10.6 INR 0.94 APTT 31.8 Sodium 134 L Potassium 3.6 BUN 16 Creatinine 1.07 Glucose 261 H Total Bilirubin 0.8 AST 16 ALT 20 Alkaline Phosphatase 104 Assessment and Plan - Plan 1. Emphysematous cystitis with hydronephrosis likely secondary to #2 and 3 2. LUTS 3. Constipation Gentle hydration Follow cultures Previous cultures mostly sensitive to Levaquin Will hold off on Merrem until forced to employ for bacteriocidal activity second to frequent recurrence and increasing resistance with noncompliance secondary to financial issues Jensen with strict I and O Constipation relief Complete renal ultrasound in a.m. to gauge reduction in hydronephrosis/hydroureter PSA Diabetes with hyperglycemia secondary to noncompliance with metformin Fingerstick monitoring before meals and at bedtime with mild sliding scale coverage Homelessness and resultant noncompliance with medications convention services director as needed VTE/GI prophylaxis Discharge Plan: Home Plan to discharge in: 48 Hours - Advance Directives Does patient have a Living Will: No Does patient have a Durable POA for Healthcare: No - Code Status/Comfort Care Code Status Assessed: Yes (Full) Critical Care: No Time Spent Managing Pts Care (In Minutes): 55
[2024-03-15] MEDS ORDERED: GLUCAGON 1 MG/VIAL IM PRN ×2 (15:35→15:42)
[2024-03-15] MEDS ORDERED: D10W 125 ML IV PRN ×2 (15:35→15:42)
[2024-03-15] MEDS: NA CHLORIDE 0.9% 1,000 ML IV SCH (16:00)
[2024-03-15] MEDS: Levofloxacin500mg IV 500 MG/100 ML BAG IV SCH (16:00)
[2024-03-15] MEDS: INSULIN REGULAR (HUMAN) 100 UNIT/ML SQ SCH (16:30)
[2024-03-15] MEDS ORDERED: Levofloxacin500mg IV 500 MG/100 ML BAG IV ONE (17:23)
[2024-03-15] MEDS ORDERED: INSULIN REGULAR (HUMAN) 100 UNIT/ML ONE (21:20)
[2024-03-15 22:21] VITALS: BMI 21.2
[2024-03-16] MEDS ORDERED: ACETAMINOPHEN 500 MG TAB ONE (01:38)
[2024-03-16] MEDS: ACETAMINOPHEN 500 MG TAB PO PRN (01:40)
[2024-03-16] MEDS ORDERED: NA CHLORIDE 0.9% 1,000 ML ONE (03:40)
[2024-03-16 05:48] LABS: Absolute Eosinophils 0.2 K/uL (0-0.5); Absolute Lymphocytes (CBC) 1.5 K/uL (0.7-4.9); Absolute Monocytes 0.7 K/uL (0.1-1.3); Absolute Neutrophil 4.4 K/uL (1.8-8.0); Basophils % 0.3 % (0-1.3); Hematocrit 31.7 % (39.6-49.0); Hemoglobin 11.2 g/dL (13.6-17.9); Lymphocytes % 21.6 % (15.3-44.8); MCH 30.5 pg (27.0-35.0); MCHC 35.3 g/dL (32.0-36.0); MCV 86.3 fL (80-100); MPV 7.7 fL (7.6-11.3); Monocytes % 9.6 % (3.3-12.3); Neutrophils % 65.5 % (41.7-73.7); Nucleated Red Blood Cells % 0.1 % (0-0); Platelets 268 thou/uL (152-406); RBC Red Blood Cell Count 3.67 M/uL (4.33-5.43); Red Cell Distribution Width 13.6 % (12.1-15.2)
[2024-03-16 06:05] LABS: ALT/SGPT < 14 U/L (16-61); AST/SGOT < 10 U/L (15-37); Albumin 2.3 g/dL (3.4-5.0); Albumin/Globulin Ratio 0.6 (1.1-1.8); Alkaline Phosphatase 78 U/L (45-117); Anion Gap 6.9 mEq/L (5.0-15.0); BUN Blood Urea Nitrogen 15 mg/dL (7-18); Bicarbonate 25 mEq/L (21-32); Bilirubin Total 0.3 mg/dL (0.2-1.0); Creatine Phosphokinase 75 U/L (39-308); Globulin 3.6 g/dL (2.3-3.5); Glomerular Filtration Rate 85 ml/min (=/>90); Glucose Level 288 mg/dL (74-106); HDL Cholesterol 56 mg/dL (40-60); LDL Cholesterol, Calculated 59 mg/dL (<130); LDL Cholesterol,Calc NonReport 59; Potassium 3.9 mEq/L (3.5-5.1); Protein, Total 5.9 g/dL (6.4-8.2); Sodium Level 134 mEq/L (136-145)
[2024-03-16] MEDS: LACTULOSE 20 GM/30 ML UCUP PO SCH (07:30)
[2024-03-16] MEDS ORDERED: LACTULOSE 20 GM/30 ML UCUP ONE (08:18)
--- NOTE | 2024-03-16 08:23 | RAD REPORT ---
EXAMINATION: US RETROPERITONEUM CLINICAL INDICATION: HS MAIN post obs hydro please do in am around 0700 TECHNIQUE: Real-time ultrasonography of the abdomen was performed. COMPARISON: CT abdomen pelvis 03/15/2024 FINDINGS: RIGHT KIDNEY: Right renal length measurement: 9.7 cm. Normal in echogenicity and size. No calculus, s olid mass or hydronephrosis. LEFT KIDNEY: Left renal length measurement: 10.0 cm. Normal in echogenicity and size. No calculus, or solid mass. Contour lobulation along the lower pole, with other less pronounced capsular lobulation bilaterally, favored to be developmental. Mild hydronephrosis. ADDITIONAL FINDINGS: None. IMPRESSION: Mild left hydronephrosis. Contour lobulation bilaterally most pronounced at the left lower pole, favo red to be developmental.
[2024-03-16] MEDS: ENOXAPARIN 40 MG/0.4 ML SQ SCH (09:00)
--- NOTE | 2024-03-16 19:32 | P.PN ---
Date of Service: 03/16/24 Subjective feeling better, understands need to maintain jensen and follow up, notified prostate and psa are significantly abnormal. Pt states understanding and says he knows he need to be more comliant Review of Systems 10-point ROS is otherwise unremarkable General: Fever, Chills, Weakness Eyes: Unremarkable ENT: Unremarkable Respiratory: Unremarkable Cardiovascular: Unremarkable Gastrointestinal: Constipation Genitourinary: Frequency, Retention, As per HPI Musculoskeletal: As per HPI Integumentary: Unremarkable Neurological: Unremarkable Lymphatics: Unremarkable - Physical Exam General: Alert, In no apparent distress, Oriented x3 HEENT: Atraumatic, Normocephalic Neck: Supple Respiratory: Clear to auscultation bilaterally, Normal air movement Cardiovascular: Normal pulses, Regular rate/rhythm, Other (Mildly tachycardic) Capillary refill: <2 Seconds Gastrointestinal: Soft and benign, Other (CT shows moderate to severe stool burden possibly impacting urinary retention causing hydronephrosis) Musculoskeletal: No clubbing, No swelling Integumentary: Other (Lipoma or cyst area to central epigastric area times months no noted infection or inflammation) Neurological: Normal speech, Normal tone, Normal affect Lymphatics: No axilla or inguinal lymphadenopathy Urinary: Jensen catheter (Jensen placed in ED for urinary retention), more clear today External genitalia: Deferred Rectal: Deferred Assessment and Plan 1. Emphysematous cystitis with hydronephrosis likely secondary to #2 and 3 2. LUTS 3. Constipation Gentle hydration Follow cultures Previous cultures mostly sensitive to Levaquin Will hold off on Merrem until forced to employ for bacteriocidal activity second to frequent recurrence and increasing resistance with noncompliance secondary to financial issues Jensen with strict I and O Constipation relief Complete renal ultrasound in a.m. to gauge reduction in hydronephrosis/hydroureter PSA- significantly elevated and pt encouraged to follow up with Urologist Diabetes with hyperglycemia secondary to noncompliance with metformin Fingerstick monitoring before meals and at bedtime with mild sliding scale cov erage Homelessness and resultant noncompliance with medications shared services manager as needed VTE/GI prophylaxis Discharge Plan: Home with jensen and po antibiotics Plan to discharge in: 28 Hours - Advance Directives Does patient have a Living Will: No Does patient have a Durable POA for Healthcare: No - Code Status/Comfort Care Code Status Assessed: Yes (Full)
[2024-03-16] MEDS: INSULIN GLARGINE 100 UNIT/ML SQ SCH (21:13)
[2024-03-16 22:57] VITALS: O2SAT 98
[2024-03-17 06:08] LABS: Absolute Eosinophils 0.1 K/uL (0-0.5); Absolute Lymphocytes (CBC) 1.1 K/uL (0.7-4.9); Absolute Monocytes 0.7 K/uL (0.1-1.3); Absolute Neutrophil 6.4 K/uL (1.8-8.0); Basophils % 0.3 % (0-1.3); Eosinophils % 1.2 % (0-4.4); Hematocrit 34.6 % (39.6-49.0); Hemoglobin 11.6 g/dL (13.6-17.9); Lymphocytes % 13.2 % (15.3-44.8); MCH 29.1 pg (27.0-35.0); MCHC 33.5 g/dL (32.0-36.0); MCV 86.9 fL (80-100); MPV 7.9 fL (7.6-11.3); Monocytes % 7.9 % (3.3-12.3); Neutrophils % 77.4 % (41.7-73.7); Platelets 277 thou/uL (152-406); RBC Red Blood Cell Count 3.98 M/uL (4.33-5.43); Red Cell Distribution Width 13.8 % (12.1-15.2)
[2024-03-17 06:30] LABS: AST/SGOT 12 U/L (15-37); Albumin 2.5 g/dL (3.4-5.0); Albumin/Globulin Ratio 0.6 (1.1-1.8); Alkaline Phosphatase 100 U/L (45-117); Anion Gap 7.1 mEq/L (5.0-15.0); BUN Blood Urea Nitrogen 17 mg/dL (7-18); Bicarbonate 27 mEq/L (21-32); Bilirubin Total 0.2 mg/dL (0.2-1.0); Globulin 4.1 g/dL (2.3-3.5); Glomerular Filtration Rate 96 ml/min (=/>90); Glucose Level 352 mg/dL (74-106); Potassium 4.1 mEq/L (3.5-5.1); Protein, Total 6.6 g/dL (6.4-8.2); Sodium Level 135 mEq/L (136-145)
[2024-03-17 06:31] LABS: ALT/SGPT < 14 U/L (16-61)
--- NOTE | 2024-03-17 09:42 | P.PN ---
Date of Service: 03/17/24 Subjective feeling better, understands need to maintain jensen and follow up, notified prostate and psa are significantly abnormal. Pt states understanding and says he knows he need to be more compliant Review of Systems 10-point ROS is otherwise unremarkable General: Fever, Chills, Weakness Eyes: Unremarkable ENT: Unremarkable Respiratory: Unremarkable Cardiovascular: Unremarkable Gastrointestinal: Constipation Genitourinary: Frequency, Retention, As per HPI Musculoskeletal: As per HPI Integumentary: Unremarkable Neurological: Unremarkable Lymphatics: Unremarkable - Physical Exam General: Alert, In no apparent distress, Oriented x3 HEENT: Atraumatic, Normocephalic Neck: Supple Respiratory: Clear to auscultation bilaterally, Normal air movement Cardiovascular: Normal pulses, Regular rate/rhythm, Other (Mildly tachycardic) Capillary refill: <2 Seconds Gastrointestinal: Soft and benign, Other (CT shows moderate to severe stool burden possibly impacting urinary retention causing hydronephrosis) Musculoskeletal: No clubbing, No swelling Integumentary: Other (Lipoma or cyst area to central epigastric area times months no noted infection or inflammation) Neurological: Normal speech, Normal tone, Normal affect Lymphatics: No axilla or inguinal lymphadenopathy Urinary: Jensen catheter (Jensen placed in ED for urinary retention), more clear today External genitalia: Deferred Rectal: Deferred Assessment and Plan 1. Emphysematous cystitis with hydronephrosis likely secondary to #2 and 3 2. LUTS 3. Constipation Gentle hydration Follow cultures Previous cultures mostly sensitive to Levaquin Will hold off on Merrem until forced to employ for bacteriocidal activity second to frequent recurrence and increasing resistance with noncompliance secondary to financial issues Jensen with strict I and O Constipation relief Complete renal ultrasound in a.m. to gauge reduction in hydronephrosis/hydroureter PSA- significantly elevated and pt encouraged to follow up with Urologist Will need to maintain jensen until f/u with Urology Hypertension with noncompliance as Jensen will need to be maintained and creatinine normal, will start Lisinopril to help maintain potassium and give diabetic renal protection Diabetes with hyperglycemia secondary to noncompliance with metformin Fingerstick monitoring before meals and at bedtime with mild sliding scale coverage Homelessness and resultant noncompliance with medications manager office services as needed VTE/GI prophylaxis Discharge Plan: Home with jensen and po antibiotics Plan to discharge in: 12-24 Hours - Advance Directives Does patient have a Living Will: No Does patient have a Durable POA for Healthcare: No - Code Status/Comfort Care Code Status Assessed: Yes (Full)
[2024-03-17] MEDS: MINERAL OIL 30 ML UCUP PO SCH (11:44)
[2024-03-17] MEDS: levoFLOXacin 500 MG TAB PO ONE (11:44)
[2024-03-17] MEDS: POLYETHYL GLY 3350 17 GM/DOSE PO SCH (16:38)
[2024-03-17] MEDS: BISACODYL 10 MG RECTAL SUPP PR ONE (16:38)
[2024-03-17] MEDS: INSULIN LISPRO 100 UNIT/1 ML SQ SCH (16:40)
--- NOTE | 2024-03-17 17:01 | P.DS ---
Admission Date: 03/15/24 Discharge Date: 03/18/24 Disposition: ROUTINE DISCHARGE Discharge Condition: GOOD Consultations: none Procedures: Bae placement Brief History of Present Illness: Mr. Maldonado is a 58-year-old gentleman with past medical history of diabetes, LUTS, hypertension, and homelessness. He does not follow-up with free clinics or take his medications as recommended. He removes his Bae catheters that are placed and then developed hydronephrosis and hydroureter secondary to enlarged prostate causing postobstructive uropathy. His hemoglobin A1c is 10.5. He has had multiple E. coli and K. oxytoca infections in his urine and receives IV antibiotics and then does not follow-up with his oral antibiotics on discharge. He presented to the emergency department on 03/15/2024 with similar symptoms with emphysematous cystitis with bilateral hydronephrosis and hydroureter with significant constipation. A Bae was placed in the ED with return of veronique urine. The emergency department had given 1 dose of cefepime. Previous cultures have been sensitive to Levaquin so will change to Levaquin IV for hospitalization with switch to p.o. on discharge. Vital Signs/Physical Exam: Temp Pulse Resp BP Pulse Ox 98.3 F 100 H 20 181/98 H 98 03/17/24 16:00 03/17/24 16:00 03/17/24 16:00 03/17/24 16:00 03/17/24 16:00 General: Alert, In no apparent distress, Oriented x3 HEENT: Atraumatic, Normocephalic, PERRLA Neck: Supple Respiratory: Clear to auscultation bilaterally, Normal air movement, Diminished Cardiovascular: No edema, Normal pulses, Regular rate/rhythm Capillary refill: <2 Seconds Gastrointestinal: Normal bowel sounds, Soft and benign Musculoskeletal: No clubbing Integumentary: No rashes Neurological: Normal speech, Normal tone, Normal affect Lymphatics: No axilla or inguinal lymphadenopathy Urinary: Bae catheter External genitalia: Deferred Rectal: Deferred Laboratory Data at Discharge: WBC 8.20 thou/uL (4.3-10.9) 03/17/24 05:38 Hgb 11.6 g/dL (13.6-17.9) L 03/17/24 05:38 Hct 34.6 % (39.6-49.0) L 03/17/24 05:38 Plt Count 277 thou/uL (152-406) 03/17/24 05:38 PT 10.6 SECONDS (9.4-12.5) 03/15/24 10:20 INR 0.94 03/15/24 10:20 APTT 31.8 SECONDS (24.3-36.9) 03/15/24 10:20 Sodium 135 mEq/L (136-145) L 03/17/24 05:38 Potassium 4.1 mEq/L (3.5-5.1) 03/17/24 05:38 BUN 17 mg/dL (7-18) 03/17/24 05:38 Creatinine 0.93 mg/dL (0.70-1.30) 03/17/24 05:38 Glucose 352 mg/dL (74-106) H 03/17/24 05:38 Total Bilirubin 0.2 mg/dL (0.2-1.0) 03/17/24 05:38 AST 12 U/L (15-37) L 03/17/24 05:38 ALT < 14 U/L (16-61) L 03/17/24 05:38 Alkaline Phosphatase 100 U/L (45-117) D 03/17/24 05:38 Triglycerides 101 mg/dL (<150) 03/16/24 05:22 Cholesterol 135 mg/dL (<200) 03/16/24 05:22 HDL Cholesterol 56 mg/dL (40-60) 03/16/24 05:22 Cholesterol/HDL Ratio 2.41 03/16/24 05:22 Home Medications: Codeine/APAP [Tylenol W/Codeine #3 tab] 1 tab PO Q6HP PRN #15 tab 12/31/23 Doxycycline Hyclate [Vibramycin] 100 mg PO BID #28 cap 12/31/23 Metformin HCl 1,000 mg PO BID #120 tab 03/17/24 levoFLOXacin [Levaquin*] 750 mg PO DAILY #7 tab 03/17/24 New Medications: levoFLOXacin [Levaquin*] 750 mg PO DAILY #7 tab Metformin HCl 1,000 mg PO BID #120 tab Diet: Regular Activity: Ad ismael Followup: Erik Louie MD [Primary Care Provider] -
[2024-03-17] MEDS: lisinopriL 5 MG TAB PO SCH (20:34)
[2024-03-18 06:14] LABS: Absolute Eosinophils 0.2 K/uL (0-0.5); Absolute Lymphocytes (CBC) 1.5 K/uL (0.7-4.9); Absolute Monocytes 0.5 K/uL (0.1-1.3); Absolute Neutrophil 3.9 K/uL (1.8-8.0); Basophils % 0.7 % (0-1.3); Hematocrit 33.4 % (39.6-49.0); Hemoglobin 11.7 g/dL (13.6-17.9); Lymphocytes % 23.5 % (15.3-44.8); MCH 30.4 pg (27.0-35.0); MCV 86.8 fL (80-100); MPV 7.5 fL (7.6-11.3); Monocytes % 8.7 % (3.3-12.3); Neutrophils % 63.1 % (41.7-73.7); Platelets 315 thou/uL (152-406); RBC Red Blood Cell Count 3.85 M/uL (4.33-5.43); Red Cell Distribution Width 13.5 % (12.1-15.2)
[2024-03-18 06:26] LABS: AST/SGOT 11 U/L (15-37); Albumin 2.7 g/dL (3.4-5.0); Albumin/Globulin Ratio 0.7 (1.1-1.8); Alkaline Phosphatase 117 U/L (45-117); Anion Gap 7.2 mEq/L (5.0-15.0); BUN Blood Urea Nitrogen 19 mg/dL (7-18); Bicarbonate 27 mEq/L (21-32); Bilirubin Total 0.2 mg/dL (0.2-1.0); Glomerular Filtration Rate 75 ml/min (=/>90); Glucose Level 350 mg/dL (74-106); Potassium 4.2 mEq/L (3.5-5.1); Protein, Total 6.7 g/dL (6.4-8.2); Sodium Level 134 mEq/L (136-145)
[2024-03-18 06:27] LABS: ALT/SGPT < 14 U/L (16-61)
[2024-03-18] MEDS: levoFLOXacin 500 MG TAB PO SCH (08:15)
[2024-03-18] MEDS ORDERED: MINERAL OIL ENEMA 135 ML BTL PR PRN (08:46)
[2024-03-19] MEDS: HYDRALAZINE HCL 20 MG/ML VIAL IV PRN (05:31)
[2024-03-19] MEDS: INSULIN LISPRO 100 UNIT/1 ML SQ SCH (08:30)
[2024-03-19] MEDS: MINERAL OIL ENEMA 135 ML BTL PR SCH (08:40)
[2024-03-19] MEDS: lisinopriL 10 MG TAB PO SCH (08:42)
--- NOTE | 2024-03-19 09:04 | P.DS ---
Admission Date: 03/15/24 Discharge Date: 03/19/24 Disposition: ROUTINE DISCHARGE Discharge Condition: GOOD Consultations: none Procedures: Bae placement Brief History of Present Illness: Mr. Maldonado is a 58-year-old gentleman with past medical history of diabetes, LUTS, hypertension, and homelessness. He does not follow-up with free clinics or take his medications as recommended. He removes his Bae catheters that are placed and then developed hydronephrosis and hydroureter secondary to enlarged prostate causing postobstructive uropathy. His hemoglobin A1c is 10.5. He has had multiple E. coli and K. oxytoca infections in his urine and receives IV antibiotics and then does not follow-up with his oral antibiotics on discharge. He presented to the emergency department on 03/15/2024 with similar symptoms with emphysematous cystitis with bilateral hydronephrosis and hydroureter with significant constipation. A Bae was placed in the ED with return of veronique urine. The emergency department had given 1 dose of cefepime. Previous cultures have been sensitive to Levaquin so will change to Levaquin IV for hospitalization with switch to p.o. on discharge. Hospital Course: Mr. Maldonado is a 58-year-old, pleasant gentleman who is unfortunately noncompliant with medication regimens for hypertension, diabetes, and and lower urinary tract symptoms. He will need to be discharged with the Bae secondary to multiple episodes of urinary retention causing hydroureter/hydronephrosis. We encouraged him to follow-up with [facility] for help with diabetic m edications and education to attempt to control his blood sugar. We will attempt to begin lisinopril for renal protection and hypertension with the addition of tamsulosin for its antihypertensive effects while attempting to decrease LUTS symptomatology. He will also need Cipro 500 mg twice daily for infection/risk secondary to uncontrolled diabetes, nephro/neurogenic bladder, prostamegaly, and frequent urinary tract infections. Vital Signs/Physical Exam: Temp Pulse Resp BP Pulse Ox 98.1 F 116 H 16 104/65 99 03/19/24 08:00 03/19/24 08:42 03/19/24 08:00 03/19/24 08:42 03/19/24 08:00 General: Alert, In no apparent distress, Oriented x3 HEENT: Atraumatic, Normocephalic Neck: Supple Respiratory: Clear to auscultation bilaterally, Normal air movement Cardiovascular: No edema, Regular rate/rhythm Capillary refill: <2 Seconds Gastrointestinal: Normal bowel sounds, Soft and benign Musculoskeletal: No clubbing, No swelling Integumentary: No rashes, No breakdown Neurological: Normal gait, Normal tone, Normal affect Lymphatics: No axilla or inguinal lymphadenopathy Urinary: Bae catheter External genitalia: Deferred Rectal: Deferred Laboratory Data at Discharge: WBC 6.20 thou/uL (4.3-10.9) 03/18/24 05:47 Hgb 11.7 g/dL (13.6-17.9) L 03/18/24 05:47 Hct 33.4 % (39.6-49.0) L 03/18/24 05:47 Plt Count 315 thou/uL (152-406) 03/18/24 05:47 PT 10.6 SECONDS (9.4-12.5) 03/15/24 10:20 INR 0.94 03/15/24 10:20 APTT 31.8 SECONDS (24.3-36.9) 03/15/24 10:20 Sodium 134 mEq/L (136-145) L 03/18/24 05:47 Potassium 4.2 mEq/L (3.5-5.1) 03/18/24 05:47 BUN 19 mg/dL (7-18) H 03/18/24 05:47 Creatinine 1.14 mg/dL (0.70-1.30) 03/18/24 05:47 Glucose 350 mg/dL (74-106) H 03/18/24 05:47 Total Bilirubin 0.2 mg/dL (0.2-1.0) 03/18/24 05:47 AST 11 U/L (15-37) L 03/18/24 05:47 ALT < 14 U/L (16-61) L 03/18/24 05:47 Alkaline Phosphatase 117 U/L (45-117) 03/18/24 05:47 Triglycerides 101 mg/dL (<150) 03/16/24 05:22 Cholesterol 135 mg/dL (<200) 03/16/24 05:22 HDL Cholesterol 56 mg/dL (40-60) 03/16/24 05:22 Cholesterol/HDL Ratio 2.41 03/16/24 05:22 Home Medications: Codeine/APAP [Tylenol W/Codeine #3 tab] 1 tab PO Q6HP PRN #15 tab 12/31/23 Doxycycline Hyclate [Vibramycin] 100 mg PO BID #28 cap 12/31/23 Ciprofloxacin HCl [Cipro] 500 mg PO BID #20 03/19/24 Metformin HCl 1,000 mg PO BID #60 03/19/24 lisinopriL [Prinivil*] 10 mg PO DAILY #90 tab 03/19/24 New Medications: Ciprofloxacin HCl [Cipro] 500 mg PO BID #20 Metformin HCl 1,000 mg PO BID #60 lisinopriL [Prinivil*] 10 mg PO DAILY #90 tab Diet: ADA Activity: Ad ismael Followup: Erik Louie MD [Primary Care Provider] -
[2024-03-19 12:22] VITALS: BP 135/85; TEMP 97.7
[2024-03-19] MEDS ORDERED: INSULIN GLARGINE 100 UNIT/ML SQ SCH (20:00)
== END 2024-03-19 13:21 | disposition home or self-care (01) | DRG 698 ==
LOC: ER 10:00 → ERHOLD 15:08 → 2ND 03-16 11:12
PROVIDERS: ADMIT Internal Medicine; ATTEND Internal Medicine
PROC: 0T9B70Z Drainage of Bladder with Drainage Device, Via Natural or Artificial Opening (ICD-10-PCS; principal; 2024-03-15)
DX: T83.518A Infection and inflammatory reaction due to other urinary catheter, initial encounter (principal); A41.9 Sepsis, unspecified organism; R65.20 Severe sepsis without septic shock; Z59.00 Homelessness unspecified; N13.6 Pyonephrosis; Z16.20 Resistance to unspecified antibiotic; E11.65 Type 2 diabetes mellitus with hyperglycemia; I10 Essential (primary) hypertension; K59.00 Constipation, unspecified; N40.1 Benign prostatic hyperplasia with lower urinary tract symptoms; T38.3X6A Underdosing of insulin and oral hypoglycemic [antidiabetic] drugs, initial encounter; R33.8 Other retention of urine; Z79.84 Long term (current) use of oral hypoglycemic drugs; Z79.899 Other long term (current) drug therapy; Z91.141 Patient's other noncompliance with medication regimen due to financial hardship
CPT/HCPCS: 36415; 51702; 74177; 76770; 80053; 80061; 81001; 82550; 82947; 83036; 83605; 85025; 85610; 85730; 87040; 87086; 87088; 96365; 96366; 96375; 99285; G0103; J0360; J0692; J1650; J7030; Q9967

== ENCOUNTER 2024-03-25 10:36 | Emergency (ER) | payer SELFPAY ==
--- OUTSIDE RECORDS SUMMARY | 2024-03-25 10:42 | XMS REPORT | Continuity of Care Document ---
Author Name Unknown Address [address] [facility] [address] [place] [address] [facility] thconnect Address [address] [facility] [address] [place] [address] Care Team Providers Care Director Of Casework Department Name Role Phone Erik Louie Jr. Primary Care Physician + [phone] Cosme Cardona DO Attending Clinician [phone] Solo CHONG, Lyubov Hilton Attending Clinician [phone] Rosalie Irizarry RN Attending Clinician [phone] Miguel CHONG, Ricky K.H. Attending Clinician + [phone] Umang Reynaga MD Attending Clinician [phone] Jerry Fields DO Attending Clinician [phone] Vimal Quiñones MD Attending Clinician [phone] Jeannette Dawn LVN Attending Clinician + [phone] PARVEZ MONROE Attending Clinician Unavailable Sergio Aponte MD Attending Clinician [phone] Bret Banda MD Attending Clinician [phone] Parvez Monroe MD Attending Clinician [phone] Solo CHONG, Lyubov Hilton Admitting Clinician [phone] Jerry Fields DO Admitting Clinician [phone] PARVEZ MONROE Admitting Clinician Unavailable Parvez Monroe MD Admitting Clinician Problems Condition Name Condition Details Condition Category Status Onset Date Resolution Date Last Treatment Date Treating Clinician Comments Source Elevated troponin I level Elevated troponin I level Disease Active 08-14 00:00: 00 [facility] Elevated brain natriureti c peptide (BNP) level Elevated brain natriureti c peptide (BNP) level Disease Active 08-14 00:00: 00 [facility] Essential hypertensi on Essential hypertensi on Disease Active 08-14 00:00: 00 [facility] ELIEZER (acute kidney injury) ELIEZER (acute kidney injury) Disease Active 08-14 00:00: 00 [facility] Type 2 diabetes mellitus with other specified complicati on Type 2 diabetes mellitus with other specified complicati on Disease Active 08-14 00:00: 00 [facility] Hypertensi on, unspecifie d type Hypertensi on, unspecifie d type Disease Active 08-13 00:00: 00 [facility] NSTEMI (non-ST elevated myocardial infarction ) NSTEMI (non-ST elevated myocardial infarction ) Disease Active 2022-04 00:00: 00 [facility] Allergies, Adverse Reactions, Alerts Allergy Name Allergy Type Status Severity Reaction(s) Onset Date Inactive Date Treating Clinician Comments Source NO KNOWN ALLERGIE S Drug Class Active [facility] Social History Social Habit Start Date Stop Date Quantity Comments Source [facility] function 2023-08-23 00:00:00 2023-08-23 00:00:00 [facility] Alcohol intake 2023-08-22 00:00:00 2023-08-22 00:00:00 Lifetime non-drinker (finding) [facility] Tobacco use and exposure 2023-04-21 00:00:00 2023-04-21 00:00:00 Smokeless tobacco non-user [facility] Sex Ass[birth year] At 1965 00:00:00 1965 00:00:00 [facility] Smoking Status Start Date Stop Date Source Never smoked tobacco [facility] Medications Ordered Medication Name Filled Medication Name Start Date Stop Date Current Medication? Ordering Clinician Indication Dosage Frequency Signature (SIG) Comments Components Source acarbose 25 mg tablet 08-23 00:00: 00 Yes [id number] 25mg Take 1 tablet by mouth in the morning and 1 tablet at noon and 1 tablet in the evening. Take with meals. [facility] metFORMIN 500 mg 24 hr tablet 08-23 00:00: 09-23 04:59 :00 No [id number] 500mg Take 1 tablet by mouth in the morning and 1 tablet in the evening. Take with meals. Do all this for 30 days. [facility] amLODIPine 10 mg tablet 08-23 00:00: 09-23 04:59 :00 No [id number] 10mg Take 1 tablet by mouth in the morning for 30 days. [facility] tamsulosin 0.4 mg 24 hr capsule 08-23 00:00: 09-23 04:59 :00 No [id number] .4mg Take 1 capsule by mouth in the morning for 30 days. [facility] levoFLOXaci n 500 mg tablet 08-23 00:00: 00 08-26 04:59 :00 No [id number] 500mg Take 1 tablet by mouth every 24 (twenty-fo ur) hours for 2 days. [facility] cefTRIAXone (ROCEPHIN) 1,000 mg in [...] Urine
D uration of therapy: Once (ED) [facility] D5W IV infusion 1,000 mL 08-22 15:00: 00 08-22 16:53 :22 No 1000mL at 50 mL/hr, IV Infusion, ONCE, 1 dose, On Wed08/23/23 at 1000, Routine [facility] amLODIPine (NORVASC) tablet 5 mg 08-22 14:00: 00 Yes 5mg 5 mg, Oral, DAILY, First dose on Wed08/23/23 at 0900, Until Discontinu ed, Routine [facility] D5W 0.45% NaCl (1/2NS) IV infusion 1,000 mL 08-22 02:29: 00 08-23 17:53 :57 No 1000mL at 75 mL/hr, 1,000 mL, IV Infusion, CONTINUOUS , Starting on Wed08/22/23 at 2130, Until Wed08/24/23 at 1253, Routine [facility] D5W IV infusion 1,000 mL 08-21 21:30: 00 08-22 02:27 :22 No 1000mL at 100 mL/hr, IV Infusion, CONTINUOUS , Starting on Wed08/22/23 at 1630, Until Wed08/22/23 at 2127, Routine [facility] Sliding Scale Insulin - Lispro (HumaLOG) 08-21 21:00: 00 Yes Subcutaneo us, Q4H, First dose on Wed08/22/23 at 1600, Until Discontinu ed, Routine [facility] glucagon (GLUCAGEN DIAGNOSTIC KIT) injection 1 mg 08-21 20:17: 12 Yes 1mg 1 mg, Intramuscu lar, PRN, Starting on Wed08/22/23 at 1517, Until Discontinu ed, HAO, Blood Glucose < or = 70 mg/dL and patient is NPO, unable to swallow or has mental changes. [facility] dextrose 50 % in water (D50W) injection 25 mL 08-21 20:17: 12 Yes 25mL 25 mL, Slow IV Push, PRN, Starting on Wed08/22/23 at 1517, Until Discontinu ed, HAO, Blood Glucose < or = 70 mg/dL and patient is NPO, unable to swallow or has mental status changes. [facility] D5W IV infusion 1,000 mL 08-21 17:45: 00 08-21 20:16 :11 No 1000mL at 100 mL/hr, IV Infusion, CONTINUOUS , Starting on Wed08/22/23 at 1245, Until Wed08/22/23 at 1516, Routine [facility] tamsulosin (FLOMAX) capsule 0.4 mg 08-21 14:00: 00 Yes .4mg 0.4 mg, Oral, DAILY, First dose on Wed08/22/23 at 0900, Until Discontinu ed, Routine [facility] docusate (COLACE) capsule 100 mg 08-21 13:00: 00 Yes 100mg 100 mg, Oral, BID, First dose on Wed08/22/23 at 0800, Until Discontinu ed, Routine [facility] heparin (porcine) injection 5,000 Units 08-21 13:00: 00 Yes 5000U 5,000 Units, Subcutaneo us, Q12H, First dose on Wed08/22/23 at 0800, Until Discontinu ed, Routine [facility] D5W 0.45% NaCl (1/2NS) IV infusion 1,000 mL 08-21 06:15: 00 08-21 16:44 :38 No 1000mL at 100 mL/hr, 1,000 mL, IV Infusion, CONTINUOUS , Starting on Wed08/22/23 at 0115, Until Wed08/22/23 at 1144, Routine [facility] D5W 0.45% NaCl (1/2NS) Bolus infusion 1,000 mL 08-21 06:00: 00 08-21 06:21 :00 No 1000mL at 999 mL/hr, 1,000 mL, IV Infusion, ONCE, 1 dose, On Wed08/22/23 at 0100, Routine [facility] NaCl 0.9% (NS) bolus infusion 1,000 mL 08-21 04:15: 00 08-21 05:05 :00 No 1000mL at 999 mL/hr, 1,000 mL, IV Infusion, ONCE, 1 dose, On 08/21/23 at 2315, STAT [facility] bisacodyL (DULCOLAX) tablet 10 mg 08-21 04:02: 51 Yes 10mg 10 mg, Oral, QDAILYPRN, Starting on 08/21/23 at 2302, Until Discontinu ed, Routine, Constipati on [facility] ondansetron (ZOFRAN (PF)) injection 4 mg 08-21 04:02: 17 Yes 4mg 4 mg, Slow IV Push, Q6HPRN, Starting on 08/21/23 at 2302, Until Discontinu ed, Routine, Nausea and Vomiting (N/V) [facility] FENTanyl PF (SUBLIMAZE (PF)) injection 12.5 mcg 08-21 04:02: 09 08-22 04:01 :09 No 12.5ug 12.5 mcg, Slow IV Push, Q6HPRN, Starting on 08/21/23 at 2302, Until 08/22/23 at 2301, Routine, Pain (scale 7-10), Pain (scale 4-6) [facility] acetaminoph en (TYLENOL) tablet 650 mg 08-21 04:01: 56 Yes 650mg 650 mg, Oral, Q6HPRN, Starting on 08/21/23 at 2301, Until Discontinu ed, Routine, Pain (scale 1-3) [facility] magnesium citrate solution 296 mL 08-21 01:45: 00 08-21 01:25 :00 No 296mL 296 mL, Oral, ONCE, 1 dose, On 08/21/23 at 2045, Routine [facility] amLODIPine 5 mg tablet 08-16 00:00: 00 08-23 00:00 :00 No [id number] 5mg Take 1 tablet by mouth in the morning for 30 days. [facility] lactulose (CEPHULAC) solution 45 mL 08-15 15:45: 00 08-15 15:21 :00 No 45mL 45 mL, Oral, ONCE, 1 dose, On Wed08/16/23 at 1045, Routine [facility] amLODIPine (NORVASC) tablet 5 mg 08-15 14:00: 00 Yes 5mg 5 mg, Oral, DAILY, First dose on Wed08/16/23 at 0900, Until Discontinu ed, Routine [facility] sennosides (SENOKOT) tablet 8.6 mg 08-15 14:00: 00 Yes 8.6mg 8.6 mg, Oral, DAILY, First dose on Wed08/16/23 at 0900, Until Discontinu ed, Routine [facility] losartan (COZAAR) tablet 25 mg 08-15 14:00: 00 Yes 25mg 25 mg, Oral, DAILY, First dose (after last modificati on) on Wed08/16/23 at 0900, Until Discontinu ed, Routine [facility] docusate (COLACE) capsule 100 mg 08-15 13:00: 00 Yes 100mg 100 mg, Oral, BID, First dose on Wed08/16/23 at 0800, Until Discontinu ed, Routine [facility] lactulose (CEPHULAC) solution 30 mL 08-15 10:00: 00 08-15 09:33 :00 No 30mL 30 mL, Oral, ONCE, 1 dose, On Wed08/16/23 at 0500, Routine [facility] metFORMIN 500 mg 24 hr tablet 08-15 00:00: 00 08-23 00:00 :00 No [id number] 500mg Take 1 tablet by mouth in the morning and 1 tablet in the evening. Take with meals. Do all this for 30 days. [facility] acarbose 25 mg tablet 08-15 00:00: 00 08-23 00:00 :00 No [id number] 25mg Take 1 tablet by mouth in the morning and 1 tablet at noon and 1 tablet in the evening. Take with meals. Do all this for 30 days. [facility] pioglitazon e 15 mg tablet 08-15 00:00: 00 08-23 00:00 :00 No [id number] 15mg Take 1 tablet by mouth in the morning for 30 days. [facility] tamsulosin 0.4 mg 24 hr capsule 08-15 00:00: 00 08-23 00:00 :00 No [id number] .4mg Take 1 capsule by mouth in the morning for 30 days. [facility] losartan 25 mg tablet 08-15 00:00: 00 08-23 00:00 :00 No [id number] 25mg Take 1 tablet by mouth in the morning for 30 days. [facility] glipiZIDE (GLUCOTROL) tablet 5 mg 08-14 21:30: 00 Yes 5mg 5 mg, Oral, BIDAC, First dose on 08/15/23 at 1630, Until Discontinu ed, Routine [facility] KCL (KLOR-CON M20) tablet 40 mEq 08-14 21:30: 00 08-14 21:21 :00 No 40meq 40 mEq, Oral, ONCE, 1 dose, On 08/15/23 at 1630, Routine [facility] pioglitazon e (ACTOS) tablet 7.5 mg 08-14 17:00: 00 08-15 12:47 :51 No 7.5mg 7.5 mg, Oral, DAILY, First dose on 08/15/23 at 1200, Until Discontinu ed, Routine [facility] tamsulosin (FLOMAX) capsule 0.4 mg 08-14 15:49: 00 Yes .4mg 0.4 mg, Oral, DAILY, First dose on 08/15/23 at 1100, Until Discontinu ed, Routine [facility] amLODIPine (NORVASC) tablet 10 mg 08-14 14:00: 00 08-14 15:51 :30 No 10mg 10 mg, Oral, DAILY, First dose on 08/15/23 at 0900, Until Discontinu ed, Routine [facility] heparin (porcine) injection 5,000 Units 08-14 03:00: 00 08-14 06:07 :44 No 5000U 5,000 Units, Subcutaneo us, Q8H, First dose on 08/14/23 at 2200, Until Discontinu ed, Routine [facility] Sliding Scale Insulin - Lispro (HumaLOG) 08-14 02:00: 00 08-14 18:06 :14 No Subcutaneo us, TID MEALS+HS, First dose on 08/14/23 at 2100, Until Discontinu ed, Routine [facility] glucagon (GLUCAGEN DIAGNOSTIC KIT) injection 1 mg 08-14 00:36: 37 Yes 1mg 1 mg, Intramuscu lar, PRN, Starting on 08/14/23 at 1936, Until Discontinu ed, HAO, Blood Glucose < or = 70 mg/dL and patient is NPO, unable to swallow or has mental changes. [facility] dextrose 50 % in water (D50W) injection 25 mL 08-14 00:36: 37 Yes 25mL 25 mL, Slow IV Push, PRN, Starting on 08/14/23 at 1936, Until Discontinu ed, HAO, Blood Glucose < or = 70 mg/dL and patient is NPO, unable to swallow or has mental status changes. [facility] acetaminoph en (TYLENOL) tablet 650 mg 08-14 00:36: 24 Yes 650mg 650 mg, Oral, Q6HPRN, Starting on 08/14/23 at 1936, Until Discontinu ed, Routine, Pain (scale 1-3) [facility] aspirin chewable tablet 324 mg 08-13 23:15: 00 08-13 22:56 :00 No [id number] 324mg 324 mg, Oral, ONCE, 1 dose, On 08/14/23 at 1815, HAO [facility] lidocaine 2% viscous (LIDOCAINE VISCOUS) 2 % solution 15 mL 08-13 23:00: 00 08-13 22:10 :00 No [id number] 15mL 15 mL, Oral, ONCE, 1 dose, On 08/14/23 at 1800, Routine [facility] KCL (KLOR-CON M20) tablet 20 mEq 08-13 22:30: 00 08-13 22:59 :00 No [id number] 20meq 20 mEq, Oral, ONCE, 1 dose, On 08/14/23 at 1730, [facility] metoprolol tartrate (LOPRESSOR) tablet 50 mg 08-13 22:00: 00 08-13 22:58 :00 No [id number] 50mg 50 mg, Oral, ONCE, 1 dose, On 08/14/23 at 1700, [facility] iopamidol (ISOVUE 370-500 mL) injection 80 mL 08-13 21:30: 00 08-13 21:45 :00 No [id number] 80mL 80 mL, Intravenou s, ONCE, 1 dose, On 08/14/23 at 1645, Routine [facility] acetaminoph en (TYLENOL) tablet 650 mg 08-13 21:15: 00 08-13 22:57 :00 No [id number] 650mg 650 mg, Oral, ONCE, 1 dose, On 08/14/23 at 1615, [facility] amLODIPine (NORVASC) tablet 5 mg 08-13 21:15: 00 08-13 22:58 :00 No [id number] 5mg 5 mg, Oral, ONCE, 1 dose, On 08/14/23 at 1615, [facility] NaCl 0.9% (NS) bolus infusion 1,000 mL 08-13 21:15: 00 08-13 21:50 :00 No [id number] 1000mL at 999 mL/hr, 1,000 mL, IV Infusion, ONCE, 1 dose, On 08/14/23 at 1615, [facility] insulin NPH (HUMULIN N) injection 9 Units 2022-04 14:00: 00 Yes 9U 9 Units, Subcutaneo us, QAM WITH BREAKFAST, First dose (after last modificati on) on Wed04/24/23 at 0800, Until Discontinu ed, Routine [facility] losartan 25 mg tablet 2022-04 00:00: 00 08-15 00:00 :00 No [id number] 25mg Take 1 tablet by mouth in the morning. [facility] tamsulosin (FLOMAX) 0.4 mg 24 hr capsule 2022-04 00:00: 00 08-15 00:00 :00 No [id number] .4mg Take 1 capsule by mouth in the morning. [facility] metFORMIN 500 mg tablet 2022-04 00:00: 00 05-23 05:59 :00 No [id number] Take 1 tablet by mouth 2 (two) times daily with meals for 7 days, THEN 2 tablets 2 (two) times daily with meals for 21 days. [facility] insulin lispro (human) (HumaLOG U-100) injection 3 Units 2022-04 23:00: 00 Yes 3U 3 Units, Subcutaneo us, TID MEALS, First dose (after last modificati on) on Wed04/23/23 at 1700, Until Discontinu ed, Routine [facility] insulin NPH (HUMULIN N) injection 5 Units 2022-04 23:00: 00 Yes 5U 5 Units, Subcutaneo us, QPM, First dose (after last modificati on) on Wed04/23/23 at 1700, Until Discontinu ed, Routine [facility] losartan (COZAAR) tablet 25 mg 2022-04 15:00: 00 Yes 25mg 25 mg, Oral, DAILY, First dose on Wed04/23/23 at 0900, Until Discontinu ed, Routine [facility] Potassium Bicarb-Citr ic Acid (EFFER-K) effervescen t tablet 40 mEq 2022-04 13:00: 00 04-23 13:33 :00 No 40meq 40 mEq, Oral, ONCE, 1 dose, On Wed04/23/23 at 0700, Routine [facility] ramelteon (ROZEREM) tablet 8 mg 2022-04 10:45: 00 04-23 10:51 :00 No 8mg 8 mg, Oral, ONCE NOW, 1 dose, On Wed04/23/23 at 0500, Routine [facility] Blood-Gluco se Meter (ACCU-CHEK GUIDE GLUCOSE METER) [facility] 2022-04 00:00: 00 Yes [id number] Use as directed [facility] lancets [address] [facility] 2022-04 00:00: 00 Yes [id number] Use as directed [facility] blood sugar diagnostic (ACCU-CHEK GUIDE TEST STRIPS) strip 2022-04 00:00: 00 Yes [id number] Use as directed [facility] pioglitazon e 15 mg tablet 2022-04 00:00: 00 08-15 00:00 :00 No [id number] 7.5mg Take 0.5 tablets by mouth in the morning. [facility] acarbose 25 mg tablet 2022-04 00:00: 00 08-15 00:00 :00 No [id number] 25mg Take 1 tablet by mouth in the morning and 1 tablet at noon and 1 tablet in the evening. Take with meals. [facility] atorvastati n 80 mg tablet 2022-04 00:00: 00 05-24 05:59 :00 No [id number] 80mg Take 1 tablet by mouth at bedtime for 30 days. [facility] glipiZIDE 5 mg tablet 2022-04 00:00: 00 05-24 05:59 :00 No [id number] 5mg Take 1 tablet by mouth 2 (two) times daily before breakfast and dinner for 30 days. [facility] enoxaparin (LOVENOX) injection 40 mg 2022-04 15:00: 00 Yes 40mg 40 mg, Subcutaneo us, DAILY, First dose on Wed04/22/23 at 0900, Until Discontinu ed, Routine [facility] insulin NPH (HUMULIN N) injection 8 Units 2022-04 14:00: 00 04-23 19:10 :37 No 8U 8 Units, Subcutaneo us, QAM WITH BREAKFAST, First dose on Wed04/22/23 at 0800, Until Discontinu ed, Routine [facility] insulin NPH (HUMULIN N) injection 4 Units 2022-04 23:00: 00 04-23 19:10 :37 No 4U 4 Units, Subcutaneo us, QPM, First dose on Wed04/21/23 at 1700, Until Discontinu ed, [facility] lispro (human) (HumaLOG U-100) injection 2 Units 2022-04 23:00: 00 04-23 19:10 :37 No 2U 2 Units, Subcutaneo us, TID MEALS, First dose (after last modificati on) on Wed04/21/23 at 1700, Until Discontinu ed, Routine [facility] NaCl 0.9% (NS) IV infusion 250 mL 2022-04 21:15: 00 04-22 20:03 :10 No [id number] 250mL at 20 mL/hr, IV Infusion, CONTINUOUS , Starting on Wed04/21/23 at 1515, Until Wed04/22/23 at 1403, Routine
To keep vein open
[facility] perflutren lipid microsphere s (DEFINITY) injection 2 mL 2022-04 21:00: 00 04-21 20:15 :00 No [id number] 2mL 2 mL, IV Push, ONCE, 1 dose, On Wed04/21/23 at 1500, Routine [facility] atropine injection 1 mg 2022-04 21:00: 00 04-21 20:44 :00 No [id number] 1mg 1 mg, Slow IV Push, ONCE, 1 dose, On Wed04/21/23 at 1500, Routine [facility] DOBUTamine (DOBUTREX) 250 mg/250 mL RTU infusion 2022-04 20:13: 51 04-22 20:03 :10 No [id number] 5ug/kg/ min 5 mcg/kg/min ?59 kg (17.7 [...] the Dobutamine infusion. (see Adjunctive Therapy)<b r> [facility] perflutren protein-A microsphr (OPTISON) injection 3 mL 2022-04 17:15: 00 04-21 15:22 :00 No [id number] 3mL 3 mL, IV Push, ONCE, 1 dose, On Wed04/21/23 at 1115, Routine [facility] potassium chloride in water 10 mEq/100 mL RTU 10 mEq 2022-04 17:00: 00 04-21 20:59 :00 No 10meq 10 mEq, IV Piggyback, Q1H, 4 doses, First dose (after last reorder) on Wed04/21/23 at 1100, Last dose on Wed04/21/23 at 1400, Administer over 60 Minutes, 100 mL [facility] tamsulosin (FLOMAX) capsule 0.4 mg 2022-04 15:00: 00 Yes .4mg 0.4 mg, Oral, DAILY, First dose on Wed04/21/23 at 0900, Until Discontinu ed, Routine [facility] aspirin chewable tablet 81 mg 2022-04 15:00: 00 04-22 16:28 :38 No 81mg 81 mg, Oral, DAILY, First dose on Wed04/21/23 at 0900, Until Discontinu ed, Routine [facility] aspirin tablet 325 mg 2022-04 15:00: 00 04-21 06:21 :21 No 325mg 325 mg, Oral, DAILY, First dose on Wed04/21/23 at 0900, Until Discontinu ed, Routine [facility] Sliding Scale Insulin - Lispro (HumaLOG) 2022-04 14:00: 00 Yes Subcutaneo us, TID MEALS+HS, First dose on Wed04/21/23 at 0800, Until Discontinu ed, Routine [facility] magnesium sulfate in water 2 gram/50 mL (4 %) infusion 2 g 2022-04 12:30: 00 04-21 15:11 :00 No 2g 2 g, IV Piggyback, Administer over 60 Minutes, ONCE, 1 dose, On Wed04/21/23 at 0630, Routine [facility] Potassium Bicarb-Citr ic Acid (EFFER-K) effervescen t tablet 40 mEq 2022-04 12:30: 00 04-21 12:36 :00 No 40meq 40 mEq, Oral, ONCE, 1 dose, On Wed04/21/23 at 0630, Routine [facility] insulin glargine (LANTUS U-100) injection 9 Units 2022-04 07:45: 00 04-21 21:08 :08 No .15U/kg /d 9 Units (rounded from 8.745 Units = 0.15 Units/kg/d ay ?58.3 kg), Subcutaneo us, QHS, First dose (after last modificati on) on Wed04/21/23 at 0145, Until Discontinu ed, Routine [facility] atorvastati n (LIPITOR) tablet 80 mg 2022-04 06:30: 00 Yes 80mg 80 mg, Oral, QHS, First dose on Wed04/21/23 at 0030, Until Discontinu ed, Routine [facility] dextrose 50 % in water (D50W) injection 25 mL 2022-04 06:24: 50 Yes 25mL 25 mL, Slow IV Push, PRN, Starting on Wed04/21/23 at 0024, Until Discontinu ed, HAO, Blood Glucose < or = 70 mg/dL and patient is NPO, unable to swallow or has mental status changes. [facility] acetaminoph en (TYLENOL) tablet 650 mg 2022-04 05:53: 21 Yes 650mg 650 mg, Oral, Q6HPRN, Starting on Wed04/20/23 at 2353, Until Discontinu ed, Routine, Pain (scale 1-3) [facility] NaCl 0.9% (NS) bolus infusion 1,000 mL 2022-04 04:00: 00 04-21 03:45 :00 No 1000mL at 999 mL/hr, 1,000 mL, IV Infusion, ONCE, 1 dose, On Wed04/20/23 at 2200, STAT [facility] clopidogreL (PLAVIX) 300 mg tablet 300 mg 2022-04 03:30: 00 04-21 02:50 :00 No 300mg 300 mg, Oral, ONCE, 1 dose, On Wed04/20/23 at 2130, HAO [facility] HEPARIN SODIUM (PORCINE) 1,000 UNIT/ML BOLUS ACS ORDER SET 2022-04 02:45: 00 04-21 02:53 :00 No 60U/kg 3,540 Units (60 Units/kg ?59 kg), IV Push, ONCE, 1 dose, On Wed04/20/23 at 2044, HAO [facility] heparin 25,000 Units/250 mL (Premixed [...] INITIAL BOLUS OR INITIAL INFUSION RATE.
[facility] Vital Signs Vital Name Observation Time Observation Value Comments S ource Systolic blood pressure 2023-08-24 13:02:00 150 mm[Hg] [facility] Diastolic blood pressure 2023-08-24 13:02:00 88 mm[Hg] [facility] Heart rate 2023-08-24 13:02:00 79 /min [facility] Body temperature 2023-08-24 13:02:00 36.44 Deya [facility] Respiratory rate 2023-08-24 13:02:00 14 /min [facility] Oxygen saturation in Arterial blood by Pulse oximetry 2023-08-24 13:02:00 98 /min [facility] Body weight 2023-08-24 08:43:00 58.469 kg [facility] BMI 2023-08-24 08:43:00 22.83 kg/m2 [facility] Body height 2023-08-22 04:52:00 160 cm [facility] Systolic blood pressure 2023-08-16 16:53:00 154 mm[Hg] [facility] Diastolic blood pressure 2023-08-16 16:53:00 94 mm[Hg] [facility] Heart rate 2023-08-16 16:53:00 82 /min [facility] Body temperature 2023-08-16 16:53:00 36.61 Deya [facility] Respiratory rate 2023-08-16 16:53:00 16 /min [facility] Oxygen saturation in Arterial blood by Pulse oximetry 2023-08-16 16:53:00 99 /min [facility] Body weight 2023-08-16 09:56:00 56.473 kg [facility] BMI 2023-08-16 09:56:00 22.05 kg/m2 [facility] Body height 2023-08-15 04:07:00 160 cm [facility] Systolic blood pressure 2023-04-23 18:11:00 141 mm[Hg] [facility] Diastolic blood pressure 2023-04-23 18:11:00 80 mm[Hg] [facility] Heart rate 2023-04-23 18:11:00 101 /min [facility] Body temperature 2023-04-23 18:11:00 35.89 Deya [facility] Respiratory rate 2023-04-23 18:11:00 18 /min [facility] Oxygen saturation in Arterial blood by Pulse oximetry 2023-04-23 18:11:00 98 /min [facility] Body weight 2023-04-22 09:57:00 57.561 kg [facility] BMI 2023-04-22 09:57:00 22.48 kg/m2 [facility] Body height 2023-04-21 20:00:00 160 cm [facility] Procedures Procedure Date / Time Performed Performing Clinician Source POCT GLUCOSE (AUTOMATED) 2023-08-24 16:13:00 Jami Banda [facility] POCT GLUCOSE (AUTOMATED) 2023-08-24 12:34:00 Jami Banda [facility] BASIC METABOLIC PANEL (NA, K, CL, CO2, GLUCOSE, BUN, CREATININE, CA) 2023-08-24 08:42:00 Jerry Fields [facility] CBC WITH DIFF 2023-08-24 08:42:00 Jerry Fields [facility] POCT GLUCOSE (AUTOMATED) 2023-08-24 05:46:00 Jami Banda [facility] BASIC METABOLIC PANEL (NA, K, CL, CO2, GLUCOSE, BUN, CREATININE, CA) 2023-08-24 01:37:00 Jerry Fields [facility] POCT GLUCOSE (AUTOMATED) 2023-08-24 01:27:00 Jami Banda [facility] POCT GLUCOSE (AUTOMATED) 2023-08-23 21:29:00 Jami Banda [facility] BASIC METABOLIC PANEL (NA, K, CL, CO2, GLUCOSE, BUN, CREATININE, CA) 2023-08-23 17:41:00 Jerry Fields [facility] POCT GLUCOSE (AUTOMATED) 2023-08-23 16:42:00 Jami Banda [facility] POCT GLUCOSE (AUTOMATED) 2023-08-23 12:36:00 Jami Banda [facility] POCT GLUCOSE (AUTOMATED) 2023-08-23 09:09:00 Jami Banda [facility] MAGNESIUM 2023-08-23 08:23:00 Jerry Fields [facility] BASIC METABOLIC PANEL (NA, K, CL, CO2, GLUCOSE, BUN, CREATININE, CA) 2023-08-23 08:23:00 Jerry Fields [facility] CBC WITH DIFF 2023-08-23 08:23:00 Jerry Fields [facility] POCT GLUCOSE (AUTOMATED) 2023-08-23 04:52:00 Jami Banda [facility] POCT GLUCOSE (AUTOMATED) 2023-08-23 00:42:00 Jami Banda [facility] BASIC METABOLIC PANEL (NA, K, CL, CO2, GLUCOSE, BUN, CREATININE, CA) 2023-08-23 00:38:00 Jerry Fields [facility] POCT GLUCOSE (AUTOMATED) 2023-08-22 21:18:00 Jami Banda [facility] URIC ACID 2023-08-22 19:21:00 Alyssa Cain [facility] PROTEIN CREAT RATIO URINE RANDOM 2023-08-22 19:21:00 Alyssa Cain [facility] CORTISOL AM 2023-08-22 19:20:00 Alyssa Cain [facility] BASIC METABOLIC PANEL (NA, K, CL, CO2, GLUCOSE, BUN, CREATININE, CA) 2023-08-22 13:21:00 Lyubov Banda [facility] LACTIC ACID WHOLE BLOOD 2023-08-22 09:16:00 Loreta Banda mmad [facility] MAGNESIUM 2023-08-22 08:30:00 Lyubov Banda [facility] TROPONIN I 2023-08-22 08:30:00 Lyubov Banda [facility] CBC WITH DIFF 2023-08-22 08:30:00 [facility]-B[facility] 2023-08-22 08:30:00 Lyubov Banda [facility] PHOSPHORUS 2023-08-22 04:01:00 Lyubov Banda [facility] BASIC METABOLIC PANEL (NA, K, CL, CO2, GLUCOSE, BUN, CREATININE, CA) 2023-08-22 04:01:00 Cosme Cardona [facility] URINALYSIS 2023-08-22 01:52:00 Cosme Cardona [facility] CT ABDOMEN PELVIS WO CONTRAST 2023-08-22 01:26:17 Cosme Cardona [facility] CREATINE KINASE 2023-08-22 01:24:00 Lyubov Banda [facility] LIPASE 2023-08-22 01:24:00 [facility] METABOLIC PANEL ([id number]) 2023-08-22 01:24:00 Singer [facility] CBC WITH DIFF 2023-08-22 01:24:00 Singer [facility] POCT GLUCOSE (AUTOMATED) 2023-08-16 21:51:00 Yue Fields [facility] POCT GLUCOSE (AUTOMATED) 2023-08-16 16:54:00 Yue Fields [facility] POCT GLUCOSE (AUTOMATED) 2023-08-16 12:45:00 Yue Fields [facility] POCT GLUCOSE (AUTOMATED) 2023-08-16 02:06:00 Yue Fields [facility] POCT GLUCOSE (AUTOMATED) 2023-08-15 21:29:00 Yue Fields [facility] POCT GLUCOSE (AUTOMATED) 2023-08-15 16:39:00 Yue Fields [facility] POCT GLUCOSE (AUTOMATED) 2023-08-15 13:08:00 Yue Fields [facility] TROPONIN I 2023-08-15 10:41:00 Juventino [facility] BASIC METABOLIC PANEL (NA, K, CL, CO2, GLUCOSE, BUN, CREATININE, CA) 2023-08-15 10:41:00 Shanice [facility] CBC WITH DIFF 2023-08-15 10:41:[address] [facility] PROSTATIC SPECIFIC ANTIGEN 2023-08-15 05:32:00 [facility] 2023-08-15 05:32:00 [facility] POCT GLUCOSE (AUTOMATED) 2023-08-15 04:03:00 Yue Fields [facility] URINALYSIS 2023 22:15:00 Umang Reynaga [facility] XR CHEST 1 VW 2023 21:46:00 Umang Reyngaa [facility] CT ABDOMEN PELVIS W CONTRAST 2023 21:34:55 Rosmery [facility] CT TRAUMA HEAD WO CONTRAST 2023 21:33:20 Rosmery [facility] HB ECG ROUTINE & RHYTHM STRIP 2023 21:10:12 Rosmery [facility] PHOSPHORUS 2023 20:47:00 Rosmery [facility] CREATINE KINASE 2023 20:47:00 [facility] LIPASE 2023 20:47:00 Rsomery [facility] MAGNESIUM 2023 20:47:00 Rosmery [facility] BETA HYDROXY-BUTYRATE 2023 20:47:00 Farida Reynaga [facility] TROPONIN I 2023 20:47:00 [facility] COMP. METABOLIC PANEL ([id number]) 2023 20:47:00 Rosmery [facility] CBC WITH DIFF 2023 20:47:00 Umang Reynaga [facility] GLYCOSYLATED HEMOGLOBIN (A1C) 2023 20:47:00 Jerry Fields [facility] N-TERMINAL PRO-BNP 2023 20:47:00 Michael Reynaga [facility] ACUTE CARE VENOUS BLOOD GAS 2023 20:46:00 Rosmery [facility] LACTIC ACID WHOLE BLOOD 2023 20:46:00 Kian Reynaga [facility] POCT GLUCOSE(AGE >30DAYS) 2023 20:26:00 Rosmery [facility] POCT GLUCOSE (AUTOMATED) 2023 20:23:00 Rosmery [facility] POCT GLUCOSE (AUTOMATED) 2023-04-23 18:09:00 Brien Banda [facility] POCT GLUCOSE (AUTOMATED) 2023-04-23 15:32:00 Brien Banda [facility] MAGNESIUM 2023-04-23 09:09:00 Loghin, Chet Univer [facility] BASIC METABOLIC PANEL (NA, K, CL, CO2, GLUCOSE, BUN, CREATININE, CA) 2023-04-23 09:09:00 Chet Echavarria [facility] POCT GLUCOSE (AUTOMATED) 2023-04-23 02:56:00 Brien Banda [facility] POCT GLUCOSE (AUTOMATED) 2023-04-23 00:32:[address] [facility] POCT GLUCOSE (AUTOMATED) 2023-04-22 22:43:[address] [facility] POCT GLUCOSE (AUTOMATED) 2023-04-22 20:36:[address] [facility] POCT GLUCOSE (AUTOMATED) 2023-04-22 17:44:[address] [facility] POCT GLUCOSE (AUTOMATED) 2023-04-22 13:41:[address] [facility] MAGNESIUM 2023-04-22 10:37:00 Daja Aaliyah [facility] BASIC METABOLIC PANEL (NA, K, CL, CO2, GLUCOSE, BUN, CREATININE, CA) 2023-04-22 10:37:00 Daja Aaliyah [facility] CBC WITH DIFF 2023-04-22 10:37:00 Daja Aaliyah [facility] POCT GLUCOSE (AUTOMATED) 2023-04-22 03:32:[address] [facility] POCT GLUCOSE (AUTOMATED) 2023-04-22 01:34:[address] [facility] COMPLETE ECHOCARDIOGRAM DOBUTAMINE STRESS TEST W CONTRAST 2023-04-21 21:15:00 Jeanine Montana [facility] POCT GLUCOSE (AUTOMATED) 2023-04-21 17:36:[address] [facility] ACTIVATED PARTIAL THRMPLAS JERMAINE 2023-04-21 16:47:00 Sergio Aponte [facility] TRANSTHORACIC ECHO (TTE) COMPLETE W/ CONTRAST 2023-04-21 15:26:00 Kylie Fuchs [facility] TROPONIN I 2023-04-21 12:39:00 Víctor Fuchs Noel [facility] POCT GLUCOSE (AUTOMATED) 2023-04-21 09:39:00 Brien Banda [facility] MAGNESIUM 2023-04-21 09:10:00 Víctor Fuchs Noel [facility] BASIC METABOLIC PANEL (NA, K, CL, CO2, GLUCOSE, BUN, CREATININE, CA) 2023-04-21 09:10:00 Kylie Fuchs Noel [facility] LIPID PANEL ([id number])(TOTAL CHOLESTEROL, TRIGLYCERIDES, HDL) 2023-04-21 09:10:00 Kylie Fuchs Noel [facility] CBC WITH DIFF 2023-04-21 09:10:00 Víctor Fuchs [facility] ACTIVATED PARTIAL THRMPLAS JERMAINE 2023-04-21 09:10:00 Sergio Aponte [facility] XR CHEST 1 VW 2023-04-21 06:53:47 Víctor Fuchs vestaburgyue [facility] TROPONIN I 2023-04-21 06:32:00 Víctor Fuchs vestaburgyue Noel [facility] IRON PANEL 2023-04-21 06:32:00 Víctor Fuchs vestaburgyue [facility] N-TERMINAL PRO-BNP 2023-04-21 06:32:00 Kylie Fuchs Noel [facility] CRITICAL CARE 2023-04-21 02:54:15 Sergio Aponte [facility] PROTHROMBIN TIME / INR 2023-04-21 02:44:00 Enrique Aponte [facility] ACTIVATED PARTIAL THRMPLAS JERMAINE 2023-04-21 02:44:00 Sergio Aponte [facility] URINALYSIS 2023-04-21 02:33:00 Sergio Aponte [facility] PROTEIN CREAT RATIO URINE RANDOM 2023-04-21 02:33:00 Tavia Fuchsmad Noel [facility] URINE DRUG (IMMUNOASSAY) - COMPREHENSIVE DRUG SCREEN W/O REFLEX 2023-04-21 02:33:00 Sergio Aponte [facility] PHOSPHORUS 2023-04-21 01:55:00 Víctor Fuchs Noel [facility] FERRITIN SERUM 2023-04-21 01:55:00 Víctor Fuchs Noel [facility] TROPONIN I 2023-04-21 01:55:00 [facility] THYROID STIMULATING HORMONE 2023-04-21 01:55:00 Kylie Fuchs Noel [facility] COMP. METABOLIC PANEL ([id number]) 2023-04-21 01:55:00 Sergio Aponte [facility] ETHANOL 2023-04-21 01:55:00 [facility] CBC WITH DIFF 2023-04-21 01:55:00 Sergio Aponte [facility] GLYCOSYLATED HEMOGLOBIN (A1C) 2023-04-21 01:55:00 Kylie Fuchs [facility] POCT GLUCOSE (AUTOMATED) 2023-04-21 01:54:00 Yue Aponte [facility] EKG-12 LEAD 2023-04-21 01:51:41 [facility] Start Date/Time End Date/Time Encounter Type Admission Type Attending Clinicians Care Facility Care Department Encounter ID Source 2023-08-21 19:47:00 2023-08-24 16:32:00 Hospital Encounter Cosme Cardona Mohammad A. [facility] 1..840.114 350.1.13.10 4.2.7.2.686 [id number] [facility] 2023-08-20 00:00:00 2023-08-20 00:00:00 Patient Outreach Rosalie Irizarry [id number] 350.1.13.10 4.2.7.2.686 [id number] [facility] 2023-08-17 00:00:00 2023-08-17 00:00:00 Telephone Ricky Rivera [facility] 1.2840.114 350.1.13.10 4.2.7.2.686 [id number] [facility] 2023 14:42:00 2023-08-16 18:40:00 Hospital Encounter Umang Reynaga David Oville, Jelani [facility] [id number] 350.1.13.10 4.2.7.2.686 [id number] [facility] 2023-04-27 00:00:00 2023-04-27 00:00:00 Transition of Care Jeannette Dawn JANIS BAEZ 1.2840.114 350.1.13.10 4.2.7.2.686 [id number] [facility] 2023-04-20 19:48:00 2023-04-23 19:54:00 Inpatient X PARVEZ [email or web address] CATRINA [id number] [facility] 2023-04-20 19:48:00 2023-04-23 19:54:00 Hospital Encounter Sergio Aponte Rizwan Dacso, Matthew M [facility] 1.2840.114 350.1.13.10 4.2.7.2.686 [id number] [facility] Results Test Description Test Time Test Comments Results Result Co mments Source [facility]2023-08-24 12:35:27* Test Item Value Reference Range Interpretation Comme nts POCT GLU (test code = 4794158743) 204 mg/dL 70-110 H Lab Interpretation (test cod e = 38087-5) Abnormal [facility] (NA, K, CL, CO2, GLUCOSE, BUN, CREATININE, CA)2023-08-24 09:45:39* Test Item Value Reference Range Interpretation Comme nts NA (test code = 5849852167) 133 mmol/L 135-145 L K (test code = 8458992198) 3.7 mmol/L 3.5-5.0 CL (test code = 7413955718) 98 mmol/L 98-108 CO2 TOTAL (test code = 9670768716) 27 mmol/L 23-31 AGAP (test code = 5465428650) 8 2-16 BUN (test code = 3252307485) 13 mg/dL 7-23 GLUCOSE (test code = 6897540479) 188 mg/dL 70-110 H CREATININE (test code = 2160-0) 0.63 mg/dL 0.60-1.25 CALCIUM (test code = 5681399635) 9.4 mg/dL 8.6-10.6 eGFR (test code = 51704-5) 111.6 mL/min/1.73m2 CKD-EPI eGFR (2020). Assuming creatinine has been stable day-to-day for at least three months, the eGFR indicates Category G1 (>= 90 mL/min/1.73 m2) Lab Interpretation (test code = 10991-2) Abnormal [facility] with [id number] 09:21:26* Test Item Value Reference Range Interpretation [...] g/dL 31.2-35.0 H RDW-SD (test code = 32165-9) 36.9 fL 38.5-51.6 L RDW-CV (test code = 788-0) 11.6 % 12.1-15.4 L PLT (test code = 777-3) 407 150-328 H MPV (test code = 99107-7) 9.5 fL 9.8-13.0 L NRBC/100 WBC (test code = 0964374237) 0.0 0.0-10.0 NRBC x10^3 (test code = 6855974855) See_Comment [Automated messa ge] The system which generated this result transmitted reference range: 10*3/?L. The reference range was not used to interpret this result as normal/abnormal. GRAN MAT (NEUT) % (test code = 770-8) 63.1 % IMM GRAN % (test code = 3127657350) 0.30 % LYMPH % (test code = 736-9) 21.1 % MONO % (test code = 5905-5) 8.3 % EOS % (test code = 713-8) 6.5 % BASO % (test code = 706-2) 0.7 % GRAN MAT x10^3(ANC) (test code = 1036945794) 3.71 10*3/uL 1.99-6.95 IMM GRAN x10^3 (test code = 1298489871) 0.00-0.06 LYMPH x10^3 (test code = 731-0) 1.24 10*3/uL 1.09-3.23 MONO x10^3 (test code = 742-7) 0.49 10*3/uL 0.36-1.02 EOS x10^3 (test code = 711-2) 0.38 10*3/uL 0.06-0.53 BASO x10^3 (test code = 704-7) 0.04 10*3/uL 0.01-0.09 Lab Interpretation (test code = 59333-7) Abnormal [facility] (AUTOMATED)2023-08-24 05:47:46* Test Item Value Reference Range Interpretation Comme nts POCT GLU (test code = 0930799087) 126 mg/dL 70-110 H Lab Interpretation (test cod e = 20665-8) Abnormal [facility] Metabolic Panel (NA, K, CL, CO2, GLUCOSE, BUN, CREATININE, CA)2023-08-24 02:27:27* Test Item Value Reference Range Interpretation Comme nts NA (test code = 2091688888) 129 mmol/L 135-145 L K (test code = 3552803967) 3.9 mmol/L 3.5-5.0 CL (test code = 4099498914) 96 mmol/L 98-108 L CO2 TOTAL (test code = 8528580428) 29 mmol/L 23-31 AGAP (test code = 5284610065) 4 2-16 BUN (test code = 1277955564) 14 mg/dL 7-23 GLUCOSE (test code = 2614689559) 185 mg/dL 70-110 H CREATININE (test code = 2160-0) 0.56 mg/dL 0.60-1.25 L CALCIUM (test code = 6233884010) 9.2 mg/dL 8.6-10.6 eGFR (test code = 15144-1) 115.7 mL/min/1.73m2 CKD-EPI eGFR (2020). Assuming creatinine has been stable day-to-day for at least three months, the eGFR indicates Category G1 (>= 90 mL/min/1.73 m2) Lab Interpretation (test code = 62411-9) Abnormal [facility] GLUCOSE (AUTOMATED)2023-08-24 01:28:28* Test Item Value Reference Range Interpretation Comme nts POCT GLU (test code = 0159042539) 210 mg/dL 70-110 H Lab Interpretation (test cod e = 96024-1) Abnormal [facility] GLUCOSE (AUTOMATED)2023-08-23 21:30:04* Test Item Value Reference Range Interpretation Comme nts POCT GLU (test code = 7253844342) 149 mg/dL 70-110 H Lab Interpretation (test cod e = 86490-4) Abnormal [facility] GLUCOSE (AUTOMATED)2023-08-23 16:45:20* Test Item Value Reference Range Interpretation Comme nts POCT GLU (test code = 8115946871) 147 mg/dL 70-110 H Lab Interpretation (test cod e = 56892-3) Abnormal [facility] GLUCOSE (AUTOMATED)2023-08-23 12:36:56* Test Item Value Reference Range Interpretation Comme nts POCT GLU (test code = 3451217757) 131 mg/dL 70-110 H Lab Interpretation (test cod e = 99582-8) Abnormal [facility] GLUCOSE (AUTOMATED)2023-08-23 09:17:23* Test Item Value Reference Range Interpretation Comme nts POCT GLU (test code = 9678029408) 154 mg/dL 70-110 H Lab Interpretation (test cod e = 66269-2) Abnormal [facility] GLUCOSE (AUTOMATED)2023-08-23 05:03:01* Test Item Value Reference Range Interpretation Comme nts POCT GLU (test code = 7709060688) 183 mg/dL 70-110 H Lab Interpretation (test cod e = 75978-3) Abnormal [facility] Metabolic Panel (NA, K, CL, CO2, GLUCOSE, BUN, CREATININE, CA)2023-08-23 01:49:58* Test Item Value Reference Range Interpretation Comme nts NA (test code = 8655115320) 132 mmol/L 135-145 L K (test code = 3541362160) 4.1 mmol/L 3.5-5.0 CL (test code = 9591494025) 101 mmol/L 98-108 CO2 TOTAL (test code = 0057579185) 28 mmol/L 23-31 AGAP (test code = 5347023014) 3 2-16 BUN (test code = 1567244129) 17 mg/dL 7-23 GLUCOSE (test code = 2172895915) 149 mg/dL 70-110 H CREATININE (test code = 2160-0) 0.97 mg/dL 0.60-1.25 CALCIUM (test code = 9623272725) 8.4 mg/dL 8.6-10.6 L eGFR (test code = 43863-9) 91.6 mL/min/1.73m2 CKD-EPI eGFR (2020). Assuming creatinine has been stable day-to-day for at least three months, the eGFR indicates Category G1 (>= 90 mL/min/1.73 m2) Lab Interpretation (test code = 34688-4) Abnormal [facility] GLUCOSE (AUTOMATED)2023-08-23 00:43:06* Test Item Value Reference Range Interpretation Comme nts POCT GLU (test code = 1110106948) 126 mg/dL 70-110 H Lab Interpretation (test cod e = 69136-8) Abnormal [facility] HospitalCortisol [id number] 22:59:03* Test Item Value Reference Range Interpretation Comme nts IBRAHIMA AM (test code = 2184871828) 24.7 ug/dL 4.5-23.0 H GINA (test code = GINA) Biotin has been reported to cause a positive bias, interpret results relative to patient's use of biotin. Lab Interpretation (test code = 67464-7) Abnormal [facility] GLUCOSE (AUTOMATED)2023-08-22 21:29:10* Test Item Value Reference Range Interpretation Comme [facility] POCT GLU (test code = 4060081413) 341 mg/dL 70-110 H Lab Interpretation (test cod e = 95241-3) Abnormal [facility] HospitalUric [id number] 19:53:59* Test Item Value Reference Range Interpretation Comme [facility] URIC ACID (test code = 2717705436) 6.4 mg/dL 3.6-8.0 Lab Interpretation (test cod e = 71461-3) Normal [facility] Metabolic Panel (NA, K, CL, CO2, GLUCOSE, BUN, CREATININE, CA)2023-08-22 14:43:15* Test Item Value Reference Range Interpretation Comme nts NA (test code = 6079045710) 138 mmol/L 135-145 K (test code = 6623539405) 4.6 mmol/L 3.5-5.0 CL (test code = 3141998927) 102 mmol/L 98-108 CO2 TOTAL (test code = 9850049495) 28 mmol/L 23-31 AGAP (test code = 0146774237) 8 2-16 BUN (test code = 4255172982) 34 mg/dL 7-23 H GLUCOSE (test code = 2288077719) 224 mg/dL 70-110 H CREATININE (test code = 2160-0) 1.89 mg/dL 0.60-1.25 H CALCIUM (test code = 8349303709) 9.4 mg/dL 8.6-10.6 eGFR (test code = 63044-5) 41.1 mL/min/1.73m2 CKD-EPI eGFR (2020). Assuming creatinine has been stable day-to-day for at least three months, the eGFR indicates Category G3b (30 - 44 mL/min/1.73 m2) Lab Interpretation (test code = 01223-7) Abnormal [facility] HospitalCreatine [id number] 14:42:45* Test Item Value Reference Range Interpretation Comme nts CK (test code = 5834667645) 224 U/L 33-194 H Lab Interpretation (test cod e = 01937-3) Abnormal [facility] HospitalPhosphorus [id number] 12:10:01* Test Item Value Reference Range Interpretation Comme nts PHOSPHORUS (test code = 6127145248) 5.8 mg/dL 2.5-5.0 H Lab Interpretation (test cod e = 36766-3) Abnormal [facility] HospitalBasi Metabolic Panel (NA, K, CL, CO2, GLUCOSE, BUN, CREATININE, CA)2023-08-22 04:41:19* Test Item Value Reference Range Interpretation Comme nts NA (test code = 5142512259) 124 mmol/L 135-145 L K (test code = 6133040428) 4.7 mmol/L 3.5-5.0 CL (test code = 7856419539) 93 mmol/L 98-108 L CO2 TOTAL (test code = 1331620743) 18 mmol/L 23-31 L AGAP (test code = 9814737685) 13 2-16 BUN (test code = 1235649289) 68 mg/dL 7-23 H GLUCOSE (test code = 1243100383) 116 mg/dL 70-110 H CREATININE (test code = 2160-0) 6.60 mg/dL 0.60-1.25 H CALCIUM (test code = 3303507964) 9.0 mg/dL 8.6-10.6 eGFR (test code = 47403-7) 9.2 mL/min/1.73m2 CKD-EPI eGFR (2020). Assuming creatinine has been stable day-to-day for at least three months, the eGFR indicates Category G5 (<= 14mL/min/1.73 m2) Lab Interpretation (test code = 72688-2) Abnormal [facility] ABDOMEN PELVIS WO [id number] 02:22:05Exam: CT Abdomen and Pelvis without Contrast, [...] osseous finding. Subacute/chronic left-sided rib fractures.Soft tissues: Unremarkable.[facility]. Metabolic Panel (41502) 2023-08-22 02:21:33* Test Item Value Reference Range Interpretation Comme nts NA (test code = 2941385068) 120 mmol/L 135-145 L K (test code = 5729201780) 4.8 mmol/L 3.5-5.0 CL (test code = 0039914492) 85 mmol/L 98-108 L CO2 TOTAL (test code = 3921057893) 21 mmol/L 23-31 L AGAP (test code = 9230812660) 14 2-16 BUN (test code = 0227708473) 70 mg/dL 7-23 H GLUCOSE (test code = 3029505712) 97 mg/dL 70-110 CREATININE (test code = 2160-0) 8.39 mg/dL 0.60-1.25 H TOTAL BILI (test code = 3215352770) 0.7 mg/dL 0.1-1.1 CALCIUM (test code = 5953205536) 8.8 mg/dL 8.6-10.6 T PROTEIN (test code = 7059127875) 7.2 g/dL 6.3-8.2 ALBUMIN (test code = 9610008700) 4.1 g/dL 3.5-5.0 ALK PHOS (test code = 9304502239) 95 U/L 34-122 ALTv (test code = 1742-6) 12 U/L 5-50 AST(SGOT) (test code = 7219423620) 24 U/L 13-40 eGFR (test code = 39106-3) 6.9 mL/min/1.73m2 CKD-EPI eGFR (2020). Assuming creatinine has been stable day-to-day for at least three months, the eGFR indicates Category G5 (<= 14mL/min/1.73 m2) Lab Interpretation (test code = 62401-6) [facility]* Test Item Value Reference Range Interpretation Comme nts LIPASE (test code = 7391142103) 758 U/L 0-220 H Lab Interpretation (test cod e = 38580-8) [facility]48[facility]-56 01:58:31* Test Item Value Reference Range Interpretation [...] g/dL 31.2-35.0 H RDW-SD (test code = 78361-0) 36.0 fL 38.5-51.6 L RDW-CV (test code = 788-0) 11.5 % 12.1-15.4 L PLT (test code = 777-3) 312 150-328 MPV (test code = 93033-9) 9.4 fL 9.8-13.0 L NRBC/100 WBC (test code = 7778955461) 0.0 0.0-10.0 NRBC x10^3 (test code = 7808203457) See_Comment [Automated message] The system which generated this result transmitted reference range: 10*3/?L. The reference range was not used to interpret this result as normal/abnormal. GRAN MAT (NEUT) % (test code = 770-8) 82.7 % IMM GRAN % (test code = 7380648989) 0.50 % LYMPH % (test code = 736-9) 6.7 % MONO % (test code = 5905-5) 9.8 % EOS % (test code = 713-8) 0.2 % BASO % (test code = 706-2) 0.1 % GRAN MAT x10^3(ANC) (test code = 9106685581) 12.19 10*3/uL 1.99-6.95 H IMM GRAN x10^3 (test code = 6706456927) 0.08 10*3/uL 0.00-0.06 H LYMPH x10^3 (test code = 731-0) 0.99 10*3/uL 1.09-3.23 L MONO x10^3 (test code = 742-7) 1.44 10*3/uL 0.36-1.02 H EOS x10^3 (test code = 711-2) 0.03 10*3/uL 0.06-0.53 L BASO x10^3 (test code = 704-7) 0.01-0.09 Lab Interpretation (test code = 50291-8) Abnormal [facility] GLUCOSE (AUTOMATED)2023-08-16 22:02:57* Test Item Value Reference Range Interpretation Comme nts POCT GLU (test code = 0543672316) 112 mg/dL 70-110 H Lab Interpretation (test cod e = 40208-1) Abnormal [facility] GLUCOSE (AUTOMATED)2023-08-16 16:59:58* Test Item Value Reference Range Interpretation Comme nts POCT GLU (test code = 1971370069) 127 mg/dL 70-110 H Lab Interpretation (test cod e = 02222-3) Abnormal [facility] GLUCOSE (AUTOMATED)2023-08-16 12:48:23* Test Item Value Reference Range Interpretation Comme nts POCT GLU (test code = 5621698081) 175 mg/dL 70-110 H Lab Interpretation (test cod e = 80055-0) Abnormal [facility] GLUCOSE (AUTOMATED)2023-08-16 02:07:02* Test Item Value Reference Range Interpretation Comme nts POCT GLU (test code = 1926558022) 195 mg/dL 70-110 H Notified Provide r Lab Interpretation (test code = 55243-8) Abnormal [facility] GLUCOSE (AUTOMATED)2023-08-15 21:36:15* Test Item Value Reference Range Interpretation Comme nts POCT GLU (test code = 7138205623) 284 mg/dL 70-110 H Lab Interpretation (test cod e = 35336-9) Abnormal [facility] GLUCOSE (AUTOMATED)2023-08-15 16:56:02* Test Item Value Reference Range Interpretation Comme nts POCT GLU (test code = 5067832022) 74 mg/dL 70-110 Lab Interpretation (test cod e = 04883-9) Normal [facility] GLUCOSE (AUTOMATED)2023-08-15 13:12:34* Test Item Value Reference Range Interpretation Comme nts POCT GLU (test code = 4291271511) 258 mg/dL 70-110 H Lab Interpretation (test cod e = 85250-0) Abnormal [facility] GLUCOSE (AUTOMATED)2023-08-15 04:04:43* Test Item Value Reference Range Interpretation Comme nts POCT GLU (test code = 5321474337) 120 mg/dL 70-110 H Lab Interpretation (test cod e = 24028-1) Abnormal [facility] HospitalGlycosylated Hemoglobin (A1C)2023-08-15 01:17:32* Test Item Value Reference Range Interpretation Comme nts HGB A1C (test code = 4548-4) 8.9 % 4.0-5.7 H GINA (test code = GINA) Reference RangesNormal: <5.7%Prediabetes: 5.7 - 6.4%Diabetes: > 6.5% Lab Interpretation (test code = 69688-9) Abnormal [facility] HospitalBeta Kshdzjy-[id number] 01:00:45* Test Item Value Reference Range Interpretation Comme nts BOH (test code = 5231576222) 0.5 mmol/L GINA (test code = GINA) Normal Ranges: ? ? Nonfasting ? Less than 0.1 mmol/L ? ? Overnight Fast ? ? ? Less than 0.4 mmol/L ? ? Fasting (1-2 weeks) ?6-8 mmol/L Test developed and characteristics determined by [facility] [[email or web address]] Laboratory Services. [facility] HospitalCreatine [id number] 23:07:16* Test Item Value Reference Range Interpretation Comme nts CK (test code = 4337058095) 148 U/L 33-194 Lab Interpretation (test cod e = 08407-9) Normal [facility] HospitalTROPONIN [id number] 22:18:16* Test Item Value Reference Range Interpretation Comme nts TROPONIN I (test code = 5073535544) 0.081 ng/mL <=0.034 H GIAN (test code = GINA) Reference (Normal) Range [...] of biotin. Lab Interpretation (test code = 95070-2) Abnormal [facility] HospitalN-TERMINAL [id number] 22:15:55* Test Item Value Reference Range Interpretation Comme [facility] NT-proBNP (test code = 27883-7) 999 pg/mL <=125 H GINA (test code = GINA) Positive: Heart Failure Likely Lab Interpretation (test code = 98881-2) Abnormal [facility] HospitalMagnesium2024-04-20 22:07:17* Test Item Value Reference Range Interpretation Comme nts MAGNESIUM (test code = 1954861427) 1.8 mg/dL 1.7-2.4 Lab Interpretation (test cod e = 79338-6) Normal [facility] HospitalCOMP. METABOLIC PANEL (75371)2023 22:06:57* Test Item Value Reference Range Interpretation Comme nts NA (test code = 3677807186) 130 mmol/L 135-145 L K (test code = 0952477986) 3.4 mmol/L 3.5-5.0 L CL (test code = 0092308378) 93 mmol/L 98-108 L CO2 TOTAL (test code = 3598669972) 26 mmol/L 23-31 AGAP (test code = 9562042913) 11 2-16 BUN (test code = 6004953264) 39 mg/dL 7-23 H GLUCOSE (test code = 5388884041) 142 mg/dL 70-110 H CREATININE (test code = 2160-0) 2.40 mg/dL 0.60-1.25 H TOTAL BILI (test code = 8011938983) 1.2 mg/dL 0.1-1.1 H CALCIUM (test code = 8227173813) 9.1 mg/dL 8.6-10.6 T PROTEIN (test code = 1807414431) 7.7 g/dL 6.3-8.2 ALBUMIN (test code = 8408472701) 4.2 g/dL 3.5-5.0 ALK PHOS (test code = 1936699819) 102 U/L 34-122 ALTv (test code = 1742-6) 16 U/L 5-50 AST(SGOT) (test code = 9478935002) 26 U/L 13-40 eGFR (test code = 44428-3) 30.9 mL/min/1.73m2 CKD-EPI eGFR (2020). Assuming creatinine has been stable day-to-day for at least three months, the eGFR indicates Category G3b (30 - 44 mL/min/1.73 m2) Lab Interpretation (test code = 25659-9) Abnormal [facility] HospitalPhosphorus2024-04-20 22:06:37* Test Item Value Reference Range Interpretation Comme nts PHOSPHORUS (test code = 0433426964) 4.9 mg/dL 2.5-5.0 Lab Interpretation (test cod e = 49833-7) Normal [facility] HospitalLIPASE2024-04-20 22:06:17* Test Item Value Reference Range Interpretation Comme nts LIPASE (test code = 4226019099) 204 U/L 0-220 Lab Interpretation (test cod e = 28885-8) Normal [facility] WITH [id number] 21:54:56* Test Item Value Reference Range Interpretation [...] g/dL 31.2-35.0 H RDW-SD (test code = 09100-5) 38.1 fL 38.5-51.6 L RDW-CV (test code = 788-0) 11.8 % 12.1-15.4 L PLT (test code = 777-3) 235 150-328 MPV (test code = 70503-6) 11.1 fL 9.8-13.0 NRBC/100 WBC (test code = 4184183014) 0.0 0.0-10.0 NRBC x10^3 (test code = 5295742520) See_Comment [Automated message] The system which generated this result transmitted reference range: 10*3/?L. The reference range was not used to interpret this result as normal/abnormal. GRAN MAT (NEUT) % (test code = 770-8) 80.3 % IMM GRAN % (test code = 7139135196) 0.60 % LYMPH % (test code = 736-9) 8.7 % MONO % (test code = 5905-5) 10.0 % EOS % (test code = 713-8) 0.2 % BASO % (test code = 706-2) 0.2 % GRAN MAT x10^3(ANC) (test code = 1806277401) 10.18 10*3/uL 1.99-6.95 H IMM GRAN x10^3 (test code = 4035862646) 0.07 10*3/uL 0.00-0.06 H LYMPH x10^3 (test code = 731-0) 1.11 10*3/uL 1.09-3.23 MONO x10^3 (test code = 742-7) 1.27 10*3/uL 0.36-1.02 H EOS x10^3 (test code = 711-2) 0.03 10*3/uL 0.06-0.53 L BASO x10^3 (test code = 704-7) 0.03 10*3/uL 0.01-0.09 Lab Interpretation (test code = 30570-8) Abnormal [facility] HospitalXR CHEST 1 [id number] 21:49:58EXAM: XR CHEST 1 2023 4:38 PM HISTORY: 58 years-old Male with r/o infilrate . TECHNIQUE: Portable AP view of the chest. COMPARISON: 04/21/2023 FINDINGS: Lines and tubes: None. Cardiomediastinal: The cardiomediastinal silhouette is unremarkable. Lungs and pleura: The lungs are clear. No focal consolidation,pneumothorax, or pleural effusion is seen. Included osseous structures show no acuteabnormality.[facility] HospitalCT ABDOMEN PELVIS W [id number] 21:45:03EXAM: CT ABDOMEN AND PELVIS WITH CONTRAST [...] change involving the spine, sacroiliac jointsand hips ispresent.[facility] HospitalCT TRAUMA HEAD WO [id number] 21:38:37FULL RESULT: Examination: CT TRAUMA HEAD WO CONTRAST on 2023 4:16 PM Clinical Indication: Headache, hypertensive Comparison: None Technique: Noncontrast imaging was obtained from base to vertex.Findings: The sulci and ventricles were unremarkable. There may be subtlewhite matter microvascularischemic changes, notably in the anteriorperiventricular region, but there is no evidence for hemorrhage or otherclearly acute intracranial process.[facility] HospitalLascic Acid Whole [id number] 21:30:25* Test Item Value Reference Range Interpretation Comme [facility] LACTIC ACID (test code = 4170625127) 1.58 mmol/L 0.50-2.20 Lab Interpretation (test cod e = 51970-6) Normal [facility] Care Venous Blood [id number] 21:30:25 * Test Item Value Reference Range Interpretation Comme nts PH (test code = 6102230708) 7.34 7.32-7.42 PCO2 NOY (test code = 8463553874) 45 41-51 PO2 NOY (test code = 8133806245) 24 25-40 L HCO3 NOY (test code = 3693656768) 24 24-28 AC VBE(BEAKER) (test code = 8405063061) -1.9 mEq/L Lab Interpretation (test cod e = 13667-6) Abnormal [facility] GLUCOSE (AUTOMATED)2023 20:26:17* Test Item Value Reference Range Interpretation Comme nts POCT GLU (test code = 9701209790) 165 mg/dL 70-110 H Lab Interpretation (test cod e = 97175-8) Abnormal [facility] GLUCOSE(AGE >30DAYS)2023 20:26:00* Test Item Value Reference Range Interpretation Comme nts POCT Glu (age>30days) (test code = 3342) 165 mg/dL 70-110 A Lab Interpretation (test cod e = 64291-1) [facility] 18:15:28* Test Item Value Reference Range Interpretation Comme nts POCT GLU (test code = 5563517007) 218 mg/dL 70-110 H Lab Interpretation (test cod e = 21602-1) [facility]2023-[facility]-23 15:35:23* Test Item Value Reference Range Interpretation Comme nts POCT GLU (test code = 6414693114) 186 mg/dL 70-110 H Lab Interpretation (test cod e = 46660-9) [facility]23-[facility]-23 02:57:57* Test Item Value Reference Range Interpretation Comme nts POCT GLU (test code = 5700745346) 82 mg/dL 70-110 Lab Interpretation (test cod e = 85533-3) Normal [facility] GLUCOSE (AUTOMATED)2023-04-23 00:33:51* Test Item Value Reference Range Interpretation Comme nts POCT GLU (test code = 9389547022) 181 mg/dL 70-110 H Lab Interpretation (test cod e = 59111-6) [facility]2023-04-22 22:54:22* Test Item Value Reference Range Interpretation Comme nts POCT GLU (test code = 8983976160) 127 mg/dL 70-110 H Lab Interpretation (test cod e = 25423-1) [facility]2023-04-22 20:37:54* Test Item Value Reference Range Interpretation Comme nts POCT GLU (test code = 7890641812) 230 mg/dL 70-110 H Lab Interpretation (test cod e = 06137-1) [facility]2023-04-22 17:46:23* Test Item Value Reference Range Interpretation Comme nts POCT GLU (test code = 9495079963) 144 mg/dL 70-110 H Lab Interpretation (test cod e = 14467-7) [facility]2023-04-22 13:42:26* Test Item Value Reference Range Interpretation Comme nts POCT GLU (test code = 3113785113) 229 mg/dL 70-110 H Lab Interpretation (test cod e = 86650-6) Abnormal [facility] GLUCOSE (AUTOMATED)2023-04-22 03:33:49* Test Item Value Reference Range Interpretation Lianet garcía POCT GLU (test code = 0045168784) 222 mg/dL 70-110 H Lab Interpretation (test cod e = 69306-3) Abnormal [facility] GLUCOSE (AUTOMATED)2023-04-22 01:36:03* Test Item Value Reference Range Interpretation Lianet garcía POCT GLU (test code = 3610075656) 282 mg/dL 70-110 H Lab Interpretation (test cod e = 24040-2) Abnormal [facility] HospitalEchocardiogram dobutamine stress test 2023-04-21 22:26:30* Test Item Value Reference Range Interpretation Lianet garcía Height (test code = 7353442754) 63 in Weight (test code = 8380014166) 130 lbs Systolic BP (test code = 8160900067) 122 mmHg Diastolic BP (test code = 4431628623) 81 mmHg Heart Rate (test code = 5556819838) 105 bpm BSA (test code = 3202282778) 1.[address] Depresion (mm) (test code = 1920465251) [address] Depression (mm) (test code = 5995268557) 0 mm Radiology Study observation (narrative) (test code = 13948-9) GINA (test code = GINA) Table formatting [...] left ventricular wall motion is globally hyperkinetic. [facility] HospitalTransthoracic echo (TTE)2023-04-21 18:05:03* Test Item Value Reference Range Interpretation Comme nts Height (test code = 2989456263) 63 in Weight (test code = 6797152261) 130 lbs Systolic BP (test code = 8990668312) 114 mmHg Diastolic BP (test code = 6799125123) 75 mmHg Heart Rate (test code = 5725408249) 98 bpm BSA (test code = 5259855731) 1.61 m2 LVIDD (test code = 1446423629) 4.00 cm Left Ventricular End Diastolic Volume by Teichholz Method (test code = 8302884) 70.0 mL IVS (test code = 3527845183) 1.07 cm Interventricular Septum Diastolic Thickness by 2D (test code = 8369334) 1.07 cm LVPWD (test code = 5456434415) 1.05 cm PW (test code = 2440328724) 1.05 cm 0.6-1.1 EF(Teich) (test code = 9043620417) 62.60 % LVIDS (test code = 1055864193) 2.70 cm Left Ventricular End Systolic Volume by Teichholz Method (test code = 7411924) 26.2 mL FS (test code = 3200293204) 33 % EF - 2D (test code = 18015236) 62.60 % Ao root diam (test code = 8369492612) 3.70 cm Aortic root (test code = 5948131105) 3.7 cm Ao root annulus (test code = 1105565208) 3.7 cm LA size (test code = 3835512802) 3.2 cm LVOT diameter (test code = 4220284635) 2.08 cm LVOT area (test code = 6523396385) 3.40 cm2 MV Peak E Nima (test code = 4088031037) 48.3 cm/s E wave decelartion time (test code = 9467363303) 0.15 s MV Peak A Nima (test code = 0883762785) 74.4 cm/s E/A ratio (test code = 3928972504) 0.65 ratio MV Prop V (test code = 5812177805) 21.20 cm/s LAV(MOD-sp4) (test code = 6011437226) 35.30 mL Tapse (test code = 9909963082) 1.73 cm LVOT stroke volume (test code = 5881138177) 45.20 cm3 LVOT peak nima (test code = 8611109185) 79.0 cm/s LVOT mn grad (test code = 4806094832) 1.3 mmHg AV LVOT peak gradient (test code = 4794733766) 2.50 mmHg LVOT peak VTI (test code = 9210959222) 13.2 cm LV V1 mean (test code = 9275649827) 52.90 cm/s Ao peak nima (test code = 2262339721) 83.8 cm/s AV area peak nima (test code = 1684385905) 3.2 cm2 Ao max PG (test code = 1333074506) 2.80 mm[Hg] AV peak gradient (test code = 9673014003) 2.8 mmHg LA Volume Index (BP) (test code = 8308067598) 25.9 mL/m2 LA volume (BP) (test code = 3026484745) 41.8 mL LAV(MOD-sp2) (test code = 8000003954) 40.90 mL A4C EF (test code = 0359363651) 54.40 % EF(sp4-el) (test code = 6919190337) 55.00 % SV(MOD-sp4) (test code = 9868617149) 53.10 mL SV(sp4-el) (test code = 0612129487) 55.60 mL Radiology Study observation (narrative) (test code = 90418-1) GINA (test code = GINA) ?Left?Ventricle: Left [...] enhancing agent used. Patient exhibited sinus rhythm. [facility] GLUCOSE (AUTOMATED)2023-04-21 17:48:26* Test Item Value Reference Range Interpretation Comme nts POCT GLU (test code = 3302002859) 198 mg/dL 70-110 H Lab Interpretation (test cod e = 49495-9) Abnormal [facility] HospitalXR CHEST 1 [id number] 15:12:07EXAM: XR CHEST 1 VW HISTORY: NSTEMI COMPARISON: None. FINDINGS: Small bandlike densities in the left midlung have more the appearance ofatelectasis than pneumonia. The lungs are well expanded and clearotherwise. The heart and great vessels are normal except for calcium in thearch of the aorta.[facility] GLUCOSE (AUTOMATED)2023-04-21 09:39:57* Test Item Value Reference Range Interpretation Comme nts POCT GLU (test code = 6720639459) 243 mg/dL 70-110 H Lab Interpretation (test cod e = 97378-2) Abnormal [facility] HospitalFerritin [id number] 07:28:27* Test Item Value Reference Range Interpretation Comme nts FERRITIN (test code = 8507861485) 76.3 ng/mL 18.0-464.0 GINA (test code = GINA) Biotin has been reported to cause a negative bias, interpret results relative to patient's use of biotin. Lab Interpretation (test code = 28922-0) Normal [facility] HospitalGlycosylated Hemoglobin (A1C)2023-04-21 07:25:47* Test Item Value Reference Range Interpretation Comme nts HGB A1C (test code = 4548-4) 12.6 % 4.0-5.7 H GINA (test code = GINA) Reference RangesNormal: <5.7%Prediabetes: 5.7 - 6.4%Diabetes: > 6.5% Lab Interpretation (test code = 20859-1) Abnormal [facility] HospitalThyroid Stimulating [id number] 07:24:07 * Test Item Value Reference Range Interpretation Comme nts TSH (test code = 1059782123) 2.56 See_Comment [Automated messa ge] The system which generated this result transmitted reference range: 0.45 - 4.70 mIU/L. The reference range was not used to interpret this result as normal/abnormal. Lab Interpretation (test code = 70468-9) Normal [facility] HospitalPhosphorus2023-12-27 06:52:06* Test Item Value Reference Range Interpretation Comme nts PHOSPHORUS (test code = 1332091971) 3.2 mg/dL 2.5-5.0 Lab Interpretation (test cod e = 95487-7) Normal [facility] HospitalCritical [id number] 02:54:15NSergio chin MD ? ? 04/20/2023 ?8:54 [...] separately billable procedures and treating other patients. [facility] HospitalTrerlanger bledsoe hospitaldian [id number] 02:30:18* Test Item Value Reference Range Interpretation Comme nts TROPONIN I (test code = 4922448651) 0.154 ng/mL <=0.034 H GINA (test code [...] of biotin. Lab Interpretation (test code = 30742-0) Abnormal [facility] HospitalETHANOL2023-12-27 02:24:46 ALCOHOL<10mg/dL04/20/2023 8:24 PM [facility]10 Pwhucsao16-310 Toxic>100 Depression of FAMILY MEDIATOR>400 Fatalities ReportedUnHendrick Medical CenterCOMP. METABOLIC PANEL (47491)2023-04-21 02:19:15* Test Item Value Reference Range Interpretation Comme nts NA (test code = 2226893474) 129 mmol/L 135-145 L K (test code = 1858482616) 3.5 mmol/L 3.5-5.0 CL (test code = 3724627808) 94 mmol/L 98-108 L CO2 TOTAL (test code = 1047310225) 28 mmol/L 23-31 AGAP (test code = 8524994923) 7 2-16 BUN (test code = 0385755204) 26 mg/dL 7-23 H GLUCOSE (test code = 9623110877) 314 mg/dL 70-110 H CREATININE (test code = 2741133143) 0.92 mg/dL 0.60-1.25 TOTAL BILI (test code = 1867947286) 0.8 mg/dL 0.1-1.1 CALCIUM (test code = 7600989716) 8.5 mg/dL 8.6-10.6 L T PROTEIN (test code = 9058413447) 6.0 g/dL 6.3-8.2 L ALBUMIN (test code = 9582459555) 3.3 g/dL 3.5-5.0 L ALK PHOS (test code = 5813600102) 95 U/L 34-122 ALTv (test code = 1742-6) 23 U/L 5-50 AST(SGOT) (test code = 4764683065) 30 U/L 13-40 eGFR (test code = 01337-5) 98.2 mL/min/1.73m2 CKD-EPI eGFR (2020). Assuming creatinine has been stable day-to-day for at least three months, the eGFR indicates Category G1 (>= 90 mL/min/1.73 m2) Lab Interpretation (test code = 39642-7) Abnormal [facility] WITH [id number] 02:03:54* Test Item Value Reference Range Interpretation [...] g/dL 31.2-35.0 H RDW-SD (test code = 26827-6) 36.2 fL 38.5-51.6 L RDW-CV (test code = 788-0) 11.6 % 12.1-15.4 L PLT (test code = 777-3) 178 See_Comment [Automated [employer]] The system which generated this result transmitted reference range: 150 - 328 10*3/?L. The reference range was not used to interpret this result as normal/abnormal. MPV (test code = 32413-1) 10.9 fL 9.8-13.0 NRBC/100 WBC (test code = 2212089220) 0.0 See_Comment [Automated [employer]] The system which generated this result transmitted reference range: 0.0 - 10.0 /100 WBCs. The reference range was not used to interpret this result as normal/abnormal. NRBC x10^3 (test code = 0505791038) See_Comment [Automated [employer]] The system which generated this result transmitted reference range: 10*3/?L. The reference range was not used to interpret this result as normal/abnormal. GRAN MAT (NEUT) % (test code = 770-8) 81.3 % IMM GRAN % (test code = 8338923976) 0.30 % LYMPH % (test code = 736-9) 10.5 % MONO % (test code = 5905-5) 7.6 % EOS % (test code = 713-8) 0.1 % BASO % (test code = 706-2) 0.2 % GRAN MAT x10^3(ANC) (test code = 0154305243) 9.55 10*3/uL 1.99-6.95 H IMM GRAN x10^3 (test code = 3110326872) 0.04 10*3/uL 0.00-0.06 LYMPH x10^3 (test code = 731-0) 1.23 10*3/uL 1.09-3.23 MONO x10^3 (test code = 742-7) 0.89 10*3/uL 0.36-1.02 EOS x10^3 (test code = 711-2) 0.06-0.53 L BASO x10^3 (test code = 704-7) 0.01-0.09 Lab Interpretation (test code = 43508-2) Abnormal [facility] HospitalPOCT GLUCOSE (AUTOMATED)2023-04-21 01:55:51* Test Item Value Reference Range Interpretation Comme [facility] POCT GLU (test code = 4035697038) 408 mg/dL 70-110 H Lab Interpretation (test cod e = 44119-8) Abnormal [facility] HospitalCOMPREHENSIVE METABOLIC [id number] 05:07:51* Test Item Value Reference Range Interpretation Comme [facility] GLUCOSE (test code = 2217) 224 MG/DL 70-99 H BUN (test code = 2208) 22 MG/DL 6-20 H CREATININE (test code = 2214) 0.71 MG/DL 0.80-1.40 L eGFR (2020 CKD-EPI) (test code = 57052) 109 ML/MIN/1.73 >60 CALC BUN/CREAT (test code [...] code = 2219) 24 U/L 5-50 LIPID [id number] 05:07:51* Test Item Value Reference Range Interpretation [...] SPECIMENS. FOR MOREINFORMATION, SEE CLIENT ANNOUNCEMENT AT [email or web address] RISK RATIO LDL/HDL (test code = 2238) 1.72 RATIO <3.55 PSA, [id number] 05:07:10* Test Item Value Reference Range Interpretation Comme nts PSA, TOTAL (test code = 2606) 19.70 NG/ML See_Comment H NOTE: Methodolog y is Ashley Jasmina Electrochemiluminescence Immunoassay traceable to WHO reference standard 96/760. UNLESS OTHERWISE INDICATED, ALL TESTING PERFORMED [facility]ALLIN[facility] [address] [place] [address] MARKET DIRECTOR: DUSTIN COLMENARES M.D. CLIA NUMBER [id number] [place]. [id number] [Automated message] The system which generated this result transmitted reference range: <=4.00. The reference range was not used to interpret this result as normal/abnormal. HEMOGLOBIN [id number] 02:46:58* Test Item Value Reference Range Interpretation Comme nts HEMOGLOBIN A1c (test code = 86435) 11.0 % 4.2-5.6 H [employer] GUIDELINES FOR HGB A1C: [...] OR LABORATORY CONSULTATION. CBC W/AUTO DIFF WITH [id number] 02:32:39* Test Item Value Reference Range Interpretation [...] 0.00-0.10 ABS NUCLEATED RBCS (test code = 91398) 0.00 K/UL 0.00-0.11 Consult Notes Date/Time Note [...] when jensen is moved. COMMUNICATION Primary Language: Albanian Able to Verbalize needs: Yes Vision:good; no [...] Minutes: 20 min Jesica Murphy,PT [place]x License: [id number] Required Components in Determining Evaluation Level History: No personal factors or comorbidities: No (36477) 1-2 personal factors and/or comorbidities: Yes (77583) 3 or more personal factors and/ or comorbidities: No (28681) Examination of Body System(s) Addressing 1-2 elements: Yes (56790) Addressing a total of 3 or more elements: No (73601) Addressing a total of 4 or more elements: No (45974) Clinical Presentation Stable: Yes (90786) Evolving: No (64913) Unstable: No (06703) Clinical Decision Making (Complexity) Low: No (55959) Moderate: Yes (32358) High: No (96468) Jesica Murphy PT [facility] [place] 2023-08-15 10:01:34 Associated Order(s): CONSULT CARDIOLOGY [facility] [[email or web address]] Cardiology Consult Note Patient: Saturnino Shah Date [...] of Onset No Significant Medical Problems Mother SD (myocardial infarction) Father SOCIAL HISTORY Social History [...] specified complication Elevated troponins: Likely type II SD in the setting of underlying ELIEZER/elevated blood [...] per primary team. Last Two A1C Results ([facility] [[email or web address]]/LC, POCT, QUEST) Recent Labs 04/20/23195408/14/23 1547 HGBA1C [...] feel free to call our office at [phone]. I would be happy to be of further assistance for Saturnino Shah wellbeing. Voice recognition software has been used to create portions of this document. An attempt to proofread has been made to minimize errors. Please do not hesitate to call with any questions. Benja Rivera MD Piece Dyer, Division of Cardiology [facility] 2023-04-21 08:46:48 Associated Order(s): CONSULT ENDOCRINOLOGY Endocrinology Consult Note Consultation requested by: Service: White team Reason for Consultation: Diabetes Date of Service: 04/21/23 HPI 57 year old male with a PMH of HTN, T2DM, Fmhx premature CAD who presented with complaints of polyuria and weakness at [facility] ER. Patient transferred to [place] for further work up. Endocrinology consulted for diabetes management Diabetes Type and year diagnosed: 2011, type 2 Diabetes complications: none Hx of DM regimen: no meds for 3 years Compliance: - BG monitoring? - Hypoglycemia hx: no Hypoglycemia unawareness? no Symptoms of hyperglycemia: polyuria Living situation and support: homeless, lives with different relatives Diabetes doctor: PCP in [place], has not seen for few years Family hx of diabetes: no HX of glucocorticoid use: no HX of transfusions or EPO in last 6 months: no PAST MEDICAL HISTORY Past Medical History: Diagnosis Date HTN (hypertension) Uncontrolled diabetes mellitus with hyperglycemia History reviewed. No pertinent surgical history. Family History Problem Relation Age of Onset No Significant Medical Problems Mother SD (myocardial infarction) Father Social History Tobacco Use [...] with complaints of polyuria and weakness at [facility] ER. Patient transferred to [place] for further work up. Endocrinology consulted for [...] Cabrera.. Austin Amaro. Endocrinology Fellow, PGY 5 LTY PRINTING MACHINE OPERATOR Associated attestation - Rita Cabrera MD - 04/22/2023 2:11 PM NOVELTY PRINTING MACHINE OPERATOR Endocrinology Faculty Attestation: I evaluated this patient's progress on 04/21/[address] Amaro note as written and revised. I actively participated in the decision-making process. Please see the resident's note for additional details that includes pertinent addendums I made directly in the note during revision. Rita Cabrera MD [facility] Division of Endocrinology IM-ENDOCRINOLOGY,DIABET ES & METABOLISM [facility] [[email or web address]] - Health History and Physical Notes Date/Time Note Provider Source 2023-08-21 22:53:53 [email or web address] Hospitalist Admission H&P Date of Service: [...] consulted. Patient was given the application for [place] on last admission and will need to [...] of Onset No Significant Medical Problems Mother SD (myocardial infarction) Father SOCIAL HISTORY Social History [...] Tobacco user?: NO Patient will require observation [place] CONVEYOR MONITOR was verified during stay Lyubov Banda MD [facility] 2023 22:58:21 [facility] ADMIT H&P Date of Service: 2023 [...] of Onset No Significant Medical Problems Mother SD (myocardial infarction) Father ALLERGIES No Known Allergies [...] present Code Status: Presumed Full Code T [facility] EMERGENCY PHYSICIAN STAFF [facility] 2023-04-21 00:39:12 [facility] Admit H&P PCP: Erik Louie Jr Date of Service: 04/20/2023 CHIEF COMPLAINT: Polyuria HISTORY OF PRESENT ILLNESS Saturnino Shah is a 57 year old male with a PMH of HTN, T2DM, Fmhx premature CAD who presented with complaints of polyuria and weakness at [facility] ER. Patient transferred to [place] for further work up. Patient reports that [...] or drug use. Family history significant for SD in father in his 40s. Currently not [...] use drugs. Family history: family history includes SD (myocardial infarction) in his father; No Significant [...] help with resources. Plan: - Admit to [facility] - Trend Troponin to peak - [...] Internal Medicine Department PGY 2, [place] Team LTY PRINTING MACHINE OPERATOR Associated attestation - Bret Banda MD - 04/21/2023 2:47 PM NOVELTY PRINTING MACHINE OPERATOR I reviewed patient's chart, vitals, lab work, current medications and other diagnostic studies. I saw and examined the patient today and agree with the detailed note. I actively participated in the decision-making process. Bret Banda MD [facility] Division of Cardiology [facility] Notes Date/Time Note Provider Source 2023-08-24 [...] Outcome: Adequate for discharge Kalina Georges RN [facility] 2023-08-24 13:14:04 Problem: Pain Goal: Control [...] Absence of falls Outcome: Adequate for discharge [facility] 2023-08-23 07:12:12 Problem: Pain Goal: Control [...] Outcome: Progressing as expected Abi Lowery RN [facility] 2023-08-22 22:07:54 Problem: Pain Goal: Control [...] Outcome: Progressing as expected Tammy Sweeney RN [facility] 2023-08-22 08:41:53 Problem: Pain Goal: Control [...] Outcome: Progressing as expected Mihaela Lopez RN [facility] 2023-08-22 03:26:01 Problem: Pain Goal: Control [...] Outcome: Progressing as expected Angeline Claudio RN [facility] 2023-08-21 23:32:26 Patient admitted to [facility] 2101 for diagnosis of ELIEZER, urinary obstruction Patient agrees to admission, discussed plan of care with patient and family. Patient is awake, alert, oriented, resp reg unlabored, color appropriate for race, PIV intact No adverse reaction to medications administered while in ED Belongings with patient to unit Report to Xu VILLAGRAN Chela Reyes RN [facility] 2023-08-21 19:43:36 Pt C/O RLQ pain that started yesterday, pt states last BM 08/16/2023. 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 [...] 0.01 - 0.09 10*3/uL COMP. METABOLIC PANEL (07545) - Abnormal NA 120 (*) 135 - [...] CONTRAST Cbc with Diff Comp. Metabolic Panel (97554) Lipase Urinalysis Basic Metabolic Panel (NA, K, CL, CO2, GLUCOSE, BUN, CREATININE, CA) Orders Placed This Encounter Medications magnesium citrate solution 296 mL First Provider Eval: ED Events Date/Time Event User Comments 08/21/231949 Medical Screening Begins COSME CARDOAN -- 08/21/231949 First Provider Evaluation COSME CARDONA [...] treatment AdmissionCare documentation entered by: Cosme Cardona [facility] [place], 27th edition, Copyright ? 2022 [facility] [employer] [facility] All Rights Reserved. [id number]:26:32-05:00 ED COURSE ED Course as of 08/21/23 [...] on file Follow-up: Electronically signed by: Cosme Cadrona DO 08/21/23 0466 [facility] 2023-08-21 19:39:00 AdmissionCare Guideline: Urologic Disease, [...] treatment AdmissionCare documentation entered by: Cosme Cardona [facility], 27th edition, Copyright ? 2022 [facility] All Rights Reserved. [id number]:26:32-05:00 [facility] 2023-08-17 08:32:29 ----- Message from Yary [...] with one of us in 3-4 weeks. [facility] 2023-08-16 17:56:55 Summary: discharge transportation Discharge paperwork provided, patient stated he does not have a ride. Transportation was arranged with voucher. Discharge location: [address] [place] [address] Patient verbalized understanding. Hilary Quinones RN [facility] 2023-08-16 17:19:16 Problem: Pain Goal: Control of pain at or below patient's documented comfort goal Outcome: Resolved Goal: Reduction in pain sensation Outcome: Resolved Problem: Skin integrity Impaired (Risk or Actual) Goal: Prevention of new skin breakdown Outcome: Resolved Problem: Venous Thromboembolism, (actual or risk of) Goal: Absence of venous thromboembolism (Risk) Outcome: Resolved [facility] 2023-08-16 10:33:18 Summary: jensen Jensen discontinued without complications. Patient given lactulose PO. Patient notified to notify nurse and to leave urine/stool before flushing for nursing staff to assess. Patient verbalized understanding. [facility] 2023-08-16 00:51:24 Problem: Pain Goal: Control of pain at or below patient's documented comfort goal Outcome: Progressing as expected Goal: Reduction in pain sensation Outcome: Progressing as expected Problem: Skin integrity Impaired (Risk or Actual) Goal: Prevention of new skin breakdown Outcome: Progressing as expected Problem: Venous Thromboembolism, (actual or risk of) Goal: Absence of venous thromboembolism (Risk) Outcome: Progressing as expected [facility] 2023-08-15 19:27:06 Problem: Pain Goal: Control of pain at or below patient's documented comfort goal Outcome: Progressing as expected Goal: Reduction in pain sensation Outcome: Progressing as expected Problem: Skin integrity Impaired (Risk or Actual) Goal: Prevention of new skin breakdown Outcome: Progressing as expected Problem: Venous Thromboembolism, (actual or risk of) Goal: Absence of venous thromboembolism (Risk) Outcome: Progressing as expected [facility] Libia Johnson RN [facility] 2023 23:43:36 Problem: Pain Goal: Control of pain at or below patient's documented comfort goal Outcome: Progressing as expected Goal: Reduction in pain sensation Outcome: Progressing as expected Problem: Skin integrity Impaired (Risk or Actual) Goal: Prevention of new skin breakdown Outcome: Progressing as expected Problem: Venous Thromboembolism, (actual or risk of) Goal: Absence of venous thromboembolism (Risk) Outcome: Progressing as expected [facility] 2023 23:01:15 Patient admitted to [facility] [address] for diagnosis of Hypertension, elevated troponin, urine retention, ELIEZER, hypokalemia. Patient agrees to admission, discussed plan of care with patient and family. Patient is awake, alert, oriented, resp reg unlabored, color appropriate for race, PIV intact No adverse reaction to medications administered while in ED Belongings with patient to unit Report to [facility] RN Josi Miller RN [facility] 2023 18:56:57 Handoff report given to Josi VILLAGRAN Nunu Fang RN [facility] 2023 14:42:29 Has been out of diabetic, BP meds since April. States he can't "afford it". Struggling with constipation for "several days". He called EMS today for excessive fatigue and worsening hypertension. He is A&Ox4 and able to ambulate. Alba Hernandez RN [facility] 2023 14:38:00 Associated Order(s): EKG-12 Lead ROUTINE ONCE Pre-Procedure Diagnose(s): Hypertension, unspecified type Post-Procedure Diagnose(s): Hypertension, unspecified type; Elevated troponin I level; Urine retention [facility] [[email or web address]] Emergency Department Note Patient Name: Saturnino Shah Date of : 1965 58 year old male Treatment Room: TX6/TX6 Primary Care Physician: Erik Louie Jr Patient Escorted by: Self [9] Mode of Arrival: EMS - [place] [46] EMS Treatment Prior to ED Arrival: [...] History provided by: 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 2022 [facility] [employer] All Rights Reserved. [id number]:45:18-05:00 [facility] [[email or web address]] [employer] 2023 14:38:00 AdmissionCare Guideline: Renal Failure (Acute) [...] patients) AdmissionCare documentation entered by: Umang Reynaga [employer], edition, Copyright ? 2022 [facility] All Rights Reserved. [id number]:00:25-05:00 [facility] [[email or web address]] [employer] 2023-04-27 15:56:14 TRANSITIONAL CARE MANAGEMENT ASSESSMENT 04/27/2023 Saturnino Shah [id number] Saturnino Shah is a 57 year old /White male was admitted on 04/20/[address] He was discharged on 04/23/23 with [...] to check in. No linked episodes TCM Xla-btoe-tu-face outreach documentation: Future Appointments: LTY PRINTING MACHINE OPERATOR Jeannette Dawn LVN [facility] 2023-04-23 18:39:42 Patient refuses to take taxi voucher which takes him directly to [employer] stating, "My brother is on his way to pick me up. I don't want to upset him as it is anymore." When asked if his brother is going to take him to [employer], patient stated, "I don't know. That will be between me and my brother." Transportation in room, wheeled patient downstairs to [facility]. A Sparks RN [facility] 2023-04-23 17:33:42 Problem: Glucose control Goal: [...] Outcome: Progressing as expected A Whiting RN [facility] 2023-04-23 17:33:03 Problem: Glucose control Goal: [...] Valentino Whiting RN Outcome: Progressing as expected [facility] 2023-04-23 10:51:50 Problem: Glucose control [...] of cognitive ability Outcome: Progressing as expected [facility] 2023-04-23 00:56:44 Problem: Mental Status - Impaired Goal: Able to achieve maximum level of cognitive ability Outcome: Progressing as expected [facility] 2023-04-23 00:52:07 Problem: Glucose control [...] within specified parameters Outcome: Progressing as expected [facility] 2023-04-22 08:03:00 Problem: Glucose control [...] within specified parameters Outcome: Progressing as expected [facility] 2023-04-20 23:38:56 Problem: Glucose control [...] within specified parameters Outcome: Progressing as expected [facility] 2023-04-20 21:49:51 Patient admitted to [facility] 923 for diagnosis of WEAKNESS, NSTEMI, HYPERGLYCEMIA Patient agrees to admission, discussed plan of care with patient. Patient is awake, alert, oriented, resp reg unlabored, color appropriate for race, PIV intact No adverse reaction to medications administered while in ED Belongings with patient to unit Report to MARIE VILLAGRAN REPORT GIVEN TO MEDIC FOR [facility], PT LOADED TO BE TRANSFERRED. HEPARIN INFUSING AT 700 UNITS/ HOUR. LTY PRINTING MACHINE OPERATOR Jaelyn Vargas RN [facility] 2023-04-20 21:38:11 Report called to [facility], spoke with aMrie VILLAGRAN. Pt awaiting EMS transfer. LTY PRINTING MACHINE OPERATOR [facility] 2023-04-20 20:59:06 [facility] ETA 45 MIN per Chen A Carrero PCT [facility] 2023-04-20 20:54:15 Associated Order(s): Critical Care [...] separately billable procedures and treating other patients. [facility] 2023-04-20 20:00:00 Patient aware of UA sample needed. Unable to provide sample at this moment. Urinal at bedside. Call light within reach. 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 Per patient he was diagnosed with DM five years ago and stopped taking home meds-Metformin about three years ago. Patient c/o of being weak and increased UOP. Patient was nauseous AERODYNAMICS TEACHER but has resolved since. [facility] 2023-04-20 19:43:00 EMERGENCY DEPARTMENT ENCOUNTER [facility] Patient Name: Saturnino hSah Date of : 1965 57 year old Exam Room:Room/bed info not found Primary Care Physician: No primary care provider on file. 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 Per patient he was diagnosed with DM five years ago and stopped taking home meds-Metformin about three years ago. Patient c/o of being weak and increased UOP. Patient was nauseous AERODYNAMICS TEACHER but has resolved since. HPI History provided [...] 0.01 - 0.09 10*3/uL COMP. METABOLIC PANEL (83404) - Abnormal NA 129 (*) 135 - [...] VW CBC WITH DIFF COMP. METABOLIC PANEL (47914) URINALYSIS URINE DRUG (IMMUNOASSAY) - COMPREHENSIVE DRUG SCREEN W/O REFLEX ETHANOL POCT GLUCOSE (AUTOMATED) Troponin I Prothrombin Time / INR aPTT aPTT (for use with Heparin Infusion) Ferritin Serum Iron Panel Troponin I Thyroid Stimulating Hormone Glycosylated Hemoglobin (A1C) Phosphorus Cbc with Diff Basic Metabolic Panel (NA, K, CL, CO2, GLUCOSE, BUN, CREATININE, CA) Magnesium Lipid Panel (21211)(Total Cholesterol, Triglycerides, HDL) O2 Per Protocol Orders [...] mg Procedures EKG Time 1950 Sinus tach Gilman normal Intervals normal No acute ischemia Notes [...] demonstrates that he is having a silent SD. He has elevated troponin of 0.154. Please note he does not have any chest pain or shortness of breath. EKG does not demonstrate a STEMI. He was started on heparin, Plavix, and aspirin. The patient may require cardiac catheterization. The patient was transferred to [place] for further evaluation. History, physical exam findings, [...] this patient. Sergio Aponte Jr., MD Clinical [facility] [[email or web address]] Emergency Department [employer] is used frequently and may produce errors. Promptly contact for obvious discrepancies. Sergio Aponte MD 04/21/23 0025 [facility] EMERGENCY PHYSICIAN STAFF [facility]
--- NOTE | 2024-03-25 12:42 | ER ---
Nurse's Notes [facility] Name: Johnnie Maldonado Age: 58 yrs Sex: Male : 1965 Arrival Date: 03/25/2024 Time: 10:36 Bed 13 Private MD: Diagnosis: Encounter for indwelling catheter removal Presentation: 03/25 10:58 Chief complaint: Patient states: my catheter is supposed to come out tomorrow, but I tm6 would like it out today. 11:00 Coronavirus screen: Client denies travel out of the [place] in the last 14 days. Ebola tm6 Screen: Patient negative for fever greater than or equal to 101.5 degrees Fahrenheit, and additional compatible Ebola Virus Disease symptoms Patient denies exposure to infectious person. Patient denies travel to an Ebola-affected area in the 21 days before illness onset. No symptoms or risks identified at this time. Risk Assessment: Do you want to hurt yourself or someone else? Patient reports no desire to harm self or others. Onset of symptoms was March 25, 2024. 11:00 Method Of Arrival: Ambulatory tm6 11:00 Acuity: DONTE 5 tm6 11:03 Initial Sepsis Screen: Does the patient meet any 2 criteria? HR > 90 bpm. No. Patient's tm6 initial sepsis screen is negative. Does the patient have a suspected source of infection? No. Patient's initial sepsis screen is negative. Triage Assessment: 11:00 General: Appears in no apparent distress. Behavior is calm, cooperative. Pain: Denies tm6 pain. EENT: No signs and/or symptoms were reported regarding the EENT system. Neuro: Level of Consciousness is awake, alert, obeys commands, Oriented to person, place, time, situation. Cardiovascular: Patient's skin is warm and dry. Respiratory: Airway is patent Respiratory effort is even, unlabored, Respiratory pattern is regular, symmetrical. GI: No signs and/or symptoms were reported involving the gastrointestinal system. : Jensen in place Reports wanting jensen out. Derm: No signs and/or symptoms reported regarding the dermatologic system. Musculoskeletal: No signs and/or symptoms reported regarding the musculoskeletal system. Historical: - Allergies: 11:03 No Known Allergies; tm6 - PMHx: 11:00 diabetes mellitus; Hypertensive disorder; raynaud's; Urinary incontinence; tm6 - PSHx: 11:00 right arm; tm6 - Immunization history:: Flu vaccine is up to date. - Infectious Disease History:: Denies. - Social history:: Smoking status: Patient denies any tobacco usage or history of. Screenin:13 [facility] ED Fall Risk Assessment (Adult) History of falling in the last 3 months, tm6 including since admission No falls in past 3 months (0 pts) Confusion or Disorientation No (0 pts) Intoxicated or Sedated No (0 pts) Impaired Gait No (0 pts) Mobility Assist Device Used No (0 pt) Altered Elimination No (0 pt) Score/Fall Risk Level 0 - 2 = Low Risk Oriented to surroundings, Maintained a safe environment, Educated pt \T\ family on fall prevention, incl call for assistance when getting out of bed. Abuse screen: Denies threats or abuse. Denies injuries from another. Nutritional screening: No deficits noted. Tuberculosis screening: No symptoms or risk factors identified. Assessment: 13:04 Reassessment: see triage assessment. tm6 13:16 Reassessment: Patient and/or family updated on plan of care and expected duration. Pain tm6 level reassessed. Patient is alert, oriented x 3, equal unlabored respirations, skin warm/dry/pink. Vital Signs: 11:00 BP 104 / 69; Pulse 110; Resp 17; Temp 98(O); Pulse Ox 99% on R/A; MAP 79 mmHg; Weight tm6 54.43 kg; Height 5 ft. 3 in. ; Pain 0/10; 11:03 Pain 0/10; tm6 13:00 BP 135 / 97; Pulse 85; Resp 18; Temp 98; Pulse Ox 99% on R/A; MAP 108 mmHg; Pain 0/10; tm6 11:00 Body Mass Index 21.26 (54.43 kg, 160.02 cm) tm6 11:00 Pain Scale: Adult tm6 11:03 Pain Scale: Adult tm6 13:00 Pain Scale: Adult tm6 ED Course: 10:40 Patient arrived in ED. im 10:41 Jaky Browne FNP-C is PHCP. kb 10:41 Salvatore Doherty MD is Attending Physician. kb 11:00 Triage completed. tm6 11:03 Arm band placed on right wrist. tm6 13:04 Alma Andersen, RN is Primary Nurse. tm6 13:13 Patient has correct armband on for positive identification. Provided Education on: tm6 return to ER if cannot void, follow up with PCP. 13:13 No provider procedures requiring assistance completed. Patient did not have IV access tm6 during this emergency room visit. 13:14 Jensen cath removed intact, balloon deflated. tm6 Administered Medications: No medications were administered Medication: 13:13 VIS not applicable for this client. tm6 Outcome: 12:42 Discharge ordered by MD. odom 13:13 Discharged to home ambulatory, tm6 13:13 Condition: stable 13:13 Discharge instructions given to patient, Instructed on discharge instructions, follow up and referral plans. Demonstrated understanding of instructions, follow-up care, 13:15 Patient left the ED. tm6 Signatures: Jaky Browne, FLAT IRONER-C FLAT IRONER-Sandie Mustafa Tawney, RN RN tm6
--- NOTE | 2024-03-25 12:43 | EDPHYS ---
Physician Documentation [facility] Name: Johnnie Maldonado Age: 58 yrs Sex: Male : 1965 Arrival Date: 03/25/2024 Time: 10:36 Bed 13 Private MD: ED Physician Salvatore Doherty HPI: 03/25 11:29 This 58 yrs old Male presents to ER via Ambulatory with complaints of Problem kb With Urinary Catheter - removal. 11:29 Pt is a 58 year old male who presents to have jensen catheter removed. States he was kb discharged with jensen last week and was told to have jensen removed on 03/26. States he came a day early because he is starting a new job and needs it out. Denies any pain, fever, n/v/d. States they placed the jensen due to urinary frequency and enlarged prostate. . Historical: - Allergies: 11:03 No Known Allergies; tm6 - PMHx: 11:00 diabetes mellitus; Hypertensive disorder; raynaud's; Urinary incontinence; tm6 - PSHx: 11:00 right arm; tm6 - Immunization history:: Flu vaccine is up to date. - Infectious Disease History:: Denies. - Social history:: Smoking status: Patient denies any tobacco usage or history of. ROS: 11:29 Constitutional: As per HPI kb Exam: 11:29 Constitutional: This is a well developed, well nourished patient who is awake, alert, kb and in no acute distress. Head/Face: Normocephalic, atraumatic. ENT: Moist Mucous membranes Cardiovascular: Regular rate Respiratory: Respirations even and unlabored. No increased work of breathing. Talking in full sentences Abdomen/GI: Soft, non-tender. No distention Skin: Warm, dry with normal turgor. Normal color. MS/ Extremity: Pulses equal, no cyanosis. Neurovascular intact. Full, normal range of motion. Neuro: Awake and alert, GCS 15, oriented to person, place, time, and situation. Vital Signs: 11:00 BP 104 / 69; Pulse 110; Resp 17; Temp 98(O); Pulse Ox 99% on R/A; MAP 79 mmHg; Weight tm6 54.43 kg; Height 5 ft. 3 in. ; Pain 0/10; 11:03 Pain 0/10; tm6 13:00 BP 135 / 97; Pulse 85; Resp 18; Temp 98; Pulse Ox 99% on R/A; MAP 108 mmHg; Pain 0/10; tm6 11:00 Body Mass Index 21.26 (54.43 kg, 160.02 cm) tm6 11:00 Pain Scale: Adult tm6 11:03 Pain Scale: Adult tm6 13:00 Pain Scale: Adult tm6 MDM: 10:41 Medical Screening Exam initiated kb 11:31 Differential diagnosis: jensen malfunction, incontinence. Data reviewed: vital signs, kb nurses notes. Counseling: I had a detailed discussion with the patient and/or guardian regarding the historical points, exam findings, and any diagnostic results supporting the discharge/admit diagnosis, the need for outpatient follow up, a urologist, to return to the emergency department if symptoms worsen or persist or if there are any questions or concerns that arise at home. ED course: Discussed risks of removing jensen. Pt states he would still like it removed and will see a urologist when he can. . 03/25 11:01 Order name: Alma. Order: remove jensen; Complete Time: 13:14 kb Administered Medications: No medications were administered Disposition Summary: 03/25/24 12:42 Discharge Ordered Notes: Location: Home kb Condition: Stable kb Diagnosis - Encounter for indwelling catheter removal kb Followup: kb - With: Emergency Department - When: As needed - Reason: Worsening of condition Followup: kb - With: Private Physician - When: 2 - 3 days - Reason: Recheck today's complaints, Continuance of care, Re-evaluation by your physician Forms: - Medication Reconciliation Form kb - Antibiotic Education kb - Prescription Opioid Use kb - Patient Portal Instructions kb - Leadership Thank You Letter kb Signatures: Jaky Browne, [employer]ROLL TAX ANALYST-C PAYROLL TAX ANALYST-Alma Randle RN RN tm6 Corrections: (The following items were deleted from the chart) 11:32 11:29 Pt is a 58 year old male who presents to have jensen catheter removed. States he kb was discharged with jensen last week and was told to have jensen removed on 03/26. States he came a day early because he is starting a new job and needs it out. Denies any pain, fever, n/v/d. . kb
[2024-03-25 13:38] VITALS: BP 104/69; TEMP 98; O2SAT 99
== END 2024-03-25 13:15 | disposition home or self-care (01) ==
LOC: ER 10:36
DX: Z46.6 Encounter for fitting and adjustment of urinary device (principal)
CPT/HCPCS: 99283

== ENCOUNTER 2024-05-07 19:57 | Emergency (ER) | payer SELFPAY ==
--- OUTSIDE RECORDS SUMMARY | 2024-05-07 20:03 | XMS REPORT | Continuity of Care Document ---
Author Name Unknown Address [address] [facility] [address] [place] [address] [facility] thconnect Address [address] [facility] [address] [place] [address] Care Team Providers Care Academic Services Coordinator Name Role Phone Erik Louie Jr. Primary Care Physician + [phone] Gaudencio Cardona DO Attending Clinician [phone] Solo CHONG, Lyubov Hilton Attending Clinician [phone] Rosalie Irizarry RN Attending Clinician [phone] Miguel CHONG, Ricky K.H. Attending Clinician + [phone] Umang Botello MD Attending Clinician [phone] Jerry Fields DO Attending Clinician [phone] Vimal Quiñones MD Attending Clinician [phone] Jeannette Dawn LVN Attending Clinician + [phone] PARVEZ MONROE Attending Clinician Unavailable Servando Aponte MD Attending Clinician [phone] Bret Banda MD Attending Clinician [phone] Parvez Monroe MD Attending Clinician [phone] Solo CHONG, Lyubov Hilton Admitting Clinician [phone] Jerry Fields DO Admitting Clinician [phone] PARVEZ MONROE Admitting Clinician Unavailable Parvez Monroe MD Admitting Clinician Problems Condition Name Condition Details Condition Category Status Onset Date Resolution Date Last Treatment Date Treating Clinician Comments Source Elevated troponin I level Elevated troponin I level Disease Active 08-14 00:00: 00 [facility] Elevated brain natriureti c peptide (BNP) level Elevated brain natriureti c peptide (BNP) level Disease Active 08-14 00:00: 00 [facility] Essential hypertensi on Essential hypertensi on Disease Active 08-14 00:00: 00 [facility] ELIEZER (acute kidney injury) ELIEZER (acute kidney injury) Disease Active 08-14 00:00: 00 [facility] Type 2 diabetes mellitus with other specified complicati on Type 2 diabetes mellitus with other specified complicati on Disease Active 08-14 00:00: 00 [facility] Hypertensi on, unspecifie d type Hypertensi on, unspecifie d type Disease Active 08-13 00:00: 00 [facility] NSTEMI (non-ST elevated myocardial infarction ) NSTEMI (non-ST elevated myocardial infarction ) Disease Active 2022-04 00:00: 00 [facility] Allergies, Adverse Reactions, Alerts Allergy Name Allergy Type Status Severity Reaction(s) Onset Date Inactive Date Treating Clinician Comments Source NO KNOWN ALLERGIE S Drug Class Active [facility] Social History Social Habit Start Date Stop Date Quantity Comments Source [facility] 2023-08-23 00:00:00 2023-08-23 00:00:00 [facility] Alcohol intake 2023-08-22 00:00:00 2023-08-22 00:00:00 Lifetime non-drinker (finding) [facility] Tobacco use and exposure 2023-04-21 00:00:00 2023-04-21 00:00:00 Smokeless tobacco non-user [facility] Sex Assigned At 1965 00:00:00 1965 00:00:00 [facility] Smoking Status Start Date Stop Date Source Never smoked tobacco [facility] Medications Ordered Medication Name Filled Medication Name Start Date Stop Date Current Medication? Ordering Clinician Indication Dosage Frequency Signature (SIG) Comments Components Source acarbose 25 mg tablet 08-23 00:00: 00 Yes [id number] 25mg Take 1 tablet by mouth in the morning and 1 tablet at noon and 1 tablet in the evening. Take with meals. [facility] metFORMIN 500 mg 24 hr tablet 08-23 00:00: 09-23 04:59 :00 No [id number] 500mg Take 1 tablet by mouth in the morning and 1 tablet in the evening. Take with meals. Do all this for 30 days. [facility] amLODIPine 10 mg tablet 08-23 00:00: 09-23 04:59 :00 No [id number] 10mg Take 1 tablet by mouth in the morning for 30 days. [facility] tamsulosin 0.4 mg 24 hr capsule 08-23 00:00: 09-23 04:59 :00 No [id number] .4mg Take 1 capsule by mouth in the morning for 30 days. [facility] levoFLOXaci n 500 mg tablet 08-23 00:00: 00 08-26 04:59 :00 No [id number] 500mg Take 1 tablet by mouth every 24 (twenty-fo ur) hours for 2 days. [facility] cefTRIAXone (ROCEPHIN) 1,000 mg in [...] Urine
D uration of therapy: Once (ED) [facility] D5W IV infusion 1,000 mL 08-22 15:00: 00 08-22 16:53 :22 No 1000mL at 50 mL/hr, IV Infusion, ONCE, 1 dose, On Wed08/23/23 at 1000, Routine [facility] amLODIPine (NORVASC) tablet 5 mg 08-22 14:00: 00 Yes 5mg 5 mg, Oral, DAILY, First dose on Wed08/23/23 at 0900, Until Discontinu ed, Routine [facility] D5W 0.45% NaCl (1/2NS) IV infusion 1,000 mL 08-22 02:29: 00 08-23 17:53 :57 No 1000mL at 75 mL/hr, 1,000 mL, IV Infusion, CONTINUOUS , Starting on Wed08/22/23 at 2130, Until Wed08/24/23 at 1253, Routine [facility] D5W IV infusion 1,000 mL 08-21 21:30: 00 08-22 02:27 :22 No 1000mL at 100 mL/hr, IV Infusion, CONTINUOUS , Starting on Wed08/22/23 at 1630, Until Wed08/22/23 at 2127, Routine [facility] Sliding Scale Insulin - Lispro (HumaLOG) 08-21 21:00: 00 Yes Subcutaneo us, Q4H, First dose on Wed08/22/23 at 1600, Until Discontinu ed, Routine [facility] glucagon (GLUCAGEN DIAGNOSTIC KIT) injection 1 mg 08-21 20:17: 12 Yes 1mg 1 mg, Intramuscu lar, PRN, Starting on Wed08/22/23 at 1517, Until Discontinu ed, HAO, Blood Glucose < or = 70 mg/dL and patient is NPO, unable to swallow or has mental changes. [facility] dextrose 50 % in water (D50W) injection 25 mL 08-21 20:17: 12 Yes 25mL 25 mL, Slow IV Push, PRN, Starting on Wed08/22/23 at 1517, Until Discontinu ed, HAO, Blood Glucose < or = 70 mg/dL and patient is NPO, unable to swallow or has mental status changes. [facility] D5W IV infusion 1,000 mL 08-21 17:45: 00 08-21 20:16 :11 No 1000mL at 100 mL/hr, IV Infusion, CONTINUOUS , Starting on Wed08/22/23 at 1245, Until Wed08/22/23 at 1516, Routine [facility] tamsulosin (FLOMAX) capsule 0.4 mg 08-21 14:00: 00 Yes .4mg 0.4 mg, Oral, DAILY, First dose on Wed08/22/23 at 0900, Until Discontinu ed, Routine [facility] docusate (COLACE) capsule 100 mg 08-21 13:00: 00 Yes 100mg 100 mg, Oral, BID, First dose on Wed08/22/23 at 0800, Until Discontinu ed, Routine [facility] heparin (porcine) injection 5,000 Units 08-21 13:00: 00 Yes 5000U 5,000 Units, Subcutaneo us, Q12H, First dose on Wed08/22/23 at 0800, Until Discontinu ed, Routine [facility] D5W 0.45% NaCl (1/2NS) IV infusion 1,000 mL 08-21 06:15: 00 08-21 16:44 :38 No 1000mL at 100 mL/hr, 1,000 mL, IV Infusion, CONTINUOUS , Starting on Wed08/22/23 at 0115, Until Wed08/22/23 at 1144, Routine [facility] D5W 0.45% NaCl (1/2NS) Bolus infusion 1,000 mL 08-21 06:00: 00 08-21 06:21 :00 No 1000mL at 999 mL/hr, 1,000 mL, IV Infusion, ONCE, 1 dose, On Wed08/22/23 at 0100, Routine [facility] NaCl 0.9% (NS) bolus infusion 1,000 mL 08-21 04:15: 00 08-21 05:05 :00 No 1000mL at 999 mL/hr, 1,000 mL, IV Infusion, ONCE, 1 dose, On 08/21/23 at 2315, STAT [facility] bisacodyL (DULCOLAX) tablet 10 mg 08-21 04:02: 51 Yes 10mg 10 mg, Oral, QDAILYPRN, Starting on 08/21/23 at 2302, Until Discontinu ed, Routine, Constipati on [facility] ondansetron (ZOFRAN (PF)) injection 4 mg 08-21 04:02: 17 Yes 4mg 4 mg, Slow IV Push, Q6HPRN, Starting on 08/21/23 at 2302, Until Discontinu ed, Routine, Nausea and Vomiting (N/V) [facility] FENTanyl PF (SUBLIMAZE (PF)) injection 12.5 mcg 08-21 04:02: 09 08-22 04:01 :09 No 12.5ug 12.5 mcg, Slow IV Push, Q6HPRN, Starting on 08/21/23 at 2302, Until 08/22/23 at 2301, Routine, Pain (scale 7-10), Pain (scale 4-6) [facility] acetaminoph en (TYLENOL) tablet 650 mg 08-21 04:01: 56 Yes 650mg 650 mg, Oral, Q6HPRN, Starting on 08/21/23 at 2301, Until Discontinu ed, Routine, Pain (scale 1-3) [facility] magnesium citrate solution 296 mL 08-21 01:45: 00 08-21 01:25 :00 No 296mL 296 mL, Oral, ONCE, 1 dose, On 08/21/23 at 2045, Routine [facility] amLODIPine 5 mg tablet 08-16 00:00: 00 08-23 00:00 :00 No [id number] 5mg Take 1 tablet by mouth in the morning for 30 days. [facility] lactulose (CEPHULAC) solution 45 mL 08-15 15:45: 00 08-15 15:21 :00 No 45mL 45 mL, Oral, ONCE, 1 dose, On Wed08/16/23 at 1045, Routine [facility] amLODIPine (NORVASC) tablet 5 mg 08-15 14:00: 00 Yes 5mg 5 mg, Oral, DAILY, First dose on Wed08/16/23 at 0900, Until Discontinu ed, Routine [facility] sennosides (SENOKOT) tablet 8.6 mg 08-15 14:00: 00 Yes 8.6mg 8.6 mg, Oral, DAILY, First dose on Wed08/16/23 at 0900, Until Discontinu ed, Routine [facility] losartan (COZAAR) tablet 25 mg 08-15 14:00: 00 Yes 25mg 25 mg, Oral, DAILY, First dose (after last modificati on) on Wed08/16/23 at 0900, Until Discontinu ed, Routine [facility] docusate (COLACE) capsule 100 mg 08-15 13:00: 00 Yes 100mg 100 mg, Oral, BID, First dose on Wed08/16/23 at 0800, Until Discontinu ed, Routine [facility] lactulose (CEPHULAC) solution 30 mL 08-15 10:00: 00 08-15 09:33 :00 No 30mL 30 mL, Oral, ONCE, 1 dose, On Wed08/16/23 at 0500, Routine [facility] metFORMIN 500 mg 24 hr tablet 08-15 00:00: 00 08-23 00:00 :00 No [id number] 500mg Take 1 tablet by mouth in the morning and 1 tablet in the evening. Take with meals. Do all this for 30 days. [facility] acarbose 25 mg tablet 08-15 00:00: 00 08-23 00:00 :00 No [id number] 25mg Take 1 tablet by mouth in the morning and 1 tablet at noon and 1 tablet in the evening. Take with meals. Do all this for 30 days. [facility] pioglitazon e 15 mg tablet 08-15 00:00: 00 08-23 00:00 :00 No [id number] 15mg Take 1 tablet by mouth in the morning for 30 days. [facility] tamsulosin 0.4 mg 24 hr capsule 08-15 00:00: 00 08-23 00:00 :00 No [id number] .4mg Take 1 capsule by mouth in the morning for 30 days. [facility] losartan 25 mg tablet 08-15 00:00: 00 08-23 00:00 :00 No [id number] 25mg Take 1 tablet by mouth in the morning for 30 days. [facility] glipiZIDE (GLUCOTROL) tablet 5 mg 08-14 21:30: 00 Yes 5mg 5 mg, Oral, BIDAC, First dose on 08/15/23 at 1630, Until Discontinu ed, Routine [facility] KCL (KLOR-CON M20) tablet 40 mEq 08-14 21:30: 00 08-14 21:21 :00 No 40meq 40 mEq, Oral, ONCE, 1 dose, On 08/15/23 at 1630, Routine [facility] pioglitazon e (ACTOS) tablet 7.5 mg 08-14 17:00: 00 08-15 12:47 :51 No 7.5mg 7.5 mg, Oral, DAILY, First dose on 08/15/23 at 1200, Until Discontinu ed, Routine [facility] tamsulosin (FLOMAX) capsule 0.4 mg 08-14 15:49: 00 Yes .4mg 0.4 mg, Oral, DAILY, First dose on 08/15/23 at 1100, Until Discontinu ed, Routine [facility] amLODIPine (NORVASC) tablet 10 mg 08-14 14:00: 00 08-14 15:51 :30 No 10mg 10 mg, Oral, DAILY, First dose on 08/15/23 at 0900, Until Discontinu ed, Routine [facility] heparin (porcine) injection 5,000 Units 08-14 03:00: 00 08-14 06:07 :44 No 5000U 5,000 Units, Subcutaneo us, Q8H, First dose on 08/14/23 at 2200, Until Discontinu ed, Routine [facility] Sliding Scale Insulin - Lispro (HumaLOG) 08-14 02:00: 00 08-14 18:06 :14 No Subcutaneo us, TID MEALS+HS, First dose on 08/14/23 at 2100, Until Discontinu ed, Routine [facility] glucagon (GLUCAGEN DIAGNOSTIC KIT) injection 1 mg 08-14 00:36: 37 Yes 1mg 1 mg, Intramuscu lar, PRN, Starting on 08/14/23 at 1936, Until Discontinu ed, HAO, Blood Glucose < or = 70 mg/dL and patient is NPO, unable to swallow or has mental changes. [facility] dextrose 50 % in water (D50W) injection 25 mL 08-14 00:36: 37 Yes 25mL 25 mL, Slow IV Push, PRN, Starting on 08/14/23 at 1936, Until Discontinu ed, HAO, Blood Glucose < or = 70 mg/dL and patient is NPO, unable to swallow or has mental status changes. [facility] acetaminoph en (TYLENOL) tablet 650 mg 08-14 00:36: 24 Yes 650mg 650 mg, Oral, Q6HPRN, Starting on 08/14/23 at 1936, Until Discontinu ed, Routine, Pain (scale 1-3) [facility] aspirin chewable tablet 324 mg 08-13 23:15: 00 08-13 22:56 :00 No [id number] 324mg 324 mg, Oral, ONCE, 1 dose, On 08/14/23 at 1815, HAO [facility] lidocaine 2% viscous (LIDOCAINE VISCOUS) 2 % solution 15 mL 08-13 23:00: 00 08-13 22:10 :00 No [id number] 15mL 15 mL, Oral, ONCE, 1 dose, On 08/14/23 at 1800, Routine [facility] KCL (KLOR-CON M20) tablet 20 mEq 08-13 22:30: 00 08-13 22:59 :00 No [id number] 20meq 20 mEq, Oral, ONCE, 1 dose, On 08/14/23 at 1730, [facility] metoprolol tartrate (LOPRESSOR) tablet 50 mg 08-13 22:00: 00 08-13 22:58 :00 No [id number] 50mg 50 mg, Oral, ONCE, 1 dose, On 08/14/23 at 1700, [facility] iopamidol (ISOVUE 370-500 mL) injection 80 mL 08-13 21:30: 00 08-13 21:45 :00 No [id number] 80mL 80 mL, Intravenou s, ONCE, 1 dose, On 08/14/23 at 1645, Routine [facility] acetaminoph en (TYLENOL) tablet 650 mg 08-13 21:15: 00 08-13 22:57 :00 No [id number] 650mg 650 mg, Oral, ONCE, 1 dose, On 08/14/23 at 1615, [facility] amLODIPine (NORVASC) tablet 5 mg 08-13 21:15: 00 08-13 22:58 :00 No [id number] 5mg 5 mg, Oral, ONCE, 1 dose, On 08/14/23 at 1615, [facility] NaCl 0.9% (NS) bolus infusion 1,000 mL 08-13 21:15: 00 08-13 21:50 :00 No [id number] 1000mL at 999 mL/hr, 1,000 mL, IV Infusion, ONCE, 1 dose, On 08/14/23 at 1615, [facility] insulin NPH (HUMULIN N) injection 9 Units 2022-04 14:00: 00 Yes 9U 9 Units, Subcutaneo us, QAM WITH BREAKFAST, First dose (after last modificati on) on Wed04/24/23 at 0800, Until Discontinu ed, Routine [facility] losartan 25 mg tablet 2022-04 00:00: 00 08-15 00:00 :00 No [id number] 25mg Take 1 tablet by mouth in the morning. [facility] tamsulosin (FLOMAX) 0.4 mg 24 hr capsule 2022-04 00:00: 00 08-15 00:00 :00 No [id number] .4mg Take 1 capsule by mouth in the morning. [facility] metFORMIN 500 mg tablet 2022-04 00:00: 00 05-23 05:59 :00 No [id number] Take 1 tablet by mouth 2 (two) times daily with meals for 7 days, THEN 2 tablets 2 (two) times daily with meals for 21 days. [facility] insulin lispro (human) (HumaLOG U-100) injection 3 Units 2022-04 23:00: 00 Yes 3U 3 Units, Subcutaneo us, TID MEALS, First dose (after last modificati on) on Wed04/23/23 at 1700, Until Discontinu ed, Routine [facility] insulin NPH (HUMULIN N) injection 5 Units 2022-04 23:00: 00 Yes 5U 5 Units, Subcutaneo us, QPM, First dose (after last modificati on) on Wed04/23/23 at 1700, Until Discontinu ed, Routine [facility] losartan (COZAAR) tablet 25 mg 2022-04 15:00: 00 Yes 25mg 25 mg, Oral, DAILY, First dose on Wed04/23/23 at 0900, Until Discontinu ed, Routine [facility] Potassium Bicarb-Citr ic Acid (EFFER-K) effervescen t tablet 40 mEq 2022-04 13:00: 00 04-23 13:33 :00 No 40meq 40 mEq, Oral, ONCE, 1 dose, On Wed04/23/23 at 0700, Routine [facility] ramelteon (ROZEREM) tablet 8 mg 2022-04 10:45: 00 04-23 10:51 :00 No 8mg 8 mg, Oral, ONCE NOW, 1 dose, On Wed04/23/23 at 0500, Routine [facility] Blood-Gluco se Meter (ACCU-CHEK GUIDE GLUCOSE METER) [facility] 2022-04 00:00: 00 Yes [id number] Use as directed [facility] lancets 33 gauge [facility] 2022-04 00:00: 00 Yes [id number] Use as directed [facility] blood sugar diagnostic (ACCU-CHEK GUIDE TEST STRIPS) strip 2022-04 00:00: 00 Yes [id number] Use as directed [facility] pioglitazon e 15 mg tablet 2022-04 00:00: 00 08-15 00:00 :00 No [id number] 7.5mg Take 0.5 tablets by mouth in the morning. [facility] acarbose 25 mg tablet 2022-04 00:00: 00 08-15 00:00 :00 No [id number] 25mg Take 1 tablet by mouth in the morning and 1 tablet at noon and 1 tablet in the evening. Take with meals. [facility] atorvastati n 80 mg tablet 2022-04 00:00: 00 05-24 05:59 :00 No [id number] 80mg Take 1 tablet by mouth at bedtime for 30 days. [facility] glipiZIDE 5 mg tablet 2022-04 00:00: 00 05-24 05:59 :00 No [id number] 5mg Take 1 tablet by mouth 2 (two) times daily before breakfast and dinner for 30 days. [facility] enoxaparin (LOVENOX) injection 40 mg 2022-04 15:00: 00 Yes 40mg 40 mg, Subcutaneo us, DAILY, First dose on Wed04/22/23 at 0900, Until Discontinu ed, Routine [facility] insulin NPH (HUMULIN N) injection 8 Units 2022-04 14:00: 00 04-23 19:10 :37 No 8U 8 Units, Subcutaneo us, QAM WITH BREAKFAST, First dose on Wed04/22/23 at 0800, Until Discontinu ed, Routine [facility] insulin NPH (HUMULIN N) injection 4 Units 2022-04 23:00: 00 04-23 19:10 :37 No 4U 4 Units, Subcutaneo us, QPM, First dose on Wed04/21/23 at 1700, Until Discontinu ed, [facility] lispro (human) (HumaLOG U-100) injection 2 Units 2022-04 23:00: 00 04-23 19:10 :37 No 2U 2 Units, Subcutaneo us, TID MEALS, First dose (after last modificati on) on Wed04/21/23 at 1700, Until Discontinu ed, Routine [facility] NaCl 0.9% (NS) IV infusion 250 mL 2022-04 21:15: 00 04-22 20:03 :10 No [id number] 250mL at 20 mL/hr, IV Infusion, CONTINUOUS , Starting on Wed04/21/23 at 1515, Until Wed04/22/23 at 1403, Routine
To keep vein open
[facility] perflutren lipid microsphere s (DEFINITY) injection 2 mL 2022-04 21:00: 00 04-21 20:15 :00 No [id number] 2mL 2 mL, IV Push, ONCE, 1 dose, On Wed04/21/23 at 1500, Routine [facility] atropine injection 1 mg 2022-04 21:00: 00 04-21 20:44 :00 No [id number] 1mg 1 mg, Slow IV Push, ONCE, 1 dose, On Wed04/21/23 at 1500, Routine [facility] DOBUTamine (DOBUTREX) 250 mg/250 mL RTU infusion 2022-04 20:13: 51 04-22 20:03 :10 No [id number] 5ug/kg/ min 5 mcg/kg/min ?59 kg (17.7 [...] the Dobutamine infusion. (see Adjunctive Therapy)<b r> [facility] perflutren protein-A microsphr (OPTISON) injection 3 mL 2022-04 17:15: 00 04-21 15:22 :00 No [id number] 3mL 3 mL, IV Push, ONCE, 1 dose, On Wed04/21/23 at 1115, Routine [facility] potassium chloride in water 10 mEq/100 mL RTU 10 mEq 2022-04 17:00: 00 04-21 20:59 :00 No 10meq 10 mEq, IV Piggyback, Q1H, 4 doses, First dose (after last reorder) on Wed04/21/23 at 1100, Last dose on Wed04/21/23 at 1400, Administer over 60 Minutes, 100 mL [facility] tamsulosin (FLOMAX) capsule 0.4 mg 2022-04 15:00: 00 Yes .4mg 0.4 mg, Oral, DAILY, First dose on Wed04/21/23 at 0900, Until Discontinu ed, Routine [facility] aspirin chewable tablet 81 mg 2022-04 15:00: 00 04-22 16:28 :38 No 81mg 81 mg, Oral, DAILY, First dose on Wed04/21/23 at 0900, Until Discontinu ed, Routine [facility] aspirin tablet 325 mg 2022-04 15:00: 00 04-21 06:21 :21 No 325mg 325 mg, Oral, DAILY, First dose on Wed04/21/23 at 0900, Until Discontinu ed, Routine [facility] Sliding Scale Insulin - Lispro (HumaLOG) 2022-04 14:00: 00 Yes Subcutaneo us, TID MEALS+HS, First dose on Wed04/21/23 at 0800, Until Discontinu ed, Routine [facility] magnesium sulfate in water 2 gram/50 mL (4 %) infusion 2 g 2022-04 12:30: 00 04-21 15:11 :00 No 2g 2 g, IV Piggyback, Administer over 60 Minutes, ONCE, 1 dose, On Wed04/21/23 at 0630, Routine [facility] Potassium Bicarb-Citr ic Acid (EFFER-K) effervescen t tablet 40 mEq 2022-04 12:30: 00 04-21 12:36 :00 No 40meq 40 mEq, Oral, ONCE, 1 dose, On Wed04/21/23 at 0630, [facility]ine [facility] insulin glargine (LANTUS U-100) injection 9 Units 2022-04 07:45: 00 04-21 21:08 :08 No .15U/kg /d 9 Units (rounded from 8.745 Units = 0.15 Units/kg/d ay ?58.3 kg), Subcutaneo us, QHS, First dose (after last modificati on) on Wed04/21/23 at 0145, Until Discontinu ed, Routine [facility] atorvastati n (LIPITOR) tablet 80 mg 2022-04 06:30: 00 Yes 80mg 80 mg, Oral, QHS, First dose on Wed04/21/23 at 0030, Until Discontinu ed, Routine [facility] dextrose 50 % in water (D50W) injection 25 mL 2022-04 06:24: 50 Yes 25mL 25 mL, Slow IV Push, PRN, Starting on Wed04/21/23 at 0024, Until Discontinu ed, HAO, Blood Glucose < or = 70 mg/dL and patient is NPO, unable to swallow or has mental status changes. [facility] acetaminoph en (TYLENOL) tablet 650 mg 2022-04 05:53: 21 Yes 650mg 650 mg, Oral, Q6HPRN, Starting on Wed04/20/23 at 2353, Until Discontinu ed, Routine, Pain (scale 1-3) [facility] NaCl 0.9% (NS) bolus infusion 1,000 mL 2022-04 04:00: 00 04-21 03:45 :00 No 1000mL at 999 mL/hr, 1,000 mL, IV Infusion, ONCE, 1 dose, On Wed04/20/23 at 2200, STAT [facility] clopidogreL (PLAVIX) 300 mg tablet 300 mg 2022-04 03:30: 00 04-21 02:50 :00 No 300mg 300 mg, Oral, ONCE, 1 dose, On Wed04/20/23 at 2130, HAO [facility] HEPARIN SODIUM (PORCINE) 1,000 UNIT/ML BOLUS ACS ORDER SET 2022-04 02:45: 00 04-21 02:53 :00 No 60U/kg 3,540 Units (60 Units/kg ?59 kg), IV Push, ONCE, 1 dose, On Wed04/20/23 at 2044, HAO [facility] heparin 25,000 Units/250 mL (Premixed [...] INITIAL BOLUS OR INITIAL INFUSION RATE.
[facility] Vital Signs Vital Name Observation Time Observation Value Comments S ource Systolic blood pressure 2023-08-24 13:02:00 150 mm[Hg] [facility] Diastolic blood pressure 2023-08-24 13:02:00 88 mm[Hg] [facility] Heart rate 2023-08-24 13:02:00 79 /min [facility] Body temperature 2023-08-24 13:02:00 36.44 Deya [facility] Respiratory rate 2023-08-24 13:02:00 14 /min [facility] Oxygen saturation in Arterial blood by Pulse oximetry 2023-08-24 13:02:00 98 /min [facility] Body weight 2023-08-24 08:43:00 58.469 kg [facility] BMI 2023-08-24 08:43:00 22.83 kg/m2 [facility] Body height 2023-08-22 04:52:00 160 cm [facility] Systolic blood pressure 2023-08-16 16:53:00 154 mm[Hg] [facility] Diastolic blood pressure 2023-08-16 16:53:00 94 mm[Hg] [facility] Heart rate 2023-08-16 16:53:00 82 /min [facility] Body temperature 2023-08-16 16:53:00 36.61 Deya [facility] Respiratory rate 2023-08-16 16:53:00 16 /min [facility] Oxygen saturation in Arterial blood by Pulse oximetry 2023-08-16 16:53:00 99 /min [facility] Body weight 2023-08-16 09:56:00 56.473 kg [facility] BMI 2023-08-16 09:56:00 22.05 kg/m2 [facility] Body height 2023-08-15 04:07:00 160 cm [facility] Systolic blood pressure 2023-04-23 18:11:00 141 mm[Hg] [facility] Diastolic blood pressure 2023-04-23 18:11:00 80 mm[Hg] [facility] Heart rate 2023-04-23 18:11:00 101 /min [facility] Body temperature 2023-04-23 18:11:00 35.89 Deya [facility] Respiratory rate 2023-04-23 18:11:00 18 /min [facility] Oxygen saturation in Arterial blood by Pulse oximetry 2023-04-23 18:11:00 98 /min [facility] Body weight 2023-04-22 09:57:00 57.561 kg [facility] BMI 2023-04-22 09:57:00 22.48 kg/m2 [facility] Body height 2023-04-21 20:00:00 160 cm [facility] Procedures Procedure Date / Time Performed Performing Clinician Source POCT GLUCOSE (AUTOMATED) 2023-08-24 16:13:00 Jami Banda [facility] POCT GLUCOSE (AUTOMATED) 2023-08-24 12:34:00 Jami Banda [facility] BASIC METABOLIC PANEL (NA, K, CL, CO2, GLUCOSE, BUN, CREATININE, CA) 2023-08-24 08:42:00 Jrery Fields [facility] CBC WITH DIFF 2023-08-24 08:42:00 Jerry Fields [facility] POCT GLUCOSE (AUTOMATED) 2023-08-24 05:46:00 Jami Banda [facility] BASIC METABOLIC PANEL (NA, K, CL, CO2, GLUCOSE, BUN, CREATININE, CA) 2023-08-24 01:37:00 Jerry Fields [facility] POCT GLUCOSE (AUTOMATED) 2023-08-24 01:27:00 Jami Banda [facility] POCT GLUCOSE (AUTOMATED) 2023-08-23 21:29:00 Jami Banda [facility] BASIC METABOLIC PANEL (NA, K, CL, CO2, GLUCOSE, BUN, CREATININE, CA) 2023-08-23 17:41:00 Jerry Fields [facility] POCT GLUCOSE (AUTOMATED) 2023-08-23 16:42:00 Jami Banda [facility] POCT GLUCOSE (AUTOMATED) 2023-08-23 12:36:00 Jami Banda [facility] POCT GLUCOSE (AUTOMATED) 2023-08-23 09:09:00 Jami Banda [facility] MAGNESIUM 2023-08-23 08:23:00 Jerry Fields [facility] BASIC METABOLIC PANEL (NA, K, CL, CO2, GLUCOSE, BUN, CREATININE, CA) 2023-08-23 08:23:00 Jerry Fields [facility] CBC WITH DIFF 2023-08-23 08:23:00 Jerry Fields [facility] POCT GLUCOSE (AUTOMATED) 2023-08-23 04:52:00 Jami Banda [facility] POCT GLUCOSE (AUTOMATED) 2023-08-23 00:42:00 Jami Banda [facility] BASIC METABOLIC PANEL (NA, K, CL, CO2, GLUCOSE, BUN, CREATININE, CA) 2023-08-23 00:38:00 Jerry Fields [facility] POCT GLUCOSE (AUTOMATED) 2023-08-22 21:18:00 Jami Banda [facility] URIC ACID 2023-08-22 19:21:00 Alyssa Cain Uni [facility] PROTEIN CREAT RATIO URINE RANDOM 2023-08-22 19:21:00 Alyssa Cain [facility] CORTISOL AM 2023-08-22 19:20:00 Alyssa Cain [facility] BASIC METABOLIC PANEL (NA, K, CL, CO2, GLUCOSE, BUN, CREATININE, CA) 2023-08-22 13:21:00 Lyubov Banda [facility] LACTIC ACID WHOLE BLOOD 2023-08-22 09:16:00 Loreta Banda mmad [facility] MAGNESIUM 2023-08-22 08:30:00 Lyubov Banda [facility] TROPONIN I 2023-08-22 08:30:00 Lyubov Banda [facility] CBC WITH DIFF 2023-08-22 08:30:00 [facility] 2023-08-22 08:30:00 Lyubov Banda [facility] PHOSPHORUS 2023-08-22 04:01:00 Lyubov Banda [facility] BASIC METABOLIC PANEL (NA, K, CL, CO2, GLUCOSE, BUN, CREATININE, CA) 2023-08-22 04:01:00 Gaudencio Cardona [facility] URINALYSIS 2023-08-22 01:52:00 Gaudencio Cardona [facility] CT ABDOMEN PELVIS WO CONTRAST 2023-08-22 01:26:17 Gaudencio Cardona [facility] CREATINE KINASE 2023-08-22 01:24:00 Lyubov Banda [facility] LIPASE 2023-08-22 01:24:00 [facility] COMP. METABOLIC PANEL (90323) 2023-08-22 01:24:00 Singer [facility] CBC WITH DIFF 2023-08-22 01:24:00 Singer [facility] POCT GLUCOSE (AUTOMATED) 2023-08-16 21:51:00 Ximena Fields [facility] POCT GLUCOSE (AUTOMATED) 2023-08-16 16:54:00 Ximena Fields [facility] POCT GLUCOSE (AUTOMATED) 2023-08-16 12:45:00 Ximena Fields [facility] POCT GLUCOSE (AUTOMATED) 2023-08-16 02:06:00 Ximena Fields [facility] POCT GLUCOSE (AUTOMATED) 2023-08-15 21:29:00 Ximena Fields [facility] POCT GLUCOSE (AUTOMATED) 2023-08-15 16:39:00 Ximena Fields [facility] POCT GLUCOSE (AUTOMATED) 2023-08-15 13:08:00 Ximena Fields [facility] TROPONIN I 2023-08-15 10:41:00 Juventino [facility] BASIC METABOLIC PANEL (NA, K, CL, CO2, GLUCOSE, BUN, CREATININE, CA) 2023-08-15 10:41:00 Shanice [facility] CBC WITH DIFF 2023-08-15 10:41:00 Juventino [facility] PROSTATIC SPECIFIC ANTIGEN 2023-08-15 05:32:[address] [facility] 2023-08-15 05:32:00 [facility]ATED) 2023-08-15 04:03:00 Ximena Fields [facility] URINALYSIS 2023 22:15:00 Umang Botello [facility] XR CHEST 1 VW 2023 21:46:00 Umang Botello [facility] CT ABDOMEN PELVIS W CONTRAST 2023 21:34:55 Rosmery [facility] CT TRAUMA HEAD WO CONTRAST 2023 21:33:20 Rosmery [facility] HB ECG ROUTINE & RHYTHM STRIP 2023 21:10:12 Rosmery [facility] PHOSPHORUS 2023 20:47:00 Rosmery [facility] CREATINE KINASE 2023 20:47:00 [facility] LIP[facility] 2023 20:47:00 Rosmery [facility] MAGNESIUM 2023 20:47:00 Rosmery [facility] BETA HYDROXY-BUTYRATE 2023 20:47:00 Farida Botello [facility] TROPONIN I 2023 20:47:00 [facility] COMP. METABOLIC PANEL (71880) 2023 20:47:00 Rosmery [facility] CBC WITH DIFF 2023 20:47:00 Umang Botello [facility] GLYCOSYLATED HEMOGLOBIN (A1C) 2023 20:47:00 Jerry Fields [facility] N-TERMINAL PRO-BNP 2023 20:47:00 Michael Botello [facility] ACUTE CARE VENOUS BLOOD GAS 2023 20:46:00 Rosmery [facility] LACTIC ACID WHOLE BLOOD 2023 20:46:00 Kian Botello [facility] POCT GLUCOSE(AGE >30DAYS) 2023 20:26:00 Rosmery [facility] POCT GLUCOSE (AUTOMATED) 2023 20:23:00 Rosmery [facility] POCT GLUCOSE (AUTOMATED) 2023-04-23 18:09:00 Brien Banda [facility] POCT GLUCOSE (AUTOMATED) 2023-04-23 15:32:00 Brien Banda [facility] MAGNESIUM 2023-04-23 09:09:00 Loghin, Chet Univer [facility] BASIC METABOLIC PANEL (NA, K, CL, CO2, GLUCOSE, BUN, CREATININE, CA) 2023-04-23 09:09:00 Chet Echavarria [facility] POCT GLUCOSE (AUTOMATED) 2023-04-23 02:56:00 Brien Banda [facility] POCT GLUCOSE (AUTOMATED) 2023-04-23 00:32:00 [facility] POCT GLUCOSE (AUTOMATED) 2023-04-22 22:43:00 Solo [facility] POCT GLUCOSE (AUTOMATED) 2023-04-22 20:36:00 [facility] POCT GLUCOSE (AUTOMATED) 2023-04-22 17:44:00 [facility] POCT GLUCOSE (AUTOMATED) 2023-04-22 13:41:00 [facility] MAGNESIUM 2023-04-22 10:37:00 Daja Aaliyah [facility] BASIC METABOLIC PANEL (NA, K, CL, CO2, GLUCOSE, BUN, CREATININE, CA) 2023-04-22 10:37:00 Daja Aaliyah [facility] CBC WITH DIFF 2023-04-22 10:37:00 Daja Aaliyah [facility] POCT GLUCOSE (AUTOMATED) 2023-04-22 03:32:00 [facility] POCT GLUCOSE (AUTOMATED) 2023-04-22 01:34:00 [facility] COMPLETE ECHOCARDIOGRAM DOBUTAMINE STRESS TEST W CONTRAST 2023-04-21 21:15:00 Jeanine Montana [facility] POCT GLUCOSE (AUTOMATED) 2023-04-21 17:36:00 [facility] ACTIVATED PARTIAL THRMPLAS JERMAINE 2023-04-21 16:47:00 Servando Aponte [facility] TRANSTHORACIC ECHO (TTE) COMPLETE W/ CONTRAST 2023-04-21 15:26:00 Kylie Fuchs [facility] TROPONIN I 2023-04-21 12:39:00 Víctor Fuchs Noel [facility] POCT GLUCOSE (AUTOMATED) 2023-04-21 09:39:00 Brien Banda [facility] MAGNESIUM 2023-04-21 09:10:00 Víctor Fuchs Noel [facility] BASIC METABOLIC PANEL (NA, K, CL, CO2, GLUCOSE, BUN, CREATININE, CA) 2023-04-21 09:10:00 Kylie Fuchs Noel [facility] LIPID PANEL (47896)(TOTAL CHOLESTEROL, TRIGLYCERIDES, HDL) 2023-04-21 09:10:00 Kylie Fuchs Noel [facility] CBC WITH DIFF 2023-04-21 09:10:00 Víctor Fuchs [facility] ACTIVATED PARTIAL THRMPLAS JERMAINE 2023-04-21 09:10:00 Servando Aponte [facility] XR CHEST 1 VW 2023-04-21 06:53:47 Víctor Fuchs [place] [facility] TROPONIN I 2023-04-21 06:32:00 Víctor Fuchs [place] Noel [facility] IRON PANEL 2023-04-21 06:32:00 Víctor Fuchs [place] [facility] N-TERMINAL PRO-BNP 2023-04-21 06:32:00 Kylie Fuchs Noel [facility] CRITICAL CARE 2023-04-21 02:54:15 Servando Aponte [facility] PROTHROMBIN TIME / INR 2023-04-21 02:44:00 Enrique Aponte [facility] ACTIVATED PARTIAL THRMPLAS JERMAINE 2023-04-21 02:44:00 Servando Aponte [facility] URINALYSIS 2023-04-21 02:33:00 Servando Aponte [facility] PROTEIN CREAT RATIO URINE RANDOM 2023-04-21 02:33:00 Tavia Fuchsmad Noel [facility] URINE DRUG (IMMUNOASSAY) - COMPREHENSIVE DRUG SCREEN W/O REFLEX 2023-04-21 02:33:00 Servando Aponte [facility] PHOSPHORUS 2023-04-21 01:55:00 Víctor Fuchs Noel [facility] FERRITIN SERUM 2023-04-21 01:55:00 Víctor Fuchs Noel [facility] TROPONIN I 2023-04-21 01:55:00 Servando Aponte [facility] THYROID STIMULATING HORMONE 2023-04-21 01:55:00 Kylie Fuchs Noel [facility] COMP. METABOLIC PANEL (92473) 2023-04-21 01:55:00 Servando Aponte [facility] ETHANOL 2023-04-21 01:55:00 Servando Aponte [facility] CBC WITH DIFF 2023-04-21 01:55:00 Servando Aponte [facility] GLYCOSYLATED HEMOGLOBIN (A1C) 2023-04-21 01:55:00 Kylie Fuchs [facility] POCT GLUCOSE (AUTOMATED) 2023-04-21 01:54:00 Ximena Aponte [facility] EKG-12 LEAD 2023-04-21 01:51:41 [facility] Start Date/Time End Date/Time Encounter Type Admission Type Attending Clinicians Care Facility Care Department Encounter ID Source 2023-08-21 19:47:00 2023-08-24 16:32:00 Hospital Encounter Gaudencio Cardona [facility] 1..840.114 350.1.13.10 4.2.7.2.686 [id number] [facility] 2023-08-20 00:00:00 2023-08-20 00:00:00 Patient Outreach Rosalie Irizarry [id number] 350.1.13.10 4.2.7.2.686 [id number] [facility] 2023-08-17 00:00:00 2023-08-17 00:00:00 Telephone Ricky Rivera [facility] 1.2840.114 350.1.13.10 4.2.7.2.686 [id number] [facility] 2023 14:42:00 2023-08-16 18:40:00 Hospital Encounter Umang Botello [place], Jelani [facility] [id number] 350.1.13.10 4.2.7.2.686 [id number] [facility] 2023-04-27 00:00:00 2023-04-27 00:00:00 Transition of Care Jeannette Dawn JANIS BAEZ 1.2840.114 350.1.13.10 4.2.7.2.686 [id number] [facility] 2023-04-20 19:48:00 2023-04-23 19:54:00 Inpatient X PARVEZ MONROE [facility] CATRINA [id number] [facility] 2023-04-20 19:48:00 2023-04-23 19:54:00 Hospital Encounter Servando Aponte Rizwan Dacso, Matthew M [facility] [id number] 350.1.13.10 4.2.7.2.686 [id number] [facility] Results Test Description Test Time Test Comments Results Result Co mments Source [facility]2023-08-24 12:35:27* Test Item Value Reference Range Interpretation Comme nts POCT GLU (test code = 4055553614) 204 mg/dL 70-110 H Lab Interpretation (test cod e = 52459-5) [facility] (NA, K, CL, CO2, GLUCOSE, BUN, CREATININE, CA)2023-08-24 09:45:39* Test Item Value Reference Range Interpretation Comme nts NA (test code = 9150448319) 133 mmol/L 135-145 L K (test code = 4145310339) 3.7 mmol/L 3.5-5.0 CL (test code = 4637429292) 98 mmol/L 98-108 CO2 TOTAL (test code = 6799405487) 27 mmol/L 23-31 AGAP (test code = 5390096638) 8 2-16 BUN (test code = 6166256508) 13 mg/dL 7-23 GLUCOSE (test code = 1779006641) 188 mg/dL 70-110 H CREATININE (test code = 2160-0) 0.63 mg/dL 0.60-1.25 CALCIUM (test code = 0450581384) 9.4 mg/dL 8.6-10.6 eGFR (test code = 43921-5) 111.6 mL/min/1.73m2 CKD-EPI eGFR (2020). Assuming creatinine has been stable day-to-day for at least three months, the eGFR indicates Category G1 (>= 90 mL/min/1.73 m2) Lab Interpretation (test code = 01178-5) Abnormal [facility] with [id number] 09:21:26* Test Item Value Reference Range Interpretation [...] g/dL 31.2-35.0 H RDW-SD (test code = 27917-7) 36.9 fL 38.5-51.6 L RDW-CV (test code = 788-0) 11.6 % 12.1-15.4 L PLT (test code = 777-3) 407 150-328 H MPV (test code = 94235-2) 9.5 fL 9.8-13.0 L NRBC/100 WBC (test code = 3746944307) 0.0 0.0-10.0 NRBC x10^3 (test code = 8267268969) See_Comment [Automated messa ge] The system which generated this result transmitted reference range: 10*3/?L. The reference range was not used to interpret this result as normal/abnormal. GRAN MAT (NEUT) % (test code = 770-8) 63.1 % IMM GRAN % (test code = 8492300591) 0.30 % LYMPH % (test code = 736-9) 21.1 % MONO % (test code = 5905-5) 8.3 % EOS % (test code = 713-8) 6.5 % BASO % (test code = 706-2) 0.7 % GRAN MAT x10^3(ANC) (test code = 8084751347) 3.71 10*3/uL 1.99-6.95 IMM GRAN x10^3 (test code = 6957882928) 0.00-0.06 LYMPH x10^3 (test code = 731-0) 1.24 10*3/uL 1.09-3.23 MONO x10^3 (test code = 742-7) 0.49 10*3/uL 0.36-1.02 EOS x10^3 (test code = 711-2) 0.38 10*3/uL 0.06-0.53 BASO x10^3 (test code = 704-7) 0.04 10*3/uL 0.01-0.09 Lab Interpretation (test code = 43157-9) Abnormal [facility]2023-08-24 05:47:46* Test Item Value Reference Range Interpretation Comme nts POCT GLU (test code = 8627967746) 126 mg/dL 70-110 H Lab Interpretation (test cod e = 51540-2) Abnormal [facility] Metabolic Panel (NA, K, CL, CO2, GLUCOSE, BUN, CREATININE, CA)2023-08-24 02:27:27* Test Item Value Reference Range Interpretation Comme nts NA (test code = 4750734766) 129 mmol/L 135-145 L K (test code = 1547595860) 3.9 mmol/L 3.5-5.0 CL (test code = 5519162099) 96 mmol/L 98-108 L CO2 TOTAL (test code = 6291761569) 29 mmol/L 23-31 AGAP (test code = 8331388146) 4 2-16 BUN (test code = 8179851256) 14 mg/dL 7-23 GLUCOSE (test code = 9635134535) 185 mg/dL 70-110 H CREATININE (test code = 2160-0) 0.56 mg/dL 0.60-1.25 L CALCIUM (test code = 3631170529) 9.2 mg/dL 8.6-10.6 eGFR (test code = 03453-7) 115.7 mL/min/1.73m2 CKD-EPI eGFR (2020). Assuming creatinine has been stable day-to-day for at least three months, the eGFR indicates Category G1 (>= 90 mL/min/1.73 m2) Lab Interpretation (test code = 25267-2) Abnormal [facility] GLUCOSE (AUTOMATED)2023-08-24 01:28:28* Test Item Value Reference Range Interpretation Comme nts POCT GLU (test code = 0308624744) 210 mg/dL 70-110 H Lab Interpretation (test cod e = 88682-1) Abnormal [facility] GLUCOSE (AUTOMATED)2023-08-23 21:30:04* Test Item Value Reference Range Interpretation Comme nts POCT GLU (test code = 7571832351) 149 mg/dL 70-110 H Lab Interpretation (test cod e = 99072-3) Abnormal [facility] GLUCOSE (AUTOMATED)2023-08-23 16:45:20* Test Item Value Reference Range Interpretation Comme nts POCT GLU (test code = 6149528197) 147 mg/dL 70-110 H Lab Interpretation (test cod e = 14017-3) Abnormal [facility] GLUCOSE (AUTOMATED)2023-08-23 12:36:56* Test Item Value Reference Range Interpretation Comme nts POCT GLU (test code = 3824700978) 131 mg/dL 70-110 H Lab Interpretation (test cod e = 47670-0) Abnormal [facility] GLUCOSE (AUTOMATED)2023-08-23 09:17:23* Test Item Value Reference Range Interpretation Comme nts POCT GLU (test code = 2680465653) 154 mg/dL 70-110 H Lab Interpretation (test cod e = 77653-7) Abnormal [facility] GLUCOSE (AUTOMATED)2023-08-23 05:03:01* Test Item Value Reference Range Interpretation Comme nts POCT GLU (test code = 9801852650) 183 mg/dL 70-110 H Lab Interpretation (test cod e = 50934-8) Abnormal [facility] Metabolic Panel (NA, K, CL, CO2, GLUCOSE, BUN, CREATININE, CA)2023-08-23 01:49:58* Test Item Value Reference Range Interpretation Comme nts NA (test code = 9930573130) 132 mmol/L 135-145 L K (test code = 9976048327) 4.1 mmol/L 3.5-5.0 CL (test code = 0635280260) 101 mmol/L 98-108 CO2 TOTAL (test code = 4555281276) 28 mmol/L 23-31 AGAP (test code = 7219121557) 3 2-16 BUN (test code = 8045943911) 17 mg/dL 7-23 GLUCOSE (test code = 7823843808) 149 mg/dL 70-110 H CREATININE (test code = 2160-0) 0.97 mg/dL 0.60-1.25 CALCIUM (test code = 5027886020) 8.4 mg/dL 8.6-10.6 L eGFR (test code = 22592-4) 91.6 mL/min/1.73m2 CKD-EPI eGFR (2020). Assuming creatinine has been stable day-to-day for at least three months, the eGFR indicates Category G1 (>= 90 mL/min/1.73 m2) Lab Interpretation (test code = 96060-1) Abnormal [facility] GLUCOSE (AUTOMATED)2023-08-23 00:43:06* Test Item Value Reference Range Interpretation Comme nts POCT GLU (test code = 7286482085) 126 mg/dL 70-110 H Lab Interpretation (test cod e = 50566-2) Abnormal [facility] [id number] 22:59:03* Test Item Value Reference Range Interpretation Comme nts IBRAHIMA AM (test code = 8816807375) 24.7 ug/dL 4.5-23.0 H GINA (test code = GINA) Biotin has been reported to cause a positive bias, interpret results relative to patient's use of biotin. Lab Interpretation (test code = 93546-3) Abnormal [facility]2023-08-22 21:29:10* Test Item Value Reference Range Interpretation Comme [facility] POCT GLU (test code = 3712453338) 341 mg/dL 70-110 H Lab Interpretation (test cod e = 84102-9) Abnormal [facility] [id number] 19:53:59* Test Item Value Reference Range Interpretation Comme [facility] URIC ACID (test code = 1223924988) 6.4 mg/dL 3.6-8.0 Lab Interpretation (test cod e = 02581-7) Normal [facility] Metabolic Panel (NA, K, CL, CO2, GLUCOSE, BUN, CREATININE, CA)2023-08-22 14:43:15* Test Item Value Reference Range Interpretation Comme nts NA (test code = 8454012425) 138 mmol/L 135-145 K (test code = 3253036176) 4.6 mmol/L 3.5-5.0 CL (test code = 0356240816) 102 mmol/L 98-108 CO2 TOTAL (test code = 6715202906) 28 mmol/L 23-31 AGAP (test code = 4698068267) 8 2-16 BUN (test code = 1750428396) 34 mg/dL 7-23 H GLUCOSE (test code = 9737469526) 224 mg/dL 70-110 H CREATININE (test code = 2160-0) 1.89 mg/dL 0.60-1.25 H CALCIUM (test code = 5774273525) 9.4 mg/dL 8.6-10.6 eGFR (test code = 18443-3) 41.1 mL/min/1.73m2 CKD-EPI eGFR (2020). Assuming creatinine has been stable day-to-day for at least three months, the eGFR indicates Category G3b (30 - 44 mL/min/1.73 m2) Lab Interpretation (test code = 14689-9) Abnormal [facility] [id number] 14:42:45* Test Item Value Reference Range Interpretation Comme nts CK (test code = 0291655594) 224 U/L 33-194 H Lab Interpretation (test cod e = 77746-4) Abnormal [facility]osph[facility] [id number] 12:10:01* Test Item Value Reference Range Interpretation Comme nts PHOSPHORUS (test code = 9592296052) 5.8 mg/dL 2.5-5.0 H Lab Interpretation (test cod e = 17286-1) Abnormal [facility] Met[facility] (NA, K, CL, CO2, GLUCOSE, BUN, CREATININE, CA)2023-08-22 04:41:19* Test Item Value Reference Range Interpretation Comme nts NA (test code = 7028923413) 124 mmol/L 135-145 L K (test code = 8275134507) 4.7 mmol/L 3.5-5.0 CL (test code = 3393619547) 93 mmol/L 98-108 L CO2 TOTAL (test code = 1325347576) 18 mmol/L 23-31 L AGAP (test code = 9039404636) 13 2-16 BUN (test code = 4195966518) 68 mg/dL 7-23 H GLUCOSE (test code = 5216225257) 116 mg/dL 70-110 H CREATININE (test code = 2160-0) 6.60 mg/dL 0.60-1.25 H CALCIUM (test code = 8766939542) 9.0 mg/dL 8.6-10.6 eGFR (test code = 47914-0) 9.2 mL/min/1.73m2 CKD-EPI eGFR (2020). Assuming creatinine has been stable day-to-day for at least three months, the eGFR indicates Category G5 (<= 14mL/min/1.73 m2) Lab Interpretation (test code = 62308-5) Abnormal [facility] ABDOMEN PELVIS WO [id number] 02:22:05Exam: CT Abdomen and Pelvis without Contrast, 08/21/2023 8:00 PM. Ordering Physician: GAUDENCIO CARDONA. History: Bowel obstruction suspected Stone suspected. [...] rib fractures.Soft tissues: Unremarkable.[facility]. Metabolic Panel (53225) 2023-08-22 02:21:33* Test Item Value Reference Range Interpretation Comme nts NA (test code = 4698878692) 120 mmol/L 135-145 L K (test code = 4159634913) 4.8 mmol/L 3.5-5.0 CL (test code = 1863766214) 85 mmol/L 98-108 L CO2 TOTAL (test code = 8824992811) 21 mmol/L 23-31 L AGAP (test code = 0830926388) 14 2-16 BUN (test code = 4933039981) 70 mg/dL 7-23 H GLUCOSE (test code = 6275024939) 97 mg/dL 70-110 CREATININE (test code = 2160-0) 8.39 mg/dL 0.60-1.25 H TOTAL BILI (test code = 7245899638) 0.7 mg/dL 0.1-1.1 CALCIUM (test code = 1500115441) 8.8 mg/dL 8.6-10.6 T PROTEIN (test code = 9539023583) 7.2 g/dL 6.3-8.2 ALBUMIN (test code = 9480143128) 4.1 g/dL 3.5-5.0 ALK PHOS (test code = 0935826444) 95 U/L 34-122 ALTv (test code = 1742-6) 12 U/L 5-50 AST(SGOT) (test code = 6696727824) 24 U/L 13-40 eGFR (test code = 27537-5) 6.9 mL/min/1.73m2 CKD-EPI eGFR (2020). Assuming creatinine has been stable day-to-day for at least three months, the eGFR indicates Category G5 (<= 14mL/min/1.73 m2) Lab Interpretation (test code = 68296-2) [facility]:32* Test Item Value Reference Range Interpretation Comme nts LIPASE (test code = 4307785114) 758 U/L 0-220 H Lab Interpretation (test cod e = 62381-7) Abnormal [facility] [id number] 01:58:31* Test Item Value Reference Range Interpretation [...] g/dL 31.2-35.0 H RDW-SD (test code = 27980-5) 36.0 fL 38.5-51.6 L RDW-CV (test code = 788-0) 11.5 % 12.1-15.4 L PLT (test code = 777-3) 312 150-328 MPV (test code = 27653-6) 9.4 fL 9.8-13.0 L NRBC/100 WBC (test code = 3378909867) 0.0 0.0-10.0 NRBC x10^3 (test code = 6168891098) See_Comment [Automated message] The system which generated this result transmitted reference range: 10*3/?L. The reference range was not used to interpret this result as normal/abnormal. GRAN MAT (NEUT) % (test code = 770-8) 82.7 % IMM GRAN % (test code = 2712790391) 0.50 % LYMPH % (test code = 736-9) 6.7 % MONO % (test code = 5905-5) 9.8 % EOS % (test code = 713-8) 0.2 % BASO % (test code = 706-2) 0.1 % GRAN MAT x10^3(ANC) (test code = 0079007638) 12.19 10*3/uL 1.99-6.95 H IMM GRAN x10^3 (test code = 4977041464) 0.08 10*3/uL 0.00-0.06 H LYMPH x10^3 (test code = 731-0) 0.99 10*3/uL 1.09-3.23 L MONO x10^3 (test code = 742-7) 1.44 10*3/uL 0.36-1.02 H EOS x10^3 (test code = 711-2) 0.03 10*3/uL 0.06-0.53 L BASO x10^3 (test code = 704-7) 0.01-0.09 Lab Interpretation (test code = 06716-5) Abnormal [facility] GLUCOSE (AUTOMATED)2023-08-16 22:02:57* Test Item Value Reference Range Interpretation Comme nts POCT GLU (test code = 6535425564) 112 mg/dL 70-110 H Lab Interpretation (test cod e = 78182-2) Abnormal [facility] GLUCOSE (AUTOMATED)2023-08-16 16:59:58* Test Item Value Reference Range Interpretation Comme nts POCT GLU (test code = 5650138681) 127 mg/dL 70-110 H Lab Interpretation (test cod e = 16051-1) Abnormal [facility] GLUCOSE (AUTOMATED)2023-08-16 12:48:23* Test Item Value Reference Range Interpretation Comme nts POCT GLU (test code = 2497908093) 175 mg/dL 70-110 H Lab Interpretation (test cod e = 16608-8) Abnormal [facility] GLUCOSE (AUTOMATED)2023-08-16 02:07:02* Test Item Value Reference Range Interpretation Comme nts POCT GLU (test code = 1293209901) 195 mg/dL 70-110 H Notified Provide r Lab Interpretation (test code = 45660-5) Abnormal [facility] GLUCOSE (AUTOMATED)2023-08-15 21:36:15* Test Item Value Reference Range Interpretation Comme nts POCT GLU (test code = 4147289528) 284 mg/dL 70-110 H Lab Interpretation (test cod e = 27140-0) Abnormal [facility] GLUCOSE (AUTOMATED)2023-08-15 16:56:02* Test Item Value Reference Range Interpretation Comme nts POCT GLU (test code = 5189290429) 74 mg/dL 70-110 Lab Interpretation (test cod e = 75269-0) Normal [facility] GLUCOSE (AUTOMATED)2023-08-15 13:12:34* Test Item Value Reference Range Interpretation Comme nts POCT GLU (test code = 2033523160) 258 mg/dL 70-110 H Lab Interpretation (test cod e = 52078-2) Abnormal [facility] GLUCOSE (AUTOMATED)2023-08-15 04:04:43* Test Item Value Reference Range Interpretation Comme nts POCT GLU (test code = 6906290956) 120 mg/dL 70-110 H Lab Interpretation (test cod e = 82656-7) [facility]normal [facility]isco[facility]cosylated Hemoglobin (A1C)2023-08-15 01:17:32* Test Item Value Reference Range Interpretation Comme nts HGB A1C (test code = 4548-4) 8.9 % 4.0-5.7 H GINA (test code = GINA) Reference RangesNormal: <5.7%Prediabetes: 5.7 - 6.4%Diabetes: > 6.5% Lab Interpretation (test code = 37560-4) Abnormal [facility] FriscoBeta Rrwfjdb-Nrrfwucm4287-07-21 01:00:45* Test Item Value Reference Range Interpretation Comme nts BOH (test code = 6486495951) 0.5 mmol/L GINA (test code = GINA) Normal Ranges: ? ? Nonfasting ? Less than 0.1 mmol/L ? ? Overnight Fast ? ? ? Less than 0.4 mmol/L ? ? Fasting (1-2 weeks) ?6-8 mmol/L Test developed and characteristics determined by [facility] Laboratory Services. [facility] FriscoCreatine Qezqcn2393-98-39 23:07:16* Test Item Value Reference Range Interpretation Comme nts CK (test code = 0501809811) 148 U/L 33-194 Lab Interpretation (test cod e = 87166-0) Normal [facility] FriscoTROPONIN [id number] 22:18:16* Test Item Value Reference Range Interpretation Comme nts TROPONIN I (test code = 9416759556) 0.081 ng/mL <=0.034 H GINA (test code [...] of biotin. Lab Interpretation (test code = 77208-2) Abnormal [facility] FriscoN-TERMINAL ICL-[id number] 22:15:55* Test Item Value Reference Range Interpretation Comme [facility] NT-proBNP (test code = 54296-6) 999 pg/mL <=125 H GINA (test code = GINA) Positive: Heart Failure Likely Lab Interpretation (test code = 59518-2) Abnormal [facility] FriscoMagnesium2024-04-20 22:07:17* Test Item Value Reference Range Interpretation Comme nts MAGNESIUM (test code = 3755607821) 1.8 mg/dL 1.7-2.4 Lab Interpretation (test cod e = 69661-6) Normal [facility] FriscoCOMP. METABOLIC PANEL (82862)2023 22:06:57* Test Item Value Reference Range Interpretation Comme nts NA (test code = 8357088197) 130 mmol/L 135-145 L K (test code = 1756516541) 3.4 mmol/L 3.5-5.0 L CL (test code = 8680415486) 93 mmol/L 98-108 L CO2 TOTAL (test code = 7252103633) 26 mmol/L 23-31 AGAP (test code = 6621647454) 11 2-16 BUN (test code = 9726173472) 39 mg/dL 7-23 H GLUCOSE (test code = 6949302147) 142 mg/dL 70-110 H CREATININE (test code = 2160-0) 2.40 mg/dL 0.60-1.25 H TOTAL BILI (test code = 5279115034) 1.2 mg/dL 0.1-1.1 H CALCIUM (test code = 8040597233) 9.1 mg/dL 8.6-10.6 T PROTEIN (test code = 4920366358) 7.7 g/dL 6.3-8.2 ALBUMIN (test code = 0617611592) 4.2 g/dL 3.5-5.0 ALK PHOS (test code = 6730527105) 102 U/L 34-122 ALTv (test code = 1742-6) 16 U/L 5-50 AST(SGOT) (test code = 9290086534) 26 U/L 13-40 eGFR (test code = 62811-8) 30.9 mL/min/1.73m2 CKD-EPI eGFR (2020). Assuming creatinine has been stable day-to-day for at least three months, the eGFR indicates Category G3b (30 - 44 mL/min/1.73 m2) Lab Interpretation (test code = 79608-3) Abnormal [facility] FriscoPhosphorus2024-04-20 22:06:37* Test Item Value Reference Range Interpretation Comme nts PHOSPHORUS (test code = 6007561480) 4.9 mg/dL 2.5-5.0 Lab Interpretation (test cod e = 71256-8) Normal [facility] FriscoLIPASE2024-04-20 22:06:17* Test Item Value Reference Range Interpretation Comme nts LIPASE (test code = 4474838648) 204 U/L 0-220 Lab Interpretation (test cod e = 14332-4) Normal [facility] WITH [id number] 21:54:56* Test Item Value Reference Range Interpretation [...] g/dL 31.2-35.0 H RDW-SD (test code = 34295-0) 38.1 fL 38.5-51.6 L RDW-CV (test code = 788-0) 11.8 % 12.1-15.4 L PLT (test code = 777-3) 235 150-328 MPV (test code = 12362-6) 11.1 fL 9.8-13.0 NRBC/100 WBC (test code = 0796059414) 0.0 0.0-10.0 NRBC x10^3 (test code = 5126323977) See_Comment [Automated message] The system which generated this result transmitted reference range: 10*3/?L. The reference range was not used to interpret this result as normal/abnormal. GRAN MAT (NEUT) % (test code = 770-8) 80.3 % IMM GRAN % (test code = 1324678861) 0.60 % LYMPH % (test code = 736-9) 8.7 % MONO % (test code = 5905-5) 10.0 % EOS % (test code = 713-8) 0.2 % BASO % (test code = 706-2) 0.2 % GRAN MAT x10^3(ANC) (test code = 2114689097) 10.18 10*3/uL 1.99-6.95 H IMM GRAN x10^3 (test code = 8227917966) 0.07 10*3/uL 0.00-0.06 H LYMPH x10^3 (test code = 731-0) 1.11 10*3/uL 1.09-3.23 MONO x10^3 (test code = 742-7) 1.27 10*3/uL 0.36-1.02 H EOS x10^3 (test code = 711-2) 0.03 10*3/uL 0.06-0.53 L BASO x10^3 (test code = 704-7) 0.03 10*3/uL 0.01-0.09 Lab Interpretation (test code = 48620-8) Abnormal [facility] FriscoXR CHEST 1 [id number] 21:49:58EXAM: XR CHEST 1 2023 4:38 PM HISTORY: 58 years-old Male with r/o infilrate . TECHNIQUE: Portable AP view of the chest. COMPARISON: 04/21/2023 FINDINGS: Lines and tubes: None. Cardiomediastinal: The cardiomediastinal silhouette is unremarkable. Lungs and pleura: The lungs are clear. No focal consolidation,pneumothorax, or pleural effusion is seen. Included osseous structures show no acuteabnormality.[facility] FriscoCT ABDOMEN PELVIS W [id number] 21:45:03EXAM: CT ABDOMEN AND PELVIS WITH CONTRAST [...] change involving the spine, sacroiliac jointsand hips ispresent.[facility] FriscoCT TRAUMA HEAD WO [id number] 21:38:37FULL RESULT: Examination: CT TRAUMA HEAD WO CONTRAST on 2023 4:16 PM Clinical Indication: Headache, hypertensive Comparison: None Technique: Noncontrast imaging was obtained from base to vertex.Findings: The sulci and ventricles were unremarkable. There may be subtlewhite matter microvascularischemic changes, notably in the anteriorperiventricular region, but there is no evidence for hemorrhage or otherclearly acute intracranial process.[facility] FriscoLaalic Acid Whole Kzqtk8931-71-22 21:30:25* Test Item Value Reference Range Interpretation Comme [facility] LACTIC ACID (test code = 8802828676) 1.58 mmol/L 0.50-2.20 Lab Interpretation (test cod e = 72368-4) Normal [facility] Venous Blood [id number] 21:30:25 * Test Item Value Reference Range Interpretation Comme nts PH (test code = 6296664663) 7.34 7.32-7.42 PCO2 NOY (test code = 0319065174) 45 41-51 PO2 NOY (test code = 9168443592) 24 25-40 L HCO3 NOY (test code = 3041520750) 24 24-28 AC VBE(BEAKER) (test code = 9532291055) -1.9 mEq/L Lab Interpretation (test cod e = 71777-5) Abnormal [facility] GLUCOSE (AUTOMATED)2023 20:26:17* Test Item Value Reference Range Interpretation Comme nts POCT GLU (test code = 8276319100) 165 mg/dL 70-110 H Lab Interpretation (test cod e = 72554-8) Abnormal [facility] GLUCOSE(AGE >30DAYS)2023 20:26:00* Test Item Value Reference Range Interpretation Comme nts POCT Glu (age>30days) (test code = 3342) 165 mg/dL 70-110 A Lab Interpretation (test cod e = 58540-3) [facility] 18:15:28* Test Item Value Reference Range Interpretation Comme nts POCT GLU (test code = 4080448166) 218 mg/dL 70-110 H Lab Interpretation (test cod e = 87914-0) [facility]23-[facility]23 15:35:23* Test Item Value Reference Range Interpretation Comme nts POCT GLU (test code = 2720884621) 186 mg/dL 70-110 H Lab Interpretation (test cod e = 94557-7) [facility]23 02:57:57* Test Item Value Reference Range Interpretation Comme nts POCT GLU (test code = 5217469507) 82 mg/dL 70-110 Lab Interpretation (test cod e = 51692-0) Normal [facility] GLUCOSE (AUTOMATED)2023-04-23 00:33:51* Test Item Value Reference Range Interpretation Comme nts POCT GLU (test code = 6128696623) 181 mg/dL 70-110 H Lab Interpretation (test cod e = 68952-7) [facility]23-[facility]-22 22:54:22* Test Item Value Reference Range Interpretation Comme nts POCT GLU (test code = 9521169880) 127 mg/dL 70-110 H Lab Interpretation (test cod e = 04451-4) [facility]23-[facility]-22 20:37:54* Test Item Value Reference Range Interpretation Comme nts POCT GLU (test code = 2038631330) 230 mg/dL 70-110 H Lab Interpretation (test cod e = 00673-7) [facility]23-04-22 17:46:23* Test Item Value Reference Range Interpretation Comme nts POCT GLU (test code = 7027470382) 144 mg/dL 70-110 H Lab Interpretation (test cod e = 88289-9) [facility]23-[facility]-22 13:42:26* Test Item Value Reference Range Interpretation Comme nts POCT GLU (test code = 1617484446) 229 mg/dL 70-110 H Lab Interpretation (test cod e = 40925-1) Abnormal [facility] GLUCOSE (AUTOMATED)2023-04-22 03:33:49* Test Item Value Reference Range Interpretation Lianet garcía POCT GLU (test code = 8146546244) 222 mg/dL 70-110 H Lab Interpretation (test cod e = 52968-1) Abnormal [facility] GLUCOSE (AUTOMATED)2023-04-22 01:36:03* Test Item Value Reference Range Interpretation Lianet garcía POCT GLU (test code = 8810152007) 282 mg/dL 70-110 H Lab Interpretation (test cod e = 45919-3) Abnormal [facility] FriscoEchocardiogram dobutamine stress test 2023-04-21 22:26:30* Test Item Value Reference Range Interpretation Lianet garcía Height (test code = 7343636501) 63 in Weight (test code = 5132140741) 130 lbs Systolic BP (test code = 2653459055) 122 mmHg Diastolic BP (test code = 9270289898) 81 mmHg Heart Rate (test code = 1025237736) 105 bpm BSA (test code = 7973430380) 1.[address] Depresion (mm) (test code = 6659350768) [address] Depression (mm) (test code = 0712437703) 0 mm Radiology Study observation (narrative) (test code = 06790-6) GINA (test code = GINA) Table formatting [...] wall motion is globally hyperkinetic. [facility]iscoTransthoracic echo (TTE)2023-04-21 18:05:03* Test Item Value Reference Range Interpretation Comme nts Height (test code = 6949205721) 63 in Weight (test code = 8127606505) 130 lbs Systolic BP (test code = 1100590225) 114 mmHg Diastolic BP (test code = 8852833020) 75 mmHg Heart Rate (test code = 1070103013) 98 bpm BSA (test code = 0417135369) 1.61 m2 LVIDD (test code = 6895155451) 4.00 cm Left Ventricular End Diastolic Volume by Teichholz Method (test code = 8543451) 70.0 mL IVS (test code = 3556178956) 1.07 cm Interventricular Septum Diastolic Thickness by 2D (test code = 2527523) 1.07 cm LVPWD (test code = 1638068694) 1.05 cm PW (test code = 2462603942) 1.05 cm 0.6-1.1 EF(Teich) (test code = 1425617704) 62.60 % LVIDS (test code = 3011985883) 2.70 cm Left Ventricular End Systolic Volume by Teichholz Method (test code = 1635810) 26.2 mL FS (test code = 9811868636) 33 % EF - 2D (test code = 90857628) 62.60 % Ao root diam (test code = 1351094756) 3.70 cm Aortic root (test code = 4413684867) 3.7 cm Ao root annulus (test code = 1514076331) 3.7 cm LA size (test code = 7712024344) 3.2 cm LVOT diameter (test code = 5393475810) 2.08 cm LVOT area (test code = 8583360757) 3.40 cm2 MV Peak E Hakeem (test code = 6253718690) 48.3 cm/s E wave decelartion time (test code = 8416183772) 0.15 s MV Peak A Hakeem (test code = 3775541229) 74.4 cm/s E/A ratio (test code = 0410631032) 0.65 ratio MV Prop V (test code = 4989004750) 21.20 cm/s LAV(MOD-sp4) (test code = 7760779744) 35.30 mL Tapse (test code = 7446178213) 1.73 cm LVOT stroke volume (test code = 8226801996) 45.20 cm3 LVOT peak hakeem (test code = 3554086519) 79.0 cm/s LVOT mn grad (test code = 6866338432) 1.3 mmHg AV LVOT peak gradient (test code = 8547670215) 2.50 mmHg LVOT peak VTI (test code = 7375390613) 13.2 cm LV V1 mean (test code = 0590888926) 52.90 cm/s Ao peak hakeem (test code = 2544081616) 83.8 cm/s AV area peak hakeem (test code = 6473425501) 3.2 cm2 Ao max PG (test code = 7602679514) 2.80 mm[Hg] AV peak gradient (test code = 3439480509) 2.8 mmHg LA Volume Index (BP) (test code = 2389935008) 25.9 mL/m2 LA volume (BP) (test code = 5006973063) 41.8 mL LAV(MOD-sp2) (test code = 7976534440) 40.90 mL A4C EF (test code = 2218937351) 54.40 % EF(sp4-el) (test code = 7915737075) 55.00 % SV(MOD-sp4) (test code = 1387069016) 53.10 mL SV(sp4-el) (test code = 2522899830) 55.60 mL Radiology Study observation (narrative) (test code = 04281-3) GINA (test code = GINA) ?Left?Ventricle: Left [...] enhancing agent used. Patient exhibited sinus rhythm. [facility] GLUCOSE (AUTOMATED)2023-04-21 17:48:26* Test Item Value Reference Range Interpretation Comme nts POCT GLU (test code = 2977839108) 198 mg/dL 70-110 H Lab Interpretation (test cod e = 58630-9) Abnormal [facility]iscoXR CHEST 1 [id number] 15:12:07EXAM: XR CHEST 1 VW HISTORY: NSTEMI COMPARISON: None. FINDINGS: Small bandlike densities in the left midlung have more the appearance ofatelectasis than pneumonia. The lungs are well expanded and clearotherwise. The heart and great vessels are normal except for calcium in thearch of the aorta.[facility] GLUCOSE (AUTOMATED)2023-04-21 09:39:57* Test Item Value Reference Range Interpretation Comme nts POCT GLU (test code = 8814462178) 243 mg/dL 70-110 H Lab Interpretation (test cod e = 27812-3) Abnormal [facility] FriscoFerritin Foxve9814-72-60 07:28:27* Test Item Value Reference Range Interpretation Comme nts FERRITIN (test code = 7827207038) 76.3 ng/mL 18.0-464.0 GINA (test code = GINA) Biotin has been reported to cause a negative bias, interpret results relative to patient's use of biotin. Lab Interpretation (test code = 54156-5) Normal [facility] FriscoGlycosylated Hemoglobin (A1C)2023-04-21 07:25:47* Test Item Value Reference Range Interpretation Comme nts HGB A1C (test code = 4548-4) 12.6 % 4.0-5.7 H GINA (test code = GINA) Reference RangesNormal: <5.7%Prediabetes: 5.7 - 6.4%Diabetes: > 6.5% Lab Interpretation (test code = 90509-4) Abnormal [facility] FriscoThyroid Stimulating Mqzgpev3908-23-24 07:24:07 * Test Item Value Reference Range Interpretation Comme nts TSH (test code = 9168960628) 2.56 See_Comment [Automated messa ge] The system which generated this result transmitted reference range: 0.45 - 4.70 mIU/L. The reference range was not used to interpret this result as normal/abnormal. Lab Interpretation (test code = 79016-7) Normal [facility] FriscoPhosphorus2023-12-27 06:52:06* Test Item Value Reference Range Interpretation Comme nts PHOSPHORUS (test code = 5658557401) 3.2 mg/dL 2.5-5.0 Lab Interpretation (test cod e = 45694-2) Normal [facility] FriscoCritical Oimc7190-83-75 02:54:15NServando chin MD ? ? 04/20/2023 ?8:54 PMCritical Care Performed by: Servando Aponte MDAuthorized by: Servando Aponte MD ?Critical care provider statement: ?Critical [...] procedures and treating other patients. [facility] FriscoTrskyline medical center-mad[facility] campusdian [id number] 02:30:18* Test Item Value Reference Range Interpretation Comme nts TROPONIN I (test code = 6038091691) 0.154 ng/mL <=0.034 H GINA (test code [...] of biotin. Lab Interpretation (test code = 58159-7) Abnormal [facility] FriscoETHANOL2023-12-27 02:24:46 ALCOHOL<10mg/dL04/20/2023 8:24 PM [facility]<10 Zvpcmcll37-521 Toxic>100 Depression of ART HISTORIAN>400 Fatalities ReportedUnChildren's Medical Center PlanoCOMP. METABOLIC PANEL (45172)2023-04-21 02:19:15* Test Item Value Reference Range Interpretation Comme nts NA (test code = 5683884953) 129 mmol/L 135-145 L K (test code = 4072793930) 3.5 mmol/L 3.5-5.0 CL (test code = 5485253335) 94 mmol/L 98-108 L CO2 TOTAL (test code = 5953942486) 28 mmol/L 23-31 AGAP (test code = 1136974121) 7 2-16 BUN (test code = 7076010960) 26 mg/dL 7-23 H GLUCOSE (test code = 3731967845) 314 mg/dL 70-110 H CREATININE (test code = 1213566049) 0.92 mg/dL 0.60-1.25 TOTAL BILI (test code = 2226946836) 0.8 mg/dL 0.1-1.1 CALCIUM (test code = 1143255695) 8.5 mg/dL 8.6-10.6 L T PROTEIN (test code = 5794187581) 6.0 g/dL 6.3-8.2 L ALBUMIN (test code = 0567750613) 3.3 g/dL 3.5-5.0 L ALK PHOS (test code = 2415927070) 95 U/L 34-122 ALTv (test code = 1742-6) 23 U/L 5-50 AST(SGOT) (test code = 4010313501) 30 U/L 13-40 eGFR (test code = 53477-1) 98.2 mL/min/1.73m2 CKD-EPI eGFR (2020). Assuming creatinine has been stable day-to-day for at least three months, the eGFR indicates Category G1 (>= 90 mL/min/1.73 m2) Lab Interpretation (test code = 74686-1) Abnormal [facility] WITH [id number] 02:03:54* Test Item Value Reference Range Interpretation [...] g/dL 31.2-35.0 H RDW-SD (test code = 78760-7) 36.2 fL 38.5-51.6 L RDW-CV (test code = 788-0) 11.6 % 12.1-15.4 L PLT (test code = 777-3) 178 See_Comment [Automated Imsysa ge] The system which generated this result transmitted reference range: 150 - 328 10*3/?L. The reference range was not used to interpret this result as normal/abnormal. MPV (test code = 40489-8) 10.9 fL 9.8-13.0 NRBC/100 WBC (test code = 4036112422) 0.0 See_Comment [Automated [employer] ssage] The system which generated this result transmitted reference range: 0.0 - 10.0 /100 WBCs. The reference range was not used to interpret this result as normal/abnormal. NRBC x10^3 (test code = 0097373591) See_Comment [Automated Imsysa ge] The system which generated this result transmitted reference range: 10*3/?L. The reference range was not used to interpret this result as normal/abnormal. GRAN MAT (NEUT) % (test code = 770-8) 81.3 % IMM GRAN % (test code = 5041000514) 0.30 % LYMPH % (test code = 736-9) 10.5 % MONO % (test code = 5905-5) 7.6 % EOS % (test code = 713-8) 0.1 % BASO % (test code = 706-2) 0.2 % GRAN MAT x10^3(ANC) (test code = 6927937206) 9.55 10*3/uL 1.99-6.95 H IMM GRAN x10^3 (test code = 2345020622) 0.04 10*3/uL 0.00-0.06 LYMPH x10^3 (test code = 731-0) 1.23 10*3/uL 1.09-3.23 MONO x10^3 (test code = 742-7) 0.89 10*3/uL 0.36-1.02 EOS x10^3 (test code = 711-2) 0.06-0.53 L BASO x10^3 (test code = 704-7) 0.01-0.09 Lab Interpretation (test code = 48027-3) Abnormal [facility]iscoPOCT GLUCOSE (AUTOMATED)2023-04-21 01:55:51* Test Item Value Reference Range Interpretation Comme [facility] POCT GLU (test code = 6532596770) 408 mg/dL 70-110 H Lab Interpretation (test cod e = 44991-9) Abnormal [facility] FriscoCOMPREHENSIVE METABOLIC [id number] 05:07:51* Test Item Value Reference Range Interpretation Comme [facility] GLUCOSE (test code = 2217) 224 MG/DL 70-99 H BUN (test code = 2208) 22 MG/DL 6-20 H CREATININE (test code = 2214) 0.71 MG/DL 0.80-1.40 L eGFR (2020 CKD-EPI) (test code = 67140) 109 ML/MIN/1.73 >60 CALC BUN/CREAT (test code [...] code = 2219) 24 U/L 5-50 LIPID [id number] 05:07:51* Test Item Value Reference Range Interpretation [...] SPECIMENS. FOR MOREINFORMATION, SEE CLIENT ANNOUNCEMENT AT [email or web address] RISK RATIO LDL/HDL (test code = 2238) 1.72 RATIO <3.55 PSA, [id number] 05:07:10* Test Item Value Reference Range Interpretation Comme nts PSA, TOTAL (test code = 2606) 19.70 NG/ML See_Comment H NOTE: Methodolog y is Ashley Jasmina Electrochemiluminescence Immunoassay traceable to WHO reference standard 96/760. UNLESS OTHERWISE INDICATED, ALL TESTING PERFORMED [facility]ENTERLINKey[facility] [address] [place] [address] JEWELRY TECHNICIAN: DUSTIN COLMENARES M.D. CLIA NUMBER [id number] [place]. [id number] [Automated message] The system which generated this result transmitted reference range: <=4.00. The reference range was not used to interpret this result as normal/abnormal. HEMOGLOBIN [id number] 02:46:58* Test Item Value Reference Range Interpretation Comme nts HEMOGLOBIN A1c (test code = 46695) 11.0 % 4.2-5.6 H [employer] GUIDELINES FOR HGB A1C: [...] OR LABORATORY CONSULTATION. CBC W/AUTO DIFF WITH [id number] 02:32:39* Test Item Value Reference Range Interpretation [...] 0.00-0.10 ABS NUCLEATED RBCS (test code = 59482) 0.00 K/UL 0.00-0.11 Consult Notes Date/Time Note [...] when jensen is moved. COMMUNICATION Primary Language: Citizen Of [place] Able to Verbalize needs: Yes Vision:good; no [...] Minutes: 20 min Jesica Murphy,[place] Tx License: [id number] Required Components in Determining Evaluation Level History: No personal factors or comorbidities: No (27793) 1-2 personal factors and/or comorbidities: Yes (34580) 3 or more personal factors and/ or comorbidities: No (64389) Examination of Body System(s) Addressing 1-2 elements: Yes (58702) Addressing a total of 3 or more elements: No (04452) Addressing a total of 4 or more elements: No (81064) Clinical Presentation Stable: Yes (13413) Evolving: No (91337) Unstable: No (99427) Clinical Decision Making (Complexity) Low: No (75895) Moderate: Yes (62827) High: No (56795) Jesica Murphy PT [facility] 2023-08-15 10:01:34 Associated Order(s): CONSULT CARDIOLOGY [facility] Cardiology Consult Note Patient: Johnnie Shah Date of : 1965 Date of service: 08/15/2023 Primary Care Physician: Erik Louie Jr CHIEF COMPLAINT: Chief Complaint Patient presents with Nausea Hypertension HISTORY OF PRESENT ILLNESS: Johnnie Shah is a 58 year old male [...] of Onset No Significant Medical Problems Mother NE (myocardial infarction) Father SOCIAL HISTORY Social History [...] specified complication Elevated troponins: Likely type II NE in the setting of underlying ELIEZER/elevated blood [...] per primary team. Last Two A1C Results ([facility]/LC, POCT, [facility]) Recent Labs 04/20/23195408/14/23 1547 HGBA1C 12.6* 8.9* My diagnostic impression and treatment plans were discussed at length with the patient. Ample opportunity was offered and encouraged to ask questions during this visit and patient appreciated the answers given by me and verbzalised statisfcation in the answers given. Thank you for allowing us to participate in the care of Johnnie Shah. If you have any questions or concerns please feel free to call our office at [phone]. I would be happy to be of further assistance for Johnnie Shah wellbeing. Voice recognition software has been used to create portions of this document. An attempt to proofread has been made to minimize errors. Please do not hesitate to call with any questions. Benja Rivera MD I O Psychologist, Division of Cardiology [facility] 2023-04-21 08:46:48 Associated Order(s): CONSULT ENDOCRINOLOGY Endocrinology Consult Note Consultation requested by: Service: White team Reason for Consultation: Diabetes Date of Service: 04/21/23 HPI 57 year old male with a PMH of HTN, T2DM, Fmhx premature CAD who presented with complaints of polyuria and weakness at [facility] ER. Patient transferred to [place] for further work up. Endocrinology consulted for diabetes management Diabetes Type and year diagnosed: 2011, type 2 Diabetes complications: none Hx of DM regimen: no meds for 3 years Compliance: - BG monitoring? - Hypoglycemia hx: no Hypoglycemia unawareness? no Symptoms of hyperglycemia: polyuria Living situation and support: homeless, lives with different relatives Diabetes doctor: PCP in [place], has not seen for few years Family hx of diabetes: no HX of glucocorticoid use: no HX of transfusions or EPO in last 6 months: no PAST MEDICAL HISTORY Past Medical History: Diagnosis Date HTN (hypertension) Uncontrolled diabetes mellitus with hyperglycemia History reviewed. No pertinent surgical history. Family History Problem Relation Age of Onset No Significant Medical Problems Mother NE (myocardial infarction) Father Social History Tobacco Use [...] with complaints of polyuria and weakness at [facility] ER. Patient transferred to [place] for further work up. Endocrinology consulted for [...] Cabrera.. Austin Amaro. Endocrinology Fellow, PGY 5 [employer] Associated attestation - Rita Cabrera MD - 04/22/2023 2:11 PM UNIVERSITY CONTROLLER Endocrinology Faculty Attestation: I evaluated this patient's progress on 04/21/[address] Amaro note as written and revised. I actively participated in the decision-making process. Please see the resident's note for additional details that includes pertinent addendums I made directly in the note during revision. Rita Cabrera MD I O Psychologist Division of Endocrinology IM-ENDOCRINOLOGY,DIABET ES & METABOLISM [facility] - Health History and Physical Notes Date/Time Note Provider Source 2023-08-21 22:53:53 [facility] Hospitalist Admission H&P Date of Service: 08/21/2023 CHIEF COMPLAINT: Postobstructive renal failure HISTORY OF PRESENT ILLNESS Johnnie Shah is a 58 year old male [...] consulted. Patient was given the application for [employer] on last admission and will need to [...] of Onset No Significant Medical Problems Mother NE (myocardial infarction) Father SOCIAL HISTORY Social History [...] without Contrast, 08/21/2023 8:00 PM. Ordering Physician: GAUDENCIO CARDONA. History: Bowel obstruction suspected Stone suspected. [...] Tobacco user?: NO Patient will require observation [place] [employer] was verified during stay Lyubov Banda MD [facility] 2023 22:58:21 MEDICINE [facility] ADMIT H&P Date of Service: 2023 [...] of Onset No Significant Medical Problems Mother NE (myocardial infarction) Father ALLERGIES No Known Allergies [...] extending above the umbilicus. Assessment & Plan Johnnie Shah is a 58 year old male [...] Code Status: Presumed Full Code T [facility] EMERGENCY PHYSICIAN STAFF [facility] 2023-04-21 00:39:12 [facility] Admit H&P PCP: Erik Louie Jr Date of Service: 04/20/2023 CHIEF COMPLAINT: Polyuria HISTORY OF PRESENT ILLNESS Johnnie Shah is a 57 year old male with a PMH of HTN, T2DM, Fmhx premature CAD who presented with complaints of polyuria and weakness at [facility] ER. Patient transferred to [place] for further work up. Patient reports that [...] or drug use. Family history significant for NE in father in his 40s. Currently not [...] use drugs. Family history: family history includes NE (myocardial infarction) in his father; No Significant [...] Limited history No previous cardiac workup ASSESSMENT/PLAN Johnnie Shah is a 57 year old male [...] with resources. Plan: - Admit to [facility] - Trend Troponin to peak - [...] Internal Medicine Department PGY 2, [place] Team [employer]OLLER Associated attestation - Bret Banda MD - 04/21/2023 2:47 PM UNIVERSITY CONTROLLER I reviewed patient's chart, vitals, lab work, current medications and other diagnostic studies. I saw and examined the patient today and agree with the detailed note. I actively participated in the decision-making process. Bret Banda MD I O Psychologist Division of Cardiology [facility]
--- NOTE | 2024-05-07 20:26 | EDPHYS ---
Physician Documentation [facility] Name: Johnnie Maldonado Age: 58 yrs Sex: Male : 1965 Arrival Date: 05/07/2024 Time: 19:57 Bed IW6 Private MD: ED Physician Adolfo Ford HPI: 05/07 20:10 This 58 yrs old Male presents to ER via EMS with complaints of High Blood kb Pressure. 20:10 Pt is a 58 year old male who presents for blood pressure and glucose check. 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 States he hasn't taken any medication since discharge one month ago. States the medications were called into [facility] but he hasn't gone to check on them or get them. Historical: - Allergies: 20:08 No Known Allergies; br2 - PMHx: 20:08 diabetes mellitus; Hypertensive disorder; br2 - Immunization history:: Adult Immunizations up to date. - Infectious Disease History:: Denies. - Social history:: Smoking status: Patient denies any tobacco usage or history of. ROS: 20:09 Constitutional: As per HPI kb Exam: 20:09 Constitutional: This is a well developed, well nourished patient who is awake, alert, kb and in no acute distress. Head/Face: Normocephalic, atraumatic. ENT: Moist Mucous membranes Cardiovascular: Regular rate Respiratory: Respirations even and unlabored. No increased work of breathing. Talking in full sentences Skin: Warm, dry with normal turgor. Normal color. MS/ Extremity: Pulses equal, no cyanosis. Neurovascular intact. Full, normal range of motion. Neuro: Awake and alert, GCS 15, oriented to person, place, time, and situation. Vital Signs: 20:04 BP 153 / 84; Pulse 88; Resp 18 S; Temp 97.2; Pulse Ox 98% on R/A; Weight 54.43 kg; br2 Height 5 ft. 3 in. ; Pain 0/10; 20:04 Body Mass Index 21.26 (54.43 kg, 160.02 cm) br2 20:04 Pain Scale: Adult br2 MDM: 20:01 Medical Screening Exam initiated kb 20:10 Data reviewed: vital signs, nurses notes. kb 20:24 Differential diagnosis: hypertensive crisis, Malignant HTN. Test considered but Not kb performed: EKG: ekg considered but pt has no chest pain, palpitations. Labs: cbc, cmp considered but pt is asymptomatic. Pt states he drank a Dr Pepper prior to arrival so that is why his sugar is so high. Historians other than the Patient: EMS: [facility]. Counseling: I had a detailed discussion with the patient and/or guardian regarding the historical points, exam findings, and any diagnostic results supporting the discharge/admit diagnosis, lab results, the need for outpatient follow up, a family practitioner, to return to the emergency department if symptoms worsen or persist or if there are any questions or concerns that arise at home. 05/07 20:24 Order name: Glucose, Ancillary Testing; Complete Time: 20:24 EDMS 05/07 20:08 Order name: Blood Glucose Level kb Administered Medications: No medications were administered Disposition Summary: 05/07/24 20:26 Discharge Ordered Notes: Location: Home kb Condition: Stable kb Diagnosis - Hyperglycemia, unspecified kb - Essential (primary) hypertension kb Followup: kb - With: Emergency Department - When: As needed - Reason: Worsening of condition Followup: kb - With: Private Physician - When: 2 - 3 days - Reason: Recheck today's complaints, Continuance of care, Re-evaluation by your physician Discharge Instructions: - Discharge Summary Sheet kb - Hypertension, Adult, [id number] kb - Hyperglycemia, [id number] kb Forms: - Medication Reconciliation Form kb - Antibiotic Education kb - Prescription Opioid Use kb - Patient Portal Instructions kb - Leadership Thank You Letter kb Addendum: 05/15/2024 09:10 I was immediately available for consultation during this patient's visit. I did not e c2 personally see the patient or discuss the patient with the [facility]. . Signatures: Jaky Browne FNP-C FNP-Adolfo Thomas MD MD ec2 Akiko Rossi RN RN br2
--- NOTE | 2024-05-07 20:26 | ER ---
Nurse's Notes [facility] Name: Johnnie Maldonado Age: 58 yrs Sex: Male : 1965 Arrival Date: 05/07/2024 Time: 19:57 Bed IW6 Private MD: Diagnosis: Hyperglycemia, unspecified;Essential (primary) hypertension Presentation: 05/07 20:04 Chief complaint: Patient states: PT STATES HE WANTS BLOOD PRESSURE CHECKED. PT WAS br2 ATTEMPTING TO STAY AT [facility] [employer] BUT THEY HAD ALREADY CLOSED. Coronavirus screen: Client denies travel out of the [place] in the last 14 days. Ebola Screen: Patient denies exposure to infectious person. Initial Sepsis Screen: Does the patient meet any 2 criteria? No. Patient's initial sepsis screen is negative. Does the patient have a suspected source of infection? No. Patient's initial sepsis screen is negative. Risk Assessment: Do you want to hurt yourself or someone else? Patient reports no desire to harm self or others. 20:04 Method Of Arrival: EMS: [facility] br2 20:04 Acuity: DONTE 5 br2 20:04 Onset of symptoms. br2 Triage Assessment: 20:04 General: Appears in no apparent distress. Behavior is calm, cooperative. br2 20:58 General: Appears. br2 Historical: - Allergies: 20:08 No Known Allergies; br2 - PMHx: 20:08 diabetes mellitus; Hypertensive disorder; br2 - Immunization history:: Adult Immunizations up to date. - Infectious Disease History:: Denies. - Social history:: Smoking status: Patient denies any tobacco usage or history of. Screenin:04 [facility] ED Fall Risk Assessment (Adult) History of falling in the last 3 months, br2 including since admission No falls in past 3 months (0 pts) Confusion or Disorientation No (0 pts) Intoxicated or Sedated No (0 pts) Impaired Gait No (0 pts) Mobility Assist Device Used No (0 pt) Altered Elimination No (0 pt) Score/Fall Risk Level 0 - 2 = Low Risk Oriented to surroundings. Abuse screen: Denies threats or abuse. Denies injuries from another. Nutritional screening: No deficits noted. Tuberculosis screening: No symptoms or risk factors identified. Assessment: 20:12 Reassessment: BLOOD GLUCOSE 380. br2 Vital Signs: 20:04 BP 153 / 84; Pulse 88; Resp 18 S; Temp 97.2; Pulse Ox 98% on R/A; Weight 54.43 kg; br2 Height 5 ft. 3 in. ; Pain 0/10; 20:04 Body Mass Index 21.26 (54.43 kg, 160.02 cm) br2 20:04 Pain Scale: Adult br2 ED Course: 20:00 Patient arrived in ED. kb 20:00 Jaky Browne FNP-C [facility]. kb 20:01 Adolfo Ford MD is Attending Physician. kb 20:04 Patient has correct armband on for positive identification. Provided Education on: PLAN br2 OF CARE. 20:04 Arm band placed on. br2 20:08 Triage completed. br2 20:59 No provider procedures requiring assistance completed. Patient did not have IV access br2 during this emergency room visit. Administered Medications: No medications were administered Medication: 20:59 VIS not applicable for this client. br2 Outcome: 20:26 Discharge ordered by . kb 20:59 Discharged to home ambulatory, br2 20:59 Condition: good 20:59 Discharge instructions given to patient, Instructed on discharge instructions, follow up and referral plans. Demonstrated understanding of instructions, follow-up care, 21:00 Patient left the ED. br2 Signatures: Jaky Browne FNP-C FNP-Ckb Riddle, Belinda, RN RN br2
[2024-05-09 16:16] VITALS: BP 153/84; TEMP 97.2; O2SAT 98
== END 2024-05-07 21:00 | disposition home or self-care (01) ==
LOC: ER 19:57
DX: I10 Essential (primary) hypertension (principal); E11.65 Type 2 diabetes mellitus with hyperglycemia
CPT/HCPCS: 82947; 99283

== ENCOUNTER 2024-05-12 01:03 | Emergency (ER) | payer SELFPAY ==
--- OUTSIDE RECORDS SUMMARY | 2024-05-12 01:09 | XMS REPORT | Continuity of Care Document ---
Author Name Unknown Address [address] [place] [address] [facility] thconnect Address [address] [place] [address] Care Team Providers Care Cotton Dispatcher Name Role Phone Erik Louie Jr. Primary Care Physician + [phone] Cosme Cardona DO Attending Clinician [phone] Solo CHONG, Lyubov Hilton Attending Clinician [phone] Rosalie Irizarry RN Attending Clinician [phone] Miguel CHONG, Ricky K.H. Attending Clinician + [phone] Umang Botello MD Attending Clinician [phone] Jerry Fields DO Attending Clinician [phone] Vimal Quiñones MD Attending Clinician [phone] Jeannette Dawn LVN Attending Clinician + [phone] PARVEZ MONROE Attending Clinician Unavailable Servando Aponte MD Attending Clinician [phone] Bret Banda MD Attending Clinician [phone] Parvez Monroe MD Attending Clinician [phone] Lyubov Banda MD Admitting Clinician [phone] Jerry Fields DO Admitting Clinician [phone] PARVEZ MONROE Admitting Clinician Unavailable Parvez Monroe MD Admitting Clinician Problems Condition Name Condition Details Condition Category Status Onset Date Resolution Date Last Treatment Date Treating Clinician Comments Source Elevated troponin I level Elevated troponin I level Disease Active 08-14 00:00: 00 [facility] Elevated brain natriureti c peptide (BNP) level Elevated brain natriureti c peptide (BNP) level Disease Active 08-14 00:00: 00 [facility] Essential hypertensi on Essential hypertensi on Disease Active 08-14 00:00: 00 [facility] ELIEZER (acute kidney injury) ELIEZER (acute kidney injury) Disease Active 08-14 00:00: 00 [facility] Type 2 diabetes mellitus with other specified complicati on Type 2 diabetes mellitus with other specified complicati on Disease Active 08-14 00:00: 00 [facility] Hypertensi on, unspecifie d type Hypertensi on, unspecifie d type Disease Active 08-13 00:00: 00 [facility] NSTEMI (non-ST elevated myocardial infarction ) NSTEMI (non-ST elevated myocardial infarction ) Disease Active 2022-04 00:00: 00 [facility] Allergies, Adverse Reactions, Alerts Allergy Name Allergy Type Status Severity Reaction(s) Onset Date Inactive Date Treating Clinician Comments Source NO KNOWN ALLERGIE S Drug Class Active [facility] Social History Social Habit Start Date Stop Date Quantity Comments Source [facility] of Social function 2023-08-23 00:00:00 2023-08-23 00:00:00 [facility] Alcohol intake 2023-08-22 00:00:00 2023-08-22 00:00:00 Lifetime non-drinker (finding) [facility] Tobacco use and exposure 2023-04-21 00:00:00 2023-04-21 00:00:00 Smokeless tobacco non-user [facility] Sex Assigned At 1965 00:00:00 1965 00:00:00 [facility] Smoking Status Start Date Stop Date Source Never smoked tobacco [facility] Medications Ordered Medication Name Filled Medication Name Start Date Stop Date Current Medication? Ordering Clinician Indication Dosage Frequency Signature (SIG) Comments Components Source acarbose 25 mg tablet 08-23 00:00: 00 Yes [id number] 25mg Take 1 tablet by mouth in the morning and 1 tablet at noon and 1 tablet in the evening. Take with meals. [facility] metFORMIN 500 mg 24 hr tablet 08-23 00:00: 09-23 04:59 :00 No [id number] 500mg Take 1 tablet by mouth in the morning and 1 tablet in the evening. Take with meals. Do all this for 30 days. [facility] amLODIPine 10 mg tablet 08-23 00:00: 09-23 04:59 :00 No [id number] 10mg Take 1 tablet by mouth in the morning for 30 days. [facility] tamsulosin 0.4 mg 24 hr capsule 08-23 00:00: 00 09-23 04:59 :00 No [id number] .4mg Take 1 capsule by mouth in the morning for 30 days. [facility] levoFLOXaci n 500 mg tablet 08-23 00:00: 08-26 04:59 :00 No [id number] 500mg Take 1 tablet by mouth every 24 (twenty-fo ur) hours for 2 days. [facility] cefTRIAXone (ROCEPHIN) 1,000 mg in NaCl [...] Urine
D uration of therapy: Once (ED) [facility] D5W IV infusion 1,000 mL 08-22 15:00: 00 08-22 16:53 :22 No 1000mL at 50 mL/hr, IV Infusion, ONCE, 1 dose, On Wed08/23/23 at 1000, Routine [facility] amLODIPine (NORVASC) tablet 5 mg 08-22 14:00: 00 Yes 5mg 5 mg, Oral, DAILY, First dose on Wed08/23/23 at 0900, Until Discontinu ed, Routine [facility] D5W 0.45% NaCl (1/2NS) IV infusion 1,000 mL 08-22 02:29: 00 08-23 17:53 :57 No 1000mL at 75 mL/hr, 1,000 mL, IV Infusion, CONTINUOUS , Starting on Wed08/22/23 at 2130, Until Wed08/24/23 at 1253, Routine [facility] D5W IV infusion 1,000 mL 08-21 21:30: 00 08-22 02:27 :22 No 1000mL at 100 mL/hr, IV Infusion, CONTINUOUS , Starting on Wed08/22/23 at 1630, Until Wed08/22/23 at 2127, Routine [facility] Sliding Scale Insulin - Lispro (HumaLOG) 08-21 21:00: 00 Yes Subcutaneo us, Q4H, First dose on Wed08/22/23 at 1600, Until Discontinu ed, Routine [facility] glucagon (GLUCAGEN DIAGNOSTIC KIT) injection 1 mg 08-21 20:17: 12 Yes 1mg 1 mg, Intramuscu lar, PRN, Starting on Wed08/22/23 at 1517, Until Discontinu ed, HAO, Blood Glucose < or = 70 mg/dL and patient is NPO, unable to swallow or has mental changes. [facility] dextrose 50 % in water (D50W) injection 25 mL 08-21 20:17: 12 Yes 25mL 25 mL, Slow IV Push, PRN, Starting on Wed08/22/23 at 1517, Until Discontinu ed, HAO, Blood Glucose < or = 70 mg/dL and patient is NPO, unable to swallow or has mental status changes. [facility] D5W IV infusion 1,000 mL 08-21 17:45: 00 08-21 20:16 :11 No 1000mL at 100 mL/hr, IV Infusion, CONTINUOUS , Starting on Wed08/22/23 at 1245, Until Wed08/22/23 at 1516, Routine [facility] tamsulosin (FLOMAX) capsule 0.4 mg 08-21 14:00: 00 Yes .4mg 0.4 mg, Oral, DAILY, First dose on Wed08/22/23 at 0900, Until Discontinu ed, Routine [facility] docusate (COLACE) capsule 100 mg 08-21 13:00: 00 Yes 100mg 100 mg, Oral, BID, First dose on Wed08/22/23 at 0800, Until Discontinu ed, Routine [facility] heparin (porcine) injection 5,000 Units 08-21 13:00: 00 Yes 5000U 5,000 Units, Subcutaneo us, Q12H, First dose on Wed08/22/23 at 0800, Until Discontinu ed, Routine [facility] D5W 0.45% NaCl (1/2NS) IV infusion 1,000 mL 08-21 06:15: 00 08-21 16:44 :38 No 1000mL at 100 mL/hr, 1,000 mL, IV Infusion, CONTINUOUS , Starting on Wed08/22/23 at 0115, Until Wed08/22/23 at 1144, Routine [facility] D5W 0.45% NaCl (1/2NS) Bolus infusion 1,000 mL 08-21 06:00: 00 08-21 06:21 :00 No 1000mL at 999 mL/hr, 1,000 mL, IV Infusion, ONCE, 1 dose, On Wed08/22/23 at 0100, Routine [facility] NaCl 0.9% (NS) bolus infusion 1,000 mL 08-21 04:15: 00 08-21 05:05 :00 No 1000mL at 999 mL/hr, 1,000 mL, IV Infusion, ONCE, 1 dose, On 08/21/23 at 2315, STAT [facility] bisacodyL (DULCOLAX) tablet 10 mg 08-21 04:02: 51 Yes 10mg 10 mg, Oral, QDAILYPRN, Starting on 08/21/23 at 2302, Until Discontinu ed, Routine, Constipati on [facility] ondansetron (ZOFRAN (PF)) injection 4 mg 08-21 04:02: 17 Yes 4mg 4 mg, Slow IV Push, Q6HPRN, Starting on 08/21/23 at 2302, Until Discontinu ed, Routine, Nausea and Vomiting (N/V) [facility] FENTanyl PF (SUBLIMAZE (PF)) injection 12.5 mcg 08-21 04:02: 09 08-22 04:01 :09 No 12.5ug 12.5 mcg, Slow IV Push, Q6HPRN, Starting on 08/21/23 at 2302, Until 08/22/23 at 2301, Routine, Pain (scale 7-10), Pain (scale 4-6) [facility] acetaminoph en (TYLENOL) tablet 650 mg 08-21 04:01: 56 Yes 650mg 650 mg, Oral, Q6HPRN, Starting on 08/21/23 at 2301, Until Discontinu ed, Routine, Pain (scale 1-3) [facility] magnesium citrate solution 296 mL 08-21 01:45: 00 08-21 01:25 :00 No 296mL 296 mL, Oral, ONCE, 1 dose, On 08/21/23 at 2045, Routine [facility] amLODIPine 5 mg tablet 08-16 00:00: 00 08-23 00:00 :00 No [id number] 5mg Take 1 tablet by mouth in the morning for 30 days. [facility] lactulose (CEPHULAC) solution 45 mL 08-15 15:45: 00 08-15 15:21 :00 No 45mL 45 mL, Oral, ONCE, 1 dose, On Wed08/16/23 at 1045, Routine [facility] amLODIPine (NORVASC) tablet 5 mg 08-15 14:00: 00 Yes 5mg 5 mg, Oral, DAILY, First dose on Wed08/16/23 at 0900, Until Discontinu ed, Routine [facility] sennosides (SENOKOT) tablet 8.6 mg 08-15 14:00: 00 Yes 8.6mg 8.6 mg, Oral, DAILY, First dose on Wed08/16/23 at 0900, Until Discontinu ed, Routine [facility] losartan (COZAAR) tablet 25 mg 08-15 14:00: 00 Yes 25mg 25 mg, Oral, DAILY, First dose (after last modificati on) on Wed08/16/23 at 0900, Until Discontinu ed, Routine [facility] docusate (COLACE) capsule 100 mg 08-15 13:00: 00 Yes 100mg 100 mg, Oral, BID, First dose on Wed08/16/23 at 0800, Until Discontinu ed, Routine [facility] lactulose (CEPHULAC) solution 30 mL 08-15 10:00: 00 08-15 09:33 :00 No 30mL 30 mL, Oral, ONCE, 1 dose, On Wed08/16/23 at 0500, Routine [facility] metFORMIN 500 mg 24 hr tablet 08-15 00:00: 00 08-23 00:00 :00 No [id number] 500mg Take 1 tablet by mouth in the morning and 1 tablet in the evening. Take with meals. Do all this for 30 days. [facility] acarbose 25 mg tablet 08-15 00:00: 00 08-23 00:00 :00 No [id number] 25mg Take 1 tablet by mouth in the morning and 1 tablet at noon and 1 tablet in the evening. Take with meals. Do all this for 30 days. [facility] pioglitazon e 15 mg tablet 08-15 00:00: 00 08-23 00:00 :00 No [id number] 15mg Take 1 tablet by mouth in the morning for 30 days. [facility] tamsulosin 0.4 mg 24 hr capsule 08-15 00:00: 00 08-23 00:00 :00 No [id number] .4mg Take 1 capsule by mouth in the morning for 30 days. [facility] losartan 25 mg tablet 08-15 00:00: 00 08-23 00:00 :00 No [id number] 25mg Take 1 tablet by mouth in the morning for 30 days. [facility] glipiZIDE (GLUCOTROL) tablet 5 mg 08-14 21:30: 00 Yes 5mg 5 mg, Oral, BIDAC, First dose on 08/15/23 at 1630, Until Discontinu ed, Routine [facility] KCL (KLOR-CON M20) tablet 40 mEq 08-14 21:30: 00 08-14 21:21 :00 No 40meq 40 mEq, Oral, ONCE, 1 dose, On 08/15/23 at 1630, Routine [facility] pioglitazon e (ACTOS) tablet 7.5 mg 08-14 17:00: 00 08-15 12:47 :51 No 7.5mg 7.5 mg, Oral, DAILY, First dose on 08/15/23 at 1200, Until Discontinu ed, Routine [facility] tamsulosin (FLOMAX) capsule 0.4 mg 08-14 15:49: 00 Yes .4mg 0.4 mg, Oral, DAILY, First dose on 08/15/23 at 1100, Until Discontinu ed, Routine [facility] amLODIPine (NORVASC) tablet 10 mg 08-14 14:00: 00 08-14 15:51 :30 No 10mg 10 mg, Oral, DAILY, First dose on 08/15/23 at 0900, Until Discontinu ed, Routine [facility] heparin (porcine) injection 5,000 Units 08-14 03:00: 00 08-14 06:07 :44 No 5000U 5,000 Units, Subcutaneo us, Q8H, First dose on 08/14/23 at 2200, Until Discontinu ed, Routine [facility] Sliding Scale Insulin - Lispro (HumaLOG) 08-14 02:00: 00 08-14 18:06 :14 No Subcutaneo us, TID MEALS+HS, First dose on 08/14/23 at 2100, Until Discontinu ed, Routine [facility] glucagon (GLUCAGEN DIAGNOSTIC KIT) injection 1 mg 08-14 00:36: 37 Yes 1mg 1 mg, Intramuscu lar, PRN, Starting on 08/14/23 at 1936, Until Discontinu ed, HAO, Blood Glucose < or = 70 mg/dL and patient is NPO, unable to swallow or has mental changes. [facility] dextrose 50 % in water (D50W) injection 25 mL 08-14 00:36: 37 Yes 25mL 25 mL, Slow IV Push, PRN, Starting on 08/14/23 at 1936, Until Discontinu ed, HAO, Blood Glucose < or = 70 mg/dL and patient is NPO, unable to swallow or has mental status changes. [facility] acetaminoph en (TYLENOL) tablet 650 mg 08-14 00:36: 24 Yes 650mg 650 mg, Oral, Q6HPRN, Starting on 08/14/23 at 1936, Until Discontinu ed, Routine, Pain (scale 1-3) [facility] aspirin chewable tablet 324 mg 08-13 23:15: 00 08-13 22:56 :00 No [id number] 324mg 324 mg, Oral, ONCE, 1 dose, On 08/14/23 at 1815, HAO [facility] lidocaine 2% viscous (LIDOCAINE VISCOUS) 2 % solution 15 mL 08-13 23:00: 00 08-13 22:10 :00 No [id number] 15mL 15 mL, Oral, ONCE, 1 dose, On 08/14/23 at 1800, Routine [facility] KCL (KLOR-CON M20) tablet 20 mEq 08-13 22:30: 00 08-13 22:59 :00 No [id number] 20meq 20 mEq, Oral, ONCE, 1 dose, On 08/14/23 at 1730, [facility] metoprolol tartrate (LOPRESSOR) tablet 50 mg 08-13 22:00: 00 08-13 22:58 :00 No [id number] 50mg 50 mg, Oral, ONCE, 1 dose, On 08/14/23 at 1700, [facility] iopamidol (ISOVUE 370-500 mL) injection 80 mL 08-13 21:30: 00 08-13 21:45 :00 No [id number] 80mL 80 mL, Intravenou s, ONCE, 1 dose, On 08/14/23 at 1645, Routine [facility] acetaminoph en (TYLENOL) tablet 650 mg 08-13 21:15: 00 08-13 22:57 :00 No [id number] 650mg 650 mg, Oral, ONCE, 1 dose, On 08/14/23 at 1615, [facility] amLODIPine (NORVASC) tablet 5 mg 08-13 21:15: 00 08-13 22:58 :00 No [id number] 5mg 5 mg, Oral, ONCE, 1 dose, On 08/14/23 at 1615, [facility] NaCl 0.9% (NS) bolus infusion 1,000 mL 08-13 21:15: 00 08-13 21:50 :00 No [id number] 1000mL at 999 mL/hr, 1,000 mL, IV Infusion, ONCE, 1 dose, On 08/14/23 at 1615, [facility] insulin NPH (HUMULIN N) injection 9 Units 2022-04 14:00: 00 Yes 9U 9 Units, Subcutaneo us, QAM WITH BREAKFAST, First dose (after last modificati on) on Wed04/24/23 at 0800, Until Discontinu ed, Routine [facility] losartan 25 mg tablet 2022-04 00:00: 00 08-15 00:00 :00 No [id number] 25mg Take 1 tablet by mouth in the morning. [facility] tamsulosin (FLOMAX) 0.4 mg 24 hr capsule 2022-04 00:00: 00 08-15 00:00 :00 No [id number] .4mg Take 1 capsule by mouth in the morning. [facility] metFORMIN 500 mg tablet 2022-04 00:00: 00 05-23 05:59 :00 No [id number] Take 1 tablet by mouth 2 (two) times daily with meals for 7 days, THEN 2 tablets 2 (two) times daily with meals for 21 days. [facility] insulin lispro (human) (HumaLOG U-100) injection 3 Units 2022-04 23:00: 00 Yes 3U 3 Units, Subcutaneo us, TID MEALS, First dose (after last modificati on) on Wed04/23/23 at 1700, Until Discontinu ed, Routine [facility] insulin NPH (HUMULIN N) injection 5 Units 2022-04 23:00: 00 Yes 5U 5 Units, Subcutaneo us, QPM, First dose (after last modificati on) on Wed04/23/23 at 1700, Until Discontinu ed, Routine [facility] losartan (COZAAR) tablet 25 mg 2022-04 15:00: 00 Yes 25mg 25 mg, Oral, DAILY, First dose on Wed04/23/23 at 0900, Until Discontinu ed, Routine [facility] Potassium Bicarb-Citr ic Acid (EFFER-K) effervescen t tablet 40 mEq 2022-04 13:00: 00 04-23 13:33 :00 No 40meq 40 mEq, Oral, ONCE, 1 dose, On 12/29/23 at 0700, Routine [facility] ramelteon (ROZEREM) tablet 8 mg 2022-04 10:45: 00 04-23 10:51 :00 No 8mg 8 mg, Oral, ONCE NOW, 1 dose, On Wed04/23/23 at 0500, Routine [facility] Blood-Gluco se Meter (ACCU-CHEK GUIDE GLUCOSE METER) [facility] 2022-04 00:00: 00 Yes [id number] Use as directed [facility] lancets 33 gauge [facility] 2022-04 00:00: 00 Yes [id number] Use as directed [facility] blood sugar diagnostic (ACCU-CHEK GUIDE TEST STRIPS) strip 2022-04 00:00: 00 Yes [id number] Use as directed [facility] pioglitazon e 15 mg tablet 2022-04 00:00: 00 08-15 00:00 :00 No [id number] 7.5mg Take 0.5 tablets by mouth in the morning. [facility] acarbose 25 mg tablet 2022-04 00:00: 00 08-15 00:00 :00 No [id number] 25mg Take 1 tablet by mouth in the morning and 1 tablet at noon and 1 tablet in the evening. Take with meals. [facility] atorvastati n 80 mg tablet 2022-04 00:00: 00 05-24 05:59 :00 No [id number] 80mg Take 1 tablet by mouth at bedtime for 30 days. [facility] glipiZIDE 5 mg tablet 2022-04 00:00: 00 05-24 05:59 :00 No [id number] 5mg Take 1 tablet by mouth 2 (two) times daily before breakfast and dinner for 30 days. [facility] enoxaparin (LOVENOX) injection 40 mg 2022-04 [...] 1700, Until Discontinu ed, Routine [facility] insulin lispro (human) (HumaLOG U-100) injection 2 Units 2022-04 23:00: 00 04-23 19:10 :37 No 2U 2 Units, Subcutaneo us, TID MEALS, First dose (after last modificati on) on Wed04/21/23 at 1700, Until Discontinu ed, Routine [facility] NaCl 0.9% (NS) IV infusion 250 mL 2022-04 21:15: 00 04-22 20:03 :10 No [id number] 250mL at 20 mL/hr, IV Infusion, CONTINUOUS , Starting on Wed04/21/23 at 1515, Until Wed04/22/23 at 1403, Routine
To keep [facility] (DEFINITY) injection 2 mL 2022-04 21:00: 00 04-21 20:15 :00 No [id number] 2mL 2 mL, IV Push, ONCE, 1 dose, On Wed04/21/23 at 1500, Routine [facility] atropine injection 1 mg 2022-04 21:00: 00 04-21 20:44 :00 No [id number] 1mg 1 mg, Slow IV Push, ONCE, 1 dose, On Wed04/21/23 at 1500, Routine [facility] DOBUTamine (DOBUTREX) 250 mg/250 mL RTU infusion 2022-04 20:13: 51 04-22 20:03 :10 No [id number] 5ug/kg/ min 5 mcg/kg/min ?59 kg (17.7 [...] the Dobutamine infusion. (see Adjunctive Therapy)<b r> [facility] perflutren protein-A microsphr (OPTISON) injection 3 mL 2022-04 17:15: 00 04-21 15:22 :00 No [id number] 3mL 3 mL, IV Push, ONCE, 1 dose, On Wed04/21/23 at 1115, Routine [facility] potassium chloride in water 10 mEq/100 mL RTU 10 mEq 2022-04 17:00: 00 04-21 20:59 :00 No 10meq 10 mEq, IV Piggyback, Q1H, 4 doses, First dose (after last reorder) on Wed04/21/23 at 1100, Last dose on Wed04/21/23 at 1400, Administer over 60 Minutes, 100 mL [facility] tamsulosin (FLOMAX) capsule 0.4 mg 2022-04 15:00: 00 Yes .4mg 0.4 mg, Oral, DAILY, First dose on Wed04/21/23 at 0900, Until Discontinu ed, Routine [facility] aspirin chewable tablet 81 mg 2022-04 15:00: 00 04-22 16:28 :38 No 81mg 81 mg, Oral, DAILY, First dose on Wed04/21/23 at 0900, Until Discontinu ed, Routine [facility] aspirin tablet 325 mg 2022-04 15:00: 00 [...] dose, On Wed04/21/23 at 0630, Routine [facility] insulin glargine (LANTUS U-100) injection [...] at 0030, Until Discontinu ed, Routine [facility] dextrose 50 % in water [...] Until Discontinu ed, Routine, Pain (scale 1-3) [facility] NaCl 0.9% (NS) bolus infusion 1,000 mL 2022-04 04:00: 00 04-21 03:45 :00 No 1000mL at 999 mL/hr, 1,000 mL, IV Infusion, ONCE, 1 dose, On Wed04/20/23 at 2200, STAT [facility] clopidogreL (PLAVIX) 300 mg tablet 300 mg 2022-04 03:30: 00 04-21 02:50 :00 No 300mg 300 mg, Oral, ONCE, 1 dose, On Wed04/20/23 at 2130, HAO [facility] HEPARIN SODIUM (PORCINE) 1,000 UNIT/ML BOLUS ACS ORDER SET 2022-04 02:45: 00 04-21 02:53 :00 No 60U/kg 3,540 Units (60 Units/kg ?59 kg), IV Push, ONCE, 1 dose, On Wed04/20/23 at 2044, HAO [facility] heparin 25,000 Units/250 mL (Premixed Bag) [...] e, Dosing and Testing: &nbs p;FOR [place], [facility], AND [facility] ONLY &nbs p; - [...] BOLUS OR INITIAL INFUSION RATE.
[facility] Vital Signs Vital Name Observation Time Observation Value Comments S ource Systolic blood pressure 2023-08-24 13:02:00 150 mm[Hg] [facility] Diastolic blood pressure 2023-08-24 13:02:00 88 mm[Hg] [facility] Heart rate 2023-08-24 13:02:00 79 /min [facility] Body temperature 2023-08-24 13:02:00 36.44 Deya [facility] Respiratory rate 2023-08-24 13:02:00 14 /min [facility] Oxygen saturation in Arterial blood by Pulse oximetry 2023-08-24 13:02:00 98 /min [facility] Body weight 2023-08-24 08:43:00 58.469 kg [facility] BMI 2023-08-24 08:43:00 22.83 kg/m2 [facility] Body height 2023-08-22 04:52:00 160 cm [facility] Systolic blood pressure 2023-08-16 16:53:00 154 mm[Hg] [facility] Diastolic blood pressure 2023-08-16 16:53:00 94 mm[Hg] [facility] Heart rate 2023-08-16 16:53:00 82 /min [facility] Body temperature 2023-08-16 16:53:00 36.61 Deya [facility] Respiratory rate 2023-08-16 16:53:00 16 /min [facility] Oxygen saturation in Arterial blood by Pulse oximetry 2023-08-16 16:53:00 99 /min [facility] Body weight 2023-08-16 09:56:00 56.473 kg [facility] BMI 2023-08-16 09:56:00 22.05 kg/m2 [facility] Body height 2023-08-15 04:07:00 160 cm [facility] Systolic blood pressure 2023-04-23 18:11:00 141 mm[Hg] [facility] Diastolic blood pressure 2023-04-23 18:11:00 80 mm[Hg] [facility] Heart rate 2023-04-23 18:11:00 101 /min [facility] Body temperature 2023-04-23 18:11:00 35.89 Deya [facility] Respiratory rate 2023-04-23 18:11:00 18 /min [facility] Oxygen saturation in Arterial blood by Pulse oximetry 2023-04-23 18:11:00 98 /min [facility] Body weight 2023-04-22 09:57:00 57.561 kg [facility] BMI 2023-04-22 09:57:00 22.48 kg/m2 [facility] Body height 2023-04-21 20:00:00 160 cm [facility] Procedures Procedure Date / Time Performed Performing Clinician Source POCT GLUCOSE (AUTOMATED) 2023-08-24 16:13:00 Jami Banda [facility] POCT GLUCOSE (AUTOMATED) 2023-08-24 12:34:00 Jami Banda [facility] BASIC METABOLIC PANEL (NA, K, CL, CO2, GLUCOSE, BUN, CREATININE, CA) 2023-08-24 08:42:00 Jerry Fields [facility] CBC WITH DIFF 2023-08-24 08:42:00 Jerry Fields [facility] POCT GLUCOSE (AUTOMATED) 2023-08-24 05:46:00 Jami Banda [facility] BASIC METABOLIC PANEL (NA, K, CL, CO2, GLUCOSE, BUN, CREATININE, CA) 2023-08-24 01:37:00 Jerry Fields [facility] POCT GLUCOSE (AUTOMATED) 2023-08-24 01:27:00 Jami Banda [facility] POCT GLUCOSE (AUTOMATED) 2023-08-23 21:29:00 Jami Banda [facility] BASIC METABOLIC PANEL (NA, K, CL, CO2, GLUCOSE, BUN, CREATININE, CA) 2023-08-23 17:41:00 Jerry Fields [facility] POCT GLUCOSE (AUTOMATED) 2023-08-23 16:42:00 Jami Banda [facility] POCT GLUCOSE (AUTOMATED) 2023-08-23 12:36:00 Jami Banda [facility] POCT GLUCOSE (AUTOMATED) 2023-08-23 09:09:00 Jami Banda [facility] MAGNESIUM 2023-08-23 08:23:00 Jerry Fields [facility] BASIC METABOLIC PANEL (NA, K, CL, CO2, GLUCOSE, BUN, CREATININE, CA) 2023-08-23 08:23:00 Jerry Fields [facility] CBC WITH DIFF 2023-08-23 08:23:00 Jerry Fields [facility] POCT GLUCOSE (AUTOMATED) 2023-08-23 04:52:00 Jami Banda [facility] POCT GLUCOSE (AUTOMATED) 2023-08-23 00:42:00 Jami Banda [facility] BASIC METABOLIC PANEL (NA, K, CL, CO2, GLUCOSE, BUN, CREATININE, CA) 2023-08-23 00:38:00 Jerry Fields [facility] POCT GLUCOSE (AUTOMATED) 2023-08-22 21:18:00 Jami Banda [facility] URIC ACID 2023-08-22 19:21:00 Alyssa Cain [facility] PROTEIN CREAT RATIO URINE RANDOM 2023-08-22 19:21:00 Alyssa Cain [facility] CORTISOL AM 2023-08-22 19:20:00 Alyssa Cain [facility] BASIC METABOLIC PANEL (NA, K, CL, CO2, GLUCOSE, BUN, CREATININE, CA) 2023-08-22 13:21:00 Lyubov Banda [facility] LACTIC ACID WHOLE BLOOD 2023-08-22 09:16:00 Loreta Banda mmad [facility] MAGNESIUM 2023-08-22 08:30:00 Lyubov Banda [facility] TROPONIN I 2023-08-22 08:30:00 Lyubov Banda [facility] CBC WITH DIFF 2023-08-22 08:30:00 [facility]-TERMINAL PRO-BNP 2023-08-22 08:30:00 Lyubov Banda [facility] PHOSPHORUS 2023-08-22 04:01:00 Lyubov Banda [facility] BASIC METABOLIC PANEL (NA, K, CL, CO2, GLUCOSE, BUN, CREATININE, CA) 2023-08-22 04:01:00 Cosme Cardona [facility] URINALYSIS 2023-08-22 01:52:00 Cosme Cardona [facility] CT ABDOMEN PELVIS WO CONTRAST 2023-08-22 01:26:17 Cosme Cardona [facility] CREATINE KINASE 2023-08-22 01:24:00 Lyubov Banda [facility] LIPASE 2023-08-22 01:24:00 Cardona, [facility] COMP. METABOLIC PANEL ([id number]) 2023-08-22 01:24:00 Singer [facility] CBC WITH DIFF 2023-08-22 01:24:00 Singer [facility] POCT GLUCOSE (AUTOMATED) 2023-08-16 21:51:00 Yue Fields [facility] POCT GLUCOSE (AUTOMATED) 2023-08-16 16:54:00 Yue Fields [facility] POCT GLUCOSE (AUTOMATED) 2023-08-16 12:45:00 Yue Fields [facility] POCT GLUCOSE (AUTOMATED) 2023-08-16 02:06:00 Yue Fields [facility] POCT GLUCOSE (AUTOMATED) 2023-08-15 21:29:00 Yue Fields [facility] POCT GLUCOSE (AUTOMATED) 2023-08-15 16:39:00 Yue Fields [facility] POCT GLUCOSE (AUTOMATED) 2023-08-15 13:08:00 Yue Fields [facility] TROPONIN I 2023-08-15 10:41:00 Juventino [facility] BASIC METABOLIC PANEL (NA, K, CL, CO2, GLUCOSE, BUN, CREATININE, CA) 2023-08-15 10:41:00 Shanice [facility] CBC WITH DIFF 2023-08-15 10:41:00 Juventino [facility] PROSTATIC SPECIFIC ANTIGEN 2023-08-15 05:32:00 Juventino [facility] TROPONIN I 2023-08-15 05:32:00 [facility] 2023-08-15 04:03:00 Yue Fields [facility] URINALYSIS 2023 22:15:00 Umang Botello [facility] XR CHEST 1 VW 2023 21:46:00 Umang Botello [facility] CT ABDOMEN PELVIS W CONTRAST 2023 21:34:55 [facility] CT TRAUMA HEAD WO CONTRAST 2023 21:33:20 [facility] HB ECG ROUTINE & RHYTHM STRIP 2023 21:10:12 [facility] PHOSPHORUS 2023 20:47:00 [facility] CREATINE KINASE 2023 20:47:00 [facility] LIPASE 2023 20:47:00 [facility] MAGNESIUM 2023 20:47:00 [facility] BETA HYDROXY-BUTYRATE 2023 20:47:00 Farida Botello [facility] TROPONIN I 2023 20:47:00 [facility] COMP. METABOLIC PANEL ([id number]) 2023 20:47:00 [facility] CBC WITH DIFF 2023 20:47:00 Umang Botello [facility] GLYCOSYLATED HEMOGLOBIN (A1C) 2023 20:47:00 Jerry Fields [facility] N-TERMINAL PRO-BNP 2023 20:47:00 Michael Botello [facility] ACUTE CARE VENOUS BLOOD GAS 2023 20:46:00 [facility] LACTIC ACID WHOLE BLOOD 2023 20:46:00 Kian Botello [facility] POCT GLUCOSE(AGE >30DAYS) 2023 20:26:00 [facility] POCT GLUCOSE (AUTOMATED) 2023 20:23:00 [facility] POCT GLUCOSE (AUTOMATED) 2023-04-23 18:09:00 Brien Banda [facility] POCT GLUCOSE (AUTOMATED) 2023-04-23 15:32:00 Brien Banda [facility] MAGNESIUM 2023-04-23 09:09:00 Loghin, Chet Un[facility] BASIC METABOLIC PANEL (NA, K, CL, CO2, GLUCOSE, BUN, CREATININE, CA) 2023-04-23 09:09:00 Chet Echavarria [facility] POCT GLUCOSE (AUTOMATED) 2023-04-23 02:56:00 Brien Banda [facility] POCT GLUCOSE (AUTOMATED) 2023-04-23 00:32:00 [facility] POCT GLUCOSE (AUTOMATED) 2023-04-22 22:43:00 Solo [facility] POCT GLUCOSE (AUTOMATED) 2023-04-22 20:36:00 Solo [facility] POCT GLUCOSE (AUTOMATED) 2023-04-22 17:44:00 Solo [facility] POCT GLUCOSE (AUTOMATED) 2023-04-22 13:41:00 Solo [facility] MAGNESIUM 2023-04-22 10:37:00 Daja Aaliyah [facility] BASIC METABOLIC PANEL (NA, K, CL, CO2, GLUCOSE, BUN, CREATININE, CA) 2023-04-22 10:37:00 Daja Aaliyah [facility] CBC WITH DIFF 2023-04-22 10:37:00 Daja Aaliyah [facility] POCT GLUCOSE (AUTOMATED) 2023-04-22 03:32:00 [facility] POCT GLUCOSE (AUTOMATED) 2023-04-22 01:34:00 [facility] COMPLETE ECHOCARDIOGRAM DOBUTAMINE STRESS TEST W CONTRAST 2023-04-21 21:15:00 Jeanine Montananejennie [facility] POCT GLUCOSE (AUTOMATED) 2023-04-21 17:36:00 [facility] ACTIVATED PARTIAL THRMPLAS JERMAINE 2023-04-21 16:47:00 Servando Aponte [facility] TRANSTHORACIC ECHO (TTE) COMPLETE W/ CONTRAST 2023-04-21 15:26:00 Kylie Fuchs [facility] TROPONIN I 2023-04-21 12:39:00 Víctor Fuchs Noel [facility] POCT GLUCOSE (AUTOMATED) 2023-04-21 09:39:00 Brien Banda [facility] MAGNESIUM 2023-04-21 09:10:00 Víctor Fuchs Noel [facility] BASIC METABOLIC PANEL (NA, K, CL, CO2, GLUCOSE, BUN, CREATININE, CA) 2023-04-21 09:10:00 Kylie Fuchs Noel [facility] LIPID PANEL (66517)(TOTAL CHOLESTEROL, TRIGLYCERIDES, HDL) 2023-04-21 09:10:00 Kylie Fuchs Noel [facility] CBC WITH DIFF 2023-04-21 09:10:00 Víctor Fuchs [facility] ACTIVATED PARTIAL THRMPLAS JERMAINE 2023-04-21 09:10:00 Servando Aponte [facility] XR CHEST 1 VW 2023-04-21 06:53:47 Víctor Fuchs amiayue [facility] TROPONIN I 2023-04-21 06:32:00 Víctor Fuchs anju Noel [facility] IRON PANEL 2023-04-21 06:32:00 Víctor Fuchs amiayue [facility] N-TERMINAL PRO-BNP 2023-04-21 06:32:00 Kylie Fuchs Noel [facility] CRITICAL CARE 2023-04-21 02:54:15 Servando Aponte [facility] PROTHROMBIN TIME / INR 2023-04-21 02:44:00 Enrique Aponte [facility] ACTIVATED PARTIAL THRMPLAS JERMAINE 2023-04-21 02:44:00 Servando Aponte [facility] URINALYSIS 2023-04-21 02:33:00 Servando Aponte [facility] PROTEIN CREAT RATIO URINE RANDOM 2023-04-21 02:33:00 Tavia Fuchsmad Noel [facility] URINE DRUG (IMMUNOASSAY) - COMPREHENSIVE DRUG SCREEN W/O REFLEX 2023-04-21 02:33:00 Servando Aponte [facility] PHOSPHORUS 2023-04-21 01:55:00 Víctor Fuchs Noel [facility] FERRITIN SERUM 2023-04-21 01:55:00 Víctor Fuchs Noel [facility] TROPONIN I 2023-04-21 01:55:00 [facility] THYROID STIMULATING HORMONE 2023-04-21 01:55:00 Kylie Fuchs Noel [facility] COMP. METABOLIC PANEL (15154) 2023-04-21 01:55:00 Servando Aponte [facility] ETHANOL 2023-04-21 01:55:00 Servando [facility]onte [facility] CBC WITH DIFF 2023-04-21 01:55:00 Servando Aponte [facility] GLYCOSYLATED HEMOGLOBIN (A1C) 2023-04-21 01:55:00 Kylie Fuchs [facility] POCT GLUCOSE (AUTOMATED) 2023-04-21 01:54:00 Yue Aponte [facility] EKG-12 LEAD 2023-04-21 01:51:41 Bret Banda [facility] Encounters Start Date/Time End Date/Time Encounter Type Admission Type Attending Clinicians Care Facility Care Department Encounter ID Source 2023-08-21 19:47:00 2023-08-24 16:32:00 Hospital Encounter Cosme Cardona Mohammad [facility] 1..840.114 [id number] 4.2.7.2.686 [id number] [facility] 2023-08-20 00:00:00 2023-08-20 00:00:00 Patient Outreach Rosalie Irizarry [id number] 4.2.7.2.686 [id number] [facility] 2023-08-17 00:00:00 2023-08-17 00:00:00 Telephone Ricky Rivera [facility] [id number] [id number] 4.2.7.2.686 [id number] [facility] 2023 14:42:00 2023-08-16 18:40:00 Hospital Encounter Umang Botello [place], Jelani [facility] [id number] [id number] 4.2.7.2.686 [id number] [facility] 2023-04-27 00:00:00 2023-04-27 00:00:00 Transition of Care Jeannette Dawn JANIS BAEZ [id number] [id number] 4.2.7.2.686 [id number] [facility] 2023-04-20 19:48:00 2023-04-23 19:54:00 Inpatient X PARVEZ MONROE [facility] CATRINA [id number] [facility] 2023-04-20 19:48:00 2023-04-23 19:54:00 Hospital Encounter Servando Aponte Rizwan Dacso, Matthew M [facility] [id number] [id number] [id number] [id number] [facility] Results Test Description Test Time Test Comments Results Result Co mments Source [facility]-08-24 12:35:27* Test Item Value Reference Range Interpretation Comme nts POCT GLU (test code = 9698988901) 204 mg/dL 70-110 H Lab Interpretation (test cod e = 44388-0) [facility] (NA, K, CL, CO2, GLUCOSE, BUN, CREATININE, CA)2023-08-24 09:45:39* Test Item Value Reference Range Interpretation Comme nts NA (test code = 6090013479) 133 mmol/L 135-145 L K (test code = 0861265359) 3.7 mmol/L 3.5-5.0 CL (test code = 5015435006) 98 mmol/L 98-108 CO2 TOTAL (test code = 2035532277) 27 mmol/L 23-31 AGAP (test code = 0363046627) 8 2-16 BUN (test code = 0656982437) 13 mg/dL 7-23 GLUCOSE (test code = 1082727611) 188 mg/dL 70-110 H CREATININE (test code = 2160-0) 0.63 mg/dL 0.60-1.25 CALCIUM (test code = 2439900322) 9.4 mg/dL 8.6-10.6 eGFR (test code = 80566-6) 111.6 mL/min/1.73m2 CKD-EPI eGFR (2020). Assuming creatinine has been stable day-to-day for at least three months, the eGFR indicates Category G1 (>= 90 mL/min/1.73 m2) Lab Interpretation (test code = 11847-5) [facility]normal [facility] [id number] 09:21:26* Test Item Value Reference Range Interpretation [...] g/dL 31.2-35.0 H RDW-SD (test code = 90033-4) 36.9 fL 38.5-51.6 L RDW-CV (test code = 788-0) 11.6 % 12.1-15.4 L PLT (test code = 777-3) 407 150-328 H MPV (test code = 09183-4) 9.5 fL 9.8-13.0 L NRBC/100 WBC (test code = 8720630908) 0.0 0.0-10.0 NRBC x10^3 (test code = 0361662318) See_Comment [Automated messa ge] The system which generated this result transmitted reference range: 10*3/?L. The reference range was not used to interpret this result as normal/abnormal. GRAN MAT (NEUT) % (test code = 770-8) 63.1 % IMM GRAN % (test code = 2985286039) 0.30 % LYMPH % (test code = 736-9) 21.1 % MONO % (test code = 5905-5) 8.3 % EOS % (test code = 713-8) 6.5 % BASO % (test code = 706-2) 0.7 % GRAN MAT x10^3(ANC) (test code = 8098589480) 3.71 10*3/uL 1.99-6.95 IMM GRAN x10^3 (test code = 5160451573) 0.00-0.06 LYMPH x10^3 (test code = 731-0) 1.24 10*3/uL 1.09-3.23 MONO x10^3 (test code = 742-7) 0.49 10*3/uL 0.36-1.02 EOS x10^3 (test code = 711-2) 0.38 10*3/uL 0.06-0.53 BASO x10^3 (test code = 704-7) 0.04 10*3/uL 0.01-0.09 Lab Interpretation (test code = 15502-4) Abnormal [facility]2023-08-24 05:47:46* Test Item Value Reference Range Interpretation Comme nts POCT GLU (test code = 8188592983) 126 mg/dL 70-110 H Lab Interpretation (test cod e = 77414-8) Abnormal [facility] Metabolic Panel (NA, K, CL, CO2, GLUCOSE, BUN, CREATININE, CA)2023-08-24 02:27:27* Test Item Value Reference Range Interpretation Comme nts NA (test code = 5317718352) 129 mmol/L 135-145 L K (test code = 8510223602) 3.9 mmol/L 3.5-5.0 CL (test code = 1293823322) 96 mmol/L 98-108 L CO2 TOTAL (test code = 8608892069) 29 mmol/L 23-31 AGAP (test code = 4827112229) 4 2-16 BUN (test code = 8502664208) 14 mg/dL 7-23 GLUCOSE (test code = 3185433107) 185 mg/dL 70-110 H CREATININE (test code = 2160-0) 0.56 mg/dL 0.60-1.25 L CALCIUM (test code = 4930434242) 9.2 mg/dL 8.6-10.6 eGFR (test code = 81313-2) 115.7 mL/min/1.73m2 CKD-EPI eGFR (2020). Assuming creatinine has been stable day-to-day for at least three months, the eGFR indicates Category G1 (>= 90 mL/min/1.73 m2) Lab Interpretation (test code = 13318-3) Abnormal [facility] GLUCOSE (AUTOMATED)2023-08-24 01:28:28* Test Item Value Reference Range Interpretation Comme nts POCT GLU (test code = 8531113366) 210 mg/dL 70-110 H Lab Interpretation (test cod e = 42658-1) Abnormal [facility] GLUCOSE (AUTOMATED)2023-08-23 21:30:04* Test Item Value Reference Range Interpretation Comme nts POCT GLU (test code = 1949248242) 149 mg/dL 70-110 H Lab Interpretation (test cod e = 72045-7) Abnormal [facility] GLUCOSE (AUTOMATED)2023-08-23 16:45:20* Test Item Value Reference Range Interpretation Comme nts POCT GLU (test code = 7276651962) 147 mg/dL 70-110 H Lab Interpretation (test cod e = 36728-1) Abnormal [facility] GLUCOSE (AUTOMATED)2023-08-23 12:36:56* Test Item Value Reference Range Interpretation Comme nts POCT GLU (test code = 6050282670) 131 mg/dL 70-110 H Lab Interpretation (test cod e = 03347-1) Abnormal [facility] GLUCOSE (AUTOMATED)2023-08-23 09:17:23* Test Item Value Reference Range Interpretation Comme nts POCT GLU (test code = 6503124343) 154 mg/dL 70-110 H Lab Interpretation (test cod e = 66722-3) Abnormal [facility] GLUCOSE (AUTOMATED)2023-08-23 05:03:01* Test Item Value Reference Range Interpretation Comme nts POCT GLU (test code = 8095520162) 183 mg/dL 70-110 H Lab Interpretation (test cod e = 19027-7) Abnormal [facility] Metabolic Panel (NA, K, CL, CO2, GLUCOSE, BUN, CREATININE, CA)2023-08-23 01:49:58* Test Item Value Reference Range Interpretation Comme nts NA (test code = 3474094982) 132 mmol/L 135-145 L K (test code = 4274514241) 4.1 mmol/L 3.5-5.0 CL (test code = 4217181587) 101 mmol/L 98-108 CO2 TOTAL (test code = 2763681600) 28 mmol/L 23-31 AGAP (test code = 5983712715) 3 2-16 BUN (test code = 7819962252) 17 mg/dL 7-23 GLUCOSE (test code = 1205531729) 149 mg/dL 70-110 H CREATININE (test code = 2160-0) 0.97 mg/dL 0.60-1.25 CALCIUM (test code = 3840582620) 8.4 mg/dL 8.6-10.6 L eGFR (test code = 18826-5) 91.6 mL/min/1.73m2 CKD-EPI eGFR (2020). Assuming creatinine has been stable day-to-day for at least three months, the eGFR indicates Category G1 (>= 90 mL/min/1.73 m2) Lab Interpretation (test code = 47481-9) Abnormal [facility] GLUCOSE (AUTOMATED)2023-08-23 00:43:06* Test Item Value Reference Range Interpretation Comme nts POCT GLU (test code = 4839273921) 126 mg/dL 70-110 H Lab Interpretation (test cod e = 87049-5) Abnormal [facility]ort[facility] [id number] 22:59:03* Test Item Value Reference Range Interpretation Comme nts IBRAHIMA AM (test code = 8124206780) 24.7 ug/dL 4.5-23.0 H GINA (test code = GINA) Biotin has been reported to cause a positive bias, interpret results relative to patient's use of biotin. Lab Interpretation (test code = 60269-8) Abnormal [facility]2023-08-22 21:29:10* Test Item Value Reference Range Interpretation Comme [facility] POCT GLU (test code = 0612986426) 341 mg/dL 70-110 H Lab Interpretation (test cod e = 69467-8) Abnormal [facility]ric [id number] 19:53:59* Test Item Value Reference Range Interpretation Comme nts URIC ACID (test code = 5071672044) 6.4 mg/dL 3.6-8.0 Lab Interpretation (test cod e = 57554-2) Normal [facility] (NA, K, CL, CO2, GLUCOSE, BUN, CREATININE, CA)2023-08-22 14:43:15* Test Item Value Reference Range Interpretation Comme nts NA (test code = 0653642464) 138 mmol/L 135-145 K (test code = 6617986638) 4.6 mmol/L 3.5-5.0 CL (test code = 5314135190) 102 mmol/L 98-108 CO2 TOTAL (test code = 4789140744) 28 mmol/L 23-31 AGAP (test code = 6564126702) 8 2-16 BUN (test code = 8717201908) 34 mg/dL 7-23 H GLUCOSE (test code = 6394634706) 224 mg/dL 70-110 H CREATININE (test code = 2160-0) 1.89 mg/dL 0.60-1.25 H CALCIUM (test code = 6174138838) 9.4 mg/dL 8.6-10.6 eGFR (test code = 74720-7) 41.1 mL/min/1.73m2 CKD-EPI eGFR (2020). Assuming creatinine has been stable day-to-day for at least three months, the eGFR indicates Category G3b (30 - 44 mL/min/1.73 m2) Lab Interpretation (test code = 90771-7) Abnormal [facility] [id number] 14:42:45* Test Item Value Reference Range Interpretation Comme nts CK (test code = 0627613950) 224 U/L 33-194 H Lab Interpretation (test cod e = 92857-0) Abnormal [facility]osph[facility] [id number] 12:10:01* Test Item Value Reference Range Interpretation Comme nts PHOSPHORUS (test code = 1549063537) 5.8 mg/dL 2.5-5.0 H Lab Interpretation (test cod e = 60830-9) Abnormal [facility] Metabolic Panel (NA, K, CL, CO2, GLUCOSE, BUN, CREATININE, CA)2023-08-22 04:41:19* Test Item Value Reference Range Interpretation Comme nts NA (test code = 9191682811) 124 mmol/L 135-145 L K (test code = 6508359571) 4.7 mmol/L 3.5-5.0 CL (test code = 0676767752) 93 mmol/L 98-108 L CO2 TOTAL (test code = 6788181284) 18 mmol/L 23-31 L AGAP (test code = 1761685028) 13 2-16 BUN (test code = 9033505282) 68 mg/dL 7-23 H GLUCOSE (test code = 4691336711) 116 mg/dL 70-110 H CREATININE (test code = 2160-0) 6.60 mg/dL 0.60-1.25 H CALCIUM (test code = 2918117298) 9.0 mg/dL 8.6-10.6 eGFR (test code = 93703-4) 9.2 mL/min/1.73m2 CKD-EPI eGFR (2020). Assuming creatinine has been stable day-to-day for at least three months, the eGFR indicates Category G5 (<= 14mL/min/1.73 m2) Lab Interpretation (test code = 48208-9) Abnormal [facility] PELVIS WO [id number] 02:22:05Exam: CT Abdomen and Pelvis without Contrast, [...] finding. Subacute/chronic left-sided rib fractures.Soft tissues: Unremarkable.[facility]. Metabolic Panel (33345) 2023-08-22 02:21:33* Test Item Value Reference Range Interpretation Comme nts NA (test code = 1748472953) 120 mmol/L 135-145 L K (test code = 4379607571) 4.8 mmol/L 3.5-5.0 CL (test code = 8250354209) 85 mmol/L 98-108 L CO2 TOTAL (test code = 4650957963) 21 mmol/L 23-31 L AGAP (test code = 3209075075) 14 2-16 BUN (test code = 2963814704) 70 mg/dL 7-23 H GLUCOSE (test code = 7958049685) 97 mg/dL 70-110 CREATININE (test code = 2160-0) 8.39 mg/dL 0.60-1.25 H TOTAL BILI (test code = 8711069166) 0.7 mg/dL 0.1-1.1 CALCIUM (test code = 5877574744) 8.8 mg/dL 8.6-10.6 T PROTEIN (test code = 1051156286) 7.2 g/dL 6.3-8.2 ALBUMIN (test code = 5136036346) 4.1 g/dL 3.5-5.0 ALK PHOS (test code = 4668616867) 95 U/L 34-122 ALTv (test code = 1742-6) 12 U/L 5-50 AST(SGOT) (test code = 6241858192) 24 U/L 13-40 eGFR (test code = 86424-5) 6.9 mL/min/1.73m2 CKD-EPI eGFR (2020). Assuming creatinine has been stable day-to-day for at least three months, the eGFR indicates Category G5 (<= 14mL/min/1.73 m2) Lab Interpretation (test code = 44954-1) Abnormal [facility]2024-[facility]28 02:15:32* Test Item Value Reference Range Interpretation Comme nts LIPASE (test code = 8342357983) 758 U/L 0-220 H Lab Interpretation (test cod e = 39673-9) [id number] 01:58:31* Test Item Value Reference Range Interpretation [...] g/dL 31.2-35.0 H RDW-SD (test code = 23523-4) 36.0 fL 38.5-51.6 L RDW-CV (test code = 788-0) 11.5 % 12.1-15.4 L PLT (test code = 777-3) 312 150-328 MPV (test code = 07617-1) 9.4 fL 9.8-13.0 L NRBC/100 WBC (test code = 7322339848) 0.0 0.0-10.0 NRBC x10^3 (test code = 6131059882) See_Comment [Automated message] The system which generated this result transmitted reference range: 10*3/?L. The reference range was not used to interpret this result as normal/abnormal. GRAN MAT (NEUT) % (test code = 770-8) 82.7 % IMM GRAN % (test code = 7769189462) 0.50 % LYMPH % (test code = 736-9) 6.7 % MONO % (test code = 5905-5) 9.8 % EOS % (test code = 713-8) 0.2 % BASO % (test code = 706-2) 0.1 % GRAN MAT x10^3(ANC) (test code = 1442891793) 12.19 10*3/uL 1.99-6.95 H IMM GRAN x10^3 (test code = 1896539224) 0.08 10*3/uL 0.00-0.06 H LYMPH x10^3 (test code = 731-0) 0.99 10*3/uL 1.09-3.23 L MONO x10^3 (test code = 742-7) 1.44 10*3/uL 0.36-1.02 H EOS x10^3 (test code = 711-2) 0.03 10*3/uL 0.06-0.53 L BASO x10^3 (test code = 704-7) 0.01-0.09 Lab Interpretation (test code = 12192-2) Abnormal [place] [facility]23-08-16 22:02:57* Test Item Value Reference Range Interpretation Comme nts POCT GLU (test code = 4437586841) 112 mg/dL 70-110 H Lab Interpretation (test cod e = 34311-6) Abnormal [facility] GLUCOSE (AUTOMATED)2023-08-16 16:59:58* Test Item Value Reference Range Interpretation Comme nts POCT GLU (test code = 9316447784) 127 mg/dL 70-110 H Lab Interpretation (test cod e = 60265-9) Abnormal [facility] GLUCOSE (AUTOMATED)2023-08-16 12:48:23* Test Item Value Reference Range Interpretation Comme nts POCT GLU (test code = 6145777409) 175 mg/dL 70-110 H Lab Interpretation (test cod e = 61694-2) Abnormal [facility] GLUCOSE (AUTOMATED)2023-08-16 02:07:02* Test Item Value Reference Range Interpretation Comme nts POCT GLU (test code = 5023318638) 195 mg/dL 70-110 H Notified Provide r Lab Interpretation (test code = 68581-7) Abnormal [facility] GLUCOSE (AUTOMATED)2023-08-15 21:36:15* Test Item Value Reference Range Interpretation Comme nts POCT GLU (test code = 3162998411) 284 mg/dL 70-110 H Lab Interpretation (test cod e = 77230-9) Abnormal [facility] GLUCOSE (AUTOMATED)2023-08-15 16:56:02* Test Item Value Reference Range Interpretation Comme nts POCT GLU (test code = 0102725512) 74 mg/dL 70-110 Lab Interpretation (test cod e = 70255-3) Normal [facility] GLUCOSE (AUTOMATED)2023-08-15 13:12:34* Test Item Value Reference Range Interpretation Comme nts POCT GLU (test code = 6580872985) 258 mg/dL 70-110 H Lab Interpretation (test cod e = 02288-1) Abnormal [facility] GLUCOSE (AUTOMATED)2023-08-15 04:04:43* Test Item Value Reference Range Interpretation Comme nts POCT GLU (test code = 5626031214) 120 mg/dL 70-110 H Lab Interpretation (test cod e = 53556-3) [facility]normal [facility]cosylated Hemoglobin (A1C)2023-08-15 01:17:32* Test Item Value Reference Range Interpretation Comme nts HGB A1C (test code = 4548-4) 8.9 % 4.0-5.7 H GINA (test code = GINA) Reference RangesNormal: <5.7%Prediabetes: 5.7 - 6.4%Diabetes: > 6.5% Lab Interpretation (test code = 07762-8) [facility]normal [facility]anoBeta Cviqqtr-[id number] 01:00:45* Test Item Value Reference Range Interpretation Comme nts BOH (test code = 7347324172) 0.5 mmol/L GINA (test code = GINA) Normal Ranges: ? ? Nonfasting ? Less than 0.1 mmol/L ? ? Overnight Fast ? ? ? Less than 0.4 mmol/L ? ? Fasting (1-2 weeks) ?6-8 mmol/L Test developed and characteristics determined by [facility] Laboratory Services. [facility]anoCreatine [id number] 23:07:16* Test Item Value Reference Range Interpretation Comme nts CK (test code = 4492699737) 148 U/L 33-194 Lab Interpretation (test cod e = 88939-2) Normal [facility]anoTROPONIN [id number] 22:18:16* Test Item Value Reference Range Interpretation Comme nts TROPONIN I (test code = 0552294098) 0.081 ng/mL <=0.034 H GINA (test code [...] of biotin. Lab Interpretation (test code = 51880-0) Abnormal [facility] PlanoN-TERMINAL [id number] 22:15:55* Test Item Value Reference Range Interpretation Comme [facility] NT-proBNP (test code = 62340-5) 999 pg/mL <=125 H GINA (test code = GINA) Positive: Heart Failure Likely Lab Interpretation (test code = 07759-0) Abnormal [facility]anoMagnesium2024-04-20 22:07:17* Test Item Value Reference Range Interpretation Comme nts MAGNESIUM (test code = 4134523058) 1.8 mg/dL 1.7-2.4 Lab Interpretation (test cod e = 74761-0) Normal [facility]anoCOMP. METABOLIC PANEL (09225)2023 22:06:57* Test Item Value Reference Range Interpretation Comme nts NA (test code = 5419589237) 130 mmol/L 135-145 L K (test code = 3852681505) 3.4 mmol/L 3.5-5.0 L CL (test code = 4174747685) 93 mmol/L 98-108 L CO2 TOTAL (test code = 3627526898) 26 mmol/L 23-31 AGAP (test code = 7728327665) 11 2-16 BUN (test code = 9658366140) 39 mg/dL 7-23 H GLUCOSE (test code = 7493406787) 142 mg/dL 70-110 H CREATININE (test code = 2160-0) 2.40 mg/dL 0.60-1.25 H TOTAL BILI (test code = 9796893243) 1.2 mg/dL 0.1-1.1 H CALCIUM (test code = 3234452463) 9.1 mg/dL 8.6-10.6 T PROTEIN (test code = 2173560348) 7.7 g/dL 6.3-8.2 ALBUMIN (test code = 9540401941) 4.2 g/dL 3.5-5.0 ALK PHOS (test code = 3255658678) 102 U/L 34-122 ALTv (test code = 1742-6) 16 U/L 5-50 AST(SGOT) (test code = 9961785550) 26 U/L 13-40 eGFR (test code = 70986-5) 30.9 mL/min/1.73m2 CKD-EPI eGFR (2020). Assuming creatinine has been stable day-to-day for at least three months, the eGFR indicates Category G3b (30 - 44 mL/min/1.73 m2) Lab Interpretation (test code = 08084-5) Abnormal [facility]anoPhosphorus2024-04-20 22:06:37* Test Item Value Reference Range Interpretation Comme nts PHOSPHORUS (test code = 4952827949) 4.9 mg/dL 2.5-5.0 Lab Interpretation (test cod e = 30685-4) Normal [facility]anoLIPASE2024-04-20 22:06:17* Test Item Value Reference Range Interpretation Comme nts LIPASE (test code = 8323179370) 204 U/L 0-220 Lab Interpretation (test cod e = 53929-5) Normal [facility] WITH [id number] 21:54:56* Test Item Value Reference Range Interpretation [...] g/dL 31.2-35.0 H RDW-SD (test code = 26771-5) 38.1 fL 38.5-51.6 L RDW-CV (test code = 788-0) 11.8 % 12.1-15.4 L PLT (test code = 777-3) 235 150-328 MPV (test code = 55029-0) 11.1 fL 9.8-13.0 NRBC/100 WBC (test code = 5366553413) 0.0 0.0-10.0 NRBC x10^3 (test code = 5086923508) See_Comment [Automated message] The system which generated this result transmitted reference range: 10*3/?L. The reference range was not used to interpret this result as normal/abnormal. GRAN MAT (NEUT) % (test code = 770-8) 80.3 % IMM GRAN % (test code = 3933971661) 0.60 % LYMPH % (test code = 736-9) 8.7 % MONO % (test code = 5905-5) 10.0 % EOS % (test code = 713-8) 0.2 % BASO % (test code = 706-2) 0.2 % GRAN MAT x10^3(ANC) (test code = 3055482099) 10.18 10*3/uL 1.99-6.95 H IMM GRAN x10^3 (test code = 8936670988) 0.07 10*3/uL 0.00-0.06 H LYMPH x10^3 (test code = 731-0) 1.11 10*3/uL 1.09-3.23 MONO x10^3 (test code = 742-7) 1.27 10*3/uL 0.36-1.02 H EOS x10^3 (test code = 711-2) 0.03 10*3/uL 0.06-0.53 L BASO x10^3 (test code = 704-7) 0.03 10*3/uL 0.01-0.09 Lab Interpretation (test code = 60114-8) Abnormal [facility]anoXR CHEST 1 [id number] 21:49:58EXAM: XR CHEST 1 2023 4:38 PM HISTORY: 58 years-old Male with r/o infilrate . TECHNIQUE: Portable AP view of the chest. COMPARISON: 04/21/2023 FINDINGS: Lines and tubes: None. Cardiomediastinal: The cardiomediastinal silhouette is unremarkable. Lungs and pleura: The lungs are clear. No focal consolidation,pneumothorax, or pleural effusion is seen. Included osseous structures show no acuteabnormality.[facility]anoCT ABDOMEN PELVIS W [id number] 21:45:03EXAM: CT ABDOMEN AND PELVIS WITH CONTRAST [...] sacroiliac jointsand hips ispresent.[facility] PlanoCT TRAUMA HEAD WO [id number] 21:38:37FULL RESULT: Examination: CT TRAUMA HEAD WO CONTRAST on 2023 4:16 PM Clinical Indication: Headache, hypertensive Comparison: None Technique: Noncontrast imaging was obtained from base to vertex.Findings: The sulci and ventricles were unremarkable. There may be subtlewhite matter microvascularischemic changes, notably in the anteriorperiventricular region, but there is no evidence for hemorrhage or otherclearly acute intracranial process.[facility] PlanoLalaic Acid Whole [id number] 21:30:25* Test Item Value Reference Range Interpretation Comme [facility] LACTIC ACID (test code = 1235709491) 1.58 mmol/L 0.50-2.20 Lab Interpretation (test cod e = 15247-5) Normal [facility] Venous Blood [id number] 21:30:25 * Test Item Value Reference Range Interpretation Comme nts PH (test code = 6903602419) 7.34 7.32-7.42 PCO2 NOY (test code = 6623309251) 45 41-51 PO2 NOY (test code = 1992882035) 24 25-40 L HCO3 NOY (test code = 1608951098) 24 24-28 AC VBE(BEAKER) (test code = 5064175250) -1.9 mEq/L Lab Interpretation (test cod e = 51699-5) Abnormal [facility] GLUCOSE (AUTOMATED)2023 20:26:17* Test Item Value Reference Range Interpretation Comme nts POCT GLU (test code = 6030600293) 165 mg/dL 70-110 H Lab Interpretation (test cod e = 58060-5) Abnormal [facility] GLUCOSE(AGE >30DAYS)2023 20:26:00* Test Item Value Reference Range Interpretation Comme nts POCT Glu (age>30days) (test code = 3342) 165 mg/dL 70-110 A Lab Interpretation (test cod e = 03799-4) [facility]23 18:15:28* Test Item Value Reference Range Interpretation Comme nts POCT GLU (test code = 4367657705) 218 mg/dL 70-110 H Lab Interpretation (test cod e = 07440-6) [facility]2023-[facility]-23 15:35:23* Test Item Value Reference Range Interpretation Comme nts POCT GLU (test code = 6105983346) 186 mg/dL 70-110 H Lab Interpretation (test cod e = 86990-4) [facility]normal [facility]2023-04-23 02:57:57* Test Item Value Reference Range Interpretation Comme nts POCT GLU (test code = 9483766378) 82 mg/dL 70-110 Lab Interpretation (test cod e = 73697-6) Normal [facility] GLUCOSE (AUTOMATED)2023-04-23 00:33:51* Test Item Value Reference Range Interpretation Comme nts POCT GLU (test code = 7716101249) 181 mg/dL 70-110 H Lab Interpretation (test cod e = 87171-4) [facility]2023-04-22 22:54:22* Test Item Value Reference Range Interpretation Comme nts POCT GLU (test code = 3215408211) 127 mg/dL 70-110 H Lab Interpretation (test cod e = 27812-4) [facility]normal [facility]2023-04-22 20:37:54* Test Item Value Reference Range Interpretation Comme nts POCT GLU (test code = 8106284431) 230 mg/dL 70-110 H Lab Interpretation (test cod e = 27553-7) [facility]2023-04-22 17:46:23* Test Item Value Reference Range Interpretation Comme nts POCT GLU (test code = 6358328220) 144 mg/dL 70-110 H Lab Interpretation (test cod e = 88798-8) [facility]normal [facility]2023-04-22 13:42:26* Test Item Value Reference Range Interpretation Comme nts POCT GLU (test code = 4002649780) 229 mg/dL 70-110 H Lab Interpretation (test cod e = 77079-7) Abnormal [facility] GLUCOSE (AUTOMATED)2023-04-22 03:33:49* Test Item Value Reference Range Interpretation Commtito garcía POCT GLU (test code = 6166042403) 222 mg/dL 70-110 H Lab Interpretation (test cod e = 11702-9) Abnormal [facility] GLUCOSE (AUTOMATED)2023-04-22 01:36:03* Test Item Value Reference Range Interpretation Commtito garcía POCT GLU (test code = 3544541927) 282 mg/dL 70-110 H Lab Interpretation (test cod e = 96865-3) Abnormal [facility]anoEchocardiogram dobutamine stress test 2023-04-21 22:26:30* Test Item Value Reference Range Interpretation Comme raquel Height (test code = 7857780209) 63 in Weight (test code = 2522817510) 130 lbs Systolic BP (test code = 4558451061) 122 mmHg Diastolic BP (test code = 1712030095) 81 mmHg Heart Rate (test code = 7907236146) 105 bpm BSA (test code = 1787720494) 1.[address] Depresion (mm) (test code = 6844901049) [address] Depression (mm) (test code = 6574562522) 0 mm Radiology Study observation (narrative) (test code = 09435-0) GINA (test code = GINA) Table formatting [...] is globally hyperkinetic. [facility]anoTransthoracic echo (TTE)2023-04-21 18:05:03* Test Item Value Reference Range Interpretation Comme nts Height (test code = 6369001879) 63 in Weight (test code = 6975452818) 130 lbs Systolic BP (test code = 4870062678) 114 mmHg Diastolic BP (test code = 6090045239) 75 mmHg Heart Rate (test code = 3933736381) 98 bpm BSA (test code = 4228668575) 1.61 m2 LVIDD (test code = 1947721421) 4.00 cm Left Ventricular End Diastolic Volume by Teichholz Method (test code = 9609808) 70.0 mL IVS (test code = 0635393820) 1.07 cm Interventricular Septum Diastolic Thickness by 2D (test code = 4893027) 1.07 cm LVPWD (test code = 5186857283) 1.05 cm PW (test code = 6113324042) 1.05 cm 0.6-1.1 EF(Teich) (test code = 8631472341) 62.60 % LVIDS (test code = 8233143908) 2.70 cm Left Ventricular End Systolic Volume by Teichholz Method (test code = 1530366) 26.2 mL FS (test code = 7811294056) 33 % EF - 2D (test code = 02142516) 62.60 % Ao root diam (test code = 8927043280) 3.70 cm Aortic root (test code = 1634263850) 3.7 cm Ao root annulus (test code = 8328784313) 3.7 cm LA size (test code = 4202884413) 3.2 cm LVOT diameter (test code = 9939395064) 2.08 cm LVOT area (test code = 4996811207) 3.40 cm2 MV Peak E Nima (test code = 3447957256) 48.3 cm/s E wave decelartion time (test code = 0745231445) 0.15 s MV Peak A Nima (test code = 5499444476) 74.4 cm/s E/A ratio (test code = 6131669094) 0.65 ratio MV Prop V (test code = 9393739391) 21.20 cm/s LAV(MOD-sp4) (test code = 1004166527) 35.30 mL Tapse (test code = 5974427517) 1.73 cm LVOT stroke volume (test code = 4437132380) 45.20 cm3 LVOT peak nima (test code = 1391279732) 79.0 cm/s LVOT mn grad (test code = 8088815146) 1.3 mmHg AV LVOT peak gradient (test code = 9724213304) 2.50 mmHg LVOT peak VTI (test code = 5292271846) 13.2 cm LV V1 mean (test code = 6117458526) 52.90 cm/s Ao peak nima (test code = 7524765831) 83.8 cm/s AV area peak nima (test code = 6359748597) 3.2 cm2 Ao max PG (test code = 9738972116) 2.80 mm[Hg] AV peak gradient (test code = 8832831767) 2.8 mmHg LA Volume Index (BP) (test code = 5067408265) 25.9 mL/m2 LA volume (BP) (test code = 3326016454) 41.8 mL LAV(MOD-sp2) (test code = 6439551743) 40.90 mL A4C EF (test code = 9613528758) 54.40 % EF(sp4-el) (test code = 5530380127) 55.00 % SV(MOD-sp4) (test code = 0845916435) 53.10 mL SV(sp4-el) (test code = 5856178615) 55.60 mL Radiology Study observation (narrative) (test code = 32939-0) GINA (test code = GINA) ?Left?Ventricle: Left [...] enhancing agent used. Patient exhibited sinus rhythm. [facility] GLUCOSE (AUTOMATED)2023-04-21 17:48:26* Test Item Value Reference Range Interpretation Comme nts POCT GLU (test code = 9415418370) 198 mg/dL 70-110 H Lab Interpretation (test cod e = 86968-9) Abnormal [facility] CHE[facility] 1 [id number] 15:12:07EXAM: XR CHEST 1 VW HISTORY: NSTEMI COMPARISON: None. FINDINGS: Small bandlike densities in the left midlung have more the appearance ofatelectasis than pneumonia. The lungs are well expanded and clearotherwise. The heart and great vessels are normal except for calcium in thearch of the aorta.[facility] GLUCOSE (AUTOMATED)2023-04-21 09:39:57* Test Item Value Reference Range Interpretation Comme nts POCT GLU (test code = 4278810226) 243 mg/dL 70-110 H Lab Interpretation (test cod e = 70144-1) Abnormal [facility] PlanoFerritin [id number] 07:28:27* Test Item Value Reference Range Interpretation Comme nts FERRITIN (test code = 2075177781) 76.3 ng/mL 18.0-464.0 GINA (test code = GINA) Biotin has been reported to cause a negative bias, interpret results relative to patient's use of biotin. Lab Interpretation (test code = 89647-8) Normal [facility]anoGlycosylated Hemoglobin (A1C)2023-04-21 07:25:47* Test Item Value Reference Range Interpretation Comme nts HGB A1C (test code = 4548-4) 12.6 % 4.0-5.7 H GINA (test code = GINA) Reference RangesNormal: <5.7%Prediabetes: 5.7 - 6.4%Diabetes: > 6.5% Lab Interpretation (test code = 46458-8) Abnormal [facility] PlanoThyroid Stimulating [id number] 07:24:07 * Test Item Value Reference Range Interpretation Comme nts TSH (test code = 1389797687) 2.56 See_Comment [Automated messa ge] The system which generated this result transmitted reference range: 0.45 - 4.70 mIU/L. The reference range was not used to interpret this result as normal/abnormal. Lab Interpretation (test code = 17637-3) Normal [facility] PlanoPhosphorus2023-12-27 06:52:06* Test Item Value Reference Range Interpretation Comme nts PHOSPHORUS (test code = 2207419949) 3.2 mg/dL 2.5-5.0 Lab Interpretation (test cod e = 94683-9) Normal [facility] PlanoCritical [id number] 02:54:15NServando chin MD ? ? 04/20/2023 ?8:54 [...] treating other patients. [facility]anoTrhumboldt general hospitaldian [id number] 02:30:18* Test Item Value Reference Range Interpretation Comme nts TROPONIN I (test code = 3702024231) 0.154 ng/mL <=0.034 H GINA (test code [...] of biotin. Lab Interpretation (test code = 79302-7) Abnormal [facility] PlanoETHANOL2023-12-27 02:24:46 ALCOHOL<10mg/dL04/20/2023 8:24 PM [facility]10 Acvpoepl43-651 Toxic>100 Depression of FIELD MECHANICAL METER TESTER>400 Fatalities ReportedUnCHRISTUS Spohn Hospital BeevilleCOMP. METABOLIC PANEL (05775)2023-04-21 02:19:15* Test Item Value Reference Range Interpretation Comme nts NA (test code = 9103662552) 129 mmol/L 135-145 L K (test code = 8540186050) 3.5 mmol/L 3.5-5.0 CL (test code = 0570595803) 94 mmol/L 98-108 L CO2 TOTAL (test code = 3902008237) 28 mmol/L 23-31 AGAP (test code = 6759830340) 7 2-16 BUN (test code = 6871102929) 26 mg/dL 7-23 H GLUCOSE (test code = 1185968818) 314 mg/dL 70-110 H CREATININE (test code = 5312723787) 0.92 mg/dL 0.60-1.25 TOTAL BILI (test code = 0233366303) 0.8 mg/dL 0.1-1.1 CALCIUM (test code = 9160994709) 8.5 mg/dL 8.6-10.6 L T PROTEIN (test code = 8992888167) 6.0 g/dL 6.3-8.2 L ALBUMIN (test code = 3959281885) 3.3 g/dL 3.5-5.0 L ALK PHOS (test code = 1043310765) 95 U/L 34-122 ALTv (test code = 1742-6) 23 U/L 5-50 AST(SGOT) (test code = 7757672625) 30 U/L 13-40 eGFR (test code = 51532-1) 98.2 mL/min/1.73m2 CKD-EPI eGFR (2020). Assuming creatinine has been stable day-to-day for at least three months, the eGFR indicates Category G1 (>= 90 mL/min/1.73 m2) Lab Interpretation (test code = 98729-4) Abnormal [facility] WITH [id number] 02:03:54* Test Item Value Reference Range Interpretation [...] g/dL 31.2-35.0 H RDW-SD (test code = 77765-0) 36.2 fL 38.5-51.6 L RDW-CV (test code = 788-0) 11.6 % 12.1-15.4 L PLT (test code = 777-3) 178 See_Comment [Automated messa ge] The system which generated this result transmitted reference range: 150 - 328 10*3/?L. The reference range was not used to interpret this result as normal/abnormal. MPV (test code = 20462-9) 10.9 fL 9.8-13.0 NRBC/100 WBC (test code = 4855521728) 0.0 See_Comment [Automated Trigence ssage] The system which generated this result transmitted reference range: 0.0 - 10.0 /100 WBCs. The reference range was not used to interpret this result as normal/abnormal. NRBC x10^3 (test code = 8295167749) See_Comment [Automated [employer] ge] The system which generated this result transmitted reference range: 10*3/?L. The reference range was not used to interpret this result as normal/abnormal. GRAN MAT (NEUT) % (test code = 770-8) 81.3 % IMM GRAN % (test code = 6678698753) 0.30 % LYMPH % (test code = 736-9) 10.5 % MONO % (test code = 5905-5) 7.6 % EOS % (test code = 713-8) 0.1 % BASO % (test code = 706-2) 0.2 % GRAN MAT x10^3(ANC) (test code = 2706217212) 9.55 10*3/uL 1.99-6.95 H IMM GRAN x10^3 (test code = 4269096693) 0.04 10*3/uL 0.00-0.06 LYMPH x10^3 (test code = 731-0) 1.23 10*3/uL 1.09-3.23 MONO x10^3 (test code = 742-7) 0.89 10*3/uL 0.36-1.02 EOS x10^3 (test code = 711-2) 0.06-0.53 L BASO x10^3 (test code = 704-7) 0.01-0.09 Lab Interpretation (test code = 07722-1) Abnormal [facility]anoPOCT GL[facility]SE (AUTOMATED)2023-04-21 01:55:51* Test Item Value Reference Range Interpretation Comme [facility] POCT GLU (test code = 0623770635) 408 mg/dL 70-110 H Lab Interpretation (test cod e = 98466-2) Abnormal [facility] PlanoCOMPREHENSIVE METABOLIC [id number] 05:07:51* Test Item Value Reference Range Interpretation Comme [facility] GLUCOSE (test code = 2217) 224 MG/DL 70-99 H BUN (test code = 2208) 22 MG/DL 6-20 H CREATININE (test code = 2214) 0.71 MG/DL 0.80-1.40 L eGFR (2020 CKD-EPI) (test code = 54025) 109 ML/MIN/1.73 >60 CALC BUN/CREAT (test code [...] code = 2219) 24 U/L 5-50 LIPID [id number] 05:07:51* Test Item Value Reference Range Interpretation Comme nts CHOLESTEROL (test code = 2210) 174 MG/DL <200 TRIGLYCERIDES (test code = 2232) 99 MG/DL <150 HDL CHOLESTEROL (test code = 2220) 57 MG/DL >39 CALC LDL CHOL (test code = 7) 98 MG/DL <100 NOTE: CALCULATED LDL IS BASED ON SIMI-OLMSTEAD METHOD WHICHINCLUDES ADJUSTABLE TRIGLYCERIDE:VLDL CHOLESTEROL RATIO.THIS FACTOR VARIES BY MEASURED TRIGLYCERIDE AND NON-HDLCHOLESTEROL CONCENTRATIONS WITH INCREASED CALCULATED LDL SEENIN HIGHER TRIGLYCERIDE OR LOWER NON-HDL SPECIMENS. FOR MOREINFORMATION, SEE CLIENT ANNOUNCEMENT AT [email or web address] RISK RATIO LDL/HDL (test code = 2238) 1.72 RATIO <3.55 PSA, [id number] 05:07:10* Test Item Value Reference Range Interpretation Comme nts PSA, TOTAL (test code = 2606) 19.70 NG/ML See_Comment H NOTE: Methodolog y is Ashley Jasmina Electrochemiluminescence Immunoassay traceable to WHO reference standard 96/760. UNLESS OTHERWISE INDICATED, ALL TESTING PERFORMED [facility]LIN[facility] [address] [place] [address] [place]US[place] EDGER: DUSTIN COLMENARES M.D. CLIA NUMBER [id number] [place]. [id number] [Automated message] The system which generated this result transmitted reference range: <=4.00. The reference range was not used to interpret this result as normal/abnormal. HEMOGLOBIN [id number] 02:46:58* Test Item Value Reference Range Interpretation Comme nts HEMOGLOBIN A1c (test code = 28646) 11.0 % 4.2-5.6 H [employer] GUIDELINES FOR HGB A1C: [...] OR LABORATORY CONSULTATION. CBC W/AUTO DIFF WITH [id number] 02:32:39* Test Item Value Reference Range Interpretation [...] 0.00-0.10 ABS NUCLEATED RBCS (test code = 51711) 0.00 K/UL 0.00-0.11 Consult Notes Date/Time Note [...] when jensen is moved. COMMUNICATION Primary Language: Bermudian Able to Verbalize needs: Yes Vision:good; no [...] Minutes: 20 min Jesica Murphy,PT Tx License: [id number] Required Components in Determining Evaluation Level History: No personal factors or comorbidities: No (14813) 1-2 personal factors and/or comorbidities: Yes (15125) 3 or more personal factors and/ or comorbidities: No (92568) Examination of Body System(s) Addressing 1-2 elements: Yes (58065) Addressing a total of 3 or more elements: No (97870) Addressing a total of 4 or more elements: No (46964) Clinical Presentation Stable: Yes (73159) Evolving: No (77189) Unstable: No (68249) Clinical Decision Making (Complexity) Low: No (43972) Moderate: Yes (59439) High: No (43354) Jesica Murphy PT [facility] 2023-08-15 10:01:34 Associated Order(s): CONSULT CARDIOLOGY [facility] Cardiology Consult Note Patient: Saturnino Shah Date [...] of Onset No Significant Medical Problems Mother [place] (myocardial infarction) Father SOCIAL HISTORY Social History [...] 25 mL, 25 mL, Slow IV Push, PRDonnie Corona David, DO glucagon (GLUCAGEN DIAGNOSTIC KIT) injection 1 mg, 1 mg, Intramuscular, PRN, Jerry Fields DO Sliding Scale Insulin - Lispro (HumaLOG), , Subcutaneous, TID MEALS+NINO, Jerry Fields, DO, 4 Units at 08/15/23 0938 REVIEW [...] specified complication Elevated troponins: Likely type II [place] in the setting of underlying ELIEZER/elevated blood [...] per primary team. Last Two A1C Results ([facility], PO[facility], [facility]) Recent Labs 04/20/23195408/14/23 1547 HGBA1C [...] feel free to call our office at [phone]. I would be happy to be of further assistance for Saturnino Shah wellbeing. Voice recognition software has been used to create portions of this document. An attempt to proofread has been made to minimize errors. Please do not hesitate to call with any questions. Benja Rivera MD Turbo Electric Operator, Division of Cardiology [facility] 2023-04-21 08:46:48 Associated Order(s): CONSULT ENDOCRINOLOGY Endocrinology Consult Note Consultation requested by: Service: White team Reason for Consultation: Diabetes Date of Service: 04/21/23 HPI 57 year old male with a PMH of HTN, T2DM, Fmhx premature CAD who presented with complaints of polyuria and weakness at [facility] ER. Patient transferred to [facility] for further work up. Endocrinology consulted for diabetes management Diabetes Type and year diagnosed: 2011, type 2 Diabetes complications: none Hx of DM regimen: no meds for 3 years Compliance: - BG monitoring? - Hypoglycemia hx: no Hypoglycemia unawareness? no Symptoms of hyperglycemia: polyuria Living situation and support: homeless, lives with different relatives Diabetes doctor: PCP in [place], has not seen for few years Family hx of diabetes: no HX of glucocorticoid use: no HX of transfusions or EPO in last 6 months: no PAST MEDICAL HISTORY Past Medical History: Diagnosis Date HTN (hypertension) Uncontrolled diabetes mellitus with hyperglycemia History reviewed. No pertinent surgical history. Family History Problem Relation Age of Onset No Significant Medical Problems Mother [place] (myocardial infarction) Father Social History Tobacco Use [...] with complaints of polyuria and weakness at [facility] ER. Patient transferred to [facility] for further work up. Endocrinology consulted for [...] Cabrera.. Austin Amaro. Endocrinology Fellow, PGY 5 LIANCE TECHNICIAN Associated attestation - Rita Cabrera MD - 04/22/2023 2:11 PM COMPLIANCE TECHNICIAN Endocrinology Faculty Attestation: I evaluated this patient's progress on 04/21/[address] Amaro note as written and revised. I actively participated in the decision-making process. Please see the resident's note for additional details that includes pertinent addendums I made directly in the note during revision. Rita Cabrera MD Tur[employer] Operator Division of Endocrinology IM-ENDOCRINOLOGY,DIABET ES & METABOLISM [facility] - Health History and Physical Notes Date/Time Note Provider Source 2023-08-21 22:53:53 [facility] Hospitalist Admission H&P Date of Service: [...] consulted. Patient was given the application for [employer] on last admission and will need to [...] of Onset No Significant Medical Problems Mother [place] (myocardial infarction) Father SOCIAL HISTORY Social History [...] Tobacco user?: NO Patient will require observation [facility] was verified during stay Lyubov Banda MD [facility] 2023 22:58:21 MEDICINE [facility] ADMIT H&P Date of Service: 2023 CHIEF [...] of Onset No Significant Medical Problems Mother [place] (myocardial infarction) Father ALLERGIES No Known Allergies [...] Status: Presumed Full Code T [facility] EMERGENCY PHYSICIAN STAFF [facility] 2023-04-21 00:39:12 [facility] Admit H&P PCP: Erik Louie Jr Date of Service: 04/20/2023 CHIEF COMPLAINT: Polyuria HISTORY OF PRESENT ILLNESS Saturnino Shah is a 57 year old male with a PMH of HTN, T2DM, Fmhx premature CAD who presented with complaints of polyuria and weakness at [facility] ER. Patient transferred to [facility] for further work up. Patient reports that [...] or drug use. Family history significant for [place] in father in his 40s. Currently not [...] use drugs. Family history: family history includes [place] (myocardial infarction) in his father; No Significant [...] help with resources. Plan: - Admit to [facility] - Trend Troponin to peak [...] Internal Medicine Department PGY 2, [place] Team LIANCE TECHNICIAN Associated attestation - Bret Banda MD - 04/21/2023 2:47 PM COMPLIANCE TECHNICIAN I reviewed patient's chart, vitals, lab work, current medications and other diagnostic studies. I saw and examined the patient today and agree with the detailed note. I actively participated in the decision-making process. Bret Banda MD [employer] Electric Operator Division of Cardiology [facility]
[2024-05-12] MEDS ORDERED: ONDANSETRON 4 MG/2 ML VIAL ONE (02:27)
[2024-05-12] MEDS ORDERED: ACETAMINOPHEN 500 MG TAB ONE (02:27)
[2024-05-12] MEDS ORDERED: NA CHLORIDE 0.9% 1,000 ML ONE ×2 (02:27→04:25)
[2024-05-12] MEDS ORDERED: KETOROLAC 30 MG/ML INJ ONE (02:27)
[2024-05-12 03:11] LABS: Absolute Basophils 0.1 K/uL (0-0.5); Absolute Eosinophils 0.2 K/uL (0-0.5); Absolute Lymphocytes (CBC) 1.3 K/uL (0.7-4.9); Absolute Monocytes 0.8 K/uL (0.1-1.3); Absolute Neutrophil 7.6 K/uL (1.8-8.0); Basophils % 0.5 % (0-1.3); Eosinophils % 1.6 % (0-4.4); Hematocrit 32.8 % (39.6-49.0); Hemoglobin 11.5 g/dL (13.6-17.9); Lymphocytes % 12.8 % (15.3-44.8); MCH 30.7 pg (27.0-35.0); MCHC 35.1 g/dL (32.0-36.0); MCV 87.5 fL (80-100); Monocytes % 7.9 % (3.3-12.3); Neutrophils % 77.2 % (41.7-73.7); Platelets 284 thou/uL (152-406); RBC Red Blood Cell Count 3.75 M/uL (4.33-5.43)
[2024-05-12 03:23] LABS: Albumin 3.1 g/dL (3.4-5.0); Albumin/Globulin Ratio 0.8 (1.1-1.8); Anion Gap 12.6 mEq/L (5.0-15.0); Bilirubin Total 0.2 mg/dL (0.2-1.0); Globulin 3.9 g/dL (2.3-3.5); Potassium 3.6 mEq/L (3.5-5.1)
[2024-05-12] MEDS ORDERED: glipiZIDE 5 MG TAB ONE (04:34)
[2024-05-12] MEDS ORDERED: IBUPROFEN 400 MG TAB ONE (06:41)
[2024-05-12] MEDS ORDERED: AZITHROMYCIN 250 MG TAB ONE (06:42)
--- NOTE | 2024-05-12 06:44 | EDPHYS ---
Physician Documentation [facility] Name: Johnnie Maldonado Age: 58 yrs Sex: Male : 1965 Arrival Date: 05/12/2024 Time: 01:03 Bed 14 Private MD: ED Physician Kolby Parham HPI: 05/12 01:07 This 58 yrs old Male presents to ER via Unassigned with complaints of Nausea, sp4 Sore Throat. 06:39 58-year-old male who is currently homeless and has history of uncontrolled diabetes sp4 presents with acute onset of sore throat and dizziness. Patient states his diabetes is uncontrolled.. Historical: - Allergies: 01:35 No Known Allergies; lg3 - Home Meds: 01:35 metformin 1,000 mg Oral tablet 1 tab daily [Active]; lg3 - PMHx: 01:35 diabetes mellitus; Hypertensive disorder; raynaud's; Urinary incontinence; lg3 - PSHx: 01:35 right arm; lg3 - Immunization history:: Adult Immunizations up to date. - Infectious Disease History:: Denies. - Social history:: Smoking status: Patient denies any tobacco usage or history of. Patient/guardian denies using alcohol, street drugs. - Family history:: not pertinent. ROS: 06:39 Constitutional: Negative for fever, chills, and weight loss, sp4 06:39 All other systems are negative, Exam: 06:39 Constitutional: This is a well developed, well nourished patient who is awake, alert, sp4 and in no acute distress. Head/Face: Normocephalic, atraumatic. Eyes: Pupils equal round and reactive to light, extra-ocular motions intact. Lids and lashes normal. Conjunctiva and sclera are not injected. Cornea within normal limits. Periorbital areas with no swelling, redness, or edema. ENT: Nares patent. No nasal discharge, no septal abnormalities noted. Tympanic membranes are normal and external auditory canals are clear. Oropharynx with no redness, swelling, or masses, exudates, or evidence of obstruction, uvula midline. Mucous membranes moist. Neck: Trachea midline, no thyromegaly or masses palpated, and no cervical lymphadenopathy. Supple, full range of motion without nuchal rigidity, or vertebral point tenderness. Chest/axilla: Normal chest wall appearance and motion. Nontender with no deformity. No lesions are appreciated. Cardiovascular: Regular rate and rhythm with a normal S1 and S2. No gallops, murmurs, or rubs. Normal PMI, no JVD. No pulse deficits. Respiratory: Lungs have equal breath sounds bilaterally, clear to auscultation and percussion. No rales, rhonchi or wheezes noted. No increased work of breathing, no retractions or nasal flaring. Abdomen/GI: Soft, with normal bowel sounds. No distension or tympany. No guarding or rebound. No evidence of tenderness throughout. Back: No spinal tenderness. No costovertebral tenderness. Skin: Warm, dry with normal turgor. Normal color with no rashes, no lesions, and no evidence of cellulitis. MS/ Extremity: Pulses equal, no cyanosis. Neurovascular intact. Full, normal range of motion. Neuro: Awake and alert, GCS 15, oriented to person, place, time, and situation. Cranial nerves II-XII grossly intact. Motor strength 5/5 in all extremities. Sensory grossly intact. Psych: Awake, alert, with orientation to person, place and time. Behavior, mood, and affect are within normal limits Vital Signs: 01:31 BP 166 / 89; Pulse 97; Resp 17 S; Temp 97.6(TE); Pulse Ox 98% on R/A; Weight 54.43 kg lg3 (R); Height 5 ft. 3 in. (R); Pain 0/10; 02:00 BP 166 / 89; Pulse 97; Resp 17; Temp 97.6; Pulse Ox 98% on R/A; rg5 03:50 BP 152 / 101; Pulse 107; Resp 17; Pulse Ox 96% on R/A; rg5 04:37 BP 170 / 97; Pulse 102; Resp 18; Temp 98(O); Pulse Ox 99% on R/A; rg5 05:10 BP 168 / 98; Pulse 98; Resp 17; Pulse Ox 97% on R/A; Pain 0/10; rg5 05:36 BP 149 / 87; Pulse 100; Resp 17; Pulse Ox 96% on R/A; Pain 0/10; rg5 06:30 BP 145 / 84; Pulse 95; Resp 17; Temp 98(O); Pulse Ox 99% on R/A; Pain 0/10; rg5 01:31 Body Mass Index 21.26 (54.43 kg, 160.02 cm) lg3 01:31 Pain Scale: Adult lg3 05:10 Pain Scale: Adult rg5 05:36 Pain Scale: Adult rg5 06:30 Pain Scale: Adult rg5 MDM: 02:18 Medical Screening Exam initiated sp4 06:48 Data reviewed: vital signs, nurses notes. sp4 05/12 01:08 Order name: Influenza Screen (a \T\ B); Complete Time: 02:08 sp4 05/12 02:08 Order name: CBC with Diff; Complete Time: 04:12 sp4 05/12 02:08 Order name: CMP; Complete Time: 04:12 sp4 05/12 02:08 Order name: Lipase; Complete Time: 04:12 sp4 05/12 05:43 Order name: BMP sp4 05/12 05:47 Order name: Glucose, Ancillary Testing; Complete Time: 06:37 EDMS 05/12 02:08 Order name: IV Saline Lock; Complete Time: 02:47 sp4 05/12 02:08 Order name: Labs collected and sent; Complete Time: 02:47 sp4 Administered Medications: 02:46 Drug: Ondansetron IVP 4 mg IVP once; over 2 minutes Route: IVP; Site: right forearm; rg5 03:09 Follow up: Response: No adverse reaction rg5 02:46 Drug: NS 0.9% IV 1000 ml IV at 1 bolus Per protocol; to be given as a bolus over 60 rg5 minutes Route: IV; Rate: 1 bolus; Site: right forearm; 03:30 Follow up: IV Status: Completed infusion; IV Intake: 1000ml rg5 02:47 Drug: TORadol - Ketorolac IVP 15 mg IVP once Route: IVP; Site: right forearm; rg5 03:09 Follow up: Response: No adverse reaction rg5 02:47 Drug: Acetaminophen PO 1000 mg PO once Route: PO; rg5 03:09 Follow up: Response: No adverse reaction rg5 04:37 Drug: NS 0.9% IV 1000 ml IV at 1 bolus Per protocol; to be given as a bolus over 60 rg5 minutes Route: IV; Rate: 1 bolus; Site: right forearm; 05:30 Follow up: IV Status: Completed infusion; IV Intake: 1000ml rg5 05:36 Follow up: IV Status: Completed infusion; IV Intake: 1000ml rg5 04:45 Drug: Glucotrol PO 5 mg PO once Route: PO; rg5 05:11 Follow up: Response: No adverse reaction rg5 06:44 Drug: AZITHromycin PO 500 mg PO once Route: PO; rg5 06:53 Follow up: Response: No adverse reaction rg5 06:44 Drug: Ibuprofen PO 400 mg PO once Route: PO; rg5 06:53 Follow up: Response: No adverse reaction; Pain is decreased rg5 Disposition Summary: 05/12/24 06:43 Discharge Ordered Notes: Location: Home sp4 Problem: new sp4 Symptoms: have improved sp4 Condition: Stable sp4 Diagnosis - Type 2 diabetes mellitus with hyperglycemia sp4 - Acute pharyngitis, unspecified sp4 Followup: sp4 - With: Private Physician - When: 7 - 10 days - Reason: Recheck today's complaints Discharge Instructions: - Discharge Summary Sheet sp4 - Sore Throat sp4 Forms: - Patient Portal Instructions sp4 Prescriptions: - Zithromax Z-Lino 250 mg Oral Tablet - take 1 tablet ORAL route as directed for 5 days Day 1 - take two (2) tablets sp4 one time. Day 2, 3, 4 , 5 take one (1) tablet once daily.; 6 tablet; Refills: 0, Product Selection Permitted Signatures: Dispatcher [employer] Luba Fernandez RN RN lg3 Kolby Parham MD MD sp4 Bran Benites RN RN rg5
--- NOTE | 2024-05-12 06:44 | ER ---
Nurse's Notes [facility] Name: Johnnie Maldonado Age: 58 yrs Sex: Male : 1965 Arrival Date: 05/12/2024 Time: 01:03 Bed 14 Private MD: Diagnosis: Type 2 diabetes mellitus with hyperglycemia;Acute pharyngitis, unspecified Presentation: 05/12 01:31 Chief complaint: Patient states: nausea after taking my metformin for the fist time. lg3 Coronavirus screen: Client denies travel out of the [place] in the last 14 days. At this time, the client does not indicate any symptoms associated with coronavirus-19. Ebola Screen: No symptoms or risks identified at this time. Initial Sepsis Screen: Does the patient meet any 2 criteria? No. Patient's initial sepsis screen is negative. Does the patient have a suspected source of infection? No. Patient's initial sepsis screen is negative. Risk Assessment: Do you want to hurt yourself or someone else? Patient reports no desire to harm self or others. Onset of symptoms was May 12, 2024. 01:31 Method Of Arrival: Ambulatory lg3 01:31 Acuity: DONTE 4 lg3 Triage Assessment: 01:35 General: Appears in no apparent distress. comfortable, Behavior is calm, cooperative. lg3 Pain: Denies pain. EENT: No deficits noted. No signs and/or symptoms were reported regarding the EENT system. Neuro: No deficits noted. Millan Agitation-Sedation Scale (RASS): 0 - Alert and Calm Level of Consciousness is awake, alert, obeys commands, Oriented to person, place, time, situation. Cardiovascular: No deficits noted. Denies chest pain, shortness of breath, Capillary refill < 3 seconds Clubbing of nail beds is absent JVD is absent Patient's skin is warm and dry. Respiratory: No deficits noted. Airway is patent Respiratory effort is even, unlabored, Respiratory pattern is regular, symmetrical. GI: No deficits noted. Abdomen is round non-distended, Bowel sounds present X 4 quads. Abd is soft and non tender X 4 quads. Reports nausea. : No signs and/or symptoms were reported regarding the genitourinary system. Derm: No deficits noted. No signs and/or symptoms reported regarding the dermatologic system. Skin is intact, is healthy with good turgor, Skin is dry, Skin is normal, Skin temperature is warm. Musculoskeletal: No deficits noted. No signs and/or symptoms reported regarding the musculoskeletal system. Circulation, motion, and sensation intact. Range of motion: intact in all extremities. Historical: - Allergies: 01:35 No Known Allergies; lg3 - Home Meds: 01:35 metformin 1,000 mg Oral tablet 1 tab daily [Active]; lg3 - PMHx: 01:35 diabetes mellitus; Hypertensive disorder; raynaud's; Urinary incontinence; lg3 - PSHx: 01:35 right arm; lg3 - Immunization history:: Adult Immunizations up to date. - Infectious Disease History:: Denies. - Social history:: Smoking status: Patient denies any tobacco usage or history of. Patient/guardian denies using alcohol, street drugs. - Family history:: not pertinent. Screenin:36 [facility] ED Fall Risk Assessment (Adult) History of falling in the last 3 months, lg3 including since admission No falls in past 3 months (0 pts) Confusion or Disorientation No (0 pts) Intoxicated or Sedated No (0 pts) Impaired Gait No (0 pts) Mobility Assist Device Used No (0 pt) Altered Elimination No (0 pt) Score/Fall Risk Level 0 - 2 = Low Risk Oriented to surroundings, Maintained a safe environment, Educated pt \T\ family on fall prevention, incl call for assistance when getting out of bed, Assessed \T\ reinforced patient's understanding of fall precautions. Abuse screen: Denies threats or abuse. Denies injuries from another. Nutritional screening: No deficits noted. Tuberculosis screening: No symptoms or risk factors identified. Assessment: 01:36 General: see triage assessment. GI: No deficits noted. Abdomen is round non-distended, lg3 Bowel sounds present X 4 quads. Abd is soft and non tender X 4 quads. Reports nausea. 02:33 Reassessment: No changes from previously documented assessment. Patient and/or family rg5 updated on plan of care and expected duration. Pain level reassessed. Patient is alert, oriented x 3, equal unlabored respirations, skin warm/dry/pink. 03:30 Reassessment: Patient and/or family updated on plan of care and expected duration. Pain rg5 level reassessed. Patient is alert, oriented x 3, equal unlabored respirations, skin warm/dry/pink. Patient states symptoms have improved. 04:30 Reassessment: Patient and/or family updated on plan of care and expected duration. Pain rg5 level reassessed. Patient is alert, oriented x 3, equal unlabored respirations, skin warm/dry/pink. Patient states feeling better. Patient states symptoms have improved. 05:36 Reassessment: Patient and/or family updated on plan of care and expected duration. Pain rg5 level reassessed. Patient is alert, oriented x 3, equal unlabored respirations, skin warm/dry/pink. Patient states feeling better. Patient states symptoms have improved. 06:31 Reassessment: Patient and/or family updated on plan of care and expected duration. Pain rg5 level reassessed. Patient states feeling better. Patient states symptoms have improved. Vital Signs: 01:31 BP 166 / 89; Pulse 97; Resp 17 S; Temp 97.6(TE); Pulse Ox 98% on R/A; Weight 54.43 kg lg3 (R); Height 5 ft. 3 in. (R); Pain 0/10; 02:00 BP 166 / 89; Pulse 97; Resp 17; Temp 97.6; Pulse Ox 98% on R/A; rg5 03:50 BP 152 / 101; Pulse 107; Resp 17; Pulse Ox 96% on R/A; rg5 04:37 BP 170 / 97; Pulse 102; Resp 18; Temp 98(O); Pulse Ox 99% on R/A; rg5 05:10 BP 168 / 98; Pulse 98; Resp 17; Pulse Ox 97% on R/A; Pain 0/10; rg5 05:36 BP 149 / 87; Pulse 100; Resp 17; Pulse Ox 96% on R/A; Pain 0/10; rg5 06:30 BP 145 / 84; Pulse 95; Resp 17; Temp 98(O); Pulse Ox 99% on R/A; Pain 0/10; rg5 01:31 Body Mass Index 21.26 (54.43 kg, 160.02 cm) lg3 01:31 Pain Scale: Adult lg3 05:10 Pain Scale: Adult rg5 05:36 Pain Scale: Adult rg5 06:30 Pain Scale: Adult rg5 ED Course: 01:05 Patient arrived in ED. jj6 01:07 Kolby Parham MD is Attending Physician. sp4 01:35 Triage completed. lg3 01:35 Arm band placed on right wrist. lg3 01:36 Patient taken to lobby, ambulatory, steady gait. lg3 01:36 Patient has correct armband on for positive identification. lg3 01:36 Flu and/or RSV swab sent to lab. lg3 01:37 Influenza Screen (a \T\ B) Sent. lg3 02:00 No provider procedures requiring assistance completed. rg5 02:21 Bran Benites, TYSHAWN is Primary Nurse. rg5 05:00 No apparent distress. Resting quietly. rg5 06:00 Resting quietly. Appears to be sleeping. rg5 06:51 Provided Education on: post er care done. rg5 06:52 IV discontinued, bleeding controlled, No redness/swelling at site. Pressure dressing rg5 applied. Administered Medications: 02:46 Drug: Ondansetron IVP 4 mg IVP once; over 2 minutes Route: IVP; Site: right forearm; rg5 03:09 Follow up: Response: No adverse reaction rg5 02:46 Drug: NS 0.9% IV 1000 ml IV at 1 bolus Per protocol; to be given as a bolus over 60 rg5 minutes Route: IV; Rate: 1 bolus; Site: right forearm; 03:30 Follow up: IV Status: Completed infusion; IV Intake: 1000ml rg5 02:47 Drug: TORadol - Ketorolac IVP 15 mg IVP once Route: IVP; Site: right forearm; rg5 03:09 Follow up: Response: No adverse reaction rg5 02:47 Drug: Acetaminophen PO 1000 mg PO once Route: PO; rg5 03:09 Follow up: Response: No adverse reaction rg5 04:37 Drug: NS 0.9% IV 1000 ml IV at 1 bolus Per protocol; to be given as a bolus over 60 rg5 minutes Route: IV; Rate: 1 bolus; Site: right forearm; 05:30 Follow up: IV Status: Completed infusion; IV Intake: 1000ml rg5 05:36 Follow up: IV Status: Completed infusion; IV Intake: 1000ml rg5 04:45 Drug: Glucotrol PO 5 mg PO once Route: PO; rg5 05:11 Follow up: Response: No adverse reaction rg5 06:44 Drug: AZITHromycin PO 500 mg PO once Route: PO; rg5 06:53 Follow up: Response: No adverse reaction rg5 06:44 Drug: Ibuprofen PO 400 mg PO once Route: PO; rg5 06:53 Follow up: Response: No adverse reaction; Pain is decreased rg5 Medication: 02:00 VIS not applicable for this client. rg5 Intake: 03:30 IV: 1000ml; Total: 1000ml. rg5 05:30 IV: 1000ml; Total: 2000ml. rg5 05:36 IV: 1000ml; Total: 3000ml. rg5 Outcome: 06:43 Discharge ordered by . sp4 06:52 Discharged to home ambulatory, rg5 06:52 Condition: stable 06:52 Discharge instructions given to patient, Instructed on discharge instructions, Demonstrated understanding of instructions, follow-up care, medications, Prescriptions given X 1, 06:59 Patient left the ED. rg5 Signatures: Luba Baltazar RN RN lg3 Rizwana [id number] Kolby Parham MD MD sp4 Bran Benites RN RN rg5
[2024-05-12 07:04] LABS: Anion Gap 9.5 mEq/L (5.0-15.0); Potassium 3.5 mEq/L (3.5-5.1)
[2024-05-12 07:07] VITALS: TEMP 98
[2024-05-12 07:11] VITALS: BP 145/84; O2SAT 99
== END 2024-05-12 06:59 | disposition home or self-care (01) ==
LOC: ER 01:03
DX: E11.65 Type 2 diabetes mellitus with hyperglycemia (principal); J02.9 Acute pharyngitis, unspecified
CPT/HCPCS: 36415; 80048; 80053; 82947; 83690; 85025; 87804; 96361; 96374; 96375; 99284; J2405; J7030

== ENCOUNTER 2024-05-15 02:24 | Emergency (ER) | payer SELFPAY ==
--- OUTSIDE RECORDS SUMMARY | 2024-05-15 02:30 | XMS REPORT | Continuity of Care Document ---
Author Name Unknown Address [address] [place] [address] [facility] Address [address] [place] [address] Care Team Providers Care Rn Cardiac Rehab Name Role Phone Erik Louie Jr. Primary Care Physician + [phone] Cosme Cardona DO Attending Clinician [phone] Solo CHONG, Lyubov Hilton Attending Clinician [phone] Rosalie Irizarry RN Attending Clinician [phone] Miguel CHONG, Ricky K.H. Attending Clinician + [phone] Umang Botello MD Attending Clinician [phone] Jerry Fields DO Attending Clinician [phone] Vimal Quiñones MD Attending Clinician [phone] Jeannette Dawn LVN Attending Clinician + [phone] PARVEZ MONROE Attending Clinician Unavailable Servando Aponte MD Attending Clinician [phone] Bret Banda MD Attending Clinician [phone] Parvez Monroe MD Attending Clinician [phone] Lyubov Banda MD Admitting Clinician [phone] Jerry Fields DO Admitting Clinician [phone] PARVEZ MONROE Admitting Clinician Unavailable Parvez Monroe [...] Date Quantity Comments Source [facility] function 2023-08-23 00:00:00 [...] 25 mg tablet 08-23 00:00: 00 Yes [id number] 25mg Take 1 tablet by mouth in the morning and 1 tablet at noon and 1 tablet in the evening. Take with meals. [facility] metFORMIN 500 mg 24 hr tablet 08-23 00:00: 09-23 04:59 :00 No [id number] 500mg Take 1 tablet by mouth in the morning and 1 tablet in the evening. Take with meals. Do all this for 30 days. [facility] amLODIPine 10 mg tablet 08-23 00:00: 09-23 04:59 :00 No [id number] 10mg Take 1 tablet by mouth in the morning for 30 days. [facility] tamsulosin 0.4 mg 24 hr capsule 08-23 00:00: 00 09-23 04:59 :00 No [id number] .4mg Take 1 capsule by mouth in the morning for 30 days. [facility] levoFLOXaci n 500 mg tablet 08-23 00:00: 08-26 04:59 :00 No [id number] 500mg Take 1 tablet by mouth every [...] dose, On Wed08/23/23 at 1000, Routine [facility] amLODIPine (NORVASC) tablet 5 mg 08-22 14:00: 00 Yes 5mg 5 mg, Oral, DAILY, First dose on Wed08/23/23 at 0900, Until Discontinu ed, Routine [facility] D5W 0.45% NaCl (1/2NS) IV infusion 1,000 mL 08-22 02:29: 00 08-23 17:53 :57 No 1000mL at 75 mL/hr, 1,000 mL, IV Infusion, CONTINUOUS , Starting on Wed08/22/23 at 2130, Until Wed08/24/23 at 1253, Routine [facility] D5W IV infusion 1,000 mL 08-21 21:30: 00 08-22 02:27 :22 No 1000mL at 100 mL/hr, IV Infusion, CONTINUOUS , Starting on Wed08/22/23 at 1630, Until Wed08/22/23 at 2127, Routine [facility] Sliding Scale Insulin - Lispro (HumaLOG) 08-21 21:00: 00 Yes Subcutaneo us, Q4H, First dose on Wed08/22/23 at 1600, Until Discontinu ed, Routine [facility] glucagon (GLUCAGEN DIAGNOSTIC KIT) injection 1 [...] or has mental status changes. [facility] D5W IV infusion 1,000 mL [...] 08-16 00:00: 00 08-23 00:00 :00 No [id number] 5mg Take 1 tablet by mouth in the morning for 30 days. [facility] lactulose (CEPHULAC) solution 45 mL 08-15 15:45: 00 08-15 15:21 :00 No 45mL 45 mL, Oral, ONCE, 1 dose, On Wed08/16/23 at 1045, Routine [facility] amLODIPine (NORVASC) tablet 5 mg 08-15 14:00: 00 Yes 5mg 5 mg, Oral, DAILY, First dose on Wed08/16/23 at 0900, Until Discontinu ed, Routine [facility] sennosides (SENOKOT) tablet 8.6 mg 08-15 14:00: 00 Yes 8.6mg 8.6 mg, Oral, DAILY, First dose on Wed08/16/23 at 0900, Until Discontinu ed, Routine [facility] losartan (COZAAR) tablet 25 mg 08-15 14:00: 00 Yes 25mg 25 mg, Oral, DAILY, First dose (after last modificati on) on Wed08/16/23 at 0900, Until Discontinu ed, Routine [facility] docusate (COLACE) capsule 100 mg 08-15 [...] 08-15 00:00: 00 08-23 00:00 :00 No [id number] 500mg Take 1 tablet by mouth in the morning and 1 tablet in the evening. Take with meals. Do all this for 30 days. [facility] acarbose 25 mg tablet 08-15 00:00: 00 08-23 00:00 :00 No [id number] 25mg Take 1 tablet by mouth in the morning and 1 tablet at noon and 1 tablet in the evening. Take with meals. Do all this for 30 days. [facility] pioglitazon e 15 mg tablet 08-15 00:00: 00 08-23 00:00 :00 No [id number] 15mg Take 1 tablet by mouth in the morning for 30 days. [facility] tamsulosin 0.4 mg 24 hr capsule 08-15 00:00: 00 08-23 00:00 :00 No [id number] .4mg Take 1 capsule by mouth in the morning for 30 days. [facility] losartan 25 mg tablet 08-15 00:00: 00 08-23 00:00 :00 No [id number] 25mg Take 1 tablet by mouth in [...] at 2200, Until Discontinu ed, Routine [facility] Sliding Scale Insulin - Lispro (HumaLOG) 08-14 02:00: 00 08-14 18:06 :14 No Subcutaneo us, TID MEALS+HS, First dose on 08/14/23 at 2100, Until Discontinu ed, Routine [facility] glucagon (GLUCAGEN DIAGNOSTIC KIT) injection 1 mg 08-14 00:36: 37 Yes 1mg 1 mg, Intramuscu lar, PRN, Starting on 08/14/23 at 1936, Until Discontinu ed, HAO, Blood Glucose < or = 70 mg/dL and patient is NPO, unable to swallow or has mental changes. [facility] dextrose 50 % in water (D50W) [...] Discontinu ed, Routine, Pain (scale 1-3) [facility] aspirin chewable tablet 324 mg 08-13 23:15: 00 08-13 22:56 :00 No [id number] 324mg 324 mg, Oral, ONCE, 1 dose, On 08/14/23 at 1815, HAO [facility] lidocaine 2% viscous (LIDOCAINE VISCOUS) 2 % solution 15 mL 08-13 23:00: 00 08-13 22:10 :00 No [id number] 15mL 15 mL, Oral, ONCE, 1 dose, On 08/14/23 at 1800, Routine [facility] KCL (KLOR-CON M20) tablet 20 mEq 08-13 22:30: 00 08-13 22:59 :00 No [id number] 20meq 20 mEq, Oral, ONCE, 1 dose, On 08/14/23 at 1730, [facility] acute [facility] metoprolol tartrate (LOPRESSOR) tablet 50 mg 08-13 22:00: 00 08-13 22:58 :00 No [id number] 50mg 50 mg, Oral, ONCE, 1 dose, On 08/14/23 at 1700, [facility] iopamidol (ISOVUE 370-500 mL) injection 80 mL 08-13 21:30: 00 08-13 21:45 :00 No [id number] 80mL 80 mL, Intravenou s, ONCE, 1 dose, On 08/14/23 at 1645, Routine [facility] acetaminoph en (TYLENOL) tablet 650 mg 08-13 21:15: 00 08-13 22:57 :00 No [id number] 650mg 650 mg, Oral, ONCE, 1 dose, On 08/14/23 at 1615, [facility] amLODIPine (NORVASC) tablet 5 mg 08-13 21:15: 00 08-13 22:58 :00 No [id number] 5mg 5 mg, Oral, ONCE, 1 dose, On 08/14/23 at 1615, [facility] NaCl 0.9% (NS) bolus infusion 1,000 mL 08-13 21:15: 00 08-13 21:50 :00 No [id number] 1000mL at 999 mL/hr, 1,000 mL, IV [...] 2022-04 00:00: 00 08-15 00:00 :00 No [id number] 25mg Take 1 tablet by mouth in the morning. [facility] tamsulosin (FLOMAX) 0.4 mg 24 hr capsule 2022-04 00:00: 00 08-15 00:00 :00 No [id number] .4mg Take 1 capsule by mouth in the morning. [facility] metFORMIN 500 mg tablet 2022-04 00:00: 00 05-23 05:59 :00 No [id number] Take 1 tablet by mouth 2 (two) [...] at 1700, Until Discontinu ed, Routine [facility] losartan (COZAAR) tablet 25 mg 2022-04 15:00: 00 Yes 25mg 25 mg, Oral, DAILY, First dose on Wed04/23/23 at 0900, Until Discontinu ed, Routine [facility] Potassium Bicarb-Citr ic Acid (EFFER-K) effervescen t tablet 40 mEq 2022-04 13:00: 00 04-23 13:33 :00 No 40meq 40 mEq, Oral, ONCE, 1 dose, On 12/29/23 at 0700, Routine [facility] ramelteon (ROZEREM) tablet 8 mg 2022-04 10:45: 00 04-23 10:51 :00 No 8mg 8 mg, Oral, ONCE NOW, 1 dose, On Wed04/23/23 at 0500, Routine [facility] Blood-Gluco se Meter (ACCU-CHEK GUIDE GLUCOSE METER) [facility] 2022-04 00:00: 00 Yes [id number] Use as directed [facility] lancets 33 gauge [facility] 2022-04 00:00: 00 Yes [id number] Use as directed [facility] blood sugar diagnostic (ACCU-CHEK GUIDE TEST STRIPS) strip 2022-04 00:00: 00 Yes [id number] Use as directed [facility] pioglitazon e 15 mg tablet 2022-04 00:00: 00 08-15 00:00 :00 No [id number] 7.5mg Take 0.5 tablets by mouth in the morning. [facility] acarbose 25 mg tablet 2022-04 00:00: 00 08-15 00:00 :00 No [id number] 25mg Take 1 tablet by mouth in the morning and 1 tablet at noon and 1 tablet in the evening. Take with meals. [facility] atorvastati n 80 mg tablet 2022-04 00:00: 00 05-24 05:59 :00 No [id number] 80mg Take 1 tablet by mouth at bedtime for 30 days. [facility] glipiZIDE 5 mg tablet 2022-04 00:00: 00 05-24 05:59 :00 No [id number] 5mg Take 1 tablet by mouth 2 (two) times daily before breakfast and dinner for 30 days. [facility] enoxaparin (LOVENOX) injection 40 mg 2022-04 15:00: 00 Yes 40mg 40 mg, Subcutaneo us, DAILY, First dose on Wed04/22/23 at 0900, Until Discontinu ed, Routine [facility] insulin NPH (HUMULIN N) injection 8 Units 2022-04 14:00: 00 04-23 19:10 :37 No 8U 8 Units, Subcutaneo us, QAM WITH BREAKFAST, First dose on Wed04/22/23 at 0800, Until Discontinu ed, Routine [facility] insulin NPH (HUMULIN N) injection 4 Units 2022-04 23:00: 00 04-23 19:10 :37 No 4U 4 Units, Subcutaneo us, QPM, First dose on Wed04/21/23 at 1700, Until Discontinu ed, Routine [facility] insulin lispro (human) (HumaLOG U-100) injection 2 Units 2022-04 23:00: 00 04-23 19:10 :37 No 2U 2 Units, Subcutaneo us, TID MEALS, First dose (after last modificati on) on Wed04/21/23 at 1700, Until Discontinu ed, Routine [facility] NaCl 0.9% (NS) IV infusion 250 mL 2022-04 21:15: 00 04-22 20:03 :10 No [id number] 250mL at 20 mL/hr, IV Infusion, CONTINUOUS , Starting on Wed04/21/23 at 1515, Until Wed04/22/23 at 1403, Routine
To keep vein open
[facility] lipid microsphere s (DEFINITY) injection 2 mL 2022-04 21:00: 00 04-21 20:15 :00 No [id number] 2mL 2 mL, IV Push, ONCE, 1 dose, On Wed04/21/23 at 1500, Routine [facility] atropine injection 1 mg 2022-04 21:00: 00 04-21 20:44 :00 No [id number] 1mg 1 mg, Slow IV Push, ONCE, 1 dose, On Wed04/21/23 at 1500, Routine [facility] DOBUTamine (DOBUTREX) 250 mg/250 mL RTU infusion 2022-04 20:13: 51 04-22 20:03 :10 No [id number] 5ug/kg/ min 5 mcg/kg/min ?59 kg (17.7 [...] 2022-04 17:15: 00 04-21 15:22 :00 No [id number] 3mL 3 mL, IV Push, ONCE, 1 [...] at 0900, Until Discontinu ed, Routine [facility] aspirin tablet 325 mg 2022-04 15:00: 00 04-21 06:21 :21 No 325mg 325 mg, Oral, DAILY, First dose on Wed04/21/23 at 0900, Until Discontinu ed, Routine [facility] Sliding Scale Insulin - Lispro (HumaLOG) 2022-04 14:00: 00 Yes Subcutaneo us, TID MEALS+HS, First dose on Wed04/21/23 at 0800, Until Discontinu ed, Routine [facility] magnesium sulfate in water 2 gram/50 mL (4 %) infusion 2 g 2022-04 12:30: 00 04-21 15:11 :00 No 2g 2 g, IV Piggyback, Administer over 60 Minutes, ONCE, 1 dose, On Wed04/21/23 at 0630, Routine [facility] Potassium Bicarb-Citr ic Acid (EFFER-K) effervescen t tablet 40 mEq 2022-04 12:30: 00 04-21 12:36 :00 No 40meq 40 mEq, Oral, ONCE, 1 dose, On Wed04/21/23 at 0630, [facility] glargine (LANTUS U-100) injection 9 Units 2022-04 07:45: 00 04-21 21:08 :08 No .15U/kg /d 9 Units (rounded from 8.745 Units = 0.15 Units/kg/d ay ?58.3 kg), Subcutaneo us, QHS, First dose (after last modificati on) on Wed04/21/23 at 0145, Until Discontinu ed, Routine [facility] atorvastati n (LIPITOR) tablet 80 mg 2022-04 06:30: 00 Yes 80mg 80 mg, Oral, QHS, First dose on Wed04/21/23 at 0030, Until Discontinu ed, [facility]ine [facility] dextrose 50 % in water (D50W) injection 25 mL 2022-04 06:24: 50 Yes 25mL 25 mL, Slow IV Push, PRN, Starting on Wed04/21/23 at 0024, Until Discontinu ed, HAO, Blood Glucose < or = 70 mg/dL and patient is NPO, unable to swallow or has mental status changes. [facility] acetaminoph en (TYLENOL) tablet 650 mg 2022-04 05:53: 21 Yes 650mg 650 mg, Oral, Q6HPRN, Starting on Wed04/20/23 at 2353, Until Discontinu ed, Routine, Pain (scale 1-3) [facility] NaCl 0.9% (NS) bolus infusion 1,000 mL 2022-04 04:00: 00 04-21 03:45 :00 No 1000mL at 999 mL/hr, 1,000 mL, IV Infusion, ONCE, 1 dose, On Wed04/20/23 at 2200, STAT [facility] clopidogreL (PLAVIX) 300 mg tablet 300 [...] e, Dosing and Testing: &nbs p;FOR [place], [facility], AND [facility]ES ONLY &nbs p; - aPTT < 35: & nbsp;Bolus 5000 units, increase rate 300 units/hr&n bsp; - aPTT 35-44:&nbs p; Ggaan tony 3000 units, increase rate 200 units/hr&n [...] INITIAL BOLUS OR INITIAL INFUSION RATE.
Usha [facility] Vital Signs Vital Name Observation Time Observation Value Comments S ource Systolic blood pressure 2023-08-24 13:02:00 150 mm[Hg] [facility] Diastolic blood pressure 2023-08-24 13:02:00 88 mm[Hg] [facility] Heart rate 2023-08-24 13:02:00 79 /min [facility] Body temperature 2023-08-24 13:02:00 36.44 Deya [facility] Respiratory rate 2023-08-24 13:02:00 14 /min [facility] Oxygen saturation in Arterial blood by Pulse oximetry 2023-08-24 13:02:00 98 /min [facility] Body weight 2023-08-24 08:43:00 58.469 kg [facility] BMI 2023-08-24 08:43:00 22.83 kg/m2 [facility] Body height 2023-08-22 04:52:00 160 cm [facility] Systolic blood pressure 2023-08-16 16:53:00 154 mm[Hg] [facility] Diastolic blood pressure 2023-08-16 16:53:00 94 mm[Hg] [facility] Heart rate 2023-08-16 16:53:00 82 /min [facility] Body temperature 2023-08-16 16:53:00 36.61 Deya [facility] Respiratory rate 2023-08-16 16:53:00 16 /min [facility] Oxygen saturation in Arterial blood by Pulse oximetry 2023-08-16 16:53:00 99 /min [facility] Body weight 2023-08-16 09:56:00 56.473 kg [facility] BMI 2023-08-16 09:56:00 22.05 kg/m2 [facility] Body height 2023-08-15 04:07:00 160 cm [facility] Systolic blood pressure 2023-04-23 18:11:00 141 mm[Hg] [facility] Diastolic blood pressure 2023-04-23 18:11:00 80 mm[Hg] [facility] Heart rate 2023-04-23 18:11:00 101 /min [facility] Body temperature 2023-04-23 18:11:00 35.89 Deya [facility] Respiratory rate 2023-04-23 18:11:00 18 /min [facility] Oxygen saturation in Arterial blood by Pulse oximetry 2023-04-23 18:11:00 98 /min [facility] Body weight 2023-04-22 09:57:00 57.561 kg [facility] BMI 2023-04-22 09:57:00 22.48 kg/m2 [facility] Body height 2023-04-21 20:00:00 160 cm [facility] Procedures Procedure Date / Time Performed Performing Clinician Source POCT GLUCOSE (AUTOMATED) 2023-08-24 16:13:00 Jami Banda [facility] POCT GLUCOSE (AUTOMATED) 2023-08-24 12:34:00 Jami Banda [facility] BASIC METABOLIC PANEL (NA, K, CL, CO2, GLUCOSE, BUN, CREATININE, CA) 2023-08-24 08:42:00 Jerry Fields [facility] CBC WITH DIFF 2023-08-24 08:42:00 Jerry Fields [facility] POCT GLUCOSE (AUTOMATED) 2023-08-24 05:46:00 [...] [facility] MAGNESIUM 2023-08-23 08:23:00 Jerry Fields [facility] BASIC METABOLIC PANEL (NA, K, CL, CO2, GLUCOSE, BUN, CREATININE, CA) 2023-08-23 08:23:00 Jerry Fields [facility] CBC WITH DIFF 2023-08-23 08:23:00 Jerry Fields [facility] POCT GLUCOSE (AUTOMATED) 2023-08-23 04:52:00 Jami Banda [facility] POCT GLUCOSE (AUTOMATED) 2023-08-23 00:42:00 Jami Banda [facility] BASIC METABOLIC PANEL (NA, K, CL, CO2, GLUCOSE, BUN, CREATININE, CA) 2023-08-23 00:38:00 Jerry Fields [facility] POCT GLUCOSE (AUTOMATED) 2023-08-22 21:18:00 Jami Banda [facility] URIC ACID 2023-08-22 19:21:00 Alyssa Cain [facility] PROTEIN CREAT RATIO URINE RANDOM 2023-08-22 19:21:00 Alyssa Cain [facility] CORTISOL AM 2023-08-22 19:20:00 Alyssa Cain [facility] BASIC METABOLIC PANEL (NA, K, CL, CO2, GLUCOSE, BUN, CREATININE, CA) 2023-08-22 13:21:00 Lyubov Banda [facility] LACTIC ACID WHOLE BLOOD 2023-08-22 09:16:00 Loreta Banda mmad [facility] MAGNESIUM 2023-08-22 08:30:00 Lyubov Banda [facility] TROPONIN I 2023-08-22 08:30:00 Lyubov Banda [facility] CBC WITH DIFF 2023-08-22 08:30:00 [facility] N-TERMINAL PRO-BNP 2023-08-22 08:30:00 Lyubov Banda [facility] PHOSPHORUS 2023-08-22 04:01:00 Lyubov Banda [facility] BASIC METABOLIC PANEL (NA, K, CL, CO2, GLUCOSE, BUN, CREATININE, CA) 2023-08-22 04:01:00 Cosme Cardona [facility] URINALYSIS 2023-08-22 01:52:00 Cosme Cardona [facility] CT ABDOMEN PELVIS WO CONTRAST 2023-08-22 01:26:17 Cosme Cardona [facility] CREATINE KINASE 2023-08-22 01:24:00 Lyubov Banda [facility] LIPASE 2023-08-22 01:24:00 Cardona, [facility] COMP. METABOLIC PANEL ([id number]) 2023-08-22 01:24:00 Singer [facility] CBC WITH DIFF 2023-08-22 01:24:00 Singer [facility] POCT GLUCOSE (AUTOMATED) 2023-08-16 21:51:00 Yue Fields [...] [facility] TROPONIN I 2023-08-15 10:41:00 Juventino [facility] BASIC METABOLIC PANEL (NA, K, CL, CO2, GLUCOSE, BUN, CREATININE, CA) 2023-08-15 10:41:00 Shanice [facility] CBC WITH DIFF 2023-08-15 10:41:00 Juventino [facility] PROSTATIC SPECIFIC ANTIGEN 2023-08-15 05:32:00 Juventino [facility] TROPONIN I 2023-08-15 05:32[facility] 2023-08-15 04:03:00 Yue Fields [facility] URINALYSIS 2023 22:15:00 Umang Botello [facility] XR CHEST 1 VW 2023 21:46:00 Umang Botello [facility] CT ABDOMEN PELVIS W CONTRAST 2023 21:34:55 Rosmery [facility] CT TRAUMA HEAD WO CONTRAST 2023 21:33:20 Rosmery [facility] HB ECG ROUTINE & RHYTHM STRIP 2023 21:10:12 Rosmery [facility] PHOSPHORUS 2023 20:47:00 Rosmery [facility] CREATINE KINASE 2023 20:47:00 [facility] LIPASE 2023 20:47:00 Rosmery [facility] MAGNESIUM 2023 20:47:00 Rosmery [facility] BETA HYDROXY-BUTYRATE 2023 20:47:00 Farida Botello [facility] TROPONIN I 2023 20:47:00 [facility] COMP. METABOLIC PANEL ([id number]) 2023 20:47:00 Rosmery [facility] CBC WITH DIFF 2023 20:47:00 Umang Botello [facility] GLYCOSYLATED HEMOGLOBIN (A1C) 2023 20:47:00 Jerry Fields [facility] N-TERMINAL PRO-BNP 2023 20:47:00 Michael Botello [facility] ACUTE CARE VENOUS BLOOD GAS 2023 20:46:00 Rosmery [facility] LACTIC ACID WHOLE BLOOD 2023 20:46:00 Kian Botello [facility] POCT GLUCOSE(AGE >30DAYS) 2023 20:26:00 Rosmery [facility] POCT GLUCOSE (AUTOMATED) 2023 20:23:00 Ros[facility]y [facility] POCT GLUCOSE (AUTOMATED) 2023-04-23 18:09:00 Brien Banda [facility] POCT GLUCOSE (AUTOMATED) 2023-04-23 15:32:00 Brien Banda [facility] MAGNESIUM 2023-04-23 09:09:00 Loghin, Chet Univer [facility] BASIC METABOLIC PANEL (NA, K, CL, CO2, GLUCOSE, BUN, CREATININE, CA) 2023-04-23 09:09:00 Chet Echavarria [facility] POCT GLUCOSE (AUTOMATED) 2023-04-23 02:56:00 Brien Banda [facility] POCT GLUCOSE (AUTOMATED) 2023-04-23 00:32:00 Solo [facility] POCT GLUCOSE (AUTOMATED) 2023-04-22 22:43:00 Solo [facility] POCT GLUCOSE (AUTOMATED) 2023-04-22 20:36:00 Solo [facility] POCT GLUCOSE (AUTOMATED) 2023-04-22 17:44:00 Solo [facility] POCT GLUCOSE (AUTOMATED) 2023-04-22 13:41:00 Solo [facility] MAGNESIUM 2023-04-22 10:37:00 Daja Aaliyah [facility] BASIC METABOLIC PANEL (NA, K, CL, CO2, GLUCOSE, BUN, CREATININE, CA) 2023-04-22 10:37:00 Daja Aaliyah [facility] CBC WITH DIFF 2023-04-22 10:37:00 Daja Aaliyah [facility] POCT GLUCOSE (AUTOMATED) 2023-04-22 03:32:00 Solo [facility] POCT GLUCOSE (AUTOMATED) 2023-04-22 01:34:00 Solo [facility] COMPLETE ECHOCARDIOGRAM DOBUTAMINE STRESS TEST W CONTRAST 2023-04-21 21:15:00 Jeanine Montanamnjennie [facility] POCT GLUCOSE (AUTOMATED) 2023-04-21 17:36:00 Solo [facility] ACTIVATED PARTIAL THRMPLAS JERMAINE 2023-04-21 16:47:00 Seravndo Aponte [facility] TRANSTHORACIC ECHO (TTE) COMPLETE W/ CONTRAST 2023-04-21 15:26:00 Kylie Fuchs [facility] TROPONIN I 2023-04-21 12:39:00 Víctor Fuchs Noel [facility] POCT GLUCOSE (AUTOMATED) 2023-04-21 09:39:00 Brien Banda [facility] MAGNESIUM 2023-04-21 09:10:00 Víctor Fuchs Noel [facility] BASIC METABOLIC PANEL (NA, K, CL, CO2, GLUCOSE, BUN, CREATININE, CA) 2023-04-21 09:10:00 Kylie Fuchs Noel [facility] LIPID PANEL ([id number])(TOTAL CHOLESTEROL, TRIGLYCERIDES, HDL) 2023-04-21 09:10:00 Kylie Fuchs Noel [facility] CBC WITH DIFF 2023-04-21 09:10:00 Víctor Fuchs [facility] ACTIVATED PARTIAL THRMPLAS JERMAINE 2023-04-21 09:10:00 Servando Aponte [facility] XR CHEST 1 VW 2023-04-21 06:53:47 Víctor Fuchs ampryue [facility] TROPONIN I 2023-04-21 06:32:00 Víctor Fuchs anju Noel [facility] IRON PANEL 2023-04-21 06:32:00 Víctor Fuchs ampryue [facility] N-TERMINAL PRO-BNP 2023-04-21 06:32:00 Kylie Fuchs Noel [facility] CRITICAL CARE 2023-04-21 02:54:15 Servando Aponte [facility] PROTHROMBIN TIME / INR 2023-04-21 02:44:00 Enrique Aponte [facility] ACTIVATED PARTIAL THRMPLAS JERMAINE 2023-04-21 02:44:00 Servando Aponte [facility] URINALYSIS 2023-04-21 02:33:00 Servando Aponte [facility] PROTEIN CREAT RATIO URINE RANDOM 2023-04-21 02:33:00 Tavia Fuchsmad Noel [facility] URINE DRUG (IMMUNOASSAY) - COMPREHENSIVE DRUG SCREEN W/O REFLEX 2023-04-21 02:33:00 Servando Aponte [facility] PHOSPHORUS 2023-04-21 01:55:00 Víctor Fuchs Noel [facility] FERRITIN SERUM 2023-04-21 01:55:00 Víctor Fuchs Noel [facility] TROPONIN I 2023-04-21 01:55:00 [facility] THYROID STIMULATING HORMONE 2023-04-21 01:55:00 Kylie Fuchs Noel [facility] COMP. METABOLIC PANEL ([id number]) 2023-04-21 01:55:00 Servando Aponte [facility] ETHANOL 2023-04-21 01:55:00 [facility] CBC WITH DIFF 2023-04-21 01:55:00 Servando Aponte [facility] GLYCOSYLATED HEMOGLOBIN (A1C) 2023-04-21 01:55:00 Kylie Fuchs [facility] POCT GLUCOSE (AUTOMATED) 2023-04-21 01:54:00 [facility]ue [facility] [facility] EKG-12 LEAD 2023-04-21 01:51:41 Bret Banda [facility] Encounters Start Date/Time End Date/Time Encounter Type Admission Type Attending Clinicians Care Facility Care Department Encounter ID Source 2023-08-21 19:47:00 2023-08-24 16:32:00 Hospital Encounter Cosme Cardona Mohammad A. [facility] 1..840.114 350.1.13.10 4.2.7.2.686 [id number] [facility] 2023-08-20 00:00:00 2023-08-20 00:00:00 Patient Outreach Rosalie Irizarry 1.2.840.114 350.1.13.10 4.2.7.2.686 [id number] [facility] 2023-08-17 00:00:00 2023-08-17 00:00:00 Telephone Ricky Rivera [facility] 1.20.114 350.1.13.10 4.2.7.2.686 [id number] [facility] 2023 14:42:00 2023-08-16 18:40:00 Hospital Encounter Umang Botello David Oville, Jelani [facility] 1.2840.114 350.1.13.10 4.2.7.2.686 [id number] [facility] 2023-04-27 00:00:00 2023-04-27 00:00:00 Transition of Care Jeannette Dawn JANIS BAEZ 1.2840.114 350.1.13.10 4.2.7.2.686 [id number] [facility] 2023-04-20 19:48:00 2023-04-23 19:54:00 Inpatient X PARVEZ MONROE [facility] [id number] [facility] 2023-04-20 19:48:00 2023-04-23 19:54:00 Hospital Encounter Servando Aponte Rizwan Dacso, Matthew M [facility] 1.2840.114 350.1.13.10 4.2.7.2.686 [id number] [facility] Results Test Description Test Time Test Comments Results Result Co mments Source [facility]2023-08-24 12:35:27* Test Item Value Reference Range Interpretation Comme nts POCT GLU (test code = 3164665754) 204 mg/dL 70-110 H Lab Interpretation (test cod e = 14670-6) [facility] (NA, K, CL, CO2, GLUCOSE, BUN, CREATININE, CA)2023-08-24 09:45:39* Test Item Value Reference Range Interpretation Comme nts NA (test code = 3923545091) 133 mmol/L 135-145 L K (test code = 7755968145) 3.7 mmol/L 3.5-5.0 CL (test code = 1439743051) 98 mmol/L 98-108 CO2 TOTAL (test code = 6215508919) 27 mmol/L 23-31 AGAP (test code = 8912253216) 8 2-16 BUN (test code = 6624887945) 13 mg/dL 7-23 GLUCOSE (test code = 6503732711) 188 mg/dL 70-110 H CREATININE (test code = 2160-0) 0.63 mg/dL 0.60-1.25 CALCIUM (test code = 8165076050) 9.4 mg/dL 8.6-10.6 eGFR (test code = 16969-6) 111.6 mL/min/1.73m2 CKD-EPI eGFR (2020). Assuming creatinine has been stable day-to-day for at least three months, the eGFR indicates Category G1 (>= 90 mL/min/1.73 m2) Lab Interpretation (test code = 01691-4) [facility]normal [facility] Hospital[facility]b with Fbcx1238-78-03 09:21:26* Test Item Value Reference Range Interpretation [...] g/dL 31.2-35.0 H RDW-SD (test code = 25274-6) 36.9 fL 38.5-51.6 L RDW-CV (test code = 788-0) 11.6 % 12.1-15.4 L PLT (test code = 777-3) 407 150-328 H MPV (test code = 08639-5) 9.5 fL 9.8-13.0 L NRBC/100 WBC (test code = 0271206655) 0.0 0.0-10.0 NRBC x10^3 (test code = 0226197944) See_Comment [Automated messa ge] The system which generated this result transmitted reference range: 10*3/?L. The reference range was not used to interpret this result as normal/abnormal. GRAN MAT (NEUT) % (test code = 770-8) 63.1 % IMM GRAN % (test code = 8590729084) 0.30 % LYMPH % (test code = 736-9) 21.1 % MONO % (test code = 5905-5) 8.3 % EOS % (test code = 713-8) 6.5 % BASO % (test code = 706-2) 0.7 % GRAN MAT x10^3(ANC) (test code = 7894111471) 3.71 10*3/uL 1.99-6.95 IMM GRAN x10^3 (test code = 3524851440) 0.00-0.06 LYMPH x10^3 (test code = 731-0) 1.24 10*3/uL 1.09-3.23 MONO x10^3 (test code = 742-7) 0.49 10*3/uL 0.36-1.02 EOS x10^3 (test code = 711-2) 0.38 10*3/uL 0.06-0.53 BASO x10^3 (test code = 704-7) 0.04 10*3/uL 0.01-0.09 Lab Interpretation (test code = 85527-2) Abnormal [facility] (AUTOMATED)2023-08-24 05:47:46* Test Item Value Reference Range Interpretation Comme nts POCT GLU (test code = 3230340840) 126 mg/dL 70-110 H Lab Interpretation (test cod e = 97340-8) Abnormal [facility] Metabolic Panel (NA, K, CL, CO2, GLUCOSE, BUN, CREATININE, CA)2023-08-24 02:27:27* Test Item Value Reference Range Interpretation Comme nts NA (test code = 1777407083) 129 mmol/L 135-145 L K (test code = 8983582898) 3.9 mmol/L 3.5-5.0 CL (test code = 3470221027) 96 mmol/L 98-108 L CO2 TOTAL (test code = 0368687112) 29 mmol/L 23-31 AGAP (test code = 0588133689) 4 2-16 BUN (test code = 9013170733) 14 mg/dL 7-23 GLUCOSE (test code = 2271528233) 185 mg/dL 70-110 H CREATININE (test code = 2160-0) 0.56 mg/dL 0.60-1.25 L CALCIUM (test code = 3990508500) 9.2 mg/dL 8.6-10.6 eGFR (test code = 32494-7) 115.7 mL/min/1.73m2 CKD-EPI eGFR (2020). Assuming creatinine has been stable day-to-day for at least three months, the eGFR indicates Category G1 (>= 90 mL/min/1.73 m2) Lab Interpretation (test code = 06807-1) Abnormal [facility] GLUCOSE (AUTOMATED)2023-08-24 01:28:28* Test Item Value Reference Range Interpretation Comme nts POCT GLU (test code = 6478590970) 210 mg/dL 70-110 H Lab Interpretation (test cod e = 80543-3) Abnormal [facility] GLUCOSE (AUTOMATED)2023-08-23 21:30:04* Test Item Value Reference Range Interpretation Comme nts POCT GLU (test code = 3501810887) 149 mg/dL 70-110 H Lab Interpretation (test cod e = 63619-0) Abnormal [facility] GLUCOSE (AUTOMATED)2023-08-23 16:45:20* Test Item Value Reference Range Interpretation Comme nts POCT GLU (test code = 8723201850) 147 mg/dL 70-110 H Lab Interpretation (test cod e = 25161-8) Abnormal [facility] GLUCOSE (AUTOMATED)2023-08-23 12:36:56* Test Item Value Reference Range Interpretation Comme nts POCT GLU (test code = 2804962595) 131 mg/dL 70-110 H Lab Interpretation (test cod e = 75424-7) Abnormal [facility] GLUCOSE (AUTOMATED)2023-08-23 09:17:23* Test Item Value Reference Range Interpretation Comme nts POCT GLU (test code = 9360100403) 154 mg/dL 70-110 H Lab Interpretation (test cod e = 91206-3) Abnormal [facility] GLUCOSE (AUTOMATED)2023-08-23 05:03:01* Test Item Value Reference Range Interpretation Comme nts POCT GLU (test code = 0602615876) 183 mg/dL 70-110 H Lab Interpretation (test cod e = 85308-9) Abnormal [facility] Metabolic Panel (NA, K, CL, CO2, GLUCOSE, BUN, CREATININE, CA)2023-08-23 01:49:58* Test Item Value Reference Range Interpretation Comme nts NA (test code = 0695011861) 132 mmol/L 135-145 L K (test code = 2381824587) 4.1 mmol/L 3.5-5.0 CL (test code = 0933654720) 101 mmol/L 98-108 CO2 TOTAL (test code = 6845749320) 28 mmol/L 23-31 AGAP (test code = 9939704594) 3 2-16 BUN (test code = 0185151632) 17 mg/dL 7-23 GLUCOSE (test code = 5748801061) 149 mg/dL 70-110 H CREATININE (test code = 2160-0) 0.97 mg/dL 0.60-1.25 CALCIUM (test code = 4446703242) 8.4 mg/dL 8.6-10.6 L eGFR (test code = 25735-4) 91.6 mL/min/1.73m2 CKD-EPI eGFR (2020). Assuming creatinine has been stable day-to-day for at least three months, the eGFR indicates Category G1 (>= 90 mL/min/1.73 m2) Lab Interpretation (test code = 65859-4) Abnormal [facility] GLUCOSE (AUTOMATED)2023-08-23 00:43:06* Test Item Value Reference Range Interpretation Comme nts POCT GLU (test code = 7226447171) 126 mg/dL 70-110 H Lab Interpretation (test cod e = 43375-3) Abnormal [facility] HospitalCortisol [id number] 22:59:03* Test Item Value Reference Range Interpretation Comme nts IBRAHIMA AM (test code = 8201913200) 24.7 ug/dL 4.5-23.0 H GINA (test code = GINA) Biotin has been reported to cause a positive bias, interpret results relative to patient's use of biotin. Lab Interpretation (test code = 40911-0) Abnormal [facility])2023-08-22 21:29:10* Test Item Value Reference Range Interpretation Comme [facility] POCT GLU (test code = 1826407093) 341 mg/dL 70-110 H Lab Interpretation (test cod e = 73690-2) Abnormal [facility] HospitalUric Fuqy2842-43-41 19:53:59* Test Item Value Reference Range Interpretation Comme nts URIC ACID (test code = 8222745639) 6.4 mg/dL 3.6-8.0 Lab Interpretation (test cod e = 69296-5) [facility] (NA, K, CL, CO2, GLUCOSE, BUN, CREATININE, CA)2023-08-22 14:43:15* Test Item Value Reference Range Interpretation Comme nts NA (test code = 6869803668) 138 mmol/L 135-145 K (test code = 8442822328) 4.6 mmol/L 3.5-5.0 CL (test code = 0925366384) 102 mmol/L 98-108 CO2 TOTAL (test code = 6368419172) 28 mmol/L 23-31 AGAP (test code = 0830891408) 8 2-16 BUN (test code = 9165971943) 34 mg/dL 7-23 H GLUCOSE (test code = 9752366634) 224 mg/dL 70-110 H CREATININE (test code = 2160-0) 1.89 mg/dL 0.60-1.25 H CALCIUM (test code = 3547538345) 9.4 mg/dL 8.6-10.6 eGFR (test code = 18877-1) 41.1 mL/min/1.73m2 CKD-EPI eGFR (2020). Assuming creatinine has been stable day-to-day for at least three months, the eGFR indicates Category G3b (30 - 44 mL/min/1.73 m2) Lab Interpretation (test code = 88818-9) Abnormal [facility] HospitalCreatine Tnsqpw3636-28-44 14:42:45* Test Item Value Reference Range Interpretation Comme nts CK (test code = 7127357552) 224 U/L 33-194 H Lab Interpretation (test cod e = 38250-5) Abnormal [facility] HospitalPhosphorus Kofyq8993-24-59 12:10:01* Test Item Value Reference Range Interpretation Comme nts PHOSPHORUS (test code = 2479759320) 5.8 mg/dL 2.5-5.0 H Lab Interpretation (test cod e = 08400-7) Abnormal [facility] HospitalBasi Metabolic Panel (NA, K, CL, CO2, GLUCOSE, BUN, CREATININE, CA)2023-08-22 04:41:19* Test Item Value Reference Range Interpretation Comme nts NA (test code = 8630681252) 124 mmol/L 135-145 L K (test code = 8508733441) 4.7 mmol/L 3.5-5.0 CL (test code = 1882087813) 93 mmol/L 98-108 L CO2 TOTAL (test code = 3878197712) 18 mmol/L 23-31 L AGAP (test code = 3398136684) 13 2-16 BUN (test code = 1689685091) 68 mg/dL 7-23 H GLUCOSE (test code = 2250329637) 116 mg/dL 70-110 H CREATININE (test code = 2160-0) 6.60 mg/dL 0.60-1.25 H CALCIUM (test code = 5976388949) 9.0 mg/dL 8.6-10.6 eGFR (test code = 31832-4) 9.2 mL/min/1.73m2 CKD-EPI eGFR (2020). Assuming creatinine has been stable day-to-day for at least three months, the eGFR indicates Category G5 (<= 14mL/min/1.73 m2) Lab Interpretation (test code = 21147-4) Abnormal [facility] HospitalCT ABDOMEN PELVIS WO [id number] 02:22:05Exam: CT Abdomen and Pelvis without Contrast, [...] osseous finding. Subacute/chronic left-sided rib fractures.Soft tissues: Unremarkable.[facility]. Metabolic Panel (69247) 2023-08-22 02:21:33* Test Item Value Reference Range Interpretation Comme nts NA (test code = 4240891842) 120 mmol/L 135-145 L K (test code = 9296754482) 4.8 mmol/L 3.5-5.0 CL (test code = 9671992025) 85 mmol/L 98-108 L CO2 TOTAL (test code = 5373997093) 21 mmol/L 23-31 L AGAP (test code = 6822946427) 14 2-16 BUN (test code = 7202951155) 70 mg/dL 7-23 H GLUCOSE (test code = 2873887792) 97 mg/dL 70-110 CREATININE (test code = 2160-0) 8.39 mg/dL 0.60-1.25 H TOTAL BILI (test code = 6062007655) 0.7 mg/dL 0.1-1.1 CALCIUM (test code = 8101460651) 8.8 mg/dL 8.6-10.6 T PROTEIN (test code = 1792068555) 7.2 g/dL 6.3-8.2 ALBUMIN (test code = 6224569177) 4.1 g/dL 3.5-5.0 ALK PHOS (test code = 4275406481) 95 U/L 34-122 ALTv (test code = 1742-6) 12 U/L 5-50 AST(SGOT) (test code = 8811868325) 24 U/L 13-40 eGFR (test code = 48709-3) 6.9 mL/min/1.73m2 CKD-EPI eGFR (2020). Assuming creatinine has been stable day-to-day for at least three months, the eGFR indicates Category G5 (<= 14mL/min/1.73 m2) Lab Interpretation (test code = 89322-1) Abnormal [facility] HospitalLipase2024-04-28 02:15:32* Test Item Value Reference Range Interpretation Comme nts LIPASE (test code = 6763914240) 758 U/L 0-220 H Lab Interpretation (test cod e = 31206-3) [facility]gj[facility]26-20-90 01:58:31* Test Item Value Reference Range Interpretation [...] g/dL 31.2-35.0 H RDW-SD (test code = 53831-4) 36.0 fL 38.5-51.6 L RDW-CV (test code = 788-0) 11.5 % 12.1-15.4 L PLT (test code = 777-3) 312 150-328 MPV (test code = 94165-0) 9.4 fL 9.8-13.0 L NRBC/100 WBC (test code = 8094224762) 0.0 0.0-10.0 NRBC x10^3 (test code = 1157296032) See_Comment [Automated message] The system which generated this result transmitted reference range: 10*3/?L. The reference range was not used to interpret this result as normal/abnormal. GRAN MAT (NEUT) % (test code = 770-8) 82.7 % IMM GRAN % (test code = 9277189197) 0.50 % LYMPH % (test code = 736-9) 6.7 % MONO % (test code = 5905-5) 9.8 % EOS % (test code = 713-8) 0.2 % BASO % (test code = 706-2) 0.1 % GRAN MAT x10^3(ANC) (test code = 6227993435) 12.19 10*3/uL 1.99-6.95 H IMM GRAN x10^3 (test code = 0934814062) 0.08 10*3/uL 0.00-0.06 H LYMPH x10^3 (test code = 731-0) 0.99 10*3/uL 1.09-3.23 L MONO x10^3 (test code = 742-7) 1.44 10*3/uL 0.36-1.02 H EOS x10^3 (test code = 711-2) 0.03 10*3/uL 0.06-0.53 L BASO x10^3 (test code = 704-7) 0.01-0.09 Lab Interpretation (test code = 36513-1) Abnormal [facility] GLUCOSE (AUTOMATED)2023-08-16 22:02:57* Test Item Value Reference Range Interpretation Comme nts POCT GLU (test code = 8866128675) 112 mg/dL 70-110 H Lab Interpretation (test cod e = 24470-5) Abnormal [facility] GLUCOSE (AUTOMATED)2023-08-16 16:59:58* Test Item Value Reference Range Interpretation Comme nts POCT GLU (test code = 4473871913) 127 mg/dL 70-110 H Lab Interpretation (test cod e = 75840-8) Abnormal [facility] GLUCOSE (AUTOMATED)2023-08-16 12:48:23* Test Item Value Reference Range Interpretation Comme nts POCT GLU (test code = 9247307393) 175 mg/dL 70-110 H Lab Interpretation (test cod e = 57445-2) Abnormal [facility] GLUCOSE (AUTOMATED)2023-08-16 02:07:02* Test Item Value Reference Range Interpretation Comme nts POCT GLU (test code = 5544190108) 195 mg/dL 70-110 H Notified Provide r Lab Interpretation (test code = 84755-0) Abnormal [facility] GLUCOSE (AUTOMATED)2023-08-15 21:36:15* Test Item Value Reference Range Interpretation Comme nts POCT GLU (test code = 4262052220) 284 mg/dL 70-110 H Lab Interpretation (test cod e = 07010-4) Abnormal [facility] GLUCOSE (AUTOMATED)2023-08-15 16:56:02* Test Item Value Reference Range Interpretation Comme nts POCT GLU (test code = 4120167603) 74 mg/dL 70-110 Lab Interpretation (test cod e = 52360-8) Normal [facility] GLUCOSE (AUTOMATED)2023-08-15 13:12:34* Test Item Value Reference Range Interpretation Comme nts POCT GLU (test code = 7545871585) 258 mg/dL 70-110 H Lab Interpretation (test cod e = 55403-2) Abnormal [facility] GLUCOSE (AUTOMATED)2023-08-15 04:04:43* Test Item Value Reference Range Interpretation Comme nts POCT GLU (test code = 0130937491) 120 mg/dL 70-110 H Lab Interpretation (test cod e = 80263-1) Abnormal [facility] HospitalGlycosylated Hemoglobin (A1C)2023-08-15 01:17:32* Test Item Value Reference Range Interpretation Comme nts HGB A1C (test code = 4548-4) 8.9 % 4.0-5.7 H GINA (test code = GINA) Reference RangesNormal: <5.7%Prediabetes: 5.7 - 6.4%Diabetes: > 6.5% Lab Interpretation (test code = 95787-1) Abnormal [facility] HospitalBeta Cpkidkr-Ptuistpn5893-80-21 01:00:45* Test Item Value Reference Range Interpretation Comme nts BOH (test code = 0012961244) 0.5 mmol/L GINA (test code = GINA) Normal Ranges: ? ? Nonfasting ? Less than 0.1 mmol/L ? ? Overnight Fast ? ? ? Less than 0.4 mmol/L ? ? Fasting (1-2 weeks) ?6-8 mmol/L Test developed and characteristics determined by [facility] Laboratory Services. [facility] HospitalCreatine Fnxuvu7009-09-42 23:07:16* Test Item Value Reference Range Interpretation Comme nts CK (test code = 5028781799) 148 U/L 33-194 Lab Interpretation (test cod e = 04084-6) Normal [facility] HospitalTROPONIN [id number] 22:18:16* Test Item Value Reference Range Interpretation Comme nts TROPONIN I (test code = 5548344831) 0.081 ng/mL <=0.034 H GINA (test code [...] of biotin. Lab Interpretation (test code = 46905-5) Abnormal [facility] HospitalN-TERMINAL APK-GQC3131-51-20 22:15:55* Test Item Value Reference Range Interpretation Comme [facility] NT-proBNP (test code = 41134-8) 999 pg/mL <=125 H GINA (test code = GINA) Positive: Heart Failure Likely Lab Interpretation (test code = 95345-5) Abnormal [facility] HospitalMagnesium2024-04-20 22:07:17* Test Item Value Reference Range Interpretation Comme nts MAGNESIUM (test code = 1635869757) 1.8 mg/dL 1.7-2.4 Lab Interpretation (test cod e = 45362-7) Normal [facility] HospitalCOMP. METABOLIC PANEL (82634)2023 22:06:57* Test Item Value Reference Range Interpretation Comme nts NA (test code = 9619900456) 130 mmol/L 135-145 L K (test code = 4971538230) 3.4 mmol/L 3.5-5.0 L CL (test code = 7154193470) 93 mmol/L 98-108 L CO2 TOTAL (test code = 0389251967) 26 mmol/L 23-31 AGAP (test code = 0252997810) 11 2-16 BUN (test code = 6471247338) 39 mg/dL 7-23 H GLUCOSE (test code = 9352683429) 142 mg/dL 70-110 H CREATININE (test code = 2160-0) 2.40 mg/dL 0.60-1.25 H TOTAL BILI (test code = 8573377816) 1.2 mg/dL 0.1-1.1 H CALCIUM (test code = 6547404926) 9.1 mg/dL 8.6-10.6 T PROTEIN (test code = 7179176397) 7.7 g/dL 6.3-8.2 ALBUMIN (test code = 8984021818) 4.2 g/dL 3.5-5.0 ALK PHOS (test code = 9766215846) 102 U/L 34-122 ALTv (test code = 1742-6) 16 U/L 5-50 AST(SGOT) (test code = 2063040483) 26 U/L 13-40 eGFR (test code = 66198-0) 30.9 mL/min/1.73m2 CKD-EPI eGFR (2020). Assuming creatinine has been stable day-to-day for at least three months, the eGFR indicates Category G3b (30 - 44 mL/min/1.73 m2) Lab Interpretation (test code = 44578-5) Abnormal [facility] HospitalPhosphorus2024-04-20 22:06:37* Test Item Value Reference Range Interpretation Comme nts PHOSPHORUS (test code = 8066240490) 4.9 mg/dL 2.5-5.0 Lab Interpretation (test cod e = 21091-1) Normal [facility] HospitalLIPASE2024-04-20 22:06:17* Test Item Value Reference Range Interpretation Comme nts LIPASE (test code = 6985596616) 204 U/L 0-220 Lab Interpretation (test cod e = 95153-2) Normal [facility] WITH [id number] 21:54:56* Test Item Value Reference Range Interpretation [...] g/dL 31.2-35.0 H RDW-SD (test code = 39122-6) 38.1 fL 38.5-51.6 L RDW-CV (test code = 788-0) 11.8 % 12.1-15.4 L PLT (test code = 777-3) 235 150-328 MPV (test code = 92422-9) 11.1 fL 9.8-13.0 NRBC/100 WBC (test code = 3975357579) 0.0 0.0-10.0 NRBC x10^3 (test code = 2326698659) See_Comment [Automated message] The system which generated this result transmitted reference range: 10*3/?L. The reference range was not used to interpret this result as normal/abnormal. GRAN MAT (NEUT) % (test code = 770-8) 80.3 % IMM GRAN % (test code = 2901798016) 0.60 % LYMPH % (test code = 736-9) 8.7 % MONO % (test code = 5905-5) 10.0 % EOS % (test code = 713-8) 0.2 % BASO % (test code = 706-2) 0.2 % GRAN MAT x10^3(ANC) (test code = 4532201364) 10.18 10*3/uL 1.99-6.95 H IMM GRAN x10^3 (test code = 3047667338) 0.07 10*3/uL 0.00-0.06 H LYMPH x10^3 (test code = 731-0) 1.11 10*3/uL 1.09-3.23 MONO x10^3 (test code = 742-7) 1.27 10*3/uL 0.36-1.02 H EOS x10^3 (test code = 711-2) 0.03 10*3/uL 0.06-0.53 L BASO x10^3 (test code = 704-7) 0.03 10*3/uL 0.01-0.09 Lab Interpretation (test code = 55316-4) Abnormal [facility] HospitalXR CHEST 1 [id number] 21:49:58EXAM: XR CHEST 1 2023 4:38 PM HISTORY: 58 years-old Male with r/o infilrate . TECHNIQUE: Portable AP view of the chest. COMPARISON: 04/21/2023 FINDINGS: Lines and tubes: None. Cardiomediastinal: The cardiomediastinal silhouette is unremarkable. Lungs and pleura: The lungs are clear. No focal consolidation,pneumothorax, or pleural effusion is seen. Included osseous structures show no acuteabnormality.[facility] HospitalCT ABDOMEN PELVIS W [id number] 21:45:03EXAM: CT ABDOMEN AND PELVIS WITH CONTRAST [...] hips ispresent.[facility] HospitalCT TRAUMA HEAD WO [id number] 21:38:37FULL RESULT: Examination: CT TRAUMA HEAD WO CONTRAST on 2023 4:16 PM Clinical Indication: Headache, hypertensive Comparison: None Technique: Noncontrast imaging was obtained from base to vertex.Findings: The sulci and ventricles were unremarkable. There may be subtlewhite matter microvascularischemic changes, notably in the anteriorperiventricular region, but there is no evidence for hemorrhage or otherclearly acute intracranial process.[facility] HospitalLaohic Acid Whole Mvjyg2332-43-92 21:30:25* Test Item Value Reference Range Interpretation Comme [facility] LACTIC ACID (test code = 6969525187) 1.58 mmol/L 0.50-2.20 Lab Interpretation (test cod e = 79506-3) Normal [facility] Care Venous Blood [id number] 21:30:25 * Test Item Value Reference Range Interpretation Comme nts PH (test code = 8073280605) 7.34 7.32-7.42 PCO2 NOY (test code = 6957120493) 45 41-51 PO2 NOY (test code = 3016313173) 24 25-40 L HCO3 NOY (test code = 6076524816) 24 24-28 AC VBE(BEAKER) (test code = 8010213340) -1.9 mEq/L Lab Interpretation (test cod e = 57313-9) Abnormal [facility] GLUCOSE (AUTOMATED)2023 20:26:17* Test Item Value Reference Range Interpretation Comme nts POCT GLU (test code = 6702679738) 165 mg/dL 70-110 H Lab Interpretation (test cod e = 12712-5) Abnormal [facility] GLUCOSE(AGE >30DAYS)2023 20:26:00* Test Item Value Reference Range Interpretation Comme nts POCT Glu (age>30days) (test code = 3342) 165 mg/dL 70-110 A Lab Interpretation (test cod e = 08324-0) [facility] 18:15:28* Test Item Value Reference Range Interpretation Comme nts POCT GLU (test code = 8730682962) 218 mg/dL 70-110 H Lab Interpretation (test cod e = 63656-6) [facility]2023-04-23 15:35:23* Test Item Value Reference Range Interpretation Comme nts POCT GLU (test code = 0561761620) 186 mg/dL 70-110 H Lab Interpretation (test cod e = 04168-1) [facility]2023-04-23 02:57:57* Test Item Value Reference Range Interpretation Comme nts POCT GLU (test code = 1738162737) 82 mg/dL 70-110 Lab Interpretation (test cod e = 12527-2) Normal [facility] GLUCOSE (AUTOMATED)2023-04-23 00:33:51* Test Item Value Reference Range Interpretation Comme nts POCT GLU (test code = 3665027504) 181 mg/dL 70-110 H Lab Interpretation (test cod e = 54101-9) [facility] 22:54:22* Test Item Value Reference Range Interpretation Comme nts POCT GLU (test code = 4893417120) 127 mg/dL 70-110 H Lab Interpretation (test cod e = 63727-6) [facility] 20:37:54* Test Item Value Reference Range Interpretation Comme nts POCT GLU (test code = 0587574570) 230 mg/dL 70-110 H Lab Interpretation (test cod e = 56071-7) [facility] 17:46:23* Test Item Value Reference Range Interpretation Comme nts POCT GLU (test code = [id number]) 144 mg/dL 70-110 H Lab Interpretation (test cod e = 34662-1) [facility] 13:42:26* Test Item Value Reference Range Interpretation Comme nts POCT GLU (test code = [id number]) 229 mg/dL 70-110 H Lab Interpretation (test cod e = 11591-2) Abnormal [facility] GLUCOSE (AUTOMATED)2023-04-22 03:33:49* Test Item Value Reference Range Interpretation Commtito garcía POCT GLU (test code = [id number]) 222 mg/dL 70-110 H Lab Interpretation (test cod e = 10965-9) Abnormal [facility] GLUCOSE (AUTOMATED)2023-04-22 01:36:03* Test Item Value Reference Range Interpretation Commtito garcía POCT GLU (test code = [id number]) 282 mg/dL 70-110 H Lab Interpretation (test cod e = 76173-1) [facility] 22:26:30* Test Item Value Reference Range Interpretation Comme raquel Height (test code = 7347308526) 63 in Weight (test code = 2696590146) 130 lbs Systolic BP (test code = 3904861787) 122 mmHg Diastolic BP (test code = 9634341207) 81 mmHg Heart Rate (test code = 1448436135) 105 bpm BSA (test code = 7457401868) 1.[address] Depresion (mm) (test code = 9348294353) [address] Depression (mm) (test code = 3911972928) 0 mm Radiology Study observation (narrative) (test code = 07684-1) GINA (test code = GINA) Table formatting [...] Interpretation Comme nts Height (test code = 5805273288) 63 in Weight (test code = 8945767455) 130 lbs Systolic BP (test code = 8099623121) 114 mmHg Diastolic BP (test code = 8920871646) 75 mmHg Heart Rate (test code = 2587544187) 98 bpm BSA (test code = 4982790524) 1.61 m2 LVIDD (test code = 3758752594) 4.00 cm Left Ventricular End Diastolic Volume by Teichholz Method (test code = 8211810) 70.0 mL IVS (test code = 1125734686) 1.07 cm Interventricular Septum Diastolic Thickness by 2D (test code = 0185931) 1.07 cm LVPWD (test code = 2859111807) 1.05 cm PW (test code = 7231118753) 1.05 cm 0.6-1.1 EF(Teich) (test code = 8377988867) 62.60 % LVIDS (test code = 4277274684) 2.70 cm Left Ventricular End Systolic Volume by Teichholz Method (test code = 3383926) 26.2 mL FS (test code = 6663382869) 33 % EF - 2D (test code = 59917848) 62.60 % Ao root diam (test code = 5163807718) 3.70 cm Aortic root (test code = 2446544577) 3.7 cm Ao root annulus (test code = 7024664385) 3.7 cm LA size (test code = 7077608492) 3.2 cm LVOT diameter (test code = 9780921546) 2.08 cm LVOT area (test code = 3393660124) 3.40 cm2 MV Peak E Nima (test code = 8776812475) 48.3 cm/s E wave decelartion time (test code = 1576556910) 0.15 s MV Peak A Nima (test code = 1000965968) 74.4 cm/s E/A ratio (test code = 3197774208) 0.65 ratio MV Prop V (test code = 3866748009) 21.20 cm/s LAV(MOD-sp4) (test code = 4700534382) 35.30 mL Tapse (test code = 2109524412) 1.73 cm LVOT stroke volume (test code = 4090537807) 45.20 cm3 LVOT peak nima (test code = 7494427938) 79.0 cm/s LVOT mn grad (test code = 7138545196) 1.3 mmHg AV LVOT peak gradient (test code = 8131799641) 2.50 mmHg LVOT peak VTI (test code = 7958623598) 13.2 cm LV V1 mean (test code = 3927139695) 52.90 cm/s Ao peak nima (test code = 6699208438) 83.8 cm/s AV area peak nima (test code = 0445089388) 3.2 cm2 Ao max PG (test code = 0129040424) 2.80 mm[Hg] AV peak gradient (test code = 3655494320) 2.8 mmHg LA Volume Index (BP) (test code = 3155071784) 25.9 mL/m2 LA volume (BP) (test code = 3950941596) 41.8 mL LAV(MOD-sp2) (test code = 3977071816) 40.90 mL A4C EF (test code = 6423577631) 54.40 % EF(sp4-el) (test code = 1410857071) 55.00 % SV(MOD-sp4) (test code = 6669416646) 53.10 mL SV(sp4-el) (test code = 3743082409) 55.60 mL Radiology Study observation (narrative) (test code = 70913-0) GINA (test code = GINA) ?Left?Ventricle: Left [...] Comme nts POCT GLU (test code = 9496879105) 198 mg/dL 70-110 H Lab Interpretation (test cod e = 75333-3) [facility] [id number] 15:12:07EXAM: XR CHEST 1 VW HISTORY: NSTEMI [...] Comme nts POCT GLU (test code = 7770044367) 243 mg/dL 70-110 H Lab Interpretation (test cod e = 00696-4) Abnormal [facility] HospitalFerritin [id number] 07:28:27* Test Item Value Reference Range Interpretation Comme nts FERRITIN (test code = 1940164931) 76.3 ng/mL 18.0-464.0 GINA (test code = GINA) Biotin has been reported to cause a negative bias, interpret results relative to patient's use of biotin. Lab Interpretation (test code = 91361-1) Normal [facility] HospitalGlycosylated Hemoglobin (A1C)2023-04-21 07:25:47* Test Item Value Reference Range Interpretation Comme nts HGB A1C (test code = 4548-4) 12.6 % 4.0-5.7 H GINA (test code = GINA) Reference RangesNormal: <5.7%Prediabetes: 5.7 - 6.4%Diabetes: > 6.5% Lab Interpretation (test code = 88430-1) Abnormal [facility] HospitalThyroid Stimulating [id number] 07:24:07 * Test Item Value Reference Range Interpretation Comme nts TSH (test code = 3657475613) 2.56 See_Comment [Automated messa ge] The system which generated this result transmitted reference range: 0.45 - 4.70 mIU/L. The reference range was not used to interpret this result as normal/abnormal. Lab Interpretation (test code = 36596-2) Normal [facility] HospitalPhosphorus2023-12-27 06:52:06* Test Item Value Reference Range Interpretation Comme nts PHOSPHORUS (test code = 9720709973) 3.2 mg/dL 2.5-5.0 Lab Interpretation (test cod e = 81082-8) Normal [facility] HospitalCritical [id number] 02:54:15NServando chin MD ? ? 04/20/2023 ?8:54 [...] procedures and treating other patients. [facility] HospitalTr[facility] centerdian [id number] 02:30:18* Test Item Value Reference Range Interpretation Comme nts TROPONIN I (test code = 4884558041) 0.154 ng/mL <=0.034 H GINA (test code [...] of biotin. Lab Interpretation (test code = 68647-7) Abnormal [facility] HospitalETHANOL2023-12-27 02:24:46 ALCOHOL<10mg/dL04/20/2023 8:24 PM [facility]<10 [id number] Toxic>100 Depression of MOHS SURGEON/GENERAL DERMATOLOGIST>400 Fatalities ReportedUnDell [facility] University [facility] TexasCOMP. METABOLIC PANEL (65397)2023-04-21 02:19:15* Test Item Value Reference Range Interpretation Comme nts NA (test code = 0072209835) 129 mmol/L 135-145 L K (test code = 8687971178) 3.5 mmol/L 3.5-5.0 CL (test code = 8125758950) 94 mmol/L 98-108 L CO2 TOTAL (test code = 1785787614) 28 mmol/L 23-31 AGAP (test code = 5655105269) 7 2-16 BUN (test code = 7596974618) 26 mg/dL 7-23 H GLUCOSE (test code = 7411222866) 314 mg/dL 70-110 H CREATININE (test code = 5389222920) 0.92 mg/dL 0.60-1.25 TOTAL BILI (test code = 9586822920) 0.8 mg/dL 0.1-1.1 CALCIUM (test code = 2012111624) 8.5 mg/dL 8.6-10.6 L T PROTEIN (test code = 3451889596) 6.0 g/dL 6.3-8.2 L ALBUMIN (test code = 9783981484) 3.3 g/dL 3.5-5.0 L ALK PHOS (test code = 6008973225) 95 U/L 34-122 ALTv (test code = 1742-6) 23 U/L 5-50 AST(SGOT) (test code = 7892467201) 30 U/L 13-40 eGFR (test code = 42520-5) 98.2 mL/min/1.73m2 CKD-EPI eGFR (2020). Assuming creatinine has been stable day-to-day for at least three months, the eGFR indicates Category G1 (>= 90 mL/min/1.73 m2) Lab Interpretation (test code = 29928-2) Abnormal [facility] WITH [id number] 02:03:54* Test Item Value Reference Range Interpretation [...] g/dL 31.2-35.0 H RDW-SD (test code = 22299-6) 36.2 fL 38.5-51.6 L RDW-CV (test code = 788-0) 11.6 % 12.1-15.4 L PLT (test code = 777-3) 178 See_Comment [Automated messa ge] The system which generated this result transmitted reference range: 150 - 328 10*3/?L. The reference range was not used to interpret this result as normal/abnormal. MPV (test code = 10950-3) 10.9 fL 9.8-13.0 NRBC/100 WBC (test code = 4881017580) 0.0 See_Comment [Automated Cennox ssage] The system which generated this result transmitted reference range: 0.0 - 10.0 /100 WBCs. The reference range was not used to interpret this result as normal/abnormal. NRBC x10^3 (test code = 1890899388) See_Comment [Automated [place] ge] The system which generated this result transmitted reference range: 10*3/?L. The reference range was not used to interpret this result as normal/abnormal. GRAN MAT (NEUT) % (test code = 770-8) 81.3 % IMM GRAN % (test code = 3035750041) 0.30 % LYMPH % (test code = 736-9) 10.5 % MONO % (test code = 5905-5) 7.6 % EOS % (test code = 713-8) 0.1 % BASO % (test code = 706-2) 0.2 % GRAN MAT x10^3(ANC) (test code = 1307179553) 9.55 10*3/uL 1.99-6.95 H IMM GRAN x10^3 (test code = 7828618217) 0.04 10*3/uL 0.00-0.06 LYMPH x10^3 (test code = 731-0) 1.23 10*3/uL 1.09-3.23 MONO x10^3 (test code = 742-7) 0.89 10*3/uL 0.36-1.02 EOS x10^3 (test code = 711-2) 0.06-0.53 L BASO x10^3 (test code = 704-7) 0.01-0.09 Lab Interpretation (test code = 62389-6) Abnormal [facility] HospitalPOCT GLUCOSE (AUTOMATED)2023-04-21 01:55:51* Test Item Value Reference Range Interpretation Comme [facility] POCT GLU (test code = 6488512629) 408 mg/dL 70-110 H Lab Interpretation (test cod e = 87543-0) Abnormal [facility] HospitalCOMPREHENSIVE METABOLIC [id number] 05:07:51* Test Item Value Reference Range Interpretation Comme [facility] GLUCOSE (test code = 2217) 224 MG/DL 70-99 H BUN (test code = 2208) 22 MG/DL 6-20 H CREATININE (test code = 2214) 0.71 MG/DL 0.80-1.40 L eGFR (2020 CKD-EPI) (test code = 46711) 109 ML/MIN/1.73 >60 CALC BUN/CREAT (test code [...] code = 2219) 24 U/L 5-50 LIPID [id number] 05:07:51* Test Item Value Reference Range Interpretation [...] SPECIMENS. FOR MOREINFORMATION, SEE CLIENT ANNOUNCEMENT AT [email or web address] RISK RATIO LDL/HDL (test code = 2238) 1.72 RATIO <3.55 PSA, [id number] 05:07:10* Test Item Value Reference Range Interpretation Comme nts PSA, TOTAL (test code = 2606) 19.70 NG/ML See_Comment H NOTE: Methodolog y is Ashley Jasmina Electrochemiluminescence Immunoassay traceable to WHO reference standard 96/760. UNLESS OTHERWISE INDICATED, ALL TESTING PERFORMED [facility] [address] [place] [address] ARRANGER ASSEMBLER: DUSTIN COLMENARES M.D. CLIA NUMBER [id number] [place]. [id number] [Automated message] The system which generated this result transmitted reference range: <=4.00. The reference range was not used to interpret this result as normal/abnormal. HEMOGLOBIN [id number] 02:46:58* Test Item Value Reference Range Interpretation Comme nts HEMOGLOBIN A1c (test code = 96621) 11.0 % 4.2-5.6 H [employer] GUIDELINES FOR HGB A1C: [...] OR LABORATORY CONSULTATION. CBC W/AUTO DIFF WITH [id number] 02:32:39* Test Item Value Reference Range Interpretation [...] 0.00-0.10 ABS NUCLEATED RBCS (test code = 34363) 0.00 K/UL 0.00-0.11 Consult Notes Date/Time Note [...] when jensen is moved. COMMUNICATION Primary Language: Barbadian Able to Verbalize needs: Yes Vision:good; no [...] Minutes: 20 min Jesica Murphy,PT [place] License: [id number] Required Components in Determining Evaluation Level History: No personal factors or comorbidities: No (96858) 1-2 personal factors and/or comorbidities: Yes (09392) 3 or more personal factors and/ or comorbidities: No (72829) Examination of Body System(s) Addressing 1-2 elements: Yes (36968) Addressing a total of 3 or more elements: No (13916) Addressing a total of 4 or more elements: No (87357) Clinical Presentation Stable: Yes (35387) Evolving: No (90057) Unstable: No (71314) Clinical Decision Making (Complexity) Low: No (69280) Moderate: Yes (89994) High: No (16379) Jesica Murphy PT [facility] [employer] 2023-08-15 10:01:34 Associated Order(s): CONSULT CARDIOLOGY [place] [...] of Onset No Significant Medical Problems Mother [place] (myocardial infarction) Father SOCIAL HISTORY Social History [...] specified complication Elevated troponins: Likely type II [place] in the [...] feel free to call our office at [phone]. I would be happy to be of further assistance for Saturnino Shah wellbeing. Voice recognition software has been used to create portions of this document. An attempt to proofread has been made to minimize errors. Please do not hesitate to call with any questions. Benja Rivera MD Solar Applications Development Engineer, Division of Cardiology [facility] 2023-04-21 08:46:48 Associated Order(s): CONSULT ENDOCRINOLOGY Endocrinology Consult Note Consultation requested by: Service: White team Reason for Consultation: Diabetes Date of Service: 04/21/23 HPI 57 year old male with a PMH of HTN, T2DM, Fmhx premature CAD who presented with complaints of polyuria and weakness at [facility] ER. Patient transferred to [place] for further work up. Endocrinology consulted for diabetes management Diabetes Type and year diagnosed: 2011, type 2 Diabetes complications: none Hx of DM regimen: no meds for 3 years Compliance: - BG monitoring? - Hypoglycemia hx: no Hypoglycemia unawareness? no Symptoms of hyperglycemia: polyuria Living situation and support: homeless, lives with different relatives Diabetes doctor: PCP in [place], has not seen for few years Family hx of diabetes: no HX of glucocorticoid use: no HX of transfusions or EPO in last 6 months: no PAST MEDICAL HISTORY Past Medical History: Diagnosis Date HTN (hypertension) Uncontrolled diabetes mellitus with hyperglycemia History reviewed. No pertinent surgical history. Family History Problem Relation Age of Onset No Significant Medical Problems Mother [place] (myocardial infarction) Father Social History Tobacco Use [...] with complaints of polyuria and weakness at [facility] ER. Patient transferred to [place] for further work up. Endocrinology consulted for [...] Cabrera.. Austin Amaro. Endocrinology Fellow, PGY 5 PERSON Associated attestation - Rita Cabrera MD - 04/22/2023 2:11 PM YARD PERSON Endocrinology Faculty Attestation: I evaluated this patient's progress on 04/21/[address] Amaro note as written and revised. I actively participated in the decision-making process. Please see the resident's note for additional details that includes pertinent addendums I made directly in the note during revision. Rita Cabrera MD Solar Applications Development Engineer Division of Endocrinology IM-ENDOCRINOLOGY,DIABET ES & METABOLISM [facility] - Health History and Physical Notes Date/Time Note Provider Source 2023-08-21 22:53:53 [facility] Hospitalist Admission H&P Date of Service: [...] consulted. Patient was given the application for enymotion on last admission and will need to [...] of Onset No Significant Medical Problems Mother [place] (myocardial infarction) Father SOCIAL HISTORY Social History [...] Tobacco user?: NO Patient will require observation [place] [employer] was verified during stay Lyubov Banda MD [facility] 2023 22:58:21 MEDICINE [facility] ADMIT H&P Date of Service: 2023 [...] of Onset No Significant Medical Problems Mother [place] (myocardial infarction) Father ALLERGIES No Known Allergies [...] present Code Status: Presumed Full Code T [facility] EMERGENCY PHYSICIAN STAFF [facility] 2023-04-21 00:39:12 [facility] Admit H&P PCP: Erik Louie Jr Date of Service: 04/20/2023 CHIEF COMPLAINT: Polyuria HISTORY OF PRESENT ILLNESS Saturnino Shah is a 57 year old male with a PMH of HTN, T2DM, Fmhx premature CAD who presented with complaints of polyuria and weakness at [facility] ER. Patient transferred to [place] for further work up. Patient reports that [...] use drugs. Family history: family history includes [place] (myocardial infarction) [...] with resources. Plan: - Admit to [facility] - Trend Troponin to peak - [...] Internal Medicine Department PGY 2, [place] Team PERSON Associated attestation - Bret Banda MD - 04/21/2023 2:47 PM YARD PERSON I reviewed patient's chart, vitals, lab work, current medications and other diagnostic studies. I saw and examined the patient today and agree with the detailed note. I actively participated in the decision-making process. Bret Banda MD Solar Applications Development Engineer Division of Cardiology [facility]
[2024-05-15] MEDS ORDERED: NA CHLORIDE 0.9% 1,000 ML ONE (02:36)
[2024-05-15] MEDS ORDERED: ONDANSETRON 4 MG/2 ML VIAL ONE (02:36)
[2024-05-15 03:44] LABS: Absolute Eosinophils 0.1 K/uL (0-0.5); Absolute Lymphocytes (CBC) 1.3 K/uL (0.7-4.9); Absolute Monocytes 0.6 K/uL (0.1-1.3); Absolute Neutrophil 5.3 K/uL (1.8-8.0); Basophils % 0.6 % (0-1.3); Hematocrit 32.1 % (39.6-49.0); Hemoglobin 11.1 g/dL (13.6-17.9); Lymphocytes % 17.4 % (15.3-44.8); MCH 30.6 pg (27.0-35.0); MCHC 34.6 g/dL (32.0-36.0); MCV 88.5 fL (80-100); MPV 7.4 fL (7.6-11.3); Monocytes % 8.1 % (3.3-12.3); Neutrophils % 71.9 % (41.7-73.7); Platelets 314 thou/uL (152-406); RBC Red Blood Cell Count 3.63 M/uL (4.33-5.43); Red Cell Distribution Width 13.2 % (12.1-15.2)
[2024-05-15 03:53] LABS: Albumin 2.6 g/dL (3.4-5.0); Albumin/Globulin Ratio 0.7 (1.1-1.8); Anion Gap 10.6 mEq/L (5.0-15.0); Bilirubin Total 0.3 mg/dL (0.2-1.0); Globulin 3.7 g/dL (2.3-3.5); Potassium 3.6 mEq/L (3.5-5.1); Protein, Total 6.3 g/dL (6.4-8.2)
--- NOTE | 2024-05-15 05:15 | EDPHYS ---
Physician Documentation [facility] Name: Johnnie Maldonado Age: 58 yrs Sex: Male : 1965 Arrival Date: 05/15/2024 Time: 02:24 Bed 8 Private MD: ED Physician Kolby Parham HPI: 05/15 02:29 This 58 yrs old Male presents to ER via Unassigned with complaints of nausea, sp4 uncontrolled DM. 06:03 58-year-old male who is currently homeless presents with complaint of nausea. Patient sp4 presents with EMS from a local [place]. Patient reports that he has history of uncontrolled diabetes. Historical: - Allergies: 02:34 No Known Allergies; ha1 - Home Meds: 02:34 metformin 1 Oral Tablet 1 tab daily [Active]; ha1 - PMHx: 02:34 diabetes mellitus; Hypertensive disorder; raynaud's; Urinary incontinence; ha1 - PSHx: 02:34 right arm; ha1 - Immunization history:: Adult Immunizations not up to date. - Infectious Disease History:: Denies. - Social history:: Smoking status: Patient reports the use of cigarette tobacco products, denies chronic smoking, but will smoke occasionally. - Family history:: not pertinent. ROS: 06:03 Constitutional: Negative for fever, chills, and weight loss, positive for nausea sp4 06:03 All other systems are negative, Exam: 06:03 Constitutional: This is a well developed, well nourished patient who is awake, alert, sp4 and in no acute distress. Head/Face: Normocephalic, atraumatic. Eyes: Pupils equal round and reactive to light, extra-ocular motions intact. Lids and lashes normal. Conjunctiva and sclera are not injected. Cornea within normal limits. Periorbital areas with no swelling, redness, or edema. ENT: Nares patent. No nasal discharge, no septal abnormalities noted. Tympanic membranes are normal and external auditory canals are clear. Oropharynx with no redness, swelling, or masses, exudates, or evidence of obstruction, uvula midline. Mucous membranes moist. Neck: Trachea midline, no thyromegaly or masses palpated, and no cervical lymphadenopathy. Supple, full range of motion without nuchal rigidity, or vertebral point tenderness. Chest/axilla: Normal chest wall appearance and motion. Nontender with no deformity. No lesions are appreciated. Cardiovascular: Regular rate and rhythm with a normal S1 and S2. No gallops, murmurs, or rubs. Normal PMI, no JVD. No pulse deficits. Respiratory: Lungs have equal breath sounds bilaterally, clear to auscultation and percussion. No rales, rhonchi or wheezes noted. No increased work of breathing, no retractions or nasal flaring. Abdomen/GI: Soft, with normal bowel sounds. No distension or tympany. No guarding or rebound. No evidence of tenderness throughout. Back: No spinal tenderness. No costovertebral tenderness. Skin: Warm, dry with normal turgor. Normal color with no rashes, no lesions, and no evidence of cellulitis. MS/ Extremity: Pulses equal, no cyanosis. Neurovascular intact. Full, normal range of motion. Neuro: Awake and alert, GCS 15, oriented to person, place, time, and situation. Cranial nerves II-XII grossly intact. Motor strength 5/5 in all extremities. Sensory grossly intact. Psych: Awake, alert, with orientation to person, place and time. Behavior, mood, and affect are within normal limits Vital Signs: 02:34 BP 166 / 92; Pulse 83; Resp 18 S; Temp 98.6; Pulse Ox 96% on R/A; Weight 58.06 kg; ha1 Height 5 ft. 1 in. ; 03:17 BP 162 / 84; Pulse 87; Resp 16; Pulse Ox 99% on R/A; dd2 05:35 BP 118 / 74; Pulse 77; Resp 16; Pulse Ox 98% ; dd2 02:34 Body Mass Index 24.19 (58.06 kg, 154.94 cm) ha1 [place] Coma Score: 03:11 Eye Response: spontaneous(4). Motor Response: obeys commands(6). Verbal Response: dd2 oriented(5). Total: 15. 06:03 Eye Response: spontaneous(4). Motor Response: obeys commands(6). Verbal Response: sp4 oriented(5). Total: 15. MDM: 02:31 Medical Screening Exam initiated sp4 06:06 Differential diagnosis: Nonspecific abd pain, gastritis, viral gastroenteritis, sp4 gastroenteritis. Data reviewed: vital signs, nurses notes, EMS record, old medical records, lab test result(s). ED course: Basically blood sugar is elevated but not critically. Patient was stable for discharge.. 05/15 02:29 Order name: Alcohol Level; Complete Time: 05:12 sp4 05/15 02:30 Order name: CBC with Diff; Complete Time: 05:12 sp4 05/15 02:30 Order name: CMP; Complete Time: 03:59 sp4 05/15 02:30 Order name: Lipase; Complete Time: 03:59 sp4 05/15 02:30 Order name: IV Saline Lock; Complete Time: 03:03 sp4 05/15 02:30 Order name: Labs collected and sent; Complete Time: 03:03 sp4 05/15 03:12 Order name: Misc. Order: recollect all labs, hemolyzed; Complete Time: 04:12 vc1 Administered Medications: 03:03 Drug: Ondansetron IVP 4 mg IVP once; over 2 minutes Route: IVP; Site: right forearm; dd2 03:18 Follow up: Response: No adverse reaction dd2 03:03 Drug: NS 0.9% IV 1000 ml IV at 1 bolus Per protocol; to be given as a bolus over 60 dd2 minutes Route: IV; Rate: 1 bolus; Site: right forearm; 03:18 Follow up: Response: No adverse reaction dd2 04:03 Follow up: IV Status: Completed infusion; IV Intake: 1000ml dd2 Disposition: 06:07 Chart complete. sp4 Disposition Summary: 05/15/24 05:15 Discharge Ordered Notes: Location: Home sp4 Problem: new sp4 Symptoms: have improved sp4 Condition: Stable sp4 Diagnosis - Problem related to social environment, unspecified sp4 - Type 2 diabetes mellitus with hyperglycemia sp4 - Nausea sp4 Followup: sp4 - With: Private Physician - When: As needed - Reason: Re-evaluation by your physician Discharge Instructions: - Discharge Summary Sheet sp4 Forms: - Patient Portal Instructions sp4 Signatures: Dispatcher [employer] Pati Oneil RN RN vc1 Cari Wilburn RN RN ha1 Kolby Parham MD MD sp4 TOI CALDERON RN RN dd2
--- NOTE | 2024-05-15 05:15 | ER ---
Nurse's Notes [facility] Name: Johnnie Maldonado Age: 58 yrs Sex: Male : 1965 Arrival Date: 05/15/2024 Time: 02:24 Bed 8 Private MD: Diagnosis: Problem related to social environment, unspecified;Type 2 diabetes mellitus with hyperglycemia;Nausea Presentation: 05/15 02:34 Chief complaint: EMS states: nausea and vomiting. ha1 02:34 Coronavirus screen: Client denies travel out of the [place] in the last 14 days. Ebola ha1 Screen: No symptoms or risks identified at this time. Initial Sepsis Screen: Does the patient meet any 2 criteria? No. Patient's initial sepsis screen is negative. Does the patient have a suspected source of infection? No. Patient's initial sepsis screen is negative. Risk Assessment: Do you want to hurt yourself or someone else? Patient reports no desire to harm self or others. Onset of symptoms was May 15, 2024. 02:34 Method Of Arrival: EMS: [facility] ha1 02:34 Acuity: DONTE 3 ha1 Triage Assessment: 02:34 General: Appears comfortable, Behavior is calm, cooperative. Pain: Denies pain. Neuro: ha1 Level of Consciousness is awake, alert, obeys commands, Oriented to person, place, time, situation. Cardiovascular: Capillary refill < 3 seconds Patient's skin is warm and dry. Respiratory: Airway is patent Respiratory effort is even, unlabored, Respiratory pattern is regular, symmetrical. GI: Abdomen is round non-distended, Reports nausea, vomiting. Derm: Skin is moist, Skin is normal. Musculoskeletal: Circulation, motion, and sensation intact. Range of motion: intact in all extremities. Historical: - Allergies: 02:34 No Known Allergies; ha1 - Home Meds: 02:34 metformin 1 Oral Tablet 1 tab daily [Active]; ha1 - PMHx: 02:34 diabetes mellitus; Hypertensive disorder; raynaud's; Urinary incontinence; ha1 - PSHx: 02:34 right arm; ha1 - Immunization history:: Adult Immunizations not up to date. - Infectious Disease History:: Denies. - Social history:: Smoking status: Patient reports the use of cigarette tobacco products, denies chronic smoking, but will smoke occasionally. - Family history:: not pertinent. Screenin:11 [facility] ED Fall Risk Assessment (Adult) History of falling in the last 3 months, dd2 including since admission No falls in past 3 months (0 pts) Confusion or Disorientation No (0 pts) Intoxicated or Sedated No (0 pts) Impaired Gait No (0 pts) Mobility Assist Device Used No (0 pt) Altered Elimination No (0 pt) Score/Fall Risk Level 0 - 2 = Low Risk Oriented to surroundings, Maintained a safe environment, Educated pt \T\ family on fall prevention, incl call for assistance when getting out of bed, Assessed \T\ reinforced patient's understanding of fall precautions, Hourly rounding (assess needs \T\ fall precautionary measures) done. Abuse screen: Denies threats or abuse. Nutritional screening: No deficits noted. Tuberculosis screening: No symptoms or risk factors identified. Assessment: 03:11 General: Appears in no apparent distress. unkempt, Behavior is calm, cooperative, dd2 appropriate for age. Pain: Denies pain. Neuro: Millan Agitation-Sedation Scale (RASS): 0 - Alert and Calm Level of Consciousness is awake, alert, obeys commands, Oriented to person, place, time, situation, Appropriate for age. Cardiovascular: No deficits noted. Patient's skin is warm and dry. Respiratory: No deficits noted. Airway is patent Respiratory effort is even, unlabored, Respiratory pattern is regular, symmetrical. GI: Abdomen is non-distended, Bowel sounds present X 4 quads. Abd is soft and non tender X 4 quads. Reports nausea, vomiting. : No deficits noted. No signs and/or symptoms were reported regarding the genitourinary system. EENT: No deficits noted. No signs and/or symptoms were reported regarding the EENT system. Derm: No deficits noted. No signs and/or symptoms reported regarding the dermatologic system. Musculoskeletal: No deficits noted. No signs and/or symptoms reported regarding the musculoskeletal system. Circulation, motion, and sensation intact. Range of motion: intact in all extremities. 05:34 Reassessment: Patient is alert, oriented x 3, equal unlabored respirations, skin dd2 warm/dry/pink. Patient states feeling better. Patient states symptoms have improved. Vital Signs: 02:34 BP 166 / 92; Pulse 83; Resp 18 S; Temp 98.6; Pulse Ox 96% on R/A; Weight 58.06 kg; ha1 Height 5 ft. 1 in. ; 03:17 BP 162 / 84; Pulse 87; Resp 16; Pulse Ox 99% on R/A; dd2 05:35 BP 118 / 74; Pulse 77; Resp 16; Pulse Ox 98% ; dd2 02:34 Body Mass Index 24.19 (58.06 kg, 154.94 cm) ha1 Lester Coma Score: 03:11 Eye Response: spontaneous(4). Motor Response: obeys commands(6). Verbal Response: dd2 oriented(5). Total: 15. 06:03 Eye Response: spontaneous(4). Motor Response: obeys commands(6). Verbal Response: sp4 oriented(5). Total: 15. ED Course: 02:28 Patient arrived in ED. sp4 02:28 Kolby Parham MD is Attending Physician. sp4 02:44 Triage completed. ha1 02:50 Inserted saline lock: 20 gauge in right forearm, using aseptic technique. Blood mm11 collected. Flushed with 10 mL NS. 03:04 Alcohol Level Sent. mm11 03:04 Lipase Sent. mm11 03:04 CMP Sent. mm11 03:04 CBC with Diff Sent. mm11 03:11 TOI CALDERON, RN is Primary Nurse. dd2 03:11 No provider procedures requiring assistance completed. dd2 03:11 Patient has correct armband on for positive identification. Bed in low position. Call dd2 light in reach. Side rails up X 1. Client placed on continuous cardiac and pulse oximetry monitoring. NIBP monitoring applied. Door closed. Noise minimized. Warm blanket given. Pillow given. Verbal reassurance given. 05:34 IV discontinued, intact, bleeding controlled, No redness/swelling at site. Pressure dd2 dressing applied. 05:34 Provided Education on: d/c education. dd2 Administered Medications: 03:03 Drug: Ondansetron IVP 4 mg IVP once; over 2 minutes Route: IVP; Site: right forearm; dd2 03:18 Follow up: Response: No adverse reaction dd2 03:03 Drug: NS 0.9% IV 1000 ml IV at 1 bolus Per protocol; to be given as a bolus over 60 dd2 minutes Route: IV; Rate: 1 bolus; Site: right forearm; 03:18 Follow up: Response: No adverse reaction dd2 04:03 Follow up: IV Status: Completed infusion; IV Intake: 1000ml dd2 Medication: 03:11 VIS not applicable for this client. dd2 Intake: 04:03 IV: 1000ml; Total: 1000ml. dd2 Outcome: 05:15 Discharge ordered by . makayla 05:35 Discharged to home ambulatory, dd2 05:35 Condition: stable 05:35 Discharge instructions given to patient, Instructed on discharge instructions, follow up and referral plans. safety practices, Demonstrated understanding of instructions, follow-up care, 05:38 Patient left the ED. dd2 Signatures: Cari Wilburn RN RN ha1 Kolby Parham MD MD sp4 TOI CALDERON RN RN dd2 venkata messina mm11
[2024-05-15 05:52] VITALS: TEMP 98.6
[2024-05-15 06:03] VITALS: BP 118/74; O2SAT 98
== END 2024-05-15 05:38 | disposition home or self-care (01) ==
LOC: ER 02:24
DX: E11.65 Type 2 diabetes mellitus with hyperglycemia (principal); Z59.02 Unsheltered homelessness; Z60.9 Problem related to social environment, unspecified; F17.210 Nicotine dependence, cigarettes, uncomplicated
CPT/HCPCS: 36415; 80053; 82077; 83690; 85025; 96361; 96374; 99284; J2405; J7030

== ENCOUNTER 2024-06-28 18:12 | Emergency (ER) | payer MEDICAID, SELFPAY ==
--- OUTSIDE RECORDS SUMMARY | 2024-06-28 18:19 | XMS REPORT | Continuity of Care Document ---
Author Name Unknown Address [address] [facility] [address] [place] [address] [facility] thconnect Address [address] [facility] 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 Primary Care Physician + [phone] Doctor Unassigned, [place] Attending Clinician U Cosme Ward DO Attending Clinician [phone] Solo CHONG, Lyubov Hilton Attending Clinician [phone] Rosalie Irizarry RN Attending Clinician [phone] Miguel CHONG, Ricky Hoskins Attending Clinician + [phone] Umang Reynaga MD Attending Clinician [phone] Jerry Fields DO Attending Clinician [phone] Vimal Quiñones MD Attending Clinician [phone] Jeannette Dawn LVN Attending Clinician + [phone] PARVEZ MONROE Attending Clinician Unavailable Sergio Aponte MD Attending Clinician [phone] Bret Banda MD Attending Clinician [phone] Parvez Monroe MD Attending Clinician [phone] Lyubov Banda MD Admitting Clinician [phone] Jerry Fields DO Admitting Clinician [phone] PARVEZ MONROE Admitting Clinician Unavailable Parvez Monroe MD Admitting Clinician [phone] Problems Condition Name Condition Details Condition Category Status Onset Date Resolution Date Last Treatment Date Treating Clinician Comments Source Elevated troponin I level Elevated troponin I level Disease Active 08-14 00:00: 00 [facility] Elevated brain natriureti c peptide (BNP) level Elevated brain natriureti c peptide (BNP) level Disease Active 08-14 00:00: 00 [facility] Essential hypertensi on Essential hypertensi on Disease Active 08-14 00:00: 00 [facility] ELIEZER (acute kidney injury) ELIEZER (acute kidney injury) Disease Active 08-14 00:00: 00 [facility] Type 2 diabetes mellitus with other specified complicati on Type 2 diabetes mellitus with other specified complicati on Disease Active 08-14 00:00: 00 [facility] Hypertensi on, unspecifie d type Hypertensi on, unspecifie d type Disease Active 08-13 00:00: 00 [facility] NSTEMI (non-ST elevated myocardial infarction ) NSTEMI (non-ST elevated myocardial infarction ) Disease Active 2022-04 00:00: 00 [facility] Allergies, Adverse Reactions, Alerts Allergy Name Allergy Type Status Severity Reaction(s) Onset Date Inactive Date Treating Clinician Comments Source NO KNOWN ALLERGIE S Drug Class Active [facility] Social History Social Habit Start Date Stop Date Quantity Comments Source [facility] function 2023-08-23 00:00:00 2023-08-23 00:00:00 [facility] Alcohol intake 2023-08-22 00:00:00 2023-08-22 00:00:00 Lifetime non-drinker (finding) [facility] Alcoholic beverage intake 2023-08-22 00:00:00 2023-08-22 00:00:00 Lifetime non-drinker (finding) [facility] Tobacco use and exposure 2023-04-21 00:00:00 2023-04-21 00:00:00 Smokeless tobacco non-user [facility] Sex assigned at 1965 00:00:1965 00:00:00 [facility] Smoking Status Start Date Stop Date Source Never smoked tobacco [facility] Medications Ordered Medication Name Filled Medication Name Start Date Stop Date Current Medication? Ordering Clinician Indication Dosage Frequency Signature (SIG) Comments Components Source acarbose 25 mg tablet 08-23 00:00: 00 Yes [id number] 25mg Take 1 tablet by mouth in the morning and 1 tablet at noon and 1 tablet in the evening. Take with meals. [facility] metFORMIN 500 mg 24 hr tablet 08-23 00:00: 09-23 04:59 :00 No [id number] 500mg Take 1 tablet by mouth in the morning and 1 tablet in the evening. Take with meals. Do all this for 30 days. [facility] amLODIPine 10 mg tablet 08-23 00:00: 09-23 04:59 :00 No [id number] 10mg Take 1 tablet by mouth in the morning for 30 days. [facility] tamsulosin 0.4 mg 24 hr capsule 08-23 00:00: 00 09-23 04:59 :00 No [id number] .4mg Take 1 capsule by mouth in the morning for 30 days. [facility] levoFLOXaci n 500 mg tablet 08-23 00:00: 08-26 04:59 :00 No [id number] 500mg Take 1 tablet by mouth every 24 (twenty-fo ur) hours for 2 days. [facility] cefTRIAXone (ROCEPHIN) 1,000 mg in NaCl 0.9% (NS) 100 mL MINI-BAG 08-22 19:30: 00 08-26 19:29 :00 No 1000mg 1,000 mg, IV Piggyback, Q24H ABX, 4 doses, First dose on Wed08/23/23 at 1430, Last dose on Wed08/26/23 at 1430, Administer over 30 Minutes, 100 mL
Reas on for Anti-Infec tive: Empiric Therapy for Suspected Infection< br>Empiric Therapy Site: Urine
D uration of therapy: Once (ED) [facility] D5W IV infusion 1,000 mL 08-22 15:00: 00 08-22 16:53 :22 No 1000mL at 50 mL/hr, IV Infusion, ONCE, 1 dose, On Wed08/23/23 at 1000, Routine [facility] amLODIPine (NORVASC) tablet 5 mg 08-22 14:00: 00 Yes 5mg 5 mg, Oral, DAILY, First dose on Wed08/23/23 at 0900, Until Discontinu ed, Routine [facility] D5W 0.45% NaCl (1/2NS) IV infusion 1,000 mL 08-22 02:29: 00 08-23 17:53 :57 No 1000mL at 75 mL/hr, 1,000 mL, IV Infusion, CONTINUOUS , Starting on Wed08/22/23 at 2130, Until Wed08/24/23 at 1253, Routine [facility] D5W IV infusion 1,000 mL 08-21 21:30: 00 08-22 02:27 :22 No 1000mL at 100 mL/hr, IV Infusion, CONTINUOUS , Starting on Wed08/22/23 at 1630, Until Wed08/22/23 at 2127, Routine [facility] Sliding Scale Insulin - Lispro (HumaLOG) 08-21 21:00: 00 Yes Subcutaneo us, Q4H, First dose on Wed08/22/23 at 1600, Until Discontinu ed, Routine [facility] glucagon (GLUCAGEN DIAGNOSTIC KIT) injection 1 mg 08-21 20:17: 12 Yes 1mg 1 mg, Intramuscu lar, PRN, Starting on Wed08/22/23 at 1517, Until Discontinu ed, HAO, Blood Glucose < or = 70 mg/dL and patient is NPO, unable to swallow or has mental changes. [facility] dextrose 50 % in water (D50W) injection 25 mL 08-21 20:17: 12 Yes 25mL 25 mL, Slow IV Push, PRN, Starting on Wed08/22/23 at 1517, Until Discontinu ed, HAO, Blood Glucose < or = 70 mg/dL and patient is NPO, unable to swallow or has mental status changes. [facility] D5W IV infusion 1,000 mL 08-21 17:45: 00 08-21 20:16 :11 No 1000mL at 100 mL/hr, IV Infusion, CONTINUOUS , Starting on Wed08/22/23 at 1245, Until Wed08/22/23 at 1516, Routine [facility] tamsulosin (FLOMAX) capsule 0.4 mg 08-21 14:00: 00 Yes .4mg 0.4 mg, Oral, DAILY, First dose on Wed08/22/23 at 0900, Until Discontinu ed, Routine [facility] docusate (COLACE) capsule 100 mg 08-21 13:00: 00 Yes 100mg 100 mg, Oral, BID, First dose on Wed08/22/23 at 0800, Until Discontinu ed, Routine [facility] heparin (porcine) injection 5,000 Units 08-21 13:00: 00 Yes 5000U 5,000 Units, Subcutaneo us, Q12H, First dose on Wed08/22/23 at 0800, Until Discontinu ed, Routine [facility] D5W 0.45% NaCl (1/2NS) IV infusion 1,000 mL 08-21 06:15: 00 08-21 16:44 :38 No 1000mL at 100 mL/hr, 1,000 mL, IV Infusion, CONTINUOUS , Starting on Wed08/22/23 at 0115, Until Wed08/22/23 at 1144, Routine [facility] D5W 0.45% NaCl (1/2NS) Bolus infusion 1,000 mL 08-21 06:00: 00 08-21 06:21 :00 No 1000mL at 999 mL/hr, 1,000 mL, IV Infusion, ONCE, 1 dose, On Wed08/22/23 at 0100, Routine [facility] NaCl 0.9% (NS) bolus infusion 1,000 mL 08-21 04:15: 00 08-21 05:05 :00 No 1000mL at 999 mL/hr, 1,000 mL, IV Infusion, ONCE, 1 dose, On 08/21/23 at 2315, STAT [facility] bisacodyL (DULCOLAX) tablet 10 mg 08-21 04:02: 51 Yes 10mg 10 mg, Oral, QDAILYPRN, Starting on 08/21/23 at 2302, Until Discontinu ed, Routine, Constipati on [facility] ondansetron (ZOFRAN (PF)) injection 4 mg 08-21 04:02: 17 Yes 4mg 4 mg, Slow IV Push, Q6HPRN, Starting on 08/21/23 at 2302, Until Discontinu ed, Routine, Nausea and Vomiting (N/V) [facility] FENTanyl PF (SUBLIMAZE (PF)) injection 12.5 mcg 08-21 04:02: 09 08-22 04:01 :09 No 12.5ug 12.5 mcg, Slow IV Push, Q6HPRN, Starting on 08/21/23 at 2302, Until 08/22/23 at 2301, Routine, Pain (scale 7-10), Pain (scale 4-6) [facility] acetaminoph en (TYLENOL) tablet 650 mg 08-21 04:01: 56 Yes 650mg 650 mg, Oral, Q6HPRN, Starting on 08/21/23 at 2301, Until Discontinu ed, Routine, Pain (scale 1-3) [facility] magnesium citrate solution 296 mL 08-21 01:45: 00 08-21 01:25 :00 No 296mL 296 mL, Oral, ONCE, 1 dose, On 08/21/23 at 2045, Routine [facility] amLODIPine 5 mg tablet 08-16 00:00: 00 2024- 04-30 00:00 :00 No [id number] 5mg Take 1 tablet by mouth in the morning for 30 days. [facility] lactulose (CEPHULAC) solution 45 mL 08-15 15:45: 00 08-15 15:21 :00 No 45mL 45 mL, Oral, ONCE, 1 dose, On Wed08/16/23 at 1045, Routine [facility] amLODIPine (NORVASC) tablet 5 mg 08-15 14:00: 00 Yes 5mg 5 mg, Oral, DAILY, First dose on Wed08/16/23 at 0900, Until Discontinu ed, Routine [facility] sennosides (SENOKOT) tablet 8.6 mg 08-15 14:00: 00 Yes 8.6mg 8.6 mg, Oral, DAILY, First dose on Wed08/16/23 at 0900, Until Discontinu ed, Routine [facility] losartan (COZAAR) tablet 25 mg 08-15 14:00: 00 Yes 25mg 25 mg, Oral, DAILY, First dose (after last modificati on) on Wed08/16/23 at 0900, Until Discontinu ed, Routine [facility] docusate (COLACE) capsule 100 mg 08-15 13:00: 00 Yes 100mg 100 mg, Oral, BID, First dose on Wed08/16/23 at 0800, Until Discontinu ed, Routine [facility] lactulose (CEPHULAC) solution 30 mL 08-15 10:00: 00 08-15 09:33 :00 No 30mL 30 mL, Oral, ONCE, 1 dose, On Wed08/16/23 at 0500, Routine [facility] metFORMIN 500 mg 24 hr tablet 08-15 00:00: 00 08-23 00:00 :00 No [id number] 500mg Take 1 tablet by mouth in the morning and 1 tablet in the evening. Take with meals. Do all this for 30 days. [facility] acarbose 25 mg tablet 08-15 00:00: 00 08-23 00:00 :00 No [id number] 25mg Take 1 tablet by mouth in the morning and 1 tablet at noon and 1 tablet in the evening. Take with meals. Do all this for 30 days. [facility] pioglitazon e 15 mg tablet 08-15 00:00: 00 08-23 00:00 :00 No [id number] 15mg Take 1 tablet by mouth in the morning for 30 days. [facility] tamsulosin 0.4 mg 24 hr capsule 08-15 00:00: 00 08-23 00:00 :00 No [id number] .4mg Take 1 capsule by mouth in the morning for 30 days. [facility] losartan 25 mg tablet 08-15 00:00: 00 08-23 00:00 :00 No [id number] 25mg Take 1 tablet by mouth in the morning for 30 days. [facility] glipiZIDE (GLUCOTROL) tablet 5 mg 08-14 21:30: 00 Yes 5mg 5 mg, Oral, BIDAC, First dose on 08/15/23 at 1630, Until Discontinu ed, Routine [facility] KCL (KLOR-CON M20) tablet 40 mEq 08-14 21:30: 00 08-14 21:21 :00 No 40meq 40 mEq, Oral, ONCE, 1 dose, On 08/15/23 at 1630, Routine [facility] pioglitazon e (ACTOS) tablet 7.5 mg 08-14 17:00: 00 08-15 12:47 :51 No 7.5mg 7.5 mg, Oral, DAILY, First dose on 08/15/23 at 1200, Until Discontinu ed, Routine [facility] tamsulosin (FLOMAX) capsule 0.4 mg 08-14 15:49: 00 Yes .4mg 0.4 mg, Oral, DAILY, First dose on 08/15/23 at 1100, Until Discontinu ed, Routine [facility] amLODIPine (NORVASC) tablet 10 mg 08-14 14:00: 00 08-14 15:51 :30 No 10mg 10 mg, Oral, DAILY, First dose on Wed08/15/23 at 0900, Until Discontinu ed, Routine [facility] heparin (porcine) injection 5,000 Units 08-14 03:00: 00 08-14 06:07 :44 No 5000U 5,000 Units, Subcutaneo us, Q8H, First dose on 08/14/23 at 2200, Until Discontinu ed, Routine [facility] Sliding Scale Insulin - Lispro (HumaLOG) 08-14 02:00: 00 08-14 18:06 :14 No Subcutaneo us, TID MEALS+HS, First dose on Wed08/14/23 at 2100, Until Discontinu ed, Routine [facility] glucagon (GLUCAGEN DIAGNOSTIC KIT) injection 1 mg 08-14 00:36: 37 Yes 1mg 1 mg, Intramuscu lar, PRN, Starting on 08/14/23 at 1936, Until Discontinu ed, HAO, Blood Glucose < or = 70 mg/dL and patient is NPO, unable to swallow or has mental changes. [facility] dextrose 50 % in water (D50W) injection 25 mL 08-14 00:36: 37 Yes 25mL 25 mL, Slow IV Push, PRN, Starting on 08/14/23 at 1936, Until Discontinu ed, HAO, Blood Glucose < or = 70 mg/dL and patient is NPO, unable to swallow or has mental status changes. [facility] acetaminoph en (TYLENOL) tablet 650 mg 08-14 00:36: 24 Yes 650mg 650 mg, Oral, Q6HPRN, Starting on 08/14/23 at 1936, Until Discontinu ed, Routine, Pain (scale 1-3) [facility] aspirin chewable tablet 324 mg 08-13 23:15: 00 08-13 22:56 :00 No [id number] 324mg 324 mg, Oral, ONCE, 1 dose, On 08/14/23 at 1815, [facility] lidocaine 2% viscous (LIDOCAINE VISCOUS) 2 % solution 15 mL 08-13 23:00: 00 08-13 22:10 :00 No [id number] 15mL 15 mL, Oral, ONCE, 1 dose, On 08/14/23 at 1800, Routine [facility] KCL (KLOR-CON M20) tablet 20 mEq 08-13 22:30: 00 08-13 22:59 :00 No [id number] 20meq 20 mEq, Oral, ONCE, 1 dose, On 08/14/23 at 1730, [facility] metoprolol tartrate (LOPRESSOR) tablet 50 mg 08-13 22:00: 00 08-13 22:58 :00 No [id number] 50mg 50 mg, Oral, ONCE, 1 dose, On 08/14/23 at 1700, [facility] iopamidol (ISOVUE 370-500 mL) injection 80 mL 08-13 21:30: 00 08-13 21:45 :00 No [id number] 80mL 80 mL, Intravenou s, ONCE, 1 dose, On 08/14/23 at 1645, Routine [facility] acetaminoph en (TYLENOL) tablet 650 mg 08-13 21:15: 00 08-13 22:57 :00 No [id number] 650mg 650 mg, Oral, ONCE, 1 dose, On 08/14/23 at 1615, [facility] amLODIPine (NORVASC) tablet 5 mg 08-13 21:15: 00 08-13 22:58 :00 No [id number] 5mg 5 mg, Oral, ONCE, 1 dose, On 08/14/23 at 1615, [facility] NaCl 0.9% (NS) bolus infusion 1,000 mL 08-13 21:15: 00 08-13 21:50 :00 No [id number] 1000mL at 999 mL/hr, 1,000 mL, IV Infusion, ONCE, 1 dose, On 08/14/23 at 1615, HAO [facility] insulin NPH (HUMULIN N) injection 9 Units 2022-04 14:00: 00 Yes 9U 9 Units, Subcutaneo us, QAM WITH BREAKFAST, First dose (after last modificati on) on 04/24/23 at 0800, Until Discontinu ed, Routine [facility] losartan 25 mg tablet 2022-04 00:00: 00 08-15 00:00 :00 No [id number] 25mg Take 1 tablet by mouth in the morning. [facility] tamsulosin (FLOMAX) 0.4 mg 24 hr capsule 2022-04 00:00: 00 08-15 00:00 :00 No [id number] .4mg Take 1 capsule by mouth in the morning. [facility] metFORMIN 500 mg tablet 2022-04 00:00: 00 05-23 05:59 :00 No [id number] Take 1 tablet by mouth 2 (two) times daily with meals for 7 days, THEN 2 tablets 2 (two) times daily with meals for 21 days. [facility] insulin lispro (human) (HumaLOG U-100) injection 3 Units 2022-04 23:00: 00 Yes 3U 3 Units, Subcutaneo us, TID MEALS, First dose (after last modificati on) on Wed04/23/23 at 1700, Until Discontinu ed, Routine [facility] insulin NPH (HUMULIN N) injection 5 Units 2022-04 23:00: 00 Yes 5U 5 Units, Subcutaneo us, QPM, First dose (after last modificati on) on Wed04/23/23 at 1700, Until Discontinu ed, Routine [facility] losartan (COZAAR) tablet 25 mg 2022-04 15:00: 00 Yes 25mg 25 mg, Oral, DAILY, First dose on Wed04/23/23 at 0900, Until Discontinu ed, Routine [facility] Potassium Bicarb-Citr ic Acid (EFFER-K) effervescen t tablet 40 mEq 2022-04 13:00: 00 04-23 13:33 :00 No 40meq 40 mEq, Oral, ONCE, 1 dose, On Wed04/23/23 at 0700, Routine [facility] ramelteon (ROZEREM) tablet 8 mg 2022-04 10:45: 00 04-23 10:51 :00 No 8mg 8 mg, Oral, ONCE NOW, 1 dose, On Wed04/23/23 at 0500, Routine [facility] Blood-Gluco se Meter (ACCU-CHEK GUIDE GLUCOSE METER) [facility] 2022-04 00:00: 00 Yes [id number] Use as directed [facility] lancets 33 gauge [facility] 2022-04 00:00: 00 Yes [id number] Use as directed [facility] blood sugar diagnostic (ACCU-CHEK GUIDE TEST STRIPS) strip 2022-04 00:00: 00 Yes [id number] Use as directed [facility] pioglitazon e 15 mg tablet 2022-04 00:00: 00 08-15 00:00 :00 No [id number] 7.5mg Take 0.5 tablets by mouth in the morning. [facility] acarbose 25 mg tablet 2022-04 00:00: 00 08-15 00:00 :00 No [id number] 25mg Take 1 tablet by mouth in the morning and 1 tablet at noon and 1 tablet in the evening. Take with meals. [facility] atorvastati n 80 mg tablet 2022-04 00:00: 00 05-24 05:59 :00 No [id number] 80mg Take 1 tablet by mouth at bedtime for 30 days. [facility] glipiZIDE 5 mg tablet 2022-04 00:00: 00 05-24 05:59 :00 No [id number] 5mg Take 1 tablet by mouth 2 (two) times daily before breakfast and dinner for 30 days. [facility] enoxaparin (LOVENOX) injection 40 mg 2022-04 15:00: 00 Yes 40mg 40 mg, Subcutaneo us, DAILY, First dose on Wed04/22/23 at 0900, Until Discontinu ed, Routine [facility] insulin NPH (HUMULIN N) injection 8 Units 2022-04 14:00: 00 04-23 19:10 :37 No 8U 8 Units, Subcutaneo us, QAM WITH BREAKFAST, First dose on Wed04/22/23 at 0800, Until Discontinu ed, Routine [facility] insulin NPH (HUMULIN N) injection 4 Units 2022-04 23:00: 00 04-23 19:10 :37 No 4U 4 Units, Subcutaneo us, QPM, First dose on Wed04/21/23 at 1700, Until Discontinu ed, Routine [facility] insulin lispro (human) (HumaLOG U-100) injection 2 Units 2022-04 23:00: 00 04-23 19:10 :37 No 2U 2 Units, Subcutaneo us, TID MEALS, First dose (after last modificati on) on Wed04/21/23 at 1700, Until Discontinu ed, Routine [facility] NaCl 0.9% (NS) IV infusion 250 mL 2022-04 21:15: 00 04-22 20:03 :10 No [id number] 250mL at 20 mL/hr, IV Infusion, CONTINUOUS , Starting on Wed04/21/23 at 1515, Until Wed04/22/23 at 1403, Routine
To keep vein open
[facility] perflutren lipid microsphere s (DEFINITY) injection 2 mL 2022-04 21:00: 00 04-21 20:15 :00 No [id number] 2mL 2 mL, IV Push, ONCE, 1 dose, On Wed04/21/23 at 1500, Routine [facility] atropine injection 1 mg 2022-04 21:00: 00 04-21 20:44 :00 No [id number] 1mg 1 mg, Slow IV Push, ONCE, 1 dose, On Wed04/21/23 at 1500, Routine [facility] DOBUTamine (DOBUTREX) 250 mg/250 mL RTU infusion 2022-04 20:13: 51 04-22 20:03 :10 No [id number] 5ug/kg/ min 5 mcg/kg/min ?59 kg (17.7 [...] the Dobutamine infusion. (see Adjunctive Therapy)<b r> [facility] perflutren protein-A microsphr (OPTISON) injection 3 mL 2022-04 17:15: 00 04-21 15:22 :00 No [id number] 3mL 3 mL, IV Push, ONCE, 1 dose, On Wed04/21/23 at 1115, Routine [facility] potassium chloride in water 10 mEq/100 mL RTU 10 mEq 2022-04 17:00: 00 04-21 20:59 :00 No 10meq 10 mEq, IV Piggyback, Q1H, 4 doses, First dose (after last reorder) on Wed04/21/23 at 1100, Last dose on Wed04/21/23 at 1400, Administer over 60 Minutes, 100 mL [facility] tamsulosin (FLOMAX) capsule 0.4 mg 2022-04 15:00: 00 Yes .4mg 0.4 mg, Oral, DAILY, First dose on Wed04/21/23 at 0900, Until Discontinu ed, Routine [facility] aspirin chewable tablet 81 mg 2022-04 15:00: 00 04-22 16:28 :38 No 81mg 81 mg, Oral, DAILY, First dose on Wed04/21/23 at 0900, Until Discontinu ed, Routine [facility] aspirin tablet 325 mg 2022-04 15:00: 00 04-21 06:21 :21 No 325mg 325 mg, Oral, DAILY, First dose on Wed04/21/23 at 0900, Until Discontinu ed, Routine [facility] Sliding Scale Insulin - Lispro (HumaLOG) 2022-04 14:00: 00 Yes Subcutaneo us, TID MEALS+HS, First dose on Wed04/21/23 at 0800, Until Discontinu ed, Routine [facility] magnesium sulfate in water 2 gram/50 mL (4 %) infusion 2 g 2022-04 12:30: 00 04-21 15:11 :00 No 2g 2 g, IV Piggyback, Administer over 60 Minutes, ONCE, 1 dose, On Wed04/21/23 at 0630, Routine [facility] Potassium Bicarb-Citr ic Acid (EFFER-K) effervescen t tablet 40 mEq 2022-04 12:30: 00 04-21 12:36 :00 No 40meq 40 mEq, Oral, ONCE, 1 dose, On Wed04/21/23 at 0630, Routine [facility] insulin glargine (LANTUS U-100) injection 9 Units 2022-04 07:45: 00 04-21 21:08 :08 No .15U/kg /d 9 Units (rounded from 8.745 Units = 0.15 Units/kg/d ay ?58.3 kg), Subcutaneo us, QHS, First dose (after last modificati on) on Wed04/21/23 at 0145, Until Discontinu ed, Routine [facility] atorvastati n (LIPITOR) tablet 80 mg 2022-04 06:30: 00 Yes 80mg 80 mg, Oral, QHS, First dose on Wed04/21/23 at 0030, Until Discontinu ed, Routine [facility] dextrose 50 % in water (D50W) injection 25 mL 2022-04 06:24: 50 Yes 25mL 25 mL, Slow IV Push, PRN, Starting on Wed04/21/23 at 0024, Until Discontinu ed, HAO, Blood Glucose < or = 70 mg/dL and patient is NPO, unable to swallow or has mental status changes. [facility] acetaminoph en (TYLENOL) tablet 650 mg 2022-04 05:53: 21 Yes 650mg 650 mg, Oral, Q6HPRN, Starting on Wed04/20/23 at 2353, Until Discontinu ed, Routine, Pain (scale 1-3) [facility] NaCl 0.9% (NS) bolus infusion 1,000 mL 2022-04 04:00: 00 04-21 03:45 :00 No 1000mL at 999 mL/hr, 1,000 mL, IV Infusion, ONCE, 1 dose, On Wed04/20/23 at 2200, STAT [facility] clopidogreL (PLAVIX) 300 mg tablet 300 mg 2022-04 03:30: 00 04-21 02:50 :00 No 300mg 300 mg, Oral, ONCE, 1 dose, On Wed04/20/23 at 2130, HAO [facility] HEPARIN SODIUM (PORCINE) 1,000 UNIT/ML BOLUS ACS ORDER SET 2022-04 02:45: 00 04-21 02:53 :00 No 60U/kg 3,540 Units (60 Units/kg ?59 kg), IV Push, ONCE, 1 dose, On Wed04/20/23 at 204, HAO [facility] heparin 25,000 Units/250 mL (Premixed [...] Rang e, Dosing and Testing: &nbs p;[facility], AND [facility] ONLY &nbs p; - aPTT < [...] ADJUST INITIAL BOLUS OR INITIAL INFUSION RATE.
[facility] Vital Signs Vital Name Observation Time Observation Value Comments S ource Systolic blood pressure 2023-08-24 13:02:00 150 mm[Hg] [facility] Diastolic blood pressure 2023-08-24 13:02:00 88 mm[Hg] [facility] Heart rate 2023-08-24 13:02:00 79 /min [facility] Body temperature 2023-08-24 13:02:00 36.44 Deya [facility] Respiratory rate 2023-08-24 13:02:00 14 /min [facility] Oxygen saturation in Arterial blood by Pulse oximetry 2023-08-24 13:02:00 98 /min [facility] Body weight 2023-08-24 08:43:[address] [facility] BMI 2023-08-24 08:43:00 22.83 kg/m2 [facility] Body height 2023-08-22 04:52:[address] [facility] Systolic blood pressure 2023-08-16 16:53:00 154 mm[Hg] [facility] Diastolic blood pressure 2023-08-16 16:53:00 94 mm[Hg] [facility] Heart rate 2023-08-16 16:53:00 82 /min [facility] Body temperature 2023-08-16 16:53:00 36.61 Deya [facility] Respiratory rate 2023-08-16 16:53:00 16 /min [facility] Oxygen saturation in Arterial blood by Pulse oximetry 2023-08-16 16:53:00 99 /min [facility] Body weight 2023-08-16 09:56:[address] [facility] BMI 2023-08-16 09:56:00 22.05 kg/m2 [facility] Body height 2023-08-15 04:07:[address] [facility] Systolic blood pressure 2023-04-23 18:11:00 141 mm[Hg] [facility] Diastolic blood pressure 2023-04-23 18:11:00 80 mm[Hg] [facility] Heart rate 2023-04-23 18:11:00 101 /min [facility] Body temperature 2023-04-23 18:11:00 35.89 Deya [facility] Respiratory rate 2023-04-23 18:11:00 18 /min [facility] Oxygen saturation in Arterial blood by Pulse oximetry 2023-04-23 18:11:00 98 /min [facility] Body weight 2023-04-22 09:57:[address] [facility] BMI 2023-04-22 09:57:00 22.48 kg/m2 [facility] Body height 2023-04-21 20:00:[address] [facility] Procedures Procedure Date / Time Performed Performing Clinician Source PATIENT AGREEMENTS AND CONTRACTS 2023-11-12 20:14:31 Doctor Unassigned, [place] [facility] POCT GLUCOSE (AUTOMATED) 2023-08-24 16:13:00 Jami Banda [facility] POCT GLUCOSE (AUTOMATED) 2023-08-24 12:34:00 Jami Banda [facility] BASIC METABOLIC PANEL (NA, K, CL, CO2, GLUCOSE, BUN, CREATININE, CA) 2023-08-24 08:42:00 Jerry Fields [facility] CBC WITH DIFF 2023-08-24 08:42:00 Jerry Fields [facility] POCT GLUCOSE (AUTOMATED) 2023-08-24 05:46:00 Jami Banda [facility] BASIC METABOLIC PANEL (NA, K, CL, CO2, GLUCOSE, BUN, CREATININE, CA) 2023-08-24 01:37:00 Jerry Fields [facility] POCT GLUCOSE (AUTOMATED) 2023-08-24 01:27:00 Jami Banda [facility] POCT GLUCOSE (AUTOMATED) 2023-08-23 21:29:00 Jami Banda [facility] BASIC METABOLIC PANEL (NA, K, CL, CO2, GLUCOSE, BUN, CREATININE, CA) 2023-08-23 17:41:00 Jerry Fields [facility] POCT GLUCOSE (AUTOMATED) 2023-08-23 16:42:00 Jami Banda [facility] POCT GLUCOSE (AUTOMATED) 2023-08-23 12:36:00 Jami Banda [facility] POCT GLUCOSE (AUTOMATED) 2023-08-23 09:09:00 Jami Banda. [facility] MAGNESIUM 2023-08-23 08:23:00 Jerry Fields [facility] BASIC METABOLIC PANEL (NA, K, CL, CO2, GLUCOSE, BUN, CREATININE, CA) 2023-08-23 08:23:00 Jerry Fields [facility] CBC WITH DIFF 2023-08-23 08:23:00 Jerry Fields [facility] POCT GLUCOSE (AUTOMATED) 2023-08-23 04:52:00 Jami Banda [facility] POCT GLUCOSE (AUTOMATED) 2023-08-23 00:42:00 Jami Banda [facility] BASIC METABOLIC PANEL (NA, K, CL, CO2, GLUCOSE, BUN, CREATININE, CA) 2023-08-23 00:38:00 Jerry Fields [facility] POCT GLUCOSE (AUTOMATED) 2023-08-22 21:18:00 Jami Banda [facility] URIC ACID 2023-08-22 19:21:00 Alyssa Cain [facility] PROTEIN CREAT RATIO URINE RANDOM 2023-08-22 19:21:00 Alyssa Cain [facility] CORTISOL AM 2023-08-22 19:20:00 Alyssa Cain [facility] BASIC METABOLIC PANEL (NA, K, CL, CO2, GLUCOSE, BUN, CREATININE, CA) 2023-08-22 13:21:00 Lyubov Banda [facility] LACTIC ACID WHOLE BLOOD 2023-08-22 09:16:00 Loreta Banda mmad [facility] MAGNESIUM 2023-08-22 08:30:00 Lyubov Banda [facility] TROPONIN I 2023-08-22 08:30:00 Lyubov Banda [facility] CBC WITH DIFF 2023-08-22 08:30:00 [facility]-B[facility] 2023-08-22 08:30:00 Lyubov Banda [facility] PHOSPHORUS 2023-08-22 04:01:00 Lyubov Banda [facility] BASIC METABOLIC PANEL (NA, K, CL, CO2, GLUCOSE, BUN, CREATININE, CA) 2023-08-22 04:01:00 Cosme Cardona [facility] URINALYSIS 2023-08-22 01:52:00 Cardona, [facility] CT ABDOMEN PELVIS WO CONTRAST 2023-08-22 01:26:17 Singer [facility] CREATINE KINASE 2023-08-22 01:24:00 Lyubov Banda [facility] LIPASE 2023-08-22 01:24:[address] [facility] COMP. METABOLIC PANEL ([id number]) 2023-08-22 01:24:00 Singer [facility] CBC WITH DIFF 2023-08-22 01:24:00 Singer [facility] POCT GLUCOSE (AUTOMATED) 2023-08-16 21:51:00 Yue Fields [facility] POCT GLUCOSE (AUTOMATED) 2023-08-16 16:54:00 Yue Fields [facility] POCT GLUCOSE (AUTOMATED) 2023-08-16 12:45:00 Yue Fields [facility] POCT GLUCOSE (AUTOMATED) 2023-08-16 02:06:00 Yue Fields [facility] POCT GLUCOSE (AUTOMATED) 2023-08-15 21:29:00 Yue Fields [facility] POCT GLUCOSE (AUTOMATED) 2023-08-15 16:39:00 Yue Fields [facility] POCT GLUCOSE (AUTOMATED) 2023-08-15 13:08:00 Yue Fields [facility] TROPONIN I 2023-08-15 10:41:00 [facility] BASIC METABOLIC PANEL (NA, K, CL, CO2, GLUCOSE, BUN, CREATININE, CA) 2023-08-15 10:41:00 Shanice [facility] CBC WITH DIFF 2023-08-15 10:41:00 Shanice [facility] PROSTATIC SPECIFIC ANTIGEN 2023-08-15 05:32:00 Shanice [facility] TROPONIN I 2023-08-15 05:32:00 Shanice [facility] POCT GLUCOSE (AUTOMATED) 2023-08-15 04:03:00 Yue Fields [facility] URINALYSIS 2023 22:15:00 Rosmery [facility] XR CHEST 1 VW 2023 21:46:[address] [facility] CT ABDOMEN PELVIS W CONTRAST 2023 21:34:55 Rosmery [facility] CT TRAUMA HEAD WO CONTRAST 2023 21:33:20 Rosmery [facility] HB ECG ROUTINE & RHYTHM STRIP 2023 21:10:12 Rosmery [facility] PHOSPHORUS 2023 20:47:00 Rosmery [facility] CREATINE KINASE 2023 20:47:00 [facility] 2023 20:47:00 Rosmery [facility] MAGNESIUM 2023 20:47:00 Rosmery [facility] BETA HYDROXY-BUTYRATE 2023 20:47:00 Farida Reynaga [facility] TROPONIN I 2023 20:47:00 Rosmery [facility] COMP. METABOLIC PANEL (94155) 2023 20:47:00 Rosmery [facility] CBC WITH DIFF 2023 20:47:00 Rosmery [facility] GLYCOSYLATED HEMOGLOBIN (A1C) 2023 20:47:00 Jerry Fields [facility] N-TERMINAL PRO-BNP 2023 20:47:00 Michael Reynaga [facility] ACUTE CARE VENOUS BLOOD GAS 2023 20:46:00 Rosmery [facility] LACTIC ACID WHOLE BLOOD 2023 20:46:00 Kian Reynaga [facility] POCT GLUCOSE(AGE >30DAYS) 2023 20:26:00 Rosmery [facility] POCT GLUCOSE (AUTOMATED) 2023 20:23:00 Dalmedo, [facility] POCT GLUCOSE (AUTOMATED) 2023-04-23 18:09:00 Brien Banda [facility] POCT GLUCOSE (AUTOMATED) 2023-04-23 15:32:00 Brien Banda [facility] MAGNESIUM 2023-04-23 09:09:00 Chet Echavarria [facility] BASIC METABOLIC PANEL (NA, K, CL, CO2, GLUCOSE, BUN, CREATININE, CA) 2023-04-23 09:09:00 Chet Echavarria [facility] POCT GLUCOSE (AUTOMATED) 2023-04-23 02:56:[address] [facility] POCT GLUCOSE (AUTOMATED) 2023-04-23 00:32:[address] [facility] POCT GLUCOSE (AUTOMATED) 2023-04-22 22:43:[address] [facility] POCT GLUCOSE (AUTOMATED) 2023-04-22 20:36:[address] [facility] POCT GLUCOSE (AUTOMATED) 2023-04-22 17:44:[address] [facility] POCT GLUCOSE (AUTOMATED) 2023-04-22 13:41:[address] [facility] MAGNESIUM 2023-04-22 10:37:00 Daja Aaliyah [facility] BASIC METABOLIC PANEL (NA, K, CL, CO2, GLUCOSE, BUN, CREATININE, CA) 2023-04-22 10:37:00 Aaliyah Farnsworth [facility] CBC WITH DIFF 2023-04-22 10:37:00 Daja Aaliyah [facility] POCT GLUCOSE (AUTOMATED) 2023-04-22 03:32:[address] [facility] POCT GLUCOSE (AUTOMATED) 2023-04-22 01:34:[address] [facility] COMPLETE ECHOCARDIOGRAM DOBUTAMINE STRESS TEST W CONTRAST 2023-04-21 21:15:00 [facility] 2023-04-21 17:36:00 Banda, Brien wan [facility] ACTIVATED PARTIAL THRMPLAS JERMAINE 2023-04-21 16:47:00 Sergio Aponte [facility] TRANSTHORACIC ECHO (TTE) COMPLETE W/ CONTRAST 2023-04-21 15:26:00 Kylie Fuchs Noel [facility] TROPONIN I 2023-04-21 12:39:00 Víctor Fuchs amscyue [facility] POCT GLUCOSE (AUTOMATED) 2023-04-21 09:39:00 Brien Banda [facility] MAGNESIUM 2023-04-21 09:10:00 Víctor Fuchs amscyue [facility] BASIC METABOLIC PANEL (NA, K, CL, CO2, GLUCOSE, BUN, CREATININE, CA) 2023-04-21 09:10:00 Tavia Fuchsmad [facility] LIPID PANEL ([id number])(TOTAL CHOLESTEROL, TRIGLYCERIDES, HDL) 2023-04-21 09:10:00 Tavia Fuchsmad [facility] CBC WITH DIFF 2023-04-21 09:10:00 Víctor Fuchs amscyue [facility] ACTIVATED PARTIAL THRMPLAS JERMAINE 2023-04-21 09:10:00 Sergio Aponte [facility] XR CHEST 1 VW 2023-04-21 06:53:47 Víctor Fuchs amscyue [facility] TROPONIN I 2023-04-21 06:32:00 Víctor Fuchs amscyue [facility] IRON PANEL 2023-04-21 06:32:00 Víctor Fuchs amscyue [facility] N-TERMINAL PRO-BNP 2023-04-21 06:32:00 Kylie Fuchs [facility] CRITICAL CARE 2023-04-21 02:54:[address] [facility] PROTHROMBIN TIME / INR 2023-04-21 02:44:00 Enrique Aponte [facility] ACTIVATED PARTIAL THRMPLAS JERMAINE 2023-04-21 02:44:00 Sergio Aponte [facility] URINALYSIS 2023-04-21 02:33:00 [facility] PROTEIN CREAT RATIO URINE RANDOM 2023-04-21 02:33:00 Kylie Fuchssan [facility] URINE DRUG (IMMUNOASSAY) - COMPREHENSIVE DRUG SCREEN W/O REFLEX 2023-04-21 02:33:00 Sergio Aponte [facility] PHOSPHORUS 2023-04-21 01:55:00 Víctor Fuchs Noel [facility] FERRITIN SERUM 2023-04-21 01:55:00 Víctor Fuchs [facility] TROPONIN I 2023-04-21 01:55:00 [facility] THYROID STIMULATING HORMONE 2023-04-21 01:55:00 Kylie Fuchs Noel [facility] COMP. METABOLIC PANEL ([id number]) 2023-04-21 01:55:00 Sergio Aponte [facility] ETHANOL 2023-04-21 01:55:00 Sergio Aponte [facility] CBC WITH DIFF 2023-04-21 01:55:[address] [facility] GLYCOSYLATED HEMOGLOBIN (A1C) 2023-04-21 01:55:00 Kylie Fuchs [facility] POCT GLUCOSE (AUTOMATED) 2023-04-21 01:54:00 Yue Aponte [facility] EKG-12 LEAD 2023-04-21 01:51:41 Bret Banda [facility] Encounters Start Date/Time End Date/Time Encounter Type Admission Type Attending Clinicians Care Facility Care Department Encounter ID Source 2023-11-12 00:00:00 2024-06-10 07:16:20 Orders Only Doctor Unassigned, [place] Doctor Unassigned, [place] [facility] [id number] 350.1.13.10 4.2.7.2.686 [id number] [facility] 2023-08-21 19:47:00 2023-08-24 16:32:00 Hospital Encounter Cosme Cardona [facility] [id number] 350.1.13.10 4.2.7.2.686 [id number] [facility] 2023-08-20 00:00:00 2023-08-20 00:00:00 Patient Outreach Rosalie Irizarry LYNN BAEZ 1.2840.114 350.1.13.10 4.2.7.2.686 [id number] [facility] 2023-08-17 00:00:00 2023-08-17 00:00:00 Telephone Ricky Rivera [facility] 1.0.114 350.1.13.10 4.2.7.2.686 [id number] [facility] 2023 14:42:00 2023-08-16 18:40:00 Hospital Encounter Umang Reynaga David [place]ville, Jelani [facility] 1.0.114 350.1.13.10 4.2.7.2.686 [id number] [facility] 2023-04-27 00:00:00 2023-04-27 00:00:00 Transition of Care Ricardo Dawnoinlong BAEZ 1.840.114 350.1.13.10 4.2.7.2.686 [id number] [facility] 2023-04-20 19:48:00 2023-04-23 19:54:00 Inpatient PARVEZ NUNEZ [facility] [id number] [facility] 2023-04-20 19:48:00 2023-04-23 19:54:00 Hospital Encounter Sergio Aponte Rizwan Dacso, Matthew M [facility] 1.840.114 350.1.13.10 4.2.7.2.686 [id number] [facility] Results Test Description Test Time Test Comments Results Resul t Comments Source PATIENT AGREEMENTS AND CONTRACTS 2023-11-12 20:14:31 [facility] an unspecified provider[facility] 12:35:27* Test Item Value Reference Range Interpretation Comme nts POCT GLU (test code = 6741929688) 204 mg/dL 70-110 H Lab Interpretation (test cod e = 32022-1) Abnormal [facility] Metabolic Panel (NA, K, CL, CO2, GLUCOSE, BUN, CREATININE, CA)2023-08-24 09:45:39* Test Item Value Reference Range Interpretation Comme nts NA (test code = 0258732457) 133 mmol/L 135-145 L K (test code = 6155111385) 3.7 mmol/L 3.5-5.0 CL (test code = 0950332263) 98 mmol/L 98-108 CO2 TOTAL (test code = 7628218094) 27 mmol/L 23-31 AGAP (test code = 0378674837) 8 2-16 BUN (test code = 9863016711) 13 mg/dL 7-23 GLUCOSE (test code = 6705382022) 188 mg/dL 70-110 H CREATININE (test code = 2160-0) 0.63 mg/dL 0.60-1.25 CALCIUM (test code = 2845826368) 9.4 mg/dL 8.6-10.6 eGFR (test code = 75019-5) 111.6 mL/min/1.73m2 CKD-EPI eGFR (2020). Assuming creatinine has been stable day-to-day for at least three months, the eGFR indicates Category G1 (>= 90 mL/min/1.73 m2) Lab Interpretation (test code = 02567-5) [facility]normal [facility] [id number] 09:21:26* Test Item Value Reference Range Interpretation [...] g/dL 31.2-35.0 H RDW-SD (test code = 65997-4) 36.9 fL 38.5-51.6 L RDW-CV (test code = 788-0) 11.6 % 12.1-15.4 L PLT (test code = 777-3) 407 150-328 H MPV (test code = 32554-9) 9.5 fL 9.8-13.0 L NRBC/100 WBC (test code = 0128610877) 0.0 0.0-10.0 NRBC x10^3 (test code = 2423620396) See_Comment [Automated messa ge] The system which generated this result transmitted reference range: 10*3/?L. The reference range was not used to interpret this result as normal/abnormal. GRAN MAT (NEUT) % (test code = 770-8) 63.1 % IMM GRAN % (test code = 0569527282) 0.30 % LYMPH % (test code = 736-9) 21.1 % MONO % (test code = 5905-5) 8.3 % EOS % (test code = 713-8) 6.5 % BASO % (test code = 706-2) 0.7 % GRAN MAT x10^3(ANC) (test code = 0152105818) 3.71 10*3/uL 1.99-6.95 IMM GRAN x10^3 (test code = 5263996534) 0.00-0.06 LYMPH x10^3 (test code = 731-0) 1.24 10*3/uL 1.09-3.23 MONO x10^3 (test code = 742-7) 0.49 10*3/uL 0.36-1.02 EOS x10^3 (test code = 711-2) 0.38 10*3/uL 0.06-0.53 BASO x10^3 (test code = 704-7) 0.04 10*3/uL 0.01-0.09 Lab Interpretation (test code = 99329-6) Abnormal [facility] GLUCOSE (AUTOMATED)2023-08-24 05:47:46* Test Item Value Reference Range Interpretation Comme [facility] POCT GLU (test code = 2315702181) 126 mg/dL 70-110 H Lab Interpretation (test cod e = 13072-1) Abnormal [facility] Metabolic Panel (NA, K, CL, CO2, GLUCOSE, BUN, CREATININE, CA)2023-08-24 02:27:27* Test Item Value Reference Range Interpretation Comme [facility] NA (test code = 9673520319) 129 mmol/L 135-145 L K (test code = 0964223330) 3.9 mmol/L 3.5-5.0 CL (test code = 8070189207) 96 mmol/L 98-108 L CO2 TOTAL (test code = 8692775138) 29 mmol/L 23-31 AGAP (test code = 0676847753) 4 2-16 BUN (test code = 7397066227) 14 mg/dL 7-23 GLUCOSE (test code = 9460907452) 185 mg/dL 70-110 H CREATININE (test code = 2160-0) 0.56 mg/dL 0.60-1.25 L CALCIUM (test code = 6279002862) 9.2 mg/dL 8.6-10.6 eGFR (test code = 69182-3) 115.7 mL/min/1.73m2 CKD-EPI eGFR (2020). Assuming creatinine has been stable day-to-day for at least three months, the eGFR indicates Category G1 (>= 90 mL/min/1.73 m2) Lab Interpretation (test code = 71297-4) Abnormal [facility] GLUCOSE (AUTOMATED)2023-08-24 01:28:28* Test Item Value Reference Range Interpretation Comme [facility] POCT GLU (test code = 9566427508) 210 mg/dL 70-110 H Lab Interpretation (test cod e = 97633-5) Abnormal [facility] GLUCOSE (AUTOMATED)2023-08-23 21:30:04* Test Item Value Reference Range Interpretation Comme nts POCT GLU (test code = 9343491391) 149 mg/dL 70-110 H Lab Interpretation (test cod e = 15343-1) Abnormal [facility] GLUCOSE (AUTOMATED)2023-08-23 16:45:20* Test Item Value Reference Range Interpretation Comme nts POCT GLU (test code = 7916665069) 147 mg/dL 70-110 H Lab Interpretation (test cod e = 96595-2) Abnormal [facility] GLUCOSE (AUTOMATED)2023-08-23 12:36:56* Test Item Value Reference Range Interpretation Comme nts POCT GLU (test code = 0199417495) 131 mg/dL 70-110 H Lab Interpretation (test cod e = 88794-6) Abnormal [facility] GLUCOSE (AUTOMATED)2023-08-23 09:17:23* Test Item Value Reference Range Interpretation Comme nts POCT GLU (test code = 7190873988) 154 mg/dL 70-110 H Lab Interpretation (test cod e = 86831-7) Abnormal [facility] GLUCOSE (AUTOMATED)2023-08-23 05:03:01* Test Item Value Reference Range Interpretation Comme nts POCT GLU (test code = 5723267625) 183 mg/dL 70-110 H Lab Interpretation (test cod e = 12191-7) Abnormal [facility] Metabolic Panel (NA, K, CL, CO2, GLUCOSE, BUN, CREATININE, CA)2023-08-23 01:49:58* Test Item Value Reference Range Interpretation Comme nts NA (test code = 2519261789) 132 mmol/L 135-145 L K (test code = 7241673467) 4.1 mmol/L 3.5-5.0 CL (test code = 9926798965) 101 mmol/L 98-108 CO2 TOTAL (test code = 8233530896) 28 mmol/L 23-31 AGAP (test code = 4240886864) 3 2-16 BUN (test code = 3906714250) 17 mg/dL 7-23 GLUCOSE (test code = 3318375669) 149 mg/dL 70-110 H CREATININE (test code = 2160-0) 0.97 mg/dL 0.60-1.25 CALCIUM (test code = 7844751590) 8.4 mg/dL 8.6-10.6 L eGFR (test code = 09024-9) 91.6 mL/min/1.73m2 CKD-EPI eGFR (2020). Assuming creatinine has been stable day-to-day for at least three months, the eGFR indicates Category G1 (>= 90 mL/min/1.73 m2) Lab Interpretation (test code = 73319-3) Abnormal [facility] GLUCOSE (AUTOMATED)2023-08-23 00:43:06* Test Item Value Reference Range Interpretation Comme [facility] POCT GLU (test code = 3715181161) 126 mg/dL 70-110 H Lab Interpretation (test cod e = 05566-5) Abnormal [facility]ort[facility] [id number] 22:59:03* Test Item Value Reference Range Interpretation Comme nts IBRAHIMA AM (test code = 7740014230) 24.7 ug/dL 4.5-23.0 H GINA (test code = GINA) Biotin has been reported to cause a positive bias, interpret results relative to patient's use of biotin. Lab Interpretation (test code = 32934-0) Abnormal [facility] GLUCOSE (AUTOMATED)2023-08-22 21:29:10* Test Item Value Reference Range Interpretation Comme [facility] POCT GLU (test code = 1689523707) 341 mg/dL 70-110 H Lab Interpretation (test cod e = 85194-3) Abnormal [facility] [id number] 19:53:59* Test Item Value Reference Range Interpretation Comme nts URIC ACID (test code = 5804393066) 6.4 mg/dL 3.6-8.0 Lab Interpretation (test cod e = 62274-4) Normal [facility] Met[facility] (NA, K, CL, CO2, GLUCOSE, BUN, CREATININE, CA)2023-08-22 14:43:15* Test Item Value Reference Range Interpretation Comme nts NA (test code = 5958399262) 138 mmol/L 135-145 K (test code = 5577457957) 4.6 mmol/L 3.5-5.0 CL (test code = 4941311564) 102 mmol/L 98-108 CO2 TOTAL (test code = 1688288286) 28 mmol/L 23-31 AGAP (test code = 9531874807) 8 2-16 BUN (test code = 4995692445) 34 mg/dL 7-23 H GLUCOSE (test code = 0647045519) 224 mg/dL 70-110 H CREATININE (test code = 2160-0) 1.89 mg/dL 0.60-1.25 H CALCIUM (test code = 9008731227) 9.4 mg/dL 8.6-10.6 eGFR (test code = 10795-7) 41.1 mL/min/1.73m2 CKD-EPI eGFR (2020). Assuming creatinine has been stable day-to-day for at least three months, the eGFR indicates Category G3b (30 - 44 mL/min/1.73 m2) Lab Interpretation (test code = 88144-3) Abnormal [facility] Hospital[facility]ine [id number] 14:42:45* Test Item Value Reference Range Interpretation Comme nts CK (test code = 8671768718) 224 U/L 33-194 H Lab Interpretation (test cod e = 72999-9) Abnormal [facility] Hospital[facility]osphorus [id number] 12:10:01* Test Item Value Reference Range Interpretation Comme nts PHOSPHORUS (test code = 3321307915) 5.8 mg/dL 2.5-5.0 H Lab Interpretation (test cod e = 73895-8) Abnormal [facility] Met[facility] (NA, K, CL, CO2, GLUCOSE, BUN, CREATININE, CA)2023-08-22 04:41:19* Test Item Value Reference Range Interpretation Comme nts NA (test code = 4620515929) 124 mmol/L 135-145 L K (test code = 3072538512) 4.7 mmol/L 3.5-5.0 CL (test code = 0972316974) 93 mmol/L 98-108 L CO2 TOTAL (test code = 5141512840) 18 mmol/L 23-31 L AGAP (test code = 3903645703) 13 2-16 BUN (test code = 6086464563) 68 mg/dL 7-23 H GLUCOSE (test code = 3494180074) 116 mg/dL 70-110 H CREATININE (test code = 2160-0) 6.60 mg/dL 0.60-1.25 H CALCIUM (test code = 0706491376) 9.0 mg/dL 8.6-10.6 eGFR (test code = 16449-7) 9.2 mL/min/1.73m2 CKD-EPI eGFR (2020). Assuming creatinine has been stable day-to-day for at least three months, the eGFR indicates Category G5 (<= 14mL/min/1.73 m2) Lab Interpretation (test code = 31167-2) Abnormal [facility] PEL[facility] WO [id number] 02:22:05Exam: CT Abdomen and Pelvis without Contrast, [...] osseous finding. Subacute/chronic left-sided rib fractures.Soft tissues: [facility] (91251[facility] 2023-08-22 02:21:33* Test Item Value Reference Range Interpretation Comme nts NA (test code = 4285868416) 120 mmol/L 135-145 L K (test code = 3517813800) 4.8 mmol/L 3.5-5.0 CL (test code = 3313487849) 85 mmol/L 98-108 L CO2 TOTAL (test code = 5666635574) 21 mmol/L 23-31 L AGAP (test code = 9651967888) 14 2-16 BUN (test code = 0833000553) 70 mg/dL 7-23 H GLUCOSE (test code = 6180341035) 97 mg/dL 70-110 CREATININE (test code = 2160-0) 8.39 mg/dL 0.60-1.25 H TOTAL BILI (test code = 7632658538) 0.7 mg/dL 0.1-1.1 CALCIUM (test code = 2264018300) 8.8 mg/dL 8.6-10.6 T PROTEIN (test code = 0224462106) 7.2 g/dL 6.3-8.2 ALBUMIN (test code = 0155953019) 4.1 g/dL 3.5-5.0 ALK PHOS (test code = 3957383937) 95 U/L 34-122 ALTv (test code = 1742-6) 12 U/L 5-50 AST(SGOT) (test code = 2086772726) 24 U/L 13-40 eGFR (test code = 58259-9) 6.9 mL/min/1.73m2 CKD-EPI eGFR (2020). Assuming creatinine has been stable day-to-day for at least three months, the eGFR indicates Category G5 (<= 14mL/min/1.73 m2) Lab Interpretation (test code = 45170-7) [facility]* Test Item Value Reference Range Interpretation Comme nts LIPASE (test code = 5016221938) 758 U/L 0-220 H Lab Interpretation (test cod e = 73829-3) [facility] with Nuwv3931-99-76 01:58:31* Test Item Value Reference Range Interpretation [...] g/dL 31.2-35.0 H RDW-SD (test code = 77397-6) 36.0 fL 38.5-51.6 L RDW-CV (test code = 788-0) 11.5 % 12.1-15.4 L PLT (test code = 777-3) 312 150-328 MPV (test code = 13255-7) 9.4 fL 9.8-13.0 L NRBC/100 WBC (test code = 9796516110) 0.0 0.0-10.0 NRBC x10^3 (test code = 3715477922) See_Comment [Automated message] The system which generated this result transmitted reference range: 10*3/?L. The reference range was not used to interpret this result as normal/abnormal. GRAN MAT (NEUT) % (test code = 770-8) 82.7 % IMM GRAN % (test code = 5332317846) 0.50 % LYMPH % (test code = 736-9) 6.7 % MONO % (test code = 5905-5) 9.8 % EOS % (test code = 713-8) 0.2 % BASO % (test code = 706-2) 0.1 % GRAN MAT x10^3(ANC) (test code = 7302910160) 12.19 10*3/uL 1.99-6.95 H IMM GRAN x10^3 (test code = 8413589577) 0.08 10*3/uL 0.00-0.06 H LYMPH x10^3 (test code = 731-0) 0.99 10*3/uL 1.09-3.23 L MONO x10^3 (test code = 742-7) 1.44 10*3/uL 0.36-1.02 H EOS x10^3 (test code = 711-2) 0.03 10*3/uL 0.06-0.53 L BASO x10^3 (test code = 704-7) 0.01-0.09 Lab Interpretation (test code = 46133-4) [facility]16 22:02:57* Test Item Value Reference Range Interpretation Comme nts POCT GLU (test code = 0382076496) 112 mg/dL 70-110 H Lab Interpretation (test cod e = 80607-4) [facility]normal [facility]2023-08-16 16:59:58* Test Item Value Reference Range Interpretation Comme nts POCT GLU (test code = 8105583287) 127 mg/dL 70-110 H Lab Interpretation (test cod e = 19373-1) Abnormal [facility]2023-08-16 12:48:23* Test Item Value Reference Range Interpretation Comme nts POCT GLU (test code = 4507822468) 175 mg/dL 70-110 H Lab Interpretation (test cod e = 19278-5) Abnormal [facility] GLUCOSE (AUTOMATED)2023-08-16 02:07:02* Test Item Value Reference Range Interpretation Comme nts POCT GLU (test code = 3949643059) 195 mg/dL 70-110 H Notified Provide r Lab Interpretation (test code = 60189-8) Abnormal [facility] GLUCOSE (AUTOMATED)2023-08-15 21:36:15* Test Item Value Reference Range Interpretation Comme nts POCT GLU (test code = 0315416377) 284 mg/dL 70-110 H Lab Interpretation (test cod e = 01267-6) Abnormal [facility] GLUCOSE (AUTOMATED)2023-08-15 16:56:02* Test Item Value Reference Range Interpretation Comme nts POCT GLU (test code = 1985526775) 74 mg/dL 70-110 Lab Interpretation (test cod e = 98761-7) Normal [facility] GLUCOSE (AUTOMATED)2023-08-15 13:12:34* Test Item Value Reference Range Interpretation Comme nts POCT GLU (test code = 4926351083) 258 mg/dL 70-110 H Lab Interpretation (test cod e = 20270-1) [facility]normal [facility]2023-08-15 04:04:43* Test Item Value Reference Range Interpretation Comme nts POCT GLU (test code = 9026617784) 120 mg/dL 70-110 H Lab Interpretation (test cod e = 34875-2) [facility] HospitalGlycosylated Hemoglobin (A1C)2023-08-15 01:17:32* Test Item Value Reference Range Interpretation Comme nts HGB A1C (test code = 4548-4) 8.9 % 4.0-5.7 H GINA (test code = GINA) Reference RangesNormal: <5.7%Prediabetes: 5.7 - 6.4%Diabetes: > 6.5% Lab Interpretation (test code = 23680-4) [facility]normal [facility] HospitalBeta [id number]-[id number] 01:00:45* Test Item Value Reference Range Interpretation Comme nts BOH (test code = 1236068946) 0.5 mmol/L GINA (test code = GINA) Normal Ranges: ? ? Nonfasting ? Less than 0.1 mmol/L ? ? Overnight Fast ? ? ? Less than 0.4 mmol/L ? ? Fasting (1-2 weeks) ?6-8 mmol/L Test developed and characteristics determined by [facility] Laboratory Services. [facility] HospitalCreatine [id number] 23:07:16* Test Item Value Reference Range Interpretation Comme nts CK (test code = 2975202071) 148 U/L 33-194 Lab Interpretation (test cod e = 24550-7) Normal [facility] HospitalTROPONIN [id number] 22:18:16* Test Item Value Reference Range Interpretation Comme nts TROPONIN I (test code = 6187580682) 0.081 ng/mL <=0.034 H GINA (test code [...] of biotin. Lab Interpretation (test code = 67518-2) Abnormal [facility] HospitalN-TERMINAL [id number] 22:15:55* Test Item Value Reference Range Interpretation Comme nts NT-proBNP (test code = 19375-6) 999 pg/mL <=125 H GINA (test code = GINA) Positive: Heart Failure Likely Lab Interpretation (test code = 54918-4) Abnormal [facility] HospitalMagnesium2024-04-20 22:07:17* Test Item Value Reference Range Interpretation Comme nts MAGNESIUM (test code = 7993494978) 1.8 mg/dL 1.7-2.4 Lab Interpretation (test cod e = 49167-7) Normal [facility] HospitalCOMP. METABOLIC PANEL (07688)2023 22:06:57* Test Item Value Reference Range Interpretation Comme nts NA (test code = 8159021621) 130 mmol/L 135-145 L K (test code = 8140303278) 3.4 mmol/L 3.5-5.0 L CL (test code = 5521467986) 93 mmol/L 98-108 L CO2 TOTAL (test code = 0192913162) 26 mmol/L 23-31 AGAP (test code = 1087530546) 11 2-16 BUN (test code = 0005513772) 39 mg/dL 7-23 H GLUCOSE (test code = 9833079032) 142 mg/dL 70-110 H CREATININE (test code = 2160-0) 2.40 mg/dL 0.60-1.25 H TOTAL BILI (test code = 3698819831) 1.2 mg/dL 0.1-1.1 H CALCIUM (test code = 2721581349) 9.1 mg/dL 8.6-10.6 T PROTEIN (test code = 9891207091) 7.7 g/dL 6.3-8.2 ALBUMIN (test code = 8688002474) 4.2 g/dL 3.5-5.0 ALK PHOS (test code = 2689413125) 102 U/L 34-122 ALTv (test code = 1742-6) 16 U/L 5-50 AST(SGOT) (test code = 9153812264) 26 U/L 13-40 eGFR (test code = 49197-9) 30.9 mL/min/1.73m2 CKD-EPI eGFR (2020). Assuming creatinine has been stable day-to-day for at least three months, the eGFR indicates Category G3b (30 - 44 mL/min/1.73 m2) Lab Interpretation (test code = 82504-5) [facility]normal [facility] HospitalPhosphorus2024-04-20 22:06:37* Test Item Value Reference Range Interpretation Comme nts PHOSPHORUS (test code = 5359768092) 4.9 mg/dL 2.5-5.0 Lab Interpretation (test cod e = 09126-8) Normal [facility] HospitalLIPASE2024-04-20 22:06:17* Test Item Value Reference Range Interpretation Comme nts LIPASE (test code = 2693793517) 204 U/L 0-220 Lab Interpretation (test cod e = 45465-6) Normal [facility] HospitalCBC WITH [id number] 21:54:56* Test Item Value Reference Range Interpretation [...] g/dL 31.2-35.0 H RDW-SD (test code = 93591-6) 38.1 fL 38.5-51.6 L RDW-CV (test code = 788-0) 11.8 % 12.1-15.4 L PLT (test code = 777-3) 235 150-328 MPV (test code = 90315-2) 11.1 fL 9.8-13.0 NRBC/100 WBC (test code = 0340703775) 0.0 0.0-10.0 NRBC x10^3 (test code = 5040931575) See_Comment [Automated message] The system which generated this result transmitted reference range: 10*3/?L. The reference range was not used to interpret this result as normal/abnormal. GRAN MAT (NEUT) % (test code = 770-8) 80.3 % IMM GRAN % (test code = 1280979024) 0.60 % LYMPH % (test code = 736-9) 8.7 % MONO % (test code = 5905-5) 10.0 % EOS % (test code = 713-8) 0.2 % BASO % (test code = 706-2) 0.2 % GRAN MAT x10^3(ANC) (test code = 8190900944) 10.18 10*3/uL 1.99-6.95 H IMM GRAN x10^3 (test code = 6587738261) 0.07 10*3/uL 0.00-0.06 H LYMPH x10^3 (test code = 731-0) 1.11 10*3/uL 1.09-3.23 MONO x10^3 (test code = 742-7) 1.27 10*3/uL 0.36-1.02 H EOS x10^3 (test code = 711-2) 0.03 10*3/uL 0.06-0.53 L BASO x10^3 (test code = 704-7) 0.03 10*3/uL 0.01-0.09 Lab Interpretation (test code = 48084-7) Abnormal [facility] HospitalXR CHEST 1 [id number] 21:49:58EXAM: XR CHEST 1 2023 4:38 PM HISTORY: 58 years-old Male with r/o infilrate . TECHNIQUE: Portable AP view of the chest. COMPARISON: 04/21/2023 FINDINGS: Lines and tubes: None. Cardiomediastinal: The cardiomediastinal silhouette is unremarkable. Lungs and pleura: The lungs are clear. No focal consolidation,pneumothorax, or pleural effusion is seen. Included osseous structures show no acuteabnormality.[facility] HospitalCT ABDOMEN PELVIS W [id number] 21:45:03EXAM: CT ABDOMEN AND PELVIS WITH CONTRAST [...] change involving the spine, sacroiliac jointsand hips ispresent.[facility] HospitalCT TRAUMA HEAD WO [id number] 21:38:37FULL RESULT: Examination: CT TRAUMA HEAD WO CONTRAST on 2023 4:16 PM Clinical Indication: Headache, hypertensive Comparison: None Technique: Noncontrast imaging was obtained from base to vertex.Findings: The sulci and ventricles were unremarkable. There may be subtlewhite matter microvascularischemic changes, notably in the anteriorperiventricular region, but there is no evidence for hemorrhage or otherclearly acute intracranial process.[facility] HospitalLactic Acid Whole [id number] 21:30:25* Test Item Value Reference Range Interpretation Comme nts LACTIC ACID (test code = 0557187780) 1.58 mmol/L 0.50-2.20 Lab Interpretation (test cod e = 95562-1) Normal [facility] HospitalAcute Care Venous Blood [id number] 21:30:25 * Test Item Value Reference Range Interpretation Comme nts PH (test code = 1872573238) 7.34 7.32-7.42 PCO2 NOY (test code = 3780493476) 45 41-51 PO2 NOY (test code = 8946524472) 24 25-40 L HCO3 NOY (test code = 6955055538) 24 24-28 AC VBE(BEAKER) (test code = 0300100756) -1.9 mEq/L Lab Interpretation (test cod e = 98510-7) Abnormal [facility] GLUCOSE (AUTOMATED)2023 20:26:17* Test Item Value Reference Range Interpretation Comme nts POCT GLU (test code = 3747051070) 165 mg/dL 70-110 H Lab Interpretation (test cod e = 55952-3) Abnormal [facility] GLUCOSE(AGE >30DAYS)2023 20:26:00* Test Item Value Reference Range Interpretation Comme nts POCT Glu (age>30days) (test code = 3342) 165 mg/dL 70-110 A Lab Interpretation (test cod e = 07354-1) Abnormal [facility] GLUCOSE (AUTOMATED)2023-04-23 18:15:28* Test Item Value Reference Range Interpretation Comme nts POCT GLU (test code = 0400495418) 218 mg/dL 70-110 H Lab Interpretation (test cod e = 09265-1) [facility]normal [facility]2023-04-23 15:35:23* Test Item Value Reference Range Interpretation Comme nts POCT GLU (test code = 3579316832) 186 mg/dL 70-110 H Lab Interpretation (test cod e = 28928-1) Abnormal [facility] GLUCOSE (AUTOMATED)2023-04-23 02:57:57* Test Item Value Reference Range Interpretation Comme nts POCT GLU (test code = 9554133284) 82 mg/dL 70-110 Lab Interpretation (test cod e = 98222-4) Normal [facility] GLUCOSE (AUTOMATED)2023-04-23 00:33:51* Test Item Value Reference Range Interpretation Comme nts POCT GLU (test code = 5025941510) 181 mg/dL 70-110 H Lab Interpretation (test cod e = 68032-6) Abnormal [facility] GLUCOSE (AUTOMATED)2023-04-22 22:54:22* Test Item Value Reference Range Interpretation Comme nts POCT GLU (test code = 8659559974) 127 mg/dL 70-110 H Lab Interpretation (test cod e = 55826-1) Abnormal [facility] GLUCOSE (AUTOMATED)2023-04-22 20:37:54* Test Item Value Reference Range Interpretation Comme nts POCT GLU (test code = 0931260014) 230 mg/dL 70-110 H Lab Interpretation (test cod e = 43489-6) Abnormal [facility] GLUCOSE (AUTOMATED)2023-04-22 17:46:23* Test Item Value Reference Range Interpretation Comme nts POCT GLU (test code = 1200378595) 144 mg/dL 70-110 H Lab Interpretation (test cod e = 94296-3) Abnormal [facility] GLUCOSE (AUTOMATED)2023-04-22 13:42:26* Test Item Value Reference Range Interpretation Comme nts POCT GLU (test code = 6180109940) 229 mg/dL 70-110 H Lab Interpretation (test cod e = 99416-9) Abnormal [facility] GLUCOSE (AUTOMATED)2023-04-22 03:33:49* Test Item Value Reference Range Interpretation Comme nts POCT GLU (test code = 1139433093) 222 mg/dL 70-110 H Lab Interpretation (test cod e = 80931-4) Abnormal [facility] GLUCOSE (AUTOMATED)2023-04-22 01:36:03* Test Item Value Reference Range Interpretation Comme nts POCT GLU (test code = 7565385676) 282 mg/dL 70-110 H Lab Interpretation (test cod e = 98599-8) Abnormal [facility] HospitalEchocardiogram dobutamine stress test 2023-04-21 22:26:30* Test Item Value Reference Range Interpretation Comme nts Height (test code = 3251804887) 63 in Weight (test code = 2494720941) 130 lbs Systolic BP (test code = 6649330653) 122 mmHg Diastolic BP (test code = 6035006083) 81 mmHg Heart Rate (test code = 3209080951) 105 bpm BSA (test code = 2215093080) 1.[address] Depresion (mm) (test code = 1117153586) [address] Depression (mm) (test code = 6005747355) 0 mm Radiology Study observation (narrative) (test code = 96428-5) GINA (test code = GINA) Table formatting [...] left ventricular wall motion is globally hyperkinetic. [facility] HospitalTransthoracic echo (TTE)2023-04-21 18:05:03* Test Item Value Reference Range Interpretation Comme nts Height (test code = 7011738802) 63 in Weight (test code = 0037976254) 130 lbs Systolic BP (test code = 8888685083) 114 mmHg Diastolic BP (test code = 0527249966) 75 mmHg Heart Rate (test code = 1383831543) 98 bpm BSA (test code = 8727759529) 1.61 m2 LVIDD (test code = 7063653492) 4.00 cm Left Ventricular End Diastolic Volume by Teichholz Method (test code = 7974445) 70.0 mL IVS (test code = 1935052502) 1.07 cm Interventricular Septum Diastolic Thickness by 2D (test code = 8994883) 1.07 cm LVPWD (test code = 6969830725) 1.05 cm PW (test code = 8813901233) 1.05 cm 0.6-1.1 EF(Teich) (test code = 4848431924) 62.60 % LVIDS (test code = 8731097768) 2.70 cm Left Ventricular End Systolic Volume by Teichholz Method (test code = 4368640) 26.2 mL FS (test code = 5719356997) 33 % EF - 2D (test code = 11215741) 62.60 % Ao root diam (test code = 0121453354) 3.70 cm Aortic root (test code = 1710459317) 3.7 cm Ao root annulus (test code = 3631669398) 3.7 cm LA size (test code = 5204813374) 3.2 cm LVOT diameter (test code = 7265645416) 2.08 cm LVOT area (test code = 8133555145) 3.40 cm2 MV Peak E Nima (test code = 2134458012) 48.3 cm/s E wave decelartion time (test code = 3490073947) 0.15 s MV Peak A Nima (test code = 1953357034) 74.4 cm/s E/A ratio (test code = 1254364752) 0.65 ratio MV Prop V (test code = 6075958615) 21.20 cm/s LAV(MOD-sp4) (test code = 4004164385) 35.30 mL Tapse (test code = 9453629876) 1.73 cm LVOT stroke volume (test code = 3904471494) 45.20 cm3 LVOT peak nima (test code = 9974338597) 79.0 cm/s LVOT mn grad (test code = 9329737835) 1.3 mmHg AV LVOT peak gradient (test code = 1345393014) 2.50 mmHg LVOT peak VTI (test code = 3204325233) 13.2 cm LV V1 mean (test code = 0473821716) 52.90 cm/s Ao peak nima (test code = 8443566580) 83.8 cm/s AV area peak nima (test code = 8471483412) 3.2 cm2 Ao max PG (test code = 9011499272) 2.80 mm[Hg] AV peak gradient (test code = 7171225782) 2.8 mmHg LA Volume Index (BP) (test code = 5238459672) 25.9 mL/m2 LA volume (BP) (test code = 3910902540) 41.8 mL LAV(MOD-sp2) (test code = 0106886766) 40.90 mL A4C EF (test code = 8954394748) 54.40 % EF(sp4-el) (test code = 4699036220) 55.00 % SV(MOD-sp4) (test code = 6124126373) 53.10 mL SV(sp4-el) (test code = 2949418453) 55.60 mL Radiology Study observation (narrative) (test code = 29058-7) GINA (test code = GINA) ?Left?Ventricle: Left [...] enhancing agent used. Patient exhibited sinus rhythm. [facility] HospitalPO[facility] (AUTOMATED)2023-04-21 17:48:26* Test Item Value Reference Range Interpretation Comme nts POCT GLU (test code = 9716213748) 198 mg/dL 70-110 H Lab Interpretation (test cod e = 31585-5) Abnormal [facility] HospitalXR CHEST 1 [id number] 15:12:07EXAM: XR CHEST 1 VW HISTORY: NSTEMI COMPARISON: None. FINDINGS: Small bandlike densities in the left midlung have more the appearance ofatelectasis than pneumonia. The lungs are well expanded and clearotherwise. The heart and great vessels are normal except for calcium in thearch of the aorta.[facility] HospitalPOCT [facility]SE (AUT[facility]ATED)2023-04-21 09:39:57* Test Item Value Reference Range Interpretation Comme nts POCT GLU (test code = 2725901230) 243 mg/dL 70-110 H Lab Interpretation (test cod e = 84091-6) Abnormal [facility] HospitalFerritin [id number] 07:28:27* Test Item Value Reference Range Interpretation Comme nts FERRITIN (test code = 5170691270) 76.3 ng/mL 18.0-464.0 GINA (test code = GINA) Biotin has been reported to cause a negative bias, interpret results relative to patient's use of biotin. Lab Interpretation (test code = 00168-6) Normal [facility] HospitalGlycosylated Hemoglobin (A1C)2023-04-21 07:25:47* Test Item Value Reference Range Interpretation Comme [facility] HGB A1C (test code = 4548-4) 12.6 % 4.0-5.7 H GINA (test code = GINA) Reference RangesNormal: <5.7%Prediabetes: 5.7 - 6.4%Diabetes: > 6.5% Lab Interpretation (test code = 04826-8) Abnormal [facility] HospitalThyroid Stimulating Nvtbwaz5097-92-00 07:24:07 * Test Item Value Reference Range Interpretation Comme nts TSH (test code = 7323980348) 2.56 See_Comment [Automated messa ge] The system which generated this result transmitted reference range: 0.45 - 4.70 mIU/L. The reference range was not used to interpret this result as normal/abnormal. Lab Interpretation (test code = 02011-3) Normal [facility] HospitalPhosphorus2023-12-27 06:52:06* Test Item Value Reference Range Interpretation Comme nts PHOSPHORUS (test code = 1598859143) 3.2 mg/dL 2.5-5.0 Lab Interpretation (test cod e = 82520-3) Normal [facility] HospitalCritical [id number] 02:54:15NSergio chin MD ? ? 04/20/2023 ?8:54 [...] [facility] [id number] 02:30:18* Test Item Value Reference Range Interpretation Comme nts TROPONIN I (test code = 5266188997) 0.154 ng/mL <=0.034 H GINA (test code [...] of biotin. Lab Interpretation (test code = 71273-1) Abnormal [facility] HospitalETHANOL2023-12-27 02:24:46 ALCOHOL<10mg/dL04/20/2023 8:24 PM [facility]10 Sagqkmkc92-741 Toxic>100 Depression of SENIOR SOFTWARE ANALYST>400 Fatalities ReportedUnMethodist Tex[facility] HospitalCOMP. METABOLIC PANEL (26783)2023-04-21 02:19:15* Test Item Value Reference Range Interpretation Comme nts NA (test code = 5958252444) 129 mmol/L 135-145 L K (test code = 2328005151) 3.5 mmol/L 3.5-5.0 CL (test code = 7161290097) 94 mmol/L 98-108 L CO2 TOTAL (test code = 1147614200) 28 mmol/L 23-31 AGAP (test code = 9446494608) 7 2-16 BUN (test code = 6732500941) 26 mg/dL 7-23 H GLUCOSE (test code = 7882310257) 314 mg/dL 70-110 H CREATININE (test code = 2675766465) 0.92 mg/dL 0.60-1.25 TOTAL BILI (test code = 9252672006) 0.8 mg/dL 0.1-1.1 CALCIUM (test code = 7841797477) 8.5 mg/dL 8.6-10.6 L T PROTEIN (test code = 3300148914) 6.0 g/dL 6.3-8.2 L ALBUMIN (test code = 9099839088) 3.3 g/dL 3.5-5.0 L ALK PHOS (test code = 5885607587) 95 U/L 34-122 ALTv (test code = 1742-6) 23 U/L 5-50 AST(SGOT) (test code = 8526372511) 30 U/L 13-40 eGFR (test code = 73472-2) 98.2 mL/min/1.73m2 CKD-EPI eGFR (2020). Assuming creatinine has been stable day-to-day for at least three months, the eGFR indicates Category G1 (>= 90 mL/min/1.73 m2) Lab Interpretation (test code = 86109-3) Abnormal [facility] WITH [id number] 02:03:54* Test Item Value Reference Range Interpretation [...] g/dL 31.2-35.0 H RDW-SD (test code = 08805-0) 36.2 fL 38.5-51.6 L RDW-CV (test code = 788-0) 11.6 % 12.1-15.4 L PLT (test code = 777-3) 178 See_Comment [Automated messa ge] The system which generated this result transmitted reference range: 150 - 328 10*3/?L. The reference range was not used to interpret this result as normal/abnormal. MPV (test code = 03010-7) 10.9 fL 9.8-13.0 NRBC/100 WBC (test code = 7031941376) 0.0 See_Comment [Automated me ssage] The system which generated this result transmitted reference range: 0.0 - 10.0 /100 WBCs. The reference range was not used to interpret this result as normal/abnormal. NRBC x10^3 (test code = 4353386467) See_Comment [Automated messa ge] The system which generated this result transmitted reference range: 10*3/?L. The reference range was not used to interpret this result as normal/abnormal. GRAN MAT (NEUT) % (test code = 770-8) 81.3 % IMM GRAN % (test code = 4494887193) 0.30 % LYMPH % (test code = 736-9) 10.5 % MONO % (test code = 5905-5) 7.6 % EOS % (test code = 713-8) 0.1 % BASO % (test code = 706-2) 0.2 % GRAN MAT x10^3(ANC) (test code = 5721364693) 9.55 10*3/uL 1.99-6.95 H IMM GRAN x10^3 (test code = 8986802515) 0.04 10*3/uL 0.00-0.06 LYMPH x10^3 (test code = 731-0) 1.23 10*3/uL 1.09-3.23 MONO x10^3 (test code = 742-7) 0.89 10*3/uL 0.36-1.02 EOS x10^3 (test code = 711-2) 0.06-0.53 L BASO x10^3 (test code = 704-7) 0.01-0.09 Lab Interpretation (test code = 42536-1) Abnormal [facility] HospitalPOCT [facility]SE (AUTOMATED)2023-04-21 01:55:51* Test Item Value Reference Range Interpretation Comme nts POCT GLU (test code = 1822720375) 408 mg/dL 70-110 H Lab Interpretation (test cod e = 40813-2) Abnormal [facility] HospitalCOMPREHENSIVE METABOLIC [id number] 05:07:51* Test Item Value Reference Range Interpretation Comme nts GLUCOSE (test code = 2217) 224 MG/DL 70-99 H BUN (test code = 2208) 22 MG/DL 6-20 H CREATININE (test code = 2214) 0.71 MG/DL 0.80-1.40 L eGFR (2020 CKD-EPI) (test code = 10439) 109 ML/MIN/1.73 >60 CALC BUN/CREAT (test code = 2235) 31 RATIO 6-28 H SODIUM (test code = 2230) 136 MEQ/L 133-146 POTASSIUM (test code = 2227) 4.8 MEQ/L 3.5-5.4 CHLORIDE (test code = 2214) 98 MEQ/L 95-107 CARBON DIOXIDE (test code = 2205) 29 MEQ/L 19-31 CALCIUM (test code = 2208) 9.6 MG/DL 8.5-10.5 PROTEIN, TOTAL (test code = 2228) 7.4 G/DL 6.1-8.3 ALBUMIN (test code = 2200) 4.7 G/DL 3.5-5.2 CALC GLOBULIN (test code = 0) 2.7 G/DL 1.9-3.7 CALC A/G RATIO (test code = 2233) 1.7 RATIO 1.0-2.6 BILIRUBIN, TOTAL (test code = 2206) 0.2 MG/DL See_Comment [Automated me ssage] The system which generated this result transmitted reference range: <=1.2. The reference range was not used to interpret this result as normal/abnormal. ALKALINE PHOSPHATASE (test code = 2203) 138 U/L 40-121 H AST (test code = 2217) 41 U/L 9-50 ALT (test code = 2218) 24 U/L 5-50 LIPID [id number] 05:07:51* Test Item Value Reference Range Interpretation Comme nts CHOLESTEROL (test code = 221) 174 MG/DL <200 TRIGLYCERIDES (test code = 2232) 99 MG/DL <150 HDL CHOLESTEROL (test code = 2219) 57 MG/DL >39 CALC LDL CHOL (test code = 2236) 98 MG/DL <100 NOTE: CALCULATED LDL IS BASED ON SIMI-OLMSTEAD METHOD WHICHINCLUDES ADJUSTABLE TRIGLYCERIDE:VLDL CHOLESTEROL RATIO.THIS FACTOR VARIES BY MEASURED TRIGLYCERIDE AND NON-HDLCHOLESTEROL CONCENTRATIONS WITH INCREASED CALCULATED LDL SEENIN HIGHER TRIGLYCERIDE OR LOWER NON-HDL SPECIMENS. FOR MOREINFORMATION, SEE CLIENT ANNOUNCEMENT AT [email or web address] RATIO LDL/HDL (test code = 2238) 1.72 RATIO <3.55 PSA, [id number] 05:07:10* Test Item Value Reference Range Interpretation Comme nts PSA, TOTAL (test code = 2606) 19.70 NG/ML See_Comment H NOTE: Methodolog y is Ashley Jasmina Electrochemiluminescence Immunoassay traceable to WHO reference standard 96/760. UNLESS OTHERWISE INDICATED, ALL TESTING PERFORMED [facility] [employer] [facility] [employer] [address] [place] [id number] ROTARY DRUM DYER: DUSTIN COLMENARES M.D. CLIA NUMBER [id number] [place]. [id number] [Automated message] The system which generated this result transmitted reference range: <=4.00. The reference range was not used to interpret this result as normal/abnormal. HEMOGLOBIN [id number] 02:46:58* Test Item Value Reference Range Interpretation Comme nts HEMOGLOBIN A1c (test code = 66052) 11.0 % 4.2-5.6 H [employer] GUIDELINES FOR HGB A1C: [...] OR LABORATORY CONSULTATION. CBC W/AUTO DIFF WITH [id number] 02:32:39* Test Item Value Reference Range Interpretation [...] 0.00-0.10 ABS NUCLEATED RBCS (test code = 80425) 0.00 K/UL 0.00-0.11 Consult Notes Date/Time Note [...] when jensen is moved. COMMUNICATION Primary Language: Italian Able to Verbalize needs: Yes Vision:good; no [...] Minutes: 20 min Jesica Murphy,[place] License: [id number] Required Components in Determining Evaluation Level History: No personal factors or comorbidities: No (27761) 1-2 personal factors and/or comorbidities: Yes (90454) 3 or more personal factors and/ or comorbidities: No (02487) Examination of Body System(s) Addressing 1-2 elements: Yes (95879) Addressing a total of 3 or more elements: No (39706) Addressing a total of 4 or more elements: No (32379) Clinical Presentation Stable: Yes (97484) Evolving: No (45888) Unstable: No (23503) Clinical Decision Making (Complexity) Low: No (11611) Moderate: Yes (25173) High: No (06235) Jesica Murphy PT [facility] - [place] 2023-08-15 10:01:34 Associated Order(s): CONSULT CARDIOLOGY [facility] Cardiology Consult Note Patient: Saturnino Maldonado Date [...] per primary team. Last Two A1C Results ([facility]/, POCT, [place]) Recent Labs 04/20/23195408/14/23 1547 HGBA1C [...] feel free to call our office at [phone]. I would be happy to be of further assistance for Saturnino Maldonado wellbeing. Voice recognition software has been used to create portions of this document. An attempt to proofread has been made to minimize errors. Please do not hesitate to call with any questions. Benja Rivera MD [employer], Division of Cardiology [facility] 2023-04-21 08:46:48 Associated Order(s): CONSULT ENDOCRINOLOGY Endocrinology Consult Note Consultation requested by: Service: White team Reason for Consultation: Diabetes Date of Service: 04/21/23 HPI 57 year old male with a PMH of HTN, T2DM, Fmhx premature CAD who presented with complaints of polyuria and weakness at [facility] ER. Patient transferred to [place] for further work up. Endocrinology consulted for diabetes management Diabetes Type and year diagnosed: 2011, type 2 Diabetes complications: none Hx of DM regimen: no meds for 3 years Compliance: - BG monitoring? - Hypoglycemia hx: no Hypoglycemia unawareness? no Symptoms of hyperglycemia: polyuria Living situation and support: homeless, lives with different relatives Diabetes doctor: PCP in [place], has not seen for few years Family [...] with complaints of polyuria and weakness at [facility] ER. Patient transferred to [place] for further work up. Endocrinology consulted for [...] pay, need NPH and Regular insulin to [facility] ([employer]) -Need insulin vials, syringe needles, glucometer, test strips, lancets -Need meds to bed before discharge -Please contact Endocrine before discharge - Case discussed with Dr. Cabrera.. Austin Amaro. Endocrinology Fellow, PGY 5 CTOR INDEX Associated attestation - Rita Cabrera MD - 04/22/2023 2:11 PM DIRECTOR INDEX Endocrinology Faculty Attestation: I evaluated this patient's progress on 04/21/[address] Amaro note as written and revised. I actively participated in the decision-making process. Please see the resident's note for additional details that includes pertinent addendums I made directly in the note during revision. Rita Cabrera MD [employer] Division of Endocrinology IM-ENDOCRINOLOGY,DIABET ES & METABOLISM [facility] - Health History and Physical Notes Date/Time Note Provider Source 2023-08-21 22:53:53 [facility] Hospitalist Admission H&P Date of Service: 08/21/2023 [...] consulted. Patient was given the application for [employer] on last admission and will need to [...] user?: NO Patient will require observation [place] [employer] ACT INSTRUCTOR was verified during stay Lyubov Banda MD [facility] 2023 22:58:21 MEDICINE MEGADC ADMIT H&P Date of Service: 2023 CHIEF [...] 152/88 Pulse: 107 80 81 Resp: 12 18 Temp: 36.5 ?C (97.7 ?F) TempSrc: [...] present Code Status: Presumed Full Code T [facility] EMERGENCY PHYSIC[facility] STAFF [facility] 2023-04-21 00:39:12 MCAWHITE Admit H&P PCP: Erik Louie Jr Date of Service: 04/20/2023 CHIEF COMPLAINT: Polyuria HISTORY OF PRESENT ILLNESS Saturnino Maldonado is a 57 year old male with a PMH of HTN, T2DM, Fmhx premature CAD who presented with complaints of polyuria and weakness at [facility] ER. Patient transferred to [place] for further work up. Patient reports that [...] help with resources. Plan: - Admit to [facility] - Trend Troponin to peak - Heparin [...] Internal Medicine Department PGY 2, [place] Team CTOR INDEX Associated attestation - Bret Banda MD - 04/21/2023 2:47 PM DIRECTOR INDEX I reviewed patient's chart, vitals, lab work, current medications and other diagnostic studies. I saw and examined the patient today and agree with the detailed note. I actively participated in the decision-making process. Bret Banda MD [employer] Division of Cardiology [facility] - Health Notes Date/Time Note Provider Source 2023-08-24 16:07:54 [...] Outcome: Adequate for discharge Kalina Georges RN [facility] 2023-08-24 13:14:04 Problem: Pain Goal: Control [...] Absence of falls Outcome: Adequate for discharge [facility] 2023-08-23 07:12:12 Problem: Pain Goal: Control [...] Absence of falls Outcome: Progressing as expected T Abi Lowery RN [facility] 2023-08-22 22:07:54 Problem: Pain Goal: Control [...] Outcome: Progressing as expected Tammy Sweeney RN [facility] 2023-08-22 08:41:53 Problem: Pain Goal: Control [...] Outcome: Progressing as expected Mihaela Lopez RN [facility] 2023-08-22 03:26:01 Problem: Pain Goal: Control [...] Outcome: Progressing as expected Angeline Claudio RN [facility] 2023-08-21 23:32:26 Patient admitted to [facility] 2101 for diagnosis of ELIEZER, urinary obstruction Patient agrees to admission, discussed plan of care with patient and family. Patient is awake, alert, oriented, resp reg unlabored, color appropriate for race, PIV intact No adverse reaction to medications administered while in ED Belongings with patient to unit Report to [facility] RN Chela Reyes RN [facility] 2023-08-21 19:43:36 Pt C/O RLQ pain that started yesterday, pt states last BM 08/16/2023. Pt denies any urinary, nausea or vomiting Sydney Duff RN [facility] 2023-08-21 19:39:00 [facility] Emergency Department Note Patient Name: Saturnino Maldonado Date of : 1965 58 year old male Treatment Room: [place] [address] Primary Care Physician: Erik Louie Jr Patient Escorted by: Self [9] Mode of Arrival: EMS - [place] [46] EMS Treatment Prior to ED Arrival: SOURCER treatment: None Travel and Exposure Screening: Symptoms [...] 0.01 - 0.09 10*3/uL COMP. METABOLIC PANEL (13565) - Abnormal NA 120 (*) 135 - [...] CONTRAST Cbc with Diff Comp. Metabolic Panel (85846) Lipase Urinalysis Basic Metabolic Panel (NA, K, [...] treatment AdmissionCare documentation entered by: Cosme Cardona [facility] [place], 27th edition, Copyright ? 2022 [facility] [employer] All Rights Reserved. [id number]:26:32-05:00 ED COURSE ED Course as of 08/21/235 Sat Aug 21, 20232224 CREATININE(!): 8.39 [PS] 2224 NA(!): 120 [PS] 2224 WBC x10 3 (!): 14.75 [PS] 2224 WBC/HPF(!): 31 [PS] 222 LEUK MANAS(!): 250/uL [PS] ED Course User [...] Follow-up: Electronically signed by: Cosme Cardona DO 08/21/232254 [facility] 2023-08-21 19:39:00 AdmissionCare Guideline: Urologic [...] documentation entered by: Cosme Cardona [facility], 27th edition, Copyright ? 2022 [facility] [employer] [facility] All Rights Reserved. [id number]:32-05:[address] [facility] 2023-08-17 08:32:29 ----- Message from Yary [...] with one of us in 3-[address] [facility] 2023-08-16 17:56:55 Summary: discharge transportation Discharge paperwork provided, patient stated he does not have a ride. Transportation was arranged with voucher. Discharge location: [address] [place] [id number] Patient verbalized understanding. [facility] Hilary Quinones RN [facility] 2023-08-16 17:19:16 Problem: Pain Goal: Control of pain at or below patient's documented comfort goal Outcome: Resolved Goal: Reduction in pain sensation Outcome: Resolved Problem: Skin integrity Impaired (Risk or Actual) Goal: Prevention of new skin breakdown Outcome: Resolved Problem: Venous Thromboembolism, (actual or risk of) Goal: Absence of venous thromboembolism (Risk) Outcome: Resolved [facility] 2023-08-16 10:33:18 Summary: jensen Jensen discontinued without complications. Patient given lactulose PO. Patient notified to notify nurse and to leave urine/stool before flushing for nursing staff to assess. Patient verbalized understanding. [facility] 2023-08-16 00:51:24 Problem: Pain Goal: [...] venous thromboembolism (Risk) Outcome: Progressing as expected [facility] 2023-08-15 19:27:06 Problem: Pain Goal: [...] venous thromboembolism (Risk) Outcome: Progressing as expected Libia Johnson RN [facility] 2023 23:43:36 Problem: Pain Goal: Control of pain at or below patient's documented comfort goal Outcome: Progressing as expected Goal: Reduction in pain sensation Outcome: Progressing as expected Problem: Skin integrity Impaired (Risk or Actual) Goal: Prevention of new skin breakdown Outcome: Progressing as expected Problem: Venous Thromboembolism, (actual or risk of) Goal: Absence of venous thromboembolism (Risk) Outcome: Progressing as expected [facility] 2023 23:01:15 Patient admitted to [facility] for diagnosis of Hypertension, elevated troponin, urine retention, ELIEZER, hypokalemia. Patient agrees to admission, discussed plan of care with patient and family. Patient is awake, alert, oriented, resp reg unlabored, color appropriate for race, PIV intact No adverse reaction to medications administered while in ED Belongings with patient to unit Report to [facility] RN Josi Miller RN [facility] 2023 18:56:57 Handoff report given to Josi VILLAGRAN Nunu Fang RN [facility] 2023 14:42:29 Has been out of diabetic, BP meds since April. States he can't "afford it". Struggling with constipation for "several days". He called EMS today for excessive fatigue and worsening hypertension. He is A&Ox4 and able to ambulate. Alba Hernandez RN [facility] - Health 2023 14:38:00 Associated Order(s): EKG-12 Lead ROUTINE ONCE Pre-Procedure Diagnose(s): Hypertension, unspecified type Post-Procedure Diagnose(s): Hypertension, unspecified type; Elevated troponin I level; Urine retention [facility] Emergency Department Note Patient Name: Saturnino Maldonado Date of : 1965 58 year old male Treatment [facility] Primary Care Physician: Erik Louie Jr Patient Escorted by: Self [9] Mode of Arrival: EMS - [place] [46] EMS Treatment Prior to ED Arrival: [...] History provided by: 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 2022 [employer] All Rights Reserved. [id number]:45:18-05:00 [facility] [place] 2023 14:38:00 AdmissionCare Guideline: Renal Failure (Acute) [...] patients) AdmissionCare documentation entered by: Umang Reynaga [employer], edition, Copyright ? 2022 [employer] All Rights Reserved. [id number]:00:25-05:[address] [facility] 2023-04-27 15:56:14 TRANSITIONAL CARE MANAGEMENT ASSESSMENT 04/27/2023 Saturnino Maldonado [id number] Saturnino Maldonado is a 57 year old /White male was admitted on 04/20/[address] He was discharged on 04/23/23 with discharge disposition of HR- Routine Discharge. Admitting Physician: Parvez Monroe Discharge Diagnosis: NSTEMI (non-ST elevated myocardial infarction) [I21.4] Coni is going to give message to pt. Aware of f/u appt. At [facility]. He voiced he had a ride to her. If he needs anything she will pass my message to him. She hears from him if he needs something or to check in. No linked episodes TCM Gfp-[id number]-[id number]-face outreach documentation: Future Appointments: CTOR INDEX Jeannette Dawn LVN [facility] 2023-04-23 18:39:42 Patient refuses to take taxi voucher which takes him directly to [employer] [facility] [employer] [facility] stating, "My brother is on his way to pick me up. I don't want to upset him as it is anymore." When asked if his brother is going to take him to [employer] [facility], patient stated, "I don't know. That will be between me and my brother." Transportation in room, wheeled patient downstairs to [facility]. CTOR INDEX Meme Sparks RN [facility] 2023-04-23 17:33:42 Problem: Glucose control Goal: Glucose level within specified parameters 04/23/2023 1733 by Valentino Whiting, RN Outcome: [...] or below patient's documented comfort goal 04/23/2023 173 by Valentino Whiting RN Outcome: Adequate for discharge 04/23/2023 1732 by Valentino Whiting RN Outcome: Adequate for discharge 04/23/2023 1051 by Valentino Whiting, RN Outcome: Progressing as expected Goal: Reduction in pain sensation 04/23/2023 1733 by Valentino Whiting, RN Outcome: Adequate for discharge 04/23/2023 1732 by Valentino Whiting, RN Outcome: Adequate for discharge 04/23/2023 1051 by Valentino Whiting, RN Outcome: Progressing as expected Problem: Tissue Perfusion, Cardiopulmonary - Altered Goal: Circulatory function within specified parameters 04/23/2023 1733 by Valentino Whiting, RN Outcome: Adequate for discharge 04/23/2023 1732 by Valentino Whiting, RN Outcome: Adequate for discharge 04/23/2023 1051 by Valentino Whiting, RN Outcome: Progressing as expected Problem: Mental Status - Impaired Goal: Able to achieve maximum level of cognitive ability 04/23/2023 1733 by Valentino Whiting, RN Outcome: Adequate for discharge 04/23/2023 1732 by Valentino Whiting, RN Outcome: Adequate for discharge 04/23/2023 1051 by Valentino Whiting, RN Outcome: Progressing as expected A Whiting RN [facility] 2023-04-23 17:33:03 Problem: Glucose control Goal: Glucose level within specified parameters 04/23/2023 1732 by Valentino Whiting RN Outcome: Adequate for discharge 04/23/2023 1051 by Valentino Whiting RN Outcome: Progressing as expected Problem: Discharge Planning Goal: Adequate for discharge 04/23/2023 1732 by Valentino Whiting RN Outcome: Adequate for discharge 04/23/2023 1051 by Valentino Whiting RN Outcome: Progressing as expected Goal: Adequate to move to next level of care 04/23/2023 173 by Valentino Whiting RN Outcome: Adequate for discharge 04/23/2023 1051 by Valentino Whiting RN Outcome: Progressing as expected Problem: Pain [...] Valentino Whiting RN Outcome: Progressing as expected CTOR INDEX [facility] 2023-04-23 10:51:50 Problem: Glucose control Goal: [...] of cognitive ability Outcome: Progressing as expected [facility] 2023-04-23 00:56:44 Problem: Mental Status - Impaired Goal: Able to achieve maximum level of cognitive ability Outcome: Progressing as expected [facility] 2023-04-23 00:52:07 Problem: Glucose control Goal: [...] within specified parameters Outcome: Progressing as expected [facility] 2023-04-22 08:03:00 Problem: Glucose control Goal: [...] within specified parameters Outcome: Progressing as expected [facility] 2023-04-20 23:38:56 Problem: Glucose control Goal: [...] within specified parameters Outcome: Progressing as expected [facility] 2023-04-20 21:49:51 Patient admitted to [facility] ROOM 923 for diagnosis of WEAKNESS, NSTEMI, HYPERGLYCEMIA Patient agrees to admission, discussed plan of care with patient. Patient is awake, alert, oriented, resp reg unlabored, color appropriate for race, PIV intact No adverse reaction to medications administered while in ED Belongings with patient to unit Report to MARIE VILLAGRAN REPORT GIVEN TO [facility], PT LOADED TO BE TRANSFERRED. HEPARIN INFUSING AT 700 UNITS/ HOUR. [facility] Jaelyn Vargas RN [facility] 2023-04-20 21:38:11 Report called to [facility], spoke with Marie VILLAGRAN. Pt awaiting EMS transfer. [facility] 2023-04-20 20:59:06 [facility] ETA 45 MIN per Chen CTOR INDEX Yoon Carrero PCT [facility] 2023-04-20 20:54:15 Associated Order(s): Critical Care [...] separately billable procedures and treating other patients. [facility] 2023-04-20 20:00:00 Patient aware of UA sample needed. Unable to provide sample at this moment. Urinal at bedside. Call light within reach. [facility] [place] 2023-04-20 19:50:08 Patient arrived to ED via [facility] c/o "not feeling well." FSBG 386 SOURCER. Per patient he was diagnosed with DM five years ago and stopped taking home meds-Metformin about three years ago. Patient c/o of being weak and increased UOP. Patient was nauseous SOURCER but has resolved since. CTOR INDEX [facility] 2023-04-20 19:43:00 EMERGENCY DEPARTMENT ENCOUNTER [facility] Patient Name: Saturnino Maldonado Date of : 1965 57 year old Exam Room:Room/bed info not found Primary Care Physician: No primary care provider on file. Pre- Hospital Patient Escorted by: Self [9] Mode of Arrival: EMS - [facility] ([facility] [place] [43] EMS Treatment Prior to ED Arrival: SOURCER treatment: Saline lock;IVF ED Events Date/Time Event User Comments 04/20/231943 Medical Screening Begins SERGIO APONTE MD -- 04/20/231943 First Provider Evaluation SERGIO APONTE MD -- Chief Complaint Chief Complaint Patient presents with High Blood Sugar ED Triage Notes Megan Madrigal RN 04/20/2023 19:52 Patient arrived to ED via [facility] c/o "not feeling well." FSBG 386 SOURCER. Per patient he was diagnosed with DM five years ago and stopped taking home meds-Metformin about three years ago. Patient c/o of being weak and increased UOP. Patient was nauseous SOURCER but has resolved since. HPI History provided [...] 0.01 - 0.09 10*3/uL COMP. METABOLIC PANEL (11173) - Abnormal NA 129 (*) 135 - [...] VW CBC WITH DIFF COMP. METABOLIC PANEL (58086) URINALYSIS URINE DRUG (IMMUNOASSAY) - COMPREHENSIVE DRUG SCREEN W/O REFLEX ETHANOL POCT GLUCOSE (AUTOMATED) Troponin I Prothrombin Time / INR aPTT aPTT (for use with Heparin Infusion) Ferritin Serum Iron Panel Troponin I Thyroid Stimulating Hormone Glycosylated Hemoglobin (A1C) Phosphorus Cbc with Diff Basic Metabolic Panel (NA, K, CL, CO2, GLUCOSE, BUN, CREATININE, CA) Magnesium Lipid Panel (82505)(Total Cholesterol, Triglycerides, HDL) O2 Per Protocol Orders [...] mg Procedures EKG Time 1950 Sinus tach Sweeny normal Intervals normal No acute ischemia Notes [...] cardiac catheterization. The patient was transferred to [place] for further evaluation. History, physical exam findings, [...] this patient. Sergio Aponte Jr., MD Clinical [employer] [facility] Emergency Department [employer] is used frequently and may produce errors. Promptly contact for obvious discrepancies. Sergio Aponte MD 04/21/23 0025 [facility] EMERGENCY PHYSICIAN STAFF [facility]
--- NOTE | 2024-06-28 19:51 | RAD REPORT ---
EXAM:Femur Right HISTORY: PAIN RIGHT COMPARISON: None IMPRESSION: No right femur fracture. The right hip is located. Peripheral vascular calcifications.
--- NOTE | 2024-06-28 20:30 | EDPHYS ---
Physician Documentation [facility] Name: Johnnie Maldonado Age: 58 yrs Sex: Male : 1965 Arrival Date: 06/28/2024 Time: 18:12 Bed 11 Private MD: ED Physician Fernando Schafer HPI: 06/28 20:42 This 58 yrs old Male presents to ER via Wheelchair with complaints of Fall rt Injury. 20:42 Patient presents to the ED with mechanical trip and fall. Reports pain to the right rt thigh, denies other injury, head trauma, other complaints, symptoms are mild severity, aching nature, nonradiating, no other aggravating alleviating factors.. Historical: - Allergies: 18:41 No Known Allergies; cm10 - PMHx: 18:41 diabetes mellitus; Hypertensive disorder; raynaud's; Urinary incontinence; cm10 - PSHx: 18:41 right arm; cm10 - Immunization history:: Adult Immunizations up to date. - Infectious Disease History:: Denies. - Social history:: Smoking status: Patient denies any tobacco usage or history of. - Family history:: not pertinent. ROS: 20:42 Constitutional: Negative for fever, chills, and weight loss, Cardiovascular: Negative rt for chest pain, palpitations, and edema, Respiratory: Negative for shortness of breath, cough, wheezing, and pleuritic chest pain, Abdomen/GI: Negative for abdominal pain, nausea, vomiting, diarrhea, and constipation, Skin: Negative for injury, rash, and discoloration, Neuro: Negative for headache, weakness, numbness, tingling, and seizure, 20:42 MS/extremity: Positive for pain, Negative for deformity, Exam: 20:42 Constitutional: This is a well developed, well nourished patient who is awake, alert, rt and in no acute distress. Head/Face: Normocephalic, atraumatic. Chest/axilla: Normal chest wall appearance and motion. Nontender with no deformity. No lesions are appreciated. Cardiovascular: Regular rate and rhythm with a normal S1 and S2. No gallops, murmurs, or rubs. Normal PMI, no JVD. No pulse deficits. Respiratory: Lungs have equal breath sounds bilaterally, clear to auscultation and percussion. No rales, rhonchi or wheezes noted. No increased work of breathing, no retractions or nasal flaring. Abdomen/GI: Soft, non-tender, with normal bowel sounds. No distension or tympany. No guarding or rebound. No evidence of tenderness throughout. Skin: Warm, dry with normal turgor. Normal color with no rashes, no lesions, and no evidence of cellulitis. Neuro: Awake and alert, GCS 15, oriented to person, place, time, and situation. Cranial nerves II-XII grossly intact. Motor strength 5/5 in all extremities. Sensory grossly intact. Cerebellar exam normal. Normal gait. 20:42 Musculoskeletal/extremity: Mild tenderness to the mid thigh, no deformities, no other focal areas of tenderness, pulse, motor, sensation intact. Vital Signs: 18:40 BP 142 / 79; Pulse 103; Resp 18; Temp 97.9(TE); Pulse Ox 98% on R/A; Weight 54.43 kg; cm10 Height 5 ft. 3 in. ; Pain 6/10; 18:40 Body Mass Index 21.26 (54.43 kg, 160.02 cm) cm10 18:40 Pain Scale: Adult cm10 MDM: 18:43 Medical Screening Exam initiated rt 20:42 Differential diagnosis: Contusion, fracture. Data reviewed: vital signs, nurses notes, rt radiologic studies. I considered the following discharge prescriptions or medication management in the emergency department Medications were administered in the Emergency Department. See MAR. Independent interpretation of the following test(s) in the Emergency Department X-Ray: My interpretation is No fracture seen on interpretation of x-ray images. Care significantly affected by the following chronic conditions: Diabetes, Hypertension. Counseling: I had a detailed discussion with the patient and/or guardian regarding the historical points, exam findings, and any diagnostic results supporting the discharge/admit diagnosis, radiology results, the need for outpatient follow up. Response to treatment: the patient's symptoms have markedly improved after treatment. 06/28 18:50 Order name: Femur Right XRAY; Complete Time: 19:58 rt 06/28 18:50 Order name: Crutches; Complete Time: 20:45 rt 06/28 20:28 Order name: Misc. Order: may eat; Complete Time: 20:35 rt Administered Medications: 20:45 Drug: Ibuprofen PO 800 mg PO once Route: PO; jb4 20:52 Follow up: Response: No adverse reaction; Marked relief of symptoms jb4 Disposition Summary: 06/28/24 20:29 Discharge Ordered Notes: Location: Home rt Condition: Stable rt Diagnosis - Mechanical fall rt - Right leg pain rt Followup: rt - With: Private Physician - When: 2 - 3 days - Reason: Discharge Instructions: - Discharge Summary Sheet rt - Contusion rt Forms: - Medication Reconciliation Form rt - Antibiotic Education rt - Prescription Opioid Use rt - Patient Portal Instructions rt - Leadership Thank You Letter rt Signatures: Dispatcher [employer] Adithya Sheets, RN RN jb4 Fernando Schafer MD MD rt María Virk RN RN cm10 Corrections: (The following items were deleted from the chart) 18:41 18:41 Allergies: Aspirin; cm10 cm10 18:51 18:51 Femur Right+RAD.RAD.[email or web address] ordered. EDMA EDMS
--- NOTE | 2024-06-28 20:30 | ER ---
Nurse's Notes [facility] Name: Johnnie Maldonado Age: 58 yrs Sex: Male : 1965 Arrival Date: 06/28/2024 Time: 18:12 Bed 11 Private MD: Diagnosis: Mechanical fall;Right leg pain Presentation: 06/28 18:40 Chief complaint: Patient states: Right upper leg pain onset last night s/p trip and cm10 fall. Pt denies hitting head. Coronavirus screen: Client denies travel out of the [place] in the last 14 days. Ebola Screen: Patient denies travel to an Ebola-affected area in the 21 days before illness onset. Initial Sepsis Screen: Does the patient meet any 2 criteria? No. Patient's initial sepsis screen is negative. Does the patient have a suspected source of infection? No. Patient's initial sepsis screen is negative. Risk Assessment: Do you want to hurt yourself or someone else? Patient reports no desire to harm self or others. Onset of symptoms was June 28, 2024. 18:40 Method Of Arrival: Wheelchair cm10 18:40 Acuity: DONTE 4 cm10 Triage Assessment: 18:42 General: Appears in no apparent distress. uncomfortable, Behavior is calm, cooperative. cm10 Pain: Complains of pain in right quadriceps Pain currently is 6 out of 10 on a pain scale. Quality of pain is described as throbbing. Neuro: No deficits noted. Level of Consciousness is awake, alert, obeys commands, Oriented to person, place, time, situation, Appropriate for age. Respiratory: No deficits noted. Airway is patent Respiratory effort is even, unlabored, Respiratory pattern is regular, symmetrical. Historical: - Allergies: 18:41 No Known Allergies; cm10 - PMHx: 18:41 diabetes mellitus; Hypertensive disorder; raynaud's; Urinary incontinence; cm10 - PSHx: 18:41 right arm; cm10 - Immunization history:: Adult Immunizations up to date. - Infectious Disease History:: Denies. - Social history:: Smoking status: Patient denies any tobacco usage or history of. - Family history:: not pertinent. Screenin:[facility] ED Fall Risk Assessment (Adult) History of falling in the last 3 months, jb4 including since admission No falls in past 3 months (0 pts) Confusion or Disorientation No (0 pts) Intoxicated or Sedated No (0 pts) Impaired Gait No (0 pts) Mobility Assist Device Used No (0 pt) Altered Elimination No (0 pt) Score/Fall Risk Level 0 - 2 = Low Risk Oriented to surroundings, Maintained a safe environment. Abuse screen: Denies threats or abuse. Nutritional screening: No deficits noted. Tuberculosis screening: No symptoms or risk factors identified. Assessment: 20:53 Reassessment: Patient appears in no apparent distress at this time. Patient and/or jb4 family updated on plan of care and expected duration. Pain level reassessed. Patient is alert, oriented x 3, equal unlabored respirations, skin warm/dry/pink. Vital Signs: 18:40 BP 142 / 79; Pulse 103; Resp 18; Temp 97.9(TE); Pulse Ox 98% on R/A; Weight 54.43 kg; cm10 Height 5 ft. 3 in. ; Pain 6/10; 18:40 Body Mass Index 21.26 (54.43 kg, 160.02 cm) cm10 18:40 Pain Scale: Adult cm10 ED Course: 18:16 Patient arrived in ED. al6 18:21 Fernando Schafer MD is Attending Physician. rt 18:41 Triage completed. cm10 18:42 Arm band placed on right wrist. Patient placed in waiting room. cm10 19:29 Femur Right XRAY In Process Unspecified. EDMS 20:53 Patient has correct armband on for positive identification. Bed in low position. Call jb4 light in reach. Side rails up X 1. Provided Education on: discharge instructions.. 20:53 No provider procedures requiring assistance completed. Patient did not have IV access jb4 during this emergency room visit. Administered Medications: 20:45 Drug: Ibuprofen PO 800 mg PO once Route: PO; jb4 20:52 Follow up: Response: No adverse reaction; Marked relief of symptoms jb4 Medication: 20:53 VIS not applicable for this client. jb4 Outcome: 20:29 Discharge ordered by . rt 20:53 Discharged to lobby in a wheelchair to call ride home. jb4 20:53 Condition: stable 20:53 Discharge instructions given to patient, Instructed on discharge instructions, follow up and referral plans. Demonstrated understanding of instructions, follow-up care, 20:54 Patient left the ED. jb4 Signatures: Dispatcher [employer] Adithya Sheets RN RN jb4 Fernando Schafer MD MD rt María Virk RN RN cm10 Nazanin Johnson6 Corrections: (The following items were deleted from the chart) 18:41 18:41 Allergies: Aspirin; cm10 cm10
[2024-06-28] MEDS ORDERED: IBUPROFEN 400 MG TAB ONE (20:39)
[2024-06-28 21:17] VITALS: BP 142/79; TEMP 97.9; O2SAT 98
== END 2024-06-28 20:54 | disposition home or self-care (01) ==
LOC: ER 18:12
DX: M79.651 Pain in right thigh (principal); W01.0XXA Fall on same level from slipping, tripping and stumbling without subsequent striking against object, initial encounter

== ENCOUNTER 2024-07-02 04:17 | Emergency (ER) | payer SELFPAY ==
--- OUTSIDE RECORDS SUMMARY | 2024-07-02 04:24 | XMS REPORT | Continuity of Care Document ---
Author Name Unknown Address [address] [facility] [address] [place] [address] [facility] [place] Address [address] [facility] [address] [place] [address] Care Team Providers Care Director Of [employer] Name Role Phone Erik Louie Jr. Primary Care Physician [phone] Doctor Unassigned, [place] Attending Clinician U Cosme Ward DO Attending Clinician [phone] Solo CHONG, Lyubov Hilton Attending Clinician [phone] Rosalie Irizarry RN Attending Clinician [phone] Miguel CHONG, Ricky Hoskins Attending Clinician [phone] Umang Reynaga MD Attending Clinician [phone] Jerry Fields DO Attending Clinician [phone] Vimal Quiñones MD Attending Clinician [phone] Jeannette Dawn LVN Attending Clinician + [phone] PARVEZ MONROE Attending Clinician Unavailable Sergio Aponte MD Attending Clinician [phone] Bret Banda MD Attending Clinician [phone] Parvez Monroe MD Attending Clinician [phone] Lyubov Banda MD Admitting Clinician [phone] Jerry Fields DO Admitting Clinician [phone] PARVEZ MONROE Admitting Clinician Unavailable Parvez Monroe MD Admitting Clinician [phone] Problems Condition Name Condition Details Condition Category Status Onset Date Resolution Date Last Treatment Date Treating Clinician Comments Source Elevated troponin I level Elevated troponin I level Disease Active 08-14 00:00: 00 [facility] Elevated brain natriureti c peptide (BNP) level Elevated brain natriureti c peptide (BNP) level Disease Active 08-14 00:00: 00 [facility] Essential hypertensi on Essential hypertensi on Disease Active 08-14 00:00: 00 [facility] ELIEZER (acute kidney injury) ELIEZER (acute kidney injury) Disease Active 08-14 00:00: 00 [facility] Type 2 diabetes mellitus with other specified complicati on Type 2 diabetes mellitus with other specified complicati on Disease Active 08-14 00:00: 00 [facility] Hypertensi on, unspecifie d type Hypertensi on, unspecifie d type Disease Active 08-13 00:00: 00 [facility] NSTEMI (non-ST elevated myocardial infarction ) NSTEMI (non-ST elevated myocardial infarction ) Disease Active 2022-04 00:00: 00 [facility] Allergies, Adverse Reactions, Alerts Allergy Name Allergy Type Status Severity Reaction(s) Onset Date Inactive Date Treating Clinician Comments Source NO KNOWN ALLERGIE S Drug Class Active [facility] Social History Social Habit Start Date Stop Date Quantity Comments [facility] 2023-08-23 00:00:00 2023-08-23 00:00:00 [facility] Alcohol intake 2023-08-22 00:00:00 2023-08-22 00:00:00 Lifetime non-drinker (finding) [facility] Alcoholic beverage intake 2023-08-22 00:00:00 2023-08-22 00:00:00 Lifetime non-drinker (finding) [facility] Tobacco use and exposure 2023-04-21 00:00:2023-04-21 00:00:00 Smokeless tobacco non-user [facility] Sex assigned at 1965 00:00:00 1965 00:00:00 [facility] Smoking Status Start Date Stop Date Source Never smoked tobacco [facility] Medications Ordered Medication Name Filled Medication Name Start Date Stop Date Current Medication? Ordering Clinician Indication Dosage Frequency Signature (SIG) Comments Components Source acarbose 25 mg tablet 08-23 00:00: 00 Yes [id number] 25mg Take 1 tablet by mouth in the morning and 1 tablet at noon and 1 tablet in the evening. Take with meals. [facility] metFORMIN 500 mg 24 hr tablet 08-23 00:00: 09-23 04:59 :00 No [id number] 500mg Take 1 tablet by mouth in the morning and 1 tablet in the evening. Take with meals. Do all this for 30 days. [facility] amLODIPine 10 mg tablet 08-23 00:00: 09-23 04:59 :00 No [id number] 10mg Take 1 tablet by mouth in the morning for 30 days. [facility] tamsulosin 0.4 mg 24 hr capsule 08-23 00:00: 00 09-23 04:59 :00 No [id number] .4mg Take 1 capsule by mouth in the morning for 30 days. [facility] levoFLOXaci n 500 mg tablet 08-23 00:00: 08-26 04:59 :00 No [id number] 500mg Take 1 tablet by mouth every 24 (twenty-fo ur) hours for 2 days. [facility] cefTRIAXone (ROCEPHIN) 1,000 mg in NaCl 0.9% (NS) 100 mL MINI-BAG 08-22 19:30: 00 08-26 19:29 :00 No 1000mg 1,000 mg, IV Piggyback, Q24H ABX, 4 doses, First dose on Wed08/23/23 at 1430, Last dose on Naa 08/26/23 at 1430, Administer over 30 Minutes, 100 mL
Reas on for Anti-Infec tive: Empiric Therapy for Suspected Infection< br>Empiric Therapy Site: Urine
D uration of therapy: Once (ED) [facility] D5W IV infusion 1,000 mL 08-22 15:00: 00 08-22 16:53 :22 No 1000mL at 50 mL/hr, IV Infusion, ONCE, 1 dose, On Wed08/23/23 at 1000, Routine [facility] amLODIPine (NORVASC) tablet 5 mg 08-22 14:00: 00 Yes 5mg 5 mg, Oral, DAILY, First dose on Wed08/23/23 at 0900, Until Discontinu ed, Routine [facility] D5W 0.45% NaCl (1/2NS) IV infusion 1,000 mL 08-22 02:29: 00 08-23 17:53 :57 No 1000mL at 75 mL/hr, 1,000 mL, IV Infusion, CONTINUOUS , Starting on Wed08/22/23 at 2130, Until Wed08/24/23 at 1253, Routine [facility] D5W IV infusion 1,000 mL 08-21 21:30: 00 08-22 02:27 :22 No 1000mL at 100 mL/hr, IV Infusion, CONTINUOUS , Starting on Wed08/22/23 at 1630, Until Wed08/22/23 at 2127, Routine [facility] Sliding Scale Insulin - Lispro (HumaLOG) 08-21 21:00: 00 Yes Subcutaneo us, Q4H, First dose on Wed08/22/23 at 1600, Until Discontinu ed, Routine [facility] glucagon (GLUCAGEN DIAGNOSTIC KIT) injection 1 mg 08-21 20:17: 12 Yes 1mg 1 mg, Intramuscu lar, PRN, Starting on Wed08/22/23 at 1517, Until Discontinu ed, HAO, Blood Glucose < or = 70 mg/dL and patient is NPO, unable to swallow or has mental changes. [facility] dextrose 50 % in water (D50W) injection 25 mL 08-21 20:17: 12 Yes 25mL 25 mL, Slow IV Push, PRN, Starting on Wed08/22/23 at 1517, Until Discontinu ed, HAO, Blood Glucose < or = 70 mg/dL and patient is NPO, unable to swallow or has mental status changes. [facility] D5W IV infusion 1,000 mL 08-21 17:45: 00 08-21 20:16 :11 No 1000mL at 100 mL/hr, IV Infusion, CONTINUOUS , Starting on Wed08/22/23 at 1245, Until Wed08/22/23 at 1516, Routine [facility] tamsulosin (FLOMAX) capsule 0.4 mg 08-21 14:00: 00 Yes .4mg 0.4 mg, Oral, DAILY, First dose on Wed08/22/23 at 0900, Until Discontinu ed, Routine [facility] docusate (COLACE) capsule 100 mg 08-21 13:00: 00 Yes 100mg 100 mg, Oral, BID, First dose on Wed08/22/23 at 0800, Until Discontinu ed, Routine [facility] heparin (porcine) injection 5,000 Units 08-21 13:00: 00 Yes 5000U 5,000 Units, Subcutaneo us, Q12H, First dose on Wed08/22/23 at 0800, Until Discontinu ed, Routine [facility] D5W 0.45% NaCl (1/2NS) IV infusion 1,000 mL 08-21 06:15: 00 08-21 16:44 :38 No 1000mL at 100 mL/hr, 1,000 mL, IV Infusion, CONTINUOUS , Starting on Wed08/22/23 at 0115, Until Wed08/22/23 at 1144, Routine [facility] D5W 0.45% NaCl (1/2NS) Bolus infusion 1,000 mL 08-21 06:00: 00 08-21 06:21 :00 No 1000mL at 999 mL/hr, 1,000 mL, IV Infusion, ONCE, 1 dose, On Wed08/22/23 at 0100, Routine [facility] NaCl 0.9% (NS) bolus infusion 1,000 mL 08-21 04:15: 00 08-21 05:05 :00 No 1000mL at 999 mL/hr, 1,000 mL, IV Infusion, ONCE, 1 dose, On 08/21/23 at 2315, STAT [facility] bisacodyL (DULCOLAX) tablet 10 mg 08-21 04:02: 51 Yes 10mg 10 mg, Oral, QDAILYPRN, Starting on 08/21/23 at 2302, Until Discontinu ed, Routine, Constipati on [facility] ondansetron (ZOFRAN (PF)) injection 4 mg 08-21 04:02: 17 Yes 4mg 4 mg, Slow IV Push, Q6HPRN, Starting on 08/21/23 at 2302, Until Discontinu ed, Routine, Nausea and Vomiting (N/V) [facility] FENTanyl PF (SUBLIMAZE (PF)) injection 12.5 mcg 08-21 04:02: 09 08-22 04:01 :09 No 12.5ug 12.5 mcg, Slow IV Push, Q6HPRN, Starting on 08/21/23 at 2302, Until 08/22/23 at 2301, Routine, Pain (scale 7-10), Pain (scale 4-6) [facility] acetaminoph en (TYLENOL) tablet 650 mg 08-21 04:01: 56 Yes 650mg 650 mg, Oral, Q6HPRN, Starting on 08/21/23 at 2301, Until Discontinu ed, Routine, Pain (scale 1-3) [facility] magnesium citrate solution 296 mL 08-21 01:45: 00 08-21 01:25 :00 No 296mL 296 mL, Oral, ONCE, 1 dose, On 08/21/23 at 2045, Routine [facility] amLODIPine 5 mg tablet 08-16 00:00: 00 08-23 00:00 :00 No [id number] 5mg Take 1 tablet by mouth in the morning for 30 days. [facility] lactulose (CEPHULAC) solution 45 mL 08-15 15:45: 00 08-15 15:21 :00 No 45mL 45 mL, Oral, ONCE, 1 dose, On Wed08/16/23 at 1045, Routine [facility] amLODIPine (NORVASC) tablet 5 mg 08-15 14:00: 00 Yes 5mg 5 mg, Oral, DAILY, First dose on Wed08/16/23 at 0900, Until Discontinu ed, Routine [facility] sennosides (SENOKOT) tablet 8.6 mg 08-15 14:00: 00 Yes 8.6mg 8.6 mg, Oral, DAILY, First dose on Wed08/16/23 at 0900, Until Discontinu ed, Routine [facility] losartan (COZAAR) tablet 25 mg 08-15 14:00: 00 Yes 25mg 25 mg, Oral, DAILY, First dose (after last modificati on) on Wed08/16/23 at 0900, Until Discontinu ed, Routine [facility] docusate (COLACE) capsule 100 mg 08-15 13:00: 00 Yes 100mg 100 mg, Oral, BID, First dose on Wed08/16/23 at 0800, Until Discontinu ed, Routine [facility] lactulose (CEPHULAC) solution 30 mL 08-15 10:00: 00 08-15 09:33 :00 No 30mL 30 mL, Oral, ONCE, 1 dose, On Wed08/16/23 at 0500, Routine [facility] metFORMIN 500 mg 24 hr tablet 08-15 00:00: 00 08-23 00:00 :00 No [id number] 500mg Take 1 tablet by mouth in the morning and 1 tablet in the evening. Take with meals. Do all this for 30 days. [facility] acarbose 25 mg tablet 08-15 00:00: 00 08-23 00:00 :00 No [id number] 25mg Take 1 tablet by mouth in the morning and 1 tablet at noon and 1 tablet in the evening. Take with meals. Do all this for 30 days. [facility] pioglitazon e 15 mg tablet 08-15 00:00: 00 08-23 00:00 :00 No [id number] 15mg Take 1 tablet by mouth in the morning for 30 days. [facility] tamsulosin 0.4 mg 24 hr capsule 08-15 00:00: 00 08-23 00:00 :00 No [id number] .4mg Take 1 capsule by mouth in the morning for 30 days. [facility] losartan 25 mg tablet 08-15 00:00: 00 08-23 00:00 :00 No [id number] 25mg Take 1 tablet by mouth in the morning for 30 days. [facility] glipiZIDE (GLUCOTROL) tablet 5 mg 08-14 21:30: 00 Yes 5mg 5 mg, Oral, BIDAC, First dose on 08/15/23 at 1630, Until Discontinu ed, Routine [facility] KCL (KLOR-CON M20) tablet 40 mEq 08-14 21:30: 00 08-14 21:21 :00 No 40meq 40 mEq, Oral, ONCE, 1 dose, On 08/15/23 at 1630, Routine [facility] pioglitazon e (ACTOS) tablet 7.5 mg 08-14 17:00: 00 08-15 12:47 :51 No 7.5mg 7.5 mg, Oral, DAILY, First dose on 08/15/23 at 1200, Until Discontinu ed, Routine [facility] tamsulosin (FLOMAX) capsule 0.4 mg 08-14 15:49: 00 Yes .4mg 0.4 mg, Oral, DAILY, First dose on 08/15/23 at 1100, Until Discontinu ed, Routine [facility] amLODIPine (NORVASC) tablet 10 mg 08-14 14:00: 00 08-14 15:51 :30 No 10mg 10 mg, Oral, DAILY, First dose on 08/15/23 at 0900, Until Discontinu ed, Routine [facility] heparin (porcine) injection 5,000 Units 08-14 03:00: 00 08-14 06:07 :44 No 5000U 5,000 Units, Subcutaneo us, Q8H, First dose on 08/14/23 at 2200, Until Discontinu ed, Routine [facility] Sliding Scale Insulin - Lispro (HumaLOG) 08-14 02:00: 00 08-14 18:06 :14 No Subcutaneo us, TID MEALS+HS, First dose on 08/14/23 at 2100, Until Discontinu ed, Routine [facility] glucagon (GLUCAGEN DIAGNOSTIC KIT) injection 1 mg 08-14 00:36: 37 Yes 1mg 1 mg, Intramuscu lar, PRN, Starting on 08/14/23 at 1936, Until Discontinu ed, HAO, Blood Glucose < or = 70 mg/dL and patient is NPO, unable to swallow or has mental changes. [facility] dextrose 50 % in water (D50W) injection 25 mL 08-14 00:36: 37 Yes 25mL 25 mL, Slow IV Push, PRN, Starting on 08/14/23 at 1936, Until Discontinu ed, HAO, Blood Glucose < or = 70 mg/dL and patient is NPO, unable to swallow or has mental status changes. [facility] acetaminoph en (TYLENOL) tablet 650 mg 08-14 00:36: 24 Yes 650mg 650 mg, Oral, Q6HPRN, Starting on 08/14/23 at 1936, Until Discontinu ed, Routine, Pain (scale 1-3) [facility] aspirin chewable tablet 324 mg 08-13 23:15: 00 08-13 22:56 :00 No [id number] 324mg 324 mg, Oral, ONCE, 1 dose, On 08/14/23 at 1815, [facility] lidocaine 2% viscous (LIDOCAINE VISCOUS) 2 % solution 15 mL 08-13 23:00: 00 08-13 22:10 :00 No [id number] 15mL 15 mL, Oral, ONCE, 1 dose, On 08/14/23 at 1800, Routine [facility] KCL (KLOR-CON M20) tablet 20 mEq 08-13 22:30: 00 08-13 22:59 :00 No [id number] 20meq 20 mEq, Oral, ONCE, 1 dose, On 08/14/23 at 1730, [facility] metoprolol tartrate (LOPRESSOR) tablet 50 mg 08-13 22:00: 00 08-13 22:58 :00 No [id number] 50mg 50 mg, Oral, ONCE, 1 dose, On 08/14/23 at 1700, [facility] iopamidol (ISOVUE 370-500 mL) injection 80 mL 08-13 21:30: 00 08-13 21:45 :00 No [id number] 80mL 80 mL, Intravenou s, ONCE, 1 dose, On 08/14/23 at 1645, Routine [facility] acetaminoph en (TYLENOL) tablet 650 mg 08-13 21:15: 00 08-13 22:57 :00 No [id number] 650mg 650 mg, Oral, ONCE, 1 dose, On 08/14/23 at 1615, [facility] amLODIPine (NORVASC) tablet 5 mg 08-13 21:15: 00 08-13 22:58 :00 No [id number] 5mg 5 mg, Oral, ONCE, 1 dose, On 08/14/23 at 1615, [facility] NaCl 0.9% (NS) bolus infusion 1,000 mL 08-13 21:15: 00 08-13 21:50 :00 No [id number] 1000mL at 999 mL/hr, 1,000 mL, IV Infusion, ONCE, 1 dose, On 08/14/23 at 1615, HAO [facility] insulin NPH (HUMULIN N) injection 9 Units 2022-04 14:00: 00 Yes 9U 9 Units, Subcutaneo us, QAM WITH BREAKFAST, First dose (after last modificati on) on 04/24/23 at 0800, Until Discontinu ed, Routine [facility] losartan 25 mg tablet 2022-04 00:00: 00 08-15 00:00 :00 No [id number] 25mg Take 1 tablet by mouth in the morning. [facility] tamsulosin (FLOMAX) 0.4 mg 24 hr capsule 2022-04 00:00: 00 08-15 00:00 :00 No [id number] .4mg Take 1 capsule by mouth in the morning. [facility] metFORMIN 500 mg tablet 2022-04 00:00: 00 05-23 05:59 :00 No [id number] Take 1 tablet by mouth 2 (two) times daily with meals for 7 days, THEN 2 tablets 2 (two) times daily with meals for 21 days. [facility] insulin lispro (human) (HumaLOG U-100) injection 3 Units 2022-04 23:00: 00 Yes 3U 3 Units, Subcutaneo us, TID MEALS, First dose (after last modificati on) on Wed04/23/23 at 1700, Until Discontinu ed, Routine [facility] insulin NPH (HUMULIN N) injection 5 Units 2022-04 23:00: 00 Yes 5U 5 Units, Subcutaneo us, QPM, First dose (after last modificati on) on Wed04/23/23 at 1700, Until Discontinu ed, Routine [facility] losartan (COZAAR) tablet 25 mg 2022-04 15:00: 00 Yes 25mg 25 mg, Oral, DAILY, First dose on Wed04/23/23 at 0900, Until Discontinu ed, Routine [facility] Potassium Bicarb-Citr ic Acid (EFFER-K) effervescen t tablet 40 mEq 2022-04 13:00: 00 04-23 13:33 :00 No 40meq 40 mEq, Oral, ONCE, 1 dose, On Wed04/23/23 at 0700, Routine [facility] ramelteon (ROZEREM) tablet 8 mg 2022-04 10:45: 00 04-23 10:51 :00 No 8mg 8 mg, Oral, ONCE NOW, 1 dose, On Wed04/23/23 at 0500, Routine [facility] Blood-Gluco se Meter (ACCU-CHEK GUIDE GLUCOSE METER) [facility] 2022-04 00:00: 00 Yes [id number] Use as directed [facility] lancets 33 gauge [facility] 2022-04 00:00: 00 Yes [id number] Use as directed [facility] blood sugar diagnostic (ACCU-CHEK GUIDE TEST STRIPS) strip 2022-04 00:00: 00 Yes [id number] Use as directed [facility] pioglitazon e 15 mg tablet 2022-04 00:00: 00 08-15 00:00 :00 No [id number] 7.5mg Take 0.5 tablets by mouth in the morning. [facility] acarbose 25 mg tablet 2022-04 00:00: 00 08-15 00:00 :00 No [id number] 25mg Take 1 tablet by mouth in the morning and 1 tablet at noon and 1 tablet in the evening. Take with meals. [facility] atorvastati n 80 mg tablet 2022-04 00:00: 00 05-24 05:59 :00 No [id number] 80mg Take 1 tablet by mouth at bedtime for 30 days. [facility] glipiZIDE 5 mg tablet 2022-04 00:00: 00 05-24 05:59 :00 No [id number] 5mg Take 1 tablet by mouth 2 (two) times daily before breakfast and dinner for 30 days. [facility] enoxaparin (LOVENOX) injection 40 mg 2022-04 15:00: 00 Yes 40mg 40 mg, Subcutaneo us, DAILY, First dose on Wed04/22/23 at 0900, Until Discontinu ed, Routine [facility] insulin NPH (HUMULIN N) injection 8 Units 2022-04 14:00: 00 04-23 19:10 :37 No 8U 8 Units, Subcutaneo us, QAM WITH BREAKFAST, First dose on Wed04/22/23 at 0800, Until Discontinu ed, Routine [facility] insulin NPH (HUMULIN N) injection 4 Units 2022-04 23:00: 00 04-23 19:10 :37 No 4U 4 Units, Subcutaneo us, QPM, First dose on Wed04/21/23 at 1700, Until Discontinu ed, Routine [facility] insulin lispro (human) (HumaLOG U-100) injection 2 Units 2022-04 23:00: 00 04-23 19:10 :37 No 2U 2 Units, Subcutaneo us, TID MEALS, First dose (after last modificati on) on Wed04/21/23 at 1700, Until Discontinu ed, Routine [facility] NaCl 0.9% (NS) IV infusion 250 mL 2022-04 21:15: 00 04-22 20:03 :10 No [id number] 250mL at 20 mL/hr, IV Infusion, CONTINUOUS , Starting on Wed04/21/23 at 1515, Until Wed04/22/23 at 1403, Routine
To keep vein open
[facility] perflutren lipid microsphere s (DEFINITY) injection 2 mL 2022-04 21:00: 00 04-21 20:15 :00 No [id number] 2mL 2 mL, IV Push, ONCE, 1 dose, On Wed04/21/23 at 1500, Routine [facility] atropine injection 1 mg 2022-04 21:00: 00 04-21 20:44 :00 No [id number] 1mg 1 mg, Slow IV Push, ONCE, 1 dose, On Wed04/21/23 at 1500, Routine [facility] DOBUTamine (DOBUTREX) 250 mg/250 mL RTU infusion 2022-04 20:13: 51 04-22 20:03 :10 No [id number] 5ug/kg/ min 5 mcg/kg/min ?59 kg (17.7 [...] the Dobutamine infusion. (see Adjunctive Therapy)<b r> [facility] perflutren protein-A microsphr (OPTISON) injection 3 mL 2022-04 17:15: 00 04-21 15:22 :00 No [id number] 3mL 3 mL, IV Push, ONCE, 1 dose, On Wed04/21/23 at 1115, Routine [facility] potassium chloride in water 10 mEq/100 mL RTU 10 mEq 2022-04 17:00: 00 04-21 20:59 :00 No 10meq 10 mEq, IV Piggyback, Q1H, 4 doses, First dose (after last reorder) on Wed04/21/23 at 1100, Last dose on Wed04/21/23 at 1400, Administer over 60 Minutes, 100 mL [facility] tamsulosin (FLOMAX) capsule 0.4 mg 2022-04 15:00: 00 Yes .4mg 0.4 mg, Oral, DAILY, First dose on Wed04/21/23 at 0900, Until Discontinu ed, Routine [facility] aspirin chewable tablet 81 mg 2022-04 15:00: 00 04-22 16:28 :38 No 81mg 81 mg, Oral, DAILY, First dose on Wed04/21/23 at 0900, Until Discontinu ed, Routine [facility] aspirin tablet 325 mg 2022-04 15:00: 00 04-21 06:21 :21 No 325mg 325 mg, Oral, DAILY, First dose on Wed04/21/23 at 0900, Until Discontinu ed, Routine [facility] Sliding Scale Insulin - Lispro (HumaLOG) 2022-04 14:00: 00 Yes Subcutaneo us, TID MEALS+HS, First dose on Wed04/21/23 at 0800, Until Discontinu ed, Routine [facility] magnesium sulfate in water 2 gram/50 mL (4 %) infusion 2 g 2022-04 12:30: 00 04-21 15:11 :00 No 2g 2 g, IV Piggyback, Administer over 60 Minutes, ONCE, 1 dose, On Wed04/21/23 at 0630, Routine [facility] Potassium Bicarb-Citr ic Acid (EFFER-K) effervescen t tablet 40 mEq 2022-04 12:30: 00 04-21 12:36 :00 No 40meq 40 mEq, Oral, ONCE, 1 dose, On Wed04/21/23 at 0630, Routine [facility] insulin glargine (LANTUS U-100) injection 9 Units 2022-04 07:45: 00 04-21 21:08 :08 No .15U/kg /d 9 Units (rounded from 8.745 Units = 0.15 Units/kg/d ay ?58.3 kg), Subcutaneo us, QHS, First dose (after last modificati on) on Wed04/21/23 at 0145, Until Discontinu ed, Routine [facility] atorvastati n (LIPITOR) tablet 80 mg 2022-04 06:30: 00 Yes 80mg 80 mg, Oral, QHS, First dose on Wed04/21/23 at 0030, Until Discontinu ed, Routine [facility] dextrose 50 % in water (D50W) injection 25 mL 2022-04 06:24: 50 Yes 25mL 25 mL, Slow IV Push, PRN, Starting on Wed04/21/23 at 0024, Until Discontinu ed, HAO, Blood Glucose < or = 70 mg/dL and patient is NPO, unable to swallow or has mental status changes. [facility] acetaminoph en (TYLENOL) tablet 650 mg 2022-04 05:53: 21 Yes 650mg 650 mg, Oral, Q6HPRN, Starting on Wed04/20/23 at 2353, Until Discontinu ed, Routine, Pain (scale 1-3) [facility] NaCl 0.9% (NS) bolus infusion 1,000 mL 2022-04 04:00: 00 04-21 03:45 :00 No 1000mL at 999 mL/hr, 1,000 mL, IV Infusion, ONCE, 1 dose, On Wed04/20/23 at 2200, STAT [facility] clopidogreL (PLAVIX) 300 mg tablet 300 mg 2022-04 03:30: 00 04-21 02:50 :00 No 300mg 300 mg, Oral, ONCE, 1 dose, On Wed04/20/23 at 2130, HAO [facility] HEPARIN SODIUM (PORCINE) 1,000 UNIT/ML BOLUS ACS ORDER SET 2022-04 02:45: 00 04-21 02:53 :00 No 60U/kg 3,540 Units (60 Units/kg ?59 kg), IV Push, ONCE, 1 dose, On Wed04/20/23 at 204, HAO [facility] heparin 25,000 Units/250 mL (Premixed Bag) in [...] Rang e, Dosing and Testing: &nbs p;FOR [facility], AND [facility] ONLY &nbs p; - aPTT < 35: [...] INITIAL BOLUS OR INITIAL INFUSION RATE.
[facility] Vital Signs Vital Name Observation Time Observation Value Comments S ource Systolic blood pressure 2023-08-24 13:02:00 150 mm[Hg] [facility] Diastolic blood pressure 2023-08-24 13:02:00 88 mm[Hg] [facility] Heart rate 2023-08-24 13:02:00 79 /min [facility] Body temperature 2023-08-24 13:02:00 36.44 Deya [facility] Respiratory rate 2023-08-24 13:02:00 14 /min [facility] Oxygen saturation in Arterial blood by Pulse oximetry 2023-08-24 13:02:00 98 /min [facility] Body weight 2023-08-24 08:43:00 58.469 kg [facility] BMI 2023-08-24 08:43:00 22.83 kg/m2 [facility] Body height 2023-08-22 04:52:00 160 cm [facility] Systolic blood pressure 2023-08-16 16:53:00 154 mm[Hg] [facility] Diastolic blood pressure 2023-08-16 16:53:00 94 mm[Hg] [facility] Heart rate 2023-08-16 16:53:00 82 /min Un[facility] Body temperature 2023-08-16 16:53:00 36.61 Deya [facility] Respiratory rate 2023-08-16 16:53:00 16 /min [facility] Oxygen saturation in Arterial blood by Pulse oximetry 2023-08-16 16:53:00 99 /min [facility] Body weight 2023-08-16 09:56:00 56.473 kg [facility] BMI 2023-08-16 09:56:00 22.05 kg/m2 [facility] Body height 2023-08-15 04:07:00 160 cm [facility] Systolic blood pressure 2023-04-23 18:11:00 141 mm[Hg] [facility] Diastolic blood pressure 2023-04-23 18:11:00 80 mm[Hg] [facility] Heart rate 2023-04-23 18:11:00 101 /min [facility] Body temperature 2023-04-23 18:11:00 35.89 Deya [facility] Respiratory rate 2023-04-23 18:11:00 18 /min [facility] Oxygen saturation in Arterial blood by Pulse oximetry 2023-04-23 18:11:00 98 /min [facility] Body weight 2023-04-22 09:57:00 57.561 kg [facility] BMI 2023-04-22 09:57:00 22.48 kg/m2 [facility] Body height 2023-04-21 20:00:00 160 cm [facility] Procedures Procedure Date / Time Performed Performing Clinician Source PATIENT AGREEMENTS AND CONTRACTS 2023-11-12 20:14:31 Doctor Unassigned, [facility]ibler [facility] POCT GLUCOSE (AUTOMATED) 2023-08-24 16:13:00 Jami Banda [facility] POCT GLUCOSE (AUTOMATED) 2023-08-24 12:34:00 Jami Banda [facility] BASIC METABOLIC PANEL (NA, K, CL, CO2, GLUCOSE, BUN, CREATININE, CA) 2023-08-24 08:42:00 Jerry Fields [facility] CBC WITH DIFF 2023-08-24 08:42:00 Jerry Fields [facility] POCT GLUCOSE (AUTOMATED) 2023-08-24 05:46:00 Jami Banda [facility] BASIC METABOLIC PANEL (NA, K, CL, CO2, GLUCOSE, BUN, CREATININE, CA) 2023-08-24 01:37:00 Jerry Fields [facility] POCT GLUCOSE (AUTOMATED) 2023-08-24 01:27:00 Jami Banda [facility] POCT GLUCOSE (AUTOMATED) 2023-08-23 21:29:00 Jami Banda [facility] BASIC METABOLIC PANEL (NA, K, CL, CO2, GLUCOSE, BUN, CREATININE, CA) 2023-08-23 17:41:00 Jerry Fields [facility] POCT GLUCOSE (AUTOMATED) 2023-08-23 16:42:00 Jami Banda [facility] POCT GLUCOSE (AUTOMATED) 2023-08-23 12:36:00 Jami Banda [facility] POCT GLUCOSE (AUTOMATED) 2023-08-23 09:09:00 Jami Banda. [facility] MAGNESIUM 2023-08-23 08:23:00 Jerry Fields [facility] BASIC METABOLIC PANEL (NA, K, CL, CO2, GLUCOSE, BUN, CREATININE, CA) 2023-08-23 08:23:00 Jerry Fields [facility] CBC WITH DIFF 2023-08-23 08:23:00 Donnie, Jerry [facility] POCT GLUCOSE (AUTOMATED) 2023-08-23 04:52:00 Jami Banda [facility] POCT GLUCOSE (AUTOMATED) 2023-08-23 00:42:00 Jami Banda [facility] BASIC METABOLIC PANEL (NA, K, CL, CO2, GLUCOSE, BUN, CREATININE, CA) 2023-08-23 00:38:00 Jerry Fields [facility] POCT GLUCOSE (AUTOMATED) 2023-08-22 21:18:00 Jami Banda [facility] URIC ACID 2023-08-22 19:21:00 Alyssa Cain [facility] PROTEIN CREAT RATIO URINE RANDOM 2023-08-22 19:21:00 Alyssa Cain [facility] CORTISOL AM 2023-08-22 19:20:00 Alyssa Cain [facility] BASIC METABOLIC PANEL (NA, K, CL, CO2, GLUCOSE, BUN, CREATININE, CA) 2023-08-22 13:21:00 Lyubov Banda [facility] LACTIC ACID WHOLE BLOOD 2023-08-22 09:16:00 Loreta Banda mmad [facility] MAGNESIUM 2023-08-22 08:30:00 Lyubov Banda [facility] TROPONIN I 2023-08-22 08:30:00 Lyubov Banda [facility] CBC WITH DIFF 2023-08-22 08:30:00 [facility] 2023-08-22 08:30:00 Lyubov Banda [facility] PHOSPHORUS 2023-08-22 04:01:00 Lyubov Banda [facility] BASIC METABOLIC PANEL (NA, K, CL, CO2, GLUCOSE, BUN, CREATININE, CA) 2023-08-22 04:01:00 Cosme Cardona [facility] URINALYSIS 2023-08-22 01:52:00 Cardona, [facility] CT ABDOMEN PELVIS WO CONTRAST 2023-08-22 01:26:17 Singer [facility] CREATINE KINASE 2023-08-22 01:24:00 Lyubov Banda [facility] LIPASE 2023-08-22 01:24:00 Singer [facility] COMP. METABOLIC PANEL ([id number]) 2023-08-22 01:24:00 Singer [facility] CBC WITH DIFF 2023-08-22 01:24:00 Singer [facility] POCT GLUCOSE (AUTOMATED) 2023-08-16 21:51:00 Yue Fields [facility] POCT GLUCOSE (AUTOMATED) 2023-08-16 16:54:00 Yue Fields [facility] POCT GLUCOSE (AUTOMATED) 2023-08-16 12:45:00 Yue Fields [facility] POCT GLUCOSE (AUTOMATED) 2023-08-16 02:06:00 Yue Fields [facility] POCT GLUCOSE (AUTOMATED) 2023-08-15 21:29:00 Yue Fields [facility] POCT GLUCOSE (AUTOMATED) 2023-08-15 16:39:00 Yue Fields [facility] POCT GLUCOSE (AUTOMATED) 2023-08-15 13:08:00 Yue Fields [facility] TROPONIN I 2023-08-15 10:41:00 [facility] BASIC METABOLIC PANEL (NA, K, CL, CO2, GLUCOSE, BUN, CREATININE, CA) 2023-08-15 10:41:00 Shanice [facility] CBC WITH DIFF 2023-08-15 10:41:00 Shanice [facility] PROSTATIC SPECIFIC ANTIGEN 2023-08-15 05:32:00 Shanice [facility] TROPONIN I 2023-08-15 05:32:00 Shanice [facility] POCT GLUCOSE (AUTOMATED) 2023-08-15 04:03:00 Yue Fields [facility] URINALYSIS 2023 22:15:00 Rosmery [facility] XR CHEST 1 VW 2023 21:46:[address] [facility] CT ABDOMEN PELVIS W CONTRAST 2023 21:34:55 Rosmery [facility] CT TRAUMA HEAD WO CONTRAST 2023 21:33:20 Rosmery [facility] HB ECG ROUTINE & RHYTHM STRIP 2023 21:10:12 Rosmery [facility] PHOSPHORUS 2023 20:47:00 Rosmery [facility] CREATINE KINASE 2023 20:47:00 [facility] 20:47:00 Rosmery [facility] MAGNESIUM 2023 20:47:00 Rosmery [facility] BETA HYDROXY-BUTYRATE 2023 20:47:00 Farida Reynaga [facility] TROPONIN I 2023 20:47:00 Rosmery [facility] COMP. METABOLIC PANEL ([id number]) 2023 20:47:00 Rosmery [facility] CBC WITH DIFF 2023 20:47:00 Rosmery [facility] GLYCOSYLATED HEMOGLOBIN (A1C) 2023 20:47:00 Jerry Fields [facility] N-TERMINAL PRO-BNP 2023 20:47:00 Michael Reynaga [facility] ACUTE CARE VENOUS BLOOD GAS 2023 20:46:00 Rosmery [facility] LACTIC ACID WHOLE BLOOD 2023 20:46:00 Kian Reynaga [facility] POCT GLUCOSE(AGE >30DAYS) 2023 20:26:00 Rosmery [facility] POCT GLUCOSE (AUTOMATED) 2023 20:23:00 Dalmedo, [facility] POCT GLUCOSE (AUTOMATED) 2023-04-23 18:09:00 Brien Banda [facility] POCT GLUCOSE (AUTOMATED) 2023-04-23 15:32:00 Brien Banda [facility] MAGNESIUM 2023-04-23 09:09:00 Chet Echavarria [facility] BASIC METABOLIC PANEL (NA, K, CL, CO2, GLUCOSE, BUN, CREATININE, CA) 2023-04-23 09:09:00 Chet Echavarria [facility] POCT GLUCOSE (AUTOMATED) 2023-04-23 02:56[facility]00 [facility] 2023-04-23 00:32:00 Solo [facility] POCT GLUCOSE (AUTOMATED) 2023-04-22 22:43:00 Solo [facility] POCT GLUCOSE (AUTOMATED) 2023-04-22 20:36:00 Solo [facility] POCT GLUCOSE (AUTOMATED) 2023-04-22 17:44:00 Solo [facility] POCT GLUCOSE (AUTOMATED) 2023-04-22 13:41:00 Solo [facility] MAGNESIUM 2023-04-22 10:37:00 Daja Aaliyah [facility] BASIC METABOLIC PANEL (NA, K, CL, CO2, GLUCOSE, BUN, CREATININE, CA) 2023-04-22 10:37:00 Aaliyah Farnsworth [facility] CBC WITH DIFF 2023-04-22 10:37:00 Daja Aaliyah [facility] POCT GLUCOSE (AUTOMATED) 2023-04-22 03:32:00 Solo [facility] POCT GLUCOSE (AUTOMATED) 2023-04-22 01:34:00 Solo [facility] COMPLETE ECHOCARDIOGRAM DOBUTAMINE STRESS TEST W CONTRAST 2023-04-21 21:15:00 [facility] 2023-04-21 17:36:00 Banda, [facility] ACTIVATED PARTIAL THRMPLAS JERMAINE 2023-04-21 16:47:00 Sergio Aponte [facility] TRANSTHORACIC ECHO (TTE) COMPLETE W/ CONTRAST 2023-04-21 15:26:00 Kylie Fuchs Noel [facility] TROPONIN I 2023-04-21 12:39:00 Víctor Fuchs aminyue [facility] POCT GLUCOSE (AUTOMATED) 2023-04-21 09:39:00 Brien Banda [facility] MAGNESIUM 2023-04-21 09:10:00 Víctor Fuchs [facility] BASIC METABOLIC PANEL (NA, K, CL, CO2, GLUCOSE, BUN, CREATININE, CA) 2023-04-21 09:10:00 Tavia Fuchsmad [facility] LIPID PANEL ([id number])(TOTAL CHOLESTEROL, TRIGLYCERIDES, HDL) 2023-04-21 09:10:00 Tavia Fuchsmad [facility] CBC WITH DIFF 2023-04-21 09:10:00 Víctor Fuchs [facility] ACTIVATED PARTIAL THRMPLAS JERMAINE 2023-04-21 09:10:00 Sergio Aponte [facility] XR CHEST 1 VW 2023-04-21 06:53:47 Víctor Fuchs aminyue [facility] TROPONIN I 2023-04-21 06:32:00 Víctor Fuchs [facility] IRON PANEL 2023-04-21 06:32:00 Víctor Fuchs [facility] N-TERMINAL PRO-BNP 2023-04-21 06:32:00 Kylie Fuchs [facility] CRITICAL CARE 2023-04-21 02:54:15 Sergio Aponte [facility] PROTHROMBIN TIME / INR 2023-04-21 02:44:00 Enrique Aponte [facility] ACTIVATED PARTIAL THRMPLAS JERMAINE 2023-04-21 02:44:00 Sergio Aponte [facility] URINALYSIS 2023-04-21 02:33:00 [facility] PROTEIN CREAT RATIO URINE RANDOM 2023-04-21 02:33:00 Kylie Fuchs [facility] URINE DRUG (IMMUNOASSAY) - COMPREHENSIVE DRUG SCREEN W/O REFLEX 2023-04-21 02:33:00 Sergio Aponte [facility] PHOSPHORUS 2023-04-21 01:55:00 Víctor Fuchs Noel [facility] FERRITIN SERUM 2023-04-21 01:55:00 Víctor Fuchs [facility] TROPONIN I 2023-04-21 01:55:00 [facility] THYROID STIMULATING HORMONE 2023-04-21 01:55:00 Kylie Fuchs Noel [facility] COMP. METABOLIC PANEL (64012) 2023-04-21 01:55:00 Sergio Aponte [facility] ETHANOL 2023-04-21 01:55:00 Sergio Aponte [facility] CBC WITH DIFF 2023-04-21 01:55:00 Sergio Aponte [facility] GLYCOSYLATED HEMOGLOBIN (A1C) 2023-04-21 01:55:00 Kylie Fuchs Noel [facility] POCT GLUCOSE (AUTOMATED) 2023-04-21 01:54:00 Yue Aponte [facility] EKG-12 LEAD 2023-04-21 01:51:41 Bret Banda [facility] Encounters Start Date/Time End Date/Time Encounter Type Admission Type Attending Clinicians Care Facility Care Department Encounter ID Source 2023-11-12 00:00:00 2024-06-10 07:16:20 Orders Only Doctor Unassigned, [facility] Doctor Unassigned, [facility] [id number] [id number] [id number] [id number] [facility] 2023-08-21 19:47:00 2023-08-24 16:32:00 Hospital Encounter Cosme Cardona Mohammad A. [facility] [id number] 350.1.13.10 4.2.7.2.686 [id number] [facility] 2023-08-20 00:00:00 2023-08-20 00:00:00 Patient Outreach Rosalie Irizarry LYNN BAEZ 1.2840.114 350.1.13.10 4.2.7.2.686 [id number] [facility] 2023-08-17 00:00:00 2023-08-17 00:00:00 Telephone Ricky Rivera [facility] 1.0.114 350.1.13.10 4.2.7.2.686 [id number] [facility] 2023 14:42:00 2023-08-16 18:40:00 Hospital Encounter Umang Reynaga David Oville, Jelani [facility] 1.0.114 350.1.13.10 4.2.7.2.686 [id number] [facility] 2023-04-27 00:00:00 2023-04-27 00:00:00 Transition of Care López Jeannette LYNN BAEZ 1.840.114 350.1.13.10 4.2.7.2.686 [id number] [facility] 2023-04-20 19:48:00 2023-04-23 19:54:00 Inpatient PARVEZ NUNEZ [facility] CAT[facility] [id number] [facility] 2023-04-20 19:48:00 2023-04-23 19:54:00 Hospital Encounter Sergio Aponte Rizwan Dacso, Matthew M JENNIE [facility] 1.840.114 350.1.13.10 4.2.7.2.686 [id number] [facility] Results Test Description Test Time Test Comments Results Resul t Comments Source PATIENT AGREEMENTS AND CONTRACTS 2023-11-12 20:14:31 Ordered by an unspecified provider. [facility]23-08-24 12:35:27* Test Item Value Reference Range Interpretation Comme nts POCT GLU (test code = 3930940216) 204 mg/dL 70-110 H Lab Interpretation (test cod e = 42304-7) Abnormal [facility] Metabolic Panel (NA, K, CL, CO2, GLUCOSE, BUN, CREATININE, CA)2023-08-24 09:45:39* Test Item Value Reference Range Interpretation Comme nts NA (test code = 3644087108) 133 mmol/L 135-145 L K (test code = 8356375492) 3.7 mmol/L 3.5-5.0 CL (test code = 9527954215) 98 mmol/L 98-108 CO2 TOTAL (test code = 1229587288) 27 mmol/L 23-31 AGAP (test code = 3082663152) 8 2-16 BUN (test code = 7233452846) 13 mg/dL 7-23 GLUCOSE (test code = 8006542451) 188 mg/dL 70-110 H CREATININE (test code = 2160-0) 0.63 mg/dL 0.60-1.25 CALCIUM (test code = 0022034028) 9.4 mg/dL 8.6-10.6 eGFR (test code = 36273-3) 111.6 mL/min/1.73m2 CKD-EPI eGFR (2020). Assuming creatinine has been stable day-to-day for at least three months, the eGFR indicates Category G1 (>= 90 mL/min/1.73 m2) Lab Interpretation (test code = 21563-6) Abnormal [facility] with [id number] 09:21:26* Test Item Value Reference Range Interpretation [...] g/dL 31.2-35.0 H RDW-SD (test code = 85833-1) 36.9 fL 38.5-51.6 L RDW-CV (test code = 788-0) 11.6 % 12.1-15.4 L PLT (test code = 777-3) 407 150-328 H MPV (test code = 67029-5) 9.5 fL 9.8-13.0 L NRBC/100 WBC (test code = 8302645067) 0.0 0.0-10.0 NRBC x10^3 (test code = 4638187501) See_Comment [Automated messa ge] The system which generated this result transmitted reference range: 10*3/?L. The reference range was not used to interpret this result as normal/abnormal. GRAN MAT (NEUT) % (test code = 770-8) 63.1 % IMM GRAN % (test code = 1222265304) 0.30 % LYMPH % (test code = 736-9) 21.1 % MONO % (test code = 5905-5) 8.3 % EOS % (test code = 713-8) 6.5 % BASO % (test code = 706-2) 0.7 % GRAN MAT x10^3(ANC) (test code = 3112675536) 3.71 10*3/uL 1.99-6.95 IMM GRAN x10^3 (test code = 6774395605) 0.00-0.06 LYMPH x10^3 (test code = 731-0) 1.24 10*3/uL 1.09-3.23 MONO x10^3 (test code = 742-7) 0.49 10*3/uL 0.36-1.02 EOS x10^3 (test code = 711-2) 0.38 10*3/uL 0.06-0.53 BASO x10^3 (test code = 704-7) 0.04 10*3/uL 0.01-0.09 Lab Interpretation (test code = 12141-3) Abnormal [facility] GLUCOSE (AUTOMATED)2023-08-24 05:47:46* Test Item Value Reference Range Interpretation Comme [facility] POCT GLU (test code = 9210606049) 126 mg/dL 70-110 H Lab Interpretation (test cod e = 43101-4) Abnormal [facility] Metabolic Panel (NA, K, CL, CO2, GLUCOSE, BUN, CREATININE, CA)2023-08-24 02:27:27* Test Item Value Reference Range Interpretation Comme nts NA (test code = 1238752600) 129 mmol/L 135-145 L K (test code = 6928819290) 3.9 mmol/L 3.5-5.0 CL (test code = 8462735217) 96 mmol/L 98-108 L CO2 TOTAL (test code = 6622445871) 29 mmol/L 23-31 AGAP (test code = 5505150776) 4 2-16 BUN (test code = 8344227912) 14 mg/dL 7-23 GLUCOSE (test code = 8514557126) 185 mg/dL 70-110 H CREATININE (test code = 2160-0) 0.56 mg/dL 0.60-1.25 L CALCIUM (test code = 1336038140) 9.2 mg/dL 8.6-10.6 eGFR (test code = 79653-7) 115.7 mL/min/1.73m2 CKD-EPI eGFR (2020). Assuming creatinine has been stable day-to-day for at least three months, the eGFR indicates Category G1 (>= 90 mL/min/1.73 m2) Lab Interpretation (test code = 13364-7) Abnormal [facility] GLUCOSE (AUTOMATED)2023-08-24 01:28:28* Test Item Value Reference Range Interpretation Comme [facility] POCT GLU (test code = 2261557166) 210 mg/dL 70-110 H Lab Interpretation (test cod e = 73160-7) Abnormal [facility] GLUCOSE (AUTOMATED)2023-08-23 21:30:04* Test Item Value Reference Range Interpretation Comme nts POCT GLU (test code = 1210599025) 149 mg/dL 70-110 H Lab Interpretation (test cod e = 65055-6) Abnormal [facility] GLUCOSE (AUTOMATED)2023-08-23 16:45:20* Test Item Value Reference Range Interpretation Comme nts POCT GLU (test code = 6380136166) 147 mg/dL 70-110 H Lab Interpretation (test cod e = 82477-4) Abnormal [facility] GLUCOSE (AUTOMATED)2023-08-23 12:36:56* Test Item Value Reference Range Interpretation Comme nts POCT GLU (test code = 3721560204) 131 mg/dL 70-110 H Lab Interpretation (test cod e = 53159-1) Abnormal [facility] GLUCOSE (AUTOMATED)2023-08-23 09:17:23* Test Item Value Reference Range Interpretation Comme nts POCT GLU (test code = 9704480767) 154 mg/dL 70-110 H Lab Interpretation (test cod e = 90069-2) Abnormal [facility] GLUCOSE (AUTOMATED)2023-08-23 05:03:01* Test Item Value Reference Range Interpretation Comme nts POCT GLU (test code = 8077911862) 183 mg/dL 70-110 H Lab Interpretation (test cod e = 15659-1) Abnormal [facility] Metabolic Panel (NA, K, CL, CO2, GLUCOSE, BUN, CREATININE, CA)2023-08-23 01:49:58* Test Item Value Reference Range Interpretation Comme nts NA (test code = 9402711260) 132 mmol/L 135-145 L K (test code = 3341757426) 4.1 mmol/L 3.5-5.0 CL (test code = 2880957271) 101 mmol/L 98-108 CO2 TOTAL (test code = 9239064782) 28 mmol/L 23-31 AGAP (test code = 4879862347) 3 2-16 BUN (test code = 2276625296) 17 mg/dL 7-23 GLUCOSE (test code = 5755662605) 149 mg/dL 70-110 H CREATININE (test code = 2160-0) 0.97 mg/dL 0.60-1.25 CALCIUM (test code = 9792617448) 8.4 mg/dL 8.6-10.6 L eGFR (test code = 59958-7) 91.6 mL/min/1.73m2 CKD-EPI eGFR (2020). Assuming creatinine has been stable day-to-day for at least three months, the eGFR indicates Category G1 (>= 90 mL/min/1.73 m2) Lab Interpretation (test code = 56429-0) Abnormal [facility] GLUCOSE (AUTOMATED)2023-08-23 00:43:06* Test Item Value Reference Range Interpretation Comme [facility] POCT GLU (test code = 8698850662) 126 mg/dL 70-110 H Lab Interpretation (test cod e = 53937-1) Abnormal [facility]ort[facility] [id number] 22:59:03* Test Item Value Reference Range Interpretation Comme [facility] IBRAHIMA AM (test code = 6057707268) 24.7 ug/dL 4.5-23.0 H GINA (test code = GINA) Biotin has been reported to cause a positive bias, interpret results relative to patient's use of biotin. Lab Interpretation (test code = 84883-2) Abnormal [facility] GLUCOSE (AUTOMATED)2023-08-22 21:29:10* Test Item Value Reference Range Interpretation Comme [facility] POCT GLU (test code = 7415359500) 341 mg/dL 70-110 H Lab Interpretation (test cod e = 88690-8) Abnormal [facility] Hospital[facility]ric [id number] 19:53:59* Test Item Value Reference Range Interpretation Comme [facility] URIC ACID (test code = 4570115214) 6.4 mg/dL 3.6-8.0 Lab Interpretation (test cod e = 40664-7) Normal [facility] Met[facility] (NA, K, CL, CO2, GLUCOSE, BUN, CREATININE, CA)2023-08-22 14:43:15* Test Item Value Reference Range Interpretation Comme nts NA (test code = 7650014401) 138 mmol/L 135-145 K (test code = 6562032222) 4.6 mmol/L 3.5-5.0 CL (test code = 6226807257) 102 mmol/L 98-108 CO2 TOTAL (test code = 0522229829) 28 mmol/L 23-31 AGAP (test code = 8736472856) 8 2-16 BUN (test code = 9245638970) 34 mg/dL 7-23 H GLUCOSE (test code = 8740704114) 224 mg/dL 70-110 H CREATININE (test code = 2160-0) 1.89 mg/dL 0.60-1.25 H CALCIUM (test code = 8678481931) 9.4 mg/dL 8.6-10.6 eGFR (test code = 89027-2) 41.1 mL/min/1.73m2 CKD-EPI eGFR (2020). Assuming creatinine has been stable day-to-day for at least three months, the eGFR indicates Category G3b (30 - 44 mL/min/1.73 m2) Lab Interpretation (test code = 99227-2) Abnormal [facility] Hospital[facility]ine [id number] 14:42:45* Test Item Value Reference Range Interpretation Comme nts CK (test code = 5280852584) 224 U/L 33-194 H Lab Interpretation (test cod e = 52795-5) Abnormal [facility] HospitalPhosphorus [id number] 12:10:01* Test Item Value Reference Range Interpretation Comme nts PHOSPHORUS (test code = 3744979393) 5.8 mg/dL 2.5-5.0 H Lab Interpretation (test cod e = 85811-0) Abnormal [facility] (NA, K, CL, CO2, GLUCOSE, BUN, CREATININE, CA)2023-08-22 04:41:19* Test Item Value Reference Range Interpretation Comme nts NA (test code = 5585451700) 124 mmol/L 135-145 L K (test code = 3124897454) 4.7 mmol/L 3.5-5.0 CL (test code = 7545924002) 93 mmol/L 98-108 L CO2 TOTAL (test code = 3808582231) 18 mmol/L 23-31 L AGAP (test code = 2099116141) 13 2-16 BUN (test code = 3026037281) 68 mg/dL 7-23 H GLUCOSE (test code = 1811189084) 116 mg/dL 70-110 H CREATININE (test code = 2160-0) 6.60 mg/dL 0.60-1.25 H CALCIUM (test code = 7602028642) 9.0 mg/dL 8.6-10.6 eGFR (test code = 48699-4) 9.2 mL/min/1.73m2 CKD-EPI eGFR (2020). Assuming creatinine has been stable day-to-day for at least three months, the eGFR indicates Category G5 (<= 14mL/min/1.73 m2) Lab Interpretation (test code = 29809-7) Abnormal [facility] P[facility] WO [id number] 02:22:05Exam: CT Abdomen and Pelvis without Contrast, [...] Subacute/chronic left-sided rib fractures.Soft tissues: Unremarkable.[facility] Metabolic Panel (85000) 2023-08-22 02:21:33* Test Item Value Reference Range Interpretation Comme nts NA (test code = 6971114949) 120 mmol/L 135-145 L K (test code = 3964178991) 4.8 mmol/L 3.5-5.0 CL (test code = 8580018379) 85 mmol/L 98-108 L CO2 TOTAL (test code = 4892755179) 21 mmol/L 23-31 L AGAP (test code = 1751861069) 14 2-16 BUN (test code = 8802140681) 70 mg/dL 7-23 H GLUCOSE (test code = 3256952902) 97 mg/dL 70-110 CREATININE (test code = 2160-0) 8.39 mg/dL 0.60-1.25 H TOTAL BILI (test code = 8237554399) 0.7 mg/dL 0.1-1.1 CALCIUM (test code = 0391450243) 8.8 mg/dL 8.6-10.6 T PROTEIN (test code = 4370716697) 7.2 g/dL 6.3-8.2 ALBUMIN (test code = 6027014231) 4.1 g/dL 3.5-5.0 ALK PHOS (test code = 1172149308) 95 U/L 34-122 ALTv (test code = 1742-6) 12 U/L 5-50 AST(SGOT) (test code = 6545069557) 24 U/L 13-40 eGFR (test code = 65618-2) 6.9 mL/min/1.73m2 CKD-EPI eGFR (2020). Assuming creatinine has been stable day-to-day for at least three months, the eGFR indicates Category G5 (<= 14mL/min/1.73 m2) Lab Interpretation (test code = 15042-4) [facility]normal [facility] HospitalLipase2024-04-28 02:15:32* Test Item Value Reference Range Interpretation Comme nts LIPASE (test code = 4666150741) 758 U/L 0-220 H Lab Interpretation (test cod e = 21503-3) Abnormal [facility] HospitalCbc with Mmxd6702-27-29 01:58:31* Test Item Value Reference Range Interpretation [...] g/dL 31.2-35.0 H RDW-SD (test code = 56746-1) 36.0 fL 38.5-51.6 L RDW-CV (test code = 788-0) 11.5 % 12.1-15.4 L PLT (test code = 777-3) 312 150-328 MPV (test code = 39951-9) 9.4 fL 9.8-13.0 L NRBC/100 WBC (test code = 8781629473) 0.0 0.0-10.0 NRBC x10^3 (test code = 6326845322) See_Comment [Automated message] The system which generated this result transmitted reference range: 10*3/?L. The reference range was not used to interpret this result as normal/abnormal. GRAN MAT (NEUT) % (test code = 770-8) 82.7 % IMM GRAN % (test code = 6535302761) 0.50 % LYMPH % (test code = 736-9) 6.7 % MONO % (test code = 5905-5) 9.8 % EOS % (test code = 713-8) 0.2 % BASO % (test code = 706-2) 0.1 % GRAN MAT x10^3(ANC) (test code = 3974952491) 12.19 10*3/uL 1.99-6.95 H IMM GRAN x10^3 (test code = 5148873776) 0.08 10*3/uL 0.00-0.06 H LYMPH x10^3 (test code = 731-0) 0.99 10*3/uL 1.09-3.23 L MONO x10^3 (test code = 742-7) 1.44 10*3/uL 0.36-1.02 H EOS x10^3 (test code = 711-2) 0.03 10*3/uL 0.06-0.53 L BASO x10^3 (test code = 704-7) 0.01-0.09 Lab Interpretation (test code = 64420-8) Abnormal [facility] GLUCOSE (AUTOMATED)2023-08-16 22:02:57* Test Item Value Reference Range Interpretation Comme nts POCT GLU (test code = 9517302865) 112 mg/dL 70-110 H Lab Interpretation (test cod e = 46412-8) [facility] 16:59:58* Test Item Value Reference Range Interpretation Comme nts POCT GLU (test code = 3000736092) 127 mg/dL 70-110 H Lab Interpretation (test cod e = 02150-1) [facility]16 12:48:23* Test Item Value Reference Range Interpretation Comme nts POCT GLU (test code = 9046066557) 175 mg/dL 70-110 H Lab Interpretation (test cod e = 76074-5) Abnormal [facility] GLUCOSE (AUTOMATED)2023-08-16 02:07:02* Test Item Value Reference Range Interpretation Comme nts POCT GLU (test code = 7421986890) 195 mg/dL 70-110 H Notified Provide r Lab Interpretation (test code = 98061-9) Abnormal [facility] GLUCOSE (AUTOMATED)2023-08-15 21:36:15* Test Item Value Reference Range Interpretation Comme nts POCT GLU (test code = 2915948521) 284 mg/dL 70-110 H Lab Interpretation (test cod e = 49827-1) Abnormal [facility] GLUCOSE (AUTOMATED)2023-08-15 16:56:02* Test Item Value Reference Range Interpretation Comme nts POCT GLU (test code = 2539632450) 74 mg/dL 70-110 Lab Interpretation (test cod e = 51902-2) [facility]2023-08-15 13:12:34* Test Item Value Reference Range Interpretation Comme nts POCT GLU (test code = 4745909322) 258 mg/dL 70-110 H Lab Interpretation (test cod e = 17253-3) [facility]2023-08-15 04:04:43* Test Item Value Reference Range Interpretation Comme nts POCT GLU (test code = 1902844752) 120 mg/dL 70-110 H Lab Interpretation (test cod e = 20183-3) Abnormal [facility] HospitalGlycosylated Hemoglobin (A1C)2023-08-15 01:17:32* Test Item Value Reference Range Interpretation Comme nts HGB A1C (test code = 4548-4) 8.9 % 4.0-5.7 H GINA (test code = GINA) Reference RangesNormal: <5.7%Prediabetes: 5.7 - 6.4%Diabetes: > 6.5% Lab Interpretation (test code = 54565-5) Abnormal [facility] HospitalBeta Yyjfger-Owrzqwkb9916-31-21 01:00:45* Test Item Value Reference Range Interpretation Comme nts BOH (test code = 5218902242) 0.5 mmol/L GINA (test code = GINA) Normal Ranges: ? ? Nonfasting ? Less than 0.1 mmol/L ? ? Overnight Fast ? ? ? Less than 0.4 mmol/L ? ? Fasting (1-2 weeks) ?6-8 mmol/L Test developed and characteristics determined by [facility] Laboratory Services. [facility] HospitalCreatine Jqvgxc6306-92-27 23:07:16* Test Item Value Reference Range Interpretation Comme nts CK (test code = 2730648236) 148 U/L 33-194 Lab Interpretation (test cod e = 52916-8) Normal [facility] HospitalTROPONIN [id number] 22:18:16* Test Item Value Reference Range Interpretation Comme nts TROPONIN I (test code = 7573268586) 0.081 ng/mL <=0.034 H GINA (test code [...] of biotin. Lab Interpretation (test code = 34210-1) Abnormal [facility] HospitalN-TERMINAL [id number]-[id number] 22:15:55* Test Item Value Reference Range Interpretation Comme nts NT-proBNP (test code = 04712-2) 999 pg/mL <=125 H GINA (test code = GINA) Positive: Heart Failure Likely Lab Interpretation (test code = 99856-9) Abnormal [facility] HospitalMagnesium2024-04-20 22:07:17* Test Item Value Reference Range Interpretation Comme nts MAGNESIUM (test code = 0011090720) 1.8 mg/dL 1.7-2.4 Lab Interpretation (test cod e = 38741-2) Normal [facility] HospitalCOMP. METABOLIC PANEL (92375)2023 22:06:57* Test Item Value Reference Range Interpretation Comme nts NA (test code = 9594322444) 130 mmol/L 135-145 L K (test code = 6249530476) 3.4 mmol/L 3.5-5.0 L CL (test code = 5031112571) 93 mmol/L 98-108 L CO2 TOTAL (test code = 2145854353) 26 mmol/L 23-31 AGAP (test code = 5221125321) 11 2-16 BUN (test code = 6926267268) 39 mg/dL 7-23 H GLUCOSE (test code = 9604448275) 142 mg/dL 70-110 H CREATININE (test code = 2160-0) 2.40 mg/dL 0.60-1.25 H TOTAL BILI (test code = 6922532558) 1.2 mg/dL 0.1-1.1 H CALCIUM (test code = 2536692289) 9.1 mg/dL 8.6-10.6 T PROTEIN (test code = 1478853435) 7.7 g/dL 6.3-8.2 ALBUMIN (test code = 8839155643) 4.2 g/dL 3.5-5.0 ALK PHOS (test code = 6688521270) 102 U/L 34-122 ALTv (test code = 1742-6) 16 U/L 5-50 AST(SGOT) (test code = 2360059450) 26 U/L 13-40 eGFR (test code = 45835-7) 30.9 mL/min/1.73m2 CKD-EPI eGFR (2020). Assuming creatinine has been stable day-to-day for at least three months, the eGFR indicates Category G3b (30 - 44 mL/min/1.73 m2) Lab Interpretation (test code = 19013-8) Abnormal [facility] HospitalPhosphorus2024-04-20 22:06:37* Test Item Value Reference Range Interpretation Comme nts PHOSPHORUS (test code = 2928085983) 4.9 mg/dL 2.5-5.0 Lab Interpretation (test cod e = 66816-8) Normal [facility] HospitalLIPASE2024-04-20 22:06:17* Test Item Value Reference Range Interpretation Comme nts LIPASE (test code = 0221284580) 204 U/L 0-220 Lab Interpretation (test cod e = 86265-1) Normal [facility] HospitalCBC WITH [id number] 21:54:56* Test Item Value Reference Range Interpretation [...] g/dL 31.2-35.0 H RDW-SD (test code = 80601-8) 38.1 fL 38.5-51.6 L RDW-CV (test code = 788-0) 11.8 % 12.1-15.4 L PLT (test code = 777-3) 235 150-328 MPV (test code = 10425-5) 11.1 fL 9.8-13.0 NRBC/100 WBC (test code = 9097603244) 0.0 0.0-10.0 NRBC x10^3 (test code = 4599136348) See_Comment [Automated message] The system which generated this result transmitted reference range: 10*3/?L. The reference range was not used to interpret this result as normal/abnormal. GRAN MAT (NEUT) % (test code = 770-8) 80.3 % IMM GRAN % (test code = 4989491627) 0.60 % LYMPH % (test code = 736-9) 8.7 % MONO % (test code = 5905-5) 10.0 % EOS % (test code = 713-8) 0.2 % BASO % (test code = 706-2) 0.2 % GRAN MAT x10^3(ANC) (test code = 4664623176) 10.18 10*3/uL 1.99-6.95 H IMM GRAN x10^3 (test code = 4314446755) 0.07 10*3/uL 0.00-0.06 H LYMPH x10^3 (test code = 731-0) 1.11 10*3/uL 1.09-3.23 MONO x10^3 (test code = 742-7) 1.27 10*3/uL 0.36-1.02 H EOS x10^3 (test code = 711-2) 0.03 10*3/uL 0.06-0.53 L BASO x10^3 (test code = 704-7) 0.03 10*3/uL 0.01-0.09 Lab Interpretation (test code = 06033-0) Abnormal [facility] HospitalXR CHEST 1 [id number] 21:49:58EXAM: XR CHEST 1 2023 4:38 PM HISTORY: 58 years-old Male with r/o infilrate . TECHNIQUE: Portable AP view of the chest. COMPARISON: 04/21/2023 FINDINGS: Lines and tubes: None. Cardiomediastinal: The cardiomediastinal silhouette is unremarkable. Lungs and pleura: The lungs are clear. No focal consolidation,pneumothorax, or pleural effusion is seen. Included osseous structures show no acuteabnormality.[facility] HospitalCT ABDOMEN PELVIS W [id number] 21:45:03EXAM: CT ABDOMEN AND PELVIS WITH CONTRAST [...] the spine, sacroiliac jointsand hips ispresent.[facility] HospitalCT TRAUMA HEAD WO [id number] 21:38:37FULL RESULT: Examination: CT TRAUMA HEAD WO CONTRAST on 2023 4:16 PM Clinical Indication: Headache, hypertensive Comparison: None Technique: Noncontrast imaging was obtained from base to vertex.Findings: The sulci and ventricles were unremarkable. There may be subtlewhite matter microvascularischemic changes, notably in the anteriorperiventricular region, but there is no evidence for hemorrhage or otherclearly acute intracranial process.[facility] HospitalLactic Acid Whole [id number] 21:30:25* Test Item Value Reference Range Interpretation Comme nts LACTIC ACID (test code = 5732740775) 1.58 mmol/L 0.50-2.20 Lab Interpretation (test cod e = 89805-5) Normal [facility] HospitalAcute Care Venous Blood [id number] 21:30:25 * Test Item Value Reference Range Interpretation Comme nts PH (test code = 4264640146) 7.34 7.32-7.42 PCO2 NOY (test code = 8789599004) 45 41-51 PO2 NOY (test code = 9711815377) 24 25-40 L HCO3 NOY (test code = 9547307025) 24 24-28 AC VBE(BEAKER) (test code = 4461779489) -1.9 mEq/L Lab Interpretation (test cod e = 21860-8) Abnormal [facility] GLUCOSE (AUTOMATED)2023 20:26:17* Test Item Value Reference Range Interpretation Comme nts POCT GLU (test code = 0319875901) 165 mg/dL 70-110 H Lab Interpretation (test cod e = 38130-1) Abnormal [facility] GLUCOSE(AGE >30DAYS)2023 20:26:00* Test Item Value Reference Range Interpretation Comme nts POCT Glu (age>30days) (test code = 3342) 165 mg/dL 70-110 A Lab Interpretation (test cod e = 68086-6) Abnormal [facility] GLUCOSE (AUTOMATED)2023-04-23 18:15:28* Test Item Value Reference Range Interpretation Comme nts POCT GLU (test code = 1999070969) 218 mg/dL 70-110 H Lab Interpretation (test cod e = 03858-3) [facility]2023-04-23 15:35:23* Test Item Value Reference Range Interpretation Comme nts POCT GLU (test code = 1602370329) 186 mg/dL 70-110 H Lab Interpretation (test cod e = 09109-8) Abnormal [facility] GLUCOSE (AUTOMATED)2023-04-23 02:57:57* Test Item Value Reference Range Interpretation Comme nts POCT GLU (test code = 1356636419) 82 mg/dL 70-110 Lab Interpretation (test cod e = 58302-5) Normal [facility] GLUCOSE (AUTOMATED)2023-04-23 00:33:51* Test Item Value Reference Range Interpretation Comme nts POCT GLU (test code = 3962093229) 181 mg/dL 70-110 H Lab Interpretation (test cod e = 11217-7) Abnormal [facility] GLUCOSE (AUTOMATED)2023-04-22 22:54:22* Test Item Value Reference Range Interpretation Comme nts POCT GLU (test code = 4173645090) 127 mg/dL 70-110 H Lab Interpretation (test cod e = 38963-2) Abnormal [facility] GLUCOSE (AUTOMATED)2023-04-22 20:37:54* Test Item Value Reference Range Interpretation Comme nts POCT GLU (test code = 7276069590) 230 mg/dL 70-110 H Lab Interpretation (test cod e = 16619-6) Abnormal [facility] GLUCOSE (AUTOMATED)2023-04-22 17:46:23* Test Item Value Reference Range Interpretation Comme nts POCT GLU (test code = 4403489404) 144 mg/dL 70-110 H Lab Interpretation (test cod e = 31155-0) Abnormal [facility] GLUCOSE (AUTOMATED)2023-04-22 13:42:26* Test Item Value Reference Range Interpretation Comme nts POCT GLU (test code = 6990882491) 229 mg/dL 70-110 H Lab Interpretation (test cod e = 65573-6) Abnormal [facility] GLUCOSE (AUTOMATED)2023-04-22 03:33:49* Test Item Value Reference Range Interpretation Comme nts POCT GLU (test code = 7326014542) 222 mg/dL 70-110 H Lab Interpretation (test cod e = 24040-9) Abnormal [facility] GLUCOSE (AUTOMATED)2023-04-22 01:36:03* Test Item Value Reference Range Interpretation Comme nts POCT GLU (test code = 9968396923) 282 mg/dL 70-110 H Lab Interpretation (test cod e = 43686-4) Abnormal [facility] HospitalEchocardiogram dobutamine stress test 2023-04-21 22:26:30* Test Item Value Reference Range Interpretation Comme nts Height (test code = 9215638431) 63 in Weight (test code = 7831776705) 130 lbs Systolic BP (test code = 9620103411) 122 mmHg Diastolic BP (test code = 4128681967) 81 mmHg Heart Rate (test code = 9171521358) 105 bpm BSA (test code = 3576796931) 1.[address] Depresion (mm) (test code = 3511401571) [address] Depression (mm) (test code = 9448623326) 0 mm Radiology Study observation (narrative) (test code = 02767-5) GINA (test code = GINA) Table formatting [...] wall motion is globally hyperkinetic. [facility] HospitalTransthoracic echo (TTE)2023-04-21 18:05:03* Test Item Value Reference Range Interpretation Comme nts Height (test code = 5387699887) 63 in Weight (test code = 5326362810) 130 lbs Systolic BP (test code = 0760299103) 114 mmHg Diastolic BP (test code = 6925045465) 75 mmHg Heart Rate (test code = 5043655786) 98 bpm BSA (test code = 5955690226) 1.61 m2 LVIDD (test code = 1590914267) 4.00 cm Left Ventricular End Diastolic Volume by Teichholz Method (test code = 1911103) 70.0 mL IVS (test code = 7880354839) 1.07 cm Interventricular Septum Diastolic Thickness by 2D (test code = 3572000) 1.07 cm LVPWD (test code = 7243689069) 1.05 cm PW (test code = 6791441452) 1.05 cm 0.6-1.1 EF(Teich) (test code = 3302983272) 62.60 % LVIDS (test code = 8430058984) 2.70 cm Left Ventricular End Systolic Volume by Teichholz Method (test code = 3125194) 26.2 mL FS (test code = 6061504604) 33 % EF - 2D (test code = 15640528) 62.60 % Ao root diam (test code = 0493060310) 3.70 cm Aortic root (test code = 0673010373) 3.7 cm Ao root annulus (test code = 7819433088) 3.7 cm LA size (test code = 2586288767) 3.2 cm LVOT diameter (test code = 9168616299) 2.08 cm LVOT area (test code = 0930471763) 3.40 cm2 MV Peak E Nima (test code = 0519773215) 48.3 cm/s E wave decelartion time (test code = 8185598178) 0.15 s MV Peak A Nima (test code = 3063913574) 74.4 cm/s E/A ratio (test code = 4436610987) 0.65 ratio MV Prop V (test code = 9668499579) 21.20 cm/s LAV(MOD-sp4) (test code = 5719394783) 35.30 mL Tapse (test code = 6361363319) 1.73 cm LVOT stroke volume (test code = 6889565921) 45.20 cm3 LVOT peak nima (test code = 0756532999) 79.0 cm/s LVOT mn grad (test code = 5321291503) 1.3 mmHg AV LVOT peak gradient (test code = 2591382690) 2.50 mmHg LVOT peak VTI (test code = 3451822036) 13.2 cm LV V1 mean (test code = 7194604724) 52.90 cm/s Ao peak nima (test code = 7888472382) 83.8 cm/s AV area peak nima (test code = 3704616675) 3.2 cm2 Ao max PG (test code = 7639847491) 2.80 mm[Hg] AV peak gradient (test code = 5382623499) 2.8 mmHg LA Volume Index (BP) (test code = 9003231304) 25.9 mL/m2 LA volume (BP) (test code = 5931773461) 41.8 mL LAV(MOD-sp2) (test code = 6996139397) 40.90 mL A4C EF (test code = 4183851739) 54.40 % EF(sp4-el) (test code = 4235839433) 55.00 % SV(MOD-sp4) (test code = 0389935182) 53.10 mL SV(sp4-el) (test code = 5545537861) 55.60 mL Radiology Study observation (narrative) (test code = 08927-3) GINA (test code = GINA) ?Left?Ventricle: Left [...] agent used. Patient exhibited sinus rhythm. [facility] HospitalPOCT GLUCOSE (AUT[facility]ATED)2023-04-21 17:48:26* Test Item Value Reference Range Interpretation Comme nts POCT GLU (test code = 4311019744) 198 mg/dL 70-110 H Lab Interpretation (test cod e = 87563-8) Abnormal [facility] HospitalXR CHEST 1 [id number] 15:12:07EXAM: XR CHEST 1 VW HISTORY: NSTEMI COMPARISON: None. FINDINGS: Small bandlike densities in the left midlung have more the appearance ofatelectasis than pneumonia. The lungs are well expanded and clearotherwise. The heart and great vessels are normal except for calcium in thearch of the aorta.[facility] HospitalPOCT GLUCOSE (AUTOMATED)2023-04-21 09:39:57* Test Item Value Reference Range Interpretation Comme nts POCT GLU (test code = 4482585854) 243 mg/dL 70-110 H Lab Interpretation (test cod e = 00374-5) Abnormal [facility] HospitalFerritin [id number] 07:28:27* Test Item Value Reference Range Interpretation Comme nts FERRITIN (test code = 1805801197) 76.3 ng/mL 18.0-464.0 GINA (test code = GINA) Biotin has been reported to cause a negative bias, interpret results relative to patient's use of biotin. Lab Interpretation (test code = 15616-2) Normal [facility] HospitalGlycosylated Hemoglobin (A1C)2023-04-21 07:25:47* Test Item Value Reference Range Interpretation Comme [facility] HGB A1C (test code = 4548-4) 12.6 % 4.0-5.7 H GINA (test code = GINA) Reference RangesNormal: <5.7%Prediabetes: 5.7 - 6.4%Diabetes: > 6.5% Lab Interpretation (test code = 34705-7) Abnormal [facility] HospitalThyroid Stimulating Cplnlai9452-57-42 07:24:07 * Test Item Value Reference Range Interpretation Comme nts TSH (test code = 8631386699) 2.56 See_Comment [Automated resmioa ge] The system which generated this result transmitted reference range: 0.45 - 4.70 mIU/L. The reference range was not used to interpret this result as normal/abnormal. Lab Interpretation (test code = 01166-3) Normal [facility] HospitalPhosphorus2023-12-27 06:52:06* Test Item Value Reference Range Interpretation Comme nts PHOSPHORUS (test code = 8261826240) 3.2 mg/dL 2.5-5.0 Lab Interpretation (test cod e = 94443-4) Normal [facility] HospitalCritical Ommg3044-23-77 02:54:15NSergio chin MD ? ? 04/20/2023 ?8:54 [...] separately billable procedures and treating other patients. [facility] [id number] 02:30:18* Test Item Value Reference Range Interpretation Comme nts TROPONIN I (test code = 7856539293) 0.154 ng/mL <=0.034 H GINA (test code [...] of biotin. Lab Interpretation (test code = 56522-1) Abnormal [facility] HospitalETHANOL2023-12-27 02:24:46 ALCOHOL<10mg/dL04/20/2023 8:24 PM [facility]10 Uuwqbcoo40-231 Toxic>100 Depression of ANALYSIS ANALYST>400 Fatalities ReportedUnMemorial Hermann [facility] HospitalCOMP. METABOLIC PANEL (53935)2023-04-21 02:19:15* Test Item Value Reference Range Interpretation Comme nts NA (test code = 5360489351) 129 mmol/L 135-145 L K (test code = 9024617929) 3.5 mmol/L 3.5-5.0 CL (test code = 4685180592) 94 mmol/L 98-108 L CO2 TOTAL (test code = 7632529093) 28 mmol/L 23-31 AGAP (test code = 6975591923) 7 2-16 BUN (test code = 5642527493) 26 mg/dL 7-23 H GLUCOSE (test code = 3080213990) 314 mg/dL 70-110 H CREATININE (test code = 1192009079) 0.92 mg/dL 0.60-1.25 TOTAL BILI (test code = 7870914606) 0.8 mg/dL 0.1-1.1 CALCIUM (test code = 9319235972) 8.5 mg/dL 8.6-10.6 L T PROTEIN (test code = 7577223978) 6.0 g/dL 6.3-8.2 L ALBUMIN (test code = 1206626601) 3.3 g/dL 3.5-5.0 L ALK PHOS (test code = 1323315325) 95 U/L 34-122 ALTv (test code = 1742-6) 23 U/L 5-50 AST(SGOT) (test code = 2432414061) 30 U/L 13-40 eGFR (test code = 65420-3) 98.2 mL/min/1.73m2 CKD-EPI eGFR (2020). Assuming creatinine has been stable day-to-day for at least three months, the eGFR indicates Category G1 (>= 90 mL/min/1.73 m2) Lab Interpretation (test code = 18630-7) Abnormal [facility] WITH [id number] 02:03:54* Test Item Value Reference Range Interpretation [...] g/dL 31.2-35.0 H RDW-SD (test code = 61265-2) 36.2 fL 38.5-51.6 L RDW-CV (test code = 788-0) 11.6 % 12.1-15.4 L PLT (test code = 777-3) 178 See_Comment [Automated messa ge] The system which generated this result transmitted reference range: 150 - 328 10*3/?L. The reference range was not used to interpret this result as normal/abnormal. MPV (test code = 51442-4) 10.9 fL 9.8-13.0 NRBC/100 WBC (test code = 5766481336) 0.0 See_Comment [Automated me ssage] The system which generated this result transmitted reference range: 0.0 - 10.0 /100 WBCs. The reference range was not used to interpret this result as normal/abnormal. NRBC x10^3 (test code = 1028012811) See_Comment [Automated messa ge] The system which generated this result transmitted reference range: 10*3/?L. The reference range was not used to interpret this result as normal/abnormal. GRAN MAT (NEUT) % (test code = 770-8) 81.3 % IMM GRAN % (test code = 5290765006) 0.30 % LYMPH % (test code = 736-9) 10.5 % MONO % (test code = 5905-5) 7.6 % EOS % (test code = 713-8) 0.1 % BASO % (test code = 706-2) 0.2 % GRAN MAT x10^3(ANC) (test code = 7125624162) 9.55 10*3/uL 1.99-6.95 H IMM GRAN x10^3 (test code = 1850214942) 0.04 10*3/uL 0.00-0.06 LYMPH x10^3 (test code = 731-0) 1.23 10*3/uL 1.09-3.23 MONO x10^3 (test code = 742-7) 0.89 10*3/uL 0.36-1.02 EOS x10^3 (test code = 711-2) 0.06-0.53 L BASO x10^3 (test code = 704-7) 0.01-0.09 Lab Interpretation (test code = 43485-4) Abnormal [facility] HospitalPOCT [facility] ([facility])2023-04-21 01:55:51* Test Item Value Reference Range Interpretation Comme nts POCT GLU (test code = 3746176783) 408 mg/dL 70-110 H Lab Interpretation (test cod e = 78240-0) Abnormal [facility] HospitalCOMPREHENSIVE METABOLIC [id number] 05:07:51* Test Item Value Reference Range Interpretation Comme nts GLUCOSE (test code = 2217) 224 MG/DL 70-99 H BUN (test code = 2208) 22 MG/DL 6-20 H CREATININE (test code = 2214) 0.71 MG/DL 0.80-1.40 L eGFR (2020 CKD-EPI) (test code = 30883) 109 ML/MIN/1.73 >60 CALC BUN/CREAT (test code [...] code = 2218) 24 U/L 5-50 LIPID [id number] 05:07:51* Test Item Value Reference Range Interpretation [...] SPECIMENS. FOR MOREINFORMATION, SEE CLIENT ANNOUNCEMENT AT [email or web address] RATIO LDL/HDL (test code = 2238) 1.72 RATIO <3.55 PSA, [id number] 05:07:10* Test Item Value Reference Range Interpretation Comme nts PSA, TOTAL (test code = 2606) 19.70 NG/ML See_Comment H NOTE: Methodolog y is Ashley Jasmina Electrochemiluminescence Immunoassay traceable to WHO reference standard 96/760. UNLESS OTHERWISE INDICATED, ALL TESTING PERFORMED [facility] [employer] [facility] [employer] [address] [place] [address] GEOTHERMAL ELECTRICAL ENGINEER: DUSTIN COLMENARES M.D. CLIA NUMBER [id number] [place]. [id number] [Automated message] The system which generated this result transmitted reference range: <=4.00. The reference range was not used to interpret this result as normal/abnormal. HEMOGLOBIN [id number] 02:46:58* Test Item Value Reference Range Interpretation Comme nts HEMOGLOBIN A1c (test code = 54940) 11.0 % 4.2-5.6 H TRISTAN[facility] DIABETE S [...] OR LABORATORY CONSULTATION. CBC W/AUTO DIFF WITH [id number] 02:32:39* Test Item Value Reference Range Interpretation [...] 0.00-0.10 ABS NUCLEATED RBCS (test code = 44572) 0.00 K/UL 0.00-0.11 Consult Notes Date/Time Note [...] when jensen is moved. COMMUNICATION Primary Language: [place] Able to Verbalize needs: Yes Vision:good; no [...] Minutes: 20 min Jesica Murphy,[place] License: [id number] Required Components in Determining Evaluation Level History: No personal factors or comorbidities: No (83276) 1-2 personal factors and/or comorbidities: Yes (85469) 3 or more personal factors and/ or comorbidities: No (54240) Examination of Body System(s) Addressing 1-2 elements: Yes (36844) Addressing a total of 3 or more elements: No (63043) Addressing a total of 4 or more elements: No (44850) Clinical Presentation Stable: Yes (37665) Evolving: No (87464) Unstable: No (07301) Clinical Decision Making (Complexity) Low: No (08286) Moderate: Yes (91048) High: No (49402) Jesica Murphy PT [facility] - [employer] 2023-08-15 10:01:34 Associated Order(s): CONSULT CARDIOLOGY [facility] Cardiology Consult Note Patient: Saturnino Maldonado Date [...] mL, Slow IV Push, PRN, Jerry Fields, glucagon (GLUCAGEN DIAGNOSTIC KIT) injection 1 mg, [...] per primary team. Last Two A1C Results ([facility]/, POCT, [place]) Recent Labs 04/20/23195408/14/23 1547 HGBA1C [...] feel free to call our office at [phone]. I would be happy to be of further assistance for Saturnino Maldonado wellbeing. Voice recognition software has been used to create portions of this document. An attempt to proofread has been made to minimize errors. Please do not hesitate to call with any questions. Benja Rivera MD Copy Manager, Division of Cardiology [facility] 2023-04-21 08:46:48 Associated Order(s): CONSULT ENDOCRINOLOGY Endocrinology Consult Note Consultation requested by: Service: White team Reason for Consultation: Diabetes Date of Service: 04/21/23 HPI 57 year old male with a PMH of HTN, T2DM, Fmhx premature CAD who presented with complaints of polyuria and weakness at [facility] ER. Patient transferred to [place] for further work up. Endocrinology consulted for diabetes management Diabetes Type and year diagnosed: 2011, type 2 Diabetes complications: none Hx of DM regimen: no meds for 3 years Compliance: - BG monitoring? - Hypoglycemia hx: no Hypoglycemia unawareness? no Symptoms of hyperglycemia: polyuria Living situation and support: homeless, lives with different relatives Diabetes doctor: PCP in [place], has not seen for few years Family [...] with complaints of polyuria and weakness at [facility] ER. Patient transferred to [place] for further work up. Endocrinology consulted for [...] pay, need NPH and Regular insulin to [facility] ([employer]) -Need insulin vials, syringe needles, glucometer, test strips, lancets -Need meds to bed before discharge -Please contact Endocrine before discharge - Case discussed with Dr. Cabrera.. Austin Amaro. Endocrinology Fellow, PGY 5 [facility] Associated attestation - Rita Cabrera MD - 04/22/2023 2:11 PM MEAL MILLER Endocrinology Faculty Attestation: I evaluated this patient's progress on 04/21/[address] Amaro note as written and revised. I actively participated in the decision-making process. Please see the resident's note for additional details that includes pertinent addendums I made directly in the note during revision. Rita Cabrera MD Copy Manager Division of Endocrinology IM-ENDOCRINOLOGY,DIABET ES & METABOLISM [facility] - Health History and Physical Notes Date/Time Note Provider Source 2023-08-21 22:53:53 [facility] Hospitalist Admission H&P Date of Service: 08/21/2023 [...] consulted. Patient was given the application for [employer] on last admission and will need to [...] user?: NO Patient will require observation [place] REPAIR CAMERAMAN was verified during stay Lyubov Banda MD [facility] 2023 22:58:21 MEDICINE MEGADC ADMIT H&P Date [...] present Code Status: Presumed Full Code T EMMCLAREN FLINT EMERGENCY PHYSICIAN STAFF [facility] 2023-04-21 00:39:12 MCAWHITE Admit H&P PCP: Erik Louie Jr Date of Service: 04/20/2023 CHIEF COMPLAINT: Polyuria HISTORY OF PRESENT ILLNESS Saturnino Maldonado is a 57 year old male with a PMH of HTN, T2DM, Fmhx premature CAD who presented with complaints of polyuria and weakness at [facility] ER. Patient transferred to [place] for further work up. Patient reports that [...] help with resources. Plan: - Admit to [facility] - Trend Troponin to peak - [...] Internal Medicine Department PGY 2, [place] Team MILLER Associated attestation - Bret Banda MD - 04/21/2023 2:47 PM MEAL MILLER I reviewed patient's chart, vitals, lab work, current medications and other diagnostic studies. I saw and examined the patient today and agree with the detailed note. I actively participated in the decision-making process. Bret Banda MD Copy Manager Division of Cardiology [facility] - Health Notes Date/Time Note Provider Source [...] Goal: Adequate nutritional intake 08/24/2023 1607 by aKlina Georges RN Outcome: Resolved 08/24/2023 1313 by [...] Outcome: Adequate for discharge Kalina Georges RN [facility] 2023-08-24 13:14:04 Problem: Pain Goal: Control of [...] Absence of falls Outcome: Adequate for discharge [facility] 2023-08-23 07:12:12 Problem: Pain Goal: Control of [...] Progressing as expected T Abi Lowery RN [facility] 2023-08-22 22:07:54 Problem: Pain Goal: Control of [...] Outcome: Progressing as expected Tammy Sweeney RN [facility] 2023-08-22 08:41:53 Problem: Pain Goal: Control of [...] Outcome: Progressing as expected Mihaela Lopez RN [facility] 2023-08-22 03:26:01 Problem: Pain Goal: Control of [...] Outcome: Progressing as expected Angeline Claudio RN [facility] 2023-08-21 23:32:26 Patient admitted to [facility] 2101 for diagnosis of ELIEZER, urinary obstruction Patient agrees to admission, discussed plan of care with patient and family. Patient is awake, alert, oriented, resp reg unlabored, color appropriate for race, PIV intact No adverse reaction to medications administered while in ED Belongings with patient to unit Report to [facility] RN Chela Reyes RN [facility] 2023-08-21 19:43:36 Pt C/O RLQ pain that started yesterday, pt states last BM 08/16/2023. Pt denies any urinary, nausea or vomiting Sydney Duff RN [facility] 2023-08-21 19:39:00 [facility] Emergency Department Note Patient Name: Saturnino Maldonado Date of : 1965 58 year old male Treatment Room: [place] [address] Primary Care Physician: Erik Louie Jr Patient Escorted by: Self [9] Mode of Arrival: EMS - [place] [46] EMS Treatment Prior to ED Arrival: TRANSFERRER treatment: None Travel and Exposure Screening: Symptoms [...] 0.01 - 0.09 10*3/uL COMP. METABOLIC PANEL (36175) - Abnormal NA 120 (*) 135 - [...] CONTRAST Cbc with Diff Comp. Metabolic Panel (96909) Lipase Urinalysis Basic Metabolic Panel (NA, K, [...] treatment AdmissionCare documentation entered by: Cosme Cardona [facility] [employer], 27th edition, Copyright ? 2022 [facility] [employer] All Rights Reserved. [id number]:26:32-05:00 ED COURSE ED Course as of 08/21/235 [...] Electronically signed by: Cosme Cardona DO 08/21/232254 [facility] 2023-08-21 19:39:00 AdmissionCare Guideline: Urologic [...] treatment AdmissionCare documentation entered by: Cosme Cardona [facility] [employer], 27th edition, Copyright ? 2022 [facility] [employer] [facility] All Rights Reserved. [id number]:26:32-05:00 [facility] 2023-08-17 08:32:29 ----- Message from Yary Renner [...] with one of us in 3-4 weeks. [facility] 2023-08-16 17:56:55 Summary: discharge transportation Discharge paperwork provided, patient stated he does not have a ride. Transportation was arranged with voucher. Discharge location: [address] [place] [id number] Patient verbalized understanding. T Hilary Quinones RN [facility] 2023-08-16 17:19:16 Problem: Pain Goal: Control of pain at or below patient's documented comfort goal Outcome: Resolved Goal: Reduction in pain sensation Outcome: Resolved Problem: Skin integrity Impaired (Risk or Actual) Goal: Prevention of new skin breakdown Outcome: Resolved Problem: Venous Thromboembolism, (actual or risk of) Goal: Absence of venous thromboembolism (Risk) Outcome: Resolved [facility] 2023-08-16 10:33:18 Summary: jensen Jensen discontinued without complications. Patient given lactulose PO. Patient notified to notify nurse and to leave urine/stool before flushing for nursing staff to assess. Patient verbalized understanding. [facility] 2023-08-16 00:51:24 Problem: Pain Goal: [...] venous thromboembolism (Risk) Outcome: Progressing as expected [facility] 2023-08-15 19:27:06 Problem: Pain Goal: [...] Outcome: Progressing as expected Libia Johnson RN [facility] 2023 23:43:36 Problem: Pain Goal: Control of pain at or below patient's documented comfort goal Outcome: Progressing as expected Goal: Reduction in pain sensation Outcome: Progressing as expected Problem: Skin integrity Impaired (Risk or Actual) Goal: Prevention of new skin breakdown Outcome: Progressing as expected Problem: Venous Thromboembolism, (actual or risk of) Goal: Absence of venous thromboembolism (Risk) Outcome: Progressing as expected [facility] 2023 23:01:15 Patient admitted to [facility] for diagnosis of Hypertension, elevated troponin, urine retention, ELIEZER, hypokalemia. Patient agrees to admission, discussed plan of care with patient and family. Patient is awake, alert, oriented, resp reg unlabored, color appropriate for race, PIV intact No adverse reaction to medications administered while in ED Belongings with patient to unit Report to [facility] RN oJsi Miller RN [facility] 2023 18:56:57 Handoff report given to Josi VILLAGRAN Nunu Fang RN [facility] 2023 14:42:29 Has been out of diabetic, BP meds since April. States he can't "afford it". Struggling with constipation for "several days". He called EMS today for excessive fatigue and worsening hypertension. He is A&Ox4 and able to ambulate. Alba Hernandez RN [facility] - Health 2023 14:38:00 Associated Order(s): EKG-12 Lead ROUTINE ONCE Pre-Procedure Diagnose(s): Hypertension, unspecified type Post-Procedure Diagnose(s): Hypertension, unspecified type; Elevated troponin I level; Urine retention [facility] Emergency Department Note Patient Name: Saturnino Maldonado Date of : 1965 58 year old male Treatment [facility]: [facility] Primary Care Physician: Erik Louie Jr Patient Escorted by: Self [9] Mode of Arrival: EMS - [place] [46] EMS Treatment Prior to ED Arrival: [...] History provided by: Patient and medical records mid level developer used: No Past Medical History/Immunizations: Past Medical [...] ED Events Date/Time Event User Comments 08/14/23 8135 Medical Screening Begins UMANG REYNAGA MD -- 08/14/23 145 First Provider Evaluation UMANG REYNAGA MD -- ED COURSE ED Course as of 08/14/231840 Sat Aug 14, 20231840 Discussed all the results with the patient, [...] [CD] Umang Reynaga MD Diagnosis/Impression as of 04/20/24 1841 Hypertension, unspecified type Elevated troponin I level Urine retention ELIEZER (acute kidney injury) Hypokalemia Procedures: EKG-12 Lead ROUTINE ONCE Date/Time: 2023 5:55 PM Performed by: Umang Reynaga MD Authorized by: Umang Reynaga MD ECG interpreted by ED Physician in the absence of a tech brazer tester: yes Previous ECG: Previous ECG: Compared to [...] Follow-up: Electronically signed by: Umang Reynaga MD 04/20/24 1852 [facility] [employer] 2023 14:38:00 AdmissionCare Guideline: Renal Failure (Acute), [...] assessments) AdmissionCare documentation entered by: Umang Reynaga [employer], edition, Copyright ? 2022 [employer] All Rights Reserved. [id number]:45:18-05:00 [facility] [employer] 2023 14:38:00 AdmissionCare Guideline: Renal Failure (Acute) [...] patients) AdmissionCare documentation entered by: Umang Reynaga [employer], edition, Copyright ? 2022 [employer] All Rights Reserved. [id number]:00:25-05:00 [facility] 2023-04-27 15:56:14 TRANSITIONAL CARE MANAGEMENT ASSESSMENT 04/27/2023 Saturnino Maldonado [id number] Saturnino Maldonado is a 57 year old /White male was admitted on 04/20/[address] He was discharged on 04/23/23 with [...] to check in. No linked episodes TCM Hfk-juyi-ev-face outreach documentation: Future Appointments: MILLER Jeannette Dawn LVN [facility] 2023-04-23 18:39:42 Patient refuses to take taxi voucher which takes him directly to [place] stating, "My brother is on his way to pick me up. I don't want to upset him as it is anymore." When asked if his brother is going to take him to [place], patient stated, "I don't know. That will be between me and my brother." Transportation in room, wheeled patient downstairs to [facility]. MILLER Meme Sparks RN [facility] 2023-04-23 17:33:42 Problem: Glucose control Goal: Glucose level within specified parameters 04/23/2023 1733 by Valentino Whiting, RN Outcome: Adequate for discharge 04/23/2023 1732 by Valentino Whiting, RN Outcome: Adequate for discharge 04/23/2023 1051 by Valentino Whiting, RN Outcome: Progressing as expected Problem: Discharge Planning Goal: Adequate for discharge 04/23/2023 1733 by Valentino Whiting, RN Outcome: [...] Outcome: Progressing as expected A Whiting RN [facility] 2023-04-23 17:33:03 Problem: Glucose control Goal: Glucose [...] Valentino Whiting RN Outcome: Progressing as expected [facility] 2023-04-23 10:51:50 Problem: Glucose control Goal: [...] of cognitive ability Outcome: Progressing as expected [facility] 2023-04-23 00:56:44 Problem: Mental Status - Impaired Goal: Able to achieve maximum level of cognitive ability Outcome: Progressing as expected [facility] 2023-04-23 00:52:07 Problem: Glucose control Goal: [...] within specified parameters Outcome: Progressing as expected [facility] 2023-04-22 08:03:00 Problem: Glucose control Goal: [...] within specified parameters Outcome: Progressing as expected [facility] 2023-04-20 23:38:56 Problem: Glucose control Goal: [...] within specified parameters Outcome: Progressing as expected [facility] 2023-04-20 21:49:51 Patient admitted to [facility] ROOM 923 for diagnosis of WEAKNESS, NSTEMI, HYPERGLYCEMIA Patient agrees to admission, discussed plan of care with patient. Patient is awake, alert, oriented, resp reg unlabored, color appropriate for race, PIV intact No adverse reaction to medications administered while in ED Belongings with patient to unit Report to MARIE VILLAGRAN REPORT GIVEN TO MEDIC FOR [facility], PT LOADED TO BE TRANSFERRED. [facility] INFUSING AT 700 UNITS/ HOUR. [facility] Jaelyn Vargas RN [facility] 2023-04-20 21:38:11 Report called to [facility], spoke with Marie VILLAGRAN. Pt awaiting EMS transfer. [facility] 2023-04-20 20:59:06 [facility] ETA 45 MIN per Chen A Carrero PCT [facility] 2023-04-20 20:54:15 Associated Order(s): Critical Care Critical [...] separately billable procedures and treating other patients. [facility] [employer] 2023-04-20 20:00:00 Patient aware of UA sample needed. Unable to provide sample at this moment. Urinal at bedside. Call light within reach. [facility] [employer] 2023-04-20 19:50:08 Patient arrived to ED via [facility] c/o "not feeling well." FSBG 386 TRANSFERRER. Per patient he was diagnosed with DM five years ago and stopped taking home meds-Metformin about three years ago. Patient c/o of being weak and increased UOP. Patient was nauseous TRANSFERRER but has resolved since. MILLER [facility] 2023-04-20 19:43:00 EMERGENCY DEPARTMENT ENCOUNTER [facility] Patient Name: Saturnino Maldonado Date of : 1965 57 year old Exam Room:Room/bed info not found Primary Care Physician: No primary care provider on file. Pre- Hospital Patient Escorted by: Self [9] Mode of Arrival: EMS - [facility] ([facility]) [43] EMS Treatment Prior to ED Arrival: TRANSFERRER treatment: Saline lock;IVF ED Events Date/Time Event User Comments 04/20/231943 Medical Screening Begins SERGIO APONTE MD -- 04/20/231943 First Provider Evaluation SERGIO APONTE MD -- Chief Complaint Chief Complaint Patient presents with High Blood Sugar ED Triage Notes Megan Madrigal RN 04/20/2023 19:52 Patient arrived to ED via [facility] c/o "not feeling well." FSBG 386 TRANSFERRER. Per patient he was diagnosed with DM five years ago and stopped taking home meds-Metformin about three years ago. Patient c/o of being weak and increased UOP. Patient was nauseous TRANSFERRER but has resolved since. HPI History provided [...] 0.01 - 0.09 10*3/uL COMP. METABOLIC PANEL (51956) - Abnormal NA 129 (*) 135 - [...] VW CBC WITH DIFF COMP. METABOLIC PANEL (28925) URINALYSIS URINE DRUG (IMMUNOASSAY) - COMPREHENSIVE DRUG SCREEN W/O REFLEX ETHANOL POCT GLUCOSE (AUTOMATED) Troponin I Prothrombin Time / INR aPTT aPTT (for use with Heparin Infusion) Ferritin Serum Iron Panel Troponin I Thyroid Stimulating Hormone Glycosylated Hemoglobin (A1C) Phosphorus Cbc with Diff Basic Metabolic Panel (NA, K, CL, CO2, GLUCOSE, BUN, CREATININE, CA) Magnesium Lipid Panel (02794)(Total Cholesterol, Triglycerides, HDL) O2 Per Protocol Orders [...] mg Procedures EKG Time 1950 Sinus tach Bigelow normal Intervals normal No acute ischemia Notes [...] cardiac catheterization. The patient was transferred to [place] for further evaluation. History, physical exam findings, [...] this patient. Sergio Aponte Jr., MD Clinical Copy Manager [facility] Emergency Department [facility] D[employer] Software is used frequently and may produce errors. Promptly contact for obvious discrepancies. Sergio Aponte MD 04/21/23 [facility] EMERGENCY PHYSICIAN STAFF [facility]
--- NOTE | 2024-07-02 04:25 | ER ---
Nurse's Notes [facility] Name: Johnnie Maldonado Age: 58 yrs Sex: Male : 1965 Arrival Date: 07/02/2024 Time: 04:17 Bed 5 Private MD: Diagnosis: Pain in right leg Presentation: 07/02 04:25 Chief complaint: EMS states: PT WALKED INTO [facility] AND REPORTED HE HAS A BRUISE TO RT dd2 LEG AND HE NEEDED PAIN MEDICATION. PT REPORTS HE WALKED ALL DAY WEDNESDAY AND FELL, CAME HERE FOR XRAY AND IT WAS NORMAL BUT HURTS AND NEEDS MEDICINE. Coronavirus screen: At this time, the client does not indicate any symptoms associated with coronavirus-19. Ebola Screen: No symptoms or risks identified at this time. Initial Sepsis Screen: Does the patient meet any 2 criteria? No. Patient's initial sepsis screen is negative. Does the patient have a suspected source of infection? No. Patient's initial sepsis screen is negative. Risk Assessment: Do you want to hurt yourself or someone else? Patient reports no desire to harm self or others. Onset of symptoms was June 30, 2024. 04:25 Method Of Arrival: EMS: [facility] dd2 04:25 Acuity: DONTE 5 dd2 Triage Assessment: 04:25 General: Appears in no apparent distress. unkempt, Behavior is calm, cooperative, dd2 appropriate for age. Pain: Complains of pain in right leg Pain does not radiate. Pain currently is 7 out of 10 on a pain scale. Pain began 2-3 days ago. EENT: No deficits noted. No signs and/or symptoms were reported regarding the EENT system. Neuro: No deficits noted. [place] Agitation-Sedation Scale (RASS): 0 - Alert and Calm. Cardiovascular: No deficits noted. Respiratory: No deficits noted. Airway is patent Respiratory effort is even, unlabored, Respiratory pattern is regular, symmetrical. GI: No deficits noted. : No deficits noted. No signs and/or symptoms were reported regarding the genitourinary system. Derm: Skin is intact, Skin is dry, Skin is normal, Skin temperature is warm Reports pain that is 7 out of 10 on a pain scale. Musculoskeletal: No deficits noted. No signs and/or symptoms reported regarding the musculoskeletal system. Circulation, motion, and sensation intact. Range of motion: intact in all extremities. Historical: - Allergies: 04:21 No Known Allergies; ha1 - PMHx: 04:21 diabetes mellitus; Hypertensive disorder; raynaud's; Urinary incontinence; ha1 - PSHx: 04:21 right arm; ha1 - Immunization history:: Adult Immunizations unknown. - Infectious Disease History:: Denies. - Social history:: Smoking status: Patient reports the use of cigarette tobacco products, unknown amount. - Family history:: not pertinent. Screenin:22 Abuse screen: Denies threats or abuse. Denies injuries from another. Nutritional ha1 screening: No deficits noted. Tuberculosis screening: No symptoms or risk factors identified. 04:34 [facility] ED Fall Risk Assessment (Adult) History of falling in the last 3 months, dd2 including since admission Yes- single mechanical fall (1 pt) Confusion or Disorientation No (0 pts) Intoxicated or Sedated No (0 pts) Impaired Gait No (0 pts) Mobility Assist Device Used No (0 pt) Altered Elimination No (0 pt) Score/Fall Risk Level 0 - 2 = Low Risk Oriented to surroundings, Maintained a safe environment, Educated pt \T\ family on fall prevention, incl call for assistance when getting out of bed, Assessed \T\ reinforced patient's understanding of fall precautions, Hourly rounding (assess needs \T\ fall precautionary measures) done. Assessment: 04:34 Reassessment: SEE TRIAGE ASSESSMENT FOR FULL ASSESSMENT. dd2 Vital Signs: 04:25 BP 162 / 86; Pulse 90; Resp 16; Temp 98.3; Pulse Ox 100% on R/A; Weight 74.84 kg; Pain dd2 7/10; 04:39 BP 157 / 82; Pulse 86; Resp 16; Pulse Ox 98% on R/A; dd2 04:25 Pain Scale: Adult dd2 Lester Coma Score: 04:34 Eye Response: spontaneous(4). Motor Response: obeys commands(6). Verbal Response: dd2 oriented(5). Total: 15. ED Course: 04:20 Patient arrived in ED. ha1 04:20 Fernando Schafer MD is Attending Physician. rt 04:25 Arm band placed on left wrist. dd2 04:31 Triage completed. dd2 04:34 Patient has correct armband on for positive identification. Bed in low position. Call dd2 light in reach. Client placed on continuous cardiac and pulse oximetry monitoring. NIBP monitoring applied. Door closed. Noise minimized. Warm blanket given. Pillow given. Verbal reassurance given. 04:34 No provider procedures requiring assistance completed. Patient did not have IV access dd2 during this emergency room visit. Patient maintains SpO2 saturation greater than 95% on room air. 04:38 TOI CALDERON, RN is Primary Nurse. dd2 04:40 Provided Education on: DD/C EDUCATION. dd2 Administered Medications: 04:33 Drug: Ibuprofen PO 800 mg PO once Route: PO; cp4 04:43 Follow up: Response: No adverse reaction dd2 Medication: 04:34 VIS not applicable for this client. dd2 Outcome: 04:25 Discharge ordered by . rt 04:40 Discharged to WAITING AREA dd2 04:40 Condition: stable 04:40 Discharge instructions given to patient, Instructed on discharge instructions, follow up and referral plans. Demonstrated understanding of instructions, follow-up care, 04:41 Patient left the ED. dd2 Signatures: Cari Wilburn RN RN ha1 Fernando Schafer MD MD rt Potter, Christina cp4 TOI CALDERON, RN RN dd2
--- NOTE | 2024-07-02 04:25 | EDPHYS ---
Physician Documentation [facility] Name: Johnnie Maldonado Age: 58 yrs Sex: Male : 1965 Arrival Date: 07/02/2024 Time: 04:17 Bed 5 Private MD: ED Physician Fernando Schafer HPI: 07/02 04:47 This 58 yrs old Male presents to ER via EMS with complaints of Leg Pain. rt 04:47 Patient presents to the ED with continuation of pain to the right thigh, was seen in rt the ED for a fall or a bruise to the right thigh, negative x-rays. Denies other injury, other acute complaints, symptoms are mild in severity, aching nature, nonradiating, no other aggravating elevating factors.. Historical: - Allergies: 04:21 No Known Allergies; ha1 - PMHx: 04:21 diabetes mellitus; Hypertensive disorder; raynaud's; Urinary incontinence; ha1 - PSHx: 04:21 right arm; ha1 - Immunization history:: Adult Immunizations unknown. - Infectious Disease History:: Denies. - Social history:: Smoking status: Patient reports the use of cigarette tobacco products, unknown amount. - Family history:: not pertinent. ROS: 04:47 Constitutional: Negative for fever, chills, and weight loss, Cardiovascular: Negative rt for chest pain, palpitations, and edema, Respiratory: Negative for shortness of breath, cough, wheezing, and pleuritic chest pain, Abdomen/GI: Negative for abdominal pain, nausea, vomiting, diarrhea, and constipation, Skin: Negative for injury, rash, and discoloration, Neuro: Negative for headache, weakness, numbness, tingling, and seizure, 04:47 MS/extremity: Positive for contusion, pain, Exam: 04:47 Constitutional: This is a well developed, well nourished patient who is awake, alert, rt and in no acute distress. Head/Face: Normocephalic, atraumatic. Skin: Warm, dry with normal turgor. Normal color with no rashes, no lesions, and no evidence of cellulitis. MS/ Extremity: Pulses equal, no cyanosis. Neurovascular intact. Full, normal range of motion. Neuro: Awake and alert, GCS 15, oriented to person, place, time, and situation. Cranial nerves II-XII grossly intact. Motor strength 5/5 in all extremities. Sensory grossly intact. Cerebellar exam normal. Normal gait. Vital Signs: 04:25 BP 162 / 86; Pulse 90; Resp 16; Temp 98.3; Pulse Ox 100% on R/A; Weight 74.84 kg; Pain dd2 7/10; 04:39 BP 157 / 82; Pulse 86; Resp 16; Pulse Ox 98% on R/A; dd2 04:25 Pain Scale: Adult dd2 Buchanan Coma Score: 04:34 Eye Response: spontaneous(4). Motor Response: obeys commands(6). Verbal Response: dd2 oriented(5). Total: 15. MDM: 04:20 Medical Screening Exam initiated rt 04:47 Differential Diagnosis Contusion, musculoskeletal pain. Data reviewed: vital signs, rt nurses notes. Test considered but Not performed: X-ray: X-ray was negative just 2 days ago, no new injuries, x-rays not indicated. Care significantly affected by the following chronic conditions: Diabetes, Hypertension. Counseling: I had a detailed discussion with the patient and/or guardian regarding the historical points, exam findings, and any diagnostic results supporting the discharge/admit diagnosis, the need for outpatient follow up. Administered Medications: 04:33 Drug: Ibuprofen PO 800 mg PO once Route: PO; cp4 04:43 Follow up: Response: No adverse reaction dd2 Disposition Summary: 07/02/24 04:25 Discharge Ordered Notes: Location: Home rt Problem: an ongoing problem rt Symptoms: are unchanged rt Condition: Stable rt Diagnosis - Pain in right leg rt Followup: rt - With: Private Physician - When: 2 - 3 days - Reason: Discharge Instructions: - Discharge Summary Sheet rt - Musculoskeletal Pain rt Forms: - Medication Reconciliation Form rt - Antibiotic Education rt - Prescription Opioid Use rt - Patient Portal Instructions rt - Leadership Thank You Letter rt Signatures: Cari Wilburn RN RN ha1 Fernando Schafer MD MD rt Veronica Gonzalez cp4 TOI CALDERON RN RN dd2
[2024-07-02] MEDS ORDERED: IBUPROFEN 400 MG TAB ONE (04:29)
[2024-07-02 04:46] VITALS: TEMP 98.3
[2024-07-02 04:48] VITALS: BP 157/82; O2SAT 98
== END 2024-07-02 04:41 | disposition home or self-care (01) ==
LOC: ER 04:17
DX: M79.604 Pain in right leg (principal)
CPT/HCPCS: 99284

== ENCOUNTER 2024-07-06 02:54 | Emergency (ER) | payer SELFPAY ==
--- OUTSIDE RECORDS SUMMARY | 2024-07-06 03:00 | XMS REPORT | Continuity of Care Document ---
Author Name Unknown Address [address] [facility] [address] [place] [address] [facility] [place] Address [address] [facility] 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 Primary Care Physician + [phone] Doctor Unassigned, [place] Attending Clinician U Cosme Ward DO Attending Clinician [phone] Solo CHONG, Lyubov Hilton Attending Clinician [phone] Rosalie Irizarry RN Attending Clinician [phone] Miguel CHONG, Ricky Hoskins Attending Clinician + [phone] Umang Reynaga MD Attending Clinician [phone] Jerry Fields DO Attending Clinician [phone] Vimal Quiñones MD Attending Clinician [phone] Jeannette Dawn LVN Attending Clinician + [phone] PARVEZ MONROE Attending Clinician Unavailable Sergio Aponte MD Attending Clinician [phone] Bret Banda MD Attending Clinician [phone] Parvez Monroe MD Attending Clinician [phone] Lyubov Banda MD Admitting Clinician [phone] Jerry Fields DO Admitting Clinician [phone] PARVEZ MONROE Admitting Clinician Unavailable Parvez Monroe MD Admitting Clinician [phone] Problems Condition Name Condition Details Condition Category Status Onset Date Resolution Date Last Treatment Date Treating Clinician Comments Source Elevated troponin I level Elevated troponin I level Disease Active 08-14 00:00: 00 [facility] Elevated brain natriureti c peptide (BNP) level Elevated brain natriureti c peptide (BNP) level Disease Active 08-14 00:00: 00 [facility] Essential hypertensi on Essential hypertensi on Disease Active 08-14 00:00: 00 [facility] ELIEZER (acute kidney injury) ELIEZER (acute kidney injury) Disease Active 08-14 00:00: 00 [facility] Type 2 diabetes mellitus with other specified complicati on Type 2 diabetes mellitus with other specified complicati on Disease Active 08-14 00:00: 00 [facility] Hypertensi on, unspecifie d type Hypertensi on, unspecifie d type Disease Active 08-13 00:00: 00 [facility] NSTEMI (non-ST elevated myocardial infarction ) NSTEMI (non-ST elevated myocardial infarction ) Disease Active 2022-04 00:00: 00 [facility] Allergies, Adverse Reactions, Alerts Allergy Name Allergy Type Status Severity Reaction(s) Onset Date Inactive Date Treating Clinician Comments Source NO KNOWN ALLERGIE S Drug Class Active [facility] Social History Social Habit Start Date Stop Date Quantity Comments Source [facility] of Social function 2023-08-23 00:00:00 2023-08-23 00:00:00 [facility] Alcohol intake 2023-08-22 00:00:00 2023-08-22 00:00:00 Lifetime non-drinker (finding) [facility] Alcoholic beverage intake 2023-08-22 00:00:00 2023-08-22 00:00:00 Lifetime non-drinker (finding) [facility] Tobacco use and exposure 2023-04-21 00:00:2023-04-21 00:00:00 Smokeless tobacco non-user [facility] Sex assigned at 1965 00:00:00 1965 00:00:00 [facility] Smoking Status Start Date Stop Date Source Never smoked tobacco [facility] Medications Ordered Medication Name Filled Medication Name Start Date Stop Date Current Medication? Ordering Clinician Indication Dosage Frequency Signature (SIG) Comments Components Source acarbose 25 mg tablet 08-23 00:00: 00 Yes [id number] 25mg Take 1 tablet by mouth in the morning and 1 tablet at noon and 1 tablet in the evening. Take with meals. [facility] metFORMIN 500 mg 24 hr tablet 08-23 00:00: 09-23 04:59 :00 No [id number] 500mg Take 1 tablet by mouth in the morning and 1 tablet in the evening. Take with meals. Do all this for 30 days. [facility] amLODIPine 10 mg tablet 08-23 00:00: 09-23 04:59 :00 No [id number] 10mg Take 1 tablet by mouth in the morning for 30 days. [facility] tamsulosin 0.4 mg 24 hr capsule 08-23 00:00: 00 09-23 04:59 :00 No [id number] .4mg Take 1 capsule by mouth in the morning for 30 days. [facility] levoFLOXaci n 500 mg tablet 08-23 00:00: 08-26 04:59 :00 No [id number] 500mg Take 1 tablet by mouth every 24 (twenty-fo ur) hours for 2 days. [facility] cefTRIAXone (ROCEPHIN) 1,000 mg in [...]
D uration of therapy: Once (ED) [facility] D5W IV infusion 1,000 mL 08-22 15:00: 00 08-22 16:53 :22 No 1000mL at 50 mL/hr, IV Infusion, ONCE, 1 dose, On Wed08/23/23 at 1000, Routine [facility] amLODIPine (NORVASC) tablet 5 mg 08-22 14:00: 00 Yes 5mg 5 mg, Oral, DAILY, First dose on Wed08/23/23 at 0900, Until Discontinu ed, Routine [facility] D5W 0.45% NaCl (1/2NS) IV infusion 1,000 mL 08-22 02:29: 00 08-23 17:53 :57 No 1000mL at 75 mL/hr, 1,000 mL, IV Infusion, CONTINUOUS , Starting on Wed08/22/23 at 2130, Until Wed08/24/23 at 1253, Routine [facility] D5W IV infusion 1,000 mL 08-21 21:30: 00 08-22 02:27 :22 No 1000mL at 100 mL/hr, IV Infusion, CONTINUOUS , Starting on Wed08/22/23 at 1630, Until Wed08/22/23 at 2127, Routine [facility] Sliding Scale Insulin - Lispro (HumaLOG) 08-21 21:00: 00 Yes Subcutaneo us, Q4H, First dose on Wed08/22/23 at 1600, Until Discontinu ed, Routine [facility] glucagon (GLUCAGEN DIAGNOSTIC KIT) injection 1 mg 08-21 20:17: 12 Yes 1mg 1 mg, Intramuscu lar, PRN, Starting on Wed08/22/23 at 1517, Until Discontinu ed, HAO, Blood Glucose < or = 70 mg/dL and patient is NPO, unable to swallow or has mental changes. [facility] dextrose 50 % in water (D50W) injection 25 mL 08-21 20:17: 12 Yes 25mL 25 mL, Slow IV Push, PRN, Starting on Wed08/22/23 at 1517, Until Discontinu ed, HAO, Blood Glucose < or = 70 mg/dL and patient is NPO, unable to swallow or has mental status changes. [facility] D5W IV infusion 1,000 mL 08-21 17:45: 00 08-21 20:16 :11 No 1000mL at 100 mL/hr, IV Infusion, CONTINUOUS , Starting on Wed08/22/23 at 1245, Until Wed08/22/23 at 1516, Routine [facility] tamsulosin (FLOMAX) capsule 0.4 mg 08-21 14:00: 00 Yes .4mg 0.4 mg, Oral, DAILY, First dose on Wed08/22/23 at 0900, Until Discontinu ed, Routine [facility] docusate (COLACE) capsule 100 mg 08-21 13:00: 00 Yes 100mg 100 mg, Oral, BID, First dose on Wed08/22/23 at 0800, Until Discontinu ed, Routine [facility] heparin (porcine) injection 5,000 Units 08-21 13:00: 00 Yes 5000U 5,000 Units, Subcutaneo us, Q12H, First dose on Wed08/22/23 at 0800, Until Discontinu ed, Routine [facility] D5W 0.45% NaCl (1/2NS) IV infusion 1,000 mL 08-21 06:15: 00 08-21 16:44 :38 No 1000mL at 100 mL/hr, 1,000 mL, IV Infusion, CONTINUOUS , Starting on Wed08/22/23 at 0115, Until Wed08/22/23 at 1144, Routine [facility] D5W 0.45% NaCl (1/2NS) Bolus infusion 1,000 mL 08-21 06:00: 00 08-21 06:21 :00 No 1000mL at 999 mL/hr, 1,000 mL, IV Infusion, ONCE, 1 dose, On Wed08/22/23 at 0100, Routine [facility] NaCl 0.9% (NS) bolus infusion 1,000 mL 08-21 04:15: 00 08-21 05:05 :00 No 1000mL at 999 mL/hr, 1,000 mL, IV Infusion, ONCE, 1 dose, On 08/21/23 at 2315, STAT [facility] bisacodyL (DULCOLAX) tablet 10 mg 08-21 04:02: 51 Yes 10mg 10 mg, Oral, QDAILYPRN, Starting on 08/21/23 at 2302, Until Discontinu ed, Routine, Constipati on [facility] ondansetron (ZOFRAN (PF)) injection 4 mg 08-21 04:02: 17 Yes 4mg 4 mg, Slow IV Push, Q6HPRN, Starting on 08/21/23 at 2302, Until Discontinu ed, Routine, Nausea and Vomiting (N/V) [facility] FENTanyl PF (SUBLIMAZE (PF)) injection 12.5 mcg 08-21 04:02: 09 08-22 04:01 :09 No 12.5ug 12.5 mcg, Slow IV Push, Q6HPRN, Starting on 08/21/23 at 2302, Until 08/22/23 at 2301, Routine, Pain (scale 7-10), Pain (scale 4-6) [facility] acetaminoph en (TYLENOL) tablet 650 mg 08-21 04:01: 56 Yes 650mg 650 mg, Oral, Q6HPRN, Starting on 08/21/23 at 2301, Until Discontinu ed, Routine, Pain (scale 1-3) [facility] magnesium citrate solution 296 mL 08-21 01:45: 00 08-21 01:25 :00 No 296mL 296 mL, Oral, ONCE, 1 dose, On 08/21/23 at 2045, Routine [facility] amLODIPine 5 mg tablet 08-16 00:00: 00 08-23 00:00 :00 No [id number] 5mg Take 1 tablet by mouth in the morning for 30 days. [facility] lactulose (CEPHULAC) solution 45 mL 08-15 15:45: 00 08-15 15:21 :00 No 45mL 45 mL, Oral, ONCE, 1 dose, On Wed08/16/23 at 1045, Routine [facility] amLODIPine (NORVASC) tablet 5 mg 08-15 14:00: 00 Yes 5mg 5 mg, Oral, DAILY, First dose on Wed08/16/23 at 0900, Until Discontinu ed, Routine [facility] sennosides (SENOKOT) tablet 8.6 mg 08-15 14:00: 00 Yes 8.6mg 8.6 mg, Oral, DAILY, First dose on Wed08/16/23 at 0900, Until Discontinu ed, Routine [facility] losartan (COZAAR) tablet 25 mg 08-15 14:00: 00 Yes 25mg 25 mg, Oral, DAILY, First dose (after last modificati on) on Wed08/16/23 at 0900, Until Discontinu ed, Routine [facility] docusate (COLACE) capsule 100 mg 08-15 13:00: 00 Yes 100mg 100 mg, Oral, BID, First dose on Wed08/16/23 at 0800, Until Discontinu ed, Routine [facility] lactulose (CEPHULAC) solution 30 mL 08-15 10:00: 00 08-15 09:33 :00 No 30mL 30 mL, Oral, ONCE, 1 dose, On Wed08/16/23 at 0500, Routine [facility] metFORMIN 500 mg 24 hr tablet 08-15 00:00: 00 08-23 00:00 :00 No [id number] 500mg Take 1 tablet by mouth in the morning and 1 tablet in the evening. Take with meals. Do all this for 30 days. [facility] acarbose 25 mg tablet 08-15 00:00: 00 08-23 00:00 :00 No [id number] 25mg Take 1 tablet by mouth in the morning and 1 tablet at noon and 1 tablet in the evening. Take with meals. Do all this for 30 days. [facility] pioglitazon e 15 mg tablet 08-15 00:00: 00 08-23 00:00 :00 No [id number] 15mg Take 1 tablet by mouth in the morning for 30 days. [facility] tamsulosin 0.4 mg 24 hr capsule 08-15 00:00: 00 08-23 00:00 :00 No [id number] .4mg Take 1 capsule by mouth in the morning for 30 days. [facility] losartan 25 mg tablet 08-15 00:00: 00 08-23 00:00 :00 No [id number] 25mg Take 1 tablet by mouth in the morning for 30 days. [facility] glipiZIDE (GLUCOTROL) tablet 5 mg 08-14 21:30: 00 Yes 5mg 5 mg, Oral, BIDAC, First dose on 08/15/23 at 1630, Until Discontinu ed, Routine [facility] KCL (KLOR-CON M20) tablet 40 mEq 08-14 21:30: 00 08-14 21:21 :00 No 40meq 40 mEq, Oral, ONCE, 1 dose, On 08/15/23 at 1630, Routine [facility] pioglitazon e (ACTOS) tablet 7.5 mg 08-14 17:00: 00 08-15 12:47 :51 No 7.5mg 7.5 mg, Oral, DAILY, First dose on 08/15/23 at 1200, Until Discontinu ed, Routine [facility] tamsulosin (FLOMAX) capsule 0.4 mg 08-14 15:49: 00 Yes .4mg 0.4 mg, Oral, DAILY, First dose on 08/15/23 at 1100, Until Discontinu ed, Routine [facility] amLODIPine (NORVASC) tablet 10 mg 08-14 14:00: 00 08-14 15:51 :30 No 10mg 10 mg, Oral, DAILY, First dose on 08/15/23 at 0900, Until Discontinu ed, Routine [facility] heparin (porcine) injection 5,000 Units 08-14 03:00: 00 08-14 06:07 :44 No 5000U 5,000 Units, Subcutaneo us, Q8H, First dose on 08/14/23 at 2200, Until Discontinu ed, Routine [facility] Sliding Scale Insulin - Lispro (HumaLOG) 08-14 02:00: 00 08-14 18:06 :14 No Subcutaneo us, TID MEALS+HS, First dose on 08/14/23 at 2100, Until Discontinu ed, Routine [facility] glucagon (GLUCAGEN DIAGNOSTIC KIT) injection 1 mg 08-14 00:36: 37 Yes 1mg 1 mg, Intramuscu lar, PRN, Starting on 08/14/23 at 1936, Until Discontinu ed, HAO, Blood Glucose < or = 70 mg/dL and patient is NPO, unable to swallow or has mental changes. [facility] dextrose 50 % in water (D50W) injection 25 mL 08-14 00:36: 37 Yes 25mL 25 mL, Slow IV Push, PRN, Starting on 08/14/23 at 1936, Until Discontinu ed, HAO, Blood Glucose < or = 70 mg/dL and patient is NPO, unable to swallow or has mental status changes. [facility] acetaminoph en (TYLENOL) tablet 650 mg 08-14 00:36: 24 Yes 650mg 650 mg, Oral, Q6HPRN, Starting on 08/14/23 at 1936, Until Discontinu ed, Routine, Pain (scale 1-3) [facility] aspirin chewable tablet 324 mg 08-13 23:15: 00 08-13 22:56 :00 No [id number] 324mg 324 mg, Oral, ONCE, 1 dose, On 08/14/23 at 1815, [facility] lidocaine 2% viscous (LIDOCAINE VISCOUS) 2 % solution 15 mL 08-13 23:00: 00 08-13 22:10 :00 No [id number] 15mL 15 mL, Oral, ONCE, 1 dose, On 08/14/23 at 1800, Routine [facility] KCL (KLOR-CON M20) tablet 20 mEq 08-13 22:30: 00 08-13 22:59 :00 No [id number] 20meq 20 mEq, Oral, ONCE, 1 dose, On 08/14/23 at 1730, [facility] metoprolol tartrate (LOPRESSOR) tablet 50 mg 08-13 22:00: 00 08-13 22:58 :00 No [id number] 50mg 50 mg, Oral, ONCE, 1 dose, On 08/14/23 at 1700, [facility] iopamidol (ISOVUE 370-500 mL) injection 80 mL 08-13 21:30: 00 08-13 21:45 :00 No [id number] 80mL 80 mL, Intravenou s, ONCE, 1 dose, On 08/14/23 at 1645, Routine [facility] acetaminoph en (TYLENOL) tablet 650 mg 08-13 21:15: 00 08-13 22:57 :00 No [id number] 650mg 650 mg, Oral, ONCE, 1 dose, On 08/14/23 at 1615, [facility] amLODIPine (NORVASC) tablet 5 mg 08-13 21:15: 00 08-13 22:58 :00 No [id number] 5mg 5 mg, Oral, ONCE, 1 dose, On 08/14/23 at 1615, [facility] NaCl 0.9% (NS) bolus infusion 1,000 mL 08-13 21:15: 00 08-13 21:50 :00 No [id number] 1000mL at 999 mL/hr, 1,000 mL, IV Infusion, ONCE, 1 dose, On 08/14/23 at 1615, HAO [facility] insulin NPH (HUMULIN N) injection 9 Units 2022-04 14:00: 00 Yes 9U 9 Units, Subcutaneo us, QAM WITH BREAKFAST, First dose (after last modificati on) on 04/24/23 at 0800, Until Discontinu ed, Routine [facility] losartan 25 mg tablet 2022-04 00:00: 00 08-15 00:00 :00 No [id number] 25mg Take 1 tablet by mouth in the morning. [facility] tamsulosin (FLOMAX) 0.4 mg 24 hr capsule 2022-04 00:00: 00 08-15 00:00 :00 No [id number] .4mg Take 1 capsule by mouth in the morning. [facility] metFORMIN 500 mg tablet 2022-04 00:00: 00 05-23 05:59 :00 No [id number] Take 1 tablet by mouth 2 (two) times daily with meals for 7 days, THEN 2 tablets 2 (two) times daily with meals for 21 days. [facility] insulin lispro (human) (HumaLOG U-100) injection 3 Units 2022-04 23:00: 00 Yes 3U 3 Units, Subcutaneo us, TID MEALS, First dose (after last modificati on) on Wed04/23/23 at 1700, Until Discontinu ed, Routine [facility] insulin NPH (HUMULIN N) injection 5 Units 2022-04 23:00: 00 Yes 5U 5 Units, Subcutaneo us, QPM, First dose (after last modificati on) on Wed04/23/23 at 1700, Until Discontinu ed, Routine [facility] losartan (COZAAR) tablet 25 mg 2022-04 15:00: 00 Yes 25mg 25 mg, Oral, DAILY, First dose on Wed04/23/23 at 0900, Until Discontinu ed, Routine [facility] Potassium Bicarb-Citr ic Acid (EFFER-K) effervescen t tablet 40 mEq 2022-04 13:00: 00 04-23 13:33 :00 No 40meq 40 mEq, Oral, ONCE, 1 dose, On Wed04/23/23 at 0700, Routine [facility] ramelteon (ROZEREM) tablet 8 mg 2022-04 10:45: 00 04-23 10:51 :00 No 8mg 8 mg, Oral, ONCE NOW, 1 dose, On Wed04/23/23 at 0500, Routine [facility] Blood-Gluco se Meter (ACCU-CHEK GUIDE GLUCOSE METER) [facility] 2022-04 00:00: 00 Yes [id number] Use as directed [facility] lancets 33 gauge [facility] 2022-04 00:00: 00 Yes [id number] Use as directed [facility] blood sugar diagnostic (ACCU-CHEK GUIDE TEST STRIPS) strip 2022-04 00:00: 00 Yes [id number] Use as directed [facility] pioglitazon e 15 mg tablet 2022-04 00:00: 00 08-15 00:00 :00 No [id number] 7.5mg Take 0.5 tablets by mouth in the morning. [facility] acarbose 25 mg tablet 2022-04 00:00: 00 08-15 00:00 :00 No [id number] 25mg Take 1 tablet by mouth in the morning and 1 tablet at noon and 1 tablet in the evening. Take with meals. [facility] atorvastati n 80 mg tablet 2022-04 00:00: 00 05-24 05:59 :00 No [id number] 80mg Take 1 tablet by mouth at bedtime for 30 days. [facility] glipiZIDE 5 mg tablet 2022-04 00:00: 00 05-24 05:59 :00 No [id number] 5mg Take 1 tablet by mouth 2 (two) times daily before breakfast and dinner for 30 days. [facility] enoxaparin (LOVENOX) injection 40 mg 2022-04 15:00: 00 Yes 40mg 40 mg, Subcutaneo us, DAILY, First dose on Wed04/22/23 at 0900, Until Discontinu ed, Routine [facility] insulin NPH (HUMULIN N) injection 8 Units 2022-04 14:00: 00 04-23 19:10 :37 No 8U 8 Units, Subcutaneo us, QAM WITH BREAKFAST, First dose on Wed04/22/23 at 0800, Until Discontinu ed, Routine [facility] insulin NPH (HUMULIN N) injection 4 Units 2022-04 23:00: 00 04-23 19:10 :37 No 4U 4 Units, Subcutaneo us, QPM, First dose on Wed04/21/23 at 1700, Until Discontinu ed, Routine [facility] insulin lispro (human) (HumaLOG U-100) injection 2 Units 2022-04 23:00: 00 04-23 19:10 :37 No 2U 2 Units, Subcutaneo us, TID MEALS, First dose (after last modificati on) on Wed04/21/23 at 1700, Until Discontinu ed, Routine [facility] NaCl 0.9% (NS) IV infusion 250 mL 2022-04 21:15: 00 04-22 20:03 :10 No [id number] 250mL at 20 mL/hr, IV Infusion, CONTINUOUS , Starting on Wed04/21/23 at 1515, Until Wed04/22/23 at 1403, Routine
To keep vein open
[facility] perflutren lipid microsphere s (DEFINITY) injection 2 mL 2022-04 21:00: 00 04-21 20:15 :00 No [id number] 2mL 2 mL, IV Push, ONCE, 1 dose, On Wed04/21/23 at 1500, Routine [facility] atropine injection 1 mg 2022-04 21:00: 00 04-21 20:44 :00 No [id number] 1mg 1 mg, Slow IV Push, ONCE, 1 dose, On Wed04/21/23 at 1500, Routine [facility] DOBUTamine (DOBUTREX) 250 mg/250 mL RTU infusion 2022-04 20:13: 51 04-22 20:03 :10 No [id number] 5ug/kg/ min 5 mcg/kg/min ?59 kg (17.7 [...] the Dobutamine infusion. (see Adjunctive Therapy)<b r> [facility] perflutren protein-A microsphr (OPTISON) injection 3 mL 2022-04 17:15: 00 04-21 15:22 :00 No [id number] 3mL 3 mL, IV Push, ONCE, 1 dose, On Wed04/21/23 at 1115, Routine [facility] potassium chloride in water 10 mEq/100 mL RTU 10 mEq 2022-04 17:00: 00 04-21 20:59 :00 No 10meq 10 mEq, IV Piggyback, Q1H, 4 doses, First dose (after last reorder) on Wed04/21/23 at 1100, Last dose on Wed04/21/23 at 1400, Administer over 60 Minutes, 100 mL [facility] tamsulosin (FLOMAX) capsule 0.4 mg 2022-04 15:00: 00 Yes .4mg 0.4 mg, Oral, DAILY, First dose on Wed04/21/23 at 0900, Until Discontinu ed, Routine [facility] aspirin chewable tablet 81 mg 2022-04 15:00: 00 04-22 16:28 :38 No 81mg 81 mg, Oral, DAILY, First dose on Wed04/21/23 at 0900, Until Discontinu ed, Routine [facility] aspirin tablet 325 mg 2022-04 15:00: 00 04-21 06:21 :21 No 325mg 325 mg, Oral, DAILY, First dose on Wed04/21/23 at 0900, Until Discontinu ed, Routine [facility] Sliding Scale Insulin - Lispro (HumaLOG) 2022-04 14:00: 00 Yes Subcutaneo us, TID MEALS+HS, First dose on Wed04/21/23 at 0800, Until Discontinu ed, Routine [facility] magnesium sulfate in water 2 gram/50 mL (4 %) infusion 2 g 2022-04 12:30: 00 04-21 15:11 :00 No 2g 2 g, IV Piggyback, Administer over 60 Minutes, ONCE, 1 dose, On Wed04/21/23 at 0630, Routine [facility] Potassium Bicarb-Citr ic Acid (EFFER-K) effervescen t tablet 40 mEq 2022-04 12:30: 00 04-21 12:36 :00 No 40meq 40 mEq, Oral, ONCE, 1 dose, On Wed04/21/23 at 0630, Routine [facility] insulin glargine (LANTUS U-100) injection 9 Units 2022-04 07:45: 00 04-21 21:08 :08 No .15U/kg /d 9 Units (rounded from 8.745 Units = 0.15 Units/kg/d ay ?58.3 kg), Subcutaneo us, QHS, First dose (after last modificati on) on Wed04/21/23 at 0145, Until Discontinu ed, Routine [facility] atorvastati n (LIPITOR) tablet 80 mg 2022-04 06:30: 00 Yes 80mg 80 mg, Oral, QHS, First dose on Wed04/21/23 at 0030, Until Discontinu ed, Routine [facility] dextrose 50 % in water (D50W) injection 25 mL 2022-04 06:24: 50 Yes 25mL 25 mL, Slow IV Push, PRN, Starting on Wed04/21/23 at 0024, Until Discontinu ed, HAO, Blood Glucose < or = 70 mg/dL and patient is NPO, unable to swallow or has mental status changes. [facility] acetaminoph en (TYLENOL) tablet 650 mg 2022-04 05:53: 21 Yes 650mg 650 mg, Oral, Q6HPRN, Starting on Wed04/20/23 at 2353, Until Discontinu ed, Routine, Pain (scale 1-3) [facility] NaCl 0.9% (NS) bolus infusion 1,000 mL 2022-04 04:00: 00 04-21 03:45 :00 No 1000mL at 999 mL/hr, 1,000 mL, IV Infusion, ONCE, 1 dose, On Wed04/20/23 at 2200, STAT [facility] clopidogreL (PLAVIX) 300 mg tablet 300 mg 2022-04 03:30: 00 04-21 02:50 :00 No 300mg 300 mg, Oral, ONCE, 1 dose, On Wed04/20/23 at 2130, HAO [facility] HEPARIN SODIUM (PORCINE) 1,000 UNIT/ML BOLUS ACS ORDER SET 2022-04 02:45: 00 04-21 02:53 :00 No 60U/kg 3,540 Units (60 Units/kg ?59 kg), IV Push, ONCE, 1 dose, On Wed04/20/23 at 204, HAO [facility] heparin 25,000 Units/250 mL (Premixed [...] Rang e, Dosing and Testing: &nbs p;FOR [facility], AND [facility] ONLY &nbs p; - aPTT [...] INITIAL BOLUS OR INITIAL INFUSION RATE.
[facility] Vital Signs Vital Name Observation Time Observation Value Comments S ource Systolic blood pressure 2023-08-24 13:02:00 150 mm[Hg] [facility] Diastolic blood pressure 2023-08-24 13:02:00 88 mm[Hg] [facility] Heart rate 2023-08-24 13:02:00 79 /min [facility] acute hospital Body temperature 2023-08-24 13:02:00 36.44 Deya [facility] Respiratory rate 2023-08-24 13:02:00 14 /min [facility] Oxygen saturation in Arterial blood by Pulse oximetry 2023-08-24 13:02:00 98 /min [facility] Body weight 2023-08-24 08:43:00 58.469 kg [facility] BMI 2023-08-24 08:43:00 22.83 kg/m2 [facility] Body height 2023-08-22 04:52:00 160 cm [facility] Systolic blood pressure 2023-08-16 16:53:00 154 mm[Hg] [facility] Diastolic blood pressure 2023-08-16 16:53:00 94 mm[Hg] [facility] Heart rate 2023-08-16 16:53:00 82 /min [facility] Body temperature 2023-08-16 16:53:00 36.61 Deya [facility] Respiratory rate 2023-08-16 16:53:00 16 /min [facility] Oxygen saturation in Arterial blood by Pulse oximetry 2023-08-16 16:53:00 99 /min [facility] Body weight 2023-08-16 09:56:00 56.473 kg [facility] BMI 2023-08-16 09:56:00 22.05 kg/m2 [facility] Body height 2023-08-15 04:07:00 160 cm [facility] Systolic blood pressure 2023-04-23 18:11:00 141 mm[Hg] [facility] Diastolic blood pressure 2023-04-23 18:11:00 80 mm[Hg] [facility] Heart rate 2023-04-23 18:11:00 101 /min [facility] hospital Body temperature 2023-04-23 18:11:00 35.89 Deya [facility] Respiratory rate 2023-04-23 18:11:00 18 /min [facility] Oxygen saturation in Arterial blood by Pulse oximetry 2023-04-23 18:11:00 98 /min [facility] Body weight 2023-04-22 09:57:00 57.561 kg [facility] BMI 2023-04-22 09:57:00 22.48 kg/m2 [facility] Body height 2023-04-21 20:00:00 160 cm [facility] Procedures Procedure Date / Time Performed Performing Clinician Source PATIENT AGREEMENTS AND CONTRACTS 2023-11-12 20:14:31 Doctor Unassigned, [place] [facility] POCT GLUCOSE (AUTOMATED) 2023-08-24 16:13:00 Jami Banda [facility] POCT GLUCOSE (AUTOMATED) 2023-08-24 12:34:00 Jami Banda [facility] BASIC METABOLIC PANEL (NA, K, CL, CO2, GLUCOSE, BUN, CREATININE, CA) 2023-08-24 08:42:00 Jerry Fields [facility] CBC WITH DIFF 2023-08-24 08:42:00 Jerry Fields [facility] POCT GLUCOSE (AUTOMATED) 2023-08-24 05:46:00 Jami Banda [facility] BASIC METABOLIC PANEL (NA, K, CL, CO2, GLUCOSE, BUN, CREATININE, CA) 2023-08-24 01:37:00 Jerry Fields [facility] POCT GLUCOSE (AUTOMATED) 2023-08-24 01:27:00 Jami Banda [facility] POCT GLUCOSE (AUTOMATED) 2023-08-23 21:29:00 Jami Banda [facility] BASIC METABOLIC PANEL (NA, K, CL, CO2, GLUCOSE, BUN, CREATININE, CA) 2023-08-23 17:41:00 Jerry Fields [facility] POCT GLUCOSE (AUTOMATED) 2023-08-23 16:42:00 Jami Banda [facility] POCT GLUCOSE (AUTOMATED) 2023-08-23 12:36:00 Jami Banda [facility] POCT GLUCOSE (AUTOMATED) 2023-08-23 09:09:00 Jami Banda. [facility] MAGNESIUM 2023-08-23 08:23:00 Jerry Fields [facility] BASIC METABOLIC PANEL (NA, K, CL, CO2, GLUCOSE, BUN, CREATININE, CA) 2023-08-23 08:23:00 Jerry Fields [facility] CBC WITH DIFF 2023-08-23 08:23:00 Donnie, Jerry [facility] POCT GLUCOSE (AUTOMATED) 2023-08-23 04:52:00 Jami Banda [facility] POCT GLUCOSE (AUTOMATED) 2023-08-23 00:42:00 Jami Banda [facility] BASIC METABOLIC PANEL (NA, K, CL, CO2, GLUCOSE, BUN, CREATININE, CA) 2023-08-23 00:38:00 Jerry Fields [facility] POCT GLUCOSE (AUTOMATED) 2023-08-22 21:18:00 Jami Banda [facility] URIC ACID 2023-08-22 19:21:00 Alyssa Cain [facility] PROTEIN CREAT RATIO URINE RANDOM 2023-08-22 19:21:00 Alyssa Cain [facility] CORTISOL AM 2023-08-22 19:20:00 Alyssa Cain [facility] BASIC METABOLIC PANEL (NA, K, CL, CO2, GLUCOSE, BUN, CREATININE, CA) 2023-08-22 13:21:00 Lyubov Banda [facility] LACTIC ACID WHOLE BLOOD 2023-08-22 09:16:00 Loreta Banda mmad [facility] MAGNESIUM 2023-08-22 08:30:00 Lyubov Banda [facility] TROPONIN I 2023-08-22 08:30:00 Lyubov Banda [facility] CBC WITH DIFF 2023-08-22 08:30:00 [facility] 2023-08-22 08:30:00 Lyubov Banda [facility] PHOSPHORUS 2023-08-22 04:01:00 Lyubov Banda [facility] BASIC METABOLIC PANEL (NA, K, CL, CO2, GLUCOSE, BUN, CREATININE, CA) 2023-08-22 04:01:00 Cosme Cardona [facility] URINALYSIS 2023-08-22 01:52:00 Cardona, [facility] CT ABDOMEN PELVIS WO CONTRAST 2023-08-22 01:26:17 Singer Kell [facility] CREATINE KINASE 2023-08-22 01:24:00 Lyubov Banda [facility] LIPASE 2023-08-22 01:24:00 Singer [facility] COMP. METABOLIC PANEL (94006) 2023-08-22 01:24:00 Singer [facility] CBC WITH DIFF 2023-08-22 01:24:00 Singer [facility] POCT GLUCOSE (AUTOMATED) 2023-08-16 21:51:00 Yue [...] [facility] TROPONIN I 2023-08-15 10:41:00 [facility] BASIC METABOLIC PANEL (NA, K, CL, CO2, GLUCOSE, BUN, CREATININE, CA) 2023-08-15 10:41:00 Shanice [facility] CBC WITH DIFF 2023-08-15 10:41:00 Shanice [facility] PROSTATIC SPECIFIC ANTIGEN 2023-08-15 05:32:00 Shanice [facility] TROPONIN I 2023-08-15 05:32:00 Shanice [facility] POCT GLUCOSE (AUTOMATED) 2023-08-15 04:03:00 Yue Fields [facility] URINALYSIS 2023 22:15:00 Rosmery [facility] XR CHEST 1 VW 2023 21:46:[address] [facility] [address] ABDOMEN PELVIS W CONTRAST 2023 21:34:[address] [facility] CT TRAUMA HEAD WO CONTRAST 2023 21:33:[address] [facility] HB ECG ROUTINE & RHYTHM STRIP 2023 21:10:[address] [facility] PHOSPHORUS 2023 20:47:00 Rosmery [facility] CREATINE KINASE 2023 20:47:00 [facility]IP[facility] 2023 20:47:00 Rosmery [facility] MAGNESIUM 2023 20:47:00 Rosmery [facility] BETA HYDROXY-BUTYRATE 2023 20:47:00 Farida Reynaga [facility] TROPONIN I 2023 20:47:00 Rosmery [facility] COMP. METABOLIC PANEL ([id number]) 2023 20:47:[address] [facility] CBC WITH DIFF 2023 20:47:00 [facility] GLYCOSYLATED HEMOGLOBIN (A1C) 2023 20:47:00 Jerry Fields [facility] N-TERMINAL PRO-BNP 2023 20:47:00 Michael Reynaga [facility] ACUTE CARE VENOUS BLOOD GAS 2023 20:46:[address] [facility] LACTIC ACID WHOLE BLOOD 2023 20:46:00 Kian Reynaga [facility] POCT GLUCOSE(AGE >30DAYS) 2023 20:26:[address] [facility] POCT GLUCOSE (AUTOMATED) 2023 20:23:00 Dalmedo, [facility] POCT GLUCOSE (AUTOMATED) 2023-04-23 18:09:00 Brien Banda [facility] POCT GLUCOSE (AUTOMATED) 2023-04-23 15:32:00 Brien Banda [facility] MAGNESIUM 2023-04-23 09:09:00 Chet Echavarria [facility] BASIC METABOLIC PANEL (NA, K, CL, CO2, GLUCOSE, BUN, CREATININE, CA) 2023-04-23 09:09:00 Chet Echavarria [facility] POCT GLUCOSE (AUTOMATED) 2023-04-23 02:56:00 [facility] 2023-04-23 00:32:00 Solo [facility] POCT GLUCOSE (AUTOMATED) 2023-04-22 22:43:00 Solo [facility] POCT GLUCOSE (AUTOMATED) 2023-04-22 20:36:00 Solo [facility] POCT GLUCOSE (AUTOMATED) 2023-04-22 17:44:00 Solo [facility] POCT GLUCOSE (AUTOMATED) 2023-04-22 13:41:00 Solo [facility] MAGNESIUM 2023-04-22 10:37:00 Daja Aaliyah [facility] BASIC METABOLIC PANEL (NA, K, CL, CO2, GLUCOSE, BUN, CREATININE, CA) 2023-04-22 10:37:00 Aaliyah Farnsworth [facility] CBC WITH DIFF 2023-04-22 10:37:00 Daja Aaliyah [facility] POCT GLUCOSE (AUTOMATED) 2023-04-22 03:32:00 Solo [facility] POCT GLUCOSE (AUTOMATED) 2023-04-22 01:34:00 Solo [facility] COMPLETE ECHOCARDIOGRAM DOBUTAMINE STRESS TEST W CONTRAST 2023-04-21 21:15:00 [facility] 2023-04-21 17:36:00 Banda, [facility] ACTIVATED PARTIAL THRMPLAS JERMAINE 2023-04-21 16:47:00 Sergio Aponte [facility] TRANSTHORACIC ECHO (TTE) COMPLETE W/ CONTRAST 2023-04-21 15:26:00 Kylie Fuchs Noel [facility] TROPONIN I 2023-04-21 12:39:00 Víctor Fuchs ampryue [facility] POCT GLUCOSE (AUTOMATED) 2023-04-21 09:39:00 Brien Banda [facility] MAGNESIUM 2023-04-21 09:10:00 Víctor Fuchs havanayue [facility] BASIC METABOLIC PANEL (NA, K, CL, CO2, GLUCOSE, BUN, CREATININE, CA) 2023-04-21 09:10:00 Tavia Fuchsmad [facility] LIPID PANEL (99021)(TOTAL CHOLESTEROL, TRIGLYCERIDES, HDL) 2023-04-21 09:10:00 Tavia Fuchsmad [facility] CBC WITH DIFF 2023-04-21 09:10:00 Víctor Fuchs havanauye [facility] ACTIVATED PARTIAL THRMPLAS JERMAINE 2023-04-21 09:10:00 Sergio Aponte [facility] XR CHEST 1 VW 2023-04-21 06:53:47 Víctor Fuchs ampryue [facility] TROPONIN I 2023-04-21 06:32:00 Víctor Fuchs havanayue [facility] IRON PANEL 2023-04-21 06:32:00 Víctor Fuchs havanayue [facility] N-TERMINAL PRO-BNP 2023-04-21 06:32:00 Kylie Fuchs [facility] CRITICAL CARE 2023-04-21 02:54:15 Sergio Aponte [facility] PROTHROMBIN TIME / INR 2023-04-21 02:44:00 Enrique Aponte [facility] ACTIVATED PARTIAL THRMPLAS JERMAINE 2023-04-21 02:44:00 Sergio Aponte [facility] URINALYSIS 2023-04-21 02:33:00 [facility] PROTEIN CREAT RATIO URINE RANDOM 2023-04-21 02:33:00 Kylie Fuchs [facility] URINE DRUG (IMMUNOASSAY) - COMPREHENSIVE DRUG SCREEN W/O REFLEX 2023-04-21 02:33:00 Sergio Aponte [facility] PHOSPHORUS 2023-04-21 01:55:00 Víctor Fuchs Noel [facility] FERRITIN SERUM 2023-04-21 01:55:00 Víctor Fuchs [facility] TROPONIN I 2023-04-21 01:55:00 [facility] THYROID STIMULATING HORMONE 2023-04-21 01:55:00 Kylie Fuchs Noel [facility] COMP. METABOLIC PANEL (92073) 2023-04-21 01:55:00 Sergio Aponte [facility] ETHANOL 2023-04-21 01:55:00 Sergio Aponte [facility] CBC WITH DIFF 2023-04-21 01:55:00 Sergio Aponte [facility] GLYCOSYLATED HEMOGLOBIN (A1C) 2023-04-21 01:55:00 Kylie Fuchs Noel [facility] POCT GLUCOSE (AUTOMATED) 2023-04-21 01:54:00 Yue Aponte [facility] EKG-12 LEAD 2023-04-21 01:51:41 Bret Banda [facility] Encounters Start Date/Time End Date/Time Encounter Type Admission Type Attending Clinicians Care Facility Care Department Encounter ID Source 2023-11-12 00:00:00 2024-06-10 07:16:20 Orders Only Doctor Unassigned, [place] Doctor Unassigned, [place] [facility] [id number] 350.1.13.10 4.2.7.2.686 [id number] [facility] 2023-08-21 19:47:00 2023-08-24 16:32:00 Hospital Encounter Cosme Cardona Mohammad A. [facility] 1.2840.114 350.1.13.10 4.2.7.2.686 [id number] [facility] 2023-08-20 00:00:00 2023-08-20 00:00:00 Patient Outreach Rosalie Irizarry LYNN BAEZ 1.2840.114 350.1.13.10 4.2.7.2.686 [id number] [facility] 2023-08-17 00:00:00 2023-08-17 00:00:00 Telephone Ricky Rivera [facility] 1.0.114 350.1.13.10 4.2.7.2.686 [id number] [facility] 2023 14:42:00 2023-08-16 18:40:00 Hospital Encounter Umang Reynaga David Oville, Jelani [facility] 1.0.114 350.1.13.10 4.2.7.2.686 [id number] [facility] 2023-04-27 00:00:00 2023-04-27 00:00:00 Transition of Care López Jeannette LYNN BAEZ 1.840.114 350.1.13.10 4.2.7.2.686 [id number] [facility] 2023-04-20 19:48:00 2023-04-23 19:54:00 Inpatient PARVEZ NUNEZ [facility] [id number] [facility] 2023-04-20 19:48:00 2023-04-23 19:54:00 Hospital Encounter Sergio Aponte Rizwan Dacso, Matthew M [facility] 1.840.114 350.1.13.10 4.2.7.2.686 [id number] [facility] Results Test Description Test Time Test Comments Results Resul t Comments Source PATIENT AGREEMENTS AND CONTRACTS 2023-11-12 20:14:31 Ordered by an unspecified provider. [facility] 12:35:27* Test Item Value Reference Range Interpretation Comme nts POCT GLU (test code = 2226012996) 204 mg/dL 70-110 H Lab Interpretation (test cod e = 69671-0) Abnormal [facility] Metabolic Panel (NA, K, CL, CO2, GLUCOSE, BUN, CREATININE, CA)2023-08-24 09:45:39* Test Item Value Reference Range Interpretation Comme nts NA (test code = 2781531896) 133 mmol/L 135-145 L K (test code = 5628844973) 3.7 mmol/L 3.5-5.0 CL (test code = 9519176677) 98 mmol/L 98-108 CO2 TOTAL (test code = 9932755388) 27 mmol/L 23-31 AGAP (test code = 0070768129) 8 2-16 BUN (test code = 8199509517) 13 mg/dL 7-23 GLUCOSE (test code = 2471570662) 188 mg/dL 70-110 H CREATININE (test code = 2160-0) 0.63 mg/dL 0.60-1.25 CALCIUM (test code = 6134114785) 9.4 mg/dL 8.6-10.6 eGFR (test code = 49125-2) 111.6 mL/min/1.73m2 CKD-EPI eGFR (2020). Assuming creatinine has been stable day-to-day for at least three months, the eGFR indicates Category G1 (>= 90 mL/min/1.73 m2) Lab Interpretation (test code = 39774-8) Abnormal [facility] [id number] 09:21:26* Test Item Value Reference Range Interpretation [...] g/dL 31.2-35.0 H RDW-SD (test code = 61243-9) 36.9 fL 38.5-51.6 L RDW-CV (test code = 788-0) 11.6 % 12.1-15.4 L PLT (test code = 777-3) 407 150-328 H MPV (test code = 43446-5) 9.5 fL 9.8-13.0 L NRBC/100 WBC (test code = 0117284730) 0.0 0.0-10.0 NRBC x10^3 (test code = 7027917654) See_Comment [Automated messa ge] The system which generated this result transmitted reference range: 10*3/?L. The reference range was not used to interpret this result as normal/abnormal. GRAN MAT (NEUT) % (test code = 770-8) 63.1 % IMM GRAN % (test code = 5562142391) 0.30 % LYMPH % (test code = 736-9) 21.1 % MONO % (test code = 5905-5) 8.3 % EOS % (test code = 713-8) 6.5 % BASO % (test code = 706-2) 0.7 % GRAN MAT x10^3(ANC) (test code = 6379524152) 3.71 10*3/uL 1.99-6.95 IMM GRAN x10^3 (test code = 2590516355) 0.00-0.06 LYMPH x10^3 (test code = 731-0) 1.24 10*3/uL 1.09-3.23 MONO x10^3 (test code = 742-7) 0.49 10*3/uL 0.36-1.02 EOS x10^3 (test code = 711-2) 0.38 10*3/uL 0.06-0.53 BASO x10^3 (test code = 704-7) 0.04 10*3/uL 0.01-0.09 Lab Interpretation (test code = 52353-0) Abnormal [facility] GLUCOSE (AUTOMATED)2023-08-24 05:47:46* Test Item Value Reference Range Interpretation Comme [facility] POCT GLU (test code = 0437158725) 126 mg/dL 70-110 H Lab Interpretation (test cod e = 08244-7) Abnormal [facility] Metabolic Panel (NA, K, CL, CO2, GLUCOSE, BUN, CREATININE, CA)2023-08-24 02:27:27* Test Item Value Reference Range Interpretation Comme nts NA (test code = 9973228500) 129 mmol/L 135-145 L K (test code = 8158513553) 3.9 mmol/L 3.5-5.0 CL (test code = 0122682473) 96 mmol/L 98-108 L CO2 TOTAL (test code = 1202413402) 29 mmol/L 23-31 AGAP (test code = 8009106343) 4 2-16 BUN (test code = 4726073287) 14 mg/dL 7-23 GLUCOSE (test code = 5675983202) 185 mg/dL 70-110 H CREATININE (test code = 2160-0) 0.56 mg/dL 0.60-1.25 L CALCIUM (test code = 5401220965) 9.2 mg/dL 8.6-10.6 eGFR (test code = 35802-7) 115.7 mL/min/1.73m2 CKD-EPI eGFR (2020). Assuming creatinine has been stable day-to-day for at least three months, the eGFR indicates Category G1 (>= 90 mL/min/1.73 m2) Lab Interpretation (test code = 75098-9) Abnormal [facility] GLUCOSE (AUTOMATED)2023-08-24 01:28:28* Test Item Value Reference Range Interpretation Comme [facility] POCT GLU (test code = 1812667304) 210 mg/dL 70-110 H Lab Interpretation (test cod e = 83276-1) Abnormal [facility] GLUCOSE (AUTOMATED)2023-08-23 21:30:04* Test Item Value Reference Range Interpretation Comme nts POCT GLU (test code = 7988166582) 149 mg/dL 70-110 H Lab Interpretation (test cod e = 49186-0) Abnormal [facility] GLUCOSE (AUTOMATED)2023-08-23 16:45:20* Test Item Value Reference Range Interpretation Comme nts POCT GLU (test code = 3825010080) 147 mg/dL 70-110 H Lab Interpretation (test cod e = 17171-7) Abnormal [facility] GLUCOSE (AUTOMATED)2023-08-23 12:36:56* Test Item Value Reference Range Interpretation Comme nts POCT GLU (test code = 7923909946) 131 mg/dL 70-110 H Lab Interpretation (test cod e = 53351-4) Abnormal [facility] GLUCOSE (AUTOMATED)2023-08-23 09:17:23* Test Item Value Reference Range Interpretation Comme nts POCT GLU (test code = 7642033762) 154 mg/dL 70-110 H Lab Interpretation (test cod e = 82849-6) Abnormal [facility] GLUCOSE (AUTOMATED)2023-08-23 05:03:01* Test Item Value Reference Range Interpretation Comme nts POCT GLU (test code = 8850824361) 183 mg/dL 70-110 H Lab Interpretation (test cod e = 44867-7) Abnormal [facility] Metabolic Panel (NA, K, CL, CO2, GLUCOSE, BUN, CREATININE, CA)2023-08-23 01:49:58* Test Item Value Reference Range Interpretation Comme nts NA (test code = 2785089809) 132 mmol/L 135-145 L K (test code = 6108562117) 4.1 mmol/L 3.5-5.0 CL (test code = 0161931890) 101 mmol/L 98-108 CO2 TOTAL (test code = 1860503504) 28 mmol/L 23-31 AGAP (test code = 4027241180) 3 2-16 BUN (test code = 4101947917) 17 mg/dL 7-23 GLUCOSE (test code = 2003776675) 149 mg/dL 70-110 H CREATININE (test code = 2160-0) 0.97 mg/dL 0.60-1.25 CALCIUM (test code = 0760067265) 8.4 mg/dL 8.6-10.6 L eGFR (test code = 04037-0) 91.6 mL/min/1.73m2 CKD-EPI eGFR (2020). Assuming creatinine has been stable day-to-day for at least three months, the eGFR indicates Category G1 (>= 90 mL/min/1.73 m2) Lab Interpretation (test code = 99873-8) Abnormal [facility] GLUCOSE (AUTOMATED)2023-08-23 00:43:06* Test Item Value Reference Range Interpretation Comme [facility] POCT GLU (test code = 2664360432) 126 mg/dL 70-110 H Lab Interpretation (test cod e = 77462-9) Abnormal [facility] HospitalCortisol [id number] 22:59:03* Test Item Value Reference Range Interpretation Comme [facility] IBRAHIMA AM (test code = 3020990706) 24.7 ug/dL 4.5-23.0 H GINA (test code = GINA) Biotin has been reported to cause a positive bias, interpret results relative to patient's use of biotin. Lab Interpretation (test code = 08037-8) Abnormal [facility] GLUCOSE (AUTOMATED)2023-08-22 21:29:10* Test Item Value Reference Range Interpretation Comme [facility] POCT GLU (test code = 5925959740) 341 mg/dL 70-110 H Lab Interpretation (test cod e = 69887-2) Abnormal [facility] HospitalUric [id number] 19:53:59* Test Item Value Reference Range Interpretation Comme [facility] URIC ACID (test code = 2630851845) 6.4 mg/dL 3.6-8.0 Lab Interpretation (test cod e = 09163-8) Normal [facility] (NA, K, CL, CO2, GLUCOSE, BUN, CREATININE, CA)2023-08-22 14:43:15* Test Item Value Reference Range Interpretation Comme nts NA (test code = 2995485584) 138 mmol/L 135-145 K (test code = 5596693074) 4.6 mmol/L 3.5-5.0 CL (test code = 5603495347) 102 mmol/L 98-108 CO2 TOTAL (test code = 7052025645) 28 mmol/L 23-31 AGAP (test code = 8812153227) 8 2-16 BUN (test code = 9747384239) 34 mg/dL 7-23 H GLUCOSE (test code = 3065521235) 224 mg/dL 70-110 H CREATININE (test code = 2160-0) 1.89 mg/dL 0.60-1.25 H CALCIUM (test code = 2926322130) 9.4 mg/dL 8.6-10.6 eGFR (test code = 58186-8) 41.1 mL/min/1.73m2 CKD-EPI eGFR (2020). Assuming creatinine has been stable day-to-day for at least three months, the eGFR indicates Category G3b (30 - 44 mL/min/1.73 m2) Lab Interpretation (test code = 09543-8) Abnormal [facility] Hospital[facility]ine [id number] 14:42:45* Test Item Value Reference Range Interpretation Comme nts CK (test code = 5519236901) 224 U/L 33-194 H Lab Interpretation (test cod e = 69383-7) Abnormal [facility] HospitalPhosphorus [id number] 12:10:01* Test Item Value Reference Range Interpretation Comme nts PHOSPHORUS (test code = 3275794001) 5.8 mg/dL 2.5-5.0 H Lab Interpretation (test cod e = 95917-1) Abnormal [facility] (NA, K, CL, CO2, GLUCOSE, BUN, CREATININE, CA)2023-08-22 04:41:19* Test Item Value Reference Range Interpretation Comme nts NA (test code = 7169704202) 124 mmol/L 135-145 L K (test code = 4368339661) 4.7 mmol/L 3.5-5.0 CL (test code = 8725459689) 93 mmol/L 98-108 L CO2 TOTAL (test code = 9415838535) 18 mmol/L 23-31 L AGAP (test code = 4741553734) 13 2-16 BUN (test code = 7034427623) 68 mg/dL 7-23 H GLUCOSE (test code = 2314670908) 116 mg/dL 70-110 H CREATININE (test code = 2160-0) 6.60 mg/dL 0.60-1.25 H CALCIUM (test code = 8071148978) 9.0 mg/dL 8.6-10.6 eGFR (test code = 25502-9) 9.2 mL/min/1.73m2 CKD-EPI eGFR (2020). Assuming creatinine has been stable day-to-day for at least three months, the eGFR indicates Category G5 (<= 14mL/min/1.73 m2) Lab Interpretation (test code = 39735-9) Abnormal [facility] P[facility] WO [id number] 02:22:05Exam: CT Abdomen and Pelvis without Contrast, [...] Subacute/chronic left-sided rib fractures.Soft tissues: Unremarkable.[facility] Hospital[facility] Metabolic Panel (19078) 2023-08-22 02:21:33* Test Item Value Reference Range Interpretation Comme nts NA (test code = 3944556674) 120 mmol/L 135-145 L K (test code = 7963898112) 4.8 mmol/L 3.5-5.0 CL (test code = 1216363209) 85 mmol/L 98-108 L CO2 TOTAL (test code = 0478321734) 21 mmol/L 23-31 L AGAP (test code = 2677228246) 14 2-16 BUN (test code = 1144069519) 70 mg/dL 7-23 H GLUCOSE (test code = 7477137786) 97 mg/dL 70-110 CREATININE (test code = 2160-0) 8.39 mg/dL 0.60-1.25 H TOTAL BILI (test code = 3762262534) 0.7 mg/dL 0.1-1.1 CALCIUM (test code = 1280868764) 8.8 mg/dL 8.6-10.6 T PROTEIN (test code = 1617464156) 7.2 g/dL 6.3-8.2 ALBUMIN (test code = 4075095168) 4.1 g/dL 3.5-5.0 ALK PHOS (test code = 4228350172) 95 U/L 34-122 ALTv (test code = 1742-6) 12 U/L 5-50 AST(SGOT) (test code = 8435561521) 24 U/L 13-40 eGFR (test code = 71763-8) 6.9 mL/min/1.73m2 CKD-EPI eGFR (2020). Assuming creatinine has been stable day-to-day for at least three months, the eGFR indicates Category G5 (<= 14mL/min/1.73 m2) Lab Interpretation (test code = 28647-4) Abnormal [facility] HospitalLipase2024-04-28 02:15:32* Test Item Value Reference Range Interpretation Comme nts LIPASE (test code = 4097870595) 758 U/L 0-220 H Lab Interpretation (test cod e = 74952-6) Abnormal [facility] HospitalCbc with [id number] 01:58:31* Test Item Value Reference Range Interpretation [...] g/dL 31.2-35.0 H RDW-SD (test code = 06132-7) 36.0 fL 38.5-51.6 L RDW-CV (test code = 788-0) 11.5 % 12.1-15.4 L PLT (test code = 777-3) 312 150-328 MPV (test code = 39948-6) 9.4 fL 9.8-13.0 L NRBC/100 WBC (test code = 9067955232) 0.0 0.0-10.0 NRBC x10^3 (test code = 8678352309) See_Comment [Automated message] The system which generated this result transmitted reference range: 10*3/?L. The reference range was not used to interpret this result as normal/abnormal. GRAN MAT (NEUT) % (test code = 770-8) 82.7 % IMM GRAN % (test code = 1777780888) 0.50 % LYMPH % (test code = 736-9) 6.7 % MONO % (test code = 5905-5) 9.8 % EOS % (test code = 713-8) 0.2 % BASO % (test code = 706-2) 0.1 % GRAN MAT x10^3(ANC) (test code = 1093524707) 12.19 10*3/uL 1.99-6.95 H IMM GRAN x10^3 (test code = 5126268139) 0.08 10*3/uL 0.00-0.06 H LYMPH x10^3 (test code = 731-0) 0.99 10*3/uL 1.09-3.23 L MONO x10^3 (test code = 742-7) 1.44 10*3/uL 0.36-1.02 H EOS x10^3 (test code = 711-2) 0.03 10*3/uL 0.06-0.53 L BASO x10^3 (test code = 704-7) 0.01-0.09 Lab Interpretation (test code = 86265-1) Abnormal [facility] GLUCOSE (AUTOMATED)2023-08-16 22:02:57* Test Item Value Reference Range Interpretation Comme nts POCT GLU (test code = 8856607456) 112 mg/dL 70-110 H Lab Interpretation (test cod e = 02688-8) [facility]normal [facility] [facility] 16:59:58* Test Item Value Reference Range Interpretation Comme nts POCT GLU (test code = 4154694131) 127 mg/dL 70-110 H Lab Interpretation (test cod e = 39157-0) [facility] 12:48:23* Test Item Value Reference Range Interpretation Comme nts POCT GLU (test code = 4998692642) 175 mg/dL 70-110 H Lab Interpretation (test cod e = 30083-9) Abnormal [facility] GLUCOSE (AUTOMATED)2023-08-16 02:07:02* Test Item Value Reference Range Interpretation Comme nts POCT GLU (test code = 3954583381) 195 mg/dL 70-110 H Notified Provide r Lab Interpretation (test code = 70348-0) Abnormal [facility] GLUCOSE (AUTOMATED)2023-08-15 21:36:15* Test Item Value Reference Range Interpretation Comme nts POCT GLU (test code = 3687491367) 284 mg/dL 70-110 H Lab Interpretation (test cod e = 83709-8) Abnormal [facility] GLUCOSE (AUTOMATED)2023-08-15 16:56:02* Test Item Value Reference Range Interpretation Comme nts POCT GLU (test code = 6569366127) 74 mg/dL 70-110 Lab Interpretation (test cod e = 09784-6) Normal [facility]23-08-15 13:12:34* Test Item Value Reference Range Interpretation Comme nts POCT GLU (test code = 2148192192) 258 mg/dL 70-110 H Lab Interpretation (test cod e = 69408-6) [facility]23-08-15 04:04:43* Test Item Value Reference Range Interpretation Comme nts POCT GLU (test code = 9325959395) 120 mg/dL 70-110 H Lab Interpretation (test cod e = 60714-6) [facility]normal [facility] HospitalGlycosylated Hemoglobin (A1C)2023-08-15 01:17:32* Test Item Value Reference Range Interpretation Comme nts HGB A1C (test code = 4548-4) 8.9 % 4.0-5.7 H GINA (test code = GINA) Reference RangesNormal: <5.7%Prediabetes: 5.7 - 6.4%Diabetes: > 6.5% Lab Interpretation (test code = 66811-6) Abnormal [facility] HospitalBeta Skgyarl-[id number] 01:00:45* Test Item Value Reference Range Interpretation Comme nts BOH (test code = 3044919909) 0.5 mmol/L GINA (test code = GINA) Normal Ranges: ? ? Nonfasting ? Less than 0.1 mmol/L ? ? Overnight Fast ? ? ? Less than 0.4 mmol/L ? ? Fasting (1-2 weeks) ?6-8 mmol/L Test developed and characteristics determined by [facility] Laboratory Services. [facility] HospitalCreatine [id number] 23:07:16* Test Item Value Reference Range Interpretation Comme nts CK (test code = 6734771446) 148 U/L 33-194 Lab Interpretation (test cod e = 82793-2) Normal [facility] HospitalTROPONIN [id number] 22:18:16* Test Item Value Reference Range Interpretation Comme nts TROPONIN I (test code = 8117632265) 0.081 ng/mL <=0.034 H GINA (test code [...] of biotin. Lab Interpretation (test code = 96190-9) Abnormal [facility] HospitalN-TERMINAL [id number] 22:15:55* Test Item Value Reference Range Interpretation Comme nts NT-proBNP (test code = 54773-4) 999 pg/mL <=125 H GINA (test code = GINA) Positive: Heart Failure Likely Lab Interpretation (test code = 50580-9) Abnormal [facility] HospitalMagnesium2024-04-20 22:07:17* Test Item Value Reference Range Interpretation Comme nts MAGNESIUM (test code = 0521233944) 1.8 mg/dL 1.7-2.4 Lab Interpretation (test cod e = 68732-0) Normal [facility] HospitalCOMP. METABOLIC PANEL (07632)2023 22:06:57* Test Item Value Reference Range Interpretation Comme nts NA (test code = 4024026618) 130 mmol/L 135-145 L K (test code = 0552988502) 3.4 mmol/L 3.5-5.0 L CL (test code = 4969425051) 93 mmol/L 98-108 L CO2 TOTAL (test code = 6961864668) 26 mmol/L 23-31 AGAP (test code = 9608692432) 11 2-16 BUN (test code = 7811973176) 39 mg/dL 7-23 H GLUCOSE (test code = 1174114556) 142 mg/dL 70-110 H CREATININE (test code = 2160-0) 2.40 mg/dL 0.60-1.25 H TOTAL BILI (test code = 8908499627) 1.2 mg/dL 0.1-1.1 H CALCIUM (test code = 6832415769) 9.1 mg/dL 8.6-10.6 T PROTEIN (test code = 1760996129) 7.7 g/dL 6.3-8.2 ALBUMIN (test code = 1443786176) 4.2 g/dL 3.5-5.0 ALK PHOS (test code = 9288313571) 102 U/L 34-122 ALTv (test code = 1742-6) 16 U/L 5-50 AST(SGOT) (test code = 8301004371) 26 U/L 13-40 eGFR (test code = 86567-5) 30.9 mL/min/1.73m2 CKD-EPI eGFR (2020). Assuming creatinine has been stable day-to-day for at least three months, the eGFR indicates Category G3b (30 - 44 mL/min/1.73 m2) Lab Interpretation (test code = 79061-8) Abnormal [facility] HospitalPhosphorus2024-04-20 22:06:37* Test Item Value Reference Range Interpretation Comme nts PHOSPHORUS (test code = 5084255253) 4.9 mg/dL 2.5-5.0 Lab Interpretation (test cod e = 40296-1) Normal [facility] HospitalLIPASE2024-04-20 22:06:17* Test Item Value Reference Range Interpretation Comme nts LIPASE (test code = 6964593992) 204 U/L 0-220 Lab Interpretation (test cod e = 76004-7) Normal [facility] HospitalCBC WITH [id number] 21:54:56* Test Item Value Reference Range Interpretation [...] g/dL 31.2-35.0 H RDW-SD (test code = 65412-9) 38.1 fL 38.5-51.6 L RDW-CV (test code = 788-0) 11.8 % 12.1-15.4 L PLT (test code = 777-3) 235 150-328 MPV (test code = 29853-2) 11.1 fL 9.8-13.0 NRBC/100 WBC (test code = 7765449387) 0.0 0.0-10.0 NRBC x10^3 (test code = 2709749571) See_Comment [Automated message] The system which generated this result transmitted reference range: 10*3/?L. The reference range was not used to interpret this result as normal/abnormal. GRAN MAT (NEUT) % (test code = 770-8) 80.3 % IMM GRAN % (test code = 1241519026) 0.60 % LYMPH % (test code = 736-9) 8.7 % MONO % (test code = 5905-5) 10.0 % EOS % (test code = 713-8) 0.2 % BASO % (test code = 706-2) 0.2 % GRAN MAT x10^3(ANC) (test code = 1448373839) 10.18 10*3/uL 1.99-6.95 H IMM GRAN x10^3 (test code = 6540877034) 0.07 10*3/uL 0.00-0.06 H LYMPH x10^3 (test code = 731-0) 1.11 10*3/uL 1.09-3.23 MONO x10^3 (test code = 742-7) 1.27 10*3/uL 0.36-1.02 H EOS x10^3 (test code = 711-2) 0.03 10*3/uL 0.06-0.53 L BASO x10^3 (test code = 704-7) 0.03 10*3/uL 0.01-0.09 Lab Interpretation (test code = 32612-4) Abnormal [facility] HospitalXR CHEST 1 [id number] 21:49:58EXAM: XR CHEST 1 2023 4:38 PM HISTORY: 58 years-old Male with r/o infilrate . TECHNIQUE: Portable AP view of the chest. COMPARISON: 04/21/2023 FINDINGS: Lines and tubes: None. Cardiomediastinal: The cardiomediastinal silhouette is unremarkable. Lungs and pleura: The lungs are clear. No focal consolidation,pneumothorax, or pleural effusion is seen. Included osseous structures show no acuteabnormality.[facility] HospitalCT ABDOMEN PELVIS W [id number] 21:45:03EXAM: CT ABDOMEN AND PELVIS WITH CONTRAST [...] the spine, sacroiliac jointsand hips ispresent.[facility] HospitalCT TRAUMA HEAD WO [id number] 21:38:37FULL RESULT: Examination: CT TRAUMA HEAD WO CONTRAST on 2023 4:16 PM Clinical Indication: Headache, hypertensive Comparison: None Technique: Noncontrast imaging was obtained from base to vertex.Findings: The sulci and ventricles were unremarkable. There may be subtlewhite matter microvascularischemic changes, notably in the anteriorperiventricular region, but there is no evidence for hemorrhage or otherclearly acute intracranial process.[facility] HospitalLactic Acid Whole [id number] 21:30:25* Test Item Value Reference Range Interpretation Comme nts LACTIC ACID (test code = 8185186383) 1.58 mmol/L 0.50-2.20 Lab Interpretation (test cod e = 28843-1) Normal [facility] HospitalAcute Care Venous Blood [id number] 21:30:25 * Test Item Value Reference Range Interpretation Comme nts PH (test code = 7214810790) 7.34 7.32-7.42 PCO2 NOY (test code = 1781155091) 45 41-51 PO2 NOY (test code = 7038443022) 24 25-40 L HCO3 NOY (test code = 8071898963) 24 24-28 AC VBE(BEAKER) (test code = 7903325279) -1.9 mEq/L Lab Interpretation (test cod e = 63476-3) Abnormal [facility] GLUCOSE (AUTOMATED)2023 20:26:17* Test Item Value Reference Range Interpretation Comme nts POCT GLU (test code = 6702850236) 165 mg/dL 70-110 H Lab Interpretation (test cod e = 95778-3) Abnormal [facility] GLUCOSE(AGE >30DAYS)2023 20:26:00* Test Item Value Reference Range Interpretation Comme nts POCT Glu (age>30days) (test code = 3342) 165 mg/dL 70-110 A Lab Interpretation (test cod e = 41083-4) Abnormal [facility] GLUCOSE (AUTOMATED)2023-04-23 18:15:28* Test Item Value Reference Range Interpretation Comme nts POCT GLU (test code = 1998855797) 218 mg/dL 70-110 H Lab Interpretation (test cod e = 56616-4) [facility]2023-04-23 15:35:23* Test Item Value Reference Range Interpretation Comme nts POCT GLU (test code = 6906214579) 186 mg/dL 70-110 H Lab Interpretation (test cod e = 42064-5) Abnormal [facility] GLUCOSE (AUTOMATED)2023-04-23 02:57:57* Test Item Value Reference Range Interpretation Comme nts POCT GLU (test code = 5239723342) 82 mg/dL 70-110 Lab Interpretation (test cod e = 53692-6) Normal [facility] GLUCOSE (AUTOMATED)2023-04-23 00:33:51* Test Item Value Reference Range Interpretation Comme nts POCT GLU (test code = 6629404172) 181 mg/dL 70-110 H Lab Interpretation (test cod e = 28299-2) Abnormal [facility] GLUCOSE (AUTOMATED)2023-04-22 22:54:22* Test Item Value Reference Range Interpretation Comme nts POCT GLU (test code = 5715204717) 127 mg/dL 70-110 H Lab Interpretation (test cod e = 65297-3) Abnormal [facility] GLUCOSE (AUTOMATED)2023-04-22 20:37:54* Test Item Value Reference Range Interpretation Comme nts POCT GLU (test code = 7124832876) 230 mg/dL 70-110 H Lab Interpretation (test cod e = 17198-6) Abnormal [facility] GLUCOSE (AUTOMATED)2023-04-22 17:46:23* Test Item Value Reference Range Interpretation Comme nts POCT GLU (test code = 0524121697) 144 mg/dL 70-110 H Lab Interpretation (test cod e = 00732-8) Abnormal [facility] GLUCOSE (AUTOMATED)2023-04-22 13:42:26* Test Item Value Reference Range Interpretation Comme nts POCT GLU (test code = 9599382118) 229 mg/dL 70-110 H Lab Interpretation (test cod e = 30738-8) Abnormal [facility] GLUCOSE (AUTOMATED)2023-04-22 03:33:49* Test Item Value Reference Range Interpretation Comme nts POCT GLU (test code = 8293108038) 222 mg/dL 70-110 H Lab Interpretation (test cod e = 44638-6) Abnormal [facility] GLUCOSE (AUTOMATED)2023-04-22 01:36:03* Test Item Value Reference Range Interpretation Comme nts POCT GLU (test code = 9290869499) 282 mg/dL 70-110 H Lab Interpretation (test cod e = 07792-5) Abnormal [facility] HospitalEchocardiogram dobutamine stress test 2023-04-21 22:26:30* Test Item Value Reference Range Interpretation Comme nts Height (test code = 2619648034) 63 in Weight (test code = 4287870723) 130 lbs Systolic BP (test code = 1005337679) 122 mmHg Diastolic BP (test code = 5869374241) 81 mmHg Heart Rate (test code = 6185409477) 105 bpm BSA (test code = 4673491228) 1.[address] Depresion (mm) (test code = 7212156395) [address] Depression (mm) (test code = 4930480069) 0 mm Radiology Study observation (narrative) (test code = 73531-9) GINA (test code = GINA) Table formatting [...] wall motion is globally hyperkinetic. [facility] HospitalTransthoracic echo (TTE)2023-04-21 18:05:03* Test Item Value Reference Range Interpretation Comme nts Height (test code = 9754248675) 63 in Weight (test code = 7324739662) 130 lbs Systolic BP (test code = 9814729413) 114 mmHg Diastolic BP (test code = 6206706233) 75 mmHg Heart Rate (test code = 6424941649) 98 bpm BSA (test code = 2581099059) 1.61 m2 LVIDD (test code = 1684192444) 4.00 cm Left Ventricular End Diastolic Volume by Teichholz Method (test code = 9132316) 70.0 mL IVS (test code = 4688604837) 1.07 cm Interventricular Septum Diastolic Thickness by 2D (test code = 2516863) 1.07 cm LVPWD (test code = 5635769337) 1.05 cm PW (test code = 3249184495) 1.05 cm 0.6-1.1 EF(Teich) (test code = 2950561001) 62.60 % LVIDS (test code = 7760852601) 2.70 cm Left Ventricular End Systolic Volume by Teichholz Method (test code = 1289153) 26.2 mL FS (test code = 9940877816) 33 % EF - 2D (test code = 91406818) 62.60 % Ao root diam (test code = 1095534172) 3.70 cm Aortic root (test code = 1345317358) 3.7 cm Ao root annulus (test code = 0707677742) 3.7 cm LA size (test code = 7811385977) 3.2 cm LVOT diameter (test code = 4346145298) 2.08 cm LVOT area (test code = 3809965057) 3.40 cm2 MV Peak E Nima (test code = 4757404781) 48.3 cm/s E wave decelartion time (test code = 2563735163) 0.15 s MV Peak A Nima (test code = 9064743491) 74.4 cm/s E/A ratio (test code = 1300076238) 0.65 ratio MV Prop V (test code = 2095715988) 21.20 cm/s LAV(MOD-sp4) (test code = 0949608082) 35.30 mL Tapse (test code = 5269584570) 1.73 cm LVOT stroke volume (test code = 0231343433) 45.20 cm3 LVOT peak nima (test code = 0217713332) 79.0 cm/s LVOT mn grad (test code = 9439094033) 1.3 mmHg AV LVOT peak gradient (test code = 0574775057) 2.50 mmHg LVOT peak VTI (test code = 4086927888) 13.2 cm LV V1 mean (test code = 2162146560) 52.90 cm/s Ao peak nima (test code = 2474101889) 83.8 cm/s AV area peak nima (test code = 6424003316) 3.2 cm2 Ao max PG (test code = 1015097049) 2.80 mm[Hg] AV peak gradient (test code = 6235038492) 2.8 mmHg LA Volume Index (BP) (test code = 2469829917) 25.9 mL/m2 LA volume (BP) (test code = 1443547163) 41.8 mL LAV(MOD-sp2) (test code = 6016986344) 40.90 mL A4C EF (test code = 7623822536) 54.40 % EF(sp4-el) (test code = 1954072619) 55.00 % SV(MOD-sp4) (test code = 5473376737) 53.10 mL SV(sp4-el) (test code = 4063180806) 55.60 mL Radiology Study observation (narrative) (test code = 65359-1) GINA (test code = GINA) ?Left?Ventricle: Left [...] used. Patient exhibited sinus rhythm. [facility] HospitalPOCT GLU[facility]SE (AUTOMATED)2023-04-21 17:48:26* Test Item Value Reference Range Interpretation Comme nts POCT GLU (test code = 3143285721) 198 mg/dL 70-110 H Lab Interpretation (test cod e = 68452-2) Abnormal [facility] HospitalXR CHEST 1 [id number] 15:12:07EXAM: XR CHEST 1 VW HISTORY: NSTEMI COMPARISON: None. FINDINGS: Small bandlike densities in the left midlung have more the appearance ofatelectasis than pneumonia. The lungs are well expanded and clearotherwise. The heart and great vessels are normal except for calcium in thearch of the aorta.[facility] HospitalPOCT GLUCOSE (AUTOMATED)2023-04-21 09:39:57* Test Item Value Reference Range Interpretation Comme nts POCT GLU (test code = 4724509185) 243 mg/dL 70-110 H Lab Interpretation (test cod e = 41305-3) Abnormal [facility] HospitalFerritin [id number] 07:28:27* Test Item Value Reference Range Interpretation Comme nts FERRITIN (test code = 9963877704) 76.3 ng/mL 18.0-464.0 GINA (test code = GINA) Biotin has been reported to cause a negative bias, interpret results relative to patient's use of biotin. Lab Interpretation (test code = 63407-9) Normal [facility] HospitalGlycosylated Hemoglobin (A1C)2023-04-21 07:25:47* Test Item Value Reference Range Interpretation Comme [facility] HGB A1C (test code = 4548-4) 12.6 % 4.0-5.7 H GINA (test code = GINA) Reference RangesNormal: <5.7%Prediabetes: 5.7 - 6.4%Diabetes: > 6.5% Lab Interpretation (test code = 11725-8) Abnormal [facility] HospitalThyroid Stimulating Drjlcpe0115-31-32 07:24:07 * Test Item Value Reference Range Interpretation Comme nts TSH (test code = 0681299191) 2.56 See_Comment [Automated Digital Global Systemsa ge] The system which generated this result transmitted reference range: 0.45 - 4.70 mIU/L. The reference range was not used to interpret this result as normal/abnormal. Lab Interpretation (test code = 31583-3) Normal [facility] HospitalPhosphorus2023-12-27 06:52:06* Test Item Value Reference Range Interpretation Comme nts PHOSPHORUS (test code = 3774629402) 3.2 mg/dL 2.5-5.0 Lab Interpretation (test cod e = 19935-8) Normal [facility] HospitalCritical [id number] 02:54:15NSergio chin MD ? ? 04/20/2023 ?8:54 [...] separately billable procedures and treating other patients. [facility] [id number] 02:30:18* Test Item Value Reference Range Interpretation Comme nts TROPONIN I (test code = 1641349904) 0.154 ng/mL <=0.034 H GINA (test code [...] of biotin. 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 Joseph Medical CenterCOMP. METABOLIC PANEL (91734)2023-04-21 02:19:15* Test Item Value Reference Range Interpretation Comme nts NA (test code = 6649613153) 129 mmol/L 135-145 L K (test code = 8260684248) 3.5 mmol/L 3.5-5.0 CL (test code = 9793966715) 94 mmol/L 98-108 L CO2 TOTAL (test code = 4341628035) 28 mmol/L 23-31 AGAP (test code = 3622612674) 7 2-16 BUN (test code = 7749162443) 26 mg/dL 7-23 H GLUCOSE (test code = 6711402346) 314 mg/dL 70-110 H CREATININE (test code = 8608100911) 0.92 mg/dL 0.60-1.25 TOTAL BILI (test code = 4907250469) 0.8 mg/dL 0.1-1.1 CALCIUM (test code = 8674572412) 8.5 mg/dL 8.6-10.6 L T PROTEIN (test code = 1010133576) 6.0 g/dL 6.3-8.2 L ALBUMIN (test code = 9967627776) 3.3 g/dL 3.5-5.0 L ALK PHOS (test code = 6438654194) 95 U/L 34-122 ALTv (test code = 1742-6) 23 U/L 5-50 AST(SGOT) (test code = 5415187864) 30 U/L 13-40 eGFR (test code = 42988-2) 98.2 mL/min/1.73m2 CKD-EPI eGFR (2020). Assuming creatinine has been stable day-to-day for at least three months, the eGFR indicates Category G1 (>= 90 mL/min/1.73 m2) Lab Interpretation (test code = 80532-0) Abnormal [facility] WITH [id number] 02:03:54* Test Item Value Reference Range Interpretation [...] g/dL 31.2-35.0 H RDW-SD (test code = 42438-0) 36.2 fL 38.5-51.6 L RDW-CV (test code = 788-0) 11.6 % 12.1-15.4 L PLT (test code = 777-3) 178 See_Comment [Automated messa ge] The system which generated this result transmitted reference range: 150 - 328 10*3/?L. The reference range was not used to interpret this result as normal/abnormal. MPV (test code = 44729-2) 10.9 fL 9.8-13.0 NRBC/100 WBC (test code = 8363596889) 0.0 See_Comment [Automated me ssage] The system which generated this result transmitted reference range: 0.0 - 10.0 /100 WBCs. The reference range was not used to interpret this result as normal/abnormal. NRBC x10^3 (test code = 1310108154) See_Comment [Automated messa ge] The system which generated this result transmitted reference range: 10*3/?L. The reference range was not used to interpret this result as normal/abnormal. GRAN MAT (NEUT) % (test code = 770-8) 81.3 % IMM GRAN % (test code = 1549605926) 0.30 % LYMPH % (test code = 736-9) 10.5 % MONO % (test code = 5905-5) 7.6 % EOS % (test code = 713-8) 0.1 % BASO % (test code = 706-2) 0.2 % GRAN MAT x10^3(ANC) (test code = 8631227812) 9.55 10*3/uL 1.99-6.95 H IMM GRAN x10^3 (test code = 0175123687) 0.04 10*3/uL 0.00-0.06 LYMPH x10^3 (test code = 731-0) 1.23 10*3/uL 1.09-3.23 MONO x10^3 (test code = 742-7) 0.89 10*3/uL 0.36-1.02 EOS x10^3 (test code = 711-2) 0.06-0.53 L BASO x10^3 (test code = 704-7) 0.01-0.09 Lab Interpretation (test code = 59827-2) Abnormal [facility] HospitalPOCT GLUCOSE (AUTOMATED)2023-04-21 01:55:51* Test Item Value Reference Range Interpretation Comme nts POCT GLU (test code = 3089381728) 408 mg/dL 70-110 H Lab Interpretation (test cod e = 54239-1) Abnormal [facility] HospitalCOMPREHENSIVE METABOLIC [id number] 05:07:51* Test Item Value Reference Range Interpretation Comme nts GLUCOSE (test code = 2217) 224 MG/DL 70-99 H BUN (test code = 2208) 22 MG/DL 6-20 H CREATININE (test code = 2214) 0.71 MG/DL 0.80-1.40 L eGFR (2020 CKD-EPI) (test code = 12840) 109 ML/MIN/1.73 >60 CALC BUN/CREAT (test code [...] code = 2218) 24 U/L 5-50 LIPID [id number] 05:07:51* Test Item Value Reference Range Interpretation [...] SPECIMENS. FOR MOREINFORMATION, SEE CLIENT ANNOUNCEMENT AT [email or web address] RISK RATIO LDL/HDL (test code = 2238) 1.72 RATIO <3.55 PSA, [id number] 05:07:10* Test Item Value Reference Range Interpretation Comme nts PSA, TOTAL (test code = 2606) 19.70 NG/ML See_Comment H NOTE: Methodolog y is Ashley Jasmina Electrochemiluminescence Immunoassay traceable to WHO reference standard 96/760. UNLESS OTHERWISE INDICATED, ALL TESTING PERFORMED [facility] [address] [place] [address] WEB DEVELOPMENT CONSULTANT: DUSTIN COLEMNARES M.D. CLIA NUMBER [id number] [place]. [id number] [Automated message] The system which generated this result transmitted reference range: <=4.00. The reference range was not used to interpret this result as normal/abnormal. HEMOGLOBIN [id number] 02:46:58* Test Item Value Reference Range Interpretation Comme nts HEMOGLOBIN A1c (test code = 99150) 11.0 % 4.2-5.6 H DJIBOUTIAN DIABETE S ASSOCIATION GUIDELINES FOR HGB A1C: [...] OR LABORATORY CONSULTATION. CBC W/AUTO DIFF WITH [id number] 02:32:39* Test Item Value Reference Range Interpretation [...] 0.00-0.10 ABS NUCLEATED RBCS (test code = 56755) 0.00 K/UL 0.00-0.11 Consult Notes Date/Time Note [...] when jensen is moved. COMMUNICATION Primary Language: Cymro Able to Verbalize needs: Yes Vision:good; no [...] Minutes: 20 min Jesica Murphy,PT [place]x License: [id number] Required Components in Determining Evaluation Level History: No personal factors or comorbidities: No (44169) 1-2 personal factors and/or comorbidities: Yes (12838) 3 or more personal factors and/ or comorbidities: No (96147) Examination of Body System(s) Addressing 1-2 elements: Yes (12525) Addressing a total of 3 or more elements: No (89117) Addressing a total of 4 or more elements: No (25155) Clinical Presentation Stable: Yes (97638) Evolving: No (70373) Unstable: No (75180) Clinical Decision Making (Complexity) Low: No (90188) Moderate: Yes (87873) High: No (05440) Jesica Murphy PT [facility] - [employer] 2023-08-15 10:01:34 Associated Order(s): CONSULT CARDIOLOGY [facility] Cardiology Consult Note Patient: Saturnino Shah Date [...] per primary team. Last Two A1C Results ([facility]/, POCT, [facility]) Recent Labs 04/20/23195408/14/23 1547 HGBA1C [...] feel free to call our office at [phone]. I would be happy to be of further assistance for Saturnino Shah wellbeing. Voice recognition software has been used to create portions of this document. An attempt to proofread has been made to minimize errors. Please do not hesitate to call with any questions. Benja Rivera MD [employer], Division of Cardiology [facility] 2023-04-21 08:46:48 Associated Order(s): CONSULT ENDOCRINOLOGY Endocrinology Consult Note Consultation requested by: Service: White team Reason for Consultation: Diabetes Date of Service: 04/21/23 HPI 57 year old male with a PMH of HTN, T2DM, Fmhx premature CAD who presented with complaints of polyuria and weakness at [facility] ER. Patient transferred to [place] for further work up. Endocrinology consulted for diabetes management Diabetes Type and year diagnosed: 2011, type 2 Diabetes complications: none Hx of DM regimen: no meds for 3 years Compliance: - BG monitoring? - Hypoglycemia hx: no Hypoglycemia unawareness? no Symptoms of hyperglycemia: polyuria Living situation and support: homeless, lives with different relatives Diabetes doctor: PCP in [place], has not seen for few years Family [...] with complaints of polyuria and weakness at [facility] ER. Patient transferred to [place] for further work up. Endocrinology consulted for [...] pay, need NPH and Regular insulin to [facility] ([employer]) -Need insulin vials, syringe needles, glucometer, test strips, lancets -Need meds to bed before discharge -Please contact Endocrine before discharge - Case discussed with Dr. Cabrera.. Austin Amaro. Endocrinology Fellow, PGY 5 ANIMAL KEEPER Associated attestation - Rita Cabrera MD - 04/22/2023 2:11 PM HEAD ANIMAL KEEPER Endocrinology Faculty Attestation: I evaluated this patient's progress on 04/21/[address] Amaro note as written and revised. I actively participated in the decision-making process. Please see the resident's note for additional details that includes pertinent addendums I made directly in the note during revision. Rita Cabrera MD [employer] Division of Endocrinology IM-ENDOCRINOLOGY,DIABET ES & METABOLISM [facility] - Health History and Physical Notes Date/Time Note Provider Source 2023-08-21 22:53:53 [facility] Hospitalist Admission H&P Date of Service: 08/21/2023 [...] consulted. Patient was given the application for [employer] on last admission and will need to [...] user?: NO Patient will require observation [place] [employer] was verified during stay Lyubov Banda MD [facility] 2023 22:58:21 MEDICINE MEGADC ADMIT H&P Date [...] present Code Status: Presumed Full Code T [facility] EMERGENC[facility] PH[facility]IC[facility] STAFF [facility] 2023-04-21 00:39:12 MCAWHITE Admit H&P PCP: Erik Louie Jr Date of Service: 04/20/2023 CHIEF COMPLAINT: Polyuria HISTORY OF PRESENT ILLNESS Saturnino Shah is a 57 year old male with a PMH of HTN, T2DM, Fmhx premature CAD who presented with complaints of polyuria and weakness at [facility] ER. Patient transferred to [place] for further work up. Patient reports that [...] help with resources. Plan: - Admit to [facility] - Trend Troponin to peak - Heparin [...] Internal Medicine Department PGY 2, [place] Team ANIMAL KEEPER Associated attestation - Bret Banda MD - 04/21/2023 2:47 PM HEAD ANIMAL KEEPER I reviewed patient's chart, vitals, lab work, current medications and other diagnostic studies. I saw and examined the patient today and agree with the detailed note. I actively participated in the decision-making process. Bret Banda MD [employer] Division of Cardiology [facility] - Health Notes Date/Time Note Provider Source [...] Outcome: Adequate for discharge Kalina Georges RN [facility] 2023-08-24 13:14:04 Problem: Pain Goal: Control [...] Absence of falls Outcome: Adequate for discharge [facility] 2023-08-23 07:12:12 Problem: Pain Goal: Control [...] Progressing as expected T Abi Lowery RN [facility] 2023-08-22 22:07:54 Problem: Pain Goal: Control [...] Outcome: Progressing as expected Tammy Sweeney RN [facility] 2023-08-22 08:41:53 Problem: Pain Goal: Control [...] Outcome: Progressing as expected Mihaela Lopez RN [facility] 2023-08-22 03:26:01 Problem: Pain Goal: Control [...] Outcome: Progressing as expected Angeline Claudio RN [facility] 2023-08-21 23:32:26 Patient admitted to [facility]01 for diagnosis of ELIEZER, urinary obstruction Patient agrees to admission, discussed plan of care with patient and family. Patient is awake, alert, oriented, resp reg unlabored, color appropriate for race, PIV intact No adverse reaction to medications administered while in ED Belongings with patient to unit Report to [facility] RN Chela Reyes RN [facility] 2023-08-21 19:43:36 Pt C/O RLQ pain that started yesterday, pt states last BM 08/16/2023. Pt denies any urinary, nausea or vomiting Sydney Duff RN [facility] 2023-08-21 19:39:00 [facility] Emergency Department Note Patient Name: Saturnino Shah Date of : 1965 58 year old male Treatment Room: [place] [address] Primary Care Physician: Erik Louie Jr Patient Escorted by: Self [9] Mode of Arrival: EMS - [place] [46] EMS Treatment Prior to ED Arrival: NURSE CLINICAL treatment: None Travel and Exposure Screening: Symptoms [...] 0.01 - 0.09 10*3/uL COMP. METABOLIC PANEL (41992) - Abnormal NA 120 (*) 135 - [...] CONTRAST Cbc with Diff Comp. Metabolic Panel (40431) Lipase Urinalysis Basic Metabolic Panel (NA, K, [...] treatment AdmissionCare documentation entered by: Cosme Cardona [facility] [employer], 27th edition, Copyright ? 2022 [facility] [employer] All Rights Reserved. [id number]:26:32-05:00 ED COURSE ED Course as of 08/21/235 [...] Electronically signed by: Cosme Cardona DO 08/21/232254 [facility] 2023-08-21 [...] treatment AdmissionCare documentation entered by: Cosme Cardona [facility] [employer]Mate, 27th edition, Copyright ? 2022 [facility] [employer] [facility] All Rights Reserved. [id number]:26:32-05:00 [facility] 2023-08-17 08:32:29 ----- Message from Yary [...] with one of us in 3-4 weeks. [facility] 2023-08-16 17:56:55 Summary: discharge transportation Discharge paperwork provided, patient stated he does not have a ride. Transportation was arranged with voucher. Discharge location: [address] [place] [id number] Patient verbalized understanding. T Hilary Quinones RN [facility] 2023-08-16 17:19:16 Problem: Pain Goal: Control [...] Outcome: Progressing as expected Libia Johnson RN [facility] 2023 23:43:36 Problem: Pain Goal: Control of pain at or below patient's documented comfort goal Outcome: Progressing as expected Goal: Reduction in pain sensation Outcome: Progressing as expected Problem: Skin integrity Impaired (Risk or Actual) Goal: Prevention of new skin breakdown Outcome: Progressing as expected Problem: Venous Thromboembolism, (actual or risk of) Goal: Absence of venous thromboembolism (Risk) Outcome: Progressing as expected [facility] 2023 23:01:15 Patient admitted to [facility] for diagnosis of Hypertension, elevated troponin, urine retention, ELIEZER, hypokalemia. Patient agrees to admission, discussed plan of care with patient and family. Patient is awake, alert, oriented, resp reg unlabored, color appropriate for race, PIV intact No adverse reaction to medications administered while in ED Belongings with patient to unit Report to [facility] RN Josi Miller RN [facility] 2023 18:56:57 Handoff report given to Josi VILLAGRAN Nunu Fang RN [facility] 2023 14:42:29 Has been out of diabetic, BP meds since April. States he can't "afford it". Struggling with constipation for "several days". He called EMS today for excessive fatigue and worsening hypertension. He is A&Ox4 and able to ambulate. Alba Hernandez RN [facility] - Health 2023 14:38:00 Associated Order(s): EKG-12 Lead ROUTINE ONCE Pre-Procedure Diagnose(s): Hypertension, unspecified type Post-Procedure Diagnose(s): Hypertension, unspecified type; Elevated troponin I level; Urine retention [facility] Emergency Department Note Patient Name: Saturnino Shah Date of : 1965 58 year old male [facility] Primary Care Physician: Erik Luoie Jr Patient Escorted by: Self [9] Mode of Arrival: EMS - [place] [46] EMS Treatment Prior to ED Arrival: [...] History provided by: 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 2022 [employer] All Rights Reserved. [id number]:45:18-05:00 [facility] [employer] 2023 14:38:00 AdmissionCare Guideline: Renal Failure (Acute) [...] patients) AdmissionCare documentation entered by: Umang Reynaga [employer], edition, Copyright ? 2022 [employer] All Rights Reserved. [id number]:00:25-05:00 [facility] 2023-04-27 15:56:14 TRANSITIONAL CARE MANAGEMENT ASSESSMENT 04/27/2023 Saturnino Shah [id number] Saturnino Shah is a 57 year old /White male was admitted on 04/20/[address] He was discharged on 04/23/23 with [...] to check in. No linked episodes TCM [id number] outreach documentation: Future Appointments: ANIMAL KEEPER Jeannette Dawn LVN [facility] 2023-04-23 18:39:42 Patient refuses to take taxi voucher which takes him directly to [employer] stating, "My brother is on his way to pick me up. I don't want to upset him as it is anymore." When asked if his brother is going to take him to [employer], patient stated, "I don't know. That will be between me and my brother." Transportation in room, wheeled patient downstairs to [facility]. ANIMAL KEEPER Meme Sparks RN [facility] 2023-04-23 17:33:42 Problem: Glucose control Goal: [...] Outcome: Progressing as expected A Whiting RN [facility] 2023-04-23 17:33:03 Problem: Glucose control Goal: [...] Valentino Whiting RN Outcome: Progressing as expected [facility] 2023-04-23 10:51:50 Problem: Glucose control Goal: [...] of cognitive ability Outcome: Progressing as expected [facility] 2023-04-23 00:56:44 Problem: Mental Status - Impaired Goal: Able to achieve maximum level of cognitive ability Outcome: Progressing as expected [facility] 2023-04-23 00:52:07 Problem: Glucose control Goal: [...] within specified parameters Outcome: Progressing as expected [facility] 2023-04-22 08:03:00 Problem: Glucose control Goal: [...] within specified parameters Outcome: Progressing as expected [facility] 2023-04-20 23:38:56 Problem: Glucose control Goal: [...] within specified parameters Outcome: Progressing as expected [facility] 2023-04-20 21:49:51 Patient admitted to [facility] ROOM 923 for diagnosis of WEAKNESS, NSTEMI, HYPERGLYCEMIA Patient agrees to admission, discussed plan of care with patient. Patient is awake, alert, oriented, resp reg unlabored, color appropriate for race, PIV intact No adverse reaction to medications administered while in ED Belongings with patient to unit Report to MARIE VILLAGRAN REPORT GIVEN TO MEDIC FOR [facility], PT LOADED TO BE TRANSFERRED. HEPARIN INFUSING AT 700 UNITS/ HOUR. [facility] [[email or web address] Jaelyn Vargas RN [facility] 2023-04-20 21:38:11 Report called to [facility], spoke with Marie VILLAGRAN. Pt awaiting EMS transfer. [facility] 2023-04-20 20:59:06 [facility] ETA 45 MIN per Chen A Carrero PCT [facility] 2023-04-20 20:54:15 Associated Order(s): Critical Care [...] separately billable procedures and treating other patients. [facility] [employer] 2023-04-20 20:00:00 Patient aware of UA sample needed. Unable to provide sample at this moment. Urinal at bedside. Call light within reach. [facility] [employer] 2023-04-20 19:50:08 Patient arrived to ED via [facility] c/o "not feeling well." [facility]SBG 386 NURSE CLINICAL. Per patient he was diagnosed with DM five years ago and stopped taking home meds-Metformin about three years ago. Patient c/o of being weak and increased UOP. Patient was nauseous NURSE CLINICAL but has resolved since. ANIMAL KEEPER [facility] 2023-04-20 19:43:00 EMERGENCY DEPARTMENT ENCOUNTER [facility] Patient Name: Saturnino Shah Date of : 1965 57 year old Exam Room:Room/bed info not found Primary Care Physician: No primary care provider on file. Pre- Hospital Patient Escorted by: Self [9] Mode of Arrival: EMS - [facility] ([place] [43] EMS Treatment Prior to ED Arrival: NURSE CLINICAL treatment: Saline lock;IVF ED Events Date/Time Event User Comments 04/20/231943 Medical Screening Begins SERGIO APONTE MD -- 04/20/231943 First Provider Evaluation SERGIO APONTE MD -- Chief Complaint Chief Complaint Patient presents with High Blood Sugar ED Triage Notes Megan Madrigal RN 04/20/2023 19:52 Patient arrived to ED via [facility] c/o "not feeling well." [facility]SB[facility] 386 NURSE CLINICAL. Per patient he was diagnosed with DM five years ago and stopped taking home meds-Metformin about three years ago. Patient c/o of being weak and increased UOP. Patient was nauseous NURSE CLINICAL but has resolved since. HPI History provided [...] 0.01 - 0.09 10*3/uL COMP. METABOLIC PANEL (48725) - Abnormal NA 129 (*) 135 - [...] VW CBC WITH DIFF COMP. METABOLIC PANEL (22235) URINALYSIS URINE DRUG (IMMUNOASSAY) - COMPREHENSIVE DRUG SCREEN W/O REFLEX ETHANOL POCT GLUCOSE (AUTOMATED) Troponin I Prothrombin Time / INR aPTT aPTT (for use with Heparin Infusion) Ferritin Serum Iron Panel Troponin I Thyroid Stimulating Hormone Glycosylated Hemoglobin (A1C) Phosphorus Cbc with Diff Basic Metabolic Panel (NA, K, CL, CO2, GLUCOSE, BUN, CREATININE, CA) Magnesium Lipid Panel (71185)(Total Cholesterol, Triglycerides, HDL) O2 Per Protocol Orders [...] mg Procedures EKG Time 1950 Sinus tach [place] normal Intervals normal No acute ischemia Notes [...] cardiac catheterization. The patient was transferred to [place] for further evaluation. History, physical exam findings, [...] this patient. Sergio Aponte Jr., MD Clinical [employer] [facility] Emergency Department [employer] Software is used frequently and may produce errors. Promptly contact for obvious discrepancies. Sergio Aponte MD 04/21/23 0025 [facility] EMERGENCY PHYSICIAN STAFF [facility]
[2024-07-06] MEDS ORDERED: KETOROLAC 30 MG/ML INJ ONE (04:39)
[2024-07-06] MEDS ORDERED: VANCOMYCIN 1 GM/VIAL ONE (04:39)
[2024-07-06] MEDS ORDERED: PIPERACIL/TAZO 3.375 GM VIAL IV ONE (04:39)
[2024-07-06] MEDS ORDERED: ACETAMINOPHEN 500 MG TAB ONE (04:39)
[2024-07-06] MEDS ORDERED: NA CHLORIDE 0.9% 500 ML ONE (04:39)
[2024-07-06] MEDS ORDERED: NA CHLORIDE 0.9% 100 ML ONE (04:39)
[2024-07-06] MEDS ORDERED: NA CHLORIDE 0.9% 2,000 ML ONE (04:40)
[2024-07-06 04:57] LABS: Absolute Basophils 0.1 K/uL (0-0.5); Absolute Eosinophils 0.2 K/uL (0-0.5); Absolute Lymphocytes (CBC) 1.2 K/uL (0.7-4.9); Absolute Monocytes 0.8 K/uL (0.1-1.3); Absolute Neutrophil 6.3 K/uL (1.8-8.0); Basophils % 0.7 % (0-1.3); Eosinophils % 2.1 % (0-4.4); Hematocrit 30.7 % (39.6-49.0); Hemoglobin 10.9 g/dL (13.6-17.9); Lymphocytes % 14.5 % (15.3-44.8); MCH 30.7 pg (27.0-35.0); MCHC 35.4 g/dL (32.0-36.0); MCV 86.7 fL (80-100); MPV 7.3 fL (7.6-11.3); Monocytes % 8.9 % (3.3-12.3); Neutrophils % 73.8 % (41.7-73.7); Nucleated Red Blood Cells % 0.3 % (0-0); Platelets 367 thou/uL (152-406); RBC Red Blood Cell Count 3.54 M/uL (4.33-5.43); Red Cell Distribution Width 12.4 % (12.1-15.2)
[2024-07-06 05:04] LABS: Specific Gravity 1.007 (1.005-1.030); Sqamous Epithelial None Seen /HPF (None Seen); Urine Bacteria None Seen /HPF (<20); Urine Bilirubin NEGATIVE (Negative); Urine Blood Negative (Negative); Urine Clarity Clear (Clear); Urine Color Colorless (Yellow); Urine Culture Reflex Order NOT NEEDED; Urine Glucose 3+ (Negative); Urine Ketones NEGATIVE (Negative); Urine Microscopic Reflex YN ORDER UMIC; Urine Nitrite NEGATIVE (Negative); Urine Protein TRACE (Negative); Urine RBC <5 /HPF (None Seen); Urine Urobilinogen Normal (Normal); Urine WBC None Seen /HPF (<5); Urine pH 7.5 (5.0-7.0)
[2024-07-06 05:17] LABS: PT Prothrombin Time 10.2 SECONDS (10-13.0); PTT, Activated Partial Thromb 32.3 SECONDS (27.2-37.4); Protime INR 0.89
[2024-07-06 05:24] LABS: Albumin 3.1 g/dL (3.4-5.0); Albumin/Globulin Ratio 0.7 (1.1-1.8); Anion Gap 8.1 mEq/L (5.0-15.0); Bilirubin Total 0.6 mg/dL (0.2-1.0); Globulin 4.4 g/dL (2.3-3.5); Potassium 4.1 mEq/L (3.5-5.1); Protein, Total 7.5 g/dL (6.4-8.2)
--- NOTE | 2024-07-06 05:42 | RAD REPORT ---
EXAM: Extremity Venous [employer] US Right Lower Extremity Venous Duplex Doppler HISTORY: right leg swelling COMPARISON: None TECHNIQUE: Grayscale, color Doppler, duplex Doppler, spectral Doppler images and analysis with compre ssion and augmentation of right lower extremity veins. FINDINGS: Right common femoral, greater saphenous, femoral, deep (profunda) femoral, popliteal, posterior tibia l veins unremarkable without evidence of clot. IMPRESSION: No sonographic evidence of right lower extremity DVT. Electronically signed by: Braden Hendrickson MD 07/06/2024 05:39 AM CDT Due to temporary technical issues with the [employer] reporting system, reports are being signed by the in-house radiologist without review as a courtesy to ensure prompt reporting the interpreting radiologist is fully responsible for the content of the report. Transcribed Date/Time: 07/06/2024 5:42 AM
--- NOTE | 2024-07-06 05:55 | RAD REPORT ---
EXAM DESCRIPTION: Knee Right 3 View CLINICAL HISTORY: knee swelling COMPARISON: None. FINDINGS: 3 views of the right knee. Ossific structure at the lateral aspect of the lateral tib ial plateau may represent an age-indeterminate avulsion fracture. Normal osseous mineralization. Small knee joint effusion. Atherosclerotic vascular calcification. Mild 3 compartment joint space na rrowing and marginal osteophytosis. IMPRESSION: 1. Ossific structure at the lateral aspect of the lateral tibial plateau may represent an age-indet erminate avulsion fracture. MRI would provide more complete characterization. 2. Small knee joint effusion. 3. Mild 3 compartment osteoarthritic change. Electronically signed by: Lefty Farfan DO 07/06/2024 05:22 AM CDT RP 4ZDM Due to temporary technical issues with the PACS/[employer] reporting system, reports are being max d by the in-house radiologist without review as a courtesy to ensure prompt reporting the interpreting radiologist is fully responsible for the content of the report. Transcribed Date/Time: 07/06/2024 5:55 AM
--- NOTE | 2024-07-06 06:55 | ER ---
Nurse's Notes [facility] Name: Johnnie Maldonado Age: 58 yrs Sex: Male : 1965 Arrival Date: 07/06/2024 Time: 02:54 Bed 5 Private MD: Diagnosis: Cellulitis of right lower limb;Acute Right knee effusion , Acute Right knee sprain ;Uncontrolled diabetes mellitus type 2, medication noncompliance Presentation: 07/06 02:56 Chief complaint: EMS states: RIGHT KNEE PAIN. ha1 02:56 Coronavirus screen: Client denies travel out of the [place] in the last 14 days. Ebola ha1 Screen: No symptoms or risks identified at this time. Initial Sepsis Screen: Does the patient meet any 2 criteria? No. Patient's initial sepsis screen is negative. Does the patient have a suspected source of infection? No. Patient's initial sepsis screen is negative. Risk Assessment: Do you want to hurt yourself or someone else? Patient reports no desire to harm self or others. Onset of symptoms was July 06, 2024. 02:56 Method Of Arrival: EMS: [facility] ha1 02:56 Acuity: DONTE 5 ha1 Triage Assessment: 02:56 General: Appears comfortable, Behavior is cooperative. Pain: Complains of pain in ha1 medial aspect of right knee Pain currently is 8 out of 10 on a pain scale. Quality of pain is described as aching. Neuro: Level of Consciousness is awake, alert, obeys commands. Historical: - Allergies: 03:05 No Known Allergies; ha1 - Home Meds: 03:05 metformin 1 Oral tablet 1 tab daily [Active]; ha1 - PMHx: 03:05 diabetes mellitus; Hypertensive disorder; raynaud's; Urinary incontinence; ha1 - PSHx: 03:05 right arm; ha1 - Immunization history:: Adult Immunizations not up to date. - Infectious Disease History:: Denies. - Social history:: Smoking status: Patient denies any tobacco usage or history of. - Family history:: not pertinent. Screenin:56 [facility] ED Fall Risk Assessment (Adult) History of falling in the last 3 months, bm8 including since admission No falls in past 3 months (0 pts) Confusion or Disorientation No (0 pts) Intoxicated or Sedated No (0 pts) Impaired Gait Yes (1 pt) Mobility Assist Device Used Yes (1 pt) Altered Elimination No (0 pt) Score/Fall Risk Level 0 - 2 = Low Risk Oriented to surroundings, Maintained a safe environment, Educated pt \T\ family on fall prevention, incl call for assistance when getting out of bed, Assessed \T\ reinforced patient's understanding of fall precautions, Hourly rounding (assess needs \T\ fall precautionary measures) done, Used ambulatory aids as needed (educated on \T\ assisted with), Used gait belt as appropriate. Abuse screen: Denies threats or abuse. Nutritional screening: No deficits noted. Tuberculosis screening: No symptoms or risk factors identified. Assessment: 04:56 Reassessment: Patient appears in no apparent distress at this time. Patient and/or bm8 family updated on plan of care and expected duration. Pain level reassessed. General: Appears in no apparent distress. uncomfortable, Behavior is calm, cooperative, appropriate for age. Pain: Complains of pain in right leg and medial aspect of right knee Pain currently is 6 out of 10 on a pain scale. Neuro: No deficits noted. Level of Consciousness is awake, alert, obeys commands, Oriented to person, place, time, situation, Appropriate for age. Cardiovascular: Denies chest pain, Capillary refill < 3 seconds in bilateral fingers toes Patient's skin is warm and dry. Rhythm is sinus rhythm. Respiratory: No deficits noted. Airway is patent Respiratory effort is even, unlabored, Respiratory pattern is regular, symmetrical. GI: No signs and/or symptoms were reported involving the gastrointestinal system. : No signs and/or symptoms were reported regarding the genitourinary system. EENT: No signs and/or symptoms were reported regarding the EENT system. Derm: Wound noted instep of left foot. Musculoskeletal: Swelling present in right foot Reports pain in right leg and medial aspect of right knee. 06:25 Reassessment: Patient appears in no apparent distress at this time. Patient and/or bm8 family updated on plan of care and expected duration. Pain level reassessed. Patient is alert, oriented x 3, equal unlabored respirations, skin warm/dry/pink. Patient states symptoms have not improved. 07:07 Reassessment: Patient appears in no apparent distress at this time. Patient and/or bm8 family updated on plan of care and expected duration. Pain level reassessed. Patient is alert, oriented x 3, equal unlabored respirations, skin warm/dry/pink. Patient states feeling better. Patient states symptoms have improved. Vital Signs: 02:56 BP 171 / 94; Pulse 92; Resp 17 S; Temp 97.6(T); Pulse Ox 98% on R/A; Weight 83.91 kg; ha1 Height 5 ft. 6 in. ; 04:49 BP 168 / 98; Pulse 91; Resp 18; Pulse Ox 100% on R/A; al5 06:25 bm8 07:07 bm8 02:56 Body Mass Index 29.86 (83.91 kg, 167.64 cm) ha1 06:25 pt declined to have vitals taken at this time bm8 07:07 pt decclined vital signs bm8 Lester Coma Score: 04:56 Eye Response: spontaneous(4). Motor Response: obeys commands(6). Verbal Response: bm8 oriented(5). Total: 15. 05:49 Eye Response: spontaneous(4). Motor Response: obeys commands(6). Verbal Response: sp4 oriented(5). Total: 15. 06:25 Eye Response: spontaneous(4). Motor Response: obeys commands(6). Verbal Response: bm8 oriented(5). Total: 15. 07:07 Eye Response: spontaneous(4). Motor Response: obeys commands(6). Verbal Response: bm8 oriented(5). Total: 15. ED Course: 02:54 Patient arrived in ED. [email or web address] 03:03 Kolby Parham MD is Attending Physician. sp4 03:05 Triage completed. ha1 04:56 Patient has correct armband on for positive identification. Placed in gown. Bed in low bm8 position. Call light in reach. Side rails up X2. Client placed on continuous cardiac and pulse oximetry monitoring. NIBP monitoring applied. quality assurance monitor final on. Pulse ox on. NIBP on. Door closed. Noise minimized. Warm blanket given. Pillow given. Verbal reassurance given. Head of bed lowered. 04:56 No provider procedures requiring assistance completed. Initial lab(s) drawn, by ED bm8 staff, sent to lab. First set of blood cultures drawn by ED staff, EKG done, by ED staff, reviewed by Kolby Parham MD. Inserted saline lock: 20 gauge in right antecubital area, using aseptic technique. Blood collected. Flushed with 10 mL NS. Patient maintains SpO2 saturation greater than 95% on room air. 04:59 Knee Right 3 View XRAY In Process Unspecified. EDMS 05:03 Socrates Gonzalez, RN is Primary Nurse. bm8 05:27 Extremity Venous Uni Ltd US In Process Unspecified. EDMS 07:05 knee brace applied to right knee. bm8 07:07 Provided Education on: post er care. bm8 07:07 IV discontinued, intact, bleeding controlled, No redness/swelling at site. Pressure bm8 dressing applied. 07:09 Arm band placed on right wrist. bm8 Administered Medications: 05:00 Drug: Ketorolac IVP 30 mg IVP once Route: IVP; Site: right antecubital; bm8 07:08 Follow up: Response: No adverse reaction bm8 05:00 Drug: Acetaminophen PO 1000 mg PO once Route: PO; bm8 07:08 Follow up: Response: No adverse reaction bm8 05:00 Drug: Piperacillin-Tazobactam IVPB 3.375 grams IVPB once over 60 mins; (mix in NS 100 bm8 mL) Route: IVPB; Infused Over: 60 mins; Site: right antecubital; 07:08 Follow up: Response: No adverse reaction; IV Status: Completed infusion bm8 05:00 Drug: NS 0.9% IV (30 ml/kg) 30 ml/kg IV at bolus once; Sepsis Protocol; to be given as bm8 a bolus over 90 minutes Route: IV; Rate: bolus; Site: right antecubital; 07:07 Follow up: Response: No adverse reaction; IV Status: Completed infusion bm8 05:41 Drug: vancoMYCIN IVPB 2 grams IVPB at calculated rate once Route: IVPB; Rate: al5 calculated rate; Site: right antecubital; 07:07 Follow up: Response: No adverse reaction; IV Status: Completed infusion bm8 Medication: 04:56 VIS not applicable for this client. bm8 Outcome: 06:55 Discharge ordered by . makayla 07:05 Discharged to home via wheelchair, bm8 07:05 Condition: stable 07:05 Discharge instructions given to patient, Instructed on discharge instructions, follow up and referral plans. Demonstrated understanding of instructions, follow-up care, medications, Prescriptions given X 2, 07:07 Prescriptions given X bm8 07:11 Patient left the ED. bm8 Signatures: Dispatcher [employer] EDMS Rizwana Kohli jj6 Cari Wilburn RN RN ha1 Kolby Parham MD MD sp4 Socrates Gonzalez RN RN bm8 Rebeca Quintana RN RN al5
--- NOTE | 2024-07-06 06:55 | EDPHYS ---
Physician Documentation [facility] Name: Johnnie Maldonado Age: 58 yrs Sex: Male : 1965 Arrival Date: 07/06/2024 Time: 02:54 Bed 5 Private MD: ED Physician Kolby Parham HPI: 07/06 03:03 This 58 yrs old Male presents to ER via Unassigned with complaints of Leg Pain.sp4 05:49 Patient is a very pleasant 58-year-old homeless male, patient presents with worsening sp4 pain and swelling of the right knee associated with discoloration in the right lower extremity swelling.. Historical: - Allergies: 03:05 No Known Allergies; ha1 - Home Meds: 03:05 metformin 1 Oral tablet 1 tab daily [Active]; ha1 - PMHx: 03:05 diabetes mellitus; Hypertensive disorder; raynaud's; Urinary incontinence; ha1 - PSHx: 03:05 right arm; ha1 - Immunization history:: Adult Immunizations not up to date. - Infectious Disease History:: Denies. - Social history:: Smoking status: Patient denies any tobacco usage or history of. - Family history:: not pertinent. ROS: 05:49 Constitutional: Negative for fever, chills, and weight loss, positive right knee sp4 swelling positive right lower extremity swelling, positive right knee pain Eyes: Negative for injury, pain, redness, and discharge, ENT: Negative for injury, pain, and discharge, Neck: Negative for injury, pain, and swelling, 05:49 All other systems are negative, Exam: 05:49 Constitutional: This is a well developed, well nourished patient who is awake, alert, sp4 and in no acute distress. Head/Face: Normocephalic, atraumatic. Eyes: Pupils equal round and reactive to light, extra-ocular motions intact. Lids and lashes normal. Conjunctiva and sclera are not injected. Cornea within normal limits. Periorbital areas with no swelling, redness, or edema. ENT: Nares patent. No nasal discharge, no septal abnormalities noted. Tympanic membranes are normal and external auditory canals are clear. Oropharynx with no redness, swelling, or masses, exudates, or evidence of obstruction, uvula midline. Mucous membranes moist. Neck: Trachea midline, no thyromegaly or masses palpated, and no cervical lymphadenopathy. Supple, full range of motion without nuchal rigidity, or vertebral point tenderness. Chest/axilla: Normal chest wall appearance and motion. Nontender with no deformity. No lesions are appreciated. Cardiovascular: Regular rate and rhythm with a normal S1 and S2. No gallops, murmurs, or rubs. Normal PMI, no JVD. No pulse deficits. Respiratory: Lungs have equal breath sounds bilaterally, clear to auscultation and percussion. No rales, rhonchi or wheezes noted. No increased work of breathing, no retractions or nasal flaring. Abdomen/GI: Soft, with normal bowel sounds. No distension or tympany. No guarding or rebound. No evidence of tenderness throughout. Back: No spinal tenderness. No costovertebral tenderness. Skin: Warm, dry with normal turgor. Normal color with no rashes, positive abrasions and cellulitic changes right lower extremity with redness and swelling tracking up to the right knee. MS/ Extremity: Pulses equal, no cyanosis. Neurovascular intact. Full, normal range of motion. Positive right knee swelling and effusion, positive right lower extremity cellulitis. Neuro: Awake and alert, GCS 15, oriented to person, place, time, and situation. Cranial nerves II-XII grossly intact. Motor strength 5/5 in all extremities. Sensory grossly intact. Psych: Awake, alert, with orientation to person, place and time. Behavior, mood, and affect are within normal limits 05:49 ECG was reviewed by the Attending Physician. EKG 0 444 Vital Signs: 02:56 BP 171 / 94; Pulse 92; Resp 17 S; Temp 97.6(T); Pulse Ox 98% on R/A; Weight 83.91 kg; ha1 Height 5 ft. 6 in. ; 04:49 BP 168 / 98; Pulse 91; Resp 18; Pulse Ox 100% on R/A; al5 06:25 bm8 07:07 bm8 02:56 Body Mass Index 29.86 (83.91 kg, 167.64 cm) ha1 06:25 pt declined to have vitals taken at this time bm8 07:07 pt decclined vital signs bm8 Addison Coma Score: 04:56 Eye Response: spontaneous(4). Motor Response: obeys commands(6). Verbal Response: bm8 oriented(5). Total: 15. 05:49 Eye Response: spontaneous(4). Motor Response: obeys commands(6). Verbal Response: sp4 oriented(5). Total: 15. 06:25 Eye Response: spontaneous(4). Motor Response: obeys commands(6). Verbal Response: bm8 oriented(5). Total: 15. 07:07 Eye Response: spontaneous(4). Motor Response: obeys commands(6). Verbal Response: bm8 oriented(5). Total: 15. Procedures: 07:00 Splinting: Splint applied to right knee using Right knee hinged knee brace applied. sp4 applied by nurse. Examined by me, post splint application: neurovascular intact, 2+ distal pulses palpable, brisk capillary refill noted, Patient tolerated well, Advised knee brace for the next 2 weeks. MDM: 03:57 Medical Screening Exam initiated sp4 05:55 ED course: EXAM DESCRIPTION: Knee Right 3 View CLINICAL HISTORY: knee swelling sp4 COMPARISON: None. FINDINGS: 3 views of the right knee. Ossific structure at the lateral aspect of the lateral tibial plateau may represent an ageindeterminate avulsion fracture. Normal osseous mineralization. Small knee joint effusion. Atherosclerotic vascular calcification. Mild 3 compartment joint space narrowing and marginal osteophytosis. IMPRESSION: 1. Ossific structure at the lateral aspect of the lateral tibial plateau may represent an age-indeterminate avulsion fracture. MRI would provide more complete characterization. 2. Small knee joint effusion. 3. Mild 3 compartment osteoarthritic change. Electronically signed by: Lefty Farfan . ED course: EXAM: Extremity Venous Uni Ltd US Right Lower Extremity Venous Duplex Doppler HISTORY: right leg swelling COMPARISON: None TECHNIQUE: Grayscale, color Doppler, duplex Doppler, spectral Doppler images and analysis with compression and augmentation of right lower extremity veins. FINDINGS: Right common femoral, greater saphenous, femoral, deep (profunda) femoral, popliteal, posterior tibial veins unremarkable without evidence of clot. IMPRESSION: No sonographic evidence of right lower extremity DVT. . 07:00 Differential diagnosis: closed fracture, contusion, abrasion, tendonitis. Data sp4 reviewed: vital signs, nurses notes, EMS record, lab test result(s), radiologic studies, plain films, ultrasound. Consideration of Admission/Observation Escalation of care including admission/observation considered. ED course: Patient has no elevation of white count, no signs of significant cellulitis. Will provide Bactrim for 10 days, also in hinged knee brace for the next 2 weeks.. 07/06 04:17 Order name: Blood Culture Adult (2) 4 07/06 04:17 Order name: CBC with Diff; Complete Time: 05:56 4 07/06 04:17 Order name: CMP; Complete Time: 05:56 4 07/06 04:17 Order name: Lactate w/ 2H reflex if indic.; Complete Time: 05:56 4 07/06 04:17 Order name: Protime (+inr); Complete Time: 05:56 4 07/06 04:17 Order name: Ptt, Activated; Complete Time: 05:56 4 07/06 04:17 Order name: Urinalysis w/ reflexes; Complete Time: 05:56 4 07/06 04:18 Order name: Knee Right 3 View XRAY 07/06 04:19 Order name: Extremity Venous Uni Ltd US; Complete Time: 05:56 07/06 04:17 Order name: Cardiac monitoring; Complete Time: 04:44 07/06 04:17 Order name: IV Saline Lock - Large Bore; Complete Time: 04:44 07/06 04:17 Order name: Labs collected and sent; Complete Time: 04:44 07/06 04:17 Order name: O2 Per Protocol; Complete Time: 04:45 07/06 04:17 Order name: O2 Sat Monitoring; Complete Time: 04:45 07/06 04:17 Order name: Vital Signs; Complete Time: 04:56 4 07/06 06:56 Order name: Knee Immobilizer: Provide Right knee hinged knee brace; Complete Time: 07:11sp4 EC:44 Rate is 85 beats/min. Rhythm is regular, Normal Sinus Rhythm. QRS [place] is Normal. AR sp4 interval is normal. QRS interval is normal. QT interval is normal. No Q waves. T waves are Normal. No ST changes noted. Clinical impression: Normal ECG. Interpreted by me. Reviewed by me. Administered Medications: 05:00 Drug: Ketorolac IVP 30 mg IVP once Route: IVP; Site: right antecubital; bm8 07:08 Follow up: Response: No adverse reaction bm8 05:00 Drug: Acetaminophen PO 1000 mg PO once Route: PO; bm8 07:08 Follow up: Response: No adverse reaction bm8 05:00 Drug: Piperacillin-Tazobactam IVPB 3.375 grams IVPB once over 60 mins; (mix in NS 100 bm8 mL) Route: IVPB; Infused Over: 60 mins; Site: right antecubital; 07:08 Follow up: Response: No adverse reaction; IV Status: Completed infusion bm8 05:00 Drug: NS 0.9% IV (30 ml/kg) 30 ml/kg IV at bolus once; Sepsis Protocol; to be given as bm8 a bolus over 90 minutes Route: IV; Rate: bolus; Site: right antecubital; 07:07 Follow up: Response: No adverse reaction; IV Status: Completed infusion bm8 05:41 Drug: vancoMYCIN IVPB 2 grams IVPB at calculated rate once Route: IVPB; Rate: al5 calculated rate; Site: right antecubital; 07:07 Follow up: Response: No adverse reaction; IV Status: Completed infusion bm8 Disposition Summary: 07/06/24 06:55 Discharge Ordered Notes: We recommend hinged knee brace for 2 weeks Location: Home sp4 Problem: new sp4 Symptoms: have improved sp4 Condition: Stable sp4 Diagnosis - Cellulitis of right lower limb sp4 - Acute Right knee effusion , Acute Right knee sprain sp4 - Uncontrolled diabetes mellitus type 2, medication noncompliance sp4 Followup: sp4 - With: Private Physician - When: 7 - 10 days - Reason: Recheck today's complaints Discharge Instructions: - Discharge Summary Sheet sp4 - Cellulitis, Adult, [id number] sp4 Forms: - Patient Portal Instructions sp4 Prescriptions: - Ibuprofen 800 mg Oral Tablet - take 1 tablet ORAL route every 8 hours As needed take with food; 30 tablet; sp4 Refills: 0, Product Selection Permitted - Bactrim DS 800-160 mg Oral Tablet - take 1 tablet ORAL route every 12 hours for 10 days; 20 tablet; Refills: 0, sp4 Product Selection Permitted Signatures: Dispatcher [facility] Cari Rosen RN RN ha1 Kolby Parham MD MD sp4 Socrates Gonzalez RN RN bm8 Langhorst, Rebeca, RN RN al5 Corrections: (The following items were deleted from the chart) 04:19 04:19 Knee Right 3 View+[email or web address] ordered. EDMS EDMS 04:20 04:20 Extremity Venous Uni Ltd+[email or web address] ordered. EDMS EDMS 04:49 04:17 Accucheck ordered. sp4 al5
[2024-07-06 07:17] VITALS: TEMP 97.6
[2024-07-06 07:19] VITALS: BP 168/98; O2SAT 100
--- NOTE | 2024-07-07 14:42 | EKG ---
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
== END 2024-07-06 07:11 | disposition home or self-care (01) ==
LOC: ER 02:54
DX: L03.115 Cellulitis of right lower limb (principal); M25.461 Effusion, right knee; S83.91XA Sprain of unspecified site of right knee, initial encounter; E11.9 Type 2 diabetes mellitus without complications; Z91.148 Patient's other noncompliance with medication regimen for other reason; Z59.00 Homelessness unspecified
CPT/HCPCS: 36415; 80053; 81001; 83605; 85025; 85610; 85730; 87040; 93005; 93971; 96365; 96367; 96368; 96375; 99285; J2543; J3370; J7030; J7040

== ENCOUNTER 2024-07-09 07:22 | Emergency (ER) | payer SELFPAY ==
--- OUTSIDE RECORDS SUMMARY | 2024-07-09 07:29 | XMS REPORT | Continuity of Care Document ---
Author Name Unknown Address [address] [facility] [address] [place] [address] Organization [facility] [place] Address [address] [facility] [address] [place] [address] Care Team Providers Care Billing And Accounting Staff Assistant Name Role Phone Erik Louie Jr. Primary Care Physician + [phone] Doctor Unassigned, Bonaparte Attending Clinician U Cosme Ward DO Attending Clinician [phone] Solo CHONG, Lyubov Hilton Attending Clinician [phone] Rosalie Irizarry RN Attending Clinician [phone] Miguel CHONG, Ricky Hoskins Attending Clinician + [phone] Umang Reynaga MD Attending Clinician [phone] Jerry Fields DO Attending Clinician [phone] Vimal Quiñones MD Attending Clinician [phone] Jeannette Dawn LVN Attending Clinician + [phone] PARVEZ MONROE Attending Clinician Unavailable Sergio Aponte MD Attending Clinician [phone] Bret Banda MD Attending Clinician [phone] Parvez Monroe MD Attending Clinician [phone] Lyubov Banda MD Admitting Clinician [phone] Jerry Fields DO Admitting Clinician PARVEZ MONROE Admitting Clinician Unavailable Parvez Monroe MD Admitting Clinician [phone] Problems Condition Name Condition Details Condition Category Status Onset Date Resolution Date Last Treatment Date Treating Clinician Comments Source Elevated troponin I level Elevated troponin I level Disease Active 08-14 00:00: 00 [facility] hospital Elevated brain natriureti c peptide (BNP) level Elevated brain natriureti c peptide (BNP) level Disease Active 08-14 00:00: 00 [facility] acute hospital Essential hypertensi on Essential hypertensi on Disease Active 08-14 00:00: 00 [facility] acute hospital ELIEZER (acute kidney injury) ELIEZER (acute kidney injury) Disease Active 08-14 00:00: 00 [facility] Type 2 diabetes mellitus with other specified complicati on Type 2 diabetes mellitus with other specified complicati on Disease Active 08-14 00:00: 00 [facility] acute hospital Hypertensi on, unspecifie d type Hypertensi on, unspecifie d type Disease Active 08-13 00:00: 00 [facility] acute hospital NSTEMI (non-ST elevated myocardial infarction ) NSTEMI (non-ST elevated myocardial infarction ) Disease Active 2022-04 00:00: 00 [facility] acute hospital Allergies, Adverse Reactions, Alerts Allergy Name Allergy Type Status Severity Reaction(s) Onset Date Inactive Date Treating Clinician Comments Source NO KNOWN ALLERGIE S Drug Class Active [facility] acute hospital Social History Social Habit Start Date Stop Date Quantity Comments Source [facility] 2023-08-23 00:00:00 2023-08-23 00:00:00 [facility] Alcohol intake 2023-08-22 00:00:00 2023-08-22 00:00:00 Lifetime non-drinker (finding) [facility] Alcoholic beverage intake 2023-08-22 00:00:00 2023-08-22 00:00:00 Lifetime non-drinker (finding) [facility] Tobacco use and exposure 2023-04-21 00:00:2023-04-21 00:00:00 Smokeless tobacco non-user [facility] Sex assigned at 1965 00:00:00 1965 00:00:00 [facility] Smoking Status Start Date Stop Date Source Never smoked tobacco [facility] acute hospital Medications Ordered Medication Name Filled Medication Name Start Date Stop Date Current Medication? Ordering Clinician Indication Dosage Frequency Signature (SIG) Comments Components Source acarbose 25 mg tablet 08-23 00:00: 00 Yes [id number] 25mg Take 1 tablet by mouth in the morning and 1 tablet at noon and 1 tablet in the evening. Take with meals. [facility] hospital metFORMIN 500 mg 24 hr tablet 08-23 00:00: 09-23 04:59 :00 No [id number] 500mg Take 1 tablet by mouth in the morning and 1 tablet in the evening. Take with meals. Do all this for 30 days. [facility] acute hospital amLODIPine 10 mg tablet 08-23 00:00: 09-23 04:59 :00 No [id number] 10mg Take 1 tablet by mouth in the morning for 30 days. [facility] acute hospital tamsulosin 0.4 mg 24 hr capsule 08-23 00:00: 00 09-23 04:59 :00 No [id number] .4mg Take 1 capsule by mouth in the morning for 30 days. [facility] acute hospital levoFLOXaci n 500 mg tablet 08-23 00:00: 08-26 04:59 :00 No [id number] 500mg Take 1 tablet by mouth every 24 (twenty-fo ur) hours for 2 days. [facility] acute hospital cefTRIAXone (ROCEPHIN) 1,000 mg in NaCl 0.9% [...]
D uration of therapy: Once (ED) [facility] D5W IV infusion 1,000 mL 08-22 15:00: 00 08-22 16:53 :22 No 1000mL at 50 mL/hr, IV Infusion, ONCE, 1 dose, On Wed08/23/23 at 1000, Routine [facility] acute hospital amLODIPine (NORVASC) tablet 5 mg 08-22 14:00: 00 Yes 5mg 5 mg, Oral, DAILY, First dose on Wed08/23/23 at 0900, Until Discontinu ed, Routine [facility] acute hospital D5W 0.45% NaCl (1/2NS) IV infusion 1,000 mL 08-22 02:29: 00 08-23 17:53 :57 No 1000mL at 75 mL/hr, 1,000 mL, IV Infusion, CONTINUOUS , Starting on Wed08/22/23 at 2130, Until Wed08/24/23 at 1253, Routine [facility] D5W IV infusion 1,000 mL 08-21 21:30: 00 08-22 02:27 :22 No 1000mL at 100 mL/hr, IV Infusion, CONTINUOUS , Starting on Wed08/22/23 at 1630, Until Wed08/22/23 at 2127, Routine [facility] acute hospital Sliding Scale Insulin - Lispro (HumaLOG) 08-21 21:00: 00 Yes Subcutaneo us, Q4H, First dose on Wed08/22/23 at 1600, Until Discontinu ed, Routine [facility] glucagon (GLUCAGEN DIAGNOSTIC KIT) injection 1 mg 08-21 20:17: 12 Yes 1mg 1 mg, Intramuscu lar, PRN, Starting on Wed08/22/23 at 1517, Until Discontinu ed, HAO, Blood Glucose < or = 70 mg/dL and patient is NPO, unable to swallow or has mental changes. [facility] hospital dextrose 50 % in water (D50W) injection 25 mL 08-21 20:17: 12 Yes 25mL 25 mL, Slow IV Push, PRN, Starting on Wed08/22/23 at 1517, Until Discontinu ed, HAO, Blood Glucose < or = 70 mg/dL and patient is NPO, unable to swallow or has mental status changes. [facility] hospital D5W IV infusion 1,000 mL 08-21 17:45: 00 08-21 20:16 :11 No 1000mL at 100 mL/hr, IV Infusion, CONTINUOUS , Starting on Wed08/22/23 at 1245, Until Wed08/22/23 at 1516, Routine [facility] acute hospital tamsulosin (FLOMAX) capsule 0.4 mg 08-21 14:00: 00 Yes .4mg 0.4 mg, Oral, DAILY, First dose on Wed08/22/23 at 0900, Until Discontinu ed, Routine [facility] acute hospital docusate (COLACE) capsule 100 mg 08-21 13:00: 00 Yes 100mg 100 mg, Oral, BID, First dose on Wed08/22/23 at 0800, Until Discontinu ed, Routine [facility] acute hospital heparin (porcine) injection 5,000 Units 08-21 13:00: 00 Yes 5000U 5,000 Units, Subcutaneo us, Q12H, First dose on Wed08/22/23 at 0800, Until Discontinu ed, Routine [facility] acute hospital D5W 0.45% NaCl (1/2NS) IV infusion 1,000 mL 08-21 06:15: 00 08-21 16:44 :38 No 1000mL at 100 mL/hr, 1,000 mL, IV Infusion, CONTINUOUS , Starting on Wed08/22/23 at 0115, Until Wed08/22/23 at 1144, Routine [facility] hospital D5W 0.45% NaCl (1/2NS) Bolus infusion 1,000 mL 08-21 06:00: 00 08-21 06:21 :00 No 1000mL at 999 mL/hr, 1,000 mL, IV Infusion, ONCE, 1 dose, On Wed08/22/23 at 0100, Routine [facility] NaCl 0.9% (NS) bolus infusion 1,000 mL 08-21 04:15: 00 08-21 05:05 :00 No 1000mL at 999 mL/hr, 1,000 mL, IV Infusion, ONCE, 1 dose, On 08/21/23 at 2315, STAT [facility] acute hospital bisacodyL (DULCOLAX) tablet 10 mg 08-21 04:02: 51 Yes 10mg 10 mg, Oral, QDAILYPRN, Starting on 08/21/23 at 2302, Until Discontinu ed, Routine, Constipati on [facility] acute hospital ondansetron (ZOFRAN (PF)) injection 4 mg 08-21 04:02: 17 Yes 4mg 4 mg, Slow IV Push, Q6HPRN, Starting on 08/21/23 at 2302, Until Discontinu ed, Routine, Nausea and Vomiting (N/V) [facility] acute hospital FENTanyl PF (SUBLIMAZE (PF)) injection 12.5 mcg 08-21 04:02: 09 08-22 04:01 :09 No 12.5ug 12.5 mcg, Slow IV Push, Q6HPRN, Starting on 08/21/23 at 2302, Until 08/22/23 at 2301, Routine, Pain (scale 7-10), Pain (scale 4-6) [facility] hospital acetaminoph en (TYLENOL) tablet 650 mg 08-21 04:01: 56 Yes 650mg 650 mg, Oral, Q6HPRN, Starting on 08/21/23 at 2301, Until Discontinu ed, Routine, Pain (scale 1-3) [facility] hospital magnesium citrate solution 296 mL 08-21 01:45: 00 08-21 01:25 :00 No 296mL 296 mL, Oral, ONCE, 1 dose, On 08/21/23 at 2045, Routine [facility] acute hospital amLODIPine 5 mg tablet 08-16 00:00: 00 08-23 00:00 :00 No [id number] 5mg Take 1 tablet by mouth in the morning for 30 days. [facility] acute hospital lactulose (CEPHULAC) solution 45 mL 08-15 15:45: 00 08-15 15:21 :00 No 45mL 45 mL, Oral, ONCE, 1 dose, On Wed08/16/23 at 1045, Routine [facility] acute [facility] amLODIPine (NORVASC) tablet 5 mg 08-15 14:00: 00 Yes 5mg 5 mg, Oral, DAILY, First dose on Wed08/16/23 at 0900, Until Discontinu ed, Routine [facility] acute hospital sennosides (SENOKOT) tablet 8.6 mg 08-15 14:00: 00 Yes 8.6mg 8.6 mg, Oral, DAILY, First dose on Wed08/16/23 at 0900, Until Discontinu ed, Routine [facility] acute hospital losartan (COZAAR) tablet 25 mg 08-15 14:00: 00 Yes 25mg 25 mg, Oral, DAILY, First dose (after last modificati on) on Wed08/16/23 at 0900, Until Discontinu ed, Routine [facility] acute [facility] docusate (COLACE) capsule 100 mg 08-15 13:00: 00 Yes 100mg 100 mg, Oral, BID, First dose on Wed08/16/23 at 0800, Until Discontinu ed, Routine [facility] acute hospital lactulose (CEPHULAC) solution 30 mL 08-15 10:00: 00 08-15 09:33 :00 No 30mL 30 mL, Oral, ONCE, 1 dose, On Wed08/16/23 at 0500, Routine [facility] metFORMIN 500 mg 24 hr tablet 08-15 00:00: 00 08-23 00:00 :00 No [id number] 500mg Take 1 tablet by mouth in the morning and 1 tablet in the evening. Take with meals. Do all this for 30 days. [facility] acute hospital acarbose 25 mg tablet 08-15 00:00: 00 08-23 00:00 :00 No [id number] 25mg Take 1 tablet by mouth in the morning and 1 tablet at noon and 1 tablet in the evening. Take with meals. Do all this for 30 days. [facility] acute hospital pioglitazon e 15 mg tablet 08-15 00:00: 00 08-23 00:00 :00 No [id number] 15mg Take 1 tablet by mouth in the morning for 30 days. [facility] acute hospital tamsulosin 0.4 mg 24 hr capsule 08-15 00:00: 00 08-23 00:00 :00 No [id number] .4mg Take 1 capsule by mouth in the morning for 30 days. [facility] acute hospital losartan 25 mg tablet 08-15 00:00: 00 08-23 00:00 :00 No [id number] 25mg Take 1 tablet by mouth in the morning for 30 days. [facility] acute hospital glipiZIDE (GLUCOTROL) tablet 5 mg 08-14 21:30: 00 Yes 5mg 5 mg, Oral, BIDAC, First dose on 08/15/23 at 1630, Until Discontinu ed, Routine [facility] acute hospital KCL (KLOR-CON M20) tablet 40 mEq 08-14 21:30: 00 08-14 21:21 :00 No 40meq 40 mEq, Oral, ONCE, 1 dose, On 08/15/23 at 1630, Routine [facility] pioglitazon e (ACTOS) tablet 7.5 mg 08-14 17:00: 00 08-15 12:47 :51 No 7.5mg 7.5 mg, Oral, DAILY, First dose on 08/15/23 at 1200, Until Discontinu ed, Routine [facility] acute hospital tamsulosin (FLOMAX) capsule 0.4 mg 08-14 15:49: 00 Yes .4mg 0.4 mg, Oral, DAILY, First dose on 08/15/23 at 1100, Until Discontinu ed, Routine [facility] acute [facility] amLODIPine (NORVASC) tablet 10 mg 08-14 14:00: 00 08-14 15:51 :30 No 10mg 10 mg, Oral, DAILY, First dose on 08/15/23 at 0900, Until Discontinu ed, Routine [facility] heparin (porcine) injection 5,000 Units 08-14 03:00: 00 08-14 06:07 :44 No 5000U 5,000 Units, Subcutaneo us, Q8H, First dose on 08/14/23 at 2200, Until Discontinu ed, Routine [facility] Sliding Scale Insulin - Lispro (HumaLOG) 08-14 02:00: 00 08-14 18:06 :14 No Subcutaneo us, TID MEALS+HS, First dose on 08/14/23 at 2100, Until Discontinu ed, Routine [facility] glucagon (GLUCAGEN DIAGNOSTIC KIT) injection 1 mg 08-14 00:36: 37 Yes 1mg 1 mg, Intramuscu lar, PRN, Starting on 08/14/23 at 1936, Until Discontinu ed, HAO, Blood Glucose < or = 70 mg/dL and patient is NPO, unable to swallow or has mental changes. [facility] dextrose 50 % in water (D50W) injection 25 mL 08-14 00:36: 37 Yes 25mL 25 mL, Slow IV Push, PRN, Starting on 08/14/23 at 1936, Until Discontinu ed, HAO, Blood Glucose < or = 70 mg/dL and patient is NPO, unable to swallow or has mental status changes. [facility] acetaminoph en (TYLENOL) tablet 650 mg 08-14 00:36: 24 Yes 650mg 650 mg, Oral, Q6HPRN, Starting on 08/14/23 at 1936, Until Discontinu ed, Routine, Pain (scale 1-3) [facility] acute hospital aspirin chewable tablet 324 mg 08-13 23:15: 00 08-13 22:56 :00 No [id number] 324mg 324 mg, Oral, ONCE, 1 dose, On 08/14/23 at 1815, [facility] lidocaine 2% viscous (LIDOCAINE VISCOUS) 2 % solution 15 mL 08-13 23:00: 00 08-13 22:10 :00 No [id number] 15mL 15 mL, Oral, ONCE, 1 dose, On 08/14/23 at 1800, Routine [facility] acute hospital KCL (KLOR-CON M20) tablet 20 mEq 08-13 22:30: 00 08-13 22:59 :00 No [id number] 20meq 20 mEq, Oral, ONCE, 1 dose, On 08/14/23 at 1730, [facility] metoprolol tartrate (LOPRESSOR) tablet 50 mg 08-13 22:00: 00 08-13 22:58 :00 No [id number] 50mg 50 mg, Oral, ONCE, 1 dose, On 08/14/23 at 1700, [facility] iopamidol (ISOVUE 370-500 mL) injection 80 mL 08-13 21:30: 00 08-13 21:45 :00 No [id number] 80mL 80 mL, Intravenou s, ONCE, 1 dose, On 08/14/23 at 1645, Routine [facility] acute hospital acetaminoph en (TYLENOL) tablet 650 mg 08-13 21:15: 00 08-13 22:57 :00 No [id number] 650mg 650 mg, Oral, ONCE, 1 dose, On 08/14/23 at 1615, [facility] amLODIPine (NORVASC) tablet 5 mg 08-13 21:15: 00 08-13 22:58 :00 No [id number] 5mg 5 mg, Oral, ONCE, 1 dose, On 08/14/23 at 1615, [facility] NaCl 0.9% (NS) bolus infusion 1,000 mL 08-13 21:15: 00 08-13 21:50 :00 No [id number] 1000mL at 999 mL/hr, 1,000 mL, IV Infusion, ONCE, 1 dose, On 08/14/23 at 1615, HAO [facility] acute hospital insulin NPH (HUMULIN N) injection 9 Units 2022-04 14:00: 00 Yes 9U 9 Units, Subcutaneo us, QAM WITH BREAKFAST, First dose (after last modificati on) on 04/24/23 at 0800, Until Discontinu ed, Routine [facility] losartan 25 mg tablet 2022-04 00:00: 00 08-15 00:00 :00 No [id number] 25mg Take 1 tablet by mouth in the morning. [facility] acute hospital tamsulosin (FLOMAX) 0.4 mg 24 hr capsule 2022-04 00:00: 00 08-15 00:00 :00 No [id number] .4mg Take 1 capsule by mouth in the morning. [facility] acute [facility] metFORMIN 500 mg tablet 2022-04 00:00: 00 05-23 05:59 :00 No [id number] Take 1 tablet by mouth 2 (two) times daily with meals for 7 days, THEN 2 tablets 2 (two) times daily with meals for 21 days. [facility] acute hospital insulin lispro (human) (HumaLOG U-100) injection 3 Units 2022-04 23:00: 00 Yes 3U 3 Units, Subcutaneo us, TID MEALS, First dose (after last modificati on) on Wed04/23/23 at 1700, Until Discontinu ed, Routine [facility] insulin NPH (HUMULIN N) injection 5 Units 2022-04 23:00: 00 Yes 5U 5 Units, Subcutaneo us, QPM, First dose (after last modificati on) on Wed04/23/23 at 1700, Until Discontinu ed, Routine [facility] acute hospital losartan (COZAAR) tablet 25 mg 2022-04 15:00: 00 Yes 25mg 25 mg, Oral, DAILY, First dose on Wed04/23/23 at 0900, Until Discontinu ed, Routine [facility] Potassium Bicarb-Citr ic Acid (EFFER-K) effervescen t tablet 40 mEq 2022-04 13:00: 00 04-23 13:33 :00 No 40meq 40 mEq, Oral, ONCE, 1 dose, On Wed04/23/23 at 0700, Routine [facility] acute hospital ramelteon (ROZEREM) tablet 8 mg 2022-04 10:45: 00 04-23 10:51 :00 No 8mg 8 mg, Oral, ONCE NOW, 1 dose, On Wed04/23/23 at 0500, Routine [facility] acute hospital Blood-Gluco se Meter (ACCU-CHEK GUIDE GLUCOSE METER) [facility] 2022-04 00:00: 00 Yes [id number] Use as directed [facility] acute hospital lancets 33 gauge [facility] 2022-04 00:00: 00 Yes [id number] Use as directed [facility] acute hospital blood sugar diagnostic (ACCU-CHEK GUIDE TEST STRIPS) strip 2022-04 00:00: 00 Yes [id number] Use as directed [facility] acute hospital pioglitazon e 15 mg tablet 2022-04 00:00: 00 08-15 00:00 :00 No [id number] 7.5mg Take 0.5 tablets by mouth in the morning. [facility] acute hospital acarbose 25 mg tablet 2022-04 00:00: 00 08-15 00:00 :00 No [id number] 25mg Take 1 tablet by mouth in the morning and 1 tablet at noon and 1 tablet in the evening. Take with meals. [facility] acute hospital atorvastati n 80 mg tablet 2022-04 00:00: 00 05-24 05:59 :00 No [id number] 80mg Take 1 tablet by mouth at bedtime for 30 days. [facility] acute hospital glipiZIDE 5 mg tablet 2022-04 00:00: 00 05-24 05:59 :00 No [id number] 5mg Take 1 tablet by mouth 2 (two) times daily before breakfast and dinner for 30 days. [facility] acute hospital enoxaparin (LOVENOX) injection 40 mg 2022-04 15:00: 00 Yes 40mg 40 mg, Subcutaneo us, DAILY, First dose on Wed04/22/23 at 0900, Until Discontinu ed, Routine [facility] insulin NPH (HUMULIN N) injection 8 Units 2022-04 14:00: 00 04-23 19:10 :37 No 8U 8 Units, Subcutaneo us, QAM WITH BREAKFAST, First dose on Wed04/22/23 at 0800, Until Discontinu ed, Routine [facility] insulin NPH (HUMULIN N) injection 4 Units 2022-04 23:00: 00 04-23 19:10 :37 No 4U 4 Units, Subcutaneo us, QPM, First dose on Wed04/21/23 at 1700, Until Discontinu ed, Routine [facility] insulin lispro (human) (HumaLOG U-100) injection 2 Units 2022-04 23:00: 00 04-23 19:10 :37 No 2U 2 Units, Subcutaneo us, TID MEALS, First dose (after last modificati on) on Wed04/21/23 at 1700, Until Discontinu ed, Routine [facility] NaCl 0.9% (NS) IV infusion 250 mL 2022-04 21:15: 00 04-22 20:03 :10 No [id number] 250mL at 20 mL/hr, IV Infusion, CONTINUOUS , Starting on Wed04/21/23 at 1515, Until Wed04/22/23 at 1403, Routine
To keep vein open
[facility] perflutren lipid microsphere s (DEFINITY) injection 2 mL 2022-04 21:00: 00 04-21 20:15 :00 No [id number] 2mL 2 mL, IV Push, ONCE, 1 dose, On Wed04/21/23 at 1500, Routine [facility] atropine injection 1 mg 2022-04 21:00: 00 04-21 20:44 :00 No [id number] 1mg 1 mg, Slow IV Push, ONCE, 1 dose, On Wed04/21/23 at 1500, Routine [facility] DOBUTamine (DOBUTREX) 250 mg/250 mL RTU infusion 2022-04 20:13: 51 04-22 20:03 :10 No [id number] 5ug/kg/ min 5 mcg/kg/min ?59 kg (17.7 [...] the Dobutamine infusion. (see Adjunctive Therapy)<b r> [facility] acute hospital perflutren protein-A microsphr (OPTISON) injection 3 mL 2022-04 17:15: 00 04-21 15:22 :00 No [id number] 3mL 3 mL, IV Push, ONCE, 1 dose, On Wed04/21/23 at 1115, Routine [facility] acute hospital potassium chloride in water 10 mEq/100 mL RTU 10 mEq 2022-04 17:00: 00 04-21 20:59 :00 No 10meq 10 mEq, IV Piggyback, Q1H, 4 doses, First dose (after last reorder) on Wed04/21/23 at 1100, Last dose on Wed04/21/23 at 1400, Administer over 60 Minutes, 100 mL [facility] acute hospital tamsulosin (FLOMAX) capsule 0.4 mg 2022-04 15:00: 00 Yes .4mg 0.4 mg, Oral, DAILY, First dose on Wed04/21/23 at 0900, Until Discontinu ed, Routine [facility] acute hospital aspirin chewable tablet 81 mg 2022-04 15:00: 00 04-22 16:28 :38 No 81mg 81 mg, Oral, DAILY, First dose on Wed04/21/23 at 0900, Until Discontinu ed, Routine [facility] acute hospital aspirin tablet 325 mg 2022-04 15:00: 00 04-21 06:21 :21 No 325mg 325 mg, Oral, DAILY, First dose on Wed04/21/23 at 0900, Until Discontinu ed, Routine [facility] Sliding Scale Insulin - Lispro (HumaLOG) 2022-04 14:00: 00 Yes Subcutaneo us, TID MEALS+HS, First dose on Wed04/21/23 at 0800, Until Discontinu ed, Routine [facility] magnesium sulfate in water 2 gram/50 mL (4 %) infusion 2 g 2022-04 12:30: 00 04-21 15:11 :00 No 2g 2 g, IV Piggyback, Administer over 60 Minutes, ONCE, 1 dose, On Wed04/21/23 at 0630, Routine [facility] Potassium Bicarb-Citr ic Acid (EFFER-K) effervescen t tablet 40 mEq 2022-04 12:30: 00 04-21 12:36 :00 No 40meq 40 mEq, Oral, ONCE, 1 dose, On Wed04/21/23 at 0630, Routine [facility] insulin glargine (LANTUS U-100) injection 9 Units 2022-04 07:45: 00 04-21 21:08 :08 No .15U/kg /d 9 Units (rounded from 8.745 Units = 0.15 Units/kg/d ay ?58.3 kg), Subcutaneo us, QHS, First dose (after last modificati on) on Wed04/21/23 at 0145, Until Discontinu ed, Routine [facility] atorvastati n (LIPITOR) tablet 80 mg 2022-04 06:30: 00 Yes 80mg 80 mg, Oral, QHS, First dose on Wed04/21/23 at 0030, Until Discontinu ed, Routine [facility] dextrose 50 % in water (D50W) injection 25 mL 2022-04 06:24: 50 Yes 25mL 25 mL, Slow IV Push, PRN, Starting on Wed04/21/23 at 0024, Until Discontinu ed, HAO, Blood Glucose < or = 70 mg/dL and patient is NPO, unable to swallow or has mental status changes. [facility] acute hospital acetaminoph en (TYLENOL) tablet 650 mg 2022-04 05:53: 21 Yes 650mg 650 mg, Oral, Q6HPRN, Starting on Wed04/20/23 at 2353, Until Discontinu ed, Routine, Pain (scale 1-3) [facility] hospital NaCl 0.9% (NS) bolus infusion 1,000 mL 2022-04 04:00: 00 04-21 03:45 :00 No 1000mL at 999 mL/hr, 1,000 mL, IV Infusion, ONCE, 1 dose, On Wed04/20/23 at 2200, STAT [facility] acute hospital clopidogreL (PLAVIX) 300 mg tablet 300 mg 2022-04 03:30: 00 04-21 02:50 :00 No 300mg 300 mg, Oral, ONCE, 1 dose, On Wed04/20/23 at 2130, HAO [facility] acute hospital HEPARIN SODIUM (PORCINE) 1,000 UNIT/ML BOLUS ACS ORDER SET 2022-04 02:45: 00 04-21 02:53 :00 No 60U/kg 3,540 Units (60 Units/kg ?59 kg), IV Push, ONCE, 1 dose, On Wed04/20/23 at 204, HAO [facility] acute hospital heparin 25,000 Units/250 mL (Premixed Bag) in [...] Rang e, Dosing and Testing: &nbs p;FOR [facility] ONLY &nbs p; - aPTT < [...] INITIAL BOLUS OR INITIAL INFUSION RATE.
[facility] Vital Signs Vital Name Observation Time Observation Value Comments S ource Systolic blood pressure 2023-08-24 13:02:00 150 mm[Hg] [facility] Diastolic blood pressure 2023-08-24 13:02:00 88 mm[Hg] [facility] Heart rate 2023-08-24 13:02:00 79 /min [facility] Body temperature 2023-08-24 13:02:00 36.44 Deya [facility] Respiratory rate 2023-08-24 13:02:00 14 /min [facility] Oxygen saturation in Arterial blood by Pulse oximetry 2023-08-24 13:02:00 98 /min [facility] Body weight 2023-08-24 08:43:00 58.469 kg [facility] BMI 2023-08-24 08:43:00 22.83 kg/m2 [facility] Body height 2023-08-22 04:52:00 160 cm [facility] Systolic blood pressure 2023-08-16 16:53:00 154 mm[Hg] [facility] Diastolic blood pressure 2023-08-16 16:53:00 94 mm[Hg] [facility] Heart rate 2023-08-16 16:53:00 82 /min [facility] Body temperature 2023-08-16 16:53:00 36.61 Deya [facility] Respiratory rate 2023-08-16 16:53:00 16 /min [facility] Oxygen saturation in Arterial blood by Pulse oximetry 2023-08-16 16:53:00 99 /min [facility] Body weight 2023-08-16 09:56:00 56.473 kg [facility] BMI 2023-08-16 09:56:00 22.05 kg/m2 [facility] Body height 2023-08-15 04:07:00 160 cm [facility] Systolic blood pressure 2023-04-23 18:11:00 141 mm[Hg] [facility] Diastolic blood pressure 2023-04-23 18:11:00 80 mm[Hg] [facility] Heart rate 2023-04-23 18:11:00 101 /min [facility] Body temperature 2023-04-23 18:11:00 35.89 Deya [facility] Respiratory rate 2023-04-23 18:11:00 18 /min [facility] Oxygen saturation in Arterial blood by Pulse oximetry 2023-04-23 18:11:00 98 /min [facility] Body weight 2023-04-22 09:57:00 57.561 kg [facility] BMI 2023-04-22 09:57:00 22.48 kg/m2 [facility] Body height 2023-04-21 20:00:00 160 cm [facility] Procedures Procedure Date / Time Performed Performing Clinician Source PATIENT AGREEMENTS AND CONTRACTS 2023-11-12 20:14:31 Doctor Unassigned, Bonaparte [facility] POCT GLUCOSE (AUTOMATED) 2023-08-24 16:13:00 Jami Banda [facility] POCT GLUCOSE (AUTOMATED) 2023-08-24 12:34:00 Jami Banda [facility] BASIC METABOLIC PANEL (NA, K, CL, CO2, GLUCOSE, BUN, CREATININE, CA) 2023-08-24 08:42:00 Jerry Fields [facility] CBC WITH DIFF 2023-08-24 08:42:00 Jerry Fields [facility] POCT GLUCOSE (AUTOMATED) 2023-08-24 05:46:00 Jami Banda [facility] BASIC METABOLIC PANEL (NA, K, CL, CO2, GLUCOSE, BUN, CREATININE, CA) 2023-08-24 01:37:00 Jerry Fields [facility] POCT GLUCOSE (AUTOMATED) 2023-08-24 01:27:00 Jami Banda [facility] POCT GLUCOSE (AUTOMATED) 2023-08-23 21:29:00 Jami Banda [facility] BASIC METABOLIC PANEL (NA, K, CL, CO2, GLUCOSE, BUN, CREATININE, CA) 2023-08-23 17:41:00 Jerry Fields [facility] POCT GLUCOSE (AUTOMATED) 2023-08-23 16:42:00 Jami Banda [facility] POCT GLUCOSE (AUTOMATED) 2023-08-23 12:36:00 Jami Banda [facility] POCT GLUCOSE (AUTOMATED) 2023-08-23 09:09:00 Jami Banda. [facility] MAGNESIUM 2023-08-23 08:23:00 [facility] BASIC METABOLIC PANEL (NA, K, CL, CO2, GLUCOSE, BUN, CREATININE, CA) 2023-08-23 08:23:00 Jerry Fields [facility] CBC WITH DIFF 2023-08-23 08:23:00 Donnie, Jerry [facility] POCT GLUCOSE (AUTOMATED) 2023-08-23 04:52:00 Jami Banda [facility] POCT GLUCOSE (AUTOMATED) 2023-08-23 00:42:00 Jami Banda [facility] BASIC METABOLIC PANEL (NA, K, CL, CO2, GLUCOSE, BUN, CREATININE, CA) 2023-08-23 00:38:00 Jerry Fields [facility] POCT GLUCOSE (AUTOMATED) 2023-08-22 21:18:00 Jami Banda [facility] URIC ACID 2023-08-22 19:21:00 Alyssa Cain [facility] PROTEIN CREAT RATIO URINE RANDOM 2023-08-22 19:21:00 Alyssa Cain [facility] CORTISOL AM 2023-08-22 19:20:00 Alyssa Cain [facility] BASIC METABOLIC PANEL (NA, K, CL, CO2, GLUCOSE, BUN, CREATININE, CA) 2023-08-22 13:21:00 Lyubov Banda [facility] LACTIC ACID WHOLE BLOOD 2023-08-22 09:16:00 Loreta Banda mmad [facility] MAGNESIUM 2023-08-22 08:30:00 Lyubov Banda [facility] TROPONIN I 2023-08-22 08:30:00 Lyubov Banda [facility] CBC WITH DIFF 2023-08-22 08:30:00 [facility] 2023-08-22 08:30:00 Lyubov Banda [facility] PHOSPHORUS 2023-08-22 04:01:00 Lyubov Banda [facility] BASIC METABOLIC PANEL (NA, K, CL, CO2, GLUCOSE, BUN, CREATININE, CA) 2023-08-22 04:01:00 Cosme Cardona [facility] URINALYSIS 2023-08-22 01:52:00 Cardona, [facility] CT ABDOMEN PELVIS WO CONTRAST 2023-08-22 01:26:17 Singer [facility] CREATINE KINASE 2023-08-22 01:24:00 Lyubov Banda [facility] LIPASE 2023-08-22 01:24:00 Singer [facility] COMP. METABOLIC PANEL ([id number]) 2023-08-22 01:24:00 Singer [facility] CBC WITH DIFF 2023-08-22 01:24:00 Singer [facility] POCT GLUCOSE (AUTOMATED) 2023-08-16 21:51:00 Yue [facility] POCT GLUCOSE (AUTOMATED) 2023-08-16 16:54:00 Yue [facility] POCT GLUCOSE (AUTOMATED) 2023-08-16 12:45:00 Yue [facility] POCT GLUCOSE (AUTOMATED) 2023-08-16 02:06:00 Yue [facility] POCT GLUCOSE (AUTOMATED) 2023-08-15 21:29:00 Yue [facility] POCT GLUCOSE (AUTOMATED) 2023-08-15 16:39:00 Yue [facility] POCT GLUCOSE (AUTOMATED) 2023-08-15 13:08:00 Yue [facility] TROPONIN I 2023-08-15 10:41:00 [facility] BASIC METABOLIC PANEL (NA, K, CL, CO2, GLUCOSE, BUN, CREATININE, CA) 2023-08-15 10:41:00 Shanice [facility] CBC WITH DIFF 2023-08-15 10:41:00 Shanice [facility] PROSTATIC SPECIFIC ANTIGEN 2023-08-15 05:32:00 Shanice [facility] TROPONIN I 2023-08-15 05:32:00 Shanice [facility] POCT GLUCOSE (AUTOMATED) 2023-08-15 04:03:00 Yue [facility] URINALYSIS 2023 22:15:00 Rosmery [facility] XR CHEST 1 VW 2023 21:46:00 Rosmery [facility] CT ABDOMEN PELVIS W CONTRAST 2023 21:34:55 [address]mer[address] [facility] CT TRAUMA HEAD WO CONTRAST 2023 21:33:20 Rosmery [facility] HB ECG ROUTINE & RHYTHM STRIP 2023 21:10:12 Rosmery [facility] PHOSPHORUS 2023 20:47:00 Rosmery [facility] CREATINE KINASE 2023 20:47:00 [facility]IP[facility] 2023 20:47:00 Rosmery [facility] MAGNESIUM 2023 20:47:00 Rosmery [facility] BETA HYDROXY-BUTYRATE 2023 20:47:00 Farida Reynaga [facility] TROPONIN I 2023 20:47:00 Rosmery [facility] COMP. METABOLIC PANEL ([id number]) 2023 20:47:00 Rosmery [facility] CBC WITH DIFF 2023 20:47:00 Rosmery [facility] GLYCOSYLATED HEMOGLOBIN (A1C) 2023 20:47:00 Jerry Fields [facility] N-TERMINAL PRO-BNP 2023 20:47:00 Michael Reynaga [facility] ACUTE CARE VENOUS BLOOD GAS 2023 20:46:00 Rosmery [facility] LACTIC ACID WHOLE BLOOD 2023 20:46:00 Kian Reynaga [facility] POCT GLUCOSE(AGE >30DAYS) 2023 20:26:00 Rosmery [facility] POCT GLUCOSE (AUTOMATED) 2023 20:23:00 Dalmedo, [facility] POCT GLUCOSE (AUTOMATED) 2023-04-23 18:09:00 Brien Banda [facility] POCT GLUCOSE (AUTOMATED) 2023-04-23 15:32:00 Brien Banda [facility] MAGNESIUM 2023-04-23 09:09:00 Chet Echavarria [facility] BASIC METABOLIC PANEL (NA, K, CL, CO2, GLUCOSE, BUN, CREATININE, CA) 2023-04-23 09:09:00 Chet Echavarria [facility] POCT GLUCOSE (AUTOMATED) 2023-04-23 02:56:00 [facility] ([facility]OMATED) 2023-04-23 00:32:00 Solo [facility] POCT GLUCOSE (AUTOMATED) 2023-04-22 22:43:00 Solo [facility] POCT GLUCOSE (AUTOMATED) 2023-04-22 20:36:00 Solo [facility] POCT GLUCOSE (AUTOMATED) 2023-04-22 17:44:00 Solo [facility] POCT GLUCOSE (AUTOMATED) 2023-04-22 13:41:00 Solo [facility] MAGNESIUM 2023-04-22 10:37:00 Daja Aaliyah [facility] BASIC METABOLIC PANEL (NA, K, CL, CO2, GLUCOSE, BUN, CREATININE, CA) 2023-04-22 10:37:00 Aaliyah Farnsworth [facility] CBC WITH DIFF 2023-04-22 10:37:00 Daja Aaliyah [facility] POCT GLUCOSE (AUTOMATED) 2023-04-22 03:32:00 Solo [facility] POCT GLUCOSE (AUTOMATED) 2023-04-22 01:34:00 Solo [facility] COMPLETE ECHOCARDIOGRAM DOBUTAMINE STRESS TEST W CONTRAST 2023-04-21 21:15:00 [facility] 2023-04-21 17:36:00 Banda, [facility] ACTIVATED PARTIAL THRMPLAS JERMAINE 2023-04-21 16:47:00 Sergio Aponte [facility] TRANSTHORACIC ECHO (TTE) COMPLETE W/ CONTRAST 2023-04-21 15:26:00 Kylie Fuchs Noel [facility] TROPONIN I 2023-04-21 12:39:00 Víctor Fuchs amalyue [facility] POCT GLUCOSE (AUTOMATED) 2023-04-21 09:39:00 Brien Banda [facility] MAGNESIUM 2023-04-21 09:10:00 Víctor Fuchs new egyptyue [facility] BASIC METABOLIC PANEL (NA, K, CL, CO2, GLUCOSE, BUN, CREATININE, CA) 2023-04-21 09:10:00 Tavia Fuchsmad [facility] LIPID PANEL ([id number])(TOTAL CHOLESTEROL, TRIGLYCERIDES, HDL) 2023-04-21 09:10:00 Tavia Fuchsmad [facility] CBC WITH DIFF 2023-04-21 09:10:00 Víctor Fuchs new [place] [facility] ACTIVATED PARTIAL THRMPLAS JREMAINE 2023-04-21 09:10:00 Sergio Aponte [facility] XR CHEST 1 VW 2023-04-21 06:53:47 Víctor Fuchs amalyue [facility] TROPONIN I 2023-04-21 06:32:00 Víctor Fuchs [place] [facility] IRON PANEL 2023-04-21 06:32:00 Víctor Fuchs new [place] [facility] N-TERMINAL PRO-BNP 2023-04-21 06:32:00 Kylie Fuchs [facility] CRITICAL CARE 2023-04-21 02:54:15 Sergio Aponte [facility] PROTHROMBIN TIME / INR 2023-04-21 02:44:00 Enrique Aponte [facility] ACTIVATED PARTIAL THRMPLAS JERMAINE 2023-04-21 02:44:00 Sergio Aponte [facility] URINALYSIS 2023-04-21 02:33:00 Sergio Aponte [facility] PROTEIN CREAT RATIO URINE RANDOM 2023-04-21 02:33:00 Kylie Fuchs [facility] URINE DRUG (IMMUNOASSAY) - COMPREHENSIVE DRUG SCREEN W/O REFLEX 2023-04-21 02:33:00 Sergio Aponet [facility] PHOSPHORUS 2023-04-21 01:55:00 Víctor Fuchs Noel [facility] FERRITIN SERUM 2023-04-21 01:55:00 Víctor Fuchs [facility] TROPONIN I 2023-04-21 01:55:00 Sergio Aponte [facility] THYROID STIMULATING HORMONE 2023-04-21 01:55:00 Kylie Fuchs Noel [facility] COMP. METABOLIC PANEL ([id number]) 2023-04-21 01:55:00 Sergio Aponte [facility] ETHANOL 2023-04-21 01:55:00 Sergio Aponte [facility] CBC WITH DIFF 2023-04-21 01:55:00 Sergio Aponte [facility] GLYCOSYLATED HEMOGLOBIN (A1C) 2023-04-21 01:55:00 Kylie Fuchs Noel [facility] POCT GLUCOSE (AUTOMATED) 2023-04-21 01:54:00 Yue Aponte [facility] EKG-12 LEAD 2023-04-21 01:51:41 [facility] Encounters Start Date/Time End Date/Time Encounter Type Admission Type Attending Clinicians Care Facility Care Department Encounter ID Source 2023-11-12 00:00:00 2024-06-10 07:16:20 Orders Only Doctor Unassigned, Bonaparte Doctor Unassigned, Bonaparte [facility] [id number] 350.1.13.10 4.2.7.2.686 [id number] General acute hospital 2023-08-21 19:47:00 2023-08-24 16:32:00 Hospital Encounter Cosme Cardona [facility] 1.2840.114 350.1.13.10 4.2.7.2.686 [id number] General acute hospital 2023-08-20 00:00:00 2023-08-20 00:00:00 Patient Outreach Rosalie Irizarry LYNN BAEZ 1.2840.114 350.1.13.10 4.2.7.2.686 [id number] General acute hospital 2023-08-17 00:00:00 2023-08-17 00:00:00 Telephone Ricky Rivera [facility] 1.0.114 350.1.13.10 4.2.7.2.686 [id number] General acute hospital 2023 14:42:00 2023-08-16 18:40:00 Hospital Encounter Umang Reynaga [place], [facility] 1.0.114 350.1.13.10 4.2.7.2.686 [id number] General acute hospital 2023-04-27 00:00:00 2023-04-27 00:00:00 Transition of Care López Jeannette LYNN BAEZ 1.840.114 350.1.13.10 4.2.7.2.686 [id number] General acute hospital 2023-04-20 19:48:00 2023-04-23 19:54:00 Inpatient PARVEZ NUNEZ [facility] [id number] General acute hospital 2023-04-20 19:48:00 2023-04-23 19:54:00 Hospital Encounter Sergio Aponte Rizwan Dacso, Matthew M [facility] 1.840.114 350.1.13.10 4.2.7.2.686 [id number] [facility] Results Test Description Test Time Test Comments Results Resul t Comments Source PATIENT AGREEMENTS AND CONTRACTS 2023-11-12 20:14:31 [facility]dered by an unspecified provider[facility] 12:35:27* Test Item Value Reference Range Interpretation Comme nts POCT GLU (test code = 6993504167) 204 mg/dL 70-110 H Lab Interpretation (test cod e = 87928-6) Abnormal [facility] Metabolic Panel (NA, K, CL, CO2, GLUCOSE, BUN, CREATININE, CA)2023-08-24 09:45:39* Test Item Value Reference Range Interpretation Comme nts NA (test code = 1256550752) 133 mmol/L 135-145 L K (test code = 1704869859) 3.7 mmol/L 3.5-5.0 CL (test code = 8920220174) 98 mmol/L 98-108 CO2 TOTAL (test code = 0320757319) 27 mmol/L 23-31 AGAP (test code = 8510493365) 8 2-16 BUN (test code = 3351676771) 13 mg/dL 7-23 GLUCOSE (test code = 2781985805) 188 mg/dL 70-110 H CREATININE (test code = 2160-0) 0.63 mg/dL 0.60-1.25 CALCIUM (test code = 5610723228) 9.4 mg/dL 8.6-10.6 eGFR (test code = 50141-5) 111.6 mL/min/1.73m2 CKD-EPI eGFR (2020). Assuming creatinine has been stable day-to-day for at least three months, the eGFR indicates Category G1 (>= 90 mL/min/1.73 m2) Lab Interpretation (test code = 68021-8) Abnormal [facility] [id number] 09:21:26* Test Item Value Reference Range Interpretation [...] g/dL 31.2-35.0 H RDW-SD (test code = 03322-0) 36.9 fL 38.5-51.6 L RDW-CV (test code = 788-0) 11.6 % 12.1-15.4 L PLT (test code = 777-3) 407 150-328 H MPV (test code = 42175-3) 9.5 fL 9.8-13.0 L NRBC/100 WBC (test code = 9930891148) 0.0 0.0-10.0 NRBC x10^3 (test code = 0422730431) See_Comment [Automated messa ge] The system which generated this result transmitted reference range: 10*3/?L. The reference range was not used to interpret this result as normal/abnormal. GRAN MAT (NEUT) % (test code = 770-8) 63.1 % IMM GRAN % (test code = 3211390927) 0.30 % LYMPH % (test code = 736-9) 21.1 % MONO % (test code = 5905-5) 8.3 % EOS % (test code = 713-8) 6.5 % BASO % (test code = 706-2) 0.7 % GRAN MAT x10^3(ANC) (test code = 5455424180) 3.71 10*3/uL 1.99-6.95 IMM GRAN x10^3 (test code = 2460461085) 0.00-0.06 LYMPH x10^3 (test code = 731-0) 1.24 10*3/uL 1.09-3.23 MONO x10^3 (test code = 742-7) 0.49 10*3/uL 0.36-1.02 EOS x10^3 (test code = 711-2) 0.38 10*3/uL 0.06-0.53 BASO x10^3 (test code = 704-7) 0.04 10*3/uL 0.01-0.09 Lab Interpretation (test code = 26820-5) Abnormal [facility] GLUCOSE (AUTOMATED)2023-08-24 05:47:46* Test Item Value Reference Range Interpretation Comme [facility] POCT GLU (test code = 4662694629) 126 mg/dL 70-110 H Lab Interpretation (test cod e = 80295-0) Abnormal [facility] Metabolic Panel (NA, K, CL, CO2, GLUCOSE, BUN, CREATININE, CA)2023-08-24 02:27:27* Test Item Value Reference Range Interpretation Comme nts NA (test code = 7702412899) 129 mmol/L 135-145 L K (test code = 5127862878) 3.9 mmol/L 3.5-5.0 CL (test code = 7684702865) 96 mmol/L 98-108 L CO2 TOTAL (test code = 8390257025) 29 mmol/L 23-31 AGAP (test code = 5482217977) 4 2-16 BUN (test code = 7033079164) 14 mg/dL 7-23 GLUCOSE (test code = 5925133822) 185 mg/dL 70-110 H CREATININE (test code = 2160-0) 0.56 mg/dL 0.60-1.25 L CALCIUM (test code = 6687331509) 9.2 mg/dL 8.6-10.6 eGFR (test code = 51525-9) 115.7 mL/min/1.73m2 CKD-EPI eGFR (2020). Assuming creatinine has been stable day-to-day for at least three months, the eGFR indicates Category G1 (>= 90 mL/min/1.73 m2) Lab Interpretation (test code = 72661-9) Abnormal [facility] GLUCOSE (AUTOMATED)2023-08-24 01:28:28* Test Item Value Reference Range Interpretation Comme [facility] POCT GLU (test code = 0839754688) 210 mg/dL 70-110 H Lab Interpretation (test cod e = 72825-5) Abnormal [facility] GLUCOSE (AUTOMATED)2023-08-23 21:30:04* Test Item Value Reference Range Interpretation Comme nts POCT GLU (test code = 7480855060) 149 mg/dL 70-110 H Lab Interpretation (test cod e = 82673-0) Abnormal [facility] GLUCOSE (AUTOMATED)2023-08-23 16:45:20* Test Item Value Reference Range Interpretation Comme nts POCT GLU (test code = 8726456412) 147 mg/dL 70-110 H Lab Interpretation (test cod e = 01708-5) Abnormal [facility] GLUCOSE (AUTOMATED)2023-08-23 12:36:56* Test Item Value Reference Range Interpretation Comme nts POCT GLU (test code = 0390249281) 131 mg/dL 70-110 H Lab Interpretation (test cod e = 47483-5) Abnormal [facility] GLUCOSE (AUTOMATED)2023-08-23 09:17:23* Test Item Value Reference Range Interpretation Comme nts POCT GLU (test code = 7077623421) 154 mg/dL 70-110 H Lab Interpretation (test cod e = 23668-1) Abnormal [facility] GLUCOSE (AUTOMATED)2023-08-23 05:03:01* Test Item Value Reference Range Interpretation Comme nts POCT GLU (test code = 2179899758) 183 mg/dL 70-110 H Lab Interpretation (test cod e = 24454-8) Abnormal [facility] Metabolic Panel (NA, K, CL, CO2, GLUCOSE, BUN, CREATININE, CA)2023-08-23 01:49:58* Test Item Value Reference Range Interpretation Comme nts NA (test code = 0977746427) 132 mmol/L 135-145 L K (test code = 5948150752) 4.1 mmol/L 3.5-5.0 CL (test code = 6972270239) 101 mmol/L 98-108 CO2 TOTAL (test code = 2470989916) 28 mmol/L 23-31 AGAP (test code = 0008450361) 3 2-16 BUN (test code = 6422161311) 17 mg/dL 7-23 GLUCOSE (test code = 2654507711) 149 mg/dL 70-110 H CREATININE (test code = 2160-0) 0.97 mg/dL 0.60-1.25 CALCIUM (test code = 0027844764) 8.4 mg/dL 8.6-10.6 L eGFR (test code = 98675-7) 91.6 mL/min/1.73m2 CKD-EPI eGFR (2020). Assuming creatinine has been stable day-to-day for at least three months, the eGFR indicates Category G1 (>= 90 mL/min/1.73 m2) Lab Interpretation (test code = 58013-6) Abnormal [facility] GLUCOSE (AUTOMATED)2023-08-23 00:43:06* Test Item Value Reference Range Interpretation Comme [facility] POCT GLU (test code = 7456231250) 126 mg/dL 70-110 H Lab Interpretation (test cod e = 27652-9) Abnormal [facility] Center[facility]ort[facility] [id number] 22:59:03* Test Item Value Reference Range Interpretation Comme [facility] IBRAHIMA AM (test code = 9783117910) 24.7 ug/dL 4.5-23.0 H GINA (test code = GINA) Biotin has been reported to cause a positive bias, interpret results relative to patient's use of biotin. Lab Interpretation (test code = 27026-2) Abnormal [facility] GLUCOSE (AUTOMATED)2023-08-22 21:29:10* Test Item Value Reference Range Interpretation Comme [facility] POCT GLU (test code = 5141553037) 341 mg/dL 70-110 H Lab Interpretation (test cod e = 05448-4) Abnormal [facility] Center[facility]ric [id number] 19:53:59* Test Item Value Reference Range Interpretation Comme [facility] URIC ACID (test code = 3279550592) 6.4 mg/dL 3.6-8.0 Lab Interpretation (test cod e = 36940-1) Normal [facility] Met[facility] (NA, K, CL, CO2, GLUCOSE, BUN, CREATININE, CA)2023-08-22 14:43:15* Test Item Value Reference Range Interpretation Comme nts NA (test code = 8296713869) 138 mmol/L 135-145 K (test code = 1264459411) 4.6 mmol/L 3.5-5.0 CL (test code = 6183516149) 102 mmol/L 98-108 CO2 TOTAL (test code = 5661742569) 28 mmol/L 23-31 AGAP (test code = 0551308296) 8 2-16 BUN (test code = 4122058733) 34 mg/dL 7-23 H GLUCOSE (test code = 2777785887) 224 mg/dL 70-110 H CREATININE (test code = 2160-0) 1.89 mg/dL 0.60-1.25 H CALCIUM (test code = 0470392965) 9.4 mg/dL 8.6-10.6 eGFR (test code = 23372-4) 41.1 mL/min/1.73m2 CKD-EPI eGFR (2020). Assuming creatinine has been stable day-to-day for at least three months, the eGFR indicates Category G3b (30 - 44 mL/min/1.73 m2) Lab Interpretation (test code = 91757-4) Abnormal [facility] CenterCreatine [id number] 14:42:45* Test Item Value Reference Range Interpretation Comme nts CK (test code = 2273045863) 224 U/L 33-194 H Lab Interpretation (test cod e = 34209-3) Abnormal [facility] CenterPhosphorus [id number] 12:10:01* Test Item Value Reference Range Interpretation Comme nts PHOSPHORUS (test code = 3915453782) 5.8 mg/dL 2.5-5.0 H Lab Interpretation (test cod e = 03294-6) Abnormal [facility] (NA, K, CL, CO2, GLUCOSE, BUN, CREATININE, CA)2023-08-22 04:41:19* Test Item Value Reference Range Interpretation Comme nts NA (test code = 9972280116) 124 mmol/L 135-145 L K (test code = 1480137125) 4.7 mmol/L 3.5-5.0 CL (test code = 8760091647) 93 mmol/L 98-108 L CO2 TOTAL (test code = 9617413616) 18 mmol/L 23-31 L AGAP (test code = 2149309381) 13 2-16 BUN (test code = 7704208431) 68 mg/dL 7-23 H GLUCOSE (test code = 0679809258) 116 mg/dL 70-110 H CREATININE (test code = 2160-0) 6.60 mg/dL 0.60-1.25 H CALCIUM (test code = 2889626974) 9.0 mg/dL 8.6-10.6 eGFR (test code = 69650-0) 9.2 mL/min/1.73m2 CKD-EPI eGFR (2020). Assuming creatinine has been stable day-to-day for at least three months, the eGFR indicates Category G5 (<= 14mL/min/1.73 m2) Lab Interpretation (test code = 13672-9) Abnormal [facility] P[facility] WO [id number] 02:22:05Exam: CT Abdomen and Pelvis without Contrast, [...] osseous finding. Subacute/chronic left-sided rib fractures.Soft tissues: Unremarkable.[facility] CenterComp. Metabolic Panel (15071) 2023-08-22 02:21:33* Test Item Value Reference Range Interpretation Comme nts NA (test code = 3358562848) 120 mmol/L 135-145 L K (test code = 3632676390) 4.8 mmol/L 3.5-5.0 CL (test code = 8286005299) 85 mmol/L 98-108 L CO2 TOTAL (test code = 5387836269) 21 mmol/L 23-31 L AGAP (test code = 3486808740) 14 2-16 BUN (test code = 6965102702) 70 mg/dL 7-23 H GLUCOSE (test code = 8313451129) 97 mg/dL 70-110 CREATININE (test code = 2160-0) 8.39 mg/dL 0.60-1.25 H TOTAL BILI (test code = 2049982580) 0.7 mg/dL 0.1-1.1 CALCIUM (test code = 7949266412) 8.8 mg/dL 8.6-10.6 T PROTEIN (test code = 3899240037) 7.2 g/dL 6.3-8.2 ALBUMIN (test code = 5857097147) 4.1 g/dL 3.5-5.0 ALK PHOS (test code = 9196484489) 95 U/L 34-122 ALTv (test code = 1742-6) 12 U/L 5-50 AST(SGOT) (test code = 8617011296) 24 U/L 13-40 eGFR (test code = 57217-1) 6.9 mL/min/1.73m2 CKD-EPI eGFR (2020). Assuming creatinine has been stable day-to-day for at least three months, the eGFR indicates Category G5 (<= 14mL/min/1.73 m2) Lab Interpretation (test code = 71943-1) [facility] Test Item Value Reference Range Interpretation Comme nts LIPASE (test code = 7138986525) 758 U/L 0-220 H Lab Interpretation (test cod e = 71809-2) [facility] [id number] 01:58:31* Test Item Value Reference Range Interpretation [...] g/dL 31.2-35.0 H RDW-SD (test code = 73608-2) 36.0 fL 38.5-51.6 L RDW-CV (test code = 788-0) 11.5 % 12.1-15.4 L PLT (test code = 777-3) 312 150-328 MPV (test code = 65201-4) 9.4 fL 9.8-13.0 L NRBC/100 WBC (test code = 4177295877) 0.0 0.0-10.0 NRBC x10^3 (test code = 8949329521) See_Comment [Automated message] The system which generated this result transmitted reference range: 10*3/?L. The reference range was not used to interpret this result as normal/abnormal. GRAN MAT (NEUT) % (test code = 770-8) 82.7 % IMM GRAN % (test code = 5910334061) 0.50 % LYMPH % (test code = 736-9) 6.7 % MONO % (test code = 5905-5) 9.8 % EOS % (test code = 713-8) 0.2 % BASO % (test code = 706-2) 0.1 % GRAN MAT x10^3(ANC) (test code = 4744710898) 12.19 10*3/uL 1.99-6.95 H IMM GRAN x10^3 (test code = 6545315290) 0.08 10*3/uL 0.00-0.06 H LYMPH x10^3 (test code = 731-0) 0.99 10*3/uL 1.09-3.23 L MONO x10^3 (test code = 742-7) 1.44 10*3/uL 0.36-1.02 H EOS x10^3 (test code = 711-2) 0.03 10*3/uL 0.06-0.53 L BASO x10^3 (test code = 704-7) 0.01-0.09 Lab Interpretation (test code = 80217-9) Abnormal [facility] [facility] GLUCOSE (AUTOMATED)2023-08-16 22:02:57* Test Item Value Reference Range Interpretation Comme nts POCT GLU (test code = 7781519157) 112 mg/dL 70-110 H Lab Interpretation (test cod e = 55163-7) [facility] 16:59:58* Test Item Value Reference Range Interpretation Comme nts POCT GLU (test code = 6619032626) 127 mg/dL 70-110 H Lab Interpretation (test cod e = 78787-2) [facility] 12:48:23* Test Item Value Reference Range Interpretation Comme nts POCT GLU (test code = 6909786177) 175 mg/dL 70-110 H Lab Interpretation (test cod e = 78724-2) Abnormal [facility] GLUCOSE (AUTOMATED)2023-08-16 02:07:02* Test Item Value Reference Range Interpretation Comme nts POCT GLU (test code = 4921444027) 195 mg/dL 70-110 H Notified Provide r Lab Interpretation (test code = 15042-1) Abnormal [facility] GLUCOSE (AUTOMATED)2023-08-15 21:36:15* Test Item Value Reference Range Interpretation Comme nts POCT GLU (test code = 5082452294) 284 mg/dL 70-110 H Lab Interpretation (test cod e = 23776-1) Abnormal [facility] GLUCOSE (AUTOMATED)2023-08-15 16:56:02* Test Item Value Reference Range Interpretation Comme nts POCT GLU (test code = 9243707207) 74 mg/dL 70-110 Lab Interpretation (test cod e = 06203-8) [facility]2023-08-15 13:12:34* Test Item Value Reference Range Interpretation Comme nts POCT GLU (test code = 7814023201) 258 mg/dL 70-110 H Lab Interpretation (test cod e = 73641-0) [facility]2023-08-15 04:04:43* Test Item Value Reference Range Interpretation Comme nts POCT GLU (test code = 6836474839) 120 mg/dL 70-110 H Lab Interpretation (test cod e = 16672-4) [facility]normal [facility] CenterGlycosylated Hemoglobin (A1C)2023-08-15 01:17:32* Test Item Value Reference Range Interpretation Comme nts HGB A1C (test code = 4548-4) 8.9 % 4.0-5.7 H GINA (test code = GINA) Reference RangesNormal: <5.7%Prediabetes: 5.7 - 6.4%Diabetes: > 6.5% Lab Interpretation (test code = 80603-6) Abnormal [facility] CenterBeta Wvdwaxm-Kmmsadwn6994-08-21 01:00:45* Test Item Value Reference Range Interpretation Comme nts BOH (test code = 5394488043) 0.5 mmol/L GINA (test code = GINA) Normal Ranges: ? ? Nonfasting ? Less than 0.1 mmol/L ? ? Overnight Fast ? ? ? Less than 0.4 mmol/L ? ? Fasting (1-2 weeks) ?6-8 mmol/L Test developed and characteristics determined by [facility] Laboratory Services. [facility] CenterCreatine Abyzwf1801-87-25 23:07:16* Test Item Value Reference Range Interpretation Comme nts CK (test code = 2192366399) 148 U/L 33-194 Lab Interpretation (test cod e = 59773-0) Normal [facility] CenterTROPONIN [id number] 22:18:16* Test Item Value Reference Range Interpretation Comme nts TROPONIN I (test code = 3285556082) 0.081 ng/mL <=0.034 H GINA (test code [...] of biotin. Lab Interpretation (test code = 05475-5) Abnormal [facility] CenterN-TERMINAL [id number]-[id number] 22:15:55* Test Item Value Reference Range Interpretation Comme nts NT-proBNP (test code = 29596-1) 999 pg/mL <=125 H GINA (test code = GINA) Positive: Heart Failure Likely Lab Interpretation (test code = 43448-6) Abnormal [facility] CenterMagnesium2024-04-20 22:07:17* Test Item Value Reference Range Interpretation Comme nts MAGNESIUM (test code = 9111981056) 1.8 mg/dL 1.7-2.4 Lab Interpretation (test cod e = 51068-2) Normal [facility] CenterCOMP. METABOLIC PANEL (50991)2023 22:06:57* Test Item Value Reference Range Interpretation Comme nts NA (test code = 3462508252) 130 mmol/L 135-145 L K (test code = 2761707805) 3.4 mmol/L 3.5-5.0 L CL (test code = 6785985664) 93 mmol/L 98-108 L CO2 TOTAL (test code = 6392292352) 26 mmol/L 23-31 AGAP (test code = 7021942643) 11 2-16 BUN (test code = 2442418839) 39 mg/dL 7-23 H GLUCOSE (test code = 5516844042) 142 mg/dL 70-110 H CREATININE (test code = 2160-0) 2.40 mg/dL 0.60-1.25 H TOTAL BILI (test code = 1874262794) 1.2 mg/dL 0.1-1.1 H CALCIUM (test code = 3695810256) 9.1 mg/dL 8.6-10.6 T PROTEIN (test code = 5332011268) 7.7 g/dL 6.3-8.2 ALBUMIN (test code = 4002224099) 4.2 g/dL 3.5-5.0 ALK PHOS (test code = 5380089320) 102 U/L 34-122 ALTv (test code = 1742-6) 16 U/L 5-50 AST(SGOT) (test code = 5792969521) 26 U/L 13-40 eGFR (test code = 59144-8) 30.9 mL/min/1.73m2 CKD-EPI eGFR (2020). Assuming creatinine has been stable day-to-day for at least three months, the eGFR indicates Category G3b (30 - 44 mL/min/1.73 m2) Lab Interpretation (test code = 35408-4) Abnormal [facility] CenterPhosphorus2024-04-20 22:06:37* Test Item Value Reference Range Interpretation Comme nts PHOSPHORUS (test code = 2398334724) 4.9 mg/dL 2.5-5.0 Lab Interpretation (test cod e = 16765-7) Normal [facility] CenterLIPASE2024-04-20 22:06:17* Test Item Value Reference Range Interpretation Comme nts LIPASE (test code = 0628941832) 204 U/L 0-220 Lab Interpretation (test cod e = 52837-9) Normal [facility] CenterCBC WITH [id number] 21:54:56* Test Item Value Reference Range Interpretation [...] g/dL 31.2-35.0 H RDW-SD (test code = 75839-7) 38.1 fL 38.5-51.6 L RDW-CV (test code = 788-0) 11.8 % 12.1-15.4 L PLT (test code = 777-3) 235 150-328 MPV (test code = 95753-8) 11.1 fL 9.8-13.0 NRBC/100 WBC (test code = 6891220537) 0.0 0.0-10.0 NRBC x10^3 (test code = 7002843744) See_Comment [Automated message] The system which generated this result transmitted reference range: 10*3/?L. The reference range was not used to interpret this result as normal/abnormal. GRAN MAT (NEUT) % (test code = 770-8) 80.3 % IMM GRAN % (test code = 1086669162) 0.60 % LYMPH % (test code = 736-9) 8.7 % MONO % (test code = 5905-5) 10.0 % EOS % (test code = 713-8) 0.2 % BASO % (test code = 706-2) 0.2 % GRAN MAT x10^3(ANC) (test code = 5833350664) 10.18 10*3/uL 1.99-6.95 H IMM GRAN x10^3 (test code = 6416815454) 0.07 10*3/uL 0.00-0.06 H LYMPH x10^3 (test code = 731-0) 1.11 10*3/uL 1.09-3.23 MONO x10^3 (test code = 742-7) 1.27 10*3/uL 0.36-1.02 H EOS x10^3 (test code = 711-2) 0.03 10*3/uL 0.06-0.53 L BASO x10^3 (test code = 704-7) 0.03 10*3/uL 0.01-0.09 Lab Interpretation (test code = 13768-0) Abnormal [facility] CenterXR CHEST 1 [id number] 21:49:58EXAM: XR CHEST 1 2023 4:38 PM HISTORY: 58 years-old Male with r/o infilrate . TECHNIQUE: Portable AP view of the chest. COMPARISON: 04/21/2023 FINDINGS: Lines and tubes: None. Cardiomediastinal: The cardiomediastinal silhouette is unremarkable. Lungs and pleura: The lungs are clear. No focal consolidation,pneumothorax, or pleural effusion is seen. Included osseous structures show no acuteabnormality.[facility] CenterCT ABDOMEN PELVIS W [id number] 21:45:03EXAM: CT ABDOMEN AND PELVIS WITH CONTRAST [...] change involving the spine, sacroiliac jointsand hips ispresent.[facility] CenterCT TRAUMA HEAD WO [id number] 21:38:37FULL RESULT: Examination: CT TRAUMA HEAD WO CONTRAST on 2023 4:16 PM Clinical Indication: Headache, hypertensive Comparison: None Technique: Noncontrast imaging was obtained from base to vertex.Findings: The sulci and ventricles were unremarkable. There may be subtlewhite matter microvascularischemic changes, notably in the anteriorperiventricular region, but there is no evidence for hemorrhage or otherclearly acute intracranial process.[facility] CenterLactic Acid Whole Bapss9947-02-96 21:30:25* Test Item Value Reference Range Interpretation Comme nts LACTIC ACID (test code = 1831104427) 1.58 mmol/L 0.50-2.20 Lab Interpretation (test cod e = 80510-1) Normal [facility] CenterAcute Care Venous Blood [id number] 21:30:25 * Test Item Value Reference Range Interpretation Comme nts PH (test code = 0050733914) 7.34 7.32-7.42 PCO2 NOY (test code = 7231534137) 45 41-51 PO2 NOY (test code = 0243672692) 24 25-40 L HCO3 NOY (test code = 1463360273) 24 24-28 AC VBE(BEAKER) (test code = 2311107014) -1.9 mEq/L Lab Interpretation (test cod e = 86920-2) Abnormal [facility] GLUCOSE (AUTOMATED)2023 20:26:17* Test Item Value Reference Range Interpretation Comme nts POCT GLU (test code = 6868136285) 165 mg/dL 70-110 H Lab Interpretation (test cod e = 93346-2) Abnormal [facility] GLUCOSE(AGE >30DAYS)2023 20:26:00* Test Item Value Reference Range Interpretation Comme nts POCT Glu (age>30days) (test code = 3342) 165 mg/dL 70-110 A Lab Interpretation (test cod e = 33802-1) Abnormal [facility] GLUCOSE (AUTOMATED)2023-04-23 18:15:28* Test Item Value Reference Range Interpretation Comme nts POCT GLU (test code = 0688378430) 218 mg/dL 70-110 H Lab Interpretation (test cod e = 00179-3) [facility]2023-04-23 15:35:23* Test Item Value Reference Range Interpretation Comme nts POCT GLU (test code = 0173763051) 186 mg/dL 70-110 H Lab Interpretation (test cod e = 35310-4) Abnormal [facility] GLUCOSE (AUTOMATED)2023-04-23 02:57:57* Test Item Value Reference Range Interpretation Comme nts POCT GLU (test code = 7364102536) 82 mg/dL 70-110 Lab Interpretation (test cod e = 78522-0) Normal [facility] GLUCOSE (AUTOMATED)2023-04-23 00:33:51* Test Item Value Reference Range Interpretation Comme nts POCT GLU (test code = 0038580438) 181 mg/dL 70-110 H Lab Interpretation (test cod e = 32000-9) Abnormal [facility] GLUCOSE (AUTOMATED)2023-04-22 22:54:22* Test Item Value Reference Range Interpretation Comme nts POCT GLU (test code = 9585482002) 127 mg/dL 70-110 H Lab Interpretation (test cod e = 04254-1) Abnormal [facility] GLUCOSE (AUTOMATED)2023-04-22 20:37:54* Test Item Value Reference Range Interpretation Comme nts POCT GLU (test code = 6611125469) 230 mg/dL 70-110 H Lab Interpretation (test cod e = 34116-3) Abnormal [facility] GLUCOSE (AUTOMATED)2023-04-22 17:46:23* Test Item Value Reference Range Interpretation Comme nts POCT GLU (test code = 2230893108) 144 mg/dL 70-110 H Lab Interpretation (test cod e = 63847-5) Abnormal [facility] GLUCOSE (AUTOMATED)2023-04-22 13:42:26* Test Item Value Reference Range Interpretation Comme nts POCT GLU (test code = 9554073220) 229 mg/dL 70-110 H Lab Interpretation (test cod e = 51249-1) Abnormal [facility] GLUCOSE (AUTOMATED)2023-04-22 03:33:49* Test Item Value Reference Range Interpretation Comme nts POCT GLU (test code = 3002558879) 222 mg/dL 70-110 H Lab Interpretation (test cod e = 28255-3) Abnormal [facility] GLUCOSE (AUTOMATED)2023-04-22 01:36:03* Test Item Value Reference Range Interpretation Comme nts POCT GLU (test code = 6563106087) 282 mg/dL 70-110 H Lab Interpretation (test cod e = 65913-8) Abnormal [facility] CenterEchocardiogram dobutamine stress test 2023-04-21 22:26:30* Test Item Value Reference Range Interpretation Comme nts Height (test code = 1013612821) 63 in Weight (test code = 5869872688) 130 lbs Systolic BP (test code = 1907804494) 122 mmHg Diastolic BP (test code = 7832451693) 81 mmHg Heart Rate (test code = 3407822541) 105 bpm BSA (test code = 0932995435) 1.[address] Depresion (mm) (test code = 9240326134) [address] Depression (mm) (test code = 7685450652) 0 mm Radiology Study observation (narrative) (test code = 37728-7) GINA (test code = GINA) Table formatting [...] left ventricular wall motion is globally hyperkinetic. [facility] CenterTransthoracic echo (TTE)2023-04-21 18:05:03* Test Item Value Reference Range Interpretation Comme nts Height (test code = 0648647924) 63 in Weight (test code = 0697011906) 130 lbs Systolic BP (test code = 4240286216) 114 mmHg Diastolic BP (test code = 8809459561) 75 mmHg Heart Rate (test code = 6382122124) 98 bpm BSA (test code = 5947300415) 1.61 m2 LVIDD (test code = 4496142369) 4.00 cm Left Ventricular End Diastolic Volume by Teichholz Method (test code = 3094700) 70.0 mL IVS (test code = 1562220897) 1.07 cm Interventricular Septum Diastolic Thickness by 2D (test code = 4862913) 1.07 cm LVPWD (test code = 8545574489) 1.05 cm PW (test code = 5126806090) 1.05 cm 0.6-1.1 EF(Teich) (test code = 3038510614) 62.60 % LVIDS (test code = 4903358607) 2.70 cm Left Ventricular End Systolic Volume by Teichholz Method (test code = 2692812) 26.2 mL FS (test code = 8376511958) 33 % EF - 2D (test code = 68634320) 62.60 % Ao root diam (test code = 1725791672) 3.70 cm Aortic root (test code = 2469792340) 3.7 cm Ao root annulus (test code = 2917093140) 3.7 cm LA size (test code = 9115243798) 3.2 cm LVOT diameter (test code = 6644662050) 2.08 cm LVOT area (test code = 9784285656) 3.40 cm2 MV Peak E Nima (test code = 8689543549) 48.3 cm/s E wave decelartion time (test code = 3352168548) 0.15 s MV Peak A Nima (test code = 0426137143) 74.4 cm/s E/A ratio (test code = 5985843107) 0.65 ratio MV Prop V (test code = 8117196682) 21.20 cm/s LAV(MOD-sp4) (test code = 6597001078) 35.30 mL Tapse (test code = 9856696442) 1.73 cm LVOT stroke volume (test code = 9643507788) 45.20 cm3 LVOT peak nima (test code = 0479026519) 79.0 cm/s LVOT mn grad (test code = 3835042403) 1.3 mmHg AV LVOT peak gradient (test code = 1930115558) 2.50 mmHg LVOT peak VTI (test code = 1039751132) 13.2 cm LV V1 mean (test code = 8507831452) 52.90 cm/s Ao peak nima (test code = 9289469238) 83.8 cm/s AV area peak nima (test code = 5296132252) 3.2 cm2 Ao max PG (test code = 0723170040) 2.80 mm[Hg] AV peak gradient (test code = 7021588452) 2.8 mmHg LA Volume Index (BP) (test code = 5474908040) 25.9 mL/m2 LA volume (BP) (test code = 5649850117) 41.8 mL LAV(MOD-sp2) (test code = 0038701896) 40.90 mL A4C EF (test code = 7255613903) 54.40 % EF(sp4-el) (test code = 1052840537) 55.00 % SV(MOD-sp4) (test code = 6509933261) 53.10 mL SV(sp4-el) (test code = 5333555191) 55.60 mL Radiology Study observation (narrative) (test code = 75878-1) GINA (test code = GINA) ?Left?Ventricle: Left [...] enhancing agent used. Patient exhibited sinus rhythm. [facility] ([facility])2023-04-21 17:48:26* Test Item Value Reference Range Interpretation Comme nts POCT GLU (test code = 4412129698) 198 mg/dL 70-110 H Lab Interpretation (test cod e = 20648-7) Abnormal [facility] CenterXR CHEST 1 [id number] 15:12:07EXAM: XR CHEST 1 VW HISTORY: NSTEMI COMPARISON: None. FINDINGS: Small bandlike densities in the left midlung have more the appearance ofatelectasis than pneumonia. The lungs are well expanded and clearotherwise. The heart and great vessels are normal except for calcium in thearch of the aorta.[facility] CenterPOCT GLU[facility]SE (AUTOMATED)2023-04-21 09:39:57* Test Item Value Reference Range Interpretation Comme nts POCT GLU (test code = 0659900416) 243 mg/dL 70-110 H Lab Interpretation (test cod e = 22835-3) Abnormal [facility] CenterFerritin Kmelf6520-64-18 07:28:27* Test Item Value Reference Range Interpretation Comme nts FERRITIN (test code = 5326689583) 76.3 ng/mL 18.0-464.0 GINA (test code = GINA) Biotin has been reported to cause a negative bias, interpret results relative to patient's use of biotin. Lab Interpretation (test code = 93899-5) Normal [facility] CenterGlycosylated Hemoglobin (A1C)2023-04-21 07:25:47* Test Item Value Reference Range Interpretation Comme [facility] HGB A1C (test code = 4548-4) 12.6 % 4.0-5.7 H GINA (test code = GINA) Reference RangesNormal: <5.7%Prediabetes: 5.7 - 6.4%Diabetes: > 6.5% Lab Interpretation (test code = 55676-5) Abnormal [facility] CenterThyroid Stimulating Hjshfzh9987-63-38 07:24:07 * Test Item Value Reference Range Interpretation Comme nts TSH (test code = 4064866160) 2.56 See_Comment [Automated [employer] ge] The system which generated this result transmitted reference range: 0.45 - 4.70 mIU/L. The reference range was not used to interpret this result as normal/abnormal. Lab Interpretation (test code = 00809-4) Normal [facility] CenterPhosphorus2023-12-27 06:52:06* Test Item Value Reference Range Interpretation Comme nts PHOSPHORUS (test code = 0754992339) 3.2 mg/dL 2.5-5.0 Lab Interpretation (test cod e = 77604-5) Normal [facility] CenterCritical Pimv9624-12-07 02:54:15NSergio chin MD ? ? 04/20/2023 ?8:54 [...] procedures and treating other patients. [facility] [id number] 02:30:18* Test Item Value Reference Range Interpretation Comme nts TROPONIN I (test code = 1097206710) 0.154 ng/mL <=0.034 H GINA (test code [...] of biotin. Lab Interpretation (test code = 83463-7) Abnormal [facility] CenterETHANOL2023-12-27 02:24:46 ALCOHOL<10mg/dL04/20/2023 8:24 PM [facility]10 Iztqbqpc43-566 Toxic>100 Depression of OXIDATION OPERATOR>400 Fatalities ReportedUnBaylor Scott & [facility] ClubCOMP. METABOLIC PANEL (17780)2023-04-21 02:19:15* Test Item Value Reference Range Interpretation Comme nts NA (test code = 6822723225) 129 mmol/L 135-145 L K (test code = 1006616555) 3.5 mmol/L 3.5-5.0 CL (test code = 8636821697) 94 mmol/L 98-108 L CO2 TOTAL (test code = 6153308925) 28 mmol/L 23-31 AGAP (test code = 6438723357) 7 2-16 BUN (test code = 8915972575) 26 mg/dL 7-23 H GLUCOSE (test code = 6118951807) 314 mg/dL 70-110 H CREATININE (test code = 9964414173) 0.92 mg/dL 0.60-1.25 TOTAL BILI (test code = 3449264782) 0.8 mg/dL 0.1-1.1 CALCIUM (test code = 0310236468) 8.5 mg/dL 8.6-10.6 L T PROTEIN (test code = 8651336903) 6.0 g/dL 6.3-8.2 L ALBUMIN (test code = 1827197988) 3.3 g/dL 3.5-5.0 L ALK PHOS (test code = 6702830200) 95 U/L 34-122 ALTv (test code = 1742-6) 23 U/L 5-50 AST(SGOT) (test code = 6276841141) 30 U/L 13-40 eGFR (test code = 73378-5) 98.2 mL/min/1.73m2 CKD-EPI eGFR (2020). Assuming creatinine has been stable day-to-day for at least three months, the eGFR indicates Category G1 (>= 90 mL/min/1.73 m2) Lab Interpretation (test code = 47927-5) Abnormal [facility] WITH [id number] 02:03:54* Test Item Value Reference Range Interpretation [...] g/dL 31.2-35.0 H RDW-SD (test code = 49281-6) 36.2 fL 38.5-51.6 L RDW-CV (test code = 788-0) 11.6 % 12.1-15.4 L PLT (test code = 777-3) 178 See_Comment [Automated messa ge] The system which generated this result transmitted reference range: 150 - 328 10*3/?L. The reference range was not used to interpret this result as normal/abnormal. MPV (test code = 07054-0) 10.9 fL 9.8-13.0 NRBC/100 WBC (test code = 8147886523) 0.0 See_Comment [Automated me ssage] The system which generated this result transmitted reference range: 0.0 - 10.0 /100 WBCs. The reference range was not used to interpret this result as normal/abnormal. NRBC x10^3 (test code = 1304989425) See_Comment [Automated messa ge] The system which generated this result transmitted reference range: 10*3/?L. The reference range was not used to interpret this result as normal/abnormal. GRAN MAT (NEUT) % (test code = 770-8) 81.3 % IMM GRAN % (test code = 8707539101) 0.30 % LYMPH % (test code = 736-9) 10.5 % MONO % (test code = 5905-5) 7.6 % EOS % (test code = 713-8) 0.1 % BASO % (test code = 706-2) 0.2 % GRAN MAT x10^3(ANC) (test code = 6140006412) 9.55 10*3/uL 1.99-6.95 H IMM GRAN x10^3 (test code = 0835535677) 0.04 10*3/uL 0.00-0.06 LYMPH x10^3 (test code = 731-0) 1.23 10*3/uL 1.09-3.23 MONO x10^3 (test code = 742-7) 0.89 10*3/uL 0.36-1.02 EOS x10^3 (test code = 711-2) 0.06-0.53 L BASO x10^3 (test code = 704-7) 0.01-0.09 Lab Interpretation (test code = 35006-0) Abnormal [facility] CenterPOCT GLUCOSE (AUT[facility]ATED)2023-04-21 01:55:51* Test Item Value Reference Range Interpretation Comme nts POCT GLU (test code = 1383537051) 408 mg/dL 70-110 H Lab Interpretation (test cod e = 71615-2) Abnormal [facility] CenterCOMPREHENSIVE METABOLIC [id number] 05:07:51* Test Item Value Reference Range Interpretation Comme nts GLUCOSE (test code = 2217) 224 MG/DL 70-99 H BUN (test code = 2208) 22 MG/DL 6-20 H CREATININE (test code = 2214) 0.71 MG/DL 0.80-1.40 L eGFR (2020 CKD-EPI) (test code = 61959) 109 ML/MIN/1.73 >60 CALC BUN/CREAT (test code [...] code = 2218) 24 U/L 5-50 LIPID [id number] 05:07:51* Test Item Value Reference Range Interpretation [...] SPECIMENS. FOR MOREINFORMATION, SEE CLIENT ANNOUNCEMENT AT [email or web address] RISK RATIO LDL/HDL (test code = 2238) 1.72 RATIO <3.55 PSA, [id number] 05:07:10* Test Item Value Reference Range Interpretation Comme nts PSA, TOTAL (test code = 2606) 19.70 NG/ML See_Comment H NOTE: Methodolog y is Ashley Jasmina Electrochemiluminescence Immunoassay traceable to WHO reference standard 96/760. UNLESS OTHERWISE INDICATED, ALL TESTING PERFORMED [facility] PATHOLOGY [employer] [address] [place] [id number] CONSULTING ENGINEER: DUSTIN COLMENARES M.D. CLIA NUMBER [id number] [place]. [id number] [Automated message] The system which generated this result transmitted reference range: <=4.00. The reference range was not used to interpret this result as normal/abnormal. HEMOGLOBIN [id number] 02:46:58* Test Item Value Reference Range Interpretation Comme nts HEMOGLOBIN A1c (test code = 29125) 11.0 % 4.2-5.6 H [employer] GUIDELINES FOR HGB A1C: [...] OR LABORATORY CONSULTATION. CBC W/AUTO DIFF WITH [id number] 02:32:39* Test Item Value Reference Range Interpretation [...] 0.00-0.10 ABS NUCLEATED RBCS (test code = 31810) 0.00 K/UL 0.00-0.11 Consult Notes Date/Time Note [...] when jensen is moved. COMMUNICATION Primary Language: Kittitian Able to Verbalize needs: Yes Vision:good; no [...] Minutes: 20 min Jesica Murphy,PT [place] License: [id number] Required Components in Determining Evaluation Level History: No personal factors or comorbidities: No (76386) 1-2 personal factors and/or comorbidities: Yes (41260) 3 or more personal factors and/ or comorbidities: No (10208) Examination of Body System(s) Addressing 1-2 elements: Yes (21439) Addressing a total of 3 or more elements: No (08136) Addressing a total of 4 or more elements: No (03593) Clinical Presentation Stable: Yes (29619) Evolving: No (52888) Unstable: No (84593) Clinical Decision Making (Complexity) Low: No (67797) Moderate: Yes (64016) High: No (00383) Jesica Murphy PT [facility] - Scheduling Employee Scheduling Software 2023-08-15 10:01:34 Associated Order(s): CONSULT CARDIOLOGY [facility] [...] of Onset No Significant Medical Problems Mother MS (myocardial infarction) Father SOCIAL HISTORY Social History [...] specified complication Elevated troponins: Likely type II MS in the setting of underlying ELIEZER/elevated blood [...] A1C Results ([facility]/, POCT, [place]) Recent Labs 04/20/23195408/14/23 [...] feel free to call our office at [phone]. I would be happy to be of further assistance for Saturnino Shah wellbeing. Voice recognition software has been used to create portions of this document. An attempt to proofread has been made to minimize errors. Please do not hesitate to call with any questions. Benja Rivera MD Solutions Sales Executive, Division of Cardiology [facility] 2023-04-21 08:46:48 Associated Order(s): CONSULT ENDOCRINOLOGY Endocrinology Consult Note Consultation requested by: Service: White team Reason for Consultation: Diabetes Date of Service: 04/21/23 HPI 57 year old male with a PMH of HTN, T2DM, Fmhx premature CAD who presented with complaints of polyuria and weakness at [facility] ER. Patient transferred to [place] for further work up. Endocrinology consulted for diabetes management Diabetes Type and year diagnosed: 2011, type 2 Diabetes complications: none Hx of DM regimen: no meds for 3 years Compliance: - BG monitoring? - Hypoglycemia hx: no Hypoglycemia unawareness? no Symptoms of hyperglycemia: polyuria Living situation and support: homeless, lives with different relatives Diabetes doctor: PCP in [place], has not seen for few years Family hx of diabetes: no HX of glucocorticoid use: no HX of transfusions or EPO in last 6 months: no PAST MEDICAL HISTORY Past Medical History: Diagnosis Date HTN (hypertension) Uncontrolled diabetes mellitus with hyperglycemia History reviewed. No pertinent surgical history. Family History Problem Relation Age of Onset No Significant Medical Problems Mother MS (myocardial infarction) Father Social History Tobacco Use [...] complaints of polyuria and weakness at [facility] ER. Patient transferred to [place] for further work up. Endocrinology consulted for [...] pay, need NPH and Regular insulin to [facility] ([employer]) -Need insulin vials, syringe needles, glucometer, test strips, lancets -Need meds to bed before discharge -Please contact Endocrine before discharge - Case discussed with Dr. Cabrera.. Austin Amaro. Endocrinology Fellow, PGY 5 [employer]EL[employer] TECHNOLOGY DEVELOPMENT MANAGER Associated attestation - Rita Cabrera MD - 04/22/2023 2:11 PM [employer] TECHNOLOGY DEVELOPMENT MANAGER Endocrinology Faculty Attestation: I evaluated this patient's progress on 04/21/[address] Amaro note as written and revised. I actively participated in the decision-making process. Please see the resident's note for additional details that includes pertinent addendums I made directly in the note during revision. Rita Cabrera MD Solutions Sales Executive Division of Endocrinology IM-ENDOCRINOLOGY,DIABET ES & METABOLISM [facility] - Health History and Physical Notes Date/Time Note Provider Source 2023-08-21 22:53:[address] [facility] Hospitalist Admission H&P Date of [...] consulted. Patient was given the application for [employer] on last admission and will need to [...] of Onset No Significant Medical Problems Mother MS (myocardial infarction) Father SOCIAL HISTORY Social History [...] user?: NO Patient will require observation [place] ETHNOARCHAEOLOGIST was verified during stay Lyubov Banda MD [facility] 2023 22:58:21 MEDICINE MEGADC ADMIT [...] of Onset No Significant Medical Problems Mother MS (myocardial infarction) Father ALLERGIES No Known Allergies [...] present Code Status: Presumed Full Code T [facility] EMERGENCY PH[facility]IC[facility] STAFF [facility] 2023-04-21 00:39:12 MCAWHITE Admit H&P PCP: Erik Louie Jr Date of Service: 04/20/2023 CHIEF COMPLAINT: Polyuria HISTORY OF PRESENT ILLNESS Saturnino Shah is a 57 year old male with a PMH of HTN, T2DM, Fmhx premature CAD who presented with complaints of polyuria and weakness at [facility] ER. Patient transferred to [place] for further work up. Patient reports that [...] or drug use. Family history significant for MS in father in his 40s. Currently not [...] use drugs. Family history: family history includes MS (myocardial infarction) in his father; No Significant [...] help with resources. Plan: - Admit to [facility] - Trend Troponin to peak - [...] Internal Medicine Department PGY 2, [place] Team UELS TECHNOLOGY DEVELOPMENT MANAGER Associated attestation - Bret Banda MD - 04/21/2023 2:47 PM [employer] TECHNOLOGY DEVELOPMENT MANAGER I reviewed patient's chart, vitals, lab work, current medications and other diagnostic studies. I saw and examined the patient today and agree with the detailed note. I actively participated in the decision-making process. Bret Banda MD Solutions Sales Executive Division of Cardiology [facility] - Health Notes Date/Time Note [...] Outcome: Adequate for discharge Kalina Georges RN [facility] 2023-08-24 13:14:04 Problem: Pain Goal: Control of [...] Absence of falls Outcome: Adequate for discharge [facility] 2023-08-23 07:12:12 Problem: Pain Goal: Control of [...] Progressing as expected T Abi Lowery RN [facility] 2023-08-22 22:07:54 Problem: Pain Goal: Control of [...] Outcome: Progressing as expected Tammy Sweeney RN [facility] 2023-08-22 08:41:53 Problem: Pain Goal: Control of [...] Outcome: Progressing as expected Mihaela Lopez RN [facility] 2023-08-22 03:26:01 Problem: Pain Goal: Control of [...] Outcome: Progressing as expected Angeline Claudio RN [facility] 2023-08-21 23:32:26 Patient admitted to [facility] 2101 for diagnosis of ELIEZER, urinary obstruction Patient agrees to admission, discussed plan of care with patient and family. Patient is awake, alert, oriented, resp reg unlabored, color appropriate for race, PIV intact No adverse reaction to medications administered while in ED Belongings with patient to unit Report to [facility] RN Chela Reyes RN [facility] 2023-08-21 19:43:36 Pt C/O RLQ pain that started yesterday, pt states last BM 08/16/2023. Pt denies any urinary, nausea or vomiting Sydney Duff RN [facility] 2023-08-21 19:39:[address] [facility] Emergency Department Note Patient Name: Saturnino Shah Date of : 1965 58 year old male Treatment Room: [place] [address] Primary Care Physician: Erik Louie Jr Patient Escorted by: Self [9] Mode of Arrival: EMS - [place] [46] EMS Treatment Prior to ED Arrival: MACROECONOMICS PROFESSOR treatment: None Travel and Exposure Screening: Symptoms [...] 0.01 - 0.09 10*3/uL COMP. METABOLIC PANEL (87207) - Abnormal NA 120 (*) 135 - [...] CONTRAST Cbc with Diff Comp. Metabolic Panel (46048) Lipase Urinalysis Basic Metabolic Panel (NA, K, [...] treatment AdmissionCare documentation entered by: Cosme Cardona [facility] Scheduling Employee Scheduling Software, 27th edition, Copyright ? 2022 [facility] [employer] All Rights Reserved. [id number]:26:32-05:00 ED COURSE ED Course as of 08/21/235 [...] Electronically signed by: Cosme Cardona DO 08/21/232254 [facility] 2023-08-21 19:39:00 AdmissionCare Guideline: Urologic [...] treatment AdmissionCare documentation entered by: Cosme Cardona [facility] Scheduling Employee Scheduling Software, 27th edition, Copyright ? 2022 [facility] [employer] [facility] All Rights Reserved. [id number]:26:32-05:00 [facility] 2023-08-17 08:32:29 ----- Message from Yary Renner [...] with one of us in 3-4 weeks. [facility] 2023-08-16 17:56:55 Summary: discharge transportation Discharge paperwork provided, patient stated he does not have a ride. Transportation was arranged with voucher. Discharge location: [address] [place] [address] Patient verbalized understanding. T Hilary Quinones RN [facility] 2023-08-16 17:19:16 Problem: Pain Goal: Control of pain at or below patient's documented comfort goal Outcome: Resolved Goal: Reduction in pain sensation Outcome: Resolved Problem: Skin integrity Impaired (Risk or Actual) Goal: Prevention of new skin breakdown Outcome: Resolved Problem: Venous Thromboembolism, (actual or risk of) Goal: Absence of venous thromboembolism (Risk) Outcome: Resolved [facility] 2023-08-16 10:33:18 Summary: jensen Jensen discontinued without complications. Patient given lactulose PO. Patient notified to notify nurse and to leave urine/stool before flushing for nursing staff to assess. Patient verbalized understanding. [facility] 2023-08-16 00:51:24 Problem: Pain Goal: [...] venous thromboembolism (Risk) Outcome: Progressing as expected [facility] 2023-08-15 19:27:06 Problem: Pain Goal: [...] Outcome: Progressing as expected Libia Johnson RN [facility] 2023 23:43:36 Problem: Pain Goal: Control of pain at or below patient's documented comfort goal Outcome: Progressing as expected Goal: Reduction in pain sensation Outcome: Progressing as expected Problem: Skin integrity Impaired (Risk or Actual) Goal: Prevention of new skin breakdown Outcome: Progressing as expected Problem: Venous Thromboembolism, (actual or risk of) Goal: Absence of venous thromboembolism (Risk) Outcome: Progressing as expected [facility] 2023 23:01:15 Patient admitted to [facility] for diagnosis of Hypertension, elevated troponin, urine retention, ELIEZER, hypokalemia. Patient agrees to admission, discussed plan of care with patient and family. Patient is awake, alert, oriented, resp reg unlabored, color appropriate for race, PIV intact No adverse reaction to medications administered while in ED Belongings with patient to unit Report to [facility] RN Josi Miller RN [facility] 2023 18:56:57 Handoff report given to Josi VILLAGRAN Nunu Fang RN [facility] 2023 14:42:29 Has been out of diabetic, BP meds since April. States he can't "afford it". Struggling with constipation for "several days". He called EMS today for excessive fatigue and worsening hypertension. He is A&Ox4 and able to ambulate. Alba Hernandez RN [facility] - Health 2023 14:38:00 Associated Order(s): EKG-12 Lead ROUTINE ONCE Pre-Procedure Diagnose(s): Hypertension, unspecified type Post-Procedure Diagnose(s): Hypertension, unspecified type; Elevated troponin I level; Urine retention [facility] Emergency Department Note Patient Name: Saturnino Shah Date of : 1965 58 year old male Treatment [facility]: [facility] Primary Care Physician: Erik Louie Jr Patient Escorted by: Self [9] Mode of Arrival: EMS - [place] [46] EMS Treatment Prior to ED Arrival: [...] History provided by: Patient and medical records line tester used: No Past Medical History/Immunizations: Past Medical [...] ED Events Date/Time Event User Comments 08/14/23 6008 Medical Screening Begins UMANG REYNAGA MD -- [...] ED Physician in the absence of a commercial property administrator: yes Previous ECG: Previous ECG: Compared to [...] signed by: Umang Reynaga MD 04/20/24 1852 [facility] Scheduling Employee Scheduling Software 2023 14:38:00 AdmissionCare Guideline: Renal Failure (Acute), [...] assessments) AdmissionCare documentation entered by: Umang Reynaga [employer], edition, Copyright ? 2022 [employer] All Rights Reserved. [id number]:45:18-05:00 [facility] Scheduling Employee Scheduling Software 2023 14:38:00 AdmissionCare Guideline: Renal Failure (Acute) [...] patients) AdmissionCare documentation entered by: Umang Reynaga [employer], edition, Copyright ? 2022 [employer] All Rights Reserved. [id number]:00:25-05:00 [facility] 2023-04-27 15:56:14 TRANSITIONAL CARE MANAGEMENT ASSESSMENT 04/27/2023 Saturnino Shah [id number] Saturnino Shah is a 57 year old /White male was admitted on 04/20/[address] He was discharged on 04/23/23 with [...] to check in. No linked episodes TCM [id number]-[id number] outreach documentation: Future Appointments: UELS TECHNOLOGY DEVELOPMENT MANAGER Jeannette Dawn LVN [facility] 2023-04-23 18:39:42 Patient refuses to take taxi voucher which takes him directly to [facility] [employer] stating, "My brother is on his way to pick me up. I don't want to upset him as it is anymore." When asked if his brother is going to take him to [facility] [employer], patient stated, "I don't know. That will be between me and my brother." Transportation in room, wheeled patient downstairs to [facility]. UELS TECHNOLOGY DEVELOPMENT MANAGER Meme Sparks RN [facility] 2023-04-23 17:33:42 Problem: Glucose control Goal: Glucose [...] Outcome: Progressing as expected A Whiting RN [facility] 2023-04-23 17:33:03 Problem: Glucose control Goal: Glucose [...] Valentino Whiting RN Outcome: Progressing as expected [facility] 2023-04-23 10:51:50 Problem: Glucose control Goal: Glucose [...] of cognitive ability Outcome: Progressing as expected [facility] 2023-04-23 00:56:44 Problem: Mental Status - Impaired Goal: Able to achieve maximum level of cognitive ability Outcome: Progressing as expected [facility] 2023-04-23 00:52:07 Problem: Glucose control Goal: Glucose [...] within specified parameters Outcome: Progressing as expected [facility] 2023-04-22 08:03:00 Problem: Glucose control Goal: Glucose [...] within specified parameters Outcome: Progressing as expected [facility] 2023-04-20 23:38:56 Problem: Glucose control Goal: Glucose [...] within specified parameters Outcome: Progressing as expected [facility] 2023-04-20 21:49:51 Patient admitted to [facility] ROOM 923 for diagnosis of WEAKNESS, NSTEMI, HYPERGLYCEMIA Patient agrees to admission, discussed plan of care with patient. Patient is awake, alert, oriented, resp reg unlabored, color appropriate for race, PIV intact No adverse reaction to medications administered while in ED Belongings with patient to unit Report to MARIE VILLAGRAN REPORT GIVEN TO MEDIC FOR [facility], PT LOADED TO BE TRANSFERRED. HEPARIN INFUSING AT 700 UNITS/ HOUR. [facility] Jaelyn Vargas RN [facility] 2023-04-20 21:38:11 Report called to [facility], spoke with Marie VILLAGRAN. Pt awaiting EMS transfer. [facility] 2023-04-20 20:59:06 [facility] ETA 45 MIN per Chen A Carrero PCT [facility] 2023-04-20 20:54:15 Associated Order(s): Critical Care Critical [...] separately billable procedures and treating other patients. [facility] Scheduling Employee Scheduling Software 2023-04-20 20:00:00 Patient aware of UA sample needed. Unable to provide sample at this moment. Urinal at bedside. Call light within reach. 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 Per patient he was diagnosed with DM five years ago and stopped taking home meds-Metformin about three years ago. Patient c/o of being weak and increased UOP. Patient was nauseous MACROECONOMICS PROFESSOR but has resolved since. UELS TECHNOLOGY DEVELOPMENT MANAGER [facility] 2023-04-20 19:43:00 EMERGENCY DEPARTMENT ENCOUNTER [facility] Patient Name: Saturnino Shah Date of : 1965 57 year old Exam Room:Room/bed info not found Primary Care Physician: No primary care provider on file. 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 Per patient he was diagnosed with DM five years ago and stopped taking home meds-Metformin about three years ago. Patient c/o of being weak and increased UOP. Patient was nauseous MACROECONOMICS PROFESSOR but has resolved since. HPI History provided [...] 0.01 - 0.09 10*3/uL COMP. METABOLIC PANEL (87838) - Abnormal NA 129 (*) 135 - [...] VW CBC WITH DIFF COMP. METABOLIC PANEL (11677) URINALYSIS URINE DRUG (IMMUNOASSAY) - COMPREHENSIVE DRUG SCREEN W/O REFLEX ETHANOL POCT GLUCOSE (AUTOMATED) Troponin I Prothrombin Time / INR aPTT aPTT (for use with Heparin Infusion) Ferritin Serum Iron Panel Troponin I Thyroid Stimulating Hormone Glycosylated Hemoglobin (A1C) Phosphorus Cbc with Diff Basic Metabolic Panel (NA, K, CL, CO2, GLUCOSE, BUN, CREATININE, CA) Magnesium Lipid Panel (53781)(Total Cholesterol, Triglycerides, HDL) O2 Per Protocol Orders [...] mg Procedures EKG Time 1950 Sinus tach [place] normal Intervals normal No acute ischemia Notes [...] demonstrates that he is having a silent MS. He has elevated troponin of 0.154. Please note he does not have any chest pain or shortness of breath. EKG does not demonstrate a STEMI. He was started on heparin, Plavix, and aspirin. The patient may require cardiac catheterization. The patient was transferred to [place] for further evaluation. History, physical exam findings, [...] this patient. Sergio Aponte Jr., MD Clinical Solutions Sales Executive [facility] Emergency Department [employer] D[employer] Software is used frequently and may produce errors. Promptly contact for obvious discrepancies. Sergio Aponte MD 04/21/23 0025 [facility] EMERGENCY PHYSICIAN STAFF [facility]
[2024-07-09] MEDS ORDERED: KETOROLAC 30 MG/ML INJ ONE (07:51)
--- NOTE | 2024-07-09 09:18 | RAD REPORT ---
EXAMINATION: XR Femur Right CLINICAL INDICATION: Male, 58 years old. PAIN RIGHT TECHNIQUE: 2 view radiograph of the right femur were obtained. COMPARISON: 06/28/2024 right femur radiographs. 07/06/2024 right knee radiographs Radiographs FINDINGS: No evidence of fracture or dislocation. Normal alignment. No evidence of arthropathy or oth er focal bone lesion. Vascular calcifications. Moderate to large right knee effusion has developed. IMPRESSION: Moderate to large knee joint effusion, worsened since prior exam. No other acute osseous abnormalitie s noted.
--- NOTE | 2024-07-09 09:30 | ER ---
Nurse's Notes [facility] Name: Johnnie Maldonado Age: 58 yrs Sex: Male : 1965 Arrival Date: 07/09/2024 Time: 07:22 Bed 18 Private MD: Diagnosis: Effusion, right knee;Fall (on)(from) sidewalk curb Presentation: 07/09 07:28 Chief complaint: Patient states: "I misjudged the curb and when I went to take a step kc6 by my knee gave out and I fell" - LOC, - blood thinners. Coronavirus screen: At this time, the client does not indicate any symptoms associated with coronavirus-19. Ebola Screen: No symptoms or risks identified at this time. Initial Sepsis Screen: Does the patient meet any 2 criteria? HR > 90 bpm. Does the patient have a suspected source of infection? No. Patient's initial sepsis screen is negative. Risk Assessment: Do you want to hurt yourself or someone else? Patient reports no desire to harm self or others. Onset of symptoms was July 09, 2024. Care prior to arrival: Glucose check: 344. 07:28 Method Of Arrival: EMS: [facility] kc6 07:28 Acuity: DONTE 4 kc6 Historical: - Allergies: 07:30 No Known Allergies; kc6 - PMHx: 07:30 Urinary incontinence; raynaud's; Hypertensive disorder; diabetes mellitus; kc6 - PSHx: 07:30 right arm; kc6 - Immunization history:: Adult Immunizations not up to date. - Infectious Disease History:: Denies. - Social history:: Smoking status: Patient denies any tobacco usage or history of. Screenin:30 [facility] ED Fall Risk Assessment (Adult) History of falling in the last 3 months, kc6 including since admission Yes- single mechanical fall (1 pt) Confusion or Disorientation No (0 pts) Intoxicated or Sedated No (0 pts) Impaired Gait No (0 pts) Mobility Assist Device Used No (0 pt) Altered Elimination Yes (1 pt) Score/Fall Risk Level 0 - 2 = Low Risk Oriented to surroundings, Maintained a safe environment, Educated pt \\T\\ family on fall prevention, incl call for assistance when getting out of bed. Abuse screen: Denies threats or abuse. Denies injuries from another. Nutritional screening: No deficits noted. Tuberculosis screening: No symptoms or risk factors identified. Assessment: 07:31 General: Appears in no apparent distress. comfortable, unkempt, well developed, kc6 Behavior is calm, cooperative, appropriate for age. Pain: Complains of pain in right knee. Neuro: Level of Consciousness is awake, alert, obeys commands, Oriented to person, place, time, situation, Appropriate for age. Cardiovascular: Capillary refill < 3 seconds. Respiratory: Airway is patent Trachea midline Respiratory effort is even, unlabored, Respiratory pattern is regular, symmetrical. GI: No signs and/or symptoms were reported involving the gastrointestinal system. : No signs and/or symptoms were reported regarding the genitourinary system. EENT: No signs and/or symptoms were reported regarding the EENT system. Derm: No signs and/or symptoms reported regarding the dermatologic system. Skin is intact, is healthy with good turgor, Skin is pink, warm \\T\\ dry. Musculoskeletal: Circulation, motion, and sensation intact. Range of motion: intact in all extremities. 08:31 Reassessment: Patient appears in no apparent distress at this time. No changes from kc6 previously documented assessment. Patient and/or family updated on plan of care and expected duration. Pain level reassessed. Patient is alert, oriented x 3, equal unlabored respirations, skin warm/dry/pink. 09:19 Reassessment: Patient appears in no apparent distress at this time. No changes from kc6 previously documented assessment. Patient and/or family updated on plan of care and expected duration. Pain level reassessed. Patient is alert, oriented x 3, equal unlabored respirations, skin warm/dry/pink. Vital Signs: 07:28 BP 172 / 84; Pulse 96; Resp 18 S; Pulse Ox 99% on R/A; kc6 09:19 BP 191 / 97; Pulse 89; Resp 18 S; Pulse Ox 100% on R/A; kc6 ED Course: 07:23 Patient arrived in ED. am2 07:28 Chapis Vargas, RN is Primary Nurse. kc6 07:30 Triage completed. kc6 07:30 Arm band placed on. kc6 07:31 Patient has correct armband on for positive identification. Bed in low position. Call [facility] light in reach. Side rails up X2. Pulse ox on. NIBP on. Door closed. Noise minimized. Lights dimmed. Warm blanket given. Pillow given. Verbal reassurance given. 07:31 Patient maintains SpO2 saturation greater than 95% on room air. kc6 07:53 Harvinder Portillo MD is Attending Physician. bo1 08:46 Femur Right XRAY In Process Unspecified. EDMS 09:29 Navdeep Mclean MD is Referral Physician. bo1 10:10 Diet: Patient given snack. Patient given water. Tolerated well. kc6 10:10 No provider procedures requiring assistance completed. Patient did not have IV access kc6 during this emergency room visit. Administered Medications: 08:03 Drug: Ketorolac IM 60 mg IM once Route: IM; Site: right gluteus; kc6 09:19 Follow up: Response: No adverse reaction; Pain is decreased kc6 Medication: 10:10 VIS not applicable for this client. kc6 Outcome: 09:30 Discharge ordered by . bo1 10:10 Discharged to home via wheelchair, kc6 10:10 Condition: good 10:10 Discharge instructions given to patient, Instructed on discharge instructions, follow up and referral plans. medication usage, Demonstrated understanding of instructions, follow-up care, medications, Prescriptions given X 1, 10:10 Patient left the ED. kc6 Signatures: Dispatcher [employer] EDIL Rebeca Levy am2 Chapis Vargas RN RN kc6 Harvinder Portillo MD MD bo1 Corrections: (The following items were deleted from the chart) 07:30 07:28 BP 172 / 84; kc6 kc6
--- NOTE | 2024-07-09 09:30 | EDPHYS ---
Physician Documentation [facility] Name: Johnnie Maldonado Age: 58 yrs Sex: Male : 1965 Arrival Date: 07/09/2024 Time: 07:22 Bed 18 Private MD: ED Physician Harvinder Portillo HPI: 07/09 07:55 This 58 yrs old Male presents to ER via EMS with complaints of Knee Pain. bo1 07:55 Woke up and was getting coffee this AM, misjudged the curb. Onset: The symptoms/episode bo1 began/occurred suddenly, this morning. Severity of symptoms: At their worst the symptoms were moderate Same pain despite the brace (right knee immobilizer) that was applied 1 week ago. The patient has experienced similar episodes in the past, a few times, This week since Wednesday, pt has stated he does not use the crutches. Historical: - Allergies: 07:30 No Known Allergies; kc6 - PMHx: 07:30 Urinary incontinence; raynaud's; Hypertensive disorder; diabetes mellitus; kc6 - PSHx: 07:30 right arm; kc6 - Immunization history:: Adult Immunizations not up to date. - Infectious Disease History:: Denies. - Social history:: Smoking status: Patient denies any tobacco usage or history of. ROS: 09:26 Constitutional: Negative for fever, chills, and weight loss bo1 09:26 MS/extremity: Positive for pain, swelling, 09:26 Skin: Negative for rash, 09:26 Neuro: Negative for numbness, tingling, 09:26 All other systems are negative, Exam: 09:26 Constitutional: This is a well developed, well nourished patient who is awake, alert, bo1 and in no acute distress. 09:26 Cardiovascular: Rate: normal, Pulses: no pulse deficits are appreciated, 09:26 Respiratory: the patient does not display signs of respiratory distress, Respirations: normal, no acute changes, 09:26 Musculoskeletal/extremity: Extremities: grossly normal except: swelling, tenderness, Location: right knee/femur, 09:26 Skin: injury, is not appreciated, Wrap around leg immobilizer worn, no rash present. Vital Signs: 07:28 BP 172 / 84; Pulse 96; Resp 18 S; Pulse Ox 99% on R/A; kc6 09:19 BP 191 / 97; Pulse 89; Resp 18 S; Pulse Ox 100% on R/A; kc6 MDM: 08:21 Medical Screening Exam initiated bo1 09:23 Differential Diagnosis Knee effusion, injury with leg immobilizer; No fracture. Data bo1 reviewed: vital signs, radiologic studies, plain films. ED course: F/U with orthopedic needed. Pt being allegedly "homeless"; likelihood of f/u less than expected. 07/09 07:54 Order name: Femur Right XRAY; Complete Time: 09:21 bo1 Administered Medications: 08:03 Drug: Ketorolac IM 60 mg IM once Route: IM; Site: right gluteus; kc6 09:19 Follow up: Response: No adverse reaction; Pain is decreased kc6 Disposition Summary: 07/09/24 09:30 Discharge Ordered Notes: Location: Home bo1 Problem: an acute exacerbation bo1 Symptoms: are unchanged bo1 Condition: Stable bo1 Diagnosis - Effusion, right knee bo1 - Fall (on)(from) sidewalk curb bo1 Followup: bo1 - With: Navdeep Mclean MD - When: Tomorrow - Reason: Further diagnostic work-up, Recheck today's complaints, Continuance of care Discharge Instructions: - Discharge Summary Sheet bo1 - Knee Effusion, [id number] bo1 Forms: - Medication Reconciliation Form bo1 - Antibiotic Education bo1 - Prescription Opioid Use bo1 - Patient Portal Instructions bo1 - Leadership Thank You Letter bo1 Prescriptions: - ketorolac 10 mg Oral tablet - take 1 tablet ORAL route 4 times per day for 5 days; 20 tablet; Refills: 0, bo1 Product Selection Permitted Signatures: Dispatcher [employer] EDChapis Hansen RN RN kc6 Harvinder Portillo MD MD bo1 Corrections: (The following items were deleted from the chart) 07:54 07:54 Femur Right+[email or web address] ordered. EDMS EDMS
[2024-07-09 10:15] VITALS: BP 191/97; O2SAT 100
== END 2024-07-09 10:10 | disposition home or self-care (01) ==
LOC: ER 07:22
DX: M25.461 Effusion, right knee (principal); W10.1XXA Fall (on)(from) sidewalk curb, initial encounter
CPT/HCPCS: 96372; 99284

== ENCOUNTER 2024-07-13 09:29 | Emergency (ER) | payer SELFPAY ==
--- OUTSIDE RECORDS SUMMARY | 2024-07-13 09:36 | XMS REPORT | Continuity of Care Document ---
Author Name Unknown Address [address] [facility] [address] [place] [address] Organization [facility] [place] Address [address] [facility] 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 Primary Care Physician + [phone] Doctor Unassigned, [place] Attending Clinician U Cosme Ward DO Attending Clinician [phone] Solo CHONG, Lyubov Hilton Attending Clinician [phone] Rosalie Irizarry RN Attending Clinician [phone] Miguel CHONG, Ricky Hoskins Attending Clinician + [phone] Umang Reynaga MD Attending Clinician [phone] Jerry Fields DO Attending Clinician [phone] Vimal Quiñones MD Attending Clinician [phone] Jeannette Dawn LVN Attending Clinician + [phone] PARVEZ MONROE Attending Clinician Unavailable Sergio Aponte MD Attending Clinician [phone] Bret Banda MD Attending Clinician [phone] Parvez Monroe MD Attending Clinician [phone] Lyubov Banda MD Admitting Clinician [phone] Jerry Fields DO Admitting Clinician PARVEZ MONROE Admitting Clinician Unavailable Parvez Monroe MD Admitting Clinician [phone] Problems Condition Name Condition Details Condition Category Status Onset Date Resolution Date Last Treatment Date Treating Clinician Comments Source Elevated troponin I level Elevated troponin I level Disease Active 08-14 00:00: 00 [facility] Elevated brain natriureti c peptide (BNP) level Elevated brain natriureti c peptide (BNP) level Disease Active 08-14 00:00: 00 [facility] Essential hypertensi on Essential hypertensi on Disease Active 08-14 00:00: 00 [facility] ELIEZER (acute kidney injury) ELIEZER (acute kidney injury) Disease Active 08-14 00:00: 00 [facility] Type 2 diabetes mellitus with other specified complicati on Type 2 diabetes mellitus with other specified complicati on Disease Active 08-14 00:00: 00 [facility] Hypertensi on, unspecifie d type Hypertensi on, unspecifie d type Disease Active 08-13 00:00: 00 [facility] NSTEMI (non-ST elevated myocardial infarction ) NSTEMI (non-ST elevated myocardial infarction ) Disease Active 2022-04 00:00: 00 [facility] Allergies, Adverse Reactions, Alerts Allergy Name Allergy Type Status Severity Reaction(s) Onset Date Inactive Date Treating Clinician Comments Source NO KNOWN ALLERGIE S Drug Class Active [facility] Social History Social Habit Start Date Stop Date Quantity Comments Source [facility] function 2023-08-23 00:00:00 2023-08-23 00:00:00 [facility] Alcohol intake 2023-08-22 00:00:00 2023-08-22 00:00:00 Lifetime non-drinker (finding) [facility] Alcoholic beverage intake 2023-08-22 00:00:00 2023-08-22 00:00:00 Lifetime non-drinker (finding) [facility] Tobacco use and exposure 2023-04-21 00:00:2023-04-21 00:00:00 Smokeless tobacco non-user [facility] Sex assigned at 1965 00:00:00 1965 00:00:00 [facility] Smoking Status Start Date Stop Date Source Never smoked tobacco [facility] Medications Ordered Medication Name Filled Medication Name Start Date Stop Date Current Medication? Ordering Clinician Indication Dosage Frequency Signature (SIG) Comments Components Source acarbose 25 mg tablet 08-23 00:00: 00 Yes [id number] 25mg Take 1 tablet by mouth in the morning and 1 tablet at noon and 1 tablet in the evening. Take with meals. [facility] metFORMIN 500 mg 24 hr tablet 08-23 00:00: 09-23 04:59 :00 No [id number] 500mg Take 1 tablet by mouth in the morning and 1 tablet in the evening. Take with meals. Do all this for 30 days. [facility] amLODIPine 10 mg tablet 08-23 00:00: 09-23 04:59 :00 No [id number] 10mg Take 1 tablet by mouth in the morning for 30 days. [facility] tamsulosin 0.4 mg 24 hr capsule 08-23 00:00: 00 09-23 04:59 :00 No [id number] .4mg Take 1 capsule by mouth in the morning for 30 days. [facility] levoFLOXaci n 500 mg tablet 08-23 00:00: 08-26 04:59 :00 No [id number] 500mg Take 1 tablet by mouth every 24 (twenty-fo ur) hours for 2 days. [facility] cefTRIAXone (ROCEPHIN) 1,000 mg in [...]
D uration of therapy: Once (ED) [facility] D5W IV infusion 1,000 mL 08-22 15:00: 00 08-22 16:53 :22 No 1000mL at 50 mL/hr, IV Infusion, ONCE, 1 dose, On Wed08/23/23 at 1000, Routine [facility] amLODIPine (NORVASC) tablet 5 mg 08-22 14:00: 00 Yes 5mg 5 mg, Oral, DAILY, First dose on Wed08/23/23 at 0900, Until Discontinu ed, Routine [facility] D5W 0.45% NaCl (1/2NS) IV infusion 1,000 mL 08-22 02:29: 00 08-23 17:53 :57 No 1000mL at 75 mL/hr, 1,000 mL, IV Infusion, CONTINUOUS , Starting on Wed08/22/23 at 2130, Until Wed08/24/23 at 1253, Routine [facility] D5W IV infusion 1,000 mL 08-21 21:30: 00 08-22 02:27 :22 No 1000mL at 100 mL/hr, IV Infusion, CONTINUOUS , Starting on Wed08/22/23 at 1630, Until Wed08/22/23 at 2127, Routine [facility] Sliding Scale Insulin - Lispro (HumaLOG) 08-21 21:00: 00 Yes Subcutaneo us, Q4H, First dose on Wed08/22/23 at 1600, Until Discontinu ed, Routine [facility] glucagon (GLUCAGEN DIAGNOSTIC KIT) injection 1 mg 08-21 20:17: 12 Yes 1mg 1 mg, Intramuscu lar, PRN, Starting on Wed08/22/23 at 1517, Until Discontinu ed, HAO, Blood Glucose < or = 70 mg/dL and patient is NPO, unable to swallow or has mental changes. [facility] dextrose 50 % in water (D50W) injection 25 mL 08-21 20:17: 12 Yes 25mL 25 mL, Slow IV Push, PRN, Starting on Wed08/22/23 at 1517, Until Discontinu ed, HAO, Blood Glucose < or = 70 mg/dL and patient is NPO, unable to swallow or has mental status changes. [facility] D5W IV infusion 1,000 mL 08-21 17:45: 00 08-21 20:16 :11 No 1000mL at 100 mL/hr, IV Infusion, CONTINUOUS , Starting on Wed08/22/23 at 1245, Until Wed08/22/23 at 1516, Routine [facility] tamsulosin (FLOMAX) capsule 0.4 mg 08-21 14:00: 00 Yes .4mg 0.4 mg, Oral, DAILY, First dose on Wed08/22/23 at 0900, Until Discontinu ed, Routine [facility] docusate (COLACE) capsule 100 mg 08-21 13:00: 00 Yes 100mg 100 mg, Oral, BID, First dose on Wed08/22/23 at 0800, Until Discontinu ed, Routine [facility] heparin (porcine) injection 5,000 Units 08-21 13:00: 00 Yes 5000U 5,000 Units, Subcutaneo us, Q12H, First dose on Wed08/22/23 at 0800, Until Discontinu ed, Routine [facility] D5W 0.45% NaCl (1/2NS) IV infusion 1,000 mL 08-21 06:15: 00 08-21 16:44 :38 No 1000mL at 100 mL/hr, 1,000 mL, IV Infusion, CONTINUOUS , Starting on Wed08/22/23 at 0115, Until Wed08/22/23 at 1144, Routine [facility] D5W 0.45% NaCl (1/2NS) Bolus infusion 1,000 mL 08-21 06:00: 00 08-21 06:21 :00 No 1000mL at 999 mL/hr, 1,000 mL, IV Infusion, ONCE, 1 dose, On Wed08/22/23 at 0100, Routine [facility] NaCl 0.9% (NS) bolus infusion 1,000 mL 08-21 04:15: 00 08-21 05:05 :00 No 1000mL at 999 mL/hr, 1,000 mL, IV Infusion, ONCE, 1 dose, On 08/21/23 at 2315, STAT [facility] bisacodyL (DULCOLAX) tablet 10 mg 08-21 04:02: 51 Yes 10mg 10 mg, Oral, QDAILYPRN, Starting on 08/21/23 at 2302, Until Discontinu ed, Routine, Constipati on [facility] ondansetron (ZOFRAN (PF)) injection 4 mg 08-21 04:02: 17 Yes 4mg 4 mg, Slow IV Push, Q6HPRN, Starting on 08/21/23 at 2302, Until Discontinu ed, Routine, Nausea and Vomiting (N/V) [facility] FENTanyl PF (SUBLIMAZE (PF)) injection 12.5 mcg 08-21 04:02: 09 08-22 04:01 :09 No 12.5ug 12.5 mcg, Slow IV Push, Q6HPRN, Starting on 08/21/23 at 2302, Until 08/22/23 at 2301, Routine, Pain (scale 7-10), Pain (scale 4-6) [facility] acetaminoph en (TYLENOL) tablet 650 mg 08-21 04:01: 56 Yes 650mg 650 mg, Oral, Q6HPRN, Starting on 08/21/23 at 2301, Until Discontinu ed, Routine, Pain (scale 1-3) [facility] magnesium citrate solution 296 mL 08-21 01:45: 00 08-21 01:25 :00 No 296mL 296 mL, Oral, ONCE, 1 dose, On 08/21/23 at 2045, Routine [facility] amLODIPine 5 mg tablet 08-16 00:00: 00 08-23 00:00 :00 No [id number] 5mg Take 1 tablet by mouth in the morning for 30 days. [facility] lactulose (CEPHULAC) solution 45 mL 08-15 15:45: 00 08-15 15:21 :00 No 45mL 45 mL, Oral, ONCE, 1 dose, On Wed08/16/23 at 1045, Routine [facility] amLODIPine (NORVASC) tablet 5 mg 08-15 14:00: 00 Yes 5mg 5 mg, Oral, DAILY, First dose on Wed08/16/23 at 0900, Until Discontinu ed, Routine [facility] sennosides (SENOKOT) tablet 8.6 mg 08-15 14:00: 00 Yes 8.6mg 8.6 mg, Oral, DAILY, First dose on Wed08/16/23 at 0900, Until Discontinu ed, Routine [facility] losartan (COZAAR) tablet 25 mg 08-15 14:00: 00 Yes 25mg 25 mg, Oral, DAILY, First dose (after last modificati on) on Wed08/16/23 at 0900, Until Discontinu ed, Routine [facility] docusate (COLACE) capsule 100 mg 08-15 13:00: 00 Yes 100mg 100 mg, Oral, BID, First dose on Wed08/16/23 at 0800, Until Discontinu ed, Routine [facility] lactulose (CEPHULAC) solution 30 mL 08-15 10:00: 00 08-15 09:33 :00 No 30mL 30 mL, Oral, ONCE, 1 dose, On Wed08/16/23 at 0500, Routine [facility] metFORMIN 500 mg 24 hr tablet 08-15 00:00: 00 08-23 00:00 :00 No [id number] 500mg Take 1 tablet by mouth in the morning and 1 tablet in the evening. Take with meals. Do all this for 30 days. [facility] acarbose 25 mg tablet 08-15 00:00: 00 08-23 00:00 :00 No [id number] 25mg Take 1 tablet by mouth in the morning and 1 tablet at noon and 1 tablet in the evening. Take with meals. Do all this for 30 days. [facility] pioglitazon e 15 mg tablet 08-15 00:00: 00 08-23 00:00 :00 No [id number] 15mg Take 1 tablet by mouth in the morning for 30 days. [facility] tamsulosin 0.4 mg 24 hr capsule 08-15 00:00: 00 08-23 00:00 :00 No [id number] .4mg Take 1 capsule by mouth in the morning for 30 days. [facility] losartan 25 mg tablet 08-15 00:00: 00 08-23 00:00 :00 No [id number] 25mg Take 1 tablet by mouth in the morning for 30 days. [facility] glipiZIDE (GLUCOTROL) tablet 5 mg 08-14 21:30: 00 Yes 5mg 5 mg, Oral, BIDAC, First dose on 08/15/23 at 1630, Until Discontinu ed, Routine [facility] KCL (KLOR-CON M20) tablet 40 mEq 08-14 21:30: 00 08-14 21:21 :00 No 40meq 40 mEq, Oral, ONCE, 1 dose, On 08/15/23 at 1630, Routine [facility] pioglitazon e (ACTOS) tablet 7.5 mg 08-14 17:00: 00 08-15 12:47 :51 No 7.5mg 7.5 mg, Oral, DAILY, First dose on 08/15/23 at 1200, Until Discontinu ed, Routine [facility] tamsulosin (FLOMAX) capsule 0.4 mg 08-14 15:49: 00 Yes .4mg 0.4 mg, Oral, DAILY, First dose on 08/15/23 at 1100, Until Discontinu ed, Routine [facility] amLODIPine (NORVASC) tablet 10 mg 08-14 14:00: 00 08-14 15:51 :30 No 10mg 10 mg, Oral, DAILY, First dose on 08/15/23 at 0900, Until Discontinu ed, Routine [facility] heparin (porcine) injection 5,000 Units 08-14 03:00: 00 08-14 06:07 :44 No 5000U 5,000 Units, Subcutaneo us, Q8H, First dose on 08/14/23 at 2200, Until Discontinu ed, Routine [facility] Sliding Scale Insulin - Lispro (HumaLOG) 08-14 02:00: 00 08-14 18:06 :14 No Subcutaneo us, TID MEALS+HS, First dose on 08/14/23 at 2100, Until Discontinu ed, Routine [facility] glucagon (GLUCAGEN DIAGNOSTIC KIT) injection 1 mg 08-14 00:36: 37 Yes 1mg 1 mg, Intramuscu lar, PRN, Starting on 08/14/23 at 1936, Until Discontinu ed, HAO, Blood Glucose < or = 70 mg/dL and patient is NPO, unable to swallow or has mental changes. [facility] dextrose 50 % in water (D50W) injection 25 mL 08-14 00:36: 37 Yes 25mL 25 mL, Slow IV Push, PRN, Starting on 08/14/23 at 1936, Until Discontinu ed, HAO, Blood Glucose < or = 70 mg/dL and patient is NPO, unable to swallow or has mental status changes. [facility] acetaminoph en (TYLENOL) tablet 650 mg 08-14 00:36: 24 Yes 650mg 650 mg, Oral, Q6HPRN, Starting on 08/14/23 at 1936, Until Discontinu ed, Routine, Pain (scale 1-3) [facility] aspirin chewable tablet 324 mg 08-13 23:15: 00 08-13 22:56 :00 No [id number] 324mg 324 mg, Oral, ONCE, 1 dose, On 08/14/23 at 1815, [facility] lidocaine 2% viscous (LIDOCAINE VISCOUS) 2 % solution 15 mL 08-13 23:00: 00 08-13 22:10 :00 No [id number] 15mL 15 mL, Oral, ONCE, 1 dose, On 08/14/23 at 1800, Routine [facility] KCL (KLOR-CON M20) tablet 20 mEq 08-13 22:30: 00 08-13 22:59 :00 No [id number] 20meq 20 mEq, Oral, ONCE, 1 dose, On 08/14/23 at 1730, [facility] metoprolol tartrate (LOPRESSOR) tablet 50 mg 08-13 22:00: 00 08-13 22:58 :00 No [id number] 50mg 50 mg, Oral, ONCE, 1 dose, On 08/14/23 at 1700, [facility] iopamidol (ISOVUE 370-500 mL) injection 80 mL 08-13 21:30: 00 08-13 21:45 :00 No [id number] 80mL 80 mL, Intravenou s, ONCE, 1 dose, On 08/14/23 at 1645, Routine [facility] acetaminoph en (TYLENOL) tablet 650 mg 08-13 21:15: 00 08-13 22:57 :00 No [id number] 650mg 650 mg, Oral, ONCE, 1 dose, On 08/14/23 at 1615, [facility] amLODIPine (NORVASC) tablet 5 mg 08-13 21:15: 00 08-13 22:58 :00 No [id number] 5mg 5 mg, Oral, ONCE, 1 dose, On 08/14/23 at 1615, [facility] NaCl 0.9% (NS) bolus infusion 1,000 mL 08-13 21:15: 00 08-13 21:50 :00 No [id number] 1000mL at 999 mL/hr, 1,000 mL, IV Infusion, ONCE, 1 dose, On 08/14/23 at 1615, HAO [facility] insulin NPH (HUMULIN N) injection 9 Units 2022-04 14:00: 00 Yes 9U 9 Units, Subcutaneo us, QAM WITH BREAKFAST, First dose (after last modificati on) on 04/24/23 at 0800, Until Discontinu ed, Routine [facility] losartan 25 mg tablet 2022-04 00:00: 00 08-15 00:00 :00 No [id number] 25mg Take 1 tablet by mouth in the morning. [facility] tamsulosin (FLOMAX) 0.4 mg 24 hr capsule 2022-04 00:00: 00 08-15 00:00 :00 No [id number] .4mg Take 1 capsule by mouth in the morning. [facility] metFORMIN 500 mg tablet 2022-04 00:00: 00 05-23 05:59 :00 No [id number] Take 1 tablet by mouth 2 (two) times daily with meals for 7 days, THEN 2 tablets 2 (two) times daily with meals for 21 days. [facility] insulin lispro (human) (HumaLOG U-100) injection 3 Units 2022-04 23:00: 00 Yes 3U 3 Units, Subcutaneo us, TID MEALS, First dose (after last modificati on) on Wed04/23/23 at 1700, Until Discontinu ed, Routine [facility] insulin NPH (HUMULIN N) injection 5 Units 2022-04 23:00: 00 Yes 5U 5 Units, Subcutaneo us, QPM, First dose (after last modificati on) on Wed04/23/23 at 1700, Until Discontinu ed, Routine [facility] losartan (COZAAR) tablet 25 mg 2022-04 15:00: 00 Yes 25mg 25 mg, Oral, DAILY, First dose on Wed04/23/23 at 0900, Until Discontinu ed, Routine [facility] Potassium Bicarb-Citr ic Acid (EFFER-K) effervescen t tablet 40 mEq 2022-04 13:00: 00 04-23 13:33 :00 No 40meq 40 mEq, Oral, ONCE, 1 dose, On Wed04/23/23 at 0700, Routine [facility] ramelteon (ROZEREM) tablet 8 mg 2022-04 10:45: 00 04-23 10:51 :00 No 8mg 8 mg, Oral, ONCE NOW, 1 dose, On Wed04/23/23 at 0500, Routine [facility] Blood-Gluco se Meter (ACCU-CHEK GUIDE GLUCOSE METER) [facility] 2022-04 00:00: 00 Yes [id number] Use as directed [facility] lancets 33 gauge [facility] 2022-04 00:00: 00 Yes [id number] Use as directed [facility] blood sugar diagnostic (ACCU-CHEK GUIDE TEST STRIPS) strip 2022-04 00:00: 00 Yes [id number] Use as directed [facility] pioglitazon e 15 mg tablet 2022-04 00:00: 00 08-15 00:00 :00 No [id number] 7.5mg Take 0.5 tablets by mouth in the morning. [facility] acarbose 25 mg tablet 2022-04 00:00: 00 08-15 00:00 :00 No [id number] 25mg Take 1 tablet by mouth in the morning and 1 tablet at noon and 1 tablet in the evening. Take with meals. [facility] atorvastati n 80 mg tablet 2022-04 00:00: 00 05-24 05:59 :00 No [id number] 80mg Take 1 tablet by mouth at bedtime for 30 days. [facility] glipiZIDE 5 mg tablet 2022-04 00:00: 00 05-24 05:59 :00 No [id number] 5mg Take 1 tablet by mouth 2 (two) times daily before breakfast and dinner for 30 days. [facility] enoxaparin (LOVENOX) injection 40 mg 2022-04 15:00: 00 Yes 40mg 40 mg, Subcutaneo us, DAILY, First dose on Wed04/22/23 at 0900, Until Discontinu ed, Routine [facility] insulin NPH (HUMULIN N) injection 8 Units 2022-04 14:00: 00 04-23 19:10 :37 No 8U 8 Units, Subcutaneo us, QAM WITH BREAKFAST, First dose on Wed04/22/23 at 0800, Until Discontinu ed, Routine [facility] insulin NPH (HUMULIN N) injection 4 Units 2022-04 23:00: 00 04-23 19:10 :37 No 4U 4 Units, Subcutaneo us, QPM, First dose on Wed04/21/23 at 1700, Until Discontinu ed, Routine [facility] insulin lispro (human) (HumaLOG U-100) injection 2 Units 2022-04 23:00: 00 04-23 19:10 :37 No 2U 2 Units, Subcutaneo us, TID MEALS, First dose (after last modificati on) on Wed04/21/23 at 1700, Until Discontinu ed, Routine [facility] NaCl 0.9% (NS) IV infusion 250 mL 2022-04 21:15: 00 04-22 20:03 :10 No [id number] 250mL at 20 mL/hr, IV Infusion, CONTINUOUS , Starting on Wed04/21/23 at 1515, Until Wed04/22/23 at 1403, Routine
To keep vein open
[facility] perflutren lipid microsphere s (DEFINITY) injection 2 mL 2022-04 21:00: 00 04-21 20:15 :00 No [id number] 2mL 2 mL, IV Push, ONCE, 1 dose, On Wed04/21/23 at 1500, Routine [facility] atropine injection 1 mg 2022-04 21:00: 00 04-21 20:44 :00 No [id number] 1mg 1 mg, Slow IV Push, ONCE, 1 dose, On Wed04/21/23 at 1500, Routine [facility] DOBUTamine (DOBUTREX) 250 mg/250 mL RTU infusion 2022-04 20:13: 51 04-22 20:03 :10 No [id number] 5ug/kg/ min 5 mcg/kg/min ?59 kg (17.7 [...] the Dobutamine infusion. (see Adjunctive Therapy)<b r> [facility] perflutren protein-A microsphr (OPTISON) injection 3 mL 2022-04 17:15: 00 04-21 15:22 :00 No [id number] 3mL 3 mL, IV Push, ONCE, 1 dose, On Wed04/21/23 at 1115, Routine [facility] potassium chloride in water 10 mEq/100 mL RTU 10 mEq 2022-04 17:00: 00 04-21 20:59 :00 No 10meq 10 mEq, IV Piggyback, Q1H, 4 doses, First dose (after last reorder) on Wed04/21/23 at 1100, Last dose on Wed04/21/23 at 1400, Administer over 60 Minutes, 100 mL [facility] tamsulosin (FLOMAX) capsule 0.4 mg 2022-04 15:00: 00 Yes .4mg 0.4 mg, Oral, DAILY, First dose on Wed04/21/23 at 0900, Until Discontinu ed, Routine [facility] aspirin chewable tablet 81 mg 2022-04 15:00: 00 04-22 16:28 :38 No 81mg 81 mg, Oral, DAILY, First dose on Wed04/21/23 at 0900, Until Discontinu ed, Routine [facility] aspirin tablet 325 mg 2022-04 15:00: 00 04-21 06:21 :21 No 325mg 325 mg, Oral, DAILY, First dose on Wed04/21/23 at 0900, Until Discontinu ed, Routine [facility] Sliding Scale Insulin - Lispro (HumaLOG) 2022-04 14:00: 00 Yes Subcutaneo us, TID MEALS+HS, First dose on Wed04/21/23 at 0800, Until Discontinu ed, Routine [facility] magnesium sulfate in water 2 gram/50 mL (4 %) infusion 2 g 2022-04 12:30: 00 04-21 15:11 :00 No 2g 2 g, IV Piggyback, Administer over 60 Minutes, ONCE, 1 dose, On Wed04/21/23 at 0630, Routine [facility] Potassium Bicarb-Citr ic Acid (EFFER-K) effervescen t tablet 40 mEq 2022-04 12:30: 00 04-21 12:36 :00 No 40meq 40 mEq, Oral, ONCE, 1 dose, On Wed04/21/23 at 0630, Routine [facility] insulin glargine (LANTUS U-100) injection 9 Units 2022-04 07:45: 00 04-21 21:08 :08 No .15U/kg /d 9 Units (rounded from 8.745 Units = 0.15 Units/kg/d ay ?58.3 kg), Subcutaneo us, QHS, First dose (after last modificati on) on Wed04/21/23 at 0145, Until Discontinu ed, Routine [facility] atorvastati n (LIPITOR) tablet 80 mg 2022-04 06:30: 00 Yes 80mg 80 mg, Oral, QHS, First dose on Wed04/21/23 at 0030, Until Discontinu ed, Routine [facility] dextrose 50 % in water (D50W) injection 25 mL 2022-04 06:24: 50 Yes 25mL 25 mL, Slow IV Push, PRN, Starting on Wed04/21/23 at 0024, Until Discontinu ed, HAO, Blood Glucose < or = 70 mg/dL and patient is NPO, unable to swallow or has mental status changes. [facility] acetaminoph en (TYLENOL) tablet 650 mg 2022-04 05:53: 21 Yes 650mg 650 mg, Oral, Q6HPRN, Starting on Wed04/20/23 at 2353, Until Discontinu ed, Routine, Pain (scale 1-3) [facility] NaCl 0.9% (NS) bolus infusion 1,000 mL 2022-04 04:00: 00 04-21 03:45 :00 No 1000mL at 999 mL/hr, 1,000 mL, IV Infusion, ONCE, 1 dose, On Wed04/20/23 at 2200, STAT [facility] clopidogreL (PLAVIX) 300 mg tablet 300 mg 2022-04 03:30: 00 04-21 02:50 :00 No 300mg 300 mg, Oral, ONCE, 1 dose, On Wed04/20/23 at 2130, HAO [facility] HEPARIN SODIUM (PORCINE) 1,000 UNIT/ML BOLUS ACS ORDER SET 2022-04 02:45: 00 04-21 02:53 :00 No 60U/kg 3,540 Units (60 Units/kg ?59 kg), IV Push, ONCE, 1 dose, On Wed04/20/23 at 204, HAO [facility] heparin 25,000 Units/250 mL (Premixed [...] Rang e, Dosing and Testing: &nbs p;FOR [facility] ONLY &nbs p; - aPTT < 35: [...] INITIAL BOLUS OR INITIAL INFUSION RATE.
[facility] Vital Signs Vital Name Observation Time Observation Value Comments S ource Systolic blood pressure 2023-08-24 13:02:00 150 mm[Hg] [facility] Diastolic blood pressure 2023-08-24 13:02:00 88 mm[Hg] [facility] Heart rate 2023-08-24 13:02:00 79 /min [facility] Body temperature 2023-08-24 13:02:00 36.44 Deya [facility] Respiratory rate 2023-08-24 13:02:00 14 /min [facility] Oxygen saturation in Arterial blood by Pulse oximetry 2023-08-24 13:02:00 98 /min [facility] Body weight 2023-08-24 08:43:00 58.469 kg [facility] BMI 2023-08-24 08:43:00 22.83 kg/m2 [facility] Body height 2023-08-22 04:52:00 160 cm [facility] Systolic blood pressure 2023-08-16 16:53:00 154 mm[Hg] [facility] Diastolic blood pressure 2023-08-16 16:53:00 94 mm[Hg] [facility] Heart rate 2023-08-16 16:53:00 82 /min [facility] Body temperature 2023-08-16 16:53:00 36.61 Deya [facility] Respiratory rate 2023-08-16 16:53:00 16 /min [facility] Oxygen saturation in Arterial blood by Pulse oximetry 2023-08-16 16:53:00 99 /min [facility] Body weight 2023-08-16 09:56:00 56.473 kg [facility] BMI 2023-08-16 09:56:00 22.05 kg/m2 [facility] Body height 2023-08-15 04:07:00 160 cm [facility] Systolic blood pressure 2023-04-23 18:11:00 141 mm[Hg] [facility] Diastolic blood pressure 2023-04-23 18:11:00 80 mm[Hg] [facility] [facility] Heart rate 2023-04-23 18:11:00 101 /min [facility] Body temperature 2023-04-23 18:11:00 35.89 Deya [facility] Respiratory rate 2023-04-23 18:11:00 18 /min [facility] Oxygen saturation in Arterial blood by Pulse oximetry 2023-04-23 18:11:00 98 /min [facility] Body weight 2023-04-22 09:57:00 57.561 kg [facility] BMI 2023-04-22 09:57:00 22.48 kg/m2 [facility] Body height 2023-04-21 20:00:00 160 cm [facility] Procedures Procedure Date / Time Performed Performing Clinician Source PATIENT AGREEMENTS AND CONTRACTS 2023-11-12 20:14:31 Doctor Unassigned, [place] [facility] POCT GLUCOSE (AUTOMATED) 2023-08-24 16:13:00 Jami Banda [facility] POCT GLUCOSE (AUTOMATED) 2023-08-24 12:34:00 Jami Banda [facility] BASIC METABOLIC PANEL (NA, K, CL, CO2, GLUCOSE, BUN, CREATININE, CA) 2023-08-24 08:42:00 Jerry Fields [facility] CBC WITH DIFF 2023-08-24 08:42:00 Jerry Fields [facility] POCT GLUCOSE (AUTOMATED) 2023-08-24 05:46:00 Jami Banda [facility] BASIC METABOLIC PANEL (NA, K, CL, CO2, GLUCOSE, BUN, CREATININE, CA) 2023-08-24 01:37:00 Jerry Fields [facility] POCT GLUCOSE (AUTOMATED) 2023-08-24 01:27:00 Jami Banda [facility] POCT GLUCOSE (AUTOMATED) 2023-08-23 21:29:00 Jami Banda [facility] BASIC METABOLIC PANEL (NA, K, CL, CO2, GLUCOSE, BUN, CREATININE, CA) 2023-08-23 17:41:00 Jerry Fields [facility] POCT GLUCOSE (AUTOMATED) 2023-08-23 16:42:00 aJmi Banda [facility] POCT GLUCOSE (AUTOMATED) 2023-08-23 12:36:00 Jami Banda [facility] POCT GLUCOSE (AUTOMATED) 2023-08-23 09:09:00 Jami Banda. [facility] MAGNESIUM 2023-08-23 08:23:00 Jerry Fields [facility] BASIC METABOLIC PANEL (NA, K, CL, CO2, GLUCOSE, BUN, CREATININE, CA) 2023-08-23 08:23:00 Jerry Fields [facility] CBC WITH DIFF 2023-08-23 08:23:00 Donnie, Jerry [facility] POCT GLUCOSE (AUTOMATED) 2023-08-23 04:52:00 Jami Banda [facility] POCT GLUCOSE (AUTOMATED) 2023-08-23 00:42:00 Jami Banda [facility] BASIC METABOLIC PANEL (NA, K, CL, CO2, GLUCOSE, BUN, CREATININE, CA) 2023-08-23 00:38:00 Jerry Fields [facility] POCT GLUCOSE (AUTOMATED) 2023-08-22 21:18:00 Jami Banda [facility] URIC ACID 2023-08-22 19:21:00 Alyssa Cani [facility] PROTEIN CREAT RATIO URINE RANDOM 2023-08-22 19:21:00 Alyssa Cain [facility] CORTISOL AM 2023-08-22 19:20:00 Alyssa Cain [facility] BASIC METABOLIC PANEL (NA, K, CL, CO2, GLUCOSE, BUN, CREATININE, CA) 2023-08-22 13:21:00 Lyubov Banda [facility] LACTIC ACID WHOLE BLOOD 2023-08-22 09:16:00 Loreta Banda mmad [facility] MAGNESIUM 2023-08-22 08:30:00 Lyubov Banda [facility] TROPONIN I 2023-08-22 08:30:00 Lyubov Banda [facility] CBC WITH DIFF 2023-08-22 08:30:00 [facility]MINAL PRO-BNP 2023-08-22 08:30:00 Lyubov Banda [facility] PHOSPHORUS 2023-08-22 04:01:00 Lyubov Banda [facility] BASIC METABOLIC PANEL (NA, K, CL, CO2, GLUCOSE, BUN, CREATININE, CA) 2023-08-22 04:01:00 Cosme Cardona [facility] URINALYSIS 2023-08-22 01:52:00 Cardona, [facility] CT ABDOMEN PELVIS WO CONTRAST 2023-08-22 01:26:17 Singer [facility] CREATINE KINASE 2023-08-22 01:24:00 Lyubov Banda [facility] LIPASE 2023-08-22 01:24:00 Singer [facility] COMP. METABOLIC PANEL ([id number]) 2023-08-22 01:24:00 Singer [facility] CBC WITH DIFF 2023-08-22 01:24:00 Singer [facility] POCT GLUCOSE (AUTOMATED) 2023-08-16 21:51:00 [...] [facility] TROPONIN I 2023-08-15 10:41:00 [facility] BASIC METABOLIC PANEL (NA, K, CL, CO2, GLUCOSE, BUN, CREATININE, CA) 2023-08-15 10:41:00 Shanice [facility] CBC WITH DIFF 2023-08-15 10:41:00 Shanice [facility] PROSTATIC SPECIFIC ANTIGEN 2023-08-15 05:32:00 Shanice [facility] TROPONIN I 2023-08-15 05:32:00 Shanice [facility] POCT GLUCOSE (AUTOMATED) 2023-08-15 04:03:00 Yue Fields [facility] URINALYSIS 2023 22:15:00 Rosmery [facility] XR CHEST 1 VW 2023 21:46:[address] [facility] CT ABDOMEN PELVIS W CONTRAST 2023 21:34:[address] [facility] CT TRAUMA HEAD WO CONTRAST 2023 21:33:20 Rosmery [facility] HB ECG ROUTINE & RHYTHM STRIP 2023 21:10:12 Rosmery [facility] PHOSPHORUS 2023 20:47:00 Rosmery [facility] CREATINE KINASE 2023 20:47:00 [facility] 2023 20:47:00 Rosmery [facility] MAGNESIUM 2023 20:47:00 Rosmery [facility] BETA HYDROXY-BUTYRATE 2023 20:47:00 Farida Reynaga [facility] TROPONIN I 2023 20:47:00 Rosmery [facility] COMP. METABOLIC PANEL (05760) 2023 20:47:00 Rosmery [facility] CBC WITH DIFF 2023 20:47:00 Rosmery [facility] GLYCOSYLATED HEMOGLOBIN (A1C) 2023 20:47:00 Jerry Fields [facility] N-TERMINAL PRO-BNP 2023 20:47:00 Michael Reynaga [facility] ACUTE CARE VENOUS BLOOD GAS 2023 20:46:00 Rosmery [facility] LACTIC ACID WHOLE BLOOD 2023 20:46:00 Kian Reynaga [facility] POCT GLUCOSE(AGE >30DAYS) 2023 20:26:00 Rosmery [facility] POCT GLUCOSE (AUTOMATED) 2023 20:23:00 Dalmedo, [facility] POCT GLUCOSE (AUTOMATED) 2023-04-23 18:09:00 Brien Banda [facility] POCT GLUCOSE (AUTOMATED) 2023-04-23 15:32:00 Brien Banda [facility] MAGNESIUM 2023-04-23 09:09:00 Chet Echavarria [facility] BASIC METABOLIC PANEL (NA, K, CL, CO2, GLUCOSE, BUN, CREATININE, CA) 2023-04-23 09:09:00 Chet Echavarria [facility] POCT GLUCOSE (AUTOMATED) 2023-04-23 02:56[facility]00 [facility] 2023-04-23 00:32:00 Solo [facility] POCT GLUCOSE (AUTOMATED) 2023-04-22 22:43:00 Solo [facility] POCT GLUCOSE (AUTOMATED) 2023-04-22 20:36:00 Solo [facility] POCT GLUCOSE (AUTOMATED) 2023-04-22 17:44:00 Solo [facility] POCT GLUCOSE (AUTOMATED) 2023-04-22 13:41:00 Solo [facility] MAGNESIUM 2023-04-22 10:37:00 Daja Aaliyah [facility] BASIC METABOLIC PANEL (NA, K, CL, CO2, GLUCOSE, BUN, CREATININE, CA) 2023-04-22 10:37:00 Aaliyah Farnsworth [facility] CBC WITH DIFF 2023-04-22 10:37:00 Daja Aaliyah [facility] POCT GLUCOSE (AUTOMATED) 2023-04-22 03:32:00 Solo [facility] POCT GLUCOSE (AUTOMATED) 2023-04-22 01:34:00 Solo [facility] COMPLETE ECHOCARDIOGRAM DOBUTAMINE STRESS TEST W CONTRAST 2023-04-21 21:15:00 [facility] 2023-04-21 17:36:00 Banda, [facility] ACTIVATED PARTIAL THRMPLAS JERMAINE 2023-04-21 16:47:00 Sergio Aponte [facility] TRANSTHORACIC ECHO (TTE) COMPLETE W/ CONTRAST 2023-04-21 15:26:00 Kylie Fuchs Noel [facility] TROPONIN I 2023-04-21 12:39:00 Víctor Fuchs amctyue [facility] POCT GLUCOSE (AUTOMATED) 2023-04-21 09:39:00 Brien Banda [facility] MAGNESIUM 2023-04-21 09:10:00 Víctor Fuchs cainsvilleyue [facility] BASIC METABOLIC PANEL (NA, K, CL, CO2, GLUCOSE, BUN, CREATININE, CA) 2023-04-21 09:10:00 Tavia Fuchsmad [facility] LIPID PANEL (60842)(TOTAL CHOLESTEROL, TRIGLYCERIDES, HDL) 2023-04-21 09:10:00 Tavia Fuchsmad [facility] CBC WITH DIFF 2023-04-21 09:10:00 Víctor Fuchs cainsvilleyue [facility] ACTIVATED PARTIAL THRMPLAS JERMAINE 2023-04-21 09:10:00 Sergio Aponte [facility] XR CHEST 1 VW 2023-04-21 06:53:47 Víctor Fuchs amctyue [facility] TROPONIN I 2023-04-21 06:32:00 Víctor Fuchs cainsvilleyue [facility] IRON PANEL 2023-04-21 06:32:00 Víctor Fuchs cainsvilleyue [facility] N-TERMINAL PRO-BNP 2023-04-21 06:32:00 Kylie Fuchs [facility] CRITICAL CARE 2023-04-21 02:54:15 Sergio Aponte [facility] PROTHROMBIN TIME / INR 2023-04-21 02:44:00 Enrique Aponte [facility] ACTIVATED PARTIAL THRMPLAS JERMAINE 2023-04-21 02:44:00 Sergio Aponte [facility] URINALYSIS 2023-04-21 02:33:00 [facility] PROTEIN CREAT RATIO URINE RANDOM 2023-04-21 02:33:00 Kylie Fuchs [facility] URINE DRUG (IMMUNOASSAY) - COMPREHENSIVE DRUG SCREEN W/O REFLEX 2023-04-21 02:33:00 Sergio Aponte [facility] PHOSPHORUS 2023-04-21 01:55:00 Víctor Fuchs Noel [facility] FERRITIN SERUM 2023-04-21 01:55:00 Víctor Fuchs [facility] TROPONIN I 2023-04-21 01:55:00 [facility] THYROID STIMULATING HORMONE 2023-04-21 01:55:00 Kylie Fuchs Noel [facility] COMP. METABOLIC PANEL ([id number]) 2023-04-21 01:55:00 Sergio Aponte [facility] ETHANOL 2023-04-21 01:55:00 Sergio Aponte [facility] CBC WITH DIFF 2023-04-21 01:55:00 Sergio Aponte [facility] GLYCOSYLATED HEMOGLOBIN (A1C) 2023-04-21 01:55:00 Kylie Fuchs Noel [facility] POCT GLUCOSE (AUTOMATED) 2023-04-21 01:54:00 Yue Aponte [facility] EKG-12 LEAD 2023-04-21 01:51:41 Brte Banda [facility] Encounters Start Date/Time End Date/Time Encounter Type Admission Type Attending Clinicians Care Facility Care Department Encounter ID Source 2023-11-12 00:00:00 2024-06-10 07:16:20 Orders Only Doctor Unassigned, [place] Doctor Unassigned, [place] [facility] ([facility] [id number] 350.1.13.10 4.2.7.2.686 [id number] [facility] 2023-08-21 19:47:00 2023-08-24 16:32:00 Hospital Encounter Cosme Cardona Mohammad [facility] 1.2840.114 350.1.13.10 4.2.7.2.686 [id number] [facility] 2023-08-20 00:00:00 2023-08-20 00:00:00 Patient Outreach Rosalie Irizarry LYNN BAEZ 1.2840.114 350.1.13.10 4.2.7.2.686 [id number] [facility] 2023-08-17 00:00:00 2023-08-17 00:00:00 Telephone Ricky Rivera [facility] 1.0.114 350.1.13.10 4.2.7.2.686 [id number] [facility] 2023 14:42:00 2023-08-16 18:40:00 Hospital Encounter Umang Reynaga [place], Jelani [facility] 1.0.114 350.1.13.10 4.2.7.2.686 [id number] [facility] 2023-04-27 00:00:00 2023-04-27 00:00:00 Transition of Care López Jeannette LYNN BAEZ 1.840.114 350.1.13.10 4.2.7.2.686 [id number] [facility] 2023-04-20 19:48:00 2023-04-23 19:54:00 Inpatient PARVEZ NUNEZ [facility] [id number] [facility] 2023-04-20 19:48:00 2023-04-23 19:54:00 Hospital Encounter Sergio Aponte Rizwan Dacso, Matthew M [facility] 1.840.114 350.1.13.10 4.2.7.2.686 [id number] [facility] Results Test Description Test Time Test Comments Results Resul t Comments Source PATIENT AGREEMENTS AND CONTRACTS 2023-11-12 20:14:31 [facility]dered by an unspecified provider. [facility] 12:35:27* Test Item Value Reference Range Interpretation Comme nts POCT GLU (test code = 7735305247) 204 mg/dL 70-110 H Lab Interpretation (test cod e = 64048-6) Abnormal [facility] Metabolic Panel (NA, K, CL, CO2, GLUCOSE, BUN, CREATININE, CA)2023-08-24 09:45:39* Test Item Value Reference Range Interpretation Comme nts NA (test code = 3282726428) 133 mmol/L 135-145 L K (test code = 8478971123) 3.7 mmol/L 3.5-5.0 CL (test code = 0905249669) 98 mmol/L 98-108 CO2 TOTAL (test code = 3665322885) 27 mmol/L 23-31 AGAP (test code = 1814573315) 8 2-16 BUN (test code = 2267894603) 13 mg/dL 7-23 GLUCOSE (test code = 0179779253) 188 mg/dL 70-110 H CREATININE (test code = 2160-0) 0.63 mg/dL 0.60-1.25 CALCIUM (test code = 3842196630) 9.4 mg/dL 8.6-10.6 eGFR (test code = 99241-7) 111.6 mL/min/1.73m2 CKD-EPI eGFR (2020). Assuming creatinine has been stable day-to-day for at least three months, the eGFR indicates Category G1 (>= 90 mL/min/1.73 m2) Lab Interpretation (test code = 82657-5) [facility]normal [facility] [id number] 09:21:26* Test Item Value Reference Range Interpretation [...] g/dL 31.2-35.0 H RDW-SD (test code = 83760-4) 36.9 fL 38.5-51.6 L RDW-CV (test code = 788-0) 11.6 % 12.1-15.4 L PLT (test code = 777-3) 407 150-328 H MPV (test code = 50387-0) 9.5 fL 9.8-13.0 L NRBC/100 WBC (test code = 0264992046) 0.0 0.0-10.0 NRBC x10^3 (test code = 8375654964) See_Comment [Automated messa ge] The system which generated this result transmitted reference range: 10*3/?L. The reference range was not used to interpret this result as normal/abnormal. GRAN MAT (NEUT) % (test code = 770-8) 63.1 % IMM GRAN % (test code = 5490210307) 0.30 % LYMPH % (test code = 736-9) 21.1 % MONO % (test code = 5905-5) 8.3 % EOS % (test code = 713-8) 6.5 % BASO % (test code = 706-2) 0.7 % GRAN MAT x10^3(ANC) (test code = 1485655063) 3.71 10*3/uL 1.99-6.95 IMM GRAN x10^3 (test code = 8334149434) 0.00-0.06 LYMPH x10^3 (test code = 731-0) 1.24 10*3/uL 1.09-3.23 MONO x10^3 (test code = 742-7) 0.49 10*3/uL 0.36-1.02 EOS x10^3 (test code = 711-2) 0.38 10*3/uL 0.06-0.53 BASO x10^3 (test code = 704-7) 0.04 10*3/uL 0.01-0.09 Lab Interpretation (test code = 50740-0) Abnormal [facility] GLUCOSE (AUTOMATED)2023-08-24 05:47:46* Test Item Value Reference Range Interpretation Comme [facility] POCT GLU (test code = 1876830197) 126 mg/dL 70-110 H Lab Interpretation (test cod e = 60827-0) Abnormal [facility] Metabolic Panel (NA, K, CL, CO2, GLUCOSE, BUN, CREATININE, CA)2023-08-24 02:27:27* Test Item Value Reference Range Interpretation Comme nts NA (test code = 7603254219) 129 mmol/L 135-145 L K (test code = 3128745325) 3.9 mmol/L 3.5-5.0 CL (test code = 4352956994) 96 mmol/L 98-108 L CO2 TOTAL (test code = 1114805960) 29 mmol/L 23-31 AGAP (test code = 0326338326) 4 2-16 BUN (test code = 9236998475) 14 mg/dL 7-23 GLUCOSE (test code = 8964961358) 185 mg/dL 70-110 H CREATININE (test code = 2160-0) 0.56 mg/dL 0.60-1.25 L CALCIUM (test code = 2021617770) 9.2 mg/dL 8.6-10.6 eGFR (test code = 99566-2) 115.7 mL/min/1.73m2 CKD-EPI eGFR (2020). Assuming creatinine has been stable day-to-day for at least three months, the eGFR indicates Category G1 (>= 90 mL/min/1.73 m2) Lab Interpretation (test code = 62780-0) Abnormal [facility] GLUCOSE (AUTOMATED)2023-08-24 01:28:28* Test Item Value Reference Range Interpretation Comme [facility] POCT GLU (test code = 2473025731) 210 mg/dL 70-110 H Lab Interpretation (test cod e = 46735-6) Abnormal [facility] GLUCOSE (AUTOMATED)2023-08-23 21:30:04* Test Item Value Reference Range Interpretation Comme nts POCT GLU (test code = 4515580022) 149 mg/dL 70-110 H Lab Interpretation (test cod e = 92100-0) Abnormal [facility] GLUCOSE (AUTOMATED)2023-08-23 16:45:20* Test Item Value Reference Range Interpretation Comme nts POCT GLU (test code = 1436192062) 147 mg/dL 70-110 H Lab Interpretation (test cod e = 50271-2) Abnormal [facility] GLUCOSE (AUTOMATED)2023-08-23 12:36:56* Test Item Value Reference Range Interpretation Comme nts POCT GLU (test code = 2961782254) 131 mg/dL 70-110 H Lab Interpretation (test cod e = 93188-2) Abnormal [facility] GLUCOSE (AUTOMATED)2023-08-23 09:17:23* Test Item Value Reference Range Interpretation Comme nts POCT GLU (test code = 0844633976) 154 mg/dL 70-110 H Lab Interpretation (test cod e = 31272-6) Abnormal [facility] GLUCOSE (AUTOMATED)2023-08-23 05:03:01* Test Item Value Reference Range Interpretation Comme nts POCT GLU (test code = 3346422007) 183 mg/dL 70-110 H Lab Interpretation (test cod e = 68683-8) Abnormal [facility] Metabolic Panel (NA, K, CL, CO2, GLUCOSE, BUN, CREATININE, CA)2023-08-23 01:49:58* Test Item Value Reference Range Interpretation Comme nts NA (test code = 1656705246) 132 mmol/L 135-145 L K (test code = 3401081782) 4.1 mmol/L 3.5-5.0 CL (test code = 2933301714) 101 mmol/L 98-108 CO2 TOTAL (test code = 9376810121) 28 mmol/L 23-31 AGAP (test code = 8339390489) 3 2-16 BUN (test code = 9812407657) 17 mg/dL 7-23 GLUCOSE (test code = 9724598177) 149 mg/dL 70-110 H CREATININE (test code = 2160-0) 0.97 mg/dL 0.60-1.25 CALCIUM (test code = 7684974013) 8.4 mg/dL 8.6-10.6 L eGFR (test code = 18221-2) 91.6 mL/min/1.73m2 CKD-EPI eGFR (2020). Assuming creatinine has been stable day-to-day for at least three months, the eGFR indicates Category G1 (>= 90 mL/min/1.73 m2) Lab Interpretation (test code = 70719-6) Abnormal [facility] GLUCOSE (AUTOMATED)2023-08-23 00:43:06* Test Item Value Reference Range Interpretation Comme [facility] POCT GLU (test code = 0861960708) 126 mg/dL 70-110 H Lab Interpretation (test cod e = 65445-0) Abnormal [facility] Center[facility]ort[facility] [id number] 22:59:03* Test Item Value Reference Range Interpretation Comme [facility] IBRAHIMA AM (test code = 6229861138) 24.7 ug/dL 4.5-23.0 H GINA (test code = GINA) Biotin has been reported to cause a positive bias, interpret results relative to patient's use of biotin. Lab Interpretation (test code = 39809-5) Abnormal [facility] GLUCOSE (AUTOMATED)2023-08-22 21:29:10* Test Item Value Reference Range Interpretation Comme [facility] POCT GLU (test code = 0156082930) 341 mg/dL 70-110 H Lab Interpretation (test cod e = 92271-2) Abnormal [facility]ric [id number] 19:53:59* Test Item Value Reference Range Interpretation Comme [facility] URIC ACID (test code = 0808852376) 6.4 mg/dL 3.6-8.0 Lab Interpretation (test cod e = 66236-1) Normal [facility] (NA, K, CL, CO2, GLUCOSE, BUN, CREATININE, CA)2023-08-22 14:43:15* Test Item Value Reference Range Interpretation Comme nts NA (test code = 8157929535) 138 mmol/L 135-145 K (test code = 5771387623) 4.6 mmol/L 3.5-5.0 CL (test code = 0233654486) 102 mmol/L 98-108 CO2 TOTAL (test code = 2283066413) 28 mmol/L 23-31 AGAP (test code = 0471728372) 8 2-16 BUN (test code = 0117996200) 34 mg/dL 7-23 H GLUCOSE (test code = 4462273111) 224 mg/dL 70-110 H CREATININE (test code = 2160-0) 1.89 mg/dL 0.60-1.25 H CALCIUM (test code = 3842691948) 9.4 mg/dL 8.6-10.6 eGFR (test code = 82449-0) 41.1 mL/min/1.73m2 CKD-EPI eGFR (2020). Assuming creatinine has been stable day-to-day for at least three months, the eGFR indicates Category G3b (30 - 44 mL/min/1.73 m2) Lab Interpretation (test code = 45300-4) Abnormal [facility] [id number] 14:42:45* Test Item Value Reference Range Interpretation Comme nts CK (test code = 1759837093) 224 U/L 33-194 H Lab Interpretation (test cod e = 25434-4) Abnormal [facility] Center[facility]osphorus [id number] 12:10:01* Test Item Value Reference Range Interpretation Comme nts PHOSPHORUS (test code = 1857176291) 5.8 mg/dL 2.5-5.0 H Lab Interpretation (test cod e = 63972-0) Abnormal [facility] (NA, K, CL, CO2, GLUCOSE, BUN, CREATININE, CA)2023-08-22 04:41:19* Test Item Value Reference Range Interpretation Comme nts NA (test code = 9125474929) 124 mmol/L 135-145 L K (test code = 6855054821) 4.7 mmol/L 3.5-5.0 CL (test code = 7243370212) 93 mmol/L 98-108 L CO2 TOTAL (test code = 5035670292) 18 mmol/L 23-31 L AGAP (test code = 8557193245) 13 2-16 BUN (test code = 0811276417) 68 mg/dL 7-23 H GLUCOSE (test code = 6745305012) 116 mg/dL 70-110 H CREATININE (test code = 2160-0) 6.60 mg/dL 0.60-1.25 H CALCIUM (test code = 9602671528) 9.0 mg/dL 8.6-10.6 eGFR (test code = 21534-4) 9.2 mL/min/1.73m2 CKD-EPI eGFR (2020). Assuming creatinine has been stable day-to-day for at least three months, the eGFR indicates Category G5 (<= 14mL/min/1.73 m2) Lab Interpretation (test code = 71895-3) Abnormal [facility] WO [id number] 02:22:05Exam: CT Abdomen and Pelvis without Contrast, [...] finding. Subacute/chronic left-sided rib fractures.Soft tissues: Unremarkable.[facility] (28928) 2023-08-22 02:21:33* Test Item Value Reference Range Interpretation Comme nts NA (test code = 8492323503) 120 mmol/L 135-145 L K (test code = 4609411997) 4.8 mmol/L 3.5-5.0 CL (test code = 1994939039) 85 mmol/L 98-108 L CO2 TOTAL (test code = 3254200694) 21 mmol/L 23-31 L AGAP (test code = 7403308593) 14 2-16 BUN (test code = 4881392449) 70 mg/dL 7-23 H GLUCOSE (test code = 3128507730) 97 mg/dL 70-110 CREATININE (test code = 2160-0) 8.39 mg/dL 0.60-1.25 H TOTAL BILI (test code = 1795214987) 0.7 mg/dL 0.1-1.1 CALCIUM (test code = 9145550726) 8.8 mg/dL 8.6-10.6 T PROTEIN (test code = 0991863925) 7.2 g/dL 6.3-8.2 ALBUMIN (test code = 1586729061) 4.1 g/dL 3.5-5.0 ALK PHOS (test code = 5999747836) 95 U/L 34-122 ALTv (test code = 1742-6) 12 U/L 5-50 AST(SGOT) (test code = 1783427539) 24 U/L 13-40 eGFR (test code = 70439-4) 6.9 mL/min/1.73m2 CKD-EPI eGFR (2020). Assuming creatinine has been stable day-to-day for at least three months, the eGFR indicates Category G5 (<= 14mL/min/1.73 m2) Lab Interpretation (test code = 17137-7) Abnormal [facility] Center[facility]ase2024-04-28 02:15:32* Test Item Value Reference Range Interpretation Comme nts LIPASE (test code = 0421378562) 758 U/L 0-220 H Lab Interpretation (test cod e = 45282-7) [facility] [id number] 01:58:31* Test Item Value Reference Range Interpretation [...] g/dL 31.2-35.0 H RDW-SD (test code = 47301-5) 36.0 fL 38.5-51.6 L RDW-CV (test code = 788-0) 11.5 % 12.1-15.4 L PLT (test code = 777-3) 312 150-328 MPV (test code = 91796-5) 9.4 fL 9.8-13.0 L NRBC/100 WBC (test code = 0908160197) 0.0 0.0-10.0 NRBC x10^3 (test code = 8456701713) See_Comment [Automated message] The system which generated this result transmitted reference range: 10*3/?L. The reference range was not used to interpret this result as normal/abnormal. GRAN MAT (NEUT) % (test code = 770-8) 82.7 % IMM GRAN % (test code = 4123045633) 0.50 % LYMPH % (test code = 736-9) 6.7 % MONO % (test code = 5905-5) 9.8 % EOS % (test code = 713-8) 0.2 % BASO % (test code = 706-2) 0.1 % GRAN MAT x10^3(ANC) (test code = 5568768157) 12.19 10*3/uL 1.99-6.95 H IMM GRAN x10^3 (test code = 7304033724) 0.08 10*3/uL 0.00-0.06 H LYMPH x10^3 (test code = 731-0) 0.99 10*3/uL 1.09-3.23 L MONO x10^3 (test code = 742-7) 1.44 10*3/uL 0.36-1.02 H EOS x10^3 (test code = 711-2) 0.03 10*3/uL 0.06-0.53 L BASO x10^3 (test code = 704-7) 0.01-0.09 Lab Interpretation (test code = 29622-3) [facility] [facility] GLUCOSE (AUTOMATED)2023-08-16 22:02:57* Test Item Value Reference Range Interpretation Comme nts POCT GLU (test code = 1585523768) 112 mg/dL 70-110 H Lab Interpretation (test cod e = 09875-6) [facility] 16:59:58* Test Item Value Reference Range Interpretation Comme nts POCT GLU (test code = 7096357940) 127 mg/dL 70-110 H Lab Interpretation (test cod e = 22295-1) [facility] 12:48:23* Test Item Value Reference Range Interpretation Comme nts POCT GLU (test code = 6962785496) 175 mg/dL 70-110 H Lab Interpretation (test cod e = 73180-8) Abnormal [facility] GLUCOSE (AUTOMATED)2023-08-16 02:07:02* Test Item Value Reference Range Interpretation Comme nts POCT GLU (test code = 4206416364) 195 mg/dL 70-110 H Notified Provide r Lab Interpretation (test code = 38118-9) Abnormal [facility] GLUCOSE (AUTOMATED)2023-08-15 21:36:15* Test Item Value Reference Range Interpretation Comme nts POCT GLU (test code = 7392153226) 284 mg/dL 70-110 H Lab Interpretation (test cod e = 35243-6) Abnormal [facility] GLUCOSE (AUTOMATED)2023-08-15 16:56:02* Test Item Value Reference Range Interpretation Comme nts POCT GLU (test code = 0603147855) 74 mg/dL 70-110 Lab Interpretation (test cod e = 11357-8) [facility]15 13:12:34* Test Item Value Reference Range Interpretation Comme nts POCT GLU (test code = 4884258141) 258 mg/dL 70-110 H Lab Interpretation (test cod e = 16384-4) [facility]15 04:04:43* Test Item Value Reference Range Interpretation Comme nts POCT GLU (test code = 8852007794) 120 mg/dL 70-110 H Lab Interpretation (test cod e = 84344-1) [facility]normal [facility]cos[facility] Hem[facility] (A1C)2023-08-15 01:17:32* Test Item Value Reference Range Interpretation Comme nts HGB A1C (test code = 4548-4) 8.9 % 4.0-5.7 H GINA (test code = GINA) Reference RangesNormal: <5.7%Prediabetes: 5.7 - 6.4%Diabetes: > 6.5% Lab Interpretation (test code = 85210-2) Abnormal [facility] CenterBeta Rchwrjo-[id number] 01:00:45* Test Item Value Reference Range Interpretation Comme nts BOH (test code = 5179911617) 0.5 mmol/L GINA (test code = GINA) Normal Ranges: ? ? Nonfasting ? Less than 0.1 mmol/L ? ? Overnight Fast ? ? ? Less than 0.4 mmol/L ? ? Fasting (1-2 weeks) ?6-8 mmol/L Test developed and characteristics determined by [facility] Laboratory Services. [facility] CenterCreatine Rnymcj1923-09-83 23:07:16* Test Item Value Reference Range Interpretation Comme nts CK (test code = 1836248609) 148 U/L 33-194 Lab Interpretation (test cod e = 44894-2) Normal [facility] CenterTROPONIN [id number] 22:18:16* Test Item Value Reference Range Interpretation Comme nts TROPONIN I (test code = 7113863256) 0.081 ng/mL <=0.034 H GINA (test code [...] of biotin. Lab Interpretation (test code = 01159-8) Abnormal [facility] CenterN-TERMINAL [id number] 22:15:55* Test Item Value Reference Range Interpretation Comme nts NT-proBNP (test code = 19199-8) 999 pg/mL <=125 H GINA (test code = GINA) Positive: Heart Failure Likely Lab Interpretation (test code = 92526-8) Abnormal [facility] CenterMagnesium2024-04-20 22:07:17* Test Item Value Reference Range Interpretation Comme nts MAGNESIUM (test code = 4445160426) 1.8 mg/dL 1.7-2.4 Lab Interpretation (test cod e = 63497-0) Normal [facility] CenterCOMP. METABOLIC PANEL (84428)2023 22:06:57* Test Item Value Reference Range Interpretation Comme nts NA (test code = 8023065814) 130 mmol/L 135-145 L K (test code = 9983951928) 3.4 mmol/L 3.5-5.0 L CL (test code = 5103609691) 93 mmol/L 98-108 L CO2 TOTAL (test code = 0540099986) 26 mmol/L 23-31 AGAP (test code = 2609741133) 11 2-16 BUN (test code = 8902784957) 39 mg/dL 7-23 H GLUCOSE (test code = 3205631139) 142 mg/dL 70-110 H CREATININE (test code = 2160-0) 2.40 mg/dL 0.60-1.25 H TOTAL BILI (test code = 9470626117) 1.2 mg/dL 0.1-1.1 H CALCIUM (test code = 3462507111) 9.1 mg/dL 8.6-10.6 T PROTEIN (test code = 2018634556) 7.7 g/dL 6.3-8.2 ALBUMIN (test code = 8796915971) 4.2 g/dL 3.5-5.0 ALK PHOS (test code = 0278733391) 102 U/L 34-122 ALTv (test code = 1742-6) 16 U/L 5-50 AST(SGOT) (test code = 5520894892) 26 U/L 13-40 eGFR (test code = 81391-9) 30.9 mL/min/1.73m2 CKD-EPI eGFR (2020). Assuming creatinine has been stable day-to-day for at least three months, the eGFR indicates Category G3b (30 - 44 mL/min/1.73 m2) Lab Interpretation (test code = 20786-6) Abnormal [facility] CenterPhosphorus2024-04-20 22:06:37* Test Item Value Reference Range Interpretation Comme nts PHOSPHORUS (test code = 3359580541) 4.9 mg/dL 2.5-5.0 Lab Interpretation (test cod e = 91509-0) Normal [facility] CenterLIPASE2024-04-20 22:06:17* Test Item Value Reference Range Interpretation Comme nts LIPASE (test code = 7479849497) 204 U/L 0-220 Lab Interpretation (test cod e = 25251-3) Normal [facility] CenterCBC WITH [id number] 21:54:56* Test Item Value Reference Range Interpretation [...] g/dL 31.2-35.0 H RDW-SD (test code = 33495-5) 38.1 fL 38.5-51.6 L RDW-CV (test code = 788-0) 11.8 % 12.1-15.4 L PLT (test code = 777-3) 235 150-328 MPV (test code = 55247-6) 11.1 fL 9.8-13.0 NRBC/100 WBC (test code = 6002039046) 0.0 0.0-10.0 NRBC x10^3 (test code = 1887444353) See_Comment [Automated message] The system which generated this result transmitted reference range: 10*3/?L. The reference range was not used to interpret this result as normal/abnormal. GRAN MAT (NEUT) % (test code = 770-8) 80.3 % IMM GRAN % (test code = 5729217012) 0.60 % LYMPH % (test code = 736-9) 8.7 % MONO % (test code = 5905-5) 10.0 % EOS % (test code = 713-8) 0.2 % BASO % (test code = 706-2) 0.2 % GRAN MAT x10^3(ANC) (test code = 8433763165) 10.18 10*3/uL 1.99-6.95 H IMM GRAN x10^3 (test code = 9864130045) 0.07 10*3/uL 0.00-0.06 H LYMPH x10^3 (test code = 731-0) 1.11 10*3/uL 1.09-3.23 MONO x10^3 (test code = 742-7) 1.27 10*3/uL 0.36-1.02 H EOS x10^3 (test code = 711-2) 0.03 10*3/uL 0.06-0.53 L BASO x10^3 (test code = 704-7) 0.03 10*3/uL 0.01-0.09 Lab Interpretation (test code = 91697-5) Abnormal [facility] CenterXR CHEST 1 [id number] 21:49:58EXAM: XR CHEST 1 2023 4:38 PM HISTORY: 58 years-old Male with r/o infilrate . TECHNIQUE: Portable AP view of the chest. COMPARISON: 04/21/2023 FINDINGS: Lines and tubes: None. Cardiomediastinal: The cardiomediastinal silhouette is unremarkable. Lungs and pleura: The lungs are clear. No focal consolidation,pneumothorax, or pleural effusion is seen. Included osseous structures show no acuteabnormality.[facility] CenterCT ABDOMEN PELVIS W [id number] 21:45:03EXAM: CT ABDOMEN AND PELVIS WITH CONTRAST [...] change involving the spine, sacroiliac jointsand hips ispresent.[facility] CenterCT TRAUMA HEAD WO [id number] 21:38:37FULL RESULT: Examination: CT TRAUMA HEAD WO CONTRAST on 2023 4:16 PM Clinical Indication: Headache, hypertensive Comparison: None Technique: Noncontrast imaging was obtained from base to vertex.Findings: The sulci and ventricles were unremarkable. There may be subtlewhite matter microvascularischemic changes, notably in the anteriorperiventricular region, but there is no evidence for hemorrhage or otherclearly acute intracranial process.[facility] CenterLactic Acid Whole [id number] 21:30:25* Test Item Value Reference Range Interpretation Comme nts LACTIC ACID (test code = 8221727984) 1.58 mmol/L 0.50-2.20 Lab Interpretation (test cod e = 71149-1) Normal [facility] CenterAcute Care Venous Blood [id number] 21:30:25 * Test Item Value Reference Range Interpretation Comme nts PH (test code = 5821183585) 7.34 7.32-7.42 PCO2 NOY (test code = 2390517607) 45 41-51 PO2 NOY (test code = 4046534968) 24 25-40 L HCO3 NOY (test code = 5383933318) 24 24-28 AC VBE(BEAKER) (test code = 6683371058) -1.9 mEq/L Lab Interpretation (test cod e = 63593-5) Abnormal [facility] GLUCOSE (AUTOMATED)2023 20:26:17* Test Item Value Reference Range Interpretation Comme nts POCT GLU (test code = 4018331092) 165 mg/dL 70-110 H Lab Interpretation (test cod e = 10515-1) Abnormal [facility] GLUCOSE(AGE >30DAYS)2023 20:26:00* Test Item Value Reference Range Interpretation Comme nts POCT Glu (age>30days) (test code = 3342) 165 mg/dL 70-110 A Lab Interpretation (test cod e = 90577-4) Abnormal [facility] GLUCOSE (AUTOMATED)2023-04-23 18:15:28* Test Item Value Reference Range Interpretation Comme nts POCT GLU (test code = 0354765824) 218 mg/dL 70-110 H Lab Interpretation (test cod e = 42403-6) [facility]-23 15:35:23* Test Item Value Reference Range Interpretation Comme nts POCT GLU (test code = 3534148718) 186 mg/dL 70-110 H Lab Interpretation (test cod e = 74584-9) Abnormal [facility] GLUCOSE (AUTOMATED)2023-04-23 02:57:57* Test Item Value Reference Range Interpretation Comme nts POCT GLU (test code = 1785952269) 82 mg/dL 70-110 Lab Interpretation (test cod e = 25184-4) Normal [facility] GLUCOSE (AUTOMATED)2023-04-23 00:33:51* Test Item Value Reference Range Interpretation Comme nts POCT GLU (test code = 2436073136) 181 mg/dL 70-110 H Lab Interpretation (test cod e = 73308-1) Abnormal [facility] GLUCOSE (AUTOMATED)2023-04-22 22:54:22* Test Item Value Reference Range Interpretation Comme nts POCT GLU (test code = 3941549925) 127 mg/dL 70-110 H Lab Interpretation (test cod e = 30311-9) Abnormal [facility] GLUCOSE (AUTOMATED)2023-04-22 20:37:54* Test Item Value Reference Range Interpretation Comme nts POCT GLU (test code = 2086512481) 230 mg/dL 70-110 H Lab Interpretation (test cod e = 11921-4) Abnormal [facility] GLUCOSE (AUTOMATED)2023-04-22 17:46:23* Test Item Value Reference Range Interpretation Comme nts POCT GLU (test code = 0670948014) 144 mg/dL 70-110 H Lab Interpretation (test cod e = 36630-1) Abnormal [facility] GLUCOSE (AUTOMATED)2023-04-22 13:42:26* Test Item Value Reference Range Interpretation Comme nts POCT GLU (test code = 1458843906) 229 mg/dL 70-110 H Lab Interpretation (test cod e = 10663-2) Abnormal [facility] GLUCOSE (AUTOMATED)2023-04-22 03:33:49* Test Item Value Reference Range Interpretation Comme nts POCT GLU (test code = 4184374426) 222 mg/dL 70-110 H Lab Interpretation (test cod e = 07750-0) Abnormal [facility] GLUCOSE (AUTOMATED)2023-04-22 01:36:03* Test Item Value Reference Range Interpretation Comme nts POCT GLU (test code = 4892618838) 282 mg/dL 70-110 H Lab Interpretation (test cod e = 84356-6) Abnormal [facility] CenterEchocardiogram dobutamine stress test 2023-04-21 22:26:30* Test Item Value Reference Range Interpretation Comme nts Height (test code = 2658914816) 63 in Weight (test code = 4823692932) 130 lbs Systolic BP (test code = 5835737480) 122 mmHg Diastolic BP (test code = 6704154674) 81 mmHg Heart Rate (test code = 2256521463) 105 bpm BSA (test code = 0849713314) 1.[address] Depresion (mm) (test code = 3860554691) [address] Depression (mm) (test code = 4867679874) 0 mm Radiology Study observation (narrative) (test code = 11545-8) GINA (test code = GINA) Table formatting [...] left ventricular wall motion is globally hyperkinetic. [facility] CenterTransthoracic echo (TTE)2023-04-21 18:05:03* Test Item Value Reference Range Interpretation Comme nts Height (test code = 5262074260) 63 in Weight (test code = 6175942394) 130 lbs Systolic BP (test code = 6958773582) 114 mmHg Diastolic BP (test code = 7998102311) 75 mmHg Heart Rate (test code = 7951656590) 98 bpm BSA (test code = 6909385596) 1.61 m2 LVIDD (test code = 7246992314) 4.00 cm Left Ventricular End Diastolic Volume by Teichholz Method (test code = 7023388) 70.0 mL IVS (test code = 8138302092) 1.07 cm Interventricular Septum Diastolic Thickness by 2D (test code = 1236797) 1.07 cm LVPWD (test code = 8126380531) 1.05 cm PW (test code = 7665991214) 1.05 cm 0.6-1.1 EF(Teich) (test code = 3506795000) 62.60 % LVIDS (test code = 3163415850) 2.70 cm Left Ventricular End Systolic Volume by Teichholz Method (test code = 0767922) 26.2 mL FS (test code = 2815630587) 33 % EF - 2D (test code = 97730427) 62.60 % Ao root diam (test code = 0516030024) 3.70 cm Aortic root (test code = 3354766261) 3.7 cm Ao root annulus (test code = 4928679502) 3.7 cm LA size (test code = 5584678124) 3.2 cm LVOT diameter (test code = 0958237356) 2.08 cm LVOT area (test code = 2408883572) 3.40 cm2 MV Peak E Nima (test code = 9153560033) 48.3 cm/s E wave decelartion time (test code = 4712639397) 0.15 s MV Peak A Nima (test code = 3508417916) 74.4 cm/s E/A ratio (test code = 0175044605) 0.65 ratio MV Prop V (test code = 7433013774) 21.20 cm/s LAV(MOD-sp4) (test code = 4666770182) 35.30 mL Tapse (test code = 4997964724) 1.73 cm LVOT stroke volume (test code = 6517827781) 45.20 cm3 LVOT peak nima (test code = 1314282793) 79.0 cm/s LVOT mn grad (test code = 6691284430) 1.3 mmHg AV LVOT peak gradient (test code = 0626971121) 2.50 mmHg LVOT peak VTI (test code = 1093892277) 13.2 cm LV V1 mean (test code = 8926136035) 52.90 cm/s Ao peak nima (test code = 9056753187) 83.8 cm/s AV area peak nima (test code = 7199898541) 3.2 cm2 Ao max PG (test code = 4195054649) 2.80 mm[Hg] AV peak gradient (test code = 7594611317) 2.8 mmHg LA Volume Index (BP) (test code = 5155271823) 25.9 mL/m2 LA volume (BP) (test code = 2343235048) 41.8 mL LAV(MOD-sp2) (test code = 4299491762) 40.90 mL A4C EF (test code = 5451139384) 54.40 % EF(sp4-el) (test code = 0088914367) 55.00 % SV(MOD-sp4) (test code = 1402848205) 53.10 mL SV(sp4-el) (test code = 9421911531) 55.60 mL Radiology Study observation (narrative) (test code = 80841-0) GINA (test code = GINA) ?Left?Ventricle: Left [...] enhancing agent used. Patient exhibited sinus rhythm. [facility]PO[facility])2023-04-21 17:48:26* Test Item Value Reference Range Interpretation Comme nts POCT GLU (test code = 8002532582) 198 mg/dL 70-110 H Lab Interpretation (test cod e = 57839-4) Abnormal [facility] CenterXR CHEST 1 [id number] 15:12:07EXAM: XR CHEST 1 VW HISTORY: NSTEMI COMPARISON: None. FINDINGS: Small bandlike densities in the left midlung have more the appearance ofatelectasis than pneumonia. The lungs are well expanded and clearotherwise. The heart and great vessels are normal except for calcium in thearch of the aorta.[facility] CenterPOCT [facility]SE (AUT[facility]ATED)2023-04-21 09:39:57* Test Item Value Reference Range Interpretation Comme nts POCT GLU (test code = 0884466192) 243 mg/dL 70-110 H Lab Interpretation (test cod e = 13326-4) Abnormal [facility] CenterFerritin [id number] 07:28:27* Test Item Value Reference Range Interpretation Comme nts FERRITIN (test code = 7668574243) 76.3 ng/mL 18.0-464.0 GINA (test code = GINA) Biotin has been reported to cause a negative bias, interpret results relative to patient's use of biotin. Lab Interpretation (test code = 69191-8) Normal [facility] CenterGlycosylated Hemoglobin (A1C)2023-04-21 07:25:47* Test Item Value Reference Range Interpretation Comme [facility] HGB A1C (test code = 4548-4) 12.6 % 4.0-5.7 H GINA (test code = GINA) Reference RangesNormal: <5.7%Prediabetes: 5.7 - 6.4%Diabetes: > 6.5% Lab Interpretation (test code = 01363-0) Abnormal [facility] CenterThyroid Stimulating [id number] 07:24:07 * Test Item Value Reference Range Interpretation Comme nts TSH (test code = 1206768460) 2.56 See_Comment [Automated Hypercontexta ge] The system which generated this result transmitted reference range: 0.45 - 4.70 mIU/L. The reference range was not used to interpret this result as normal/abnormal. Lab Interpretation (test code = 55143-1) Normal [facility] CenterPhosphorus2023-12-27 06:52:06* Test Item Value Reference Range Interpretation Comme nts PHOSPHORUS (test code = 7905678775) 3.2 mg/dL 2.5-5.0 Lab Interpretation (test cod e = 96465-9) Normal [facility] CenterCritical [id number] 02:54:15NSergio chin MD ? ? 04/20/2023 ?8:54 [...] separately billable procedures and treating other patients. [facility] [id number] 02:30:18* Test Item Value Reference Range Interpretation Comme nts TROPONIN I (test code = 6418799308) 0.154 ng/mL <=0.034 H GINA (test code [...] of biotin. Lab Interpretation (test code = 29257-9) Abnormal [facility] CenterETHANOL2023-12-27 02:24:46 ALCOHOL<10mg/dL04/20/2023 8:24 PM [facility]10 Tyhmsvot37-534 Toxic>100 Depression of SERVICE SPECIALIST>400 Fatalities ReportedUnTexas Health [facility]byterian [facility] F[facility] MoundCOMP. METABOLIC PANEL (62064)2023-04-21 02:19:15* Test Item Value Reference Range Interpretation Comme nts NA (test code = 7988028875) 129 mmol/L 135-145 L K (test code = 4623112152) 3.5 mmol/L 3.5-5.0 CL (test code = 4805991421) 94 mmol/L 98-108 L CO2 TOTAL (test code = 1344624305) 28 mmol/L 23-31 AGAP (test code = 2023034798) 7 2-16 BUN (test code = 8926492897) 26 mg/dL 7-23 H GLUCOSE (test code = 4808440298) 314 mg/dL 70-110 H CREATININE (test code = 1353979508) 0.92 mg/dL 0.60-1.25 TOTAL BILI (test code = 0510696090) 0.8 mg/dL 0.1-1.1 CALCIUM (test code = 9242250359) 8.5 mg/dL 8.6-10.6 L T PROTEIN (test code = 4185923319) 6.0 g/dL 6.3-8.2 L ALBUMIN (test code = 2526839273) 3.3 g/dL 3.5-5.0 L ALK PHOS (test code = 1718001548) 95 U/L 34-122 ALTv (test code = 1742-6) 23 U/L 5-50 AST(SGOT) (test code = 1457300474) 30 U/L 13-40 eGFR (test code = 33792-7) 98.2 mL/min/1.73m2 CKD-EPI eGFR (2020). Assuming creatinine has been stable day-to-day for at least three months, the eGFR indicates Category G1 (>= 90 mL/min/1.73 m2) Lab Interpretation (test code = 96733-6) Abnormal [facility] WITH [id number] 02:03:54* Test Item Value Reference Range Interpretation [...] g/dL 31.2-35.0 H RDW-SD (test code = 49371-8) 36.2 fL 38.5-51.6 L RDW-CV (test code = 788-0) 11.6 % 12.1-15.4 L PLT (test code = 777-3) 178 See_Comment [Automated messa ge] The system which generated this result transmitted reference range: 150 - 328 10*3/?L. The reference range was not used to interpret this result as normal/abnormal. MPV (test code = 15785-2) 10.9 fL 9.8-13.0 NRBC/100 WBC (test code = 7562083244) 0.0 See_Comment [Automated me ssage] The system which generated this result transmitted reference range: 0.0 - 10.0 /100 WBCs. The reference range was not used to interpret this result as normal/abnormal. NRBC x10^3 (test code = 2192235288) See_Comment [Automated messa ge] The system which generated this result transmitted reference range: 10*3/?L. The reference range was not used to interpret this result as normal/abnormal. GRAN MAT (NEUT) % (test code = 770-8) 81.3 % IMM GRAN % (test code = 2048144018) 0.30 % LYMPH % (test code = 736-9) 10.5 % MONO % (test code = 5905-5) 7.6 % EOS % (test code = 713-8) 0.1 % BASO % (test code = 706-2) 0.2 % GRAN MAT x10^3(ANC) (test code = 1913986302) 9.55 10*3/uL 1.99-6.95 H IMM GRAN x10^3 (test code = 7208261170) 0.04 10*3/uL 0.00-0.06 LYMPH x10^3 (test code = 731-0) 1.23 10*3/uL 1.09-3.23 MONO x10^3 (test code = 742-7) 0.89 10*3/uL 0.36-1.02 EOS x10^3 (test code = 711-2) 0.06-0.53 L BASO x10^3 (test code = 704-7) 0.01-0.09 Lab Interpretation (test code = 99733-5) Abnormal [facility] CenterPO[facility] ([facility]ATED)2023-04-21 01:55:51* Test Item Value Reference Range Interpretation Comme nts POCT GLU (test code = 4293397430) 408 mg/dL 70-110 H Lab Interpretation (test cod e = 43895-1) Abnormal [facility] CenterCOMPREHENSIVE METABOLIC [id number] 05:07:51* Test Item Value Reference Range Interpretation Comme nts GLUCOSE (test code = 2217) 224 MG/DL 70-99 H BUN (test code = 2208) 22 MG/DL 6-20 H CREATININE (test code = 2214) 0.71 MG/DL 0.80-1.40 L eGFR (2020 CKD-EPI) (test code = 99431) 109 ML/MIN/1.73 >60 CALC BUN/CREAT (test code [...] code = 2218) 24 U/L 5-50 LIPID [id number] 05:07:51* Test Item Value Reference Range Interpretation [...] SPECIMENS. FOR MOREINFORMATION, SEE CLIENT ANNOUNCEMENT AT [email or web address] RATIO LDL/HDL (test code = 2238) 1.72 RATIO <3.55 PSA, [id number] 05:07:10* Test Item Value Reference Range Interpretation Comme nts PSA, TOTAL (test code = 2606) 19.70 NG/ML See_Comment H NOTE: Methodolog y is Ashley Jasmina Electrochemiluminescence Immunoassay traceable to WHO reference standard 96/760. UNLESS OTHERWISE INDICATED, ALL TESTING PERFORMED [facility] [employer] [address] [place] [address] [employer]: DUSTIN COLMENARES M.D. CLIA NUMBER [id number] [place]. [id number] [Automated message] The system which generated this result transmitted reference range: <=4.00. The reference range was not used to interpret this result as normal/abnormal. HEMOGLOBIN [id number] 02:46:58* Test Item Value Reference Range Interpretation Comme nts HEMOGLOBIN A1c (test code = 24442) 11.0 % 4.2-5.6 H [employer] GUIDELINES FOR HGB A1C: [...] OR LABORATORY CONSULTATION. CBC W/AUTO DIFF WITH [id number] 02:32:39* Test Item Value Reference Range Interpretation [...] 0.00-0.10 ABS NUCLEATED RBCS (test code = 70249) 0.00 K/UL 0.00-0.11 Consult Notes Date/Time Note [...] when jensen is moved. COMMUNICATION Primary Language: Indonesian Able to Verbalize needs: Yes Vision:good; no [...] Minutes: 20 min Jesica Murphy,PT [place]x License: [id number] Required Components in Determining Evaluation Level History: No personal factors or comorbidities: No (66163) 1-2 personal factors and/or comorbidities: Yes (95376) 3 or more personal factors and/ or comorbidities: No (58612) Examination of Body System(s) Addressing 1-2 elements: Yes (18241) Addressing a total of 3 or more elements: No (15641) Addressing a total of 4 or more elements: No (16346) Clinical Presentation Stable: Yes (58953) Evolving: No (18396) Unstable: No (87856) Clinical Decision Making (Complexity) Low: No (95088) Moderate: Yes (30683) High: No (86013) Jesica Murphy PT [facility] - [employer] 2023-08-15 10:01:34 Associated Order(s): CONSULT CARDIOLOGY [facility] Cardiology Consult Note Patient: [...] Last Two A1C Results ([facility]/, POCT, [place]) Recent Labs [...] feel free to call our office at [phone]. I would be happy to be of further assistance for Saturnino Shah wellbeing. Voice recognition software has been used to create portions of this document. An attempt to proofread has been made to minimize errors. Please do not hesitate to call with any questions. Benja Rivera MD [employer], Division of Cardiology [facility] 2023-04-21 08:46:48 Associated Order(s): CONSULT ENDOCRINOLOGY Endocrinology Consult Note Consultation requested by: Service: White team Reason for Consultation: Diabetes Date of Service: 04/21/23 HPI 57 year old male with a PMH of HTN, T2DM, Fmhx premature CAD who presented with complaints of polyuria and weakness at [facility] ER. Patient transferred to [place] for further work up. Endocrinology consulted for diabetes management Diabetes Type and year diagnosed: 2011, type 2 Diabetes complications: none Hx of DM regimen: no meds for 3 years Compliance: - BG monitoring? - Hypoglycemia hx: no Hypoglycemia unawareness? no Symptoms of hyperglycemia: polyuria Living situation and support: homeless, lives with different relatives Diabetes doctor: PCP in [place], has not seen for few years Family [...] with complaints of polyuria and weakness at [facility] ER. Patient transferred to [place] for further work up. Endocrinology consulted for [...] pay, need NPH and Regular insulin to [facility] ([employer]) -Need insulin vials, syringe needles, glucometer, test strips, lancets -Need meds to bed before discharge -Please contact Endocrine before discharge - Case discussed with Dr. Cabrera.. Austin Amaro. Endocrinology Fellow, PGY 5 UNITY ASSOCIATE Associated attestation - Rita Cabrera MD - 04/22/2023 2:11 PM COMMUNITY ASSOCIATE Endocrinology Faculty Attestation: I evaluated this patient's progress on 04/21/[address] Amaro note as written and revised. I actively participated in the decision-making process. Please see the resident's note for additional details that includes pertinent addendums I made directly in the note during revision. Rita Cabrera MD [employer] Division of Endocrinology IM-ENDOCRINOLOGY,DIABET ES & METABOLISM [facility] - Health History and Physical Notes Date/Time Note Provider Source 2023-08-21 22:53:[address] [facility] Hospitalist Admission H&P Date [...] consulted. Patient was given the application for [facility] on last admission and will need to [...] user?: NO Patient will require observation [place] [employer] was verified during stay Lyubov Banda MD [facility] 2023 22:58:21 MEDICINE MEGADC ADMIT H&P [...] Code Status: Presumed Full Code T [facility] [place] EMERGENCY PHYSICIAN STAFF [facility] 2023-04-21 00:39:12 MCAWHITE Admit H&P PCP: Erik Louie Jr Date of Service: 04/20/2023 CHIEF COMPLAINT: Polyuria HISTORY OF PRESENT ILLNESS Saturnino Shah is a 57 year old male with a PMH of HTN, T2DM, Fmhx premature CAD who presented with complaints of polyuria and weakness at [facility] ER. Patient transferred to [place] for further work up. Patient reports that [...] help with resources. Plan: - Admit to [facility] - Trend Troponin to peak - Heparin [...] Internal Medicine Department PGY 2, [place] Team UNITY ASSOCIATE Associated attestation - Bret Banda MD - 04/21/2023 2:47 PM COMMUNITY ASSOCIATE I reviewed patient's chart, vitals, lab work, current medications and other diagnostic studies. I saw and examined the patient today and agree with the detailed note. I actively participated in the decision-making process. Bret Banda MD Machine [employer] Division of Cardiology [facility] - Health Notes Date/Time [...] Outcome: Adequate for discharge Kalina Georges RN [facility] 2023-08-24 13:14:04 Problem: Pain Goal: Control of [...] Absence of falls Outcome: Adequate for discharge [facility] 2023-08-23 07:12:12 Problem: Pain Goal: Control of [...] Progressing as expected T Abi Lowery RN [facility] 2023-08-22 22:07:54 Problem: Pain Goal: Control of [...] Outcome: Progressing as expected Tammy Sweeney RN [facility] 2023-08-22 08:41:53 Problem: Pain Goal: Control of [...] Outcome: Progressing as expected Mihaela Lopez RN [facility] 2023-08-22 03:26:01 Problem: Pain Goal: Control of [...] Outcome: Progressing as expected Angeline Claudio RN [facility] 2023-08-21 23:32:26 Patient admitted to [facility] 2101 for diagnosis of ELIEZER, urinary obstruction Patient agrees to admission, discussed plan of care with patient and family. Patient is awake, alert, oriented, resp reg unlabored, color appropriate for race, PIV intact No adverse reaction to medications administered while in ED Belongings with patient to unit Report to [facility] RN Chela Reyes RN [facility] 2023-08-21 19:43:36 Pt C/O RLQ pain that started yesterday, pt states last BM 08/16/2023. Pt denies any urinary, nausea or vomiting Sydney Duff RN [facility] 2023-08-21 19:39:[address] [facility] Emergency Department Note Patient Name: Saturnino Shah Date of : 1965 58 year old male Treatment Room: [place] [address] Primary Care Physician: Erik Louie Jr Patient Escorted by: Self [9] Mode of Arrival: EMS - [place] [46] EMS Treatment Prior to ED Arrival: COLLEGE ADMISSIONS COUNSELOR treatment: None Travel and Exposure Screening: Symptoms [...] 0.01 - 0.09 10*3/uL COMP. METABOLIC PANEL (76989) - Abnormal NA 120 (*) 135 - [...] CONTRAST Cbc with Diff Comp. Metabolic Panel (03101) Lipase Urinalysis Basic Metabolic Panel (NA, K, [...] treatment AdmissionCare documentation entered by: Cosme Cardona [facility] BuyHappy, 27th edition, Copyright ? 2022 [facility] [employer] All Rights Reserved. [id number]:32-05:00 ED COURSE ED Course as of 08/21/235 [...] Electronically signed by: Cosme Cardona DO 08/21/232254 [facility] 2023-08-21 19:39:00 AdmissionCare Guideline: Urologic Disease, [...] treatment AdmissionCare documentation entered by: Cosme Cardona [facility] BuyHappy, 27th edition, Copyright ? 2022 [facility] EasySize [facility] All Rights Reserved. [id number]:32-05:00 [facility] 2023-08-17 08:32:29 ----- Message from Yary Renner [...] with one of us in 3-4 weeks. [facility] 2023-08-16 17:56:55 Summary: discharge transportation Discharge paperwork provided, patient stated he does not have a ride. Transportation was arranged with voucher. Discharge location: [address] [place] [id number] Patient verbalized understanding. T Hilary Quinones RN [facility] 2023-08-16 17:19:16 Problem: Pain Goal: Control of pain at or below patient's documented comfort goal Outcome: Resolved Goal: Reduction in pain sensation Outcome: Resolved Problem: Skin integrity Impaired (Risk or Actual) Goal: Prevention of new skin breakdown Outcome: Resolved Problem: Venous Thromboembolism, (actual or risk of) Goal: Absence of venous thromboembolism (Risk) Outcome: Resolved [facility] 2023-08-16 10:33:18 Summary: jensen Jensen discontinued without complications. Patient given lactulose PO. Patient notified to notify nurse and to leave urine/stool before flushing for nursing staff to assess. Patient verbalized understanding. [facility] 2023-08-16 00:51:24 Problem: Pain Goal: Control of pain at or below patient's documented comfort goal Outcome: Progressing as expected Goal: Reduction in pain sensation Outcome: Progressing as expected Problem: Skin integrity Impaired (Risk or Actual) Goal: Prevention of new skin breakdown Outcome: Progressing as expected Problem: Venous Thromboembolism, (actual or risk of) Goal: Absence of venous thromboembolism (Risk) Outcome: Progressing as expected [facility] 2023-08-15 19:27:06 Problem: Pain Goal: Control [...] Outcome: Progressing as expected Libia Johnson RN [facility] 2023 23:43:36 Problem: Pain Goal: Control of pain at or below patient's documented comfort goal Outcome: Progressing as expected Goal: Reduction in pain sensation Outcome: Progressing as expected Problem: Skin integrity Impaired (Risk or Actual) Goal: Prevention of new skin breakdown Outcome: Progressing as expected Problem: Venous Thromboembolism, (actual or risk of) Goal: Absence of venous thromboembolism (Risk) Outcome: Progressing as expected [facility] 2023 23:01:15 Patient admitted to [facility] for diagnosis of Hypertension, elevated troponin, urine retention, ELIEZER, hypokalemia. Patient agrees to admission, discussed plan of care with patient and family. Patient is awake, alert, oriented, resp reg unlabored, color appropriate for race, PIV intact No adverse reaction to medications administered while in ED Belongings with patient to unit Report to [facility] RN Josi Miller RN [facility] 2023 18:56:57 Handoff report given to Josi VILLAGRAN Nunu Fang RN [facility] 2023 14:42:29 Has been out of diabetic, BP meds since April. States he can't "afford it". Struggling with constipation for "several days". He called EMS today for excessive fatigue and worsening hypertension. He is A&Ox4 and able to ambulate. Alba Hernandez RN [facility] - Health 2023 14:38:00 Associated Order(s): EKG-12 Lead ROUTINE ONCE Pre-Procedure Diagnose(s): Hypertension, unspecified type Post-Procedure Diagnose(s): Hypertension, unspecified type; Elevated troponin I level; Urine retention [facility] Emergency Department Note Patient Name: Saturnino Shah Date of : 1965 58 year old male [facility] Primary Care Physician: Erik Louie Jr Patient Escorted by: Self [9] Mode of Arrival: EMS - [place] [46] EMS Treatment Prior to ED Arrival: [...] History provided by: Patient and medical records educational sign language interpreter used: No Past Medical History/Immunizations: Past Medical [...] ED Events Date/Time Event User Comments 08/14/23 5412 Medical Screening Begins UMANG REYNAGA MD -- [...] ED Physician in the absence of a president & ceo [employer]: yes Previous ECG: Previous ECG: Compared to [...] signed by: Umang Reynaga MD 04/20/24 1852 T [facility] [employer]Happy 2023 14:38:00 AdmissionCare Guideline: Renal Failure (Acute), [...] assessments) AdmissionCare documentation entered by: Umang Reynaga MailWriter, edition, Copyright ? 2022 [email or web address] All Rights Reserved. [id number]:45:18-05:00 T [facility] [employer] 2023 14:38:00 AdmissionCare Guideline: Renal Failure (Acute) [...] patients) AdmissionCare documentation entered by: Umang Reynaga MailWriter, edition, Copyright ? 2022 [employer] All Rights Reserved. [id number]:00:25-05:00 [facility] 2023-04-27 15:56:14 TRANSITIONAL CARE MANAGEMENT ASSESSMENT 04/27/2023 Saturnino Shah [id number] Saturnino Shah is a 57 year old /White male was admitted on 04/20/[address] He was discharged on 04/23/23 with [...] to check in. No linked episodes TCM Qiw-aqyi-lq-face outreach documentation: Future Appointments: UNITY ASSOCIATE Jeannette Dawn LVN [facility] 2023-04-23 18:39:42 Patient refuses to take taxi voucher which takes him directly to [place] stating, "My brother is on his way to pick me up. I don't want to upset him as it is anymore." When asked if his brother is going to take him to [place], patient stated, "I don't know. That will be between me and my brother." Transportation in room, wheeled patient downstairs to [facility]. UNITY ASSOCIATE Meme Sparks RN [facility] 2023-04-23 17:33:42 Problem: Glucose control Goal: Glucose [...] Outcome: Progressing as expected A Whiting RN [facility] 2023-04-23 17:33:03 Problem: Glucose control Goal: Glucose [...] Valentino Whiting RN Outcome: Progressing as expected [facility] 2023-04-23 10:51:50 Problem: Glucose control Goal: Glucose [...] of cognitive ability Outcome: Progressing as expected [facility] 2023-04-23 00:56:44 Problem: Mental Status - Impaired Goal: Able to achieve maximum level of cognitive ability Outcome: Progressing as expected [facility] 2023-04-23 00:52:07 Problem: Glucose control Goal: Glucose [...] within specified parameters Outcome: Progressing as expected [facility] 2023-04-22 08:03:00 Problem: Glucose control Goal: Glucose [...] within specified parameters Outcome: Progressing as expected [facility] 2023-04-20 23:38:56 Problem: Glucose control Goal: Glucose [...] within specified parameters Outcome: Progressing as expected [facility] 2023-04-20 21:49:51 Patient admitted to [facility] ROOM 923 for diagnosis of WEAKNESS, NSTEMI, HYPERGLYCEMIA Patient agrees to admission, discussed plan of care with patient. Patient is awake, alert, oriented, resp reg unlabored, color appropriate for race, PIV intact No adverse reaction to medications administered while in ED Belongings with patient to unit Report to MARIE VILLAGRAN REPORT GIVEN TO [facility] FOR [facility], PT LOADED TO BE TRANSFERRED. [facility] INFUSING AT 700 UNITS/ HOUR. [facility] Jaelyn Vargas RN [facility] 2023-04-20 21:38:11 Report called to [facility], spoke with Marie VILLAGRAN. Pt awaiting EMS transfer. [facility] 2023-04-20 20:59:06 [facility] ETA 45 MIN per Chen A Carrero PCT [facility] 2023-04-20 20:54:15 Associated Order(s): Critical Care Critical [...] separately billable procedures and treating other patients. [facility] [employer] 2023-04-20 20:00:00 Patient aware of UA sample needed. Unable to provide sample at this moment. Urinal at bedside. Call light within reach. [facility] [employer] 2023-04-20 19:50:08 Patient arrived to ED via [facility] c/o "not feeling well." FSBG 386 COLLEGE ADMISSIONS COUNSELOR. Per patient he was diagnosed with DM five years ago and stopped taking home meds-Metformin about three years ago. Patient c/o of being weak and increased UOP. Patient was nauseous COLLEGE ADMISSIONS COUNSELOR but has resolved since. UNITY ASSOCIATE [facility] 2023-04-20 19:43:00 EMERGENCY DEPARTMENT ENCOUNTER [facility] Patient Name: Saturnino Shah Date of : 1965 57 year old Exam Room:Room/bed info not found Primary Care Physician: No primary care provider on file. Pre- Hospital Patient Escorted by: Self [9] Mode of Arrival: EMS - [facility] ([facility]) [43] EMS Treatment Prior to ED Arrival: COLLEGE ADMISSIONS COUNSELOR treatment: Saline lock;IVF ED Events Date/Time Event User Comments 04/20/231943 Medical Screening Begins SERGIO APONTE MD -- 04/20/231943 First Provider Evaluation SERGIO APONTE MD -- Chief Complaint Chief Complaint Patient presents with High Blood Sugar ED Triage Notes Megan Madrigal RN 04/20/2023 19:52 Patient arrived to ED via [facility] c/o "not feeling well." FSBG 386 COLLEGE ADMISSIONS COUNSELOR. Per patient he was diagnosed with DM five years ago and stopped taking home meds-Metformin about three years ago. Patient c/o of being weak and increased UOP. Patient was nauseous COLLEGE ADMISSIONS COUNSELOR but has resolved since. HPI History provided [...] 0.01 - 0.09 10*3/uL COMP. METABOLIC PANEL (20672) - Abnormal NA 129 (*) 135 - [...] VW CBC WITH DIFF COMP. METABOLIC PANEL (82420) URINALYSIS URINE DRUG (IMMUNOASSAY) - COMPREHENSIVE DRUG SCREEN W/O REFLEX ETHANOL POCT GLUCOSE (AUTOMATED) Troponin I Prothrombin Time / INR aPTT aPTT (for use with Heparin Infusion) Ferritin Serum Iron Panel Troponin I Thyroid Stimulating Hormone Glycosylated Hemoglobin (A1C) Phosphorus Cbc with Diff Basic Metabolic Panel (NA, K, CL, CO2, GLUCOSE, BUN, CREATININE, CA) Magnesium Lipid Panel (58119)(Total Cholesterol, Triglycerides, HDL) O2 Per Protocol Orders [...] mg Procedures EKG Time 1950 Sinus tach [place] normal Intervals normal No acute ischemia Notes [...] demonstrates that he is having a silent NE. He has elevated troponin of 0.154. Please note he does not have any chest pain or shortness of breath. EKG does not demonstrate a STEMI. He was started on heparin, Plavix, and aspirin. The patient may require cardiac catheterization. The patient was transferred to [place] for further evaluation. History, physical exam findings, [...] this patient. Sergio Aponte Jr., MD Clinical Machine Presser [facility] Emergency Department [employer] Dictation Software is used frequently and may produce errors. Promptly contact for obvious discrepancies. Sergio Aponte MD 04/21/23 0025 [facility] EMERGENCY PHYSICIAN STAFF [facility]
[2024-07-13] MEDS ORDERED: KETOROLAC 30 MG/ML INJ ONE (10:25)
[2024-07-13] MEDS ORDERED: methocarbamoL 500 MG TAB ONE (10:25)
[2024-07-13 11:16] LABS: Absolute Basophils 0.1 K/uL (0-0.5); Absolute Eosinophils 0.1 K/uL (0-0.5); Absolute Lymphocytes (CBC) 1.3 K/uL (0.7-4.9); Absolute Monocytes 0.6 K/uL (0.1-1.3); Absolute Neutrophil 9.9 K/uL (1.8-8.0); Basophils % 1.1 % (0-1.3); Eosinophils % 0.9 % (0-4.4); Hematocrit 29.7 % (39.6-49.0); Hemoglobin 10.6 g/dL (13.6-17.9); Lymphocytes % 10.8 % (15.3-44.8); MCH 30.8 pg (27.0-35.0); MCHC 35.6 g/dL (32.0-36.0); MCV 86.6 fL (80-100); MPV 6.9 fL (7.6-11.3); Neutrophils % 82.2 % (41.7-73.7); Platelets 604 thou/uL (152-406); RBC Red Blood Cell Count 3.43 M/uL (4.33-5.43)
[2024-07-13 11:27] LABS: Anion Gap 9.4 mEq/L (5.0-15.0); Potassium 4.4 mEq/L (3.5-5.1)
--- NOTE | 2024-07-13 11:30 | ER ---
Nurse's Notes [facility] Name: Johnnie Maldonado Age: 58 yrs Sex: Male : 1965 Arrival Date: 07/13/2024 Time: 09:29 Bed 15 Private MD: Diagnosis: Fall on same level, unspecified;Pain in right hip Presentation: 07/13 10:04 Chief complaint: EMS states: Was walking to hospital and fell, c/o pain to R leg. ph Coronavirus screen: Vaccine status: Patient reports being unvaccinated. Ebola Screen: No symptoms or risks identified at this time. Initial Sepsis Screen: Does the patient meet any 2 criteria? No. Patient's initial sepsis screen is negative. Does the patient have a suspected source of infection? No. Patient's initial sepsis screen is negative. Risk Assessment: Do you want to hurt yourself or someone else? Patient reports no desire to harm self or others. Onset of symptoms was July 13, 2024. 10:04 Method Of Arrival: EMS: [facility] 10:04 Acuity: DONTE 3 ph Triage Assessment: 10:06 General: Appears in no apparent distress. Behavior is calm, cooperative. Pain: ph Complains of pain in right leg. Neuro: Level of Consciousness is awake, alert, obeys commands, Oriented to person, place, time, situation. Cardiovascular: Capillary refill < 3 seconds in bilateral fingers Patient's skin is warm and dry. Respiratory: Airway is patent Respiratory effort is even, unlabored, Respiratory pattern is regular, symmetrical. GI: No signs and/or symptoms were reported involving the gastrointestinal system. Derm: Skin is pink, warm \T\ dry. Historical: - Allergies: 10:05 No Known Allergies; ph - PMHx: 10:05 diabetes mellitus; Hypertensive disorder; raynaud's; Urinary incontinence; ph - PSHx: 10:05 right arm; ph - Immunization history:: Adult Immunizations unknown. - Infectious Disease History:: Denies. - Social history:: Smoking status: unknown. Screenin:07 [facility] ED Fall Risk Assessment (Adult) History of falling in the last 3 months, ph including since admission Yes- single mechanical fall (1 pt) Confusion or Disorientation No (0 pts) Intoxicated or Sedated No (0 pts) Impaired Gait No (0 pts) Mobility Assist Device Used No (0 pt) Altered Elimination No (0 pt) Score/Fall Risk Level 0 - 2 = Low Risk Oriented to surroundings, Maintained a safe environment, Hourly rounding (assess needs \T\ fall precautionary measures) done. Abuse screen: Denies threats or abuse. Denies injuries from another. Nutritional screening: No deficits noted. Tuberculosis screening: No symptoms or risk factors identified. Assessment: 10:30 General: SEE TRIAGE ASSESSMENT. ph Vital Signs: 10:04 BP 138 / 68; Pulse 99; Resp 18; Temp 97.8; Pulse Ox 99% on R/A; ph 11:00 BP 127 / 86; Pulse 87; Resp 18; Pulse Ox 97% on R/A; ph 12:00 BP 129 / 68; Pulse 87; Resp 18; Temp 97.8; Pulse Ox 98% on R/A; ph ED Course: : Patient arrived in ED. ec2 09:31 Adolfo Ford MD is Attending Physician. ec2 09:38 Tricia Pulliam RN is Primary Nurse. ph 10:05 Triage completed. ph 10:06 Arm band placed on Patient placed in an exam room, on a stretcher. ph 10:30 Patient has correct armband on for positive identification. Pulse ox on. NIBP on. ph 11:09 Inserted saline lock: 20 gauge in right antecubital area, using aseptic technique. ph Blood collected. Flushed with 10 mL NS. 11:09 Initial lab(s) drawn, by ED staff, sent to lab. ph 12:27 No provider procedures requiring assistance completed. IV discontinued, intact, ph bleeding controlled, No redness/swelling at site. Pressure dressing applied. Administered Medications: 11:27 Drug: Ketorolac IVP 15 mg IVP once Route: IVP; Site: left antecubital; ph 12:28 Follow up: Response: No adverse reaction ph 11:27 Drug: Methocarbamol PO 500 mg PO once Route: PO; ph 12:28 Follow up: Response: No adverse reaction ph Medication: 12:27 VIS not applicable for this client. ph Outcome: 11:30 Discharge ordered by . ec2 12:27 Discharged to home via wheelchair, ph 12:27 Condition: good 12:27 Discharge instructions given to patient, Instructed on discharge instructions, follow up and referral plans. Demonstrated understanding of instructions, follow-up care, 12:29 Patient left the ED. ph Signatures: Tricia Pulliam RN RN ph Adolfo Ford MD MD ec2
--- NOTE | 2024-07-13 11:30 | EDPHYS ---
Physician Documentation [facility] Name: Johnnie Maldonado Age: 58 yrs Sex: Male : 1965 Arrival Date: 07/13/2024 Time: 09:29 Bed 15 Private MD: ED Physician Adolfo Ford HPI: 07/13 09:34 This 58 yrs old Male presents to ER via Unassigned with complaints of GLF. ec2 09:34 Patient arrives today for evaluation for ground-level fall. Reports she has a history ec2 of chronic right hip pain, and a recent hip injection. Patient reports that he had a ground-level fall, no LOC, was able to brace himself, denies any chest pain, shortness of breath, abdominal pain, lightheadedness. Patient reports no head strike, no LOC, no blood thinners.. Historical: - Allergies: 10:05 No Known Allergies; ph - PMHx: 10:05 diabetes mellitus; Hypertensive disorder; raynaud's; Urinary incontinence; ph - PSHx: 10:05 right arm; ph - Immunization history:: Adult Immunizations unknown. - Infectious Disease History:: Denies. - Social history:: Smoking status: unknown. ROS: 09:34 Constitutional: as per hpi ec2 Exam: 09:34 Constitutional: GEN: No acute distress HEENT: -Head: no deformities -Eyes: EOMI CV: ec2 regular rate LUNGS: no respiratory distress ABD: non-tender SKIN: no wounds appreciated MSK: No C/T/L spine deformities RUE w/o bony deformity LUE w/o bony deformity RLE w/o bony deformity LLE w/o bony deformity NEURO: moves all extremities equally, GCS 15 (E4, V5, M6) Vital Signs: 10:04 BP 138 / 68; Pulse 99; Resp 18; Temp 97.8; Pulse Ox 99% on R/A; ph 11:00 BP 127 / 86; Pulse 87; Resp 18; Pulse Ox 97% on R/A; ph 12:00 BP 129 / 68; Pulse 87; Resp 18; Temp 97.8; Pulse Ox 98% on R/A; ph MDM: 09:31 Medical Screening Exam initiated ec2 09:34 Data reviewed: vital signs, nurses notes. ED course: Patient arrives today for ec2 evaluation after GLF. Examination yields well-appearing nontoxic individual is otherwise hemodynamically stable with reassuring examination. Will obtain basic lab work as the patient is concerned about his electrolytes given medications. Will forego any imaging such as CT scan of the head or C-spine given the patient's well appearance, lack of concerning features to his story/history. 11:29 ED course: Labs are nonactionable, on reassessment patient well-appearing no acute ec2 distress. Will discharge home. Return precautions given.. 07/13 09:34 Order name: CBC with Diff; Complete Time: 11:19 ec2 07/13 09:34 Order name: BMP; Complete Time: 11: ec2 07/13 09:34 Order name: IV; Complete Time: 11: ec2 Administered Medications: 11: Drug: Ketorolac IVP 15 mg IVP once Route: IVP; Site: left antecubital; ph 12:28 Follow up: Response: No adverse reaction ph 11:27 Drug: Methocarbamol PO 500 mg PO once Route: PO; ph 12:28 Follow up: Response: No adverse reaction ph Disposition Summary: 07/13/24 11:30 Discharge Ordered Notes: Location: Home ec2 Condition: Stable ec2 Diagnosis - Fall on same level, unspecified ec2 - Pain in right hip ec2 Followup: ec2 - With: Private Physician - When: - Reason: Re-evaluation by your physician Discharge Instructions: - Discharge Summary Sheet ec2 - Hip Pain ec2 Forms: - Medication Reconciliation Form ec2 - Antibiotic Education ec2 - Prescription Opioid Use ec2 - Patient Portal Instructions ec2 - Leadership Thank You Letter ec2 Signatures: Dispatcher [employer] Tricia Little, TYSHAWN RN ph Adolfo Ford MD MD ec2
[2024-07-13 12:36] VITALS: BP 129/68; TEMP 97.8; O2SAT 98
== END 2024-07-13 12:29 | disposition home or self-care (01) ==
LOC: ER 09:29
DX: M25.551 Pain in right hip (principal); W18.30XA Fall on same level, unspecified, initial encounter
CPT/HCPCS: 36415; 80048; 85025; 96374; 99284

== ENCOUNTER 2024-08-31 23:48 | Emergency (ER) | payer SELFPAY ==
--- OUTSIDE RECORDS SUMMARY | 2024-08-31 23:59 | XMS REPORT | Continuity of Care Document ---
Author Name Unknown Address [address] [facility] [address] [place] [address] [facility] [place] Address [address] [facility] [place] [address] Care Team Providers Care Secret Code Expert Name Role Phone Erik Louie Jr. Primary Care Physician + [phone] Doctor Unassigned, [place] Attending Clinician U Cosme Ward DO Attending Clinician [phone] Solo CHONG, Lyubov Hilton Attending Clinician [phone] Rosalie Irizarry RN Attending Clinician [phone] Miguel CHONG, Ricky Hoskins Attending Clinician + [phone] Umang Reynaga MD Attending Clinician [phone] Jerry Fields DO Attending Clinician [phone] Vimal Quiñones MD Attending Clinician [phone] Jeannette Dawn LVN Attending Clinician + [phone] PARVEZ MONROE Attending Clinician Unavailable Sergio Aponte MD Attending Clinician [phone] Bret Banda MD Attending Clinician [phone] Parvez Monroe MD Attending Clinician [phone] Lyubov Banda MD Admitting Clinician [phone] Jerry Fields DO Admitting Clinician [phone] PARVEZ MONROE Admitting Clinician Unavailable Parvez Monroe MD Admitting Clinician [phone] Problems Condition Name Condition Details Condition Category [...] Date Quantity Comments Source [facility] of Social function 2023-08-23 00:00:00 2023-08-23 00:00:00 [facility] Alcohol intake 2023-08-22 00:00:00 2023-08-22 00:00:00 Lifetime non-drinker (finding) [facility] Alcoholic beverage intake 2023-08-22 00:00:00 2023-08-22 00:00:00 Lifetime non-drinker (finding) [facility] Tobacco use and exposure 2023-04-21 00:00:2023-04-21 00:00:00 Smokeless tobacco non-user [facility] Sex assigned at 1965 00:00:00 1965 00:00:00 [facility] Smoking Status Start Date Stop Date Source Never smoked tobacco [facility] Medications Ordered Medication Name Filled Medication Name Start Date Stop Date Current Medication? Ordering Clinician Indication Dosage Frequency Signature (SIG) Comments Components Source acarbose 25 mg tablet 08-23 00:00: 00 Yes [id number] 25mg Take 1 tablet by mouth in the morning and 1 tablet at noon and 1 tablet in the evening. Take with meals. [facility] metFORMIN 500 mg 24 hr tablet 08-23 00:00: 09-23 04:59 :00 No [id number] 500mg Take 1 tablet by mouth in the morning and 1 tablet in the evening. Take with meals. Do all this for 30 days. [facility] amLODIPine 10 mg tablet 08-23 00:00: 09-23 04:59 :00 No [id number] 10mg Take 1 tablet by mouth in the morning for 30 days. [facility] tamsulosin 0.4 mg 24 hr capsule 08-23 00:00: 00 09-23 04:59 :00 No [id number] .4mg Take 1 capsule by mouth in the morning for 30 days. [facility] levoFLOXaci n 500 mg tablet 08-23 00:00: 08-26 04:59 :00 No [id number] 500mg Take 1 tablet by mouth every [...]
D uration of therapy: Once (ED) [facility] D5W IV infusion 1,000 [...] 2130, Until Wed08/24/23 at 1253, Routine [facility] D5W IV infusion 1,000 mL 08-21 21:30: 00 08-22 02:27 :22 No 1000mL at 100 mL/hr, IV Infusion, CONTINUOUS , Starting on Wed08/22/23 at 1630, Until Wed08/22/23 at 2127, Routine [facility] Sliding Scale Insulin - Lispro (HumaLOG) 08-21 21:00: 00 Yes Subcutaneo us, Q4H, First dose on Wed08/22/23 at 1600, Until Discontinu ed, Routine [facility] glucagon (GLUCAGEN DIAGNOSTIC KIT) [...] has mental status changes. [facility] D5W IV infusion 1,000 [...] 08-16 00:00: 00 08-23 00:00 :00 No [id number] 5mg Take 1 tablet by mouth in the morning for 30 days. [facility] lactulose (CEPHULAC) solution 45 mL 08-15 15:45: 00 08-15 15:21 :00 No 45mL 45 mL, Oral, ONCE, 1 dose, On Wed08/16/23 at 1045, Routine [facility] amLODIPine (NORVASC) tablet 5 mg 08-15 14:00: 00 Yes 5mg 5 mg, Oral, DAILY, First dose on Wed08/16/23 at 0900, Until Discontinu ed, Routine [facility] sennosides (SENOKOT) tablet 8.6 mg [...] 08-15 00:00: 00 08-23 00:00 :00 No [id number] 500mg Take 1 tablet by mouth in the morning and 1 tablet in the evening. Take with meals. Do all this for 30 days. [facility] acarbose 25 mg tablet 08-15 00:00: 00 08-23 00:00 :00 No [id number] 25mg Take 1 tablet by mouth in the morning and 1 tablet at noon and 1 tablet in the evening. Take with meals. Do all this for 30 days. [facility] pioglitazon e 15 mg tablet 08-15 00:00: 00 08-23 00:00 :00 No [id number] 15mg Take 1 tablet by mouth in the morning for 30 days. [facility] tamsulosin 0.4 mg 24 hr capsule 08-15 00:00: 00 08-23 00:00 :00 No [id number] .4mg Take 1 capsule by mouth in the morning for 30 days. [facility] losartan 25 mg tablet 08-15 00:00: 00 08-23 00:00 :00 No [id number] 25mg Take 1 tablet by mouth in [...] at 0900, Until Discontinu ed, Routine [facility] heparin (porcine) injection 5,000 Units 08-14 03:00: 00 08-14 06:07 :44 No 5000U 5,000 Units, Subcutaneo us, Q8H, First dose on 08/14/23 at 2200, Until Discontinu ed, Routine [facility] Sliding Scale Insulin - Lispro (HumaLOG) 08-14 02:00: 00 08-14 18:06 :14 No Subcutaneo us, TID MEALS+HS, First dose on 08/14/23 at 2100, Until Discontinu ed, Routine [facility] glucagon (GLUCAGEN DIAGNOSTIC KIT) injection 1 mg 08-14 00:36: 37 Yes 1mg 1 mg, Intramuscu lar, PRN, Starting on 08/14/23 at 1936, Until Discontinu ed, HAO, Blood Glucose < or = 70 mg/dL and patient is NPO, unable to swallow or has mental changes. [facility] dextrose 50 % in water (D50W) injection 25 mL 08-14 00:36: 37 Yes 25mL 25 mL, Slow IV Push, PRN, Starting on 08/14/23 at 1936, Until Discontinu ed, HAO, Blood Glucose < or = 70 mg/dL and patient is NPO, unable to swallow or has mental status changes. [facility] acetaminoph en (TYLENOL) tablet 650 mg 08-14 00:36: 24 Yes 650mg 650 mg, Oral, Q6HPRN, Starting on 08/14/23 at 1936, Until Discontinu ed, Routine, Pain (scale 1-3) [facility] aspirin chewable tablet 324 mg 08-13 23:15: 00 08-13 22:56 :00 No [id number] 324mg 324 mg, Oral, ONCE, 1 dose, On 08/14/23 at 1815, [facility] lidocaine 2% viscous (LIDOCAINE VISCOUS) 2 % solution 15 mL 08-13 23:00: 00 08-13 22:10 :00 No [id number] 15mL 15 mL, Oral, ONCE, 1 dose, On 08/14/23 at 1800, Routine [facility] KCL (KLOR-CON M20) tablet 20 mEq 08-13 22:30: 00 08-13 22:59 :00 No [id number] 20meq 20 mEq, Oral, ONCE, 1 dose, On 08/14/23 at 1730, [facility] metoprolol tartrate (LOPRESSOR) tablet 50 mg 08-13 22:00: 00 08-13 22:58 :00 No [id number] 50mg 50 mg, Oral, ONCE, 1 dose, On 08/14/23 at 1700, [facility] iopamidol (ISOVUE 370-500 mL) injection 80 mL 08-13 21:30: 00 08-13 21:45 :00 No [id number] 80mL 80 mL, Intravenou s, ONCE, 1 dose, On 08/14/23 at 1645, Routine [facility] acetaminoph en (TYLENOL) tablet 650 mg 08-13 21:15: 00 08-13 22:57 :00 No [id number] 650mg 650 mg, Oral, ONCE, 1 dose, On 08/14/23 at 1615, [facility] amLODIPine (NORVASC) tablet 5 mg 08-13 21:15: 00 08-13 22:58 :00 No [id number] 5mg 5 mg, Oral, ONCE, 1 dose, On 08/14/23 at 1615, [facility] NaCl 0.9% (NS) bolus infusion 1,000 mL 08-13 21:15: 00 08-13 21:50 :00 No [id number] 1000mL at 999 mL/hr, 1,000 mL, IV Infusion, ONCE, 1 dose, On 08/14/23 at 1615, HAO [facility] insulin NPH (HUMULIN N) injection 9 Units 2022-04 14:00: 00 Yes 9U 9 Units, Subcutaneo us, QAM WITH BREAKFAST, First dose (after last modificati on) on 04/24/23 at 0800, Until Discontinu ed, Routine [facility] losartan 25 mg tablet 2022-04 00:00: 00 08-15 00:00 :00 No [id number] 25mg Take 1 tablet by mouth in the morning. [facility] tamsulosin (FLOMAX) 0.4 mg 24 hr capsule 2022-04 00:00: 00 08-15 00:00 :00 No [id number] .4mg Take 1 capsule by mouth in the morning. [facility] metFORMIN 500 mg tablet 2022-04 00:00: 00 05-23 05:59 :00 No [id number] Take 1 tablet by mouth 2 (two) times daily with meals for 7 days, THEN 2 tablets 2 (two) times daily with meals for 21 days. [facility] insulin lispro (human) (HumaLOG U-100) injection 3 Units 2022-04 23:00: 00 Yes 3U 3 Units, Subcutaneo us, TID MEALS, First dose (after last modificati on) on Wed04/23/23 at 1700, Until Discontinu ed, Routine [facility] insulin NPH (HUMULIN N) injection 5 Units 2022-04 23:00: 00 Yes 5U 5 Units, Subcutaneo us, QPM, First dose (after last modificati on) on Wed04/23/23 at 1700, Until Discontinu ed, Routine [facility] losartan (COZAAR) tablet 25 mg 2022-04 15:00: 00 Yes 25mg 25 mg, Oral, DAILY, First dose on Wed04/23/23 at 0900, Until Discontinu ed, Routine [facility] Potassium Bicarb-Citr ic Acid [...] Blood-Gluco se Meter (ACCU-CHEK GUIDE GLUCOSE METER) [facility] 2022-04 00:00: 00 Yes [id number] Use as directed [facility] lancets 33 gauge [facility] 2022-04 00:00: 00 Yes [id number] Use as directed [facility] blood sugar diagnostic (ACCU-CHEK GUIDE TEST STRIPS) strip 2022-04 00:00: 00 Yes [id number] Use as directed [facility] pioglitazon e 15 mg tablet 2022-04 00:00: 00 08-15 00:00 :00 No [id number] 7.5mg Take 0.5 tablets by mouth in the morning. [facility] acarbose 25 mg tablet 2022-04 00:00: 00 08-15 00:00 :00 No [id number] 25mg Take 1 tablet by mouth in the morning and 1 tablet at noon and 1 tablet in the evening. Take with meals. [facility] atorvastati n 80 mg tablet 2022-04 00:00: 00 05-24 05:59 :00 No [id number] 80mg Take 1 tablet by mouth at bedtime for 30 days. [facility] glipiZIDE 5 mg tablet 2022-04 00:00: 00 05-24 05:59 :00 No [id number] 5mg Take 1 tablet by mouth 2 (two) times daily before breakfast and dinner for 30 days. [facility] enoxaparin (LOVENOX) injection 40 mg 2022-04 15:00: 00 Yes 40mg 40 mg, Subcutaneo us, DAILY, First dose on Wed04/22/23 at 0900, Until Discontinu ed, Routine [facility] insulin NPH (HUMULIN N) [...] at 1700, Until Discontinu ed, Routine [facility] insulin lispro (human) (HumaLOG U-100) injection 2 Units 2022-04 23:00: 00 04-23 19:10 :37 No 2U 2 Units, Subcutaneo us, TID MEALS, First dose (after last modificati on) on Wed04/21/23 at 1700, Until Discontinu ed, Routine [facility] NaCl 0.9% (NS) IV infusion 250 mL 2022-04 21:15: 00 04-22 20:03 :10 No [id number] 250mL at 20 mL/hr, IV Infusion, CONTINUOUS , Starting on Wed04/21/23 at 1515, Until Wed04/22/23 at 1403, Routine
To keep vein open
[facility] perflutren lipid microsphere s (DEFINITY) injection 2 mL 2022-04 21:00: 00 04-21 20:15 :00 No [id number] 2mL 2 mL, IV Push, ONCE, 1 dose, On Wed04/21/23 at 1500, Routine [facility] atropine injection 1 mg 2022-04 21:00: 00 04-21 20:44 :00 No [id number] 1mg 1 mg, Slow IV Push, ONCE, 1 dose, On Wed04/21/23 at 1500, Routine [facility] DOBUTamine (DOBUTREX) 250 mg/250 mL RTU infusion 2022-04 20:13: 51 04-22 20:03 :10 No [id number] 5ug/kg/ min 5 mcg/kg/min ?59 kg (17.7 [...] 2022-04 17:15: 00 04-21 15:22 :00 No [id number] 3mL 3 mL, IV Push, ONCE, 1 [...] Discontinu ed, Routine [facility] aspirin tablet 325 mg 2022-04 [...] [facility] insulin glargine (LANTUS U-100) injection 9 Units [...] Routine, Pain (scale 1-3) [facility] NaCl 0.9% (NS) bolus infusion 1,000 mL 2022-04 04:00: 00 04-21 03:45 :00 No 1000mL at 999 mL/hr, 1,000 mL, IV Infusion, ONCE, 1 dose, On Wed04/20/23 at 2200, STAT [facility] clopidogreL (PLAVIX) 300 mg tablet [...] 1 dose, On Wed04/20/23 at 204, HAO [facility] heparin 25,000 Units/250 [...] Rang e, Dosing and Testing: &nbs p;FOR [facility], AND [facility] ONLY &nbs p; - aPTT [...] INITIAL BOLUS OR INITIAL INFUSION RATE.
[facility] Vital Signs Vital Name Observation Time Observation Value Comments S ource Systolic blood pressure 2023-08-24 13:02:00 150 mm[Hg] [facility] Diastolic blood pressure 2023-08-24 13:02:00 88 mm[Hg] [facility] Heart rate 2023-08-24 13:02:00 79 /min [facility] Body temperature 2023-08-24 13:02:00 36.44 Deya [facility] Respiratory rate 2023-08-24 13:02:00 14 /min [facility] Oxygen saturation in Arterial blood by Pulse oximetry 2023-08-24 13:02:00 98 /min [facility] Body weight 2023-08-24 08:43:00 58.469 kg [facility] BMI 2023-08-24 08:43:00 22.83 kg/m2 [facility] Body height 2023-08-22 04:52:00 160 cm [facility] Systolic blood pressure 2023-08-16 16:53:00 154 mm[Hg] [facility] Diastolic blood pressure 2023-08-16 16:53:00 94 mm[Hg] [facility] Heart rate 2023-08-16 16:53:00 82 /min [facility] Body temperature 2023-08-16 16:53:00 36.61 Deya [facility] Respiratory rate 2023-08-16 16:53:00 16 /min [facility] Oxygen saturation in Arterial blood by Pulse oximetry 2023-08-16 16:53:00 99 /min [facility] Body weight 2023-08-16 09:56:00 56.473 kg [facility] BMI 2023-08-16 09:56:00 22.05 kg/m2 [facility] Body height 2023-08-15 04:07:00 160 cm [facility] Systolic blood pressure 2023-04-23 18:11:00 141 mm[Hg] [facility] Diastolic blood pressure 2023-04-23 18:11:00 80 mm[Hg] [facility] Heart rate 2023-04-23 18:11:00 101 /min [facility] Body temperature 2023-04-23 18:11:00 35.89 Deya [facility] Respiratory rate 2023-04-23 18:11:00 18 /min [facility] Oxygen saturation in Arterial blood by Pulse oximetry 2023-04-23 18:11:00 98 /min [facility] Body weight 2023-04-22 09:57:00 57.561 kg [facility] BMI 2023-04-22 09:57:00 22.48 kg/m2 [facility] Body height 2023-04-21 20:00:00 160 cm [facility] Procedures Procedure Date / Time Performed Performing Clinician Source PATIENT AGREEMENTS AND CONTRACTS 2023-11-12 20:14:31 Doctor Unassigned, [place] [facility] POCT GLUCOSE (AUTOMATED) 2023-08-24 16:13:00 Jami Banda [facility] POCT GLUCOSE (AUTOMATED) 2023-08-24 12:34:00 Jami Banda [facility] BASIC METABOLIC PANEL (NA, K, CL, CO2, GLUCOSE, BUN, CREATININE, CA) 2023-08-24 08:42:00 Jerry Fields [facility] CBC WITH DIFF 2023-08-24 08:42:00 Jerry Fields [facility] POCT GLUCOSE (AUTOMATED) 2023-08-24 05:46:00 Jami Banda [facility] BASIC METABOLIC PANEL (NA, K, CL, CO2, GLUCOSE, BUN, CREATININE, CA) 2023-08-24 01:37:00 Jerry Fields [facility] POCT GLUCOSE (AUTOMATED) 2023-08-24 01:27:00 Jami Banda [facility] POCT GLUCOSE (AUTOMATED) 2023-08-23 21:29:00 Jami Banda [facility] BASIC METABOLIC PANEL (NA, K, CL, CO2, GLUCOSE, BUN, CREATININE, CA) 2023-08-23 17:41:00 Jerry Fields [facility] POCT GLUCOSE (AUTOMATED) 2023-08-23 16:42:00 Jami Banda [facility] POCT GLUCOSE (AUTOMATED) 2023-08-23 12:36:00 Jami Banda [facility] POCT GLUCOSE (AUTOMATED) 2023-08-23 09:09:00 Jami Banda. [facility] MAGNESIUM 2023-08-23 08:23:00 Jerry Fields [facility] BASIC METABOLIC PANEL (NA, K, CL, CO2, GLUCOSE, BUN, CREATININE, CA) 2023-08-23 08:23:00 Jerry Fields [facility] CBC WITH DIFF 2023-08-23 08:23:00 Donnie, Jerry [facility] POCT GLUCOSE (AUTOMATED) 2023-08-23 04:52:00 Jami Banda [facility] POCT GLUCOSE (AUTOMATED) 2023-08-23 00:42:00 Jami Banda [facility] BASIC METABOLIC PANEL (NA, K, CL, CO2, GLUCOSE, BUN, CREATININE, CA) 2023-08-23 00:38:00 Jerry Fields [facility] POCT GLUCOSE (AUTOMATED) 2023-08-22 21:18:00 Jami Banda [facility] URIC ACID 2023-08-22 19:21:00 Alyssa Cain [facility] PROTEIN CREAT RATIO URINE RANDOM 2023-08-22 19:21:00 Alyssa Cain [facility] CORTISOL AM 2023-08-22 19:20:00 Alyssa Cain [facility] BASIC METABOLIC PANEL (NA, K, CL, CO2, GLUCOSE, BUN, CREATININE, CA) 2023-08-22 13:21:00 Lyubov Banda [facility] LACTIC ACID WHOLE BLOOD 2023-08-22 09:16:00 Loreta Banda mmad [facility] MAGNESIUM 2023-08-22 08:30:00 Lyubov Banda [facility] TROPONIN I 2023-08-22 08:30:00 Lyubov Banda [facility] CBC WITH DIFF 2023-08-22 08:30:00 [facility] 2023-08-22 08:30:00 Lyubov Banda [facility] PHOSPHORUS 2023-08-22 04:01:00 Lyubov Banda [facility] BASIC METABOLIC PANEL (NA, K, CL, CO2, GLUCOSE, BUN, CREATININE, CA) 2023-08-22 04:01:00 Cosme Cardona [facility] URINALYSIS 2023-08-22 01:52:00 Cardona, [facility] CT ABDOMEN PELVIS WO CONTRAST 2023-08-22 01:26:17 Singer [facility] CREATINE KINASE 2023-08-22 01:24:00 Lyubov Banda [facility] LIPASE 2023-08-22 01:24:00 Singer [facility] COMP. METABOLIC PANEL ([id number]) 2023-08-22 01:24:00 Singer [facility] CBC WITH DIFF 2023-08-22 01:24:00 Singer [facility] POCT GLUCOSE (AUTOMATED) 2023-08-16 21:51:00 Yue Fields [facility] POCT GLUCOSE (AUTOMATED) 2023-08-16 16:54:00 Yue Fields [facility] POCT GLUCOSE (AUTOMATED) 2023-08-16 12:45:00 Yue Fields [facility] POCT GLUCOSE (AUTOMATED) 2023-08-16 02:06:00 Yue Fields [facility] POCT GLUCOSE (AUTOMATED) 2023-08-15 21:29:00 Yue Fields [facility] POCT GLUCOSE (AUTOMATED) 2023-08-15 16:39:00 Yue Fields [facility] POCT GLUCOSE (AUTOMATED) 2023-08-15 13:08:00 Yue Fields [facility] TROPONIN I 2023-08-15 10:41:00 [facility] BASIC METABOLIC PANEL (NA, K, CL, CO2, GLUCOSE, BUN, CREATININE, CA) 2023-08-15 10:41:00 Shanice [facility] CBC WITH DIFF 2023-08-15 10:41:00 Shanice [facility] PROSTATIC SPECIFIC ANTIGEN 2023-08-15 05:32:00 Shanice [facility] TROPONIN I 2023-08-15 05:32:00 Shanice [facility] POCT GLUCOSE (AUTOMATED) 2023-08-15 04:03:00 Yue Fields [facility] URINALYSIS 2023 22:15:00 Rosmery [facility] XR CHEST 1 VW 2023 21:46:00 Rosmery [facility] CT ABDOMEN PELVIS W CONTRAST 2023 21:34:[address] [facility] CT TRAUMA HEAD WO CONTRAST 2023 21:33:[address] [facility] HB ECG ROUTINE & RHYTHM STRIP 2023 21:10:[address] [facility] PHOSPHORUS 2023 20:47:00 Rosmery [facility] CREATINE KINASE 2023 20:47:00 [facility] LIPASE 2023 20:47:00 Rosmery [facility] MAGNESIUM 2023 20:47:00 Rosmery [facility] BETA HYDROXY-BUTYRATE 2023 20:47:00 Farida Reynaga [facility] TROPONIN I 2023 20:47:00 Rosmery [facility] COMP. METABOLIC PANEL ([id number]) 2023 20:47:[address] [facility] CBC WITH DIFF 2023 20:47:00 Rosmery [facility] GLYCOSYLATED HEMOGLOBIN (A1C) 2023 20:47:00 Jerry Fields [facility] N-TERMINAL PRO-BNP 2023 20:47:00 Michael Reynaga [facility] ACUTE CARE VENOUS BLOOD GAS 2023 20:46:[address] [facility] LACTIC ACID WHOLE BLOOD 2023 20:46:00 Kian Reynaga [facility] POCT GLUCOSE(AGE >30DAYS) 2023 20:26:[address] [facility] POCT GLUCOSE (AUTOMATED) 2023 20:23:00 Dalmedo, [facility] POCT GLUCOSE (AUTOMATED) 2023-04-23 18:09:00 Brien Banda [facility] POCT GLUCOSE (AUTOMATED) 2023-04-23 15:32:00 Brien Banda [facility] MAGNESIUM 2023-04-23 09:09:00 Chet Echavarria [facility] BASIC METABOLIC PANEL (NA, K, CL, CO2, GLUCOSE, BUN, CREATININE, CA) 2023-04-23 09:09:00 Chet Echavarria [facility] POCT GLUCOSE (AUTOMATED) 2023-04-23 02:56[facility] 2023-04-23 00:32:00 Solo [facility] POCT GLUCOSE (AUTOMATED) 2023-04-22 22:43:00 Solo [facility] POCT GLUCOSE (AUTOMATED) 2023-04-22 20:36:00 Solo [facility] POCT GLUCOSE (AUTOMATED) 2023-04-22 17:44:00 Solo [facility] POCT GLUCOSE (AUTOMATED) 2023-04-22 13:41:00 Solo [facility] MAGNESIUM 2023-04-22 10:37:00 Daja Aaliyah [facility] BASIC METABOLIC PANEL (NA, K, CL, CO2, GLUCOSE, BUN, CREATININE, CA) 2023-04-22 10:37:00 Aaliyah Farnsworth [facility] CBC WITH DIFF 2023-04-22 10:37:00 Daja Aaliyah [facility] POCT GLUCOSE (AUTOMATED) 2023-04-22 03:32:00 Solo [facility] POCT GLUCOSE (AUTOMATED) 2023-04-22 01:34:00 Solo [facility] COMPLETE ECHOCARDIOGRAM DOBUTAMINE STRESS TEST W CONTRAST 2023-04-21 21:15:00 [facility] 2023-04-21 17:36:00 Banda, [facility] ACTIVATED PARTIAL THRMPLAS JERMAINE 2023-04-21 16:47:00 Sergio Aponte [facility] TRANSTHORACIC ECHO (TTE) COMPLETE W/ CONTRAST 2023-04-21 15:26:00 Kylie Fuchs Noel [facility] TROPONIN I 2023-04-21 12:39:00 Víctor Fuchs ampayue [facility] POCT GLUCOSE (AUTOMATED) 2023-04-21 09:39:00 Brien Banda [facility] MAGNESIUM 2023-04-21 09:10:00 Víctor Fuchs [place] [facility] BASIC METABOLIC PANEL (NA, K, CL, CO2, GLUCOSE, BUN, CREATININE, CA) 2023-04-21 09:10:00 Tavia Fuchsmad [facility] LIPID PANEL ([id number])(TOTAL CHOLESTEROL, TRIGLYCERIDES, HDL) 2023-04-21 09:10:00 Tavia Fuchsmad [facility] CBC WITH DIFF 2023-04-21 09:10:00 Víctor Fuchs [place] [facility] ACTIVATED PARTIAL THRMPLAS JERMAINE 2023-04-21 09:10:00 Sergio Aponte [facility] XR CHEST 1 VW 2023-04-21 06:53:47 Víctor Fuchs ampayue [facility] TROPONIN I 2023-04-21 06:32:00 Víctor Fuchs [place] [facility] IRON PANEL 2023-04-21 06:32:00 Víctor Fuchs [place] [facility] N-TERMINAL PRO-BNP 2023-04-21 06:32:00 Kylie Fuchs [facility] CRITICAL CARE 2023-04-21 02:54:15 Sergio Aponte [facility] PROTHROMBIN TIME / INR 2023-04-21 02:44:00 Enrique Aponte [facility] ACTIVATED PARTIAL THRMPLAS JERMAINE 2023-04-21 02:44:00 Sergio Aponte [facility] URINALYSIS 2023-04-21 02:33:00 [facility] PROTEIN CREAT RATIO URINE RANDOM 2023-04-21 02:33:00 Kylie Fuchs [facility] URINE DRUG (IMMUNOASSAY) - COMPREHENSIVE DRUG SCREEN W/O REFLEX 2023-04-21 02:33:00 Sergio Aponte [facility] PHOSPHORUS 2023-04-21 01:55:00 Víctor Fuchs Noel [facility] FERRITIN SERUM 2023-04-21 01:55:00 Víctor Fuchs [place] [facility] TROPONIN I 2023-04-21 01:55:00 [facility] THYROID STIMULATING HORMONE 2023-04-21 01:55:00 Kylie Fuchs Noel [facility] COMP. METABOLIC PANEL ([id number]) 2023-04-21 01:55:00 Sergio Aponte [facility] ETHANOL 2023-04-21 01:55:00 Sergio Aponte [facility] CBC WITH DIFF 2023-04-21 01:55:00 Sergio Aponte [facility] GLYCOSYLATED HEMOGLOBIN (A1C) 2023-04-21 01:55:00 Kylie Fuchs Noel [facility] POCT GLUCOSE (AUTOMATED) 2023-04-21 01:54:00 Yue Aponte [facility] EKG-12 LEAD 2023-04-21 01:51:41 Bret Banda [facility] Encounters Start Date/Time End Date/Time Encounter Type Admission Type Attending Clinicians Care Facility Care Department Encounter ID Source 2023-11-12 00:00:00 2024-06-10 07:16:20 Orders Only Doctor Unassigned, [place] Doctor Unassigned, [place] [facility] 1.2.840.114 350.1.13.10 4.2.7.2.686 [id number] [facility] 2023-08-21 19:47:00 2023-08-24 16:32:00 Hospital Encounter Cosme Cardona Mohammad A. [facility] 1.2840.114 350.1.13.10 4.2.7.2.686 [id number] [facility] 2023-08-20 00:00:00 2023-08-20 00:00:00 Patient Outreach Rosalie Irizarry LYNN BAEZ 1.2840.114 350.1.13.10 4.2.7.2.686 [id number] [facility] 2023-08-17 00:00:00 2023-08-17 00:00:00 Telephone Ricky Rivera [facility] 1.0.114 350.1.13.10 4.2.7.2.686 [id number] [facility] 2023 14:42:00 2023-08-16 18:40:00 Hospital Encounter Umang Reynaga David Oville, Jelani [facility] 1.0.114 350.1.13.10 4.2.7.2.686 [id number] [facility] 2023-04-27 00:00:00 2023-04-27 00:00:00 Transition of Care López Jeannette LYNN BAEZ 1.840.114 350.1.13.10 4.2.7.2.686 [id number] [facility] 2023-04-20 19:48:00 2023-04-23 19:54:00 Inpatient PARVEZ NUNEZ [facility] [id number] [facility] 2023-04-20 19:48:00 2023-04-23 19:54:00 Hospital Encounter Sergio Aponte Rizwan Dacso, Matthew M [facility] 1.840.114 350.1.13.10 4.2.7.2.686 [id number] [facility] Results Test Description Test Time Test Comments Results Resul t Comments Source PATIENT AGREEMENTS AND CONTRACTS 2023-11-12 20:14:31 Ordered by an unspecified provider. [facility] 12:35:27* Test Item Value Reference Range Interpretation Comme nts POCT GLU (test code = 4967357485) 204 mg/dL 70-110 H Lab Interpretation (test cod e = 97147-5) Abnormal [facility] Metabolic Panel (NA, K, CL, CO2, GLUCOSE, BUN, CREATININE, CA)2023-08-24 09:45:39* Test Item Value Reference Range Interpretation Comme nts NA (test code = 7867095247) 133 mmol/L 135-145 L K (test code = 9068721266) 3.7 mmol/L 3.5-5.0 CL (test code = 8386282876) 98 mmol/L 98-108 CO2 TOTAL (test code = 2824241152) 27 mmol/L 23-31 AGAP (test code = 5637705540) 8 2-16 BUN (test code = 0574229006) 13 mg/dL 7-23 GLUCOSE (test code = 2524292731) 188 mg/dL 70-110 H CREATININE (test code = 2160-0) 0.63 mg/dL 0.60-1.25 CALCIUM (test code = 9198832515) 9.4 mg/dL 8.6-10.6 eGFR (test code = 02966-7) 111.6 mL/min/1.73m2 CKD-EPI eGFR (2020). Assuming creatinine has been stable day-to-day for at least three months, the eGFR indicates Category G1 (>= 90 mL/min/1.73 m2) Lab Interpretation (test code = 27933-7) [facility] with [id number] 09:21:26* Test Item Value Reference Range Interpretation [...] g/dL 31.2-35.0 H RDW-SD (test code = 51372-6) 36.9 fL 38.5-51.6 L RDW-CV (test code = 788-0) 11.6 % 12.1-15.4 L PLT (test code = 777-3) 407 150-328 H MPV (test code = 92716-0) 9.5 fL 9.8-13.0 L NRBC/100 WBC (test code = 1608586065) 0.0 0.0-10.0 NRBC x10^3 (test code = 5237152840) See_Comment [Automated messa ge] The system which generated this result transmitted reference range: 10*3/?L. The reference range was not used to interpret this result as normal/abnormal. GRAN MAT (NEUT) % (test code = 770-8) 63.1 % IMM GRAN % (test code = 3689986347) 0.30 % LYMPH % (test code = 736-9) 21.1 % MONO % (test code = 5905-5) 8.3 % EOS % (test code = 713-8) 6.5 % BASO % (test code = 706-2) 0.7 % GRAN MAT x10^3(ANC) (test code = 2065104009) 3.71 10*3/uL 1.99-6.95 IMM GRAN x10^3 (test code = 2241963890) 0.00-0.06 LYMPH x10^3 (test code = 731-0) 1.24 10*3/uL 1.09-3.23 MONO x10^3 (test code = 742-7) 0.49 10*3/uL 0.36-1.02 EOS x10^3 (test code = 711-2) 0.38 10*3/uL 0.06-0.53 BASO x10^3 (test code = 704-7) 0.04 10*3/uL 0.01-0.09 Lab Interpretation (test code = 73841-7) Abnormal [facility] GLUCOSE (AUTOMATED)2023-08-24 05:47:46* Test Item Value Reference Range Interpretation Comme [facility] POCT GLU (test code = 5202860044) 126 mg/dL 70-110 H Lab Interpretation (test cod e = 07181-1) Abnormal [facility] Metabolic Panel (NA, K, CL, CO2, GLUCOSE, BUN, CREATININE, CA)2023-08-24 02:27:27* Test Item Value Reference Range Interpretation Comme nts NA (test code = 2512323820) 129 mmol/L 135-145 L K (test code = 8307914394) 3.9 mmol/L 3.5-5.0 CL (test code = 3958836160) 96 mmol/L 98-108 L CO2 TOTAL (test code = 4625696922) 29 mmol/L 23-31 AGAP (test code = 5671919512) 4 2-16 BUN (test code = 2174246620) 14 mg/dL 7-23 GLUCOSE (test code = 8841929784) 185 mg/dL 70-110 H CREATININE (test code = 2160-0) 0.56 mg/dL 0.60-1.25 L CALCIUM (test code = 6679364031) 9.2 mg/dL 8.6-10.6 eGFR (test code = 31903-7) 115.7 mL/min/1.73m2 CKD-EPI eGFR (2020). Assuming creatinine has been stable day-to-day for at least three months, the eGFR indicates Category G1 (>= 90 mL/min/1.73 m2) Lab Interpretation (test code = 61174-8) Abnormal [facility] GLUCOSE (AUTOMATED)2023-08-24 01:28:28* Test Item Value Reference Range Interpretation Comme [facility] POCT GLU (test code = 3783888598) 210 mg/dL 70-110 H Lab Interpretation (test cod e = 58761-4) Abnormal [facility] GLUCOSE (AUTOMATED)2023-08-23 21:30:04* Test Item Value Reference Range Interpretation Comme nts POCT GLU (test code = 5049814348) 149 mg/dL 70-110 H Lab Interpretation (test cod e = 89275-3) Abnormal [facility] GLUCOSE (AUTOMATED)2023-08-23 16:45:20* Test Item Value Reference Range Interpretation Comme nts POCT GLU (test code = 1487592850) 147 mg/dL 70-110 H Lab Interpretation (test cod e = 67218-3) Abnormal [facility] GLUCOSE (AUTOMATED)2023-08-23 12:36:56* Test Item Value Reference Range Interpretation Comme nts POCT GLU (test code = 3111876328) 131 mg/dL 70-110 H Lab Interpretation (test cod e = 55882-9) Abnormal [facility] GLUCOSE (AUTOMATED)2023-08-23 09:17:23* Test Item Value Reference Range Interpretation Comme nts POCT GLU (test code = 1074126095) 154 mg/dL 70-110 H Lab Interpretation (test cod e = 08455-0) Abnormal [facility] GLUCOSE (AUTOMATED)2023-08-23 05:03:01* Test Item Value Reference Range Interpretation Comme nts POCT GLU (test code = 1859379083) 183 mg/dL 70-110 H Lab Interpretation (test cod e = 99947-9) Abnormal [facility] Metabolic Panel (NA, K, CL, CO2, GLUCOSE, BUN, CREATININE, CA)2023-08-23 01:49:58* Test Item Value Reference Range Interpretation Comme nts NA (test code = 0311507663) 132 mmol/L 135-145 L K (test code = 3285870841) 4.1 mmol/L 3.5-5.0 CL (test code = 3729568671) 101 mmol/L 98-108 CO2 TOTAL (test code = 5504122328) 28 mmol/L 23-31 AGAP (test code = 0649807754) 3 2-16 BUN (test code = 4602533273) 17 mg/dL 7-23 GLUCOSE (test code = 1420639991) 149 mg/dL 70-110 H CREATININE (test code = 2160-0) 0.97 mg/dL 0.60-1.25 CALCIUM (test code = 2971200848) 8.4 mg/dL 8.6-10.6 L eGFR (test code = 06720-3) 91.6 mL/min/1.73m2 CKD-EPI eGFR (2020). Assuming creatinine has been stable day-to-day for at least three months, the eGFR indicates Category G1 (>= 90 mL/min/1.73 m2) Lab Interpretation (test code = 76082-5) Abnormal [facility] GLUCOSE (AUTOMATED)2023-08-23 00:43:06* Test Item Value Reference Range Interpretation Comme [facility] POCT GLU (test code = 7369220291) 126 mg/dL 70-110 H Lab Interpretation (test cod e = 44661-4) Abnormal [facility] HospitalCortisol [id number] 22:59:03* Test Item Value Reference Range Interpretation Comme [facility] IBRAHIMA AM (test code = 7505745806) 24.7 ug/dL 4.5-23.0 H GINA (test code = GINA) Biotin has been reported to cause a positive bias, interpret results relative to patient's use of biotin. Lab Interpretation (test code = 72755-3) Abnormal [facility] GLUCOSE (AUTOMATED)2023-08-22 21:29:10* Test Item Value Reference Range Interpretation Comme [facility] POCT GLU (test code = 2158912101) 341 mg/dL 70-110 H Lab Interpretation (test cod e = 82793-5) Abnormal [facility] HospitalUric Nmiw5599-44-78 19:53:59* Test Item Value Reference Range Interpretation Comme [facility] URIC ACID (test code = 3117527561) 6.4 mg/dL 3.6-8.0 Lab Interpretation (test cod e = 87545-8) Normal [facility] Metabolic [facility] (NA, K, CL, CO2, GLUCOSE, BUN, CREATININE, CA)2023-08-22 14:43:15* Test Item Value Reference Range Interpretation Comme nts NA (test code = 2496275530) 138 mmol/L 135-145 K (test code = 5076763516) 4.6 mmol/L 3.5-5.0 CL (test code = 5912706226) 102 mmol/L 98-108 CO2 TOTAL (test code = 9566841063) 28 mmol/L 23-31 AGAP (test code = 9724326433) 8 2-16 BUN (test code = 5614720899) 34 mg/dL 7-23 H GLUCOSE (test code = 8473154530) 224 mg/dL 70-110 H CREATININE (test code = 2160-0) 1.89 mg/dL 0.60-1.25 H CALCIUM (test code = 9549801429) 9.4 mg/dL 8.6-10.6 eGFR (test code = 59861-1) 41.1 mL/min/1.73m2 CKD-EPI eGFR (2020). Assuming creatinine has been stable day-to-day for at least three months, the eGFR indicates Category G3b (30 - 44 mL/min/1.73 m2) Lab Interpretation (test code = 83956-9) Abnormal [facility] Hospital[facility]ine Bdbydj0850-63-24 14:42:45* Test Item Value Reference Range Interpretation Comme nts CK (test code = 1368803725) 224 U/L 33-194 H Lab Interpretation (test cod e = 85212-0) Abnormal [facility] HospitalPhosphorus Qudyj3424-70-37 12:10:01* Test Item Value Reference Range Interpretation Comme nts PHOSPHORUS (test code = 5489769728) 5.8 mg/dL 2.5-5.0 H Lab Interpretation (test cod e = 11305-4) [facility] (NA, K, CL, CO2, GLUCOSE, BUN, CREATININE, CA)2023-08-22 04:41:19* Test Item Value Reference Range Interpretation Comme nts NA (test code = 5543995047) 124 mmol/L 135-145 L K (test code = 1233036584) 4.7 mmol/L 3.5-5.0 CL (test code = 8743945516) 93 mmol/L 98-108 L CO2 TOTAL (test code = 2110974274) 18 mmol/L 23-31 L AGAP (test code = 1940342224) 13 2-16 BUN (test code = 6352329202) 68 mg/dL 7-23 H GLUCOSE (test code = 7730921105) 116 mg/dL 70-110 H CREATININE (test code = 2160-0) 6.60 mg/dL 0.60-1.25 H CALCIUM (test code = 2039380267) 9.0 mg/dL 8.6-10.6 eGFR (test code = 47348-1) 9.2 mL/min/1.73m2 CKD-EPI eGFR (2020). Assuming creatinine has been stable day-to-day for at least three months, the eGFR indicates Category G5 (<= 14mL/min/1.73 m2) Lab Interpretation (test code = 49908-8) [facility]normal [facility] P[facility] WO [id number] 02:22:05Exam: CT Abdomen and Pelvis without Contrast, [...] osseous finding. Subacute/chronic left-sided rib fractures.Soft tissues: Unremarkable.[facility] HospitalComp. Metabolic Panel (12079) 2023-08-22 02:21:33* Test Item Value Reference Range Interpretation Comme nts NA (test code = 2588256028) 120 mmol/L 135-145 L K (test code = 7417183544) 4.8 mmol/L 3.5-5.0 CL (test code = 7757318515) 85 mmol/L 98-108 L CO2 TOTAL (test code = 4726138561) 21 mmol/L 23-31 L AGAP (test code = 7420565510) 14 2-16 BUN (test code = 6112874294) 70 mg/dL 7-23 H GLUCOSE (test code = 6929047209) 97 mg/dL 70-110 CREATININE (test code = 2160-0) 8.39 mg/dL 0.60-1.25 H TOTAL BILI (test code = 1600099940) 0.7 mg/dL 0.1-1.1 CALCIUM (test code = 3207775047) 8.8 mg/dL 8.6-10.6 T PROTEIN (test code = 3595602156) 7.2 g/dL 6.3-8.2 ALBUMIN (test code = 8821332131) 4.1 g/dL 3.5-5.0 ALK PHOS (test code = 9828603260) 95 U/L 34-122 ALTv (test code = 1742-6) 12 U/L 5-50 AST(SGOT) (test code = 1217334492) 24 U/L 13-40 eGFR (test code = 68075-1) 6.9 mL/min/1.73m2 CKD-EPI eGFR (2020). Assuming creatinine has been stable day-to-day for at least three months, the eGFR indicates Category G5 (<= 14mL/min/1.73 m2) Lab Interpretation (test code = 43497-5) Abnormal [facility] HospitalLipase2024-04-28 02:15:32* Test Item Value Reference Range Interpretation Comme nts LIPASE (test code = 5321699630) 758 U/L 0-220 H Lab Interpretation (test cod e = 01679-5) Abnormal [facility] HospitalCbc with [id number] 01:58:31* Test Item Value Reference Range Interpretation [...] g/dL 31.2-35.0 H RDW-SD (test code = 21236-9) 36.0 fL 38.5-51.6 L RDW-CV (test code = 788-0) 11.5 % 12.1-15.4 L PLT (test code = 777-3) 312 150-328 MPV (test code = 41517-8) 9.4 fL 9.8-13.0 L NRBC/100 WBC (test code = 2616060622) 0.0 0.0-10.0 NRBC x10^3 (test code = 1049529130) See_Comment [Automated message] The system which generated this result transmitted reference range: 10*3/?L. The reference range was not used to interpret this result as normal/abnormal. GRAN MAT (NEUT) % (test code = 770-8) 82.7 % IMM GRAN % (test code = 1275337298) 0.50 % LYMPH % (test code = 736-9) 6.7 % MONO % (test code = 5905-5) 9.8 % EOS % (test code = 713-8) 0.2 % BASO % (test code = 706-2) 0.1 % GRAN MAT x10^3(ANC) (test code = 7360797044) 12.19 10*3/uL 1.99-6.95 H IMM GRAN x10^3 (test code = 7488759056) 0.08 10*3/uL 0.00-0.06 H LYMPH x10^3 (test code = 731-0) 0.99 10*3/uL 1.09-3.23 L MONO x10^3 (test code = 742-7) 1.44 10*3/uL 0.36-1.02 H EOS x10^3 (test code = 711-2) 0.03 10*3/uL 0.06-0.53 L BASO x10^3 (test code = 704-7) 0.01-0.09 Lab Interpretation (test code = 09629-5) Abnormal [facility] GLUCOSE (AUTOMATED)2023-08-16 22:02:57* Test Item Value Reference Range Interpretation Comme nts POCT GLU (test code = 6087291431) 112 mg/dL 70-110 H Lab Interpretation (test cod e = 45962-5) [facility]23-[facility]-16 16:59:58* Test Item Value Reference Range Interpretation Comme nts POCT GLU (test code = 2410472850) 127 mg/dL 70-110 H Lab Interpretation (test cod e = 64913-9) [facility]2023-08-16 12:48:23* Test Item Value Reference Range Interpretation Comme nts POCT GLU (test code = 1214238781) 175 mg/dL 70-110 H Lab Interpretation (test cod e = 67472-0) Abnormal [facility] GLUCOSE (AUTOMATED)2023-08-16 02:07:02* Test Item Value Reference Range Interpretation Comme nts POCT GLU (test code = 6956141318) 195 mg/dL 70-110 H Notified Provide r Lab Interpretation (test code = 02267-5) Abnormal [facility] GLUCOSE (AUTOMATED)2023-08-15 21:36:15* Test Item Value Reference Range Interpretation Comme nts POCT GLU (test code = 0287504010) 284 mg/dL 70-110 H Lab Interpretation (test cod e = 38744-8) Abnormal [facility] GLUCOSE (AUTOMATED)2023-08-15 16:56:02* Test Item Value Reference Range Interpretation Comme nts POCT GLU (test code = 6113846121) 74 mg/dL 70-110 Lab Interpretation (test cod e = 75064-3) [facility]2023-08-15 13:12:34* Test Item Value Reference Range Interpretation Comme nts POCT GLU (test code = 8330015418) 258 mg/dL 70-110 H Lab Interpretation (test cod e = 48452-9) [facility]2023-08-15 04:04:43* Test Item Value Reference Range Interpretation Comme nts POCT GLU (test code = 2815767048) 120 mg/dL 70-110 H Lab Interpretation (test cod e = 40279-3) Abnormal [facility] HospitalGlycosylated Hemoglobin (A1C)2023-08-15 01:17:32* Test Item Value Reference Range Interpretation Comme nts HGB A1C (test code = 4548-4) 8.9 % 4.0-5.7 H GINA (test code = GINA) Reference RangesNormal: <5.7%Prediabetes: 5.7 - 6.4%Diabetes: > 6.5% Lab Interpretation (test code = 08556-1) Abnormal [facility] HospitalBeta Onsickk-Jtqoczxm9885-50-21 01:00:45* Test Item Value Reference Range Interpretation Comme nts BOH (test code = 2766426104) 0.5 mmol/L GINA (test code = GINA) Normal Ranges: ? ? Nonfasting ? Less than 0.1 mmol/L ? ? Overnight Fast ? ? ? Less than 0.4 mmol/L ? ? Fasting (1-2 weeks) ?6-8 mmol/L Test developed and characteristics determined by [facility] Laboratory Services. [facility] HospitalCreatine Agcios6447-54-75 23:07:16* Test Item Value Reference Range Interpretation Comme nts CK (test code = 3402894527) 148 U/L 33-194 Lab Interpretation (test cod e = 66899-1) Normal [facility] HospitalTROPONIN [id number] 22:18:16* Test Item Value Reference Range Interpretation Comme nts TROPONIN I (test code = 3351522180) 0.081 ng/mL <=0.034 H GINA (test code [...] of biotin. Lab Interpretation (test code = 63895-0) Abnormal [facility] HospitalN-TERMINAL PHA-[id number] 22:15:55* Test Item Value Reference Range Interpretation Comme nts NT-proBNP (test code = 03784-6) 999 pg/mL <=125 H GINA (test code = GINA) Positive: Heart Failure Likely Lab Interpretation (test code = 84142-0) Abnormal [facility] HospitalMagnesium2024-04-20 22:07:17* Test Item Value Reference Range Interpretation Comme nts MAGNESIUM (test code = 8636756390) 1.8 mg/dL 1.7-2.4 Lab Interpretation (test cod e = 32809-6) Normal [facility] HospitalCOMP. METABOLIC PANEL (63781)2023 22:06:57* Test Item Value Reference Range Interpretation Comme nts NA (test code = 3440290281) 130 mmol/L 135-145 L K (test code = 5292771313) 3.4 mmol/L 3.5-5.0 L CL (test code = 1776850459) 93 mmol/L 98-108 L CO2 TOTAL (test code = 8900091041) 26 mmol/L 23-31 AGAP (test code = 1022632131) 11 2-16 BUN (test code = 6742601625) 39 mg/dL 7-23 H GLUCOSE (test code = 1176780390) 142 mg/dL 70-110 H CREATININE (test code = 2160-0) 2.40 mg/dL 0.60-1.25 H TOTAL BILI (test code = 0764006531) 1.2 mg/dL 0.1-1.1 H CALCIUM (test code = 5504304121) 9.1 mg/dL 8.6-10.6 T PROTEIN (test code = 8364157319) 7.7 g/dL 6.3-8.2 ALBUMIN (test code = 4121534652) 4.2 g/dL 3.5-5.0 ALK PHOS (test code = 2112029373) 102 U/L 34-122 ALTv (test code = 1742-6) 16 U/L 5-50 AST(SGOT) (test code = 8852926488) 26 U/L 13-40 eGFR (test code = 49409-4) 30.9 mL/min/1.73m2 CKD-EPI eGFR (2020). Assuming creatinine has been stable day-to-day for at least three months, the eGFR indicates Category G3b (30 - 44 mL/min/1.73 m2) Lab Interpretation (test code = 39233-6) Abnormal [facility] HospitalPhosphorus2024-04-20 22:06:37* Test Item Value Reference Range Interpretation Comme nts PHOSPHORUS (test code = 0663394247) 4.9 mg/dL 2.5-5.0 Lab Interpretation (test cod e = 25343-9) Normal [facility] HospitalLIPASE2024-04-20 22:06:17* Test Item Value Reference Range Interpretation Comme nts LIPASE (test code = 2263233637) 204 U/L 0-220 Lab Interpretation (test cod e = 84779-5) Normal [facility] HospitalCBC WITH [id number] 21:54:56* Test Item Value Reference Range Interpretation [...] g/dL 31.2-35.0 H RDW-SD (test code = 11455-0) 38.1 fL 38.5-51.6 L RDW-CV (test code = 788-0) 11.8 % 12.1-15.4 L PLT (test code = 777-3) 235 150-328 MPV (test code = 53895-0) 11.1 fL 9.8-13.0 NRBC/100 WBC (test code = 4868262253) 0.0 0.0-10.0 NRBC x10^3 (test code = 5849265091) See_Comment [Automated message] The system which generated this result transmitted reference range: 10*3/?L. The reference range was not used to interpret this result as normal/abnormal. GRAN MAT (NEUT) % (test code = 770-8) 80.3 % IMM GRAN % (test code = 6211639692) 0.60 % LYMPH % (test code = 736-9) 8.7 % MONO % (test code = 5905-5) 10.0 % EOS % (test code = 713-8) 0.2 % BASO % (test code = 706-2) 0.2 % GRAN MAT x10^3(ANC) (test code = 8046368715) 10.18 10*3/uL 1.99-6.95 H IMM GRAN x10^3 (test code = 2085625499) 0.07 10*3/uL 0.00-0.06 H LYMPH x10^3 (test code = 731-0) 1.11 10*3/uL 1.09-3.23 MONO x10^3 (test code = 742-7) 1.27 10*3/uL 0.36-1.02 H EOS x10^3 (test code = 711-2) 0.03 10*3/uL 0.06-0.53 L BASO x10^3 (test code = 704-7) 0.03 10*3/uL 0.01-0.09 Lab Interpretation (test code = 76048-0) Abnormal [facility] HospitalXR CHEST 1 [id number] 21:49:58EXAM: XR CHEST 1 2023 4:38 PM HISTORY: 58 years-old Male with r/o infilrate . TECHNIQUE: Portable AP view of the chest. COMPARISON: 04/21/2023 FINDINGS: Lines and tubes: None. Cardiomediastinal: The cardiomediastinal silhouette is unremarkable. Lungs and pleura: The lungs are clear. No focal consolidation,pneumothorax, or pleural effusion is seen. Included osseous structures show no acuteabnormality.[facility] HospitalCT ABDOMEN PELVIS W [id number] 21:45:03EXAM: CT ABDOMEN AND PELVIS WITH CONTRAST [...] change involving the spine, sacroiliac jointsand hips ispresent.[facility] HospitalCT TRAUMA HEAD WO [id number] 21:38:37FULL RESULT: Examination: CT TRAUMA HEAD WO CONTRAST on 2023 4:16 PM Clinical Indication: Headache, hypertensive Comparison: None Technique: Noncontrast imaging was obtained from base to vertex.Findings: The sulci and ventricles were unremarkable. There may be subtlewhite matter microvascularischemic changes, notably in the anteriorperiventricular region, but there is no evidence for hemorrhage or otherclearly acute intracranial process.[facility] HospitalLactic Acid Whole Scejb0770-20-61 21:30:25* Test Item Value Reference Range Interpretation Comme nts LACTIC ACID (test code = 7725248324) 1.58 mmol/L 0.50-2.20 Lab Interpretation (test cod e = 10130-4) Normal [facility] HospitalAc[facility] Venous Blood [id number] 21:30:25 * Test Item Value Reference Range Interpretation Comme nts PH (test code = 5049831751) 7.34 7.32-7.42 PCO2 NOY (test code = 8797726071) 45 41-51 PO2 NOY (test code = 3998897457) 24 25-40 L HCO3 NOY (test code = 8390285167) 24 24-28 AC VBE(BEAKER) (test code = 3915175201) -1.9 mEq/L Lab Interpretation (test cod e = 59243-0) Abnormal [facility] GLUCOSE (AUTOMATED)2023 20:26:17* Test Item Value Reference Range Interpretation Comme nts POCT GLU (test code = 6035270176) 165 mg/dL 70-110 H Lab Interpretation (test cod e = 87759-9) Abnormal [facility] GLUCOSE(AGE >30DAYS)2023 20:26:00* Test Item Value Reference Range Interpretation Comme nts POCT Glu (age>30days) (test code = 3342) 165 mg/dL 70-110 A Lab Interpretation (test cod e = 31223-1) Abnormal [facility] GLUCOSE (AUTOMATED)2023-04-23 18:15:28* Test Item Value Reference Range Interpretation Comme nts POCT GLU (test code = 7631097274) 218 mg/dL 70-110 H Lab Interpretation (test cod e = 40299-1) [facility] 15:35:23* Test Item Value Reference Range Interpretation Comme nts POCT GLU (test code = 1079020945) 186 mg/dL 70-110 H Lab Interpretation (test cod e = 88702-3) Abnormal [facility] GLUCOSE (AUTOMATED)2023-04-23 02:57:57* Test Item Value Reference Range Interpretation Comme nts POCT GLU (test code = 4339540143) 82 mg/dL 70-110 Lab Interpretation (test cod e = 24552-2) Normal [facility] GLUCOSE (AUTOMATED)2023-04-23 00:33:51* Test Item Value Reference Range Interpretation Comme nts POCT GLU (test code = 9918948800) 181 mg/dL 70-110 H Lab Interpretation (test cod e = 20086-3) Abnormal [facility] GLUCOSE (AUTOMATED)2023-04-22 22:54:22* Test Item Value Reference Range Interpretation Comme nts POCT GLU (test code = 1237986372) 127 mg/dL 70-110 H Lab Interpretation (test cod e = 64576-2) Abnormal [facility] GLUCOSE (AUTOMATED)2023-04-22 20:37:54* Test Item Value Reference Range Interpretation Comme nts POCT GLU (test code = 3824350186) 230 mg/dL 70-110 H Lab Interpretation (test cod e = 53898-1) Abnormal [facility] GLUCOSE (AUTOMATED)2023-04-22 17:46:23* Test Item Value Reference Range Interpretation Comme nts POCT GLU (test code = 9571755734) 144 mg/dL 70-110 H Lab Interpretation (test cod e = 05227-7) Abnormal [facility] GLUCOSE (AUTOMATED)2023-04-22 13:42:26* Test Item Value Reference Range Interpretation Comme nts POCT GLU (test code = 5232759929) 229 mg/dL 70-110 H Lab Interpretation (test cod e = 04985-0) Abnormal [facility] GLUCOSE (AUTOMATED)2023-04-22 03:33:49* Test Item Value Reference Range Interpretation Comme nts POCT GLU (test code = 8939037781) 222 mg/dL 70-110 H Lab Interpretation (test cod e = 90252-9) Abnormal [facility] GLUCOSE (AUTOMATED)2023-04-22 01:36:03* Test Item Value Reference Range Interpretation Comme nts POCT GLU (test code = 6747353961) 282 mg/dL 70-110 H Lab Interpretation (test cod e = 62738-3) [facility] 2023-04-21 22:26:30* Test Item Value Reference Range Interpretation Comme nts Height (test code = 8768231701) 63 in Weight (test code = 4227516276) 130 lbs Systolic BP (test code = 9765342721) 122 mmHg Diastolic BP (test code = 4599992448) 81 mmHg Heart Rate (test code = 4118579423) 105 bpm BSA (test code = 4560798862) 1.[address] Depresion (mm) (test code = 0444605032) [address] Depression (mm) (test code = 7296169168) 0 mm Radiology Study observation (narrative) (test code = 93796-6) GINA (test code = GINA) Table formatting [...] left ventricular wall motion is globally hyperkinetic. [facility]2023-[facility]-21 18:05:03* Test Item Value Reference Range Interpretation Comme nts Height (test code = 2550882840) 63 in Weight (test code = 3405465347) 130 lbs Systolic BP (test code = 2733995004) 114 mmHg Diastolic BP (test code = 9914578015) 75 mmHg Heart Rate (test code = 0612318736) 98 bpm BSA (test code = 1999796779) 1.61 m2 LVIDD (test code = 6811379578) 4.00 cm Left Ventricular End Diastolic Volume by Teichholz Method (test code = 9044409) 70.0 mL IVS (test code = 0291367207) 1.07 cm Interventricular Septum Diastolic Thickness by 2D (test code = 4328933) 1.07 cm LVPWD (test code = 2699101318) 1.05 cm PW (test code = 4748533393) 1.05 cm 0.6-1.1 EF(Teich) (test code = 9422600806) 62.60 % LVIDS (test code = 6682575425) 2.70 cm Left Ventricular End Systolic Volume by Teichholz Method (test code = 2631368) 26.2 mL FS (test code = 1611280171) 33 % EF - 2D (test code = 37095780) 62.60 % Ao root diam (test code = 9064447852) 3.70 cm Aortic root (test code = 8797826830) 3.7 cm Ao root annulus (test code = 0186871640) 3.7 cm LA size (test code = 5727885415) 3.2 cm LVOT diameter (test code = 0547136932) 2.08 cm LVOT area (test code = 5269103834) 3.40 cm2 MV Peak E Nima (test code = 0281191414) 48.3 cm/s E wave decelartion time (test code = 1430937544) 0.15 s MV Peak A Nima (test code = 2921565569) 74.4 cm/s E/A ratio (test code = 0623238332) 0.65 ratio MV Prop V (test code = 6090656062) 21.20 cm/s LAV(MOD-sp4) (test code = 3203791514) 35.30 mL Tapse (test code = 2691131713) 1.73 cm LVOT stroke volume (test code = 9040042182) 45.20 cm3 LVOT peak nima (test code = 4183001288) 79.0 cm/s LVOT mn grad (test code = 6664368582) 1.3 mmHg AV LVOT peak gradient (test code = 1700187074) 2.50 mmHg LVOT peak VTI (test code = 2524070851) 13.2 cm LV V1 mean (test code = 9915164937) 52.90 cm/s Ao peak nima (test code = 4602347231) 83.8 cm/s AV area peak nima (test code = 5053056784) 3.2 cm2 Ao max PG (test code = 5109791090) 2.80 mm[Hg] AV peak gradient (test code = 7445519741) 2.8 mmHg LA Volume Index (BP) (test code = 3781582827) 25.9 mL/m2 LA volume (BP) (test code = 1342851191) 41.8 mL LAV(MOD-sp2) (test code = 9983782130) 40.90 mL A4C EF (test code = 0447417896) 54.40 % EF(sp4-el) (test code = 8159134638) 55.00 % SV(MOD-sp4) (test code = 8758467219) 53.10 mL SV(sp4-el) (test code = 4062268366) 55.60 mL Radiology Study observation (narrative) (test code = 84325-1) GINA (test code = GINA) ?Left?Ventricle: Left [...] enhancing agent used. Patient exhibited sinus rhythm. [facility]23-[facility]-21 17:48:26* Test Item Value Reference Range Interpretation Comme nts POCT GLU (test code = 4837049268) 198 mg/dL 70-110 H Lab Interpretation (test cod e = 91851-1) [facility]normal [facility] Hospital[facility] CHEST 1 [id number] 15:12:07EXAM: XR CHEST 1 VW HISTORY: NSTEMI COMPARISON: None. FINDINGS: Small bandlike densities in the left midlung have more the appearance ofatelectasis than pneumonia. The lungs are well expanded and clearotherwise. The heart and great vessels are normal except for calcium in thearch of the aorta.[facility])2023-04-21 09:39:57* Test Item Value Reference Range Interpretation Comme nts POCT GLU (test code = 3440057948) 243 mg/dL 70-110 H Lab Interpretation (test cod e = 19574-6) Abnormal [facility] HospitalFerritin [id number] 07:28:27* Test Item Value Reference Range Interpretation Comme nts FERRITIN (test code = 9646962643) 76.3 ng/mL 18.0-464.0 GINA (test code = GINA) Biotin has been reported to cause a negative bias, interpret results relative to patient's use of biotin. Lab Interpretation (test code = 88297-6) Normal [facility] HospitalGlycosylated Hemoglobin (A1C)2023-04-21 07:25:47* Test Item Value Reference Range Interpretation Comme [facility] HGB A1C (test code = 4548-4) 12.6 % 4.0-5.7 H GINA (test code = GINA) Reference RangesNormal: <5.7%Prediabetes: 5.7 - 6.4%Diabetes: > 6.5% Lab Interpretation (test code = 94605-2) Abnormal [facility] HospitalThyroid Stimulating [id number] 07:24:07 * Test Item Value Reference Range Interpretation Comme nts TSH (test code = 4735522175) 2.56 See_Comment [Automated [employer]med[employer] ge] The system which generated this result transmitted reference range: 0.45 - 4.70 mIU/L. The reference range was not used to interpret this result as normal/abnormal. Lab Interpretation (test code = 39580-2) Normal [facility] HospitalPhosphorus2023-12-27 06:52:06* Test Item Value Reference Range Interpretation Comme nts PHOSPHORUS (test code = 1159679181) 3.2 mg/dL 2.5-5.0 Lab Interpretation (test cod e = 54629-9) Normal [facility] HospitalCritical [id number] 02:54:15NSergio chin MD ? ? 04/20/2023 ?8:54 [...] billable procedures and treating other patients. [facility] [id number] 02:30:18* Test Item Value Reference Range Interpretation Comme nts TROPONIN I (test code = 0810593119) 0.154 ng/mL <=0.034 H GINA (test code [...] of biotin. Lab Interpretation (test code = 83742-6) Abnormal [facility] HospitalETHANOL2023-12-27 02:24:46 ALCOHOL<10mg/dL04/20/2023 8:24 PM [facility]<10 Pilqwpeu77-345 Toxic>100 Depression of AUTO DAMAGE INSURANCE APPRAISER>400 Fatalities ReportedUnBaylor Scott & White [facility] – TempleCOMP. METABOLIC PANEL (67916)2023-04-21 02:19:15* Test Item Value Reference Range Interpretation Comme nts NA (test code = 6657902761) 129 mmol/L 135-145 L K (test code = 6722347943) 3.5 mmol/L 3.5-5.0 CL (test code = 6996462546) 94 mmol/L 98-108 L CO2 TOTAL (test code = 4954517510) 28 mmol/L 23-31 AGAP (test code = 6206745972) 7 2-16 BUN (test code = 4834568763) 26 mg/dL 7-23 H GLUCOSE (test code = 3980936843) 314 mg/dL 70-110 H CREATININE (test code = 7523041165) 0.92 mg/dL 0.60-1.25 TOTAL BILI (test code = 8047637674) 0.8 mg/dL 0.1-1.1 CALCIUM (test code = 2045617317) 8.5 mg/dL 8.6-10.6 L T PROTEIN (test code = 4917651877) 6.0 g/dL 6.3-8.2 L ALBUMIN (test code = 0972484341) 3.3 g/dL 3.5-5.0 L ALK PHOS (test code = 5272543543) 95 U/L 34-122 ALTv (test code = 1742-6) 23 U/L 5-50 AST(SGOT) (test code = 8147058794) 30 U/L 13-40 eGFR (test code = 47998-5) 98.2 mL/min/1.73m2 CKD-EPI eGFR (2020). Assuming creatinine has been stable day-to-day for at least three months, the eGFR indicates Category G1 (>= 90 mL/min/1.73 m2) Lab Interpretation (test code = 23264-3) Abnormal [facility] WITH [id number] 02:03:54* Test Item Value Reference Range Interpretation [...] g/dL 31.2-35.0 H RDW-SD (test code = 95365-0) 36.2 fL 38.5-51.6 L RDW-CV (test code = 788-0) 11.6 % 12.1-15.4 L PLT (test code = 777-3) 178 See_Comment [Automated messa ge] The system which generated this result transmitted reference range: 150 - 328 10*3/?L. The reference range was not used to interpret this result as normal/abnormal. MPV (test code = 21952-6) 10.9 fL 9.8-13.0 NRBC/100 WBC (test code = 4962084143) 0.0 See_Comment [Automated me ssage] The system which generated this result transmitted reference range: 0.0 - 10.0 /100 WBCs. The reference range was not used to interpret this result as normal/abnormal. NRBC x10^3 (test code = 2350996623) See_Comment [Automated messa ge] The system which generated this result transmitted reference range: 10*3/?L. The reference range was not used to interpret this result as normal/abnormal. GRAN MAT (NEUT) % (test code = 770-8) 81.3 % IMM GRAN % (test code = 6059997675) 0.30 % LYMPH % (test code = 736-9) 10.5 % MONO % (test code = 5905-5) 7.6 % EOS % (test code = 713-8) 0.1 % BASO % (test code = 706-2) 0.2 % GRAN MAT x10^3(ANC) (test code = 0894380590) 9.55 10*3/uL 1.99-6.95 H IMM GRAN x10^3 (test code = 2714094054) 0.04 10*3/uL 0.00-0.06 LYMPH x10^3 (test code = 731-0) 1.23 10*3/uL 1.09-3.23 MONO x10^3 (test code = 742-7) 0.89 10*3/uL 0.36-1.02 EOS x10^3 (test code = 711-2) 0.06-0.53 L BASO x10^3 (test code = 704-7) 0.01-0.09 Lab Interpretation (test code = 79310-8) Abnormal [facility] ([facility])2023-04-21 01:55:51* Test Item Value Reference Range Interpretation Comme nts POCT GLU (test code = 9221439670) 408 mg/dL 70-110 H Lab Interpretation (test cod e = 08006-7) Abnormal [facility] HospitalCOMPREHENSIVE METABOLIC [id number] 05:07:51* Test Item Value Reference Range Interpretation Comme nts GLUCOSE (test code = 2217) 224 MG/DL 70-99 H BUN (test code = 2208) 22 MG/DL 6-20 H CREATININE (test code = 2214) 0.71 MG/DL 0.80-1.40 L eGFR (2020 CKD-EPI) (test code = 20722) 109 ML/MIN/1.73 >60 CALC BUN/CREAT (test code [...] code = 2218) 24 U/L 5-50 LIPID [id number] 05:07:51* Test Item Value Reference Range Interpretation [...] SPECIMENS. FOR MOREINFORMATION, SEE CLIENT ANNOUNCEMENT AT [email or web address] RISK RATIO LDL/HDL (test code = 2238) 1.72 RATIO <3.55 PSA, [id number] 05:07:10* Test Item Value Reference Range Interpretation Comme nts PSA, TOTAL (test code = 2606) 19.70 NG/ML See_Comment H NOTE: Methodolog y is Ashley Jasmina Electrochemiluminescence Immunoassay traceable to WHO reference standard 96/760. UNLESS OTHERWISE INDICATED, ALL TESTING PERFORMED [facility] [employer] [address] [place] [address] ASSOCIATE PROGRAM MANAGER: DUSTIN COLMENARES M.D. CLIA NUMBER [id number] [place]. [id number] [Automated message] The system which generated this result transmitted reference range: <=4.00. The reference range was not used to interpret this result as normal/abnormal. HEMOGLOBIN [id number] 02:46:58* Test Item Value Reference Range Interpretation Comme nts HEMOGLOBIN A1c (test code = 62442) 11.0 % 4.2-5.6 H [employer] GUIDELINES FOR HGB A1C: [...] OR LABORATORY CONSULTATION. CBC W/AUTO DIFF WITH [id number] 02:32:39* Test Item Value Reference Range Interpretation [...] 0.00-0.10 ABS NUCLEATED RBCS (test code = 96827) 0.00 K/UL 0.00-0.11 Consult Notes Date/Time Note [...] when jensen is moved. COMMUNICATION Primary Language: Slovenian Able to Verbalize needs: Yes Vision:good; no [...] Minutes: 20 min Jesica Murphy,PT [place] License: [id number] Required Components in Determining Evaluation Level History: No personal factors or comorbidities: No (79974) 1-2 personal factors and/or comorbidities: Yes (98545) 3 or more personal factors and/ or comorbidities: No (46174) Examination of Body System(s) Addressing 1-2 elements: Yes (83881) Addressing a total of 3 or more elements: No (74707) Addressing a total of 4 or more elements: No (06695) Clinical Presentation Stable: Yes (17146) Evolving: No (13540) Unstable: No (07882) Clinical Decision Making (Complexity) Low: No (36500) Moderate: Yes (36724) High: No (58461) Jesica Murphy PT [facility] - [place] 2023-08-15 10:01:34 Associated Order(s): CONSULT CARDIOLOGY [facility] Cardiology Consult Note Patient: Saturnino Maldonado [...] of Onset No Significant Medical Problems Mother NC (myocardial infarction) Father SOCIAL HISTORY Social History [...] specified complication Elevated troponins: Likely type II NC in the setting of underlying ELIEZER/elevated blood [...] per primary team. Last Two A1C Results ([facility]/, POCT, [place]) Recent Labs 04/20/23195408/14/23 1547 [...] feel free to call our office at [phone]. I would be happy to be of further assistance for Saturnino Maldonado wellbeing. Voice recognition software has been used to create portions of this document. An attempt to proofread has been made to minimize errors. Please do not hesitate to call with any questions. Benja Rivera MD Case Coordinator, Division of Cardiology [facility] 2023-04-21 08:46:48 Associated Order(s): CONSULT ENDOCRINOLOGY Endocrinology Consult Note Consultation requested by: Service: White team Reason for Consultation: Diabetes Date of Service: 04/21/23 HPI 57 year old male with a PMH of HTN, T2DM, Fmhx premature CAD who presented with complaints of polyuria and weakness at [facility] ER. Patient transferred to [place] for further work up. Endocrinology consulted for diabetes management Diabetes Type and year diagnosed: 2011, type 2 Diabetes complications: none Hx of DM regimen: no meds for 3 years Compliance: - BG monitoring? - Hypoglycemia hx: no Hypoglycemia unawareness? no Symptoms of hyperglycemia: polyuria Living situation and support: homeless, lives with different relatives Diabetes doctor: PCP in [place], has not seen for few years Family hx of diabetes: no HX of glucocorticoid use: no HX of transfusions or EPO in last 6 months: no PAST MEDICAL HISTORY Past Medical History: Diagnosis Date HTN (hypertension) Uncontrolled diabetes mellitus with hyperglycemia History reviewed. No pertinent surgical history. Family History Problem Relation Age of Onset No Significant Medical Problems Mother NC (myocardial infarction) Father Social History Tobacco Use [...] with complaints of polyuria and weakness at [facility] ER. Patient transferred to [place] for further work up. Endocrinology consulted for [...] pay, need NPH and Regular insulin to [facility] ([employer]) -Need insulin vials, syringe needles, glucometer, test strips, lancets -Need meds to bed before discharge -Please contact Endocrine before discharge - Case discussed with Dr. Cabrera.. Austin Amaro. Endocrinology Fellow, PGY 5 ER OPERATOR Associated attestation - Rita Cabrera MD - 04/22/2023 2:11 PM BANDER OPERATOR Endocrinology Faculty Attestation: I evaluated this patient's progress on 04/21/[address] Amaro note as written and revised. I actively participated in the decision-making process. Please see the resident's note for additional details that includes pertinent addendums I made directly in the note during revision. Rita Cabrera MD Case Coordinator Division of Endocrinology IM-ENDOCRINOLOGY,DIABET ES & METABOLISM [facility] - Health History and Physical Notes Date/Time Note Provider Source 2023-08-21 22:53:53 [facility] Hospitalist Admission H&P Date of Service: [...] consulted. 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 Lyubov Banda MD [facility] 2023 22:58:21 MEDICINE MEGADC ADMIT H&P [...] of Onset No Significant Medical Problems Mother NC (myocardial infarction) Father ALLERGIES No Known Allergies [...] present Code Status: Presumed Full Code [facility] 2023-04-21 00:39:12 [facility] Admit H&P PCP: Erik Louie Jr Date of Service: 04/20/2023 CHIEF COMPLAINT: Polyuria HISTORY OF PRESENT ILLNESS Saturnino Maldonado is a 57 year old male with a PMH of HTN, T2DM, Fmhx premature CAD who presented with complaints of polyuria and weakness at [facility] ER. Patient transferred to [place] for further work up. Patient reports that [...] or drug use. Family history significant for NC in father in his 40s. Currently not [...] use drugs. Family history: family history includes NC (myocardial infarction) in his father; No Significant [...] help with resources. Plan: - Admit to [facility] - Trend Troponin to peak - [...] Internal Medicine Department PGY 2, [place] Team ER OPERATOR Associated attestation - Bret Banda MD - 04/21/2023 2:47 PM BANDER OPERATOR I reviewed patient's chart, vitals, lab work, current medications and other diagnostic studies. I saw and examined the patient today and agree with the detailed note. I actively participated in the decision-making process. Bret Banda MD Case Coordinator Division of Cardiology [facility] - Health Notes Date/Time Note Provider [...] Outcome: Adequate for discharge Kalina Georges RN [facility] 2023-08-24 13:14:04 Problem: Pain Goal: Control [...] Absence of falls Outcome: Adequate for discharge [facility] 2023-08-23 07:12:12 Problem: Pain Goal: Control [...] Progressing as expected T Abi Lowery RN [facility] 2023-08-22 22:07:54 Problem: Pain Goal: Control [...] Outcome: Progressing as expected Tammy Sweeney RN [facility] 2023-08-22 08:41:53 Problem: Pain Goal: Control [...] Outcome: Progressing as expected Mihaela Lopez RN [facility] 2023-08-22 03:26:01 Problem: Pain Goal: Control [...] Outcome: Progressing as expected Angeline Claudio RN [facility] 2023-08-21 23:32:26 Patient admitted to [facility] for diagnosis of ELIEZER, urinary obstruction Patient agrees to admission, discussed plan of care with patient and family. Patient is awake, alert, oriented, resp reg unlabored, color appropriate for race, PIV intact No adverse reaction to medications administered while in ED Belongings with patient to unit Report to [facility] RN Chela Reyes RN [facility] 2023-08-21 19:43:36 Pt C/O RLQ pain that started yesterday, pt states last BM 08/16/2023. Pt denies any urinary, nausea or vomiting Sydney Duff RN [facility] 2023-08-21 19:39:00 [facility] Emergency Department Note Patient Name: Saturnino Maldonado Date of : 1965 58 year old male Treatment Room: [place] [address] Primary Care Physician: Erik Louie Jr Patient Escorted by: Self [9] Mode of Arrival: EMS - [place] [46] EMS Treatment Prior to ED Arrival: PRODUCTION ADMINISTRATIVE ASSISTANT treatment: None Travel and Exposure Screening: Symptoms [...] 0.01 - 0.09 10*3/uL COMP. METABOLIC PANEL (77695) - Abnormal NA 120 (*) 135 - [...] CONTRAST Cbc with Diff Comp. Metabolic Panel (61200) Lipase Urinalysis Basic Metabolic Panel (NA, K, [...] treatment AdmissionCare documentation entered by: Cosme Cardona [facility] [place], 27th edition, Copyright ? 2022 [facility] [employer] All Rights Reserved. 6114-22-46H92:26:32-05:00 ED COURSE ED Course as of 08/21/235 [...] Cosme Cardona DO 08/21/232254 [facility] 2023-08-21 19:39:00 AdmissionCare Guideline: Urologic Disease, [...] treatment AdmissionCare documentation entered by: Cosme Cardona [facility] [place], 27th edition, Copyright ? 2022 [facility] [employer] [facility] All Rights Reserved. 1407-21-33J63:26:32-05:00 [facility] 2023-08-17 08:32:29 ----- Message from Yary [...] with one of us in 3-4 weeks. [facility] 2023-08-16 17:56:55 Summary: discharge transportation Discharge paperwork provided, patient stated he does not have a ride. Transportation was arranged with voucher. Discharge location: [address] [place] [id number] Patient verbalized understanding. T Hilary Quinones RN [facility] 2023-08-16 17:19:16 Problem: Pain Goal: Control of pain at or below patient's documented comfort goal Outcome: Resolved Goal: Reduction in pain sensation Outcome: Resolved Problem: Skin integrity Impaired (Risk or Actual) Goal: Prevention of new skin breakdown Outcome: Resolved Problem: Venous Thromboembolism, (actual or risk of) Goal: Absence of venous thromboembolism (Risk) Outcome: Resolved [facility] 2023-08-16 10:33:18 Summary: jensen Jensen discontinued without complications. Patient given lactulose PO. Patient notified to notify nurse and to leave urine/stool before flushing for nursing staff to assess. Patient verbalized understanding. [facility] 2023-08-16 00:51:24 Problem: Pain Goal: Control [...] Outcome: Progressing as expected [facility] 2023-08-15 19:27:06 Problem: Pain Goal: Control [...] Outcome: Progressing as expected Libia Johnson RN [facility] 2023 23:43:36 Problem: Pain Goal: Control of pain at or below patient's documented comfort goal Outcome: Progressing as expected Goal: Reduction in pain sensation Outcome: Progressing as expected Problem: Skin integrity Impaired (Risk or Actual) Goal: Prevention of new skin breakdown Outcome: Progressing as expected Problem: Venous Thromboembolism, (actual or risk of) Goal: Absence of venous thromboembolism (Risk) Outcome: Progressing as expected [facility] 2023 23:01:15 Patient admitted to [facility] for diagnosis of Hypertension, elevated troponin, urine retention, ELIEZER, hypokalemia. Patient agrees to admission, discussed plan of care with patient and family. Patient is awake, alert, oriented, resp reg unlabored, color appropriate for race, PIV intact No adverse reaction to medications administered while in ED Belongings with patient to unit Report to [facility] RN Josi Miller RN [facility] 2023 18:56:57 Handoff report given to Josi VILLAGRAN Nunu Fang RN [facility] 2023 14:42:29 Has been out of diabetic, BP meds since April. States he can't "afford it". Struggling with constipation for "several days". He called EMS today for excessive fatigue and worsening hypertension. He is A&Ox4 and able to ambulate. Alba Hernandez RN [facility] - Health 2023 14:38:00 Associated Order(s): EKG-12 Lead ROUTINE ONCE Pre-Procedure Diagnose(s): Hypertension, unspecified type Post-Procedure Diagnose(s): Hypertension, unspecified type; Elevated troponin I level; Urine retention [facility] Emergency Department Note Patient Name: Saturnino Maldonado Date of : 1965 58 year old male [facility] Primary Care Physician: Erik Louie Jr Patient Escorted by: Self [9] Mode of Arrival: EMS - [facility] [46] EMS Treatment Prior to ED Arrival: [...] History provided by: Patient and medical records ledger poster used: No Past Medical History/Immunizations: Past Medical [...] ED Events Date/Time Event User Comments 08/14/23 0220 Medical Screening Begins UMANG REYNAGA MD -- [...] ED Physician in the absence of a solid tire finisher: yes Previous ECG: Previous ECG: Compared to [...] signed by: Umang Reynaga MD 04/20/24 1852 [facility] [place] 2023 14:38:00 AdmissionCare Guideline: Renal Failure (Acute), [...] assessments) AdmissionCare documentation entered by: Umang Reynaga [facility], edition, Copyright ? 2022 [employer] All Rights Reserved. [id number] [facility] [place] 2023 14:38:00 AdmissionCare Guideline: Renal Failure (Acute) [...] patients) AdmissionCare documentation entered by: Umang Reynaga [facility], edition, Copyright ? 2022 [employer] All Rights Reserved. [id number] [facility] 2023-04-27 15:56:14 TRANSITIONAL CARE MANAGEMENT ASSESSMENT 04/27/2023 Saturnino Maldonado [id number] Saturnino Maldonado is a 57 year old /White male was admitted on 04/20/[address] He was discharged on 04/23/23 with [...] to check in. No linked episodes TCM [id number]-face outreach documentation: Future Appointments: ER OPERATOR Jeannette Dawn LVN [facility] 2023-04-23 18:39:42 Patient refuses to take taxi voucher which takes him directly to [facility] stating, "My brother is on his way to pick me up. I don't want to upset him as it is anymore." When asked if his brother is going to take him to [facility], patient stated, "I don't know. That will be between me and my brother." Transportation in room, wheeled patient downstairs to [facility]. ER OPERATOR Meme Sparks RN [facility] 2023-04-23 17:33:42 Problem: Glucose control Goal: [...] Outcome: Adequate for discharge 04/23/2023 1732 by Vlaentino Whiting RN Outcome: Adequate for discharge 04/23/2023 [...] Outcome: Progressing as expected A Whiting RN [facility] 2023-04-23 17:33:03 Problem: Glucose control Goal: [...] RN Outcome: Progressing as expected [facility] 2023-04-23 10:51:50 Problem: Glucose control [...] ability Outcome: Progressing as expected [facility] 2023-04-23 00:56:44 Problem: Mental Status - Impaired Goal: Able to achieve maximum level of cognitive ability Outcome: Progressing as expected [facility] 2023-04-23 00:52:07 Problem: Glucose control [...] parameters Outcome: Progressing as expected [facility] 2023-04-22 08:03:00 Problem: Glucose control [...] parameters Outcome: Progressing as expected [facility] 2023-04-20 23:38:56 Problem: Glucose control [...] parameters Outcome: Progressing as expected [facility] 2023-04-20 21:49:51 Patient admitted to [facility] ROOM 923 for diagnosis of WEAKNESS, NSTEMI, HYPERGLYCEMIA Patient agrees to admission, discussed plan of care with patient. Patient is awake, alert, oriented, resp reg unlabored, color appropriate for race, PIV intact No adverse reaction to medications administered while in ED Belongings with patient to unit Report to MARIE VILLAGRAN REPORT GIVEN TO MEDIC FOR [facility], PT LOADED TO BE TRANSFERRED. [facility]PAR[facility] INFUSING AT 700 UNITS/ HOUR. [facility] Jaelyn Vargas RN [facility] 2023-04-20 21:38:11 Report called to [facility], spoke with Marie VILLAGRAN. Pt awaiting EMS transfer. [facility] 2023-04-20 20:59:06 [facility] ETA 45 MIN per Chen A Carrero PCT [facility] 2023-04-20 20:54:15 Associated Order(s): Critical Care [...] separately billable procedures and treating other patients. [facility] [place] 2023-04-20 20:00:00 Patient aware of UA sample needed. Unable to provide sample at this moment. Urinal at bedside. Call light within reach. [facility] [place] 2023-04-20 19:50:08 Patient arrived to ED via [facility] c/o "not feeling well." [facility] 386 PRODUCTION ADMINISTRATIVE ASSISTANT. Per patient he was diagnosed with DM five years ago and stopped taking home meds-Metformin about three years ago. Patient c/o of being weak and increased UOP. Patient was nauseous PRODUCTION ADMINISTRATIVE ASSISTANT but has resolved since. ER OPERATOR [facility] 2023-04-20 19:43:00 EMERGENCY DEPARTMENT ENCOUNTER [facility] Patient Name: Saturnino Maldonado Date of : 1965 57 year old Exam Room:Room/bed info not found Primary Care Physician: No primary care provider on file. Pre- Hospital Patient Escorted by: Self [9] Mode of Arrival: EMS - [facility] ([facility]) [43] EMS Treatment Prior to ED Arrival: PRODUCTION ADMINISTRATIVE ASSISTANT treatment: Saline lock;IVF ED Events Date/Time Event User Comments 04/20/231943 Medical Screening Begins SERGIO APONTE MD -- 04/20/231943 First Provider Evaluation SERGIO APONTE MD -- Chief Complaint Chief Complaint Patient presents with High Blood Sugar ED Triage Notes Megan Madrigal RN 04/20/2023 19:52 Patient arrived to ED via [facility] c/o "not feeling well." [facility] 386 PRODUCTION ADMINISTRATIVE ASSISTANT. Per patient he was diagnosed with DM five years ago and stopped taking home meds-Metformin about three years ago. Patient c/o of being weak and increased UOP. Patient was nauseous PRODUCTION ADMINISTRATIVE ASSISTANT but has resolved since. HPI History provided [...] 0.01 - 0.09 10*3/uL COMP. METABOLIC PANEL (42907) - Abnormal NA 129 (*) 135 - [...] VW CBC WITH DIFF COMP. METABOLIC PANEL (62841) URINALYSIS URINE DRUG (IMMUNOASSAY) - COMPREHENSIVE DRUG SCREEN W/O REFLEX ETHANOL POCT GLUCOSE (AUTOMATED) Troponin I Prothrombin Time / INR aPTT aPTT (for use with Heparin Infusion) Ferritin Serum Iron Panel Troponin I Thyroid Stimulating Hormone Glycosylated Hemoglobin (A1C) Phosphorus Cbc with Diff Basic Metabolic Panel (NA, K, CL, CO2, GLUCOSE, BUN, CREATININE, CA) Magnesium Lipid Panel (67300)(Total Cholesterol, Triglycerides, HDL) O2 Per Protocol Orders [...] mg Procedures EKG Time 1950 Sinus tach [place] normal Intervals normal No acute ischemia Notes [...] demonstrates that he is having a silent NC. He has elevated troponin of 0.154. Please note he does not have any chest pain or shortness of breath. EKG does not demonstrate a STEMI. He was started on heparin, Plavix, and aspirin. The patient may require cardiac catheterization. The patient was transferred to [place] for further evaluation. History, physical exam findings, [...] this patient. Sergio Aponte Jr., MD Clinical Case Coordinator [facility] Emergency Department [employer] is used frequently and may produce errors. Promptly contact for obvious discrepancies. Sergio Aponte MD 04/21/23 0025 [facility] EMERGENCY PHYSICIAN STAFF [facility]
[2024-09-01] MEDS ORDERED: NA CHLORIDE 0.9% 500 ML ONE (01:23)
[2024-09-01 01:47] LABS: Absolute Basophils 0.1 K/uL (0-0.5); Absolute Eosinophils 0.1 K/uL (0-0.5); Absolute Lymphocytes (CBC) 1.5 K/uL (0.7-4.9); Absolute Monocytes 0.6 K/uL (0.1-1.3); Absolute Neutrophil 5.4 K/uL (1.8-8.0); Basophils % 0.9 % (0-1.3); Eosinophils % 1.7 % (0-4.4); Hematocrit 36.1 % (39.6-49.0); Hemoglobin 12.7 g/dL (13.6-17.9); Lymphocytes % 19.1 % (15.3-44.8); MCH 30.4 pg (27.0-35.0); MCV 86.8 fL (80-100); MPV 8.2 fL (7.6-11.3); Monocytes % 8.2 % (3.3-12.3); Neutrophils % 70.1 % (41.7-73.7); Nucleated Red Blood Cells % 0.1 % (0-0); Platelets 256 thou/uL (152-406); RBC Red Blood Cell Count 4.16 M/uL (4.33-5.43); Red Cell Distribution Width 13.4 % (12.1-15.2)
[2024-09-01 01:58] LABS: Albumin 3.4 g/dL (3.4-5.0); Albumin/Globulin Ratio 0.9 (1.1-1.8); Anion Gap 8.9 mEq/L (5.0-15.0); Bilirubin Total 0.3 mg/dL (0.2-1.0); Globulin 3.6 g/dL (2.3-3.5); Potassium 3.9 mEq/L (3.5-5.1)
--- NOTE | 2024-09-01 02:17 | ER ---
Nurse's Notes [facility] Name: Johnnie Maldonado Age: 59 yrs Sex: Male : 1965 Arrival Date: 08/31/2024 Time: 23:48 Bed 9 Private MD: Diagnosis: Pain in right foot;Pain in left foot;Type 2 diabetes mellitus with hyperglycemia Presentation: 08/31 23:50 Chief complaint: EMS states: walked in the rain and now bilateral feet pain. vc1 23:50 Chief complaint: Patient states: I got new shoes and I got my feet wet and walked a lot vc1 today, with my diabetes I just want a DrLakisha to look at them. Coronavirus screen: Client denies travel out of the [place] in the last 14 days. At this time, the client does not indicate any symptoms associated with coronavirus-19. Ebola Screen: Patient negative for fever greater than or equal to 101.5 degrees Fahrenheit, and additional compatible Ebola Virus Disease symptoms Patient denies exposure to infectious person. Patient denies travel to an Ebola-affected area in the 21 days before illness onset. No symptoms or risks identified at this time. Initial Sepsis Screen: Does the patient meet any 2 criteria? No. Patient's initial sepsis screen is negative. Does the patient have a suspected source of infection? No. Patient's initial sepsis screen is negative. Risk Assessment: Do you want to hurt yourself or someone else? Patient reports no desire to harm self or others. Onset of symptoms is unknown. 23:50 Method Of Arrival: EMS: [facility] vc1 23:50 Acuity: DONTE 4 vc1 Historical: - Allergies: 23:50 No Known Allergies; vc1 - PMHx: 23:50 diabetes mellitus; Hypertensive disorder; raynaud's; Urinary incontinence; vc1 - PSHx: 23:50 right arm; vc1 - Immunization history:: Client reports receiving the 2nd dose of the Covid vaccine. - Infectious Disease History:: Denies. - Social history:: Smoking status: Patient denies any tobacco usage or history of. - Family history:: not pertinent. Screenin/09 00:45 [facility] ED Fall Risk Assessment (Adult) History of falling in the last 3 months, vc1 including since admission No falls in past 3 months (0 pts) Confusion or Disorientation No (0 pts) Intoxicated or Sedated No (0 pts) Impaired Gait Yes (1 pt) Mobility Assist Device Used No (0 pt) Altered Elimination No (0 pt) Score/Fall Risk Level 0 - 2 = Low Risk Oriented to surroundings, Maintained a safe environment, Educated pt \T\ family on fall prevention, incl call for assistance when getting out of bed, Hourly rounding (assess needs \T\ fall precautionary measures) done. Abuse screen: Denies threats or abuse. Nutritional screening: No deficits noted. Tuberculosis screening: No symptoms or risk factors identified. Assessment: 00:00 General: Appears in no apparent distress. comfortable, Behavior is calm, cooperative, jb4 appropriate for age. Pain: Complains of pain in right foot and left foot. Neuro: Level of Consciousness is awake, alert, obeys commands, Oriented to person, place, time, situation. Cardiovascular: Patient's skin is warm and dry. Respiratory: Airway is patent Respiratory effort is even, unlabored, Respiratory pattern is regular, symmetrical. Derm: Skin is intact, Skin is pink, warm \T\ dry. 02:00 Reassessment: Patient appears in no apparent distress at this time. Patient and/or jb4 family updated on plan of care and expected duration. Pain level reassessed. Patient is alert, oriented x 3, equal unlabored respirations, skin warm/dry/pink. Vital Signs: 08/31 23:50 BP 147 / 97; Pulse 94; Resp 16; Temp 97.6; Pulse Ox 100% ; Weight 45.81 kg; Height 5 vc1 ft. 3 in. ; Pain 4/10; 23:50 Body Mass Index 17.89 (45.81 kg, 160.02 cm) vc1 23:50 Pain Scale: Adult vc1 ED Course: 23:50 Arm band placed on right wrist. vc1 09/01 00:07 Patient arrived in ED. mr 00:16 Salvatore Doherty MD is Attending Physician. [facility] 00:44 Triage completed. vc1 00:45 Patient has correct armband on for positive identification. Bed in low position. Call vc1 light in reach. Provided Education on: Plan of care. Pulse ox on. NIBP on. 01:30 Inserted saline lock: 18 gauge in right antecubital area, using aseptic technique. jb4 Blood collected. 01:31 CMP Sent. jb4 01:31 CBC with Diff Sent. jb4 02:38 No provider procedures requiring assistance completed. IV discontinued, intact, jb4 bleeding controlled, No redness/swelling at site. Pressure dressing applied. Administered Medications: 01:30 Drug: NS 0.9% IV 500 ml IV at bolus once; to be given as a bolus over 30 minutes Route: jb4 IV; Rate: bolus; Site: right antecubital; 02:33 Drug: Ketorolac IVP 30 mg IVP once Route: IVP; Site: right antecubital; jb4 02:33 Follow up: Response: Medication administered at discharge. jb4 Medication: 00:45 VIS not applicable for this client. vc1 Outcome: 02:16 Discharge ordered by . marai a 02:38 Discharged to home ambulatory, jb4 02:38 Condition: stable 02:38 Discharge instructions given to patient, Instructed on discharge instructions, follow up and referral plans. medication usage, Demonstrated understanding of instructions, follow-up care, medications, Prescriptions given X 1, 02:38 Patient left the ED. jb4 Signatures: Salvatore Doherty MD MD cha Rivera, Mary, Reg Reg Adithya Forrest, RN RN jb4 Pati Mayers RN RN vc1 Corrections: (The following items were deleted from the chart) 00:44 00:41 Chief complaint: EMS states: walked in the rain and now bilateral feet pain vc1 vc1
--- NOTE | 2024-09-01 02:17 | EDPHYS ---
Physician Documentation [facility] Name: Johnnie Maldonado Age: 59 yrs Sex: Male : 1965 Arrival Date: 08/31/2024 Time: 23:48 Bed 9 Private MD: ED Physician Salvatore Doherty HPI: 09/01 02:09 This 59 yrs old Male presents to ER via EMS with complaints of Foot Pain. maria a 02:09 The patient presents with pain, that is acute. The complaints affect the right foot and maria a left foot. Context: The problem was sustained on a street or driveway, resulted from walking in wet shoes. Modifying factors: The symptoms are alleviated by elevation of extremity, the symptoms are aggravated by movement, wearing shoes. Associated signs and symptoms: The patient has no apparent associated signs or symptoms. Severity of symptoms: At their worst the symptoms were mild, moderate, in the emergency department the symptoms have improved, moderately. The patient has experienced similar episodes in the past, several times. Historical: - Allergies: 08/31 23:50 No Known Allergies; vc1 - PMHx: 23:50 diabetes mellitus; Hypertensive disorder; raynaud's; Urinary incontinence; vc1 - PSHx: 23:50 right arm; vc1 - Immunization history:: Client reports receiving the 2nd dose of the Covid vaccine. - Infectious Disease History:: Denies. - Social history:: Smoking status: Patient denies any tobacco usage or history of. - Family history:: not pertinent. ROS: 09/01 02:09 Constitutional: Negative for fever, chills, and weight loss, Eyes: Negative for injury, maria a pain, redness, and discharge, ENT: Negative for injury, pain, and discharge, Neck: Negative for injury, pain, and swelling, Cardiovascular: Negative for chest pain, palpitations, and edema, Respiratory: Negative for shortness of breath, cough, wheezing, and pleuritic chest pain, Abdomen/GI: Negative for abdominal pain, nausea, vomiting, diarrhea, and constipation, Back: Negative for injury and pain, : Negative for injury, bleeding, discharge, and swelling, Skin: Negative for injury, rash, and discoloration, Neuro: Negative for headache, weakness, numbness, tingling, and seizure, Psych: Negative for depression, anxiety, suicide ideation, homicidal ideation, and hallucinations, Allergy/Immunology: Negative for hives, rash, and allergies, Endocrine: Negative for neck swelling, polydipsia, polyuria, polyphagia, and marked weight changes, Hematologic/Lymphatic: Negative for swollen nodes, abnormal bleeding, and unusual bruising, MS/extremity: Positive for pain, of the right foot and left foot, Neuro: Negative for altered mental status, dizziness, headache, numbness, weakness, Exam: 02:09 Constitutional: This is a well developed, well nourished patient who is awake, alert, maria a and in no acute distress. Head/Face: Normocephalic, atraumatic. Eyes: Pupils equal round and reactive to light, extra-ocular motions intact. Lids and lashes normal. Conjunctiva and sclera are non-icteric and not injected. Cornea within normal limits. Periorbital areas with no swelling, redness, or edema. ENT: Nares patent. No nasal discharge, no septal abnormalities noted. Tympanic membranes are normal and external auditory canals are clear. Oropharynx with no redness, swelling, or masses, exudates, or evidence of obstruction, uvula midline. Mucous membranes moist. Neck: Trachea midline, no thyromegaly or masses palpated, and no cervical lymphadenopathy. Supple, full range of motion without nuchal rigidity, or vertebral point tenderness. No Meningismus. Chest/axilla: Normal chest wall appearance and motion. Nontender with no deformity. No lesions are appreciated. Cardiovascular: Regular rate and rhythm with a normal S1 and S2. No gallops, murmurs, or rubs. Normal PMI, no JVD. No pulse deficits. Respiratory: Lungs have equal breath sounds bilaterally, clear to auscultation and percussion. No rales, rhonchi or wheezes noted. No increased work of breathing, no retractions or nasal flaring. Abdomen/GI: Soft, non-tender, with normal bowel sounds. No distension or tympany. No guarding or rebound. No evidence of tenderness throughout. Back: No spinal tenderness. No costovertebral tenderness. Full range of motion. Skin: Warm, dry with normal turgor. Normal color with no rashes, no lesions, and no evidence of cellulitis. MS/ Extremity: Pulses equal, no cyanosis. Neurovascular intact. Full, normal range of motion., bilateral aka Neuro: Awake and alert, GCS 15, oriented to person, place, time, and situation. Cranial nerves II-XII grossly intact. Motor strength 5/5 in all extremities. Sensory grossly intact. Cerebellar exam normal. Normal gait. Psych: Awake, alert, with orientation to person, place and time. Behavior, mood, and affect are within normal limits. Vital Signs: 08/31 23:50 BP 147 / 97; Pulse 94; Resp 16; Temp 97.6; Pulse Ox 100% ; Weight 45.81 kg; Height 5 vc1 ft. 3 in. ; Pain 4/10; 23:50 Body Mass Index 17.89 (45.81 kg, 160.02 cm) vc1 23:50 Pain Scale: Adult vc1 MDM: 09/01 00:16 Medical Screening Exam initiated [facility] 02:12 Data reviewed: vital signs, nurses notes, lab test result(s), EKG, radiologic studies, maria a plain films. Consideration of Admission/Observation Escalation of care including admission/observation considered. I considered the following discharge prescriptions or medication management in the emergency department Medications were administered in the Emergency Department. See MAR. Test considered but Not performed: X-ray: no x ray. Historians other than the Patient: EMS: ems well informed. Care significantly affected by the following chronic conditions: Diabetes, Hypertension, urinary incontinence. Counseling: I had a detailed discussion with the patient and/or guardian regarding the historical points, exam findings, and any diagnostic results supporting the discharge/admit diagnosis, lab results, radiology results, the need for outpatient follow up, for definitive care, a family practitioner. 09/01 00:17 Order name: CBC with Diff; Complete Time: : maria a 09/01 00:17 Order name: CMP; Complete Time: : maria a Administered Medications: 01:30 Drug: NS 0.9% IV 500 ml IV at bolus once; to be given as a bolus over 30 minutes Route: jb4 IV; Rate: bolus; Site: right antecubital; 02:33 Drug: Ketorolac IVP 30 mg IVP once Route: IVP; Site: right antecubital; jb4 02:33 Follow up: Response: Medication administered at discharge. jb4 Disposition Summary: 09/01/24 02:16 Discharge Ordered Notes: Location: Home maria a Problem: new maria a Symptoms: have improved maria a Condition: Stable maria a Diagnosis - Pain in right foot maria a - Pain in left foot maria a - Type 2 diabetes mellitus with hyperglycemia maria a Followup: maria a - With: Private Physician - When: 2 - 3 days - Reason: Recheck today's complaints, Continuance of care, Re-evaluation by your physician Discharge Instructions: - Discharge Summary Sheet maria a - Hyperglycemia maria a - Musculoskeletal Pain maria a - Diabetes Mellitus and Nutrition, Adult [facility] Forms: - Medication Reconciliation Form maria a - Antibiotic Education maria a - Prescription Opioid Use maria a - Patient Portal Instructions [facility] - Leadership Thank You Letter [facility] Prescriptions: - Motrin IB 200 mg Oral tablet - take 1 tablet ORAL route every 6 hours As needed as needed with food; 30 maria a tablet; Refills: 0, Product Selection Permitted Signatures: Dispatcher [employer] EDMS Salvatore Doherty MD MD cha Bryson, James, RN RN jb4 Pati Mayers RN RN vc1 Corrections: (The following items were deleted from the chart) 00:17 00:17 CBC+H.LAB.BRZ ordered. EDMS EDMS 00:17 00:17 COMPREHENSIVE METABOLIC PANEL+C.LAB.BRZ ordered. EDMS EDMS
[2024-09-01] MEDS ORDERED: KETOROLAC 30 MG/ML INJ ONE (02:27)
[2024-09-01 02:52] VITALS: BP 147/97; TEMP 97.6; O2SAT 100
== END 2024-09-01 02:38 | disposition home or self-care (01) ==
LOC: ER 23:48
DX: M79.672 Pain in left foot (principal); M79.671 Pain in right foot; E11.65 Type 2 diabetes mellitus with hyperglycemia
CPT/HCPCS: 36415; 80053; 85025; 96374; 99284; J7040

== ENCOUNTER 2025-01-14 00:52 | Emergency (ER) | payer SELFPAY ==
--- OUTSIDE RECORDS SUMMARY | 2025-01-14 01:01 | XMS REPORT | Continuity of Care Document ---
Author Name Unknown Address [address] [facility] [address] [place] [address] [facility] [place] Address [address] [facility] 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 Primary Care Physician + [phone] Doctor Unassigned, [place] Attending Clinician U Cosme Ward DO Attending Clinician [phone] Solo CHONG, Lyubov Hilton Attending Clinician [phone] Rosalie Irizarry RN Attending Clinician [phone] Miguel CHONG, Ricky Hoskins Attending Clinician + [phone] Umang Reynaga MD Attending Clinician [phone] Jerry Fields DO Attending Clinician [phone] Vimal Quiñones MD Attending Clinician [phone] Jeannette Dawn LVN Attending Clinician + [phone] PARVEZ MONROE Attending Clinician Unavailable Sergio Aponte MD Attending Clinician [phone] Bret Banda MD Attending Clinician [phone] Parvez Monroe MD Attending Clinician [phone] Lyubov Banda MD Admitting Clinician [phone] Jerry Fields DO Admitting Clinician PARVEZ MONROE Admitting Clinician Unavailable Parvez Monroe MD Admitting Clinician [phone] Problems Condition Name Condition Details Condition Category Status Onset Date Resolution Date Last Treatment Date Treating Clinician Comments Source Elevated troponin I level Elevated troponin I level Disease Active 08-14 00:00: 00 [facility] Elevated brain natriureti c peptide (BNP) level Elevated brain natriureti c peptide (BNP) level Disease Active 08-14 00:00: 00 [facility] Essential hypertensi on Essential hypertensi on Disease Active 08-14 00:00: 00 [facility] ELIEZER (acute kidney injury) ELIEZER (acute kidney injury) Disease Active 08-14 00:00: 00 [facility] Type 2 diabetes mellitus with other specified complicati on Type 2 diabetes mellitus with other specified complicati on Disease Active 08-14 00:00: 00 [facility] Hypertensi on, unspecifie d type Hypertensi on, unspecifie d type Disease Active 08-13 00:00: 00 [facility] NSTEMI (non-ST elevated myocardial infarction ) NSTEMI (non-ST elevated myocardial infarction ) Disease Active 2022-04 00:00: 00 [facility] Allergies, Adverse Reactions, Alerts Allergy Name Allergy Type Status Severity Reaction(s) Onset Date Inactive Date Treating Clinician Comments Source NO KNOWN ALLERGIE S Drug Class Active [facility] Social History Social Habit Start Date Stop Date Quantity Comments Source [facility] function 2023-08-23 00:00:00 2023-08-23 00:00:00 [facility] Alcohol intake 2023-08-22 00:00:00 2023-08-22 00:00:00 Lifetime non-drinker (finding) [facility] Alcoholic beverage intake 2023-08-22 00:00:00 2023-08-22 00:00:00 Lifetime non-drinker (finding) [facility] Tobacco use and exposure 2023-04-21 00:00:2023-04-21 00:00:00 Smokeless tobacco non-user [facility] Sex assigned at 1965 00:00:00 1965 00:00:00 [facility] Smoking Status Start Date Stop Date Source Never smoked tobacco [facility] Medications Ordered Medication Name Filled Medication Name Start Date Stop Date Current Medication? Ordering Clinician Indication Dosage Frequency Signature (SIG) Comments Components Source acarbose 25 mg tablet 08-23 00:00: 00 Yes [id number] 25mg Take 1 tablet by mouth in the morning and 1 tablet at noon and 1 tablet in the evening. Take with meals. [facility] metFORMIN 500 mg 24 hr tablet 08-23 00:00: 09-23 04:59 :00 No [id number] 500mg Take 1 tablet by mouth in the morning and 1 tablet in the evening. Take with meals. Do all this for 30 days. [facility] amLODIPine 10 mg tablet 08-23 00:00: 09-23 04:59 :00 No [id number] 10mg Take 1 tablet by mouth in the morning for 30 days. [facility] tamsulosin 0.4 mg 24 hr capsule 08-23 00:00: 00 09-23 04:59 :00 No [id number] .4mg Take 1 capsule by mouth in the morning for 30 days. [facility] levoFLOXaci n 500 mg tablet 08-23 00:00: 08-26 04:59 :00 No [id number] 500mg Take 1 tablet by mouth every 24 (twenty-fo ur) hours for 2 days. [facility] cefTRIAXone (ROCEPHIN) 1,000 mg in [...]
D uration of therapy: Once (ED) [facility] D5W IV infusion 1,000 mL 08-22 15:00: 00 08-22 16:53 :22 No 1000mL at 50 mL/hr, IV Infusion, ONCE, 1 dose, On Wed08/23/23 at 1000, Routine [facility] amLODIPine (NORVASC) tablet 5 mg 08-22 14:00: 00 Yes 5mg 5 mg, Oral, DAILY, First dose on Wed08/23/23 at 0900, Until Discontinu ed, Routine [facility] D5W 0.45% NaCl (1/2NS) IV infusion 1,000 mL 08-22 02:29: 00 08-23 17:53 :57 No 1000mL at 75 mL/hr, 1,000 mL, IV Infusion, CONTINUOUS , Starting on Wed08/22/23 at 2130, Until Wed08/24/23 at 1253, Routine [facility] D5W IV infusion 1,000 mL 08-21 21:30: 00 08-22 02:27 :22 No 1000mL at 100 mL/hr, IV Infusion, CONTINUOUS , Starting on Wed08/22/23 at 1630, Until Wed08/22/23 at 2127, Routine [facility] Sliding Scale Insulin - Lispro (HumaLOG) 08-21 21:00: 00 Yes Subcutaneo us, Q4H, First dose on Wed08/22/23 at 1600, Until Discontinu ed, Routine [facility] glucagon (GLUCAGEN DIAGNOSTIC KIT) injection 1 mg 08-21 20:17: 12 Yes 1mg 1 mg, Intramuscu lar, PRN, Starting on Wed08/22/23 at 1517, Until Discontinu ed, HAO, Blood Glucose < or = 70 mg/dL and patient is NPO, unable to swallow or has mental changes. [facility] dextrose 50 % in water (D50W) injection 25 mL 08-21 20:17: 12 Yes 25mL 25 mL, Slow IV Push, PRN, Starting on Wed08/22/23 at 1517, Until Discontinu ed, HAO, Blood Glucose < or = 70 mg/dL and patient is NPO, unable to swallow or has mental status changes. [facility] D5W IV infusion 1,000 mL 08-21 17:45: 00 08-21 20:16 :11 No 1000mL at 100 mL/hr, IV Infusion, CONTINUOUS , Starting on Wed08/22/23 at 1245, Until Wed08/22/23 at 1516, Routine [facility] tamsulosin (FLOMAX) capsule 0.4 mg 08-21 14:00: 00 Yes .4mg 0.4 mg, Oral, DAILY, First dose on Wed08/22/23 at 0900, Until Discontinu ed, Routine [facility] docusate (COLACE) capsule 100 mg 08-21 13:00: 00 Yes 100mg 100 mg, Oral, BID, First dose on Wed08/22/23 at 0800, Until Discontinu ed, Routine [facility] heparin (porcine) injection 5,000 Units 08-21 13:00: 00 Yes 5000U 5,000 Units, Subcutaneo us, Q12H, First dose on Wed08/22/23 at 0800, Until Discontinu ed, Routine [facility] D5W 0.45% NaCl (1/2NS) IV infusion 1,000 mL 08-21 06:15: 00 08-21 16:44 :38 No 1000mL at 100 mL/hr, 1,000 mL, IV Infusion, CONTINUOUS , Starting on Wed08/22/23 at 0115, Until Wed08/22/23 at 1144, Routine [facility] D5W 0.45% NaCl (1/2NS) Bolus infusion 1,000 mL 08-21 06:00: 00 08-21 06:21 :00 No 1000mL at 999 mL/hr, 1,000 mL, IV Infusion, ONCE, 1 dose, On Wed08/22/23 at 0100, Routine [facility] NaCl 0.9% (NS) bolus infusion 1,000 mL 08-21 04:15: 00 08-21 05:05 :00 No 1000mL at 999 mL/hr, 1,000 mL, IV Infusion, ONCE, 1 dose, On 08/21/23 at 2315, STAT [facility] bisacodyL (DULCOLAX) tablet 10 mg 08-21 04:02: 51 Yes 10mg 10 mg, Oral, QDAILYPRN, Starting on 08/21/23 at 2302, Until Discontinu ed, Routine, Constipati on [facility] ondansetron (ZOFRAN (PF)) injection 4 mg 08-21 04:02: 17 Yes 4mg 4 mg, Slow IV Push, Q6HPRN, Starting on 08/21/23 at 2302, Until Discontinu ed, Routine, Nausea and Vomiting (N/V) [facility] FENTanyl PF (SUBLIMAZE (PF)) injection 12.5 mcg 08-21 04:02: 09 08-22 04:01 :09 No 12.5ug 12.5 mcg, Slow IV Push, Q6HPRN, Starting on 08/21/23 at 2302, Until 08/22/23 at 2301, Routine, Pain (scale 7-10), Pain (scale 4-6) [facility] acetaminoph en (TYLENOL) tablet 650 mg 08-21 04:01: 56 Yes 650mg 650 mg, Oral, Q6HPRN, Starting on 08/21/23 at 2301, Until Discontinu ed, Routine, Pain (scale 1-3) [facility] magnesium citrate solution 296 mL 08-21 01:45: 00 08-21 01:25 :00 No 296mL 296 mL, Oral, ONCE, 1 dose, On 08/21/23 at 2045, Routine [facility] amLODIPine 5 mg tablet 08-16 00:00: 00 08-23 00:00 :00 No [id number] 5mg Take 1 tablet by mouth in the morning for 30 days. [facility] lactulose (CEPHULAC) solution 45 mL 08-15 15:45: 00 08-15 15:21 :00 No 45mL 45 mL, Oral, ONCE, 1 dose, On Wed08/16/23 at 1045, Routine [facility] amLODIPine (NORVASC) tablet 5 mg 08-15 14:00: 00 Yes 5mg 5 mg, Oral, DAILY, First dose on Wed08/16/23 at 0900, Until Discontinu ed, Routine [facility] sennosides (SENOKOT) tablet 8.6 mg 08-15 14:00: 00 Yes 8.6mg 8.6 mg, Oral, DAILY, First dose on Wed08/16/23 at 0900, Until Discontinu ed, Routine [facility] losartan (COZAAR) tablet 25 mg 08-15 14:00: 00 Yes 25mg 25 mg, Oral, DAILY, First dose (after last modificati on) on Wed08/16/23 at 0900, Until Discontinu ed, Routine [facility] docusate (COLACE) capsule 100 mg 08-15 13:00: 00 Yes 100mg 100 mg, Oral, BID, First dose on Wed08/16/23 at 0800, Until Discontinu ed, Routine [facility] lactulose (CEPHULAC) solution 30 mL 08-15 10:00: 00 08-15 09:33 :00 No 30mL 30 mL, Oral, ONCE, 1 dose, On Wed08/16/23 at 0500, Routine [facility] metFORMIN 500 mg 24 hr tablet 08-15 00:00: 00 08-23 00:00 :00 No [id number] 500mg Take 1 tablet by mouth in the morning and 1 tablet in the evening. Take with meals. Do all this for 30 days. [facility] acarbose 25 mg tablet 08-15 00:00: 00 08-23 00:00 :00 No [id number] 25mg Take 1 tablet by mouth in the morning and 1 tablet at noon and 1 tablet in the evening. Take with meals. Do all this for 30 days. [facility] pioglitazon e 15 mg tablet 08-15 00:00: 00 08-23 00:00 :00 No [id number] 15mg Take 1 tablet by mouth in the morning for 30 days. [facility] tamsulosin 0.4 mg 24 hr capsule 08-15 00:00: 00 08-23 00:00 :00 No [id number] .4mg Take 1 capsule by mouth in the morning for 30 days. [facility] losartan 25 mg tablet 08-15 00:00: 00 08-23 00:00 :00 No [id number] 25mg Take 1 tablet by mouth in the morning for 30 days. [facility] glipiZIDE (GLUCOTROL) tablet 5 mg 08-14 21:30: 00 Yes 5mg 5 mg, Oral, BIDAC, First dose on 08/15/23 at 1630, Until Discontinu ed, Routine [facility] KCL (KLOR-CON M20) tablet 40 mEq 08-14 21:30: 00 08-14 21:21 :00 No 40meq 40 mEq, Oral, ONCE, 1 dose, On 08/15/23 at 1630, Routine [facility] pioglitazon e (ACTOS) tablet 7.5 mg 08-14 17:00: 00 08-15 12:47 :51 No 7.5mg 7.5 mg, Oral, DAILY, First dose on 08/15/23 at 1200, Until Discontinu ed, Routine [facility] tamsulosin (FLOMAX) capsule 0.4 mg 08-14 15:49: 00 Yes .4mg 0.4 mg, Oral, DAILY, First dose on 08/15/23 at 1100, Until Discontinu ed, Routine [facility] amLODIPine (NORVASC) tablet 10 mg 08-14 14:00: 00 08-14 15:51 :30 No 10mg 10 mg, Oral, DAILY, First dose on 08/15/23 at 0900, Until Discontinu ed, Routine [facility] heparin (porcine) injection 5,000 Units 08-14 03:00: 00 08-14 06:07 :44 No 5000U 5,000 Units, Subcutaneo us, Q8H, First dose on 08/14/23 at 2200, Until Discontinu ed, Routine [facility] Sliding Scale Insulin - Lispro (HumaLOG) 08-14 02:00: 00 08-14 18:06 :14 No Subcutaneo us, TID MEALS+HS, First dose on 08/14/23 at 2100, Until Discontinu ed, Routine [facility] glucagon (GLUCAGEN DIAGNOSTIC KIT) injection 1 mg 08-14 00:36: 37 Yes 1mg 1 mg, Intramuscu lar, PRN, Starting on 08/14/23 at 1936, Until Discontinu ed, HAO, Blood Glucose < or = 70 mg/dL and patient is NPO, unable to swallow or has mental changes. [facility] dextrose 50 % in water (D50W) injection 25 mL 08-14 00:36: 37 Yes 25mL 25 mL, Slow IV Push, PRN, Starting on 08/14/23 at 1936, Until Discontinu ed, HAO, Blood Glucose < or = 70 mg/dL and patient is NPO, unable to swallow or has mental status changes. [facility] acetaminoph en (TYLENOL) tablet 650 mg 08-14 00:36: 24 Yes 650mg 650 mg, Oral, Q6HPRN, Starting on 08/14/23 at 1936, Until Discontinu ed, Routine, Pain (scale 1-3) [facility] aspirin chewable tablet 324 mg 08-13 23:15: 00 08-13 22:56 :00 No [id number] 324mg 324 mg, Oral, ONCE, 1 dose, On 08/14/23 at 1815, [facility] lidocaine 2% viscous (LIDOCAINE VISCOUS) 2 % solution 15 mL 08-13 23:00: 00 08-13 22:10 :00 No [id number] 15mL 15 mL, Oral, ONCE, 1 dose, On 08/14/23 at 1800, Routine [facility] KCL (KLOR-CON M20) tablet 20 mEq 08-13 22:30: 00 08-13 22:59 :00 No [id number] 20meq 20 mEq, Oral, ONCE, 1 dose, On 08/14/23 at 1730, [facility] metoprolol tartrate (LOPRESSOR) tablet 50 mg 08-13 22:00: 00 08-13 22:58 :00 No [id number] 50mg 50 mg, Oral, ONCE, 1 dose, On 08/14/23 at 1700, [facility] iopamidol (ISOVUE 370-500 mL) injection 80 mL 08-13 21:30: 00 08-13 21:45 :00 No [id number] 80mL 80 mL, Intravenou s, ONCE, 1 dose, On 08/14/23 at 1645, Routine [facility] acetaminoph en (TYLENOL) tablet 650 mg 08-13 21:15: 00 08-13 22:57 :00 No [id number] 650mg 650 mg, Oral, ONCE, 1 dose, On 08/14/23 at 1615, [facility] amLODIPine (NORVASC) tablet 5 mg 08-13 21:15: 00 08-13 22:58 :00 No [id number] 5mg 5 mg, Oral, ONCE, 1 dose, On 08/14/23 at 1615, [facility] NaCl 0.9% (NS) bolus infusion 1,000 mL 08-13 21:15: 00 08-13 21:50 :00 No [id number] 1000mL at 999 mL/hr, 1,000 mL, IV Infusion, ONCE, 1 dose, On 08/14/23 at 1615, HAO [facility] insulin NPH (HUMULIN N) injection 9 Units 2022-04 14:00: 00 Yes 9U 9 Units, Subcutaneo us, QAM WITH BREAKFAST, First dose (after last modificati on) on 04/24/23 at 0800, Until Discontinu ed, Routine [facility] losartan 25 mg tablet 2022-04 00:00: 00 08-15 00:00 :00 No [id number] 25mg Take 1 tablet by mouth in the morning. [facility] tamsulosin (FLOMAX) 0.4 mg 24 hr capsule 2022-04 00:00: 00 08-15 00:00 :00 No [id number] .4mg Take 1 capsule by mouth in the morning. [facility] metFORMIN 500 mg tablet 2022-04 00:00: 00 05-23 05:59 :00 No [id number] Take 1 tablet by mouth 2 (two) times daily with meals for 7 days, THEN 2 tablets 2 (two) times daily with meals for 21 days. [facility] insulin lispro (human) (HumaLOG U-100) injection 3 Units 2022-04 23:00: 00 Yes 3U 3 Units, Subcutaneo us, TID MEALS, First dose (after last modificati on) on Wed04/23/23 at 1700, Until Discontinu ed, Routine [facility] insulin NPH (HUMULIN N) injection 5 Units 2022-04 23:00: 00 Yes 5U 5 Units, Subcutaneo us, QPM, First dose (after last modificati on) on Wed04/23/23 at 1700, Until Discontinu ed, Routine [facility] losartan (COZAAR) tablet 25 mg 2022-04 15:00: 00 Yes 25mg 25 mg, Oral, DAILY, First dose on Wed04/23/23 at 0900, Until Discontinu ed, Routine [facility] Potassium Bicarb-Citr ic Acid (EFFER-K) effervescen t tablet 40 mEq 2022-04 13:00: 00 04-23 13:33 :00 No 40meq 40 mEq, Oral, ONCE, 1 dose, On Wed04/23/23 at 0700, Routine [facility] ramelteon (ROZEREM) tablet 8 mg 2022-04 10:45: 00 04-23 10:51 :00 No 8mg 8 mg, Oral, ONCE NOW, 1 dose, On Wed04/23/23 at 0500, Routine [facility] Blood-Gluco se Meter (ACCU-CHEK GUIDE GLUCOSE METER) [facility] [place]04 00:00: 00 Yes [id number] Use as directed [facility] lancets 33 gauge [facility] [place]-04 00:00: 00 Yes [id number] Use as directed [facility] blood sugar diagnostic (ACCU-CHEK GUIDE TEST STRIPS) strip 2022-04 00:00: 00 Yes [id number] Use as directed [facility] pioglitazon e 15 mg tablet 2022-04 00:00: 00 08-15 00:00 :00 No [id number] 7.5mg Take 0.5 tablets by mouth in the morning. [facility] acarbose 25 mg tablet 2022-04 00:00: 00 08-15 00:00 :00 No [id number] 25mg Take 1 tablet by mouth in the morning and 1 tablet at noon and 1 tablet in the evening. Take with meals. [facility] atorvastati n 80 mg tablet 2022-04 00:00: 00 05-24 05:59 :00 No [id number] 80mg Take 1 tablet by mouth at bedtime for 30 days. [facility] glipiZIDE 5 mg tablet 2022-04 00:00: 00 05-24 05:59 :00 No [id number] 5mg Take 1 tablet by mouth 2 (two) times daily before breakfast and dinner for 30 days. [facility] enoxaparin (LOVENOX) injection 40 mg 2022-04 15:00: 00 Yes 40mg 40 mg, Subcutaneo us, DAILY, First dose on Wed04/22/23 at 0900, Until Discontinu ed, Routine [facility] insulin NPH (HUMULIN N) injection 8 Units 2022-04 14:00: 00 04-23 19:10 :37 No 8U 8 Units, Subcutaneo us, QAM WITH BREAKFAST, First dose on Wed04/22/23 at 0800, Until Discontinu ed, Routine [facility] insulin NPH (HUMULIN N) injection 4 Units 2022-04 23:00: 00 04-23 19:10 :37 No 4U 4 Units, Subcutaneo us, QPM, First dose on Wed04/21/23 at 1700, Until Discontinu ed, Routine [facility] insulin lispro (human) (HumaLOG U-100) injection 2 Units 2022-04 23:00: 00 04-23 19:10 :37 No 2U 2 Units, Subcutaneo us, TID MEALS, First dose (after last modificati on) on Wed04/21/23 at 1700, Until Discontinu ed, Routine [facility] NaCl 0.9% (NS) IV infusion 250 mL 2022-04 21:15: 00 04-22 20:03 :10 No [id number] 250mL at 20 mL/hr, IV Infusion, CONTINUOUS , Starting on Wed04/21/23 at 1515, Until Wed04/22/23 at 1403, Routine
To keep vein open
[facility] perflutren lipid microsphere s (DEFINITY) injection 2 mL 2022-04 21:00: 00 04-21 20:15 :00 No [id number] 2mL 2 mL, IV Push, ONCE, 1 dose, On Wed04/21/23 at 1500, Routine [facility] atropine injection 1 mg 2022-04 21:00: 00 04-21 20:44 :00 No [id number] 1mg 1 mg, Slow IV Push, ONCE, 1 dose, On Wed04/21/23 at 1500, Routine [facility] DOBUTamine (DOBUTREX) 250 mg/250 mL RTU infusion 2022-04 20:13: 51 04-22 20:03 :10 No [id number] 5ug/kg/ min 5 mcg/kg/min ?59 kg (17.7 [...] the Dobutamine infusion. (see Adjunctive Therapy)<b r> [facility] perflutren protein-A microsphr (OPTISON) injection 3 mL 2022-04 17:15: 00 04-21 15:22 :00 No [id number] 3mL 3 mL, IV Push, ONCE, 1 dose, On Wed04/21/23 at 1115, Routine [facility] potassium chloride in water 10 mEq/100 mL RTU 10 mEq 2022-04 17:00: 00 04-21 20:59 :00 No 10meq 10 mEq, IV Piggyback, Q1H, 4 doses, First dose (after last reorder) on Wed04/21/23 at 1100, Last dose on Wed04/21/23 at 1400, Administer over 60 Minutes, 100 mL [facility] tamsulosin (FLOMAX) capsule 0.4 mg 2022-04 15:00: 00 Yes .4mg 0.4 mg, Oral, DAILY, First dose on Wed04/21/23 at 0900, Until Discontinu ed, Routine [facility] aspirin chewable tablet 81 mg 2022-04 15:00: 00 04-22 16:28 :38 No 81mg 81 mg, Oral, DAILY, First dose on Wed04/21/23 at 0900, Until Discontinu ed, Routine [facility] aspirin tablet 325 mg 2022-04 15:00: 00 04-21 06:21 :21 No 325mg 325 mg, Oral, DAILY, First dose on Wed04/21/23 at 0900, Until Discontinu ed, Routine [facility] Sliding Scale Insulin - Lispro (HumaLOG) 2022-04 14:00: 00 Yes Subcutaneo us, TID MEALS+HS, First dose on Wed04/21/23 at 0800, Until Discontinu ed, Routine [facility] magnesium sulfate in water 2 gram/50 mL (4 %) infusion 2 g 2022-04 12:30: 00 04-21 15:11 :00 No 2g 2 g, IV Piggyback, Administer over 60 Minutes, ONCE, 1 dose, On Wed04/21/23 at 0630, Routine [facility] Potassium Bicarb-Citr ic Acid (EFFER-K) effervescen t tablet 40 mEq 2022-04 12:30: 00 04-21 12:36 :00 No 40meq 40 mEq, Oral, ONCE, 1 dose, On Wed04/21/23 at 0630, Routine [facility] insulin glargine (LANTUS U-100) injection 9 Units 2022-04 07:45: 00 04-21 21:08 :08 No .15U/kg /d 9 Units (rounded from 8.745 Units = 0.15 Units/kg/d ay ?58.3 kg), Subcutaneo us, QHS, First dose (after last modificati on) on Wed04/21/23 at 0145, Until Discontinu ed, Routine [facility] atorvastati n (LIPITOR) tablet 80 mg 2022-04 06:30: 00 Yes 80mg 80 mg, Oral, QHS, First dose on Wed04/21/23 at 0030, Until Discontinu ed, Routine [facility] dextrose 50 % in water (D50W) injection 25 mL 2022-04 06:24: 50 Yes 25mL 25 mL, Slow IV Push, PRN, Starting on Wed04/21/23 at 0024, Until Discontinu ed, HAO, Blood Glucose < or = 70 mg/dL and patient is NPO, unable to swallow or has mental status changes. [facility] acetaminoph en (TYLENOL) tablet 650 mg 2022-04 05:53: 21 Yes 650mg 650 mg, Oral, Q6HPRN, Starting on Wed04/20/23 at 2353, Until Discontinu ed, Routine, Pain (scale 1-3) [facility] NaCl 0.9% (NS) bolus infusion 1,000 mL 2022-04 04:00: 00 04-21 03:45 :00 No 1000mL at 999 mL/hr, 1,000 mL, IV Infusion, ONCE, 1 dose, On Wed04/20/23 at 2200, STAT [facility] clopidogreL (PLAVIX) 300 mg tablet 300 mg 2022-04 03:30: 00 04-21 02:50 :00 No 300mg 300 mg, Oral, ONCE, 1 dose, On Wed04/20/23 at 2130, HAO [facility] HEPARIN SODIUM (PORCINE) 1,000 UNIT/ML BOLUS ACS ORDER SET 2022-04 02:45: 00 04-21 02:53 :00 No 60U/kg 3,540 Units (60 Units/kg ?59 kg), IV Push, ONCE, 1 dose, On Wed04/20/23 at 204, HAO [facility] heparin 25,000 Units/250 mL (Premixed [...] Rang e, Dosing and Testing: &nbs p;FOR [facility], AND [facility] ONLY &nbs p; - aPTT < [...] INITIAL BOLUS OR INITIAL INFUSION RATE.
[facility] Vital Signs Vital Name Observation Time Observation Value Comments S ource Systolic blood pressure 2023-08-24 13:02:00 150 mm[Hg] [facility] Diastolic blood pressure 2023-08-24 13:02:00 88 mm[Hg] [facility] Heart rate 2023-08-24 13:02:00 79 /min [facility] Body temperature 2023-08-24 13:02:00 36.44 Deya [facility] Respiratory rate 2023-08-24 13:02:00 14 /min [facility] Oxygen saturation in Arterial blood by Pulse oximetry 2023-08-24 13:02:00 98 /min [facility] Body weight 2023-08-24 08:43:00 58.469 kg [facility] BMI 2023-08-24 08:43:00 22.83 kg/m2 [facility] Body height 2023-08-22 04:52:00 160 cm [facility] Systolic blood pressure 2023-08-16 16:53:00 154 mm[Hg] [facility] Diastolic blood pressure 2023-08-16 16:53:00 94 mm[Hg] [facility] Heart rate 2023-08-16 16:53:00 82 /min [facility] Body temperature 2023-08-16 16:53:00 36.61 Deya [facility] Respiratory rate 2023-08-16 16:53:00 16 /min [facility] Oxygen saturation in Arterial blood by Pulse oximetry 2023-08-16 16:53:00 99 /min [facility] Body weight 2023-08-16 09:56:00 56.473 kg [facility] BMI 2023-08-16 09:56:00 22.05 kg/m2 [facility] Body height 2023-08-15 04:07:00 160 cm [facility] Systolic blood pressure 2023-04-23 18:11:00 141 mm[Hg] [facility] Diastolic blood pressure 2023-04-23 18:11:00 80 mm[Hg] [facility] Heart rate 2023-04-23 18:11:00 101 /min [facility] Body temperature 2023-04-23 18:11:00 35.89 Deya [facility] Respiratory rate 2023-04-23 18:11:00 18 /min [facility] Oxygen saturation in Arterial blood by Pulse oximetry 2023-04-23 18:11:00 98 /min [facility] Body weight 2023-04-22 09:57:00 57.561 kg [facility] BMI 2023-04-22 09:57:00 22.48 kg/m2 [facility] Body height 2023-04-21 20:00:00 160 cm [facility] Procedures Procedure Date / Time Performed Performing Clinician Source PATIENT AGREEMENTS AND CONTRACTS 2023-11-12 20:14:31 Doctor Unassigned, [place] [facility] [facility] POCT GLUCOSE (AUTOMATED) 2023-08-24 16:13:00 Jami Banda [facility] POCT GLUCOSE (AUTOMATED) 2023-08-24 12:34:00 Jami Banda [facility] BASIC METABOLIC PANEL (NA, K, CL, CO2, GLUCOSE, BUN, CREATININE, CA) 2023-08-24 08:42:00 Jerry Fields [facility] CBC WITH DIFF 2023-08-24 08:42:00 Jerry Fields [facility] POCT GLUCOSE (AUTOMATED) 2023-08-24 05:46:00 Jami Banda [facility] BASIC METABOLIC PANEL (NA, K, CL, CO2, GLUCOSE, BUN, CREATININE, CA) 2023-08-24 01:37:00 Jerry Fields [facility] POCT GLUCOSE (AUTOMATED) 2023-08-24 01:27:00 Jami Banda [facility] POCT GLUCOSE (AUTOMATED) 2023-08-23 21:29:00 Jami Banda [facility] BASIC METABOLIC PANEL (NA, K, CL, CO2, GLUCOSE, BUN, CREATININE, CA) 2023-08-23 17:41:00 Jerry Fields [facility] POCT GLUCOSE (AUTOMATED) 2023-08-23 16:42:00 Jami Banda [facility] POCT GLUCOSE (AUTOMATED) 2023-08-23 12:36:00 Jami Banda [facility] POCT GLUCOSE (AUTOMATED) 2023-08-23 09:09:00 Jami Banda. [facility] MAGNESIUM 2023-08-23 08:23:00 Jerry Fields [facility] BASIC METABOLIC PANEL (NA, K, CL, CO2, GLUCOSE, BUN, CREATININE, CA) 2023-08-23 08:23:00 Jerry Fields [facility] CBC WITH DIFF 2023-08-23 08:23:00 Donnie, Jerry [facility] POCT GLUCOSE (AUTOMATED) 2023-08-23 04:52:00 Jami Banda [facility] POCT GLUCOSE (AUTOMATED) 2023-08-23 00:42:00 Jami Banda [facility] BASIC METABOLIC PANEL (NA, K, CL, CO2, GLUCOSE, BUN, CREATININE, CA) 2023-08-23 00:38:00 Jerry Fields [facility] POCT GLUCOSE (AUTOMATED) 2023-08-22 21:18:00 Jami Banda [facility] URIC ACID 2023-08-22 19:21:00 Alyssa [facility] PROTEIN CREAT RATIO URINE RANDOM 2023-08-22 19:21:00 Alyssa Cain [facility] CORTISOL AM 2023-08-22 19:20:00 Alyssa [facility] BASIC METABOLIC PANEL (NA, K, CL, CO2, GLUCOSE, BUN, CREATININE, CA) 2023-08-22 13:21:00 Lyubov Banda [facility] LACTIC ACID WHOLE BLOOD 2023-08-22 09:16:00 Loreta Banda mmad [facility] MAGNESIUM 2023-08-22 08:30:00 Lyubov Banda [facility] TROPONIN I 2023-08-22 08:30:00 Lyubov Banda [facility] CBC WITH DIFF 2023-08-22 08:30:00 [facility] 2023-08-22 08:30:00 Lyubov Banda [facility] PHOSPHORUS 2023-08-22 04:01:00 Lyubov Banda [facility] BASIC METABOLIC PANEL (NA, K, CL, CO2, GLUCOSE, BUN, CREATININE, CA) 2023-08-22 04:01:00 Cosme Cardona [facility] URINALYSIS 2023-08-22 01:52:00 Cardona, [facility] CT ABDOMEN PELVIS WO CONTRAST 2023-08-22 01:26:17 Singer [facility] CREATINE KINASE 2023-08-22 01:24:00 Lyubov Banda [facility] LIPASE 2023-08-22 01:24:00 Singer [facility] COMP. METABOLIC PANEL ([id number]) 2023-08-22 01:24:00 Singer [facility] CBC WITH DIFF 2023-08-22 01:24:00 Singer [facility] POCT GLUCOSE (AUTOMATED) 2023-08-16 21:51:00 Yue Fields [facility] POCT GLUCOSE (AUTOMATED) 2023-08-16 16:54:00 Yue Fields [facility] POCT GLUCOSE (AUTOMATED) 2023-08-16 12:45:00 Yue Fields [facility] POCT GLUCOSE (AUTOMATED) 2023-08-16 02:06:00 Yue Fields [facility] POCT GLUCOSE (AUTOMATED) 2023-08-15 21:29:00 Yue Fields [facility] POCT GLUCOSE (AUTOMATED) 2023-08-15 16:39:00 Yue Fields [facility] POCT GLUCOSE (AUTOMATED) 2023-08-15 13:08:00 Yue Fields [facility] TROPONIN I 2023-08-15 10:41:00 [facility] BASIC METABOLIC PANEL (NA, K, CL, CO2, GLUCOSE, BUN, CREATININE, CA) 2023-08-15 10:41:00 Shanice [facility] CBC WITH DIFF 2023-08-15 10:41:00 Shanice [facility] PROSTATIC SPECIFIC ANTIGEN 2023-08-15 05:32:00 Shanice [facility] TROPONIN I 2023-08-15 05:32:00 Shanice [facility] POCT GLUCOSE (AUTOMATED) 2023-08-15 04:03:00 Yue Fields [facility] URINALYSIS 2023 22:15:[address] [facility] XR CHEST 1 VW 2023 21:46:[address] [facility] [address] ABDOMEN PELVIS W CONTRAST 2023 21:34:[address] [facility] CT TRAUMA HEAD WO CONTRAST 2023 21:33:20 Rosmery [facility] HB ECG ROUTINE & RHYTHM STRIP 2023 21:10:12 Rosmery [facility] PHOSPHORUS 2023 20:47:[address] [facility] CREATINE KINASE 2023 20:47:00 [facility]23 20:47:[address] [facility] MAGNESIUM 2023 20:47:[address] [facility] BETA HYDROXY-BUTYRATE 2023 20:47:00 Farida Reynaga [facility] TROPONIN I 2023 20:47:[address] [facility] COMP. METABOLIC PANEL ([id number]) 2023 20:47:00 Rosmery [facility] CBC WITH DIFF 2023 20:47:00 Rosmery [facility] GLYCOSYLATED HEMOGLOBIN (A1C) 2023 20:47:00 Jerry Fields [facility] N-TERMINAL PRO-BNP 2023 20:47:00 Michael Reynaga [facility] ACUTE CARE VENOUS BLOOD GAS 2023 20:46:00 Rosmery [facility] LACTIC ACID WHOLE BLOOD 2023 20:46:00 Kian Reynaga [facility] POCT GLUCOSE(AGE >30DAYS) 2023 20:26:00 Rosmery [facility] POCT GLUCOSE (AUTOMATED) 2023 20:23:00 Dalmedo, [facility] POCT GLUCOSE (AUTOMATED) 2023-04-23 18:09:00 Brien Banda [facility] POCT GLUCOSE (AUTOMATED) 2023-04-23 15:32:00 Brien Banda [facility] MAGNESIUM 2023-04-23 09:09:00 Chet Echavarria [facility] BASIC METABOLIC PANEL (NA, K, CL, CO2, GLUCOSE, BUN, CREATININE, CA) 2023-04-23 09:09:00 Chet Echavarria [facility] POCT GLUCOSE (AUTOMATED) 2023-04-23 02:56:00 [facility] 2023-04-23 00:32:00 Solo [facility] POCT GLUCOSE (AUTOMATED) 2023-04-22 22:43:00 Solo [facility] POCT GLUCOSE (AUTOMATED) 2023-04-22 20:36:00 Solo [facility] POCT GLUCOSE (AUTOMATED) 2023-04-22 17:44:00 Solo [facility] POCT GLUCOSE (AUTOMATED) 2023-04-22 13:41:00 Solo [facility] MAGNESIUM 2023-04-22 10:37:00 Daja Aaliyah [facility] BASIC METABOLIC PANEL (NA, K, CL, CO2, GLUCOSE, BUN, CREATININE, CA) 2023-04-22 10:37:00 Aaliyah Farnsworth [facility] CBC WITH DIFF 2023-04-22 10:37:00 Daja Aaliyah [facility] POCT GLUCOSE (AUTOMATED) 2023-04-22 03:32:00 Solo [facility] POCT GLUCOSE (AUTOMATED) 2023-04-22 01:34:00 Solo [facility] COMPLETE ECHOCARDIOGRAM DOBUTAMINE STRESS TEST W CONTRAST 2023-04-21 21:15:00 [facility] 2023-04-21 17:36:00 Banda, [facility] ACTIVATED PARTIAL THRMPLAS JERMAINE 2023-04-21 16:47:00 Sergio Aponte [facility] TRANSTHORACIC ECHO (TTE) COMPLETE W/ CONTRAST 2023-04-21 15:26:00 Kylie Fuchs Noel [facility] TROPONIN I 2023-04-21 12:39:00 Víctor Fuchs amncyue [facility] POCT GLUCOSE (AUTOMATED) 2023-04-21 09:39:00 Brien Banda [facility] MAGNESIUM 2023-04-21 09:10:00 Víctor Fuchs honoluluyue [facility] BASIC METABOLIC PANEL (NA, K, CL, CO2, GLUCOSE, BUN, CREATININE, CA) 2023-04-21 09:10:00 Tavia Fuchsmad [facility] LIPID PANEL ([id number])(TOTAL CHOLESTEROL, TRIGLYCERIDES, HDL) 2023-04-21 09:10:00 Tavia Fuchsmad [facility] CBC WITH DIFF 2023-04-21 09:10:00 Víctor Fuchs honoluluyue [facility] ACTIVATED PARTIAL THRMPLAS JERMAINE 2023-04-21 09:10:00 Sergio Aponte [facility] XR CHEST 1 VW 2023-04-21 06:53:47 Víctor Fuchs amncyue [facility] TROPONIN I 2023-04-21 06:32:00 Víctor Fuchs honoluluyue [facility] IRON PANEL 2023-04-21 06:32:00 Víctor Fuchs honoluluyue [facility] N-TERMINAL PRO-BNP 2023-04-21 06:32:00 Kylie Fuchs [facility] CRITICAL CARE 2023-04-21 02:54:15 Sergio Aponte [facility] PROTHROMBIN TIME / INR 2023-04-21 02:44:00 Enrique Aponte [facility] ACTIVATED PARTIAL THRMPLAS JERMAINE 2023-04-21 02:44:00 Sergio Aponte [facility] URINALYSIS 2023-04-21 02:33:00 [facility] PROTEIN CREAT RATIO URINE RANDOM 2023-04-21 02:33:00 Kylie Fuchs [facility] URINE DRUG (IMMUNOASSAY) - COMPREHENSIVE DRUG SCREEN W/O REFLEX 2023-04-21 02:33:00 Sergio Aponte [facility] PHOSPHORUS 2023-04-21 01:55:00 Víctor Fuchs Noel [facility] FERRITIN SERUM 2023-04-21 01:55:00 Víctor Fuchs [facility] TROPONIN I 2023-04-21 01:55:00 [facility] THYROID STIMULATING HORMONE 2023-04-21 01:55:00 Kylie Fuchs Noel [facility] COMP. METABOLIC PANEL ([id number]) 2023-04-21 01:55:00 Sergio Aponte [facility] ETHANOL 2023-04-21 01:55:00 Sergio Aponte [facility] CBC WITH DIFF 2023-04-21 01:55:00 Sergio Aponte [facility] GLYCOSYLATED HEMOGLOBIN (A1C) 2023-04-21 01:55:00 Kylie Fuchs Noel [facility] POCT GLUCOSE (AUTOMATED) 2023-04-21 01:54:00 Yue Aponte [facility] EKG-12 LEAD 2023-04-21 01:51:41 Bret Banda [facility] Encounters Start Date/Time End Date/Time Encounter Type Admission Type Attending Clinicians Care Facility Care Department Encounter ID Source 2023-11-12 00:00:00 2024-06-10 07:16:20 Orders Only Doctor Unassigned, [place] Doctor Unassigned, [place] [id number] 350.1.13.10 4.2.7.2.686 [id number] [facility] 2023-08-21 19:47:00 2023-08-24 16:32:00 Hospital Encounter Cosme Cardona Mohammad A. [facility] 1.2840.114 350.1.13.10 4.2.7.2.686 [id number] [facility] 2023-08-20 00:00:00 2023-08-20 00:00:00 Patient Outreach Rosalie Irizarry LYNN BAEZ 1.2840.114 350.1.13.10 4.2.7.2.686 [id number] [facility] 2023-08-17 00:00:00 2023-08-17 00:00:00 Telephone Ricky Rivera [facility] 1.0.114 350.1.13.10 4.2.7.2.686 [id number] [facility] 2023 14:42:00 2023-08-16 18:40:00 Hospital Encounter Umang Reynaga [place], Jelani [facility] 1.0.114 350.1.13.10 4.2.7.2.686 [id number] [facility] 2023-04-27 00:00:00 2023-04-27 00:00:00 Transition of Care López Jeannette LYNN BAEZ 1.840.114 350.1.13.10 4.2.7.2.686 [id number] [facility] 2023-04-20 19:48:00 2023-04-23 19:54:00 Inpatient PARVEZ NUNEZ [facility] [id number] [facility] 2023-04-20 19:48:00 2023-04-23 19:54:00 Hospital Encounter Sergio Aponte Rizwan Dacso, Matthew M [facility] 1.840.114 350.1.13.10 4.2.7.2.686 [id number] [facility] Results Test Description Test Time Test Comments Results Resul t Comments Source PATIENT AGREEMENTS AND CONTRACTS 2023-11-12 20:14:31 [facility] by an unspecified provider[facility] 12:35:27* Test Item Value Reference Range Interpretation Comme nts POCT GLU (test code = 0890037922) 204 mg/dL 70-110 H Lab Interpretation (test cod e = 21836-5) Abnormal [facility] Metabolic Panel (NA, K, CL, CO2, GLUCOSE, BUN, CREATININE, CA)2023-08-24 09:45:39* Test Item Value Reference Range Interpretation Comme nts NA (test code = 7825841034) 133 mmol/L 135-145 L K (test code = 3568813562) 3.7 mmol/L 3.5-5.0 CL (test code = 3057560851) 98 mmol/L 98-108 CO2 TOTAL (test code = 3424732626) 27 mmol/L 23-31 AGAP (test code = 4613605860) 8 2-16 BUN (test code = 6355492964) 13 mg/dL 7-23 GLUCOSE (test code = 2555783723) 188 mg/dL 70-110 H CREATININE (test code = 2160-0) 0.63 mg/dL 0.60-1.25 CALCIUM (test code = 8186479058) 9.4 mg/dL 8.6-10.6 eGFR (test code = 00877-3) 111.6 mL/min/1.73m2 CKD-EPI eGFR (2020). Assuming creatinine has been stable day-to-day for at least three months, the eGFR indicates Category G1 (>= 90 mL/min/1.73 m2) Lab Interpretation (test code = 11978-0) [facility] [id number] 09:21:26* Test Item Value Reference Range Interpretation [...] g/dL 31.2-35.0 H RDW-SD (test code = 60700-5) 36.9 fL 38.5-51.6 L RDW-CV (test code = 788-0) 11.6 % 12.1-15.4 L PLT (test code = 777-3) 407 150-328 H MPV (test code = 97955-1) 9.5 fL 9.8-13.0 L NRBC/100 WBC (test code = 8558174688) 0.0 0.0-10.0 NRBC x10^3 (test code = 2419431903) See_Comment [Automated messa ge] The system which generated this result transmitted reference range: 10*3/?L. The reference range was not used to interpret this result as normal/abnormal. GRAN MAT (NEUT) % (test code = 770-8) 63.1 % IMM GRAN % (test code = 6976658322) 0.30 % LYMPH % (test code = 736-9) 21.1 % MONO % (test code = 5905-5) 8.3 % EOS % (test code = 713-8) 6.5 % BASO % (test code = 706-2) 0.7 % GRAN MAT x10^3(ANC) (test code = 2481201022) 3.71 10*3/uL 1.99-6.95 IMM GRAN x10^3 (test code = 8536587334) 0.00-0.06 LYMPH x10^3 (test code = 731-0) 1.24 10*3/uL 1.09-3.23 MONO x10^3 (test code = 742-7) 0.49 10*3/uL 0.36-1.02 EOS x10^3 (test code = 711-2) 0.38 10*3/uL 0.06-0.53 BASO x10^3 (test code = 704-7) 0.04 10*3/uL 0.01-0.09 Lab Interpretation (test code = 14801-7) Abnormal [facility] GLUCOSE (AUTOMATED)2023-08-24 05:47:46* Test Item Value Reference Range Interpretation Comme [facility] POCT GLU (test code = 2849677878) 126 mg/dL 70-110 H Lab Interpretation (test cod e = 00195-7) Abnormal [facility] Metabolic Panel (NA, K, CL, CO2, GLUCOSE, BUN, CREATININE, CA)2023-08-24 02:27:27* Test Item Value Reference Range Interpretation Comme nts NA (test code = 3739392700) 129 mmol/L 135-145 L K (test code = 6844537806) 3.9 mmol/L 3.5-5.0 CL (test code = 2009087436) 96 mmol/L 98-108 L CO2 TOTAL (test code = 5155901004) 29 mmol/L 23-31 AGAP (test code = 2983104783) 4 2-16 BUN (test code = 9102157967) 14 mg/dL 7-23 GLUCOSE (test code = 0311370732) 185 mg/dL 70-110 H CREATININE (test code = 2160-0) 0.56 mg/dL 0.60-1.25 L CALCIUM (test code = 1611010585) 9.2 mg/dL 8.6-10.6 eGFR (test code = 18060-8) 115.7 mL/min/1.73m2 CKD-EPI eGFR (2020). Assuming creatinine has been stable day-to-day for at least three months, the eGFR indicates Category G1 (>= 90 mL/min/1.73 m2) Lab Interpretation (test code = 04431-8) Abnormal [facility] GLUCOSE (AUTOMATED)2023-08-24 01:28:28* Test Item Value Reference Range Interpretation Comme [facility] POCT GLU (test code = 4045234604) 210 mg/dL 70-110 H Lab Interpretation (test cod e = 39482-9) Abnormal [facility] GLUCOSE (AUTOMATED)2023-08-23 21:30:04* Test Item Value Reference Range Interpretation Comme nts POCT GLU (test code = 1027998970) 149 mg/dL 70-110 H Lab Interpretation (test cod e = 29138-9) Abnormal [facility] GLUCOSE (AUTOMATED)2023-08-23 16:45:20* Test Item Value Reference Range Interpretation Comme nts POCT GLU (test code = 5685954645) 147 mg/dL 70-110 H Lab Interpretation (test cod e = 18232-3) Abnormal [facility] GLUCOSE (AUTOMATED)2023-08-23 12:36:56* Test Item Value Reference Range Interpretation Comme nts POCT GLU (test code = 0307283748) 131 mg/dL 70-110 H Lab Interpretation (test cod e = 03202-1) Abnormal [facility] GLUCOSE (AUTOMATED)2023-08-23 09:17:23* Test Item Value Reference Range Interpretation Comme nts POCT GLU (test code = 1489696469) 154 mg/dL 70-110 H Lab Interpretation (test cod e = 79617-1) Abnormal [facility] GLUCOSE (AUTOMATED)2023-08-23 05:03:01* Test Item Value Reference Range Interpretation Comme nts POCT GLU (test code = 3768652189) 183 mg/dL 70-110 H Lab Interpretation (test cod e = 62733-4) Abnormal [facility] Metabolic Panel (NA, K, CL, CO2, GLUCOSE, BUN, CREATININE, CA)2023-08-23 01:49:58* Test Item Value Reference Range Interpretation Comme nts NA (test code = 9855037206) 132 mmol/L 135-145 L K (test code = 6673268467) 4.1 mmol/L 3.5-5.0 CL (test code = 0743690607) 101 mmol/L 98-108 CO2 TOTAL (test code = 3780729258) 28 mmol/L 23-31 AGAP (test code = 8849881603) 3 2-16 BUN (test code = 7455369748) 17 mg/dL 7-23 GLUCOSE (test code = 4072989300) 149 mg/dL 70-110 H CREATININE (test code = 2160-0) 0.97 mg/dL 0.60-1.25 CALCIUM (test code = 9457845825) 8.4 mg/dL 8.6-10.6 L eGFR (test code = 92561-0) 91.6 mL/min/1.73m2 CKD-EPI eGFR (2020). Assuming creatinine has been stable day-to-day for at least three months, the eGFR indicates Category G1 (>= 90 mL/min/1.73 m2) Lab Interpretation (test code = 77107-0) Abnormal [facility] GLUCOSE (AUTOMATED)2023-08-23 00:43:06* Test Item Value Reference Range Interpretation Comme [facility] POCT GLU (test code = 5943795373) 126 mg/dL 70-110 H Lab Interpretation (test cod e = 89841-7) [facility]normal [facility] [id number] 22:59:03* Test Item Value Reference Range Interpretation Comme [facility] IBRAHIMA AM (test code = 5624057102) 24.7 ug/dL 4.5-23.0 H GINA (test code = GINA) Biotin has been reported to cause a positive bias, interpret results relative to patient's use of biotin. Lab Interpretation (test code = 74301-2) Abnormal [facility] GLUCOSE (AUTOMATED)2023-08-22 21:29:10* Test Item Value Reference Range Interpretation Comme [facility] POCT GLU (test code = 1570573472) 341 mg/dL 70-110 H Lab Interpretation (test cod e = 08229-0) Abnormal [facility]ville[facility] [id number] 19:53:59* Test Item Value Reference Range Interpretation Comme [facility] URIC ACID (test code = 0621114157) 6.4 mg/dL 3.6-8.0 Lab Interpretation (test cod e = 29608-5) Normal [facility] (NA, K, CL, CO2, GLUCOSE, BUN, CREATININE, CA)2023-08-22 14:43:15* Test Item Value Reference Range Interpretation Comme nts NA (test code = 0238742945) 138 mmol/L 135-145 K (test code = 1441130950) 4.6 mmol/L 3.5-5.0 CL (test code = 5475196776) 102 mmol/L 98-108 CO2 TOTAL (test code = 4795246367) 28 mmol/L 23-31 AGAP (test code = 0478831832) 8 2-16 BUN (test code = 0938701186) 34 mg/dL 7-23 H GLUCOSE (test code = 0084752477) 224 mg/dL 70-110 H CREATININE (test code = 2160-0) 1.89 mg/dL 0.60-1.25 H CALCIUM (test code = 0754390339) 9.4 mg/dL 8.6-10.6 eGFR (test code = 33542-5) 41.1 mL/min/1.73m2 CKD-EPI eGFR (2020). Assuming creatinine has been stable day-to-day for at least three months, the eGFR indicates Category G3b (30 - 44 mL/min/1.73 m2) Lab Interpretation (test code = 03420-3) Abnormal [facility] [id number] 14:42:45* Test Item Value Reference Range Interpretation Comme nts CK (test code = 2559997044) 224 U/L 33-194 H Lab Interpretation (test cod e = 17421-1) Abnormal [facility] [id number] 12:10:01* Test Item Value Reference Range Interpretation Comme nts PHOSPHORUS (test code = 4050783886) 5.8 mg/dL 2.5-5.0 H Lab Interpretation (test cod e = 71595-9) Abnormal [facility] (NA, K, CL, CO2, GLUCOSE, BUN, CREATININE, CA)2023-08-22 04:41:19* Test Item Value Reference Range Interpretation Comme nts NA (test code = 8027165855) 124 mmol/L 135-145 L K (test code = 1863107821) 4.7 mmol/L 3.5-5.0 CL (test code = 1186464498) 93 mmol/L 98-108 L CO2 TOTAL (test code = 4922610304) 18 mmol/L 23-31 L AGAP (test code = 3757380838) 13 2-16 BUN (test code = 5775802359) 68 mg/dL 7-23 H GLUCOSE (test code = 5823962121) 116 mg/dL 70-110 H CREATININE (test code = 2160-0) 6.60 mg/dL 0.60-1.25 H CALCIUM (test code = 5093140071) 9.0 mg/dL 8.6-10.6 eGFR (test code = 43558-5) 9.2 mL/min/1.73m2 CKD-EPI eGFR (2020). Assuming creatinine has been stable day-to-day for at least three months, the eGFR indicates Category G5 (<= 14mL/min/1.73 m2) Lab Interpretation (test code = 02481-0) Abnormal [facility] PELVIS WO [id number] 02:22:05Exam: CT Abdomen and Pelvis without Contrast, [...] osseous finding. Subacute/chronic left-sided rib fractures.Soft tissues: Unremarkable.[facility] Met[facility] Panel (22952) 2023-08-22 02:21:33* Test Item Value Reference Range Interpretation Comme nts NA (test code = 1439532480) 120 mmol/L 135-145 L K (test code = 1456752532) 4.8 mmol/L 3.5-5.0 CL (test code = 7266601624) 85 mmol/L 98-108 L CO2 TOTAL (test code = 2654524005) 21 mmol/L 23-31 L AGAP (test code = 5466830436) 14 2-16 BUN (test code = 9607694439) 70 mg/dL 7-23 H GLUCOSE (test code = 5734458766) 97 mg/dL 70-110 CREATININE (test code = 2160-0) 8.39 mg/dL 0.60-1.25 H TOTAL BILI (test code = 2823906953) 0.7 mg/dL 0.1-1.1 CALCIUM (test code = 6195281897) 8.8 mg/dL 8.6-10.6 T PROTEIN (test code = 4794753297) 7.2 g/dL 6.3-8.2 ALBUMIN (test code = 5754125584) 4.1 g/dL 3.5-5.0 ALK PHOS (test code = 3266797163) 95 U/L 34-122 ALTv (test code = 1742-6) 12 U/L 5-50 AST(SGOT) (test code = 8899155480) 24 U/L 13-40 eGFR (test code = 35861-0) 6.9 mL/min/1.73m2 CKD-EPI eGFR (2020). Assuming creatinine has been stable day-to-day for at least three months, the eGFR indicates Category G5 (<= 14mL/min/1.73 m2) Lab Interpretation (test code = 07123-0) Abnormal [facility]ville[facility]2024-[facility]-28 [facility]* Test Item Value Reference Range Interpretation Comme nts LIPASE (test code = 7163498109) 758 U/L 0-220 H Lab Interpretation (test cod e = 65605-9) [facility] [id number] 01:58:31* Test Item Value Reference Range Interpretation [...] g/dL 31.2-35.0 H RDW-SD (test code = 70161-2) 36.0 fL 38.5-51.6 L RDW-CV (test code = 788-0) 11.5 % 12.1-15.4 L PLT (test code = 777-3) 312 150-328 MPV (test code = 32363-9) 9.4 fL 9.8-13.0 L NRBC/100 WBC (test code = 6177484399) 0.0 0.0-10.0 NRBC x10^3 (test code = 9329387246) See_Comment [Automated message] The system which generated this result transmitted reference range: 10*3/?L. The reference range was not used to interpret this result as normal/abnormal. GRAN MAT (NEUT) % (test code = 770-8) 82.7 % IMM GRAN % (test code = 3242245023) 0.50 % LYMPH % (test code = 736-9) 6.7 % MONO % (test code = 5905-5) 9.8 % EOS % (test code = 713-8) 0.2 % BASO % (test code = 706-2) 0.1 % GRAN MAT x10^3(ANC) (test code = 6005752617) 12.19 10*3/uL 1.99-6.95 H IMM GRAN x10^3 (test code = 9739425998) 0.08 10*3/uL 0.00-0.06 H LYMPH x10^3 (test code = 731-0) 0.99 10*3/uL 1.09-3.23 L MONO x10^3 (test code = 742-7) 1.44 10*3/uL 0.36-1.02 H EOS x10^3 (test code = 711-2) 0.03 10*3/uL 0.06-0.53 L BASO x10^3 (test code = 704-7) 0.01-0.09 Lab Interpretation (test code = 55118-9) Abnormal [facility] GLUCOSE (AUTOMATED)2023-08-16 22:02:57* Test Item Value Reference Range Interpretation Comme nts POCT GLU (test code = 1799979353) 112 mg/dL 70-110 H Lab Interpretation (test cod e = 89814-0) [facility] 16:59:58* Test Item Value Reference Range Interpretation Comme nts POCT GLU (test code = 5000351282) 127 mg/dL 70-110 H Lab Interpretation (test cod e = 99260-2) [facility]16 12:48:23* Test Item Value Reference Range Interpretation Comme nts POCT GLU (test code = 5329607974) 175 mg/dL 70-110 H Lab Interpretation (test cod e = 54211-3) Abnormal [facility] GLUCOSE (AUTOMATED)2023-08-16 02:07:02* Test Item Value Reference Range Interpretation Comme nts POCT GLU (test code = 7192530124) 195 mg/dL 70-110 H Notified Provide r Lab Interpretation (test code = 16815-7) Abnormal [facility] GLUCOSE (AUTOMATED)2023-08-15 21:36:15* Test Item Value Reference Range Interpretation Comme nts POCT GLU (test code = 2370548772) 284 mg/dL 70-110 H Lab Interpretation (test cod e = 52556-4) Abnormal [facility] GLUCOSE (AUTOMATED)2023-08-15 16:56:02* Test Item Value Reference Range Interpretation Comme nts POCT GLU (test code = 0242063892) 74 mg/dL 70-110 Lab Interpretation (test cod e = 09638-7) [facility]23-08-15 13:12:34* Test Item Value Reference Range Interpretation Comme nts POCT GLU (test code = 8286772102) 258 mg/dL 70-110 H Lab Interpretation (test cod e = 03251-1) [facility]23-08-15 04:04:43* Test Item Value Reference Range Interpretation Comme nts POCT GLU (test code = 6367927712) 120 mg/dL 70-110 H Lab Interpretation (test cod e = 05145-7) [facility]normal [facility]ville[facility]cosylated Hemoglobin (A1C)2023-08-15 01:17:32* Test Item Value Reference Range Interpretation Comme nts HGB A1C (test code = 4548-4) 8.9 % 4.0-5.7 H GINA (test code = GINA) Reference RangesNormal: <5.7%Prediabetes: 5.7 - 6.4%Diabetes: > 6.5% Lab Interpretation (test code = 20739-4) Abnormal [facility] GreenvilleBeta Bxgrwee-Ronxzgas3072-19-21 01:00:45* Test Item Value Reference Range Interpretation Comme nts BOH (test code = 5718509914) 0.5 mmol/L GINA (test code = GINA) Normal Ranges: ? ? Nonfasting ? Less than 0.1 mmol/L ? ? Overnight Fast ? ? ? Less than 0.4 mmol/L ? ? Fasting (1-2 weeks) ?6-8 mmol/L Test developed and characteristics determined by [facility] Laboratory Services. [facility] GreenvilleCreatine [id number] 23:07:16* Test Item Value Reference Range Interpretation Comme nts CK (test code = 0014750737) 148 U/L 33-194 Lab Interpretation (test cod e = 41316-2) Normal [facility] GreenvilleTROPONIN [id number] 22:18:16* Test Item Value Reference Range Interpretation Comme nts TROPONIN I (test code = 2569662938) 0.081 ng/mL <=0.034 H GINA (test code [...] of biotin. Lab Interpretation (test code = 65845-3) Abnormal [facility] GreenvilleN-TERMINAL [id number] 22:15:55* Test Item Value Reference Range Interpretation Comme nts NT-proBNP (test code = 45111-5) 999 pg/mL <=125 H GINA (test code = GINA) Positive: Heart Failure Likely Lab Interpretation (test code = 30571-8) Abnormal [facility] GreenvilleMagnesium2024-04-20 22:07:17* Test Item Value Reference Range Interpretation Comme nts MAGNESIUM (test code = 1213785873) 1.8 mg/dL 1.7-2.4 Lab Interpretation (test cod e = 53851-2) Normal [facility] GreenvilleCOMP. METABOLIC PANEL (06224)2023 22:06:57* Test Item Value Reference Range Interpretation Comme nts NA (test code = 6954986062) 130 mmol/L 135-145 L K (test code = 6053742441) 3.4 mmol/L 3.5-5.0 L CL (test code = 3843175463) 93 mmol/L 98-108 L CO2 TOTAL (test code = 5280673198) 26 mmol/L 23-31 AGAP (test code = 6594227365) 11 2-16 BUN (test code = 6936884236) 39 mg/dL 7-23 H GLUCOSE (test code = 2774302399) 142 mg/dL 70-110 H CREATININE (test code = 2160-0) 2.40 mg/dL 0.60-1.25 H TOTAL BILI (test code = 5858989647) 1.2 mg/dL 0.1-1.1 H CALCIUM (test code = 6642447461) 9.1 mg/dL 8.6-10.6 T PROTEIN (test code = 2834482132) 7.7 g/dL 6.3-8.2 ALBUMIN (test code = 3298443109) 4.2 g/dL 3.5-5.0 ALK PHOS (test code = 8623406874) 102 U/L 34-122 ALTv (test code = 1742-6) 16 U/L 5-50 AST(SGOT) (test code = 5792036504) 26 U/L 13-40 eGFR (test code = 15002-7) 30.9 mL/min/1.73m2 CKD-EPI eGFR (2020). Assuming creatinine has been stable day-to-day for at least three months, the eGFR indicates Category G3b (30 - 44 mL/min/1.73 m2) Lab Interpretation (test code = 83895-2) Abnormal [facility]villePhosphorus2024-04-20 22:06:37* Test Item Value Reference Range Interpretation Comme nts PHOSPHORUS (test code = 7806939400) 4.9 mg/dL 2.5-5.0 Lab Interpretation (test cod e = 65081-4) Normal [facility] GreenvilleLIPASE2024-04-20 22:06:17* Test Item Value Reference Range Interpretation Comme nts LIPASE (test code = 7736547483) 204 U/L 0-220 Lab Interpretation (test cod e = 32227-3) Normal [facility] GreenvilleCBC WITH [id number] 21:54:56* Test Item Value Reference Range Interpretation [...] g/dL 31.2-35.0 H RDW-SD (test code = 90436-0) 38.1 fL 38.5-51.6 L RDW-CV (test code = 788-0) 11.8 % 12.1-15.4 L PLT (test code = 777-3) 235 150-328 MPV (test code = 73461-7) 11.1 fL 9.8-13.0 NRBC/100 WBC (test code = 6858837534) 0.0 0.0-10.0 NRBC x10^3 (test code = 7220830912) See_Comment [Automated message] The system which generated this result transmitted reference range: 10*3/?L. The reference range was not used to interpret this result as normal/abnormal. GRAN MAT (NEUT) % (test code = 770-8) 80.3 % IMM GRAN % (test code = 1210111823) 0.60 % LYMPH % (test code = 736-9) 8.7 % MONO % (test code = 5905-5) 10.0 % EOS % (test code = 713-8) 0.2 % BASO % (test code = 706-2) 0.2 % GRAN MAT x10^3(ANC) (test code = 7664816300) 10.18 10*3/uL 1.99-6.95 H IMM GRAN x10^3 (test code = 7849201058) 0.07 10*3/uL 0.00-0.06 H LYMPH x10^3 (test code = 731-0) 1.11 10*3/uL 1.09-3.23 MONO x10^3 (test code = 742-7) 1.27 10*3/uL 0.36-1.02 H EOS x10^3 (test code = 711-2) 0.03 10*3/uL 0.06-0.53 L BASO x10^3 (test code = 704-7) 0.03 10*3/uL 0.01-0.09 Lab Interpretation (test code = 26614-3) Abnormal [facility] GreenvilleXR CHEST 1 [id number] 21:49:58EXAM: XR CHEST 1 2023 4:38 PM HISTORY: 58 years-old Male with r/o infilrate . TECHNIQUE: Portable AP view of the chest. COMPARISON: 04/21/2023 FINDINGS: Lines and tubes: None. Cardiomediastinal: The cardiomediastinal silhouette is unremarkable. Lungs and pleura: The lungs are clear. No focal consolidation,pneumothorax, or pleural effusion is seen. Included osseous structures show no acuteabnormality.[facility] GreenvilleCT ABDOMEN PELVIS W [id number] 21:45:03EXAM: CT ABDOMEN AND PELVIS WITH CONTRAST [...] change involving the spine, sacroiliac jointsand hips ispresent.[facility] GreenvilleCT TRAUMA HEAD WO [id number] 21:38:37FULL RESULT: Examination: CT TRAUMA HEAD WO CONTRAST on 2023 4:16 PM Clinical Indication: Headache, hypertensive Comparison: None Technique: Noncontrast imaging was obtained from base to vertex.Findings: The sulci and ventricles were unremarkable. There may be subtlewhite matter microvascularischemic changes, notably in the anteriorperiventricular region, but there is no evidence for hemorrhage or otherclearly acute intracranial process.[facility] GreenvilleLactic Acid Whole [id number] 21:30:25* Test Item Value Reference Range Interpretation Comme nts LACTIC ACID (test code = 7854567120) 1.58 mmol/L 0.50-2.20 Lab Interpretation (test cod e = 51373-8) Normal [facility]villeAcute Care Venous Blood [id number] 21:30:25 * Test Item Value Reference Range Interpretation Comme nts PH (test code = 2898243703) 7.34 7.32-7.42 PCO2 NOY (test code = 5311198269) 45 41-51 PO2 NOY (test code = 8446560704) 24 25-40 L HCO3 NOY (test code = 7894110566) 24 24-28 AC VBE(BEAKER) (test code = 0122640404) -1.9 mEq/L Lab Interpretation (test cod e = 56669-3) Abnormal [facility] GLUCOSE (AUTOMATED)2023 20:26:17* Test Item Value Reference Range Interpretation Comme nts POCT GLU (test code = 4838262715) 165 mg/dL 70-110 H Lab Interpretation (test cod e = 77062-0) Abnormal [facility] GLUCOSE(AGE >30DAYS)2023 20:26:00* Test Item Value Reference Range Interpretation Comme nts POCT Glu (age>30days) (test code = 3342) 165 mg/dL 70-110 A Lab Interpretation (test cod e = 01320-6) Abnormal [facility] GLUCOSE (AUTOMATED)2023-04-23 18:15:28* Test Item Value Reference Range Interpretation Comme nts POCT GLU (test code = 1953714316) 218 mg/dL 70-110 H Lab Interpretation (test cod e = 56538-8) [facility]2023-04-23 15:35:23* Test Item Value Reference Range Interpretation Comme nts POCT GLU (test code = 7231664081) 186 mg/dL 70-110 H Lab Interpretation (test cod e = 45925-3) Abnormal [facility] GLUCOSE (AUTOMATED)2023-04-23 02:57:57* Test Item Value Reference Range Interpretation Comme nts POCT GLU (test code = 0174426455) 82 mg/dL 70-110 Lab Interpretation (test cod e = 40731-6) Normal [facility] GLUCOSE (AUTOMATED)2023-04-23 00:33:51* Test Item Value Reference Range Interpretation Comme nts POCT GLU (test code = 5256592454) 181 mg/dL 70-110 H Lab Interpretation (test cod e = 67366-5) Abnormal [facility] GLUCOSE (AUTOMATED)2023-04-22 22:54:22* Test Item Value Reference Range Interpretation Comme nts POCT GLU (test code = 2958786625) 127 mg/dL 70-110 H Lab Interpretation (test cod e = 15097-1) Abnormal [facility] GLUCOSE (AUTOMATED)2023-04-22 20:37:54* Test Item Value Reference Range Interpretation Comme nts POCT GLU (test code = 1664110567) 230 mg/dL 70-110 H Lab Interpretation (test cod e = 88663-8) Abnormal [facility] GLUCOSE (AUTOMATED)2023-04-22 17:46:23* Test Item Value Reference Range Interpretation Comme nts POCT GLU (test code = 1157297433) 144 mg/dL 70-110 H Lab Interpretation (test cod e = 04197-1) Abnormal [facility] GLUCOSE (AUTOMATED)2023-04-22 13:42:26* Test Item Value Reference Range Interpretation Comme nts POCT GLU (test code = 0075530559) 229 mg/dL 70-110 H Lab Interpretation (test cod e = 96565-5) Abnormal [facility] GLUCOSE (AUTOMATED)2023-04-22 03:33:49* Test Item Value Reference Range Interpretation Comme nts POCT GLU (test code = 4379718469) 222 mg/dL 70-110 H Lab Interpretation (test cod e = 03613-4) Abnormal [facility] GLUCOSE (AUTOMATED)2023-04-22 01:36:03* Test Item Value Reference Range Interpretation Comme nts POCT GLU (test code = 0612642850) 282 mg/dL 70-110 H Lab Interpretation (test cod e = 43102-4) Abnormal [facility] GreenvilleEchocardiogram dobutamine stress test 2023-04-21 22:26:30* Test Item Value Reference Range Interpretation Comme nts Height (test code = 4077324964) 63 in Weight (test code = 1449133792) 130 lbs Systolic BP (test code = 6330591313) 122 mmHg Diastolic BP (test code = 6203550482) 81 mmHg Heart Rate (test code = 0340912685) 105 bpm BSA (test code = 0885858867) 1.[address] Depresion (mm) (test code = 5458347735) [address] Depression (mm) (test code = 8418890413) 0 mm Radiology Study observation (narrative) (test code = 13691-4) GINA (test code = GINA) Table formatting [...] left ventricular wall motion is globally hyperkinetic. [facility]villeTransthoracic echo (TTE)2023-04-21 18:05:03* Test Item Value Reference Range Interpretation Comme nts Height (test code = 5263169307) 63 in Weight (test code = 4065308538) 130 lbs Systolic BP (test code = 6032994990) 114 mmHg Diastolic BP (test code = 8628190712) 75 mmHg Heart Rate (test code = 0633086436) 98 bpm BSA (test code = 5695108096) 1.61 m2 LVIDD (test code = 5451597703) 4.00 cm Left Ventricular End Diastolic Volume by Teichholz Method (test code = 8746403) 70.0 mL IVS (test code = 9127929332) 1.07 cm Interventricular Septum Diastolic Thickness by 2D (test code = 2943073) 1.07 cm LVPWD (test code = 0893968312) 1.05 cm PW (test code = 4735742276) 1.05 cm 0.6-1.1 EF(Teich) (test code = 9502993394) 62.60 % LVIDS (test code = 0191100662) 2.70 cm Left Ventricular End Systolic Volume by Teichholz Method (test code = 1316468) 26.2 mL FS (test code = 7762909384) 33 % EF - 2D (test code = 80306303) 62.60 % Ao root diam (test code = 8838258379) 3.70 cm Aortic root (test code = 0067669847) 3.7 cm Ao root annulus (test code = 4847712835) 3.7 cm LA size (test code = 0929764640) 3.2 cm LVOT diameter (test code = 6957869913) 2.08 cm LVOT area (test code = 8520817521) 3.40 cm2 MV Peak E Nima (test code = 0513810625) 48.3 cm/s E wave decelartion time (test code = 3183229254) 0.15 s MV Peak A Nima (test code = 0688470153) 74.4 cm/s E/A ratio (test code = 3363408905) 0.65 ratio MV Prop V (test code = 8329410181) 21.20 cm/s LAV(MOD-sp4) (test code = 6202950552) 35.30 mL Tapse (test code = 1175774565) 1.73 cm LVOT stroke volume (test code = 4621511854) 45.20 cm3 LVOT peak nima (test code = 8127995939) 79.0 cm/s LVOT mn grad (test code = 0015148793) 1.3 mmHg AV LVOT peak gradient (test code = 3424034538) 2.50 mmHg LVOT peak VTI (test code = 2832715769) 13.2 cm LV V1 mean (test code = 6238674017) 52.90 cm/s Ao peak nima (test code = 0953735160) 83.8 cm/s AV area peak nima (test code = 0101871866) 3.2 cm2 Ao max PG (test code = 4132907093) 2.80 mm[Hg] AV peak gradient (test code = 3905961983) 2.8 mmHg LA Volume Index (BP) (test code = 8181926167) 25.9 mL/m2 LA volume (BP) (test code = 4085378816) 41.8 mL LAV(MOD-sp2) (test code = 5054123831) 40.90 mL A4C EF (test code = 2282583704) 54.40 % EF(sp4-el) (test code = 1380461608) 55.00 % SV(MOD-sp4) (test code = 5238911033) 53.10 mL SV(sp4-el) (test code = 4495751071) 55.60 mL Radiology Study observation (narrative) (test code = 96790-0) GINA (test code = GINA) ?Left?Ventricle: Left [...] enhancing agent used. Patient exhibited sinus rhythm. [facility]villePO[facility])2023-04-21 17:48:26* Test Item Value Reference Range Interpretation Comme nts POCT GLU (test code = 7320626107) 198 mg/dL 70-110 H Lab Interpretation (test cod e = 83074-0) Abnormal [facility]villeXR CHEST 1 [id number] 15:12:07EXAM: XR CHEST 1 VW HISTORY: NSTEMI COMPARISON: None. FINDINGS: Small bandlike densities in the left midlung have more the appearance ofatelectasis than pneumonia. The lungs are well expanded and clearotherwise. The heart and great vessels are normal except for calcium in thearch of the aorta.[facility]villePOCT GL[facility] (AUT[facility]ATED)2023-04-21 09:39:57* Test Item Value Reference Range Interpretation Comme nts POCT GLU (test code = 4919636980) 243 mg/dL 70-110 H Lab Interpretation (test cod e = 66991-8) Abnormal [facility] GreenvilleFerritin [id number] 07:28:27* Test Item Value Reference Range Interpretation Comme nts FERRITIN (test code = 0200697486) 76.3 ng/mL 18.0-464.0 GINA (test code = GINA) Biotin has been reported to cause a negative bias, interpret results relative to patient's use of biotin. Lab Interpretation (test code = 94370-8) Normal [facility] GreenvilleGlycosylated Hemoglobin (A1C)2023-04-21 07:25:47* Test Item Value Reference Range Interpretation Comme [facility] HGB A1C (test code = 4548-4) 12.6 % 4.0-5.7 H GINA (test code = GINA) Reference RangesNormal: <5.7%Prediabetes: 5.7 - 6.4%Diabetes: > 6.5% Lab Interpretation (test code = 96650-9) Abnormal [facility] GreenvilleThyroid Stimulating Dejpkkj2521-41-15 07:24:07 * Test Item Value Reference Range Interpretation Comme nts TSH (test code = 3065060182) 2.56 See_Comment [Automated [employer] ge] The system which generated this result transmitted reference range: 0.45 - 4.70 mIU/L. The reference range was not used to interpret this result as normal/abnormal. Lab Interpretation (test code = 90812-7) Normal [facility] GreenvillePhosphorus2023-12-27 06:52:06* Test Item Value Reference Range Interpretation Comme nts PHOSPHORUS (test code = 6380556399) 3.2 mg/dL 2.5-5.0 Lab Interpretation (test cod e = 87242-4) Normal [facility] GreenvilleCritical [id number] 02:54:15NSergio chin MD ? ? 04/20/2023 ?8:54 [...] procedures and treating other patients. [facility] [id number] 02:30:18* Test Item Value Reference Range Interpretation Comme nts TROPONIN I (test code = 7641373677) 0.154 ng/mL <=0.034 H GINA (test code [...] of biotin. Lab Interpretation (test code = 74551-6) Abnormal [facility] GreenvilleETHANOL2023-12-27 02:24:46 ALCOHOL<10mg/dL04/20/2023 8:24 PM [facility]10 Wzgabyoz22-411 Toxic>100 Depression of TYPEWRITERS FUNCTIONAL TESTER>400 Fatalities ReportedUnDell [facility] University [facility] TexasCOMP. METABOLIC PANEL (09123)2023-04-21 02:19:15* Test Item Value Reference Range Interpretation Comme nts NA (test code = 1725434394) 129 mmol/L 135-145 L K (test code = 5897791660) 3.5 mmol/L 3.5-5.0 CL (test code = 7914409803) 94 mmol/L 98-108 L CO2 TOTAL (test code = 7618714130) 28 mmol/L 23-31 AGAP (test code = 8622394931) 7 2-16 BUN (test code = 3812876928) 26 mg/dL 7-23 H GLUCOSE (test code = 5569689187) 314 mg/dL 70-110 H CREATININE (test code = 9422584091) 0.92 mg/dL 0.60-1.25 TOTAL BILI (test code = 8514503872) 0.8 mg/dL 0.1-1.1 CALCIUM (test code = 8679205489) 8.5 mg/dL 8.6-10.6 L T PROTEIN (test code = 4046297277) 6.0 g/dL 6.3-8.2 L ALBUMIN (test code = 6121617247) 3.3 g/dL 3.5-5.0 L ALK PHOS (test code = 5056787548) 95 U/L 34-122 ALTv (test code = 1742-6) 23 U/L 5-50 AST(SGOT) (test code = 3162222564) 30 U/L 13-40 eGFR (test code = 47821-6) 98.2 mL/min/1.73m2 CKD-EPI eGFR (2020). Assuming creatinine has been stable day-to-day for at least three months, the eGFR indicates Category G1 (>= 90 mL/min/1.73 m2) Lab Interpretation (test code = 80501-3) Abnormal [facility] WITH [id number] 02:03:54* Test Item Value Reference Range Interpretation [...] g/dL 31.2-35.0 H RDW-SD (test code = 48882-9) 36.2 fL 38.5-51.6 L RDW-CV (test code = 788-0) 11.6 % 12.1-15.4 L PLT (test code = 777-3) 178 See_Comment [Automated messa ge] The system which generated this result transmitted reference range: 150 - 328 10*3/?L. The reference range was not used to interpret this result as normal/abnormal. MPV (test code = 89401-9) 10.9 fL 9.8-13.0 NRBC/100 WBC (test code = 5975901989) 0.0 See_Comment [Automated me ssage] The system which generated this result transmitted reference range: 0.0 - 10.0 /100 WBCs. The reference range was not used to interpret this result as normal/abnormal. NRBC x10^3 (test code = 3016682082) See_Comment [Automated messa ge] The system which generated this result transmitted reference range: 10*3/?L. The reference range was not used to interpret this result as normal/abnormal. GRAN MAT (NEUT) % (test code = 770-8) 81.3 % IMM GRAN % (test code = 2519838057) 0.30 % LYMPH % (test code = 736-9) 10.5 % MONO % (test code = 5905-5) 7.6 % EOS % (test code = 713-8) 0.1 % BASO % (test code = 706-2) 0.2 % GRAN MAT x10^3(ANC) (test code = 0559235646) 9.55 10*3/uL 1.99-6.95 H IMM GRAN x10^3 (test code = 2697498610) 0.04 10*3/uL 0.00-0.06 LYMPH x10^3 (test code = 731-0) 1.23 10*3/uL 1.09-3.23 MONO x10^3 (test code = 742-7) 0.89 10*3/uL 0.36-1.02 EOS x10^3 (test code = 711-2) 0.06-0.53 L BASO x10^3 (test code = 704-7) 0.01-0.09 Lab Interpretation (test code = 09704-6) Abnormal [facility]villePO[facility] ([facility])2023-04-21 01:55:51* Test Item Value Reference Range Interpretation Comme nts POCT GLU (test code = 0677992323) 408 mg/dL 70-110 H Lab Interpretation (test cod e = 78116-3) Abnormal [facility] GreenvilleCOMPREHENSIVE METABOLIC [id number] 05:07:51* Test Item Value Reference Range Interpretation Comme nts GLUCOSE (test code = 2217) 224 MG/DL 70-99 H BUN (test code = 2208) 22 MG/DL 6-20 H CREATININE (test code = 2214) 0.71 MG/DL 0.80-1.40 L eGFR (2020 CKD-EPI) (test code = 46329) 109 ML/MIN/1.73 >60 CALC BUN/CREAT (test code [...] code = 2218) 24 U/L 5-50 LIPID [id number] 05:07:51* Test Item Value Reference Range Interpretation [...] SPECIMENS. FOR MOREINFORMATION, SEE CLIENT ANNOUNCEMENT AT [email or web address] RATIO LDL/HDL (test code = 2238) 1.72 RATIO <3.55 PSA, [id number] 05:07:10* Test Item Value Reference Range Interpretation Comme nts PSA, TOTAL (test code = 2606) 19.70 NG/ML See_Comment H NOTE: Methodolog y is Ashley Jasmina Electrochemiluminescence Immunoassay traceable to WHO reference standard 96/760. UNLESS OTHERWISE INDICATED, ALL TESTING PERFORMED [facility]ENTERBand[facility]OLOG[facility] [employer] [address] [place] [address] LICENSED OPTICAL DISPENSER: DUSTIN COLMENARES M.D. CLIA NUMBER [id number] [place]. [id number] [Automated message] The system which generated this result transmitted reference range: <=4.00. The reference range was not used to interpret this result as normal/abnormal. HEMOGLOBIN [id number] 02:46:58* Test Item Value Reference Range Interpretation Comme nts HEMOGLOBIN A1c (test code = 40389) 11.0 % 4.2-5.6 H [employer] GUIDELINES FOR HGB A1C: [...] OR LABORATORY CONSULTATION. CBC W/AUTO DIFF WITH [id number] 02:32:39* Test Item Value Reference Range Interpretation [...] 0.00-0.10 ABS NUCLEATED RBCS (test code = 66868) 0.00 K/UL 0.00-0.11 Consult Notes Date/Time Note [...] when jensen is moved. COMMUNICATION Primary Language: Guinean Able to Verbalize needs: Yes Vision:good; no [...] Minutes: 20 min Jesica Murphy,PT [place] License: [id number] Required Components in Determining Evaluation Level History: No personal factors or comorbidities: No (40026) 1-2 personal factors and/or comorbidities: Yes (49080) 3 or more personal factors and/ or comorbidities: No (78667) Examination of Body System(s) Addressing 1-2 elements: Yes (81163) Addressing a total of 3 or more elements: No (77412) Addressing a total of 4 or more elements: No (90475) Clinical Presentation Stable: Yes (33775) Evolving: No (34470) Unstable: No (50609) Clinical Decision Making (Complexity) Low: No (20658) Moderate: Yes (62019) High: No (39952) Jesica Murphy PT [facility] - [employer] 2023-08-15 10:01:34 Associated Order(s): CONSULT CARDIOLOGY [facility] Cardiology Consult Note Patient: Saturnino Maldonado [...] of Onset No Significant Medical Problems Mother GA (myocardial infarction) Father SOCIAL HISTORY Social History [...] 650 mg, 650 mg, Oral, Q6HPRN, Jerry Fiedls, dextrose 50 % in water (D50W) injection [...] specified complication Elevated troponins: Likely type II GA in the setting of underlying ELIEZER/elevated blood [...] per primary team. Last Two A1C Results ([facility]/, POCT, [place]) Recent Labs 04/20/23195408/14/23 1547 HGBA1C [...] feel free to call our office at [phone]. I would be happy to be of further assistance for Saturnino Maldonado wellbeing. Voice recognition software has been used to create portions of this document. An attempt to proofread has been made to minimize errors. Please do not hesitate to call with any questions. Benja Rivera MD Health And Safety Advisor, Division of Cardiology [facility] 2023-04-21 08:46:48 Associated Order(s): CONSULT ENDOCRINOLOGY Endocrinology Consult Note Consultation requested by: Service: White team Reason for Consultation: Diabetes Date of Service: 04/21/23 HPI 57 year old male with a PMH of HTN, T2DM, Fmhx premature CAD who presented with complaints of polyuria and weakness at [facility] ER. Patient transferred to [place] for further work up. Endocrinology consulted for diabetes management Diabetes Type and year diagnosed: 2011, type 2 Diabetes complications: none Hx of DM regimen: no meds for 3 years Compliance: - BG monitoring? - Hypoglycemia hx: no Hypoglycemia unawareness? no Symptoms of hyperglycemia: polyuria Living situation and support: homeless, lives with different relatives Diabetes doctor: PCP in [place], has not seen for few years Family hx of diabetes: no HX of glucocorticoid use: no HX of transfusions or EPO in last 6 months: no PAST MEDICAL HISTORY Past Medical History: Diagnosis Date HTN (hypertension) Uncontrolled diabetes mellitus with hyperglycemia History reviewed. No pertinent surgical history. Family History Problem Relation Age of Onset No Significant Medical Problems Mother GA (myocardial infarction) Father Social History Tobacco Use [...] with complaints of polyuria and weakness at [facility] ER. Patient transferred to [place] for further work up. Endocrinology consulted for [...] pay, need NPH and Regular insulin to [facility] ([employer]) -Need insulin vials, syringe needles, glucometer, test strips, lancets -Need meds to bed before discharge -Please contact Endocrine before discharge - Case discussed with Dr. Cabrera.. Austin Amaro. Endocrinology Fellow, PGY 5 ER REPAIRER Associated attestation - Rita Cabrera MD - 04/22/2023 2:11 PM DEICER REPAIRER Endocrinology Faculty Attestation: I evaluated this patient's progress on 04/21/[address] Amaro note as written and revised. I actively participated in the decision-making process. Please see the resident's note for additional details that includes pertinent addendums I made directly in the note during revision. Rita Cabrera MD Health And Safety Advisor Division of Endocrinology IM-ENDOCRINOLOGY,DIABET ES & METABOLISM [facility] - Health History and Physical Notes Date/Time Note Provider Source 2023-08-21 22:53:53 [facility] Hospitalist Admission H&P Date of Service: 08/21/2023 [...] consulted. Patient was given the application for [employer] on last admission and will need to [...] of Onset No Significant Medical Problems Mother GA (myocardial infarction) Father SOCIAL HISTORY Social History [...] user?: NO Patient will require observation [place] CLAIMS MANAGER was verified during stay Lyubov Banda MD [facility] 2023 22:58:21 MEDICINE MEGADC ADMIT H&P [...] of Onset No Significant Medical Problems Mother GA (myocardial infarction) Father ALLERGIES No Known Allergies [...] present Code Status: Presumed Full Code T EMFORMERLY [facility] EMERGENCY PHYSICIAN STAFF [facility] 2023-04-21 00:39:12 MCAWHITE Admit H&P PCP: Erik Louie Jr Date of Service: 04/20/2023 CHIEF COMPLAINT: Polyuria HISTORY OF PRESENT ILLNESS Saturnino Maldonado is a 57 year old male with a PMH of HTN, T2DM, Fmhx premature CAD who presented with complaints of polyuria and weakness at [facility] ER. Patient transferred to [place] for further work up. Patient reports that [...] or drug use. Family history significant for GA in father in his 40s. Currently not [...] use drugs. Family history: family history includes GA (myocardial infarction) in his father; No Significant [...] help with resources. Plan: - Admit to [facility] - Trend Troponin to peak - [...] Medicine Department PGY 2, [place] Team ER REPAIRER Associated attestation - Bret Banda MD - 04/21/2023 2:47 PM DEICER REPAIRER I reviewed patient's chart, vitals, lab work, current medications and other diagnostic studies. I saw and examined the patient today and agree with the detailed note. I actively participated in the decision-making process. Bret Banda MD Health And Safety Advisor Division of Cardiology [facility] - Health Notes Date/Time Note Provider Source [...] Outcome: Adequate for discharge Kalina Georges RN [facility] 2023-08-24 13:14:04 Problem: Pain Goal: Control [...] Absence of falls Outcome: Adequate for discharge [facility] 2023-08-23 07:12:12 Problem: Pain Goal: Control [...] Progressing as expected T Abi Lowery RN [facility] 2023-08-22 22:07:54 Problem: Pain Goal: Control [...] Outcome: Progressing as expected Tammy Sweeney RN [facility] 2023-08-22 08:41:53 Problem: Pain Goal: Control [...] Outcome: Progressing as expected Mihaela Lopez RN [facility] 2023-08-22 03:26:01 Problem: Pain Goal: Control [...] Outcome: Progressing as expected Angeline Claudio RN [facility] 2023-08-21 23:32:26 Patient admitted to [facility] 2101 for diagnosis of ELIEZER, urinary obstruction Patient agrees to admission, discussed plan of care with patient and family. Patient is awake, alert, oriented, resp reg unlabored, color appropriate for race, PIV intact No adverse reaction to medications administered while in ED Belongings with patient to unit Report to [facility] RN Chela Reyes RN [facility] 2023-08-21 19:43:36 Pt C/O RLQ pain that started yesterday, pt states last BM 08/16/2023. Pt denies any urinary, nausea or vomiting Sydney Duff RN [facility] 2023-08-21 19:39:00 [facility] Emergency Department Note Patient Name: Saturnino Maldonado Date of : 1965 58 year old male Treatment Room: [place] [address] Primary Care Physician: Erik Louie Jr Patient Escorted by: Self [9] Mode of Arrival: EMS - [facility]ory [46] EMS Treatment Prior to ED Arrival: MAT ROLLER treatment: None Travel and Exposure Screening: Symptoms [...] 0.01 - 0.09 10*3/uL COMP. METABOLIC PANEL (28835) - Abnormal NA 120 (*) 135 - [...] CONTRAST Cbc with Diff Comp. Metabolic Panel (57216) Lipase Urinalysis Basic Metabolic Panel (NA, K, [...] treatment AdmissionCare documentation entered by: Cosme Cardona [facility] UserEvents, 27th edition, Copyright ? 2022 [facility] [employer] All Rights Reserved. [id number]:26:32-05:00 ED COURSE ED Course as of 08/21/235 [...] Electronically signed by: Cosme Cardona DO 08/21/232254 [facility] 2023-08-21 19:39:00 AdmissionCare Guideline: Urologic Disease, [...] treatment AdmissionCare documentation entered by: Cosme Cardona [facility] UserEvents, 27th edition, Copyright ? 2022 [facility] [employer] [facility] All Rights Reserved. [id number]:26:32-05:00 [facility] 2023-08-17 08:32:29 ----- Message from Yary [...] with one of us in 3-4 weeks. [facility] 2023-08-16 17:56:55 Summary: discharge transportation Discharge paperwork provided, patient stated he does not have a ride. Transportation was arranged with voucher. Discharge location: [address] [place] [id number] Patient verbalized understanding. T Hilary Quinones RN [facility] 2023-08-16 17:19:16 Problem: Pain Goal: Control of pain at or below patient's documented comfort goal Outcome: Resolved Goal: Reduction in pain sensation Outcome: Resolved Problem: Skin integrity Impaired (Risk or Actual) Goal: Prevention of new skin breakdown Outcome: Resolved Problem: Venous Thromboembolism, (actual or risk of) Goal: Absence of venous thromboembolism (Risk) Outcome: Resolved [facility] 2023-08-16 10:33:18 Summary: jensen Jensen discontinued without complications. Patient given lactulose PO. Patient notified to notify nurse and to leave urine/stool before flushing for nursing staff to assess. Patient verbalized understanding. [facility] 2023-08-16 00:51:24 Problem: Pain Goal: Control of pain at or below patient's documented comfort goal Outcome: Progressing as expected Goal: Reduction in pain sensation Outcome: Progressing as expected Problem: Skin integrity Impaired (Risk or Actual) Goal: Prevention of new skin breakdown Outcome: Progressing as expected Problem: Venous Thromboembolism, (actual or risk of) Goal: Absence of venous thromboembolism (Risk) Outcome: Progressing as expected [facility] 2023-08-15 19:27:06 Problem: Pain Goal: Control [...] Outcome: Progressing as expected Libia Johnson RN [facility] 2023 23:43:36 Problem: Pain Goal: Control of pain at or below patient's documented comfort goal Outcome: Progressing as expected Goal: Reduction in pain sensation Outcome: Progressing as expected Problem: Skin integrity Impaired (Risk or Actual) Goal: Prevention of new skin breakdown Outcome: Progressing as expected Problem: Venous Thromboembolism, (actual or risk of) Goal: Absence of venous thromboembolism (Risk) Outcome: Progressing as expected [facility] 2023 23:01:15 Patient admitted to [facility] for diagnosis of Hypertension, elevated troponin, urine retention, ELIEZER, hypokalemia. Patient agrees to admission, discussed plan of care with patient and family. Patient is awake, alert, oriented, resp reg unlabored, color appropriate for race, PIV intact No adverse reaction to medications administered while in ED Belongings with patient to unit Report to [facility] RN Josi Miller RN [facility] 2023 18:56:57 Handoff report given to Josi VILLAGRAN Nunu Fang RN [facility] 2023 14:42:29 Has been out of diabetic, BP meds since April. States he can't "afford it". Struggling with constipation for "several days". He called EMS today for excessive fatigue and worsening hypertension. He is A&Ox4 and able to ambulate. Alba Hernandez RN [facility] - Health 2023 14:38:00 Associated Order(s): EKG-12 Lead ROUTINE ONCE Pre-Procedure Diagnose(s): Hypertension, unspecified type Post-Procedure Diagnose(s): Hypertension, unspecified type; Elevated troponin I level; Urine retention [facility] Emergency Department Note Patient Name: Saturnino Maldonado Date of : 1965 58 year old male Treatment [facility]: [facility] Primary Care Physician: Erik Louie Jr Patient Escorted by: Self [9] Mode of Arrival: EMS - [facility]ory [46] EMS Treatment Prior to ED Arrival: [...] History provided by: Patient and medical records american sign language interpreter used: No Past Medical [...] ED Events Date/Time Event User Comments 08/14/23 6536 Medical Screening Begins UMANG REYNAGA MD -- 08/14/23 145 First Provider Evaluation UMNAG REYNAGA MD -- ED COURSE ED Course [...] ED Physician in the 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 2022 [employer] All Rights Reserved. [id number]:45:18-05:00 T [facility] UserEvents 2023 14:38:00 AdmissionCare Guideline: Renal Failure (Acute) [...] patients) AdmissionCare documentation entered by: Umang Reynaga [employer], edition, Copyright ? 2022 [employer] All Rights Reserved. [id number]:00:25-05:00 [facility] 2023-04-27 15:56:14 TRANSITIONAL CARE MANAGEMENT ASSESSMENT 04/27/2023 Saturnino Maldonado [id number] Saturnino Maldonado is a 57 year old /White male was admitted on 04/20/[address] He was discharged on 04/23/23 with [...] to check in. No linked episodes TCM [facility]ja[facility]rooh-ge-face outreach documentation: Future Appointments: ER REPAIRER Jeannette Dawn LVN [facility] 2023-04-23 18:39:42 Patient refuses to take taxi voucher which takes him directly to [facility] stating, "My brother is on his way to pick me up. I don't want to upset him as it is anymore." When asked if his brother is going to take him to [facility]), patient stated, "I don't know. That will be between me and my brother." Transportation in room, wheeled patient downstairs to [facility]. ER REPAIRER Meme Sparks RN [facility] 2023-04-23 17:33:42 Problem: Glucose control Goal: [...] Outcome: Progressing as expected A Whiting RN [facility] 2023-04-23 17:33:03 Problem: Glucose control Goal: [...] Valentino Whiting RN Outcome: Progressing as expected [facility] 2023-04-23 10:51:50 Problem: Glucose control Goal: [...] of cognitive ability Outcome: Progressing as expected [facility] 2023-04-23 00:56:44 Problem: Mental Status - Impaired Goal: Able to achieve maximum level of cognitive ability Outcome: Progressing as expected [facility] 2023-04-23 00:52:07 Problem: Glucose control Goal: [...] within specified parameters Outcome: Progressing as expected [facility] 2023-04-22 08:03:00 Problem: Glucose control Goal: [...] within specified parameters Outcome: Progressing as expected [facility] 2023-04-20 23:38:56 Problem: Glucose control Goal: [...] within specified parameters Outcome: Progressing as expected [facility] 2023-04-20 21:49:51 Patient admitted to [facility] ROOM 923 for diagnosis of WEAKNESS, NSTEMI, HYPERGLYCEMIA Patient agrees to admission, discussed plan of care with patient. Patient is awake, alert, oriented, resp reg unlabored, color appropriate for race, PIV intact No adverse reaction to medications administered while in ED Belongings with patient to unit Report to MARIE VILLAGRAN REPORT GIVEN TO [facility], PT LOADED TO BE TRANSFERRED. HEPARIN INFUSING AT 700 UNITS/ HOUR. BOTH [facility] Jaelyn Vargas RN [facility] 2023-04-20 21:38:11 Report called to [facility], spoke with Marie VILLAGRAN. Pt awaiting EMS transfer. [facility] 2023-04-20 20:59:06 [facility] ETA 45 MIN per Chen A Crarero PCT [facility] 2023-04-20 20:54:15 Associated Order(s): Critical Care [...] separately billable procedures and treating other patients. . [facility] UserEvents 2023-04-20 20:00:00 Patient aware of UA sample needed. Unable to provide sample at this moment. Urinal at bedside. Call light within reach. . [facility] User[employer] 2023-04-20 19:50:08 Patient arrived to ED via [facility] c/o "not feeling well." [facility]SBG 386 MAT ROLLER. Per patient he was diagnosed with DM five years ago and stopped taking home meds-Metformin about three years ago. Patient c/o of being weak and increased UOP. Patient was nauseous MAT ROLLER but has resolved since. ER REPAIRER [facility] 2023-04-20 19:43:00 EMERGENCY DEPARTMENT ENCOUNTER [facility] Patient Name: Saturnino Maldonado Date of : 1965 57 year old Exam Room:Room/bed info not found Primary Care Physician: No primary care provider on file. Pre- Hospital Patient Escorted by: Self [9] Mode of Arrival: EMS - [facility] ([place] [facility]) [43] EMS Treatment Prior to ED Arrival: MAT ROLLER treatment: Saline lock;IVF ED Events Date/Time Event User Comments 04/20/231943 Medical Screening Begins SERGIO APONTE MD -- 04/20/231943 First Provider Evaluation SERGIO APONTE MD -- Chief Complaint Chief Complaint Patient presents with High Blood Sugar ED Triage Notes Megan Madrigal RN 04/20/2023 19:52 Patient arrived to ED via [facility] c/o "not feeling well." [facility]SB[facility] 386 MAT ROLLER. Per patient he was diagnosed with DM five years ago and stopped taking home meds-Metformin about three years ago. Patient c/o of being weak and increased UOP. Patient was nauseous MAT ROLLER but has resolved since. HPI History provided [...] 0.01 - 0.09 10*3/uL COMP. METABOLIC PANEL (87573) - Abnormal NA 129 (*) 135 - [...] VW CBC WITH DIFF COMP. METABOLIC PANEL (92532) URINALYSIS URINE DRUG (IMMUNOASSAY) - COMPREHENSIVE DRUG SCREEN W/O REFLEX ETHANOL POCT GLUCOSE (AUTOMATED) Troponin I Prothrombin Time / INR aPTT aPTT (for use with Heparin Infusion) Ferritin Serum Iron Panel Troponin I Thyroid Stimulating Hormone Glycosylated Hemoglobin (A1C) Phosphorus Cbc with Diff Basic Metabolic Panel (NA, K, CL, CO2, GLUCOSE, BUN, CREATININE, CA) Magnesium Lipid Panel (74172)(Total Cholesterol, Triglycerides, HDL) O2 Per Protocol Orders [...] mg Procedures EKG Time 1950 Sinus tach [place] normal Intervals normal No acute ischemia Notes [...] demonstrates that he is having a silent GA. He has elevated troponin of 0.154. Please note he does not have any chest pain or shortness of breath. EKG does not demonstrate a STEMI. He was started on heparin, Plavix, and aspirin. The patient may require cardiac catheterization. The patient was transferred to [place] for further evaluation. History, physical exam findings, [...] this patient. Sergio Aponte Jr., MD Clinical Health And Safety Advisor [facility] Emergency Department [employer] is used frequently and may produce errors. Promptly contact for obvious discrepancies. Sergio Aponte MD 04/21/23 0025 [facility] EMERGENCY PHYSICIAN STAFF [facility]
[2025-01-14] MEDS ORDERED: ONDANSETRON 4 MG/2 ML VIAL ONE (01:05)
[2025-01-14] MEDS ORDERED: Ringers Lactate 1,000 ML IV ONE (01:05)
[2025-01-14 01:14] LABS: Absolute Lymphocytes (CBC) 1.2 K/uL (0.7-4.9); Hematocrit 32.5 % (39.6-49.0); Hemoglobin 11.2 g/dL (13.6-17.9); MCH 29.9 pg (27.0-35.0); MCHC 34.5 g/dL (32.0-36.0); MCV 86.6 fL (80-100); MPV 7.6 fL (7.6-11.3); Nucleated RBC Absolute Count 0.0 (0-0); Nucleated Red Blood Cells % 0.0 % (0-0); RBC Red Blood Cell Count 3.75 M/uL (4.33-5.43); White Blood Count 6.10 thou/uL (4.3-10.9)
[2025-01-14 01:38] LABS: ALT/SGPT 18.0 U/L (16-61); AST/SGOT 14.0 U/L (15-37); Albumin 2.8 g/dL (3.4-5.0); Albumin/Globulin Ratio 0.8 (1.1-1.8); Alkaline Phosphatase 124.0 U/L (45-117); Anion Gap 7.7 mEq/L (5.0-15.0); BUN Blood Urea Nitrogen 21.0 mg/dL (7-18); Globulin 3.3 g/dL (2.3-3.5); Glucose Level 374.0 mg/dL (74-106); Lipase 95.0 U/L (13-75); Potassium 3.7 mEq/L (3.5-5.1)
--- NOTE | 2025-01-14 03:54 | ER ---
Nurse's Notes [facility] Name: Johnnie Maldonado Age: 59 yrs Sex: Male : 1965 Arrival Date: 01/14/2025 Time: 00:52 Bed 2 Private MD: Diagnosis: Type 2 diabetes mellitus with hyperglycemia;Nausea Presentation: 01/14 00:56 Chief complaint: Patient states: nausea X30 min. Coronavirus screen: Client denies lg3 travel out of the [place] in the last 14 days. At this time, the client does not indicate any symptoms associated with coronavirus-19. Ebola Screen: No symptoms or risks identified at this time. Initial Sepsis Screen: Does the patient meet any 2 criteria? No. Patient's initial sepsis screen is negative. Does the patient have a suspected source of infection? No. Patient's initial sepsis screen is negative. Risk Assessment: Do you want to hurt yourself or someone else? Patient reports no desire to harm self or others. Onset of symptoms was January 14, 2025. 00:56 Method Of Arrival: EMS: [facility] 3 00:56 Acuity: DONTE 3 lg3 Triage Assessment: 00:57 General: Appears in no apparent distress. comfortable, Behavior is calm, cooperative. lg3 General: Appears unkempt. Pain: Denies pain. EENT: No deficits noted. No signs and/or symptoms were reported regarding the EENT system. Neuro: No deficits noted. Millan Agitation-Sedation Scale (RASS): 0 - Alert and Calm Level of Consciousness is awake, alert, obeys commands, Oriented to person, place, time, situation. Cardiovascular: No deficits noted. Denies chest pain, shortness of breath, Capillary refill < 3 seconds Clubbing of nail beds is absent JVD is absent Patient's skin is warm and dry. Respiratory: No deficits noted. Airway is patent Respiratory effort is even, unlabored, Respiratory pattern is regular, symmetrical. GI: Abdomen is round non-distended, Bowel sounds present X 4 quads. Abd is soft and non tender X 4 quads. Reports nausea. : No signs and/or symptoms were reported regarding the genitourinary system. Derm: No deficits noted. No signs and/or symptoms reported regarding the dermatologic system. Skin is intact, is healthy with good turgor, Skin is dry, Skin is normal, Skin temperature is warm. Musculoskeletal: No deficits noted. No signs and/or symptoms reported regarding the musculoskeletal system. Circulation, motion, and sensation intact. Range of motion: intact in all extremities. Historical: - Allergies: 00:57 No Known Allergies; lg3 - Home Meds: 00:57 None [Active]; lg3 - PMHx: 00:57 diabetes mellitus; Hypertensive disorder; raynaud's; Urinary incontinence; lg3 - PSHx: 00:57 right arm; lg3 - Immunization history:: Adult Immunizations up to date. - Infectious Disease History:: Denies. - Social history:: Smoking status: Patient denies any tobacco usage or history of. Patient/guardian denies using alcohol, street drugs. Screenin:00 [facility] ED Fall Risk Assessment (Adult) History of falling in the last 3 months, lg3 including since admission No falls in past 3 months (0 pts) Confusion or Disorientation No (0 pts) Intoxicated or Sedated No (0 pts) Impaired Gait No (0 pts) Mobility Assist Device Used No (0 pt) Altered Elimination No (0 pt) Score/Fall Risk Level 0 - 2 = Low Risk Oriented to surroundings, Maintained a safe environment, Educated pt \T\ family on fall prevention, incl call for assistance when getting out of bed, Assessed \T\ reinforced patient's understanding of fall precautions. Abuse screen: Denies threats or abuse. Denies injuries from another. Nutritional screening: No deficits noted. Tuberculosis screening: No symptoms or risk factors identified. Assessment: 01:00 General: see triage assessment. GI: Abdomen is round non-distended, Bowel sounds lg3 present X 4 quads. Abd is soft and non tender X 4 quads. Reports nausea. 02:13 Reassessment: Patient appears in no apparent distress at this time. No changes from lg3 previously documented assessment. Patient and/or family updated on plan of care and expected duration. Pain level reassessed. Patient is alert, oriented x 3, equal unlabored respirations, skin warm/dry/pink. 04:04 Reassessment: Patient appears in no apparent distress at this time. No changes from lg3 previously documented assessment. Patient and/or family updated on plan of care and expected duration. Pain level reassessed. Patient is alert, oriented x 3, equal unlabored respirations, skin warm/dry/pink. Patient denies pain at this time. Patient states feeling better. Patient states symptoms have improved. Vital Signs: 00:56 BP 176 / 82; Pulse 80; Resp 16 S; Temp 97.5(O); Pulse Ox 99% on R/A; Weight 46.27 kg lg3 (R); Height 5 ft. 3 in. (R); Pain 0/10; 03:13 BP 144 / 80; Pulse 81; Resp 17; Pulse Ox 99% on R/A; mf3 04:04 BP 174 / 92; Pulse 83; Resp 18; Pulse Ox 97% on R/A; lg3 00:56 Body Mass Index 18.07 (46.27 kg, 160.02 cm) lg3 00:56 Pain Scale: Adult lg3 ED Course: 00:54 Patient arrived in ED. kmf 00:54 Moises Nicholas DO is Attending Physician. tt7 00:55 Luba Baltazar RN is Primary Nurse. lg3 00:57 Triage completed. lg3 00:57 Arm band placed on right wrist. lg3 01:00 Patient has correct armband on for positive identification. Placed in gown. Bed in low lg3 position. Call light in reach. Side rails up X 1. Client placed on continuous cardiac and pulse oximetry monitoring. NIBP monitoring applied. Door closed. Noise minimized. Warm blanket given. Pillow given. 01:00 Maintain EMS IV. Dressing intact. Good blood return noted. Site clean \T\ dry. Gauge \T\ lg 3 site: 20 LAC. Flushed with 10 mL NS. 01:11 Lipase Sent. lg3 01:11 CMP Sent. lg3 01:11 CBC with Diff Sent. lg3 04:07 No provider procedures requiring assistance completed. IV discontinued, intact, lg3 bleeding controlled, No redness/swelling at site. Pressure dressing applied. 04:11 Provided Education on: pt educated on discharge. 3 Administered Medications: 01:11 Drug: Ondansetron IVP 4 mg IVP once; over 2 minutes Route: IVP; Site: left antecubital; lg3 02:13 Follow up: Response: No adverse reaction; Marked relief of symptoms lg3 01:11 Drug: Ringers - Lactated Ringers Solution IV 1000 ml IV at bolus bolus; to be given as lg3 a bolus over 60 minutes Route: IV; Rate: bolus; Site: left antecubital; 02:13 Follow up: Response: No adverse reaction; IV Status: Completed infusion; IV Intake: lg3 1000ml Medication: 01:00 VIS not applicable for this client. lg3 Intake: 02:13 IV: 1000ml; Total: 1000ml. lg3 Output: 03:48 Urine: 1600ml (Voided); Total: 1600ml. cp4 Outcome: 03:53 Discharge ordered by . tt7 04:07 Discharged to home ambulatory, lg3 04:07 Condition: stable 04:07 Discharge instructions given to patient, Instructed on discharge instructions, follow up and referral plans. medication usage, Demonstrated understanding of instructions, follow-up care, medications, Prescriptions given X 1, 04:12 Patient left the ED. mf3 Signatures: Luba Baltazar RN RN lg3 Veronica Gonzalez cp4 Vickie Corral [facility] Giselle Talavera RN RN 3 Moises Nicholas DO DO tt7 Corrections: (The following items were deleted from the chart) 00:58 00:57 Home Meds: metformin 1 Oral tablet 1 tab daily; lg3 lg3
--- NOTE | 2025-01-14 03:54 | EDPHYS ---
Physician Documentation [facility] Name: Johnnie Maldonado Age: 59 yrs Sex: Male : 1965 Arrival Date: 01/14/2025 Time: 00:52 Bed 2 Private MD: ED Physician Moises Nicholas HPI: 01/14 01:04 This 59 yrs old Male presents to ER via EMS with complaints of Nausea. tt7 01:04 Patient is complaining of nausea which started 30 minutes prior to arrival, no tt7 vomiting. He reports feeling generally weak and unwell since yesterday. He is not having any pain. He reports history of diabetes and has been taking his metformin, but has not been taking his other diabetic medications. He denies being prescribed insulin. He reports he has cut back on drinking sodas and is trying to manage his diabetes with drinking plenty of water. Historical: - Allergies: 00:57 No Known Allergies; lg3 - Home Meds: 00:57 None [Active]; lg3 - PMHx: 00:57 diabetes mellitus; Hypertensive disorder; raynaud's; Urinary incontinence; lg3 - PSHx: 00:57 right arm; lg3 - Immunization history:: Adult Immunizations up to date. - Infectious Disease History:: Denies. - Social history:: Smoking status: Patient denies any tobacco usage or history of. Patient/guardian denies using alcohol, street drugs. Vital Signs: 00:56 BP 176 / 82; Pulse 80; Resp 16 S; Temp 97.5(O); Pulse Ox 99% on R/A; Weight 46.27 kg lg3 (R); Height 5 ft. 3 in. (R); Pain 0/10; 03:13 BP 144 / 80; Pulse 81; Resp 17; Pulse Ox 99% on R/A; mf3 04:04 BP 174 / 92; Pulse 83; Resp 18; Pulse Ox 97% on R/A; lg3 00:56 Body Mass Index 18.07 (46.27 kg, 160.02 cm) lg3 00:56 Pain Scale: Adult lg3 MDM: 00:54 Medical Screening Exam initiated tt7 01/14 01:00 Order name: CBC with Diff; Complete Time: 01:53 tt7 01/14 01:00 Order name: CMP; Complete Time: 01:53 tt7 01/14 01:00 Order name: Lipase; Complete Time: :53 tt7 01/14 01:20 Order name: Glucose, Ancillary Testing; Complete Time: :53 EDMS 01/14 03:53 Order name: Glucose, Ancillary Testing EDAK 01/14 03:56 Order name: Glucose, Ancillary Testing EDAK 01/14 01:00 Order name: IV Saline Lock; Complete Time: 01:11 tt7 01/14 01:00 Order name: Labs collected and sent; Complete Time: 01:11 tt7 Administered Medications: 01:11 Drug: Ondansetron IVP 4 mg IVP once; over 2 minutes Route: IVP; Site: left antecubital; lg3 02:13 Follow up: Response: No adverse reaction; Marked relief of symptoms lg3 01:11 Drug: Ringers - Lactated Ringers Solution IV 1000 ml IV at bolus bolus; to be given as lg3 a bolus over 60 minutes Route: IV; Rate: bolus; Site: left antecubital; 02:13 Follow up: Response: No adverse reaction; IV Status: Completed infusion; IV Intake: lg3 1000ml Disposition Summary: 01/14/25 03:53 Discharge Ordered Notes: Location: Home tt7 Problem: chronic tt7 Symptoms: have improved tt7 Condition: Stable tt7 Diagnosis - Type 2 diabetes mellitus with hyperglycemia tt7 - Nausea tt7 Followup: tt7 - With: Emergency Department - When: As needed - Reason: Followup: tt7 - With: Private Physician - When: 1 - 2 days - Reason: Recheck today's complaints, Continuance of care, Re-evaluation by your physician Discharge Instructions: - Discharge Summary Sheet tt7 - Type 2 Diabetes Mellitus, Diagnosis, Adult tt7 - Hyperglycemia tt7 Forms: - Medication Reconciliation Form tt7 - Antibiotic Education tt7 - Prescription Opioid Use tt7 - Patient Portal Instructions tt7 - Leadership Thank You Letter tt7 Prescriptions: - Zofran 4 mg Oral tablet - take 1 tablet ORAL route every 8 hours As needed; 20 tablet; Refills: 0, tt7 Product Selection Permitted Signatures: Dispatcher [employer] Luba Fernandez RN RN lg3 Moises Nicholas DO DO tt7 Corrections: (The following items were deleted from the chart) 00:58 00:57 Home Meds: metformin 1 Oral tablet 1 tab daily; lg3 lg3
[2025-01-14 04:22] VITALS: TEMP 97.5
[2025-01-14 04:25] VITALS: BP 174/92; O2SAT 97
== END 2025-01-14 04:12 | disposition home or self-care (01) ==
LOC: ER 00:52
DX: E11.65 Type 2 diabetes mellitus with hyperglycemia (principal); R11.0 Nausea; R53.1 Weakness; E11.9 Type 2 diabetes mellitus without complications; I10 Essential (primary) hypertension
CPT/HCPCS: 36415; 80053; 82947; 83690; 85025; 96365; 96375; 99284; J2405; J7120